=== PATIENT | female | born 1975 | race African-American/Black ===

== ENCOUNTER 2017-01-18 00:11 | Inpatient (IN) | payer MEDICAID ==
[2017-01-18] VITALS (21 sets, daily range): BP systolic 91–158; BP diastolic 60–102
[~2017-01-18] VITALS: Ht 182.9 cm; Wt 59.0 kg
[2017-01-18 01:03] LABS: ABG PCO2 26.2 mmHg (35.0-45.0)
[2017-01-18 01:03] LABS: MEAN CORPUSCULAR HEMOGLOBIN 29.6 PG (27.0-31.0); MEAN CORPUSCULAR HGB CONC 31.7 G/DL (32.0-36.0); MEAN CORPUSCULAR VOLUME 93 FL (80-99); MEAN PLATELET VOLUME 7.9 FL (6.5-10.1); PLATELET COUNT 343 K/UL (150-450); RED BLOOD COUNT 3.91 M/UL (4.20-5.40); RED CELL DISTRIBUTION WIDTH 13.1 % (11.6-14.8); WHITE BLOOD COUNT 14.2 K/UL (4.8-10.8)
[2017-01-18 01:04] LABS: ABG ALLEN TEST POSITIVE; ABG BASE EXCESS -8.1
[2017-01-18 01:15] LABS: APPEARANCE,URINE CLEAR; KETONES,URINE 4+ (NEGATIVE); LEUKOCYTE ESTERASE ,URINE NEGATIVE (NEGATIVE); NITRITE,URINE NEGATIVE (NEGATIVE); PH,URINE 5 (4.5-8.0); UROBILINOGEN,URINE NORMAL MG/DL (0.0-1.0)
[2017-01-18 01:20] LABS: PROTEIN,URINE NEGATIVE (NEGATIVE)
[2017-01-18 01:21] LABS: ALBUMIN/GLOBULIN RATIO 0.8 (1.0-2.7); CALCIUM 10.5 mg/dL (8.6-10.2); CREATININE 1.5 mg/dL (0.5-0.9); GLOMERULAR FILTRATION RATE 46.9 mL/min (>60); POTASSIUM 5.5 mEQ/L (3.4-4.9); TOTAL PROTEIN 9.1 g/dL (6.6-8.7)
--- NOTE | 2017-01-18 03:32 | Emergency Room Report ---
History of Present Illness General Chief Complaint: Abdominal Pain Source: Patient, Family Member, EMS Present Illness HPI Is a 41-year-old female with history of diabetes, currently on insulin. She was in [place] for 5 years. She has multiple admission to the hospital for uncontrolled diabetes and DKA. According to her father, she [facility]. Her elderly and can't take care of her anymore. This is why she moves back to [place] to live with her parents. She presents with chief complaint of abdominal pain with vomiting. Unable to keep anything down for 3 days. No diarrhea. Has not taking her medicine. Denies any other complaint. Multiple admissions for the same. Denies any alcohol drugs. Pain is 10 out of 10. Cramping in nature. Allergies: Coded Allergies: No Known Allergies (Verified , NONE, 10/30/05) Patient History Past Medical History: DM Past Surgical History: other Pertinent Family History: none Social History: Reports: drug use - history of Now: No Immunizations: other Reviewed Nursing Documentation: PMH: Agreed, PSxH: Agreed Nursing Documentation-PMH Hx Diabetes: Yes Hx Gastrointestinal Problems: Yes - PANCREATITIS Review of Systems Eye: Denies: blurred vision, eye pain ENT: Denies: ear pain, nose congestion, throat swelling Respiratory: Denies: cough, shortness of breath Cardiovascular: Denies: chest pain, palpitations Gastrointestinal: Reports: abdominal pain, nausea, vomiting, Denies: diarrhea Musculoskeletal: Denies: back pain, joint pain Skin: Denies: rash Neurological: Denies: headache, numbness Endocrine: Denies: increased thirst, increased urine Hematologic/Lymphatic: Denies: easy bruising All Other Systems: negative except mentioned in HPI Physical Exam Vital Signs Date Time Temp Pulse Resp B/P Pulse Ox O2 Delivery O2 Flow Rate FiO2 01/18/17 00:19 98.2 93 18 135/91 97 Room Air vitals normal Sp02 EP Interpretation: reviewed, normal General Appearance: no apparent distress, alert, Chronically Ill Head: normocephalic, atraumatic Eyes: bilateral eye EOMI, bilateral eye PERRL ENT: hearing grossly normal, normal pharynx Neck: full range of motion, supple, no meningismus Respiratory: chest non-tender, lungs clear, normal breath sounds Cardiovascular #1: regular rate, rhythm, no murmur Gastrointestinal: normal bowel sounds, no mass, no organomegaly, no bruit, non- distended, tenderness - Diffuse Musculoskeletal: back normal, gait/station normal, normal range of motion Psychiatric: mood/affect normal Skin: warm/dry Medical Decision Making Diagnostic Impression: Primary Impression: Hyperglycemia due to type 1 diabetes mellitus Additional Impressions: Metabolic acidosis Dehydration, severe Abdominal pain Qualified Codes: R10.84 - Generalized abdominal pain Gastroparesis due to DM Intractable vomiting with nausea Qualified Codes: R11.2 - Nausea with vomiting, unspecified Anemia in chronic illness Acute hyperkalemia ER Course Patient presents exacerbation of chronic abdominal pain with vomiting. Her blood sugars extremely high. This is probably secondary to gastroparesis. She is acidotic from vomiting and dehydration. She's hyperglycemic. However she is not in DKA. PH is normal. Blood sugar came down with insulin. We'll repeat chemistry after IV fluid. Prognosis is poor probably secondary to noncompliance and questionable drug use. She has a history of cocaine. Her drug screen is negative here however. This may be the fact that she just came from [place] yesterday. According to her father, she is in the hospital every week. I see no evidence of acute abdomen, obstruction, infection to name a few. Will admit for the hospital for further hydration and blood sugar control. She may need to be admitted to half-way if she is unable to care for herself or her family unable to care for her. Laboratory Tests Test 01/18/17 00:50 01/18/17 01:00 01/18/17 01:04 White Blood Count 14.2 K/UL (4.8-10.8) H Red Blood Count 3.91 M/UL (4.20-5.40) L Hemoglobin 11.6 G/DL (12.0-16.0) L Hematocrit 36.5 % (37.0-47.0) L Mean Corpuscular Volume 93 FL (80-99) Mean Corpuscular Hemoglobin 29.6 PG (27.0-31.0) Mean Corpuscular Hemoglobin Concent 31.7 G/DL (32.0-36.0) L Red Cell Distribution Width 13.1 % (11.6-14.8) Platelet Count 343 K/UL (150-450) Mean Platelet Volume 7.9 FL (6.5-10.1) Neutrophils (%) (Auto) % (45.0-75.0) Lymphocytes (%) (Auto) % (20.0-45.0) Monocytes (%) (Auto) % (1.0-10.0) Eosinophils (%) (Auto) % (0.0-3.0) Basophils (%) (Auto) % (0.0-2.0) Sodium Level 140 mEQ/L (135-145) Potassium Level 5.5 mEQ/L (3.4-4.9) H Chloride Level 88 mEQ/L (98-107) L Carbon Dioxide Level 17 mEQ/L (20-30) L Anion Gap 35 (5-15) H Blood Urea Nitrogen 20 mg/dL (7-23) Creatinine 1.5 mg/dL (0.5-0.9) H Estimat Glomerular Filtration Rate 46.9 mL/min (>60) Glucose Level 605 mg/dL (74-106) *H Calcium Level 10.5 mg/dL (8.6-10.2) H Total Bilirubin 0.5 mg/dL (0.0-1.2) Aspartate Amino Transf (AST/SGOT) 12 U/L (5-40) Alanine Aminotransferase (ALT/SGPT) 8 U/L (3-33) Alkaline Phosphatase 153 U/L (35-104) H Total Protein 9.1 g/dL (6.6-8.7) H Albumin 4.3 g/dL (3.5-5.2) Globulin 4.8 g/dL Albumin/Globulin Ratio 0.8 (1.0-2.7) L Lipase 7 U/L (< 60) Arterial Blood pH 7.380 (7.350-7.450) Arterial Blood Partial Pressure CO2 26.2 mmHg (35.0-45.0) L Arterial Blood Partial Pressure O2 78.7 mmHg (75.0-100.0) Arterial Blood HCO3 15.4 mmol/L (22.0-26.0) L Arterial Blood Oxygen Saturation 94.5 % (92.0-98.0) Arterial Blood Base Excess -8.1 Michael Test Positive Urine Color Pale yellow Urine Appearance Clear Urine pH 5 (4.5-8.0) Urine Specific [place] 1.010 (1.005-1.035) Urine Protein Negative (NEGATIVE) Urine Glucose (UA) 4+ (NEGATIVE) H Urine Ketones 4+ (NEGATIVE) H Urine Occult Blood Negative (NEGATIVE) Urine Nitrite Negative (NEGATIVE) Urine Bilirubin Negative (NEGATIVE) Urine Urobilinogen Normal MG/DL (0.0-1.0) Urine Leukocyte Esterase Negative (NEGATIVE) Urine HCG, Qualitative Negative Urine Opiates Screen Negative (NEGATIVE) Urine Barbiturates Screen Negative (NEGATIVE) Phencyclidine (PCP) Screen Negative (NEGATIVE) Urine Amphetamines Screen Negative (NEGATIVE) Urine Benzodiazepines Screen Negative (NEGATIVE) Urine Cocaine Screen Negative (NEGATIVE) Urine Marijuana (THC) Screen Negative (NEGATIVE) Lab Results Impression labs with acidosis and hyperglycemia EKG Diagnostic Results Rate: normal Rhythm: NSR ST Segments: no acute changes Rhythm Strip Diag. Results EP Interpretation: yes Rate: 92 Rhythm: NSR, no PVC's, no ectopy Chest X-Ray Diagnostic Results EP Interpretation: Yes Findings: no consolidation, no effusion, no pneumothorax, no acute cardiopulmonary disease Number of Views: 1 Last Vital Signs Date Time Temp Pulse Resp B/P Pulse Ox O2 Delivery O2 Flow Rate FiO2 01/18/17 02:22 97.5 91 18 139/86 96 Room Air Status: improved Disposition: ADMITTED INPATIENT Condition: Critical Referrals: NOT CHOSEN IPA/,REFERRING (PCP) LETICIA MORENO M.D. Jan 18, 2017 03:32
[2017-01-18] MEDS ORDERED: Potassium Chloride 10 MEQ in NS 1000ml 1,000 ML IV SCH (04:45)
[2017-01-18 05:17] LABS: CALCIUM 9.2 mg/dL (8.6-10.2); CARBON DIOXIDE 13 mEQ/L (20-30); CHLORIDE 101 mEQ/L (98-107); CREATININE 1.2 mg/dL (0.5-0.9); GLOMERULAR FILTRATION RATE > 60 mL/min (>60); HEMOLYSIS 9; SODIUM 145 mEQ/L (135-145)
[2017-01-18 05:36] LABS: ANION GAP 31 (5-15); POTASSIUM 7.8 mEQ/L (3.4-4.9)
[2017-01-18] MEDS ORDERED: UNOBMED (05:37)
[2017-01-18] MEDS ORDERED: Calcium Gluconate 1gm/10ml vial IVP ONE (05:45)
[2017-01-18] MEDS ORDERED: Sodium Polystyrene Sulfonate 15gm Powder ORAL ONE (05:45)
[2017-01-18] MEDS ORDERED: Sodium Bicarbonate 8.4% 50ml Inj IV ONE (05:45)
[2017-01-18] MEDS ORDERED: Insulin Rate Change 1 Each MISC PRN (08:00)
--- NOTE | 2017-01-18 09:32 | History & Physical ---
History and Physical History & Physicial .[facility] # [id number] KISHORE RICKETTS Jan 18, 2017 09:32
[2017-01-18 10:25] LABS: HEMOGLOBIN A1C 10.5 % (< 6.0)
[2017-01-18 10:35] LABS: CALCIUM 9.9 mg/dL (8.6-10.2); CREATININE 1.3 mg/dL (0.5-0.9); GLOMERULAR FILTRATION RATE 55.3 mL/min (>60); POTASSIUM 4.5 mEQ/L (3.4-4.9)
[2017-01-18] MEDS: Levofloxacin 500mg tab ORAL SCH (10:57)
--- NOTE | 2017-01-18 10:57 | Diagnostic Imaging Report ---
Indication: Chest Pain Comparison: 02/27/12 A single view chest radiograph was obtained. Findings: Cardiomediastinal appearance is within normal limits for age. Pulmonary vascularity is appropriate. The diaphragmatic contour is smooth and costophrenic angles are sharp. No pleural effusions are identified. The bones are unremarkable. [place] foreign bodies projected over the right shoulder and chest wall. Impression: No acute findings
[2017-01-18] MEDS ORDERED: LORazepam Inj 2mg/ml 1ml ONE (12:44)
[2017-01-18] MEDS: D5 1/2NS 1,000 ML IV SCH (14:03)
[2017-01-18] MEDS: LORazepam Inj 2mg/ml 1ml IV PRN ×3 (14:03→22:20)
--- NOTE | 2017-01-18 17:28 | History and Physical Report ---
DATE OF ADMISSION: 01/18/2017 CHIEF COMPLAINT: Diarrhea and not able to eat. HISTORY OF PRESENT ILLNESS: This is a 41-year-old female with history of type 1 diabetes mellitus. She is on insulin, she does not know the dose of the insulin and is a poor historian . Apparently, she moved to [place] to be with the family prior to that she was in [place] and reportedly in another group home. She said that she has not been able to eat for the past three days. She complained of abdominal pain as well as vomiting and also diarrhea. She said she takes her insulin, but the ER notes states that she was not taking it. In any event, the patient was seen in the emergency room and was found to have initial blood sugar of 605, with a BUN of 20, creatinine 1.5, potassium was 5.5, and bicarbonate was 17. The following laboratories blood count, hemoglobin was low at 13. She had ABG, which showed pH 7.3, pCO2 of 26, and pO2 of 78. The patient toxicology screen was negative. The patient was diagnosed with uncontrolled diabetes and was started on insulin drip and admitted to intensive care unit although looking at the records I think this is diabetic ketoacidosis. PAST MEDICAL HISTORY: The patient denies any other medical problems, except diabetes. ALLERGIES: No known drug allergies. SOCIAL HISTORY: The patient smokes a pack a day. No history of alcohol abuse. REVIEW OF SYSTEMS: As above. PHYSICAL EXAMINATION: GENERAL: The patient is a cachectic looking female and does not talk too much. VITAL SIGNS: Blood pressure 158/81, pulse 92, temperature 98.0 degrees, and respiratory rate is 22. HEENT: [employer] conjunctivae. Anicteric sclerae. NECK: Supple. LUNGS: Clear to auscultation. HEART: S1, S2 without murmurs or rubs. ABDOMEN: Soft and nontender. EXTREMITIES: No cyanosis or edema. LABORATORY FINDINGS: CBC shows WBC of 14.2, hematocrit 36.2, hemoglobin is 11.6, and platelets 343,000. Chemistry panel shows serum sodium 145, potassium 7.8, chloride 101, CO2 13, BUN 19, creatinine 1.2, blood sugar is 353, and calcium is 9.2. ASSESSMENT: This is a 41-year-old female who was admitted with diabetic ketoacidosis ( the ER physician did not think the patient as diabetic ketoacidosis). The patient has an elevated anion gap although. The pH is not very acidotic. There is some respiratory compensation and pCO2 is down. I think likely the patient has metabolic acidosis. The patient has also acute renal failure as a result of prerenal azotemia. She had a potassium level, which was 7.8, but it is likely not related to values, there was hemolysis of 7.8, which I am not sure is correct because initial was 5.5, and the patient was on insulin so I expect the potassium to go down and not up. PLAN: The patient will be on IV fluids. She is currently on IV insulin per protocol. Once the blood sugar drops below 300, we will switch her to D5 half-normal saline and we will continue the insulin until the anion gap is closed and also the patient has some leukocytosis and cough so she may have some acute bronchitis. We will start on Levaquin and the case was discussed with the RN. Simon Oneill M.D. DR: Tanvi JOB#: [id number] CC: ALICIA
[2017-01-18] MEDS: Insulin Rate Change 1 Each MISC PRN ×6 (18:08→23:04)
[2017-01-18 18:45] LABS: ANION GAP 29 (5-15); CALCIUM 9.6 mg/dL (8.6-10.2); CARBON DIOXIDE 17 mEQ/L (20-30); CHLORIDE 104 mEQ/L (98-107); CREATININE 1.2 mg/dL (0.5-0.9); GLOMERULAR FILTRATION RATE > 60 mL/min (>60); HEMOLYSIS 4; POTASSIUM 4.1 mEQ/L (3.4-4.9); SODIUM 150 mEQ/L (135-145)
[2017-01-19] VITALS (28 sets, daily range): BP systolic 92–168; BP diastolic 35–102
[2017-01-19] MEDS: D5 1/2NS 1,000 ML IV SCH ×4 (00:18→22:10)
[2017-01-19] MEDS: Insulin Rate Change 1 Each MISC PRN ×15 (00:26→22:16)
[2017-01-19 05:49] LABS: CALCIUM 9.5 mg/dL (8.6-10.2); CREATININE 1.3 mg/dL (0.5-0.9); GLOMERULAR FILTRATION RATE 55.3 mL/min (>60)
[2017-01-19 06:01] LABS: ANION GAP 25 (5-15); CALCIUM 9.5 mg/dL (8.6-10.2); CARBON DIOXIDE 20 mEQ/L (20-30); CHLORIDE 106 mEQ/L (98-107); CREATININE 1.2 mg/dL (0.5-0.9); GLOMERULAR FILTRATION RATE > 60 mL/min (>60); HEMOLYSIS 2; MAGNESIUM 1.4 mg/dL (1.7-2.5); PHOSPHORUS 2.5 mg/dL (2.5-4.8); SODIUM 151 mEQ/L (135-145)
[2017-01-19] MEDS: Levofloxacin 500mg tab ORAL SCH (09:30)
--- NOTE | 2017-01-19 14:31 | General Progress Note ---
Assessment/Plan Problem List: (1) ARF (acute renal failure) ICD Codes: N17.9 - Acute kidney failure, unspecified SNOMED: 57013978 (2) DKA (diabetic ketoacidoses) ICD Codes: E13.10 - Other specified diabetes mellitus with ketoacidosis without coma SNOMED: 79078843, 007621511 (3) Intractable vomiting with nausea ICD Codes: R11.2 - Nausea with vomiting, unspecified SNOMED: 959909837, 625033141 Qualifiers: Qualified Codes: R11.2 - Nausea with vomiting, unspecified (4) Gastroparesis due to DM ICD Codes: E11.43 - Type 2 diabetes mellitus with diabetic autonomic (poly) neuropathy; K31.84 - Gastroparesis SNOMED: 583777877, 41881119 (5) Dehydration, severe ICD Codes: E86.0 - Dehydration SNOMED: 113458598, 723734087 Assessment/Plan change to algorithm 2 increase IVF Discussed with RN Subjective Allergies: Coded Allergies: No Known Allergies (Verified , NONE, 10/30/05) Subjective still nauseated Objective Last 24 Hour Vital Signs Date Time Temp Pulse Resp B/P Pulse Ox O2 Delivery O2 Flow Rate FiO2 01/19/17 14:01 90 19 121/81 99 Room Air 01/19/17 13:00 98.0 89 19 147/99 99 Room Air 01/19/17 12:00 95 01/19/17 12:00 93 16 159/102 99 Room Air 01/19/17 11:00 95 15 160/100 99 Room Air 01/19/17 10:08 93 18 139/89 99 Room Air 01/19/17 09:00 88 18 107/44 99 Room Air 01/19/17 08:45 94 18 104/47 96 Room Air 01/19/17 08:30 95 18 112/65 96 Room Air 01/19/17 08:15 91 18 109/66 96 Room Air 01/19/17 08:00 88 01/19/17 08:00 98.2 88 18 142/85 96 Room Air 01/19/17 07:00 91 18 111/65 96 Room Air 01/19/17 06:23 92 18 147/90 96 Room Air 01/19/17 06:00 92 18 140/90 96 Room Air 01/19/17 05:00 86 18 140/90 96 Room Air 01/19/17 04:00 88 18 126/85 96 Room Air 01/19/17 03:00 87 18 110/80 96 Room Air 01/19/17 02:00 83 18 95/72 96 Room Air 01/19/17 01:00 95 18 164/100 96 Room Air 01/19/17 00:00 85 01/19/17 00:00 98.2 94 18 107/82 96 Room Air 01/18/17 23:07 80 18 91/60 96 Room Air 01/18/17 22:00 91 18 143/85 98 Room Air 01/18/17 21:00 95 18 132/98 98 Room Air 01/18/17 20:30 96 01/18/17 20:00 98.2 96 20 146/78 98 Room Air 01/18/17 19:04 97 20 143/82 98 Room Air 01/18/17 18:02 99 20 147/89 98 Room Air 01/18/17 17:00 99 20 132/82 98 Room Air 01/18/17 16:00 98.0 99 20 135/69 98 Room Air 01/18/17 15:00 99 20 147/102 98 Room Air Intake and Output 01/18/17 01/19/17 19:00 07:00 Intake Total 1012.4 ml 1218.0 ml Output Total 2960 ml 1060 ml Balance -1947.6 ml 158.0 ml Intake Oral 0 ml 0 ml IV Total 1012.4 ml 1218.0 ml Output Urine Total 2960 ml 1060 ml # Bowel Movements 1 Laboratory Tests 01/18/17 18:08: Sodium Level 150H, Potassium Level 4.1, Chloride Level 104, Carbon Dioxide Level 17L, Anion Gap 29H, Blood Urea Nitrogen 15, Creatinine 1.2H, Estimat Glomerular Filtration Rate > 60, Glucose Level 233H, Calcium Level 9.6 01/19/17 04:10: Sodium Level 151H, Potassium Level 3.0L, Chloride Level 106, Carbon Dioxide Level 20, Anion Gap 25H, Blood Urea Nitrogen 14, Creatinine 1.2H, Estimat Glomerular Filtration Rate > 60, Glucose Level 236H, Calcium Level 9.5, Phosphorus Level 2.5, Magnesium Level 1.4L, Albumin 3.6 Height (Feet): 6 Height (Inches): 6.00 Weight (Pounds): 130 Cardiovascular: normal rate Respiratory/Chest: lungs clear KISHORE RICKETTS Jan 19, 2017 14:31
[2017-01-19] MEDS ORDERED: D5 1/2NS 1000ml IV ONE (16:20)
[2017-01-19] MEDS ORDERED: Tubing IV Secondary IV ONE (16:20)
[2017-01-19] MEDS: LORazepam Inj 2mg/ml 1ml IV PRN (17:22)
[2017-01-19 21:06] LABS: ANION GAP 17 (5-15); CALCIUM 9.3 mg/dL (8.6-10.2); CARBON DIOXIDE 26 mEQ/L (20-30); CHLORIDE 107 mEQ/L (98-107); CREATININE 1.1 mg/dL (0.5-0.9); GLOMERULAR FILTRATION RATE > 60 mL/min (>60); HEMOLYSIS 12; POTASSIUM 2.9 mEQ/L (3.4-4.9); SODIUM 150 mEQ/L (135-145)
[2017-01-20] VITALS (18 sets, daily range): BP systolic 104–182; BP diastolic 16–106
[2017-01-20] MEDS: Insulin Rate Change 1 Each MISC PRN ×3 (00:08→04:15)
[2017-01-20] MEDS: D5 1/2NS 1,000 ML IV SCH ×2 (04:20→05:17)
[2017-01-20 05:01] LABS: ANION GAP 18 (5-15); CALCIUM 8.6 mg/dL (8.6-10.2); CARBON DIOXIDE 24 mEQ/L (20-30); CHLORIDE 102 mEQ/L (98-107); GLOMERULAR FILTRATION RATE > 60 mL/min (>60); HEMOLYSIS 8; POTASSIUM 3.1 mEQ/L (3.4-4.9); SODIUM 144 mEQ/L (135-145)
[2017-01-20] MEDS: Levofloxacin 500mg tab ORAL SCH (09:10)
[2017-01-20] MEDS ORDERED: Levemir Flexpen SUBQ SCH (10:30)
[2017-01-20] MEDS ORDERED: D5 1/2NS 1000ml IV ONE (10:50)
[2017-01-20] MEDS: LORazepam Inj 2mg/ml 1ml IV PRN (11:23)
[2017-01-20] MEDS: NovoLOG Insulin Flexpen SUBQ SCH ×5 (11:30→21:00)
--- NOTE | 2017-01-20 13:28 | General Progress Note ---
Assessment/Plan Problem List: (1) ARF (acute renal failure) ICD Codes: N17.9 - Acute kidney failure, unspecified SNOMED: 78217571 (2) DKA (diabetic ketoacidoses) ICD Codes: E13.10 - Other specified diabetes mellitus with ketoacidosis without coma SNOMED: 57219531, 257159000 (3) Intractable vomiting with nausea ICD Codes: R11.2 - Nausea with vomiting, unspecified SNOMED: 438267943, 952705500 Qualifiers: Qualified Codes: R11.2 - Nausea with vomiting, unspecified (4) Gastroparesis due to DM ICD Codes: E11.43 - Type 2 diabetes mellitus with diabetic autonomic (poly) neuropathy; K31.84 - Gastroparesis SNOMED: 294524261, 15619414 (5) Dehydration, severe ICD Codes: E86.0 - Dehydration SNOMED: 676606570, 010962892 Assessment/Plan DC IV isulin DC IVF SSI start Levemir Replete K Discussed with RN Subjective Allergies: Coded Allergies: No Known Allergies (Verified , NONE, 10/30/05) Subjective feels better Objective Last 24 Hour Vital Signs Date Time Temp Pulse Resp B/P Pulse Ox O2 Delivery O2 Flow Rate FiO2 01/20/17 12:58 79 17 158/94 100 Room Air 01/20/17 12:26 76 172/106 01/20/17 12:22 71 13 172/106 100 Room Air 01/20/17 12:03 73 01/20/17 11:52 97.1 72 19 182/104 100 Room Air 01/20/17 11:06 80 19 165/103 100 Room Air 01/20/17 10:08 78 18 100 Room Air 01/20/17 09:03 72 13 154/92 100 Room Air 01/20/17 07:58 70 01/20/17 07:56 97.5 70 15 158/97 100 Room Air 01/20/17 07:06 68 14 161/90 99 Room Air 01/20/17 06:00 71 14 153/89 99 Room Air 01/20/17 05:00 75 14 144/83 99 Room Air 01/20/17 04:00 98.0 70 14 140/78 99 Room Air 01/20/17 04:00 73 01/20/17 03:00 74 14 140/101 99 Room Air 01/20/17 02:00 75 14 123/77 99 Room Air 01/20/17 01:00 73 14 122/76 99 Room Air 01/20/17 00:00 98.0 83 16 160/106 99 Room Air 01/20/17 00:00 79 01/19/17 23:00 82 14 166/102 99 Room Air 01/19/17 22:00 85 23 92/35 100 Room Air 01/19/17 21:00 87 14 166/102 99 Room Air 01/19/17 20:00 97.6 88 13 149/89 99 Room Air 01/19/17 20:00 88 01/19/17 19:00 88 22 168/101 93 Room Air 01/19/17 18:00 92 17 127/94 97 Room Air 01/19/17 17:00 97 20 163/93 93 Room Air 01/19/17 16:00 97.2 80 13 126/73 99 Room Air 01/19/17 16:00 80 01/19/17 15:00 89 19 122/71 99 Room Air 01/19/17 14:01 90 19 121/81 99 Room Air Intake and Output 01/19/17 01/20/17 19:00 07:00 Intake Total 861.7 ml 2517.61 ml Output Total 565 ml 465 ml Balance 296.7 ml 2052.61 ml Intake Oral 0 ml 50 ml IV Total 861.7 ml 2467.61 ml Output Urine Total 565 ml 415 ml Emesis 50 ml Laboratory Tests 01/19/17 20:35: Sodium Level 150H, Potassium Level 2.9L, Chloride Level 107, Carbon Dioxide Level 26, Anion Gap 17H, Blood Urea Nitrogen 11, Creatinine 1.1H, Estimat Glomerular Filtration Rate > 60, Glucose Level 94#, Calcium Level 9.3 01/20/17 04:00: Sodium Level 144, Potassium Level 3.1L, Chloride Level 102, Carbon Dioxide Level 24, Anion Gap 18H, Blood Urea Nitrogen 10, Creatinine 1.0H, Estimat Glomerular Filtration Rate > 60, Glucose Level 133H, Calcium Level 8.6 Height (Feet): 6 Height (Inches): 6.00 Weight (Pounds): 130 Cardiovascular: normal rate Respiratory/Chest: lungs clear KISHORE RICKETTS Jan 20, 2017 13:27
[2017-01-20] MEDS ORDERED: Metoclopramide 10mg/2ml Inj IVP SCH (14:00)
[2017-01-20] MEDS: Metoclopramide 10mg/2ml Inj IVP SCH (21:37)
[2017-01-20] MEDS ORDERED: LORazepam Inj 2mg/ml 1ml IV PRN (22:00)
[2017-01-21] VITALS: BP 128/87
[2017-01-21 04:00] VITALS: BP 130/90
[2017-01-21] MEDS: Metoclopramide 10mg/2ml Inj IVP SCH ×2 (05:59→14:14)
[2017-01-21] MEDS: NovoLOG Insulin Flexpen SUBQ SCH ×4 (05:59→12:01)
[2017-01-21] MEDS ORDERED: Levemir Flexpen SUBQ SCH (06:30)
[2017-01-21 07:02] LABS: ANION GAP 15 (5-15); CALCIUM 9.3 mg/dL (8.6-10.2); CARBON DIOXIDE 31 mEQ/L (20-30); CHLORIDE 99 mEQ/L (98-107); GLOMERULAR FILTRATION RATE > 60 mL/min (>60); HEMOLYSIS 1; SODIUM 145 mEQ/L (135-145)
[2017-01-21 08:15] VITALS: BP 115/93
[2017-01-21] MEDS ORDERED: Levofloxacin 500mg tab ORAL SCH (09:00)
[2017-01-21] MEDS ORDERED: LEVEMIR FL100 UNIT/1 SUBQ (11:38)
[2017-01-21] MEDS ORDERED: NOVOLOG100 UNITS1 SUBQ (11:38)
[2017-01-21] MEDS ORDERED: NORVASC5 MG ORAL (11:38)
[2017-01-21 12:00] VITALS: BP 132/93
--- NOTE | 2017-01-22 23:43 | Cardiology Report ---
APPROVED REPORT EKG Measurement Heart [id number] Normal sinus rhythm Left anterior fascicular block Incomplete RBBB Prolonged QT Abnormal ECG
--- NOTE | 2017-01-23 10:37 | Discharge Summary ---
Discharge Summary Hospital Course Date of Admission Jan 18, 2017 at 07:15 Date of Discharge Jan 21, 2017 at 14:30 Admitting Diagnosis Hyperkalemia, diabetes,dehydration HPI Amaya Wallis is a 41 year old female who was admitted on Jan 18, 2017 at 07:15 for Hyperkalemia,Diabetes,Dehydration Hospital Course [id number] Discharge Discharge Disposition Patient was discharged to Home () Discharge Diagnoses: Estefania Balderas NP Jan 23, 2017 10:37
--- NOTE | 2017-01-24 01:00 | Discharge Summary 2 SIG ---
DATE OF ADMISSION: 01/18/2017 DATE OF DISCHARGE: 01/21/2017 BRIEF HOSPITAL COURSE: The patient is a 41-year-old female with history of diabetes mellitus and on insulin. Apparently, she just moved to [place]. She has not been able to eat for the past three days. She was previously living in [place]. She presented with abdominal pain as well as vomiting and diarrhea. On evaluation at ED, she was found to have initial blood sugar of 605, BUN 20, creatinine 1.5, potassium was 5.5, and bicarbonate 17. She had low hemoglobin level. ABG with metabolic acidosis. Toxicology screen was negative. She was admitted to ICU for diabetic ketoacidosis and was started on insulin drip. She was given IV hydration. She had leukocytosis and cough and was started on Levaquin. Blood sugars improved. Intravenous insulin was discontinued and was started on subcutaneous Levemir and sliding scale of insulin. Potassium was repeated. The patient was eventually discharged home. FINAL DIAGNOSES: 1. Diabetic ketoacidosis. 2. Acute renal failure. 3. Intractable vomiting with nausea. 4. Gastroparesis due to diabetes mellitus. 5. Severe dehydration. Simon Oneill M.D. I have been assigned to dictate discharge summary on this account and I was not involved in the patient's management. Estefania Balderas N.P. DR: YANG JOB#: [id number] CC: ALICIA
[2017-01-27] MEDS ORDERED: LEVEMIR100 UNIT/1 SUBQ (14:49)
[2017-01-27] MEDS ORDERED: NOVOLOG100 UNITS1 SQ (14:49)
== END 2017-01-21 14:30 | disposition home or self-care (01) | DRG 420 ==
LOC: EDBD 00:11 → EMR 00:46 → UNDOADMIN 03:52 → 4W 03:52 → EDBEDREQ 04:09 → ICU 07:15 → 4E 01-20 17:55
DX: E10.10 Type 1 diabetes mellitus with ketoacidosis without coma (principal); N17.9 Acute kidney failure, unspecified; K31.84 Gastroparesis; E10.43 Type 1 diabetes mellitus with diabetic autonomic (poly)neuropathy; E87.5 Hyperkalemia; E86.0 Dehydration; Z79.4 Long term (current) use of insulin; R11.2 Nausea with vomiting, unspecified; F17.210 Nicotine dependence, cigarettes, uncomplicated; D63.8 Anemia in other chronic diseases classified elsewhere
CPT/HCPCS: 36415; 36600; 71010; 80048; 80053; 80069; 80300; 81003; 81025; 82803; 82962; 83036; 83690; 83735; 85025; 93005; J1815; J2405; J2765; J8499; S5561

== ENCOUNTER 2017-01-23 12:41 | Inpatient (IN) | payer MEDICAID ==
[~2017-01-23] VITALS: Ht 160 cm; Wt 54.4 kg
[~2017-01-23 12:41] MED LIST: LEVEMIR FL100 UNIT/1 SUBQ; NORVASC5 MG ORAL; NOVOLOG100 UNITS1 SUBQ; UNOBMED
[2017-01-23 13:00] VITALS: BP 128/93
[2017-01-23 13:38] LABS: BASOPHILS % (AUTO) 0.8 % (0.0-2.0); EOSINOPHILS % (AUTO) 1.6 % (0.0-3.0); LYMPHOCYTES % (AUTO) 35.9 % (20.0-45.0); MEAN CORPUSCULAR HEMOGLOBIN 28.8 PG (27.0-31.0); MEAN CORPUSCULAR HGB CONC 31.9 G/DL (32.0-36.0); MEAN CORPUSCULAR VOLUME 90 FL (80-99); MEAN PLATELET VOLUME 7.7 FL (6.5-10.1); MONOCYTES % (AUTO) 9.3 % (1.0-10.0); NEUTROPHILS % (AUTO) 52.5 % (45.0-75.0); PLATELET COUNT 308 K/UL (150-450); RED BLOOD COUNT 3.93 M/UL (4.20-5.40); RED CELL DISTRIBUTION WIDTH 13.2 % (11.6-14.8); WHITE BLOOD COUNT 9.5 K/UL (4.8-10.8)
[2017-01-23 13:51] LABS: ALANINE AMINOTRANSFERASE 9 U/L (3-33); ALBUMIN/GLOBULIN RATIO 0.8 (1.0-2.7); ANION GAP 14 (5-15); ASPARTATE AMINO TRANSFERASE 20 U/L (5-40); CALCIUM 9.3 mg/dL (8.6-10.2); CARBON DIOXIDE 29 mEQ/L (20-30); CHLORIDE 99 mEQ/L (98-107); CREATININE 0.9 mg/dL (0.5-0.9); GLOMERULAR FILTRATION RATE > 60 mL/min (>60); HEMOLYSIS 3; MAGNESIUM 1.6 mg/dL (1.7-2.5); POTASSIUM 3.2 mEQ/L (3.4-4.9); SODIUM 142 mEQ/L (135-145); TOTAL PROTEIN 7.1 g/dL (6.6-8.7)
[2017-01-23 14:17] VITALS: BP 138/98
--- NOTE | 2017-01-23 14:19 | Emergency Room Report ---
History of Present Illness General Chief Complaint: General Complaint Source: Patient, Medical Record (NAHOMI DONALDSON M.D.) Present Illness HPI 41-year-old female presents to ED for evaluation. Per EMS patient's mother call 911 because she was altered. Accu-Chek was very low in the 40s. Patient was given D50. Upon arrival patient appears more awake and performed but it appears to confused. Patient has history of diabetes and was just discharged from this hospital recently. Apparently patient Accu-Chek was borderline low but patient took insulin anyways. Upon arrival patient showing no signs of distress. No fevers or chills. No nausea or vomiting. No reported chest pain shortness of breath. No other aggravating or relieving factors. No other associated symptoms (NAHOMI DONALDSON M.D.) Allergies: Coded Allergies: No Known Allergies (Verified , NONE, 10/30/05) Patient History Past Medical History: DM, other - gastroparesis Pertinent Family History: none Social History: Denies: alcohol use, drug use, smoking Last Menstrual Period: unknown Now: No Immunizations: UTD Reviewed Nursing Documentation: PMH: Agreed, PSxH: Agreed (NAHOMI DONALDSON M.D.) Nursing Documentation-PMH Past Medical History: No History, Except For Hx Cardiac Problems: Yes - Anemia Hx Hypertension: Yes Hx Diabetes: Yes - Type 1 DM, DKA Hx Cancer: No Hx Gastrointestinal Problems: Yes - Gastroparesis due to DM Hx Neurological Problems: Yes Hx Vertigo: Yes Hx Dizziness: Yes Hx Headaches: Yes Hx Weakness: Yes Hx Fatigue: Yes Hx Neurologic Surgery: No (NAHOMI DONALDSON M.D.) Review of Systems All Other Systems: negative except mentioned in HPI (NAHOMI DONALDSON M.D.) Physical Exam Vital Signs Date Time Temp Pulse Resp B/P Pulse Ox O2 Delivery O2 Flow Rate FiO2 01/23/17 12:45 68 16 125/75 95 Room Air 01/23/17 13:00 97.6 Sp02 EP Interpretation: reviewed, normal General Appearance: no apparent distress, GCS 15, non-toxic Head: normocephalic, atraumatic Eyes: bilateral eye PERRL, bilateral eye normal inspection ENT: hearing grossly normal, normal pharynx, no angioedema, normal voice Neck: full range of motion, supple/symm/no masses Respiratory: chest non-tender, lungs clear, normal breath sounds, speaking full sentences Cardiovascular #1: regular rate, rhythm, no edema Cardiovascular #2: 2+ carotid (R), 2+ carotid (L), 2+ radial (R), 2+ radial (L) , 2+ dorsalis pedis (R), 2+ dorsalis pedis (L) Gastrointestinal: normal bowel sounds, non tender, soft, non-distended, no guarding, no rebound Rectal: deferred Genitourinary: normal inspection, no CVA tenderness Musculoskeletal: back normal, gait/station normal, normal range of motion, non- tender Neurologic: sensory intact, other - confused Psychiatric: other - confused Reflexes: 3+ bicep (R), 3+ bicep (L), 3+ tricep (R), 3+ tricep (L), 3+ knee (R) , 3+ knee (L) Skin: normal color, no rash, warm/dry, well hydrated Lymphatic: no adenopathy (NAHOMI DONALDSON M.D.) Medical Decision Making Diagnostic Impression: Primary Impression: Hypoglycemia Additional Impression: Hypothermia Qualified Codes: T68.XXXA - Hypothermia, initial encounter ER Course I agree with above history and assessment. Repeat glucose 276. Patient admitted to Dr. Arana. Temp recently taken. Hypothermic. Warming measures undertaken. Laboratory Tests Test 01/23/17 13:27 01/23/17 13:40 White Blood Count 9.5 K/UL (4.8-10.8) Red Blood Count 3.93 M/UL (4.20-5.40) L Hemoglobin 11.3 G/DL (12.0-16.0) L Hematocrit 35.5 % (37.0-47.0) L Mean Corpuscular Volume 90 FL (80-99) Mean Corpuscular Hemoglobin 28.8 PG (27.0-31.0) Mean Corpuscular Hemoglobin Concent 31.9 G/DL (32.0-36.0) L Red Cell Distribution Width 13.2 % (11.6-14.8) Platelet Count 308 K/UL (150-450) Mean Platelet Volume 7.7 FL (6.5-10.1) Neutrophils (%) (Auto) 52.5 % (45.0-75.0) Lymphocytes (%) (Auto) 35.9 % (20.0-45.0) Monocytes (%) (Auto) 9.3 % (1.0-10.0) Eosinophils (%) (Auto) 1.6 % (0.0-3.0) Basophils (%) (Auto) 0.8 % (0.0-2.0) Sodium Level 142 mEQ/L (135-145) Potassium Level 3.2 mEQ/L (3.4-4.9) L Chloride Level 99 mEQ/L (98-107) Carbon Dioxide Level 29 mEQ/L (20-30) Anion Gap 14 (5-15) Blood Urea Nitrogen 15 mg/dL (7-23) Creatinine 0.9 mg/dL (0.5-0.9) Estimate Glomerular Filtration Rate > 60 mL/min (>60) Glucose Level 86 mg/dL (74-106) Calcium Level 9.3 mg/dL (8.6-10.2) Magnesium Level 1.6 mg/dL (1.7-2.5) L Total Bilirubin < 0.2 mg/dL (0.0-1.2) Aspartate Amino Transferase (AST) 20 U/L (5-40) Alanine Aminotransferase (ALT) 9 U/L (3-33) Alkaline Phosphatase 100 U/L (35-104) Total Protein 7.1 g/dL (6.6-8.7) Albumin 3.3 g/dL (3.5-5.2) L Globulin 3.8 g/dL Albumin/Globulin Ratio 0.8 (1.0-2.7) L Serum Alcohol < 10 mg/dL Acetone Level Negative (NEGATIVE) Urine Color Pale yellow Urine Appearance Clear Urine pH 6 (4.5-8.0) Urine Specific [place] 1.010 (1.005-1.035) Urine Protein 2+ (NEGATIVE) H Urine Glucose (UA) 4+ (NEGATIVE) H Urine Ketones 1+ (NEGATIVE) H Urine Occult Blood 1+ (NEGATIVE) H Urine Nitrite Negative (NEGATIVE) Urine Bilirubin Negative (NEGATIVE) Urine Urobilinogen 1 MG/DL (0.0-1.0) H Urine Leukocyte Esterase 1+ (NEGATIVE) H Urine RBC 2-4 /HPF (0 - 2) H Urine WBC 2-4 /HPF (0 - 2) Urine Squamous Epithelial Cells Few /LPF (NONE/OCC) Urine Bacteria Few /HPF (NONE) Urine Yeast Few /HPF (NONE) H Urine Opiates Screen Negative (NEGATIVE) Urine Barbiturates Screen Negative (NEGATIVE) Phencyclidine (PCP) Screen Negative (NEGATIVE) Urine Amphetamines Screen Negative (NEGATIVE) Urine Benzodiazepines Screen Negative (NEGATIVE) Urine Cocaine Screen Negative (NEGATIVE) Urine Marijuana (THC) Screen Negative (NEGATIVE) (Koby Mims M.D.) Last Vital Signs Date Time Temp Pulse Resp B/P Pulse Ox O2 Delivery O2 Flow Rate FiO2 01/23/17 13:00 97.6 67 12 128/93 100 Room Air (ANHOMI DONALDSON M.D.) Status: improved (Koby Mims M.D.) Disposition: ADMITTED INPATIENT Condition: Serious Referrals: NON PHYSICIAN (PCP) NAHOMI DONALDSON M.D. Jan 23, 2017 14:19 Koby Mims M.D. Jan 23, 2017 16:55
[2017-01-23 14:27] LABS: APPEARANCE,URINE CLEAR; KETONES,URINE 1+ (NEGATIVE); LEUKOCYTE ESTERASE ,URINE 1+ (NEGATIVE); NITRITE,URINE NEGATIVE (NEGATIVE); PH,URINE 6 (4.5-8.0); PROTEIN,URINE 2+ (NEGATIVE); UROBILINOGEN,URINE 1 MG/DL (0.0-1.0)
[2017-01-23 14:43] LABS: BACTERIA,URINE FEW /HPF; SQUAMOUS EPITHELIAL CELL,UR FEW /LPF (NONE/OCC); YEAST,URINE FEW /HPF
[2017-01-23] MEDS: D5 1/2NS 1,000 ML IV SCH (15:11)
[2017-01-23] MEDS ORDERED: Metoclopramide 10mg/2ml Inj IVP ONE (15:45)
[2017-01-23 16:31] VITALS: BP 93/68
[2017-01-23 17:26] VITALS: BP 124/85
[2017-01-23] MEDS ORDERED: KCl 10% 20 mEq/15ml liquid ORAL STA (17:37)
[2017-01-23] MEDS ORDERED: Mylanta II UD 30ml ORAL PRN (18:00)
[2017-01-23] MEDS ORDERED: Morphine Sulfate 2mg/ml Inj IVP PRN (18:00)
[2017-01-23] MEDS ORDERED: Ketorolac 30mg Inj IV PRN (18:00)
[2017-01-23] MEDS ORDERED: Nitroglycerin Subl 0.4mg tab (Bottle Of 25) SL PRN (18:00)
[2017-01-23] MEDS ORDERED: Miralax 17gm pkt ORAL PRN (18:00)
[2017-01-23] MEDS ORDERED: DuoNeb 0.5-3(2.5)mg/3ml neb HHN PRN (18:00)
[2017-01-23 19:00] VITALS: BP 147/100
[2017-01-23] MEDS: Heparin 5000 units/ml inj SUBQ SCH (21:28)
[2017-01-23] MEDS: NovoLOG Insulin Flexpen SUBQ SCH (21:29)
[2017-01-24] VITALS: BP 130/93
[2017-01-24] MEDS: Levemir Flexpen SUBQ SCH ×2 (00:49→20:54)
[2017-01-24] MEDS: D5 1/2NS 1,000 ML IV SCH ×3 (01:00→21:00)
[2017-01-24 04:00] VITALS: BP 119/72
[2017-01-24 06:27] LABS: BASOPHILS % (AUTO) 0.6 % (0.0-2.0); EOSINOPHILS % (AUTO) 1.8 % (0.0-3.0); LYMPHOCYTES % (AUTO) 36.3 % (20.0-45.0); MEAN CORPUSCULAR HEMOGLOBIN 29.3 PG (27.0-31.0); MEAN CORPUSCULAR VOLUME 92 FL (80-99); MEAN PLATELET VOLUME 7.9 FL (6.5-10.1); MONOCYTES % (AUTO) 4.6 % (1.0-10.0); NEUTROPHILS % (AUTO) 56.7 % (45.0-75.0); PLATELET COUNT 307 K/UL (150-450); RED BLOOD COUNT 3.68 M/UL (4.20-5.40); RED CELL DISTRIBUTION WIDTH 13.2 % (11.6-14.8)
[2017-01-24] MEDS ORDERED: NovoLOG Insulin Flexpen SUBQ SCH (06:30)
[2017-01-24] MEDS: NovoLOG Insulin Flexpen SUBQ SCH ×7 (06:43→21:00)
[2017-01-24 06:45] LABS: HEMOGLOBIN A1C 11.3 % (< 6.0)
[2017-01-24 06:58] LABS: THYROID STIMULATING HORMONE 0.389 uIU/mL (0.300-4.500)
[2017-01-24 07:03] LABS: ALANINE AMINOTRANSFERASE 6 U/L (3-33); ALBUMIN/GLOBULIN RATIO 0.8 (1.0-2.7); ANION GAP 17 (5-15); ASPARTATE AMINO TRANSFERASE 14 U/L (5-40); CARBON DIOXIDE 24 mEQ/L (20-30); CHLORIDE 95 mEQ/L (98-107); CHOLESTEROL 123 mg/dL (< 200); CHOLESTEROL/HDL RATIO 6.8 (3.3-4.4); GLOMERULAR FILTRATION RATE > 60 mL/min (>60); HEMOLYSIS 8; LDL CHOLESTEROL (CALC.) 64 mg/dL (60-99); POTASSIUM 4.9 mEQ/L (3.4-4.9); SODIUM 136 mEQ/L (135-145); TOTAL PROTEIN 6.6 g/dL (6.6-8.7)
[2017-01-24 07:31] VITALS: BP 111/81
[2017-01-24] MEDS: Heparin 5000 units/ml inj SUBQ SCH ×2 (08:54→20:58)
--- NOTE | 2017-01-24 10:00 | Consultation ---
DATE OF CONSULTATION: 01/24/2017 ENDOCRINOLOGY CONSULTATION: REFERRING PHYSICIAN: Rickie Vera M.D. REASON FOR CONSULTATION: Diabetes management. HISTORY OF PRESENT ILLNESS: The patient is a 41-year-old female with history of type 1 diabetes who was brought to [facility] by paramedics with hypoglycemia and neuroglycopenic symptoms. The patient's blood glucose was 40. 911 was called. She was given D50 and became more alert, but she is confused. The patient did not have any signs of distress. She is on insulin as an outpatient. PAST MEDICAL HISTORY: 1. Diabetes. 2. Gastroparesis. 3. DKA. PAST SURGICAL HISTORY: Unknown. SOCIAL HISTORY: No smoking, alcohol, or drug use. FAMILY HISTORY: Noncontributory. REVIEW OF SYSTEMS: As per HPI. PHYSICAL EXAMINATION: VITAL SIGNS: Blood pressure 119/72, respiration 18, heart rate 80, and temperature 97.9 degrees. HEENT: Pupils are equal and reactive to light and accommodation. Sclerae are anicteric. NECK: No JVD. No thyromegaly. LUNGS: Clear. HEART: Regular rate and rhythm. ABDOMEN: Positive bowel sounds. EXTREMITIES: Trace edema. LABORATORY DATA: Sodium 142, potassium 3.6, chloride 99, BUN 15, and creatinine 0.9. DIAGNOSES: 1. Insulin dependent diabetes. 2. Hypoglycemia. 3. Hyperglycemia. 4. Diabetes out of control. PLAN: 1. Levemir 15 units at bedtime. 2. NovoLog 5 units before each meal. 3. NovoLog sliding scale. 4. Further adjustment according to the blood glucose values. Thank you for the courtesy of this consultation. Bertin Alejo M.D. DR: Tory JOB#: [id number] CC: ALICIA
[2017-01-24 11:43] VITALS: BP 102/76
--- NOTE | 2017-01-24 12:06 | Consultation ---
History of Present Illness General Date patient seen: Jan 24, 2017 Time patient seen: 10:30 Chief Complaint: General Complaint Referring physician: dr Arana Reason for Consultation: internal medicine management Present Illness HPI 41-year-old female presented to ED for evaluation. Patient's mother called 911 because the patient was altered. Accu-Chek at that time was very low, in the 40s. Patient was given D50. Upon arrival to ED patient appeared more awake but still confused. Patient with history of diabetes type 1, and DKA patient was recently discharged from this hospital per patient , Accu-Chek was borderline low , but patient nevertheless took insulin Upon arrival to ED patient showed no signs of distress. denied fevers , chills. denied chest pain, shortness of breath, palpitations, dizziness,. diaphoresis Allergies: Coded Allergies: No Known Allergies (Verified , NONE, 10/30/05) Medication History Scheduled Amlodipine Besylate (Norvasc), 5 MG ORAL DAILY Insulin Aspart (Novolog Flexpen), 5 UNITS SUBQ NOVOTIAC Insulin Detemir (Levemir Flexpen), 12 UNITS SUBQ Q24H Miscellaneous Medications Unable to Obtain Medications (Unable To Obtain Meds), Unknown Dose, (Reported) Patient History History Provided By: Patient Healthcare decision maker Resuscitation status Full Code Advanced Directive on File Past Medical/Surgical History Past Medical/Surgical History: (1) Anemia (2) Diabetes Review of Systems Constitutional: Reports: no symptoms Eye: Reports: no symptoms ENT: Reports: no symptoms Respiratory: Reports: no symptoms Cardiovascular: Reports: no symptoms Gastrointestinal: Reports: no symptoms Genitourinary: Reports: no symptoms Musculoskeletal: Reports: no symptoms Skin: Reports: no symptoms Psychiatric: Reports: no symptoms Neurological: Reports: see HPI Endocrine: Reports: see HPI Hematologic/Lymphatic: Reports: anemia Physical Exam General Appearance: WD/WN, no apparent distress, alert Lines, tubes and drains: peripheral HEENT: normocephalic, atraumatic, anicteric, mucous membranes moist Neck: non-tender, supple Respiratory/Chest: lungs clear, no respiratory distress, no accessory muscle use Cardiovascular/Chest: normal peripheral pulses, normal rate, regular rhythm, no JVD Abdomen: normal bowel sounds, non tender, soft Skin Exam: normal pigmentation, warm/dry Neurologic: no motor/sensory deficits, alert, oriented x 3, responsive, normal mood/affect Musculoskeletal: normal muscle bulk Last 24 Hour Vital Signs Date Time Temp Pulse Resp B/P Pulse Ox O2 Delivery O2 Flow Rate FiO2 01/24/17 11:43 97.7 83 14 102/76 99 Room Air 01/24/17 08:49 85 111/81 01/24/17 08:00 84 18 Room Air 21 01/24/17 07:31 97.5 85 15 111/81 98 Room Air 01/24/17 04:00 97.9 80 18 119/72 97 Room Air 01/24/17 00:00 98.2 85 18 130/93 98 Room Air 01/23/17 19:00 97.0 88 20 147/100 98 Room Air 01/23/17 17:52 95.8 84 16 124/85 96 Room Air 01/23/17 17:26 95.8 84 16 124/85 96 Room Air 01/23/17 16:31 93.4 84 16 93/68 94 Room Air 01/23/17 14:17 70 14 138/98 100 Room Air 01/23/17 13:00 97.6 67 12 128/93 100 Room Air 01/23/17 12:45 68 16 125/75 95 Room Air Intake and Output 01/23/17 01/24/17 19:00 07:00 Intake Total 600 ml Balance 600 ml Intake Oral 500 ml IV Total 100 ml # Voids 1 8 # Bowel Movements 2 Laboratory Tests Test 01/23/17 13:27 01/23/17 13:40 01/24/17 04:50 White Blood Count 9.5 K/UL (4.8-10.8) 9.0 K/UL (4.8-10.8) Red Blood Count 3.93 M/UL (4.20-5.40) L 3.68 M/UL (4.20-5.40) L Hemoglobin 11.3 G/DL (12.0-16.0) L 10.8 G/DL (12.0-16.0) L Hematocrit 35.5 % (37.0-47.0) L 33.7 % (37.0-47.0) L Mean Corpuscular Volume 90 FL (80-99) 92 FL (80-99) Mean Corpuscular Hemoglobin 28.8 PG (27.0-31.0) 29.3 PG (27.0-31.0) Mean Corpuscular Hemoglobin Concent 31.9 G/DL (32.0-36.0) L 32.0 G/DL (32.0-36.0) Red Cell Distribution Width 13.2 % (11.6-14.8) 13.2 % (11.6-14.8) Platelet Count 308 K/UL (150-450) 307 K/UL (150-450) Mean Platelet Volume 7.7 FL (6.5-10.1) 7.9 FL (6.5-10.1) Neutrophils (%) (Auto) 52.5 % (45.0-75.0) 56.7 % (45.0-75.0) Lymphocytes (%) (Auto) 35.9 % (20.0-45.0) 36.3 % (20.0-45.0) Monocytes (%) (Auto) 9.3 % (1.0-10.0) 4.6 % (1.0-10.0) Eosinophils (%) (Auto) 1.6 % (0.0-3.0) 1.8 % (0.0-3.0) Basophils (%) (Auto) 0.8 % (0.0-2.0) 0.6 % (0.0-2.0) Sodium Level 142 mEQ/L (135-145) 136 mEQ/L (135-145) Potassium Level 3.2 mEQ/L (3.4-4.9) L 4.9 mEQ/L (3.4-4.9) # Chloride Level 99 mEQ/L (98-107) 95 mEQ/L (98-107) L Carbon Dioxide Level 29 mEQ/L (20-30) 24 mEQ/L (20-30) Anion Gap 14 (5-15) 17 (5-15) H Blood Urea Nitrogen 15 mg/dL (7-23) 14 mg/dL (7-23) Creatinine 0.9 mg/dL (0.5-0.9) 1.0 mg/dL (0.5-0.9) H Estimat Glomerular Filtration Rate > 60 mL/min (>60) > 60 mL/min (>60) Glucose Level 86 mg/dL (74-106) 341 mg/dL (74-106) #H Calcium Level 9.3 mg/dL (8.6-10.2) 9.0 mg/dL (8.6-10.2) Magnesium Level 1.6 mg/dL (1.7-2.5) L 1.8 mg/dL (1.7-2.5) Total Bilirubin < 0.2 mg/dL (0.0-1.2) < 0.2 mg/dL (0.0-1.2) Aspartate Amino Transf (AST/SGOT) 20 U/L (5-40) 14 U/L (5-40) Alanine Aminotransferase (ALT/SGPT) 9 U/L (3-33) 6 U/L (3-33) Alkaline Phosphatase 100 U/L (35-104) 94 U/L (35-104) Total Protein 7.1 g/dL (6.6-8.7) 6.6 g/dL (6.6-8.7) Albumin 3.3 g/dL (3.5-5.2) L 3.1 g/dL (3.5-5.2) L Globulin 3.8 g/dL 3.5 g/dL Albumin/Globulin Ratio 0.8 (1.0-2.7) L 0.8 (1.0-2.7) L Serum Alcohol < 10 mg/dL Acetone Level Negative (NEGATIVE) Urine Color Pale yellow Urine Appearance Clear Urine pH 6 (4.5-8.0) Urine Specific Tucker 1.010 (1.005-1.035) Urine Protein 2+ (NEGATIVE) H Urine Glucose (UA) 4+ (NEGATIVE) H Urine Ketones 1+ (NEGATIVE) H Urine Occult Blood 1+ (NEGATIVE) H Urine Nitrite Negative (NEGATIVE) Urine Bilirubin Negative (NEGATIVE) Urine Urobilinogen 1 MG/DL (0.0-1.0) H Urine Leukocyte Esterase 1+ (NEGATIVE) H Urine RBC 2-4 /HPF (0 - 2) H Urine WBC 2-4 /HPF (0 - 2) Urine Squamous Epithelial Cells Few /LPF (NONE/OCC) Urine Bacteria Few /HPF (NONE) Urine Yeast Few /HPF (NONE) H Urine Opiates Screen Negative (NEGATIVE) Urine Barbiturates Screen Negative (NEGATIVE) Phencyclidine (PCP) Screen Negative (NEGATIVE) Urine Amphetamines Screen Negative (NEGATIVE) Urine Benzodiazepines Screen Negative (NEGATIVE) Urine Cocaine Screen Negative (NEGATIVE) Urine Marijuana (THC) Screen Negative (NEGATIVE) Hemoglobin A1c 11.3 % (< 6.0) H Triglycerides Level 207 mg/dL (< 150) H Cholesterol Level 123 mg/dL (< 200) LDL Cholesterol 64 mg/dL (60-99) HDL Cholesterol 18 mg/dL (> 60) Cholesterol/HDL Ratio 6.8 (3.3-4.4) H Thyroid Stimulating Hormone (TSH) 0.389 uIU/mL (0.300-4.500) Microbiology Date/Time Source Procedure Growth Status 01/23/17 13:40 Urine,Clean Catch Urine Culture - Preliminary NO GROWTH Resulted Height (Feet): 5 Height (Inches): 3.00 Weight (Pounds): 120 Medications Current Medications Medications (Trade) Dose Ordered Sig/Mateo Route PRN Reason Start Time Stop Time Status Last Admin Dose Admin Acetaminophen (Tylenol) 650 mg Q4H PRN ORAL fever 01/23/17 18:00 02/22/17 17:59 Al Hydroxide/Mg Hydroxide (Mylanta II) 30 ml Q6H PRN ORAL dyspepsia 01/23/17 18:00 02/22/17 17:59 Albuterol/ Ipratropium (DuoNeb 0.5-3(2.5)mg/3ml) 3 ml Q4H PRN HHN Shortness of Breath 01/23/17 18:00 01/28/17 17:59 Amlodipine Besylate (Norvasc) 5 mg DAILY ORAL 01/24/17 09:00 02/23/17 08:59 Clonidine HCl (Catapres) 0.1 mg Q4H PRN ORAL sbp more than 160 01/23/17 18:00 02/22/17 17:59 Dextrose (Dextrose 50%) STAT PRN IV Hypoglycemia 01/23/17 18:00 02/22/17 17:59 Dextrose/Sodium Chloride (D5 0.45% NS) 1,000 ml @ 100 mls/hr Q10H IV 01/23/17 15:00 02/22/17 14:59 01/23/17 15:11 Heparin Sodium (Porcine) (Heparin 5000 units/ml) 5,000 units EVERY 12 HOURS SUBQ 01/23/17 21:00 02/22/17 20:59 01/24/17 08:54 Insulin Aspart (NovoLOG) BEFORE MEALS AND HS SUBQ 01/23/17 21:00 02/22/17 20:59 01/24/17 06:43 Insulin Aspart (NovoLOG) 5 units TID@0800,1200,1700 SUBQ 01/24/17 08:00 02/23/17 06:29 01/24/17 09:30 Insulin Detemir (Levemir) 15 units BEDTIME SUBQ 01/23/17 23:30 02/22/17 23:29 01/24/17 00:49 Ketorolac Tromethamine (Toradol 30mg) 30 mg Q6H PRN IV moderate pain 4-6 01/23/17 18:00 01/28/17 17:59 Morphine Sulfate (Morphine Sulfate) 2 mg Q4H PRN IVP severe pain 7-10 01/23/17 18:00 01/30/17 17:59 Nitroglycerin (Ntg) 0.4 mg Q5M X 3 DOSES PRN SL Prn Chest Pain 01/23/17 18:00 02/22/17 17:59 Ondansetron HCl (Zofran) 4 mg Q6H PRN IVP Nausea & Vomiting 01/23/17 18:00 02/22/17 17:59 Polyethylene Glycol (Miralax) 17 gm HSPRN PRN ORAL Constipation 01/23/17 18:00 02/22/17 17:59 Temazepam (Restoril) 15 mg HSPRN PRN ORAL Insomnia 01/23/17 18:00 01/30/17 17:59 Assessment/Plan Assessment/Plan ASSESSMENT acute encephalopathy 2 to episode of hypoglycemia hypoglycemia hypothermia -resolved DM, type 1 hx of DKA anemia HTN electrolyte imbalance ( hypo K,. hypo Mg) hypertriglyceridemia PLAN OF CARE MS floor IVF O2 HHN prn endo eval BS management with short and long acting insulin, HgA1c- 11.3 not at goal TSH WNL UA negative urine tox screen negative acetone negative K and Mg replaced, stable after rewarming in ED, temp up to normal BP management with CCB, optimize as needed , would recommend [facility] lipid panel with elevated TG, stable LDL and TC, educated on low fat low cholesterol diabetic diet DVT prophylaxis i case discussed and evaluated by supervising physician Cailin Carpenter NP (Vanchtein) Jan 24, 2017 12:06
--- NOTE | 2017-01-24 13:59 | Infectious Diseases Prog Note ---
Assessment/Plan Problems: (1) Yeast UTI Assessment & Plan: will send urine culture and start fluconazole for two weeks (2) Hypoglycemia Assessment & Plan: hold diabetes meds, endocrinology is following. (3) Anemia Assessment & Plan: chronic , monitor H/H (4) Diabetes Assessment & Plan: recommend tight glycemic control to keep blood glucose between 80-120 Subjective Allergies: Coded Allergies: No Known Allergies (Verified , NONE, 10/30/05) Objective Vital Signs Last 24 Hour Vital Signs Date Time Temp Pulse Resp B/P Pulse Ox O2 Delivery O2 Flow Rate FiO2 01/24/17 11:43 97.7 83 14 102/76 99 Room Air 01/24/17 08:49 85 111/81 01/24/17 08:00 84 18 Room Air 21 01/24/17 07:31 97.5 85 15 111/81 98 Room Air 01/24/17 04:00 97.9 80 18 119/72 97 Room Air 01/24/17 00:00 98.2 85 18 130/93 98 Room Air 01/23/17 19:00 97.0 88 20 147/100 98 Room Air 01/23/17 17:52 95.8 84 16 124/85 96 Room Air 01/23/17 17:26 95.8 84 16 124/85 96 Room Air 01/23/17 16:31 93.4 84 16 93/68 94 Room Air 01/23/17 14:17 70 14 138/98 100 Room Air Height (Feet): 5 Height (Inches): 3.00 Weight (Pounds): 120 Microbiology Date/Time Source Procedure Growth Status 01/23/17 13:40 Urine,Clean Catch Urine Culture - Preliminary NO GROWTH Resulted Laboratory Tests Test 01/24/17 04:50 White Blood Count 9.0 K/UL (4.8-10.8) Red Blood Count 3.68 M/UL (4.20-5.40) L Hemoglobin 10.8 G/DL (12.0-16.0) L Hematocrit 33.7 % (37.0-47.0) L Mean Corpuscular Volume 92 FL (80-99) Mean Corpuscular Hemoglobin 29.3 PG (27.0-31.0) Mean Corpuscular Hemoglobin Concent 32.0 G/DL (32.0-36.0) Red Cell Distribution Width 13.2 % (11.6-14.8) Platelet Count 307 K/UL (150-450) Mean Platelet Volume 7.9 FL (6.5-10.1) Neutrophils (%) (Auto) 56.7 % (45.0-75.0) Lymphocytes (%) (Auto) 36.3 % (20.0-45.0) Monocytes (%) (Auto) 4.6 % (1.0-10.0) Eosinophils (%) (Auto) 1.8 % (0.0-3.0) Basophils (%) (Auto) 0.6 % (0.0-2.0) Sodium Level 136 mEQ/L (135-145) Potassium Level 4.9 mEQ/L (3.4-4.9) # Chloride Level 95 mEQ/L (98-107) L Carbon Dioxide Level 24 mEQ/L (20-30) Anion Gap 17 (5-15) H Blood Urea Nitrogen 14 mg/dL (7-23) Creatinine 1.0 mg/dL (0.5-0.9) H Estimat Glomerular Filtration Rate > 60 mL/min (>60) Glucose Level 341 mg/dL (74-106) #H Hemoglobin A1c 11.3 % (< 6.0) H Calcium Level 9.0 mg/dL (8.6-10.2) Magnesium Level 1.8 mg/dL (1.7-2.5) Total Bilirubin < 0.2 mg/dL (0.0-1.2) Aspartate Amino Transf (AST/SGOT) 14 U/L (5-40) Alanine Aminotransferase (ALT/SGPT) 6 U/L (3-33) Alkaline Phosphatase 94 U/L (35-104) Total Protein 6.6 g/dL (6.6-8.7) Albumin 3.1 g/dL (3.5-5.2) L Globulin 3.5 g/dL Albumin/Globulin Ratio 0.8 (1.0-2.7) L Triglycerides Level 207 mg/dL (< 150) H Cholesterol Level 123 mg/dL (< 200) LDL Cholesterol 64 mg/dL (60-99) HDL Cholesterol 18 mg/dL (> 60) Cholesterol/HDL Ratio 6.8 (3.3-4.4) H Thyroid Stimulating Hormone (TSH) 0.389 uIU/mL (0.300-4.500) Current Medications Medications (Trade) Dose Ordered Sig/Mateo Route PRN Reason Start Time Stop Time Status Last Admin Dose Admin Acetaminophen (Tylenol) 650 mg Q4H PRN ORAL fever 01/23/17 18:00 02/22/17 17:59 Al Hydroxide/Mg Hydroxide (Mylanta II) 30 ml Q6H PRN ORAL dyspepsia 01/23/17 18:00 02/22/17 17:59 Albuterol/ Ipratropium (DuoNeb 0.5-3(2.5)mg/3ml) 3 ml Q4H PRN HHN Shortness of Breath 01/23/17 18:00 01/28/17 17:59 Amlodipine Besylate (Norvasc) 5 mg DAILY ORAL 01/24/17 09:00 02/23/17 08:59 Clonidine HCl (Catapres) 0.1 mg Q4H PRN ORAL sbp more than 160 01/23/17 18:00 02/22/17 17:59 Dextrose (Dextrose 50%) STAT PRN IV Hypoglycemia 01/23/17 18:00 02/22/17 17:59 Dextrose/Sodium Chloride (D5 0.45% NS) 1,000 ml @ 100 mls/hr Q10H IV 01/23/17 15:00 02/22/17 14:59 01/24/17 12:22 Heparin Sodium (Porcine) (Heparin 5000 units/ml) 5,000 units EVERY 12 HOURS SUBQ 01/23/17 21:00 02/22/17 20:59 01/24/17 08:54 Insulin Aspart (NovoLOG) BEFORE MEALS AND HS SUBQ 01/23/17 21:00 02/22/17 20:59 01/24/17 12:24 Insulin Aspart (NovoLOG) 5 units TID@0800,1200,1700 SUBQ 01/24/17 08:00 02/23/17 06:29 01/24/17 12:24 Insulin Detemir (Levemir) 15 units BEDTIME SUBQ 01/23/17 23:30 02/22/17 23:29 01/24/17 00:49 Ketorolac Tromethamine (Toradol 30mg) 30 mg Q6H PRN IV moderate pain 4-6 01/23/17 18:00 01/28/17 17:59 Morphine Sulfate (Morphine Sulfate) 2 mg Q4H PRN IVP severe pain 7-10 01/23/17 18:00 01/30/17 17:59 Nitroglycerin (Ntg) 0.4 mg Q5M X 3 DOSES PRN SL Prn Chest Pain 01/23/17 18:00 02/22/17 17:59 Ondansetron HCl (Zofran) 4 mg Q6H PRN IVP Nausea & Vomiting 01/23/17 18:00 02/22/17 17:59 Polyethylene Glycol (Miralax) 17 gm HSPRN PRN ORAL Constipation 01/23/17 18:00 02/22/17 17:59 Temazepam (Restoril) 15 mg HSPRN PRN ORAL Insomnia 01/23/17 18:00 01/30/17 17:59 Choco Lozada M.D. Jan 24, 2017 13:59
[2017-01-24 16:00] VITALS: BP 103/79
--- NOTE | 2017-01-24 17:11 | Nephrology Progress Note ---
Subjective Subjective Consult dictated # [id number] Objective Objective Last 24 Hour Vital Signs Date Time Temp Pulse Resp B/P Pulse Ox O2 Delivery O2 Flow Rate FiO2 01/24/17 16:00 97.0 86 20 103/79 100 Room Air 01/24/17 11:43 97.7 83 14 102/76 99 Room Air 01/24/17 08:49 85 111/81 01/24/17 08:00 84 18 Room Air 21 01/24/17 07:31 97.5 85 15 111/81 98 Room Air 01/24/17 04:00 97.9 80 18 119/72 97 Room Air 01/24/17 00:00 98.2 85 18 130/93 98 Room Air 01/23/17 19:00 97.0 88 20 147/100 98 Room Air 01/23/17 17:52 95.8 84 16 124/85 96 Room Air 01/23/17 17:26 95.8 84 16 124/85 96 Room Air Intake and Output 01/23/17 01/24/17 19:00 07:00 Intake Total 600 ml Balance 600 ml Intake Oral 500 ml IV Total 100 ml # Voids 1 8 # Bowel Movements 2 Laboratory Tests 01/24/17 04:50: White Blood Count 9.0, Red Blood Count 3.68L, Hemoglobin 10.8L, Hematocrit 33.7L , Mean Corpuscular Volume 92, Mean Corpuscular Hemoglobin 29.3, Mean Corpuscular Hemoglobin Concent 32.0, Red Cell Distribution Width 13.2, Platelet Count 307, Mean Platelet Volume 7.9, Neutrophils (%) (Auto) 56.7, Lymphocytes (% ) (Auto) 36.3, Monocytes (%) (Auto) 4.6, Eosinophils (%) (Auto) 1.8, Basophils ( %) (Auto) 0.6, Sodium Level 136, Potassium Level 4.9#, Chloride Level 95L, Carbon Dioxide Level 24, Anion Gap 17H, Blood Urea Nitrogen 14, Creatinine 1.0H , Estimat Glomerular Filtration Rate > 60, Glucose Level 341#H, Hemoglobin A1c 11.3H, Calcium Level 9.0, Magnesium Level 1.8, Total Bilirubin < 0.2, Aspartate Amino Transf (AST/SGOT) 14, Alanine Aminotransferase (ALT/SGPT) 6, Alkaline Phosphatase 94, Total Protein 6.6, Albumin 3.1L, Globulin 3.5, Albumin/Globulin Ratio 0.8L, Triglycerides Level 207H, Cholesterol Level 123, LDL Cholesterol 64 , HDL Cholesterol 18, Cholesterol/HDL Ratio 6.8H, Thyroid Stimulating Hormone ( TSH) 0.389 Height (Feet): 5 Height (Inches): 3.00 Weight (Pounds): 120 Grace Ramesh N.P. Jan 24, 2017 17:11
[2017-01-24] MEDS: Fluconazole 100mg tab ORAL SCH (17:23)
[2017-01-24 19:00] VITALS: BP 114/95
[2017-01-24] MEDS ORDERED: Levemir Flexpen SUBQ SCH (21:00)
--- NOTE | 2017-01-24 21:28 | History and Physical Report ---
DATE OF ADMISSION: 01/23/2017 TIME SEEN: At 11 a.m. ATTENDING PHYSICIAN: Brandon Arana D.O. CONSULTANTS: 1. Fred Paz M.D. 2. Bertin Alejo M.D. CHIEF COMPLAINT: Hypoglycemia and weakness. BRIEF HISTORY: This is a 41-year-old female who lives at home with history of diabetes type 1, apparently who had really low sugar. The patient does not remember. Mother called ER, sent to [place], and diagnosed as above, admitted to the medical floor for further treatment. Currently, calm in bed. No complaints. No chest pain. No shortness of breath. No nausea, vomiting, or diarrhea. PAST MEDICAL HISTORY: Include hypertension, diabetes. PAST SURGICAL HISTORY: None. ALLERGIES: Denies. MEDICATIONS: Include Norvasc, Levemir, heparin, DuoNeb, morphine, MiraLax, Zofran, Restoril, Mylanta, nitroglycerin, and Toradol. SOCIAL HISTORY: Positive smoking. No alcohol. No intravenous drug use. FAMILY HISTORY: Noncontributory. PHYSICAL EXAMINATION: GENERAL: Calm in bed, oriented x2, in no acute distress. VITAL SIGNS: Show temperature is 97 degrees, pulse 85, respirations 15, and blood pressure . CARDIOVASCULAR: Distant. No murmur. LUNGS: Poor exchange. ABDOMEN: Positive bowel sounds. Nontender and nondistended. EXTREMITIES: No cyanosis, clubbing, or edema. NEUROLOGIC: Cranial nerves II through XII are grossly intact. Deep tendon reflexes 2+/4. Muscle strength 4/5. LABORATORY DATA: Labs at this time show hemoglobin 10.8, otherwise CBC is normal. Chloride 95, BUN and creatinine 14/1.0, glucose 341. Albumin 3.1. Urinalysis is 1+ leukocyte esterase, positive ketones, and 4+ glucose. Urine toxicology negative. ASSESSMENT: 1. Hypoglycemia. 2. Urinary tract infection. 3. Acute renal failure. 4. Weakness. 5. Diabetes. 6. Hypertension. 7. Anemia. 8. Malnutrition. PLAN: Continue premedications. OT/PT and dietary evaluation. CBC and BMP in the morning. Blood sugar control. Dr. Paz, Dr. Alejo, Dr. White, and Dr. Lozada to consult. We will continue to follow the patient. Brandon Arana D.O. DR: COURTNEY JOB#: [id number] CC:
[2017-01-24] MEDS ORDERED: Tubing IV Secondary IV ONE (22:53)
[2017-01-24] MEDS ORDERED: NS 550ML IV ONE (22:53)
[2017-01-25] VITALS: BP 127/75
--- NOTE | 2017-01-25 00:28 | Consultation ---
DATE OF CONSULTATION: INFECTIOUS DISEASE CONSULTATION REQUESTING PHYSICIAN: Brandon Arana D.O. REASON FOR CONSULTATION: Urinary tract infection with yeast. Recommendation for antifungal medication. HISTORY OF PRESENT ILLNESS: The patient is a 41-year-old female with past medical history of diabetes, was found to be altered and was brought in to [facility] via paramedics after her sugar was found to be 40 at the scene. The patient was given D50. Upon arrival to the emergency room, she was more awake and coherent, but still confused. She was recently discharged from the hospital, unclear whether due to her diabetes. The patient had no fever or chills. No nausea or vomiting. No cough or shortness of breath, but dysuria. She had urinalysis that showed evidence of urine infection. So, I was consulted by the primary provider for antibiotics recommendation and further management. PAST MEDICAL HISTORY: Significant for diabetes and gastroparesis. MEDICATIONS: Please refer to the MAR for further details. ALLERGIES: No known drug allergy. SOCIAL HISTORY: No recent drugs, tobacco, or alcohol. FAMILY HISTORY: Negative. REVIEW OF SYSTEMS: A 12-point of system reviewed were all negative apart from the one I mentioned above in my History and Physical. PHYSICAL EXAMINATION: GENERAL: An young female up in bed, awake and alert, not in distress. VITAL SIGNS: Temperature 97 degrees, pulse 86, respirations 20, blood pressure 103/79, and O2 saturation 100% on room air. HEENT: Normocephalic and atraumatic. Pupils reactive to light. Moist oral mucosa. NECK: Supple. LUNGS: Clear bilaterally. No wheezing. CARDIOVASCULAR: Regular rate and rhythm. ABDOMEN: Soft, obese, nontender, and nondistended. Positive bowel sounds. No hepatosplenomegaly. EXTREMITIES: No edema or cyanosis. LABORATORY AND DIAGNOSTIC DATA: Labs showed white count of 9, hemoglobin of 10.8, hematocrit of 33.7, and platelet count of 307,000. BUN of 14, creatinine of 1, and hemoglobin A1c of 11.3. Urinalysis showed +1 leukocyte esterase and WBC 2 to 4 with few bacteria and yeast. Microbiology, urine culture is pending. Imaging not done. ASSESSMENT AND PLAN: 1. Yeast urinary tract infection. Obtain urine culture and start fluconazole for two weeks course of treatment. 2. Hypoglycemia, improved. Hold diabetes medications. Endocrinology is following. Follow up with Endocrinology. 3. Anemia, chronic. Monitor hemoglobin and hematocrit. Transfuse blood as needed. 4. Diabetes. Recommend tight glycemic control to keep blood glucose between 80 to 120. Choco Lozada M.D. DR: Larry JOB#: [id number] CC:
[2017-01-25 04:00] VITALS: BP 146/98
--- NOTE | 2017-01-25 04:38 | Consultation ---
DATE OF CONSULTATION: 01/24/2017 NEPHROLOGY CONSULTATION REFERRING PHYSICIAN: Brandon Arana D.O. REASON FOR CONSULT: Hypokalemia and elevated creatinine level. HISTORY OF PRESENT ILLNESS: The patient is a pleasant 41-year-old, female with a history of diabetes type 1, who presented to the ER with hypoglycemic episode. At the time of ER visit, the patient's blood sugar was only 40. She was given D50. She was confused in the ER. Denied chest pain. No shortness of breath. Denied fever. No chills. PAST MEDICAL HISTORY: Diabetes type 1, diabetic ketoacidosis and gastroparesis. ALLERGIES: She has no known allergies. MEDICATIONS: Amlodipine, NovoLog pen 5 units before meals, Levemir FlexPen 12 units q.24 hours. SOCIAL HISTORY: The patient lives at home with family. She is a current everyday smoker. Denies any illicit drug use. No history of alcohol use. FAMILY HISTORY: Noncontributory. REVIEW OF SYSTEMS: A full 12-point review of system was reviewed with the patient and positive as stated in history of present illness. PHYSICAL EXAMINATION: VITAL SIGNS: Blood pressure 103/79, heart rate is 86, respiratory rate 20, temperature is 97.0 degrees, and O2 saturation is 100% on room air. HEENT: Head is normocephalic and atraumatic with moist mucous membranes. Pupils are equal, round, and reactive to light and accommodation. NECK: Supple. No jugular venous distention noted. LUNGS: Clear bilaterally. CARDIOVASCULAR: Regular rate and rhythm. S1 and S2. ABDOMEN: Soft, nontender, and nondistended. Positive bowel sounds in all 4 quadrants. EXTREMITIES: No edema. No cyanosis. No clubbing. LABORATORY DATA: CBC; WBC is 9.0, hemoglobin 10.8, hematocrit 33.7, and platelet count of 307,000. BMP; sodium is 136, potassium 4.9, chloride 95, bicarbonate 24, BUN 14, creatinine 1.0, and glucose 341. ASSESSMENT: 1. Hyperkalemia resolved. 2. Elevated creatinine. 3. Anemia of chronic disease. 4. Hypoglycemia. 5. Diabetes type 1. PLAN: Plan is to monitor electrolytes, which is stable at this time. Monitor creatinine level. Monitor blood glucose. Follow up with Endocrinology. Monitor Hemoglobin and hematocrit and transfuse as needed. We will monitor the patient's overall response to treatment. Thank you, Dr. Brandon Arana, for this referral. Rick White M.D. Grace Ramesh DR: FUENTES JOB#: [id number] CC:
[2017-01-25] MEDS: D5 1/2NS 1,000 ML IV SCH (06:15)
[2017-01-25] MEDS: NovoLOG Insulin Flexpen SUBQ SCH ×4 (06:23→12:20)
--- NOTE | 2017-01-25 06:54 | General Progress Note ---
Assessment/Plan Problem List: (1) ARF (acute renal failure) ICD Codes: N17.9 - Acute kidney failure, unspecified SNOMED: 05524234 (2) Hypoglycemia ICD Codes: E16.2 - Hypoglycemia, unspecified SNOMED: 680752565 (3) Anemia ICD Codes: D64.9 - Anemia, unspecified SNOMED: 971286984 (4) Diabetes ICD Codes: E11.9 - Type 2 diabetes mellitus without complications SNOMED: 88677671 Status: stable, progressing, tolerating diet Assessment/Plan ot pt diet bs control abx cbc bmp in am dc plan Subjective Constitutional: Reports: weakness Allergies: Coded Allergies: No Known Allergies (Verified , NONE, 10/30/05) All Systems: reviewed and negative except above Subjective sleepy calm in bed Objective Last 24 Hour Vital Signs Date Time Temp Pulse Resp B/P Pulse Ox O2 Delivery O2 Flow Rate FiO2 01/25/17 04:00 97.7 79 20 146/98 97 Room Air 01/25/17 00:00 98.2 86 18 127/75 97 Room Air 01/24/17 19:54 86 18 Room Air 01/24/17 19:00 99.3 85 20 114/95 99 Room Air 01/24/17 16:00 97.0 86 20 103/79 100 Room Air 01/24/17 11:43 97.7 83 14 102/76 99 Room Air 01/24/17 08:49 85 111/81 01/24/17 08:00 84 18 Room Air 21 01/24/17 07:31 97.5 85 15 111/81 98 Room Air Intake and Output 01/24/17 01/25/17 19:00 07:00 Intake Total 1000 ml 1240 ml Balance 1000 ml 1240 ml Intake Oral 1000 ml 1240 ml # Voids 2 9 # Bowel Movements 1 Height (Feet): 5 Height (Inches): 3.00 Weight (Pounds): 120 General Appearance: lethargic EENT: normal ENT inspection Neck: normal alignment Cardiovascular: normal peripheral pulses, normal rate, regular rhythm Respiratory/Chest: chest wall non-tender, lungs clear, normal breath sounds Abdomen: normal bowel sounds, non tender, soft Extremities: normal inspection Edema: no edema noted Arm (L), no edema noted Arm (R), no edema noted Leg (L), no edema noted Leg (R), no edema noted Pedal (L), no edema noted Pedal (R), no edema noted Generalized Neurologic: responsive, motor weakness Skin: normal pigmentation, warm/dry ENOCH GONZALEZ Jan 25, 2017 06:54
[2017-01-25 07:30] VITALS: BP 147/73
[2017-01-25 08:06] LABS: ANION GAP 14 (5-15); CALCIUM 8.9 mg/dL (8.6-10.2); CARBON DIOXIDE 28 mEQ/L (20-30); CHLORIDE 95 mEQ/L (98-107); CREATININE 1.2 mg/dL (0.5-0.9); GLOMERULAR FILTRATION RATE > 60 mL/min (>60); HEMOLYSIS 10; POTASSIUM 4.2 mEQ/L (3.4-4.9); SODIUM 137 mEQ/L (135-145)
[2017-01-25 08:27] LABS: BASOPHILS % (AUTO) 0.8 % (0.0-2.0); EOSINOPHILS % (AUTO) 2.2 % (0.0-3.0); LYMPHOCYTES % (AUTO) 51.5 % (20.0-45.0); MEAN CORPUSCULAR HEMOGLOBIN 29.3 PG (27.0-31.0); MEAN CORPUSCULAR HGB CONC 31.8 G/DL (32.0-36.0); MEAN CORPUSCULAR VOLUME 92 FL (80-99); MEAN PLATELET VOLUME 8.1 FL (6.5-10.1); MONOCYTES % (AUTO) 6.4 % (1.0-10.0); NEUTROPHILS % (AUTO) 39.1 % (45.0-75.0); PLATELET COUNT 273 K/UL (150-450); RED BLOOD COUNT 3.55 M/UL (4.20-5.40); RED CELL DISTRIBUTION WIDTH 13.4 % (11.6-14.8); WHITE BLOOD COUNT 8.2 K/UL (4.8-10.8)
[2017-01-25] MEDS: Fluconazole 100mg tab ORAL SCH (09:18)
[2017-01-25] MEDS: Heparin 5000 units/ml inj SUBQ SCH (09:21)
[2017-01-25 11:08] VITALS: BP 127/98
--- NOTE | 2017-01-25 13:07 | Pulmonology Progress Note ---
Assessment/Plan Assessment/Plan ASSESSMENT acute encephalopathy 2 to episode of hypoglycemia- hypoglycemia hypothermia -resolved DM, type 1 hx of DKA anemia HTN electrolyte imbalance ( hypo K,. hypo Mg) hypertriglyceridemia elevated creat PLAN OF CARE [facility] floor IVF O2 HHN prn endo eval BS management with short and long acting insulin, HgA1c- 11.3 not at goal TSH WNL urine cx + GPC, start Keflex, fup with final cx urine tox screen negative acetone negative K and Mg replaced, stable after rewarming in ED, temp up to normal BP management with CCB, optimize as needed , lipid panel with elevated TG, stable LDL and TC, educated on low fat low cholesterol diabetic diet DVT prophylaxis nephro follows, avoid nephrotoxic dc plan for am case discussed and evaluated by supervising physician Subjective Allergies: Coded Allergies: No Known Allergies (Verified , NONE, 10/30/05) Subjective awake, BS better creat up to 1.2 Objective Last 24 Hour Vital Signs Date Time Temp Pulse Resp B/P Pulse Ox O2 Delivery O2 Flow Rate FiO2 01/25/17 11:08 97.9 88 16 127/98 100 Room Air 01/25/17 09:24 85 147/73 01/25/17 07:33 85 18 Room Air 01/25/17 07:30 97.9 83 15 147/73 100 Room Air 01/25/17 04:00 97.7 79 20 146/98 97 Room Air 01/25/17 00:00 98.2 86 18 127/75 97 Room Air 01/24/17 19:54 86 18 Room Air 01/24/17 19:00 99.3 85 20 114/95 99 Room Air 01/24/17 16:00 97.0 86 20 103/79 100 Room Air Intake and Output 01/24/17 01/25/17 19:00 07:00 Intake Total 1000 ml 1240 ml Balance 1000 ml 1240 ml Intake Oral 1000 ml 1240 ml # Voids 2 9 # Bowel Movements 1 Objective General Appearance: WD/WN, no apparent distress, alert Lines, tubes and drains: peripheral HEENT: normocephalic, atraumatic, anicteric, mucous membranes moist Neck: non-tender, supple Respiratory/Chest: lungs clear, no respiratory distress, no accessory muscle use Cardiovascular/Chest: normal peripheral pulses, normal rate, regular rhythm, no JVD Abdomen: normal bowel sounds, non tender, soft Skin Exam: normal pigmentation, warm/dry Neurologic: no motor/sensory deficits, alert, oriented x 3, responsive, normal mood/affect Musculoskeletal: normal muscle bulk Microbiology Date/Time Source Procedure Growth Status 01/23/17 13:40 Urine,Clean Catch Urine Culture - Final Gram Positive Cocci Complete Laboratory Tests 01/25/17 06:55: White Blood Count 8.2, Red Blood Count 3.55L, Hemoglobin 10.4L, Hematocrit 32.7L , Mean Corpuscular Volume 92, Mean Corpuscular Hemoglobin 29.3, Mean Corpuscular Hemoglobin Concent 31.8L, Red Cell Distribution Width 13.4, Platelet Count 273, Mean Platelet Volume 8.1, Neutrophils (%) (Auto) 39.1L, Lymphocytes (%) (Auto) 51.5H, Monocytes (%) (Auto) 6.4, Eosinophils (%) (Auto) 2.2, Basophils (%) (Auto) 0.8, Sodium Level 137, Potassium Level 4.2, Chloride Level 95L, Carbon Dioxide Level 28, Anion Gap 14, Blood Urea Nitrogen 19, Creatinine 1.2H, Estimat Glomerular Filtration Rate > 60, Glucose Level 247H, Calcium Level 8.9 Current Medications Medications (Trade) Dose Ordered Sig/Mateo Route PRN Reason Start Time Stop Time Status Last Admin Dose Admin Acetaminophen (Tylenol) 650 mg Q4H PRN ORAL fever 01/23/17 18:00 02/22/17 17:59 Al Hydroxide/Mg Hydroxide (Mylanta II) 30 ml Q6H PRN ORAL dyspepsia 01/23/17 18:00 02/22/17 17:59 Albuterol/ Ipratropium (DuoNeb 0.5-3(2.5)mg/3ml) 3 ml Q4H PRN HHN Shortness of Breath 01/23/17 18:00 01/28/17 17:59 Amlodipine Besylate (Norvasc) 5 mg DAILY ORAL 01/24/17 09:00 02/23/17 08:59 01/25/17 09:24 Clonidine HCl (Catapres) 0.1 mg Q4H PRN ORAL sbp more than 160 01/23/17 18:00 02/22/17 17:59 Dextrose (Dextrose 50%) STAT PRN IV Hypoglycemia 01/23/17 18:00 4/1/17 17:59 Dextrose/Sodium Chloride (D5 0.45% NS) 1,000 ml @ 100 mls/hr Q10H IV 01/23/17 15:00 02/22/17 14:59 01/24/17 12:22 Fluconazole (Diflucan) 200 mg DAILY ORAL 01/24/17 16:00 01/31/17 15:59 01/25/17 09:18 Heparin Sodium (Porcine) (Heparin 5000 units/ml) 5,000 units EVERY 12 HOURS SUBQ 01/23/17 21:00 02/22/17 20:59 01/25/17 09:21 Insulin Aspart (NovoLOG) BEFORE MEALS AND HS SUBQ 01/23/17 21:00 02/22/17 20:59 01/25/17 12:20 Insulin Aspart (NovoLOG) 5 units TID@0800,1200,1700 SUBQ 01/24/17 08:00 02/23/17 06:29 01/25/17 12:19 Insulin Detemir (Levemir) 15 units BEDTIME SUBQ 01/23/17 23:30 02/22/17 23:29 01/24/17 20:54 Ketorolac Tromethamine (Toradol 30mg) 30 mg Q6H PRN IV moderate pain 4-6 01/23/17 18:00 01/28/17 17:59 Morphine Sulfate (Morphine Sulfate) 2 mg Q4H PRN IVP severe pain 7-10 01/23/17 18:00 01/30/17 17:59 Nitroglycerin (Ntg) 0.4 mg Q5M X 3 DOSES PRN SL Prn Chest Pain 01/23/17 18:00 02/22/17 17:59 Ondansetron HCl (Zofran) 4 mg Q6H PRN IVP Nausea & Vomiting 01/23/17 18:00 02/22/17 17:59 Polyethylene Glycol (Miralax) 17 gm HSPRN PRN ORAL Constipation 01/23/17 18:00 02/22/17 17:59 01/25/17 09:17 Temazepam (Restoril) 15 mg HSPRN PRN ORAL Insomnia 01/23/17 18:00 01/30/17 17:59 01/24/17 20:50 Jayden Mauro)Cailin NP 4, 2017 13:07
[2017-01-25] MEDS ORDERED: NOVOLOG100 UNITS1 SUBQ (15:51)
[2017-01-25] MEDS ORDERED: LEVEMIR FL100 UNIT/1 SUBQ (15:51)
[2017-01-25] MEDS ORDERED: Cephalexin 500mg cap ORAL SCH (18:00)
[2017-01-27] MEDS ORDERED: NOVOLOG100 UNITS1 SQ (14:49)
[2017-01-27] MEDS ORDERED: LEVEMIR100 UNIT/1 SUBQ (14:49)
--- NOTE | 2017-01-27 14:49 | Discharge Summary ---
Discharge Summary Hospital Course Date of Admission Jan 23, 2017 at 15:26 Date of Discharge Jan 25, 2017 at 14:00 Admitting Diagnosis hypogylcemia HPI Amaya Wallis is a 41 year old female who was admitted on Jan 23, 2017 at 15:26 for hypoglycemic Hospital Course major gilberto dictated #[id number] Discharge Medications New Medications: Insulin Aspart (Novolog Flexpen) 100 Unit/1 Ml Insuln.pen 5 UNIT SQ AC, #1 SYR Insulin Detemir (Levemir) 100 Unit/1 Ml Vial 15 UNIT SUBQ BEDTIME, #1 VIAL Continued Medications: Amlodipine Besylate (Norvasc) 5 Mg Tablet 5 MG ORAL DAILY for 30 Days, #30 TAB Discontinued Medications: Insulin Aspart (Novolog Flexpen) 100 Unit/1 Ml Insuln.pen 5 UNITS SUBQ NOVOTIAC for 30 Days, #1 EA Insulin Detemir (Levemir Flexpen) 100 Unit/1 Ml Insuln.pen 12 UNITS SUBQ Q24H for 30 Days, #1 EA Discharge Condition Upon Discharge: stable Discharge Disposition Patient was discharged to Home () Discharge Diagnoses: Jayden (Shahnaz)Cailin NP Jan 27, 2017 14:49
== END 2017-01-25 14:00 | disposition home or self-care (01) | DRG 420 ==
LOC: ENRESERVDT → ENRESERVTM → EDBD 12:41 → EMR 13:26 → 4E 15:26 → EDBEDREQ 16:08
DX: E10.649 Type 1 diabetes mellitus with hypoglycemia without coma (principal); G93.40 Encephalopathy, unspecified; N17.9 Acute kidney failure, unspecified; E46 Unspecified protein-calorie malnutrition; E83.42 Hypomagnesemia; B37.49 Other urogenital candidiasis; I10 Essential (primary) hypertension; D63.8 Anemia in other chronic diseases classified elsewhere; Z79.4 Long term (current) use of insulin; R68.0 Hypothermia, not associated with low environmental temperature; E87.6 Hypokalemia; E78.1 Pure hyperglyceridemia
CPT/HCPCS: 36415; 80048; 80053; 80061; 80300; 80329; 81003; 82009; 82962; 83036; 83735; 84443; 85025; 87086; 94664; J1815; J2765; S5561

== ENCOUNTER 2017-01-25 14:46 | Emergency (ER) | payer MEDICAID ==
[~2017-01-25] VITALS: Ht 167.6 cm; Wt 59.0 kg
[2017-01-25] MEDS ORDERED: Loperamide 2mg cap ORAL ONE (15:30)
[2017-01-25 15:51] VITALS: BP_SYST 130; BP_SYST 141; BP_DIAS 93; BP_DIAS 94
[2017-01-25] MEDS ORDERED: LEVEMIR FL100 UNIT/1 SUBQ (15:51)
[2017-01-25] MEDS ORDERED: NOVOLOG100 UNITS1 SUBQ (15:51)
[2017-01-25 15:52] VITALS: BP 127/88
[2017-01-25 16:13] VITALS: BP 127/88
--- NOTE | 2017-01-25 16:14 | Emergency Room Report ---
History of Present Illness General Chief Complaint: General Complaint Source: Patient, Medical Record Present Illness HPI Patient is a 41-year-old female presented after having increased generalized weakness. Patient had recently been discharged from the hospital. Patient had been reportedly out of her insulin. Patient stated that she had not received any prescriptions for insulin at discharge. Patient stated that she had left the hospital approximately one hour prior to arrival. Patient denied any chest pain. She had been hospitalized for low blood sugar. Patient was noted to have prior history of insulin-dependent diabetes. Allergies: Coded Allergies: No Known Allergies (Verified , NONE, 10/30/05) Patient History Past Medical History: see triage record Last Menstrual Period: 2 months ago Reviewed Nursing Documentation: PMH: Agreed, PSxH: Agreed Nursing Documentation-PMH Past Medical History: No History, Except For Hx Cardiac Problems: Yes Hx Hypertension: Yes Hx Diabetes: Yes - DM type 1 Hx Cancer: No Hx Gastrointestinal Problems: Yes - gastroperesis, Pancreatitis Hx Neurological Problems: No Hx Vertigo: Yes Hx Dizziness: Yes Hx Headaches: Yes Hx Weakness: Yes Hx Fatigue: Yes Hx Neurologic Surgery: No Review of Systems All Other Systems: negative except mentioned in HPI Physical Exam Vital Signs Date Time Temp Pulse Resp B/P Pulse Ox O2 Delivery O2 Flow Rate FiO2 01/25/17 14:55 98.1 97 16 116/81 100 Room Air Sp02 EP Interpretation: reviewed, normal General Appearance: normal inspection, well appearing, no apparent distress, alert, GCS 15, non-toxic Head: atraumatic ENT: normal ENT inspection, hearing grossly normal, normal voice Neck: normal inspection, full range of motion, supple, no bony tend Respiratory: normal inspection, lungs clear, normal breath sounds, no respiratory distress, no retraction, no wheezing Cardiovascular #1: regular rate, rhythm, no edema Gastrointestinal: normal inspection, normal bowel sounds, non tender, soft, no guarding, no hernia Genitourinary: no CVA tenderness Musculoskeletal: normal inspection, back normal, normal range of motion Neurologic: normal inspection, alert, responsive, speech normal Psychiatric: normal inspection, judgement/insight normal, mood/affect normal Skin: normal inspection, normal color, no rash Medical Decision Making Diagnostic Impression: Primary Impression: Diabetes ER Course Patient presented for generalized weakness.Patient presented for generalized weakness. Differential diagnosis included was not limited to anemia, urinary tract infection, electrolyte abnormality, hypothyroidism, myocardial infarction , myasthenia gravis, dehydration, among others. Patient's benign exam and does not appear to require any further imaging or laboratory testing at this time. Orthostatic vital signs are negative. The patient's blood sugar. Adequate. Patient was given subcutaneous insulin.The patient is advised to follow up with primary care doctor in 1-2 days. Patient is advised to return if any worsening condition or if any changes in status that are concerning. Patient given a prescription for insulin as well. Last Vital Signs Date Time Temp Pulse Resp B/P Pulse Ox O2 Delivery O2 Flow Rate FiO2 01/25/17 15:52 98.1 88 16 127/88 100 Room Air Status: improved Disposition: HOME, SELF-CARE Condition: Stable Scripts Insulin Detemir (LEVEMIR FLEXPEN) 100 Unit/1 Ml Insuln.pen 12 UNITS SUBQ Q24H for 30 Days, #1 EA Prov: Dhaval King 01/25/17 Insulin Aspart (Novolog Flexpen) 100 Unit/1 Ml Insuln.pen 5 UNITS SUBQ NOVOTIAC for 30 Days, #1 EA Prov: Dhaval King 01/25/17 Referrals: NOT CHOSEN IPA/,REFERRING (PCP) Patient Instructions: Type 1 Diabetes Mellitus, Adult Dhaval King Jan 25, 2017 16:14
[2017-01-25 16:16] VITALS: BP 127/88
[2017-01-27] MEDS ORDERED: LEVEMIR100 UNIT/1 SUBQ (14:49)
[2017-01-27] MEDS ORDERED: NOVOLOG100 UNITS1 SQ (14:49)
--- NOTE | 2017-01-28 13:38 | Discharge Summary 2 SIG ---
DATE OF ADMISSION: 01/25/2017 DATE OF DISCHARGE: 01/25/2017 REASON FOR ADMISSION: v 41-year-old female was presented to the emergency room for evaluation. Per paramedics, the patient mother called 911 because the patient was altered. Accu-Chek was low in 40s. The patient was given D50 upon arrival. The patient appeared to be more awake and able to answer questions but still appeared to be confused. The patient has a history of diabetes and recently was discharged from the hospital. At home. Accu-Chek was borderline low. The patient took insulin anyway . Upon arrival, the patient showed no signs of distress. No fever. No chills. No nausea. No vomiting. She has not reported any chest pain or shortness of breath. The patient was afebrile. Pulse oximetry was stable on room air. She had no leukocytosis. Mild anemia. Potassium - 3.2, glucose - 86 at that time and magnesium was 1.6. The patient was admitted for management of hypoglycemia. The patient was also hypothermic and rewarming measures started in the emergency department. Hypothermia resolved. The patient was admitted for further management of hypoglycemia. ADMITTING DIAGNOSES: 1. Hypoglycemia. 2. Acute encephalopathy secondary to episode of hypoglycemia. 3. Hypothermia/resolved. 4. Diabetes mellitus type 1. HOSPITAL STAY: The patient was admitted to Med/Surg floor. An endocrinology and nephrology evaluation were requested. Per fuel management handler, the patient was started on Levemir at bedtime and short-acting NovoLog premeal as well as NovoLog per sliding scale as needed. Compensation Specialist seen the patient for hypokalemia and elevated creatinine level. Potassium was already replaced. The patient was on the IV fluids. Mental status back to normal. Acute encephalopathy was likely secondary to hypoglycemia, resolved, mental status back to baseline. Supplemental oxygen and pulmonary toilet provided as needed. The patient was initially on the IV fluids. Blood sugar was stable. Hemoglobin A1c is 11.3, not at goal. TSH was stable. Urinalysis negative. Urine toxic screen negative. Acetone level negative. Potassium and magnesium were replaced and were stable. Blood pressure was managed with calcium channel penelope. Lipid panel revealed elevated triglycerides, stable LDL and total cholesterol. The patient was educated on low-fat low-cholesterol diabetic diet. DVT prophylaxis provided. Potassium up to 4.2. Magnesium up to 1.8. Compensation Specialist followed the patient. Recommended to avoid nephrotoxic. Initially recommended LUCA for blood pressure control , However, at this time creatinine - 1.2 would not recommend LUCA until renal parameters/creatinine stable. DISCHARGE DIAGNOSES: 1. Acute encephalopathy 2. Hypothermia , resolved. 3. Diabetes mellitus x1 out of control. 4. History of diabetic ketoacidosis. 5. Anemia. 6. Hypertension. 7. Electrolyte imbalances (hypokalemia and hypomagnesemia). 8. Hypertriglyceridemia. 9. Elevated creatinine. DISCHARGE MEDICATIONS: See medication reconciliation list. DISCHARGE INSTRUCTIONS: The patient to follow up with the primary medical doctor. Reinforce compliance with blood sugar management as prescribed and diabetic diet. . Rickie Vera M.D. I have been assigned to dictate discharge summary on this account and I was not involved in the patient's management. Cailin UribeBertrand Chaffee HospitalJulian N.PHafsa DR: DALIA JOB#: [id number] CC: ALICIA
== END 2017-01-25 16:17 | disposition home or self-care (01) ==
LOC: EMR 16:05
DX: E10.9 Type 1 diabetes mellitus without complications (principal); Z79.4 Long term (current) use of insulin; I10 Essential (primary) hypertension
CPT/HCPCS: 82962; 96372; 99284; J1815

== ENCOUNTER 2017-01-29 15:16 | Inpatient (IN) | payer MEDICAID ==
[~2017-01-29] VITALS: Ht 167.6 cm; Wt 52.6 kg
[~2017-01-29 15:16] MED LIST changes: +LEVEMIR100 UNIT/1 SUBQ; +Morphine Sulfate 4mg/ml Inj IVP ONE; +NOVOLOG100 UNITS1 SQ
[2017-01-29 15:25] VITALS: BP 152/104
[2017-01-29 16:46] LABS: BASOPHILS % (AUTO) 0.7 % (0.0-2.0); EOSINOPHILS % (AUTO) 0.4 % (0.0-3.0); LYMPHOCYTES % (AUTO) 10.2 % (20.0-45.0); MEAN CORPUSCULAR HEMOGLOBIN 29.5 PG (27.0-31.0); MEAN CORPUSCULAR HGB CONC 31.5 G/DL (32.0-36.0); MEAN CORPUSCULAR VOLUME 94 FL (80-99); MEAN PLATELET VOLUME 7.4 FL (6.5-10.1); MONOCYTES % (AUTO) 4.2 % (1.0-10.0); NEUTROPHILS % (AUTO) 84.4 % (45.0-75.0); PLATELET COUNT 364 K/UL (150-450); RED BLOOD COUNT 4.04 M/UL (4.20-5.40); RED CELL DISTRIBUTION WIDTH 13.8 % (11.6-14.8); WHITE BLOOD COUNT 15.8 K/UL (4.8-10.8)
[2017-01-29 17:05] LABS: ALANINE AMINOTRANSFERASE 15 U/L (3-33); ANION GAP 33 (5-15); ASPARTATE AMINO TRANSFERASE 23 U/L (5-40); CALCIUM 10.6 mg/dL (8.6-10.2); CARBON DIOXIDE 21 mEQ/L (20-30); CHLORIDE 84 mEQ/L (98-107); CREATININE 1.5 mg/dL (0.5-0.9); GLOMERULAR FILTRATION RATE 46.9 mL/min (>60); HEMOLYSIS 3; LIPASE 12 U/L (< 60); MAGNESIUM 1.9 mg/dL (1.7-2.5); POTASSIUM 4.3 mEQ/L (3.4-4.9); SODIUM 138 mEQ/L (135-145); TOTAL PROTEIN 8.7 g/dL (6.6-8.7)
[2017-01-29 17:18] LABS: APPEARANCE,URINE CLEAR; KETONES,URINE 3+ (NEGATIVE); LEUKOCYTE ESTERASE ,URINE NEGATIVE (NEGATIVE); NITRITE,URINE NEGATIVE (NEGATIVE); PH,URINE 5 (4.5-8.0); PROTEIN,URINE NEGATIVE (NEGATIVE); UROBILINOGEN,URINE NORMAL MG/DL (0.0-1.0)
[2017-01-29 18:30] VITALS: BP 134/98
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
[2017-01-29 19:30] VITALS: BP 150/98
[2017-01-29 20:45] VITALS: BP 145/98
[2017-01-29] MEDS ORDERED: Morphine Sulfate 2mg/ml Inj IVP PRN (20:45)
[2017-01-29] MEDS ORDERED: Miralax 17gm pkt ORAL PRN (20:45)
[2017-01-29] MEDS ORDERED: DuoNeb 0.5-3(2.5)mg/3ml neb HHN PRN (20:45)
[2017-01-29] MEDS ORDERED: Nitroglycerin Subl 0.4mg tab (Bottle Of 25) SL PRN (20:45)
[2017-01-29] MEDS ORDERED: Ketorolac 30mg Inj IV PRN (20:45)
[2017-01-29] MEDS ORDERED: Mylanta II UD 30ml ORAL PRN (20:45)
[2017-01-29 22:32] VITALS: BP 105/77
[2017-01-29] MEDS: Heparin 5000 units/ml inj SUBQ SCH (23:00)
[2017-01-30] VITALS: BP 124/77
[2017-01-30 04:30] VITALS: BP 188/99
[2017-01-30] MEDS: NovoLOG Insulin Flexpen SUBQ SCH ×7 (06:08→22:00)
[2017-01-30 08:00] VITALS: BP 141/99
[2017-01-30 08:22] LABS: MEAN CORPUSCULAR HEMOGLOBIN 29.6 PG (27.0-31.0); MEAN CORPUSCULAR HGB CONC 31.5 G/DL (32.0-36.0); MEAN CORPUSCULAR VOLUME 94 FL (80-99); MEAN PLATELET VOLUME 8.1 FL (6.5-10.1); PLATELET COUNT 325 K/UL (150-450); RED BLOOD COUNT 3.92 M/UL (4.20-5.40); RED CELL DISTRIBUTION WIDTH 14.3 % (11.6-14.8); WHITE BLOOD COUNT 21.1 K/UL (4.8-10.8)
[2017-01-30 08:45] LABS: THYROID STIMULATING HORMONE 0.388 uIU/mL (0.300-4.500)
[2017-01-30] MEDS: Heparin 5000 units/ml inj SUBQ SCH ×2 (08:45→22:59)
[2017-01-30 08:46] LABS: CALCIUM 9.6 mg/dL (8.6-10.2); CHOLESTEROL/HDL RATIO 6.3 (3.3-4.4); CREATININE 1.3 mg/dL (0.5-0.9); GLOMERULAR FILTRATION RATE 55.3 mL/min (>60); TOTAL PROTEIN 7.8 g/dL (6.6-8.7)
[2017-01-30] MEDS ORDERED: Heparin 2000 units/Ns 1000ml INJ ONE (09:00)
[2017-01-30] MEDS ORDERED: Sodium Bicarbonate 8.4% 50ml Inj IV ONE (09:00)
[2017-01-30] MEDS ORDERED: Lidocaine 1% Plain 30 ml INJ ONE (09:00)
[2017-01-30 09:36] LABS: HEMOGLOBIN A1C 10.9 % (< 6.0)
--- NOTE | 2017-01-30 10:27 | Diagnostic Imaging Report ---
Indication: Abdominal pain Technique: Supine view of the abdomen Comparison: none Findings: Punctate calcifications are seen crossing the upper abdominal midline. Bowel gas pattern is unremarkable. No unusual masses. There are right posterior rib deformities Impression: No acute process Upper midline calcifications likely indicate chronic calcifying pancreatitis
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
[2017-01-30 10:40] LABS: BAND NEUTROPHILS % (MANUAL) 0 % (0-8); BASOPHILS % (MANUAL) 0 % (0-2); EOSINOPHILS % (MANUAL) 0 % (0-3); HYPOCHROMASIA 1+; LYMPHOCYTES % (MANUAL) 14 % (20-45); NEUTROPHILS % (MANUAL) 82 % (45-75); PLATELET ESTIMATE ADEQUATE; PLATELET MORPHOLOGY NORMAL; TOTAL CELLS COUNTED 100
--- NOTE | 2017-01-30 11:13 | General Progress Note ---
Assessment/Plan Problem List: (1) Yeast UTI ICD Codes: B37.49 - Other urogenital candidiasis SNOMED: 024543602 (2) Diabetes ICD Codes: E11.9 - Type 2 diabetes mellitus without complications SNOMED: 90072283 (3) Diabetic hyperosmolar non-ketotic state ICD Codes: E11.00 - Type 2 diabetes mellitus with hyperosmolarity without nonketotic hyperglycemic-hyperosmolar coma ([facility]) SNOMED: 244870563, 46520117 (4) Anemia ICD Codes: D64.9 - Anemia, unspecified SNOMED: 753819034 Status: progressing Assessment/Plan labile and elevated blood glucose treatment per dr ch afebrile no dka reviwed chart and labs Subjective ROS Limited/Unobtainable: Yes Constitutional: Reports: no symptoms Allergies: Coded Allergies: No Known Allergies (Verified , NONE, 10/30/05) Objective Last 24 Hour Vital Signs Date Time Temp Pulse Resp B/P Pulse Ox O2 Delivery O2 Flow Rate FiO2 01/30/17 08:36 109 18 Room Air 21 01/30/17 08:00 98.2 106 17 141/99 98 Room Air 01/30/17 04:30 97.0 108 20 188/99 96 Room Air 01/30/17 04:00 95 01/30/17 00:00 98.0 104 20 124/77 95 Room Air 01/30/17 00:00 101 01/29/17 22:32 97.7 105 20 105/77 98 Room Air 01/29/17 22:30 102 18 Room Air 21 01/29/17 22:17 107 19 127/87 100 Room Air 01/29/17 20:45 108 14 145/98 100 Room Air 01/29/17 19:30 108 19 150/98 100 Room Air 01/29/17 18:30 110 16 134/98 100 Room Air 01/29/17 18:20 98.9 01/29/17 15:25 98.9 110 18 152/104 99 Room Air 01/29/17 15:22 110 18 152/104 99 Room Air Intake and Output 01/29/17 01/30/17 19:00 07:00 Intake Total 1300 ml Balance 1300 ml Intake IV Total 1300 ml # Voids 1 Laboratory Tests 01/29/17 16:30: White Blood Count 15.8H, Red Blood Count 4.04L, Hemoglobin 11.9L, Hematocrit 37.8, Mean Corpuscular Volume 94, Mean Corpuscular Hemoglobin 29.5, Mean Corpuscular Hemoglobin Concent 31.5L, Red Cell Distribution Width 13.8, Platelet Count 364, Mean Platelet Volume 7.4, Neutrophils (%) (Auto) 84.4H, Lymphocytes (%) (Auto) 10.2L, Monocytes (%) (Auto) 4.2, Eosinophils (%) (Auto) 0.4, Basophils (%) (Auto) 0.7, Sodium Level 138, Potassium Level 4.3, Chloride Level 84L, Carbon Dioxide Level 21, Anion Gap 33H, Blood Urea Nitrogen 28H, Creatinine 1.5H, Estimat Glomerular Filtration Rate 46.9, Glucose Level 884*H, Calcium Level 10.6H, Magnesium Level 1.9, Total Bilirubin 0.4, Aspartate Amino Transf (AST/SGOT) 23, Alanine Aminotransferase (ALT/SGPT) 15, Alkaline Phosphatase 116H, Total Protein 8.7, Albumin 4.4, Globulin 4.3, Albumin/ Globulin Ratio 1.0, Lipase 12, Acetone Level Positive-small 01/29/17 16:54: Urine Color Pale yellow, Urine Appearance Clear, Urine pH 5, Urine Specific [place] 1.010, Urine Protein Negative, Urine Glucose (UA) 4+H, Urine Ketones 3+H , Urine Occult Blood Negative, Urine Nitrite Negative, Urine Bilirubin Negative , Urine Urobilinogen Normal, Urine Leukocyte Esterase Negative 01/30/17 05:00: Urine Opiates Screen PositiveH, Urine Barbiturates Screen Negative, Phencyclidine (PCP) Screen Negative, Urine Amphetamines Screen Negative, Urine Benzodiazepines Screen Negative, Urine Cocaine Screen Negative, Urine Marijuana (THC) Screen Negative 01/30/17 06:50: White Blood Count 21.1H, Red Blood Count 3.92L, Hemoglobin 11.6L, Hematocrit 36.9L, Mean Corpuscular Volume 94, Mean Corpuscular Hemoglobin 29.6, Mean Corpuscular Hemoglobin Concent 31.5L, Red Cell Distribution Width 14.3, Platelet Count 325, Mean Platelet Volume 8.1, Neutrophils (%) (Auto) , Lymphocytes (%) (Auto) , Monocytes (%) (Auto) , Eosinophils (%) (Auto) , Basophils (%) (Auto) , Sodium Level 143, Potassium Level 4.0, Chloride Level 90L , Carbon Dioxide Level 23, Anion Gap 30H, Blood Urea Nitrogen 20, Creatinine 1.3H, Estimat Glomerular Filtration Rate 55.3, Glucose Level 499#H, Calcium Level 9.6, Total Bilirubin 0.3, Aspartate Amino Transf (AST/SGOT) 17, Alanine Aminotransferase (ALT/SGPT) 13, Alkaline Phosphatase 103, Total Protein 7.8, Albumin 3.9, Globulin 3.9, Albumin/Globulin Ratio 1.0, Differential Total Cells Counted 100, Neutrophils % (Manual) 82H, Lymphocytes % (Manual) 14L, Monocytes % (Manual) 4, Eosinophils % (Manual) 0, Basophils % (Manual) 0, Band Neutrophils 0, Platelet Estimate Adequate, Platelet Morphology Normal, Hypochromasia 1+, Hemoglobin A1c 10.9H, Triglycerides Level 146, Cholesterol Level 208H, LDL Cholesterol 146H, HDL Cholesterol 33, Cholesterol/HDL Ratio 6.3H , Thyroid Stimulating Hormone (TSH) 0.388 Height (Feet): 5 Height (Inches): 6.00 Weight (Pounds): 116 EENT: PERRL/EOMI Respiratory/Chest: lungs clear Abdomen: soft Rickie Vera MD Jan 30, 2017 11:12
[2017-01-30 12:15] VITALS: BP 143/90
[2017-01-30] MEDS ORDERED: Pneumococcal Vaccine 25mcg/0.5ml IM ONE (13:00)
--- NOTE | 2017-01-30 15:11 | Consultation ---
History of Present Illness General Date patient seen: Jan 30, 2017 Chief Complaint: Abdominal Pain Referring physician: dr Arana Present Illness HPI 41 year old female with hx of DM, chronic pancreatitis brought in by paramedics with CC of nausea/vomiting. Her blood sugar was "high" according to paramedics. Allergies: Coded Allergies: No Known Allergies (Verified , NONE, 10/30/05) Medication History Scheduled Amlodipine Besylate (Norvasc), 5 MG ORAL DAILY Insulin Aspart (Novolog Flexpen), 5 UNIT SQ AC Insulin Detemir (Levemir), 15 UNIT SUBQ BEDTIME Discontinued Medications Insulin Aspart (Novolog Flexpen), 5 UNITS SUBQ NOVOTIAC Discontinued Reason: Medication dose changed Insulin Detemir (Levemir Flexpen), 12 UNITS SUBQ Q24H Discontinued Reason: Medication dose changed Patient History Healthcare decision maker N Resuscitation status Full Code Advanced Directive on File Past Medical/Surgical History Past Medical/Surgical History: (1) Diabetes (2) Anemia Review of Systems All Other Systems: negative except mentioned in HPI Physical Exam General Appearance: WD/WN Lines, tubes and drains: peripheral HEENT: normocephalic, atraumatic Neck: non-tender, normal alignment Respiratory/Chest: chest wall non-tender, lungs clear Breasts: no masses Cardiovascular/Chest: normal peripheral pulses, normal rate Abdomen: normal bowel sounds, non tender Genitourinary/Rectal: normal genital exam Extremities: normal range of motion, non-tender Skin Exam: normal pigmentation 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 grossly normal Last 24 Hour Vital Signs Date Time Temp Pulse Resp B/P Pulse Ox O2 Delivery O2 Flow Rate FiO2 01/30/17 12:15 98.4 103 18 143/90 98 Room Air 01/30/17 11:27 109 141/99 01/30/17 08:36 109 18 Room Air 21 01/30/17 08:00 98.2 106 17 141/99 98 Room Air 01/30/17 04:30 97.0 108 20 188/99 96 Room Air 01/30/17 04:00 95 01/30/17 00:00 98.0 104 20 124/77 95 Room Air 01/30/17 00:00 101 01/29/17 22:32 97.7 105 20 105/77 98 Room Air 01/29/17 22:30 102 18 Room Air 21 01/29/17 22:17 107 19 127/87 100 Room Air 01/29/17 20:45 108 14 145/98 100 Room Air 01/29/17 19:30 108 19 150/98 100 Room Air 01/29/17 18:30 110 16 134/98 100 Room Air 01/29/17 18:20 98.9 01/29/17 15:25 98.9 110 18 152/104 99 Room Air 01/29/17 15:22 110 18 152/104 99 Room Air Intake and Output 01/29/17 01/30/17 19:00 07:00 Intake Total 1300 ml Balance 1300 ml Intake IV Total 1300 ml # Voids 1 Laboratory Tests Test 01/29/17 16:30 01/29/17 16:54 01/30/17 05:00 01/30/17 06:50 White Blood Count 15.8 K/UL (4.8-10.8) H 21.1 K/UL (4.8-10.8) H Red Blood Count 4.04 M/UL (4.20-5.40) L 3.92 M/UL (4.20-5.40) L Hemoglobin 11.9 G/DL (12.0-16.0) L 11.6 G/DL (12.0-16.0) L Hematocrit 37.8 % (37.0-47.0) 36.9 % (37.0-47.0) L Mean Corpuscular Volume 94 FL (80-99) 94 FL (80-99) Mean Corpuscular Hemoglobin 29.5 PG (27.0-31.0) 29.6 PG (27.0-31.0) Mean Corpuscular Hemoglobin Concent 31.5 G/DL (32.0-36.0) L 31.5 G/DL (32.0-36.0) L Red Cell Distribution Width 13.8 % (11.6-14.8) 14.3 % (11.6-14.8) Platelet Count 364 K/UL (150-450) 325 K/UL (150-450) Mean Platelet Volume 7.4 FL (6.5-10.1) 8.1 FL (6.5-10.1) Neutrophils (%) (Auto) 84.4 % (45.0-75.0) H % (45.0-75.0) Lymphocytes (%) (Auto) 10.2 % (20.0-45.0) L % (20.0-45.0) Monocytes (%) (Auto) 4.2 % (1.0-10.0) % (1.0-10.0) Eosinophils (%) (Auto) 0.4 % (0.0-3.0) % (0.0-3.0) Basophils (%) (Auto) 0.7 % (0.0-2.0) % (0.0-2.0) Sodium Level 138 mEQ/L (135-145) 143 mEQ/L (135-145) Potassium Level 4.3 mEQ/L (3.4-4.9) 4.0 mEQ/L (3.4-4.9) Chloride Level 84 mEQ/L (98-107) L 90 mEQ/L (98-107) L Carbon Dioxide Level 21 mEQ/L (20-30) 23 mEQ/L (20-30) Anion Gap 33 (5-15) H 30 (5-15) H Blood Urea Nitrogen 28 mg/dL (7-23) H 20 mg/dL (7-23) Creatinine 1.5 mg/dL (0.5-0.9) H 1.3 mg/dL (0.5-0.9) H Estimat Glomerular Filtration Rate 46.9 mL/min (>60) 55.3 mL/min (>60) Glucose Level 884 mg/dL (74-106) *H 499 mg/dL (74-106) #H Calcium Level 10.6 mg/dL (8.6-10.2) H 9.6 mg/dL (8.6-10.2) Magnesium Level 1.9 mg/dL (1.7-2.5) Total Bilirubin 0.4 mg/dL (0.0-1.2) 0.3 mg/dL (0.0-1.2) Aspartate Amino Transf (AST/SGOT) 23 U/L (5-40) 17 U/L (5-40) Alanine Aminotransferase (ALT/SGPT) 15 U/L (3-33) 13 U/L (3-33) Alkaline Phosphatase 116 U/L (35-104) H 103 U/L (35-104) Total Protein 8.7 g/dL (6.6-8.7) 7.8 g/dL (6.6-8.7) Albumin 4.4 g/dL (3.5-5.2) 3.9 g/dL (3.5-5.2) Globulin 4.3 g/dL 3.9 g/dL Albumin/Globulin Ratio 1.0 (1.0-2.7) 1.0 (1.0-2.7) Lipase 12 U/L (< 60) Acetone Level Positive-small (NEGATIVE) Urine Color Pale yellow Urine Appearance Clear Urine pH 5 (4.5-8.0) Urine Specific [place] 1.010 (1.005-1.035) Urine Protein Negative (NEGATIVE) Urine Glucose (UA) 4+ (NEGATIVE) H Urine Ketones 3+ (NEGATIVE) H Urine Occult Blood Negative (NEGATIVE) Urine Nitrite Negative (NEGATIVE) Urine Bilirubin Negative (NEGATIVE) Urine Urobilinogen Normal MG/DL (0.0-1.0) Urine Leukocyte Esterase Negative (NEGATIVE) Urine Opiates Screen Positive (NEGATIVE) H Urine Barbiturates Screen Negative (NEGATIVE) Phencyclidine (PCP) Screen Negative (NEGATIVE) Urine Amphetamines Screen Negative (NEGATIVE) Urine Benzodiazepines Screen Negative (NEGATIVE) Urine Cocaine Screen Negative (NEGATIVE) Urine Marijuana (THC) Screen Negative (NEGATIVE) Differential Total Cells Counted 100 Neutrophils % (Manual) 82 % (45-75) H Lymphocytes % (Manual) 14 % (20-45) L Monocytes % (Manual) 4 % (1-10) Eosinophils % (Manual) 0 % (0-3) Basophils % (Manual) 0 % (0-2) Band Neutrophils 0 % (0-8) Platelet Estimate Adequate Platelet Morphology Normal Hypochromasia 1+ Hemoglobin A1c 10.9 % (< 6.0) H Triglycerides Level 146 mg/dL (< 150) Cholesterol Level 208 mg/dL (< 200) H LDL Cholesterol 146 mg/dL (60-99) H HDL Cholesterol 33 mg/dL (> 60) Cholesterol/HDL Ratio 6.3 (3.3-4.4) H Thyroid Stimulating Hormone (TSH) 0.388 uIU/mL (0.300-4.500) Height (Feet): 5 Height (Inches): 6.00 Weight (Pounds): 116 Medications Current Medications Medications (Trade) Dose Ordered Sig/Mateo Route PRN Reason Start Time Stop Time Status Last Admin Dose Admin Acetaminophen (Tylenol) 650 mg Q4H PRN ORAL fever 01/29/17 20:45 02/28/17 20:44 Al Hydroxide/Mg Hydroxide (Mylanta II) 30 ml Q6H PRN ORAL dyspepsia 01/29/17 20:45 02/28/17 20:44 Albuterol/ Ipratropium (DuoNeb 0.5-3(2.5)mg/3ml) 3 ml Q4H PRN HHN Shortness of Breath 01/29/17 20:45 02/03/17 20:44 Amlodipine Besylate 5 mg 5 mg DAILY ORAL 01/30/17 09:00 03/01/17 08:59 01/30/17 11:27 Clonidine HCl (Catapres) 0.1 mg Q4H PRN ORAL sbp more than 160 01/29/17 20:45 02/28/17 20:44 Dextrose (Dextrose 50%) STAT PRN IV Hypoglycemia 01/29/17 20:45 02/28/17 20:44 Heparin Sodium (Porcine) (Heparin 5000 units/ml) 5,000 units EVERY 12 HOURS SUBQ 01/29/17 21:00 02/28/17 20:59 Insulin Aspart (NovoLOG) BEFORE MEALS AND HS SUBQ 01/30/17 06:30 03/01/17 06:29 01/30/17 11:30 Ketorolac Tromethamine (Toradol 30mg) 30 mg Q6H PRN IV moderate pain 4-6 01/29/17 20:45 02/03/17 20:44 Morphine Sulfate (Morphine Sulfate) 2 mg Q4H PRN IVP severe pain 7-10 01/29/17 20:45 02/05/17 20:44 Nitroglycerin (Ntg) 0.4 mg Q5M X 3 DOSES PRN SL Prn Chest Pain 01/29/17 20:45 02/28/17 20:44 Ondansetron HCl (Zofran ODT) 4 mg Q6H PRN ORAL Nausea & Vomiting 01/30/17 07:15 03/01/17 07:14 Ondansetron HCl (Zofran) 4 mg Q6H PRN IVP Nausea & Vomiting 01/29/17 20:45 02/28/17 20:44 Polyethylene Glycol (Miralax) 17 gm HSPRN PRN ORAL Constipation 01/29/17 20:45 02/28/17 20:44 Sodium Chloride (Sodium Chloride 1000ml bag) 1,000 ml @ 100 mls/hr Q10H IVLG 01/29/17 21:00 02/28/17 20:59 01/29/17 23:31 Temazepam (Restoril) 15 mg HSPRN PRN ORAL Insomnia 01/29/17 20:45 02/05/17 20:44 Assessment/Plan Problem List: (1) Hyperglycemia ICD Codes: R73.9 - Hyperglycemia, unspecified SNOMED: 09041722 (2) Abnormal white blood cell (WBC) count ICD Codes: D72.9 - Disorder of white blood cells, unspecified SNOMED: 149588508 (3) Intractable nausea and vomiting ICD Codes: R11.2 - Nausea with vomiting, unspecified SNOMED: 107260644, 515814447 Assessment/Plan IV fluids NPO sliding scale GI/endo evaluation MILA LAINEZ Jan 30, 2017 15:11
--- NOTE | 2017-01-30 15:39 | Infectious Diseases Prog Note ---
Assessment/Plan Problems: (1) Abnormal white blood cell (WBC) count Assessment & Plan: suspect reactive due to DKA , and dehydration, will send blood culture and monitor counts off antibiotics for now. UA and CXR are not suggestive of infection (2) Diabetes Assessment & Plan: poorly controled, recommend tight glycemic control to keep blood glucose less than 130 before meals and less than 120 fasting (3) ARF (acute renal failure) Assessment & Plan: due to dehydration, continue IVF for hydration , monitor renal function test . (4) DKA (diabetic ketoacidoses) Assessment & Plan: due to non compliance with insulin , continue insulin treatment and hydration, monitor blood glucose, needs diabetic teaching (5) Intractable nausea and vomiting Assessment & Plan: due to DKA, continue supportive care. Subjective Allergies: Coded Allergies: No Known Allergies (Verified , NONE, 10/30/05) Objective Vital Signs Last 24 Hour Vital Signs Date Time Temp Pulse Resp B/P Pulse Ox O2 Delivery O2 Flow Rate FiO2 01/30/17 12:15 98.4 103 18 143/90 98 Room Air 01/30/17 11:27 109 141/99 01/30/17 08:36 109 18 Room Air 21 01/30/17 08:00 98.2 106 17 141/99 98 Room Air 01/30/17 04:30 97.0 108 20 188/99 96 Room Air 01/30/17 04:00 95 01/30/17 00:00 98.0 104 20 124/77 95 Room Air 01/30/17 00:00 101 01/29/17 22:32 97.7 105 20 105/77 98 Room Air 01/29/17 22:30 102 18 Room Air 21 01/29/17 22:17 107 19 127/87 100 Room Air 01/29/17 20:45 108 14 145/98 100 Room Air 01/29/17 19:30 108 19 150/98 100 Room Air 01/29/17 18:30 110 16 134/98 100 Room Air 01/29/17 18:20 98.9 Height (Feet): 5 Height (Inches): 6.00 Weight (Pounds): 116 Laboratory Tests Test 01/29/17 16:30 01/29/17 16:54 01/30/17 05:00 01/30/17 06:50 White Blood Count 15.8 K/UL (4.8-10.8) H 21.1 K/UL (4.8-10.8) H Red Blood Count 4.04 M/UL (4.20-5.40) L 3.92 M/UL (4.20-5.40) L Hemoglobin 11.9 G/DL (12.0-16.0) L 11.6 G/DL (12.0-16.0) L Hematocrit 37.8 % (37.0-47.0) 36.9 % (37.0-47.0) L Mean Corpuscular Volume 94 FL (80-99) 94 FL (80-99) Mean Corpuscular Hemoglobin 29.5 PG (27.0-31.0) 29.6 PG (27.0-31.0) Mean Corpuscular Hemoglobin Concent 31.5 G/DL (32.0-36.0) L 31.5 G/DL (32.0-36.0) L Red Cell Distribution Width 13.8 % (11.6-14.8) 14.3 % (11.6-14.8) Platelet Count 364 K/UL (150-450) 325 K/UL (150-450) Mean Platelet Volume 7.4 FL (6.5-10.1) 8.1 FL (6.5-10.1) Neutrophils (%) (Auto) 84.4 % (45.0-75.0) H % (45.0-75.0) Lymphocytes (%) (Auto) 10.2 % (20.0-45.0) L % (20.0-45.0) Monocytes (%) (Auto) 4.2 % (1.0-10.0) % (1.0-10.0) Eosinophils (%) (Auto) 0.4 % (0.0-3.0) % (0.0-3.0) Basophils (%) (Auto) 0.7 % (0.0-2.0) % (0.0-2.0) Sodium Level 138 mEQ/L (135-145) 143 mEQ/L (135-145) Potassium Level 4.3 mEQ/L (3.4-4.9) 4.0 mEQ/L (3.4-4.9) Chloride Level 84 mEQ/L (98-107) L 90 mEQ/L (98-107) L Carbon Dioxide Level 21 mEQ/L (20-30) 23 mEQ/L (20-30) Anion Gap 33 (5-15) H 30 (5-15) H Blood Urea Nitrogen 28 mg/dL (7-23) H 20 mg/dL (7-23) Creatinine 1.5 mg/dL (0.5-0.9) H 1.3 mg/dL (0.5-0.9) H Estimat Glomerular Filtration Rate 46.9 mL/min (>60) 55.3 mL/min (>60) Glucose Level 884 mg/dL (74-106) *H 499 mg/dL (74-106) #H Calcium Level 10.6 mg/dL (8.6-10.2) H 9.6 mg/dL (8.6-10.2) Magnesium Level 1.9 mg/dL (1.7-2.5) Total Bilirubin 0.4 mg/dL (0.0-1.2) 0.3 mg/dL (0.0-1.2) Aspartate Amino Transf (AST/SGOT) 23 U/L (5-40) 17 U/L (5-40) Alanine Aminotransferase (ALT/SGPT) 15 U/L (3-33) 13 U/L (3-33) Alkaline Phosphatase 116 U/L (35-104) H 103 U/L (35-104) Total Protein 8.7 g/dL (6.6-8.7) 7.8 g/dL (6.6-8.7) Albumin 4.4 g/dL (3.5-5.2) 3.9 g/dL (3.5-5.2) Globulin 4.3 g/dL 3.9 g/dL Albumin/Globulin Ratio 1.0 (1.0-2.7) 1.0 (1.0-2.7) Lipase 12 U/L (< 60) Acetone Level Positive-small (NEGATIVE) Urine Color Pale yellow Urine Appearance Clear Urine pH 5 (4.5-8.0) Urine Specific [place] 1.010 (1.005-1.035) Urine Protein Negative (NEGATIVE) Urine Glucose (UA) 4+ (NEGATIVE) H Urine Ketones 3+ (NEGATIVE) H Urine Occult Blood Negative (NEGATIVE) Urine Nitrite Negative (NEGATIVE) Urine Bilirubin Negative (NEGATIVE) Urine Urobilinogen Normal MG/DL (0.0-1.0) Urine Leukocyte Esterase Negative (NEGATIVE) Urine Opiates Screen Positive (NEGATIVE) H Urine Barbiturates Screen Negative (NEGATIVE) Phencyclidine (PCP) Screen Negative (NEGATIVE) Urine Amphetamines Screen Negative (NEGATIVE) Urine Benzodiazepines Screen Negative (NEGATIVE) Urine Cocaine Screen Negative (NEGATIVE) Urine Marijuana (THC) Screen Negative (NEGATIVE) Differential Total Cells Counted 100 Neutrophils % (Manual) 82 % (45-75) H Lymphocytes % (Manual) 14 % (20-45) L Monocytes % (Manual) 4 % (1-10) Eosinophils % (Manual) 0 % (0-3) Basophils % (Manual) 0 % (0-2) Band Neutrophils 0 % (0-8) Platelet Estimate Adequate Platelet Morphology Normal Hypochromasia 1+ Hemoglobin A1c 10.9 % (< 6.0) H Triglycerides Level 146 mg/dL (< 150) Cholesterol Level 208 mg/dL (< 200) H LDL Cholesterol 146 mg/dL (60-99) H HDL Cholesterol 33 mg/dL (> 60) Cholesterol/HDL Ratio 6.3 (3.3-4.4) H Thyroid Stimulating Hormone (TSH) 0.388 uIU/mL (0.300-4.500) Current Medications Medications (Trade) Dose Ordered Sig/Mateo Route PRN Reason Start Time Stop Time Status Last Admin Dose Admin Acetaminophen (Tylenol) 650 mg Q4H PRN ORAL fever 01/29/17 20:45 02/28/17 20:44 Al Hydroxide/Mg Hydroxide (Mylanta II) 30 ml Q6H PRN ORAL dyspepsia 01/29/17 20:45 02/28/17 20:44 Albuterol/ Ipratropium (DuoNeb 0.5-3(2.5)mg/3ml) 3 ml Q4H PRN HHN Shortness of Breath 01/29/17 20:45 02/03/17 20:44 Amlodipine Besylate 5 mg 5 mg DAILY ORAL 01/30/17 09:00 03/01/17 08:59 01/30/17 11:27 Clonidine HCl (Catapres) 0.1 mg Q4H PRN ORAL sbp more than 160 01/29/17 20:45 02/28/17 20:44 Dextrose (Dextrose 50%) STAT PRN IV Hypoglycemia 01/29/17 20:45 02/28/17 20:44 Heparin Sodium (Porcine) (Heparin 5000 units/ml) 5,000 units EVERY 12 HOURS SUBQ 01/29/17 21:00 02/28/17 20:59 Insulin Aspart (NovoLOG) BEFORE MEALS AND HS SUBQ 01/30/17 06:30 03/01/17 06:29 01/30/17 11:30 Ketorolac Tromethamine (Toradol 30mg) 30 mg Q6H PRN IV moderate pain 4-6 01/29/17 20:45 02/03/17 20:44 Morphine Sulfate (Morphine Sulfate) 2 mg Q4H PRN IVP severe pain 7-10 01/29/17 20:45 02/05/17 20:44 Nitroglycerin (Ntg) 0.4 mg Q5M X 3 DOSES PRN SL Prn Chest Pain 01/29/17 20:45 02/28/17 20:44 Ondansetron HCl (Zofran ODT) 4 mg Q6H PRN ORAL Nausea & Vomiting 01/30/17 07:15 03/01/17 07:14 Ondansetron HCl (Zofran) 4 mg Q6H PRN IVP Nausea & Vomiting 01/29/17 20:45 02/28/17 20:44 Polyethylene Glycol (Miralax) 17 gm HSPRN PRN ORAL Constipation 01/29/17 20:45 02/28/17 20:44 Sodium Chloride (Sodium Chloride 1000ml bag) 1,000 ml @ 100 mls/hr Q10H IVLG 01/29/17 21:00 02/28/17 20:59 01/29/17 23:31 Temazepam (Restoril) 15 mg HSPRN PRN ORAL Insomnia 01/29/17 20:45 02/05/17 20:44 Choco Lozada M.D. Jan 30, 2017 15:38
[2017-01-30 16:00] VITALS: BP 129/94
--- NOTE | 2017-01-30 17:06 | Diagnostic Imaging Report ---
Indications: Needs long-term IV access Technique: Ultrasound confirms patent compressible right brachial vein. Total sterile technique, including sterile probe cover and sterile gel, hat, mask,, sterile gown, large sterile drape, and preparation with 2% chlorhexidine utilized. Local anesthesia with 1% lidocaine. Under real-time ultrasound guidance, puncture brachial vein using 21-gauge needle, documented and archived, passage 0.018 guidewire under direct fluoroscopy, which was used to determine appropriate catheter length, exchange for 5 Vincentian peel-away sheath. 5 Vincentian Bard dual-lumen power PICC cut to 39 cm. It was inserted through the peel-away sheath. Peel-away sheath and guidewire removed. Catheter fixed to the skin. Both catheter ports aspirated and flushed. Patient tolerated procedure well, without immediate complication. Digital radiograph documents satisfactory catheter tip position, at the cavoatrial junction. Total fluoroscopy time zero point minutes. Total dose area product the bony dGycm2 Impression: Successful placement of right arm PICC under sonographic and fluoroscopic guidance, as described above.
--- NOTE | 2017-01-30 18:58 | Consultation ---
DATE OF CONSULTATION: 01/30/2017 CONSULTING PHYSICIAN: Choco Lozada M.D. ATTENDING PHYSICIAN: Brandon Arana D.O. REFERRING PHYSICIAN: Rickie Vera M.D. REASON FOR CONSULTATION: Abnormal white cell count, recommendation for antibiotic treatment. HISTORY OF PRESENT ILLNESS: The patient is a 41-year-old female with a past medical history of diabetes, poorly controlled; gastroparesis; chronic pancreatitis; and seizure disorder, who presented to [facility] with abdominal pain and vomiting for several days. She did not take her insulin the day prior and she was found to have high glucose level on the scene by paramedics when they arrived. The patient was brought into the emergency room at [place] for evaluation. Her blood sugar was found to be elevated around 800 with significant leukocytosis. The patient was admitted to the hospital for treatment of DKA, and I was consulted by the primary provider for antibiotic recommendation for her abnormal white cell count. The patient denied any fever or chills. No headache or blurry vision. No sore throat or runny nose. No cough or shortness of breath. No nausea or vomiting. No diarrhea. No urinary symptoms. REVIEW OF SYSTEMS: Fourteen points of systems reviewed were all negative apart from the one I mentioned above in my History and Physical. PAST MEDICAL HISTORY: Significant for coronary artery disease, hypertension, diabetes, gastroparesis, pancreatitis, seizure, vertigo, and headache. PAST SURGICAL HISTORY: Negative. FAMILY HISTORY: Negative for recurrent infection or immunocompromised condition. SOCIAL HISTORY: The patient lives with family. Denied using any drugs, tobacco, or alcohol. ALLERGIES: She has no known drug allergy. MEDICATIONS: She was started on insulin. For the rest of her medications, please refer to MAR. LABORATORY DATA: White count 21.1, hemoglobin 11.6, hematocrit 36.9, and platelet count 325,000. BUN 20, creatinine 1.3, and glucose 499. AST 17 and ALT 13. Cholesterol 208. Urinalysis showed +3 ketones and +4 glucose, but negative for nitrite or leukocyte esterase. IMAGING: Chest x-ray showed no acute process. Abdominal x-ray showed upper midline calcification, likely indicates chronic pancreatitis. PHYSICAL EXAMINATION: VITAL SIGNS: Temperature 98.4, pulse 103, respirations 18, blood pressure 143/90, and pulse oximetry 98% on room air. GENERAL: A young female, up in bed, awake, alert, and oriented x3, not in distress. HEENT: Normocephalic and atraumatic. Moist oral mucosa. No exudate. NECK: Supple. No lymphadenopathy. CARDIOVASCULAR: Regular rate and rhythm. No murmur. LUNGS: Clear bilaterally. No wheezing or rhonchi. ABDOMEN: Soft, nontender, and nondistended. Positive bowel sounds. EXTREMITIES: No edema or cyanosis. SKIN: No rash or hives. ASSESSMENT AND PLAN: 1. Abnormal white cell count, suspect reactive due to diabetic ketoacidosis and dehydration. We will send blood culture and monitor her count off antibiotics. Urinalysis and chest x-ray are not suggestive of any acute infection. Continue to monitor clinically. 2. Diabetes, poorly controlled. Recommend tight glycemic control to keep blood glucose less than 130 before meals and less than 120 fasting. 3. Acute renal failure due to dehydration. Continue IV fluid for hydration. Monitor renal function tests. 4. Diabetic ketoacidosis due to noncompliance with insulin. Continue insulin treatment with hydration and recommend diabetic teaching. 5. Intractable nausea and vomiting due to diabetic ketoacidosis. Continue supportive care. Choco Lozada M.D. DR: MANJINDER JOB#: [id number] CC:
[2017-01-30 20:00] VITALS: BP 100/76
[2017-01-30] MEDS ORDERED: Levemir Flexpen SUBQ SCH ×2 (21:00→22:00)
[2017-01-30] MEDS ORDERED: Morphine Sulfate 2mg/ml Inj IVP PRN (21:00)
[2017-01-30] MEDS ORDERED: Mylanta II UD 30ml ORAL PRN (21:00)
[2017-01-30] MEDS ORDERED: DuoNeb 0.5-3(2.5)mg/3ml neb HHN PRN (21:00)
[2017-01-30] MEDS ORDERED: Miralax 17gm pkt ORAL PRN (21:00)
--- NOTE | 2017-01-30 22:08 | Consultation ---
DATE OF CONSULTATION: 01/30/2017 ENDOCRINOLOGY CONSULTATION CONSULTING PHYSICIAN: Bertin Alejo M.D. REFERRING PHYSICIAN: Brandon Arana D.O. REASON FOR CONSULTATION: Diabetes management. HISTORY OF PRESENT ILLNESS: The patient is a 41-year-old female with history of insulin-dependent diabetes and chronic pancreatitis brought by paramedics with nausea and vomiting. Blood sugar was high according to the paramedics and then the patient's blood sugar dropped. The patient was admitted for observation and treatment. Endocrinology was consulted in order to assist in the management of hyperglycemia. Epigastric pain was 10/10. MEDICATIONS: Reviewed. SOCIAL HISTORY: Denies any smoking, active alcohol, or drug use. FAMILY HISTORY: Noncontributory. REVIEW OF SYSTEMS: As per HPI. PHYSICAL EXAMINATION: VITAL SIGNS: Blood pressure 117/94, pulse 102, temperature 98, respiration 21. HEENT: Pupils are equal and reactive to light and accommodation. NECK: No JVD. HEART: Regular. ABDOMEN: Positive bowel sounds. EXTREMITIES: Trace edema. LABORATORY DATA: WBC 21, hemoglobin 11.6, hematocrit 36.9, platelet count 225,000. Sodium 142, potassium 4, chloride 90, bicarbonate 22, BUN 20, and creatinine 1.3, blood glucose 499. Hemoglobin A1c 10.9. Calcium 10.6. Urine toxicology was positive for opiates. Urine has 3+ ketones. DIAGNOSES: 1. Diabetes out of control. 2. Diabetic ketoacidosis. 3. Leukocytosis. PLAN: 1. The patient has been treated with IV fluids and insulin. 2. We will start long acting insulin and if subsequent labs does not show improvement the patient will be started on insulin drip management. Thank you, Dr. Arana, for the courtesy of this consultation. Bertin Alejo M.D. DR: Ezequiel JOB#: [id number] CC:
[2017-01-31] VITALS (13 sets, daily range): BP systolic 120–163; BP diastolic 61–99
[2017-01-31] MEDS: NovoLOG Insulin Flexpen SUBQ SCH ×6 (06:11→17:31)
--- NOTE | 2017-01-31 07:05 | General Progress Note ---
Assessment/Plan Problem List: (1) DKA (diabetic ketoacidoses) ICD Codes: E13.10 - Other specified diabetes mellitus with ketoacidosis without coma SNOMED: 50100953, 571700415 (2) Hyperglycemia ICD Codes: R73.9 - Hyperglycemia, unspecified SNOMED: 53924723 (3) Diabetes ICD Codes: E11.9 - Type 2 diabetes mellitus without complications SNOMED: 46536738 (4) Abnormal white blood cell (WBC) count ICD Codes: D72.9 - Disorder of white blood cells, unspecified SNOMED: 609084081 (5) ARF (acute renal failure) ICD Codes: N17.9 - Acute kidney failure, unspecified SNOMED: 24123269 Assessment/Plan follow electrolytes increase Levemir to 20 units qhs continue Novolog 5 units ac tid + SSI diabetic diet Subjective Allergies: Coded Allergies: No Known Allergies (Verified , NONE, 10/30/05) All Systems: reviewed and negative except above Subjective events noted Objective Last 24 Hour Vital Signs Date Time Temp Pulse Resp B/P Pulse Ox O2 Delivery O2 Flow Rate FiO2 01/31/17 04:00 97.9 87 18 132/77 98 Room Air 01/31/17 00:00 98.0 88 18 138/93 97 Room Air 01/30/17 20:00 98.1 88 21 100/76 98 Room Air 01/30/17 19:34 110 18 Room Air 01/30/17 16:00 98.1 102 21 129/94 100 Room Air 01/30/17 12:15 98.4 103 18 143/90 98 Room Air 01/30/17 11:27 109 141/99 01/30/17 08:36 109 18 Room Air 21 01/30/17 08:00 98.2 106 17 141/99 98 Room Air Intake and Output 01/30/17 01/31/17 19:00 07:00 Intake Total 0 ml 920 ml Balance 0 ml 920 ml Intake Oral 120 ml IV Total 0 ml 800 ml # Voids 2 3 Height (Feet): 5 Height (Inches): 6.00 Weight (Pounds): 116 General Appearance: no apparent distress Neck: normal alignment Cardiovascular: normal rate Respiratory/Chest: lungs clear Abdomen: normal bowel sounds Pelvis: normal external exam Objective Current Medications Medications (Trade) Dose Ordered Sig/Mateo Route PRN Reason Start Time Stop Time Status Last Admin Dose Admin Acetaminophen (Tylenol) 650 mg Q4H PRN ORAL fever 01/30/17 21:00 03/01/17 20:59 Al Hydroxide/Mg Hydroxide (Mylanta II) 30 ml Q6H PRN ORAL dyspepsia 01/30/17 21:00 03/01/17 20:59 Albuterol/ Ipratropium (DuoNeb 0.5-3(2.5)mg/3ml) 3 ml Q4H PRN HHN Shortness of Breath 01/30/17 21:00 02/04/17 20:59 Amlodipine Besylate (Norvasc) 5 mg DAILY ORAL 01/31/17 09:00 03/02/17 08:59 Clonidine HCl (Catapres) 0.1 mg Q4H PRN ORAL sbp more than 160 01/30/17 21:00 03/01/17 20:59 Dextrose (Dextrose 50%) STAT PRN IV Hypoglycemia 01/30/17 21:00 03/01/17 20:59 Heparin Sodium (Porcine) (Heparin 5000 units/ml) 5,000 units EVERY 12 HOURS SUBQ 01/30/17 22:00 03/01/17 21:59 01/30/17 22:59 Insulin Aspart (NovoLOG) BEFORE MEALS AND HS SUBQ 01/30/17 22:00 03/01/17 21:59 01/31/17 06:11 Insulin Aspart (NovoLOG) 5 units NOVOTIAC SUBQ 01/31/17 06:30 03/02/17 06:29 Insulin Detemir (Levemir) 15 units BEDTIME SUBQ 01/30/17 22:00 03/01/17 21:59 01/30/17 22:00 Ketorolac Tromethamine (Toradol 30mg) 30 mg Q6H PRN IV moderate pain 4-6 01/30/17 21:00 02/04/17 20:59 Morphine Sulfate (Morphine Sulfate) 2 mg Q4H PRN IVP severe pain 7-10 01/30/17 21:00 02/06/17 20:59 Nitroglycerin (Ntg) 0.4 mg Q5M X 3 DOSES PRN SL Prn Chest Pain 01/30/17 21:00 03/01/17 20:59 Ondansetron HCl (Zofran ODT) 4 mg Q6H PRN ORAL Nausea & Vomiting 01/30/17 21:00 03/01/17 20:59 Ondansetron HCl (Zofran) 4 mg Q6H PRN IVP Nausea & Vomiting 01/30/17 21:00 03/01/17 20:59 01/31/17 06:27 Polyethylene Glycol (Miralax) 17 gm HSPRN PRN ORAL Constipation 01/30/17 21:00 03/01/17 20:59 Sodium Chloride (Sodium Chloride 1000ml bag) 1,000 ml @ 100 mls/hr Q10H IVLG 01/30/17 21:00 03/01/17 20:59 01/31/17 06:27 Temazepam (Restoril) 15 mg HSPRN PRN ORAL Insomnia 01/30/17 21:00 02/06/17 20:59 Item Value Date Time Bedside Blood Glucose 313 mg/dl H 01/31/17 0630 Bedside Blood Glucose 172 mg/dl H 01/30/17 2200 Bedside Blood Glucose 209 mg/dl H 01/30/17 1707 Bedside Blood Glucose 302 mg/dl H 01/30/17 1130 Bedside Blood Glucose 472 mg/dl H 01/30/17 0608 FRANCES BRADLEY 10, 2017 07:05
[2017-01-31] MEDS: Heparin 5000 units/ml inj SUBQ SCH ×2 (08:52→22:21)
[2017-01-31] MEDS ORDERED: Morphine Sulfate 2mg/ml Inj IVP PRN (10:30)
[2017-01-31] MEDS: Morphine Sulfate 2mg/ml Inj IVP PRN ×3 (10:37→19:35)
[2017-01-31] MEDS: Nitroglycerin Subl 0.4mg tab (Bottle Of 25) SL PRN (11:12)
--- NOTE | 2017-01-31 15:42 | Infectious Diseases Prog Note ---
Assessment/Plan Problems: (1) Abnormal white blood cell (WBC) count Assessment & Plan: suspect reactive due to DKA , and dehydration, await blood culture and monitor counts off antibiotics for now. UA and CXR are not suggestive of infection (2) Diabetes Assessment & Plan: poorly controled, recommend tight glycemic control to keep blood glucose less than 130 before meals and less than 120 fasting (3) ARF (acute renal failure) Assessment & Plan: due to dehydration, continue IVF for hydration , monitor renal function test . (4) DKA (diabetic ketoacidoses) Assessment & Plan: due to non compliance with insulin , continue insulin treatment and hydration, monitor blood glucose, needs diabetic teaching (5) Intractable nausea and vomiting Assessment & Plan: due to DKA, continue supportive care. Subjective Constitutional: Denies: anorexia, chills, drenching sweats, fatigue, fever, no symptoms, other HEENT: Denies: congestion, coryza, dysphagia, hearing change, no symptoms, other, visual change Respiratory: Denies: dry cough, no symptoms, other, productive cough, shortness of breath Cardiovascular: Denies: chest pain, dyspnea on exertion, no symptoms, other, palpitations Gastrointestinal/Abdominal: Denies: bloating, blood in stool, constipation, diarrhea, nausea, no symptoms, other, vomiting Genitourinary: Denies: dysuria, frequency, hematuria, last menstrual period, no symptoms, nocturia, other, vaginal bleed/discharge Neurologic: Denies: confusion, headache, no symptoms, numbness, other, weakness Skin: Denies: no symptoms, other, rash, ulcer Allergies: Coded Allergies: No Known Allergies (Verified , NONE, 10/30/05) Objective Vital Signs Last 24 Hour Vital Signs Date Time Temp Pulse Resp B/P Pulse Ox O2 Delivery O2 Flow Rate FiO2 01/31/17 11:57 105 20 149/80 99 01/31/17 11:38 98.1 110 20 159/86 100 Room Air 01/31/17 11:12 151/88 01/31/17 11:07 98.1 01/31/17 08:52 89 135/87 01/31/17 08:45 102 16 Room Air 21 01/31/17 08:08 97.9 89 16 137/99 98 Room Air 01/31/17 04:00 97.9 87 18 132/77 98 Room Air 01/31/17 00:00 98.0 88 18 138/93 97 Room Air 01/30/17 20:00 98.1 88 21 100/76 98 Room Air 01/30/17 19:34 110 18 Room Air 01/30/17 16:00 98.1 102 21 129/94 100 Room Air Height (Feet): 5 Height (Inches): 6.00 Weight (Pounds): 116 General Appearance: WD/WN, no acute distress HEENT: normocephalic, atraumatic, anicteric, mucous membranes moist, PERRL Respiratory/Chest: chest wall non-tender, lungs clear, normal breath sounds, no respiratory distress, no accessory muscle use Cardiovascular: normal peripheral pulses, normal rate, regular rhythm, no gallop/murmur Abdomen: normal bowel sounds, soft, non tender, no organomegaly, non distended , no mass, no scars Extremities: no cyanosis, no clubbing Skin: no rash, no lesions, no ulcers Microbiology Date/Time Source Procedure Growth Status 01/29/17 16:40 Blood Blood Culture - Preliminary NO GROWTH AFTER 24 HOURS Resulted 01/29/17 16:30 Blood Blood Culture - Preliminary NO GROWTH AFTER 24 HOURS Resulted Current Medications Medications (Trade) Dose Ordered Sig/Mateo Route PRN Reason Start Time Stop Time Status Last Admin Dose Admin Acetaminophen (Tylenol) 650 mg Q4H PRN ORAL fever 01/30/17 21:00 03/01/17 20:59 Al Hydroxide/Mg Hydroxide (Mylanta II) 30 ml Q6H PRN ORAL dyspepsia 01/30/17 21:00 03/01/17 20:59 01/31/17 12:27 Albuterol/ Ipratropium (DuoNeb 0.5-3(2.5)mg/3ml) 3 ml Q4H PRN HHN Shortness of Breath 01/30/17 21:00 02/04/17 20:59 Amlodipine Besylate (Norvasc) 5 mg DAILY ORAL 01/31/17 09:00 03/02/17 08:59 01/31/17 08:52 Clonidine HCl (Catapres) 0.1 mg Q4H PRN ORAL sbp more than 160 01/30/17 21:00 03/01/17 20:59 Dextrose (Dextrose 50%) STAT PRN IV Hypoglycemia 01/30/17 21:00 03/01/17 20:59 Heparin Sodium (Porcine) (Heparin 5000 units/ml) 5,000 units EVERY 12 HOURS SUBQ 01/30/17 22:00 03/01/17 21:59 01/30/17 22:59 Insulin Aspart (NovoLOG) BEFORE MEALS AND HS SUBQ 01/30/17 22:00 03/01/17 21:59 01/31/17 11:55 Insulin Aspart (NovoLOG) 5 units NOVOTIAC SUBQ 01/31/17 06:30 03/02/17 06:29 Insulin Detemir (Levemir) 20 units BEDTIME SUBQ 01/31/17 21:00 03/02/17 20:59 Ketorolac Tromethamine (Toradol 30mg) 30 mg Q6H PRN IV moderate pain 4-6 01/30/17 21:00 02/04/17 20:59 Morphine Sulfate (Morphine Sulfate) 2 mg Q4H PRN IVP pain 4-10 01/31/17 10:31 02/06/17 20:59 01/31/17 14:57 Nitroglycerin (Ntg) 0.4 mg Q5M X 3 DOSES PRN SL Prn Chest Pain 01/30/17 21:00 03/01/17 20:59 01/31/17 11:12 Ondansetron HCl (Zofran ODT) 4 mg Q6H PRN ORAL Nausea & Vomiting 01/30/17 21:00 03/01/17 20:59 Ondansetron HCl (Zofran) 4 mg Q6H PRN IVP Nausea & Vomiting 01/30/17 21:00 03/01/17 20:59 01/31/17 13:11 Polyethylene Glycol (Miralax) 17 gm HSPRN PRN ORAL Constipation 01/30/17 21:00 03/01/17 20:59 Sodium Chloride (Sodium Chloride 1000ml bag) 1,000 ml @ 100 mls/hr Q10H IVLG 01/30/17 21:00 03/01/17 20:59 01/31/17 06:27 Temazepam (Restoril) 15 mg HSPRN PRN ORAL Insomnia 01/30/17 21:00 02/06/17 20:59 Choco Lozada M.D. Jan 31, 2017 15:42
[2017-01-31] MEDS ORDERED: Insulin Rate Change 1 Each MISC PRN (17:00)
[2017-01-31 17:33] LABS: MEAN CORPUSCULAR HEMOGLOBIN 30.3 PG (27.0-31.0); MEAN CORPUSCULAR HGB CONC 32.4 G/DL (32.0-36.0); MEAN CORPUSCULAR VOLUME 94 FL (80-99); MEAN PLATELET VOLUME 7.7 FL (6.5-10.1); PLATELET COUNT 305 K/UL (150-450); RED CELL DISTRIBUTION WIDTH 13.9 % (11.6-14.8); WHITE BLOOD COUNT 19.7 K/UL (4.8-10.8)
[2017-01-31] MEDS: Ketorolac 30mg Inj IV PRN (17:34)
[2017-01-31 17:43] LABS: ANION GAP 23 (5-15); CALCIUM 9.2 mg/dL (8.6-10.2); CARBON DIOXIDE 25 mEQ/L (20-30); CHLORIDE 92 mEQ/L (98-107); CREATININE 1.1 mg/dL (0.5-0.9); GLOMERULAR FILTRATION RATE > 60 mL/min (>60); HEMOLYSIS 3; MAGNESIUM 1.5 mg/dL (1.7-2.5); PHOSPHORUS 2.9 mg/dL (2.5-4.8); POTASSIUM 3.5 mEQ/L (3.4-4.9); SODIUM 140 mEQ/L (135-145)
[2017-01-31 18:27] LABS: ANISOCYTOSIS 1+; BAND NEUTROPHILS % (MANUAL) 0 % (0-8); BASOPHILS % (MANUAL) 0 % (0-2); EOSINOPHILS % (MANUAL) 0 % (0-3); HYPOCHROMASIA 1+; LYMPHOCYTES % (MANUAL) 13 % (20-45); NEUTROPHILS % (MANUAL) 82 % (45-75); PLATELET ESTIMATE ADEQUATE; PLATELET MORPHOLOGY NORMAL; TOTAL CELLS COUNTED 100
[2017-01-31] MEDS ORDERED: Levemir Flexpen SUBQ SCH (21:00)
[2017-01-31] MEDS: Insulin Rate Change 1 Each MISC PRN (22:37)
[2017-02-01] VITALS (11 sets, daily range): BP systolic 114–157; BP diastolic 72–119
[2017-02-01] MEDS: Ketorolac 30mg Inj IV PRN (00:02)
[2017-02-01] MEDS: Insulin Rate Change 1 Each MISC PRN ×3 (01:28→08:16)
[2017-02-01 05:17] LABS: BASOPHILS % (AUTO) 0.4 % (0.0-2.0); EOSINOPHILS % (AUTO) 1.3 % (0.0-3.0); LYMPHOCYTES % (AUTO) 25.8 % (20.0-45.0); MEAN CORPUSCULAR HEMOGLOBIN 29.7 PG (27.0-31.0); MEAN CORPUSCULAR HGB CONC 32.7 G/DL (32.0-36.0); MEAN CORPUSCULAR VOLUME 91 FL (80-99); MEAN PLATELET VOLUME 7.9 FL (6.5-10.1); MONOCYTES % (AUTO) 4.9 % (1.0-10.0); NEUTROPHILS % (AUTO) 67.6 % (45.0-75.0); PLATELET COUNT 286 K/UL (150-450); RED BLOOD COUNT 3.27 M/UL (4.20-5.40); RED CELL DISTRIBUTION WIDTH 13.7 % (11.6-14.8); WHITE BLOOD COUNT 14.2 K/UL (4.8-10.8)
[2017-02-01 05:23] LABS: ALANINE AMINOTRANSFERASE 12 U/L (3-33); ANION GAP 12 (5-15); ASPARTATE AMINO TRANSFERASE 25 U/L (5-40); CALCIUM 8.5 mg/dL (8.6-10.2); CARBON DIOXIDE 31 mEQ/L (20-30); CHLORIDE 100 mEQ/L (98-107); CREATININE 0.9 mg/dL (0.5-0.9); GLOMERULAR FILTRATION RATE > 60 mL/min (>60); HEMOLYSIS 1; PHOSPHORUS 2.6 mg/dL (2.5-4.8); POTASSIUM 3.2 mEQ/L (3.4-4.9); SODIUM 143 mEQ/L (135-145); TOTAL PROTEIN 6.2 g/dL (6.6-8.7)
[2017-02-01] MEDS ORDERED: ALL DRIPS IN NORMAL SALINE MISC PRN (09:00)
[2017-02-01] MEDS: Heparin 5000 units/ml inj SUBQ SCH ×2 (09:01→20:54)
--- NOTE | 2017-02-01 09:01 | General Progress Note ---
Assessment/Plan Problem List: (1) DKA (diabetic ketoacidoses) ICD Codes: E13.10 - Other specified diabetes mellitus with ketoacidosis without coma SNOMED: 62542261, 777995249 (2) Hyperglycemia ICD Codes: R73.9 - Hyperglycemia, unspecified SNOMED: 48789091 (3) Diabetes ICD Codes: E11.9 - Type 2 diabetes mellitus without complications SNOMED: 65583853 (4) Abnormal white blood cell (WBC) count ICD Codes: D72.9 - Disorder of white blood cells, unspecified SNOMED: 928689393 (5) ARF (acute renal failure) ICD Codes: N17.9 - Acute kidney failure, unspecified SNOMED: 80354459 Assessment/Plan DKA resolved DC insulin drip start Levemir to 24 units qam + Novolog 6 units ac tid + SSI continue IVF diabetic diet may be transferred out of icu Subjective Allergies: Coded Allergies: No Known Allergies (Verified , NONE, 10/30/05) All Systems: reviewed and negative except above Subjective transferred to icu for IV insulin treatment doing better AG is closed Objective Last 24 Hour Vital Signs Date Time Temp Pulse Resp B/P Pulse Ox O2 Delivery O2 Flow Rate FiO2 02/01/17 08:43 83 02/01/17 08:00 97.7 79 19 156/100 93 Room Air 02/01/17 04:00 98.2 77 23 134/80 96 Nasal Cannula 2.0 02/01/17 03:00 76 22 114/72 99 Nasal Cannula 2.0 02/01/17 02:00 76 22 117/77 100 Nasal Cannula 2.0 02/01/17 01:00 76 24 116/85 100 Nasal Cannula 2.0 02/01/17 00:00 98.0 74 23 132/95 100 Nasal Cannula 2.0 01/31/17 23:00 81 24 120/75 98 Nasal Cannula 2.0 01/31/17 22:00 86 22 130/80 98 Nasal Cannula 2.0 01/31/17 21:00 87 23 158/89 98 Nasal Cannula 2.0 01/31/17 20:00 98.4 96 24 130/61 100 Nasal Cannula 2.0 01/31/17 19:00 98 24 163/96 100 Nasal Cannula 2.0 01/31/17 18:00 96 25 126/87 100 Nasal Cannula 2.0 01/31/17 17:43 171/100 01/31/17 17:00 103 20 130/80 99 Nasal Cannula 2.0 01/31/17 16:20 98.0 99 20 154/85 99 Nasal Cannula 2.0 01/31/17 11:57 105 20 149/80 99 01/31/17 11:38 98.1 110 20 159/86 100 Room Air 01/31/17 11:12 151/88 01/31/17 11:07 98.1 Intake and Output 01/31/17 02/01/17 19:00 07:00 Intake Total 100 ml 1206.51 ml Output Total 720 ml 160 ml Balance -620 ml 1046.51 ml Intake Oral 100 ml IV Total 1206.51 ml Output Urine Total 600 ml 60 ml Emesis 120 ml 100 ml # Voids 2 Laboratory Tests 01/31/17 17:10: White Blood Count 19.7H, Red Blood Count 3.60L, Hemoglobin 10.9L, Hematocrit 33.6L, Mean Corpuscular Volume 94, Mean Corpuscular Hemoglobin 30.3, Mean Corpuscular Hemoglobin Concent 32.4, Red Cell Distribution Width 13.9, Platelet Count 305, Mean Platelet Volume 7.7, Neutrophils (%) (Auto) , Lymphocytes (%) ( Auto) , Monocytes (%) (Auto) , Eosinophils (%) (Auto) , Basophils (%) (Auto) , Differential Total Cells Counted 100, Neutrophils % (Manual) 82H, Lymphocytes % (Manual) 13L, Monocytes % (Manual) 5, Eosinophils % (Manual) 0, Basophils % ( Manual) 0, Band Neutrophils 0, Platelet Estimate Adequate, Platelet Morphology Normal, Hypochromasia 1+, Anisocytosis 1+, Sodium Level 140, Potassium Level 3.5 , Chloride Level 92L, Carbon Dioxide Level 25, Anion Gap 23H, Blood Urea Nitrogen 12, Creatinine 1.1H, Estimat Glomerular Filtration Rate > 60, Glucose Level 249#H, Hemoglobin A1c 10.7H, Calcium Level 9.2, Phosphorus Level 2.9, Magnesium Level 1.5L 02/01/17 04:00: White Blood Count 14.2H, Red Blood Count 3.27L, Hemoglobin 9.7L, Hematocrit 29.7L, Mean Corpuscular Volume 91, Mean Corpuscular Hemoglobin 29.7, Mean Corpuscular Hemoglobin Concent 32.7, Red Cell Distribution Width 13.7, Platelet Count 286, Mean Platelet Volume 7.9, Neutrophils (%) (Auto) 67.6, Lymphocytes (% ) (Auto) 25.8, Monocytes (%) (Auto) 4.9, Eosinophils (%) (Auto) 1.3, Basophils ( %) (Auto) 0.4, Sodium Level 143, Potassium Level 3.2L, Chloride Level 100, Carbon Dioxide Level 31H, Anion Gap 12, Blood Urea Nitrogen 11, Creatinine 0.9, Estimat Glomerular Filtration Rate > 60, Glucose Level 81#, Calcium Level 8.5L, Phosphorus Level 2.6, Magnesium Level 2.3, Total Bilirubin 0.2, Aspartate Amino Transf (AST/SGOT) 25, Alanine Aminotransferase (ALT/SGPT) 12, Alkaline Phosphatase 112H, Total Protein 6.2L, Albumin 3.2L, Globulin 3.0, Albumin/ Globulin Ratio 1.0 Height (Feet): 5 Height (Inches): 6.00 Weight (Pounds): 116 General Appearance: no apparent distress EENT: PERRL/EOMI Neck: normal alignment Cardiovascular: normal peripheral pulses Respiratory/Chest: chest wall non-tender Abdomen: normal bowel sounds Objective Current Medications Medications (Trade) Dose Ordered Sig/Mateo Route PRN Reason Start Time Stop Time Status Last Admin Dose Admin Acetaminophen (Tylenol) 650 mg Q4H PRN ORAL fever 01/30/17 21:00 03/01/17 20:59 Al Hydroxide/Mg Hydroxide (Mylanta II) 30 ml Q6H PRN ORAL dyspepsia 01/30/17 21:00 03/01/17 20:59 01/31/17 12:27 Albuterol/ Ipratropium (DuoNeb 0.5-3(2.5)mg/3ml) 3 ml Q4H PRN HHN Shortness of Breath 01/30/17 21:00 02/04/17 20:59 Amlodipine Besylate (Norvasc) 5 mg DAILY ORAL 01/31/17 09:00 03/02/17 08:59 01/31/17 08:52 Clonidine HCl (Catapres) 0.1 mg Q4H PRN ORAL sbp more than 160 01/30/17 21:00 03/01/17 20:59 01/31/17 17:43 Dextrose (Dextrose 50%) PRN PRN IV HYPOGLYCEMIA 01/31/17 20:00 03/02/17 19:59 Heparin Sodium (Porcine) (Heparin 5000 units/ml) 5,000 units EVERY 12 HOURS SUBQ 01/30/17 22:00 03/01/17 21:59 01/31/17 22:21 Insulin Human Regular (NovoLIN R) 5 units PRN PRN IV BS 200-299 01/31/17 20:00 03/02/17 19:59 Insulin Human Regular (NovoLIN R) 10 units PRN PRN IV BS=>300 01/31/17 20:00 03/02/17 19:59 Insulin Human Regular/Sodium Chloride (NovoLIN R/ Sodium Chloride) 101 ml @ 0 mls/hr Q24H IV 01/31/17 20:30 03/02/17 20:29 01/31/17 20:55 Ketorolac Tromethamine (Toradol 30mg) 30 mg Q6H PRN IV moderate pain 4-6 01/30/17 21:00 02/04/17 20:59 02/01/17 00:02 Miscellaneous Medication (Insulin Rate Change) 1 ea PRN PRN MISC Hyperglycemia 01/31/17 20:00 03/02/17 19:59 02/01/17 08:16 Morphine Sulfate 2 mg 2 mg Q4H PRN IVP pain 4-10 01/31/17 10:31 02/06/17 20:59 01/31/17 19:35 Nitroglycerin (Ntg) 0.4 mg Q5M X 3 DOSES PRN SL Prn Chest Pain 01/30/17 21:00 03/01/17 20:59 01/31/17 11:12 Ondansetron HCl (Zofran ODT) 4 mg Q6H PRN ORAL Nausea & Vomiting 01/30/17 21:00 03/01/17 20:59 Ondansetron HCl (Zofran) 4 mg Q6H PRN IVP Nausea & Vomiting 01/30/17 21:00 03/01/17 20:59 01/31/17 20:27 Polyethylene Glycol (Miralax) 17 gm HSPRN PRN ORAL Constipation 01/30/17 21:00 03/01/17 20:59 Sodium Chloride (Sodium Chloride 1000ml bag) 1,000 ml @ 100 mls/hr Q10H IVLG 01/30/17 21:00 03/01/17 20:59 02/01/17 04:12 Temazepam (Restoril) 15 mg HSPRN PRN ORAL Insomnia 01/30/17 21:00 02/06/17 20:59 Item Value Date Time Bedside Blood Glucose 157 mg/dl H 02/01/17 0816 Bedside Blood Glucose 155 mg/dl H 02/01/17 0621 Bedside Blood Glucose 144 mg/dl H 02/01/17 0200 Bedside Blood Glucose 235 mg/dl H 01/31/17 2237 Bedside Blood Glucose 247 mg/dl H 01/31/17 1800 FRANCES BRADLEY 11, 2017 09:01
[2017-02-01] MEDS: Morphine Sulfate 2mg/ml Inj IVP PRN ×2 (09:44→15:21)
[2017-02-01] MEDS ORDERED: Levemir Flexpen SUBQ SCH ×2 (10:00→21:00)
--- NOTE | 2017-02-01 10:24 | Pulmonolgy Critical Care Note ---
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0 01/31/17 20:00 98.4 96 24 130/61 100 Nasal Cannula 2.0 01/31/17 19:00 98 24 163/96 100 Nasal Cannula 2.0 01/31/17 18:00 96 25 126/87 100 Nasal Cannula 2.0 01/31/17 17:43 171/100 01/31/17 17:00 103 20 130/80 99 Nasal Cannula 2.0 01/31/17 16:20 98.0 99 20 154/85 99 Nasal Cannula 2.0 01/31/17 11:57 105 20 149/80 99 01/31/17 11:38 98.1 110 20 159/86 100 Room Air 01/31/17 11:12 151/88 01/31/17 11:07 98.1 Status: awake Condition: critical, improving HEENT: atraumatic Neck: full ROM Lungs: clear Heart: HR/BP stable Abdomen: soft, non-tender Extremities: no C/C/E, edema Micro: Microbiology Date/Time Source Procedure Growth Status 01/29/17 16:40 Blood Blood Culture - Preliminary NO GROWTH AFTER 24 HOURS Resulted 01/29/17 16:30 Blood Blood Culture - Preliminary NO GROWTH AFTER 24 HOURS Resulted Accucheck: 157 Critical Care - Subjective ROS Limited/Unobtainable: No ICU Day: 2 Condition: critical, improving EKG Rhythm: Sinus Rhythm FI02: 21 Sputum Amount: None Fluids: NS 100 cc.hour Drips: insulin drip is off I&O: Intake and Output 01/31/17 02/01/17 19:00 07:00 Intake Total 100 ml 1206.51 ml Output Total 720 ml 160 ml Balance -620 ml 1046.51 ml Intake Oral 100 ml IV Total 1206.51 ml Output Urine Total 600 ml 60 ml Emesis 120 ml 100 ml # Voids 2 Labs: Laboratory Tests Test 01/31/17 17:10 02/01/17 04:00 White Blood Count 19.7 K/UL (4.8-10.8) H 14.2 K/UL (4.8-10.8) H Red Blood Count 3.60 M/UL (4.20-5.40) L 3.27 M/UL (4.20-5.40) L Hemoglobin 10.9 G/DL (12.0-16.0) L 9.7 G/DL (12.0-16.0) L Hematocrit 33.6 % (37.0-47.0) L 29.7 % (37.0-47.0) L Mean Corpuscular Volume 94 FL (80-99) 91 FL (80-99) Mean Corpuscular Hemoglobin 30.3 PG (27.0-31.0) 29.7 PG (27.0-31.0) Mean Corpuscular Hemoglobin Concent 32.4 G/DL (32.0-36.0) 32.7 G/DL (32.0-36.0) Red Cell Distribution Width 13.9 % (11.6-14.8) 13.7 % (11.6-14.8) Platelet Count 305 K/UL (150-450) 286 K/UL (150-450) Mean Platelet Volume 7.7 FL (6.5-10.1) 7.9 FL (6.5-10.1) Neutrophils (%) (Auto) % (45.0-75.0) 67.6 % (45.0-75.0) Lymphocytes (%) (Auto) % (20.0-45.0) 25.8 % (20.0-45.0) Monocytes (%) (Auto) % (1.0-10.0) 4.9 % (1.0-10.0) Eosinophils (%) (Auto) % (0.0-3.0) 1.3 % (0.0-3.0) Basophils (%) (Auto) % (0.0-2.0) 0.4 % (0.0-2.0) Differential Total Cells Counted 100 Neutrophils % (Manual) 82 % (45-75) H Lymphocytes % (Manual) 13 % (20-45) L Monocytes % (Manual) 5 % (1-10) Eosinophils % (Manual) 0 % (0-3) Basophils % (Manual) 0 % (0-2) Band Neutrophils 0 % (0-8) Platelet Estimate Adequate Platelet Morphology Normal Hypochromasia 1+ Anisocytosis 1+ Sodium Level 140 mEQ/L (135-145) 143 mEQ/L (135-145) Potassium Level 3.5 mEQ/L (3.4-4.9) 3.2 mEQ/L (3.4-4.9) L Chloride Level 92 mEQ/L (98-107) L 100 mEQ/L (98-107) Carbon Dioxide Level 25 mEQ/L (20-30) 31 mEQ/L (20-30) H Anion Gap 23 (5-15) H 12 (5-15) Blood Urea Nitrogen 12 mg/dL (7-23) 11 mg/dL (7-23) Creatinine 1.1 mg/dL (0.5-0.9) H 0.9 mg/dL (0.5-0.9) Estimat Glomerular Filtration Rate > 60 mL/min (>60) > 60 mL/min (>60) Glucose Level 249 mg/dL (74-106) #H 81 mg/dL (74-106) # Hemoglobin A1c 10.7 % (< 6.0) H Calcium Level 9.2 mg/dL (8.6-10.2) 8.5 mg/dL (8.6-10.2) L Phosphorus Level 2.9 mg/dL (2.5-4.8) 2.6 mg/dL (2.5-4.8) Magnesium Level 1.5 mg/dL (1.7-2.5) L 2.3 mg/dL (1.7-2.5) Total Bilirubin 0.2 mg/dL (0.0-1.2) Aspartate Amino Transf (AST/SGOT) 25 U/L (5-40) Alanine Aminotransferase (ALT/SGPT) 12 U/L (3-33) Alkaline Phosphatase 112 U/L (35-104) H Total Protein 6.2 g/dL (6.6-8.7) L Albumin 3.2 g/dL (3.5-5.2) L Globulin 3.0 g/dL Albumin/Globulin Ratio 1.0 (1.0-2.7) MILA LAINEZ Feb 01, 2017 10:24
[2017-02-01] MEDS ORDERED: KCl 10% 40mEq/30ml liquid ORAL SCH ×2 (10:45→14:00)
[2017-02-01] MEDS ORDERED: NovoLOG Insulin Flexpen SUBQ SCH ×2 (11:30→11:50)
[2017-02-01] MEDS: Nitroglycerin Subl 0.4mg tab (Bottle Of 25) SL PRN (11:54)
[2017-02-01] MEDS ORDERED: Nitroglycerin Subl 0.4mg tab (Bottle Of 25) SL PRN (12:00)
[2017-02-01] MEDS ORDERED: DuoNeb 0.5-3(2.5)mg/3ml neb HHN PRN (13:00)
[2017-02-01] MEDS ORDERED: Mylanta II UD 30ml ORAL PRN (13:00)
--- NOTE | 2017-02-01 13:21 | Infectious Diseases Prog Note ---
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 UA and CXR are not suggestive of infection (3) Diabetes Assessment & Plan: poorly controled, recommend tight glycemic control to keep blood glucose less than 130 before meals and less than 120 fasting (4) ARF (acute renal failure) Assessment & Plan: due to dehydration, continue IVF for hydration , monitor renal function test . (5) DKA (diabetic ketoacidoses) Assessment & Plan: due to non compliance with insulin , continue insulin treatment and hydration, monitor blood glucose, needs diabetic teaching Subjective Constitutional: Denies: anorexia, chills, drenching sweats, fatigue, fever, no symptoms, other HEENT: Denies: congestion, coryza, dysphagia, hearing change, no symptoms, other, visual change Respiratory: Denies: dry cough, no symptoms, other, productive cough, shortness of breath Cardiovascular: Reports: chest pain Gastrointestinal/Abdominal: Denies: bloating, blood in stool, constipation, diarrhea, nausea, no symptoms, other, vomiting Genitourinary: Denies: dysuria, frequency, hematuria, last menstrual period, no symptoms, nocturia, other, vaginal bleed/discharge Neurologic: Denies: confusion, headache, no symptoms, numbness, other, weakness Psychiatric: Denies: anxiety, depression, no symptoms, other Skin: Denies: no symptoms, other, rash, ulcer Endocrine: Denies: feels cold, feels warm, no symptoms, other Allergies: Coded Allergies: No Known Allergies (Verified , NONE, 10/30/05) Objective Vital Signs Last 24 Hour Vital Signs Date Time Temp Pulse Resp B/P Pulse Ox O2 Delivery O2 Flow Rate FiO2 02/01/17 11:54 163/100 02/01/17 11:00 97 24 154/106 99 Room Air 02/01/17 10:00 103 26 157/117 95 Room Air 02/01/17 09:00 81 25 152/119 99 Room Air 02/01/17 08:57 83 156/100 02/01/17 08:43 83 02/01/17 08:00 97.7 79 19 156/100 93 Room Air 02/01/17 04:00 98.2 77 23 134/80 96 Nasal Cannula 2.0 02/01/17 03:00 76 22 114/72 99 Nasal Cannula 2.0 02/01/17 02:00 76 22 117/77 100 Nasal Cannula 2.0 02/01/17 01:00 76 24 116/85 100 Nasal Cannula 2.0 02/01/17 00:00 98.0 74 23 132/95 100 Nasal Cannula 2.0 01/31/17 23:00 81 24 120/75 98 Nasal Cannula 2.0 01/31/17 22:00 86 22 130/80 98 Nasal Cannula 2.0 01/31/17 21:00 87 23 158/89 98 Nasal Cannula 2.0 01/31/17 20:00 98.4 96 24 130/61 100 Nasal Cannula 2.0 01/31/17 19:00 98 24 163/96 100 Nasal Cannula 2.0 01/31/17 18:00 96 25 126/87 100 Nasal Cannula 2.0 01/31/17 17:43 171/100 01/31/17 17:00 103 20 130/80 99 Nasal Cannula 2.0 01/31/17 16:20 98.0 99 20 154/85 99 Nasal Cannula 2.0 Height (Feet): 5 Height (Inches): 6.00 Weight (Pounds): 116 General Appearance: WD/WN, no acute distress HEENT: normocephalic, atraumatic, anicteric, mucous membranes moist Respiratory/Chest: chest wall non-tender, lungs clear, normal breath sounds, no respiratory distress Cardiovascular: normal peripheral pulses, normal rate, regular rhythm Abdomen: normal bowel sounds, soft, non tender, no organomegaly, non distended , no mass Extremities: no cyanosis, no clubbing Skin: no rash, no lesions Microbiology Date/Time Source Procedure Growth Status 01/29/17 16:40 Blood Blood Culture - Preliminary NO GROWTH AFTER 24 HOURS Resulted 01/29/17 16:30 Blood Blood Culture - Preliminary NO GROWTH AFTER 24 HOURS Resulted Laboratory Tests Test 01/31/17 17:10 02/01/17 04:00 White Blood Count 19.7 K/UL (4.8-10.8) H 14.2 K/UL (4.8-10.8) H Red Blood Count 3.60 M/UL (4.20-5.40) L 3.27 M/UL (4.20-5.40) L Hemoglobin 10.9 G/DL (12.0-16.0) L 9.7 G/DL (12.0-16.0) L Hematocrit 33.6 % (37.0-47.0) L 29.7 % (37.0-47.0) L Mean Corpuscular Volume 94 FL (80-99) 91 FL (80-99) Mean Corpuscular Hemoglobin 30.3 PG (27.0-31.0) 29.7 PG (27.0-31.0) Mean Corpuscular Hemoglobin Concent 32.4 G/DL (32.0-36.0) 32.7 G/DL (32.0-36.0) Red Cell Distribution Width 13.9 % (11.6-14.8) 13.7 % (11.6-14.8) Platelet Count 305 K/UL (150-450) 286 K/UL (150-450) Mean Platelet Volume 7.7 FL (6.5-10.1) 7.9 FL (6.5-10.1) Neutrophils (%) (Auto) % (45.0-75.0) 67.6 % (45.0-75.0) Lymphocytes (%) (Auto) % (20.0-45.0) 25.8 % (20.0-45.0) Monocytes (%) (Auto) % (1.0-10.0) 4.9 % (1.0-10.0) Eosinophils (%) (Auto) % (0.0-3.0) 1.3 % (0.0-3.0) Basophils (%) (Auto) % (0.0-2.0) 0.4 % (0.0-2.0) Differential Total Cells Counted 100 Neutrophils % (Manual) 82 % (45-75) H Lymphocytes % (Manual) 13 % (20-45) L Monocytes % (Manual) 5 % (1-10) Eosinophils % (Manual) 0 % (0-3) Basophils % (Manual) 0 % (0-2) Band Neutrophils 0 % (0-8) Platelet Estimate Adequate Platelet Morphology Normal Hypochromasia 1+ Anisocytosis 1+ Sodium Level 140 mEQ/L (135-145) 143 mEQ/L (135-145) Potassium Level 3.5 mEQ/L (3.4-4.9) 3.2 mEQ/L (3.4-4.9) L Chloride Level 92 mEQ/L (98-107) L 100 mEQ/L (98-107) Carbon Dioxide Level 25 mEQ/L (20-30) 31 mEQ/L (20-30) H Anion Gap 23 (5-15) H 12 (5-15) Blood Urea Nitrogen 12 mg/dL (7-23) 11 mg/dL (7-23) Creatinine 1.1 mg/dL (0.5-0.9) H 0.9 mg/dL (0.5-0.9) Estimat Glomerular Filtration Rate > 60 mL/min (>60) > 60 mL/min (>60) Glucose Level 249 mg/dL (74-106) #H 81 mg/dL (74-106) # Hemoglobin A1c 10.7 % (< 6.0) H Calcium Level 9.2 mg/dL (8.6-10.2) 8.5 mg/dL (8.6-10.2) L Phosphorus Level 2.9 mg/dL (2.5-4.8) 2.6 mg/dL (2.5-4.8) Magnesium Level 1.5 mg/dL (1.7-2.5) L 2.3 mg/dL (1.7-2.5) Total Bilirubin 0.2 mg/dL (0.0-1.2) Aspartate Amino Transf (AST/SGOT) 25 U/L (5-40) Alanine Aminotransferase (ALT/SGPT) 12 U/L (3-33) Alkaline Phosphatase 112 U/L (35-104) H Total Protein 6.2 g/dL (6.6-8.7) L Albumin 3.2 g/dL (3.5-5.2) L Globulin 3.0 g/dL Albumin/Globulin Ratio 1.0 (1.0-2.7) Current Medications Medications (Trade) Dose Ordered Sig/Mateo Route PRN Reason Start Time Stop Time Status Last Admin Dose Admin Acetaminophen (Tylenol) 650 mg Q4H PRN ORAL fever 02/01/17 13:00 03/03/17 12:59 Al Hydroxide/Mg Hydroxide (Mylanta II) 30 ml Q6H PRN ORAL dyspepsia 02/01/17 13:00 03/03/17 12:59 Albuterol/ Ipratropium (DuoNeb 0.5-3(2.5)mg/3ml) 3 ml Q4H PRN HHN Shortness of Breath 02/01/17 13:00 02/06/17 12:59 Amlodipine Besylate (Norvasc) 5 mg DAILY ORAL 02/02/17 09:00 03/04/17 08:59 Clonidine HCl (Catapres) 0.1 mg Q4H PRN ORAL sbp more than 160 02/01/17 13:00 03/03/17 12:59 Dextrose (Dextrose 50%) STAT PRN IV Hypoglycemia 02/01/17 13:00 03/03/17 12:59 Heparin Sodium (Porcine) (Heparin 5000 units/ml) 5,000 units EVERY 12 HOURS SUBQ 02/01/17 21:00 03/03/17 20:59 Insulin Aspart (NovoLOG) BEFORE MEALS AND HS SUBQ 02/01/17 16:30 03/03/17 16:29 Insulin Aspart (NovoLOG) 6 units NOVOTIAC SUBQ 02/01/17 16:50 03/03/17 16:49 Insulin Detemir (Levemir) 24 units QHS SUBQ 02/01/17 21:00 03/03/17 20:59 Ketorolac Tromethamine (Toradol 30mg) 30 mg Q6H PRN IV moderate pain 4-6 02/01/17 15:00 02/06/17 14:59 Morphine Sulfate (Morphine Sulfate) 2 mg Q4H PRN IVP pain 4-10 02/01/17 13:00 02/08/17 12:59 Nitroglycerin (Ntg) 0.4 mg Q5M X 3 DOSES PRN SL Prn Chest Pain 02/01/17 12:00 03/03/17 11:59 Ondansetron HCl (Zofran ODT) 4 mg Q6H PRN ORAL Nausea & Vomiting 02/01/17 15:00 03/03/17 14:59 Ondansetron HCl (Zofran) 4 mg Q6H PRN IVP Nausea & Vomiting 02/01/17 13:16 4/10/17 12:59 Polyethylene Glycol (Miralax) 17 gm HSPRN PRN ORAL Constipation 02/01/17 21:00 03/03/17 20:59 UNV Potassium Chloride (KCl 10% 40mEq Oral solution) 40 meq Q4H ORAL 02/01/17 14:45 02/01/17 18:46 UNV Sodium Chloride (Sodium Chloride 1000ml bag) 1,000 ml @ 50 mls/hr Q20H IVLG 02/01/17 13:30 03/03/17 13:29 Temazepam (Restoril) 15 mg HSPRN PRN ORAL Insomnia 02/01/17 21:00 02/08/17 20:59 UNV Choco Lozada M.D. Feb 01, 2017 13:21
[2017-02-01] MEDS: NovoLOG Insulin Flexpen SUBQ SCH ×5 (13:35→21:03)
[2017-02-01 14:22] LABS: TROPONIN I < 0.30 ng/mL (<=0.30)
--- NOTE | 2017-02-01 14:37 | General Progress Note ---
Assessment/Plan Problem List: (1) Yeast UTI ICD Codes: B37.49 - Other urogenital candidiasis SNOMED: 918670402 (2) Diabetes ICD Codes: E11.9 - Type 2 diabetes mellitus without complications SNOMED: 72561450 (3) Diabetic hyperosmolar non-ketotic state ICD Codes: E11.00 - Type 2 diabetes mellitus with hyperosmolarity without nonketotic hyperglycemic-hyperosmolar coma ([facility]) SNOMED: 204582371, 87469241 (4) Anemia ICD Codes: D64.9 - Anemia, unspecified SNOMED: 406565282 Status: progressing Assessment/Plan elevated bg is improving anemia stable h/h reviewed chart and labs Subjective ROS Limited/Unobtainable: Yes Constitutional: Reports: no symptoms Allergies: Coded Allergies: No Known Allergies (Verified , NONE, 10/30/05) Objective Last 24 Hour Vital Signs Date Time Temp Pulse Resp B/P Pulse Ox O2 Delivery O2 Flow Rate FiO2 02/01/17 11:54 163/100 02/01/17 11:00 97 24 154/106 99 Room Air 02/01/17 10:00 103 26 157/117 95 Room Air 02/01/17 09:00 81 25 152/119 99 Room Air 02/01/17 08:57 83 156/100 02/01/17 08:43 83 02/01/17 08:00 97.7 79 19 156/100 93 Room Air 02/01/17 04:00 98.2 77 23 134/80 96 Nasal Cannula 2.0 02/01/17 03:00 76 22 114/72 99 Nasal Cannula 2.0 02/01/17 02:00 76 22 117/77 100 Nasal Cannula 2.0 02/01/17 01:00 76 24 116/85 100 Nasal Cannula 2.0 02/01/17 00:00 98.0 74 23 132/95 100 Nasal Cannula 2.0 01/31/17 23:00 81 24 120/75 98 Nasal Cannula 2.0 01/31/17 22:00 86 22 130/80 98 Nasal Cannula 2.0 01/31/17 21:00 87 23 158/89 98 Nasal Cannula 2.0 01/31/17 20:00 98.4 96 24 130/61 100 Nasal Cannula 2.0 01/31/17 19:00 98 24 163/96 100 Nasal Cannula 2.0 01/31/17 18:00 96 25 126/87 100 Nasal Cannula 2.0 01/31/17 17:43 171/100 01/31/17 17:00 103 20 130/80 99 Nasal Cannula 2.0 01/31/17 16:20 98.0 99 20 154/85 99 Nasal Cannula 2.0 Intake and Output 01/31/17 02/01/17 19:00 07:00 Intake Total 100 ml 1206.51 ml Output Total 720 ml 160 ml Balance -620 ml 1046.51 ml Intake Oral 100 ml IV Total 1206.51 ml Output Urine Total 600 ml 60 ml Emesis 120 ml 100 ml # Voids 2 Laboratory Tests 01/31/17 17:10: White Blood Count 19.7H, Red Blood Count 3.60L, Hemoglobin 10.9L, Hematocrit 33.6L, Mean Corpuscular Volume 94, Mean Corpuscular Hemoglobin 30.3, Mean Corpuscular Hemoglobin Concent 32.4, Red Cell Distribution Width 13.9, Platelet Count 305, Mean Platelet Volume 7.7, Neutrophils (%) (Auto) , Lymphocytes (%) ( Auto) , Monocytes (%) (Auto) , Eosinophils (%) (Auto) , Basophils (%) (Auto) , Differential Total Cells Counted 100, Neutrophils % (Manual) 82H, Lymphocytes % (Manual) 13L, Monocytes % (Manual) 5, Eosinophils % (Manual) 0, Basophils % ( Manual) 0, Band Neutrophils 0, Platelet Estimate Adequate, Platelet Morphology Normal, Hypochromasia 1+, Anisocytosis 1+, Sodium Level 140, Potassium Level 3.5 , Chloride Level 92L, Carbon Dioxide Level 25, Anion Gap 23H, Blood Urea Nitrogen 12, Creatinine 1.1H, Estimat Glomerular Filtration Rate > 60, Glucose Level 249#H, Hemoglobin A1c 10.7H, Calcium Level 9.2, Phosphorus Level 2.9, Magnesium Level 1.5L 02/01/17 04:00: White Blood Count 14.2H, Red Blood Count 3.27L, Hemoglobin 9.7L, Hematocrit 29.7L, Mean Corpuscular Volume 91, Mean Corpuscular Hemoglobin 29.7, Mean Corpuscular Hemoglobin Concent 32.7, Red Cell Distribution Width 13.7, Platelet Count 286, Mean Platelet Volume 7.9, Neutrophils (%) (Auto) 67.6, Lymphocytes (% ) (Auto) 25.8, Monocytes (%) (Auto) 4.9, Eosinophils (%) (Auto) 1.3, Basophils ( %) (Auto) 0.4, Sodium Level 143, Potassium Level 3.2L, Chloride Level 100, Carbon Dioxide Level 31H, Anion Gap 12, Blood Urea Nitrogen 11, Creatinine 0.9, Estimat Glomerular Filtration Rate > 60, Glucose Level 81#, Calcium Level 8.5L, Phosphorus Level 2.6, Magnesium Level 2.3, Total Bilirubin 0.2, Aspartate Amino Transf (AST/SGOT) 25, Alanine Aminotransferase (ALT/SGPT) 12, Alkaline Phosphatase 112H, Total Protein 6.2L, Albumin 3.2L, Globulin 3.0, Albumin/ Globulin Ratio 1.0 02/01/17 13:30: Creatine Kinase MB < 1.5, Troponin I < 0.30 Height (Feet): 5 Height (Inches): 6.00 Weight (Pounds): 116 EENT: PERRL/EOMI Cardiovascular: normal rate Respiratory/Chest: lungs clear Abdomen: soft Rickie Vera MD Feb 01, 2017 14:37
[2017-02-01] MEDS ORDERED: Ketorolac 30mg Inj IV PRN (15:00)
--- NOTE | 2017-02-01 15:07 | Cardiology Report ---
APPROVED REPORT EKG Measurement Heart [id number] Sinus tachycardia Possible Left atrial enlargement Right superior axis deviation Pulmonary disease pattern Right ventricular hypertrophy Abnormal ECG
--- NOTE | 2017-02-01 15:17 | Cardiology Progress Note ---
Assessment/Plan Assessment/Plan chest pain post injectionof oral k pancreatitis abd pain dm intracible nausea nad vomit iv f if k iv pain med iv anti emetic echo ekg trop [id number] Objective Last 24 Hour Vital Signs Date Time Temp Pulse Resp B/P Pulse Ox O2 Delivery O2 Flow Rate FiO2 02/01/17 11:54 163/100 02/01/17 11:00 97 24 154/106 99 Room Air 02/01/17 10:00 103 26 157/117 95 Room Air 02/01/17 09:00 81 25 152/119 99 Room Air 02/01/17 08:57 83 156/100 02/01/17 08:43 83 02/01/17 08:00 97.7 79 19 156/100 93 Room Air 02/01/17 04:00 98.2 77 23 134/80 96 Nasal Cannula 2.0 02/01/17 03:00 76 22 114/72 99 Nasal Cannula 2.0 02/01/17 02:00 76 22 117/77 100 Nasal Cannula 2.0 02/01/17 01:00 76 24 116/85 100 Nasal Cannula 2.0 02/01/17 00:00 98.0 74 23 132/95 100 Nasal Cannula 2.0 01/31/17 23:00 81 24 120/75 98 Nasal Cannula 2.0 01/31/17 22:00 86 22 130/80 98 Nasal Cannula 2.0 01/31/17 21:00 87 23 158/89 98 Nasal Cannula 2.0 01/31/17 20:00 98.4 96 24 130/61 100 Nasal Cannula 2.0 01/31/17 19:00 98 24 163/96 100 Nasal Cannula 2.0 01/31/17 18:00 96 25 126/87 100 Nasal Cannula 2.0 01/31/17 17:43 171/100 01/31/17 17:00 103 20 130/80 99 Nasal Cannula 2.0 01/31/17 16:20 98.0 99 20 154/85 99 Nasal Cannula 2.0 Intake and Output 01/31/17 02/01/17 19:00 07:00 Intake Total 100 ml 1206.51 ml Output Total 720 ml 160 ml Balance -620 ml 1046.51 ml Intake Oral 100 ml IV Total 1206.51 ml Output Urine Total 600 ml 60 ml Emesis 120 ml 100 ml # Voids 2 Laboratory Tests Test 01/31/17 17:10 02/01/17 04:00 02/01/17 13:30 White Blood Count 19.7 K/UL (4.8-10.8) H 14.2 K/UL (4.8-10.8) H Red Blood Count 3.60 M/UL (4.20-5.40) L 3.27 M/UL (4.20-5.40) L Hemoglobin 10.9 G/DL (12.0-16.0) L 9.7 G/DL (12.0-16.0) L Hematocrit 33.6 % (37.0-47.0) L 29.7 % (37.0-47.0) L Mean Corpuscular Volume 94 FL (80-99) 91 FL (80-99) Mean Corpuscular Hemoglobin 30.3 PG (27.0-31.0) 29.7 PG (27.0-31.0) Mean Corpuscular Hemoglobin Concent 32.4 G/DL (32.0-36.0) 32.7 G/DL (32.0-36.0) Red Cell Distribution Width 13.9 % (11.6-14.8) 13.7 % (11.6-14.8) Platelet Count 305 K/UL (150-450) 286 K/UL (150-450) Mean Platelet Volume 7.7 FL (6.5-10.1) 7.9 FL (6.5-10.1) Neutrophils (%) (Auto) % (45.0-75.0) 67.6 % (45.0-75.0) Lymphocytes (%) (Auto) % (20.0-45.0) 25.8 % (20.0-45.0) Monocytes (%) (Auto) % (1.0-10.0) 4.9 % (1.0-10.0) Eosinophils (%) (Auto) % (0.0-3.0) 1.3 % (0.0-3.0) Basophils (%) (Auto) % (0.0-2.0) 0.4 % (0.0-2.0) Differential Total Cells Counted 100 Neutrophils % (Manual) 82 % (45-75) H Lymphocytes % (Manual) 13 % (20-45) L Monocytes % (Manual) 5 % (1-10) Eosinophils % (Manual) 0 % (0-3) Basophils % (Manual) 0 % (0-2) Band Neutrophils 0 % (0-8) Platelet Estimate Adequate Platelet Morphology Normal Hypochromasia 1+ Anisocytosis 1+ Sodium Level 140 mEQ/L (135-145) 143 mEQ/L (135-145) Potassium Level 3.5 mEQ/L (3.4-4.9) 3.2 mEQ/L (3.4-4.9) L Chloride Level 92 mEQ/L (98-107) L 100 mEQ/L (98-107) Carbon Dioxide Level 25 mEQ/L (20-30) 31 mEQ/L (20-30) H Anion Gap 23 (5-15) H 12 (5-15) Blood Urea Nitrogen 12 mg/dL (7-23) 11 mg/dL (7-23) Creatinine 1.1 mg/dL (0.5-0.9) H 0.9 mg/dL (0.5-0.9) Estimat Glomerular Filtration Rate > 60 mL/min (>60) > 60 mL/min (>60) Glucose Level 249 mg/dL (74-106) #H 81 mg/dL (74-106) # Hemoglobin A1c 10.7 % (< 6.0) H Calcium Level 9.2 mg/dL (8.6-10.2) 8.5 mg/dL (8.6-10.2) L Phosphorus Level 2.9 mg/dL (2.5-4.8) 2.6 mg/dL (2.5-4.8) Magnesium Level 1.5 mg/dL (1.7-2.5) L 2.3 mg/dL (1.7-2.5) Total Bilirubin 0.2 mg/dL (0.0-1.2) Aspartate Amino Transf (AST/SGOT) 25 U/L (5-40) Alanine Aminotransferase (ALT/SGPT) 12 U/L (3-33) Alkaline Phosphatase 112 U/L (35-104) H Total Protein 6.2 g/dL (6.6-8.7) L Albumin 3.2 g/dL (3.5-5.2) L Globulin 3.0 g/dL Albumin/Globulin Ratio 1.0 (1.0-2.7) Creatine Kinase MB < 1.5 ng/mL (< 3.8) Troponin I < 0.30 ng/mL (<=0.30) Microbiology Date/Time Source Procedure Growth Status 01/29/17 16:40 Blood Blood Culture - Preliminary NO GROWTH AFTER 24 HOURS Resulted 01/29/17 16:30 Blood Blood Culture - Preliminary NO GROWTH AFTER 24 HOURS Resulted ANTONY COY Feb 01, 2017 15:17
[2017-02-01 16:04] LABS: TROPONIN I < 0.30 ng/mL (<=0.30)
[2017-02-01] MEDS: D5NS 1,000 ML IV SCH (20:53)
[2017-02-01] MEDS ORDERED: Miralax 17gm pkt ORAL PRN (21:00)
[2017-02-01] MEDS ORDERED: NS 275ml ONE (21:56)
--- NOTE | 2017-02-01 21:59 | Consultation ---
DATE OF CONSULTATION: 02/01/2017 CARDIOLOGY CONSULTATION CONSULTING PHYSICIAN: Gokul Tamayo M.D. REFERRING PHYSICIAN: Fred Paz M.D. REASON FOR REFERRAL: Tachycardia and questionable chest pain. HISTORY OF PRESENT ILLNESS: This is a young female, who is really not able to provide any meaningful history whatsoever. The patient has been admitted to the hospital. She has insulin-dependent diabetes and she has chronic pancreatitis, who was brought by the paramedics because of nausea and vomiting. Blood sugar was high and then eventually dropped significantly. I was asked to see her in relation to her tachycardia and pain. According to the nursing staff, she was up on the floor and she was transferred to telemetry. When she got here, she was initially okay. She got potassium orally and she was writhing in pain after the potassium was given. She is really not able to communicate that she is moaning and groaning so much. She is not able to communicate with me at all. The chart indicate that the patient was seen by other physicians. She denied any fevers or chills or blurry vision or headache. No sore throat. No runny nose. No cough. No shortness of breath. No nausea or vomiting. No urinary symptoms. PAST MEDICAL HISTORY: Positive for history of chronic pancreatitis, seizure disorder, diabetic ketoacidosis, intractable nausea and vomiting, gastroparesis, severe dehydration, and acute renal failure. No other history is available. SOCIAL HISTORY: She apparently saw doctors previously, she smoke one pack per day. REVIEW OF SYSTEMS: Nausea and vomiting, as mentioned. Unable to obtain anything else. PHYSICAL EXAMINATION: GENERAL: Shows to a middle-aged female, who is walking from the bathroom back to her bed. She was moaning and groaning in bed and complaining of pain all over including her chest. NECK: Supple. No jugular venous distention. LUNGS: Clear to auscultation and percussion. ascertain. CARDIAC: Regular rhythm. Tachycardic, mild. No RV lift, heaves, or thrills noted. ABDOMEN: Soft and nontender. EXTREMITIES: There is no edema. NEUROLOGIC: She is awake, alert, responsive, and in no apparent respiratory distress. LABORATORY VALUES: White count is down to 14.2 from 21.1 with hemoglobin of 9.7, down from 11.6, and platelet count of 286,000. Sodium is 142, potassium 3.2, chloride 100, bicarbonate 31, BUN 11, creatinine 0.9, and glucose of 81. Calcium is 8.5. Troponin from two hours ago, less than 0.03. EKG of 01/29/2017 shows sinus tachycardia, right bundle branch block morphology, and conduction defect. Otherwise, no abnormalities are noted. There is x-ray of the abdomen that was performed, upper midline calcification, chronic calcifying pancreatitis. ASSESSMENT: 1. Chest pain. 2. Abdominal pain. 3. Chronic pancreatitis. 4. Diabetes mellitus. 5. Dehydration. 6. Electrolyte abnormalities. 7. Sinus tachycardia. PLAN: Dr. Paz, this patient was seen in cardiac consultation with the patient in significant amount of pain from what I understand after ingestion of some potassium orally. That medication was subsequently discontinued. She has been vomiting. She is going to be getting intravenous medication for nausea as well as pain medications. She should probably have an echocardiogram and venous duplex study of the lower extremities to be performed and repeat EKG. Her cardiac enzymes are negative. It is possible that she has had this pain in her chest after ingestion of potassium, secondary to the effect of the potassium itself. Certainly, repeat cardiac enzymes should be performed as well. An EKG has been ordered already and await its completion. Gokul Tamayo M.D. DR: ROSI JOB#: [id number] CC:
[2017-02-01 22:27] LABS: TROPONIN I < 0.30 ng/mL (<=0.30)
[2017-02-02] VITALS: BP 147/99
[2017-02-02 06:09] LABS: BASOPHILS % (AUTO) 0.7 % (0.0-2.0); EOSINOPHILS % (AUTO) 1.7 % (0.0-3.0); LYMPHOCYTES % (AUTO) 24.8 % (20.0-45.0); MEAN CORPUSCULAR HEMOGLOBIN 29.7 PG (27.0-31.0); MEAN CORPUSCULAR HGB CONC 32.6 G/DL (32.0-36.0); MEAN CORPUSCULAR VOLUME 91 FL (80-99); MEAN PLATELET VOLUME 8.9 FL (6.5-10.1); MONOCYTES % (AUTO) 5.7 % (1.0-10.0); NEUTROPHILS % (AUTO) 67.1 % (45.0-75.0); PLATELET COUNT 265 K/UL (150-450); RED BLOOD COUNT 3.33 M/UL (4.20-5.40); RED CELL DISTRIBUTION WIDTH 13.9 % (11.6-14.8); WHITE BLOOD COUNT 14.3 K/UL (4.8-10.8)
[2017-02-02] MEDS: NovoLOG Insulin Flexpen SUBQ SCH ×5 (06:30→20:42)
[2017-02-02 07:12] LABS: TROPONIN I < 0.30 ng/mL (<=0.30)
[2017-02-02 07:21] LABS: ALANINE AMINOTRANSFERASE 11 U/L (3-33); ALBUMIN/GLOBULIN RATIO 1.1 (1.0-2.7); ANION GAP 11 (5-15); ASPARTATE AMINO TRANSFERASE 19 U/L (5-40); CARBON DIOXIDE 32 mEQ/L (20-30); CHLORIDE 98 mEQ/L (98-107); CREATININE 0.9 mg/dL (0.5-0.9); GLOMERULAR FILTRATION RATE > 60 mL/min (>60); HEMOLYSIS 4; MAGNESIUM 1.7 mg/dL (1.7-2.5); PHOSPHORUS 3.1 mg/dL (2.5-4.8); POTASSIUM 3.6 mEQ/L (3.4-4.9); SODIUM 141 mEQ/L (135-145); TOTAL PROTEIN 6.2 g/dL (6.6-8.7)
[2017-02-02 08:00] VITALS: BP 133/95
[2017-02-02] MEDS: Heparin 5000 units/ml inj SUBQ SCH ×2 (09:25→20:39)
[2017-02-02] MEDS ORDERED: Tubing IV Secondary IV ONE ×2 (10:04→10:11)
[2017-02-02] MEDS ORDERED: D5NS 1000ml IV ONE (10:04)
--- NOTE | 2017-02-02 11:09 | General Progress Note ---
Assessment/Plan Problem List: (1) Yeast UTI ICD Codes: B37.49 - Other urogenital candidiasis SNOMED: 807835614 (2) Diabetes ICD Codes: E11.9 - Type 2 diabetes mellitus without complications SNOMED: 79234023 (3) Diabetic hyperosmolar non-ketotic state ICD Codes: E11.00 - Type 2 diabetes mellitus with hyperosmolarity without nonketotic hyperglycemic-hyperosmolar coma ([facility]) SNOMED: 436344811, 76132952 (4) Anemia ICD Codes: D64.9 - Anemia, unspecified SNOMED: 631629816 Status: progressing Assessment/Plan labile bg afebrile vitals stable no acute events Subjective ROS Limited/Unobtainable: Yes Allergies: Coded Allergies: No Known Allergies (Verified , NONE, 10/30/05) Objective Last 24 Hour Vital Signs Date Time Temp Pulse Resp B/P Pulse Ox O2 Delivery O2 Flow Rate FiO2 02/02/17 09:24 84 130/98 02/02/17 08:00 97.5 84 20 133/95 99 Room Air 02/02/17 08:00 77 02/02/17 07:52 80 18 Room Air 02/02/17 04:00 82 02/02/17 00:00 86 02/02/17 00:00 98.2 90 18 147/99 98 Room Air 02/01/17 20:00 97.9 92 20 149/102 100 Room Air 02/01/17 19:31 97 18 Room Air 02/01/17 16:37 97.2 95 18 146/95 100 Room Air 02/01/17 15:55 97.2 02/01/17 11:54 163/100 Intake and Output 02/01/17 02/02/17 19:00 07:00 Intake Total 402 ml 450 ml Output Total 0 ml Balance 402 ml 450 ml IV Total 402 ml 450 ml Output Urine Total 0 ml # Voids 1 Laboratory Tests 02/01/17 13:30: Creatine Kinase MB < 1.5, Troponin I < 0.30 02/01/17 15:40: Troponin I < 0.30 02/01/17 21:48: Troponin I < 0.30 02/02/17 05:50: Troponin I < 0.30, White Blood Count 14.3H, Red Blood Count 3.33L, Hemoglobin 9.9L, Hematocrit 30.3L, Mean Corpuscular Volume 91, Mean Corpuscular Hemoglobin 29.7, Mean Corpuscular Hemoglobin Concent 32.6, Red Cell Distribution Width 13.9 , Platelet Count 265, Mean Platelet Volume 8.9, Neutrophils (%) (Auto) 67.1, Lymphocytes (%) (Auto) 24.8, Monocytes (%) (Auto) 5.7, Eosinophils (%) (Auto) 1.7, Basophils (%) (Auto) 0.7, Sodium Level 141, Potassium Level 3.6, Chloride Level 98, Carbon Dioxide Level 32H, Anion Gap 11, Blood Urea Nitrogen 10, Creatinine 0.9, Estimat Glomerular Filtration Rate > 60, Glucose Level 55L, Calcium Level 9.0, Phosphorus Level 3.1, Magnesium Level 1.7, Total Bilirubin 0.2, Aspartate Amino Transf (AST/SGOT) 19, Alanine Aminotransferase (ALT/SGPT) 11, Alkaline Phosphatase 106H, Pro-B-Type Natriuretic Peptide 293H, Total Protein 6.2L, Albumin 3.3L, Globulin 2.9, Albumin/Globulin Ratio 1.1 Height (Feet): 5 Height (Inches): 6.00 Weight (Pounds): 116 EENT: PERRL/EOMI Cardiovascular: normal rate Respiratory/Chest: lungs clear Rickie Vera MD Feb 02, 2017 11:09
[2017-02-02] MEDS: Morphine Sulfate 2mg/ml Inj IVP PRN ×2 (12:47→20:57)
--- NOTE | 2017-02-02 14:20 | Cardiology Progress Note ---
Assessment/Plan Assessment/Plan chest pain post injectionof oral k pancreatitis abd pain dm intracible nausea nad vomit wide complex tachy (i suspect artifact) ivf iv pain med iv anti emetic echo prelim normal lv function ekg noted repeated trop all 4 are neg she is much improved shortly after my initial evaluation tele showed an episode of wide complex tachy , i see qrs marching through so makes it suspicious for artifact electolyte repletion Subjective Cardiovascular: Denies: chest pain, lightheadedness, palpitations Respiratory: Denies: shortness of breath Gastrointestinal/Abdominal: Denies: abdominal pain, diarrhea, nausea, vomiting Genitourinary: Denies: burning Objective Last 24 Hour Vital Signs Date Time Temp Pulse Resp B/P Pulse Ox O2 Delivery O2 Flow Rate FiO2 02/02/17 13:20 97.5 02/02/17 12:00 88 02/02/17 09:24 84 130/98 02/02/17 08:00 97.5 84 20 133/95 99 Room Air 02/02/17 08:00 77 02/02/17 07:52 80 18 Room Air 02/02/17 04:00 82 02/02/17 00:00 86 02/02/17 00:00 98.2 90 18 147/99 98 Room Air 02/01/17 20:00 97.9 92 20 149/102 100 Room Air 02/01/17 19:31 97 18 Room Air 02/01/17 16:37 97.2 95 18 146/95 100 Room Air General Appearance: alert Neck: supple Cardiovascular: normal rate, regular rhythm Respiratory/Chest: lungs clear, normal breath sounds Abdomen: normal bowel sounds, non tender, soft Extremities: no swelling Intake and Output 02/01/17 02/02/17 19:00 07:00 Intake Total 402 ml 450 ml Output Total 0 ml Balance 402 ml 450 ml IV Total 402 ml 450 ml Output Urine Total 0 ml # Voids 1 Laboratory Tests Test 02/01/17 15:40 02/01/17 21:48 02/02/17 05:50 Troponin I < 0.30 ng/mL (<=0.30) < 0.30 ng/mL (<=0.30) < 0.30 ng/mL (<=0.30) White Blood Count 14.3 K/UL (4.8-10.8) H Red Blood Count 3.33 M/UL (4.20-5.40) L Hemoglobin 9.9 G/DL (12.0-16.0) L Hematocrit 30.3 % (37.0-47.0) L Mean Corpuscular Volume 91 FL (80-99) Mean Corpuscular Hemoglobin 29.7 PG (27.0-31.0) Mean Corpuscular Hemoglobin Concent 32.6 G/DL (32.0-36.0) Red Cell Distribution Width 13.9 % (11.6-14.8) Platelet Count 265 K/UL (150-450) Mean Platelet Volume 8.9 FL (6.5-10.1) Neutrophils (%) (Auto) 67.1 % (45.0-75.0) Lymphocytes (%) (Auto) 24.8 % (20.0-45.0) Monocytes (%) (Auto) 5.7 % (1.0-10.0) Eosinophils (%) (Auto) 1.7 % (0.0-3.0) Basophils (%) (Auto) 0.7 % (0.0-2.0) Sodium Level 141 mEQ/L (135-145) Potassium Level 3.6 mEQ/L (3.4-4.9) Chloride Level 98 mEQ/L (98-107) Carbon Dioxide Level 32 mEQ/L (20-30) H Anion Gap 11 (5-15) Blood Urea Nitrogen 10 mg/dL (7-23) Creatinine 0.9 mg/dL (0.5-0.9) Estimat Glomerular Filtration Rate > 60 mL/min (>60) Glucose Level 55 mg/dL (74-106) L Calcium Level 9.0 mg/dL (8.6-10.2) Phosphorus Level 3.1 mg/dL (2.5-4.8) Magnesium Level 1.7 mg/dL (1.7-2.5) Total Bilirubin 0.2 mg/dL (0.0-1.2) Aspartate Amino Transf (AST/SGOT) 19 U/L (5-40) Alanine Aminotransferase (ALT/SGPT) 11 U/L (3-33) Alkaline Phosphatase 106 U/L (35-104) H Pro-B-Type Natriuretic Peptide 293 pg/mL (0-125) H Total Protein 6.2 g/dL (6.6-8.7) L Albumin 3.3 g/dL (3.5-5.2) L Globulin 2.9 g/dL Albumin/Globulin Ratio 1.1 (1.0-2.7) ANTONY COY Feb 02, 2017 14:20
[2017-02-02 16:00] VITALS: BP 132/92
[2017-02-02] MEDS: D5NS 1,000 ML IV SCH ×2 (17:01→22:00)
[2017-02-02 19:48] VITALS: BP 128/95
[2017-02-02] MEDS ORDERED: Levemir Flexpen SUBQ SCH (21:00)
[2017-02-02] MEDS ORDERED: Ketorolac 30mg Inj IV PRN ×2 (21:49→22:00)
[2017-02-02] MEDS ORDERED: Morphine Sulfate 2mg/ml Inj IVP PRN (22:00)
--- NOTE | 2017-02-02 23:14 | Pulmonology Progress Note ---
Assessment/Plan Problems: (1) Hyperglycemia (2) Abnormal white blood cell (WBC) count (3) Intractable nausea and vomiting Assessment/Plan doing better cardiac evaluation in process BS controlled better med/surg when OK with [place] Subjective ROS Limited/Unobtainable: No Interval Events: no more chest pain Allergies: Coded Allergies: No Known Allergies (Verified , NONE, 10/30/05) Objective Last 24 Hour Vital Signs Date Time Temp Pulse Resp B/P Pulse Ox O2 Delivery O2 Flow Rate FiO2 02/02/17 19:48 97.0 18 128/95 96 Room Air 02/02/17 16:00 97.6 20 132/92 97 Room Air 02/02/17 13:20 97.5 02/02/17 12:00 88 02/02/17 09:24 84 130/98 02/02/17 08:00 97.5 84 20 133/95 99 Room Air 02/02/17 08:00 77 02/02/17 07:52 80 18 Room Air 02/02/17 04:00 82 02/02/17 00:00 86 02/02/17 00:00 98.2 90 18 147/99 98 Room Air Intake and Output 02/01/17 02/02/17 19:00 07:00 Intake Total 402 ml 450 ml Output Total 0 ml Balance 402 ml 450 ml IV Total 402 ml 450 ml Output Urine Total 0 ml # Voids 1 Objective General Appearance: WD/WN HEENT: normocephalic, atraumatic Respiratory/Chest: chest wall non-tender, lungs clear Cardiovascular: normal peripheral pulses, normal rate Abdomen: normal bowel sounds, soft, non tender Extremities: no cyanosis, no clubbing Skin: no rash Laboratory Tests 02/02/17 05:50: White Blood Count 14.3H, Red Blood Count 3.33L, Hemoglobin 9.9L, Hematocrit 30.3L, Mean Corpuscular Volume 91, Mean Corpuscular Hemoglobin 29.7, Mean Corpuscular Hemoglobin Concent 32.6, Red Cell Distribution Width 13.9, Platelet Count 265, Mean Platelet Volume 8.9, Neutrophils (%) (Auto) 67.1, Lymphocytes (% ) (Auto) 24.8, Monocytes (%) (Auto) 5.7, Eosinophils (%) (Auto) 1.7, Basophils ( %) (Auto) 0.7, Sodium Level 141, Potassium Level 3.6, Chloride Level 98, Carbon Dioxide Level 32H, Anion Gap 11, Blood Urea Nitrogen 10, Creatinine 0.9, Estimat Glomerular Filtration Rate > 60, Glucose Level 55L, Calcium Level 9.0, Phosphorus Level 3.1, Magnesium Level 1.7, Total Bilirubin 0.2, Aspartate Amino Transf (AST/SGOT) 19, Alanine Aminotransferase (ALT/SGPT) 11, Alkaline Phosphatase 106H, Troponin I < 0.30, Pro-B-Type Natriuretic Peptide 293H, Total Protein 6.2L, Albumin 3.3L, Globulin 2.9, Albumin/Globulin Ratio 1.1 Current Medications Medications (Trade) Dose Ordered Sig/Mateo Route PRN Reason Start Time Stop Time Status Last Admin Dose Admin Acetaminophen (Tylenol) 650 mg Q4H PRN ORAL fever 02/03/17 01:00 03/05/17 00:59 Al Hydroxide/Mg Hydroxide (Mylanta II) 30 ml Q6H PRN ORAL dyspepsia 02/03/17 01:00 03/05/17 00:59 Albuterol/ Ipratropium (DuoNeb 0.5-3(2.5)mg/3ml) 3 ml Q4H PRN HHN Shortness of Breath 02/03/17 01:00 02/08/17 00:59 Amlodipine Besylate (Norvasc) 5 mg DAILY ORAL 02/03/17 09:00 03/05/17 08:59 Clonidine HCl (Catapres) 0.1 mg Q4H PRN ORAL sbp more than 160 02/03/17 01:00 03/05/17 00:59 Dextrose (Dextrose 50%) STAT PRN IV Hypoglycemia 02/02/17 21:48 03/04/17 21:47 Dextrose/Sodium Chloride (D5ns) 1,000 ml @ 50 mls/hr Q20H IV 02/02/17 22:00 03/04/17 21:59 Heparin Sodium (Porcine) (Heparin 5000 units/ml) 5,000 units EVERY 12 HOURS SUBQ 02/03/17 09:00 03/05/17 08:59 Insulin Aspart (NovoLOG) AC+HS SUBQ 02/03/17 06:30 03/05/17 06:29 Insulin Aspart (NovoLOG) 4 units NOVOTIAC SUBQ 02/03/17 06:30 03/05/17 06:29 Insulin Detemir (Levemir) 18 units QHS SUBQ 02/03/17 21:00 03/05/17 20:59 Ketorolac Tromethamine (Toradol 30mg) 30 mg Q6H PRN IV moderate pain 4-6 02/02/17 21:49 02/07/17 21:48 Morphine Sulfate (Morphine Sulfate) 2 mg Q4H PRN IVP pain 4-10 02/02/17 21:48 02/09/17 21:47 Nitroglycerin (Ntg) 0.4 mg Q5M X 3 DOSES PRN SL Prn Chest Pain 02/02/17 21:45 03/04/17 21:44 Ondansetron HCl (Zofran ODT) 4 mg Q6H PRN ORAL Nausea & Vomiting 02/03/17 03:00 03/05/17 02:59 Ondansetron HCl (Zofran) 4 mg Q6H PRN IVP Nausea & Vomiting 02/03/17 03:15 03/05/17 03:14 Polyethylene Glycol (Miralax) 17 gm HSPRN PRN ORAL Constipation 02/03/17 21:00 03/05/17 20:59 Temazepam (Restoril) 15 mg HSPRN PRN ORAL Insomnia 02/02/17 21:48 02/09/17 21:47 MILA LAINEZ Feb 02, 2017 23:14
[2017-02-03] VITALS: BP 136/99
[2017-02-03] MEDS ORDERED: NovoLOG Insulin Flexpen SUBQ SCH (01:00)
[2017-02-03] MEDS ORDERED: DuoNeb 0.5-3(2.5)mg/3ml neb HHN PRN (01:00)
[2017-02-03] MEDS ORDERED: Mylanta II UD 30ml ORAL PRN (01:00)
[2017-02-03] MEDS: D5NS 1,000 ML IV SCH ×2 (02:46→17:56)
[2017-02-03 04:00] VITALS: BP 130/92
[2017-02-03] MEDS: NovoLOG Insulin Flexpen SUBQ SCH ×7 (06:17→20:36)
--- NOTE | 2017-02-03 07:43 | General Progress Note ---
Assessment/Plan Problem List: (1) DKA (diabetic ketoacidoses) ICD Codes: E13.10 - Other specified diabetes mellitus with ketoacidosis without coma SNOMED: 84672901, 604429315 (2) Hyperglycemia ICD Codes: R73.9 - Hyperglycemia, unspecified SNOMED: 47155168 (3) Diabetes ICD Codes: E11.9 - Type 2 diabetes mellitus without complications SNOMED: 96787320 (4) Abnormal white blood cell (WBC) count ICD Codes: D72.9 - Disorder of white blood cells, unspecified SNOMED: 540930765 (5) ARF (acute renal failure) ICD Codes: N17.9 - Acute kidney failure, unspecified SNOMED: 97654811 Assessment/Plan continue Levemir 18 units qam + Novolog 4 units ac tid + SSI continue IVF Subjective Allergies: Coded Allergies: No Known Allergies (Verified , NONE, 10/30/05) All Systems: reviewed and negative except above Subjective events noted started on clear liquid diet Objective Last 24 Hour Vital Signs Date Time Temp Pulse Resp B/P Pulse Ox O2 Delivery O2 Flow Rate FiO2 02/03/17 04:00 97.0 80 18 130/92 98 Room Air 02/03/17 04:00 70 02/03/17 00:00 73 02/03/17 00:00 97.7 82 20 136/99 100 Room Air 02/02/17 19:48 97.0 18 128/95 96 Room Air 02/02/17 19:10 95 18 Room Air 02/02/17 16:00 97.6 20 132/92 97 Room Air 02/02/17 13:20 97.5 02/02/17 12:00 88 02/02/17 09:24 84 130/98 02/02/17 08:00 97.5 84 20 133/95 99 Room Air 02/02/17 08:00 77 02/02/17 07:52 80 18 Room Air Intake and Output 02/02/17 02/03/17 19:00 07:00 Intake Total 1080 ml 1000 ml Balance 1080 ml 1000 ml Intake Oral 180 ml 500 ml IV Total 900 ml 500 ml # Voids 5 1 Height (Feet): 5 Height (Inches): 6.00 Weight (Pounds): 116 General Appearance: no apparent distress Neck: normal alignment Cardiovascular: regular rhythm Respiratory/Chest: lungs clear Abdomen: normal bowel sounds Pelvis: normal external exam Objective Current Medications Medications (Trade) Dose Ordered Sig/Mateo Route PRN Reason Start Time Stop Time Status Last Admin Dose Admin Acetaminophen (Tylenol) 650 mg Q4H PRN ORAL fever 02/03/17 01:00 03/05/17 00:59 Al Hydroxide/Mg Hydroxide (Mylanta II) 30 ml Q6H PRN ORAL dyspepsia 02/03/17 01:00 03/05/17 00:59 Albuterol/ Ipratropium (DuoNeb 0.5-3(2.5)mg/3ml) 3 ml Q4H PRN HHN Shortness of Breath 02/03/17 01:00 02/08/17 00:59 Amlodipine Besylate (Norvasc) 5 mg DAILY ORAL 02/03/17 09:00 03/05/17 08:59 Clonidine HCl (Catapres) 0.1 mg Q4H PRN ORAL sbp more than 160 02/03/17 01:00 03/05/17 00:59 Dextrose (Dextrose 50%) STAT PRN IV Hypoglycemia 02/02/17 21:48 03/04/17 21:47 Dextrose/Sodium Chloride (D5ns) 1,000 ml @ 50 mls/hr Q20H IV 02/02/17 22:00 03/04/17 21:59 02/03/17 02:46 Heparin Sodium (Porcine) (Heparin 5000 units/ml) 5,000 units EVERY 12 HOURS SUBQ 02/03/17 09:00 03/05/17 08:59 Insulin Aspart (NovoLOG) AC+HS SUBQ 02/03/17 06:30 03/05/17 06:29 Insulin Aspart (NovoLOG) 4 units NOVOTIAC SUBQ 02/03/17 06:30 03/05/17 06:29 Insulin Detemir (Levemir) 18 units QHS SUBQ 02/03/17 21:00 03/05/17 20:59 Ketorolac Tromethamine (Toradol 30mg) 30 mg Q6H PRN IV moderate pain 4-6 02/02/17 21:49 02/07/17 21:48 Morphine Sulfate (Morphine Sulfate) 2 mg Q4H PRN IVP pain 4-10 02/02/17 21:48 02/09/17 21:47 Nitroglycerin (Ntg) 0.4 mg Q5M X 3 DOSES PRN SL Prn Chest Pain 02/02/17 21:45 03/04/17 21:44 Ondansetron HCl (Zofran ODT) 4 mg Q6H PRN ORAL Nausea & Vomiting 02/03/17 03:00 03/05/17 02:59 Ondansetron HCl (Zofran) 4 mg Q6H PRN IVP Nausea & Vomiting 02/03/17 03:15 03/05/17 03:14 Polyethylene Glycol (Miralax) 17 gm HSPRN PRN ORAL Constipation 02/03/17 21:00 03/05/17 20:59 Temazepam (Restoril) 15 mg HSPRN PRN ORAL Insomnia 02/02/17 21:48 02/09/17 21:47 02/03/17 00:14 Item Value Date Time Bedside Blood Glucose 80 mg/dl 02/03/17 0617 Bedside Blood Glucose 181 mg/dl H 02/02/17 2100 Bedside Blood Glucose 180 mg/dl H 02/02/17 1704 Bedside Blood Glucose 132 mg/dl H 02/02/17 1300 Bedside Blood Glucose 204 mg/dl H 02/02/17 0645 FRANCES BRADLEY 13, 2017 07:43
[2017-02-03 08:00] VITALS: BP 145/85
[2017-02-03] MEDS: Heparin 5000 units/ml inj SUBQ SCH ×2 (09:35→20:35)
--- NOTE | 2017-02-03 13:48 | General Progress Note ---
Assessment/Plan Problem List: (1) Anemia ICD Codes: D64.9 - Anemia, unspecified SNOMED: 593625080 (2) Diabetes ICD Codes: E11.9 - Type 2 diabetes mellitus without complications SNOMED: 45883642 (3) Yeast UTI ICD Codes: B37.49 - Other urogenital candidiasis SNOMED: 534108018 (4) DKA (diabetic ketoacidoses) ICD Codes: E13.10 - Other specified diabetes mellitus with ketoacidosis without coma SNOMED: 70395234, 048137416 (5) ARF (acute renal failure) ICD Codes: N17.9 - Acute kidney failure, unspecified SNOMED: 69101171 (6) Abnormal white blood cell (WBC) count ICD Codes: D72.9 - Disorder of white blood cells, unspecified SNOMED: 035872943 (7) Hyperglycemia ICD Codes: R73.9 - Hyperglycemia, unspecified SNOMED: 23260295 (8) Intractable nausea and vomiting ICD Codes: R11.2 - Nausea with vomiting, unspecified SNOMED: 809181193, 983867124 (9) Abdominal pain ICD Codes: R10.9 - Unspecified abdominal pain SNOMED: 64450958, 21523750 Qualifiers: Qualified Codes: R10.13 - Epigastric pain (10) Diabetic hyperosmolar non-ketotic state ICD Codes: E11.00 - Type 2 diabetes mellitus with hyperosmolarity without nonketotic hyperglycemic-hyperosmolar coma ([facility]) SNOMED: 948410109, 88976347 (11) Chest pain at rest ICD Codes: R07.9 - Chest pain, unspecified SNOMED: 8515981 Status: stable, progressing, tolerating diet Assessment/Plan ot pt diet cbc bmp am dc plan Subjective Constitutional: Reports: weakness Allergies: Coded Allergies: No Known Allergies (Verified , NONE, 10/30/05) All Systems: reviewed and negative except above Subjective calm in rivers Objective Last 24 Hour Vital Signs Date Time Temp Pulse Resp B/P Pulse Ox O2 Delivery O2 Flow Rate FiO2 02/03/17 10:17 68 18 Room Air 2.0 21 02/03/17 09:31 68 141/85 02/03/17 08:30 68 18 Room Air 2.0 21 02/03/17 08:13 77 02/03/17 08:00 96.9 68 18 145/85 02/03/17 04:00 97.0 80 18 130/92 98 Room Air 02/03/17 04:00 70 02/03/17 00:00 73 02/03/17 00:00 97.7 82 20 136/99 100 Room Air 02/02/17 19:48 97.0 18 128/95 96 Room Air 02/02/17 19:10 95 18 Room Air 02/02/17 16:00 97.6 20 132/92 97 Room Air Intake and Output 02/02/17 02/03/17 19:00 07:00 Intake Total 1080 ml 1150 ml Balance 1080 ml 1150 ml Intake Oral 180 ml 500 ml IV Total 900 ml 650 ml # Voids 5 1 Laboratory Tests 02/03/17 09:45: Urine HCG, Qualitative Negative Height (Feet): 5 Height (Inches): 6.00 Weight (Pounds): 116 General Appearance: alert EENT: normal ENT inspection Neck: normal alignment Cardiovascular: normal peripheral pulses, normal rate, regular rhythm Respiratory/Chest: chest wall non-tender, lungs clear, normal breath sounds Abdomen: normal bowel sounds, non tender, soft Extremities: normal inspection Edema: no edema noted Arm (L), no edema noted Arm (R), no edema noted Leg (L), no edema noted Leg (R), no edema noted Pedal (L), no edema noted Pedal (R), no edema noted Generalized Neurologic: responsive, motor weakness Skin: normal pigmentation, warm/dry ENOCH GONZALEZ Feb 03, 2017 13:48
--- NOTE | 2017-02-03 13:56 | Cardiology Report ---
APPROVED REPORT EKG Measurement Heart [id number] CT 158P62 [id number] Normal sinus rhythm Possible Lateral infarct, age undetermined Abnormal ECG
--- NOTE | 2017-02-03 15:03 | Cardiology Report ---
APPROVED REPORT EXAM: Two-dimensional and M-mode echocardiogram with Doppler and color Doppler. INDICATION Chest Pain M-Mode DIMENSIONS IVSd0.8 (0.7-1.1cm)Left Atrium (MM)3.4 (1.6-4.0cm) LVDd4.2 (3.5-5.6cm)Aortic Root2.7 (2.0-3.7cm) PWd0.8 (0.7-1.1cm)Aortic Cusp Exc.1.6 (1.5-2.0cm) LVDs2.6 (2.5-4.0cm) PWs1.3 cm Normal left ventricular chamber size, systolic function and wall motion. Left ventricular ejection fraction estimated to be 55 %. No evidence of ventricular hypertrophy. No evidence of pericardial fat or effusion. All other cardiac chamber sizes are within normal limits. Mild focal aortic valve sclerosis with adequate cusp excursion. Mildly thickened mitral valve leaflets with normal excursion. Mild mitral annulus and aortic root calcification. Normal pulmonic valve structure. Normal tricuspid valve structure. IVC at normal size with physiologic collapse. A color flow and spectral Doppler study was performed and revealed: No aortic regurgitation. Trace mitral regurgitation. Mitral diastolic velocities suggest reduced left ventricular relaxation (Grade I). Trace tricuspid regurgitation. Tricuspid systolic velocities suggests peak right ventricular systolic pressure of 18 mmHg. No pulmonic regurgitation present.
--- NOTE | 2017-02-03 15:33 | Pulmonology Progress Note ---
Assessment/Plan Problems: (1) Chest pain at rest (2) Hyperglycemia (3) Abnormal white blood cell (WBC) count (4) Intractable nausea and vomiting (5) Diabetic hyperosmolar non-ketotic state Assessment/Plan doing better cardiac evaluation in process BS controlled better med/surg when OK with [place] ? tachycardia Subjective ROS Limited/Unobtainable: No Allergies: Coded Allergies: No Known Allergies (Verified , NONE, 10/30/05) Objective Last 24 Hour Vital Signs Date Time Temp Pulse Resp B/P Pulse Ox O2 Delivery O2 Flow Rate FiO2 02/03/17 10:17 68 18 Room Air 2.0 21 02/03/17 09:31 68 141/85 02/03/17 08:30 68 18 Room Air 2.0 21 02/03/17 08:13 77 02/03/17 08:00 96.9 68 18 145/85 02/03/17 04:00 97.0 80 18 130/92 98 Room Air 02/03/17 04:00 70 02/03/17 00:00 73 02/03/17 00:00 97.7 82 20 136/99 100 Room Air 02/02/17 19:48 97.0 18 128/95 96 Room Air 02/02/17 19:10 95 18 Room Air 02/02/17 16:00 97.6 20 132/92 97 Room Air Intake and Output 02/02/17 02/03/17 19:00 07:00 Intake Total 1080 ml 1150 ml Balance 1080 ml 1150 ml Intake Oral 180 ml 500 ml IV Total 900 ml 650 ml # Voids 5 1 Objective General Appearance: WD/WN HEENT: normocephalic, atraumatic Respiratory/Chest: chest wall non-tender, lungs clear Cardiovascular: normal peripheral pulses, normal rate Abdomen: normal bowel sounds, soft, non tender Extremities: no cyanosis, no clubbing Skin: no rash Laboratory Tests 02/03/17 09:45: Urine HCG, Qualitative Negative Current Medications Medications (Trade) Dose Ordered Sig/Mateo Route PRN Reason Start Time Stop Time Status Last Admin Dose Admin Acetaminophen (Tylenol) 650 mg Q4H PRN ORAL fever 02/03/17 01:00 03/05/17 00:59 Al Hydroxide/Mg Hydroxide (Mylanta II) 30 ml Q6H PRN ORAL dyspepsia 02/03/17 01:00 03/05/17 00:59 Albuterol/ Ipratropium (DuoNeb 0.5-3(2.5)mg/3ml) 3 ml Q4H PRN HHN Shortness of Breath 02/03/17 01:00 02/08/17 00:59 Amlodipine Besylate (Norvasc) 5 mg DAILY ORAL 02/03/17 09:00 03/05/17 08:59 02/03/17 09:31 Clonidine HCl (Catapres) 0.1 mg Q4H PRN ORAL sbp more than 160 02/03/17 01:00 03/05/17 00:59 Dextrose (Dextrose 50%) STAT PRN IV Hypoglycemia 02/02/17 21:48 03/04/17 21:47 Dextrose/Sodium Chloride (D5ns) 1,000 ml @ 50 mls/hr Q20H IV 02/02/17 22:00 03/04/17 21:59 02/03/17 02:46 Heparin Sodium (Porcine) (Heparin 5000 units/ml) 5,000 units EVERY 12 HOURS SUBQ 02/03/17 09:00 03/05/17 08:59 02/03/17 09:35 Insulin Aspart (NovoLOG) AC+HS SUBQ 02/03/17 06:30 03/05/17 06:29 Insulin Aspart (NovoLOG) 4 units NOVOTIAC SUBQ 02/03/17 06:30 03/05/17 06:29 Insulin Detemir (Levemir) 18 units QHS SUBQ 02/03/17 21:00 03/05/17 20:59 Ketorolac Tromethamine (Toradol 30mg) 30 mg Q6H PRN IV moderate pain 4-6 02/02/17 21:49 02/07/17 21:48 Morphine Sulfate (Morphine Sulfate) 2 mg Q4H PRN IVP pain 4-10 02/02/17 21:48 02/09/17 21:47 Nitroglycerin (Ntg) 0.4 mg Q5M X 3 DOSES PRN SL Prn Chest Pain 02/02/17 21:45 03/04/17 21:44 Ondansetron HCl (Zofran ODT) 4 mg Q6H PRN ORAL Nausea & Vomiting 02/03/17 03:00 03/05/17 02:59 Ondansetron HCl (Zofran) 4 mg Q6H PRN IVP Nausea & Vomiting 02/03/17 03:15 03/05/17 03:14 Polyethylene Glycol (Miralax) 17 gm HSPRN PRN ORAL Constipation 02/03/17 21:00 03/05/17 20:59 Temazepam (Restoril) 15 mg HSPRN PRN ORAL Insomnia 02/02/17 21:48 02/09/17 21:47 02/03/17 00:14 MILA LAINEZ Feb 03, 2017 15:33
[2017-02-03] MEDS: Nitroglycerin Subl 0.4mg tab (Bottle Of 25) SL PRN ×2 (15:45→15:55)
[2017-02-03 16:00] VITALS: BP 164/76
--- NOTE | 2017-02-03 16:01 | Infectious Diseases Prog Note ---
Assessment/Plan Problems: (1) Chest pain at rest Assessment & Plan: improved, troponin x3 was negative . cardiology is following (2) Abnormal white blood cell (WBC) count Assessment & Plan: suspect reactive due to DKA , and dehydration, await blood culture and monitor counts off antibiotics for now. UA and CXR are not suggestive of infection (3) Diabetes Assessment & Plan: poorly controled, recommend tight glycemic control to keep blood glucose less than 130 before meals and less than 120 fasting (4) ARF (acute renal failure) Assessment & Plan: improving , due to dehydration, continue IVF for hydration , monitor renal function test . (5) DKA (diabetic ketoacidoses) Assessment & Plan: due to non compliance with insulin , continue insulin treatment and hydration, monitor blood glucose, needs diabetic teaching Subjective Constitutional: Denies: anorexia, chills, drenching sweats, fatigue, fever, no symptoms, other HEENT: Denies: congestion, coryza, dysphagia, hearing change, no symptoms, other, visual change Respiratory: Denies: dry cough, no symptoms, other, productive cough, shortness of breath Breasts: Denies: discharge, no symptoms, other, swelling, tenderness Cardiovascular: Denies: chest pain, dyspnea on exertion, no symptoms, other, palpitations Gastrointestinal/Abdominal: Denies: bloating, blood in stool, constipation, diarrhea, nausea, no symptoms, other, vomiting Genitourinary: Denies: dysuria, frequency, hematuria, last menstrual period, no symptoms, nocturia, other, vaginal bleed/discharge Neurologic: Denies: confusion, headache, no symptoms, numbness, other, weakness Psychiatric: Denies: anxiety, depression, no symptoms, other Skin: Denies: no symptoms, other, rash, ulcer Endocrine: Denies: feels cold, feels warm, no symptoms, other Allergies: Coded Allergies: No Known Allergies (Verified , NONE, 10/30/05) Objective Vital Signs Last 24 Hour Vital Signs Date Time Temp Pulse Resp B/P Pulse Ox O2 Delivery O2 Flow Rate FiO2 02/03/17 15:55 134/109 02/03/17 15:45 166/101 02/03/17 10:17 68 18 Room Air 2.0 02/03/17 09:31 68 141/85 02/03/17 08:30 68 18 Room Air 2.0 21 02/03/17 08:13 77 02/03/17 08:00 96.9 68 18 145/85 02/03/17 04:00 97.0 80 18 130/92 98 Room Air 02/03/17 04:00 70 02/03/17 00:00 73 02/03/17 00:00 97.7 82 20 136/99 100 Room Air 02/02/17 19:48 97.0 18 128/95 96 Room Air 02/02/17 19:10 95 18 Room Air 02/02/17 16:00 97.6 20 132/92 97 Room Air Height (Feet): 5 Height (Inches): 6.00 Weight (Pounds): 116 General Appearance: WD/WN, no acute distress HEENT: normocephalic, atraumatic, anicteric, mucous membranes moist Respiratory/Chest: chest wall non-tender, lungs clear, normal breath sounds, no respiratory distress, no accessory muscle use Cardiovascular: normal peripheral pulses, normal rate, regular rhythm, no gallop/murmur Abdomen: normal bowel sounds, soft, non tender, no organomegaly, non distended Extremities: no cyanosis, no clubbing Skin: no rash, no lesions Laboratory Tests Test 02/03/17 09:45 Urine HCG, Qualitative Negative Current Medications Medications (Trade) Dose Ordered Sig/Mateo Route PRN Reason Start Time Stop Time Status Last Admin Dose Admin Acetaminophen (Tylenol) 650 mg Q4H PRN ORAL fever 02/03/17 01:00 03/05/17 00:59 Al Hydroxide/Mg Hydroxide (Mylanta II) 30 ml Q6H PRN ORAL dyspepsia 02/03/17 01:00 03/05/17 00:59 Albuterol/ Ipratropium (DuoNeb 0.5-3(2.5)mg/3ml) 3 ml Q4H PRN HHN Shortness of Breath 02/03/17 01:00 02/08/17 00:59 Amlodipine Besylate (Norvasc) 5 mg DAILY ORAL 02/03/17 09:00 03/05/17 08:59 02/03/17 09:31 Clonidine HCl (Catapres) 0.1 mg Q4H PRN ORAL sbp more than 160 02/03/17 01:00 03/05/17 00:59 Dextrose (Dextrose 50%) STAT PRN IV Hypoglycemia 02/02/17 21:48 03/04/17 21:47 Dextrose/Sodium Chloride (D5ns) 1,000 ml @ 50 mls/hr Q20H IV 02/02/17 22:00 03/04/17 21:59 02/03/17 02:46 Heparin Sodium (Porcine) (Heparin 5000 units/ml) 5,000 units EVERY 12 HOURS SUBQ 02/03/17 09:00 03/05/17 08:59 02/03/17 09:35 Insulin Aspart (NovoLOG) AC+HS SUBQ 02/03/17 06:30 03/05/17 06:29 Insulin Aspart (NovoLOG) 4 units NOVOTIAC SUBQ 02/03/17 06:30 03/05/17 06:29 Insulin Detemir (Levemir) 18 units QHS SUBQ 02/03/17 21:00 03/05/17 20:59 Ketorolac Tromethamine (Toradol 30mg) 30 mg Q6H PRN IV moderate pain 4-6 02/02/17 21:49 02/07/17 21:48 Morphine Sulfate (Morphine Sulfate) 2 mg Q4H PRN IVP pain 4-10 02/02/17 21:48 02/09/17 21:47 Nitroglycerin (Ntg) 0.4 mg Q5M X 3 DOSES PRN SL Prn Chest Pain 02/02/17 21:45 03/04/17 21:44 02/03/17 15:55 Ondansetron HCl (Zofran ODT) 4 mg Q6H PRN ORAL Nausea & Vomiting 02/03/17 03:00 03/05/17 02:59 Ondansetron HCl (Zofran) 4 mg Q6H PRN IVP Nausea & Vomiting 02/03/17 03:15 03/05/17 03:14 Polyethylene Glycol (Miralax) 17 gm HSPRN PRN ORAL Constipation 02/03/17 21:00 03/05/17 20:59 Temazepam (Restoril) 15 mg HSPRN PRN ORAL Insomnia 02/02/17 21:48 02/09/17 21:47 02/03/17 00:14 Choco Lozada M.D. Feb 03, 2017 16:01
--- NOTE | 2017-02-03 19:51 | Cardiology Report ---
APPROVED REPORT EKG Measurement Heart [id number] SD 170P71 [id number] Normal sinus rhythm Left anterior fascicular block T wave abnormality, consider anterior ischemia Prolonged QT Abnormal ECG
[2017-02-03 20:00] VITALS: BP 145/93
[2017-02-03] MEDS: Morphine Sulfate 2mg/ml Inj IVP PRN (20:31)
[2017-02-03] MEDS ORDERED: Levemir Flexpen SUBQ SCH (21:00)
[2017-02-03] MEDS ORDERED: Miralax 17gm pkt ORAL PRN (21:00)
[2017-02-04] VITALS: BP 138/85
--- NOTE | 2017-02-04 06:18 | General Progress Note ---
Assessment/Plan Problem List: (1) DKA (diabetic ketoacidoses) ICD Codes: E13.10 - Other specified diabetes mellitus with ketoacidosis without coma SNOMED: 03135533, 765103434 (2) Hyperglycemia ICD Codes: R73.9 - Hyperglycemia, unspecified SNOMED: 34020607 (3) Diabetes ICD Codes: E11.9 - Type 2 diabetes mellitus without complications SNOMED: 66046337 (4) Abnormal white blood cell (WBC) count ICD Codes: D72.9 - Disorder of white blood cells, unspecified SNOMED: 996883237 (5) ARF (acute renal failure) ICD Codes: N17.9 - Acute kidney failure, unspecified SNOMED: 20429183 Assessment/Plan reduce Levemir to 15 units qhs continue Novolog 4 units ac tid + SSI continue IVF Subjective Allergies: Coded Allergies: No Known Allergies (Verified , NONE, 10/30/05) All Systems: reviewed and negative except above Subjective vomited this morning Objective Last 24 Hour Vital Signs Date Time Temp Pulse Resp B/P Pulse Ox O2 Delivery O2 Flow Rate FiO2 02/04/17 04:00 84 02/04/17 00:00 98.0 108 20 138/85 98 Room Air 02/04/17 00:00 97 02/03/17 20:00 109 02/03/17 20:00 98.1 107 20 145/93 98 Room Air 02/03/17 19:00 79 16 Room Air 02/03/17 16:00 120 02/03/17 16:00 97.3 113 20 164/76 100 Room Air 02/03/17 15:55 134/109 02/03/17 15:45 166/101 02/03/17 10:17 68 18 Room Air 2.0 21 02/03/17 09:31 68 141/85 02/03/17 08:30 68 18 Room Air 2.0 21 02/03/17 08:13 77 02/03/17 08:00 96.9 68 18 145/85 Intake and Output 02/03/17 02/04/17 19:00 07:00 Intake Total 565 ml 400 ml Balance 565 ml 400 ml IV Total 565 ml 400 ml # Voids 1 1 Laboratory Tests 02/03/17 09:45: Urine HCG, Qualitative Negative Height (Feet): 5 Height (Inches): 6.00 Weight (Pounds): 116 General Appearance: no apparent distress Neck: normal alignment Cardiovascular: normal rate Respiratory/Chest: lungs clear Abdomen: normal bowel sounds Edema: no edema noted Arm (L), no edema noted Arm (R), no edema noted Leg (L), no edema noted Leg (R), no edema noted Pedal (L), no edema noted Pedal (R), no edema noted Generalized Objective Current Medications Medications (Trade) Dose Ordered Sig/Mateo Route PRN Reason Start Time Stop Time Status Last Admin Dose Admin Acetaminophen (Tylenol) 650 mg Q4H PRN ORAL fever 02/03/17 01:00 03/05/17 00:59 Al Hydroxide/Mg Hydroxide (Mylanta II) 30 ml Q6H PRN ORAL dyspepsia 02/03/17 01:00 03/05/17 00:59 Albuterol/ Ipratropium (DuoNeb 0.5-3(2.5)mg/3ml) 3 ml Q4H PRN HHN Shortness of Breath 02/03/17 01:00 02/08/17 00:59 Amlodipine Besylate (Norvasc) 5 mg DAILY ORAL 02/03/17 09:00 03/05/17 08:59 02/03/17 09:31 Clonidine HCl (Catapres) 0.1 mg Q4H PRN ORAL sbp more than 160 02/03/17 01:00 03/05/17 00:59 Dextrose (Dextrose 50%) STAT PRN IV Hypoglycemia 02/02/17 21:48 03/04/17 21:47 Dextrose/Sodium Chloride (D5ns) 1,000 ml @ 50 mls/hr Q20H IV 02/02/17 22:00 03/04/17 21:59 02/03/17 17:56 Heparin Sodium (Porcine) (Heparin 5000 units/ml) 5,000 units EVERY 12 HOURS SUBQ 02/03/17 09:00 03/05/17 08:59 02/03/17 20:35 Insulin Aspart (NovoLOG) AC+HS SUBQ 02/03/17 06:30 03/05/17 06:29 02/03/17 20:36 Insulin Aspart (NovoLOG) 4 units NOVOTIAC SUBQ 02/03/17 06:30 03/05/17 06:29 02/03/17 16:31 Insulin Detemir (Levemir) 18 units QHS SUBQ 02/03/17 21:00 03/05/17 20:59 02/03/17 20:37 Ketorolac Tromethamine (Toradol 30mg) 30 mg Q6H PRN IV moderate pain 4-6 02/02/17 21:49 02/07/17 21:48 Morphine Sulfate (Morphine Sulfate) 2 mg Q4H PRN IVP pain 4-10 02/02/17 21:48 02/09/17 21:47 02/03/17 20:31 Nitroglycerin (Ntg) 0.4 mg Q5M X 3 DOSES PRN SL Prn Chest Pain 02/02/17 21:45 03/04/17 21:44 02/03/17 15:55 Ondansetron HCl (Zofran ODT) 4 mg Q6H PRN ORAL Nausea & Vomiting 02/03/17 03:00 03/05/17 02:59 Ondansetron HCl (Zofran) 4 mg Q6H PRN IVP Nausea & Vomiting 02/03/17 03:15 03/05/17 03:14 02/04/17 00:02 Polyethylene Glycol (Miralax) 17 gm HSPRN PRN ORAL Constipation 02/03/17 21:00 03/05/17 20:59 Temazepam (Restoril) 15 mg HSPRN PRN ORAL Insomnia 02/02/17 21:48 02/09/17 21:47 02/03/17 00:14 Item Value Date Time Bedside Blood Glucose 122 mg/dl H 02/03/17 2100 Bedside Blood Glucose 136 mg/dl H 02/03/17 1631 Bedside Blood Glucose 71 mg/dl 02/03/17 1122 Bedside Blood Glucose 80 mg/dl 02/03/17 0617 FRANCES BRADLEY 14, 2017 06:18
[2017-02-04] MEDS: NovoLOG Insulin Flexpen SUBQ SCH ×8 (06:30→21:53)
[2017-02-04 06:37] LABS: BASOPHILS % (AUTO) 0.6 % (0.0-2.0); EOSINOPHILS % (AUTO) 0.5 % (0.0-3.0); LYMPHOCYTES % (AUTO) 21.2 % (20.0-45.0); MEAN CORPUSCULAR HEMOGLOBIN 29.8 PG (27.0-31.0); MEAN CORPUSCULAR HGB CONC 32.5 G/DL (32.0-36.0); MEAN CORPUSCULAR VOLUME 92 FL (80-99); MEAN PLATELET VOLUME 8.3 FL (6.5-10.1); MONOCYTES % (AUTO) 4.7 % (1.0-10.0); NEUTROPHILS % (AUTO) 72.9 % (45.0-75.0); PLATELET COUNT 281 K/UL (150-450); RED BLOOD COUNT 3.97 M/UL (4.20-5.40); RED CELL DISTRIBUTION WIDTH 13.8 % (11.6-14.8); WHITE BLOOD COUNT 15.3 K/UL (4.8-10.8)
[2017-02-04 07:04] LABS: ANION GAP 12 (5-15); CALCIUM 9.2 mg/dL (8.6-10.2); CARBON DIOXIDE 36 mEQ/L (20-30); CHLORIDE 97 mEQ/L (98-107); CREATININE 0.9 mg/dL (0.5-0.9); GLOMERULAR FILTRATION RATE > 60 mL/min (>60); HEMOLYSIS 0; POTASSIUM 3.7 mEQ/L (3.4-4.9); SODIUM 145 mEQ/L (135-145)
[2017-02-04 08:00] VITALS: BP 145/70
[2017-02-04] MEDS: Morphine Sulfate 2mg/ml Inj IVP PRN ×3 (09:14→21:05)
[2017-02-04] MEDS: Heparin 5000 units/ml inj SUBQ SCH ×2 (09:19→21:00)
--- NOTE | 2017-02-04 10:27 | Cardiology Progress Note ---
Assessment/Plan Assessment/Plan chest pain possibel chest wall tenderness pancreatitis abd pain dm intractable nausea nad vomit wide complex tachy artifact echo normal lv function ekg neg 2 ramses go trop all 4 are neg she c/o cp yest bu refused all ekg anad trop adn for while staff wre not able to locate her now co cp again and tenderness of the chest wall on my palp will reorder ekg adn trop the tachy noted 2 days ago was artifact Subjective Cardiovascular: Denies: chest pain, lightheadedness Respiratory: Denies: shortness of breath Gastrointestinal/Abdominal: Reports: abdominal pain Genitourinary: Denies: burning Objective Last 24 Hour Vital Signs Date Time Temp Pulse Resp B/P Pulse Ox O2 Delivery O2 Flow Rate FiO2 02/04/17 09:14 72 138/85 02/04/17 08:00 97.0 70 17 145/70 93 Room Air 02/04/17 07:25 72 16 Room Air 02/04/17 04:00 84 02/04/17 00:00 98.0 108 20 138/85 98 Room Air 02/04/17 00:00 97 02/03/17 20:00 109 02/03/17 20:00 98.1 107 20 145/93 98 Room Air 02/03/17 19:00 79 16 Room Air 02/03/17 16:00 120 02/03/17 16:00 97.3 113 20 164/76 100 Room Air 02/03/17 15:55 134/109 02/03/17 15:45 166/101 General Appearance: no apparent distress, alert Neck: supple Cardiovascular: normal rate, regular rhythm Respiratory/Chest: lungs clear, other - chest wall tenderness Abdomen: non tender, soft Extremities: no swelling Intake and Output 02/03/17 02/04/17 19:00 07:00 Intake Total 565 ml 450 ml Output Total 250 ml Balance 565 ml 200 ml Intake Oral 50 ml IV Total 565 ml 400 ml Emesis 250 ml # Voids 1 3 Laboratory Tests Test 02/04/17 05:30 White Blood Count 15.3 K/UL (4.8-10.8) H Red Blood Count 3.97 M/UL (4.20-5.40) L Hemoglobin 11.8 G/DL (12.0-16.0) L Hematocrit 36.4 % (37.0-47.0) L Mean Corpuscular Volume 92 FL (80-99) Mean Corpuscular Hemoglobin 29.8 PG (27.0-31.0) Mean Corpuscular Hemoglobin Concent 32.5 G/DL (32.0-36.0) Red Cell Distribution Width 13.8 % (11.6-14.8) Platelet Count 281 K/UL (150-450) Mean Platelet Volume 8.3 FL (6.5-10.1) Neutrophils (%) (Auto) 72.9 % (45.0-75.0) Lymphocytes (%) (Auto) 21.2 % (20.0-45.0) Monocytes (%) (Auto) 4.7 % (1.0-10.0) Eosinophils (%) (Auto) 0.5 % (0.0-3.0) Basophils (%) (Auto) 0.6 % (0.0-2.0) Sodium Level 145 mEQ/L (135-145) Potassium Level 3.7 mEQ/L (3.4-4.9) Chloride Level 97 mEQ/L (98-107) L Carbon Dioxide Level 36 mEQ/L (20-30) H Anion Gap 12 (5-15) Blood Urea Nitrogen 5 mg/dL (7-23) L Creatinine 0.9 mg/dL (0.5-0.9) Estimat Glomerular Filtration Rate > 60 mL/min (>60) Glucose Level 114 mg/dL (74-106) H Calcium Level 9.2 mg/dL (8.6-10.2) ANTONY COY Feb 04, 2017 10:27
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
[2017-02-04 11:10] LABS: TROPONIN I < 0.30 ng/mL (<=0.30)
[2017-02-04 11:13] LABS: AMYLASE 150 U/L (10-110)
[2017-02-04 11:16] LABS: LIPASE 5 U/L (< 60)
[2017-02-04 12:00] VITALS: BP 166/98
--- NOTE | 2017-02-04 14:54 | General Progress Note ---
Assessment/Plan Problem List: (1) Anemia ICD Codes: D64.9 - Anemia, unspecified SNOMED: 966280374 (2) Diabetes ICD Codes: E11.9 - Type 2 diabetes mellitus without complications SNOMED: 58755617 (3) Yeast UTI ICD Codes: B37.49 - Other urogenital candidiasis SNOMED: 202033729 (4) DKA (diabetic ketoacidoses) ICD Codes: E13.10 - Other specified diabetes mellitus with ketoacidosis without coma SNOMED: 94745478, 557855453 (5) ARF (acute renal failure) ICD Codes: N17.9 - Acute kidney failure, unspecified SNOMED: 86672731 (6) Abnormal white blood cell (WBC) count ICD Codes: D72.9 - Disorder of white blood cells, unspecified SNOMED: 126677310 (7) Hyperglycemia ICD Codes: R73.9 - Hyperglycemia, unspecified SNOMED: 62111669 (8) Intractable nausea and vomiting ICD Codes: R11.2 - Nausea with vomiting, unspecified SNOMED: 278447520, 848364808 (9) Abdominal pain ICD Codes: R10.9 - Unspecified abdominal pain SNOMED: 61475997, 68997483 Qualifiers: Qualified Codes: R10.13 - Epigastric pain (10) Diabetic hyperosmolar non-ketotic state ICD Codes: E11.00 - Type 2 diabetes mellitus with hyperosmolarity without nonketotic hyperglycemic-hyperosmolar coma ([facility]) SNOMED: 888707129, 75908370 (11) Chest pain at rest ICD Codes: R07.9 - Chest pain, unspecified SNOMED: 1942925 Status: stable, progressing, tolerating diet Assessment/Plan ot pt diet abx per id cbc bmp am Subjective Constitutional: Reports: weakness Allergies: Coded Allergies: No Known Allergies (Verified , NONE, 10/30/05) All Systems: reviewed and negative except above Subjective calm sleepy Objective Last 24 Hour Vital Signs Date Time Temp Pulse Resp B/P Pulse Ox O2 Delivery O2 Flow Rate FiO2 02/04/17 12:00 97 02/04/17 12:00 97.4 88 17 166/98 95 02/04/17 09:14 72 138/85 02/04/17 08:00 93 02/04/17 08:00 97.0 70 17 145/70 93 Room Air 02/04/17 07:25 72 16 Room Air 02/04/17 04:00 84 02/04/17 00:00 98.0 108 20 138/85 98 Room Air 02/04/17 00:00 97 02/03/17 20:00 109 02/03/17 20:00 98.1 107 20 145/93 98 Room Air 02/03/17 19:00 79 16 Room Air 02/03/17 16:00 120 02/03/17 16:00 97.3 113 20 164/76 100 Room Air 02/03/17 15:55 134/109 02/03/17 15:45 166/101 Intake and Output 02/03/17 02/04/17 19:00 07:00 Intake Total 565 ml 450 ml Output Total 250 ml Balance 565 ml 200 ml Intake Oral 50 ml IV Total 565 ml 400 ml Emesis 250 ml # Voids 1 3 Laboratory Tests 02/04/17 05:30: White Blood Count 15.3H, Red Blood Count 3.97L, Hemoglobin 11.8L, Hematocrit 36.4L, Mean Corpuscular Volume 92, Mean Corpuscular Hemoglobin 29.8, Mean Corpuscular Hemoglobin Concent 32.5, Red Cell Distribution Width 13.8, Platelet Count 281, Mean Platelet Volume 8.3, Neutrophils (%) (Auto) 72.9, Lymphocytes (% ) (Auto) 21.2, Monocytes (%) (Auto) 4.7, Eosinophils (%) (Auto) 0.5, Basophils ( %) (Auto) 0.6, Sodium Level 145, Potassium Level 3.7, Chloride Level 97L, Carbon Dioxide Level 36H, Anion Gap 12, Blood Urea Nitrogen 5L, Creatinine 0.9, Estimat Glomerular Filtration Rate > 60, Glucose Level 114H, Calcium Level 9.2, Troponin I < 0.30, Amylase Level 150H, Lipase 5 Height (Feet): 5 Height (Inches): 6.00 Weight (Pounds): 116 General Appearance: lethargic EENT: normal ENT inspection Neck: normal alignment Cardiovascular: normal peripheral pulses, normal rate, regular rhythm Respiratory/Chest: chest wall non-tender, lungs clear, normal breath sounds Abdomen: normal bowel sounds, non tender, soft Extremities: normal inspection Edema: no edema noted Arm (L), no edema noted Arm (R), no edema noted Leg (L), no edema noted Leg (R), no edema noted Pedal (L), no edema noted Pedal (R), no edema noted Generalized Neurologic: responsive, motor weakness Skin: normal pigmentation, warm/dry ENOCH GONZALEZ Feb 04, 2017 14:54
--- NOTE | 2017-02-04 16:18 | Infectious Diseases Prog Note ---
Assessment/Plan Problems: (1) Chest pain at rest Assessment & Plan: with negative CT angio of the lungs for PE, and negative troponin x3 , suspect musculoskeletal. cardiology is following (2) Abnormal white blood cell (WBC) count Assessment & Plan: suspect reactive due to dehydration, blood culture is negative, monitor counts off antibiotics for now. UA and CXR are not suggestive of infection (3) Diabetes Assessment & Plan: poorly controled, recommend tight glycemic control to keep blood glucose less than 130 before meals and less than 120 fasting (4) ARF (acute renal failure) Assessment & Plan: improving , due to dehydration, continue IVF for hydration , monitor renal function test . (5) DKA (diabetic ketoacidoses) Assessment & Plan: due to non compliance with insulin , continue insulin treatment and hydration, monitor blood glucose, needs diabetic teaching Subjective Constitutional: Denies: anorexia, chills, drenching sweats, fatigue, fever, no symptoms, other HEENT: Denies: congestion, coryza, dysphagia, hearing change, no symptoms, other, visual change Respiratory: Denies: dry cough, no symptoms, other, productive cough, shortness of breath Breasts: Denies: discharge, no symptoms, other, swelling, tenderness Cardiovascular: Denies: chest pain, dyspnea on exertion, no symptoms, other, palpitations Gastrointestinal/Abdominal: Denies: bloating, blood in stool, constipation, diarrhea, nausea, no symptoms, other, vomiting Genitourinary: Denies: dysuria, frequency, hematuria, last menstrual period, no symptoms, nocturia, other, vaginal bleed/discharge Neurologic: Denies: confusion, headache, no symptoms, numbness, other, weakness Psychiatric: Reports: depression Skin: Denies: no symptoms, other, rash, ulcer Allergies: Coded Allergies: No Known Allergies (Verified , NONE, 10/30/05) Objective Vital Signs Last 24 Hour Vital Signs Date Time Temp Pulse Resp B/P Pulse Ox O2 Delivery O2 Flow Rate FiO2 02/04/17 12:00 97 02/04/17 12:00 97.4 88 17 166/98 95 02/04/17 09:14 72 138/85 02/04/17 08:00 93 02/04/17 08:00 97.0 70 17 145/70 93 Room Air 02/04/17 07:25 72 16 Room Air 02/04/17 04:00 84 02/04/17 00:00 98.0 108 20 138/85 98 Room Air 02/04/17 00:00 97 02/03/17 20:00 109 02/03/17 20:00 98.1 107 20 145/93 98 Room Air 02/03/17 19:00 79 16 Room Air Height (Feet): 5 Height (Inches): 6.00 Weight (Pounds): 116 General Appearance: WD/WN, no acute distress HEENT: normocephalic, atraumatic, anicteric, mucous membranes moist Respiratory/Chest: chest wall non-tender, lungs clear, normal breath sounds, no respiratory distress Cardiovascular: normal peripheral pulses, normal rate, regular rhythm Abdomen: normal bowel sounds, soft, non tender, no organomegaly, non distended Extremities: no cyanosis, no clubbing Skin: no rash, no lesions Laboratory Tests Test 02/04/17 05:30 White Blood Count 15.3 K/UL (4.8-10.8) H Red Blood Count 3.97 M/UL (4.20-5.40) L Hemoglobin 11.8 G/DL (12.0-16.0) L Hematocrit 36.4 % (37.0-47.0) L Mean Corpuscular Volume 92 FL (80-99) Mean Corpuscular Hemoglobin 29.8 PG (27.0-31.0) Mean Corpuscular Hemoglobin Concent 32.5 G/DL (32.0-36.0) Red Cell Distribution Width 13.8 % (11.6-14.8) Platelet Count 281 K/UL (150-450) Mean Platelet Volume 8.3 FL (6.5-10.1) Neutrophils (%) (Auto) 72.9 % (45.0-75.0) Lymphocytes (%) (Auto) 21.2 % (20.0-45.0) Monocytes (%) (Auto) 4.7 % (1.0-10.0) Eosinophils (%) (Auto) 0.5 % (0.0-3.0) Basophils (%) (Auto) 0.6 % (0.0-2.0) Sodium Level 145 mEQ/L (135-145) Potassium Level 3.7 mEQ/L (3.4-4.9) Chloride Level 97 mEQ/L (98-107) L Carbon Dioxide Level 36 mEQ/L (20-30) H Anion Gap 12 (5-15) Blood Urea Nitrogen 5 mg/dL (7-23) L Creatinine 0.9 mg/dL (0.5-0.9) Estimat Glomerular Filtration Rate > 60 mL/min (>60) Glucose Level 114 mg/dL (74-106) H Calcium Level 9.2 mg/dL (8.6-10.2) Troponin I < 0.30 ng/mL (<=0.30) Amylase Level 150 U/L (10-110) H Lipase 5 U/L (< 60) Current Medications Medications (Trade) Dose Ordered Sig/Mateo Route PRN Reason Start Time Stop Time Status Last Admin Dose Admin Acetaminophen (Tylenol) 650 mg Q4H PRN ORAL fever 02/03/17 01:00 03/05/17 00:59 Al Hydroxide/Mg Hydroxide (Mylanta II) 30 ml Q6H PRN ORAL dyspepsia 02/03/17 01:00 03/05/17 00:59 Albuterol/ Ipratropium (DuoNeb 0.5-3(2.5)mg/3ml) 3 ml Q4H PRN HHN Shortness of Breath 02/03/17 01:00 02/08/17 00:59 Amlodipine Besylate (Norvasc) 5 mg DAILY ORAL 02/03/17 09:00 03/05/17 08:59 02/04/17 09:14 Clonidine HCl (Catapres) 0.1 mg Q4H PRN ORAL sbp more than 160 02/03/17 01:00 03/05/17 00:59 Dextrose (Dextrose 50%) STAT PRN IV Hypoglycemia 02/02/17 21:48 03/04/17 21:47 Dextrose/Sodium Chloride (D5ns) 1,000 ml @ 50 mls/hr Q20H IV 02/02/17 22:00 03/04/17 21:59 02/03/17 17:56 Heparin Sodium (Porcine) (Heparin 5000 units/ml) 5,000 units EVERY 12 HOURS SUBQ 02/03/17 09:00 03/05/17 08:59 02/04/17 09:19 Insulin Aspart (NovoLOG) AC+HS SUBQ 02/03/17 06:30 03/05/17 06:29 02/03/17 20:36 Insulin Aspart (NovoLOG) 4 units NOVOTIAC SUBQ 02/03/17 06:30 03/05/17 06:29 02/03/17 16:31 Insulin Detemir (Levemir) 15 units QHS SUBQ 02/04/17 21:00 03/06/17 20:59 Ketorolac Tromethamine (Toradol 30mg) 30 mg Q6H PRN IV moderate pain 4-6 02/02/17 21:49 02/07/17 21:48 Morphine Sulfate (Morphine Sulfate) 2 mg Q4H PRN IVP pain 4-10 02/02/17 21:48 02/09/17 21:47 02/04/17 09:14 Nitroglycerin (Ntg) 0.4 mg Q5M X 3 DOSES PRN SL Prn Chest Pain 02/02/17 21:45 03/04/17 21:44 02/03/17 15:55 Ondansetron HCl (Zofran ODT) 4 mg Q6H PRN ORAL Nausea & Vomiting 02/03/17 03:00 03/05/17 02:59 Ondansetron HCl (Zofran) 4 mg Q6H PRN IVP Nausea & Vomiting 02/03/17 03:15 03/05/17 03:14 02/04/17 00:02 Polyethylene Glycol (Miralax) 17 gm HSPRN PRN ORAL Constipation 02/03/17 21:00 03/05/17 20:59 Temazepam (Restoril) 15 mg HSPRN PRN ORAL Insomnia 02/02/17 21:48 02/09/17 21:47 02/03/17 00:14 Choco Lozada M.D. Feb 04, 2017 16:17
[2017-02-04] MEDS ORDERED: Nitroglycerin Subl 0.4mg tab (Bottle Of 25) SL PRN (19:45)
[2017-02-04 20:00] VITALS: BP 124/89
[2017-02-04] MEDS: D5NS 1,000 ML IV SCH (20:57)
[2017-02-04] MEDS ORDERED: DuoNeb 0.5-3(2.5)mg/3ml neb HHN PRN (21:00)
[2017-02-04] MEDS ORDERED: Ketorolac 30mg Inj IV PRN (21:00)
[2017-02-04] MEDS ORDERED: Miralax 17gm pkt ORAL PRN (21:00)
[2017-02-04] MEDS ORDERED: Levemir Flexpen SUBQ SCH (21:00)
[2017-02-04] MEDS: Levemir Flexpen SUBQ SCH (21:16)
--- NOTE | 2017-02-04 22:45 | Pulmonology Progress Note ---
Assessment/Plan Problems: (1) Chest pain at rest (2) Hyperglycemia (3) Abnormal white blood cell (WBC) count (4) Intractable nausea and vomiting (5) Diabetic hyperosmolar non-ketotic state Assessment/Plan doing better cardiac evaluation in process BS controlled better med/surg when OK with [place] ? tachycardia Subjective Allergies: Coded Allergies: No Known Allergies (Verified , NONE, 10/30/05) Objective Last 24 Hour Vital Signs Date Time Temp Pulse Resp B/P Pulse Ox O2 Delivery O2 Flow Rate FiO2 02/04/17 20:00 97.9 91 18 124/89 95 Room Air 02/04/17 12:00 97 02/04/17 12:00 97.4 88 17 166/98 95 02/04/17 09:14 72 138/85 02/04/17 08:00 93 02/04/17 08:00 97.0 70 17 145/70 93 Room Air 02/04/17 07:25 72 16 Room Air 02/04/17 04:00 84 02/04/17 00:00 98.0 108 20 138/85 98 Room Air 02/04/17 00:00 97 Intake and Output 02/03/17 02/04/17 19:00 07:00 Intake Total 565 ml 450 ml Output Total 250 ml Balance 565 ml 200 ml Intake Oral 50 ml IV Total 565 ml 400 ml Emesis 250 ml # Voids 1 3 Objective General Appearance: WD/WN HEENT: normocephalic, atraumatic Respiratory/Chest: chest wall non-tender, lungs clear Cardiovascular: normal peripheral pulses, normal rate Abdomen: normal bowel sounds, soft, non tender Extremities: no cyanosis, no clubbing Skin: no rash Laboratory Tests 02/04/17 05:30: White Blood Count 15.3H, Red Blood Count 3.97L, Hemoglobin 11.8L, Hematocrit 36.4L, Mean Corpuscular Volume 92, Mean Corpuscular Hemoglobin 29.8, Mean Corpuscular Hemoglobin Concent 32.5, Red Cell Distribution Width 13.8, Platelet Count 281, Mean Platelet Volume 8.3, Neutrophils (%) (Auto) 72.9, Lymphocytes (% ) (Auto) 21.2, Monocytes (%) (Auto) 4.7, Eosinophils (%) (Auto) 0.5, Basophils ( %) (Auto) 0.6, Sodium Level 145, Potassium Level 3.7, Chloride Level 97L, Carbon Dioxide Level 36H, Anion Gap 12, Blood Urea Nitrogen 5L, Creatinine 0.9, Estimat Glomerular Filtration Rate > 60, Glucose Level 114H, Calcium Level 9.2, Troponin I < 0.30, Amylase Level 150H, Lipase 5 Current Medications Medications (Trade) Dose Ordered Sig/Mateo Route PRN Reason Start Time Stop Time Status Last Admin Dose Admin Acetaminophen (Tylenol) 650 mg Q4H PRN ORAL fever 02/04/17 21:00 03/06/17 20:59 Al Hydroxide/Mg Hydroxide (Mylanta II) 30 ml Q6H PRN ORAL dyspepsia 02/04/17 21:00 03/06/17 20:59 Albuterol/ Ipratropium (DuoNeb 0.5-3(2.5)mg/3ml) 3 ml Q4H PRN HHN Shortness of Breath 02/04/17 21:00 02/09/17 20:59 Amlodipine Besylate (Norvasc) 5 mg DAILY ORAL 02/05/17 09:00 03/07/17 08:59 Clonidine HCl (Catapres) 0.1 mg Q4H PRN ORAL sbp more than 160 02/04/17 21:00 03/06/17 20:59 Dextrose (Dextrose 50%) STAT PRN IV Hypoglycemia 02/04/17 21:00 03/06/17 20:59 Dextrose/Sodium Chloride (D5ns) 1,000 ml @ 50 mls/hr Q20H IV 02/04/17 21:00 03/06/17 20:59 02/04/17 20:57 Heparin Sodium (Porcine) (Heparin 5000 units/ml) 5,000 units EVERY 12 HOURS SUBQ 02/04/17 21:00 03/06/17 20:59 02/04/17 21:00 Insulin Aspart (NovoLOG) AC+HS SUBQ 02/04/17 22:00 03/06/17 21:59 02/04/17 21:53 Insulin Aspart (NovoLOG) 4 units NOVOTIAC SUBQ 02/05/17 06:30 03/07/17 06:29 02/04/17 21:17 Insulin Detemir (Levemir) 15 units QHS SUBQ 02/04/17 22:00 03/06/17 21:59 02/04/17 21:16 Ketorolac Tromethamine (Toradol 30mg) 30 mg Q6H PRN IV moderate pain 4-6 02/04/17 21:00 02/09/17 20:59 Morphine Sulfate (Morphine Sulfate) 2 mg Q4H PRN IVP pain 4-10 02/04/17 21:00 02/11/17 20:59 02/04/17 21:05 Nitroglycerin (Ntg) 0.4 mg Q5M X 3 DOSES PRN SL Prn Chest Pain 02/04/17 19:45 03/06/17 19:44 Ondansetron HCl (Zofran ODT) 4 mg Q6H PRN ORAL Nausea & Vomiting 02/04/17 21:00 03/06/17 20:59 Ondansetron HCl (Zofran) 4 mg Q6H PRN IVP Nausea & Vomiting 02/04/17 21:00 03/06/17 20:59 Polyethylene Glycol (Miralax) 17 gm HSPRN PRN ORAL Constipation 02/04/17 21:00 03/06/17 20:59 Temazepam (Restoril) 15 mg HSPRN PRN ORAL Insomnia 02/04/17 21:00 02/11/17 20:59 02/04/17 20:58 MILA LAINEZ Feb 04, 2017 22:45
[2017-02-05] VITALS: BP 119/86
[2017-02-05] MEDS: NovoLOG Insulin Flexpen SUBQ SCH ×6 (06:26→20:52)
--- NOTE | 2017-02-05 06:57 | General Progress Note ---
Assessment/Plan Problem List: (1) DKA (diabetic ketoacidoses) ICD Codes: E13.10 - Other specified diabetes mellitus with ketoacidosis without coma SNOMED: 40478339, 332072708 (2) Hyperglycemia ICD Codes: R73.9 - Hyperglycemia, unspecified SNOMED: 55034573 (3) Diabetes ICD Codes: E11.9 - Type 2 diabetes mellitus without complications SNOMED: 22312108 (4) Abnormal white blood cell (WBC) count ICD Codes: D72.9 - Disorder of white blood cells, unspecified SNOMED: 864411092 (5) ARF (acute renal failure) ICD Codes: N17.9 - Acute kidney failure, unspecified SNOMED: 70760961 Assessment/Plan continue Levemir 15 units qhs continue Novolog 4 units ac tid + SSI Subjective Allergies: Coded Allergies: No Known Allergies (Verified , NONE, 10/30/05) All Systems: reviewed and negative except above Subjective events noted Objective Last 24 Hour Vital Signs Date Time Temp Pulse Resp B/P Pulse Ox O2 Delivery O2 Flow Rate FiO2 02/05/17 00:00 97.7 85 20 119/86 97 Room Air 02/04/17 23:42 89 16 Room Air 02/04/17 23:31 94 16 Room Air 02/04/17 20:00 97.9 91 18 124/89 95 Room Air 02/04/17 12:00 97 02/04/17 12:00 97.4 88 17 166/98 95 02/04/17 09:14 72 138/85 02/04/17 08:00 93 02/04/17 08:00 97.0 70 17 145/70 93 Room Air 02/04/17 07:25 72 16 Room Air Intake and Output 02/04/17 02/05/17 19:00 07:00 Intake Total 480 ml 590 ml Balance 480 ml 590 ml Intake Oral 360 ml 240 ml IV Total 120 ml 350 ml # Voids 2 4 Height (Feet): 5 Height (Inches): 6.00 Weight (Pounds): 116 General Appearance: no apparent distress Neck: normal alignment Cardiovascular: regular rhythm Respiratory/Chest: normal breath sounds Abdomen: normal bowel sounds Objective Current Medications Medications (Trade) Dose Ordered Sig/Mateo Route PRN Reason Start Time Stop Time Status Last Admin Dose Admin Acetaminophen (Tylenol) 650 mg Q4H PRN ORAL fever 02/04/17 21:00 03/06/17 20:59 Al Hydroxide/Mg Hydroxide (Mylanta II) 30 ml Q6H PRN ORAL dyspepsia 02/04/17 21:00 03/06/17 20:59 Albuterol/ Ipratropium (DuoNeb 0.5-3(2.5)mg/3ml) 3 ml Q4H PRN HHN Shortness of Breath 02/04/17 21:00 02/09/17 20:59 Amlodipine Besylate (Norvasc) 5 mg DAILY ORAL 02/05/17 09:00 03/07/17 08:59 Clonidine HCl (Catapres) 0.1 mg Q4H PRN ORAL sbp more than 160 02/04/17 21:00 03/06/17 20:59 Dextrose (Dextrose 50%) STAT PRN IV Hypoglycemia 02/04/17 21:00 03/06/17 20:59 02/05/17 05:23 Dextrose/Sodium Chloride (D5ns) 1,000 ml @ 50 mls/hr Q20H IV 02/04/17 21:00 03/06/17 20:59 02/04/17 20:57 Heparin Sodium (Porcine) (Heparin 5000 units/ml) 5,000 units EVERY 12 HOURS SUBQ 02/04/17 21:00 03/06/17 20:59 02/04/17 21:00 Insulin Aspart (NovoLOG) AC+HS SUBQ 02/04/17 22:00 03/06/17 21:59 02/04/17 21:53 Insulin Aspart (NovoLOG) 4 units NOVOTIAC SUBQ 02/05/17 06:30 03/07/17 06:29 02/04/17 21:17 Insulin Detemir (Levemir) 15 units QHS SUBQ 02/04/17 22:00 03/06/17 21:59 02/04/17 21:16 Ketorolac Tromethamine (Toradol 30mg) 30 mg Q6H PRN IV moderate pain 4-6 02/04/17 21:00 02/09/17 20:59 Morphine Sulfate (Morphine Sulfate) 2 mg Q4H PRN IVP pain 4-10 02/04/17 21:00 02/11/17 20:59 02/04/17 21:05 Nitroglycerin (Ntg) 0.4 mg Q5M X 3 DOSES PRN SL Prn Chest Pain 02/04/17 19:45 03/06/17 19:44 Ondansetron HCl (Zofran ODT) 4 mg Q6H PRN ORAL Nausea & Vomiting 02/04/17 21:00 03/06/17 20:59 Ondansetron HCl (Zofran) 4 mg Q6H PRN IVP Nausea & Vomiting 02/04/17 21:00 03/06/17 20:59 Polyethylene Glycol (Miralax) 17 gm HSPRN PRN ORAL Constipation 02/04/17 21:00 03/06/17 20:59 Temazepam (Restoril) 15 mg HSPRN PRN ORAL Insomnia 02/04/17 21:00 02/11/17 20:59 02/04/17 20:58 Item Value Date Time Bedside Blood Glucose 77 mg/dl 02/05/17 0629 Bedside Blood Glucose 320 mg/dl H 02/04/17 2153 Bedside Blood Glucose 273 mg/dl H 02/04/17 1700 Bedside Blood Glucose 112 mg/dl 02/04/17 0630 FRANCES BRADLEY 15, 2017 06:57
[2017-02-05 07:31] LABS: BASOPHILS % (AUTO) 0.7 % (0.0-2.0); LYMPHOCYTES % (AUTO) 41.5 % (20.0-45.0); MEAN CORPUSCULAR HEMOGLOBIN 29.4 PG (27.0-31.0); MEAN CORPUSCULAR HGB CONC 31.8 G/DL (32.0-36.0); MEAN CORPUSCULAR VOLUME 92 FL (80-99); MEAN PLATELET VOLUME 7.4 FL (6.5-10.1); MONOCYTES % (AUTO) 4.7 % (1.0-10.0); NEUTROPHILS % (AUTO) 51.1 % (45.0-75.0); PLATELET COUNT 248 K/UL (150-450); RED BLOOD COUNT 3.46 M/UL (4.20-5.40); RED CELL DISTRIBUTION WIDTH 14.4 % (11.6-14.8); WHITE BLOOD COUNT 12.5 K/UL (4.8-10.8)
[2017-02-05 07:43] LABS: ANION GAP 12 (5-15); CALCIUM 8.7 mg/dL (8.6-10.2); CARBON DIOXIDE 34 mEQ/L (20-30); CHLORIDE 98 mEQ/L (98-107); CREATININE 0.9 mg/dL (0.5-0.9); GLOMERULAR FILTRATION RATE > 60 mL/min (>60); HEMOLYSIS 0; POTASSIUM 3.1 mEQ/L (3.4-4.9); SODIUM 144 mEQ/L (135-145)
[2017-02-05 08:00] VITALS: BP 121/85
[2017-02-05] MEDS: Heparin 5000 units/ml inj SUBQ SCH ×2 (09:00→20:53)
--- NOTE | 2017-02-05 11:40 | GI Initial Consult Note ---
History of Present Illness General Date patient seen: Feb 05, 2017 Time patient seen: 11:00 Reason for Hospitalization: Abdominal Pain Referring physician: dr Arana Reason for Consultation: N/V Present Illness HPI The patient presents with abdominal pain and vomiting for several days. She is diabetic. She did not take her insulin today. Paramedics checked her blood sugar was critically high. She has been vomiting and also has abdominal pain. This is epigastric 10/10, constant, burning pressure, not radiating. Not vomit blood. Some loose stool, but decreased PO intake. No dysuria. No fevers, chills, cough, URI, chest pain. Some dyspnea with vomiting. Weak - generalized. No headache. Chronic rashes. She feels thirsty. The patient states she has a history of pancreatitis in the past and GERD. Prior admit here for DKA. GI CONSULT: Initial HPI as noted above. GI consulted for N/V. Pt seen on floor, awake A&Ox4 NAD with no active s/sx N/V pt is ambulating on the [place]. Denies any N/V at this time. Pt presents today with leukocytosis and anemia and resolved N/V. States she wants to be discharged home. Labs reviewed. Home Meds Active Scripts Insulin Aspart (Novolog Flexpen) 100 Unit/1 Ml Insuln.pen, 5 UNIT SQ AC, #1 SYR Prov:Cailin Carpenter NP ([facility]te[facility]) 01/27/17 Insulin Detemir (LEVEMIR) 100 Unit/1 Ml Vial, 15 UNIT SUBQ BEDTIME, #1 VIAL Prov:Cailin Carpenter NP (Vanchtein) 01/27/17 Amlodipine Besylate (Norvasc) 5 Mg Tablet, 5 MG ORAL DAILY for 30 Days, #30 TAB Prov:KISHORE RICKETTS 01/21/17 Med list reviewed/reconciled: Yes Allergies: Coded Allergies: No Known Allergies (Verified , NONE, 10/30/05) Patient History History Provided By: Patient, Medical Record PMH Narrative Past Medical History: see triage record Social History: Reports: smoking Social History Narrative with mother Last Menstrual Period: 4 weeks ago Now: No Reviewed Nursing Documentation: PMH: Agreed, PSxH: Agreed Nursing Documentation-PMH Hx Cardiac Problems: Yes Hx Hypertension: Yes Hx Diabetes: Yes - DM type 1 Hx Cancer: No Hx Gastrointestinal Problems: Yes - gastroperesis, Pancreatitis Hx Neurological Problems: No Hx Seizures: Yes Hx Vertigo: Yes Hx Dizziness: Yes Hx Headaches: Yes Hx Weakness: Yes Hx Fatigue: Yes Hx Neurologic Surgery: No Review of Systems All Other Systems: negative except mentioned in HPI Physical Exam Vital Signs Date Time Temp Pulse Resp B/P Pulse Ox O2 Delivery O2 Flow Rate FiO2 02/01/17 08:00 97.7 79 19 156/100 93 Room Air 02/03/17 08:30 2.0 21 Sp02 EP Interpretation: reviewed Labs Laboratory Tests Test 02/05/17 04:10 White Blood Count 12.5 K/UL (4.8-10.8) H Red Blood Count 3.46 M/UL (4.20-5.40) L Hemoglobin 10.2 G/DL (12.0-16.0) L Hematocrit 32.0 % (37.0-47.0) L Mean Corpuscular Volume 92 FL (80-99) Mean Corpuscular Hemoglobin 29.4 PG (27.0-31.0) Mean Corpuscular Hemoglobin Concent 31.8 G/DL (32.0-36.0) L Red Cell Distribution Width 14.4 % (11.6-14.8) Platelet Count 248 K/UL (150-450) Mean Platelet Volume 7.4 FL (6.5-10.1) Neutrophils (%) (Auto) 51.1 % (45.0-75.0) Lymphocytes (%) (Auto) 41.5 % (20.0-45.0) Monocytes (%) (Auto) 4.7 % (1.0-10.0) Eosinophils (%) (Auto) 2.0 % (0.0-3.0) Basophils (%) (Auto) 0.7 % (0.0-2.0) Sodium Level 144 mEQ/L (135-145) Potassium Level 3.1 mEQ/L (3.4-4.9) L Chloride Level 98 mEQ/L (98-107) Carbon Dioxide Level 34 mEQ/L (20-30) H Anion Gap 12 (5-15) Blood Urea Nitrogen 7 mg/dL (7-23) Creatinine 0.9 mg/dL (0.5-0.9) Estimat Glomerular Filtration Rate > 60 mL/min (>60) Glucose Level 23 mg/dL (74-106) *L Calcium Level 8.7 mg/dL (8.6-10.2) General Appearance: well appearing, no apparent distress, alert, thin Head: normocephalic EENT: normal ENT inspection Neck: supple Respiratory: normal breath sounds, no respiratory distress Cardiovascular: normal rate Gastrointestinal: normal inspection, non tender, soft Rectal: deferred Genitourinary: normal inspection Musculoskeletal: normal inspection, back normal Neurologic: normal inspection, alert, oriented x3, responsive Psychiatric: normal inspection, judgement/insight normal, memory normal Skin: normal inspection, normal color, no rash Lymphatic: normal inspection, no adenopathy Current Medications Current Medications Medications (Trade) Dose Ordered Sig/Mateo Route PRN Reason Start Time Stop Time Status Last Admin Dose Admin Acetaminophen (Tylenol) 650 mg Q4H PRN ORAL fever 02/04/17 21:00 03/06/17 20:59 Al Hydroxide/Mg Hydroxide (Mylanta II) 30 ml Q6H PRN ORAL dyspepsia 02/04/17 21:00 03/06/17 20:59 Albuterol/ Ipratropium (DuoNeb 0.5-3(2.5)mg/3ml) 3 ml Q4H PRN HHN Shortness of Breath 02/04/17 21:00 02/09/17 20:59 Amlodipine Besylate (Norvasc) 5 mg DAILY ORAL 02/05/17 09:00 03/07/17 08:59 Clonidine HCl (Catapres) 0.1 mg Q4H PRN ORAL sbp more than 160 02/04/17 21:00 03/06/17 20:59 Dextrose (Dextrose 50%) STAT PRN IV Hypoglycemia 02/04/17 21:00 03/06/17 20:59 02/05/17 05:23 Dextrose/Sodium Chloride (D5ns) 1,000 ml @ 50 mls/hr Q20H IV 02/04/17 21:00 03/06/17 20:59 02/04/17 20:57 Heparin Sodium (Porcine) (Heparin 5000 units/ml) 5,000 units EVERY 12 HOURS SUBQ 02/04/17 21:00 03/06/17 20:59 02/04/17 21:00 Insulin Aspart (NovoLOG) AC+HS SUBQ 02/04/17 22:00 03/06/17 21:59 02/04/17 21:53 Insulin Aspart (NovoLOG) 4 units NOVOTIAC SUBQ 02/05/17 06:30 03/07/17 06:29 02/04/17 21:17 Insulin Detemir (Levemir) 15 units QHS SUBQ 02/04/17 22:00 03/06/17 21:59 02/04/17 21:16 Ketorolac Tromethamine (Toradol 30mg) 30 mg Q6H PRN IV moderate pain 4-6 02/04/17 21:00 02/09/17 20:59 Morphine Sulfate (Morphine Sulfate) 2 mg Q4H PRN IVP pain 4-10 02/04/17 21:00 02/11/17 20:59 02/04/17 21:05 Nitroglycerin (Ntg) 0.4 mg Q5M X 3 DOSES PRN SL Prn Chest Pain 02/04/17 19:45 03/06/17 19:44 Ondansetron HCl (Zofran ODT) 4 mg Q6H PRN ORAL Nausea & Vomiting 02/04/17 21:00 03/06/17 20:59 Ondansetron HCl (Zofran) 4 mg Q6H PRN IVP Nausea & Vomiting 02/04/17 21:00 03/06/17 20:59 Polyethylene Glycol (Miralax) 17 gm HSPRN PRN ORAL Constipation 02/04/17 21:00 03/06/17 20:59 Temazepam (Restoril) 15 mg HSPRN PRN ORAL Insomnia 02/04/17 21:00 02/11/17 20:59 02/04/17 20:58 GI: Plan Problems: (1) Gastroparesis due to DM (2) Anemia (3) Abdominal pain (4) Intractable nausea and vomiting Plan ok for DC per GI standpoint N/V resolved, consider Reglan if vomiting persists lipase negative pt ambulating adv to ADA diet, tolerating stable H&H, transfuse prn DM mgmt fu labs Discussed with Dr. Vickers. Thank you for referring this patient. Muriel Serra N.P. Feb 05, 2017 11:40
[2017-02-05 12:51] VITALS: BP 140/90
--- NOTE | 2017-02-05 14:59 | General Progress Note ---
Assessment/Plan Problem List: (1) Anemia ICD Codes: D64.9 - Anemia, unspecified SNOMED: 281754277 (2) Diabetes ICD Codes: E11.9 - Type 2 diabetes mellitus without complications SNOMED: 39782574 (3) Yeast UTI ICD Codes: B37.49 - Other urogenital candidiasis SNOMED: 732011436 (4) DKA (diabetic ketoacidoses) ICD Codes: E13.10 - Other specified diabetes mellitus with ketoacidosis without coma SNOMED: 44347271, 419210280 (5) ARF (acute renal failure) ICD Codes: N17.9 - Acute kidney failure, unspecified SNOMED: 18460870 (6) Abnormal white blood cell (WBC) count ICD Codes: D72.9 - Disorder of white blood cells, unspecified SNOMED: 060656918 (7) Hyperglycemia ICD Codes: R73.9 - Hyperglycemia, unspecified SNOMED: 56098452 (8) Intractable nausea and vomiting ICD Codes: R11.2 - Nausea with vomiting, unspecified SNOMED: 399423779, 123658884 (9) Abdominal pain ICD Codes: R10.9 - Unspecified abdominal pain SNOMED: 52937372, 29599793 Qualifiers: Qualified Codes: R10.13 - Epigastric pain (10) Diabetic hyperosmolar non-ketotic state ICD Codes: E11.00 - Type 2 diabetes mellitus with hyperosmolarity without nonketotic hyperglycemic-hyperosmolar coma ([facility]) SNOMED: 038756270, 74092805 (11) Chest pain at rest ICD Codes: R07.9 - Chest pain, unspecified SNOMED: 3425628 Status: stable, progressing Assessment/Plan ot pt diet abx per id cbc bmp am Subjective Constitutional: Reports: weakness Allergies: Coded Allergies: No Known Allergies (Verified , NONE, 10/30/05) All Systems: reviewed and negative except above Subjective sl agitated Objective Last 24 Hour Vital Signs Date Time Temp Pulse Resp B/P Pulse Ox O2 Delivery O2 Flow Rate FiO2 02/05/17 12:51 97.2 100 19 140/90 100 Room Air 02/05/17 09:00 76 121/85 02/05/17 08:00 96.7 76 18 121/85 99 Room Air 02/05/17 07:43 82 16 Room Air 02/05/17 00:00 97.7 85 20 119/86 97 Room Air 02/04/17 23:42 89 16 Room Air 02/04/17 23:31 94 16 Room Air 02/04/17 20:00 97.9 91 18 124/89 95 Room Air Intake and Output 02/04/17 02/05/17 19:00 07:00 Intake Total 480 ml 640 ml Balance 480 ml 640 ml Intake Oral 360 ml 240 ml IV Total 120 ml 400 ml # Voids 2 4 Laboratory Tests 02/05/17 04:10: White Blood Count 12.5H, Red Blood Count 3.46L, Hemoglobin 10.2L, Hematocrit 32.0L, Mean Corpuscular Volume 92, Mean Corpuscular Hemoglobin 29.4, Mean Corpuscular Hemoglobin Concent 31.8L, Red Cell Distribution Width 14.4, Platelet Count 248, Mean Platelet Volume 7.4, Neutrophils (%) (Auto) 51.1, Lymphocytes (%) (Auto) 41.5, Monocytes (%) (Auto) 4.7, Eosinophils (%) (Auto) 2.0, Basophils (%) (Auto) 0.7, Sodium Level 144, Potassium Level 3.1L, Chloride Level 98, Carbon Dioxide Level 34H, Anion Gap 12, Blood Urea Nitrogen 7, Creatinine 0.9, Estimat Glomerular Filtration Rate > 60, Glucose Level 23*L, Calcium Level 8.7 Height (Feet): 5 Height (Inches): 6.00 Weight (Pounds): 116 General Appearance: confused EENT: normal ENT inspection Neck: normal alignment Cardiovascular: normal peripheral pulses, normal rate, regular rhythm Respiratory/Chest: chest wall non-tender, lungs clear, normal breath sounds Abdomen: normal bowel sounds, non tender, soft Extremities: normal inspection Edema: no edema noted Arm (L), no edema noted Arm (R), no edema noted Leg (L), no edema noted Leg (R), no edema noted Pedal (L), no edema noted Pedal (R), no edema noted Generalized Neurologic: responsive, motor weakness Skin: normal pigmentation, warm/dry ENOCH GONZALEZ Feb 05, 2017 14:59
[2017-02-05] MEDS: Morphine Sulfate 2mg/ml Inj IVP PRN ×2 (16:00→20:09)
[2017-02-05 16:04] VITALS: BP 101/67
--- NOTE | 2017-02-05 16:12 | Infectious Diseases Prog Note ---
Assessment/Plan Problems: (1) Chest pain at rest Assessment & Plan: with negative CT angio of the lungs for PE, and negative troponin x3 , suspect musculoskeletal. cardiology is following (2) Abnormal white blood cell (WBC) count Assessment & Plan: suspect reactive due to dehydration, blood culture is negative, monitor counts off antibiotics for now. UA and CXR are not suggestive of infection (3) Diabetes Assessment & Plan: poorly controled, recommend tight glycemic control to keep blood glucose less than 130 before meals and less than 120 fasting (4) ARF (acute renal failure) Assessment & Plan: improving , due to dehydration, continue IVF for hydration , monitor renal function test . (5) DKA (diabetic ketoacidoses) Assessment & Plan: due to non compliance with insulin , continue insulin treatment and hydration, monitor blood glucose, needs diabetic teaching (6) Psychiatric disorder Assessment & Plan: recommend psych eval. Subjective Constitutional: Denies: anorexia, chills, drenching sweats, fatigue, fever, no symptoms, other HEENT: Denies: congestion, coryza, dysphagia, hearing change, no symptoms, other, visual change Respiratory: Denies: dry cough, no symptoms, other, productive cough, shortness of breath Breasts: Denies: discharge, no symptoms, other, swelling, tenderness Cardiovascular: Denies: chest pain, dyspnea on exertion, no symptoms, other, palpitations Gastrointestinal/Abdominal: Denies: bloating, blood in stool, constipation, diarrhea, nausea, no symptoms, other, vomiting Genitourinary: Denies: dysuria, frequency, hematuria, last menstrual period, no symptoms, nocturia, other, vaginal bleed/discharge Neurologic: Denies: confusion, headache, no symptoms, numbness, other, weakness Psychiatric: Denies: anxiety, depression, no symptoms, other Skin: Denies: no symptoms, other, rash, ulcer Allergies: Coded Allergies: No Known Allergies (Verified , NONE, 10/30/05) Objective Vital Signs Last 24 Hour Vital Signs Date Time Temp Pulse Resp B/P Pulse Ox O2 Delivery O2 Flow Rate FiO2 02/05/17 16:04 97.3 83 18 101/67 96 Room Air 02/05/17 12:51 97.2 100 19 140/90 100 Room Air 02/05/17 09:00 76 121/85 02/05/17 08:00 96.7 76 18 121/85 99 Room Air 02/05/17 07:43 82 16 Room Air 02/05/17 00:00 97.7 85 20 119/86 97 Room Air 02/04/17 23:42 89 16 Room Air 02/04/17 23:31 94 16 Room Air 02/04/17 20:00 97.9 91 18 124/89 95 Room Air Height (Feet): 5 Height (Inches): 6.00 Weight (Pounds): 116 General Appearance: WD/WN, no acute distress HEENT: normocephalic, atraumatic, anicteric, mucous membranes moist, PERRL Respiratory/Chest: chest wall non-tender, lungs clear, normal breath sounds, no respiratory distress, no accessory muscle use Cardiovascular: normal peripheral pulses, normal rate, regular rhythm, no gallop/murmur, no JVD Abdomen: normal bowel sounds, soft, non tender, no organomegaly, non distended , no mass Extremities: no cyanosis, no clubbing Skin: no rash, no lesions Laboratory Tests Test 02/05/17 04:10 White Blood Count 12.5 K/UL (4.8-10.8) H Red Blood Count 3.46 M/UL (4.20-5.40) L Hemoglobin 10.2 G/DL (12.0-16.0) L Hematocrit 32.0 % (37.0-47.0) L Mean Corpuscular Volume 92 FL (80-99) Mean Corpuscular Hemoglobin 29.4 PG (27.0-31.0) Mean Corpuscular Hemoglobin Concent 31.8 G/DL (32.0-36.0) L Red Cell Distribution Width 14.4 % (11.6-14.8) Platelet Count 248 K/UL (150-450) Mean Platelet Volume 7.4 FL (6.5-10.1) Neutrophils (%) (Auto) 51.1 % (45.0-75.0) Lymphocytes (%) (Auto) 41.5 % (20.0-45.0) Monocytes (%) (Auto) 4.7 % (1.0-10.0) Eosinophils (%) (Auto) 2.0 % (0.0-3.0) Basophils (%) (Auto) 0.7 % (0.0-2.0) Sodium Level 144 mEQ/L (135-145) Potassium Level 3.1 mEQ/L (3.4-4.9) L Chloride Level 98 mEQ/L (98-107) Carbon Dioxide Level 34 mEQ/L (20-30) H Anion Gap 12 (5-15) Blood Urea Nitrogen 7 mg/dL (7-23) Creatinine 0.9 mg/dL (0.5-0.9) Estimat Glomerular Filtration Rate > 60 mL/min (>60) Glucose Level 23 mg/dL (74-106) *L Calcium Level 8.7 mg/dL (8.6-10.2) Current Medications Medications (Trade) Dose Ordered Sig/Mateo Route PRN Reason Start Time Stop Time Status Last Admin Dose Admin Acetaminophen (Tylenol) 650 mg Q4H PRN ORAL fever 02/04/17 21:00 03/06/17 20:59 Al Hydroxide/Mg Hydroxide (Mylanta II) 30 ml Q6H PRN ORAL dyspepsia 02/04/17 21:00 03/06/17 20:59 Albuterol/ Ipratropium (DuoNeb 0.5-3(2.5)mg/3ml) 3 ml Q4H PRN HHN Shortness of Breath 02/04/17 21:00 02/09/17 20:59 Amlodipine Besylate (Norvasc) 5 mg DAILY ORAL 02/05/17 09:00 03/07/17 08:59 Clonidine HCl (Catapres) 0.1 mg Q4H PRN ORAL sbp more than 160 02/04/17 21:00 03/06/17 20:59 Dextrose (Dextrose 50%) STAT PRN IV Hypoglycemia 02/04/17 21:00 03/06/17 20:59 02/05/17 05:23 Dextrose/Sodium Chloride (D5ns) 1,000 ml @ 50 mls/hr Q20H IV 02/04/17 21:00 03/06/17 20:59 02/04/17 20:57 Heparin Sodium (Porcine) (Heparin 5000 units/ml) 5,000 units EVERY 12 HOURS SUBQ 02/04/17 21:00 03/06/17 20:59 02/04/17 21:00 Insulin Aspart (NovoLOG) AC+HS SUBQ 02/04/17 22:00 03/06/17 21:59 02/05/17 11:57 Insulin Aspart (NovoLOG) 4 units NOVOTIAC SUBQ 02/05/17 06:30 03/07/17 06:29 02/05/17 11:59 Insulin Detemir (Levemir) 15 units QHS SUBQ 02/04/17 22:00 03/06/17 21:59 02/04/17 21:16 Ketorolac Tromethamine (Toradol 30mg) 30 mg Q6H PRN IV moderate pain 4-6 02/04/17 21:00 02/09/17 20:59 Morphine Sulfate (Morphine Sulfate) 2 mg Q4H PRN IVP pain 4-10 02/04/17 21:00 02/11/17 20:59 02/05/17 16:00 Nitroglycerin (Ntg) 0.4 mg Q5M X 3 DOSES PRN SL Prn Chest Pain 02/04/17 19:45 03/06/17 19:44 Ondansetron HCl (Zofran ODT) 4 mg Q6H PRN ORAL Nausea & Vomiting 02/04/17 21:00 03/06/17 20:59 Ondansetron HCl (Zofran) 4 mg Q6H PRN IVP Nausea & Vomiting 02/04/17 21:00 03/06/17 20:59 Polyethylene Glycol (Miralax) 17 gm HSPRN PRN ORAL Constipation 02/04/17 21:00 03/06/17 20:59 Temazepam (Restoril) 15 mg HSPRN PRN ORAL Insomnia 02/04/17 21:00 02/11/17 20:59 02/04/17 20:58 Choco Lozada M.D. Feb 05, 2017 16:12
[2017-02-05] MEDS: D5NS 1,000 ML IV SCH (17:48)
[2017-02-05 20:00] VITALS: BP 108/69
[2017-02-05] MEDS: Levemir Flexpen SUBQ SCH (20:53)
--- NOTE | 2017-02-05 22:52 | Diagnostic Imaging Report ---
APPROVED REPORT CPT Code: 86336 Present Symptoms Comments: Chest pain BILATERAL: Imaging reveals a patent deep venous system bilaterally. There is no evidence of thrombus within the femoral, popliteal or tibial segments. The greater saphenous veins are also within normal limits. Doppler indicates normal spontaneous flow within these segments.
[2017-02-05] MEDS: Mylanta II UD 30ml ORAL PRN (22:56)
--- NOTE | 2017-02-05 23:55 | Pulmonology Progress Note ---
Assessment/Plan Problems: (1) Chest pain at rest (2) Hyperglycemia (3) Abnormal white blood cell (WBC) count (4) Intractable nausea and vomiting (5) Diabetic hyperosmolar non-ketotic state Assessment/Plan doing better cardiac evaluation in process BS controlled better med/surg when OK with [place] ? tachycardia Subjective Allergies: Coded Allergies: No Known Allergies (Verified , NONE, 10/30/05) Objective Last 24 Hour Vital Signs Date Time Temp Pulse Resp B/P Pulse Ox O2 Delivery O2 Flow Rate FiO2 02/05/17 20:00 97.9 86 19 108/69 98 Room Air 02/05/17 19:47 95 18 Room Air 02/05/17 16:04 97.3 83 18 101/67 96 Room Air 02/05/17 12:51 97.2 100 19 140/90 100 Room Air 02/05/17 09:00 76 121/85 02/05/17 08:00 96.7 76 18 121/85 99 Room Air 02/05/17 07:43 82 16 Room Air 02/05/17 00:00 97.7 85 20 119/86 97 Room Air Intake and Output 02/04/17 02/05/17 19:00 07:00 Intake Total 480 ml 640 ml Balance 480 ml 640 ml Intake Oral 360 ml 240 ml IV Total 120 ml 400 ml # Voids 2 4 Objective General Appearance: WD/WN HEENT: normocephalic, atraumatic Respiratory/Chest: chest wall non-tender, lungs clear Cardiovascular: normal peripheral pulses, normal rate Abdomen: normal bowel sounds, soft, non tender Extremities: no cyanosis, no clubbing Skin: no rash Laboratory Tests 02/05/17 04:10: White Blood Count 12.5H, Red Blood Count 3.46L, Hemoglobin 10.2L, Hematocrit 32.0L, Mean Corpuscular Volume 92, Mean Corpuscular Hemoglobin 29.4, Mean Corpuscular Hemoglobin Concent 31.8L, Red Cell Distribution Width 14.4, Platelet Count 248, Mean Platelet Volume 7.4, Neutrophils (%) (Auto) 51.1, Lymphocytes (%) (Auto) 41.5, Monocytes (%) (Auto) 4.7, Eosinophils (%) (Auto) 2.0, Basophils (%) (Auto) 0.7, Sodium Level 144, Potassium Level 3.1L, Chloride Level 98, Carbon Dioxide Level 34H, Anion Gap 12, Blood Urea Nitrogen 7, Creatinine 0.9, Estimat Glomerular Filtration Rate > 60, Glucose Level 23*L, Calcium Level 8.7 Current Medications Medications (Trade) Dose Ordered Sig/Mateo Route PRN Reason Start Time Stop Time Status Last Admin Dose Admin Acetaminophen (Tylenol) 650 mg Q4H PRN ORAL fever 02/04/17 21:00 03/06/17 20:59 Al Hydroxide/Mg Hydroxide (Mylanta II) 30 ml Q6H PRN ORAL dyspepsia 02/04/17 21:00 03/06/17 20:59 02/05/17 22:56 Albuterol/ Ipratropium (DuoNeb 0.5-3(2.5)mg/3ml) 3 ml Q4H PRN HHN Shortness of Breath 02/04/17 21:00 02/09/17 20:59 Amlodipine Besylate (Norvasc) 5 mg DAILY ORAL 02/05/17 09:00 03/07/17 08:59 Clonidine HCl (Catapres) 0.1 mg Q4H PRN ORAL sbp more than 160 02/04/17 21:00 03/06/17 20:59 Dextrose (Dextrose 50%) STAT PRN IV Hypoglycemia 02/04/17 21:00 03/06/17 20:59 02/05/17 16:37 Dextrose/Sodium Chloride (D5ns) 1,000 ml @ 50 mls/hr Q20H IV 02/04/17 21:00 03/06/17 20:59 02/05/17 17:48 Heparin Sodium (Porcine) (Heparin 5000 units/ml) 5,000 units EVERY 12 HOURS SUBQ 02/04/17 21:00 03/06/17 20:59 02/05/17 20:53 Insulin Aspart (NovoLOG) AC+HS SUBQ 02/04/17 22:00 03/06/17 21:59 02/05/17 20:52 Insulin Aspart (NovoLOG) 4 units NOVOTIAC SUBQ 02/05/17 06:30 03/07/17 06:29 02/05/17 11:59 Insulin Detemir (Levemir) 15 units QHS SUBQ 02/04/17 22:00 03/06/17 21:59 02/04/17 21:16 Ketorolac Tromethamine (Toradol 30mg) 30 mg Q6H PRN IV moderate pain 4-6 02/04/17 21:00 02/09/17 20:59 Morphine Sulfate (Morphine Sulfate) 2 mg Q4H PRN IVP pain 4-10 02/04/17 21:00 02/11/17 20:59 02/05/17 20:09 Nitroglycerin (Ntg) 0.4 mg Q5M X 3 DOSES PRN SL Prn Chest Pain 02/04/17 19:45 03/06/17 19:44 Ondansetron HCl (Zofran ODT) 4 mg Q6H PRN ORAL Nausea & Vomiting 02/04/17 21:00 03/06/17 20:59 Ondansetron HCl (Zofran) 4 mg Q6H PRN IVP Nausea & Vomiting 02/04/17 21:00 03/06/17 20:59 Polyethylene Glycol (Miralax) 17 gm HSPRN PRN ORAL Constipation 02/04/17 21:00 03/06/17 20:59 Temazepam (Restoril) 15 mg HSPRN PRN ORAL Insomnia 02/04/17 21:00 02/11/17 20:59 02/05/17 20:50 MILA LAINEZ Feb 05, 2017 23:55
[2017-02-06] VITALS: BP 121/87
[2017-02-06 03:35] VITALS: BP 109/68
[2017-02-06] MEDS: NovoLOG Insulin Flexpen SUBQ SCH ×8 (06:30→21:34)
[2017-02-06 07:21] LABS: BASOPHILS % (AUTO) 1.3 % (0.0-2.0); EOSINOPHILS % (AUTO) 2.8 % (0.0-3.0); LYMPHOCYTES % (AUTO) 48.2 % (20.0-45.0); MEAN CORPUSCULAR HEMOGLOBIN 28.5 PG (27.0-31.0); MEAN CORPUSCULAR HGB CONC 30.7 G/DL (32.0-36.0); MEAN CORPUSCULAR VOLUME 93 FL (80-99); MEAN PLATELET VOLUME 8.8 FL (6.5-10.1); MONOCYTES % (AUTO) 5.7 % (1.0-10.0); NEUTROPHILS % (AUTO) 42.1 % (45.0-75.0); PLATELET COUNT 206 K/UL (150-450); RED BLOOD COUNT 3.42 M/UL (4.20-5.40); RED CELL DISTRIBUTION WIDTH 14.2 % (11.6-14.8); WHITE BLOOD COUNT 7.1 K/UL (4.8-10.8)
[2017-02-06 07:31] LABS: ANION GAP 12 (5-15); CALCIUM 8.3 mg/dL (8.6-10.2); CARBON DIOXIDE 30 mEQ/L (20-30); CHLORIDE 91 mEQ/L (98-107); CREATININE 0.9 mg/dL (0.5-0.9); GLOMERULAR FILTRATION RATE > 60 mL/min (>60); HEMOLYSIS 1; SODIUM 133 mEQ/L (135-145)
[2017-02-06] MEDS: Morphine Sulfate 2mg/ml Inj IVP PRN (07:36)
[2017-02-06 08:06] VITALS: BP 154/97
[2017-02-06] MEDS: Heparin 5000 units/ml inj SUBQ SCH ×2 (09:00→21:35)
[2017-02-06 12:30] VITALS: BP 127/79
--- NOTE | 2017-02-06 14:02 | General Progress Note ---
Assessment/Plan Problem List: (1) Gastroparesis due to DM ICD Codes: E11.43 - Type 2 diabetes mellitus with diabetic autonomic (poly) neuropathy; K31.84 - Gastroparesis SNOMED: 19601672, 428788640 (2) Chest pain at rest ICD Codes: R07.9 - Chest pain, unspecified SNOMED: 7230094 (3) Abdominal pain ICD Codes: R10.9 - Unspecified abdominal pain SNOMED: 94116054, 99078499 Qualifiers: Qualified Codes: R10.13 - Epigastric pain (4) Hyperglycemia ICD Codes: R73.9 - Hyperglycemia, unspecified SNOMED: 48120334 (5) Anemia ICD Codes: D64.9 - Anemia, unspecified SNOMED: 983514815 Assessment/Plan tolerating diet ok to dc gi stand point reglan if needed as prn fu as out patient Subjective ROS Limited/Unobtainable: Yes Allergies: Coded Allergies: No Known Allergies (Verified , NONE, 10/30/05) Subjective no event Objective Last 24 Hour Vital Signs Date Time Temp Pulse Resp B/P Pulse Ox O2 Delivery O2 Flow Rate FiO2 02/06/17 12:30 97.0 87 19 127/79 98 Room Air 02/06/17 11:57 168/110 02/06/17 08:11 82 18 Room Air 02/06/17 08:06 97.9 93 20 154/97 98 Room Air 02/06/17 08:06 97.9 02/06/17 03:35 97.6 85 18 109/68 98 Room Air 02/06/17 00:00 97.3 87 20 121/87 99 Room Air 02/05/17 20:00 97.9 86 19 108/69 98 Room Air 02/05/17 19:47 95 18 Room Air 02/05/17 16:04 97.3 83 18 101/67 96 Room Air Intake and Output 02/05/17 02/06/17 19:00 07:00 Intake Total 710 ml 1000 ml Balance 710 ml 1000 ml Intake Oral 360 ml 700 ml IV Total 350 ml 300 ml # Voids 2 5 Laboratory Tests 02/06/17 05:55: White Blood Count 7.1, Red Blood Count 3.42L, Hemoglobin 9.7L, Hematocrit 31.7L , Mean Corpuscular Volume 93, Mean Corpuscular Hemoglobin 28.5, Mean Corpuscular Hemoglobin Concent 30.7L, Red Cell Distribution Width 14.2, Platelet Count 206, Mean Platelet Volume 8.8, Neutrophils (%) (Auto) 42.1L, Lymphocytes (%) (Auto) 48.2H, Monocytes (%) (Auto) 5.7, Eosinophils (%) (Auto) 2.8, Basophils (%) (Auto) 1.3, Sodium Level 133L, Potassium Level 4.0, Chloride Level 91L, Carbon Dioxide Level 30, Anion Gap 12, Blood Urea Nitrogen 7, Creatinine 0.9, Estimat Glomerular Filtration Rate > 60, Glucose Level 326#H, Calcium Level 8.3L Height (Feet): 5 Height (Inches): 6.00 Weight (Pounds): 116 General Appearance: alert EENT: normal ENT inspection Neck: supple Cardiovascular: normal rate Respiratory/Chest: lungs clear Abdomen: normal bowel sounds, non tender, soft Extremities: non-tender QUAN BAZAN Feb 06, 2017 14:02
[2017-02-06] MEDS: Mylanta II UD 30ml ORAL PRN ×2 (14:07→21:29)
--- NOTE | 2017-02-06 14:32 | General Progress Note ---
Assessment/Plan Problem List: (1) Anemia ICD Codes: D64.9 - Anemia, unspecified SNOMED: 291567959 (2) Diabetes ICD Codes: E11.9 - Type 2 diabetes mellitus without complications SNOMED: 72664311 (3) Yeast UTI ICD Codes: B37.49 - Other urogenital candidiasis SNOMED: 321137660 (4) DKA (diabetic ketoacidoses) ICD Codes: E13.10 - Other specified diabetes mellitus with ketoacidosis without coma SNOMED: 11018902, 120613093 (5) ARF (acute renal failure) ICD Codes: N17.9 - Acute kidney failure, unspecified SNOMED: 01952064 (6) Abnormal white blood cell (WBC) count ICD Codes: D72.9 - Disorder of white blood cells, unspecified SNOMED: 840479223 (7) Hyperglycemia ICD Codes: R73.9 - Hyperglycemia, unspecified SNOMED: 75088086 (8) Intractable nausea and vomiting ICD Codes: R11.2 - Nausea with vomiting, unspecified SNOMED: 623319794, 506987229 (9) Abdominal pain ICD Codes: R10.9 - Unspecified abdominal pain SNOMED: 45533599, 74620937 Qualifiers: Qualified Codes: R10.13 - Epigastric pain (10) Diabetic hyperosmolar non-ketotic state ICD Codes: E11.00 - Type 2 diabetes mellitus with hyperosmolarity without nonketotic hyperglycemic-hyperosmolar coma ([facility]) SNOMED: 727150808, 46151037 (11) Chest pain at rest ICD Codes: R07.9 - Chest pain, unspecified SNOMED: 3070373 Status: stable, progressing, tolerating diet Assessment/Plan ot pt diet abx per id cbc bmp am dc plan Subjective Allergies: Coded Allergies: No Known Allergies (Verified , NONE, 10/30/05) All Systems: reviewed and negative except above Subjective sl agitated Objective Last 24 Hour Vital Signs Date Time Temp Pulse Resp B/P Pulse Ox O2 Delivery O2 Flow Rate FiO2 02/06/17 12:30 97.0 87 19 127/79 98 Room Air 02/06/17 11:57 168/110 02/06/17 08:11 82 18 Room Air 02/06/17 08:06 97.9 93 20 154/97 98 Room Air 02/06/17 08:06 97.9 3/16/17 03:35 97.6 85 18 109/68 98 Room Air 02/06/17 00:00 97.3 87 20 121/87 99 Room Air 02/05/17 20:00 97.9 86 19 108/69 98 Room Air 02/05/17 19:47 95 18 Room Air 02/05/17 16:04 97.3 83 18 101/67 96 Room Air Intake and Output 02/05/17 02/06/17 19:00 07:00 Intake Total 710 ml 1000 ml Balance 710 ml 1000 ml Intake Oral 360 ml 700 ml IV Total 350 ml 300 ml # Voids 2 5 Laboratory Tests 02/06/17 05:55: White Blood Count 7.1, Red Blood Count 3.42L, Hemoglobin 9.7L, Hematocrit 31.7L , Mean Corpuscular Volume 93, Mean Corpuscular Hemoglobin 28.5, Mean Corpuscular Hemoglobin Concent 30.7L, Red Cell Distribution Width 14.2, Platelet Count 206, Mean Platelet Volume 8.8, Neutrophils (%) (Auto) 42.1L, Lymphocytes (%) (Auto) 48.2H, Monocytes (%) (Auto) 5.7, Eosinophils (%) (Auto) 2.8, Basophils (%) (Auto) 1.3, Sodium Level 133L, Potassium Level 4.0, Chloride Level 91L, Carbon Dioxide Level 30, Anion Gap 12, Blood Urea Nitrogen 7, Creatinine 0.9, Estimat Glomerular Filtration Rate > 60, Glucose Level 326#H, Calcium Level 8.3L Height (Feet): 5 Height (Inches): 6.00 Weight (Pounds): 116 General Appearance: lethargic EENT: normal ENT inspection Neck: normal alignment Cardiovascular: normal peripheral pulses, normal rate, regular rhythm Respiratory/Chest: chest wall non-tender, lungs clear, normal breath sounds Abdomen: normal bowel sounds, non tender, soft Extremities: normal inspection Edema: no edema noted Arm (L), no edema noted Arm (R), no edema noted Leg (L), no edema noted Leg (R), no edema noted Pedal (L), no edema noted Pedal (R), no edema noted Generalized Neurologic: responsive, motor weakness Skin: normal pigmentation, warm/dry ENOCH GONZALEZ Feb 06, 2017 14:32
[2017-02-06] MEDS ORDERED: D5NS 1000ml IV ONE (14:50)
[2017-02-06 16:00] VITALS: BP 124/86
[2017-02-06 20:28] VITALS: BP 126/84
[2017-02-06] MEDS: Levemir Flexpen SUBQ SCH ×2 (21:00→21:35)
--- NOTE | 2017-02-06 22:43 | Pulmonology Progress Note ---
Assessment/Plan Problems: (1) Chest pain at rest (2) Hyperglycemia (3) Abnormal white blood cell (WBC) count (4) Intractable nausea and vomiting (5) Diabetic hyperosmolar non-ketotic state Assessment/Plan doing better cardiac evaluation in process BS controlled better med/surg when OK with [place] ? tachycardia Subjective Allergies: Coded Allergies: No Known Allergies (Verified , NONE, 10/30/05) Objective Last 24 Hour Vital Signs Date Time Temp Pulse Resp B/P Pulse Ox O2 Delivery O2 Flow Rate FiO2 02/06/17 20:28 97.2 89 19 126/84 98 Room Air 02/06/17 19:45 79 16 Room Air 02/06/17 16:00 97.5 75 18 124/86 99 Room Air 02/06/17 12:30 97.0 87 19 127/79 98 Room Air 02/06/17 11:57 168/110 02/06/17 08:11 82 18 Room Air 02/06/17 08:06 97.9 93 20 154/97 98 Room Air 02/06/17 08:06 97.9 02/06/17 03:35 97.6 85 18 109/68 98 Room Air 02/06/17 00:00 97.3 87 20 121/87 99 Room Air Intake and Output 02/05/17 02/06/17 19:00 07:00 Intake Total 710 ml 1000 ml Balance 710 ml 1000 ml Intake Oral 360 ml 700 ml IV Total 350 ml 300 ml # Voids 2 5 Objective General Appearance: WD/WN HEENT: normocephalic, atraumatic Respiratory/Chest: chest wall non-tender, lungs clear Cardiovascular: normal peripheral pulses, normal rate Abdomen: normal bowel sounds, soft, non tender Extremities: no cyanosis, no clubbing Skin: no rash Laboratory Tests 02/06/17 05:55: White Blood Count 7.1, Red Blood Count 3.42L, Hemoglobin 9.7L, Hematocrit 31.7L , Mean Corpuscular Volume 93, Mean Corpuscular Hemoglobin 28.5, Mean Corpuscular Hemoglobin Concent 30.7L, Red Cell Distribution Width 14.2, Platelet Count 206, Mean Platelet Volume 8.8, Neutrophils (%) (Auto) 42.1L, Lymphocytes (%) (Auto) 48.2H, Monocytes (%) (Auto) 5.7, Eosinophils (%) (Auto) 2.8, Basophils (%) (Auto) 1.3, Sodium Level 133L, Potassium Level 4.0, Chloride Level 91L, Carbon Dioxide Level 30, Anion Gap 12, Blood Urea Nitrogen 7, Creatinine 0.9, Estimat Glomerular Filtration Rate > 60, Glucose Level 326#H, Calcium Level 8.3L Current Medications Medications (Trade) Dose Ordered Sig/Mateo Route PRN Reason Start Time Stop Time Status Last Admin Dose Admin Acetaminophen (Tylenol) 650 mg Q4H PRN ORAL fever 02/04/17 21:00 03/06/17 20:59 Al Hydroxide/Mg Hydroxide (Mylanta II) 30 ml Q6H PRN ORAL dyspepsia 02/04/17 21:00 03/06/17 20:59 02/06/17 21:29 Albuterol/ Ipratropium (DuoNeb 0.5-3(2.5)mg/3ml) 3 ml Q4H PRN HHN Shortness of Breath 02/04/17 21:00 02/09/17 20:59 Amlodipine Besylate (Norvasc) 5 mg DAILY ORAL 02/05/17 09:00 03/07/17 08:59 Clonidine HCl (Catapres) 0.1 mg Q4H PRN ORAL sbp more than 160 02/04/17 21:00 03/06/17 20:59 02/06/17 11:57 Dextrose (Dextrose 50%) STAT PRN IV Hypoglycemia 02/06/17 16:45 03/08/17 16:44 Heparin Sodium (Porcine) (Heparin 5000 units/ml) 5,000 units EVERY 12 HOURS SUBQ 02/04/17 21:00 03/06/17 20:59 02/06/17 21:35 Insulin Aspart (NovoLOG) BEFORE MEALS AND HS SUBQ 02/06/17 21:00 03/08/17 20:59 Insulin Detemir (Levemir) 10 units QHS SUBQ 02/06/17 21:00 03/08/17 20:59 Ketorolac Tromethamine (Toradol 30mg) 30 mg Q6H PRN IV moderate pain 4-6 02/04/17 21:00 02/09/17 20:59 Morphine Sulfate (Morphine Sulfate) 2 mg Q4H PRN IVP pain 4-10 02/04/17 21:00 02/11/17 20:59 02/06/17 07:36 Nitroglycerin (Ntg) 0.4 mg Q5M X 3 DOSES PRN SL Prn Chest Pain 02/04/17 19:45 03/06/17 19:44 Ondansetron HCl (Zofran ODT) 4 mg Q6H PRN ORAL Nausea & Vomiting 02/04/17 21:00 03/06/17 20:59 Ondansetron HCl (Zofran) 4 mg Q6H PRN IVP Nausea & Vomiting 02/04/17 21:00 03/06/17 20:59 02/06/17 07:36 Polyethylene Glycol (Miralax) 17 gm HSPRN PRN ORAL Constipation 02/04/17 21:00 03/06/17 20:59 Temazepam (Restoril) 15 mg HSPRN PRN ORAL Insomnia 02/04/17 21:00 02/11/17 20:59 02/05/17 20:50 MILA LAINEZ Feb 06, 2017 22:43
[2017-02-07] MEDS: Morphine Sulfate 2mg/ml Inj IVP PRN (00:42)
[2017-02-07] MEDS: Mylanta II UD 30ml ORAL PRN (02:59)
[2017-02-07] MEDS: NovoLOG Insulin Flexpen SUBQ SCH ×3 (06:14→16:30)
--- NOTE | 2017-02-07 08:13 | Pulmonology Progress Note ---
Assessment/Plan Assessment/Plan ASSESSMENT DKA intractable n/v DM out of control hypotensions dehydration chest pain, ACS was ruled out, likely costochondritis electrolyte abnormalities chronic pancreatitis ARF- resolved esophageal wall thickening - esophagitis? neoplasm? gastroparesis 2 to DM psychiatric disorder PLAN OF CARE transfer to [facility] management with long acting Levemir and premeal short acting insulin, SS prn, . endo follows antiemetic prn [id number] not at goal BS very labile, either high or critically low- further management as per endo tolerates diet off abx, per ID, observe , leukocytosis resolved, afebrile , no evidence of infection blood cx negative CTA chest no PE, but + thickening of esophagus, neoplasm vs esophagitis recommended EGD discussed with GI, keep NPO and plan for later today as discussed with dr Vickers later cancelled for Friday due to patient hypotension and tachycardia check CEA serial troponin x 4 negative, ECG no acute ischemic changes, r/out for ACS ECHO with preserved EF 55% and RVSP of 18 cardio follows chest wall TTP, likely costochondritis Venous Duplex BLE negative CXR negative O2 HHN prn continue psych meds PT/OT pain management bowel regimen ARF resolved, liekly due to DKA and dehydration case discussed and evaluated by supervising physician Subjective Allergies: Coded Allergies: No Known Allergies (Verified , NONE, 10/30/05) All Systems: reviewed and negative except above Subjective leukocytosis resolved, afebrile no chest pain, no SOB BS still high this am, remains labile tachycardic BP low Objective Last 24 Hour Vital Signs Date Time Temp Pulse Resp B/P Pulse Ox O2 Delivery O2 Flow Rate FiO2 02/06/17 20:28 97.2 89 19 126/84 98 Room Air 02/06/17 19:45 79 16 Room Air 02/06/17 16:00 97.5 75 18 124/86 99 Room Air 02/06/17 12:30 97.0 87 19 127/79 98 Room Air 02/06/17 11:57 168/110 02/06/17 08:11 82 18 Room Air 02/06/17 08:06 97.9 93 20 154/97 98 Room Air 02/06/17 08:06 97.9 Intake and Output 02/06/17 02/07/17 19:00 07:00 Intake Total 120 ml 500 ml Balance 120 ml 500 ml Intake Oral 120 ml 500 ml # Voids 1 2 Objective General Appearance: WD/WN HEENT: normocephalic, atraumatic Respiratory/Chest: chest wall non-tender, lungs clear Cardiovascular: normal peripheral pulses, normal rate Abdomen: normal bowel sounds, soft, non tender Extremities: no cyanosis, no clubbing Skin: no rash Current Medications Medications (Trade) Dose Ordered Sig/Mateo Route PRN Reason Start Time Stop Time Status Last Admin Dose Admin Acetaminophen (Tylenol) 650 mg Q4H PRN ORAL fever 02/04/17 21:00 03/06/17 20:59 Al Hydroxide/Mg Hydroxide (Mylanta II) 30 ml Q6H PRN ORAL dyspepsia 02/04/17 21:00 03/06/17 20:59 02/07/17 02:59 Albuterol/ Ipratropium (DuoNeb 0.5-3(2.5)mg/3ml) 3 ml Q4H PRN HHN Shortness of Breath 02/04/17 21:00 02/09/17 20:59 Amlodipine Besylate (Norvasc) 5 mg DAILY ORAL 02/05/17 09:00 03/07/17 08:59 Clonidine HCl (Catapres) 0.1 mg Q4H PRN ORAL sbp more than 160 02/04/17 21:00 03/06/17 20:59 02/06/17 11:57 Dextrose (Dextrose 50%) STAT PRN IV Hypoglycemia 02/06/17 16:45 03/08/17 16:44 Heparin Sodium (Porcine) (Heparin 5000 units/ml) 5,000 units EVERY 12 HOURS SUBQ 02/04/17 21:00 03/06/17 20:59 02/06/17 21:35 Insulin Aspart (NovoLOG) BEFORE MEALS AND HS SUBQ 02/06/17 21:00 03/08/17 20:59 02/07/17 06:14 Insulin Detemir (Levemir) 10 units DAILY SUBQ 02/07/17 09:00 03/09/17 08:59 Ketorolac Tromethamine (Toradol 30mg) 30 mg Q6H PRN IV moderate pain 4-6 02/04/17 21:00 02/09/17 20:59 Morphine Sulfate (Morphine Sulfate) 2 mg Q4H PRN IVP pain 4-10 02/04/17 21:00 02/11/17 20:59 02/07/17 00:42 Nitroglycerin (Ntg) 0.4 mg Q5M X 3 DOSES PRN SL Prn Chest Pain 02/04/17 19:45 03/06/17 19:44 Ondansetron HCl (Zofran ODT) 4 mg Q6H PRN ORAL Nausea & Vomiting 02/04/17 21:00 03/06/17 20:59 02/07/17 02:59 Ondansetron HCl (Zofran) 4 mg Q6H PRN IVP Nausea & Vomiting 02/04/17 21:00 03/06/17 20:59 02/06/17 23:56 Polyethylene Glycol (Miralax) 17 gm HSPRN PRN ORAL Constipation 02/04/17 21:00 03/06/17 20:59 Temazepam (Restoril) 15 mg HSPRN PRN ORAL Insomnia 02/04/17 21:00 02/11/17 20:59 02/06/17 23:56 [facility] HospitalCail[facility] Jordan NP Feb 07, 2017 08:13
[2017-02-07 08:14] VITALS: BP 81/38
[2017-02-07 08:16] VITALS: BP 88/54
[2017-02-07 09:00] VITALS: BP 136/95
[2017-02-07] MEDS ORDERED: Levemir Flexpen SUBQ SCH (09:00)
[2017-02-07] MEDS ORDERED: Nitroglycerin Subl 0.4mg tab (Bottle Of 25) SL PRN (10:30)
--- NOTE | 2017-02-07 11:19 | General Progress Note ---
Assessment/Plan Problem List: (1) Gastroparesis due to DM ICD Codes: E11.43 - Type 2 diabetes mellitus with diabetic autonomic (poly) neuropathy; K31.84 - Gastroparesis SNOMED: 81604723, 724346900 (2) Chest pain at rest ICD Codes: R07.9 - Chest pain, unspecified SNOMED: 0505014 (3) Abdominal pain ICD Codes: R10.9 - Unspecified abdominal pain SNOMED: 38999239, 03568709 Qualifiers: Qualified Codes: R10.13 - Epigastric pain (4) Hyperglycemia ICD Codes: R73.9 - Hyperglycemia, unspecified SNOMED: 46882013 (5) Anemia ICD Codes: D64.9 - Anemia, unspecified SNOMED: 800549800 (6) esophageal wall thickening Assessment/Plan tolerating diet transfered to [facility] for tachycardia CEA EGD on Friday if stable Subjective ROS Limited/Unobtainable: Yes Allergies: Coded Allergies: No Known Allergies (Verified , NONE, 10/30/05) Subjective no event Objective Last 24 Hour Vital Signs Date Time Temp Pulse Resp B/P Pulse Ox O2 Delivery O2 Flow Rate FiO2 02/07/17 08:16 120 88/54 02/07/17 08:14 97.0 122 28 81/38 98 Room Air 02/06/17 20:28 97.2 89 19 126/84 98 Room Air 02/06/17 19:45 79 16 Room Air 02/06/17 16:00 97.5 75 18 124/86 99 Room Air 02/06/17 12:30 97.0 87 19 127/79 98 Room Air 02/06/17 11:57 168/110 Intake and Output 02/06/17 02/07/17 19:00 07:00 Intake Total 120 ml 500 ml Balance 120 ml 500 ml Intake Oral 120 ml 500 ml # Voids 1 2 Height (Feet): 5 Height (Inches): 6.00 Weight (Pounds): 116 General Appearance: alert EENT: normal ENT inspection Neck: supple Cardiovascular: tachycardia Respiratory/Chest: decreased breath sounds Abdomen: normal bowel sounds, non tender, soft Extremities: non-tender QUAN BAZAN Feb 07, 2017 11:19
[2017-02-07] MEDS ORDERED: DuoNeb 0.5-3(2.5)mg/3ml neb HHN PRN (13:00)
[2017-02-07] MEDS ORDERED: Morphine Sulfate 2mg/ml Inj IVP PRN (13:00)
--- NOTE | 2017-02-07 13:00 | General Progress Note ---
Assessment/Plan Problem List: (1) Anemia ICD Codes: D64.9 - Anemia, unspecified SNOMED: 710039544 (2) Diabetes ICD Codes: E11.9 - Type 2 diabetes mellitus without complications SNOMED: 02822253 (3) Yeast UTI ICD Codes: B37.49 - Other urogenital candidiasis SNOMED: 223334056 (4) DKA (diabetic ketoacidoses) ICD Codes: E13.10 - Other specified diabetes mellitus with ketoacidosis without coma SNOMED: 34858489, 332370485 (5) ARF (acute renal failure) ICD Codes: N17.9 - Acute kidney failure, unspecified SNOMED: 49112969 (6) Abnormal white blood cell (WBC) count ICD Codes: D72.9 - Disorder of white blood cells, unspecified SNOMED: 373434610 (7) Hyperglycemia ICD Codes: R73.9 - Hyperglycemia, unspecified SNOMED: 22026204 (8) Intractable nausea and vomiting ICD Codes: R11.2 - Nausea with vomiting, unspecified SNOMED: 430829837, 072776490 (9) Abdominal pain ICD Codes: R10.9 - Unspecified abdominal pain SNOMED: 96406399, 91797281 Qualifiers: Qualified Codes: R10.13 - Epigastric pain (10) Diabetic hyperosmolar non-ketotic state ICD Codes: E11.00 - Type 2 diabetes mellitus with hyperosmolarity without nonketotic hyperglycemic-hyperosmolar coma ([facility]) SNOMED: 158035922, 40639663 (11) Chest pain at rest ICD Codes: R07.9 - Chest pain, unspecified SNOMED: 3374333 Status: stable, progressing, tolerating diet Assessment/Plan ot pt diet abx per id cbc bmp am dc if endo and id clears Subjective Constitutional: Reports: weakness Allergies: Coded Allergies: No Known Allergies (Verified , NONE, 10/30/05) All Systems: reviewed and negative except above Subjective sl agitated Objective Last 24 Hour Vital Signs Date Time Temp Pulse Resp B/P Pulse Ox O2 Delivery O2 Flow Rate FiO2 02/07/17 09:33 82 16 Room Air 02/07/17 09:00 112 20 136/95 02/07/17 08:16 120 88/54 02/07/17 08:14 97.0 122 28 81/38 98 Room Air 02/06/17 20:28 97.2 89 19 126/84 98 Room Air 02/06/17 19:45 79 16 Room Air 02/06/17 16:00 97.5 75 18 124/86 99 Room Air Intake and Output 02/06/17 02/07/17 19:00 07:00 Intake Total 120 ml 500 ml Balance 120 ml 500 ml Intake Oral 120 ml 500 ml # Voids 1 2 Height (Feet): 5 Height (Inches): 6.00 Weight (Pounds): 116 General Appearance: lethargic EENT: normal ENT inspection Neck: normal alignment Cardiovascular: normal peripheral pulses, normal rate, regular rhythm Respiratory/Chest: chest wall non-tender, lungs clear, normal breath sounds Abdomen: normal bowel sounds, non tender, soft Extremities: normal inspection Edema: no edema noted Arm (L), no edema noted Arm (R), no edema noted Leg (L), no edema noted Leg (R), no edema noted Pedal (L), no edema noted Pedal (R), no edema noted Generalized Neurologic: responsive, motor weakness Skin: normal pigmentation, warm/dry ENOCH GONZALEZ Feb 07, 2017 13:00
[2017-02-07] MEDS ORDERED: Mylanta II UD 30ml ORAL PRN (15:00)
[2017-02-07] MEDS ORDERED: Ketorolac 30mg Inj IV PRN (15:00)
[2017-02-07] MEDS ORDERED: Miralax 17gm pkt ORAL PRN (21:00)
[2017-02-07] MEDS ORDERED: Heparin 5000 units/ml inj SUBQ SCH (21:00)
[2017-02-08] MEDS ORDERED: Levemir Flexpen SUBQ SCH (09:00)
--- NOTE | 2017-02-10 14:49 | Discharge Summary ---
Discharge Summary Hospital Course Date of Admission Jan 29, 2017 at 18:06 Date of Discharge Feb 07, 2017 at 19:15 Admitting Diagnosis hyperglycemia, hyperosmolar state HPI Amaya Wallis is a 41 year old female who was admitted on Jan 29, 2017 at 18:06 for Hyperglycemia,Hyperosmolar State Hospital Course dc summary #[id number] Discharge Medications Continued Medications: Amlodipine Besylate (Norvasc) 5 Mg Tablet 5 MG ORAL DAILY for 30 Days, #30 TAB Insulin Aspart (Novolog Flexpen) 100 Unit/1 Ml Insuln.pen 5 UNIT SQ AC, #1 SYR Insulin Detemir (Levemir) 100 Unit/1 Ml Vial 15 UNIT SUBQ BEDTIME, #1 VIAL Discharge Condition Upon Discharge: stable Discharge Disposition Patient was discharged to Home with Home Health() Discharge Diagnoses: Jayden (Kendricknando)Cailin NP Feb 10, 2017 14:49
--- NOTE | 2017-02-11 03:18 | Discharge Summary 2 SIG ---
DATE OF ADMISSION: 01/29/2017 DATE OF DISCHARGE: 02/07/2017 REASON FOR ADMISSION: 41-year-old female presented to emergency room with abdominal pain and vomiting for several days. The patient with a history of diabetes, not compliant with the treatment. Blood sugar was critically high. She was vomited and had abdominal pain. Pain described as a 10/10, constant, burning, and nonradiating, located in epigastric area. No hematemesis. Reported loose stool, decreased oral intake. No dysuria. No flank pain. No fever, chills, cough, or upper respiratory system of chest pain. The patient was admitted with generalized weakness. No headache. The patient had a prior admission for diabetic ketoacidosis. The patient was afebrile and tachycardic. Blood pressure was elevated -152/104. Glucose 884. Bicarbonate, lipase - both within normal limits. normal. Urinalysis with 3+ ketones. Anion gap was elevated. The patient was started on insulin drip and IV fluids. Analgesia provide The patient was also found to have evidence of acute renal failure with creatinine of 1.5. The patient was admitted for further management. ADMITTING DIAGNOSES: 1. Diabetic ketoacidosis. 2. Abdominal pain. 3. Acute renal failure. 4. Gastroparesis secondary to diabetes. 5. Anemia. HOSPITAL STAY: The patient was admitted to the hospital. Endocrinology consult and GI consult were requested as well as the ID consult. 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 Hemoglobin A1c - 10.7, clearly not at goal. Blood sugar was very labile, either high or critically low. The patient was able to tolerate diet. Infectious Disease followed the patient. Leukocytosis resolved. The patient off antibiotics per ID and observe the patient off antibiotics. Afebrile. No evidence of infection. Blood culture negative. CT of the chest revealed no pulmonary emboli, but was consistent with thickening of the esophagus, questionable esophagitis versus neoplasm. Recommended esophagogastroduodenoscopy. Discussed with GI. GI doctor wanted to do endoscopy 3 in the afternoon. However, endoscopy was canceled since the patient was transferred to [facility] for tachycardia and hypertension, which subsequently quickly improved. Upon admission the patient was also complained of chest pain, no SOB, non radiating. Serial troponin x4 were negative. EKG revealed no acute ischemic changes. This, the patient was ruled out for acute myocardial infarction. Echo revealed preserved ejection fraction of 55% and right ventricle systolic pressure 18. Cardiology followed the patient. Chest wall was tender to palpation, likely costochondritis. Venous duplex of bilateral lower extremities was negative. Chest x-ray was negative. Supplemental oxygen and pulmonary toilet provided as needed. TSH within normal limits. The patient was continued with psych medication. PT/OT therapists were working with the patient. Pain management provided. Bowel regimen instituted. Acute renal failure resolved, likely secondary to diabetic ketoacidosis and dehydration. The patient wanted to go home and was discharged by her primary care provider. EGD as outpatient. DISCHARGE DIAGNOSES: 1. Diabetic ketoacidosis. 2. Diabetes mellitus, out of control. 3. Gastroparesis secondary to diabetes mellitus. 4. Hypertension. 5. Dehydration. 6. Acute renal failure secondary to dehydration, -resolved. 7. Chest pain, acute coronary syndrome was ruled out. 8. Likely costochondritis. 9. Electrolyte abnormality,- resolved. 10. Chronic pancreatitis. 11. Esophageal wall thickening. 12. Psychiatric disorder. DISCHARGE MEDICATIONS: See medication reconciliation list. DISCHARGE INSTRUCTIONS: The patient discharged home. Reinforce compliance with the medication regimen as prescribed. Follow up with primary medical doctor next week. EGD to be scheduled as outpatient. Brandon Arana D.O. Caiiln Carpenter ([facility]) N.P. DR: FRANCISCO J JOB#: [id number] CC: ALICIA
--- NOTE | 2017-03-06 17:18 | History and Physical Report ---
DATE OF ADMISSION: 01/29/2017 HISTORY OF PRESENT ILLNESS: The patient was admitted because of abdominal pain. The patient basically also has a history of diabetes and history of hypertension, , seizure, anemia disorder. The patient is a poor historian, cannot rely upon history and is admitted for abdominal pain and is admitted for that reason to rule out pancreatitis. PAST MEDICAL HISTORY: Diabetes, hypertension, seizure, and anemia. PAST SURGICAL HISTORY: None. MEDICATIONS: Refer to the medications in the chart. ALLERGIES: None. FAMILY/SOCIAL HISTORY: The patient smokes. Denies history of alcohol. The patient also has a history of cocaine abuse. The patient again was seen by spud sorter. REVIEW OF SYSTEMS: HEENT: Denies headache. Respiratory: Denies shortness of breath. Denies cough. Cardiovascular: Denies chest pain. No orthopnea. Gastrointestinal: Worse abdominal pain. Extremities: Denies pain in the lower extremities. Central Nervous System: Denies change in vision or speech pattern. PHYSICAL EXAMINATION: VITAL SIGNS: Stable. HEENT: PERRLA. NECK: Supple. No lymphadenopathy. CHEST: Clear to auscultation. GASTROINTESTINAL: Soft. . No organomegaly. tenderness and rebound. EXTREMITIES: No edema. Moves all four extremities. Sensation intact to light touch. ASSESSMENT AND PLAN: Abdominal pain, rule out pancreatitis. I have asked spud sorter to see the patient. The patient also does have a history of drug abuse spud sorter for pancreatitis. Rickie Vera M.D. DR: ARMIDA JOB#: [id number] CC:
== END 2017-02-07 19:15 | disposition home or self-care (01) | DRG 420 ==
LOC: EDBD 15:16 → EMR 15:55 → 2E 18:06 → EDBEDREQ 19:20 → 4E 01-30 21:53 → ICU 01-31 16:27 → 3E 02-01 12:18 → 2E 02-01 13:19 → 4W 02-04 20:21 → 2W 02-07 09:03
PROC: 02HV33Z Insertion of Infusion Device into Superior Vena Cava, Percutaneous Approach (ICD-10-PCS; principal; 2017-01-30)
DX: E13.10 Other specified diabetes mellitus with ketoacidosis without coma (principal); N17.9 Acute kidney failure, unspecified; E87.8 Other disorders of electrolyte and fluid balance, not elsewhere classified; K86.1 Other chronic pancreatitis; B37.49 Other urogenital candidiasis; R56.9 Unspecified convulsions; K31.84 Gastroparesis; D64.9 Anemia, unspecified; E86.0 Dehydration; Z91.19 Patient's noncompliance with other medical treatment and regimen; M94.0 Chondrocostal junction syndrome [Tietze]; F99 Mental disorder, not otherwise specified; Z79.4 Long term (current) use of insulin; R00.0 Tachycardia, unspecified; K21.9 Gastro-esophageal reflux disease without esophagitis; I25.10 Atherosclerotic heart disease of native coronary artery without angina pectoris; E11.43 Type 2 diabetes mellitus with diabetic autonomic (poly)neuropathy
CPT/HCPCS: 36415; 36569; 71010; 71275; 74000; 76937; 80048; 80053; 80061; 80300; 81003; 81025; 82009; 82150; 82553; 82962; 83036; 83690; 83735; 83880; 84100; 84443; 84484; 85007; 85025; 87040; 90732; 93005; 93306; 93970; 94664; 97803; J1815; J2405; J8499; S5561

== ENCOUNTER 2017-02-08 04:46 | Inpatient (IN) | payer MEDICAID ==
[~2017-02-08] VITALS: Ht 165.1 cm; Wt 54.4 kg
[~2017-02-08 04:46] MED LIST changes: -Morphine Sulfate 4mg/ml Inj IVP ONE
[2017-02-08] MEDS ORDERED: Mylanta II UD 30ml ORAL ONE (06:00)
[2017-02-08] MEDS ORDERED: Famotidine 20 MG/ 2ML VIAL IVP ONE (06:00)
[2017-02-08 06:02] LABS: BASOPHILS % (AUTO) 0.5 % (0.0-2.0); EOSINOPHILS % (AUTO) 0.7 % (0.0-3.0); LYMPHOCYTES % (AUTO) 13.3 % (20.0-45.0); MEAN CORPUSCULAR HEMOGLOBIN 30.1 PG (27.0-31.0); MEAN CORPUSCULAR HGB CONC 32.3 G/DL (32.0-36.0); MEAN CORPUSCULAR VOLUME 93 FL (80-99); MEAN PLATELET VOLUME 9.2 FL (6.5-10.1); MONOCYTES % (AUTO) 6.6 % (1.0-10.0); PLATELET COUNT 273 K/UL (150-450); RED BLOOD COUNT 3.68 M/UL (4.20-5.40); RED CELL DISTRIBUTION WIDTH 14.3 % (11.6-14.8); WHITE BLOOD COUNT 15.8 K/UL (4.8-10.8)
[2017-02-08 06:05] LABS: APPEARANCE,URINE CLEAR; KETONES,URINE 2+ (NEGATIVE); LEUKOCYTE ESTERASE ,URINE 1+ (NEGATIVE); NITRITE,URINE NEGATIVE (NEGATIVE); PH,URINE 8 (4.5-8.0); PROTEIN,URINE NEGATIVE (NEGATIVE); UROBILINOGEN,URINE NORMAL MG/DL (0.0-1.0)
[2017-02-08 06:10] LABS: BACTERIA,URINE FEW /HPF; RBC,URINE 0-2 /HPF (0 - 2); SQUAMOUS EPITHELIAL CELL,UR FEW /LPF (NONE/OCC)
[2017-02-08 06:15] LABS: ALANINE AMINOTRANSFERASE 19 U/L (3-33); ALBUMIN/GLOBULIN RATIO 1.1 (1.0-2.7); ANION GAP 13 (5-15); ASPARTATE AMINO TRANSFERASE 15 U/L (5-40); CALCIUM 9.1 mg/dL (8.6-10.2); CARBON DIOXIDE 37 mEQ/L (20-30); CHLORIDE 84 mEQ/L (98-107); CREATININE 1.3 mg/dL (0.5-0.9); GLOMERULAR FILTRATION RATE 55.3 mL/min (>60); HEMOLYSIS 2; LIPASE 8 U/L (< 60); MAGNESIUM 1.8 mg/dL (1.7-2.5); POTASSIUM 3.7 mEQ/L (3.4-4.9); SODIUM 134 mEQ/L (135-145); TOTAL PROTEIN 6.6 g/dL (6.6-8.7)
[2017-02-08 06:25] VITALS: BP 122/78
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
[2017-02-08] MEDS ORDERED: DuoNeb 0.5-3(2.5)mg/3ml neb HHN PRN (07:45)
[2017-02-08] MEDS ORDERED: Miralax 17gm pkt ORAL PRN (07:45)
[2017-02-08] MEDS ORDERED: Ketorolac 30mg Inj IV PRN (07:45)
[2017-02-08] MEDS ORDERED: Nitroglycerin Subl 0.4mg tab (Bottle Of 25) SL PRN (07:45)
[2017-02-08] MEDS ORDERED: Mylanta II UD 30ml ORAL PRN (07:45)
[2017-02-08 07:47] VITALS: BP 110/82
[2017-02-08 09:30] VITALS: BP 113/92
--- NOTE | 2017-02-08 10:16 | General Progress Note ---
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; K31.84 - Gastroparesis SNOMED: 45209329, 802234677 (4) Hyperglycemia ICD Codes: R73.9 - Hyperglycemia, unspecified SNOMED: 31906428 (5) Diabetes ICD Codes: E11.9 - Type 2 diabetes mellitus without complications SNOMED: 99380238 (6) Anemia ICD Codes: D64.9 - Anemia, unspecified SNOMED: 410852988 Assessment/Plan discharged and readmitted again plan EGd on Friday fu labs Subjective ROS Limited/Unobtainable: Yes Allergies: Coded Allergies: No Known Allergies (Verified , NONE, 10/30/05) Subjective c/o vomiting Objective Last 24 Hour Vital Signs Date Time Temp Pulse Resp B/P Pulse Ox O2 Delivery O2 Flow Rate FiO2 02/08/17 09:30 98.1 96 18 113/92 98 Room Air 02/08/17 09:00 98.8 89 12 110/82 98 Room Air 02/08/17 07:47 98.8 89 12 110/82 98 Room Air 02/08/17 06:25 98.8 91 15 122/78 97 Room Air 02/08/17 05:00 106 18 Room Air 02/08/17 04:43 98.8 106 18 133/74 100 Room Air Intake and Output 02/07/17 02/08/17 19:00 07:00 # Voids 1 Laboratory Tests 02/08/17 05:50: White Blood Count 15.8H, Red Blood Count 3.68L, Hemoglobin 11.1L, Hematocrit 34.3L, Mean Corpuscular Volume 93, Mean Corpuscular Hemoglobin 30.1, Mean Corpuscular Hemoglobin Concent 32.3, Red Cell Distribution Width 14.3, Platelet Count 273, Mean Platelet Volume 9.2, Neutrophils (%) (Auto) 79.0H, Lymphocytes ( %) (Auto) 13.3L, Monocytes (%) (Auto) 6.6, Eosinophils (%) (Auto) 0.7, Basophils (%) (Auto) 0.5, Urine Color Pale yellow, Urine Appearance Clear, Urine pH 8, Urine Specific [place] 1.005, Urine Protein Negative, Urine Glucose (UA) 4+H, Urine Ketones 2+H, Urine Occult Blood Negative, Urine Nitrite Negative , Urine Bilirubin Negative, Urine Urobilinogen Normal, Urine Leukocyte Esterase 1+H, Urine RBC 0-2, Urine WBC 2-4, Urine Squamous Epithelial Cells Few, Urine Bacteria Few, Urine HCG, Qualitative Negative, Sodium Level 134L, Potassium Level 3.7, Chloride Level 84L, Carbon Dioxide Level 37H, Anion Gap 13, Blood Urea Nitrogen 15, Creatinine 1.3H, Estimat Glomerular Filtration Rate 55.3, Glucose Level 631*H, Lactic Acid Level 1.20, Calcium Level 9.1, Magnesium Level 1.8, Total Bilirubin 0.3, Aspartate Amino Transf (AST/SGOT) 15, Alanine Aminotransferase (ALT/SGPT) 19, Alkaline Phosphatase 162H, Total Protein 6.6, Albumin 3.5, Globulin 3.1, Albumin/Globulin Ratio 1.1, Lipase 8, Urine Opiates Screen Negative, Urine Barbiturates Screen Negative, Phencyclidine (PCP) Screen Negative, Urine Amphetamines Screen Negative, Urine Benzodiazepines Screen Negative, Urine Cocaine Screen Negative, Urine Marijuana (THC) Screen Negative, Acetone Level Positive-small Height (Feet): 5 Height (Inches): 6.00 Weight (Pounds): 120 General Appearance: alert EENT: normal ENT inspection Neck: supple Cardiovascular: normal rate Respiratory/Chest: decreased breath sounds Abdomen: normal bowel sounds, non tender, soft Extremities: non-tender QUAN BAZAN Feb 08, 2017 10:16
--- NOTE | 2017-02-08 10:30 | Consultation ---
History of Present Illness General Date patient seen: Feb 08, 2017 Time patient seen: 09:00 Chief Complaint: Chest Pain Referring physician: dr Arana Reason for Consultation: inpt management Present Illness HPI 41 y/old female who was discharged from the hospital yesterday , presented with epigastric pain and elevated blood sugar . She was admitted on January 29 with hyperosmolar state with a glucose of greater than 1000. Paramedics stated the Accu-Chek was unreadable. In the past she had been admitted for diabetic ketoacidosis. The last time her bicarbonate was normal and her glucose responded well to IV insulin and hydration. She reported vomiting. On this admission with leukocytosis, mild anemia, creat up to 1.3 normal anion gap, +2 ketones, lactic acid WNL, bicarbonate normal BS -631 started on IV hydration, insulin given and transferred to [facility] for further management Allergies: Coded Allergies: No Known Allergies (Verified , NONE, 10/30/05) Medication History Scheduled Amlodipine Besylate (Norvasc), 5 MG ORAL DAILY Insulin Aspart (Novolog Flexpen), 5 UNIT SQ AC Insulin Detemir (Levemir), 15 UNIT SUBQ BEDTIME Patient History History Provided By: Patient Healthcare decision maker Resuscitation status Advanced Directive on File Past Medical/Surgical History Past Medical/Surgical History: (1) DKA (diabetic ketoacidoses) (2) ARF (acute renal failure) (3) Anemia (4) Diabetes (5) Psychiatric disorder (6) Gastroparesis due to DM (7) esophageal wall thickening (8) Seizure disorder (9) HTN (hypertension) Review of Systems Constitutional: Reports: weakness Eye: Reports: no symptoms ENT: Reports: no symptoms Respiratory: Reports: no symptoms Cardiovascular: Reports: no symptoms Gastrointestinal: Reports: other - recent finding of esophageal wall thickening , see HPI Genitourinary: Reports: other - hx of ARF Musculoskeletal: Reports: no symptoms Skin: Reports: no symptoms Psychiatric: Reports: other - psych disorder Neurological: Reports: dizziness, other - seizure disorder Endocrine: Reports: other - diabetes, BS not controlled, see HPI Hematologic/Lymphatic: Reports: anemia Physical Exam General Appearance: WD/WN, no apparent distress, alert, confused Lines, tubes and drains: peripheral HEENT: normocephalic, atraumatic, anicteric, mucous membranes moist, PERRL Neck: non-tender, normal alignment, supple Respiratory/Chest: lungs clear, no respiratory distress, no accessory muscle use Cardiovascular/Chest: normal peripheral pulses, normal rate, regular rhythm Abdomen: normal bowel sounds, soft Skin Exam: normal pigmentation, warm/dry Neurologic: alert, responsive Musculoskeletal: normal muscle bulk Last 24 Hour Vital Signs Date Time Temp Pulse Resp B/P Pulse Ox O2 Delivery O2 Flow Rate FiO2 02/08/17 09:30 98.1 96 18 113/92 98 Room Air 02/08/17 09:00 98.8 89 12 110/82 98 Room Air 02/08/17 07:47 98.8 89 12 110/82 98 Room Air 02/08/17 06:25 98.8 91 15 122/78 97 Room Air 02/08/17 05:00 106 18 Room Air 02/08/17 04:43 98.8 106 18 133/74 100 Room Air Intake and Output 02/07/17 02/08/17 19:00 07:00 # Voids 1 Laboratory Tests Test 02/08/17 05:50 White Blood Count 15.8 K/UL (4.8-10.8) H Red Blood Count 3.68 M/UL (4.20-5.40) L Hemoglobin 11.1 G/DL (12.0-16.0) L Hematocrit 34.3 % (37.0-47.0) L Mean Corpuscular Volume 93 FL (80-99) Mean Corpuscular Hemoglobin 30.1 PG (27.0-31.0) Mean Corpuscular Hemoglobin Concent 32.3 G/DL (32.0-36.0) Red Cell Distribution Width 14.3 % (11.6-14.8) Platelet Count 273 K/UL (150-450) Mean Platelet Volume 9.2 FL (6.5-10.1) Neutrophils (%) (Auto) 79.0 % (45.0-75.0) H Lymphocytes (%) (Auto) 13.3 % (20.0-45.0) L Monocytes (%) (Auto) 6.6 % (1.0-10.0) Eosinophils (%) (Auto) 0.7 % (0.0-3.0) Basophils (%) (Auto) 0.5 % (0.0-2.0) Urine Color Pale yellow Urine Appearance Clear Urine pH 8 (4.5-8.0) Urine Specific [place] 1.005 (1.005-1.035) Urine Protein Negative (NEGATIVE) Urine Glucose (UA) 4+ (NEGATIVE) H Urine Ketones 2+ (NEGATIVE) H Urine Occult Blood Negative (NEGATIVE) Urine Nitrite Negative (NEGATIVE) Urine Bilirubin Negative (NEGATIVE) Urine Urobilinogen Normal MG/DL (0.0-1.0) Urine Leukocyte Esterase 1+ (NEGATIVE) H Urine RBC 0-2 /HPF (0 - 2) Urine WBC 2-4 /HPF (0 - 2) Urine Squamous Epithelial Cells Few /LPF (NONE/OCC) Urine Bacteria Few /HPF (NONE) Urine HCG, Qualitative Negative Sodium Level 134 mEQ/L (135-145) L Potassium Level 3.7 mEQ/L (3.4-4.9) Chloride Level 84 mEQ/L (98-107) L Carbon Dioxide Level 37 mEQ/L (20-30) H Anion Gap 13 (5-15) Blood Urea Nitrogen 15 mg/dL (7-23) Creatinine 1.3 mg/dL (0.5-0.9) H Estimat Glomerular Filtration Rate 55.3 mL/min (>60) Glucose Level 631 mg/dL (74-106) *H Lactic Acid Level 1.20 mmol/L (0.66-2.22) Calcium Level 9.1 mg/dL (8.6-10.2) Magnesium Level 1.8 mg/dL (1.7-2.5) Total Bilirubin 0.3 mg/dL (0.0-1.2) Aspartate Amino Transf (AST/SGOT) 15 U/L (5-40) Alanine Aminotransferase (ALT/SGPT) 19 U/L (3-33) Alkaline Phosphatase 162 U/L (35-104) H Total Protein 6.6 g/dL (6.6-8.7) Albumin 3.5 g/dL (3.5-5.2) Globulin 3.1 g/dL Albumin/Globulin Ratio 1.1 (1.0-2.7) Lipase 8 U/L (< 60) Urine Opiates Screen Negative (NEGATIVE) Urine Barbiturates Screen Negative (NEGATIVE) Phencyclidine (PCP) Screen Negative (NEGATIVE) Urine Amphetamines Screen Negative (NEGATIVE) Urine Benzodiazepines Screen Negative (NEGATIVE) Urine Cocaine Screen Negative (NEGATIVE) Urine Marijuana (THC) Screen Negative (NEGATIVE) Acetone Level Positive-small (NEGATIVE) Height (Feet): 5 Height (Inches): 6.00 Weight (Pounds): 120 Medications Current Medications Medications (Trade) Dose Ordered Sig/Mateo Route PRN Reason Start Time Stop Time Status Last Admin Dose Admin Acetaminophen (Tylenol) 650 mg Q4H PRN ORAL fever 02/08/17 07:45 03/10/17 07:44 Al Hydroxide/Mg Hydroxide (Mylanta II) 30 ml Q6H PRN ORAL dyspepsia 02/08/17 07:45 03/10/17 07:44 Albuterol/ Ipratropium (DuoNeb 0.5-3(2.5)mg/3ml) 3 ml Q4H PRN HHN Shortness of Breath 02/08/17 07:45 02/13/17 07:44 Amlodipine Besylate 5 mg 5 mg DAILY ORAL 02/08/17 09:00 03/10/17 08:59 Clonidine HCl (Catapres) 0.1 mg Q4H PRN ORAL sbp more than 160 02/08/17 07:45 03/10/17 07:44 Dextrose (Dextrose 50%) STAT PRN IV Hypoglycemia 02/08/17 07:45 03/10/17 07:44 Heparin Sodium (Porcine) (Heparin 5000 units/ml) 5,000 units EVERY 12 HOURS SUBQ 02/08/17 09:00 03/10/17 08:59 Insulin Aspart (NovoLOG) BEFORE MEALS AND HS SUBQ 02/08/17 11:30 03/10/17 11:29 Ketorolac Tromethamine (Toradol 30mg) 30 mg Q6H PRN IV moderate pain 4-6 02/08/17 07:45 02/13/17 07:44 Morphine Sulfate (Morphine Sulfate) 2 mg Q4H PRN IVP severe pain 7-10 02/08/17 07:45 02/15/17 07:44 Nitroglycerin (Ntg) 0.4 mg Q5M X 3 DOSES PRN SL Prn Chest Pain 02/08/17 07:45 03/10/17 07:44 Ondansetron HCl (Zofran) 4 mg Q6H PRN IVP Nausea & Vomiting 02/08/17 07:45 03/10/17 07:44 Polyethylene Glycol (Miralax) 17 gm HSPRN PRN ORAL Constipation 02/08/17 07:45 03/10/17 07:44 Sodium Chloride (Sodium Chloride 1000ml bag) 1,000 ml @ 100 mls/hr Q10H IVLG 02/08/17 09:00 03/10/17 08:59 Temazepam (Restoril) 15 mg HSPRN PRN ORAL Insomnia 02/08/17 07:45 02/15/17 07:44 Assessment/Plan Assessment/Plan ASSESSMENT Hyperosmolar nonketonic diabetic state DM out of control ARF epigastric pain anemia esophageal wall thickening - esophagitis? neoplasm? gastroparesis 2 to DM psychiatric disorder noncompliance PLAN OF CARE [facility] status IVF, monitor renal parameters, lytes BS management per endo, seen patient in ED antiemetic prn [id number] not at goal BS very labile, either high or critically low- further management as per endo diet as tolerated recent blood cx negative , leukocytosis? reactive , UA negative, CXR negative, will hold off on abx for now CTA chest no PE, but + thickening of esophagus, neoplasm vs esophagitis GI follows EGD planned for Friday continue Reglan ECHO with preserved EF 55% and RVSP of 18 Venous Duplex BLE negative O2 HHN prn continue psych meds PT/OT pain management bowel regimen a/emetic prn DVT, GI prophylaxis case discussed and evaluated by supervising physician Jayden Mauro)Cailin NP Feb 08, 2017 10:30
[2017-02-08] MEDS: Morphine Sulfate 2mg/ml Inj IVP PRN ×3 (11:36→21:23)
[2017-02-08] MEDS: Heparin 5000 units/ml inj SUBQ SCH ×2 (11:37→21:23)
--- NOTE | 2017-02-08 11:40 | Diagnostic Imaging Report ---
Indication: Chest pain Comparison: 01/29/17 A single view chest radiograph was obtained. Findings: Cardiomediastinal appearance is within normal limits for age. [place] foreign bodies again noted on the right side. Pulmonary vascularity is appropriate. The diaphragmatic contour is smooth and costophrenic angles are sharp. No pleural effusions are identified. The bones are unremarkable. Impression: No acute findings
[2017-02-08 12:00] VITALS: BP 124/81
[2017-02-08] MEDS: NovoLOG Insulin Flexpen SUBQ SCH ×5 (12:19→21:24)
[2017-02-08] MEDS: Levemir Flexpen SUBQ SCH (12:25)
[2017-02-08 16:00] VITALS: BP 113/84
--- NOTE | 2017-02-08 17:08 | History and Physical Report ---
DATE OF ADMISSION: 02/08/2017 TIME: 7 a.m. CONSULTANTS: 1. Fred Paz M.D. 2. Rell Jhaveri M.D. 3. Sharmila Poole M.D. 4. Bertin Alejo M.D. 5. Choco Lozada M.D. 6. Amberly Vickers M.D. 7. Patrice Melissa M.D. CHIEF COMPLAINT: Chest pain, nausea, vomiting, diabetes, and hyperglycemia. BRIEF HISTORY: The patient is a 41-year-old female who was hospitalized for about five days, discharged yesterday apparently did not take her medications and came home with elevated blood sugar with some chest pain, nausea, and vomiting. The patient was diagnosed the above in ER and currently being readmitted to telemetry. PAST MEDICAL HISTORY: Diabetes, encephalopathy, acute renal failure, and GERD. PAST SURGICAL HISTORY: None. MEDICATIONS: Insulin, Pepcid, Mylanta, IV fluids, and Zofran. ALLERGIES: Denies. SOCIAL HISTORY: Positive smoke. No alcohol. No intravenous drug abuse. FAMILY HISTORY: Noncontributory. REVIEW OF SYSTEMS: Slight chest pain. Slight shortness of breath. Slight nausea and vomiting. No diarrhea. PHYSICAL EXAMINATION: GENERAL: The patient is calm in bed, oriented x2, no acute distress. VITAL SIGNS: Temperature is 98 degrees, pulse 99, respiratory rate 15, and blood pressure 122/78. CARDIOVASCULAR: Distant. No murmur. LUNGS: Distant and clear. ABDOMEN: Positive bowel sounds. Nontender and nondistended. EXTREMITIES: No cyanosis, clubbing, or edema. NEUROLOGIC: The patient moves all extremities and does not want to follow commands. LABORATORY AND DIAGNOSTIC DATA: White count 15.8, hemoglobin and hematocrit 11/34, and platelet is 273,000. Sodium 134, chloride 84, bicarbonate 37, creatinine 1.3 and glucose is 631. Urinalysis showed 4+ glucose, 2+ ketones, 1+ leukocyte esterase and urine toxicology positive for acetone. ASSESSMENT: 1. Chest pain. 2. Urinary tract infection. 3. Nausea, vomiting and diarrhea. 4. Hyperglycemia. 5. Anemia. 6. Encephalopathy. 7. Acute renal failure. 8. Gastroesophageal reflux disease. PLAN: Continue premedications. O2 pulmonary treatment as needed. Accu-Chek sliding scale. Pain control. Resume home medications. Troponin q.8 h. x3. EKG in the morning. Dr. Paz, Dr. Alejo, Dr. Lozada, Dr. Vickers, Dr. Melissa, Dr. Jhaveri and Dr. Poole to consult. CBC and BMP in the morning. OT/PT and dietary evaluation. Brandon Arana D.O. DR: TRIXIE JOB#: [id number] CC:
[2017-02-08 20:00] VITALS: BP 121/75
--- NOTE | 2017-02-08 21:28 | Consultation ---
DATE OF CONSULTATION: 02/08/2017 ENDOCRINOLOGY CONSULTATION: REFERRING PHYSICIAN: Brandon Arana D.O. REASON FOR CONSULTATION: Diabetes control. HISTORY OF PRESENT ILLNESS: The patient is a 41-year-old female with history of type 1 diabetes on insulin drip as well as noncompliance with medication. The patient had a recent admission at [facility] after she presented with diabetic ketoacidosis. At this time, the patient shortly after discharge came back with hyperglycemia. Nephrology was consulted again. PAST MEDICAL HISTORY: 1. Diabetes. 2. Multiple admission with possible DKA . 3. Gastroesophageal reflux disease. PAST SURGICAL HISTORY: None. SOCIAL HISTORY: No smoking, alcohol, or drug use. FAMILY HISTORY: Noncontributory. REVIEW OF SYSTEMS: As per HPI. PHYSICAL EXAMINATION: GENERAL: The patient is not talking to me. VITAL SIGNS: Blood pressure 115/92, pulse 93, temperature 98.1 degrees, and respiratory rate 18. HEENT: Pupils are equal and reactive to light. Sclerae are anicteric. NECK: No JVD. No thyromegaly. LUNGS: Clear. HEART: Regular rate and rhythm. ABDOMEN: Positive bowel sounds. EXTREMITIES: No clubbing, cyanosis, or edema. LABORATORY DATA: WBC 15.8, hemoglobin 11.9, and hematocrit 34.3. Sodium 134, potassium 3.7, chloride 84, bicarbonate 27, BUN 15, creatinine 1.3, and glucose 631. DIAGNOSES: 1. Type 1 diabetes, out of control. 2. No evidence of diabetic ketoacidosis. 3. Non compliance 4. Possible underlying psychiatric illness. PLAN: 1. Levemir 15 units daily. 2. NovoLog 4 units before each meal. 3. NovoLog sliding scale. 4. Further adjustment according to the blood glucose values. I will follow during the hospital stay. Thank you, Dr. Arana, for the courtesy of this consultation. Bertin Alejo M.D. DR: Tory JOB#: [id number] CC: ALICIA
[2017-02-09] VITALS: BP 117/75
[2017-02-09 04:00] VITALS: BP 113/67
[2017-02-09 05:57] LABS: BASOPHILS % (AUTO) 0.5 % (0.0-2.0); EOSINOPHILS % (AUTO) 1.7 % (0.0-3.0); LYMPHOCYTES % (AUTO) 34.2 % (20.0-45.0); MEAN CORPUSCULAR HEMOGLOBIN 29.9 PG (27.0-31.0); MEAN CORPUSCULAR HGB CONC 32.6 G/DL (32.0-36.0); MEAN CORPUSCULAR VOLUME 92 FL (80-99); MEAN PLATELET VOLUME 8.9 FL (6.5-10.1); MONOCYTES % (AUTO) 6.3 % (1.0-10.0); NEUTROPHILS % (AUTO) 57.3 % (45.0-75.0); PLATELET COUNT 236 K/UL (150-450); RED BLOOD COUNT 3.47 M/UL (4.20-5.40); WHITE BLOOD COUNT 11.1 K/UL (4.8-10.8)
[2017-02-09 06:14] LABS: CARBON DIOXIDE 32 mEQ/L (20-30); CHLORIDE 97 mEQ/L (98-107); CREATININE 0.9 mg/dL (0.5-0.9); GLOMERULAR FILTRATION RATE > 60 mL/min (>60); HEMOLYSIS 3; SODIUM 141 mEQ/L (135-145)
[2017-02-09 06:23] LABS: ANION GAP 12 (5-15)
[2017-02-09 06:24] LABS: POTASSIUM 2.7 mEQ/L (3.4-4.9)
[2017-02-09] MEDS: NovoLOG Insulin Flexpen SUBQ SCH ×7 (06:30→21:00)
[2017-02-09 06:50] LABS: ALANINE AMINOTRANSFERASE 15 U/L (3-33); ANION GAP 14 (5-15); ASPARTATE AMINO TRANSFERASE 16 U/L (5-40); CALCIUM 8.9 mg/dL (8.6-10.2); CARBON DIOXIDE 30 mEQ/L (20-30); CHLORIDE 96 mEQ/L (98-107); CHOLESTEROL 143 mg/dL (< 200); CHOLESTEROL/HDL RATIO 4.9 (3.3-4.4); CREATININE 0.9 mg/dL (0.5-0.9); GLOMERULAR FILTRATION RATE > 60 mL/min (>60); HEMOLYSIS 5; LDL CHOLESTEROL (CALC.) 92 mg/dL (60-99); SODIUM 140 mEQ/L (135-145); TOTAL PROTEIN 6.3 g/dL (6.6-8.7)
[2017-02-09 06:55] LABS: HEMOGLOBIN A1C 9.9 % (< 6.0)
--- NOTE | 2017-02-09 06:59 | General Progress Note ---
Assessment/Plan Problem List: (1) Abnormal white blood cell (WBC) count ICD Codes: D72.9 - Disorder of white blood cells, unspecified SNOMED: 400670594 (2) Intractable nausea and vomiting ICD Codes: R11.2 - Nausea with vomiting, unspecified SNOMED: 366095235, 165249892 (3) Diabetes ICD Codes: E11.9 - Type 2 diabetes mellitus without complications SNOMED: 17757620 (4) Hyperglycemia ICD Codes: R73.9 - Hyperglycemia, unspecified SNOMED: 42308069 (5) Psychiatric disorder ICD Codes: F99 - Mental disorder, not otherwise specified SNOMED: 71172407, 283649072 (6) Gastroparesis due to DM ICD Codes: E11.43 - Type 2 diabetes mellitus with diabetic autonomic (poly) neuropathy; K31.84 - Gastroparesis SNOMED: 49140339, 117057614 (7) esophageal wall thickening (8) ARF (acute renal failure) ICD Codes: N17.9 - Acute kidney failure, unspecified SNOMED: 81138442 (9) HTN (hypertension) ICD Codes: I10 - Essential (primary) hypertension SNOMED: 71137093 Status: stable, progressing, tolerating diet Status Narrative ot pt diet bp bs control abx prn cbc bmp am Subjective Constitutional: Reports: weakness Allergies: Coded Allergies: No Known Allergies (Verified , NONE, 10/30/05) All Systems: reviewed and negative except above Subjective calm awake in bed Objective Last 24 Hour Vital Signs Date Time Temp Pulse Resp B/P Pulse Ox O2 Delivery O2 Flow Rate FiO2 02/09/17 04:00 97.9 46 19 113/67 99 Room Air 02/09/17 04:00 51 02/09/17 00:00 97.5 68 19 117/75 98 Room Air 02/09/17 00:00 68 02/08/17 22:00 98.1 02/08/17 20:00 88 02/08/17 20:00 98.1 72 18 121/75 100 Room Air 02/08/17 16:00 97.9 83 20 113/84 100 Room Air 02/08/17 12:00 97.2 89 20 124/81 99 Room Air 02/08/17 12:00 91 02/08/17 10:30 96 113/92 02/08/17 09:30 88 02/08/17 09:30 98.1 96 18 113/92 98 Room Air 02/08/17 09:00 98.8 89 12 110/82 98 Room Air 02/08/17 07:47 98.8 89 12 110/82 98 Room Air Intake and Output 02/08/17 02/09/17 19:00 07:00 Intake Total 3330 ml 0 ml Balance 3330 ml 0 ml Intake Oral 730 ml 0 ml IV Total 2600 ml # Voids 2 # Bowel Movements 2 Laboratory Tests 02/09/17 05:45: White Blood Count 11.1H, Red Blood Count 3.47L, Hemoglobin 10.4L, Hematocrit 31.8L, Mean Corpuscular Volume 92, Mean Corpuscular Hemoglobin 29.9, Mean Corpuscular Hemoglobin Concent 32.6, Red Cell Distribution Width 14.0, Platelet Count 236, Mean Platelet Volume 8.9, Neutrophils (%) (Auto) 57.3, Lymphocytes (% ) (Auto) 34.2, Monocytes (%) (Auto) 6.3, Eosinophils (%) (Auto) 1.7, Basophils ( %) (Auto) 0.5, Sodium Level [Pending], Potassium Level [Pending], Chloride Level [Pending], Carbon Dioxide Level [Pending], Anion Gap 12, Blood Urea Nitrogen [Pending], Creatinine [Pending], Estimat Glomerular Filtration Rate [ Pending], Glucose Level [Pending], Hemoglobin A1c 9.9H, Calcium Level [Pending] , Total Bilirubin [Pending], Aspartate Amino Transf (AST/SGOT) [Pending], Alanine Aminotransferase (ALT/SGPT) [Pending], Alkaline Phosphatase [Pending], Total Protein [Pending], Albumin [Pending], Globulin [Pending], Triglycerides Level [Pending], Cholesterol Level [Pending], LDL Cholesterol [Pending], HDL Cholesterol [Pending], Cholesterol/HDL Ratio [Pending], Thyroid Stimulating Hormone (TSH) [Pending] Height (Feet): 5 Height (Inches): 6.00 Weight (Pounds): 120 General Appearance: lethargic EENT: normal ENT inspection Neck: normal alignment Cardiovascular: normal peripheral pulses, normal rate, regular rhythm Respiratory/Chest: chest wall non-tender, lungs clear, normal breath sounds Abdomen: normal bowel sounds, non tender, soft Extremities: normal inspection Edema: no edema noted Arm (L), no edema noted Arm (R), no edema noted Leg (L), no edema noted Leg (R), no edema noted Pedal (L), no edema noted Pedal (R), no edema noted Generalized Neurologic: responsive, motor weakness Skin: normal pigmentation, warm/dry ENOCH GONZALEZ Feb 09, 2017 06:59
[2017-02-09 07:04] LABS: POTASSIUM 2.7 mEQ/L (3.4-4.9)
[2017-02-09 08:00] VITALS: BP 117/72
[2017-02-09] MEDS: Heparin 5000 units/ml inj SUBQ SCH ×2 (08:20→21:00)
[2017-02-09] MEDS: Levemir Flexpen SUBQ SCH ×2 (09:00→12:20)
--- NOTE | 2017-02-09 10:01 | General Progress Note ---
Assessment/Plan Problem List: (1) esophageal wall thickening (2) Psychiatric disorder ICD Codes: F99 - Mental disorder, not otherwise specified SNOMED: 60353447, 277936149 (3) Gastroparesis due to DM ICD Codes: E11.43 - Type 2 diabetes mellitus with diabetic autonomic (poly) neuropathy; K31.84 - Gastroparesis SNOMED: 26299061, 174694506 (4) Hyperglycemia ICD Codes: R73.9 - Hyperglycemia, unspecified SNOMED: 63232277 (5) Diabetes ICD Codes: E11.9 - Type 2 diabetes mellitus without complications SNOMED: 44473213 (6) Anemia ICD Codes: D64.9 - Anemia, unspecified SNOMED: 808724152 Assessment/Plan plan EGD tomorrow fu labs Subjective ROS Limited/Unobtainable: Yes Allergies: Coded Allergies: No Known Allergies (Verified , NONE, 10/30/05) Subjective c/o vomiting Objective Last 24 Hour Vital Signs Date Time Temp Pulse Resp B/P Pulse Ox O2 Delivery O2 Flow Rate FiO2 02/09/17 08:00 87 02/09/17 08:00 88 20 117/72 98 Room Air 02/09/17 04:00 97.9 46 19 113/67 99 Room Air 02/09/17 04:00 51 02/09/17 00:00 97.5 68 19 117/75 98 Room Air 02/09/17 00:00 68 02/08/17 22:00 98.1 02/08/17 20:00 88 02/08/17 20:00 98.1 72 18 121/75 100 Room Air 02/08/17 16:00 97.9 83 20 113/84 100 Room Air 02/08/17 12:00 97.2 89 20 124/81 99 Room Air 02/08/17 12:00 91 02/08/17 10:30 96 113/92 Intake and Output 02/08/17 02/09/17 19:00 07:00 Intake Total 3330 ml 667 ml Balance 3330 ml 667 ml Intake Oral 730 ml 200 ml IV Total 2600 ml 467 ml # Voids 2 # Bowel Movements 2 Laboratory Tests 02/09/17 05:45: White Blood Count 11.1H, Red Blood Count 3.47L, Hemoglobin 10.4L, Hematocrit 31.8L, Mean Corpuscular Volume 92, Mean Corpuscular Hemoglobin 29.9, Mean Corpuscular Hemoglobin Concent 32.6, Red Cell Distribution Width 14.0, Platelet Count 236, Mean Platelet Volume 8.9, Neutrophils (%) (Auto) 57.3, Lymphocytes (% ) (Auto) 34.2, Monocytes (%) (Auto) 6.3, Eosinophils (%) (Auto) 1.7, Basophils ( %) (Auto) 0.5, Sodium Level 140, Potassium Level 2.7*L, Chloride Level 96L, Carbon Dioxide Level 30, Anion Gap 14, Blood Urea Nitrogen 11, Creatinine 0.9, Estimat Glomerular Filtration Rate > 60, Glucose Level 25*L, Hemoglobin A1c 9.9H , Calcium Level 8.9, Total Bilirubin < 0.2, Aspartate Amino Transf (AST/SGOT) 16 , Alanine Aminotransferase (ALT/SGPT) 15, Alkaline Phosphatase 134H, Total Protein 6.3L, Albumin 3.2L, Globulin 3.1, Albumin/Globulin Ratio 1.0, Triglycerides Level 110, Cholesterol Level 143, LDL Cholesterol 92, HDL Cholesterol 29, Cholesterol/HDL Ratio 4.9H, Thyroid Stimulating Hormone (TSH) 0.600 Height (Feet): 5 Height (Inches): 6.00 Weight (Pounds): 120 General Appearance: alert EENT: normal ENT inspection Neck: supple Cardiovascular: normal rate Respiratory/Chest: decreased breath sounds Abdomen: normal bowel sounds, non tender, soft Extremities: non-tender QUAN BAZAN Feb 09, 2017 10:01
--- NOTE | 2017-02-09 11:21 | Pulmonology Progress Note ---
Assessment/Plan Assessment/Plan ASSESSMENT Hyperosmolar nonketonic diabetic state DM out of control and labile ARF hypokalemia epigastric pain anemia esophageal wall thickening - esophagitis? neoplasm? gastroparesis 2 to DM psychiatric disorder noncompliance PLAN OF CARE [place] status IVF, monitor renal parameters, lytes , cerat down to normal, low K replace K , check K and Mg in am BS management per endo, seen patient in ED antiemetic prn [id number] not at goal BS very labile, either high or critically low- further management as per endo, follows diet as tolerated recent blood cx negative , leukocytosis? reactive , UA negative, CXR negative, will hold off on abx for now, leukocytosis trending down CTA chest no PE, but + thickening of esophagus, neoplasm vs esophagitis GI follows EGD planned for Friday while NPO needs IVF with D5 1/2 NS continue Reglan ECHO with preserved EF 55% and RVSP of 18 Venous Duplex BLE negative O2 HHN prn continue psych meds PT/OT pain management bowel regimen a/emetic prn DVT, GI prophylaxis recommend psych eval as per PMD discretion transfer to [place] case discussed and evaluated by supervising physician Subjective Allergies: Coded Allergies: No Known Allergies (Verified , NONE, 10/30/05) Subjective leukocytosis trending down afebrile K-2.7 creat down to normal episode of hypoglycemia of 25 this am, D50 given, blood sugar better Objective Last 24 Hour Vital Signs Date Time Temp Pulse Resp B/P Pulse Ox O2 Delivery O2 Flow Rate FiO2 02/09/17 10:04 87 117/72 02/09/17 08:00 87 02/09/17 08:00 88 20 117/72 98 Room Air 02/09/17 04:00 97.9 46 19 113/67 99 Room Air 02/09/17 04:00 51 02/09/17 00:00 97.5 68 19 117/75 98 Room Air 02/09/17 00:00 68 02/08/17 22:00 98.1 02/08/17 20:00 88 02/08/17 20:00 98.1 72 18 121/75 100 Room Air 02/08/17 16:00 97.9 83 20 113/84 100 Room Air 02/08/17 12:00 97.2 89 20 124/81 99 Room Air 02/08/17 12:00 91 Intake and Output 02/08/17 02/09/17 19:00 07:00 Intake Total 3330 ml 667 ml Balance 3330 ml 667 ml Intake Oral 730 ml 200 ml IV Total 2600 ml 467 ml # Voids 2 # Bowel Movements 2 Objective General Appearance: WD/WN, no apparent distress, alert, responsive Lines, tubes and drains: peripheral HEENT: normocephalic, atraumatic, anicteric, mucous membranes moist, PERRL Neck: non-tender, normal alignment, supple Respiratory/Chest: lungs clear, no respiratory distress, no accessory muscle use Cardiovascular/Chest: normal peripheral pulses, normal rate, regular rhythm Abdomen: normal bowel sounds, soft Skin Exam: normal pigmentation, warm/dry Neurologic: alert, responsive Musculoskeletal: normal muscle bulk Laboratory Tests 02/09/17 05:45: White Blood Count 11.1H, Red Blood Count 3.47L, Hemoglobin 10.4L, Hematocrit 31.8L, Mean Corpuscular Volume 92, Mean Corpuscular Hemoglobin 29.9, Mean Corpuscular Hemoglobin Concent 32.6, Red Cell Distribution Width 14.0, Platelet Count 236, Mean Platelet Volume 8.9, Neutrophils (%) (Auto) 57.3, Lymphocytes (% ) (Auto) 34.2, Monocytes (%) (Auto) 6.3, Eosinophils (%) (Auto) 1.7, Basophils ( %) (Auto) 0.5, Sodium Level 140, Potassium Level 2.7*L, Chloride Level 96L, Carbon Dioxide Level 30, Anion Gap 14, Blood Urea Nitrogen 11, Creatinine 0.9, Estimat Glomerular Filtration Rate > 60, Glucose Level 25*L, Hemoglobin A1c 9.9H , Calcium Level 8.9, Total Bilirubin < 0.2, Aspartate Amino Transf (AST/SGOT) 16 , Alanine Aminotransferase (ALT/SGPT) 15, Alkaline Phosphatase 134H, Total Protein 6.3L, Albumin 3.2L, Globulin 3.1, Albumin/Globulin Ratio 1.0, Triglycerides Level 110, Cholesterol Level 143, LDL Cholesterol 92, HDL Cholesterol 29, Cholesterol/HDL Ratio 4.9H, Thyroid Stimulating Hormone (TSH) 0.600 Current Medications Medications (Trade) Dose Ordered Sig/Mateo Route PRN Reason Start Time Stop Time Status Last Admin Dose Admin Acetaminophen (Tylenol) 650 mg Q4H PRN ORAL fever 02/08/17 07:45 03/10/17 07:44 Al Hydroxide/Mg Hydroxide (Mylanta II) 30 ml Q6H PRN ORAL dyspepsia 02/08/17 07:45 03/10/17 07:44 Albuterol/ Ipratropium (DuoNeb 0.5-3(2.5)mg/3ml) 3 ml Q4H PRN HHN Shortness of Breath 02/08/17 07:45 02/13/17 07:44 Amlodipine Besylate 5 mg 5 mg DAILY ORAL 02/08/17 09:00 03/10/17 08:59 02/09/17 10:04 Clonidine HCl (Catapres) 0.1 mg Q4H PRN ORAL sbp more than 160 02/08/17 07:45 03/10/17 07:44 Dextrose (Dextrose 50%) STAT PRN IV Hypoglycemia 02/08/17 11:45 03/10/17 11:44 02/09/17 06:28 Heparin Sodium (Porcine) (Heparin 5000 units/ml) 5,000 units EVERY 12 HOURS SUBQ 02/08/17 09:00 03/10/17 08:59 02/09/17 08:20 Insulin Aspart (NovoLOG) BEFORE MEALS AND HS SUBQ 02/08/17 11:30 03/10/17 11:29 02/08/17 21:24 Insulin Aspart (NovoLOG) 4 units NOVOTIAC SUBQ 02/08/17 13:30 03/10/17 13:29 Insulin Detemir (Levemir) 15 units DAILY SUBQ 02/08/17 13:30 03/10/17 13:29 02/08/17 12:25 Ketorolac Tromethamine (Toradol 30mg) 30 mg Q6H PRN IV moderate pain 4-6 02/08/17 07:45 02/13/17 07:44 Morphine Sulfate (Morphine Sulfate) 2 mg Q4H PRN IVP severe pain 7-10 02/08/17 07:45 02/15/17 07:44 02/08/17 21:23 Nitroglycerin (Ntg) 0.4 mg Q5M X 3 DOSES PRN SL Prn Chest Pain 02/08/17 07:45 03/10/17 07:44 Ondansetron HCl (Zofran) 4 mg Q6H PRN IVP Nausea & Vomiting 02/08/17 07:45 03/10/17 07:44 02/09/17 08:15 Polyethylene Glycol (Miralax) 17 gm HSPRN PRN ORAL Constipation 02/08/17 07:45 03/10/17 07:44 Sodium Chloride (Sodium Chloride 1000ml bag) 1,000 ml @ 100 mls/hr Q10H IVLG 02/08/17 09:00 03/10/17 08:59 02/09/17 06:18 Temazepam (Restoril) 15 mg HSPRN PRN ORAL Insomnia 02/08/17 07:45 02/15/17 07:44 Jayden ([facility])Cailin NP Feb 09, 2017 11:21
[2017-02-09] MEDS: KCl 10% 40mEq/30ml liquid NG SCH ×2 (12:21→18:21)
[2017-02-09] MEDS: Morphine Sulfate 2mg/ml Inj IVP PRN (16:25)
[2017-02-09 16:39] VITALS: BP 154/93
[2017-02-09 20:00] VITALS: BP 153/110
[2017-02-09] MEDS ORDERED: Nitroglycerin Subl 0.4mg tab (Bottle Of 25) SL PRN (22:15)
[2017-02-09] MEDS ORDERED: Morphine Sulfate 2mg/ml Inj IVP PRN (23:45)
[2017-02-09] MEDS ORDERED: DuoNeb 0.5-3(2.5)mg/3ml neb HHN PRN (23:45)
[2017-02-10] VITALS (7 sets, daily range): BP systolic 127–170; BP diastolic 88–100
[2017-02-10] MEDS ORDERED: Mylanta II UD 30ml ORAL PRN (01:45)
[2017-02-10] MEDS ORDERED: Ketorolac 30mg Inj IV PRN (01:45)
[2017-02-10] MEDS: NovoLOG Insulin Flexpen SUBQ SCH ×5 (06:30→21:58)
[2017-02-10 07:43] LABS: BASOPHILS % (AUTO) 0.7 % (0.0-2.0); EOSINOPHILS % (AUTO) 1.3 % (0.0-3.0); LYMPHOCYTES % (AUTO) 25.5 % (20.0-45.0); MEAN CORPUSCULAR HEMOGLOBIN 29.7 PG (27.0-31.0); MEAN CORPUSCULAR HGB CONC 32.4 G/DL (32.0-36.0); MEAN CORPUSCULAR VOLUME 92 FL (80-99); MEAN PLATELET VOLUME 8.6 FL (6.5-10.1); MONOCYTES % (AUTO) 4.9 % (1.0-10.0); NEUTROPHILS % (AUTO) 67.6 % (45.0-75.0); PLATELET COUNT 210 K/UL (150-450); RED BLOOD COUNT 4.05 M/UL (4.20-5.40); RED CELL DISTRIBUTION WIDTH 14.3 % (11.6-14.8); WHITE BLOOD COUNT 11.7 K/UL (4.8-10.8)
[2017-02-10] MEDS ORDERED: Miralax 17gm pkt ORAL PRN (07:45)
[2017-02-10] MEDS ORDERED: D5 1/2NS 1,000 ML IV SCH (08:00)
[2017-02-10 08:06] LABS: ALANINE AMINOTRANSFERASE 14 U/L (3-33); ANION GAP 15 (5-15); ASPARTATE AMINO TRANSFERASE 18 U/L (5-40); CALCIUM 9.5 mg/dL (8.6-10.2); CARBON DIOXIDE 31 mEQ/L (20-30); CHLORIDE 94 mEQ/L (98-107); GLOMERULAR FILTRATION RATE > 60 mL/min (>60); HEMOLYSIS 7; SODIUM 140 mEQ/L (135-145); TOTAL PROTEIN 7.1 g/dL (6.6-8.7)
[2017-02-10] MEDS ORDERED: Levemir Flexpen SUBQ SCH (09:00)
[2017-02-10] MEDS ORDERED: Heparin 5000 units/ml inj SUBQ SCH (09:00)
--- NOTE | 2017-02-10 11:21 | Pre-Procedure Note/Attestation ---
Pre-Procedure Note/Attestation Complete Prior to Procedure Planned Procedure: not applicable Procedure Narrative: egd Indications for Procedure Pre-Operative Diagnosis: anemia Attestation I attest that I discussed the nature of the procedure; its benefits; risks and complications; and alternatives (and the risks and benefits of such alternatives ), prior to the procedure, with the patient (or the patient's legal hardware supplies sales representative). I attest that, if there was a reasonable possibility of needing a blood transfusion, the patient (or the patient's legal hardware supplies sales representative) was given the [facility] standardized written summary, pursuant to the [place] Blood Safety Act ([place] Health and Safety Code # 1645, as amended). I attest that I re-evaluated the patient just prior to the surgery and that there has been no change in the patient's H&P, except as documented below: QUAN BAZAN Feb 10, 2017 11:21
--- NOTE | 2017-02-10 11:49 | Anethesia Preoperative Eval ---
Anesthesia Pre-op PMH/ROS General Date of Evaluation: Feb 10, 2017 Anesthesiologist: Nick ASA Score: ASA 3 Mallampati Score Class I : Soft palate, uvula, fauces, pillars visible Class II: Soft palate, uvula, fauces visible Class III: Soft palate, base of uvula visible Class IV: Only hard plate visible Mallampati Classification: Class II Surgeon: Alee Diagnosis: Abdominal pain Surgical Procedure: EGD Anesthesia History: none Family History: no anesthesia problems Allergies: Coded Allergies: No Known Allergies (Verified , NONE, 10/30/05) Medications: see eMAR Past Medical History Cardiovascular: Reports: HTN, other - CHF, Denies: CAD, OR, arrhythmia, valve dz Pulmonary: Denies: COPD, EBONIE, asthma, other Gastrointestinal/Genitourinary: Reports: ESRD, GERD, other - gastropareis, pancreatitis, Denies: CRI Neurologic/Psychiatric: Reports: depression/anxiety, other - seizures, ADD, vrtigo, Denies: CVA, TIA, dementia Endocrine: Reports: DM, Denies: hypothyroidism, other, steroids HEENT: Denies: [place] (L), [place] (R), cataract (L), cataract (R), glaucoma, other Hematology/Immune: Reports: anemia, Denies: DVT, bleeding disorder, other Musculoskeletal/Integumentary: Denies: DDD, DJD, OA, RA, edema, other Anesthesia Pre-op Phys. Exam Physician Exam Last Vital Signs Date Time Temp Pulse Resp B/P Pulse Ox O2 Delivery O2 Flow Rate FiO2 02/10/17 09:07 95 148/96 02/10/17 08:00 96.9 16 95 Room Air Constitutional: NAD Cardiovascular: RRR Respiratory: CTA Airway Exam Mallampati Score: Class II Anesthesia Pre-op A/P Labs Hematology Test 02/10/17 07:28 White Blood Count 11.7 K/UL (4.8-10.8) H Red Blood Count 4.05 M/UL (4.20-5.40) L Hemoglobin 12.0 G/DL (12.0-16.0) Hematocrit 37.1 % (37.0-47.0) Mean Corpuscular Volume 92 FL (80-99) Mean Corpuscular Hemoglobin 29.7 PG (27.0-31.0) Mean Corpuscular Hemoglobin Concent 32.4 G/DL (32.0-36.0) Red Cell Distribution Width 14.3 % (11.6-14.8) Platelet Count 210 K/UL (150-450) Mean Platelet Volume 8.6 FL (6.5-10.1) Neutrophils (%) (Auto) 67.6 % (45.0-75.0) Lymphocytes (%) (Auto) 25.5 % (20.0-45.0) Monocytes (%) (Auto) 4.9 % (1.0-10.0) Eosinophils (%) (Auto) 1.3 % (0.0-3.0) Basophils (%) (Auto) 0.7 % (0.0-2.0) Chemistry Test 02/10/17 07:28 Sodium Level 140 mEQ/L (135-145) Potassium Level 4.0 mEQ/L (3.4-4.9) Chloride Level 94 mEQ/L (98-107) L Carbon Dioxide Level 31 mEQ/L (20-30) H Anion Gap 15 (5-15) Blood Urea Nitrogen 9 mg/dL (7-23) Creatinine 1.0 mg/dL (0.5-0.9) H Estimat Glomerular Filtration Rate > 60 mL/min (>60) Glucose Level 130 mg/dL (74-106) #H Calcium Level 9.5 mg/dL (8.6-10.2) Magnesium Level 1.5 mg/dL (1.7-2.5) L Total Bilirubin < 0.2 mg/dL (0.0-1.2) Aspartate Amino Transf (AST/SGOT) 18 U/L (5-40) Alanine Aminotransferase (ALT/SGPT) 14 U/L (3-33) Alkaline Phosphatase 153 U/L (35-104) H Total Protein 7.1 g/dL (6.6-8.7) Albumin 3.6 g/dL (3.5-5.2) Globulin 3.5 g/dL Albumin/Globulin Ratio 1.0 (1.0-2.7) Carcinoembryonic Antigen 3.3 ng/mL H Studies Pre-op Studies: EKG - sr Risk Assessment & Plan Assessment: ASA III Plan: MAC Status Change Before Surgery: No Pre-Antibiotics Drug: N/A DARRIUS DE PAZ M.D. 20, 2017 11:48
[2017-02-10] MEDS ORDERED: Lidocaine 1% MPF 10mg/ml 5ml ONE (12:45)
[2017-02-10] MEDS ORDERED: Propofol 10mg/ml 20ml IV ONE (12:45)
[2017-02-10] MEDS ORDERED: LR 1000ml ONE (12:45)
[2017-02-10] MEDS ORDERED: NS 550ML IV ONE (12:56)
--- NOTE | 2017-02-10 13:09 | Endoscopy Procedure Note ---
Endoscopy Procedure Note Indication for Procedure: esophagitis Procedures Performed: EGD Operative Findings/Diagnosis: same Specimen: yes Pt Tolerated Procedure Well: Yes Estimated Blood Loss: none Anesthesiologist: rolando Anesthesia: MAC Implant(s) used?: No 50 yrs or older w/o bx or poly: Not Applicable 10yrs. F/U not recommended: Not Applicable QUAN BAZAN Feb 10, 2017 13:09
--- NOTE | 2017-02-10 13:11 | Pulmonology Progress Note ---
Assessment/Plan Problems: (1) Hyperglycemia (2) Intractable nausea and vomiting (3) Gastroparesis due to DM (4) Diabetes (5) Anemia Assessment/Plan IVF f/u EGD results insulin coverage sliding scale f/u h/h transfuse if hem < 8 Subjective ROS Limited/Unobtainable: No Constitutional: Reports: no symptoms HEENT: Repors: no symptoms Allergies: Coded Allergies: No Known Allergies (Verified , NONE, 10/30/05) Objective Last 24 Hour Vital Signs Date Time Temp Pulse Resp B/P Pulse Ox O2 Delivery O2 Flow Rate FiO2 02/10/17 12:00 104 02/10/17 09:07 95 148/96 02/10/17 08:00 96.9 95 16 148/96 95 Room Air 02/10/17 08:00 94 02/10/17 04:00 87 02/10/17 00:00 82 02/09/17 20:00 90 02/09/17 20:00 97.5 92 18 153/110 100 Room Air 02/09/17 16:39 97.5 92 18 154/93 100 Room Air Intake and Output 02/09/17 02/10/17 19:00 07:00 Intake Total 1190 ml 570 ml Balance 1190 ml 570 ml Intake Oral 690 ml 120 ml IV Total 500 ml 450 ml # Voids 3 2 General Appearance: WD/WN HEENT: normocephalic, atraumatic Respiratory/Chest: chest wall non-tender, normal breath sounds Breasts: no masses Cardiovascular: normal peripheral pulses Abdomen: normal bowel sounds, soft, non tender Genitourinary: normal external genitalia Extremities: no clubbing Skin: no rash Microbiology Date/Time Source Procedure Growth Status 02/08/17 05:30 Blood Blood Culture - Preliminary NO GROWTH AFTER 24 HOURS Resulted 02/08/17 05:15 Blood Blood Culture - Preliminary NO GROWTH AFTER 24 HOURS Resulted 02/08/17 09:55 Nasal Nares MRSA Culture - Final NO METHICILLIN RESISTANT STAPH AUREUS... Complete Laboratory Tests 02/10/17 07:28: White Blood Count 11.7H, Red Blood Count 4.05L, Hemoglobin 12.0, Hematocrit 37.1 , Mean Corpuscular Volume 92, Mean Corpuscular Hemoglobin 29.7, Mean Corpuscular Hemoglobin Concent 32.4, Red Cell Distribution Width 14.3, Platelet Count 210, Mean Platelet Volume 8.6, Neutrophils (%) (Auto) 67.6, Lymphocytes (% ) (Auto) 25.5, Monocytes (%) (Auto) 4.9, Eosinophils (%) (Auto) 1.3, Basophils ( %) (Auto) 0.7, Sodium Level 140, Potassium Level 4.0, Chloride Level 94L, Carbon Dioxide Level 31H, Anion Gap 15, Blood Urea Nitrogen 9, Creatinine 1.0H, Estimat Glomerular Filtration Rate > 60, Glucose Level 130#H, Calcium Level 9.5 , Magnesium Level 1.5L, Total Bilirubin < 0.2, Aspartate Amino Transf (AST/SGOT ) 18, Alanine Aminotransferase (ALT/SGPT) 14, Alkaline Phosphatase 153H, Total Protein 7.1, Albumin 3.6, Globulin 3.5, Albumin/Globulin Ratio 1.0, Carcinoembryonic Antigen 3.3H Current Medications Medications (Trade) Dose Ordered Sig/Mateo Route PRN Reason Start Time Stop Time Status Last Admin Dose Admin Acetaminophen (Tylenol) 650 mg Q4H PRN ORAL fever 02/09/17 23:45 03/11/17 23:44 Al Hydroxide/Mg Hydroxide (Mylanta II) 30 ml Q6H PRN ORAL dyspepsia 02/10/17 01:45 03/12/17 01:44 Albuterol/ Ipratropium (DuoNeb 0.5-3(2.5)mg/3ml) 3 ml Q4H PRN HHN Shortness of Breath 02/09/17 23:45 02/14/17 23:44 Amlodipine Besylate (Norvasc) 5 mg DAILY ORAL 02/10/17 09:00 03/12/17 08:59 02/10/17 09:07 Clonidine HCl (Catapres) 0.1 mg Q4H PRN ORAL sbp more than 160 02/09/17 23:45 03/11/17 23:44 Dextrose (Dextrose 50%) STAT PRN IV Hypoglycemia 02/10/17 11:45 03/12/17 11:44 Heparin Sodium (Porcine) (Heparin 5000 units/ml) 5,000 units EVERY 12 HOURS SUBQ 02/10/17 09:00 03/12/17 08:59 Insulin Aspart (NovoLOG) BEFORE MEALS AND HS SUBQ 02/10/17 06:30 03/12/17 06:29 Insulin Aspart (NovoLOG) 4 units NOVOTIAC SUBQ 02/10/17 06:30 03/12/17 06:29 Insulin Detemir (Levemir) 15 units DAILY SUBQ 02/10/17 09:00 03/12/17 08:59 Ketorolac Tromethamine (Toradol 30mg) 30 mg Q6H PRN IV moderate pain 4-6 02/10/17 01:45 02/13/17 07:44 Morphine Sulfate (Morphine Sulfate) 2 mg Q4H PRN IVP severe pain 7-10 02/09/17 23:45 02/16/17 23:44 Nitroglycerin (Ntg) 0.4 mg Q5M X 3 DOSES PRN SL Prn Chest Pain 02/09/17 22:15 03/11/17 22:14 Ondansetron HCl (Zofran) 4 mg Q6H PRN IVP Nausea & Vomiting 02/09/17 23:45 03/11/17 23:44 02/10/17 06:49 Pantoprazole (Protonix) 40 mg DAILY ORAL 02/10/17 11:15 03/12/17 11:14 02/10/17 11:22 Polyethylene Glycol (Miralax) 17 gm HSPRN PRN ORAL Constipation 02/10/17 07:45 03/12/17 07:44 Temazepam (Restoril) 15 mg HSPRN PRN ORAL Insomnia 02/10/17 07:45 02/17/17 07:44 MILA LAINEZ Feb 10, 2017 13:11
--- NOTE | 2017-02-10 13:19 | Immediate Post-Op Evaluation ---
Immediate Post-Op Evalulation Immediate Post-Op Evalulation Procedure: EGD Date of Evaluation: Feb 10, 2017 Time of Evaluation: 13:19 IV Fluids: 100 Blood Products: 0 Estimated Blood Loss: 0 Urinary Output: 0 Blood Pressure Systolic: 156 Blood Pressure Diastolic: 108 Pulse Rate: 96 Respiratory Rate: 19 O2 Sat by Pulse Oximetry: 99 Temperature (Fahrenheit): 97 Pain Score (1-10): 0 DARRIUS DE PAZ M.D. Feb 10, 2017 13:19
--- NOTE | 2017-02-10 13:20 | 48 Hour Post Anesthesia Eval ---
Post Anesthesia Evaluation Procedure: EGD Date of Evaluation: Feb 10, 2017 Time of Evaluation: 08:00 Blood Pressure Systolic: 112 0: 80 Pulse Rate: 75 Respiratory Rate: 18 Temperature (Fahrenheit): 97.2 O2 Sat by Pulse Oximetry: 100 Airway: patent Nausea: No Vomiting: No Pain Intensity: 0 Hydration Status: adequate Cardiopulmonary Status: at baseline Mental Status/LOC: patient returned to baseline Post-Anesthesia Complications: 0 Follow-up care needed: N/A - further care as per primary team DARRIUS DE PAZ M.D. Feb 10, 2017 13:20
--- NOTE | 2017-02-10 14:21 | General Progress Note ---
Assessment/Plan Problem List: (1) Abnormal white blood cell (WBC) count ICD Codes: D72.9 - Disorder of white blood cells, unspecified SNOMED: 903716580 (2) Intractable nausea and vomiting ICD Codes: R11.2 - Nausea with vomiting, unspecified SNOMED: 847332602, 057523721 (3) Diabetes ICD Codes: E11.9 - Type 2 diabetes mellitus without complications SNOMED: 53292372 (4) Hyperglycemia ICD Codes: R73.9 - Hyperglycemia, unspecified SNOMED: 53187403 (5) Psychiatric disorder ICD Codes: F99 - Mental disorder, not otherwise specified SNOMED: 69891797, 748796240 (6) Gastroparesis due to DM ICD Codes: E11.43 - Type 2 diabetes mellitus with diabetic autonomic (poly) neuropathy; K31.84 - Gastroparesis SNOMED: 20443324, 538801004 (7) esophageal wall thickening (8) ARF (acute renal failure) ICD Codes: N17.9 - Acute kidney failure, unspecified SNOMED: 10299714 (9) HTN (hypertension) ICD Codes: I10 - Essential (primary) hypertension SNOMED: 38379406 Subjective Constitutional: Reports: weakness Allergies: Coded Allergies: No Known Allergies (Verified , NONE, 10/30/05) All Systems: reviewed and negative except above Subjective calm awake in bed Objective Last 24 Hour Vital Signs Date Time Temp Pulse Resp B/P Pulse Ox O2 Delivery O2 Flow Rate FiO2 02/10/17 13:52 160/92 02/10/17 13:39 97.3 100 20 160/92 100 Nasal Cannula 3.0 02/10/17 13:24 99 16 155/98 100 Nasal Cannula 3.0 02/10/17 13:19 100 14 170/100 100 Simple Mask 6.0 02/10/17 13:19 96 19 99 02/10/17 13:14 97.0 101 18 163/100 99 Simple Mask 6.0 02/10/17 12:00 96.9 84 18 152/92 92 Room Air 02/10/17 12:00 104 02/10/17 09:07 95 148/96 02/10/17 08:00 96.9 95 16 148/96 95 Room Air 02/10/17 08:00 94 02/10/17 04:00 87 02/10/17 00:00 82 02/09/17 20:00 90 02/09/17 20:00 97.5 92 18 153/110 100 Room Air 02/09/17 16:39 97.5 92 18 154/93 100 Room Air Intake and Output 02/09/17 02/10/17 19:00 07:00 Intake Total 1190 ml 570 ml Balance 1190 ml 570 ml Intake Oral 690 ml 120 ml IV Total 500 ml 450 ml # Voids 3 2 Laboratory Tests 02/10/17 07:28: White Blood Count 11.7H, Red Blood Count 4.05L, Hemoglobin 12.0, Hematocrit 37.1 , Mean Corpuscular Volume 92, Mean Corpuscular Hemoglobin 29.7, Mean Corpuscular Hemoglobin Concent 32.4, Red Cell Distribution Width 14.3, Platelet Count 210, Mean Platelet Volume 8.6, Neutrophils (%) (Auto) 67.6, Lymphocytes (% ) (Auto) 25.5, Monocytes (%) (Auto) 4.9, Eosinophils (%) (Auto) 1.3, Basophils ( %) (Auto) 0.7, Sodium Level 140, Potassium Level 4.0, Chloride Level 94L, Carbon Dioxide Level 31H, Anion Gap 15, Blood Urea Nitrogen 9, Creatinine 1.0H, Estimat Glomerular Filtration Rate > 60, Glucose Level 130#H, Calcium Level 9.5 , Magnesium Level 1.5L, Total Bilirubin < 0.2, Aspartate Amino Transf (AST/SGOT ) 18, Alanine Aminotransferase (ALT/SGPT) 14, Alkaline Phosphatase 153H, Total Protein 7.1, Albumin 3.6, Globulin 3.5, Albumin/Globulin Ratio 1.0, Carcinoembryonic Antigen 3.3H Height (Feet): 5 Height (Inches): 5.00 Weight (Pounds): 120 General Appearance: lethargic EENT: normal ENT inspection Neck: normal alignment Cardiovascular: normal peripheral pulses, normal rate, regular rhythm Respiratory/Chest: chest wall non-tender, lungs clear, normal breath sounds Abdomen: normal bowel sounds, non tender, soft Extremities: normal inspection Edema: no edema noted Arm (L), no edema noted Arm (R), no edema noted Leg (L), no edema noted Leg (R), no edema noted Pedal (L), no edema noted Pedal (R), no edema noted Generalized Neurologic: responsive, motor weakness ENOCH GONZALEZ Feb 10, 2017 14:21
[2017-02-10] MEDS ORDERED: Nitroglycerin Subl 0.4mg tab (Bottle Of 25) SL PRN (17:00)
--- NOTE | 2017-02-10 17:20 | Cardiology Progress Note ---
Assessment/Plan Assessment/Plan The patient is seen and examined, full consult note is dictated. Objective Last 24 Hour Vital Signs Date Time Temp Pulse Resp B/P Pulse Ox O2 Delivery O2 Flow Rate FiO2 02/10/17 13:52 160/92 02/10/17 13:39 97.3 100 20 160/92 100 Nasal Cannula 3.0 02/10/17 13:24 99 16 155/98 100 Nasal Cannula 3.0 02/10/17 13:19 100 14 170/100 100 Simple Mask 6.0 02/10/17 13:19 96 19 99 02/10/17 13:14 97.0 101 18 163/100 99 Simple Mask 6.0 02/10/17 12:00 96.9 84 18 152/92 92 Room Air 02/10/17 12:00 104 02/10/17 09:07 95 148/96 02/10/17 08:00 96.9 95 16 148/96 95 Room Air 02/10/17 08:00 94 02/10/17 04:00 87 02/10/17 00:00 82 02/09/17 20:00 90 02/09/17 20:00 97.5 92 18 153/110 100 Room Air Intake and Output 02/09/17 02/10/17 19:00 07:00 Intake Total 1190 ml 570 ml Balance 1190 ml 570 ml Intake Oral 690 ml 120 ml IV Total 500 ml 450 ml # Voids 3 2 Laboratory Tests Test 02/10/17 07:28 White Blood Count 11.7 K/UL (4.8-10.8) H Red Blood Count 4.05 M/UL (4.20-5.40) L Hemoglobin 12.0 G/DL (12.0-16.0) Hematocrit 37.1 % (37.0-47.0) Mean Corpuscular Volume 92 FL (80-99) Mean Corpuscular Hemoglobin 29.7 PG (27.0-31.0) Mean Corpuscular Hemoglobin Concent 32.4 G/DL (32.0-36.0) Red Cell Distribution Width 14.3 % (11.6-14.8) Platelet Count 210 K/UL (150-450) Mean Platelet Volume 8.6 FL (6.5-10.1) Neutrophils (%) (Auto) 67.6 % (45.0-75.0) Lymphocytes (%) (Auto) 25.5 % (20.0-45.0) Monocytes (%) (Auto) 4.9 % (1.0-10.0) Eosinophils (%) (Auto) 1.3 % (0.0-3.0) Basophils (%) (Auto) 0.7 % (0.0-2.0) Sodium Level 140 mEQ/L (135-145) Potassium Level 4.0 mEQ/L (3.4-4.9) Chloride Level 94 mEQ/L (98-107) L Carbon Dioxide Level 31 mEQ/L (20-30) H Anion Gap 15 (5-15) Blood Urea Nitrogen 9 mg/dL (7-23) Creatinine 1.0 mg/dL (0.5-0.9) H Estimat Glomerular Filtration Rate > 60 mL/min (>60) Glucose Level 130 mg/dL (74-106) #H Calcium Level 9.5 mg/dL (8.6-10.2) Magnesium Level 1.5 mg/dL (1.7-2.5) L Total Bilirubin < 0.2 mg/dL (0.0-1.2) Aspartate Amino Transf (AST/SGOT) 18 U/L (5-40) Alanine Aminotransferase (ALT/SGPT) 14 U/L (3-33) Alkaline Phosphatase 153 U/L (35-104) H Total Protein 7.1 g/dL (6.6-8.7) Albumin 3.6 g/dL (3.5-5.2) Globulin 3.5 g/dL Albumin/Globulin Ratio 1.0 (1.0-2.7) Carcinoembryonic Antigen 3.3 ng/mL H Microbiology Date/Time Source Procedure Growth Status 02/08/17 05:30 Blood Blood Culture - Preliminary NO GROWTH AFTER 24 HOURS Resulted 02/08/17 05:15 Blood Blood Culture - Preliminary NO GROWTH AFTER 24 HOURS Resulted 02/08/17 09:55 Nasal Nares MRSA Culture - Final NO METHICILLIN RESISTANT STAPH AUREUS... Complete MARCIA WALKER Feb 10, 2017 17:20
[2017-02-10] MEDS ORDERED: Sucralfate 1gm tab ORAL SCH (18:00)
[2017-02-10] MEDS: Sucralfate 1gm tab ORAL SCH ×2 (18:43→21:57)
[2017-02-10] MEDS ORDERED: DuoNeb 0.5-3(2.5)mg/3ml neb HHN PRN (19:45)
--- NOTE | 2017-02-10 21:38 | Procedure Note ---
SURGEON: Jarek Escalante M.D. PROCEDURE: Upper endoscopy with biopsy. ANESTHESIOLOGIST: Dr. Holden. INSTRUMENT: Olympus adult flexible upper endoscope. INDICATION: Esophagitis lung CT and esophageal wall thickening. REASON FOR PROCEDURE: The procedure, risks, benefits, and possible consequences, including hemorrhage, aspiration, perforation and infection, and alternative treatments, were explained to the patient/legal guardian by Dr. Jarek Vickers and the patient/legal guardian understood and accepted these risks. DESCRIPTION OF PROCEDURE: After informed consent was obtained and the patient was adequately sedated, Olympus upper endoscope was advanced from mouth into the second portion of the duodenum and retroflexion was performed of the stomach. The patient has severe distal esophagitis with some white plaquing on suspicious for esophagitis and on top of the Melany esophagitis. Biopsy from the distal esophagus was obtained. In the stomach, there was diffuse gastritis. Random biopsy from antrum was obtained to rule out H. pylori infection. The patient tolerated the procedure very well without any complication. SUMMARY FINDINGS: 1. Severe distal esophagitis with some white discharge only suspicious for candidal status post biopsy. 2. Gastritis, status post biopsy. RECOMMENDATIONS: Follow biopsy results and treat accordingly. Meanwhile, the patient to be on the PPI reflux measures and treat for nausea. I want to thank Dr. Brandon Arana, for this kind referral. Jarek Vickers M.D. DR: FLO JOB#: [id number] CC: Brandon Arana D.O.
[2017-02-10] MEDS: Morphine Sulfate 2mg/ml Inj IVP PRN (22:42)
[2017-02-11] VITALS: BP 116/91
[2017-02-11] MEDS: Mylanta II UD 30ml ORAL PRN ×2 (06:04→19:41)
[2017-02-11] MEDS: NovoLOG Insulin Flexpen SUBQ SCH ×7 (06:05→21:00)
[2017-02-11 07:02] LABS: INR 1.1 (0.9-1.1); PROTHROMBIN TIME 10.9 SEC (9.30-11.50)
--- NOTE | 2017-02-11 07:24 | General Progress Note ---
Assessment/Plan Problem List: (1) Diabetes ICD Codes: E11.9 - Type 2 diabetes mellitus without complications SNOMED: 58357411 (2) Gastroparesis due to DM ICD Codes: E11.43 - Type 2 diabetes mellitus with diabetic autonomic (poly) neuropathy; K31.84 - Gastroparesis SNOMED: 15271791, 766900322 (3) Psychiatric disorder ICD Codes: F99 - Mental disorder, not otherwise specified SNOMED: 77837043, 827063499 (4) Hyperglycemia ICD Codes: R73.9 - Hyperglycemia, unspecified SNOMED: 20550182 (5) HTN (hypertension) ICD Codes: I10 - Essential (primary) hypertension SNOMED: 04460903 Assessment/Plan continue Levemir 15 units daily + Novolog 4 units ac tid + SSI Subjective ROS Limited/Unobtainable: Yes Allergies: Coded Allergies: No Known Allergies (Verified , NONE, 10/30/05) Subjective not answering questions Objective Last 24 Hour Vital Signs Date Time Temp Pulse Resp B/P Pulse Ox O2 Delivery O2 Flow Rate FiO2 02/11/17 00:00 98.2 80 20 116/91 98 Room Air 02/10/17 19:20 101 18 Room Air 02/10/17 19:00 97.8 74 20 127/88 97 Room Air 02/10/17 13:52 160/92 02/10/17 13:39 97.3 100 20 160/92 100 Nasal Cannula 3.0 02/10/17 13:24 99 16 155/98 100 Nasal Cannula 3.0 02/10/17 13:19 100 14 170/100 100 Simple Mask 6.0 02/10/17 13:19 96 19 99 02/10/17 13:14 97.0 101 18 163/100 99 Simple Mask 6.0 02/10/17 12:00 96.9 84 18 152/92 92 Room Air 02/10/17 12:00 104 02/10/17 09:07 95 148/96 02/10/17 08:00 96.9 95 16 148/96 95 Room Air 02/10/17 08:00 94 Intake and Output 02/10/17 02/11/17 19:00 07:00 Intake Total 400 ml 600 ml Balance 400 ml 600 ml Intake Oral 600 ml IV Total 400 ml # Voids 5 Laboratory Tests 02/10/17 07:28: White Blood Count 11.7H, Red Blood Count 4.05L, Hemoglobin 12.0, Hematocrit 37.1 , Mean Corpuscular Volume 92, Mean Corpuscular Hemoglobin 29.7, Mean Corpuscular Hemoglobin Concent 32.4, Red Cell Distribution Width 14.3, Platelet Count 210, Mean Platelet Volume 8.6, Neutrophils (%) (Auto) 67.6, Lymphocytes (% ) (Auto) 25.5, Monocytes (%) (Auto) 4.9, Eosinophils (%) (Auto) 1.3, Basophils ( %) (Auto) 0.7, Sodium Level 140, Potassium Level 4.0, Chloride Level 94L, Carbon Dioxide Level 31H, Anion Gap 15, Blood Urea Nitrogen 9, Creatinine 1.0H, Estimat Glomerular Filtration Rate > 60, Glucose Level 130#H, Calcium Level 9.5 , Magnesium Level 1.5L, Total Bilirubin < 0.2, Aspartate Amino Transf (AST/SGOT ) 18, Alanine Aminotransferase (ALT/SGPT) 14, Alkaline Phosphatase 153H, Total Protein 7.1, Albumin 3.6, Globulin 3.5, Albumin/Globulin Ratio 1.0, Carcinoembryonic Antigen 3.3H 02/10/17 22:10: Glucose Level 501#*H 02/11/17 05:30: White Blood Count [Pending], Red Blood Count [Pending], Hemoglobin [Pending], Hematocrit [Pending], Mean Corpuscular Volume [Pending], Mean Corpuscular Hemoglobin [Pending], Mean Corpuscular Hemoglobin Concent [Pending], Red Cell Distribution Width [Pending], Platelet Count [Pending], Mean Platelet Volume [ Pending], Neutrophils (%) (Auto) [Pending], Lymphocytes (%) (Auto) [Pending], Monocytes (%) (Auto) [Pending], Eosinophils (%) (Auto) [Pending], Basophils (%) (Auto) [Pending], Sodium Level [Pending], Potassium Level [Pending], Chloride Level [Pending], Carbon Dioxide Level [Pending], Blood Urea Nitrogen [Pending], Creatinine [Pending], Estimat Glomerular Filtration Rate [Pending], Glucose Level [Pending], Calcium Level [Pending], Magnesium Level [Pending], Total Bilirubin [Pending], Aspartate Amino Transf (AST/SGOT) [Pending], Alanine Aminotransferase (ALT/SGPT) [Pending], Alkaline Phosphatase [Pending], Total Protein [Pending], Albumin [Pending], Globulin [Pending], Prothrombin Time 10.9 , Prothromb Time International Ratio 1.1, Activated Partial Thromboplast Time 25 , Phosphorus Level [Pending] Height (Feet): 5 Height (Inches): 5.00 Weight (Pounds): 120 General Appearance: no apparent distress Neck: normal alignment Cardiovascular: regular rhythm Respiratory/Chest: lungs clear Abdomen: normal bowel sounds Objective Current Medications Medications (Trade) Dose Ordered Sig/Mateo Route PRN Reason Start Time Stop Time Status Last Admin Dose Admin Acetaminophen (Tylenol) 650 mg Q4H PRN ORAL fever 02/10/17 19:45 03/12/17 19:44 Al Hydroxide/Mg Hydroxide (Mylanta II) 30 ml Q6H PRN ORAL dyspepsia 02/10/17 19:45 03/12/17 19:44 02/11/17 06:04 Albuterol/ Ipratropium (DuoNeb 0.5-3(2.5)mg/3ml) 3 ml Q4H PRN HHN Shortness of Breath 02/10/17 19:45 02/15/17 19:44 Amlodipine Besylate (Norvasc) 5 mg DAILY ORAL 02/11/17 09:00 03/13/17 08:59 Clonidine HCl (Catapres) 0.1 mg Q4H PRN ORAL sbp more than 160 02/10/17 19:45 03/12/17 19:44 Dextrose (Dextrose 50%) STAT PRN IV Hypoglycemia 02/11/17 11:45 03/13/17 11:44 Insulin Aspart (NovoLOG) BEFORE MEALS AND HS SUBQ 02/10/17 21:00 03/12/17 20:59 02/11/17 06:06 Insulin Aspart (NovoLOG) 4 units NOVOTIAC SUBQ 02/11/17 06:30 03/13/17 06:29 02/11/17 06:05 Insulin Detemir (Levemir) 15 units DAILY SUBQ 02/11/17 09:00 03/13/17 08:59 Morphine Sulfate (Morphine Sulfate) 2 mg Q4H PRN IVP severe pain 7-10 02/10/17 19:45 02/17/17 19:44 02/10/17 22:42 Nitroglycerin (Ntg) 0.4 mg Q5M X 3 DOSES PRN SL Prn Chest Pain 02/10/17 17:00 03/12/17 16:59 Ondansetron HCl (Zofran) 4 mg Q6H PRN IVP Nausea & Vomiting 02/10/17 17:45 03/12/17 17:44 Pantoprazole (Protonix) 40 mg DAILY ORAL 02/11/17 09:00 03/13/17 08:59 Polyethylene Glycol (Miralax) 17 gm HSPRN PRN ORAL Constipation 02/11/17 07:45 03/13/17 07:44 Sucralfate (Carafate) 1 gm FOUR TIMES A DAY ORAL 02/10/17 18:00 03/12/17 17:59 02/10/17 21:57 Temazepam (Restoril) 15 mg HSPRN PRN ORAL Insomnia 02/11/17 00:22 02/18/17 00:21 02/11/17 00:48 Item Value Date Time Bedside Blood Glucose 248 mg/dl H 02/11/17 0638 Bedside Blood Glucose 486 mg/dl H 02/10/17 2158 Bedside Blood Glucose 312 mg/dl H 02/10/17 1600 Bedside Blood Glucose 217 mg/dl H 02/10/17 1150 Bedside Blood Glucose 117 mg/dl 02/10/17 0900 Bedside Blood Glucose 117 mg/dl 02/10/17 0630 FRANCES BRADLEY 21, 2017 07:23
[2017-02-11 07:44] LABS: BASOPHILS % (AUTO) 1.1 % (0.0-2.0); EOSINOPHILS % (AUTO) 1.7 % (0.0-3.0); LYMPHOCYTES % (AUTO) 37.4 % (20.0-45.0); MEAN CORPUSCULAR HEMOGLOBIN 29.6 PG (27.0-31.0); MEAN CORPUSCULAR HGB CONC 32.1 G/DL (32.0-36.0); MEAN CORPUSCULAR VOLUME 92 FL (80-99); MEAN PLATELET VOLUME 10.4 FL (6.5-10.1); MONOCYTES % (AUTO) 8.2 % (1.0-10.0); NEUTROPHILS % (AUTO) 51.6 % (45.0-75.0); PLATELET COUNT 223 K/UL (150-450); RED BLOOD COUNT 3.97 M/UL (4.20-5.40); RED CELL DISTRIBUTION WIDTH 14.2 % (11.6-14.8); WHITE BLOOD COUNT 13.6 K/UL (4.8-10.8)
[2017-02-11] MEDS ORDERED: Miralax 17gm pkt ORAL PRN (07:45)
[2017-02-11 08:00] VITALS: BP 112/80
[2017-02-11] MEDS: Sucralfate 1gm tab ORAL SCH ×4 (08:58→21:07)
[2017-02-11] MEDS ORDERED: Levemir Flexpen SUBQ SCH (09:00)
--- NOTE | 2017-02-11 13:04 | General Progress Note ---
Assessment/Plan Problem List: (1) esophageal wall thickening (2) Psychiatric disorder ICD Codes: F99 - Mental disorder, not otherwise specified SNOMED: 15601240, 720317574 (3) Gastroparesis due to DM ICD Codes: E11.43 - Type 2 diabetes mellitus with diabetic autonomic (poly) neuropathy; K31.84 - Gastroparesis SNOMED: 28102080, 368893538 (4) Hyperglycemia ICD Codes: R73.9 - Hyperglycemia, unspecified SNOMED: 68585011 (5) Diabetes ICD Codes: E11.9 - Type 2 diabetes mellitus without complications SNOMED: 35482680 (6) Anemia ICD Codes: D64.9 - Anemia, unspecified SNOMED: 722399478 Assessment/Plan s/p EGD severe esophagitis ppi reflux measures fu biopsy results Subjective ROS Limited/Unobtainable: Yes Allergies: Coded Allergies: No Known Allergies (Verified , NONE, 10/30/05) Subjective c/o nausea Objective Last 24 Hour Vital Signs Date Time Temp Pulse Resp B/P Pulse Ox O2 Delivery O2 Flow Rate FiO2 02/11/17 08:58 81 112/80 02/11/17 08:00 97.2 81 19 112/80 100 Room Air 02/11/17 07:45 75 18 Room Air 02/11/17 00:00 98.2 80 20 116/91 98 Room Air 02/10/17 19:20 101 18 Room Air 02/10/17 19:00 97.8 74 20 127/88 97 Room Air 02/10/17 13:52 160/92 02/10/17 13:39 97.3 100 20 160/92 100 Nasal Cannula 3.0 02/10/17 13:24 99 16 155/98 100 Nasal Cannula 3.0 02/10/17 13:19 100 14 170/100 100 Simple Mask 6.0 02/10/17 13:19 96 19 99 02/10/17 13:14 97.0 101 18 163/100 99 Simple Mask 6.0 Intake and Output 02/10/17 02/11/17 19:00 07:00 Intake Total 400 ml 600 ml Balance 400 ml 600 ml Intake Oral 600 ml IV Total 400 ml # Voids 5 Laboratory Tests 02/10/17 22:10: Glucose Level 501#*H 02/11/17 05:30: White Blood Count 13.6H, Red Blood Count 3.97L, Hemoglobin 11.8L, Hematocrit 36.6L, Mean Corpuscular Volume 92, Mean Corpuscular Hemoglobin 29.6, Mean Corpuscular Hemoglobin Concent 32.1, Red Cell Distribution Width 14.2, Platelet Count 223, Mean Platelet Volume 10.4H, Neutrophils (%) (Auto) 51.6, Lymphocytes (%) (Auto) 37.4, Monocytes (%) (Auto) 8.2, Eosinophils (%) (Auto) 1.7, Basophils (%) (Auto) 1.1, Prothrombin Time 10.9, Prothromb Time International Ratio 1.1, Activated Partial Thromboplast Time 25 Height (Feet): 5 Height (Inches): 5.00 Weight (Pounds): 120 General Appearance: alert EENT: normal ENT inspection Neck: supple Cardiovascular: normal rate Respiratory/Chest: lungs clear Abdomen: normal bowel sounds, non tender, soft Extremities: non-tender QUAN BAZAN Feb 11, 2017 13:04
--- NOTE | 2017-02-11 13:16 | General Progress Note ---
Assessment/Plan Problem List: (1) Abnormal white blood cell (WBC) count ICD Codes: D72.9 - Disorder of white blood cells, unspecified SNOMED: 976423742 (2) Intractable nausea and vomiting ICD Codes: R11.2 - Nausea with vomiting, unspecified SNOMED: 566603534, 762864062 (3) Diabetes ICD Codes: E11.9 - Type 2 diabetes mellitus without complications SNOMED: 89267055 (4) Hyperglycemia ICD Codes: R73.9 - Hyperglycemia, unspecified SNOMED: 16494733 (5) Psychiatric disorder ICD Codes: F99 - Mental disorder, not otherwise specified SNOMED: 31758252, 316174255 (6) Gastroparesis due to DM ICD Codes: E11.43 - Type 2 diabetes mellitus with diabetic autonomic (poly) neuropathy; K31.84 - Gastroparesis SNOMED: 11252135, 465905637 (7) esophageal wall thickening (8) ARF (acute renal failure) ICD Codes: N17.9 - Acute kidney failure, unspecified SNOMED: 71995796 (9) HTN (hypertension) ICD Codes: I10 - Essential (primary) hypertension SNOMED: 24801719 Status: stable, progressing, tolerating diet Assessment/Plan ot pt diet bp bs pain control cbc bmp am Subjective Constitutional: Reports: weakness Allergies: Coded Allergies: No Known Allergies (Verified , NONE, 10/30/05) All Systems: reviewed and negative except above Subjective calm awake in bed Objective Last 24 Hour Vital Signs Date Time Temp Pulse Resp B/P Pulse Ox O2 Delivery O2 Flow Rate FiO2 02/11/17 08:58 81 112/80 02/11/17 08:00 97.2 81 19 112/80 100 Room Air 02/11/17 07:45 75 18 Room Air 02/11/17 00:00 98.2 80 20 116/91 98 Room Air 02/10/17 19:20 101 18 Room Air 02/10/17 19:00 97.8 74 20 127/88 97 Room Air 02/10/17 13:52 160/92 02/10/17 13:39 97.3 100 20 160/92 100 Nasal Cannula 3.0 02/10/17 13:24 99 16 155/98 100 Nasal Cannula 3.0 02/10/17 13:19 100 14 170/100 100 Simple Mask 6.0 02/10/17 13:19 96 19 99 Intake and Output 02/10/17 02/11/17 19:00 07:00 Intake Total 400 ml 600 ml Balance 400 ml 600 ml Intake Oral 600 ml IV Total 400 ml # Voids 5 Laboratory Tests 02/10/17 22:10: Glucose Level 501#*H 02/11/17 05:30: White Blood Count 13.6H, Red Blood Count 3.97L, Hemoglobin 11.8L, Hematocrit 36.6L, Mean Corpuscular Volume 92, Mean Corpuscular Hemoglobin 29.6, Mean Corpuscular Hemoglobin Concent 32.1, Red Cell Distribution Width 14.2, Platelet Count 223, Mean Platelet Volume 10.4H, Neutrophils (%) (Auto) 51.6, Lymphocytes (%) (Auto) 37.4, Monocytes (%) (Auto) 8.2, Eosinophils (%) (Auto) 1.7, Basophils (%) (Auto) 1.1, Prothrombin Time 10.9, Prothromb Time International Ratio 1.1, Activated Partial Thromboplast Time 25 Height (Feet): 5 Height (Inches): 5.00 Weight (Pounds): 120 General Appearance: lethargic EENT: normal ENT inspection Neck: normal alignment Cardiovascular: normal peripheral pulses, normal rate, regular rhythm Respiratory/Chest: chest wall non-tender, lungs clear, normal breath sounds Abdomen: normal bowel sounds, non tender, soft Extremities: normal inspection Edema: no edema noted Arm (L), no edema noted Arm (R), no edema noted Leg (L), no edema noted Leg (R), no edema noted Pedal (L), no edema noted Pedal (R), no edema noted Generalized Neurologic: responsive, motor weakness Skin: normal pigmentation, warm/dry ENOCH GONZALEZ Feb 11, 2017 13:16
[2017-02-11] MEDS: Morphine Sulfate 2mg/ml Inj IVP PRN ×2 (14:46→19:42)
[2017-02-11 16:00] VITALS: BP 110/78
--- NOTE | 2017-02-11 17:15 | Pulmonology Progress Note ---
Assessment/Plan Problems: (1) Hyperglycemia (2) Intractable nausea and vomiting (3) Gastroparesis due to DM (4) Diabetes (5) Anemia Assessment/Plan IVF insulin coverage sliding scale f/u h/h transfuse if hem < 8 Subjective ROS Limited/Unobtainable: No Allergies: Coded Allergies: No Known Allergies (Verified , NONE, 10/30/05) Objective Last 24 Hour Vital Signs Date Time Temp Pulse Resp B/P Pulse Ox O2 Delivery O2 Flow Rate FiO2 02/11/17 16:00 97.2 67 16 110/78 100 02/11/17 08:58 81 112/80 02/11/17 08:00 97.2 81 19 112/80 100 Room Air 02/11/17 07:45 75 18 Room Air 02/11/17 00:00 98.2 80 20 116/91 98 Room Air 02/10/17 19:20 101 18 Room Air 02/10/17 19:00 97.8 74 20 127/88 97 Room Air Intake and Output 02/10/17 02/11/17 19:00 07:00 Intake Total 400 ml 600 ml Balance 400 ml 600 ml Intake Oral 600 ml IV Total 400 ml # Voids 5 Objective General Appearance: WD/WN, Lines, tubes and drains: peripheral, central line HEENT: normocephalic Neck: non-tender Respiratory/Chest: chest wall non-tender, lungs clear Cardiovascular/Chest: normal peripheral pulses, normal rate Abdomen: normal bowel sounds, non tender Genitourinary/Rectal: normal genital exam Extremities: normal range of motion Neurologic: flatbed stitcher II-XII grossly normal Laboratory Tests 02/10/17 22:10: Glucose Level 501#*H 02/11/17 05:30: White Blood Count 13.6H, Red Blood Count 3.97L, Hemoglobin 11.8L, Hematocrit 36.6L, Mean Corpuscular Volume 92, Mean Corpuscular Hemoglobin 29.6, Mean Corpuscular Hemoglobin Concent 32.1, Red Cell Distribution Width 14.2, Platelet Count 223, Mean Platelet Volume 10.4H, Neutrophils (%) (Auto) 51.6, Lymphocytes (%) (Auto) 37.4, Monocytes (%) (Auto) 8.2, Eosinophils (%) (Auto) 1.7, Basophils (%) (Auto) 1.1, Prothrombin Time 10.9, Prothromb Time International Ratio 1.1, Activated Partial Thromboplast Time 25 Current Medications Medications (Trade) Dose Ordered Sig/Mateo Route PRN Reason Start Time Stop Time Status Last Admin Dose Admin Acetaminophen (Tylenol) 650 mg Q4H PRN ORAL fever 02/10/17 19:45 03/12/17 19:44 Al Hydroxide/Mg Hydroxide (Mylanta II) 30 ml Q6H PRN ORAL dyspepsia 02/10/17 19:45 03/12/17 19:44 02/11/17 06:04 Albuterol/ Ipratropium (DuoNeb 0.5-3(2.5)mg/3ml) 3 ml Q4H PRN HHN Shortness of Breath 02/10/17 19:45 02/15/17 19:44 Amlodipine Besylate (Norvasc) 5 mg DAILY ORAL 02/11/17 09:00 03/13/17 08:59 02/11/17 08:58 Clonidine HCl (Catapres) 0.1 mg Q4H PRN ORAL sbp more than 160 02/10/17 19:45 03/12/17 19:44 Dextrose (Dextrose 50%) STAT PRN IV Hypoglycemia 02/11/17 11:45 03/13/17 11:44 02/11/17 15:32 Insulin Aspart (NovoLOG) BEFORE MEALS AND HS SUBQ 02/10/17 21:00 03/12/17 20:59 02/11/17 06:06 Insulin Aspart (NovoLOG) 4 units NOVOTIAC SUBQ 02/11/17 06:30 03/13/17 06:29 02/11/17 06:05 Insulin Detemir (Levemir) 15 units DAILY SUBQ 02/11/17 09:00 03/13/17 08:59 02/11/17 08:59 Morphine Sulfate (Morphine Sulfate) 2 mg Q4H PRN IVP severe pain 7-10 02/10/17 19:45 02/17/17 19:44 02/11/17 14:46 Nitroglycerin (Ntg) 0.4 mg Q5M X 3 DOSES PRN SL Prn Chest Pain 02/10/17 17:00 03/12/17 16:59 Ondansetron HCl (Zofran) 4 mg Q6H PRN IVP Nausea & Vomiting 02/10/17 17:45 03/12/17 17:44 Pantoprazole (Protonix) 40 mg DAILY ORAL 02/11/17 09:00 03/13/17 08:59 02/11/17 08:57 Polyethylene Glycol (Miralax) 17 gm HSPRN PRN ORAL Constipation 02/11/17 07:45 03/13/17 07:44 Sucralfate (Carafate) 1 gm FOUR TIMES A DAY ORAL 02/10/17 18:00 03/12/17 17:59 02/11/17 14:41 Temazepam (Restoril) 15 mg HSPRN PRN ORAL Insomnia 02/11/17 00:22 02/18/17 00:21 02/11/17 00:48 MILA LAINEZ Feb 11, 2017 17:15
[2017-02-11 20:00] VITALS: BP 106/71
[2017-02-12] VITALS: BP 98/68
[2017-02-12] MEDS: NovoLOG Insulin Flexpen SUBQ SCH ×7 (06:30→21:00)
--- NOTE | 2017-02-12 07:34 | General Progress Note ---
Assessment/Plan Problem List: (1) Diabetes ICD Codes: E11.9 - Type 2 diabetes mellitus without complications SNOMED: 26468909 (2) Gastroparesis due to DM ICD Codes: E11.43 - Type 2 diabetes mellitus with diabetic autonomic (poly) neuropathy; K31.84 - Gastroparesis SNOMED: 72291092, 582766137 (3) Psychiatric disorder ICD Codes: F99 - Mental disorder, not otherwise specified SNOMED: 61006154, 134743951 (4) Hyperglycemia ICD Codes: R73.9 - Hyperglycemia, unspecified SNOMED: 90774666 (5) HTN (hypertension) ICD Codes: I10 - Essential (primary) hypertension SNOMED: 44710479 Assessment/Plan reduce Levemir 15 to 12 units daily reduce Novolog 4 to units ac tid + SSI Subjective ROS Limited/Unobtainable: Yes Allergies: Coded Allergies: No Known Allergies (Verified , NONE, 10/30/05) Subjective non cooperative - not communicating Objective Last 24 Hour Vital Signs Date Time Temp Pulse Resp B/P Pulse Ox O2 Delivery O2 Flow Rate FiO2 02/12/17 00:00 97.7 78 21 98/68 95 Room Air 02/11/17 20:12 97.0 02/11/17 20:00 97.0 74 17 106/71 100 Room Air 02/11/17 19:34 83 18 Room Air 02/11/17 16:00 97.2 67 16 110/78 100 02/11/17 08:58 81 112/80 02/11/17 08:00 97.2 81 19 112/80 100 Room Air 02/11/17 07:45 75 18 Room Air Intake and Output 02/11/17 02/12/17 19:00 07:00 Intake Total 560 ml 360 ml Balance 560 ml 360 ml Intake Oral 560 ml 360 ml # Voids 3 5 Height (Feet): 5 Height (Inches): 5.00 Weight (Pounds): 120 General Appearance: no apparent distress Neck: normal alignment Cardiovascular: normal peripheral pulses Respiratory/Chest: lungs clear Abdomen: normal bowel sounds Objective Current Medications Medications (Trade) Dose Ordered Sig/Mateo Route PRN Reason Start Time Stop Time Status Last Admin Dose Admin Acetaminophen (Tylenol) 650 mg Q4H PRN ORAL fever 02/10/17 19:45 03/12/17 19:44 Al Hydroxide/Mg Hydroxide (Mylanta II) 30 ml Q6H PRN ORAL dyspepsia 02/10/17 19:45 03/12/17 19:44 02/11/17 19:41 Albuterol/ Ipratropium (DuoNeb 0.5-3(2.5)mg/3ml) 3 ml Q4H PRN HHN Shortness of Breath 02/10/17 19:45 02/15/17 19:44 Amlodipine Besylate (Norvasc) 5 mg DAILY ORAL 02/11/17 09:00 03/13/17 08:59 02/11/17 08:58 Clonidine HCl (Catapres) 0.1 mg Q4H PRN ORAL sbp more than 160 02/10/17 19:45 03/12/17 19:44 Dextrose (Dextrose 50%) STAT PRN IV Hypoglycemia 02/11/17 11:45 03/13/17 11:44 02/11/17 15:32 Insulin Aspart (NovoLOG) BEFORE MEALS AND HS SUBQ 02/10/17 21:00 03/12/17 20:59 02/11/17 18:18 Insulin Aspart (NovoLOG) 4 units NOVOTIAC SUBQ 02/11/17 06:30 03/13/17 06:29 02/11/17 18:20 Insulin Detemir (Levemir) 15 units DAILY SUBQ 02/11/17 09:00 03/13/17 08:59 02/11/17 08:59 Morphine Sulfate (Morphine Sulfate) 2 mg Q4H PRN IVP severe pain 7-10 02/10/17 19:45 02/17/17 19:44 02/11/17 19:42 Nitroglycerin (Ntg) 0.4 mg Q5M X 3 DOSES PRN SL Prn Chest Pain 02/10/17 17:00 03/12/17 16:59 Ondansetron HCl (Zofran) 4 mg Q6H PRN IVP Nausea & Vomiting 02/10/17 17:45 03/12/17 17:44 Pantoprazole (Protonix) 40 mg DAILY ORAL 02/11/17 09:00 03/13/17 08:59 02/11/17 08:57 Polyethylene Glycol (Miralax) 17 gm HSPRN PRN ORAL Constipation 02/11/17 07:45 03/13/17 07:44 Sucralfate (Carafate) 1 gm FOUR TIMES A DAY ORAL 02/10/17 18:00 03/12/17 17:59 02/11/17 21:07 Temazepam (Restoril) 15 mg HSPRN PRN ORAL Insomnia 02/11/17 00:22 02/18/17 00:21 02/11/17 21:08 Item Value Date Time Bedside Blood Glucose 62 mg/dl L 02/11/172113 Bedside Blood Glucose 114 mg/dl 02/11/17 1820 Bedside Blood Glucose 248 mg/dl H 02/11/17 0859 Bedside Blood Glucose 248 mg/dl H 02/11/17 0638 FRANCES BRADLEY 22, 2017 07:34
[2017-02-12 08:00] VITALS: BP 123/89
[2017-02-12] MEDS: Sucralfate 1gm tab ORAL SCH ×4 (08:08→21:19)
[2017-02-12] MEDS: Levemir Flexpen SUBQ SCH (09:35)
--- NOTE | 2017-02-12 10:19 | General Progress Note ---
Assessment/Plan Problem List: (1) esophageal wall thickening (2) Psychiatric disorder ICD Codes: F99 - Mental disorder, not otherwise specified SNOMED: 62571145, 898256403 (3) Gastroparesis due to DM ICD Codes: E11.43 - Type 2 diabetes mellitus with diabetic autonomic (poly) neuropathy; K31.84 - Gastroparesis SNOMED: 09393728, 779137538 (4) Hyperglycemia ICD Codes: R73.9 - Hyperglycemia, unspecified SNOMED: 22874693 (5) Diabetes ICD Codes: E11.9 - Type 2 diabetes mellitus without complications SNOMED: 99475038 (6) Anemia ICD Codes: D64.9 - Anemia, unspecified SNOMED: 312354267 Assessment/Plan s/p EGD severe esophagitis ppi carafate add zantac reflux measures fu biopsy results Subjective ROS Limited/Unobtainable: Yes Allergies: Coded Allergies: No Known Allergies (Verified , NONE, 10/30/05) Subjective c/o nausea c/o heartburn Objective Last 24 Hour Vital Signs Date Time Temp Pulse Resp B/P Pulse Ox O2 Delivery O2 Flow Rate FiO2 02/12/17 08:08 79 123/89 02/12/17 08:00 97.5 79 19 123/89 100 Room Air 02/12/17 07:40 75 18 100 02/12/17 00:00 97.7 78 21 98/68 95 Room Air 02/11/17 20:12 97.0 02/11/17 20:00 97.0 74 17 106/71 100 Room Air 02/11/17 19:34 83 18 Room Air 02/11/17 16:00 97.2 67 16 110/78 100 Intake and Output 02/11/17 02/12/17 19:00 07:00 Intake Total 560 ml 360 ml Balance 560 ml 360 ml Intake Oral 560 ml 360 ml # Voids 3 5 Height (Feet): 5 Height (Inches): 5.00 Weight (Pounds): 120 General Appearance: alert EENT: normal ENT inspection Neck: supple Cardiovascular: normal rate Respiratory/Chest: decreased breath sounds Abdomen: normal bowel sounds, non tender, soft Extremities: non-tender QUAN BAZAN Feb 12, 2017 10:19
--- NOTE | 2017-02-12 12:52 | General Progress Note ---
Assessment/Plan Problem List: (1) Abnormal white blood cell (WBC) count ICD Codes: D72.9 - Disorder of white blood cells, unspecified SNOMED: 326751171 (2) Intractable nausea and vomiting ICD Codes: R11.2 - Nausea with vomiting, unspecified SNOMED: 557637886, 127563829 (3) Diabetes ICD Codes: E11.9 - Type 2 diabetes mellitus without complications SNOMED: 65903018 (4) Hyperglycemia ICD Codes: R73.9 - Hyperglycemia, unspecified SNOMED: 53908892 (5) Psychiatric disorder ICD Codes: F99 - Mental disorder, not otherwise specified SNOMED: 10963688, 179884214 (6) Gastroparesis due to DM ICD Codes: E11.43 - Type 2 diabetes mellitus with diabetic autonomic (poly) neuropathy; K31.84 - Gastroparesis SNOMED: 39339496, 770860072 (7) esophageal wall thickening (8) ARF (acute renal failure) ICD Codes: N17.9 - Acute kidney failure, unspecified SNOMED: 12563354 (9) HTN (hypertension) ICD Codes: I10 - Essential (primary) hypertension SNOMED: 89070266 Status: stable, progressing, tolerating diet Assessment/Plan ot pt diet bp bs pain control cbc bmp am dc plan Subjective Constitutional: Reports: weakness Allergies: Coded Allergies: No Known Allergies (Verified , NONE, 10/30/05) All Systems: reviewed and negative except above Subjective calm awake in bed Objective Last 24 Hour Vital Signs Date Time Temp Pulse Resp B/P Pulse Ox O2 Delivery O2 Flow Rate FiO2 02/12/17 08:08 79 123/89 02/12/17 08:00 97.5 79 19 123/89 100 Room Air 02/12/17 07:56 78 16 Room Air 02/12/17 07:40 75 18 100 02/12/17 00:00 97.7 78 21 98/68 95 Room Air 02/11/17 20:12 97.0 02/11/17 20:00 97.0 74 17 106/71 100 Room Air 02/11/17 19:34 83 18 Room Air 02/11/17 16:00 97.2 67 16 110/78 100 Intake and Output 02/11/17 02/12/17 19:00 07:00 Intake Total 560 ml 360 ml Balance 560 ml 360 ml Intake Oral 560 ml 360 ml # Voids 3 5 Height (Feet): 5 Height (Inches): 5.00 Weight (Pounds): 120 General Appearance: lethargic EENT: normal ENT inspection Neck: normal alignment Cardiovascular: normal peripheral pulses, normal rate, regular rhythm Respiratory/Chest: chest wall non-tender, lungs clear, normal breath sounds Abdomen: normal bowel sounds, non tender, soft Extremities: normal inspection Edema: no edema noted Arm (L), no edema noted Arm (R), no edema noted Leg (L), no edema noted Leg (R), no edema noted Pedal (L), no edema noted Pedal (R), no edema noted Generalized Neurologic: motor weakness Skin: normal pigmentation, warm/dry ENOCH GONZALEZ Feb 12, 2017 12:52
[2017-02-12 16:00] VITALS: BP 112/82
[2017-02-12] MEDS ORDERED: Heparin 2000 units/Ns 1000ml INJ PRN (16:00)
[2017-02-12] MEDS ORDERED: Sodium Bicarbonate 8.4% 50ml Inj IV PRN (16:00)
[2017-02-12] MEDS ORDERED: Lidocaine 1% Plain 30 ml INJ PRN (16:00)
[2017-02-12 19:00] VITALS: BP 116/80
--- NOTE | 2017-02-12 22:33 | Pulmonology Progress Note ---
Assessment/Plan Problems: (1) Hyperglycemia (2) Intractable nausea and vomiting (3) Gastroparesis due to DM (4) Diabetes (5) Anemia Assessment/Plan IVF insulin coverage sliding scale f/u h/h transfuse if hem < 8 Subjective Allergies: Coded Allergies: No Known Allergies (Verified , NONE, 10/30/05) Objective Last 24 Hour Vital Signs Date Time Temp Pulse Resp B/P Pulse Ox O2 Delivery O2 Flow Rate FiO2 02/12/17 20:05 88 20 Room Air 21 02/12/17 19:00 98.0 88 20 116/80 96 Room Air 02/12/17 16:00 98.1 91 22 112/82 94 Room Air 02/12/17 08:08 79 123/89 02/12/17 08:00 97.5 79 19 123/89 100 Room Air 02/12/17 07:56 78 16 Room Air 02/12/17 07:40 75 18 100 02/12/17 00:00 97.7 78 21 98/68 95 Room Air Intake and Output 02/11/17 02/12/17 19:00 07:00 Intake Total 560 ml 360 ml Balance 560 ml 360 ml Intake Oral 560 ml 360 ml # Voids 3 5 Objective General Appearance: WD/WN, Lines, tubes and drains: peripheral, central line HEENT: normocephalic Neck: non-tender Respiratory/Chest: chest wall non-tender, lungs clear Cardiovascular/Chest: normal peripheral pulses, normal rate Abdomen: normal bowel sounds, non tender Genitourinary/Rectal: normal genital exam Extremities: normal range of motion 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 normal Current Medications Medications (Trade) Dose Ordered Sig/Mateo Route PRN Reason Start Time Stop Time Status Last Admin Dose Admin Acetaminophen (Tylenol) 650 mg Q4H PRN ORAL fever 02/10/17 19:45 03/12/17 19:44 Al Hydroxide/Mg Hydroxide (Mylanta II) 30 ml Q6H PRN ORAL dyspepsia 02/10/17 19:45 03/12/17 19:44 02/11/17 19:41 Albuterol/ Ipratropium (DuoNeb 0.5-3(2.5)mg/3ml) 3 ml Q4H PRN HHN Shortness of Breath 02/10/17 19:45 02/15/17 19:44 Amlodipine Besylate (Norvasc) 5 mg DAILY ORAL 02/11/17 09:00 03/13/17 08:59 02/12/17 08:08 Clonidine HCl (Catapres) 0.1 mg Q4H PRN ORAL sbp more than 160 02/10/17 19:45 03/12/17 19:44 Dextrose (Dextrose 50%) STAT PRN IV Hypoglycemia 02/11/17 11:45 03/13/17 11:44 02/11/17 15:32 Heparin Sodium/ Sodium Chloride (Heparin 2000 units/Ns 1000ml premix) 2,000 unit ONCE PRN INJ FOR PICC INSERTION 02/12/17 16:00 02/13/17 23:59 Insulin Aspart (NovoLOG) BEFORE MEALS AND HS SUBQ 02/10/17 21:00 03/12/17 20:59 02/11/17 18:18 Insulin Aspart (NovoLOG) 3 units NOVOTIAC SUBQ 02/12/17 11:50 03/14/17 11:49 02/12/17 16:56 Insulin Detemir (Levemir) 12 units DAILY SUBQ 02/12/17 09:00 03/14/17 08:59 02/12/17 09:35 Lidocaine HCl (Xylocaine 1% 30ml) 30 ml ONCE PRN INJ FOR PICC INSERTION 02/12/17 16:00 02/13/17 23:59 Morphine Sulfate (Morphine Sulfate) 2 mg Q4H PRN IVP severe pain 7-10 02/10/17 19:45 02/17/17 19:44 02/11/17 19:42 Nitroglycerin (Ntg) 0.4 mg Q5M X 3 DOSES PRN SL Prn Chest Pain 02/10/17 17:00 03/12/17 16:59 Ondansetron HCl (Zofran) 4 mg EVERY 4 HOURS PRN ORAL Nausea & Vomiting 02/12/17 16:00 03/14/17 15:59 Ondansetron HCl (Zofran) 4 mg Q6H PRN IVP Nausea & Vomiting 02/12/17 16:00 03/14/17 15:59 Pantoprazole (Protonix) 40 mg DAILY ORAL 02/11/17 09:00 03/13/17 08:59 02/12/17 08:08 Polyethylene Glycol (Miralax) 17 gm HSPRN PRN ORAL Constipation 02/11/17 07:45 03/13/17 07:44 Ranitidine HCl (Zantac) 150 mg TWICE A DAY ORAL 02/12/17 18:00 03/14/17 17:59 02/12/17 16:52 Sodium Bicarbonate (Sodium Bicarbonate) 50 ml ONCE PRN IV FOR PICC LINE 02/12/17 16:00 02/13/17 23:59 Sucralfate (Carafate) 1 gm FOUR TIMES A DAY ORAL 02/10/17 18:00 03/12/17 17:59 02/12/17 21:19 Temazepam (Restoril) 15 mg HSPRN PRN ORAL Insomnia 02/11/17 00:22 02/18/17 00:21 02/12/17 21:19 MILA LAINEZ Feb 12, 2017 22:33
[2017-02-13] MEDS: NovoLOG Insulin Flexpen SUBQ SCH ×4 (05:55→11:50)
[2017-02-13] MEDS: Levemir Flexpen SUBQ SCH (09:00)
[2017-02-13] MEDS: Sucralfate 1gm tab ORAL SCH ×2 (09:00→13:21)
[2017-02-13] MEDS ORDERED: Glucagon 1mg Inj IM PRN (09:30)
--- NOTE | 2017-02-13 12:10 | General Progress Note ---
Assessment/Plan Problem List: (1) esophageal wall thickening (2) Psychiatric disorder ICD Codes: F99 - Mental disorder, not otherwise specified SNOMED: 03300222, 594817779 (3) Gastroparesis due to DM ICD Codes: E11.43 - Type 2 diabetes mellitus with diabetic autonomic (poly) neuropathy; K31.84 - Gastroparesis SNOMED: 48671881, 343630953 (4) Hyperglycemia ICD Codes: R73.9 - Hyperglycemia, unspecified SNOMED: 15435054 (5) Diabetes ICD Codes: E11.9 - Type 2 diabetes mellitus without complications SNOMED: 84511615 (6) Anemia ICD Codes: D64.9 - Anemia, unspecified SNOMED: 326899352 Assessment/Plan s/p EGD severe esophagitis ppi carafate zantac reflux measures fu biopsy results DM control Subjective ROS Limited/Unobtainable: Yes Allergies: Coded Allergies: No Known Allergies (Verified , NONE, 10/30/05) Subjective c/o nausea c/o heartburn Objective Last 24 Hour Vital Signs Date Time Temp Pulse Resp B/P Pulse Ox O2 Delivery O2 Flow Rate FiO2 02/13/17 09:00 88 116/80 02/12/17 20:05 88 20 Room Air 21 02/12/17 19:00 98.0 88 20 116/80 96 Room Air 02/12/17 16:00 98.1 91 22 112/82 94 Room Air Intake and Output 02/12/17 02/13/17 19:00 07:00 Intake Total 560 ml 360 ml Balance 560 ml 360 ml Intake Oral 560 ml 360 ml # Voids 4 6 # Bowel Movements 1 Height (Feet): 5 Height (Inches): 5.00 Weight (Pounds): 120 General Appearance: alert EENT: normal ENT inspection Neck: supple Cardiovascular: normal rate Respiratory/Chest: decreased breath sounds Abdomen: normal bowel sounds, non tender, soft Extremities: non-tender QUAN BAZAN Feb 13, 2017 12:10
--- NOTE | 2017-02-13 12:52 | General Progress Note ---
Assessment/Plan Problem List: (1) Abnormal white blood cell (WBC) count ICD Codes: D72.9 - Disorder of white blood cells, unspecified SNOMED: 183451119 (2) Intractable nausea and vomiting ICD Codes: R11.2 - Nausea with vomiting, unspecified SNOMED: 027485937, 758449024 (3) Diabetes ICD Codes: E11.9 - Type 2 diabetes mellitus without complications SNOMED: 53548826 (4) Hyperglycemia ICD Codes: R73.9 - Hyperglycemia, unspecified SNOMED: 62769646 (5) Psychiatric disorder ICD Codes: F99 - Mental disorder, not otherwise specified SNOMED: 01366157, 502380373 (6) Gastroparesis due to DM ICD Codes: E11.43 - Type 2 diabetes mellitus with diabetic autonomic (poly) neuropathy; K31.84 - Gastroparesis SNOMED: 19699469, 299780364 (7) esophageal wall thickening (8) ARF (acute renal failure) ICD Codes: N17.9 - Acute kidney failure, unspecified SNOMED: 08095167 (9) HTN (hypertension) ICD Codes: I10 - Essential (primary) hypertension SNOMED: 01699622 Status: stable, progressing, tolerating diet Assessment/Plan ot pt diet bp bs pain control cleared by endo dc home Subjective Constitutional: Reports: weakness Allergies: Coded Allergies: No Known Allergies (Verified , NONE, 10/30/05) All Systems: reviewed and negative except above Subjective calm awake in bed Objective Last 24 Hour Vital Signs Date Time Temp Pulse Resp B/P Pulse Ox O2 Delivery O2 Flow Rate FiO2 02/13/17 09:00 88 116/80 02/12/17 20:05 88 20 Room Air 21 02/12/17 19:00 98.0 88 20 116/80 96 Room Air 02/12/17 16:00 98.1 91 22 112/82 94 Room Air Intake and Output 02/12/17 02/13/17 19:00 07:00 Intake Total 560 ml 360 ml Balance 560 ml 360 ml Intake Oral 560 ml 360 ml # Voids 4 6 # Bowel Movements 1 Height (Feet): 5 Height (Inches): 5.00 Weight (Pounds): 120 General Appearance: lethargic, confused EENT: normal ENT inspection Neck: normal alignment Cardiovascular: normal peripheral pulses, normal rate, regular rhythm Respiratory/Chest: chest wall non-tender, lungs clear, normal breath sounds Abdomen: normal bowel sounds, non tender, soft Extremities: normal inspection Edema: no edema noted Arm (L), no edema noted Arm (R), no edema noted Leg (L), no edema noted Leg (R), no edema noted Pedal (L), no edema noted Pedal (R), no edema noted Generalized Neurologic: responsive, motor weakness Skin: normal pigmentation, warm/dry ENOCH GONZALEZ Feb 13, 2017 12:52
[2017-02-13] MEDS ORDERED: PROTONIX40 MG ORAL (14:10)
[2017-02-13] MEDS ORDERED: NORVASC5 MG ORAL (14:10)
[2017-02-13] MEDS ORDERED: RANITIDINE HCL150 MG ORAL (14:10)
[2017-02-13] MEDS ORDERED: CARAFATE1 G1 ORAL (14:10)
[2017-02-13] MEDS ORDERED: NOVOLOG100 UNIT/3 SUBQ ×3 (14:14→14:16)
[2017-02-13] MEDS ORDERED: LEVEMIR100 UNIT/1 SUBQ (14:14)
[2017-02-13 16:00] VITALS: BP 142/105
[2017-02-13] MEDS ORDERED: D5 1/2NS 1000ml IV ONE (16:46)
--- NOTE | 2017-02-14 16:12 | Discharge Summary ---
Discharge Summary Hospital Course Date of Admission Feb 08, 2017 at 05:51 Date of Discharge Feb 13, 2017 at 16:47 Admitting Diagnosis hyperglycemia HPI Amaya Wallis is a 41 year old female who was admitted on Feb 08, 2017 at 05: 51 for Hyperglycemia Hospital Course [id number] Discharge Discharge Disposition Patient was discharged to Home with Home Health(06) Discharge Diagnoses: Estefania Balderas NP Feb 14, 2017 16:12
[2017-02-14] MEDS ORDERED: VITAMIN D1000 UNI1 ORAL (17:43)
[2017-02-14] MEDS ORDERED: VITAMIN B-1100 MG ORAL (17:44)
[2017-02-14] MEDS ORDERED: TYLENOL EXTRA500 MG ORAL (17:45)
[2017-02-14] MEDS ORDERED: CALCIUM600 M1 PO (17:46)
[2017-02-14] MEDS ORDERED: SENNA8.6 M2 PO (17:47)
[2017-02-14] MEDS ORDERED: NOVOLOG100 UNITS1 SUBQ (18:07)
[2017-02-14] MEDS ORDERED: LEVEMIR100 UNIT/1 SUBQ (18:10)
--- NOTE | 2017-02-15 01:18 | Discharge Summary 2 SIG ---
DATE OF ADMISSION: 02/08/2017 DATE OF DISCHARGE: 02/13/2017 CONSULTANTS: 1. Jarek Vickers M.D. 2. Bertin Alejo M.D. 3. Fred Paz M.D. BRIEF HOSPITAL COURSE: The patient is a 41-year-old female who was discharged from the hospital a day prior secondary to diabetic ketoacidosis. The patient was discharged home and stated that she has not been taking her insulin since discharge. She presented with abdominal pain, chest pain, and vomiting. On evaluation, glucose was 631. Hemoglobin A1c was 9.9. Urine acetone was positive, however, not in acidosis. She was admitted to [facility] for blood sugar monitoring. She presented with leukocytosis and mild anemia. Creatinine elevated to 1.3. She had normal anion gap with 2+ ketones and normal lactic acid. Bicarbonate was normal. She was given IV hydration and IV insulin. Dr. Alejo was consulted. The patient has diabetes type 1 with no evidence of diabetic ketoacidosis and noncompliance with medications. She was given Levemir 15 units daily with NovoLog 4 units before meal together with sliding scale. Dr. Vickers was consulted for evaluation of abdominal pain. On 02/10/2017 underwent EGD with findings of severe distal esophagitis with whitish discharge suspicious for Melany and gastritis. She was given proton pump inhibitors. Carafate and Zantac was added. Biopsy was negative for H. pylori and intestinal metaplasia or dysplasia. Negative for fungal organisms. Insulin was adjusted. CTA of the chest was negative for PE. She underwent physical therapy and occupational therapy and was eventually discharged home. FINAL DIAGNOSES: 1. Diabetes type 1, out of control. 2. Acute renal failure. 3. Hypokalemia. 4. Gastroparesis secondary to diabetes mellitus. 5. Anemia. 6. Hypertension. 7. Severe esophagitis status post esophagogastroduodenoscopy. 8. Noncompliance with medications. Brandon Arana D.O. I have been assigned to dictate discharge summary on this account and I was not involved in the patient's management. Estefania Balderas N.P. DR: Geovany JOB#: [id number] CC: ALICIA
--- NOTE | 2017-02-16 18:29 | Cardiology Report ---
APPROVED REPORT EKG Measurement Heart [id number] AR 158P73 [id number] Sinus tachycardia Possible Left atrial enlargement Left anterior fascicular block Inferior infarct, age undetermined Possible Anterior infarct, age undetermined Abnormal ECG
== END 2017-02-13 16:47 | disposition home or self-care (01) | DRG 420 ==
LOC: EDBD 04:46 → EMR 05:45 → 2W 05:51 → EDBEDREQ 06:06 → 2W 02-09 03:00 → 2E 02-09 16:08 → 4E 02-10 16:43
PROC: 0DB68ZX Excision of Stomach, Via Natural or Artificial Opening Endoscopic, Diagnostic (ICD-10-PCS; principal; 2017-02-08)
DX: E10.65 Type 1 diabetes mellitus with hyperglycemia (principal); N17.9 Acute kidney failure, unspecified; B37.81 Candidal esophagitis; K31.84 Gastroparesis; E11.43 Type 2 diabetes mellitus with diabetic autonomic (poly)neuropathy; N39.0 Urinary tract infection, site not specified; D64.9 Anemia, unspecified; Z91.19 Patient's noncompliance with other medical treatment and regimen; Z79.4 Long term (current) use of insulin; E87.6 Hypokalemia; I10 Essential (primary) hypertension; K21.9 Gastro-esophageal reflux disease without esophagitis; K29.70 Gastritis, unspecified, without bleeding; F99 Mental disorder, not otherwise specified
CPT/HCPCS: 36415; 71010; 80048; 80053; 80061; 80300; 81003; 81025; 82009; 82378; 82947; 82962; 83036; 83605; 83690; 83735; 84443; 85025; 85610; 85730; 87040; 87081; 93005; 94003; 94150; 94664; 97803; J1815; J2405; J8499; S5561

== ENCOUNTER 2017-02-14 10:22 | Inpatient (IN) | payer MEDICAID ==
[~2017-02-14] VITALS: Ht 162.6 cm; Wt 59.0 kg
[~2017-02-14 10:22] MED LIST changes: +CARAFATE1 G1 ORAL; +NOVOLOG100 UNIT/3 SUBQ; +PROTONIX40 MG ORAL; +RANITIDINE HCL150 MG ORAL
[2017-02-14] MEDS ORDERED: Lidocaine 1% Plain 30 ml INJ ONE (11:00)
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
[2017-02-14 12:30] VITALS: BP 160/90
[2017-02-14 12:49] LABS: ALANINE AMINOTRANSFERASE 8 U/L (3-33); ALBUMIN/GLOBULIN RATIO 1.1 (1.0-2.7); ANION GAP 14 (5-15); ASPARTATE AMINO TRANSFERASE 15 U/L (5-40); CALCIUM 9.7 mg/dL (8.6-10.2); CARBON DIOXIDE 28 mEQ/L (20-30); CHLORIDE 98 mEQ/L (98-107); CREATININE 1.1 mg/dL (0.5-0.9); GLOMERULAR FILTRATION RATE > 60 mL/min (>60); HEMOLYSIS 6; LIPASE 8 U/L (< 60); SODIUM 140 mEQ/L (135-145); TOTAL PROTEIN 6.3 g/dL (6.6-8.7)
[2017-02-14 12:50] LABS: TROPONIN I < 0.30 ng/mL (<=0.30)
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
[2017-02-14 13:41] LABS: MEAN CORPUSCULAR HEMOGLOBIN 29.6 PG (27.0-31.0); MEAN CORPUSCULAR HGB CONC 32.5 G/DL (32.0-36.0); MEAN CORPUSCULAR VOLUME 91 FL (80-99); MEAN PLATELET VOLUME 8.1 FL (6.5-10.1); PLATELET COUNT 296 K/UL (150-450); RED CELL DISTRIBUTION WIDTH 13.5 % (11.6-14.8); WHITE BLOOD COUNT 21.7 K/UL (4.8-10.8)
[2017-02-14 13:57] LABS: INR 1.1 (0.9-1.1); PROTHROMBIN TIME 10.7 SEC (9.30-11.50)
[2017-02-14 14:03] LABS: BAND NEUTROPHILS % (MANUAL) 0 % (0-8); BASOPHILS % (MANUAL) 0 % (0-2); EOSINOPHILS % (MANUAL) 1 % (0-3); LYMPHOCYTES % (MANUAL) 21 % (20-45); NEUTROPHILS % (MANUAL) 74 % (45-75); PLATELET ESTIMATE ADEQUATE; TOTAL CELLS COUNTED 100
[2017-02-14 14:04] LABS: HYPOCHROMASIA 1+; PLATELET MORPHOLOGY NORMAL
[2017-02-14 14:11] LABS: APPEARANCE,URINE CLEAR; KETONES,URINE NEGATIVE (NEGATIVE); LEUKOCYTE ESTERASE ,URINE 1+ (NEGATIVE); NITRITE,URINE NEGATIVE (NEGATIVE); PH,URINE 8 (4.5-8.0); PROTEIN,URINE 2+ (NEGATIVE); UROBILINOGEN,URINE 1 MG/DL (0.0-1.0)
[2017-02-14 14:25] LABS: BACTERIA,URINE FEW /HPF; RBC,URINE 0-2 /HPF (0 - 2); SQUAMOUS EPITHELIAL CELL,UR FEW /LPF (NONE/OCC)
[2017-02-14] MEDS ORDERED: DuoNeb 0.5-3(2.5)mg/3ml neb HHN PRN (15:15)
[2017-02-14] MEDS ORDERED: Ketorolac 30mg Inj IV PRN (15:15)
[2017-02-14] MEDS ORDERED: Nitroglycerin Subl 0.4mg tab (Bottle Of 25) SL PRN (15:15)
[2017-02-14] MEDS ORDERED: Morphine Sulfate 2mg/ml Inj IVP PRN (15:15)
[2017-02-14] MEDS ORDERED: Miralax 17gm pkt ORAL PRN (15:15)
[2017-02-14] MEDS ORDERED: Mylanta II UD 30ml ORAL PRN (15:15)
[2017-02-14 15:47] VITALS: BP 118/79
[2017-02-14] MEDS: NovoLOG Insulin Flexpen SUBQ SCH ×2 (16:58→22:59)
[2017-02-14] MEDS ORDERED: VITAMIN D1000 UNI1 ORAL (17:43)
[2017-02-14] MEDS ORDERED: VITAMIN B-1100 MG ORAL (17:44)
[2017-02-14] MEDS ORDERED: TYLENOL EXTRA500 MG ORAL (17:45)
[2017-02-14] MEDS ORDERED: CALCIUM600 M1 PO (17:46)
[2017-02-14] MEDS ORDERED: SENNA8.6 M2 PO (17:47)
[2017-02-14] MEDS ORDERED: NOVOLOG100 UNITS1 SUBQ (18:07)
[2017-02-14] MEDS ORDERED: LEVEMIR100 UNIT/1 SUBQ (18:10)
--- NOTE | 2017-02-14 19:38 | History and Physical Report ---
DATE OF ADMISSION: 02/14/2017 TIME: 2 p.m. CONSULTANTS: 1. Fred Paz M.D. 2. Bertin Alejo M.D. 3. Choco Lozada M.D. 4. Jarek Vickers M.D. 5. Patrice Melissa M.D. 6. Rell Jhaveri M.D. 7. Sharmila Poole M.D. CHIEF COMPLAINT: Hyperglycemia, acute renal failure, seizure, hypertension and weakness. BRIEF HISTORY: This is a 41-year-old female who was just discharged yesterday apparently not taking her medications, came back to [facility], diagnosed with the above, and being admitted to telemetry for further care. Currently, lethargic, sleeping in bed, not talking. REVIEW OF SYSTEMS: Unavailable. PAST MEDICAL HISTORY: Diabetes, weakness, acute renal failure, GERD, seizure, and hypertension. PAST SURGICAL HISTORY: None. MEDICATIONS: Xylocaine and IV fluids, will obtain this shortly. ALLERGIES: Denies. SOCIAL HISTORY: Positive smoking. No alcohol. No intravenous drug abuse. FAMILY HISTORY: Noncontributory. PHYSICAL EXAMINATION: GENERAL: The patient is calm in bed, lethargic, alert and oriented x2, no acute distress. VITAL SIGNS: Temperature is 98 degrees, pulse is 104, respirations 16, and blood pressure 147/118. CARDIOVASCULAR: No murmur. LUNGS: Poor exchange. ABDOMEN: Positive bowel sounds. Nontender and nondistended. EXTREMITIES: No cyanosis, clubbing or edema. NEUROLOGIC: The patient moves all extremities, but slightly weak. Refused to follow directions. LABORATORY AND DIAGNOSTIC DATA: White count 21, hemoglobin and hematocrit 10/31 and platelets 296,000. BMP shows creatinine 1.1 and glucose 56. Alkaline phosphatase 110. BNP 156. Albumin 3.4. INR is pending. ASSESSMENT: 1. Diabetes. 2. Hypoglycemia. 3. Weakness. 4. Leukocytosis. 5. Anemia. 6. Acute renal failure. 7. Gastroesophageal reflux disease. 8. Seizure. 9. Hypertension. PLAN: Resume home medications. Blood pressure and blood sugar control. Nephrology followup. Dietary follow. OT/PT. Dietary evaluation. CBC and BMP in the morning. Antibiotics per Infectious Disease. We will continue to follow this patient. Brandon Arana D.O. DR: TRIXIE JOB#: [id number] CC:
[2017-02-14] MEDS: Sucralfate 1gm tab ORAL SCH (20:46)
[2017-02-14] MEDS: Heparin 5000 units/ml inj SUBQ SCH (20:47)
--- NOTE | 2017-02-14 22:53 | Consultation ---
History of Present Illness General Chief Complaint: Altered Mental Status Present Illness Allergies: Coded Allergies: No Known Allergies (Verified , NONE, 10/30/05) Medication History Scheduled Amlodipine Besylate (Norvasc), 5 MG ORAL DAILY, (Reported) Calcium Carbonate (Calcium), 600 MG PO DAILY, (Reported) Cholecalciferol (Vitamin D3)* (Vitamin D*), 1,000 UNIT ORAL DAILY, (Reported) Insulin Detemir (Levemir), 0 SUBQ BEDTIME, (Reported) Pantoprazole* (Protonix*), 40 MG ORAL DAILY, (Reported) Ranitidine Hcl* (Zantac*), 150 MG ORAL TWICE A DAY, (Reported) Sucralfate* (Carafate*), 1 GM ORAL FOUR TIMES A DAY, (Reported) Thiamine Hcl* (Vitamin B-1*), 100 MG ORAL DAILY, (Reported) Scheduled PRN Insulin Aspart (Novolog Flexpen), SUBQ TID PRN for SLIDING SCALE, (Reported) Sennosides (Senna), 8.6 MG PO DAILY PRN for Constipation, (Reported) Discontinued Medications Acetaminophen* (Tylenol Extra Strength*), 500 MG ORAL Q6H PRN for Mild Pain/ Temp > 100.5, (Reported) Discontinued Reason: Pt stopped taking med Patient History Healthcare decision maker Resuscitation status Full Code Advanced Directive on File Physical Exam Last 24 Hour Vital Signs Date Time Temp Pulse Resp B/P Pulse Ox O2 Delivery O2 Flow Rate FiO2 02/14/17 17:49 98.2 92 21 118/79 100 Room Air 02/14/17 15:47 98.2 92 21 118/79 100 Room Air 02/14/17 12:30 78 12 160/90 100 Room Air 02/14/17 10:16 98.2 104 16 147/118 99 Room Air Laboratory Tests Test 02/14/17 12:10 02/14/17 13:20 02/14/17 13:45 Sodium Level 140 mEQ/L (135-145) Potassium Level 4.0 mEQ/L (3.4-4.9) Chloride Level 98 mEQ/L (98-107) Carbon Dioxide Level 28 mEQ/L (20-30) Anion Gap 14 (5-15) Blood Urea Nitrogen 19 mg/dL (7-23) Creatinine 1.1 mg/dL (0.5-0.9) H Estimat Glomerular Filtration Rate > 60 mL/min (>60) Glucose Level 66 mg/dL (74-106) L Calcium Level 9.7 mg/dL (8.6-10.2) Total Bilirubin < 0.2 mg/dL (0.0-1.2) Aspartate Amino Transf (AST/SGOT) 15 U/L (5-40) Alanine Aminotransferase (ALT/SGPT) 8 U/L (3-33) Alkaline Phosphatase 110 U/L (35-104) H Total Creatine Kinase 30 U/L (26-140) Troponin I < 0.30 ng/mL (<=0.30) Pro-B-Type Natriuretic Peptide 156 pg/mL (0-125) H Total Protein 6.3 g/dL (6.6-8.7) L Albumin 3.4 g/dL (3.5-5.2) L Globulin 2.9 g/dL Albumin/Globulin Ratio 1.1 (1.0-2.7) Lipase 8 U/L (< 60) White Blood Count 21.7 K/UL (4.8-10.8) H Red Blood Count 3.50 M/UL (4.20-5.40) L Hemoglobin 10.4 G/DL (12.0-16.0) L Hematocrit 31.9 % (37.0-47.0) L Mean Corpuscular Volume 91 FL (80-99) Mean Corpuscular Hemoglobin 29.6 PG (27.0-31.0) Mean Corpuscular Hemoglobin Concent 32.5 G/DL (32.0-36.0) Red Cell Distribution Width 13.5 % (11.6-14.8) Platelet Count 296 K/UL (150-450) Mean Platelet Volume 8.1 FL (6.5-10.1) Neutrophils (%) (Auto) % (45.0-75.0) Lymphocytes (%) (Auto) % (20.0-45.0) Monocytes (%) (Auto) % (1.0-10.0) Eosinophils (%) (Auto) % (0.0-3.0) Basophils (%) (Auto) % (0.0-2.0) Differential Total Cells Counted 100 Neutrophils % (Manual) 74 % (45-75) Lymphocytes % (Manual) 21 % (20-45) Monocytes % (Manual) 4 % (1-10) Eosinophils % (Manual) 1 % (0-3) Basophils % (Manual) 0 % (0-2) Band Neutrophils 0 % (0-8) Platelet Estimate Adequate Platelet Morphology Normal Hypochromasia 1+ Prothrombin Time 10.7 SEC (9.30-11.50) Prothromb Time International Ratio 1.1 (0.9-1.1) Activated Partial Thromboplast Time 25 SEC (23-33) Urine Color Pale yellow Urine Appearance Clear Urine pH 8 (4.5-8.0) Urine Specific [place] 1.015 (1.005-1.035) Urine Protein 2+ (NEGATIVE) H Urine Glucose (UA) 4+ (NEGATIVE) H Urine Ketones Negative (NEGATIVE) Urine Occult Blood Negative (NEGATIVE) Urine Nitrite Negative (NEGATIVE) Urine Bilirubin Negative (NEGATIVE) Urine Urobilinogen 1 MG/DL (0.0-1.0) H Urine Leukocyte Esterase 1+ (NEGATIVE) H Urine RBC 0-2 /HPF (0 - 2) Urine WBC 2-4 /HPF (0 - 2) Urine Squamous Epithelial Cells Few /LPF (NONE/OCC) Urine Bacteria Few /HPF (NONE) Urine Opiates Screen Negative (NEGATIVE) Urine Barbiturates Screen Negative (NEGATIVE) Phencyclidine (PCP) Screen Negative (NEGATIVE) Urine Amphetamines Screen Negative (NEGATIVE) Urine Benzodiazepines Screen Negative (NEGATIVE) Urine Cocaine Screen Negative (NEGATIVE) Urine Marijuana (THC) Screen Negative (NEGATIVE) Height (Feet): 5 Height (Inches): 4.00 Weight (Pounds): 130 Medications Current Medications Medications (Trade) Dose Ordered Sig/Mateo Route PRN Reason Start Time Stop Time Status Last Admin Dose Admin Acetaminophen (Tylenol) 650 mg Q4H PRN ORAL fever 02/14/17 15:15 03/16/17 15:14 Al Hydroxide/Mg Hydroxide (Mylanta II) 30 ml Q6H PRN ORAL dyspepsia 02/14/17 15:15 03/16/17 15:14 Albuterol/ Ipratropium (DuoNeb 0.5-3(2.5)mg/3ml) 3 ml Q4H PRN HHN Shortness of Breath 02/14/17 15:15 02/19/17 15:14 Amlodipine Besylate (Norvasc) 5 mg DAILY ORAL 02/15/17 09:00 03/17/17 08:59 Clonidine HCl (Catapres) 0.1 mg Q4H PRN ORAL SBP>160 02/14/17 15:15 03/16/17 15:14 Dextrose (Dextrose 50%) STAT PRN IV Hypoglycemia 02/14/17 15:15 03/16/17 15:14 Heparin Sodium (Porcine) (Heparin 5000 units/ml) 5,000 units EVERY 12 HOURS SUBQ 02/14/17 21:00 03/16/17 20:59 02/14/17 20:47 Insulin Aspart (NovoLOG) BEFORE MEALS AND HS SUBQ 02/14/17 17:00 03/16/17 16:59 02/14/17 16:58 Ketorolac Tromethamine (Toradol 30mg) 30 mg Q6H PRN IV moderate pain 4-6 02/14/17 15:15 02/19/17 15:14 Morphine Sulfate (Morphine Sulfate) 2 mg Q4H PRN IVP severe pain 7-10 02/14/17 15:15 02/21/17 15:14 Nitroglycerin (Ntg) 0.4 mg Q5M X 3 DOSES PRN SL Prn Chest Pain 02/14/17 15:15 03/16/17 15:14 Ondansetron HCl (Zofran) 4 mg Q6H PRN IVP Nausea & Vomiting 02/14/17 15:15 03/16/17 15:14 Pantoprazole (Protonix) 40 mg DAILY ORAL 02/15/17 09:00 03/17/17 08:59 Polyethylene Glycol (Miralax) 17 gm HSPRN PRN ORAL Constipation 02/14/17 15:15 03/16/17 15:14 Sodium Chloride (Sodium Chloride 1000ml bag) 1,000 ml @ 100 mls/hr Q10H IVLG 02/14/17 18:00 03/16/17 17:59 02/14/17 18:58 Sucralfate 1 gm 1 gm FOUR TIMES A DAY ORAL 02/14/17 21:00 03/16/17 20:59 02/14/17 20:46 Temazepam (Restoril) 15 mg HSPRN PRN ORAL Insomnia 02/14/17 15:15 02/21/17 15:14 02/14/17 20:46 MILA LAINEZ Feb 14, 2017 22:53
[2017-02-15] MEDS: NovoLOG Insulin Flexpen SUBQ SCH ×6 (06:27→21:00)
--- NOTE | 2017-02-15 08:23 | General Progress Note ---
Assessment/Plan Problem List: (1) Seizure disorder ICD Codes: G40.909 - Epilepsy, unspecified, not intractable, without status epilepticus SNOMED: 478660902 (2) HTN (hypertension) ICD Codes: I10 - Essential (primary) hypertension SNOMED: 33601750 (3) Intractable nausea and vomiting ICD Codes: R11.2 - Nausea with vomiting, unspecified SNOMED: 883471943, 062353119 (4) Abnormal white blood cell (WBC) count ICD Codes: D72.9 - Disorder of white blood cells, unspecified SNOMED: 787699811 (5) Altered mental status ICD Codes: R41.82 - Altered mental status, unspecified SNOMED: 961692118 (6) Diabetes ICD Codes: E11.9 - Type 2 diabetes mellitus without complications SNOMED: 94335332 Qualifiers: Qualified Codes: E10.649 - Type 1 diabetes mellitus with hypoglycemia without coma (7) Hypoglycemia ICD Codes: E16.2 - Hypoglycemia, unspecified SNOMED: 888880719 (8) Leukocytosis ICD Codes: D72.829 - Elevated white blood cell count, unspecified SNOMED: 307976961, 717737722 Qualifiers: Qualified Codes: D72.823 - Leukemoid reaction (9) Gastroparesis due to DM ICD Codes: E11.43 - Type 2 diabetes mellitus with diabetic autonomic (poly) neuropathy; K31.84 - Gastroparesis SNOMED: 55230461, 016003596 Status: stable, progressing, tolerating diet Status Narrative ot pt diet abx bs control cbc bmp in am Subjective Constitutional: Reports: weakness Allergies: Coded Allergies: No Known Allergies (Verified , NONE, 10/30/05) All Systems: reviewed and negative except above Subjective sleepy calm Objective Last 24 Hour Vital Signs Date Time Temp Pulse Resp B/P Pulse Ox O2 Delivery O2 Flow Rate FiO2 02/14/17 17:49 98.2 92 21 118/79 100 Room Air 02/14/17 15:47 98.2 92 21 118/79 100 Room Air 02/14/17 12:30 78 12 160/90 100 Room Air 02/14/17 10:16 98.2 104 16 147/118 99 Room Air Intake and Output 02/14/17 02/15/17 19:00 07:00 Intake Total 240 ml Output Total 110 ml Balance -110 ml 240 ml Intake Oral 240 ml Output Urine Total 110 ml # Voids 2 Laboratory Tests 02/14/17 12:10: Sodium Level 140, Potassium Level 4.0, Chloride Level 98, Carbon Dioxide Level 28, Anion Gap 14, Blood Urea Nitrogen 19, Creatinine 1.1H, Estimat Glomerular Filtration Rate > 60, Glucose Level 66L, Calcium Level 9.7, Total Bilirubin < 0.2, Aspartate Amino Transf (AST/SGOT) 15, Alanine Aminotransferase (ALT/SGPT) 8 , Alkaline Phosphatase 110H, Total Creatine Kinase 30, Troponin I < 0.30, Pro-B- Type Natriuretic Peptide 156H, Total Protein 6.3L, Albumin 3.4L, Globulin 2.9, Albumin/Globulin Ratio 1.1, Lipase 8 02/14/17 13:20: White Blood Count 21.7H, Red Blood Count 3.50L, Hemoglobin 10.4L, Hematocrit 31.9L, Mean Corpuscular Volume 91, Mean Corpuscular Hemoglobin 29.6, Mean Corpuscular Hemoglobin Concent 32.5, Red Cell Distribution Width 13.5, Platelet Count 296, Mean Platelet Volume 8.1, Neutrophils (%) (Auto) , Lymphocytes (%) ( Auto) , Monocytes (%) (Auto) , Eosinophils (%) (Auto) , Basophils (%) (Auto) , Differential Total Cells Counted 100, Neutrophils % (Manual) 74, Lymphocytes % ( Manual) 21, Monocytes % (Manual) 4, Eosinophils % (Manual) 1, Basophils % ( Manual) 0, Band Neutrophils 0, Platelet Estimate Adequate, Platelet Morphology Normal, Hypochromasia 1+, Prothrombin Time 10.7, Prothromb Time International Ratio 1.1, Activated Partial Thromboplast Time 25 02/14/17 13:45: Urine Color Pale yellow, Urine Appearance Clear, Urine pH 8, Urine Specific [place] 1.015, Urine Protein 2+H, Urine Glucose (UA) 4+H, Urine Ketones Negative , Urine Occult Blood Negative, Urine Nitrite Negative, Urine Bilirubin Negative , Urine Urobilinogen 1H, Urine Leukocyte Esterase 1+H, Urine RBC 0-2, Urine WBC 2-4, Urine Squamous Epithelial Cells Few, Urine Bacteria Few, Urine Opiates Screen Negative, Urine Barbiturates Screen Negative, Phencyclidine (PCP) Screen Negative, Urine Amphetamines Screen Negative, Urine Benzodiazepines Screen Negative, Urine Cocaine Screen Negative, Urine Marijuana (THC) Screen Negative Height (Feet): 5 Height (Inches): 4.00 Weight (Pounds): 130 General Appearance: lethargic EENT: normal ENT inspection Neck: normal alignment Cardiovascular: normal peripheral pulses, normal rate, regular rhythm Respiratory/Chest: chest wall non-tender, lungs clear, normal breath sounds Abdomen: normal bowel sounds, non tender, soft Extremities: normal inspection Edema: no edema noted Arm (L), no edema noted Arm (R), no edema noted Leg (L), no edema noted Leg (R), no edema noted Pedal (L), no edema noted Pedal (R), no edema noted Generalized Neurologic: responsive, motor weakness Skin: normal pigmentation, warm/dry ENOCH GONZALEZ Feb 15, 2017 08:23
[2017-02-15] MEDS: Sucralfate 1gm tab ORAL SCH ×4 (09:00→20:39)
[2017-02-15] MEDS: Heparin 5000 units/ml inj SUBQ SCH ×2 (09:00→21:05)
[2017-02-15] MEDS: Levemir Flexpen SUBQ SCH (10:36)
--- NOTE | 2017-02-15 13:27 | Pulmonology Progress Note ---
Subjective Allergies: Coded Allergies: No Known Allergies (Verified , NONE, 10/30/05) Objective Last 24 Hour Vital Signs Date Time Temp Pulse Resp B/P Pulse Ox O2 Delivery O2 Flow Rate FiO2 02/15/17 09:00 92 118/79 02/14/17 17:49 98.2 92 21 118/79 100 Room Air 02/14/17 15:47 98.2 92 21 118/79 100 Room Air Intake and Output 02/14/17 02/15/17 19:00 07:00 Intake Total 240 ml Output Total 110 ml Balance -110 ml 240 ml Intake Oral 240 ml Output Urine Total 110 ml # Voids 2 Laboratory Tests 02/14/17 13:45: Urine Color Pale yellow, Urine Appearance Clear, Urine pH 8, Urine Specific [place] 1.015, Urine Protein 2+H, Urine Glucose (UA) 4+H, Urine Ketones Negative , Urine Occult Blood Negative, Urine Nitrite Negative, Urine Bilirubin Negative , Urine Urobilinogen 1H, Urine Leukocyte Esterase 1+H, Urine RBC 0-2, Urine WBC 2-4, Urine Squamous Epithelial Cells Few, Urine Bacteria Few, Urine Opiates Screen Negative, Urine Barbiturates Screen Negative, Phencyclidine (PCP) Screen Negative, Urine Amphetamines Screen Negative, Urine Benzodiazepines Screen Negative, Urine Cocaine Screen Negative, Urine Marijuana (THC) Screen Negative Current Medications Medications (Trade) Dose Ordered Sig/Mateo Route PRN Reason Start Time Stop Time Status Last Admin Dose Admin Acetaminophen (Tylenol) 650 mg Q4H PRN ORAL fever 02/14/17 15:15 03/16/17 15:14 Al Hydroxide/Mg Hydroxide (Mylanta II) 30 ml Q6H PRN ORAL dyspepsia 02/14/17 15:15 03/16/17 15:14 Albuterol/ Ipratropium (DuoNeb 0.5-3(2.5)mg/3ml) 3 ml Q4H PRN HHN Shortness of Breath 02/14/17 15:15 02/19/17 15:14 Amlodipine Besylate (Norvasc) 5 mg DAILY ORAL 02/15/17 09:00 03/17/17 08:59 Clonidine HCl (Catapres) 0.1 mg Q4H PRN ORAL SBP>160 02/14/17 15:15 03/16/17 15:14 Dextrose (Dextrose 50%) STAT PRN IV Hypoglycemia 02/15/17 10:15 03/17/17 10:14 Heparin Sodium (Porcine) (Heparin 5000 units/ml) 5,000 units EVERY 12 HOURS SUBQ 02/14/17 21:00 03/16/17 20:59 02/14/17 20:47 Insulin Aspart (NovoLOG) BEFORE MEALS AND HS SUBQ 02/14/17 17:00 03/16/17 16:59 02/14/17 22:59 Insulin Aspart (NovoLOG) 2 units NOVOTIAC SUBQ 02/15/17 11:50 03/17/17 11:49 Insulin Detemir (Levemir) 10 units DAILY SUBQ 02/15/17 10:15 03/17/17 10:14 02/15/17 10:36 Ketorolac Tromethamine (Toradol 30mg) 30 mg Q6H PRN IV moderate pain 4-6 02/14/17 15:15 02/19/17 15:14 Morphine Sulfate (Morphine Sulfate) 2 mg Q4H PRN IVP severe pain 7-10 02/14/17 15:15 02/21/17 15:14 Nitroglycerin (Ntg) 0.4 mg Q5M X 3 DOSES PRN SL Prn Chest Pain 02/14/17 15:15 03/16/17 15:14 Ondansetron HCl (Zofran) 4 mg Q6H PRN IVP Nausea & Vomiting 02/14/17 15:15 03/16/17 15:14 Pantoprazole (Protonix) 40 mg DAILY ORAL 02/15/17 09:00 03/17/17 08:59 Polyethylene Glycol (Miralax) 17 gm HSPRN PRN ORAL Constipation 02/14/17 15:15 03/16/17 15:14 Sodium Chloride (Sodium Chloride 1000ml bag) 1,000 ml @ 100 mls/hr Q10H IVLG 02/14/17 18:00 03/16/17 17:59 02/14/17 18:58 Sucralfate 1 gm 1 gm FOUR TIMES A DAY ORAL 02/14/17 21:00 03/16/17 20:59 02/14/17 20:46 Temazepam (Restoril) 15 mg HSPRN PRN ORAL Insomnia 02/14/17 15:15 02/21/17 15:14 02/14/17 20:46 MILA LAINEZ Feb 15, 2017 13:27
[2017-02-15 14:10] VITALS: BP 129/92
[2017-02-15 16:00] VITALS: BP 144/101
--- NOTE | 2017-02-15 17:38 | General Progress Note ---
Progress Note Progress Note [id number] full note dictated AYO CRUZ Feb 15, 2017 17:37
[2017-02-15 19:00] VITALS: BP 137/101
[2017-02-15] MEDS: Depakote ER 250mg tab ORAL SCH (20:39)
--- NOTE | 2017-02-15 22:58 | Consultation ---
DATE OF CONSULTATION: NEPHROLOGY CONSULTATION CONSULTING PHYSICIAN: Sharmila Poole M.D. REFERRING PHYSICIAN: Brandon Arana D.O. REASON FOR CONSULTATION: Hematuria, proteinuria, and abnormal electrolytes. HISTORY OF PRESENT ILLNESS: The patient is an unfortunate 41-year-old female with past medical history significant with diabetes. Apparently, the patient was recently discharged from the hospital after she is found to have an hyperglycemia. She went home and she is found to be altered and lethargic. The 911 was called and the patient was found to have blood sugar of 20. The patient was consequently brought back to emergency room and evaluated for hypoglycemia and admitted in the hospital. Also, the patient was found to be severely dehydrated and have a proteinuria. I was called for management of renal disease and electrolyte imbalance. PAST MEDICAL HISTORY: Includin. Diabetes. 2. History of hypertension. 3. Seizure disorder. 4. GERD. 5. Dyslipidemia. 6. History of acute renal failure in the past. PAST SURGICAL HISTORY: None. MEDICATIONS: Reviewed. ALLERGIES: No known drug allergies. SOCIAL HISTORY: Positive for history of smoking. There is no history of alcohol or drug use. FAMILY HISTORY: Noncontributory. REVIEW OF SYSTEMS: General: She complained of generalized weakness. Denied any fever, chills, or night sweats. Head And Neck: Denies any dysphagia, odynophagia, blurry vision, headache, or neck stiffness. Pulmonary: No shortness of breath or cough or sputum. Cardiovascular: No chest or palpitations. Gastrointestinal: Denies any nausea, vomiting, diarrhea, hematemesis, or hematochezia. Genitourinary: Denies any dysuria, frequency, or hematuria. Musculoskeletal: She complained of generalized weakness. She denies any localized weakness or numbness. PHYSICAL EXAMINATION: VITAL SIGNS: The patient has temperature of 98.0 degrees, blood pressure of 129/92, pulse rate of 79, and respiratory rate of 18. HEAD AND NECK: No JVP. No LAD. No thyromegaly. Extraocular movement intact. Pupils are reactive to light and accommodation. LUNGS: Clear to auscultation. CARDIAC: Regular rate and rhythm. S1 and S2. No murmur. No rub. ABDOMEN: Soft, nontender, and nondistended. EXTREMITIES: No edema. No clubbing. No cyanosis. LABORATORY STUDIES: The patient had an UA, which revealed specific gravity of 1.015, protein 2+, glucose 4+, leukocyte esterase 1+, WBC 2 to 4, and RBCs 0 to 2. Chemistry revealed sodium 140, potassium 4, chloride 98, bicarb 28, BUN of 19, creatinine of 1.1, and glucose of 66. Calcium of 9.7. Alkaline phosphatase of 110. BNP of 156 and total protein of 6.3. Albumin of 3.4. CBC revealed WBC count of 21,000, hemoglobin of 10, hematocrit of 31, and platelet count of 291,000. ASSESSMENT: 1. Proteinuria. The etiology of proteinuria are including diabetic nephropathy versus hypertensive nephrosclerosis. 2. Uncontrolled diabetes. 3. Elevated white blood cell count. 4. Hypertension, well controlled. PLAN: Plan for the patient to obtain a random urine protein and creatinine ratio to calculate the proteinuria and check the urine sodium and creatinine to calculate fractional excretion of sodium. I would check the hemoglobin A1c, recommended for this patient is 6 to 7. Avoid NSAIDs and nephrotoxics. Again, I would like to thank Dr. Brandon Arana for allowing me to participate in the care of this patient. Sharmila Poole M.D. DR: TOD JOB#: [id number] CC:
--- NOTE | 2017-02-16 03:28 | Consultation ---
DATE OF CONSULTATION: 02/15/2017 HISTORY OF PRESENT ILLNESS: This is a 41-year-old female with multiple medical problems including diabetes mellitus, yeast, UTI, anemia, hyperglycemia, DKA, altered mental status, leukocytosis, seizure disorder, and hypertension, who has been admitted to the hospital for hyperglycemia. Psychiatry was consulted by the social worker school at [facility] as the patient has been a frequent flier over the past several months. This is the sixth time that she was brought into the hospital. The patient has been uncooperative, throwing tantrums, acting up, and causing major issues on the floor. During the evaluation, the patient is uncooperative and easily agitated, requests to be discharged and then she decided to leave against medical advice. She is unable to understand process, communicate, nor associated information is given to her in regards to her medical condition. I also attempted to contact her family and left a message on a voicemail for the mother. The patient has child like behaviors and has impairment of cognition. She is a poor historian and she answers most of the questions "I do not know". She was not engaged during the evaluation and was a poor historian. PAST PSYCHIATRIC HISTORY: The patient denied any history of psychiatric disorders, denied any psychiatric hospitalization, and denied suicide attempts. PAST MEDICAL HISTORY: Includes acute renal failure, GERD, seizure, hypertension, and diabetes mellitus. PAST SURGICAL HISTORY: None. ALLERGIES: No known drug allergies. SUBSTANCE ABUSE HISTORY: She is a smoker. No alcohol or illicit drugs. MENTAL STATUS EXAMINATION: The patient is alert, oriented to time, self, place, and situation she is in. She was easily agitated and not engaged during the evaluation. Her mood is anxious and irritable. Affect is constricted. Congruent with mood. Thought process is concrete and tangential thought content. No suicidal or homicidal ideations. ASSESSMENT: Ridgeway I Mood disorder, not otherwise specified. Rule out mood disorder due to head trauma. Ridgeway II Rule out developmental disability. Ridgeway III Hypoglycemia. Ridgeway IV Low. Ridgeway V 25. PLAN: 1. The patient lacks capacity to leave against medical advice. 2. visitor services associate and hospital data base administrator will have meeting with the family to have a safe discharge plan and followup plan. 3. We will start the patient on a mood stabilizer like Depakote ER 750 mg by mouth at bedtime. 4. We will continue to follow and readjust the medications. Jing Jaime M.D. DR: ZAYDA JOB#: [id number] CC:
--- NOTE | 2017-02-16 04:38 | Consultation ---
DATE OF CONSULTATION: 02/15/2017 ENDOCRINOLOGY CONSULTATION REFERRING PHYSICIAN: Brandon Arana D.O. REASON FOR CONSULTATION: Diabetes, out of control. HISTORY OF PRESENT ILLNESS: The patient is a 41-year-old female, very well known to me due to multiple admissions to the hospital with diabetic ketoacidosis. She is very noncompliant with her insulin regimen, I believe she has some psychiatric issues as well. The patient came back with hyperglycemia, seizure, hypertension and weakness. Her white count is elevated, glucose is elevated and Endocrinology was consulted. At this time, the patient does not seem to be in diabetic ketoacidosis. The patient was recently discharged. PAST MEDICAL HISTORY: 1. Type 1 diabetic. 2. Renal failure. 3. GERD. 4. seizure, 5. Hypertension. 6. Psychiatric illness. PAST SURGICAL HISTORY: None. MEDICATIONS: Reviewed and reconciled. ALLERGIES: Allergies to medications none. SOCIAL HISTORY: No smoking, alcohol or drug use. FAMILY HISTORY: Noncontributory. REVIEW OF SYSTEMS: The patient is not cooperative. PHYSICAL EXAMINATION: VITAL SIGNS: Blood pressure 118/79, temperature 98.2 degrees, pulse 93, and respiratory rate of 21. HEENT: Pupils are round and reactive to light. Sclerae are anicteric. NECK: No JVD. No thyromegaly. No bruits. LUNGS: Clear. HEART: Regular rate and rhythm. ABDOMEN: Positive bowel sounds. EXTREMITIES: + edema. LABORATORY AND DIAGNOSTIC DATA: WBC of 21, hemoglobin 10, hematocrit 31 and platelet of 100,000. Sodium 140, potassium 4, chloride 98, bicarbonate 28, BUN 19, creatinine 1.1 and glucose 166. DIAGNOSES: 1. Type 1 diabetes, out of control. 2. Noncompliance with medications. 3. Leukocytosis. PLAN: 1. Start on Levemir 20 units daily. 2. NovoLog sliding scale before meals and at bed time with NovoLog 2 units before each meal. 3. Further adjustment according to blood glucose values. Thank you, Dr. Arana, for the courtesy of this consultation. Bertin Alejo M.D. DR: TIMOTEO JOB#: [id number] CC: ALICIA
[2017-02-16] MEDS: NovoLOG Insulin Flexpen SUBQ SCH ×7 (06:30→21:00)
[2017-02-16 07:43] LABS: EOSINOPHILS % (AUTO) 2.7 % (0.0-3.0); MEAN CORPUSCULAR HEMOGLOBIN 30.9 PG (27.0-31.0); MEAN CORPUSCULAR HGB CONC 33.3 G/DL (32.0-36.0); MEAN CORPUSCULAR VOLUME 93 FL (80-99); MEAN PLATELET VOLUME 6.9 FL (6.5-10.1); NEUTROPHILS % (AUTO) 42.4 % (45.0-75.0); PLATELET COUNT 286 K/UL (150-450); RED BLOOD COUNT 3.03 M/UL (4.20-5.40); RED CELL DISTRIBUTION WIDTH 13.7 % (11.6-14.8); WHITE BLOOD COUNT 8.7 K/UL (4.8-10.8)
--- NOTE | 2017-02-16 07:55 | General Progress Note ---
Assessment/Plan Problem List: (1) Seizure disorder ICD Codes: G40.909 - Epilepsy, unspecified, not intractable, without status epilepticus SNOMED: 748966104 (2) HTN (hypertension) ICD Codes: I10 - Essential (primary) hypertension SNOMED: 83465773 (3) Intractable nausea and vomiting ICD Codes: R11.2 - Nausea with vomiting, unspecified SNOMED: 678625207, 000486516 (4) Abnormal white blood cell (WBC) count ICD Codes: D72.9 - Disorder of white blood cells, unspecified SNOMED: 468913069 (5) Altered mental status ICD Codes: R41.82 - Altered mental status, unspecified SNOMED: 381694178 (6) Diabetes ICD Codes: E11.9 - Type 2 diabetes mellitus without complications SNOMED: 22115726 Qualifiers: Qualified Codes: E10.649 - Type 1 diabetes mellitus with hypoglycemia without coma (7) Hypoglycemia ICD Codes: E16.2 - Hypoglycemia, unspecified SNOMED: 282461070 (8) Leukocytosis ICD Codes: D72.829 - Elevated white blood cell count, unspecified SNOMED: 763621698, 518466994 Qualifiers: Qualified Codes: D72.823 - Leukemoid reaction (9) Gastroparesis due to DM ICD Codes: E11.43 - Type 2 diabetes mellitus with diabetic autonomic (poly) neuropathy; K31.84 - Gastroparesis SNOMED: 29427194, 140692272 Status: stable, progressing, tolerating diet Assessment/Plan ot pt diet bp bs control cbc bmp am dc plan snf Subjective Constitutional: Reports: weakness Allergies: Coded Allergies: No Known Allergies (Verified , NONE, 10/30/05) All Systems: reviewed and negative except above Subjective sleepy calm Objective Last 24 Hour Vital Signs Date Time Temp Pulse Resp B/P Pulse Ox O2 Delivery O2 Flow Rate FiO2 02/15/17 19:00 97.9 98 20 137/101 100 Room Air 02/15/17 16:00 97.3 93 20 144/101 100 Room Air 02/15/17 14:10 97.6 79 19 129/92 99 Room Air 02/15/17 09:00 92 118/79 Intake and Output 02/15/17 02/16/17 19:00 07:00 Intake Total 520 ml 320 ml Balance 520 ml 320 ml Intake Oral 520 ml 320 ml # Voids 3 5 Laboratory Tests 02/16/17 04:45: White Blood Count 8.7, Red Blood Count 3.03L, Hemoglobin 9.4L, Hematocrit 28.1L , Mean Corpuscular Volume 93, Mean Corpuscular Hemoglobin 30.9, Mean Corpuscular Hemoglobin Concent 33.3, Red Cell Distribution Width 13.7, Platelet Count 286, Mean Platelet Volume 6.9, Neutrophils (%) (Auto) 42.4L, Lymphocytes ( %) (Auto) 48.0H, Monocytes (%) (Auto) 6.0, Eosinophils (%) (Auto) 2.7, Basophils (%) (Auto) 1.0 02/16/17 05:45: Sodium Level [Pending], Potassium Level [Pending], Chloride Level [Pending], Carbon Dioxide Level [Pending], Blood Urea Nitrogen [Pending], Creatinine [ Pending], Estimat Glomerular Filtration Rate [Pending], Glucose Level [Pending] , Calcium Level [Pending] Height (Feet): 5 Height (Inches): 4.00 Weight (Pounds): 130 General Appearance: lethargic EENT: normal ENT inspection Neck: normal alignment Cardiovascular: normal peripheral pulses, normal rate, regular rhythm Respiratory/Chest: chest wall non-tender, lungs clear, normal breath sounds Abdomen: normal bowel sounds, non tender, soft Extremities: normal inspection Edema: no edema noted Arm (L), no edema noted Arm (R), no edema noted Leg (L), no edema noted Leg (R), no edema noted Pedal (L), no edema noted Pedal (R), no edema noted Generalized Neurologic: motor weakness Skin: normal pigmentation, warm/dry ENOCH GONZALEZ Feb 16, 2017 07:55
[2017-02-16 08:00] VITALS: BP 141/77
[2017-02-16 08:14] LABS: ANION GAP 13 (5-15); CALCIUM 8.5 mg/dL (8.6-10.2); CARBON DIOXIDE 27 mEQ/L (20-30); CHLORIDE 94 mEQ/L (98-107); CREATININE 1.2 mg/dL (0.5-0.9); GLOMERULAR FILTRATION RATE > 60 mL/min (>60); HEMOLYSIS 4; POTASSIUM 4.4 mEQ/L (3.4-4.9); SODIUM 134 mEQ/L (135-145)
--- NOTE | 2017-02-16 11:01 | General Progress Note ---
Assessment/Plan Problem List: (1) Diabetes ICD Codes: E11.9 - Type 2 diabetes mellitus without complications SNOMED: 94317167 Qualifiers: Qualified Codes: E10.649 - Type 1 diabetes mellitus with hypoglycemia without coma (2) Altered mental status ICD Codes: R41.82 - Altered mental status, unspecified SNOMED: 246052304 (3) Anemia ICD Codes: D64.9 - Anemia, unspecified SNOMED: 544950408 (4) Seizure disorder ICD Codes: G40.909 - Epilepsy, unspecified, not intractable, without status epilepticus SNOMED: 414231317 (5) Gastroparesis due to DM ICD Codes: E11.43 - Type 2 diabetes mellitus with diabetic autonomic (poly) neuropathy; K31.84 - Gastroparesis SNOMED: 40687452, 263898892 (6) Abnormal white blood cell (WBC) count ICD Codes: D72.9 - Disorder of white blood cells, unspecified SNOMED: 991039230 Assessment/Plan glycemic control improved continue Levemir 10 units daily continue Novolog 2 units ac tid + SSI Subjective ROS Limited/Unobtainable: Yes Allergies: Coded Allergies: No Known Allergies (Verified , NONE, 10/30/05) Subjective non communicating Objective Last 24 Hour Vital Signs Date Time Temp Pulse Resp B/P Pulse Ox O2 Delivery O2 Flow Rate FiO2 02/16/17 08:00 97.4 86 19 141/77 98 Room Air 02/15/17 19:00 97.9 98 20 137/101 100 Room Air 02/15/17 16:00 97.3 93 20 144/101 100 Room Air 02/15/17 14:10 97.6 79 19 129/92 99 Room Air Intake and Output 02/15/17 02/16/17 19:00 07:00 Intake Total 520 ml 320 ml Balance 520 ml 320 ml Intake Oral 520 ml 320 ml # Voids 3 5 Laboratory Tests 02/16/17 04:45: White Blood Count 8.7, Red Blood Count 3.03L, Hemoglobin 9.4L, Hematocrit 28.1L , Mean Corpuscular Volume 93, Mean Corpuscular Hemoglobin 30.9, Mean Corpuscular Hemoglobin Concent 33.3, Red Cell Distribution Width 13.7, Platelet Count 286, Mean Platelet Volume 6.9, Neutrophils (%) (Auto) 42.4L, Lymphocytes ( %) (Auto) 48.0H, Monocytes (%) (Auto) 6.0, Eosinophils (%) (Auto) 2.7, Basophils (%) (Auto) 1.0 02/16/17 05:30: Urine Random Creatinine [Pending], Urine Random Microalbumin [Pending], Urine Random Total Protein 6, Urine Random Sodium 121, Urine Creatinine 33.9, Urine Microalbumin/Creatinine Ratio [Pending] 02/16/17 05:45: Sodium Level 134L, Potassium Level 4.4, Chloride Level 94L, Carbon Dioxide Level 27, Anion Gap 13, Blood Urea Nitrogen 17, Creatinine 1.2H, Estimat Glomerular Filtration Rate > 60, Glucose Level 441H, Calcium Level 8.5L Height (Feet): 5 Height (Inches): 4.00 Weight (Pounds): 130 General Appearance: no apparent distress Neck: normal alignment Cardiovascular: normal rate Respiratory/Chest: lungs clear Pelvis: normal external exam Edema: 1+ Arm (L), 1+ Arm (R), 1+ Leg (L), 1+ Leg (R), 1+ Pedal (L), 1+ Pedal ( R), 1+ Generalized Objective Current Medications Medications (Trade) Dose Ordered Sig/Mateo Route PRN Reason Start Time Stop Time Status Last Admin Dose Admin Acetaminophen (Tylenol) 650 mg Q4H PRN ORAL fever 02/14/17 15:15 03/16/17 15:14 Al Hydroxide/Mg Hydroxide (Mylanta II) 30 ml Q6H PRN ORAL dyspepsia 02/14/17 15:15 03/16/17 15:14 Albuterol/ Ipratropium (DuoNeb 0.5-3(2.5)mg/3ml) 3 ml Q4H PRN HHN Shortness of Breath 02/14/17 15:15 02/19/17 15:14 Amlodipine Besylate (Norvasc) 5 mg DAILY ORAL 02/15/17 09:00 03/17/17 08:59 Clonidine HCl (Catapres) 0.1 mg Q4H PRN ORAL SBP>160 02/14/17 15:15 03/16/17 15:14 Dextrose (Dextrose 50%) STAT PRN IV Hypoglycemia 02/15/17 10:15 03/17/17 10:14 Divalproex Sodium (Depakote ER) 750 mg BEDTIME ORAL 02/15/17 21:00 03/17/17 20:59 02/15/17 20:39 Heparin Sodium (Porcine) (Heparin 5000 units/ml) 5,000 units EVERY 12 HOURS SUBQ 02/14/17 21:00 03/16/17 20:59 02/15/17 21:05 Insulin Aspart (NovoLOG) BEFORE MEALS AND HS SUBQ 02/14/17 17:00 03/16/17 16:59 02/15/17 18:07 Insulin Aspart (NovoLOG) 2 units NOVOTIAC SUBQ 02/15/17 11:50 03/17/17 11:49 02/16/17 07:10 Insulin Detemir (Levemir) 10 units DAILY SUBQ 02/15/17 10:15 03/17/17 10:14 02/15/17 10:36 Ketorolac Tromethamine (Toradol 30mg) 30 mg Q6H PRN IV moderate pain 4-6 02/14/17 15:15 02/19/17 15:14 Morphine Sulfate (Morphine Sulfate) 2 mg Q4H PRN IVP severe pain 7-10 02/14/17 15:15 02/21/17 15:14 Nitroglycerin (Ntg) 0.4 mg Q5M X 3 DOSES PRN SL Prn Chest Pain 02/14/17 15:15 03/16/17 15:14 Ondansetron HCl (Zofran) 4 mg Q6H PRN IVP Nausea & Vomiting 02/14/17 15:15 03/16/17 15:14 Pantoprazole (Protonix) 40 mg DAILY ORAL 02/15/17 09:00 03/17/17 08:59 Polyethylene Glycol (Miralax) 17 gm HSPRN PRN ORAL Constipation 02/14/17 15:15 03/16/17 15:14 Sodium Chloride (Sodium Chloride 1000ml bag) 1,000 ml @ 100 mls/hr Q10H IVLG 02/14/17 18:00 03/16/17 17:59 02/14/17 18:58 Sucralfate 1 gm 1 gm FOUR TIMES A DAY ORAL 02/14/17 21:00 03/16/17 20:59 02/15/17 20:39 Temazepam (Restoril) 15 mg HSPRN PRN ORAL Insomnia 02/14/17 15:15 02/21/17 15:14 02/15/17 20:39 Item Value Date Time Bedside Blood Glucose 103 mg/dl 02/16/17 0710 Bedside Blood Glucose 103 mg/dl 02/16/17 0630 Bedside Blood Glucose 88 mg/dl 02/15/17 2100 Bedside Blood Glucose 323 mg/dl H 02/15/17 1807 Bedside Blood Glucose 405 mg/dl H 02/15/17 1409 FRANCES BRADLEY 26, 2017 11:00
[2017-02-16] MEDS: Sucralfate 1gm tab ORAL SCH ×4 (11:39→21:00)
[2017-02-16] MEDS: Heparin 5000 units/ml inj SUBQ SCH ×2 (11:41→20:01)
[2017-02-16] MEDS: Levemir Flexpen SUBQ SCH (11:45)
[2017-02-16 12:00] VITALS: BP 108/69
[2017-02-16 16:00] VITALS: BP 118/87
--- NOTE | 2017-02-16 16:05 | Nephrology Progress Note ---
Assessment/Plan Assessment 1. Proteinuria. not detected on random urine protein /creatinine 2. Uncontrolled diabetes. 3. Elevated white blood cell count. RESOLVED 4. Hypertension, well controlled. Plan plan to continue hydration monitoring renal function avoid NSAID Subjective Constitutional: Reports: no symptoms HEENT: Reports: no symptoms Genitourinary: Reports: no symptoms Neurologic/Psychiatric: Reports: no symptoms Subjective NAD Objective Objective Last 24 Hour Vital Signs Date Time Temp Pulse Resp B/P Pulse Ox O2 Delivery O2 Flow Rate FiO2 02/16/17 12:00 98.1 65 19 108/69 97 Room Air 02/16/17 11:38 86 141/77 02/16/17 08:00 97.4 86 19 141/77 98 Room Air 02/15/17 19:00 97.9 98 20 137/101 100 Room Air Intake and Output 02/15/17 02/16/17 19:00 07:00 Intake Total 520 ml 320 ml Balance 520 ml 320 ml Intake Oral 520 ml 320 ml # Voids 3 5 Laboratory Tests 02/16/17 04:45: White Blood Count 8.7, Red Blood Count 3.03L, Hemoglobin 9.4L, Hematocrit 28.1L , Mean Corpuscular Volume 93, Mean Corpuscular Hemoglobin 30.9, Mean Corpuscular Hemoglobin Concent 33.3, Red Cell Distribution Width 13.7, Platelet Count 286, Mean Platelet Volume 6.9, Neutrophils (%) (Auto) 42.4L, Lymphocytes ( %) (Auto) 48.0H, Monocytes (%) (Auto) 6.0, Eosinophils (%) (Auto) 2.7, Basophils (%) (Auto) 1.0 02/16/17 05:30: Urine Random Creatinine [Pending], Urine Random Microalbumin [Pending], Urine Random Total Protein 6, Urine Random Sodium 121, Urine Creatinine 33.9, Urine Microalbumin/Creatinine Ratio [Pending] 02/16/17 05:45: Sodium Level 134L, Potassium Level 4.4, Chloride Level 94L, Carbon Dioxide Level 27, Anion Gap 13, Blood Urea Nitrogen 17, Creatinine 1.2H, Estimat Glomerular Filtration Rate > 60, Glucose Level 441H, Calcium Level 8.5L Height (Feet): 5 Height (Inches): 4.00 Weight (Pounds): 130 Objective HEAD AND NECK: No JVP. No LAD. No thyromegaly. Extraocular movement intact. Pupils are reactive to light and accommodation. LUNGS: Clear to auscultation. CARDIAC: Regular rate and rhythm. S1 and S2. No murmur. No rub. ABDOMEN: Soft, nontender, and nondistended. EXTREMITIES: No edema. No clubbing. No cyanosis. AYO CRUZ Feb 16, 2017 16:05
--- NOTE | 2017-02-16 18:32 | Cardiology Report ---
APPROVED REPORT EKG Measurement Heart [id number] HI 176P66 [id number] Normal sinus rhythm Low voltage QRS Left anterior fascicular block Possible Anterolateral infarct, age undetermined Abnormal ECG
[2017-02-16 20:00] VITALS: BP 112/80
[2017-02-16] MEDS: Depakote ER 250mg tab ORAL SCH (20:02)
--- NOTE | 2017-02-16 22:49 | Pulmonology Progress Note ---
Subjective Allergies: Coded Allergies: No Known Allergies (Verified , NONE, 10/30/05) Objective Last 24 Hour Vital Signs Date Time Temp Pulse Resp B/P Pulse Ox O2 Delivery O2 Flow Rate FiO2 02/16/17 20:00 96.6 88 18 112/80 100 Room Air 02/16/17 16:00 98.1 90 20 118/87 100 Room Air 02/16/17 12:00 98.1 65 19 108/69 97 Room Air 02/16/17 11:38 86 141/77 02/16/17 08:00 97.4 86 19 141/77 98 Room Air Intake and Output 02/15/17 02/16/17 19:00 07:00 Intake Total 520 ml 320 ml Balance 520 ml 320 ml Intake Oral 520 ml 320 ml # Voids 3 5 Microbiology Date/Time Source Procedure Growth Status 02/14/17 18:34 Nasal Nares MRSA Culture - Final Staphylococcus Aureus - Mrsa Complete 02/14/17 18:34 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 Complete Laboratory Tests 02/16/17 04:45: White Blood Count 8.7, Red Blood Count 3.03L, Hemoglobin 9.4L, Hematocrit 28.1L , Mean Corpuscular Volume 93, Mean Corpuscular Hemoglobin 30.9, Mean Corpuscular Hemoglobin Concent 33.3, Red Cell Distribution Width 13.7, Platelet Count 286, Mean Platelet Volume 6.9, Neutrophils (%) (Auto) 42.4L, Lymphocytes ( %) (Auto) 48.0H, Monocytes (%) (Auto) 6.0, Eosinophils (%) (Auto) 2.7, Basophils (%) (Auto) 1.0 02/16/17 05:30: Urine Random Creatinine [Pending], Urine Random Microalbumin [Pending], Urine Random Total Protein 6, Urine Random Sodium 121, Urine Creatinine 33.9, Urine Microalbumin/Creatinine Ratio [Pending] 02/16/17 05:45: Sodium Level 134L, Potassium Level 4.4, Chloride Level 94L, Carbon Dioxide Level 27, Anion Gap 13, Blood Urea Nitrogen 17, Creatinine 1.2H, Estimat Glomerular Filtration Rate > 60, Glucose Level 441H, Calcium Level 8.5L Current Medications Medications (Trade) Dose Ordered Sig/Mateo Route PRN Reason Start Time Stop Time Status Last Admin Dose Admin Acetaminophen (Tylenol) 650 mg Q4H PRN ORAL fever 02/14/17 15:15 03/16/17 15:14 Al Hydroxide/Mg Hydroxide (Mylanta II) 30 ml Q6H PRN ORAL dyspepsia 02/14/17 15:15 03/16/17 15:14 Albuterol/ Ipratropium (DuoNeb 0.5-3(2.5)mg/3ml) 3 ml Q4H PRN HHN Shortness of Breath 02/14/17 15:15 02/19/17 15:14 Amlodipine Besylate (Norvasc) 5 mg DAILY ORAL 02/15/17 09:00 03/17/17 08:59 02/16/17 11:38 Clonidine HCl (Catapres) 0.1 mg Q4H PRN ORAL SBP>160 02/14/17 15:15 03/16/17 15:14 Dextrose (Dextrose 50%) STAT PRN IV Hypoglycemia 02/15/17 10:15 03/17/17 10:14 Divalproex Sodium (Depakote ER) 750 mg BEDTIME ORAL 02/15/17 21:00 03/17/17 20:59 02/16/17 20:02 Heparin Sodium (Porcine) (Heparin 5000 units/ml) 5,000 units EVERY 12 HOURS SUBQ 02/14/17 21:00 03/16/17 20:59 02/16/17 11:41 Insulin Aspart (NovoLOG) BEFORE MEALS AND HS SUBQ 02/14/17 17:00 03/16/17 16:59 02/16/17 13:51 Insulin Aspart (NovoLOG) 2 units NOVOTIAC SUBQ 02/15/17 11:50 03/17/17 11:49 02/16/17 13:51 Insulin Detemir (Levemir) 10 units DAILY SUBQ 02/15/17 10:15 03/17/17 10:14 02/16/17 11:45 Ketorolac Tromethamine (Toradol 30mg) 30 mg Q6H PRN IV moderate pain 4-6 02/14/17 15:15 02/19/17 15:14 Morphine Sulfate (Morphine Sulfate) 2 mg Q4H PRN IVP severe pain 7-10 02/14/17 15:15 02/21/17 15:14 Nitroglycerin (Ntg) 0.4 mg Q5M X 3 DOSES PRN SL Prn Chest Pain 02/14/17 15:15 03/16/17 15:14 Ondansetron HCl (Zofran) 4 mg Q6H PRN IVP Nausea & Vomiting 02/14/17 15:15 03/16/17 15:14 Pantoprazole (Protonix) 40 mg DAILY ORAL 02/15/17 09:00 03/17/17 08:59 02/16/17 11:39 Polyethylene Glycol (Miralax) 17 gm HSPRN PRN ORAL Constipation 02/14/17 15:15 03/16/17 15:14 Sodium Chloride (Sodium Chloride 1000ml bag) 1,000 ml @ 100 mls/hr Q10H IVLG 02/14/17 18:00 03/16/17 17:59 02/14/17 18:58 Sucralfate 1 gm 1 gm FOUR TIMES A DAY ORAL 02/14/17 21:00 03/16/17 20:59 02/16/17 20:00 Temazepam (Restoril) 15 mg HSPRN PRN ORAL Insomnia 02/14/17 15:15 02/21/17 15:14 02/16/17 20:02 MILA LAINEZ Feb 16, 2017 22:49
[2017-02-17] VITALS: BP 114/62
[2017-02-17 04:00] VITALS: BP 112/61
[2017-02-17] MEDS: NovoLOG Insulin Flexpen SUBQ SCH ×7 (06:30→21:41)
[2017-02-17 08:00] VITALS: BP 122/87
[2017-02-17] MEDS: Sucralfate 1gm tab ORAL SCH ×4 (08:16→21:38)
[2017-02-17] MEDS: Heparin 5000 units/ml inj SUBQ SCH ×2 (08:32→21:40)
[2017-02-17] MEDS: Levemir Flexpen SUBQ SCH (08:32)
[2017-02-17 10:22] LABS: BASOPHILS % (AUTO) 0.7 % (0.0-2.0); EOSINOPHILS % (AUTO) 2.5 % (0.0-3.0); LYMPHOCYTES % (AUTO) 45.4 % (20.0-45.0); MEAN CORPUSCULAR HEMOGLOBIN 29.7 PG (27.0-31.0); MEAN CORPUSCULAR HGB CONC 32.2 G/DL (32.0-36.0); MEAN CORPUSCULAR VOLUME 92 FL (80-99); MONOCYTES % (AUTO) 4.6 % (1.0-10.0); NEUTROPHILS % (AUTO) 46.8 % (45.0-75.0); PLATELET COUNT 300 K/UL (150-450); RED BLOOD COUNT 3.22 M/UL (4.20-5.40); RED CELL DISTRIBUTION WIDTH 13.9 % (11.6-14.8); WHITE BLOOD COUNT 7.5 K/UL (4.8-10.8)
[2017-02-17 10:38] LABS: ANION GAP 13 (5-15); CALCIUM 8.7 mg/dL (8.6-10.2); CARBON DIOXIDE 27 mEQ/L (20-30); CHLORIDE 96 mEQ/L (98-107); CREATININE 1.1 mg/dL (0.5-0.9); GLOMERULAR FILTRATION RATE > 60 mL/min (>60); HEMOLYSIS 3; POTASSIUM 4.7 mEQ/L (3.4-4.9); SODIUM 136 mEQ/L (135-145)
[2017-02-17 12:00] VITALS: BP 122/89
--- NOTE | 2017-02-17 13:55 | General Progress Note ---
Assessment/Plan Problem List: (1) Seizure disorder ICD Codes: G40.909 - Epilepsy, unspecified, not intractable, without status epilepticus SNOMED: 019007853 (2) HTN (hypertension) ICD Codes: I10 - Essential (primary) hypertension SNOMED: 89188244 (3) Intractable nausea and vomiting ICD Codes: R11.2 - Nausea with vomiting, unspecified SNOMED: 042504368, 767667847 (4) Abnormal white blood cell (WBC) count ICD Codes: D72.9 - Disorder of white blood cells, unspecified SNOMED: 033653577 (5) Altered mental status ICD Codes: R41.82 - Altered mental status, unspecified SNOMED: 257328428 (6) Diabetes ICD Codes: E11.9 - Type 2 diabetes mellitus without complications SNOMED: 55120538 Qualifiers: Qualified Codes: E10.649 - Type 1 diabetes mellitus with hypoglycemia without coma (7) Hypoglycemia ICD Codes: E16.2 - Hypoglycemia, unspecified SNOMED: 881777155 (8) Leukocytosis ICD Codes: D72.829 - Elevated white blood cell count, unspecified SNOMED: 364538086, 683688899 Qualifiers: Qualified Codes: D72.823 - Leukemoid reaction (9) Gastroparesis due to DM ICD Codes: E11.43 - Type 2 diabetes mellitus with diabetic autonomic (poly) neuropathy; K31.84 - Gastroparesis SNOMED: 79160824, 584409169 Status: stable, progressing, tolerating diet Assessment/Plan ot pt diet bp bs control cbc bmp am dc plan snf Subjective Constitutional: Reports: weakness Allergies: Coded Allergies: No Known Allergies (Verified , NONE, 10/30/05) All Systems: reviewed and negative except above Subjective sl agitated Objective Last 24 Hour Vital Signs Date Time Temp Pulse Resp B/P Pulse Ox O2 Delivery O2 Flow Rate FiO2 02/17/17 12:00 97.0 109 20 122/89 100 Room Air 02/17/17 08:16 100 122/87 02/17/17 08:00 97.7 95 20 122/87 100 Room Air 02/17/17 04:00 98.0 54 18 112/61 100 Room Air 02/17/17 00:00 97.4 64 17 114/62 98 Room Air 02/16/17 20:00 96.6 88 18 112/80 100 Room Air 02/16/17 16:00 98.1 90 20 118/87 100 Room Air Intake and Output 02/16/17 02/17/17 19:00 07:00 Intake Total 900 ml 180 ml Balance 900 ml 180 ml Intake Oral 900 ml 180 ml # Voids 3 3 Laboratory Tests 02/17/17 09:42: White Blood Count 7.5, Red Blood Count 3.22L, Hemoglobin 9.6L, Hematocrit 29.8L , Mean Corpuscular Volume 92, Mean Corpuscular Hemoglobin 29.7, Mean Corpuscular Hemoglobin Concent 32.2, Red Cell Distribution Width 13.9, Platelet Count 300, Mean Platelet Volume 7.0, Neutrophils (%) (Auto) 46.8, Lymphocytes (% ) (Auto) 45.4H, Monocytes (%) (Auto) 4.6, Eosinophils (%) (Auto) 2.5, Basophils (%) (Auto) 0.7, Sodium Level 136, Potassium Level 4.7, Chloride Level 96L, Carbon Dioxide Level 27, Anion Gap 13, Blood Urea Nitrogen 16, Creatinine 1.1H, Estimat Glomerular Filtration Rate > 60, Glucose Level 483H, Calcium Level 8.7 Height (Feet): 5 Height (Inches): 4.00 Weight (Pounds): 130 General Appearance: confused EENT: normal ENT inspection Neck: normal alignment Cardiovascular: normal peripheral pulses, normal rate, regular rhythm Respiratory/Chest: chest wall non-tender, lungs clear, normal breath sounds Abdomen: normal bowel sounds, non tender, soft Extremities: normal inspection Edema: no edema noted Arm (L), no edema noted Arm (R), no edema noted Leg (L), no edema noted Leg (R), no edema noted Pedal (L), no edema noted Pedal (R), no edema noted Generalized Neurologic: motor weakness Skin: normal pigmentation, warm/dry ENOCH GONZALEZ Feb 17, 2017 13:55
--- NOTE | 2017-02-17 15:44 | Nephrology Progress Note ---
Assessment/Plan Assessment 1. Proteinuria. not detected on random urine protein /creatinine 2. Uncontrolled diabetes. 3. Elevated white blood cell count. RESOLVED 4. Hypertension, well controlled. Plan plan to continue hydration monitoring renal function avoid NSAID Subjective Constitutional: Reports: no symptoms HEENT: Reports: no symptoms Genitourinary: Reports: no symptoms Neurologic/Psychiatric: Reports: no symptoms Subjective NAD no events Objective Objective Last 24 Hour Vital Signs Date Time Temp Pulse Resp B/P Pulse Ox O2 Delivery O2 Flow Rate FiO2 02/17/17 12:00 97.0 109 20 122/89 100 Room Air 02/17/17 08:16 100 122/87 02/17/17 08:00 97.7 95 20 122/87 100 Room Air 02/17/17 04:00 98.0 54 18 112/61 100 Room Air 02/17/17 00:00 97.4 64 17 114/62 98 Room Air 02/16/17 20:00 96.6 88 18 112/80 100 Room Air 02/16/17 16:00 98.1 90 20 118/87 100 Room Air Intake and Output 02/16/17 02/17/17 19:00 07:00 Intake Total 900 ml 180 ml Balance 900 ml 180 ml Intake Oral 900 ml 180 ml # Voids 3 3 Laboratory Tests 02/17/17 09:42: White Blood Count 7.5, Red Blood Count 3.22L, Hemoglobin 9.6L, Hematocrit 29.8L , Mean Corpuscular Volume 92, Mean Corpuscular Hemoglobin 29.7, Mean Corpuscular Hemoglobin Concent 32.2, Red Cell Distribution Width 13.9, Platelet Count 300, Mean Platelet Volume 7.0, Neutrophils (%) (Auto) 46.8, Lymphocytes (% ) (Auto) 45.4H, Monocytes (%) (Auto) 4.6, Eosinophils (%) (Auto) 2.5, Basophils (%) (Auto) 0.7, Sodium Level 136, Potassium Level 4.7, Chloride Level 96L, Carbon Dioxide Level 27, Anion Gap 13, Blood Urea Nitrogen 16, Creatinine 1.1H, Estimat Glomerular Filtration Rate > 60, Glucose Level 483H, Calcium Level 8.7 Height (Feet): 5 Height (Inches): 4.00 Weight (Pounds): 130 Objective HEAD AND NECK: No JVP. No LAD. No thyromegaly. Extraocular movement intact. Pupils are reactive to light and accommodation. LUNGS: Clear to auscultation. CARDIAC: Regular rate and rhythm. S1 and S2. No murmur. No rub. ABDOMEN: Soft, nontender, and nondistended. EXTREMITIES: No edema. No clubbing. No cyanosis. AYO CRUZ Feb 17, 2017 15:44
[2017-02-17 16:00] VITALS: BP 143/98
[2017-02-17 20:00] VITALS: BP 118/87
[2017-02-17] MEDS: Depakote ER 250mg tab ORAL SCH (21:38)
--- NOTE | 2017-02-17 23:26 | Pulmonology Progress Note ---
Subjective Allergies: Coded Allergies: No Known Allergies (Verified , NONE, 10/30/05) Objective Last 24 Hour Vital Signs Date Time Temp Pulse Resp B/P Pulse Ox O2 Delivery O2 Flow Rate FiO2 02/17/17 20:00 97.7 95 19 118/87 100 Room Air 02/17/17 16:00 100.2 104 17 143/98 99 Room Air 02/17/17 12:00 97.0 109 20 122/89 100 Room Air 02/17/17 08:16 100 122/87 02/17/17 08:00 97.7 95 20 122/87 100 Room Air 02/17/17 04:00 98.0 54 18 112/61 100 Room Air 02/17/17 00:00 97.4 64 17 114/62 98 Room Air Intake and Output 02/16/17 02/17/17 19:00 07:00 Intake Total 900 ml 180 ml Balance 900 ml 180 ml Intake Oral 900 ml 180 ml # Voids 3 3 Laboratory Tests 02/17/17 09:42: White Blood Count 7.5, Red Blood Count 3.22L, Hemoglobin 9.6L, Hematocrit 29.8L , Mean Corpuscular Volume 92, Mean Corpuscular Hemoglobin 29.7, Mean Corpuscular Hemoglobin Concent 32.2, Red Cell Distribution Width 13.9, Platelet Count 300, Mean Platelet Volume 7.0, Neutrophils (%) (Auto) 46.8, Lymphocytes (% ) (Auto) 45.4H, Monocytes (%) (Auto) 4.6, Eosinophils (%) (Auto) 2.5, Basophils (%) (Auto) 0.7, Sodium Level 136, Potassium Level 4.7, Chloride Level 96L, Carbon Dioxide Level 27, Anion Gap 13, Blood Urea Nitrogen 16, Creatinine 1.1H, Estimat Glomerular Filtration Rate > 60, Glucose Level 483H, Calcium Level 8.7 02/17/17 17:52: Glucose Level 507*H Current Medications Medications (Trade) Dose Ordered Sig/Mateo Route PRN Reason Start Time Stop Time Status Last Admin Dose Admin Acetaminophen (Tylenol) 650 mg Q4H PRN ORAL fever 02/14/17 15:15 03/16/17 15:14 Al Hydroxide/Mg Hydroxide (Mylanta II) 30 ml Q6H PRN ORAL dyspepsia 02/14/17 15:15 03/16/17 15:14 Albuterol/ Ipratropium (DuoNeb 0.5-3(2.5)mg/3ml) 3 ml Q4H PRN HHN Shortness of Breath 02/14/17 15:15 02/19/17 15:14 Amlodipine Besylate (Norvasc) 5 mg DAILY ORAL 02/15/17 09:00 03/17/17 08:59 02/17/17 08:16 Clonidine HCl (Catapres) 0.1 mg Q4H PRN ORAL SBP>160 02/14/17 15:15 03/16/17 15:14 Dextrose (Dextrose 50%) STAT PRN IV Hypoglycemia 02/15/17 10:15 03/17/17 10:14 Divalproex Sodium (Depakote ER) 750 mg BEDTIME ORAL 02/15/17 21:00 03/17/17 20:59 02/17/17 21:38 Heparin Sodium (Porcine) (Heparin 5000 units/ml) 5,000 units EVERY 12 HOURS SUBQ 02/14/17 21:00 03/16/17 20:59 02/17/17 21:40 Insulin Aspart (NovoLOG) BEFORE MEALS AND HS SUBQ 02/14/17 17:00 03/16/17 16:59 02/17/17 21:41 Insulin Aspart (NovoLOG) 2 units NOVOTIAC SUBQ 02/15/17 11:50 03/17/17 11:49 02/17/17 18:54 Insulin Detemir (Levemir) 10 units DAILY SUBQ 02/15/17 10:15 03/17/17 10:14 02/17/17 08:32 Ketorolac Tromethamine (Toradol 30mg) 30 mg Q6H PRN IV moderate pain 4-6 02/14/17 15:15 02/19/17 15:14 Morphine Sulfate (Morphine Sulfate) 2 mg Q4H PRN IVP severe pain 7-10 02/14/17 15:15 02/21/17 15:14 Mupirocin (Bactroban Oint) 1 applic THREE TIMES A DAY TOPIC 02/17/17 09:00 02/21/17 18:01 Nitroglycerin (Ntg) 0.4 mg Q5M X 3 DOSES PRN SL Prn Chest Pain 02/14/17 15:15 03/16/17 15:14 Ondansetron HCl (Zofran) 4 mg Q6H PRN IVP Nausea & Vomiting 02/14/17 15:15 03/16/17 15:14 Pantoprazole (Protonix) 40 mg DAILY ORAL 02/15/17 09:00 03/17/17 08:59 02/17/17 08:16 Polyethylene Glycol (Miralax) 17 gm HSPRN PRN ORAL Constipation 02/14/17 15:15 03/16/17 15:14 Sodium Chloride (Sodium Chloride 1000ml bag) 1,000 ml @ 100 mls/hr Q10H IVLG 02/14/17 18:00 03/16/17 17:59 02/14/17 18:58 Sucralfate 1 gm 1 gm FOUR TIMES A DAY ORAL 02/14/17 21:00 03/16/17 20:59 02/17/17 21:38 Temazepam (Restoril) 15 mg HSPRN PRN ORAL Insomnia 02/14/17 15:15 02/21/17 15:14 02/17/17 21:38 MILA LAINEZ Feb 17, 2017 23:26
[2017-02-18] VITALS: BP 91/57
[2017-02-18] MEDS: NovoLOG Insulin Flexpen SUBQ SCH ×4 (06:30→11:45)
--- NOTE | 2017-02-18 06:30 | General Progress Note ---
Assessment/Plan Problem List: (1) Diabetes ICD Codes: E11.9 - Type 2 diabetes mellitus without complications SNOMED: 32338963 Qualifiers: Qualified Codes: E10.649 - Type 1 diabetes mellitus with hypoglycemia without coma (2) Altered mental status ICD Codes: R41.82 - Altered mental status, unspecified SNOMED: 118746299 (3) Anemia ICD Codes: D64.9 - Anemia, unspecified SNOMED: 808302910 (4) Seizure disorder ICD Codes: G40.909 - Epilepsy, unspecified, not intractable, without status epilepticus SNOMED: 108328442 (5) Gastroparesis due to DM ICD Codes: E11.43 - Type 2 diabetes mellitus with diabetic autonomic (poly) neuropathy; K31.84 - Gastroparesis SNOMED: 63901247, 711885697 (6) Abnormal white blood cell (WBC) count ICD Codes: D72.9 - Disorder of white blood cells, unspecified SNOMED: 761088753 Assessment/Plan glucose values elevated increase Levemir 10 to 15 units daily increase Novolog 2 to 4 units ac tid + SSI Subjective ROS Limited/Unobtainable: Yes Allergies: Coded Allergies: No Known Allergies (Verified , NONE, 10/30/05) Subjective not communicating - glucose elevated yesterday Objective Last 24 Hour Vital Signs Date Time Temp Pulse Resp B/P Pulse Ox O2 Delivery O2 Flow Rate FiO2 02/18/17 00:00 98.1 89 18 91/57 96 Room Air 02/17/17 20:00 97.7 95 19 118/87 100 Room Air 02/17/17 16:00 100.2 104 17 143/98 99 Room Air 02/17/17 12:00 97.0 109 20 122/89 100 Room Air 02/17/17 08:16 100 122/87 02/17/17 08:00 97.7 95 20 122/87 100 Room Air Intake and Output 02/17/17 02/18/17 19:00 07:00 Intake Total 400 ml 360 ml Balance 400 ml 360 ml Intake Oral 400 ml 360 ml # Voids 2 3 Laboratory Tests 02/17/17 09:42: White Blood Count 7.5, Red Blood Count 3.22L, Hemoglobin 9.6L, Hematocrit 29.8L , Mean Corpuscular Volume 92, Mean Corpuscular Hemoglobin 29.7, Mean Corpuscular Hemoglobin Concent 32.2, Red Cell Distribution Width 13.9, Platelet Count 300, Mean Platelet Volume 7.0, Neutrophils (%) (Auto) 46.8, Lymphocytes (% ) (Auto) 45.4H, Monocytes (%) (Auto) 4.6, Eosinophils (%) (Auto) 2.5, Basophils (%) (Auto) 0.7, Sodium Level 136, Potassium Level 4.7, Chloride Level 96L, Carbon Dioxide Level 27, Anion Gap 13, Blood Urea Nitrogen 16, Creatinine 1.1H, Estimat Glomerular Filtration Rate > 60, Glucose Level 483H, Calcium Level 8.7 02/17/17 17:52: Glucose Level 507*H Height (Feet): 5 Height (Inches): 4.00 Weight (Pounds): 130 General Appearance: no apparent distress Neck: normal alignment Cardiovascular: regular rhythm Respiratory/Chest: lungs clear Abdomen: normal bowel sounds Objective Current Medications Medications (Trade) Dose Ordered Sig/Mateo Route PRN Reason Start Time Stop Time Status Last Admin Dose Admin Acetaminophen (Tylenol) 650 mg Q4H PRN ORAL fever 02/14/17 15:15 03/16/17 15:14 Al Hydroxide/Mg Hydroxide (Mylanta II) 30 ml Q6H PRN ORAL dyspepsia 02/14/17 15:15 03/16/17 15:14 Albuterol/ Ipratropium (DuoNeb 0.5-3(2.5)mg/3ml) 3 ml Q4H PRN HHN Shortness of Breath 02/14/17 15:15 02/19/17 15:14 Amlodipine Besylate (Norvasc) 5 mg DAILY ORAL 02/15/17 09:00 03/17/17 08:59 02/17/17 08:16 Clonidine HCl (Catapres) 0.1 mg Q4H PRN ORAL SBP>160 02/14/17 15:15 03/16/17 15:14 Dextrose (Dextrose 50%) STAT PRN IV Hypoglycemia 02/15/17 10:15 03/17/17 10:14 Divalproex Sodium (Depakote ER) 750 mg BEDTIME ORAL 02/15/17 21:00 03/17/17 20:59 02/17/17 21:38 Heparin Sodium (Porcine) (Heparin 5000 units/ml) 5,000 units EVERY 12 HOURS SUBQ 02/14/17 21:00 03/16/17 20:59 02/17/17 21:40 Insulin Aspart (NovoLOG) BEFORE MEALS AND HS SUBQ 02/14/17 17:00 03/16/17 16:59 02/17/17 21:41 Insulin Aspart (NovoLOG) 2 units NOVOTIAC SUBQ 02/15/17 11:50 03/17/17 11:49 02/17/17 18:54 Insulin Detemir (Levemir) 10 units DAILY SUBQ 02/15/17 10:15 03/17/17 10:14 02/17/17 08:32 Ketorolac Tromethamine (Toradol 30mg) 30 mg Q6H PRN IV moderate pain 4-6 02/14/17 15:15 02/19/17 15:14 Morphine Sulfate (Morphine Sulfate) 2 mg Q4H PRN IVP severe pain 7-10 02/14/17 15:15 02/21/17 15:14 Mupirocin (Bactroban Oint) 1 applic THREE TIMES A DAY TOPIC 02/17/17 09:00 02/21/17 18:01 Nitroglycerin (Ntg) 0.4 mg Q5M X 3 DOSES PRN SL Prn Chest Pain 02/14/17 15:15 03/16/17 15:14 Ondansetron HCl (Zofran) 4 mg Q6H PRN IVP Nausea & Vomiting 02/14/17 15:15 03/16/17 15:14 Pantoprazole (Protonix) 40 mg DAILY ORAL 02/15/17 09:00 03/17/17 08:59 02/17/17 08:16 Polyethylene Glycol (Miralax) 17 gm HSPRN PRN ORAL Constipation 02/14/17 15:15 03/16/17 15:14 Sodium Chloride (Sodium Chloride 1000ml bag) 1,000 ml @ 100 mls/hr Q10H IVLG 02/14/17 18:00 03/16/17 17:59 02/14/17 18:58 Sucralfate 1 gm 1 gm FOUR TIMES A DAY ORAL 02/14/17 21:00 03/16/17 20:59 02/17/17 21:38 Temazepam (Restoril) 15 mg HSPRN PRN ORAL Insomnia 02/14/17 15:15 02/21/17 15:14 02/17/17 21:38 Item Value Date Time Bedside Blood Glucose Critically High Result 02/17/17 2141 Bedside Blood Glucose 507 mg/dl H 02/17/17 1854 Bedside Blood Glucose 495 mg/dl H 02/17/17 1131 Bedside Blood Glucose 447 mg/dl H 02/17/17 0832 FRANCES BRADLEY 28, 2017 06:30
[2017-02-18 07:22] LABS: MEAN CORPUSCULAR HEMOGLOBIN 29.8 PG (27.0-31.0); MEAN CORPUSCULAR HGB CONC 32.8 G/DL (32.0-36.0); MEAN CORPUSCULAR VOLUME 91 FL (80-99); MEAN PLATELET VOLUME 6.6 FL (6.5-10.1); PLATELET COUNT 294 K/UL (150-450); RED BLOOD COUNT 3.16 M/UL (4.20-5.40); RED CELL DISTRIBUTION WIDTH 13.8 % (11.6-14.8); WHITE BLOOD COUNT 7.4 K/UL (4.8-10.8)
--- NOTE | 2017-02-18 07:23 | General Progress Note ---
Assessment/Plan Problem List: (1) Seizure disorder ICD Codes: G40.909 - Epilepsy, unspecified, not intractable, without status epilepticus SNOMED: 740791122 (2) HTN (hypertension) ICD Codes: I10 - Essential (primary) hypertension SNOMED: 54843989 (3) Intractable nausea and vomiting ICD Codes: R11.2 - Nausea with vomiting, unspecified SNOMED: 064791335, 961859072 (4) Abnormal white blood cell (WBC) count ICD Codes: D72.9 - Disorder of white blood cells, unspecified SNOMED: 018851606 (5) Altered mental status ICD Codes: R41.82 - Altered mental status, unspecified SNOMED: 791577243 (6) Diabetes ICD Codes: E11.9 - Type 2 diabetes mellitus without complications SNOMED: 80627094 Qualifiers: Qualified Codes: E10.649 - Type 1 diabetes mellitus with hypoglycemia without coma (7) Hypoglycemia ICD Codes: E16.2 - Hypoglycemia, unspecified SNOMED: 843488093 (8) Leukocytosis ICD Codes: D72.829 - Elevated white blood cell count, unspecified SNOMED: 397931288, 266945992 Qualifiers: Qualified Codes: D72.823 - Leukemoid reaction (9) Gastroparesis due to DM ICD Codes: E11.43 - Type 2 diabetes mellitus with diabetic autonomic (poly) neuropathy; K31.84 - Gastroparesis SNOMED: 96057780, 383103621 Status: stable, progressing, tolerating diet Assessment/Plan ot pt diet bp bs control cbc bmp am dc plan Subjective Constitutional: Reports: weakness Allergies: Coded Allergies: No Known Allergies (Verified , NONE, 10/30/05) All Systems: reviewed and negative except above Subjective sl agitated Objective Last 24 Hour Vital Signs Date Time Temp Pulse Resp B/P Pulse Ox O2 Delivery O2 Flow Rate FiO2 02/18/17 00:00 98.1 89 18 91/57 96 Room Air 02/17/17 20:00 97.7 95 19 118/87 100 Room Air 02/17/17 16:00 100.2 104 17 143/98 99 Room Air 02/17/17 12:00 97.0 109 20 122/89 100 Room Air 02/17/17 08:16 100 122/87 02/17/17 08:00 97.7 95 20 122/87 100 Room Air Intake and Output 02/17/17 02/18/17 19:00 07:00 Intake Total 400 ml 360 ml Balance 400 ml 360 ml Intake Oral 400 ml 360 ml # Voids 2 5 Laboratory Tests 02/17/17 09:42: White Blood Count 7.5, Red Blood Count 3.22L, Hemoglobin 9.6L, Hematocrit 29.8L , Mean Corpuscular Volume 92, Mean Corpuscular Hemoglobin 29.7, Mean Corpuscular Hemoglobin Concent 32.2, Red Cell Distribution Width 13.9, Platelet Count 300, Mean Platelet Volume 7.0, Neutrophils (%) (Auto) 46.8, Lymphocytes (% ) (Auto) 45.4H, Monocytes (%) (Auto) 4.6, Eosinophils (%) (Auto) 2.5, Basophils (%) (Auto) 0.7, Sodium Level 136, Potassium Level 4.7, Chloride Level 96L, Carbon Dioxide Level 27, Anion Gap 13, Blood Urea Nitrogen 16, Creatinine 1.1H, Estimat Glomerular Filtration Rate > 60, Glucose Level 483H, Calcium Level 8.7 02/17/17 17:52: Glucose Level 507*H 02/18/17 06:00: White Blood Count [Pending], Red Blood Count [Pending], Hemoglobin [Pending], Hematocrit [Pending], Mean Corpuscular Volume [Pending], Mean Corpuscular Hemoglobin [Pending], Mean Corpuscular Hemoglobin Concent [Pending], Red Cell Distribution Width [Pending], Platelet Count [Pending], Mean Platelet Volume [ Pending], Neutrophils (%) (Auto) [Pending], Lymphocytes (%) (Auto) [Pending], Monocytes (%) (Auto) [Pending], Eosinophils (%) (Auto) [Pending], Basophils (%) (Auto) [Pending], Sodium Level [Pending], Potassium Level [Pending], Chloride Level [Pending], Carbon Dioxide Level [Pending], Blood Urea Nitrogen [Pending], Creatinine [Pending], Estimat Glomerular Filtration Rate [Pending], Glucose Level [Pending], Calcium Level [Pending] Height (Feet): 5 Height (Inches): 4.00 Weight (Pounds): 130 General Appearance: confused EENT: normal ENT inspection Neck: normal alignment Cardiovascular: normal peripheral pulses, normal rate, regular rhythm Respiratory/Chest: chest wall non-tender, lungs clear, normal breath sounds Abdomen: normal bowel sounds, non tender, soft Extremities: normal inspection Edema: no edema noted Arm (L), no edema noted Arm (R), no edema noted Leg (L), no edema noted Leg (R), no edema noted Pedal (L), no edema noted Pedal (R), no edema noted Generalized Neurologic: responsive, motor weakness Skin: normal pigmentation, warm/dry ENOCH GONZALEZ Feb 18, 2017 07:23
[2017-02-18 07:41] LABS: ANION GAP 16 (5-15); CALCIUM 8.6 mg/dL (8.6-10.2); CARBON DIOXIDE 28 mEQ/L (20-30); CHLORIDE 96 mEQ/L (98-107); GLOMERULAR FILTRATION RATE > 60 mL/min (>60); HEMOLYSIS 5; POTASSIUM 3.7 mEQ/L (3.4-4.9); SODIUM 140 mEQ/L (135-145)
[2017-02-18 08:00] VITALS: BP 118/86
[2017-02-18] MEDS: Sucralfate 1gm tab ORAL SCH (08:01)
[2017-02-18] MEDS: Heparin 5000 units/ml inj SUBQ SCH (08:03)
[2017-02-18 08:35] LABS: BAND NEUTROPHILS % (MANUAL) 0 % (0-8); BASOPHILS % (MANUAL) 1 % (0-2); EOSINOPHILS % (MANUAL) 3 % (0-3); LYMPHOCYTES % (MANUAL) 60 % (20-45); NEUTROPHILS % (MANUAL) 33 % (45-75); PLATELET ESTIMATE ADEQUATE; PLATELET MORPHOLOGY NORMAL; TOTAL CELLS COUNTED 100
[2017-02-18 08:36] LABS: HYPOCHROMASIA 1+
[2017-02-18] MEDS ORDERED: Levemir Flexpen SUBQ SCH (09:00)
[2017-02-18 13:19] LABS: CREATININE RANDOM URINE 33.4 mg/dL (Not Estab.)
[2017-02-18] MEDS ORDERED: DIVALPROEX SOD500 M2 PO (13:22)
[2017-02-18] MEDS ORDERED: DEPAKOTE ER250 MG ORAL (13:25)
[2017-02-18] MEDS ORDERED: LANTUS SOL100 UNIT/1 SUBQ ×2 (13:26→13:29)
[2017-02-18] MEDS ORDERED: HUMALOG100 UNIT/4 SUBQ ×2 (13:27→13:30)
--- NOTE | 2017-02-19 00:09 | Progress Note ---
DATE: 02/18/2017 SUBJECTIVE: The patient was found in bed, no acute distress. Calm and cooperative. No behavior issues. There have not been any anxiety or agitation. The patient has been compliant with medications. We discussed her taking medication as prescribed. OBJECTIVE: MENTAL STATUS EXAMINATION: The patient is alert and oriented times self, place, and situation. Neutral affect is constricted. Congruent with mood. Thought process is concrete. Thought content, there is no suicidal or homicidal ideation. ASSESSMENT: 1. Psychotic disorder. 2. Developmental disabilities. 3. Diabetes mellitus. PLAN: The patient will be continued on her current medication, Depakote 750 mg at bedtime. She will be given upon discharge. Jing Jaime M.D. DR: Katrina JOB#: [id number] CC:
--- NOTE | 2017-02-19 20:35 | Discharge Summary ---
Discharge Summary Hospital Course Date of Admission Feb 14, 2017 at 14:00 Date of Discharge Feb 18, 2017 at 14:32 Admitting Diagnosis hypoglycemia HPI Amaya Wallis is a 41 year old female who was admitted on Feb 14, 2017 at 14: 00 for Hypoglycemia Hospital Course [id number] Discharge Discharge Disposition Patient was discharged to Home with Discharge Diagnoses: Estefania Balderas NP Feb 19, 2017 20:35
--- NOTE | 2017-02-20 03:18 | Discharge Summary 2 SIG ---
DATE OF ADMISSION: 02/14/2017 DATE OF DISCHARGE: 02/18/2017 CONSULTANTS: 1. Bertin Alejo M.D. 2. Sharmila Poole M.D. 3. Fred Paz M.D. 4. Jing Jaime M.D. BRIEF HOSPITAL COURSE: The patient is a 41-year-old female, who was just discharged from the hospital and has not been taking her medications presented again to ED complaining of hyperglycemia and weakness. The patient was apparently at home with a visiting nurse and the patient was altered. EMS was called. She has been noncompliant with her medications. On evaluation at ED, she initially presented with hypoglycemia and better post glucagon injection. She had a central line placed on the right femoral. She was seen by Dr. Alejo. The patient was not in diabetic acidosis and was resumed on Levemir with NovoLog sliding scale. Glucose was monitored. Insulin was adjusted and was given diabetic education and stressed compliance with medications. She was also followed by Dr. Poole for evaluation of proteinuria and abnormal electrolytes. Proteinuria secondary to diabetic nephropathy and hypertensive nephrosclerosis. She was given IV hydration. Advised to avoid NSAIDs. Dr. Jaime was consulted. On evaluation, the patient was uncooperative and easily agitated and has been requesting to be discharged. The patient unable to understand the process, communicate, nor associate information that is given to her in regards to medical condition. She was assessed to lack the capacity to leave against medical advice and was started on mood stabilizer, Depakote ER 750 mg nightly. Blood glucose improved. The patient was eventually discharged home with home health. FINAL DIAGNOSES: 1. Diabetes mellitus. 2. Acute toxic metabolic encephalopathy. 3. Episode of hypoglycemia. 4. Gastroparesis due to diabetes mellitus. 5. Psychotic disorder. 6. Seizure disorder. 7. Hypertension. 8. Uncontrolled diabetes mellitus. 9. Noncompliance with medication. 10. Proteinuria. Brandon Arana D.O. I have been assigned to dictate discharge summary on this account and I was not involved in the patient's management. Estefania Balderas N.P. DR: Geovany JOB#: [id number] CC: ALICIA
== END 2017-02-18 14:32 | disposition home health service (06) | DRG 420 ==
LOC: ENRESERVTM → ENRESERVDT → EDBD 10:22 → EMR 10:46 → 4E 14:00 → EDBEDREQ 17:03
PROC: 06HM33Z Insertion of Infusion Device into Right Femoral Vein, Percutaneous Approach (ICD-10-PCS; principal; 2017-02-14)
DX: E10.649 Type 1 diabetes mellitus with hypoglycemia without coma (principal); G92 Toxic encephalopathy; K31.84 Gastroparesis; E10.43 Type 1 diabetes mellitus with diabetic autonomic (poly)neuropathy; E10.21 Type 1 diabetes mellitus with diabetic nephropathy; G40.909 Epilepsy, unspecified, not intractable, without status epilepticus; Z91.19 Patient's noncompliance with other medical treatment and regimen; K21.9 Gastro-esophageal reflux disease without esophagitis; F17.200 Nicotine dependence, unspecified, uncomplicated; F29 Unspecified psychosis not due to a substance or known physiological condition; E86.0 Dehydration; F39 Unspecified mood [affective] disorder; D64.9 Anemia, unspecified; F79 Unspecified intellectual disabilities; I12.9 Hypertensive chronic kidney disease with stage 1 through stage 4 chronic kidney disease, or unspecified chronic kidney disease; N18.9 Chronic kidney disease, unspecified
CPT/HCPCS: 36415; 71010; 80048; 80053; 80300; 81003; 82043; 82044; 82550; 82570; 82947; 82962; 83690; 83880; 84300; 84484; 85007; 85025; 85610; 85730; 87081; 93005; 97803; J1815; S5561

== ENCOUNTER 2017-02-27 10:36 | Inpatient (IN) | payer MEDICAID ==
[~2017-02-27] VITALS: Ht 167.6 cm; Wt 63.5 kg
[~2017-02-27 10:36] MED LIST changes: +CALCIUM600 M1 PO; +DEPAKOTE ER250 MG ORAL; +DIVALPROEX SOD500 M2 PO; +HUMALOG100 UNIT/4 SUBQ; +LANTUS SOL100 UNIT/1 SUBQ; +SENNA8.6 M2 PO; +TYLENOL EXTRA500 MG ORAL; +VITAMIN B-1100 MG ORAL; +VITAMIN D1000 UNI1 ORAL
[2017-02-27 11:37] LABS: BASOPHILS % (AUTO) 0.7 % (0.0-2.0); EOSINOPHILS % (AUTO) 1.1 % (0.0-3.0); LYMPHOCYTES % (AUTO) 19.6 % (20.0-45.0); MEAN CORPUSCULAR HEMOGLOBIN 29.3 PG (27.0-31.0); MEAN CORPUSCULAR VOLUME 95 FL (80-99); MEAN PLATELET VOLUME 9.6 FL (6.5-10.1); MONOCYTES % (AUTO) 6.5 % (1.0-10.0); PLATELET COUNT 246 K/UL (150-450); RED BLOOD COUNT 4.15 M/UL (4.20-5.40); RED CELL DISTRIBUTION WIDTH 14.3 % (11.6-14.8); WHITE BLOOD COUNT 14.9 K/UL (4.8-10.8)
--- NOTE | 2017-02-27 12:02 | Emergency Room Report ---
History of Present Illness General Chief Complaint: General Complaint Source: Patient, Medical Record Present Illness HPI Patient was found to be hypoglycemic Presents with complaints of altered mental status She reports that this has happened to her several times in the past Patient takes insulin reports that she did not eat At this time is awake alert denies any chest pain or shortness of breath denies any back or flank pain denies any recent fevers Allergies: Coded Allergies: No Known Allergies (Verified , NONE, 10/30/05) Patient History Past Medical History: see triage record Pertinent Family History: none Last Menstrual Period: last month Now: No Reviewed Nursing Documentation: PMH: Agreed, PSxH: Agreed Nursing Documentation-PMH Past Medical History: No History, Except For Hx Cardiac Problems: Yes Hx Hypertension: Yes Hx Diabetes: Yes Hx Cancer: No Hx Gastrointestinal Problems: Yes - abdominal pain Hx Neurological Problems: Yes Hx Seizures: Yes Hx Vertigo: Yes Hx Dizziness: Yes Hx Headaches: Yes Hx Weakness: Yes Hx Fatigue: Yes Hx Neurologic Surgery: No Review of Systems All Other Systems: negative except mentioned in HPI Physical Exam Vital Signs Date Time Temp Pulse Resp B/P Pulse Ox O2 Delivery O2 Flow Rate FiO2 02/27/17 10:35 75 16 110/80 98 Room Air Sp02 EP Interpretation: reviewed, normal General Appearance: well appearing, no apparent distress Head: normocephalic, atraumatic Eyes: bilateral eye EOMI, bilateral eye PERRL ENT: hearing grossly normal, normal pharynx, TMs + canals normal, uvula midline Neck: full range of motion, supple, no meningismus, no bony tend Respiratory: lungs clear, normal breath sounds, no rhonchi, no respiratory distress, no retraction, no accessory muscle use Cardiovascular #1: normal peripheral pulses, regular rate, rhythm, no edema, no gallop, no JVD, no murmur Gastrointestinal: normal bowel sounds, non tender, soft, no mass, no organomegaly, non-distended, no guarding, no hernia, no pulsatile mass, no rebound Genitourinary: no CVA tenderness Musculoskeletal: normal inspection Neurologic: oriented x3, responsive, international logistics 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 III-XII nml as tested, motor strength/ tone normal, sensory intact Psychiatric: mood/affect normal Skin: normal color, no rash, warm/dry, palpation normal Lymphatic: normal inspection, no adenopathy Medical Decision Making Diagnostic Impression: Primary Impression: Hypoglycemia Additional Impression: Labile blood glucose ER Course Patient initially was treated for the hypoglycemia At this time having elevated glucose and showing signs of extremely labile blood glucose Patient was further hydrated she has had recent admission for similar At this time requires further inpatient care Labs Test 02/27/17 11:30 White Blood Count 14.9 K/UL (4.8-10.8) Red Blood Count 4.15 M/UL (4.20-5.40) Hemoglobin 12.2 G/DL (12.0-16.0) Hematocrit 39.3 % (37.0-47.0) Mean Corpuscular Volume 95 FL (80-99) Mean Corpuscular Hemoglobin 29.3 PG (27.0-31.0) Mean Corpuscular Hemoglobin Concent 31.0 G/DL (32.0-36.0) Red Cell Distribution Width 14.3 % (11.6-14.8) Platelet Count 246 K/UL (150-450) Mean Platelet Volume 9.6 FL (6.5-10.1) Neutrophils (%) (Auto) 72.0 % (45.0-75.0) Lymphocytes (%) (Auto) 19.6 % (20.0-45.0) Monocytes (%) (Auto) 6.5 % (1.0-10.0) Eosinophils (%) (Auto) 1.1 % (0.0-3.0) Basophils (%) (Auto) 0.7 % (0.0-2.0) Sodium Level 142 mEQ/L (135-145) Potassium Level 3.2 mEQ/L (3.4-4.9) Chloride Level 99 mEQ/L (98-107) Carbon Dioxide Level 25 mEQ/L (20-30) Anion Gap 18 (5-15) Blood Urea Nitrogen 14 mg/dL (7-23) Creatinine 1.1 mg/dL (0.5-0.9) Estimat Glomerular Filtration Rate > 60 mL/min (>60) Glucose Level 67 mg/dL (74-106) Calcium Level 9.5 mg/dL (8.6-10.2) Total Bilirubin 0.4 mg/dL (0.0-1.2) Aspartate Amino Transf (AST/SGOT) 18 U/L (5-40) Alanine Aminotransferase (ALT/SGPT) 7 U/L (3-33) Alkaline Phosphatase 117 U/L (35-104) Total Protein 8.0 g/dL (6.6-8.7) Albumin 4.3 g/dL (3.5-5.2) Globulin 3.7 g/dL Albumin/Globulin Ratio 1.1 (1.0-2.7) Lipase 10 U/L (< 60) Rhythm Strip Diag. Results EP Interpretation: yes Rate: 77 Rhythm: NSR, no PVC's, no ectopy Last Vital Signs Date Time Temp Pulse Resp B/P Pulse Ox O2 Delivery O2 Flow Rate FiO2 02/27/17 10:35 75 16 110/80 98 Room Air Status: improved Disposition: ADMITTED INPATIENT Condition: Serious SOPHY GARDNER D.O. Feb 27, 2017 12:02
[2017-02-27 12:05] LABS: ALANINE AMINOTRANSFERASE 7 U/L (3-33); ALBUMIN/GLOBULIN RATIO 1.1 (1.0-2.7); ANION GAP 18 (5-15); ASPARTATE AMINO TRANSFERASE 18 U/L (5-40); CALCIUM 9.5 mg/dL (8.6-10.2); CARBON DIOXIDE 25 mEQ/L (20-30); CHLORIDE 99 mEQ/L (98-107); CREATININE 1.1 mg/dL (0.5-0.9); GLOMERULAR FILTRATION RATE > 60 mL/min (>60); HEMOLYSIS 10; LIPASE 10 U/L (< 60); POTASSIUM 3.2 mEQ/L (3.4-4.9); SODIUM 142 mEQ/L (135-145)
[2017-02-27] MEDS ORDERED: DuoNeb 0.5-3(2.5)mg/3ml neb HHN PRN (15:00)
[2017-02-27] MEDS ORDERED: Morphine Sulfate 2mg/ml Inj IVP PRN (15:00)
[2017-02-27] MEDS ORDERED: Ketorolac 30mg Inj IV PRN (15:00)
[2017-02-27] MEDS ORDERED: Miralax 17gm pkt ORAL PRN (15:00)
[2017-02-27] MEDS ORDERED: Nitroglycerin Subl 0.4mg tab (Bottle Of 25) SL PRN (15:00)
[2017-02-27] MEDS ORDERED: Mylanta II UD 30ml ORAL PRN (15:00)
[2017-02-27 16:14] LABS: APPEARANCE,URINE CLEAR; KETONES,URINE NEGATIVE (NEGATIVE); LEUKOCYTE ESTERASE ,URINE NEGATIVE (NEGATIVE); NITRITE,URINE NEGATIVE (NEGATIVE); PH,URINE 5 (4.5-8.0); PROTEIN,URINE 1+ (NEGATIVE); UROBILINOGEN,URINE NORMAL MG/DL (0.0-1.0)
[2017-02-27 16:27] LABS: BACTERIA,URINE FEW /HPF; RBC,URINE 0-2 /HPF (0 - 2); SQUAMOUS EPITHELIAL CELL,UR FEW /LPF (NONE/OCC)
[2017-02-27 18:00] VITALS: BP 129/88
[2017-02-27] MEDS: Heparin 5000 units/ml inj SUBQ SCH (19:56)
[2017-02-27] MEDS ORDERED: Depakote ER 500mg tab ORAL SCH (21:00)
[2017-02-27] MEDS ORDERED: NovoLOG Insulin Flexpen SUBQ SCH (21:00)
--- NOTE | 2017-02-27 23:35 | Consultation ---
History of Present Illness General Chief Complaint: General Complaint Present Illness Allergies: Coded Allergies: No Known Allergies (Verified , NONE, 10/30/05) Medication History Scheduled Amlodipine Besylate (Norvasc), 5 MG ORAL DAILY, (Reported) Calcium Carbonate (Calcium), 600 MG PO DAILY, (Reported) Cholecalciferol (Vitamin D3)* (Vitamin D*), 1,000 UNIT ORAL DAILY, (Reported) Divalproex Sodium (Divalproex Sodium Er), 500 MG PO BEDTIME, (Reported) Divalproex Sodium* (Depakote Er*), 250 MG ORAL BEDTIME, (Reported) Insulin Detemir (Levemir), 0 SUBQ BEDTIME, (Reported) Insulin Glargine (Lantus), 0 SUBQ DAILY, (Reported) Insulin Glargine (Lantus), 15 SUBQ DAILY, (Reported) Insulin Lispro (Humalog), 0 SUBQ BEFORE MEALS, (Reported) Insulin Lispro (Humalog), 5 SUBQ AC, (Reported) Pantoprazole* (Protonix*), 40 MG ORAL DAILY, (Reported) Ranitidine Hcl* (Zantac*), 150 MG ORAL TWICE A DAY, (Reported) Sucralfate* (Carafate*), 1 GM ORAL FOUR TIMES A DAY, (Reported) Thiamine Hcl* (Vitamin B-1*), 100 MG ORAL DAILY, (Reported) Scheduled PRN Insulin Aspart (Novolog Flexpen), SUBQ TID PRN for SLIDING SCALE, (Reported) Sennosides (Senna), 8.6 MG PO DAILY PRN for Constipation, (Reported) Patient History Healthcare decision maker Resuscitation status Full Code Advanced Directive on File Physical Exam Last 24 Hour Vital Signs Date Time Temp Pulse Resp B/P Pulse Ox O2 Delivery O2 Flow Rate FiO2 02/27/17 20:28 97.5 02/27/17 18:00 97.5 87 22 129/88 100 Room Air 02/27/17 16:38 16 116/74 98 Room Air 02/27/17 10:35 75 16 110/80 98 Room Air Laboratory Tests Test 02/27/17 11:30 02/27/17 16:00 White Blood Count 14.9 K/UL (4.8-10.8) H Red Blood Count 4.15 M/UL (4.20-5.40) L Hemoglobin 12.2 G/DL (12.0-16.0) Hematocrit 39.3 % (37.0-47.0) Mean Corpuscular Volume 95 FL (80-99) Mean Corpuscular Hemoglobin 29.3 PG (27.0-31.0) Mean Corpuscular Hemoglobin Concent 31.0 G/DL (32.0-36.0) L Red Cell Distribution Width 14.3 % (11.6-14.8) Platelet Count 246 K/UL (150-450) Mean Platelet Volume 9.6 FL (6.5-10.1) Neutrophils (%) (Auto) 72.0 % (45.0-75.0) Lymphocytes (%) (Auto) 19.6 % (20.0-45.0) L Monocytes (%) (Auto) 6.5 % (1.0-10.0) Eosinophils (%) (Auto) 1.1 % (0.0-3.0) Basophils (%) (Auto) 0.7 % (0.0-2.0) Sodium Level 142 mEQ/L (135-145) Potassium Level 3.2 mEQ/L (3.4-4.9) L Chloride Level 99 mEQ/L (98-107) Carbon Dioxide Level 25 mEQ/L (20-30) Anion Gap 18 (5-15) H Blood Urea Nitrogen 14 mg/dL (7-23) Creatinine 1.1 mg/dL (0.5-0.9) H Estimat Glomerular Filtration Rate > 60 mL/min (>60) Glucose Level 67 mg/dL (74-106) L Calcium Level 9.5 mg/dL (8.6-10.2) Total Bilirubin 0.4 mg/dL (0.0-1.2) Aspartate Amino Transf (AST/SGOT) 18 U/L (5-40) Alanine Aminotransferase (ALT/SGPT) 7 U/L (3-33) Alkaline Phosphatase 117 U/L (35-104) H Total Protein 8.0 g/dL (6.6-8.7) Albumin 4.3 g/dL (3.5-5.2) Globulin 3.7 g/dL Albumin/Globulin Ratio 1.1 (1.0-2.7) Lipase 10 U/L (< 60) Urine Color Pale yellow Urine Appearance Clear Urine pH 5 (4.5-8.0) Urine Specific Primrose 1.015 (1.005-1.035) Urine Protein 1+ (NEGATIVE) H Urine Glucose (UA) 4+ (NEGATIVE) H Urine Ketones Negative (NEGATIVE) Urine Occult Blood Negative (NEGATIVE) Urine Nitrite Negative (NEGATIVE) Urine Bilirubin Negative (NEGATIVE) Urine Urobilinogen Normal MG/DL (0.0-1.0) Urine Leukocyte Esterase Negative (NEGATIVE) Urine RBC 0-2 /HPF (0 - 2) Urine WBC 2-4 /HPF (0 - 2) Urine Squamous Epithelial Cells Few /LPF (NONE/OCC) Urine Bacteria Few /HPF (NONE) Urine HCG, Qualitative Negative Height (Feet): 5 Height (Inches): 6.00 Weight (Pounds): 140 Medications Current Medications Medications (Trade) Dose Ordered Sig/Mateo Route PRN Reason Start Time Stop Time Status Last Admin Dose Admin Acetaminophen (Tylenol) 650 mg Q4H PRN ORAL fever 02/27/17 15:00 03/29/17 14:59 Al Hydroxide/Mg Hydroxide (Mylanta II) 30 ml Q6H PRN ORAL dyspepsia 02/27/17 15:00 03/29/17 14:59 Albuterol/ Ipratropium (DuoNeb 0.5-3(2.5)mg/3ml) 3 ml Q4H PRN HHN Shortness of Breath 02/27/17 15:00 03/04/17 14:59 Amlodipine Besylate (Norvasc) 5 mg DAILY ORAL 02/28/17 09:00 03/30/17 08:59 Clonidine HCl (Catapres) 0.1 mg Q4H PRN ORAL sbp more than 160 02/27/17 15:00 03/29/17 14:59 Dextrose (Dextrose 50%) STAT PRN IV Hypoglycemia 02/27/17 15:00 03/29/17 14:59 Divalproex Sodium (Depakote ER) 500 mg BEDTIME ORAL 02/27/17 21:00 03/29/17 20:59 02/27/17 19:55 Heparin Sodium (Porcine) (Heparin 5000 units/ml) 5,000 units EVERY 12 HOURS SUBQ 02/27/17 21:00 03/29/17 20:59 02/27/17 19:56 Insulin Aspart (NovoLOG) BEFORE MEALS AND HS SUBQ 02/27/17 21:00 03/29/17 20:59 02/27/17 19:57 Ketorolac Tromethamine (Toradol 30mg) 30 mg Q6H PRN IV moderate pain 4-6 02/27/17 15:00 03/04/17 14:59 Morphine Sulfate (Morphine Sulfate) 2 mg Q4H PRN IVP severe pain 7-02/27/17 15:00 03/06/17 14:59 02/27/17 19:58 Nitroglycerin (Ntg) 0.4 mg Q5M X 3 DOSES PRN SL Prn Chest Pain 02/27/17 15:00 03/29/17 14:59 Ondansetron HCl (Zofran) 4 mg Q6H PRN IVP Nausea & Vomiting 02/27/17 15:00 03/29/17 14:59 Pantoprazole (Protonix) 40 mg DAILY ORAL 02/28/17 09:00 03/30/17 08:59 Polyethylene Glycol (Miralax) 17 gm HSPRN PRN ORAL Constipation 02/27/17 15:00 03/29/17 14:59 Sennosides 8.6 mg 8.6 mg DAILYPRN PRN ORAL Constipation 02/27/17 15:00 03/29/17 14:59 Sodium Chloride (Sodium Chloride 1000ml bag) 1,000 ml @ 100 mls/hr Q10H IVLG 02/27/17 17:30 03/29/17 17:29 02/27/17 18:20 Temazepam (Restoril) 15 mg HSPRN PRN ORAL Insomnia 02/27/17 15:00 03/06/17 14:59 02/27/17 19:54 MILA LAINEZ Feb 27, 2017 23:35
[2017-02-28] MEDS ORDERED: Levemir Flexpen SUBQ SCH ×2 (00:09→21:00)
[2017-02-28 04:00] VITALS: BP 111/80
[2017-02-28] MEDS: NovoLOG Insulin Flexpen SUBQ SCH ×5 (06:30→17:06)
[2017-02-28] MEDS ORDERED: NovoLOG Insulin Flexpen SUBQ SCH (06:30)
[2017-02-28 07:18] LABS: ALANINE AMINOTRANSFERASE 8 U/L (3-33); ALBUMIN/GLOBULIN RATIO 1.1 (1.0-2.7); ANION GAP 19 (5-15); ASPARTATE AMINO TRANSFERASE 20 U/L (5-40); CALCIUM 9.2 mg/dL (8.6-10.2); CARBON DIOXIDE 24 mEQ/L (20-30); CHLORIDE 98 mEQ/L (98-107); CHOLESTEROL 172 mg/dL (< 200); CHOLESTEROL/HDL RATIO 4.5 (3.3-4.4); CREATININE 1.2 mg/dL (0.5-0.9); GLOMERULAR FILTRATION RATE > 60 mL/min (>60); HEMOLYSIS 8; LDL CHOLESTEROL (CALC.) 108 mg/dL (60-99); POTASSIUM 4.6 mEQ/L (3.4-4.9); SODIUM 141 mEQ/L (135-145); TOTAL PROTEIN 8.2 g/dL (6.6-8.7)
[2017-02-28 07:24] LABS: BASOPHILS % (AUTO) 1.6 % (0.0-2.0); EOSINOPHILS % (AUTO) 2.4 % (0.0-3.0); LYMPHOCYTES % (AUTO) 46.4 % (20.0-45.0); MEAN CORPUSCULAR HEMOGLOBIN 30.4 PG (27.0-31.0); MEAN CORPUSCULAR HGB CONC 32.6 G/DL (32.0-36.0); MEAN CORPUSCULAR VOLUME 93 FL (80-99); MEAN PLATELET VOLUME 10.4 FL (6.5-10.1); MONOCYTES % (AUTO) 4.6 % (1.0-10.0); NEUTROPHILS % (AUTO) 45.1 % (45.0-75.0); PLATELET COUNT 150 K/UL (150-450); RED BLOOD COUNT 3.83 M/UL (4.20-5.40); WHITE BLOOD COUNT 7.3 K/UL (4.8-10.8)
[2017-02-28 07:50] LABS: HEMOGLOBIN A1C 9.5 % (< 6.0)
[2017-02-28] MEDS: Heparin 5000 units/ml inj SUBQ SCH (09:00)
[2017-02-28 12:00] VITALS: BP 119/85
--- NOTE | 2017-02-28 16:13 | Pulmonology Progress Note ---
Subjective Allergies: Coded Allergies: No Known Allergies (Verified , NONE, 10/30/05) Objective Last 24 Hour Vital Signs Date Time Temp Pulse Resp B/P Pulse Ox O2 Delivery O2 Flow Rate FiO2 02/28/17 12:00 97.5 81 21 119/85 100 Room Air 02/28/17 04:00 96.9 76 21 111/80 100 Nasal Cannula 2.5 02/28/17 04:00 96.4 76 21 111/80 100 Room Air 02/27/17 20:28 97.5 02/27/17 18:00 97.5 87 22 129/88 100 Room Air 02/27/17 16:38 16 116/74 98 Room Air Intake and Output 02/27/17 02/28/17 18:59 06:59 Intake Total 700 ml 375 ml Balance 700 ml 375 ml Intake Oral 200 ml 375 ml IV Total 500 ml # Voids 3 Laboratory Tests 02/28/17 06:00: White Blood Count 7.3#, Red Blood Count 3.83L, Hemoglobin 11.7L, Hematocrit 35.7L, Mean Corpuscular Volume 93, Mean Corpuscular Hemoglobin 30.4, Mean Corpuscular Hemoglobin Concent 32.6, Red Cell Distribution Width 14.0, Platelet Count 150, Mean Platelet Volume 10.4H, Neutrophils (%) (Auto) 45.1, Lymphocytes (%) (Auto) 46.4H, Monocytes (%) (Auto) 4.6, Eosinophils (%) (Auto) 2.4, Basophils (%) (Auto) 1.6, Sodium Level 141, Potassium Level 4.6, Chloride Level 98, Carbon Dioxide Level 24, Anion Gap 19H, Blood Urea Nitrogen 18, Creatinine 1.2H, Estimat Glomerular Filtration Rate > 60, Glucose Level 26*L, Hemoglobin A1c 9.5H, Calcium Level 9.2, Total Bilirubin 0.4, Aspartate Amino Transf (AST/ SGOT) 20, Alanine Aminotransferase (ALT/SGPT) 8, Alkaline Phosphatase 115H, Total Protein 8.2, Albumin 4.3, Globulin 3.9, Albumin/Globulin Ratio 1.1, Triglycerides Level 128, Cholesterol Level 172, LDL Cholesterol 108H, HDL Cholesterol 38, Cholesterol/HDL Ratio 4.5H, Thyroid Stimulating Hormone (TSH) 1.360 Current Medications Medications (Trade) Dose Ordered Sig/Mateo Route PRN Reason Start Time Stop Time Status Last Admin Dose Admin Acetaminophen (Tylenol) 650 mg Q4H PRN ORAL fever 02/27/17 15:00 03/29/17 14:59 Al Hydroxide/Mg Hydroxide (Mylanta II) 30 ml Q6H PRN ORAL dyspepsia 02/27/17 15:00 03/29/17 14:59 Albuterol/ Ipratropium (DuoNeb 0.5-3(2.5)mg/3ml) 3 ml Q4H PRN HHN Shortness of Breath 02/27/17 15:00 03/04/17 14:59 Amlodipine Besylate (Norvasc) 5 mg DAILY ORAL 02/28/17 09:00 03/30/17 08:59 Clonidine HCl (Catapres) 0.1 mg Q4H PRN ORAL sbp more than 160 02/27/17 15:00 03/29/17 14:59 Dextrose (Dextrose 50%) STAT PRN IV Hypoglycemia 02/27/17 15:00 03/29/17 14:59 Divalproex Sodium (Depakote ER) 500 mg BEDTIME ORAL 02/27/17 21:00 03/29/17 20:59 02/27/17 19:55 Heparin Sodium (Porcine) (Heparin 5000 units/ml) 5,000 units EVERY 12 HOURS SUBQ 02/27/17 21:00 03/29/17 20:59 02/27/17 19:56 Insulin Aspart (NovoLOG) BEFORE MEALS AND HS SUBQ 02/28/17 06:30 03/30/17 06:29 02/28/17 12:01 Insulin Aspart (NovoLOG) 3 units AC+HS SUBQ 02/28/17 11:30 03/30/17 11:29 02/28/17 12:02 Insulin Detemir (Levemir) 9 units BEDTIME SUBQ 02/28/17 21:00 03/30/17 20:59 Ketorolac Tromethamine (Toradol 30mg) 30 mg Q6H PRN IV moderate pain 4-6 02/27/17 15:00 03/04/17 14:59 Morphine Sulfate (Morphine Sulfate) 2 mg Q4H PRN IVP severe pain 7-10 02/27/17 15:00 03/06/17 14:59 02/27/17 19:58 Nitroglycerin (Ntg) 0.4 mg Q5M X 3 DOSES PRN SL Prn Chest Pain 02/27/17 15:00 03/29/17 14:59 Ondansetron HCl (Zofran) 4 mg Q6H PRN IVP Nausea & Vomiting 02/27/17 15:00 03/29/17 14:59 Pantoprazole (Protonix) 40 mg DAILY ORAL 02/28/17 09:00 03/30/17 08:59 02/28/17 10:08 Polyethylene Glycol (Miralax) 17 gm HSPRN PRN ORAL Constipation 02/27/17 15:00 03/29/17 14:59 Sennosides 8.6 mg 8.6 mg DAILYPRN PRN ORAL Constipation 02/27/17 15:00 03/29/17 14:59 Sodium Chloride (Sodium Chloride 1000ml bag) 1,000 ml @ 100 mls/hr Q10H IVLG 02/27/17 17:30 03/29/17 17:29 02/27/17 18:20 Temazepam (Restoril) 15 mg HSPRN PRN ORAL Insomnia 02/27/17 15:00 03/06/17 14:59 02/27/17 19:54 MILA LAINEZ Feb 28, 2017 16:13
[2017-02-28 16:44] VITALS: BP 121/87
--- NOTE | 2017-02-28 20:58 | History and Physical Report ---
DATE OF ADMISSION: 02/27/2017 CONSULTANTS: 1. Brandon Arana D.O. 2. Pablo Early M.D. 3. Fred Paz M.D. CHIEF COMPLAINT: Weakness, lethargy, and hypoglycemia. BRIEF HISTORY: This is a 41-year-old female with a history of diabetes and presents from home to [facility] last night straight with low blood sugar. The patient has diagnosis of other weakness and . Currently, she is calm and slightly confused. No complaint however. REVIEW OF SYSTEMS: No chest pain. No shortness of breath. No nausea, vomiting, or diarrhea. PAST MEDICAL HISTORY: Includes diabetes, hypertension, seizure, and anemia. PAST SURGICAL HISTORY: None. ALLERGIES: Denies. SOCIAL HISTORY: Positive smoking. No alcohol. No intravenous drug use. FAMILY HISTORY: Noncontributory. PHYSICAL EXAMINATION: GENERAL: Calm in bed, oriented x2, in no acute distress. VITAL SIGNS: Temperature is 97, pulse 81, respirations 21, and blood pressure 119/85. CARDIOVASCULAR: No murmur. LUNGS: Distant and clear. ABDOMEN: Positive bowel sounds. Nontender. Nondistended. EXTREMITIES: No cyanosis, clubbing, or edema. NEUROLOGIC: Cranial nerves II through XII are grossly intact. Deep tendon reflexes 2+. Muscle strength 5/5. LABORATORY DATA: Initial white count is 14.9, now it is 7.3. H&H is 11 and 35. Platelets is 130,000. BMP showed initial glucose is 67. Creatinine is 1.2. Urinalysis is 4+ glucose, 1+ protein. MEDICATIONS: Include Levemir, NovoLog, Norvasc, Protonix, Depakote, heparin, Senokot, Tylenol, Morphine, MiraLax, Zofran, and Mylanta. ASSESSMENT: 1. Diabetes. 2. Hypoglycemia. 3. Psych history. 4. Hypertension. 5. Seizures. 6. Anemia. PLAN: 1. Resume home medications. 2. Blood pressure and blood sugar is in control. 3. Dietary followup. 4. Seizure control. 5. OT, PT, and dietary evaluation. 6. CBC and BMP in the morning. 7. Dr. Early and Dr. Paz to consult. 8. We will continue to follow this patient medically. Brandon Arana D.O. DR: FAVIAN JOB#: [id number] CC:
--- NOTE | 2017-03-03 10:42 | Discharge Summary ---
Discharge Summary Hospital Course Date of Admission Feb 27, 2017 at 14:25 Date of Discharge Feb 28, 2017 at 18:00 Admitting Diagnosis labile diabeties,hypoglycemia HPI Amaya Wallis is a 41 year old female who was admitted on Feb 27, 2017 at 14:25 for Labile Diabeties Hospital Course dc summary # [id number] Discharge Medications Continued Medications: Amlodipine Besylate (Norvasc) 5 Mg Tablet 5 MG ORAL DAILY, TAB Calcium Carbonate (Calcium) 600 Mg Tablet 600 MG PO DAILY, TAB Divalproex Sodium (Divalproex Sodium Er) 500 Mg Tab.er.24h 500 MG PO BEDTIME, TAB Insulin Aspart (Novolog Flexpen) 100 Unit/1 Ml Insuln.pen SUBQ TID PRN for SLIDING SCALE Insulin Detemir (Levemir) 100 Unit/1 Ml Vial 0 SUBQ BEDTIME, VIAL Insulin Lispro (Humalog) 100 Unit/1 Ml Cartridge 0 SUBQ BEFORE MEALS, #1 UNITS 0 Refills Sucralfate* (Carafate*) 1 Gm Tablet 1 GM ORAL FOUR TIMES A DAY, TAB Discharge Condition Upon Discharge: stable Discharge Disposition Patient was discharged to Home () Discharge Diagnoses: Discharge Instructions Discharge Instructions Special Instructions I have been assigned to complete a D/C Summary on this account. I was not involved in the patient management Cailin Carpenter NP (Vanchtein) Mar 03, 2017 10:42
--- NOTE | 2017-03-03 23:37 | Discharge Summary 2 SIG ---
DATE OF ADMISSION: 02/27/2017 DATE OF DISCHARGE: 02/28/2017 REASON FOR ADMISSION: 41-year-old female presented to the emergency room with hypoglycemia and altered level of consciousness, which happened to the patient in the past. She has extremely labile blood sugar and questionable compliance with medication regimen. The patient has underlying psychiatric history and unreliable in taking her medication. In the emergency department, the patient was hydrated and initially treated for hypoglycemia. Blood sugar stabilized, and the patient transferred to the floor for further management. ADMITTING DIAGNOSES: 1. Hypoglycemia. 2. Acute toxic encephalopathy secondary to hypoglycemia. 3. Labile blood glucose. HOSPITAL STAY: The patient was admitted. The patient was on the IV fluids. Initially presented with leukocytosis. Urinalysis negative. Leukocytosis resolved the next day. Potassium was replaced, (initially 3.2) and was stable. Urinalysis revealed no evidence of urinary tract infection. Hemoglobin A1c - 9.5. Lipid panel revealed borderline LDL of 108. Stable LFT. Recommended three months of therapeutic lifestyle changes, including low-fat cardiac diabetic diet and strict blood glucose control. If no improvement in lipid panel in 3 months,the patient will need to be started on the statin. Blood pressure was managed with calcium channel penelope and was stable. Seizure precautions were maintained. Depakote continued. The patient was working with physical and occupational therapists. The patient was stable for discharge. Blood sugar between 170 and 230. The patient had mild anemia, stable hemoglobin and hematocrit, closely monitor as outpatient. The patient was discharged on regimen of short and long acting insulin . Follow up with the primary medical doctor next week. Due to the rapid and unexpected improvement in patient's condition, the patient was discharged in one day. DISCHARGE DIAGNOSES: 1. Acute hypoglycemia,- resolved. 2. Acute toxic encephalopathy secondary to hypoglycemia, -resolved. 3. Diabetes mellitus, out of control with extremely labile blood glucose. 4. Hypertension. 5. Seizure disorder. 6. Anemia, 7. Hyperlipidemia. DISCHARGE MEDICATIONS: See medication reconciliation list. DISCHARGE INSTRUCTIONS: Follow up with the primary medical doctor next week. Instructed on a low-fat cardiac diabetic diet. Instructed to comply with medication regimen and instructed on signs and symptoms of hypoglycemia. Brandon Arana D.O. I have been assigned to dictate discharge summary on this account and I was not involved in the patient's management. Cailin Lewisbrennen NHafsaPHafsa DR: FRANCISCO J JOB#: [id number] CC: ALICIA
== END 2017-02-28 18:00 | disposition home or self-care (01) | DRG 420 ==
LOC: EDBD 10:36 → EDBEDREQ 13:32 → EMR 14:20 → 4W 14:25 → EDBEDREQ 16:31
DX: E11.649 Type 2 diabetes mellitus with hypoglycemia without coma (principal); R56.9 Unspecified convulsions; Z79.4 Long term (current) use of insulin; I10 Essential (primary) hypertension; D64.9 Anemia, unspecified
CPT/HCPCS: 36415; 80053; 80061; 81003; 81025; 82962; 83036; 83690; 84443; 85025; J1815; J8499

== ENCOUNTER 2017-04-12 11:08 | Inpatient (IN) | payer MEDICAID ==
[~2017-04-12] VITALS: Ht 167.6 cm; Wt 59.0 kg
[2017-04-12 11:24] VITALS: BP 127/99
[2017-04-12 11:32] VITALS: BP 155/82
[2017-04-12] MEDS ORDERED: Famotidine 20 MG/ 2ML VIAL IVP ONE (11:45)
[2017-04-12] MEDS ORDERED: Morphine Sulfate 4mg/ml Inj IVP ONE (11:45)
[2017-04-12 12:18] LABS: MEAN CORPUSCULAR HGB CONC 31.3 G/DL (32.0-36.0); MEAN CORPUSCULAR VOLUME 96 FL (80-99); MEAN PLATELET VOLUME 7.1 FL (6.5-10.1); PLATELET COUNT 210 K/UL (150-450); RED BLOOD COUNT 4.18 M/UL (4.20-5.40); RED CELL DISTRIBUTION WIDTH 14.9 % (11.6-14.8); WHITE BLOOD COUNT 18.4 K/UL (4.8-10.8)
[2017-04-12 12:49] LABS: ALBUMIN/GLOBULIN RATIO 1.1 (1.0-2.7); CALCIUM 9.9 mg/dL (8.6-10.2); CREATININE 1.3 mg/dL (0.5-0.9); GLOMERULAR FILTRATION RATE 55.3 mL/min (>60); POTASSIUM 4.4 mEQ/L (3.4-4.9); TOTAL PROTEIN 8.8 g/dL (6.6-8.7)
[2017-04-12 13:31] LABS: ANISOCYTOSIS 1+; BAND NEUTROPHILS % (MANUAL) 1 % (0-8); BASOPHILS % (MANUAL) 0 % (0-2); EOSINOPHILS % (MANUAL) 0 % (0-3); HYPOCHROMASIA 1+; LYMPHOCYTES % (MANUAL) 10 % (20-45); NEUTROPHILS % (MANUAL) 87 % (45-75); PLATELET ESTIMATE ADEQUATE; PLATELET MORPHOLOGY NORMAL; TOTAL CELLS COUNTED 100
[2017-04-12 14:10] LABS: APPEARANCE,URINE SLIGHTLY CLOUDY; KETONES,URINE 4+ (NEGATIVE); LEUKOCYTE ESTERASE ,URINE 3+ (NEGATIVE); NITRITE,URINE NEGATIVE (NEGATIVE); PH,URINE 6 (4.5-8.0); PROTEIN,URINE 3+ (NEGATIVE); UROBILINOGEN,URINE NORMAL MG/DL (0.0-1.0)
[2017-04-12 14:20] LABS: BACTERIA,URINE FEW /HPF; SQUAMOUS EPITHELIAL CELL,UR FEW /LPF (NONE/OCC); WBC,URINE 30-40 /HPF (0 - 2)
[2017-04-12] MEDS ORDERED: Miralax 17gm pkt ORAL PRN (14:30)
[2017-04-12] MEDS ORDERED: Ketorolac 30mg Inj IV PRN (14:30)
[2017-04-12] MEDS ORDERED: Nitroglycerin Subl 0.4mg tab (Bottle Of 25) SL PRN (14:30)
[2017-04-12] MEDS ORDERED: DuoNeb 0.5-3(2.5)mg/3ml neb HHN PRN (14:30)
[2017-04-12] MEDS ORDERED: cefTRIAXone 1 GM in NS 55 ML IVPB ONE (14:30)
[2017-04-12] MEDS ORDERED: Mylanta II UD 30ml ORAL PRN (14:30)
[2017-04-12 15:00] VITALS: BP 161/95
[2017-04-12] MEDS: NovoLOG Insulin Flexpen SUBQ SCH ×2 (17:22→21:47)
[2017-04-12] MEDS: Morphine Sulfate 2mg/ml Inj IVP PRN ×2 (17:23→21:44)
[2017-04-12] MEDS ORDERED: Tubing IV Secondary IV ONE (17:32)
--- NOTE | 2017-04-12 18:51 | Emergency Room Report ---
History of Present Illness General Chief Complaint: Nausea Source: Patient Present Illness HPI 41-year-old female presents to ED complaining of abdominal pain with nausea and vomiting. States symptoms started today. Patient states the pain is sharp, 10 out of 10, nonradiating. The multiple episodes of vomiting. Patient notes history of pancreatitis. Denies fevers or chills. Patient well known to [facility] has been here multiple times in the past for similar presentation. Also a diabetic which is poorly controlled. No other aggravating relieving factors. Denies any other associated symptoms Allergies: Coded Allergies: No Known Allergies (Verified , NONE, 10/30/05) Patient History Past Medical History: DM, HTN Past Surgical History: none Pertinent Family History: none Social History: Denies: alcohol use, drug use, smoking Now: No Immunizations: UTD Reviewed Nursing Documentation: PMH: Agreed, PSxH: Agreed Nursing Documentation-PMH Past Medical History: No History, Except For Hx Cardiac Problems: Yes Hx Hypertension: Yes Hx Diabetes: Yes Hx Cancer: No Hx Gastrointestinal Problems: Yes Hx Neurological Problems: Yes Hx Seizures: Yes Hx Vertigo: Yes Hx Dizziness: Yes Hx Headaches: Yes Hx Weakness: Yes Hx Fatigue: Yes Hx Neurologic Surgery: No Review of Systems All Other Systems: negative except mentioned in HPI Physical Exam Vital Signs Date Time Temp Pulse Resp B/P Pulse Ox O2 Delivery O2 Flow Rate FiO2 04/12/17 11:17 98.2 88 20 180/100 98 Room Air Sp02 EP Interpretation: reviewed, normal General Appearance: no apparent distress, alert, GCS 15, non-toxic Head: normocephalic, atraumatic Eyes: bilateral eye PERRL, bilateral eye normal inspection ENT: hearing grossly normal, normal pharynx, no angioedema, normal voice Neck: full range of motion, supple/symm/no masses Respiratory: chest non-tender, lungs clear, normal breath sounds, speaking full sentences Cardiovascular #1: regular rate, rhythm, no edema Cardiovascular #2: 2+ carotid (R), 2+ carotid (L), 2+ radial (R), 2+ radial (L) , 2+ dorsalis pedis (R), 2+ dorsalis pedis (L) Gastrointestinal: normal bowel sounds, soft, non-distended, no guarding, no rebound, tenderness Rectal: deferred Genitourinary: normal inspection, no CVA tenderness Musculoskeletal: back normal, gait/station normal, normal range of motion, non- tender Neurologic: alert, oriented x3, responsive, motor strength/tone normal, sensory intact, speech normal Psychiatric: judgement/insight normal, memory normal, mood/affect normal, no suicidal/homicidal ideation Reflexes: 3+ bicep (R), 3+ bicep (L), 3+ tricep (R), 3+ tricep (L), 3+ knee (R) , 3+ knee (L) Skin: normal color, no rash, warm/dry, well hydrated Lymphatic: no adenopathy Medical Decision Making Diagnostic Impression: Primary Impression: Gastroparesis due to DM Additional Impressions: Hyperglycemia UTI (urinary tract infection) Qualified Codes: N39.0 - Urinary tract infection, site not specified ARF (acute renal failure) Qualified Codes: N17.9 - Acute kidney failure, unspecified ER Course Hospital Course 41-year-old female presents to ED with epigastric pain with nausea and vomiting. History of pancreatitis Differential diagnoses include: pancreatitis, gastritis, gastroparesis Clinical course Patient placed on stretcher. On cardiac rn. After initial history and physical I ordered labs, IV fluids, pain meds, zofran Labs- glucose 263, Cr 1.3, Na 146, noted luekocytosis, Ua + bacteria Case discussed with Dr. Arana and he agreed to accept the patient to his service for further care and support i. I feel this is a highly complex case requiring extensive working including EKG/Rhythm strip, Xray/CT/US, Blood/urine lab work, repeat exams while in ED, and administration of strong opiates/narcotics for pain control, admission to hospital or close patient follow up. diagnosis - hyperglycemia, gastroparesis due to DM, UTI, ARF admitted to floor in serious condition Labs Test 04/12/17 12:00 04/12/17 13:34 White Blood Count 18.4 K/UL (4.8-10.8) Red Blood Count 4.18 M/UL (4.20-5.40) Hemoglobin 12.5 G/DL (12.0-16.0) Hematocrit 40.1 % (37.0-47.0) Mean Corpuscular Volume 96 FL (80-99) Mean Corpuscular Hemoglobin 30.0 PG (27.0-31.0) Mean Corpuscular Hemoglobin Concent 31.3 G/DL (32.0-36.0) Red Cell Distribution Width 14.9 % (11.6-14.8) Platelet Count 210 K/UL (150-450) Mean Platelet Volume 7.1 FL (6.5-10.1) Neutrophils (%) (Auto) % (45.0-75.0) Lymphocytes (%) (Auto) % (20.0-45.0) Monocytes (%) (Auto) % (1.0-10.0) Eosinophils (%) (Auto) % (0.0-3.0) Basophils (%) (Auto) % (0.0-2.0) Differential Total Cells Counted 100 Neutrophils % (Manual) 87 % (45-75) Lymphocytes % (Manual) 10 % (20-45) Monocytes % (Manual) 2 % (1-10) Eosinophils % (Manual) 0 % (0-3) Basophils % (Manual) 0 % (0-2) Band Neutrophils 1 % (0-8) Platelet Estimate Adequate Platelet Morphology Normal Hypochromasia 1+ Anisocytosis 1+ Sodium Level 146 mEQ/L (135-145) Potassium Level 4.4 mEQ/L (3.4-4.9) Chloride Level 92 mEQ/L (98-107) Carbon Dioxide Level 19 mEQ/L (20-30) Anion Gap 35 (5-15) Blood Urea Nitrogen 17 mg/dL (7-23) Creatinine 1.3 mg/dL (0.5-0.9) Estimat Glomerular Filtration Rate 55.3 mL/min (>60) Glucose Level 263 mg/dL (74-106) Calcium Level 9.9 mg/dL (8.6-10.2) Total Bilirubin 0.6 mg/dL (0.0-1.2) Aspartate Amino Transf (AST/SGOT) 29 U/L (5-40) Alanine Aminotransferase (ALT/SGPT) 13 U/L (3-33) Alkaline Phosphatase 141 U/L (35-104) Total Protein 8.8 g/dL (6.6-8.7) Albumin 4.7 g/dL (3.5-5.2) Globulin 4.1 g/dL Albumin/Globulin Ratio 1.1 (1.0-2.7) Lipase 7 U/L (< 60) Acetone Level Positive-small (NEGATIVE) Urine Color Pale yellow Urine Appearance Slightly cloudy Urine pH 6 (4.5-8.0) Urine Specific Matthews 1.015 (1.005-1.035) Urine Protein 3+ (NEGATIVE) Urine Glucose (UA) 4+ (NEGATIVE) Urine Ketones 4+ (NEGATIVE) Urine Occult Blood 3+ (NEGATIVE) Urine Nitrite Negative (NEGATIVE) Urine Bilirubin Negative (NEGATIVE) Urine Urobilinogen Normal MG/DL (0.0-1.0) Urine Leukocyte Esterase 3+ (NEGATIVE) Urine RBC 5-10 /HPF (0 - 2) Urine WBC 30-40 /HPF (0 - 2) Urine Squamous Epithelial Cells Few /LPF (NONE/OCC) Urine Bacteria Few /HPF (NONE) Urine HCG, Qualitative Negative Last Vital Signs Date Time Temp Pulse Resp B/P Pulse Ox O2 Delivery O2 Flow Rate FiO2 04/12/17 17:53 98.3 04/12/17 15:32 99 23 130/77 100 Room Air Status: improved Disposition: HOME, SELF-CARE Condition: Stable Referrals: NOT CHOSEN BARBARA/,REFERRING (PCP) NAHOMI DONALDSON M.D. April 12, 2017 18:51
[2017-04-12 20:00] VITALS: BP 121/74
[2017-04-12] MEDS: Heparin 5000 units/ml inj SUBQ SCH (21:00)
[2017-04-12] MEDS: Depakote ER 500mg tab ORAL SCH (21:43)
[2017-04-13] MEDS: NovoLOG Insulin Flexpen SUBQ SCH ×8 (06:13→22:22)
[2017-04-13 08:00] VITALS: BP 138/85
[2017-04-13] MEDS: Tums 500mg ORAL SCH (08:53)
[2017-04-13] MEDS: Heparin 5000 units/ml inj SUBQ SCH ×2 (08:56→21:00)
[2017-04-13] MEDS ORDERED: Levemir Flexpen SUBQ SCH ×3 (09:00→18:00)
[2017-04-13] MEDS: Morphine Sulfate 2mg/ml Inj IVP PRN ×2 (09:04→21:02)
--- NOTE | 2017-04-13 10:47 | Consultation ---
History of Present Illness General Date patient seen: April 13, 2017 Time patient seen: 10:00 Chief Complaint: Nausea Referring physician: dr Arana Reason for Consultation: inpatient management Present Illness HPI 41-year-old female wiht history of poorly controlled DM, HTN,. seizure disorder , psychiatric disorder, presented to ED with complaints of abdominal pain with nausea and vomiting. Symptoms x 1 day Described pain as sharp, 10 out of 10, nonradiating. Multiple episodes of vomiting. No blood in vomitus Patient with history of pancreatitis. Denied fevers or chills. Similar previous presentation in ED in the past Workup in ED revealed leukocytosis WBC-18.4 BUN/creat-17/1.3 Na -146, UA with THTC WBC, few bacteria , +4 ketones, +4 glucose, +3 protein, lipase, LFT stable WNL glucose 263 Allergies: Coded Allergies: No Known Allergies (Verified , NONE, 10/30/05) Medication History Scheduled Amlodipine Besylate (Norvasc), 5 MG ORAL DAILY, (Reported) Calcium Carbonate (Calcium), 600 MG PO DAILY, (Reported) Cholecalciferol (Vitamin D3)* (Vitamin D*), 1,000 UNIT ORAL DAILY, (Reported) Divalproex Sodium (Divalproex Sodium Er), 500 MG PO BEDTIME, (Reported) Divalproex Sodium* (Depakote Er*), 250 MG ORAL BEDTIME, (Reported) Insulin Detemir (Levemir), 0 SUBQ BEDTIME, (Reported) Insulin Glargine (Lantus), 0 SUBQ DAILY, (Reported) Insulin Glargine (Lantus), 15 SUBQ DAILY, (Reported) Insulin Lispro (Humalog), 0 SUBQ BEFORE MEALS, (Reported) Insulin Lispro (Humalog), 5 SUBQ AC, (Reported) Pantoprazole* (Protonix*), 40 MG ORAL DAILY, (Reported) Ranitidine Hcl* (Zantac*), 150 MG ORAL TWICE A DAY, (Reported) Sucralfate* (Carafate*), 1 GM ORAL FOUR TIMES A DAY, (Reported) Thiamine Hcl* (Vitamin B-1*), 100 MG ORAL DAILY, (Reported) Scheduled PRN Insulin Aspart (Novolog Flexpen), SUBQ TID PRN for SLIDING SCALE, (Reported) Sennosides (Senna), 8.6 MG PO DAILY PRN for Constipation, (Reported) Patient History History Provided By: Patient Healthcare decision maker Resuscitation status Advanced Directive on File Past Medical/Surgical History Past Medical/Surgical History: (1) Seizure disorder (2) Psychiatric disorder (3) DKA (diabetic ketoacidoses) (4) Anemia (5) HTN (hypertension) (6) Altered mental status (7) UTI (urinary tract infection) (8) ARF (acute renal failure) (9) Diabetes (10) Gastroparesis due to DM Review of Systems Constitutional: Reports: weakness Eye: Reports: no symptoms ENT: Reports: no symptoms Respiratory: Reports: no symptoms Cardiovascular: Reports: no symptoms Gastrointestinal: Reports: see HPI Genitourinary: Reports: dysuria, frequency Musculoskeletal: Reports: no symptoms Skin: Reports: no symptoms Psychiatric: Reports: other - psych disorder Neurological: Reports: seizure Endocrine: Reports: see HPI Hematologic/Lymphatic: Reports: no symptoms, other - hx of anemia Physical Exam General Appearance: no apparent distress, alert, thin Lines, tubes and drains: peripheral HEENT: normocephalic, atraumatic, anicteric Neck: supple Respiratory/Chest: lungs clear, no respiratory distress, no accessory muscle use Cardiovascular/Chest: normal peripheral pulses, normal rate, no JVD Abdomen: normal bowel sounds, non tender, soft Skin Exam: normal pigmentation, warm/dry Neurologic: no motor/sensory deficits, alert, responsive Musculoskeletal: normal muscle bulk Last 24 Hour Vital Signs Date Time Temp Pulse Resp B/P Pulse Ox O2 Delivery O2 Flow Rate FiO2 04/13/17 09:34 97.7 04/13/17 08:53 98 138/85 04/13/17 08:00 97.7 98 18 138/85 94 Room Air 04/12/17 20:00 95.8 99 22 121/74 99 Room Air 04/12/17 15:32 98.0 99 23 130/77 100 Room Air 04/12/17 15:00 98.0 99 20 161/95 100 Room Air 04/12/17 14:50 185/112 04/12/17 11:32 98.1 93 14 155/82 100 Room Air 04/12/17 11:24 98.3 101 18 127/99 100 Room Air 04/12/17 11:17 98.2 88 20 180/100 98 Room Air Intake and Output 04/12/17 04/13/17 19:00 07:00 Intake Total 1200 ml Balance 1200 ml Intake Oral 0 ml IV Total 1200 ml # Voids 2 # Bowel Movements 1 Laboratory Tests Test 04/12/17 12:00 04/12/17 13:34 White Blood Count 18.4 K/UL (4.8-10.8) H Red Blood Count 4.18 M/UL (4.20-5.40) L Hemoglobin 12.5 G/DL (12.0-16.0) Hematocrit 40.1 % (37.0-47.0) Mean Corpuscular Volume 96 FL (80-99) Mean Corpuscular Hemoglobin 30.0 PG (27.0-31.0) Mean Corpuscular Hemoglobin Concent 31.3 G/DL (32.0-36.0) L Red Cell Distribution Width 14.9 % (11.6-14.8) H Platelet Count 210 K/UL (150-450) Mean Platelet Volume 7.1 FL (6.5-10.1) Neutrophils (%) (Auto) % (45.0-75.0) Lymphocytes (%) (Auto) % (20.0-45.0) Monocytes (%) (Auto) % (1.0-10.0) Eosinophils (%) (Auto) % (0.0-3.0) Basophils (%) (Auto) % (0.0-2.0) Differential Total Cells Counted 100 Neutrophils % (Manual) 87 % (45-75) H Lymphocytes % (Manual) 10 % (20-45) L Monocytes % (Manual) 2 % (1-10) Eosinophils % (Manual) 0 % (0-3) Basophils % (Manual) 0 % (0-2) Band Neutrophils 1 % (0-8) Platelet Estimate Adequate Platelet Morphology Normal Hypochromasia 1+ Anisocytosis 1+ Sodium Level 146 mEQ/L (135-145) H Potassium Level 4.4 mEQ/L (3.4-4.9) Chloride Level 92 mEQ/L (98-107) L Carbon Dioxide Level 19 mEQ/L (20-30) L Anion Gap 35 (5-15) H Blood Urea Nitrogen 17 mg/dL (7-23) Creatinine 1.3 mg/dL (0.5-0.9) H Estimat Glomerular Filtration Rate 55.3 mL/min (>60) Glucose Level 263 mg/dL (74-106) H Calcium Level 9.9 mg/dL (8.6-10.2) Total Bilirubin 0.6 mg/dL (0.0-1.2) Aspartate Amino Transf (AST/SGOT) 29 U/L (5-40) Alanine Aminotransferase (ALT/SGPT) 13 U/L (3-33) Alkaline Phosphatase 141 U/L (35-104) H Total Protein 8.8 g/dL (6.6-8.7) H Albumin 4.7 g/dL (3.5-5.2) Globulin 4.1 g/dL Albumin/Globulin Ratio 1.1 (1.0-2.7) Lipase 7 U/L (< 60) Acetone Level Positive-small (NEGATIVE) Urine Color Pale yellow Urine Appearance Slightly cloudy Urine pH 6 (4.5-8.0) Urine Specific [place] 1.015 (1.005-1.035) Urine Protein 3+ (NEGATIVE) H Urine Glucose (UA) 4+ (NEGATIVE) H Urine Ketones 4+ (NEGATIVE) H Urine Occult Blood 3+ (NEGATIVE) H Urine Nitrite Negative (NEGATIVE) Urine Bilirubin Negative (NEGATIVE) Urine Urobilinogen Normal MG/DL (0.0-1.0) Urine Leukocyte Esterase 3+ (NEGATIVE) H Urine RBC 5-10 /HPF (0 - 2) H Urine WBC 30-40 /HPF (0 - 2) H Urine Squamous Epithelial Cells Few /LPF (NONE/OCC) Urine Bacteria Few /HPF (NONE) Urine HCG, Qualitative Negative Microbiology Date/Time Source Procedure Growth Status 04/12/17 13:34 Urine,Clean Catch Urine Culture - Preliminary Resulted Height (Feet): 5 Height (Inches): 6.00 Weight (Pounds): 130 Medications Current Medications Medications (Trade) Dose Ordered Sig/Mateo Route PRN Reason Start Time Stop Time Status Last Admin Dose Admin Acetaminophen (Tylenol) 650 mg Q4H PRN ORAL fever 04/12/17 14:30 05/12/17 14:29 Al Hydroxide/Mg Hydroxide (Mylanta II) 30 ml Q6H PRN ORAL dyspepsia 04/12/17 14:30 05/12/17 14:29 Albuterol/ Ipratropium (DuoNeb 0.5-3(2.5)mg/3ml) 3 ml Q4H PRN HHN Shortness of Breath 04/12/17 14:30 04/17/17 14:29 Amlodipine Besylate (Norvasc) 5 mg DAILY ORAL 04/13/17 09:00 05/13/17 08:59 04/13/17 08:53 Calcium Carbonate (Tums) 500 mg DAILY ORAL 04/13/17 09:00 05/13/17 08:59 04/13/17 08:53 Clonidine HCl (Catapres) 0.1 mg Q4H PRN ORAL SBP > 160 04/12/17 14:30 05/12/17 14:29 Dextrose (Dextrose 50%) STAT PRN IV Hypoglycemia 04/13/17 07:15 05/13/17 07:14 Divalproex Sodium (Depakote ER) 500 mg BEDTIME ORAL 04/12/17 21:00 05/12/17 20:59 04/12/17 21:43 Heparin Sodium (Porcine) (Heparin 5000 units/ml) 5,000 units EVERY 12 HOURS SUBQ 04/12/17 21:00 05/12/17 20:59 04/13/17 08:56 Insulin Aspart (NovoLOG) BEFORE MEALS AND HS SUBQ 04/12/17 16:30 05/12/17 16:29 04/12/17 21:47 Insulin Aspart (NovoLOG) 4 units NOVOTIAC SUBQ 04/13/17 08:00 05/13/17 07:59 Insulin Detemir (Levemir) 12 units DAILY SUBQ 04/13/17 09:00 05/13/17 08:59 04/13/17 09:09 Ketorolac Tromethamine (Toradol 30mg) 30 mg Q6H PRN IV moderate pain 4-6 04/12/17 14:30 04/17/17 14:29 Morphine Sulfate (Morphine Sulfate) 2 mg Q4H PRN IVP severe pain 7-10 04/12/17 14:30 04/19/17 14:29 04/13/17 09:04 Nitroglycerin (Ntg) 0.4 mg Q5M X 3 DOSES PRN SL Prn Chest Pain 04/12/17 14:30 05/12/17 14:29 Ondansetron HCl (Zofran) 4 mg Q6H PRN IVP Nausea & Vomiting 04/12/17 14:30 05/12/17 14:29 04/13/17 09:04 Pantoprazole (Protonix) 40 mg DAILY ORAL 04/13/17 09:00 05/13/17 08:59 04/13/17 08:53 Polyethylene Glycol (Miralax) 17 gm HSPRN PRN ORAL Constipation 04/12/17 14:30 05/12/17 14:29 Ranitidine HCl 150 mg 150 mg TWICE A DAY ORAL 04/12/17 18:00 05/12/17 17:59 04/13/17 08:53 Sodium Chloride (Sodium Chloride 1000ml bag) 1,000 ml @ 100 mls/hr Q10H IVLG 04/12/17 16:00 05/12/17 15:59 04/13/17 02:14 Temazepam (Restoril) 15 mg HSPRN PRN ORAL Insomnia 04/12/17 14:30 04/19/17 14:29 Assessment/Plan Assessment/Plan ASSESSMENT gastroparesis DOOC pyuria, possible UTI CIERA dehydration ( 2 to multiple episodes of vomiting) HTN seizure disorder psychiatric disorder proteinuria PLAN OF CARE [facility] floor IVF endo eval a/emetic prn BS management with short acting premeal and long acting Levemir as well as SS prn check HgA1c, TSH, lipid panel stress compliance with medication regimen empiric abx fup with cx monitor renal parameters, lytes CIERA possibly due to dehydration 2 to vomiting workup for proteinuria as outpatient probably diabetic nephropathy BP management with CCB and optimize further as needed seizure precautions, continue Depakote DVT prophylaxis resume psych meds case discussed and evaluated by supervising physician Jayden ([email or web address])Cailin NP April 13, 2017 10:46
[2017-04-13 14:52] LABS: MEAN CORPUSCULAR HEMOGLOBIN 29.9 PG (27.0-31.0); MEAN CORPUSCULAR HGB CONC 30.4 G/DL (32.0-36.0); MEAN CORPUSCULAR VOLUME 98 FL (80-99); PLATELET COUNT 262 K/UL (150-450); RED BLOOD COUNT 3.64 M/UL (4.20-5.40); RED CELL DISTRIBUTION WIDTH 14.8 % (11.6-14.8); WHITE BLOOD COUNT 20.1 K/UL (4.8-10.8)
[2017-04-13 15:24] LABS: ALBUMIN/GLOBULIN RATIO 1.1 (1.0-2.7); CALCIUM 8.3 mg/dL (8.6-10.2); CHOLESTEROL/HDL RATIO 4.4 (3.3-4.4); CREATININE 1.9 mg/dL (0.5-0.9); GLOMERULAR FILTRATION RATE 35.8 mL/min (>60); POTASSIUM 5.2 mEQ/L (3.4-4.9); THYROID STIMULATING HORMONE 0.46 uIU/mL (0.300-4.500); TOTAL PROTEIN 6.8 g/dL (6.6-8.7)
--- NOTE | 2017-04-13 17:31 | Consultation ---
DATE OF CONSULTATION: 04/13/2017 CONSULTING PHYSICIAN: Bertin Alejo M.D. ATTENDING PHYSICIAN: Brandon Arana D.O. REFERRING PHYSICIAN: Brandon Arana D.O. REASON FOR CONSULTATION: Diabetes, out of control. HISTORY OF PRESENT ILLNESS: The patient is a 41-year-old female who has been known to me due to multiple admissions to the hospital with DKA and hyperglycemia. She is very noncompliant with her insulin regimen and she is suffering from psychiatric illness. The patient came and was readmitted to the hospital. Diabetes is out of control again and I was consulted to assist. PAST MEDICAL HISTORY: 1. Type 1 diabetes. 2. Renal failure. 3. GERD. 4. Seizure. 5. Psychiatric illness. 6. Hypertension. PAST SURGICAL HISTORY: None. MEDICATIONS: Reviewed and reconciled. ALLERGIES TO MEDICATIONS: None. SOCIAL HISTORY: Denies any smoking, alcohol, or drug abuse. FAMILY HISTORY: Noncontributory. REVIEW OF SYSTEMS: The patient is noncooperative. PHYSICAL EXAMINATION: GENERAL: She is awake and alert. VITAL SIGNS: Blood pressure is 121/74, heart rate 99, respirations 22, and temperature 98.3. NECK: No JVD. LUNGS: Clear. HEART: Regular. ABDOMEN: Positive bowel sounds. EXTREMITIES: No clubbing, cyanosis, or pedal edema. LABORATORY DATA: WBC 18,000, hemoglobin 12, hematocrit 40, and platelet level 210,000. Sodium 146, potassium 4.4, chloride 92, bicarb 19, BUN 17, creatinine 1.2, and glucose of 262. DIAGNOSES: 1. Diabetes, out of control. 2. Leukocytosis. 3. Psychiatric illness. PLAN: 1. Start Levemir at 12 units daily. 2. Add NovoLog 4 units before each meal. 3. Continue with the sliding scale. 4. Continue to follow the patient. Thank you, Dr. Arana, for the courtesy of this consultation. Bertin Alejo M.D. DR: LORIE JOB#: [id number] CC:
[2017-04-13 19:06] LABS: BAND NEUTROPHILS % (MANUAL) 3 % (0-8); BASOPHILS % (MANUAL) 0 % (0-2); EOSINOPHILS % (MANUAL) 0 % (0-3); LYMPHOCYTES % (MANUAL) 8 % (20-45); NEUTROPHILS % (MANUAL) 83 % (45-75); PLATELET ESTIMATE ADEQUATE; TOTAL CELLS COUNTED 100
[2017-04-13 19:07] LABS: ANISOCYTOSIS 1+; MACROCYTES 1+; PLATELET MORPHOLOGY NORMAL; POLYCHROMASIA 1+
[2017-04-13 20:00] VITALS: BP 167/94
--- NOTE | 2017-04-13 20:43 | Infectious Diseases Prog Note ---
Assessment/Plan Problems: (1) Abnormal white blood cell (WBC) count Assessment & Plan: rule out sepsis, will send blood culture and start cefepime empirically (2) UTI (urinary tract infection) Assessment & Plan: will send urine culture and start cefepime empirically (3) Hyperglycemia Assessment & Plan: due to non complaint with meds, recommend counseling , and tight glycemic control to keep blood glucose between 80-120 (4) DKA (diabetic ketoacidoses) Assessment & Plan: continue long acting insuline with sliding scale to keep tight glycemic control Subjective Allergies: Coded Allergies: No Known Allergies (Verified , NONE, 10/30/05) Objective Vital Signs Last 24 Hour Vital Signs Date Time Temp Pulse Resp B/P Pulse Ox O2 Delivery O2 Flow Rate FiO2 04/13/17 09:34 97.7 04/13/17 08:53 98 138/85 04/13/17 08:00 97.7 98 18 138/85 94 Room Air Height (Feet): 5 Height (Inches): 6.00 Weight (Pounds): 130 Microbiology Date/Time Source Procedure Growth Status 04/12/17 13:34 Urine,Clean Catch Urine Culture - Preliminary Resulted Laboratory Tests Test 04/13/17 14:41 White Blood Count 20.1 K/UL (4.8-10.8) H Red Blood Count 3.64 M/UL (4.20-5.40) L Hemoglobin 10.9 G/DL (12.0-16.0) L Hematocrit 35.7 % (37.0-47.0) L Mean Corpuscular Volume 98 FL (80-99) Mean Corpuscular Hemoglobin 29.9 PG (27.0-31.0) Mean Corpuscular Hemoglobin Concent 30.4 G/DL (32.0-36.0) L Red Cell Distribution Width 14.8 % (11.6-14.8) Platelet Count 262 K/UL (150-450) Mean Platelet Volume 7.0 FL (6.5-10.1) Neutrophils (%) (Auto) % (45.0-75.0) Lymphocytes (%) (Auto) % (20.0-45.0) Monocytes (%) (Auto) % (1.0-10.0) Eosinophils (%) (Auto) % (0.0-3.0) Basophils (%) (Auto) % (0.0-2.0) Differential Total Cells Counted 100 Neutrophils % (Manual) 83 % (45-75) H Lymphocytes % (Manual) 8 % (20-45) L Monocytes % (Manual) 6 % (1-10) Eosinophils % (Manual) 0 % (0-3) Basophils % (Manual) 0 % (0-2) Band Neutrophils 3 % (0-8) Platelet Estimate Adequate Platelet Morphology Normal Polychromasia 1+ Anisocytosis 1+ Macrocytosis 1+ Sodium Level 142 mEQ/L (135-145) Potassium Level 5.2 mEQ/L (3.4-4.9) H Chloride Level 99 mEQ/L (98-107) Carbon Dioxide Level 10 mEQ/L (20-30) L Anion Gap 33 (5-15) H Blood Urea Nitrogen 27 mg/dL (7-23) H Creatinine 1.9 mg/dL (0.5-0.9) H Estimat Glomerular Filtration Rate 35.8 mL/min (>60) Glucose Level 494 mg/dL (74-106) #H Hemoglobin A1c 9.0 % (< 6.0) H Calcium Level 8.3 mg/dL (8.6-10.2) L Total Bilirubin 0.3 mg/dL (0.0-1.2) Aspartate Amino Transf (AST/SGOT) 13 U/L (5-40) Alanine Aminotransferase (ALT/SGPT) 10 U/L (3-33) Alkaline Phosphatase 118 U/L (35-104) H Total Protein 6.8 g/dL (6.6-8.7) Albumin 3.6 g/dL (3.5-5.2) Globulin 3.2 g/dL Albumin/Globulin Ratio 1.1 (1.0-2.7) Triglycerides Level 177 mg/dL (< 150) H Cholesterol Level 144 mg/dL (< 200) LDL Cholesterol 76 mg/dL (60-99) HDL Cholesterol 33 mg/dL (> 60) Cholesterol/HDL Ratio 4.4 (3.3-4.4) Thyroid Stimulating Hormone (TSH) 0.460 uIU/mL (0.300-4.500) Current Medications Medications (Trade) Dose Ordered Sig/Mateo Route PRN Reason Start Time Stop Time Status Last Admin Dose Admin Acetaminophen (Tylenol) 650 mg Q4H PRN ORAL fever 04/12/17 14:30 05/12/17 14:29 Al Hydroxide/Mg Hydroxide (Mylanta II) 30 ml Q6H PRN ORAL dyspepsia 04/12/17 14:30 05/12/17 14:29 Albuterol/ Ipratropium (DuoNeb 0.5-3(2.5)mg/3ml) 3 ml Q4H PRN HHN Shortness of Breath 04/12/17 14:30 04/17/17 14:29 Amlodipine Besylate (Norvasc) 5 mg DAILY ORAL 04/13/17 09:00 05/13/17 08:59 04/13/17 08:53 Calcium Carbonate (Tums) 500 mg DAILY ORAL 04/13/17 09:00 05/13/17 08:59 04/13/17 08:53 Clonidine HCl (Catapres) 0.1 mg Q4H PRN ORAL SBP > 160 04/12/17 14:30 05/12/17 14:29 Dextrose (Dextrose 50%) STAT PRN IV Hypoglycemia 04/13/17 20:15 05/13/17 20:14 UNV Dextrose STAT PRN IV Hypoglycemia 04/13/17 07:15 05/13/17 07:14 Divalproex Sodium (Depakote ER) 500 mg BEDTIME ORAL 04/12/17 21:00 05/12/17 20:59 04/12/17 21:43 Heparin Sodium (Porcine) (Heparin 5000 units/ml) 5,000 units EVERY 12 HOURS SUBQ 04/12/17 21:00 05/12/17 20:59 04/13/17 08:56 Insulin Aspart (NovoLOG) BEFORE MEALS AND HS SUBQ 04/13/17 21:00 05/13/17 20:59 UNV Insulin Aspart (NovoLOG) 4 units NOVOTIAC SUBQ 04/13/17 08:00 05/13/17 07:59 Insulin Detemir (Levemir) 15 units BID SUBQ 04/14/17 09:00 05/14/17 08:59 Ketorolac Tromethamine (Toradol 30mg) 30 mg Q6H PRN IV moderate pain 4-6 04/12/17 14:30 04/17/17 14:29 Morphine Sulfate (Morphine Sulfate) 2 mg Q4H PRN IVP severe pain 7-10 04/12/17 14:30 04/19/17 14:29 04/13/17 09:04 Nitroglycerin (Ntg) 0.4 mg Q5M X 3 DOSES PRN SL Prn Chest Pain 04/12/17 14:30 05/12/17 14:29 Ondansetron HCl (Zofran) 4 mg Q6H PRN IVP Nausea & Vomiting 04/12/17 14:30 05/12/17 14:29 04/13/17 09:04 Polyethylene Glycol (Miralax) 17 gm HSPRN PRN ORAL Constipation 04/12/17 14:30 05/12/17 14:29 Ranitidine HCl (Zantac) 150 mg TWICE A DAY ORAL 04/12/17 18:00 05/12/17 17:59 04/13/17 17:46 Sodium Chloride (Sodium Chloride 1000ml bag) 1,000 ml @ 150 mls/hr Q6H40M IVLG 04/13/17 15:00 05/13/17 14:59 04/13/17 15:00 Temazepam (Restoril) 15 mg HSPRN PRN ORAL Insomnia 04/12/17 14:30 04/19/17 14:29 Choco Lozada M.D. April 13, 2017 20:43
[2017-04-13] MEDS: Depakote ER 500mg tab ORAL SCH (21:00)
[2017-04-13] MEDS: Cefepime HCl 1 GM in D5W 55 ML IVPB SCH (22:15)
[2017-04-14] VITALS: BP 162/106
[2017-04-14] MEDS: Morphine Sulfate 2mg/ml Inj IVP PRN ×4 (03:31→22:21)
[2017-04-14] MEDS: NovoLOG Insulin Flexpen SUBQ SCH ×7 (06:30→21:25)
[2017-04-14] MEDS: Heparin 5000 units/ml inj SUBQ SCH ×2 (09:00→21:22)
[2017-04-14] MEDS ORDERED: Levemir Flexpen SUBQ SCH ×2 (09:00→19:00)
[2017-04-14 09:12] LABS: CALCIUM 9.4 mg/dL (8.6-10.2); CREATININE 1.3 mg/dL (0.5-0.9); GLOMERULAR FILTRATION RATE 55.3 mL/min (>60); POTASSIUM 4.1 mEQ/L (3.4-4.9)
[2017-04-14 09:14] LABS: BASOPHILS % (AUTO) 0.3 % (0.0-2.0); EOSINOPHILS % (AUTO) 0.8 % (0.0-3.0); LYMPHOCYTES % (AUTO) 11.1 % (20.0-45.0); MEAN CORPUSCULAR HEMOGLOBIN 29.4 PG (27.0-31.0); MEAN CORPUSCULAR HGB CONC 30.7 G/DL (32.0-36.0); MEAN CORPUSCULAR VOLUME 96 FL (80-99); MEAN PLATELET VOLUME 7.7 FL (6.5-10.1); MONOCYTES % (AUTO) 6.4 % (1.0-10.0); NEUTROPHILS % (AUTO) 81.4 % (45.0-75.0); PLATELET COUNT 262 K/UL (150-450); RED BLOOD COUNT 4.23 M/UL (4.20-5.40); RED CELL DISTRIBUTION WIDTH 15.1 % (11.6-14.8); WHITE BLOOD COUNT 12.4 K/UL (4.8-10.8)
[2017-04-14] MEDS: Tums 500mg ORAL SCH (09:30)
[2017-04-14] MEDS: Cefepime HCl 1 GM in D5W 55 ML IVPB SCH ×2 (10:00→22:20)
[2017-04-14 12:00] VITALS: BP 185/108
--- NOTE | 2017-04-14 12:16 | Diagnostic Imaging Report ---
Indications: Needs long-term IV access Technique: Ultrasound confirms patent compressible left basilic vein. Total sterile technique, including sterile probe cover and sterile gel, hat, mask,, sterile gown, large sterile drape, and preparation with 2% chlorhexidine utilized. Local anesthesia with 1% lidocaine. Under real-time ultrasound guidance, puncture basilic vein using 21-gauge needle, documented and archived, passage 0.018 guidewire under direct fluoroscopy, which was used to determine appropriate catheter length, exchange for 5 [place] peel-away sheath. 5 [place] Bard dual-lumen power PICC cut to 39 cm. It was inserted through the peel-away sheath. Peel-away sheath and guidewire removed. Catheter fixed to the skin. Both catheter ports aspirated and flushed. Patient tolerated procedure well, without immediate complication. Digital radiograph documents satisfactory catheter tip position, at the cavoatrial junction. Total fluoroscopy time 0.2 minutes. Total dose area product 1.8 dGycm2 Impression: Successful placement of left arm PICC under sonographic and fluoroscopic guidance, as described above.
[2017-04-14 16:00] VITALS: BP 178/115
--- NOTE | 2017-04-14 17:09 | Cardiac Electrophysiology PN ---
Subjective Subjective [id number] Objective Last 24 Hour Vital Signs Date Time Temp Pulse Resp B/P Pulse Ox O2 Delivery O2 Flow Rate FiO2 04/14/17 16:30 97.0 04/14/17 16:00 97.2 86 18 178/115 100 Room Air 04/14/17 12:08 185/108 04/14/17 12:00 97.9 89 18 185/108 100 Room Air 04/14/17 00:00 97.0 98 24 162/106 100 Room Air 04/13/17 20:00 97.7 101 22 167/94 100 Room Air Intake and Output 04/13/17 04/14/17 19:00 07:00 Intake Total 1460 ml 1350 ml Balance 1460 ml 1350 ml Intake Oral 360 ml IV Total 1100 ml 1350 ml # Voids 2 3 Laboratory Tests Test 04/14/17 07:40 White Blood Count 12.4 K/UL (4.8-10.8) H Red Blood Count 4.23 M/UL (4.20-5.40) Hemoglobin 12.4 G/DL (12.0-16.0) Hematocrit 40.5 % (37.0-47.0) Mean Corpuscular Volume 96 FL (80-99) Mean Corpuscular Hemoglobin 29.4 PG (27.0-31.0) Mean Corpuscular Hemoglobin Concent 30.7 G/DL (32.0-36.0) L Red Cell Distribution Width 15.1 % (11.6-14.8) H Platelet Count 262 K/UL (150-450) Mean Platelet Volume 7.7 FL (6.5-10.1) Neutrophils (%) (Auto) 81.4 % (45.0-75.0) H Lymphocytes (%) (Auto) 11.1 % (20.0-45.0) L Monocytes (%) (Auto) 6.4 % (1.0-10.0) Eosinophils (%) (Auto) 0.8 % (0.0-3.0) Basophils (%) (Auto) 0.3 % (0.0-2.0) Sodium Level 147 mEQ/L (135-145) H Potassium Level 4.1 mEQ/L (3.4-4.9) Chloride Level 107 mEQ/L (98-107) Carbon Dioxide Level 20 mEQ/L (20-30) Anion Gap 20 (5-15) H Blood Urea Nitrogen 18 mg/dL (7-23) Creatinine 1.3 mg/dL (0.5-0.9) H Estimat Glomerular Filtration Rate 55.3 mL/min (>60) Glucose Level 159 mg/dL (74-106) #H Calcium Level 9.4 mg/dL (8.6-10.2) Microbiology Date/Time Source Procedure Growth Status 04/12/17 13:34 Urine,Clean Catch Urine Culture - Preliminary Resulted MARCIA PINTO April 14, 2017 17:09
[2017-04-14 17:20] VITALS: BP 151/90
[2017-04-14] MEDS ORDERED: Tubing IV Secondary IV ONE (17:58)
[2017-04-14] MEDS ORDERED: Nitroglycerin Subl 0.4mg tab (Bottle Of 25) SL PRN (18:00)
[2017-04-14] MEDS ORDERED: Ketorolac 30mg Inj IV PRN (18:30)
[2017-04-14] MEDS ORDERED: DuoNeb 0.5-3(2.5)mg/3ml neb HHN PRN (18:30)
[2017-04-14] MEDS ORDERED: Miralax 17gm pkt ORAL PRN (18:30)
[2017-04-14] MEDS ORDERED: Mylanta II UD 30ml ORAL PRN (18:30)
--- NOTE | 2017-04-14 18:55 | Consultation ---
History of Present Illness General Chief Complaint: Nausea Referring physician: dr Arana Reason for Consultation: Acute kidney Injury Present Illness HPI This is a 41 yr old AA female with a PMHx significant for insulin-dependent diabetes, chronic pancreatitis, gastroparesis and noncompliance, who presented to the ED with complaints of abdominal pain, nausea and vomiting. Blood sugar was also elevated. She denies any chest pain, no fevers or chills or blurry vision or headache. No sore throat. No runny nose. No cough. No shortness of breath. No nausea or vomiting. No urinary symptoms. Consult was requested due to elevated BUN/cr. Allergies: Coded Allergies: No Known Allergies (Verified , NONE, 10/30/05) Medication History Scheduled Amlodipine Besylate (Norvasc), 5 MG ORAL DAILY, (Reported) Calcium Carbonate (Calcium), 600 MG PO DAILY, (Reported) Cholecalciferol (Vitamin D3)* (Vitamin D*), 1,000 UNIT ORAL DAILY, (Reported) Divalproex Sodium (Divalproex Sodium Er), 500 MG PO BEDTIME, (Reported) Divalproex Sodium* (Depakote Er*), 250 MG ORAL BEDTIME, (Reported) Insulin Detemir (Levemir), 0 SUBQ BEDTIME, (Reported) Insulin Glargine (Lantus), 0 SUBQ DAILY, (Reported) Insulin Glargine (Lantus), 15 SUBQ DAILY, (Reported) Insulin Lispro (Humalog), 0 SUBQ BEFORE MEALS, (Reported) Insulin Lispro (Humalog), 5 SUBQ AC, (Reported) Pantoprazole* (Protonix*), 40 MG ORAL DAILY, (Reported) Ranitidine Hcl* (Zantac*), 150 MG ORAL TWICE A DAY, (Reported) Sucralfate* (Carafate*), 1 GM ORAL FOUR TIMES A DAY, (Reported) Thiamine Hcl* (Vitamin B-1*), 100 MG ORAL DAILY, (Reported) Scheduled PRN Insulin Aspart (Novolog Flexpen), SUBQ TID PRN for SLIDING SCALE, (Reported) Sennosides (Senna), 8.6 MG PO DAILY PRN for Constipation, (Reported) Patient History History Provided By: Patient Healthcare decision maker Resuscitation status Advanced Directive on File Past Medical/Surgical History Past Medical/Surgical History: (1) DKA (diabetic ketoacidoses) (2) Diabetes (3) Anemia (4) HTN (hypertension) (5) Seizure disorder (6) Psychiatric disorder (7) Altered mental status Social History Social History: (1) Non-smoker (2) No illicit drug use (3) No history of alcohol use Review of Systems Constitutional: Denies: chills, fever, malaise, no symptoms, other, see HPI, sweats, weakness Eye: Denies: acuity changes, blurred vision, discharge, double vision, eye pain , no symptoms, nose congestion, nose pain, other, see HPI, tearing ENT: Denies: ear discharge, ear pain, hearing loss, mouth pain, nasal discharge , no symptoms, nose congestion, nose pain, other, see HPI, throat pain, throat swelling Respiratory: Denies: CALLE, cough, no symptoms, orthopnea, other, see HPI, shortness of breath, sputum, stridor, wheezing Cardiovascular: Denies: PND, chest pain, edema, no symptoms, other, palpitations, see HPI, syncope Gastrointestinal: Denies: abdominal pain, constipation, diarrhea, hematemesis, melena, nausea, no symptoms, other, see HPI, vomiting Musculoskeletal: Denies: back pain, gout, joint pain, joint swelling, muscle pain, muscle stiffness, no symptoms, other, see HPI Skin: Denies: change in color, change in hair/nails, dryness, lesions, no symptoms, other, rash, see HPI Psychiatric: Denies: HI, SI, anxiety, depressed feelings, emotional problems, hallucinations, no symptoms, other, prior hx, see HPI Neurological: Denies: dizziness, focal weakness, headache, no symptoms, numbness, other, paresthesia, see HPI, seizure, syncope, tingling, tremors Endocrine: Denies: excessive sweating, flushing, increased thirst, increased urine, intolerance to temperature, no symptoms, other, see HPI, unexplained weight loss Hematologic/Lymphatic: Denies: anemia, blood clots, diathesis, easy bleeding, easy bruising, no symptoms, other, see HPI, swollen glands Physical Exam General Appearance: no apparent distress Lines, tubes and drains: peripheral HEENT: normocephalic, atraumatic Neck: normal alignment, supple Respiratory/Chest: lungs clear, normal breath sounds, no respiratory distress Cardiovascular/Chest: normal rate, regular rhythm Abdomen: non tender, soft, no organomegaly, no mass Extremities: non-tender, normal inspection, no calf tenderness Skin Exam: warm/dry Neurologic: alert, oriented x 3 Last 24 Hour Vital Signs Date Time Temp Pulse Resp B/P Pulse Ox O2 Delivery O2 Flow Rate FiO2 04/14/17 17:20 97.8 83 20 151/90 100 Room Air 04/14/17 16:30 97.0 04/14/17 16:00 97.2 86 18 178/115 100 Room Air 04/14/17 12:08 185/108 04/14/17 12:00 97.9 89 18 185/108 100 Room Air 04/14/17 00:00 97.0 98 24 162/106 100 Room Air 04/13/17 20:00 97.7 101 22 167/94 100 Room Air Intake and Output 04/13/17 04/14/17 19:00 07:00 Intake Total 1460 ml 1350 ml Balance 1460 ml 1350 ml Intake Oral 360 ml IV Total 1100 ml 1350 ml # Voids 2 3 Laboratory Tests Test 04/14/17 07:40 White Blood Count 12.4 K/UL (4.8-10.8) H Red Blood Count 4.23 M/UL (4.20-5.40) Hemoglobin 12.4 G/DL (12.0-16.0) Hematocrit 40.5 % (37.0-47.0) Mean Corpuscular Volume 96 FL (80-99) Mean Corpuscular Hemoglobin 29.4 PG (27.0-31.0) Mean Corpuscular Hemoglobin Concent 30.7 G/DL (32.0-36.0) L Red Cell Distribution Width 15.1 % (11.6-14.8) H Platelet Count 262 K/UL (150-450) Mean Platelet Volume 7.7 FL (6.5-10.1) Neutrophils (%) (Auto) 81.4 % (45.0-75.0) H Lymphocytes (%) (Auto) 11.1 % (20.0-45.0) L Monocytes (%) (Auto) 6.4 % (1.0-10.0) Eosinophils (%) (Auto) 0.8 % (0.0-3.0) Basophils (%) (Auto) 0.3 % (0.0-2.0) Sodium Level 147 mEQ/L (135-145) H Potassium Level 4.1 mEQ/L (3.4-4.9) Chloride Level 107 mEQ/L (98-107) Carbon Dioxide Level 20 mEQ/L (20-30) Anion Gap 20 (5-15) H Blood Urea Nitrogen 18 mg/dL (7-23) Creatinine 1.3 mg/dL (0.5-0.9) H Estimat Glomerular Filtration Rate 55.3 mL/min (>60) Glucose Level 159 mg/dL (74-106) #H Calcium Level 9.4 mg/dL (8.6-10.2) Height (Feet): 5 Height (Inches): 6.00 Weight (Pounds): 130 Medications Current Medications Medications (Trade) Dose Ordered Sig/Mateo Route PRN Reason Start Time Stop Time Status Last Admin Dose Admin Acetaminophen (Tylenol) 650 mg Q4H PRN ORAL fever 04/14/17 18:30 05/14/17 18:29 Al Hydroxide/Mg Hydroxide (Mylanta II) 30 ml Q6H PRN ORAL dyspepsia 04/14/17 18:30 05/14/17 18:29 Albuterol/ Ipratropium (DuoNeb 0.5-3(2.5)mg/3ml) 3 ml Q4H PRN HHN Shortness of Breath 04/14/17 18:30 04/19/17 18:29 Amlodipine Besylate (Norvasc) 5 mg Q12HR ORAL 04/14/17 21:00 05/14/17 20:59 Calcium Carbonate (Tums) 500 mg DAILY ORAL 04/15/17 09:00 05/15/17 08:59 UNV Cefepime HCl 1 gm/ Dextrose 55 ml @ 110 mls/hr Q12H IVPB 04/14/17 22:00 04/21/17 21:59 UNV Clonidine HCl (Catapres) 0.1 mg Q4H PRN ORAL SBP > 160 04/14/17 18:30 05/14/17 18:29 Dextrose (Dextrose 50%) STAT PRN IV Hypoglycemia 04/14/17 18:30 05/14/17 18:29 Dextrose (Dextrose 50%) STAT PRN IV Hypoglycemia 04/14/17 20:15 05/14/17 20:14 UNV Divalproex Sodium (Depakote ER) 500 mg BEDTIME ORAL 04/14/17 21:00 05/14/17 20:59 Heparin Sodium (Porcine) (Heparin 5000 units/ml) 5,000 units EVERY 12 HOURS SUBQ 04/14/17 21:00 05/14/17 20:59 Insulin Aspart (NovoLOG) BEFORE MEALS AND HS SUBQ 04/14/17 21:00 05/14/17 20:59 Insulin Aspart (NovoLOG) 4 units NOVOTIAC SUBQ 04/15/17 06:30 05/15/17 06:29 Insulin Detemir (Levemir) 15 units BID SUBQ 04/14/17 19:00 05/14/17 18:59 Ketorolac Tromethamine (Toradol 30mg) 30 mg Q6H PRN IV moderate pain 4-6 04/14/17 18:30 04/19/17 18:29 Lisinopril (Zestril) 10 mg Q12HR ORAL 04/14/17 21:00 05/14/17 20:59 Morphine Sulfate (Morphine Sulfate) 2 mg Q4H PRN IVP severe pain 7-10 04/14/17 18:30 04/21/17 18:29 Nitroglycerin (Ntg) 0.4 mg Q5M X 3 DOSES PRN SL Prn Chest Pain 04/14/17 18:00 05/14/17 17:59 Ondansetron HCl (Zofran) 4 mg Q6H PRN IVP Nausea & Vomiting 04/14/17 18:30 05/14/17 18:29 Polyethylene Glycol (Miralax) 17 gm HSPRN PRN ORAL Constipation 04/14/17 18:30 05/14/17 18:29 Ranitidine HCl (Zantac) 150 mg 1900 ORAL 04/14/17 18:00 05/14/17 17:59 Sodium Chloride (Sodium Chloride 1000ml bag) 1,000 ml @ 150 mls/hr Q6H40M IVLG 04/14/17 18:30 05/14/17 18:29 Temazepam (Restoril) 15 mg HSPRN PRN ORAL Insomnia 04/14/17 18:30 04/21/17 18:29 Assessment/Plan Problem List: (1) CIERA (acute kidney injury) ICD Codes: N17.9 - Acute kidney failure, unspecified SNOMED: 65538376 (2) Diabetes ICD Codes: E11.9 - Type 2 diabetes mellitus without complications SNOMED: 07659860 (3) HTN (hypertension) ICD Codes: I10 - Essential (primary) hypertension SNOMED: 62173179 (4) Seizure disorder ICD Codes: G40.909 - Epilepsy, unspecified, not intractable, without status epilepticus SNOMED: 453368220 (5) Psychiatric disorder ICD Codes: F99 - Mental disorder, not otherwise specified SNOMED: 74282932, 472697295 (6) Intractable nausea and vomiting ICD Codes: R11.2 - Nausea with vomiting, unspecified SNOMED: 829021984, 284401049 Status: stable Assessment/Plan Monitor Renal function Avoid nephrotoxic agents Monitor lytes, correct prn Abx per ID BP and BS control DVT prophylaxis GI following AM labs Grace Ramesh N.P. April 14, 2017 18:55
[2017-04-14 20:01] VITALS: BP 190/120
[2017-04-14] MEDS ORDERED: Lisinopril 10mg tab ORAL SCH (21:00)
--- NOTE | 2017-04-14 21:15 | History and Physical Report ---
DATE OF ADMISSION: 04/12/2017 TIME: 1 p.m. CONSULTANTS: 1. Rick White M.D. 2. Fred Paz M.D. 3. Bertin Alejo M.D. 4. Dr. Metzger. CHIEF COMPLAINT: Hyperglycemia and dehydration. BRIEF HISTORY: This is a 41-year-old female who lives at home, presents with abnormal lab and increased blood sugar, diagnosed with diabetes, hyperglycemia, dehydration, and seizure history and admitted to medical floor for further treatment. Currently, anxious, slightly confused in bed, not talking. REVIEW OF SYSTEMS: Unavailable. PAST MEDICAL HISTORY: 1. Encephalopathy. 2. Hypertension. 3. Seizure. 4. Acute renal failure. 5. Diabetes. PAST SURGICAL HISTORY: Unknown. MEDICATIONS: Levemir, cefepime, NovoLog, dextrose, Norvasc, Tylenol, and dextrose. ALLERGIES: Denies. SOCIAL HISTORY: Positive smoking. No alcohol. No intravenous drug use. FAMILY HISTORY: Noncontributory. PHYSICAL EXAMINATION: GENERAL: Anxious and agitated in bed, oriented x1, no acute distress. VITAL SIGNS: Temperature is 97 degrees, pulse 89, respiratory rate 18, and blood pressure 185/108. CARDIOVASCULAR: ABDOMEN: Bowel sounds positive. Nontender and nondistended. EXTREMITIES: No cyanosis or edema. NEUROLOGIC: The patient moves all four extremities and does not want to follow commands. LABORATORY AND DIAGNOSTIC DATA: White count 12.4, hemoglobin and hematocrit is normal and platelets 262,000. BMP shows sodium 147, BUN and creatinine 18 and 1.3 and glucose 159 and initially it was 494. Urinalysis shows 3+ leukocyte esterase. Urine toxicology positive for . ASSESSMENT: 1. Diabetes, hyperglycemia. 2. Leukocytosis. 3. Urinary tract infection. 4. Hypertension. 5. Encephalopathy. 6. Acute renal failure. 7. Seizure. PLAN: Continue premedications. OT/PT. Dietary followup. Antibiotics per Infectious Disease. Blood sugar control. Blood pressure control. Pain control. Resume home medications. CBC and BMP in the morning. OT/PT. Dietary evaluation. Dr. White, Dr. Paz, Dr. Alejo, Dr. Metzger, Dr. Salinas and Dr. Melissa to consult. We will continue to follow this patient. Brandon Arana D.O. DR: TRIXIE JOB#: [id number] CC:
[2017-04-14] MEDS: Lisinopril 10mg tab ORAL SCH (21:17)
[2017-04-14] MEDS: Depakote ER 500mg tab ORAL SCH (21:18)
--- NOTE | 2017-04-14 22:01 | Consultation ---
DATE OF CONSULTATION: INFECTIOUS DISEASE CONSULTATION CONSULTING PHYSICIAN: Choco Lozada M.D. REQUESTING PHYSICIAN: Brandon Arana D.O. REASON FOR CONSULTATION: Sepsis, UTI, leukocytosis, recommendation for antibiotic treatment. HISTORY OF PRESENT ILLNESS: The patient is a 41-year-old female with psychiatric history and poorly controlled diabetes, who had multiple admissions in the past due to uncontrolled diabetes, DKA, was sent to the emergency room at [facility] with nausea, vomiting, and abdominal pain which started the day prior. Her pain was 10/10, nonradiating, multiple episodes of vomiting with the pain. The patient had no fever or chills. The patient is a poorly controlled diabetic. Her sugar was found to be elevated in the emergency room. She was afebrile and saturating 98% on room air. Her white count was found to be elevated around 18,400. Her creatinine was up. She was dehydrated. Urinalysis showed evidence of infection. I was consulted by the primary provider for antibiotic treatment and management. As of now, the patient is psych, poor historian, cannot provide any history at this point. History was mainly obtained from the medical record. PAST MEDICAL HISTORY: Significant for psychiatric disorder, hypertension, diabetes, GI problems, seizure disorder, and fatigue. PAST SURGICAL HISTORY: Negative. MEDICATIONS: The patient has been started on insulin long-acting and sliding scale. For the rest of her medications, please refer to MAR. ALLERGIES: She has no known drug allergy. SOCIAL HISTORY: Unclear where she lives. Unclear whether she had recent drugs, tobacco, or alcohol. FAMILY HISTORY: Unable to obtain. PHYSICAL EXAMINATION: GENERAL: A young female, lying in bed, psychotic, alert, not in distress. VITAL SIGNS: Temperature 97.9 degrees, pulse 89, respirations 18, blood pressure 185/108, and pulse oximetry 100% on room air. HEENT: Normocephalic and atraumatic. Pupils are reactive to light. Poor dental hygiene. Dry oral mucosa. NECK: Supple. No lymphadenopathy. CARDIOVASCULAR: Regular rate and rhythm. No murmur. LUNGS: Clear bilaterally. No wheezing or rhonchi. ABDOMEN: Soft, nontender, and nondistended. Positive bowel sounds. No hepatosplenomegaly. No ascites. EXTREMITIES: No edema or cyanosis. LABORATORY AND DIAGNOSTIC DATA: White count of 20,100 with hemoglobin of 10.9 and platelet count of 262,000. BUN of 18 and creatinine of 1.3. Toxicology screening showed acetone level positive in the serum. Urinalysis showed +3 leukocyte esterase, 5-10 red blood cells, 30-40 white cell count, and few bacteria. Microbiology, urine culture is pending. Imaging, none done. ASSESSMENT AND PLAN: 1. Elevated white count, rule out sepsis. We will start the patient on cefepime empiric treatment pending culture results. 2. Urinary tract infection. We will start cefepime and send urine for culture. 3. Hyperglycemia, poorly controlled diabetes. Recommend tight glycemic control to keep blood glucose between 80 to 120. 4. Diabetic ketoacidosis. Recommend insulin. Adjustment in her medication for better glycemic control to keep blood glucose less than 120 fasting and less than 130 before meals. Thank you. Choco Lozada M.D. DR: MAIRA JOB#: [id number] CC:
--- NOTE | 2017-04-14 22:38 | Pulmonology Progress Note ---
Subjective Allergies: Coded Allergies: No Known Allergies (Verified , NONE, 10/30/05) Objective Last 24 Hour Vital Signs Date Time Temp Pulse Resp B/P Pulse Ox O2 Delivery O2 Flow Rate FiO2 04/14/17 21:17 190/120 04/14/17 21:17 89 190/120 04/14/17 18:56 83 16 Room Air 04/14/17 17:20 97.8 83 20 151/90 100 Room Air 04/14/17 17:00 80 04/14/17 16:30 97.0 04/14/17 16:00 97.2 86 18 178/115 100 Room Air 04/14/17 12:08 185/108 04/14/17 12:00 97.9 89 18 185/108 100 Room Air 04/14/17 00:00 97.0 98 24 162/106 100 Room Air Intake and Output 04/13/17 04/14/17 19:00 07:00 Intake Total 1460 ml 1350 ml Balance 1460 ml 1350 ml Intake Oral 360 ml IV Total 1100 ml 1350 ml # Voids 2 3 Microbiology Date/Time Source Procedure Growth Status 04/12/17 13:34 Urine,Clean Catch Urine Culture - Preliminary Resulted Laboratory Tests 04/14/17 07:40: White Blood Count 12.4H, Red Blood Count 4.23, Hemoglobin 12.4, Hematocrit 40.5 , Mean Corpuscular Volume 96, Mean Corpuscular Hemoglobin 29.4, Mean Corpuscular Hemoglobin Concent 30.7L, Red Cell Distribution Width 15.1H, Platelet Count 262, Mean Platelet Volume 7.7, Neutrophils (%) (Auto) 81.4H, Lymphocytes (%) (Auto) 11.1L, Monocytes (%) (Auto) 6.4, Eosinophils (%) (Auto) 0.8, Basophils (%) (Auto) 0.3, Sodium Level 147H, Potassium Level 4.1, Chloride Level 107, Carbon Dioxide Level 20, Anion Gap 20H, Blood Urea Nitrogen 18, Creatinine 1.3H, Estimat Glomerular Filtration Rate 55.3, Glucose Level 159#H, Calcium Level 9.4 Current Medications Medications (Trade) Dose Ordered Sig/Mateo Route PRN Reason Start Time Stop Time Status Last Admin Dose Admin Acetaminophen (Tylenol) 650 mg Q4H PRN ORAL fever 04/14/17 18:30 05/14/17 18:29 Al Hydroxide/Mg Hydroxide (Mylanta II) 30 ml Q6H PRN ORAL dyspepsia 04/14/17 18:30 05/14/17 18:29 Albuterol/ Ipratropium (DuoNeb 0.5-3(2.5)mg/3ml) 3 ml Q4H PRN HHN Shortness of Breath 04/14/17 18:30 04/19/17 18:29 Amlodipine Besylate (Norvasc) 5 mg Q12HR ORAL 04/14/17 21:00 05/14/17 20:59 04/14/17 21:17 Calcium Carbonate (Tums) 500 mg DAILY ORAL 04/15/17 09:00 05/15/17 08:59 Cefepime HCl 1 gm/ Dextrose 55 ml @ 110 mls/hr Q12H IVPB 04/14/17 22:00 04/21/17 21:59 04/14/17 22:20 Clonidine HCl (Catapres) 0.1 mg Q4H PRN ORAL SBP > 160 04/14/17 18:30 05/14/17 18:29 Dextrose (Dextrose 50%) STAT PRN IV Hypoglycemia 04/14/17 18:30 05/14/17 18:29 Divalproex Sodium (Depakote ER) 500 mg BEDTIME ORAL 04/14/17 21:00 05/14/17 20:59 04/14/17 21:18 Heparin Sodium (Porcine) (Heparin 5000 units/ml) 5,000 units EVERY 12 HOURS SUBQ 04/14/17 21:00 05/14/17 20:59 04/14/17 21:22 Insulin Aspart (NovoLOG) BEFORE MEALS AND HS SUBQ 04/14/17 21:00 05/14/17 20:59 04/14/17 21:25 Insulin Aspart (NovoLOG) 4 units NOVOTIAC SUBQ 04/15/17 06:30 05/15/17 06:29 Insulin Detemir (Levemir) 15 units BID SUBQ 04/14/17 19:00 05/14/17 18:59 Ketorolac Tromethamine (Toradol 30mg) 30 mg Q6H PRN IV moderate pain 4-6 04/14/17 18:30 04/19/17 18:29 Lisinopril (Zestril) 10 mg Q12HR ORAL 04/14/17 21:00 05/14/17 20:59 04/14/17 21:17 Morphine Sulfate (Morphine Sulfate) 2 mg Q4H PRN IVP severe pain 7-10 04/14/17 18:30 04/21/17 18:29 04/14/17 22:21 Nitroglycerin (Ntg) 0.4 mg Q5M X 3 DOSES PRN SL Prn Chest Pain 04/14/17 18:00 05/14/17 17:59 Ondansetron HCl (Zofran) 4 mg Q6H PRN IVP Nausea & Vomiting 04/14/17 18:30 05/14/17 18:29 04/14/17 22:04 Polyethylene Glycol (Miralax) 17 gm HSPRN PRN ORAL Constipation 04/14/17 18:30 05/14/17 18:29 Ranitidine HCl (Zantac) 150 mg 1900 ORAL 04/14/17 18:00 05/14/17 17:59 04/14/17 19:00 Sodium Chloride (Sodium Chloride 1000ml bag) 1,000 ml @ 150 mls/hr Q6H40M IVLG 04/14/17 18:30 05/14/17 18:29 04/14/17 22:34 Temazepam (Restoril) 15 mg HSPRN PRN ORAL Insomnia 04/14/17 18:30 04/21/17 18:29 MILA LAINEZ April 14, 2017 22:38
[2017-04-15] VITALS: BP 147/88
--- NOTE | 2017-04-15 01:15 | Consultation ---
DATE OF CONSULTATION: 04/14/2017 CARDIOLOGY CONSULTATION REFERRING PHYSICIAN: Brandon Arana D.O. REASON FOR CONSULTATION: Management of hypertension. HISTORY OF PRESENT ILLNESS: The patient is a 41-year-old lady with a history of hypertension, psychiatric disorder as well as type 2 diabetes, gastroesophageal reflux disease, seizure disorder, and renal failure. She was very noncompliant during her insulin regimen. The patient came into the emergency room for uncontrolled diabetes, also found to have accelerated hypertension. Initially the patient was on non-monitored bed, but then today because of persistent high blood pressure the patient was discharged to the telemetry. At the time of my evaluation, the patient complains of abdominal pain, but denies any chest pain or shortness of breath. REVIEW OF SYSTEMS: Review of systems was negative other than what was mentioned in the history of present illness. PAST MEDICAL HISTORY: 1. History of hypertension. 2. Type 2 diabetes. 3. Seizure disorder. 4. Renal failure. 5. Gastroesophageal reflux disease. 6. Psychiatric illness. MEDICATIONS: Per reconciliation. ALLERGIES: No known drug allergies. SOCIAL HISTORY: Does not smoke or drink alcohol. PHYSICAL EXAMINATION: VITAL SIGNS: Blood pressure is 178/115, earlier it was 185/108, pulse 86, respirations 18, and temperature 97.2 degrees. HEAD AND NECK: Showed no JVD. LUNGS: Clear. CARDIOVASCULAR: Shows regular S1 and S2 with no gallop or murmur. ABDOMEN: Soft. EXTREMITIES: No pitting edema. LABORATORY AND DIAGNOSTIC DATA: White count was 20.1, and then went down to 12.4, hemoglobin 12, hematocrit 40, and platelet count of 262,000. Sodium is 147, potassium is 4.1, BUN of 18, creatinine is 1.9, went down to 1.3, and glucose 169. Her ketone in the urine was more positive. Urinalysis shows 30-40 WBC, 3+ leukocyte esterase, 4+ glucose and 4+ ketone. ASSESSMENT AND PLAN: 1. Accelerated hypertension. The patient was on Norvasc 5 mg daily and we changed it to 5 mg b.i.d. We did start the patient also on lisinopril 10 mg b.i.d. to prevent proteinuria. The patient has diabetes. I will get also an echocardiogram to evaluate ejection fraction and wall motion abnormality. 2. Diabetes, on insulin. 3. White count of 20,000, could be secondary to patient's diabetic ketoacidosis. The patient was followed by Dr. Lozada and started on cefepime empirically for urinary tract infection. 4. Diabetic ketoacidosis. Thank very much, Dr. Arana, for allowing me to participate in the care of this patient. Please do not hesitate to contact me for any questions regarding my evaluation. Rell Salinas M.D. DR: Jann JOB#: [id number] CC:
[2017-04-15 04:00] VITALS: BP 133/79
[2017-04-15] MEDS: NovoLOG Insulin Flexpen SUBQ SCH ×7 (07:14→20:19)
[2017-04-15 07:34] VITALS: BP 185/115
--- NOTE | 2017-04-15 07:37 | General Progress Note ---
Assessment/Plan Problem List: (1) Diabetes ICD Codes: E11.9 - Type 2 diabetes mellitus without complications SNOMED: 34035122 (2) DKA (diabetic ketoacidoses) ICD Codes: E13.10 - Other specified diabetes mellitus with ketoacidosis without coma SNOMED: 84310818, 824739417 (3) Psychiatric disorder ICD Codes: F99 - Mental disorder, not otherwise specified SNOMED: 41265380, 069600870 (4) HTN (hypertension) ICD Codes: I10 - Essential (primary) hypertension SNOMED: 61343133 Assessment/Plan AG improved - continue IV hydration w/ NS - reduce Levemir to 8 units bid - continue Novolog 4 units ac tid + SSI Subjective ROS Limited/Unobtainable: Yes Allergies: Coded Allergies: No Known Allergies (Verified , NONE, 10/30/05) Subjective arousable - NAD Objective Last 24 Hour Vital Signs Date Time Temp Pulse Resp B/P Pulse Ox O2 Delivery O2 Flow Rate FiO2 04/15/17 04:00 97.8 106 22 133/79 96 Nasal Cannula 2.0 04/15/17 00:00 97.7 80 21 147/88 99 Room Air 04/15/17 00:00 75 04/14/17 21:17 190/120 04/14/17 21:17 89 190/120 04/14/17 20:01 98.1 89 14 190/120 100 Room Air 04/14/17 20:00 89 04/14/17 18:56 83 16 Room Air 04/14/17 17:20 97.8 83 20 151/90 100 Room Air 04/14/17 17:00 80 04/14/17 16:30 97.0 04/14/17 16:00 97.2 86 18 178/115 100 Room Air 04/14/17 12:08 185/108 04/14/17 12:00 97.9 89 18 185/108 100 Room Air Intake and Output 04/14/17 04/15/17 19:00 07:00 Intake Total 300 ml Balance 300 ml Intake Oral 300 ml # Voids 1 1 Laboratory Tests 04/14/17 07:40: White Blood Count 12.4H, Red Blood Count 4.23, Hemoglobin 12.4, Hematocrit 40.5 , Mean Corpuscular Volume 96, Mean Corpuscular Hemoglobin 29.4, Mean Corpuscular Hemoglobin Concent 30.7L, Red Cell Distribution Width 15.1H, Platelet Count 262, Mean Platelet Volume 7.7, Neutrophils (%) (Auto) 81.4H, Lymphocytes (%) (Auto) 11.1L, Monocytes (%) (Auto) 6.4, Eosinophils (%) (Auto) 0.8, Basophils (%) (Auto) 0.3, Sodium Level 147H, Potassium Level 4.1, Chloride Level 107, Carbon Dioxide Level 20, Anion Gap 20H, Blood Urea Nitrogen 18, Creatinine 1.3H, Estimat Glomerular Filtration Rate 55.3, Glucose Level 159#H, Calcium Level 9.4 Height (Feet): 5 Height (Inches): 6.00 Weight (Pounds): 130 General Appearance: no apparent distress Neck: normal alignment Cardiovascular: normal rate Respiratory/Chest: lungs clear Abdomen: normal bowel sounds Pelvis: normal external exam Objective Current Medications Medications (Trade) Dose Ordered Sig/Mateo Route PRN Reason Start Time Stop Time Status Last Admin Dose Admin Acetaminophen (Tylenol) 650 mg Q4H PRN ORAL fever 04/14/17 18:30 05/14/17 18:29 Al Hydroxide/Mg Hydroxide (Mylanta II) 30 ml Q6H PRN ORAL dyspepsia 04/14/17 18:30 05/14/17 18:29 Albuterol/ Ipratropium (DuoNeb 0.5-3(2.5)mg/3ml) 3 ml Q4H PRN HHN Shortness of Breath 04/14/17 18:30 04/19/17 18:29 Amlodipine Besylate (Norvasc) 5 mg Q12HR ORAL 04/14/17 21:00 05/14/17 20:59 04/14/17 21:17 Calcium Carbonate (Tums) 500 mg DAILY ORAL 04/15/17 09:00 05/15/17 08:59 Cefepime HCl 1 gm/ Dextrose 55 ml @ 110 mls/hr Q12H IVPB 04/14/17 22:00 04/21/17 21:59 04/14/17 22:20 Clonidine HCl (Catapres) 0.1 mg Q4H PRN ORAL SBP > 160 04/14/17 18:30 05/14/17 18:29 Dextrose (Dextrose 50%) STAT PRN IV Hypoglycemia 04/14/17 18:30 05/14/17 18:29 Divalproex Sodium (Depakote ER) 500 mg BEDTIME ORAL 04/14/17 21:00 05/14/17 20:59 04/14/17 21:18 Heparin Sodium (Porcine) (Heparin 5000 units/ml) 5,000 units EVERY 12 HOURS SUBQ 04/14/17 21:00 05/14/17 20:59 04/14/17 21:22 Insulin Aspart (NovoLOG) BEFORE MEALS AND HS SUBQ 04/14/17 21:00 05/14/17 20:59 04/15/17 07:15 Insulin Aspart (NovoLOG) 4 units NOVOTIAC SUBQ 04/15/17 06:30 05/15/17 06:29 04/15/17 07:14 Insulin Detemir (Levemir) 15 units BID SUBQ 04/14/17 19:00 05/14/17 18:59 Ketorolac Tromethamine (Toradol 30mg) 30 mg Q6H PRN IV moderate pain 4-6 04/14/17 18:30 04/19/17 18:29 Lisinopril (Zestril) 10 mg Q12HR ORAL 04/14/17 21:00 05/14/17 20:59 04/14/17 21:17 Morphine Sulfate (Morphine Sulfate) 2 mg Q4H PRN IVP severe pain 7-10 04/14/17 18:30 04/21/17 18:29 04/14/17 22:21 Nitroglycerin (Ntg) 0.4 mg Q5M X 3 DOSES PRN SL Prn Chest Pain 04/14/17 18:00 05/14/17 17:59 Ondansetron HCl (Zofran) 4 mg Q6H PRN IVP Nausea & Vomiting 04/14/17 18:30 05/14/17 18:29 04/15/17 06:45 Polyethylene Glycol (Miralax) 17 gm HSPRN PRN ORAL Constipation 04/14/17 18:30 05/14/17 18:29 Ranitidine HCl (Zantac) 150 mg 1900 ORAL 04/14/17 18:00 05/14/17 17:59 04/14/17 19:00 Sodium Chloride (Sodium Chloride 1000ml bag) 1,000 ml @ 150 mls/hr Q6H40M IVLG 04/14/17 18:30 05/14/17 18:29 04/15/17 07:00 Temazepam (Restoril) 15 mg HSPRN PRN ORAL Insomnia 04/14/17 18:30 04/21/17 18:29 Item Value Date Time Bedside Blood Glucose 127 mg/dl H 04/15/17 0715 Bedside Blood Glucose 143 mg/dl H 04/14/17 2125 Bedside Blood Glucose 74 mg/dl 04/14/17 1650 Bedside Blood Glucose 155 mg/dl H 04/14/17 1150 Bedside Blood Glucose 127 mg/dl H 04/14/17 0933 FRANCES BRADLEY April 15, 2017 07:37
[2017-04-15 08:10] LABS: BASOPHILS % (AUTO) 0.6 % (0.0-2.0); EOSINOPHILS % (AUTO) 2.5 % (0.0-3.0); LYMPHOCYTES % (AUTO) 19.8 % (20.0-45.0); MEAN CORPUSCULAR HEMOGLOBIN 29.9 PG (27.0-31.0); MEAN CORPUSCULAR HGB CONC 31.9 G/DL (32.0-36.0); MEAN CORPUSCULAR VOLUME 94 FL (80-99); MEAN PLATELET VOLUME 7.7 FL (6.5-10.1); NEUTROPHILS % (AUTO) 70.1 % (45.0-75.0); PLATELET COUNT 207 K/UL (150-450); RED BLOOD COUNT 3.94 M/UL (4.20-5.40); RED CELL DISTRIBUTION WIDTH 14.6 % (11.6-14.8); WHITE BLOOD COUNT 9.1 K/UL (4.8-10.8)
[2017-04-15] MEDS: Lisinopril 10mg tab ORAL SCH ×2 (08:28→20:07)
[2017-04-15] MEDS: Tums 500mg ORAL SCH (08:29)
[2017-04-15 08:30] LABS: ANION GAP 16 (5-15); CALCIUM 8.8 mg/dL (8.6-10.2); CARBON DIOXIDE 24 mEQ/L (20-30); CHLORIDE 102 mEQ/L (98-107); CREATININE 1.1 mg/dL (0.5-0.9); GLOMERULAR FILTRATION RATE > 60 mL/min (>60); HEMOLYSIS 0; POTASSIUM 3.4 mEQ/L (3.4-4.9); SODIUM 142 mEQ/L (135-145)
[2017-04-15] MEDS: Heparin 5000 units/ml inj SUBQ SCH ×2 (08:32→20:20)
[2017-04-15] MEDS: Cefepime HCl 1 GM in D5W 55 ML IVPB SCH (09:33)
[2017-04-15] MEDS: Levemir Flexpen SUBQ SCH ×2 (09:35→18:09)
[2017-04-15] MEDS ORDERED: Dyna-Hex 2% Top Sol 8oz TOPIC SCH (11:00)
[2017-04-15 12:00] VITALS: BP 137/102
--- NOTE | 2017-04-15 13:35 | General Progress Note ---
Assessment/Plan Problem List: (1) Psychiatric disorder ICD Codes: F99 - Mental disorder, not otherwise specified SNOMED: 49580030, 897409864 (2) Diabetes ICD Codes: E11.9 - Type 2 diabetes mellitus without complications SNOMED: 59396152 (3) Altered mental status ICD Codes: R41.82 - Altered mental status, unspecified SNOMED: 801532256 (4) HTN (hypertension) ICD Codes: I10 - Essential (primary) hypertension SNOMED: 01836171 (5) Gastroparesis due to DM ICD Codes: E11.43 - Type 2 diabetes mellitus with diabetic autonomic (poly) neuropathy; K31.84 - Gastroparesis SNOMED: 64944263, 458459703 Status: stable, progressing, tolerating diet Assessment/Plan ot pt diet bp bs control cbc bmp am dc plan Subjective Constitutional: Reports: weakness Allergies: Coded Allergies: No Known Allergies (Verified , NONE, 10/30/05) All Systems: reviewed and negative except above Subjective sl anxious in room Objective Last 24 Hour Vital Signs Date Time Temp Pulse Resp B/P Pulse Ox O2 Delivery O2 Flow Rate FiO2 04/15/17 12:00 98.1 92 18 137/102 98 Room Air 04/15/17 12:00 83 04/15/17 09:28 85 16 Room Air 04/15/17 08:29 97 185/115 04/15/17 08:28 185/115 04/15/17 08:00 87 04/15/17 07:34 98.2 97 18 185/115 100 Room Air 04/15/17 04:00 72 04/15/17 04:00 97.8 106 22 133/79 96 Nasal Cannula 2.0 04/15/17 00:00 97.7 80 21 147/88 99 Room Air 04/15/17 00:00 75 04/14/17 21:17 190/120 04/14/17 21:17 89 190/120 04/14/17 20:01 98.1 89 14 190/120 100 Room Air 04/14/17 20:00 89 04/14/17 18:56 83 16 Room Air 04/14/17 17:20 97.8 83 20 151/90 100 Room Air 04/14/17 17:00 80 04/14/17 16:30 97.0 04/14/17 16:00 97.2 86 18 178/115 100 Room Air Intake and Output 04/14/17 04/15/17 19:00 07:00 Intake Total 1910 ml Balance 1910 ml Intake Oral 300 ml IV Total 1610 ml # Voids 1 1 Laboratory Tests 04/15/17 07:00: White Blood Count 9.1, Red Blood Count 3.94L, Hemoglobin 11.8L, Hematocrit 36.9L , Mean Corpuscular Volume 94, Mean Corpuscular Hemoglobin 29.9, Mean Corpuscular Hemoglobin Concent 31.9L, Red Cell Distribution Width 14.6, Platelet Count 207, Mean Platelet Volume 7.7, Neutrophils (%) (Auto) 70.1, Lymphocytes (%) (Auto) 19.8L, Monocytes (%) (Auto) 7.0, Eosinophils (%) (Auto) 2.5, Basophils (%) (Auto) 0.6, Sodium Level 142, Potassium Level 3.4, Chloride Level 102, Carbon Dioxide Level 24, Anion Gap 16H, Blood Urea Nitrogen 12, Creatinine 1.1H, Estimat Glomerular Filtration Rate > 60, Glucose Level 147H, Calcium Level 8.8 Height (Feet): 5 Height (Inches): 6.00 Weight (Pounds): 130 General Appearance: alert EENT: normal ENT inspection Neck: normal alignment Cardiovascular: normal peripheral pulses, normal rate, regular rhythm Respiratory/Chest: chest wall non-tender, lungs clear, normal breath sounds Abdomen: normal bowel sounds, non tender, soft Extremities: normal inspection Edema: no edema noted Arm (L), no edema noted Arm (R), no edema noted Leg (L), no edema noted Leg (R), no edema noted Pedal (L), no edema noted Pedal (R), no edema noted Generalized Neurologic: responsive, motor weakness Skin: normal pigmentation, warm/dry ENOCH GONZALEZ April 15, 2017 13:35
--- NOTE | 2017-04-15 14:36 | GI Initial Consult Note ---
History of Present Illness General Date patient seen: April 15, 2017 Time patient seen: 14:25 Reason for Hospitalization: Nausea Referring physician: dr Arana Reason for Consultation: NAUSEA/VOMITTING Present Illness HPI 41-year-old female presents to ED complaining of abdominal pain with nausea and vomiting. States symptoms started today. Patient states the pain is sharp, 10 out of 10, nonradiating. The multiple episodes of vomiting. Patient notes history of pancreatitis. Denies fevers or chills. Patient well known to [facility] has been here multiple times in the past for similar presentation. Also a diabetic which is poorly controlled. No other aggravating relieving factors. Denies any other associated symptoms. GI CONSULT: HPI as noted above. GI consulted for N/V. Pt seen on floor, awake and alert with no active s/sx of N/V/D. Patient is a readmission here at [place], s/p EGD on 02/08/17 (see report below), presents today with anemia and c /o of nausea and vomiting x 2 days. Tobacco user. Denies ETOH and IVDA. Date of Service: 02/08/17 SURGEON: Jarek Escalante M.D. PROCEDURE: Upper endoscopy with biopsy. INDICATION: Esophagitis lung CT and esophageal wall thickening. SUMMARY FINDINGS: 1. Severe distal esophagitis with some white discharge only suspicious for candidal status post biopsy. 2. Gastritis, status post biopsy. Home Meds Reported Medications Insulin Lispro (HUMALOG) 100 Unit/1 Ml Cartridge, 5 SUBQ AC, #1 UNITS 0 Refills 02/18/17 Insulin Glargine (LANTUS) 100 Unit/1 Ml Insuln.pen, 15 SUBQ DAILY, #1 EA 0 Refills 02/18/17 Insulin Lispro (HUMALOG) 100 Unit/1 Ml Cartridge, 0 SUBQ BEFORE MEALS, #1 UNITS 0 Refills 02/18/17 Insulin Glargine (LANTUS) 100 Unit/1 Ml Insuln.pen, 0 SUBQ DAILY, #1 EA 0 Refills 02/18/17 Divalproex Sodium* (DEPAKOTE ER*) 250 Mg Tab.er.24h, 250 MG ORAL BEDTIME for 30 Days, TAB 02/18/17 Divalproex Sodium (DIVALPROEX SODIUM ER) 500 Mg Tab.er.24h, 500 MG PO BEDTIME, TAB 02/18/17 Insulin Detemir (LEVEMIR) 100 Unit/1 Ml Vial, 0 SUBQ BEDTIME, VIAL 02/14/17 Insulin Aspart (Novolog Flexpen) 100 Unit/1 Ml Insuln.pen, SUBQ TID Y for SLIDING SCALE 02/14/17 Sennosides (SENNA) 8.6 Mg Tablet, 8.6 MG PO DAILY Y for Constipation, TAB 02/14/17 Calcium Carbonate (CALCIUM) 600 Mg Tablet, 600 MG PO DAILY, TAB 02/14/17 Thiamine Hcl* (VITAMIN B-1*) 100 Mg Tablet, 100 MG ORAL DAILY 02/14/17 Cholecalciferol (Vitamin D3)* (VITAMIN D*) 1,000 Unit Tablet, 1000 UNIT ORAL DAILY 02/14/17 Amlodipine Besylate (Norvasc) 5 Mg Tablet, 5 MG ORAL DAILY, TAB 02/13/17 Pantoprazole* (PROTONIX*) 40 Mg Tablet.dr, 40 MG ORAL DAILY, TAB 02/13/17 Ranitidine Hcl* (ZANTAC*) 150 Mg Tablet, 150 MG ORAL TWICE A DAY, TAB 02/13/17 Sucralfate* (CARAFATE*) 1 Gm Tablet, 1 GM ORAL FOUR TIMES A DAY, TAB 02/13/17 Med list reviewed/reconciled: Yes Allergies: Coded Allergies: No Known Allergies (Verified , NONE, 10/30/05) Patient History Limited by: medical condition History Provided By: Medical Record PM Narrative Past Medical History: DM, HTN Past Surgical History: none Pertinent Family History: none Social History: Denies: alcohol use, drug use, smoking Now: No Immunizations: UTD Reviewed Nursing Documentation: PMH: Agreed, PSxH: Agreed Nursing Documentation-PM Past Medical History: No History, Except For Hx Cardiac Problems: Yes Hx Hypertension: Yes Hx Diabetes: Yes Hx Cancer: No Hx Gastrointestinal Problems: Yes Hx Neurological Problems: Yes Hx Seizures: Yes Hx Vertigo: Yes Hx Dizziness: Yes Hx Headaches: Yes Hx Weakness: Yes Hx Fatigue: Yes Hx Neurologic Surgery: No Social History: Reports: smoking Review of Systems All Other Systems: negative except mentioned in HPI Physical Exam Vital Signs Date Time Temp Pulse Resp B/P Pulse Ox O2 Delivery O2 Flow Rate FiO2 04/12/17 11:17 98.2 88 20 180/100 98 Room Air 04/15/17 04:00 2.0 Sp02 EP Interpretation: reviewed Labs Laboratory Tests Test 04/15/17 07:00 White Blood Count 9.1 K/UL (4.8-10.8) Red Blood Count 3.94 M/UL (4.20-5.40) L Hemoglobin 11.8 G/DL (12.0-16.0) L Hematocrit 36.9 % (37.0-47.0) L Mean Corpuscular Volume 94 FL (80-99) Mean Corpuscular Hemoglobin 29.9 PG (27.0-31.0) Mean Corpuscular Hemoglobin Concent 31.9 G/DL (32.0-36.0) L Red Cell Distribution Width 14.6 % (11.6-14.8) Platelet Count 207 K/UL (150-450) Mean Platelet Volume 7.7 FL (6.5-10.1) Neutrophils (%) (Auto) 70.1 % (45.0-75.0) Lymphocytes (%) (Auto) 19.8 % (20.0-45.0) L Monocytes (%) (Auto) 7.0 % (1.0-10.0) Eosinophils (%) (Auto) 2.5 % (0.0-3.0) Basophils (%) (Auto) 0.6 % (0.0-2.0) Sodium Level 142 mEQ/L (135-145) Potassium Level 3.4 mEQ/L (3.4-4.9) Chloride Level 102 mEQ/L (98-107) Carbon Dioxide Level 24 mEQ/L (20-30) Anion Gap 16 (5-15) H Blood Urea Nitrogen 12 mg/dL (7-23) Creatinine 1.1 mg/dL (0.5-0.9) H Estimat Glomerular Filtration Rate > 60 mL/min (>60) Glucose Level 147 mg/dL (74-106) H Calcium Level 8.8 mg/dL (8.6-10.2) General Appearance: alert, thin, other - confused Head: normocephalic EENT: normal ENT inspection Neck: supple Respiratory: normal breath sounds Cardiovascular: normal rate Gastrointestinal: normal inspection, non tender, soft Neurologic: alert Skin: normal inspection, normal color, no rash Lymphatic: normal inspection, no adenopathy Current Medications Current Medications Medications (Trade) Dose Ordered Sig/Mateo Route PRN Reason Start Time Stop Time Status Last Admin Dose Admin Acetaminophen (Tylenol) 650 mg Q4H PRN ORAL fever 04/14/17 18:30 05/14/17 18:29 Al Hydroxide/Mg Hydroxide (Mylanta II) 30 ml Q6H PRN ORAL dyspepsia 04/14/17 18:30 05/14/17 18:29 Albuterol/ Ipratropium (DuoNeb 0.5-3(2.5)mg/3ml) 3 ml Q4H PRN HHN Shortness of Breath 04/14/17 18:30 04/19/17 18:29 Amlodipine Besylate (Norvasc) 5 mg Q12HR ORAL 04/14/17 21:00 05/14/17 20:59 04/15/17 08:29 Calcium Carbonate (Tums) 500 mg DAILY ORAL 04/15/17 09:00 05/15/17 08:59 04/15/17 08:29 Cefepime HCl 1 gm/ Dextrose 55 ml @ 110 mls/hr Q12H IVPB 04/14/17 22:00 04/21/17 21:59 04/15/17 09:33 Chlorhexidine Gluconate (Mara-Hex 2%) 1 applic Q24H TOPIC 04/16/17 00:00 05/16/17 00:00 Clonidine HCl (Catapres) 0.1 mg Q4H PRN ORAL SBP > 160 04/14/17 18:30 05/14/17 18:29 Dextrose (Dextrose 50%) STAT PRN IV Hypoglycemia 04/14/17 18:30 05/14/17 18:29 Divalproex Sodium (Depakote ER) 500 mg BEDTIME ORAL 04/14/17 21:00 05/14/17 20:59 04/14/17 21:18 Heparin Sodium (Porcine) (Heparin 5000 units/ml) 5,000 units EVERY 12 HOURS SUBQ 04/14/17 21:00 05/14/17 20:59 04/15/17 08:32 Insulin Aspart (NovoLOG) BEFORE MEALS AND HS SUBQ 04/14/17 21:00 05/14/17 20:59 04/15/17 07:15 Insulin Aspart (NovoLOG) 4 units NOVOTIAC SUBQ 04/15/17 06:30 05/15/17 06:29 04/15/17 07:14 Insulin Detemir (Levemir) 8 units BID SUBQ 04/15/17 09:00 05/15/17 08:59 04/15/17 09:35 Ketorolac Tromethamine (Toradol 30mg) 30 mg Q6H PRN IV moderate pain 4-6 04/14/17 18:30 04/19/17 18:29 Lisinopril (Zestril) 10 mg Q12HR ORAL 04/14/17 21:00 05/14/17 20:59 04/15/17 08:28 Morphine Sulfate (Morphine Sulfate) 2 mg Q4H PRN IVP severe pain 7-10 04/14/17 18:30 04/21/17 18:29 04/14/17 22:21 Nitroglycerin (Ntg) 0.4 mg Q5M X 3 DOSES PRN SL Prn Chest Pain 04/14/17 18:00 05/14/17 17:59 Ondansetron HCl (Zofran) 4 mg Q6H PRN IVP Nausea & Vomiting 04/14/17 18:30 05/14/17 18:29 04/15/17 06:45 Polyethylene Glycol (Miralax) 17 gm HSPRN PRN ORAL Constipation 04/14/17 18:30 05/14/17 18:29 Ranitidine HCl (Zantac) 150 mg 1900 ORAL 04/14/17 18:00 05/14/17 17:59 04/14/17 19:00 Sodium Chloride (Sodium Chloride 1000ml bag) 1,000 ml @ 150 mls/hr Q6H40M IVLG 04/14/17 18:30 05/14/17 18:29 04/15/17 14:18 Temazepam (Restoril) 15 mg HSPRN PRN ORAL Insomnia 04/14/17 18:30 04/21/17 18:29 GI: Plan Problems: (1) Intractable nausea and vomiting (2) Abnormal white blood cell (WBC) count (3) Altered mental status (4) Psychiatric disorder (5) Anemia (6) Gastroparesis due to DM (7) esophageal wall thickening Plan Date of Service: 02/08/17 PROCEDURE: Upper endoscopy with biopsy. INDICATION: Esophagitis lung CT and esophageal wall thickening. SUMMARY FINDINGS: 1. Severe distal esophagitis with some white discharge only suspicious for candidal status post biopsy. >> negative for fungal organisms. Revealed sloughing inflamed necrotic tissue with neutrophils, see full pathology report. 2. Gastritis, status post biopsy. >> unremarkable HgA1C >> 9.0 elevated triglycerides symptomatic treatment at this time reglan for GI motility zofran prn monitor H&H, transfuse prn ordered iron panel ST eval noted >> FLD cont ppi abx fu labs Discussed with Dr. Vickers. Thank you for referring this patient, we will follow. Muriel Serra N.P. April 15, 2017 14:36
--- NOTE | 2017-04-15 15:01 | Infectious Diseases Prog Note ---
Assessment/Plan Problems: (1) Abnormal white blood cell (WBC) count Assessment & Plan: suspect due to dehydration , with negative work up for infection , will stop cefepime empirically (2) UTI (urinary tract infection) Assessment & Plan: with culture grew strep spp, most likely contamination, will stop cefepime empirically (3) Hyperglycemia Assessment & Plan: due to non complaint with meds, recommend counseling , and tight glycemic control to keep blood glucose between 80-120 (4) DKA (diabetic ketoacidoses) Assessment & Plan: continue long acting insuline with sliding scale to keep tight glycemic control Subjective ROS Limited/Unobtainable: Yes Allergies: Coded Allergies: No Known Allergies (Verified , NONE, 10/30/05) Subjective she was up in bed, but agitated, dosen't follow commands Objective Vital Signs Last 24 Hour Vital Signs Date Time Temp Pulse Resp B/P Pulse Ox O2 Delivery O2 Flow Rate FiO2 04/15/17 12:00 98.1 92 18 137/102 98 Room Air 04/15/17 12:00 83 04/15/17 09:28 85 16 Room Air 04/15/17 08:29 97 185/115 04/15/17 08:28 185/115 04/15/17 08:00 87 04/15/17 07:34 98.2 97 18 185/115 100 Room Air 04/15/17 04:00 72 04/15/17 04:00 97.8 106 22 133/79 96 Nasal Cannula 2.0 04/15/17 00:00 97.7 80 21 147/88 99 Room Air 04/15/17 00:00 75 04/14/17 21:17 190/120 04/14/17 21:17 89 190/120 04/14/17 20:01 98.1 89 14 190/120 100 Room Air 04/14/17 20:00 89 04/14/17 18:56 83 16 Room Air 04/14/17 17:20 97.8 83 20 151/90 100 Room Air 04/14/17 17:00 80 04/14/17 16:30 97.0 04/14/17 16:00 97.2 86 18 178/115 100 Room Air Height (Feet): 5 Height (Inches): 6.00 Weight (Pounds): 130 General Appearance: WD/WN, no acute distress HEENT: normocephalic, atraumatic, anicteric, mucous membranes moist Respiratory/Chest: chest wall non-tender, lungs clear, normal breath sounds, no respiratory distress, no accessory muscle use Cardiovascular: normal peripheral pulses, normal rate, regular rhythm, no gallop/murmur, no JVD Abdomen: normal bowel sounds, soft, non tender, no organomegaly, non distended , no mass Extremities: no cyanosis, no clubbing Skin: no rash, no lesions Laboratory Tests Test 04/15/17 07:00 White Blood Count 9.1 K/UL (4.8-10.8) Red Blood Count 3.94 M/UL (4.20-5.40) L Hemoglobin 11.8 G/DL (12.0-16.0) L Hematocrit 36.9 % (37.0-47.0) L Mean Corpuscular Volume 94 FL (80-99) Mean Corpuscular Hemoglobin 29.9 PG (27.0-31.0) Mean Corpuscular Hemoglobin Concent 31.9 G/DL (32.0-36.0) L Red Cell Distribution Width 14.6 % (11.6-14.8) Platelet Count 207 K/UL (150-450) Mean Platelet Volume 7.7 FL (6.5-10.1) Neutrophils (%) (Auto) 70.1 % (45.0-75.0) Lymphocytes (%) (Auto) 19.8 % (20.0-45.0) L Monocytes (%) (Auto) 7.0 % (1.0-10.0) Eosinophils (%) (Auto) 2.5 % (0.0-3.0) Basophils (%) (Auto) 0.6 % (0.0-2.0) Sodium Level 142 mEQ/L (135-145) Potassium Level 3.4 mEQ/L (3.4-4.9) Chloride Level 102 mEQ/L (98-107) Carbon Dioxide Level 24 mEQ/L (20-30) Anion Gap 16 (5-15) H Blood Urea Nitrogen 12 mg/dL (7-23) Creatinine 1.1 mg/dL (0.5-0.9) H Estimat Glomerular Filtration Rate > 60 mL/min (>60) Glucose Level 147 mg/dL (74-106) H Calcium Level 8.8 mg/dL (8.6-10.2) Current Medications Medications (Trade) Dose Ordered Sig/Mateo Route PRN Reason Start Time Stop Time Status Last Admin Dose Admin Acetaminophen (Tylenol) 650 mg Q4H PRN ORAL fever 04/14/17 18:30 05/14/17 18:29 Al Hydroxide/Mg Hydroxide (Mylanta II) 30 ml Q6H PRN ORAL dyspepsia 04/14/17 18:30 05/14/17 18:29 Albuterol/ Ipratropium (DuoNeb 0.5-3(2.5)mg/3ml) 3 ml Q4H PRN HHN Shortness of Breath 04/14/17 18:30 04/19/17 18:29 Amlodipine Besylate (Norvasc) 5 mg Q12HR ORAL 04/14/17 21:00 05/14/17 20:59 04/15/17 08:29 Calcium Carbonate (Tums) 500 mg DAILY ORAL 04/15/17 09:00 05/15/17 08:59 04/15/17 08:29 Cefepime HCl 1 gm/ Dextrose 55 ml @ 110 mls/hr Q12H IVPB 04/14/17 22:00 04/21/17 21:59 04/15/17 09:33 Chlorhexidine Gluconate (Mara-Hex 2%) 1 applic Q24H TOPIC 04/16/17 00:00 05/16/17 00:00 Clonidine HCl (Catapres) 0.1 mg Q4H PRN ORAL SBP > 160 04/14/17 18:30 05/14/17 18:29 Dextrose (Dextrose 50%) STAT PRN IV Hypoglycemia 04/14/17 18:30 05/14/17 18:29 Divalproex Sodium (Depakote ER) 500 mg BEDTIME ORAL 04/14/17 21:00 05/14/17 20:59 04/14/17 21:18 Heparin Sodium (Porcine) (Heparin 5000 units/ml) 5,000 units EVERY 12 HOURS SUBQ 04/14/17 21:00 05/14/17 20:59 04/15/17 08:32 Insulin Aspart (NovoLOG) BEFORE MEALS AND HS SUBQ 04/14/17 21:00 05/14/17 20:59 5/23/17 07:15 Insulin Aspart (NovoLOG) 4 units NOVOTIAC SUBQ 04/15/17 06:30 05/15/17 06:29 04/15/17 07:14 Insulin Detemir (Levemir) 8 units BID SUBQ 04/15/17 09:00 05/15/17 08:59 04/15/17 09:35 Ketorolac Tromethamine (Toradol 30mg) 30 mg Q6H PRN IV moderate pain 4-6 04/14/17 18:30 04/19/17 18:29 Lisinopril (Zestril) 10 mg Q12HR ORAL 04/14/17 21:00 05/14/17 20:59 04/15/17 08:28 Morphine Sulfate (Morphine Sulfate) 2 mg Q4H PRN IVP severe pain 7-10 04/14/17 18:30 04/21/17 18:29 04/14/17 22:21 Nitroglycerin (Ntg) 0.4 mg Q5M X 3 DOSES PRN SL Prn Chest Pain 04/14/17 18:00 05/14/17 17:59 Ondansetron HCl (Zofran) 4 mg Q6H PRN IVP Nausea & Vomiting 04/14/17 18:30 05/14/17 18:29 04/15/17 06:45 Polyethylene Glycol (Miralax) 17 gm HSPRN PRN ORAL Constipation 04/14/17 18:30 05/14/17 18:29 Ranitidine HCl (Zantac) 150 mg 1900 ORAL 04/14/17 18:00 05/14/17 17:59 04/14/17 19:00 Sodium Chloride (Sodium Chloride 1000ml bag) 1,000 ml @ 150 mls/hr Q6H40M IVLG 04/14/17 18:30 05/14/17 18:29 04/15/17 14:18 Temazepam (Restoril) 15 mg HSPRN PRN ORAL Insomnia 04/14/17 18:30 04/21/17 18:29 Choco Lozada M.D. April 15, 2017 15:01
--- NOTE | 2017-04-15 15:29 | Cardiac Electrophysiology PN ---
Assessment/Plan Assessment/Plan 1. Accelerated hypertension. On Norvasc 5 mg b.i.d and lisinopril 10 mg b.i.d. and prn Clonidine. Refused echo today. Reorder. 2. DKA on insulin AND ns AT 150 CC/HR 3. White count of 20,000, could be secondary to patient's diabetic ketoacidosis. Cefepime DCed today. 4. Diabetic ketoacidosis. DAVON RN Subjective Subjective Refused Echo. No chest pain. No arrhythmias on tele. Objective Last 24 Hour Vital Signs Date Time Temp Pulse Resp B/P Pulse Ox O2 Delivery O2 Flow Rate FiO2 04/15/17 12:00 98.1 92 18 137/102 98 Room Air 04/15/17 12:00 83 04/15/17 09:28 85 16 Room Air 04/15/17 08:29 97 185/115 04/15/17 08:28 185/115 04/15/17 08:00 87 04/15/17 07:34 98.2 97 18 185/115 100 Room Air 04/15/17 04:00 72 04/15/17 04:00 97.8 106 22 133/79 96 Nasal Cannula 2.0 04/15/17 00:00 97.7 80 21 147/88 99 Room Air 04/15/17 00:00 75 04/14/17 21:17 190/120 04/14/17 21:17 89 190/120 04/14/17 20:01 98.1 89 14 190/120 100 Room Air 04/14/17 20:00 89 04/14/17 18:56 83 16 Room Air 04/14/17 17:20 97.8 83 20 151/90 100 Room Air 04/14/17 17:00 80 04/14/17 16:30 97.0 04/14/17 16:00 97.2 86 18 178/115 100 Room Air Intake and Output 04/14/17 04/15/17 19:00 07:00 Intake Total 1910 ml Balance 1910 ml Intake Oral 300 ml IV Total 1610 ml # Voids 1 1 Laboratory Tests Test 04/15/17 07:00 White Blood Count 9.1 K/UL (4.8-10.8) Red Blood Count 3.94 M/UL (4.20-5.40) L Hemoglobin 11.8 G/DL (12.0-16.0) L Hematocrit 36.9 % (37.0-47.0) L Mean Corpuscular Volume 94 FL (80-99) Mean Corpuscular Hemoglobin 29.9 PG (27.0-31.0) Mean Corpuscular Hemoglobin Concent 31.9 G/DL (32.0-36.0) L Red Cell Distribution Width 14.6 % (11.6-14.8) Platelet Count 207 K/UL (150-450) Mean Platelet Volume 7.7 FL (6.5-10.1) Neutrophils (%) (Auto) 70.1 % (45.0-75.0) Lymphocytes (%) (Auto) 19.8 % (20.0-45.0) L Monocytes (%) (Auto) 7.0 % (1.0-10.0) Eosinophils (%) (Auto) 2.5 % (0.0-3.0) Basophils (%) (Auto) 0.6 % (0.0-2.0) Sodium Level 142 mEQ/L (135-145) Potassium Level 3.4 mEQ/L (3.4-4.9) Chloride Level 102 mEQ/L (98-107) Carbon Dioxide Level 24 mEQ/L (20-30) Anion Gap 16 (5-15) H Blood Urea Nitrogen 12 mg/dL (7-23) Creatinine 1.1 mg/dL (0.5-0.9) H Estimat Glomerular Filtration Rate > 60 mL/min (>60) Glucose Level 147 mg/dL (74-106) H Calcium Level 8.8 mg/dL (8.6-10.2) Objective HEAD AND NECK: Showed no JVD. LUNGS: Clear. CARDIOVASCULAR: Shows regular S1 and S2 with no gallop or murmur. ABDOMEN: Soft. EXTREMITIES: No pitting edema. MARCIA PINTO April 15, 2017 15:29
[2017-04-15 15:56] VITALS: BP 138/117
--- NOTE | 2017-04-15 18:43 | Nephrology Progress Note ---
Assessment/Plan Problem List: (1) CIERA (acute kidney injury) Assessment: Improved (2) Diabetes (3) HTN (hypertension) (4) Seizure disorder (5) Psychiatric disorder (6) Intractable nausea and vomiting Plan Monitor Renal function Avoid nephrotoxic agents Monitor lytes, correct prn Abx per ID BP and BS control DVT prophylaxis GI following AM labs Subjective Constitutional: Denies: chills, diaphoresis, fever, malaise, no symptoms, other , weakness Genitourinary: Denies: burning, discharge, flank pain, frequency, hematuria, incontinence, no symptoms, other, pain, urgency Neurologic/Psychiatric: Denies: anxiety, depressed, emotional problems, headache, no symptoms, numbness, other, paresthesia, pre-existing deficit, seizure, tingling, tremors, weakness Objective Objective Last 24 Hour Vital Signs Date Time Temp Pulse Resp B/P Pulse Ox O2 Delivery O2 Flow Rate FiO2 04/15/17 16:00 86 04/15/17 15:56 98.1 86 19 138/117 100 Room Air 04/15/17 12:00 98.1 92 18 137/102 98 Room Air 04/15/17 12:00 83 04/15/17 09:28 85 16 Room Air 04/15/17 08:29 97 185/115 04/15/17 08:28 185/115 04/15/17 08:00 87 04/15/17 07:34 98.2 97 18 185/115 100 Room Air 04/15/17 04:00 72 04/15/17 04:00 97.8 106 22 133/79 96 Nasal Cannula 2.0 04/15/17 00:00 97.7 80 21 147/88 99 Room Air 04/15/17 00:00 75 04/14/17 21:17 190/120 04/14/17 21:17 89 190/120 04/14/17 20:01 98.1 89 14 190/120 100 Room Air 04/14/17 20:00 89 04/14/17 18:56 83 16 Room Air Intake and Output 04/14/17 04/15/17 19:00 07:00 Intake Total 1910 ml Balance 1910 ml Intake Oral 300 ml IV Total 1610 ml # Voids 1 1 Laboratory Tests 04/15/17 07:00: White Blood Count 9.1, Red Blood Count 3.94L, Hemoglobin 11.8L, Hematocrit 36.9L , Mean Corpuscular Volume 94, Mean Corpuscular Hemoglobin 29.9, Mean Corpuscular Hemoglobin Concent 31.9L, Red Cell Distribution Width 14.6, Platelet Count 207, Mean Platelet Volume 7.7, Neutrophils (%) (Auto) 70.1, Lymphocytes (%) (Auto) 19.8L, Monocytes (%) (Auto) 7.0, Eosinophils (%) (Auto) 2.5, Basophils (%) (Auto) 0.6, Sodium Level 142, Potassium Level 3.4, Chloride Level 102, Carbon Dioxide Level 24, Anion Gap 16H, Blood Urea Nitrogen 12, Creatinine 1.1H, Estimat Glomerular Filtration Rate > 60, Glucose Level 147H, Calcium Level 8.8 Height (Feet): 5 Height (Inches): 6.00 Weight (Pounds): 130 General Appearance: no apparent distress EENT: normal ENT inspection Neck: non-tender, normal alignment, supple Cardiovascular: normal rate, regular rhythm Respiratory/Chest: lungs clear, normal breath sounds Abdomen: soft, no organomegaly Extremities: non-tender Neurologic: responsive, normal mood/affect Grace Ramesh N.P. April 15, 2017 18:43
[2017-04-15 20:00] VITALS: BP 165/112
[2017-04-15] MEDS: Depakote ER 500mg tab ORAL SCH (20:08)
--- NOTE | 2017-04-15 23:34 | Pulmonology Progress Note ---
Subjective Allergies: Coded Allergies: No Known Allergies (Verified , NONE, 10/30/05) Objective Last 24 Hour Vital Signs Date Time Temp Pulse Resp B/P Pulse Ox O2 Delivery O2 Flow Rate FiO2 04/15/17 20:07 152/110 04/15/17 20:07 92 152/110 04/15/17 20:00 93 04/15/17 20:00 98.2 86 20 165/112 98 Room Air 04/15/17 19:30 90 20 Room Air 21 04/15/17 16:00 86 04/15/17 15:56 98.1 86 19 138/117 100 Room Air 04/15/17 12:00 98.1 92 18 137/102 98 Room Air 04/15/17 12:00 83 04/15/17 09:28 85 16 Room Air 04/15/17 08:29 97 185/115 04/15/17 08:28 185/115 04/15/17 08:00 87 04/15/17 07:34 98.2 97 18 185/115 100 Room Air 04/15/17 04:00 72 04/15/17 04:00 97.8 106 22 133/79 96 Nasal Cannula 2.0 04/15/17 00:00 97.7 80 21 147/88 99 Room Air 04/15/17 00:00 75 Intake and Output 04/14/17 04/15/17 19:00 07:00 Intake Total 1910 ml Balance 1910 ml Intake Oral 300 ml IV Total 1610 ml # Voids 1 1 Laboratory Tests 04/15/17 07:00: White Blood Count 9.1, Red Blood Count 3.94L, Hemoglobin 11.8L, Hematocrit 36.9L , Mean Corpuscular Volume 94, Mean Corpuscular Hemoglobin 29.9, Mean Corpuscular Hemoglobin Concent 31.9L, Red Cell Distribution Width 14.6, Platelet Count 207, Mean Platelet Volume 7.7, Neutrophils (%) (Auto) 70.1, Lymphocytes (%) (Auto) 19.8L, Monocytes (%) (Auto) 7.0, Eosinophils (%) (Auto) 2.5, Basophils (%) (Auto) 0.6, Sodium Level 142, Potassium Level 3.4, Chloride Level 102, Carbon Dioxide Level 24, Anion Gap 16H, Blood Urea Nitrogen 12, Creatinine 1.1H, Estimat Glomerular Filtration Rate > 60, Glucose Level 147H, Calcium Level 8.8 Current Medications Medications (Trade) Dose Ordered Sig/Mateo Route PRN Reason Start Time Stop Time Status Last Admin Dose Admin Acetaminophen (Tylenol) 650 mg Q4H PRN ORAL fever 04/14/17 18:30 05/14/17 18:29 Al Hydroxide/Mg Hydroxide (Mylanta II) 30 ml Q6H PRN ORAL dyspepsia 04/14/17 18:30 05/14/17 18:29 Albuterol/ Ipratropium (DuoNeb 0.5-3(2.5)mg/3ml) 3 ml Q4H PRN HHN Shortness of Breath 04/14/17 18:30 04/19/17 18:29 Amlodipine Besylate (Norvasc) 5 mg Q12HR ORAL 04/14/17 21:00 05/14/17 20:59 04/15/17 20:07 Calcium Carbonate (Tums) 500 mg DAILY ORAL 04/15/17 09:00 05/15/17 08:59 04/15/17 08:29 Chlorhexidine Gluconate (Mara-Hex 2%) 1 applic Q24H TOPIC 04/16/17 00:00 05/16/17 00:00 Clonidine HCl (Catapres) 0.1 mg Q4H PRN ORAL SBP > 160 04/14/17 18:30 05/14/17 18:29 Dextrose (Dextrose 50%) STAT PRN IV Hypoglycemia 04/14/17 18:30 05/14/17 18:29 Divalproex Sodium (Depakote ER) 500 mg BEDTIME ORAL 04/14/17 21:00 05/14/17 20:59 04/15/17 20:08 Heparin Sodium (Porcine) (Heparin 5000 units/ml) 5,000 units EVERY 12 HOURS SUBQ 04/14/17 21:00 05/14/17 20:59 04/15/17 20:20 Insulin Aspart (NovoLOG) BEFORE MEALS AND HS SUBQ 04/14/17 21:00 05/14/17 20:59 04/15/17 16:35 Insulin Aspart (NovoLOG) 4 units NOVOTIAC SUBQ 04/15/17 06:30 05/15/17 06:29 04/15/17 07:14 Insulin Detemir (Levemir) 8 units BID SUBQ 04/15/17 09:00 05/15/17 08:59 04/15/17 18:09 Ketorolac Tromethamine (Toradol 30mg) 30 mg Q6H PRN IV moderate pain 4-6 04/14/17 18:30 04/19/17 18:29 Lisinopril (Zestril) 10 mg Q12HR ORAL 04/14/17 21:00 05/14/17 20:59 04/15/17 20:07 Morphine Sulfate (Morphine Sulfate) 2 mg Q4H PRN IVP severe pain 7-10 04/14/17 18:30 04/21/17 18:29 04/14/17 22:21 Nitroglycerin (Ntg) 0.4 mg Q5M X 3 DOSES PRN SL Prn Chest Pain 04/14/17 18:00 05/14/17 17:59 Ondansetron HCl (Zofran) 4 mg Q6H PRN IVP Nausea & Vomiting 04/14/17 18:30 05/14/17 18:29 04/15/17 06:45 Polyethylene Glycol (Miralax) 17 gm HSPRN PRN ORAL Constipation 04/14/17 18:30 05/14/17 18:29 Ranitidine HCl (Zantac) 150 mg 1900 ORAL 04/14/17 18:00 05/14/17 17:59 04/15/17 18:06 Sodium Chloride (Sodium Chloride 1000ml bag) 1,000 ml @ 150 mls/hr Q6H40M IVLG 04/14/17 18:30 05/14/17 18:29 04/15/17 20:22 Temazepam (Restoril) 15 mg HSPRN PRN ORAL Insomnia 04/14/17 18:30 04/21/17 18:29 04/15/17 22:02 MILA LAINEZ April 15, 2017 23:33
[2017-04-16] VITALS: BP 137/97
[2017-04-16] MEDS ORDERED: Dyna-Hex 2% Top Sol 8oz TOPIC SCH
[2017-04-16] MEDS: NovoLOG Insulin Flexpen SUBQ SCH ×7 (06:18→21:50)
[2017-04-16 08:00] VITALS: BP 142/84
[2017-04-16 08:14] LABS: BASOPHILS % (AUTO) 1.1 % (0.0-2.0); EOSINOPHILS % (AUTO) 2.1 % (0.0-3.0); LYMPHOCYTES % (AUTO) 34.2 % (20.0-45.0); MEAN CORPUSCULAR HEMOGLOBIN 29.7 PG (27.0-31.0); MEAN CORPUSCULAR HGB CONC 31.6 G/DL (32.0-36.0); MEAN CORPUSCULAR VOLUME 94 FL (80-99); MEAN PLATELET VOLUME 7.8 FL (6.5-10.1); MONOCYTES % (AUTO) 7.7 % (1.0-10.0); NEUTROPHILS % (AUTO) 54.9 % (45.0-75.0); PLATELET COUNT 151 K/UL (150-450); RED BLOOD COUNT 4.14 M/UL (4.20-5.40); RED CELL DISTRIBUTION WIDTH 14.4 % (11.6-14.8); WHITE BLOOD COUNT 8.1 K/UL (4.8-10.8)
[2017-04-16 08:33] LABS: ANION GAP 15 (5-15); CALCIUM 8.2 mg/dL (8.6-10.2); CARBON DIOXIDE 24 mEQ/L (20-30); CHLORIDE 100 mEQ/L (98-107); CREATININE 0.9 mg/dL (0.5-0.9); GLOMERULAR FILTRATION RATE > 60 mL/min (>60); HEMOLYSIS 73; POTASSIUM 4.4 mEQ/L (3.4-4.9); SODIUM 139 mEQ/L (135-145)
[2017-04-16] MEDS: Tums 500mg ORAL SCH (08:58)
[2017-04-16] MEDS: Lisinopril 10mg tab ORAL SCH ×2 (08:58→21:46)
[2017-04-16] MEDS: Heparin 5000 units/ml inj SUBQ SCH ×2 (09:01→21:50)
[2017-04-16] MEDS: Levemir Flexpen SUBQ SCH ×2 (09:01→18:00)
--- NOTE | 2017-04-16 10:58 | GI Progress Note ---
Assessment/Plan Problems: (1) esophageal wall thickening (2) Intractable nausea and vomiting ICD Codes: R11.2 - Nausea with vomiting, unspecified SNOMED: 511801730, 594770521 (3) Altered mental status ICD Codes: R41.82 - Altered mental status, unspecified SNOMED: 854428045 (4) DKA (diabetic ketoacidoses) ICD Codes: E13.10 - Other specified diabetes mellitus with ketoacidosis without coma SNOMED: 22129759, 936853024 (5) Gastroparesis due to DM ICD Codes: E11.43 - Type 2 diabetes mellitus with diabetic autonomic (poly) neuropathy; K31.84 - Gastroparesis SNOMED: 85640142, 749378895 Status: progressing Status Narrative Discussed with Dr. Vickers. Assessment/Plan Date of Service: 02/08/17 PROCEDURE: Upper endoscopy with biopsy. INDICATION: Esophagitis lung CT and esophageal wall thickening. SUMMARY FINDINGS: 1. Severe distal esophagitis with some white discharge only suspicious for candidal status post biopsy. >> negative for fungal organisms. Revealed sloughing inflamed necrotic tissue with neutrophils, see full pathology report. 2. Gastritis, status post biopsy. >> unremarkable HgA1C >> 9.0 elevated triglycerides symptomatic treatment at this time reglan for GI motility zofran prn monitor H&H, transfuse prn fu iron panel ST eval noted >> FLD cont ppi abx fu labs Subjective Subjective limited Objective Last 24 Hour Vital Signs Date Time Temp Pulse Resp B/P Pulse Ox O2 Delivery O2 Flow Rate FiO2 04/16/17 08:58 142/84 04/16/17 08:58 80 142/84 04/16/17 08:00 91 04/16/17 08:00 97.0 80 18 142/84 95 Room Air 79 04/16/17 07:52 87 18 Room Air 21 04/16/17 04:00 73 04/16/17 00:00 73 04/16/17 00:00 98.0 79 20 137/97 98 Room Air 04/15/17 20:07 152/110 04/15/17 20:07 92 152/110 04/15/17 20:00 93 04/15/17 20:00 98.2 86 20 165/112 98 Room Air 04/15/17 19:30 90 20 Room Air 21 04/15/17 16:00 86 04/15/17 15:56 98.1 86 19 138/117 100 Room Air 04/15/17 12:00 98.1 92 18 137/102 98 Room Air 04/15/17 12:00 83 Intake and Output 04/15/17 04/16/17 19:00 07:00 Intake Total 2455 ml 1050 ml Balance 2455 ml 1050 ml Intake Oral 600 ml IV Total 1855 ml 1050 ml # Voids 1 Laboratory Tests Test 04/16/17 07:55 White Blood Count 8.1 K/UL (4.8-10.8) Red Blood Count 4.14 M/UL (4.20-5.40) L Hemoglobin 12.3 G/DL (12.0-16.0) Hematocrit 39.0 % (37.0-47.0) Mean Corpuscular Volume 94 FL (80-99) Mean Corpuscular Hemoglobin 29.7 PG (27.0-31.0) Mean Corpuscular Hemoglobin Concent 31.6 G/DL (32.0-36.0) L Red Cell Distribution Width 14.4 % (11.6-14.8) Platelet Count 151 K/UL (150-450) Mean Platelet Volume 7.8 FL (6.5-10.1) Neutrophils (%) (Auto) 54.9 % (45.0-75.0) Lymphocytes (%) (Auto) 34.2 % (20.0-45.0) Monocytes (%) (Auto) 7.7 % (1.0-10.0) Eosinophils (%) (Auto) 2.1 % (0.0-3.0) Basophils (%) (Auto) 1.1 % (0.0-2.0) Sodium Level 139 mEQ/L (135-145) Potassium Level 4.4 mEQ/L (3.4-4.9) Chloride Level 100 mEQ/L (98-107) Carbon Dioxide Level 24 mEQ/L (20-30) Anion Gap 15 (5-15) Blood Urea Nitrogen 9 mg/dL (7-23) Creatinine 0.9 mg/dL (0.5-0.9) Estimat Glomerular Filtration Rate > 60 mL/min (>60) Glucose Level 143 mg/dL (74-106) H Calcium Level 8.2 mg/dL (8.6-10.2) L Height (Feet): 5 Height (Inches): 6.00 Weight (Pounds): 130 General Appearance: no apparent distress, alert Cardiovascular: normal rate Respiratory/Chest: normal breath sounds, no respiratory distress Abdominal Exam: normal bowel sounds, non tender, soft Muriel Serra N.P. April 16, 2017 10:58
[2017-04-16 11:57] VITALS: BP 154/101
[2017-04-16] MEDS: Morphine Sulfate 2mg/ml Inj IVP PRN ×3 (12:02→21:48)
[2017-04-16] MEDS ORDERED: Nitroglycerin Subl 0.4mg tab (Bottle Of 25) SL PRN (13:45)
--- NOTE | 2017-04-16 13:46 | General Progress Note ---
Assessment/Plan Problem List: (1) Psychiatric disorder ICD Codes: F99 - Mental disorder, not otherwise specified SNOMED: 99468848, 286624479 (2) Diabetes ICD Codes: E11.9 - Type 2 diabetes mellitus without complications SNOMED: 24979968 (3) Altered mental status ICD Codes: R41.82 - Altered mental status, unspecified SNOMED: 968224593 (4) HTN (hypertension) ICD Codes: I10 - Essential (primary) hypertension SNOMED: 22658458 (5) Gastroparesis due to DM ICD Codes: E11.43 - Type 2 diabetes mellitus with diabetic autonomic (poly) neuropathy; K31.84 - Gastroparesis SNOMED: 63402317, 507635452 Status: stable, progressing Assessment/Plan ot pt diet bp bs control cbc bmp am dc w hh Subjective Allergies: Coded Allergies: No Known Allergies (Verified , NONE, 10/30/05) All Systems: reviewed and negative except above Subjective sleepy calm in room Objective Last 24 Hour Vital Signs Date Time Temp Pulse Resp B/P Pulse Ox O2 Delivery O2 Flow Rate FiO2 04/16/17 12:00 94 04/16/17 11:57 97.2 86 17 154/101 98 Room Air 83 04/16/17 08:58 142/84 04/16/17 08:58 80 142/84 04/16/17 08:00 91 04/16/17 08:00 97.0 80 18 142/84 95 Room Air 79 04/16/17 07:52 87 18 Room Air 21 04/16/17 04:00 73 04/16/17 00:00 73 04/16/17 00:00 98.0 79 20 137/97 98 Room Air 04/15/17 20:07 152/110 04/15/17 20:07 92 152/110 04/15/17 20:00 93 04/15/17 20:00 98.2 86 20 165/112 98 Room Air 04/15/17 19:30 90 20 Room Air 21 04/15/17 16:00 86 04/15/17 15:56 98.1 86 19 138/117 100 Room Air Intake and Output 04/15/17 04/16/17 19:00 07:00 Intake Total 2455 ml 1050 ml Balance 2455 ml 1050 ml Intake Oral 600 ml IV Total 1855 ml 1050 ml # Voids 1 Laboratory Tests 5/24/17 07:55: White Blood Count 8.1, Red Blood Count 4.14L, Hemoglobin 12.3, Hematocrit 39.0, Mean Corpuscular Volume 94, Mean Corpuscular Hemoglobin 29.7, Mean Corpuscular Hemoglobin Concent 31.6L, Red Cell Distribution Width 14.4, Platelet Count 151, Mean Platelet Volume 7.8, Neutrophils (%) (Auto) 54.9, Lymphocytes (%) (Auto) 34.2, Monocytes (%) (Auto) 7.7, Eosinophils (%) (Auto) 2.1, Basophils (%) (Auto ) 1.1, Sodium Level 139, Potassium Level 4.4, Chloride Level 100, Carbon Dioxide Level 24, Anion Gap 15, Blood Urea Nitrogen 9, Creatinine 0.9, Estimat Glomerular Filtration Rate > 60, Glucose Level 143H, Calcium Level 8.2L Height (Feet): 5 Height (Inches): 6.00 Weight (Pounds): 130 General Appearance: confused EENT: normal ENT inspection Neck: normal alignment Cardiovascular: normal peripheral pulses, normal rate, regular rhythm Respiratory/Chest: chest wall non-tender, lungs clear, normal breath sounds Abdomen: normal bowel sounds, non tender, soft Extremities: normal inspection Edema: no edema noted Arm (L), no edema noted Arm (R), no edema noted Leg (L), no edema noted Leg (R), no edema noted Pedal (L), no edema noted Pedal (R), no edema noted Generalized Neurologic: responsive, motor weakness Skin: normal pigmentation, warm/dry ENOCH GONZALEZ April 16, 2017 13:46
[2017-04-16] MEDS ORDERED: DuoNeb 0.5-3(2.5)mg/3ml neb HHN PRN (14:30)
[2017-04-16] MEDS ORDERED: Miralax 17gm pkt ORAL PRN (14:57)
[2017-04-16] MEDS ORDERED: Ketorolac 30mg Inj IV PRN (14:57)
--- NOTE | 2017-04-16 14:58 | Cardiac Electrophysiology PN ---
Assessment/Plan Assessment/Plan 1. Accelerated hypertension. On Norvasc 5 mg b.i.d and lisinopril 10 mg b.i.d. and prn Clonidine. Refused echo 2. DKA on insulin and NS 3. White count of 20,000, could be secondary to patient's diabetic ketoacidosis. 4. Diabetic ketoacidosis. DAVON RN Subjective Subjective Refused Echo. Still asking for painkillers Has abdominal pain. Now Off tele. Objective Last 24 Hour Vital Signs Date Time Temp Pulse Resp B/P Pulse Ox O2 Delivery O2 Flow Rate FiO2 04/16/17 12:00 94 04/16/17 11:57 97.2 86 17 154/101 98 Room Air 83 04/16/17 08:58 142/84 04/16/17 08:58 80 142/84 04/16/17 08:00 91 04/16/17 08:00 97.0 80 18 142/84 95 Room Air 79 04/16/17 07:52 87 18 Room Air 21 04/16/17 04:00 73 04/16/17 00:00 73 04/16/17 00:00 98.0 79 20 137/97 98 Room Air 04/15/17 20:07 152/110 04/15/17 20:07 92 152/110 04/15/17 20:00 93 04/15/17 20:00 98.2 86 20 165/112 98 Room Air 04/15/17 19:30 90 20 Room Air 21 04/15/17 16:00 86 04/15/17 15:56 98.1 86 19 138/117 100 Room Air Intake and Output 04/15/17 04/16/17 19:00 07:00 Intake Total 2455 ml 1050 ml Balance 2455 ml 1050 ml Intake Oral 600 ml IV Total 1855 ml 1050 ml # Voids 1 Laboratory Tests Test 04/16/17 07:55 White Blood Count 8.1 K/UL (4.8-10.8) Red Blood Count 4.14 M/UL (4.20-5.40) L Hemoglobin 12.3 G/DL (12.0-16.0) Hematocrit 39.0 % (37.0-47.0) Mean Corpuscular Volume 94 FL (80-99) Mean Corpuscular Hemoglobin 29.7 PG (27.0-31.0) Mean Corpuscular Hemoglobin Concent 31.6 G/DL (32.0-36.0) L Red Cell Distribution Width 14.4 % (11.6-14.8) Platelet Count 151 K/UL (150-450) Mean Platelet Volume 7.8 FL (6.5-10.1) Neutrophils (%) (Auto) 54.9 % (45.0-75.0) Lymphocytes (%) (Auto) 34.2 % (20.0-45.0) Monocytes (%) (Auto) 7.7 % (1.0-10.0) Eosinophils (%) (Auto) 2.1 % (0.0-3.0) Basophils (%) (Auto) 1.1 % (0.0-2.0) Sodium Level 139 mEQ/L (135-145) Potassium Level 4.4 mEQ/L (3.4-4.9) Chloride Level 100 mEQ/L (98-107) Carbon Dioxide Level 24 mEQ/L (20-30) Anion Gap 15 (5-15) Blood Urea Nitrogen 9 mg/dL (7-23) Creatinine 0.9 mg/dL (0.5-0.9) Estimat Glomerular Filtration Rate > 60 mL/min (>60) Glucose Level 143 mg/dL (74-106) H Calcium Level 8.2 mg/dL (8.6-10.2) L Microbiology Date/Time Source Procedure Growth Status 04/14/17 07:40 Blood Blood Culture - Preliminary NO GROWTH AFTER 24 HOURS Resulted Objective HEAD AND NECK: no JVD. LUNGS: Clear. CARDIOVASCULAR: Regular S1 and S2 with no gallop or murmur. ABDOMEN: Soft. EXTREMITIES: No pitting edema. MARCIA PINTO April 16, 2017 14:57
[2017-04-16] MEDS ORDERED: Mylanta II UD 30ml ORAL PRN (15:30)
--- NOTE | 2017-04-16 16:19 | Infectious Diseases Prog Note ---
Assessment/Plan Problems: (1) Abnormal white blood cell (WBC) count Assessment & Plan: suspect due to dehydration , with negative work up for infection , monitor off antibiotics (2) UTI (urinary tract infection) Assessment & Plan: with culture grew strep spp, most likely contamination, no need for antibiotics (3) Hyperglycemia Assessment & Plan: due to non complaint with meds, recommend counseling , and tight glycemic control to keep blood glucose between 80-120 (4) DKA (diabetic ketoacidoses) Assessment & Plan: continue long acting insuline with sliding scale to keep tight glycemic control Subjective ROS Limited/Unobtainable: Yes Allergies: Coded Allergies: No Known Allergies (Verified , NONE, 10/30/05) Subjective she was agitated, dosen't follow commands Objective Vital Signs Last 24 Hour Vital Signs Date Time Temp Pulse Resp B/P Pulse Ox O2 Delivery O2 Flow Rate FiO2 04/16/17 12:00 94 04/16/17 11:57 97.2 86 17 154/101 98 Room Air 83 04/16/17 08:58 142/84 04/16/17 08:58 80 142/84 04/16/17 08:00 91 04/16/17 08:00 97.0 80 18 142/84 95 Room Air 79 04/16/17 07:52 87 18 Room Air 21 04/16/17 04:00 73 04/16/17 00:00 73 04/16/17 00:00 98.0 79 20 137/97 98 Room Air 04/15/17 20:07 152/110 04/15/17 20:07 92 152/110 04/15/17 20:00 93 04/15/17 20:00 98.2 86 20 165/112 98 Room Air 04/15/17 19:30 90 20 Room Air 21 Height (Feet): 5 Height (Inches): 6.00 Weight (Pounds): 130 General Appearance: WD/WN, no acute distress HEENT: normocephalic, atraumatic, anicteric, mucous membranes moist Respiratory/Chest: chest wall non-tender, lungs clear, normal breath sounds, no respiratory distress, no accessory muscle use Cardiovascular: normal peripheral pulses, normal rate, regular rhythm, no gallop/murmur Abdomen: normal bowel sounds, soft, non tender, no organomegaly, non distended , no mass Extremities: no cyanosis, no clubbing Skin: no rash, no lesions Microbiology Date/Time Source Procedure Growth Status 04/14/17 07:40 Blood Blood Culture - Preliminary NO GROWTH AFTER 24 HOURS Resulted Laboratory Tests Test 04/16/17 07:55 White Blood Count 8.1 K/UL (4.8-10.8) Red Blood Count 4.14 M/UL (4.20-5.40) L Hemoglobin 12.3 G/DL (12.0-16.0) Hematocrit 39.0 % (37.0-47.0) Mean Corpuscular Volume 94 FL (80-99) Mean Corpuscular Hemoglobin 29.7 PG (27.0-31.0) Mean Corpuscular Hemoglobin Concent 31.6 G/DL (32.0-36.0) L Red Cell Distribution Width 14.4 % (11.6-14.8) Platelet Count 151 K/UL (150-450) Mean Platelet Volume 7.8 FL (6.5-10.1) Neutrophils (%) (Auto) 54.9 % (45.0-75.0) Lymphocytes (%) (Auto) 34.2 % (20.0-45.0) Monocytes (%) (Auto) 7.7 % (1.0-10.0) Eosinophils (%) (Auto) 2.1 % (0.0-3.0) Basophils (%) (Auto) 1.1 % (0.0-2.0) Sodium Level 139 mEQ/L (135-145) Potassium Level 4.4 mEQ/L (3.4-4.9) Chloride Level 100 mEQ/L (98-107) Carbon Dioxide Level 24 mEQ/L (20-30) Anion Gap 15 (5-15) Blood Urea Nitrogen 9 mg/dL (7-23) Creatinine 0.9 mg/dL (0.5-0.9) Estimat Glomerular Filtration Rate > 60 mL/min (>60) Glucose Level 143 mg/dL (74-106) H Calcium Level 8.2 mg/dL (8.6-10.2) L Current Medications Medications (Trade) Dose Ordered Sig/Mateo Route PRN Reason Start Time Stop Time Status Last Admin Dose Admin Acetaminophen (Tylenol) 650 mg Q4H PRN ORAL fever 04/16/17 14:30 05/16/17 14:29 Al Hydroxide/Mg Hydroxide (Mylanta II) 30 ml Q6H PRN ORAL dyspepsia 04/16/17 15:30 05/16/17 15:29 Albuterol/ Ipratropium (DuoNeb 0.5-3(2.5)mg/3ml) 3 ml Q4H PRN HHN Shortness of Breath 04/16/17 14:30 04/21/17 14:29 Amlodipine Besylate (Norvasc) 5 mg Q12HR ORAL 04/16/17 21:00 05/16/17 20:59 Calcium Carbonate (Tums) 500 mg DAILY ORAL 04/17/17 09:00 05/17/17 08:59 Chlorhexidine Gluconate (Mara-Hex 2%) 1 applic Q24H TOPIC 04/17/17 00:00 05/17/17 00:00 Clonidine HCl (Catapres) 0.1 mg Q4H PRN ORAL SBP > 160 04/16/17 14:30 05/16/17 14:29 Dextrose (Dextrose 50%) STAT PRN IV Hypoglycemia 04/16/17 14:56 05/16/17 14:55 Divalproex Sodium (Depakote ER) 500 mg BEDTIME ORAL 04/16/17 21:00 05/16/17 20:59 Heparin Sodium (Porcine) (Heparin 5000 units/ml) 5,000 units EVERY 12 HOURS SUBQ 04/16/17 21:00 05/16/17 20:59 Insulin Aspart (NovoLOG) BEFORE MEALS AND HS SUBQ 04/16/17 16:30 05/16/17 16:29 Insulin Aspart (NovoLOG) 4 units NOVOTIAC SUBQ 04/16/17 16:50 05/16/17 16:49 Insulin Detemir (Levemir) 8 units BID SUBQ 04/16/17 18:00 05/16/17 17:59 Ketorolac Tromethamine (Toradol 30mg) 30 mg Q6H PRN IV moderate pain 4-6 04/16/17 14:57 04/21/17 14:56 Lisinopril (Zestril) 10 mg Q12HR ORAL 04/16/17 21:00 05/16/17 20:59 Morphine Sulfate (Morphine Sulfate) 2 mg Q4H PRN IVP severe pain 7-10 04/16/17 14:30 04/23/17 14:29 04/16/17 15:30 Nitroglycerin (Ntg) 0.4 mg Q5M X 3 DOSES PRN SL Prn Chest Pain 04/16/17 13:45 05/16/17 13:44 Ondansetron HCl (Zofran) 4 mg Q6H PRN IVP Nausea & Vomiting 04/16/17 14:57 05/16/17 14:56 04/16/17 15:30 Pantoprazole (Protonix) 40 mg DAILY ORAL 04/17/17 09:00 05/17/17 08:59 Polyethylene Glycol (Miralax) 17 gm HSPRN PRN ORAL Constipation 04/16/17 14:57 05/16/17 14:56 Ranitidine HCl (Zantac) 150 mg 1900 ORAL 04/16/17 19:00 05/16/17 18:59 Temazepam (Restoril) 15 mg HSPRN PRN ORAL Insomnia 04/16/17 14:58 04/23/17 14:57 Choco Lozada M.D. April 16, 2017 16:19
[2017-04-16 20:00] VITALS: BP 115/76
[2017-04-16] MEDS ORDERED: Depakote ER 500mg tab ORAL SCH (21:00)
--- NOTE | 2017-04-16 23:52 | Pulmonology Progress Note ---
Subjective Allergies: Coded Allergies: No Known Allergies (Verified , NONE, 10/30/05) Objective Last 24 Hour Vital Signs Date Time Temp Pulse Resp B/P Pulse Ox O2 Delivery O2 Flow Rate FiO2 04/16/17 22:18 97.6 04/16/17 21:47 93 115/76 04/16/17 21:46 115/76 04/16/17 20:00 97.6 86 19 115/76 100 Room Air 93 04/16/17 12:00 94 04/16/17 11:57 97.2 86 17 154/101 98 Room Air 83 04/16/17 08:58 142/84 04/16/17 08:58 80 142/84 04/16/17 08:00 91 04/16/17 08:00 97.0 80 18 142/84 95 Room Air 79 04/16/17 07:52 87 18 Room Air 21 04/16/17 04:00 73 04/16/17 00:00 73 04/16/17 00:00 98.0 79 20 137/97 98 Room Air Intake and Output 04/15/17 04/16/17 19:00 07:00 Intake Total 2455 ml 1050 ml Balance 2455 ml 1050 ml Intake Oral 600 ml IV Total 1855 ml 1050 ml # Voids 1 Microbiology Date/Time Source Procedure Growth Status 04/14/17 07:40 Blood Blood Culture - Preliminary NO GROWTH AFTER 24 HOURS Resulted Laboratory Tests 04/16/17 07:55: White Blood Count 8.1, Red Blood Count 4.14L, Hemoglobin 12.3, Hematocrit 39.0, Mean Corpuscular Volume 94, Mean Corpuscular Hemoglobin 29.7, Mean Corpuscular Hemoglobin Concent 31.6L, Red Cell Distribution Width 14.4, Platelet Count 151, Mean Platelet Volume 7.8, Neutrophils (%) (Auto) 54.9, Lymphocytes (%) (Auto) 34.2, Monocytes (%) (Auto) 7.7, Eosinophils (%) (Auto) 2.1, Basophils (%) (Auto ) 1.1, Sodium Level 139, Potassium Level 4.4, Chloride Level 100, Carbon Dioxide Level 24, Anion Gap 15, Blood Urea Nitrogen 9, Creatinine 0.9, Estimat Glomerular Filtration Rate > 60, Glucose Level 143H, Calcium Level 8.2L Current Medications Medications (Trade) Dose Ordered Sig/Mateo Route PRN Reason Start Time Stop Time Status Last Admin Dose Admin Acetaminophen (Tylenol) 650 mg Q4H PRN ORAL fever 04/16/17 14:30 05/16/17 14:29 Al Hydroxide/Mg Hydroxide (Mylanta II) 30 ml Q6H PRN ORAL dyspepsia 04/16/17 15:30 05/16/17 15:29 04/16/17 21:48 Albuterol/ Ipratropium (DuoNeb 0.5-3(2.5)mg/3ml) 3 ml Q4H PRN HHN Shortness of Breath 04/16/17 14:30 04/21/17 14:29 Amlodipine Besylate (Norvasc) 5 mg Q12HR ORAL 04/16/17 21:00 05/16/17 20:59 04/16/17 21:47 Calcium Carbonate (Tums) 500 mg DAILY ORAL 04/17/17 09:00 05/17/17 08:59 Chlorhexidine Gluconate (Mara-Hex 2%) 1 applic Q24H TOPIC 04/17/17 00:00 05/17/17 00:00 Clonidine HCl (Catapres) 0.1 mg Q4H PRN ORAL SBP > 160 04/16/17 14:30 05/16/17 14:29 Dextrose (Dextrose 50%) STAT PRN IV Hypoglycemia 04/16/17 14:56 05/16/17 14:55 Divalproex Sodium (Depakote ER) 500 mg BEDTIME ORAL 04/16/17 21:00 05/16/17 20:59 04/16/17 21:47 Heparin Sodium (Porcine) (Heparin 5000 units/ml) 5,000 units EVERY 12 HOURS SUBQ 04/16/17 21:00 05/16/17 20:59 04/16/17 21:50 Insulin Aspart (NovoLOG) BEFORE MEALS AND HS SUBQ 04/16/17 16:30 05/16/17 16:29 04/16/17 21:50 Insulin Aspart (NovoLOG) 4 units NOVOTIAC SUBQ 04/16/17 16:50 05/16/17 16:49 Insulin Detemir (Levemir) 8 units BID SUBQ 04/16/17 18:00 05/16/17 17:59 Ketorolac Tromethamine (Toradol 30mg) 30 mg Q6H PRN IV moderate pain 4-6 04/16/17 14:57 04/21/17 14:56 Lisinopril (Zestril) 10 mg Q12HR ORAL 04/16/17 21:00 05/16/17 20:59 04/16/17 21:46 Morphine Sulfate (Morphine Sulfate) 2 mg Q4H PRN IVP severe pain 7-10 04/16/17 14:30 04/23/17 14:29 04/16/17 21:48 Nitroglycerin (Ntg) 0.4 mg Q5M X 3 DOSES PRN SL Prn Chest Pain 04/16/17 13:45 05/16/17 13:44 Ondansetron HCl (Zofran) 4 mg Q6H PRN IVP Nausea & Vomiting 04/16/17 14:57 05/16/17 14:56 04/16/17 15:30 Pantoprazole (Protonix) 40 mg DAILY ORAL 04/17/17 09:00 05/17/17 08:59 Polyethylene Glycol (Miralax) 17 gm HSPRN PRN ORAL Constipation 04/16/17 14:57 05/16/17 14:56 Ranitidine HCl (Zantac) 150 mg 1900 ORAL 04/16/17 19:00 05/16/17 18:59 04/16/17 18:41 Temazepam (Restoril) 15 mg HSPRN PRN ORAL Insomnia 04/16/17 14:58 04/23/17 14:57 04/16/17 21:47 MILA LAINEZ April 16, 2017 23:52
[2017-04-17] VITALS: BP 112/87
[2017-04-17] MEDS: Dyna-Hex 2% Top Sol 8oz TOPIC SCH (00:30)
[2017-04-17] MEDS: NovoLOG Insulin Flexpen SUBQ SCH ×7 (05:44→21:42)
[2017-04-17 07:08] LABS: BASOPHILS % (AUTO) 1.2 % (0.0-2.0); EOSINOPHILS % (AUTO) 2.3 % (0.0-3.0); LYMPHOCYTES % (AUTO) 39.9 % (20.0-45.0); MEAN CORPUSCULAR HEMOGLOBIN 29.5 PG (27.0-31.0); MEAN CORPUSCULAR HGB CONC 31.6 G/DL (32.0-36.0); MEAN CORPUSCULAR VOLUME 93 FL (80-99); MONOCYTES % (AUTO) 9.1 % (1.0-10.0); NEUTROPHILS % (AUTO) 47.5 % (45.0-75.0); PLATELET COUNT 112 K/UL (150-450); RED BLOOD COUNT 3.36 M/UL (4.20-5.40); RED CELL DISTRIBUTION WIDTH 14.2 % (11.6-14.8); WHITE BLOOD COUNT 7.1 K/UL (4.8-10.8)
[2017-04-17 07:37] LABS: ANION GAP 12 (5-15); CALCIUM 8.3 mg/dL (8.6-10.2); CARBON DIOXIDE 30 mEQ/L (20-30); CHLORIDE 97 mEQ/L (98-107); CREATININE 0.9 mg/dL (0.5-0.9); GLOMERULAR FILTRATION RATE > 60 mL/min (>60); POTASSIUM 3.4 mEQ/L (3.4-4.9); SODIUM 139 mEQ/L (135-145)
[2017-04-17 07:38] LABS: HEMOLYSIS 11; IRON 62 ug/dL (37-145); TOTAL IRON BINDING CAPACITY 208 ug/dL (250-400)
[2017-04-17 08:00] VITALS: BP 141/99
[2017-04-17] MEDS: Tums 500mg ORAL SCH (08:48)
[2017-04-17] MEDS: Lisinopril 10mg tab ORAL SCH ×2 (08:49→21:38)
[2017-04-17] MEDS: Heparin 5000 units/ml inj SUBQ SCH ×2 (08:49→21:00)
[2017-04-17] MEDS: Levemir Flexpen SUBQ SCH ×2 (08:55→18:00)
--- NOTE | 2017-04-17 11:35 | GI Progress Note ---
Assessment/Plan Problems: (1) esophageal wall thickening (2) Intractable nausea and vomiting ICD Codes: R11.2 - Nausea with vomiting, unspecified SNOMED: 485760990, 301478962 (3) Altered mental status ICD Codes: R41.82 - Altered mental status, unspecified SNOMED: 100647162 (4) DKA (diabetic ketoacidoses) ICD Codes: E13.10 - Other specified diabetes mellitus with ketoacidosis without coma SNOMED: 88542117, 320249804 (5) Gastroparesis due to DM ICD Codes: E11.43 - Type 2 diabetes mellitus with diabetic autonomic (poly) neuropathy; K31.84 - Gastroparesis SNOMED: 53818671, 307611332 Status: stable Status Narrative Discussed with Dr. Vickers. Assessment/Plan Date of Service: 02/08/17 PROCEDURE: Upper endoscopy with biopsy. INDICATION: Esophagitis lung CT and esophageal wall thickening. S/P EGD SUMMARY FINDINGS: 1. Severe distal esophagitis with some white discharge only suspicious for candidal status post biopsy. >> negative for fungal organisms. Revealed sloughing inflamed necrotic tissue with neutrophils, see full pathology report. 2. Gastritis, status post biopsy. >> unremarkable HgA1C >> 9.0 elevated triglycerides ok for DC per GI standpoint symptomatic treatment at this time reglan for GI motility DM mgmt zofran prn monitor H&H, transfuse prn >> OB stool to r/o GI bleed due to hgb drop today fu iron panel ST eval noted >> FLD cont ppi abx fu labs Subjective Subjective limited Objective Last 24 Hour Vital Signs Date Time Temp Pulse Resp B/P Pulse Ox O2 Delivery O2 Flow Rate FiO2 04/17/17 08:49 141/99 04/17/17 08:49 82 141/99 04/17/17 08:00 97.6 82 18 141/99 100 Room Air 04/17/17 06:43 82 18 Room Air 04/17/17 00:00 98.8 89 18 112/87 100 Room Air 04/16/17 22:18 97.6 04/16/17 21:47 93 115/76 04/16/17 21:46 115/76 04/16/17 20:00 97.6 86 19 115/76 100 Room Air 93 04/16/17 12:00 94 04/16/17 11:57 97.2 86 17 154/101 98 Room Air 83 Intake and Output 04/16/17 04/17/17 19:00 07:00 Intake Total 800 ml Balance 800 ml Intake Oral 350 ml IV Total 450 ml Laboratory Tests Test 04/17/17 05:15 White Blood Count 7.1 K/UL (4.8-10.8) Red Blood Count 3.36 M/UL (4.20-5.40) L Hemoglobin 9.9 G/DL (12.0-16.0) L Hematocrit 31.4 % (37.0-47.0) L Mean Corpuscular Volume 93 FL (80-99) Mean Corpuscular Hemoglobin 29.5 PG (27.0-31.0) Mean Corpuscular Hemoglobin Concent 31.6 G/DL (32.0-36.0) L Red Cell Distribution Width 14.2 % (11.6-14.8) Platelet Count 112 K/UL (150-450) L Mean Platelet Volume 8.0 FL (6.5-10.1) Neutrophils (%) (Auto) 47.5 % (45.0-75.0) Lymphocytes (%) (Auto) 39.9 % (20.0-45.0) Monocytes (%) (Auto) 9.1 % (1.0-10.0) Eosinophils (%) (Auto) 2.3 % (0.0-3.0) Basophils (%) (Auto) 1.2 % (0.0-2.0) Sodium Level 139 mEQ/L (135-145) Potassium Level 3.4 mEQ/L (3.4-4.9) Chloride Level 97 mEQ/L (98-107) L Carbon Dioxide Level 30 mEQ/L (20-30) Anion Gap 12 (5-15) Blood Urea Nitrogen 9 mg/dL (7-23) Creatinine 0.9 mg/dL (0.5-0.9) Estimat Glomerular Filtration Rate > 60 mL/min (>60) Glucose Level 342 mg/dL (74-106) #H Calcium Level 8.3 mg/dL (8.6-10.2) L Iron Level 62 ug/dL (37-145) Total Iron Binding Capacity 208 ug/dL (250-400) L Percent Iron Saturation 30 % (15-50) Unsaturated Iron Binding 146 ug/dL (112-346) Height (Feet): 5 Height (Inches): 6.00 Weight (Pounds): 130 General Appearance: no apparent distress, alert Cardiovascular: normal rate Respiratory/Chest: normal breath sounds, no respiratory distress Abdominal Exam: normal bowel sounds, non tender, soft Muriel Serra N.P. April 17, 2017 11:35
--- NOTE | 2017-04-17 13:06 | General Progress Note ---
Assessment/Plan Problem List: (1) Psychiatric disorder ICD Codes: F99 - Mental disorder, not otherwise specified SNOMED: 65711573, 548561747 (2) Diabetes ICD Codes: E11.9 - Type 2 diabetes mellitus without complications SNOMED: 85752683 (3) Altered mental status ICD Codes: R41.82 - Altered mental status, unspecified SNOMED: 225936483 (4) HTN (hypertension) ICD Codes: I10 - Essential (primary) hypertension SNOMED: 78436456 (5) Gastroparesis due to DM ICD Codes: E11.43 - Type 2 diabetes mellitus with diabetic autonomic (poly) neuropathy; K31.84 - Gastroparesis SNOMED: 76293008, 737508580 Status: stable, progressing, tolerating diet Assessment/Plan ot pt diet bp bs control cbc bmp am dc w hh Subjective Constitutional: Reports: weakness Allergies: Coded Allergies: No Known Allergies (Verified , NONE, 10/30/05) All Systems: reviewed and negative except above Subjective sleepy calm in room Objective Last 24 Hour Vital Signs Date Time Temp Pulse Resp B/P Pulse Ox O2 Delivery O2 Flow Rate FiO2 04/17/17 08:49 141/99 04/17/17 08:49 82 141/99 04/17/17 08:00 97.6 82 18 141/99 100 Room Air 04/17/17 06:43 82 18 Room Air 04/17/17 00:00 98.8 89 18 112/87 100 Room Air 04/16/17 22:18 97.6 04/16/17 21:47 93 115/76 04/16/17 21:46 115/76 04/16/17 20:00 97.6 86 19 115/76 100 Room Air 93 Intake and Output 04/16/17 04/17/17 19:00 07:00 Intake Total 800 ml Balance 800 ml Intake Oral 350 ml IV Total 450 ml Laboratory Tests 04/17/17 05:15: White Blood Count 7.1, Red Blood Count 3.36L, Hemoglobin 9.9L, Hematocrit 31.4L , Mean Corpuscular Volume 93, Mean Corpuscular Hemoglobin 29.5, Mean Corpuscular Hemoglobin Concent 31.6L, Red Cell Distribution Width 14.2, Platelet Count 112L, Mean Platelet Volume 8.0, Neutrophils (%) (Auto) 47.5, Lymphocytes (%) (Auto) 39.9, Monocytes (%) (Auto) 9.1, Eosinophils (%) (Auto) 2.3, Basophils (%) (Auto) 1.2, Sodium Level 139, Potassium Level 3.4, Chloride Level 97L, Carbon Dioxide Level 30, Anion Gap 12, Blood Urea Nitrogen 9, Creatinine 0.9, Estimat Glomerular Filtration Rate > 60, Glucose Level 342#H, Calcium Level 8.3L, Iron Level 62, Total Iron Binding Capacity 208L, Percent Iron Saturation 30, Unsaturated Iron Binding 146 Height (Feet): 5 Height (Inches): 6.00 Weight (Pounds): 130 General Appearance: confused EENT: normal ENT inspection Neck: normal alignment Cardiovascular: normal peripheral pulses, normal rate, regular rhythm Respiratory/Chest: chest wall non-tender, lungs clear, normal breath sounds Abdomen: normal bowel sounds, non tender, soft Extremities: normal inspection Edema: no edema noted Arm (L), no edema noted Arm (R), no edema noted Leg (L), no edema noted Leg (R), no edema noted Pedal (L), no edema noted Pedal (R), no edema noted Generalized Neurologic: responsive, motor weakness Skin: normal pigmentation, warm/dry ENOCH GONZALEZ April 17, 2017 13:06
--- NOTE | 2017-04-17 15:21 | Cardiac Electrophysiology PN ---
Assessment/Plan Assessment/Plan 1. Accelerated hypertension. Continue Norvasc 5 mg b.i.d, lisinopril 10 mg b.i.d. and prn Clonidine. Refused echo 2. DKA on insulin and NS 3. White count of 20,000, could be secondary to patient's diabetic ketoacidosis. 4. Diabetic ketoacidosis. On Insulin 5. Esophageal wall thickening with Intractable nausea and vomiting DW RN Subjective Subjective Still asking for painkillers for abdominal pain. Off tele.RN at bedside. Objective Last 24 Hour Vital Signs Date Time Temp Pulse Resp B/P Pulse Ox O2 Delivery O2 Flow Rate FiO2 04/17/17 08:49 141/99 04/17/17 08:49 82 141/99 04/17/17 08:00 97.6 82 18 141/99 100 Room Air 04/17/17 06:43 82 18 Room Air 04/17/17 00:00 98.8 89 18 112/87 100 Room Air 04/16/17 22:18 97.6 04/16/17 21:47 93 115/76 04/16/17 21:46 115/76 04/16/17 20:00 97.6 86 19 115/76 100 Room Air 93 Intake and Output 04/16/17 04/17/17 19:00 07:00 Intake Total 800 ml Balance 800 ml Intake Oral 350 ml IV Total 450 ml Laboratory Tests Test 04/17/17 05:15 White Blood Count 7.1 K/UL (4.8-10.8) Red Blood Count 3.36 M/UL (4.20-5.40) L Hemoglobin 9.9 G/DL (12.0-16.0) L Hematocrit 31.4 % (37.0-47.0) L Mean Corpuscular Volume 93 FL (80-99) Mean Corpuscular Hemoglobin 29.5 PG (27.0-31.0) Mean Corpuscular Hemoglobin Concent 31.6 G/DL (32.0-36.0) L Red Cell Distribution Width 14.2 % (11.6-14.8) Platelet Count 112 K/UL (150-450) L Mean Platelet Volume 8.0 FL (6.5-10.1) Neutrophils (%) (Auto) 47.5 % (45.0-75.0) Lymphocytes (%) (Auto) 39.9 % (20.0-45.0) Monocytes (%) (Auto) 9.1 % (1.0-10.0) Eosinophils (%) (Auto) 2.3 % (0.0-3.0) Basophils (%) (Auto) 1.2 % (0.0-2.0) Sodium Level 139 mEQ/L (135-145) Potassium Level 3.4 mEQ/L (3.4-4.9) Chloride Level 97 mEQ/L (98-107) L Carbon Dioxide Level 30 mEQ/L (20-30) Anion Gap 12 (5-15) Blood Urea Nitrogen 9 mg/dL (7-23) Creatinine 0.9 mg/dL (0.5-0.9) Estimat Glomerular Filtration Rate > 60 mL/min (>60) Glucose Level 342 mg/dL (74-106) #H Calcium Level 8.3 mg/dL (8.6-10.2) L Iron Level 62 ug/dL (37-145) Total Iron Binding Capacity 208 ug/dL (250-400) L Percent Iron Saturation 30 % (15-50) Unsaturated Iron Binding 146 ug/dL (112-346) Objective HEAD AND NECK: no JVD. LUNGS: Clear. CARDIOVASCULAR: Regular S1 and S2 with no gallop or murmur. ABDOMEN: Soft. EXTREMITIES: No pitting edema. MARCIA PINTO April 17, 2017 15:21
--- NOTE | 2017-04-17 15:24 | Infectious Diseases Prog Note ---
Assessment/Plan Problems: (1) Abnormal white blood cell (WBC) count Assessment & Plan: improved, suspect due to dehydration , with negative work up for infection , monitor off antibiotics (2) UTI (urinary tract infection) Assessment & Plan: with culture grew strep spp, most likely contamination, no need for antibiotics (3) Hyperglycemia Assessment & Plan: due to non complaint with meds, recommend counseling , and tight glycemic control to keep blood glucose between 80-120 (4) DKA (diabetic ketoacidoses) Assessment & Plan: continue long acting insuline with sliding scale to keep tight glycemic control Subjective ROS Limited/Unobtainable: Yes Allergies: Coded Allergies: No Known Allergies (Verified , NONE, 10/30/05) Subjective she refused to answer any questions. she doesn't follow commands Objective Vital Signs Last 24 Hour Vital Signs Date Time Temp Pulse Resp B/P Pulse Ox O2 Delivery O2 Flow Rate FiO2 04/17/17 08:49 141/99 04/17/17 08:49 82 141/99 04/17/17 08:00 97.6 82 18 141/99 100 Room Air 04/17/17 06:43 82 18 Room Air 04/17/17 00:00 98.8 89 18 112/87 100 Room Air 04/16/17 22:18 97.6 04/16/17 21:47 93 115/76 04/16/17 21:46 115/76 04/16/17 20:00 97.6 86 19 115/76 100 Room Air 93 Height (Feet): 5 Height (Inches): 6.00 Weight (Pounds): 130 General Appearance: WD/WN, no acute distress HEENT: normocephalic, atraumatic, anicteric, mucous membranes moist Respiratory/Chest: chest wall non-tender, lungs clear, normal breath sounds, no respiratory distress, no accessory muscle use Cardiovascular: normal peripheral pulses, normal rate, regular rhythm, no gallop/murmur, no JVD Abdomen: normal bowel sounds, soft, non tender, no organomegaly, non distended , no mass Extremities: no cyanosis, no clubbing Skin: no rash, no lesions Laboratory Tests Test 04/17/17 05:15 White Blood Count 7.1 K/UL (4.8-10.8) Red Blood Count 3.36 M/UL (4.20-5.40) L Hemoglobin 9.9 G/DL (12.0-16.0) L Hematocrit 31.4 % (37.0-47.0) L Mean Corpuscular Volume 93 FL (80-99) Mean Corpuscular Hemoglobin 29.5 PG (27.0-31.0) Mean Corpuscular Hemoglobin Concent 31.6 G/DL (32.0-36.0) L Red Cell Distribution Width 14.2 % (11.6-14.8) Platelet Count 112 K/UL (150-450) L Mean Platelet Volume 8.0 FL (6.5-10.1) Neutrophils (%) (Auto) 47.5 % (45.0-75.0) Lymphocytes (%) (Auto) 39.9 % (20.0-45.0) Monocytes (%) (Auto) 9.1 % (1.0-10.0) Eosinophils (%) (Auto) 2.3 % (0.0-3.0) Basophils (%) (Auto) 1.2 % (0.0-2.0) Sodium Level 139 mEQ/L (135-145) Potassium Level 3.4 mEQ/L (3.4-4.9) Chloride Level 97 mEQ/L (98-107) L Carbon Dioxide Level 30 mEQ/L (20-30) Anion Gap 12 (5-15) Blood Urea Nitrogen 9 mg/dL (7-23) Creatinine 0.9 mg/dL (0.5-0.9) Estimat Glomerular Filtration Rate > 60 mL/min (>60) Glucose Level 342 mg/dL (74-106) #H Calcium Level 8.3 mg/dL (8.6-10.2) L Iron Level 62 ug/dL (37-145) Total Iron Binding Capacity 208 ug/dL (250-400) L Percent Iron Saturation 30 % (15-50) Unsaturated Iron Binding 146 ug/dL (112-346) Current Medications Medications (Trade) Dose Ordered Sig/Mateo Route PRN Reason Start Time Stop Time Status Last Admin Dose Admin Acetaminophen (Tylenol) 650 mg Q4H PRN ORAL fever 04/16/17 14:30 05/16/17 14:29 Al Hydroxide/Mg Hydroxide (Mylanta II) 30 ml Q6H PRN ORAL dyspepsia 04/16/17 15:30 05/16/17 15:29 5/24/17 21:48 Albuterol/ Ipratropium (DuoNeb 0.5-3(2.5)mg/3ml) 3 ml Q4H PRN HHN Shortness of Breath 04/16/17 14:30 04/21/17 14:29 Amlodipine Besylate (Norvasc) 5 mg Q12HR ORAL 04/16/17 21:00 05/16/17 20:59 04/17/17 08:49 Calcium Carbonate (Tums) 500 mg DAILY ORAL 04/17/17 09:00 05/17/17 08:59 04/17/17 08:48 Chlorhexidine Gluconate (Mara-Hex 2%) 1 applic Q24H TOPIC 04/17/17 00:00 05/17/17 00:00 04/17/17 00:30 Clonidine HCl (Catapres) 0.1 mg Q4H PRN ORAL SBP > 160 04/16/17 14:30 05/16/17 14:29 Dextrose (Dextrose 50%) STAT PRN IV Hypoglycemia 04/16/17 14:56 05/16/17 14:55 Divalproex Sodium (Depakote ER) 500 mg BEDTIME ORAL 04/16/17 21:00 05/16/17 20:59 04/16/17 21:47 Heparin Sodium (Porcine) (Heparin 5000 units/ml) 5,000 units EVERY 12 HOURS SUBQ 04/16/17 21:00 05/16/17 20:59 04/16/17 21:50 Insulin Aspart (NovoLOG) BEFORE MEALS AND HS SUBQ 04/16/17 16:30 05/16/17 16:29 04/17/17 12:35 Insulin Aspart (NovoLOG) 4 units NOVOTIAC SUBQ 04/16/17 16:50 05/16/17 16:49 04/17/17 12:35 Insulin Detemir (Levemir) 8 units BID SUBQ 04/16/17 18:00 05/16/17 17:59 04/17/17 08:55 Ketorolac Tromethamine (Toradol 30mg) 30 mg Q6H PRN IV moderate pain 4-6 04/16/17 14:57 04/21/17 14:56 Lisinopril (Zestril) 10 mg Q12HR ORAL 04/16/17 21:00 05/16/17 20:59 04/17/17 08:49 Morphine Sulfate (Morphine Sulfate) 2 mg Q4H PRN IVP severe pain 7-10 04/16/17 14:30 04/23/17 14:29 04/16/17 21:48 Nitroglycerin (Ntg) 0.4 mg Q5M X 3 DOSES PRN SL Prn Chest Pain 04/16/17 13:45 05/16/17 13:44 Ondansetron HCl (Zofran) 4 mg Q6H PRN IVP Nausea & Vomiting 04/16/17 14:57 05/16/17 14:56 04/16/17 15:30 Pantoprazole (Protonix) 40 mg DAILY ORAL 04/17/17 09:00 05/17/17 08:59 04/17/17 08:49 Polyethylene Glycol (Miralax) 17 gm HSPRN PRN ORAL Constipation 04/16/17 14:57 05/16/17 14:56 Ranitidine HCl (Zantac) 150 mg 1900 ORAL 04/16/17 19:00 05/16/17 18:59 04/16/17 18:41 Temazepam (Restoril) 15 mg HSPRN PRN ORAL Insomnia 04/16/17 14:58 04/23/17 14:57 04/16/17 21:47 Choco Lozada M.D. April 17, 2017 15:24
[2017-04-17 16:00] VITALS: BP 101/74
[2017-04-17 20:51] VITALS: BP 141/103
[2017-04-17] MEDS ORDERED: Depakote ER 500mg tab ORAL SCH (21:00)
--- NOTE | 2017-04-17 21:21 | Pulmonology Progress Note ---
Subjective Allergies: Coded Allergies: No Known Allergies (Verified , NONE, 10/30/05) Objective Last 24 Hour Vital Signs Date Time Temp Pulse Resp B/P Pulse Ox O2 Delivery O2 Flow Rate FiO2 04/17/17 20:51 97.8 86 21 141/103 100 Room Air 86 04/17/17 19:35 85 18 Room Air 04/17/17 16:00 97.1 74 22 101/74 97 Room Air 04/17/17 08:49 141/99 04/17/17 08:49 82 141/99 04/17/17 08:00 97.6 82 18 141/99 100 Room Air 04/17/17 06:43 82 18 Room Air 04/17/17 00:00 98.8 89 18 112/87 100 Room Air 04/16/17 22:18 97.6 04/16/17 21:47 93 115/76 04/16/17 21:46 115/76 Intake and Output 04/16/17 04/17/17 19:00 07:00 Intake Total 800 ml Balance 800 ml Intake Oral 350 ml IV Total 450 ml Laboratory Tests 04/17/17 05:15: White Blood Count 7.1, Red Blood Count 3.36L, Hemoglobin 9.9L, Hematocrit 31.4L , Mean Corpuscular Volume 93, Mean Corpuscular Hemoglobin 29.5, Mean Corpuscular Hemoglobin Concent 31.6L, Red Cell Distribution Width 14.2, Platelet Count 112L, Mean Platelet Volume 8.0, Neutrophils (%) (Auto) 47.5, Lymphocytes (%) (Auto) 39.9, Monocytes (%) (Auto) 9.1, Eosinophils (%) (Auto) 2.3, Basophils (%) (Auto) 1.2, Sodium Level 139, Potassium Level 3.4, Chloride Level 97L, Carbon Dioxide Level 30, Anion Gap 12, Blood Urea Nitrogen 9, Creatinine 0.9, Estimat Glomerular Filtration Rate > 60, Glucose Level 342#H, Calcium Level 8.3L, Iron Level 62, Total Iron Binding Capacity 208L, Percent Iron Saturation 30, Unsaturated Iron Binding 146 Current Medications Medications (Trade) Dose Ordered Sig/Mateo Route PRN Reason Start Time Stop Time Status Last Admin Dose Admin Acetaminophen (Tylenol) 650 mg Q4H PRN ORAL fever 04/16/17 14:30 05/16/17 14:29 Al Hydroxide/Mg Hydroxide (Mylanta II) 30 ml Q6H PRN ORAL dyspepsia 04/16/17 15:30 05/16/17 15:29 04/16/17 21:48 Albuterol/ Ipratropium (DuoNeb 0.5-3(2.5)mg/3ml) 3 ml Q4H PRN HHN Shortness of Breath 04/16/17 14:30 04/21/17 14:29 Amlodipine Besylate (Norvasc) 5 mg Q12HR ORAL 04/16/17 21:00 05/16/17 20:59 04/17/17 08:49 Calcium Carbonate (Tums) 500 mg DAILY ORAL 04/17/17 09:00 05/17/17 08:59 04/17/17 08:48 Chlorhexidine Gluconate (Mara-Hex 2%) 1 applic Q24H TOPIC 04/17/17 00:00 05/17/17 00:00 04/17/17 00:30 Clonidine HCl (Catapres) 0.1 mg Q4H PRN ORAL SBP > 160 04/16/17 14:30 05/16/17 14:29 Dextrose (Dextrose 50%) STAT PRN IV Hypoglycemia 04/16/17 14:56 05/16/17 14:55 04/17/17 19:15 Divalproex Sodium (Depakote ER) 1,000 mg BEDTIME ORAL 04/17/17 21:00 05/17/17 20:59 Heparin Sodium (Porcine) (Heparin 5000 units/ml) 5,000 units EVERY 12 HOURS SUBQ 04/16/17 21:00 05/16/17 20:59 04/16/17 21:50 Insulin Aspart (NovoLOG) BEFORE MEALS AND HS SUBQ 04/16/17 16:30 05/16/17 16:29 04/17/17 12:35 Insulin Aspart (NovoLOG) 4 units NOVOTIAC SUBQ 04/16/17 16:50 05/16/17 16:49 04/17/17 12:35 Insulin Detemir (Levemir) 8 units BID SUBQ 04/16/17 18:00 05/16/17 17:59 04/17/17 08:55 Ketorolac Tromethamine (Toradol 30mg) 30 mg Q6H PRN IV moderate pain 4-6 04/16/17 14:57 04/21/17 14:56 Lisinopril (Zestril) 10 mg Q12HR ORAL 04/16/17 21:00 05/16/17 20:59 04/17/17 08:49 Morphine Sulfate (Morphine Sulfate) 2 mg Q4H PRN IVP severe pain 7-10 04/16/17 14:30 04/23/17 14:29 04/16/17 21:48 Nitroglycerin (Ntg) 0.4 mg Q5M X 3 DOSES PRN SL Prn Chest Pain 04/16/17 13:45 05/16/17 13:44 Ondansetron HCl (Zofran) 4 mg Q6H PRN IVP Nausea & Vomiting 04/16/17 14:57 05/16/17 14:56 04/16/17 15:30 Pantoprazole (Protonix) 40 mg DAILY ORAL 04/17/17 09:00 05/17/17 08:59 04/17/17 08:49 Polyethylene Glycol (Miralax) 17 gm HSPRN PRN ORAL Constipation 04/16/17 14:57 05/16/17 14:56 Ranitidine HCl (Zantac) 150 mg 1900 ORAL 04/16/17 19:00 05/16/17 18:59 04/16/17 18:41 Temazepam (Restoril) 15 mg HSPRN PRN ORAL Insomnia 04/16/17 14:58 04/23/17 14:57 04/16/17 21:47 MILA LAINEZ April 17, 2017 21:21
[2017-04-18 00:03] VITALS: BP 141/96
[2017-04-18] MEDS: Dyna-Hex 2% Top Sol 8oz TOPIC SCH (00:18)
--- NOTE | 2017-04-18 02:46 | Consultation ---
DATE OF CONSULTATION: 04/17/2017 HISTORY OF PRESENT ILLNESS: The patient is a 42-year-old female with a history of diabetes mellitus, hypertension, history of noncompliance, history of UTI, anemia, DKA, seizure disorder, mood disorder as well as developmental disability, who has been admitted to the hospital for medical stabilization. The patient has been noncompliant and has uncontrollable hypertension as well as diabetes. I was consulted to assess the patient for capacity. Also, the patient presented with anxiety and mood instability. During the evaluation, the patient complained of abdominal pain and asking for pain medication. She is irritable, anxious and endorses impairment of memory. She is unable to understand process, communicate, or appreciate the information given to her in regards to her medical condition and her collateral information from social service agency director. The patient's mother has and at this time the patient is her own decision maker. The patient continues to present with poor insight and judgment into her mental condition. PAST PSYCHIATRIC HISTORY: She has a history of mood disorder, however, she denies any psychiatric hospitalizations. Denies any suicide attempts or violence in the past. PAST MEDICAL HISTORY: Significant for acute renal failure, GERD, seizure disorder, hypertension and diabetes mellitus. PAST SURGICAL HISTORY: None. ALLERGIES: No known drug allergies. SUBSTANCE ABUSE HISTORY: No history of illicit drug use or alcohol and the patient is a smoker. MENTAL STATUS EXAMINATION: The patient is oriented to person, place, and the situation she is in. Her mood is irritable. Affect is blunted. Congruent with mood. Thought process is congruent. Thought content, no delusions, no suicidal or homicidal ideations. Insight and judgment is impaired. Memory is impaired. ASSESSMENT: [place] I Mood disorder, not otherwise specified. [place] II Developmental disability. [place] III Hypertension and diabetes mellitus. [place] IV High. [place] V Global assessment of functioning is 30. PLAN: 1. The patient's Depakote will be increased to 1000 mg p.o. at bedtime. 2. The patient may not leave against medical advice, as she does not have capacity to make decisions. 3. We will continue to monitor the patient's behavior and readjust the medications accordingly. Jing Jaime M.D. DR: SILAS JOB#: [id number] CC:
[2017-04-18 04:00] VITALS: BP 150/101
[2017-04-18 05:17] VITALS: BP 150/101
[2017-04-18] MEDS: NovoLOG Insulin Flexpen SUBQ SCH ×4 (05:31→11:50)
[2017-04-18 07:05] LABS: CALCIUM 8.4 mg/dL (8.6-10.2); CREATININE 1.3 mg/dL (0.5-0.9); GLOMERULAR FILTRATION RATE 54.9 mL/min (>60); POTASSIUM 3.2 mEQ/L (3.4-4.9)
[2017-04-18 07:10] LABS: BASOPHILS % (AUTO) 0.4 % (0.0-2.0); EOSINOPHILS % (AUTO) 1.7 % (0.0-3.0); LYMPHOCYTES % (AUTO) 36.5 % (20.0-45.0); MEAN CORPUSCULAR HEMOGLOBIN 30.2 PG (27.0-31.0); MEAN CORPUSCULAR HGB CONC 32.4 G/DL (32.0-36.0); MEAN CORPUSCULAR VOLUME 93 FL (80-99); MEAN PLATELET VOLUME 8.1 FL (6.5-10.1); MONOCYTES % (AUTO) 11.2 % (1.0-10.0); NEUTROPHILS % (AUTO) 50.2 % (45.0-75.0); PLATELET COUNT 139 K/UL (150-450); RED BLOOD COUNT 3.09 M/UL (4.20-5.40); RED CELL DISTRIBUTION WIDTH 14.4 % (11.6-14.8); WHITE BLOOD COUNT 7.2 K/UL (4.8-10.8)
[2017-04-18 08:00] VITALS: BP 105/68
[2017-04-18] MEDS: Tums 500mg ORAL SCH (08:44)
[2017-04-18] MEDS: Lisinopril 10mg tab ORAL SCH (08:44)
[2017-04-18] MEDS: Heparin 5000 units/ml inj SUBQ SCH (08:45)
[2017-04-18] MEDS: Levemir Flexpen SUBQ SCH (08:46)
[2017-04-18 12:00] VITALS: BP 121/85
--- NOTE | 2017-04-18 13:25 | GI Progress Note ---
Assessment/Plan Problems: (1) esophageal wall thickening (2) Intractable nausea and vomiting ICD Codes: R11.2 - Nausea with vomiting, unspecified SNOMED: 203508968, 678126078 (3) Altered mental status ICD Codes: R41.82 - Altered mental status, unspecified SNOMED: 819079217 (4) DKA (diabetic ketoacidoses) ICD Codes: E13.10 - Other specified diabetes mellitus with ketoacidosis without coma SNOMED: 21693183, 831510541 (5) Gastroparesis due to DM ICD Codes: E11.43 - Type 2 diabetes mellitus with diabetic autonomic (poly) neuropathy; K31.84 - Gastroparesis SNOMED: 91077047, 208497955 Status: stable Status Narrative Discussed with Dr. Vickers. Assessment/Plan Date of Service: 02/08/17 PROCEDURE: Upper endoscopy with biopsy. INDICATION: Esophagitis lung CT and esophageal wall thickening. S/P EGD SUMMARY FINDINGS: 1. Severe distal esophagitis with some white discharge only suspicious for candidal status post biopsy. >> negative for fungal organisms. Revealed sloughing inflamed necrotic tissue with neutrophils, see full pathology report. 2. Gastritis, status post biopsy. >> unremarkable HgA1C >> 9.0 elevated triglycerides iron panel unremarkable ST eval noted >> FLD ok for DC per GI standpoint symptomatic treatment at this time reglan for GI motility DM mgmt zofran prn monitor H&H, transfuse prn >> OB stool uncollected to r/o GI bleed due to hgb drop cont ppi abx fu labs Subjective Subjective complain of hunger Objective Last 24 Hour Vital Signs Date Time Temp Pulse Resp B/P Pulse Ox O2 Delivery O2 Flow Rate FiO2 04/18/17 12:00 98.0 89 20 121/85 95 Room Air 04/18/17 08:44 105/68 04/18/17 08:44 88 105/68 04/18/17 08:00 98.1 88 20 105/68 96 Room Air 04/18/17 07:25 86 18 Room Air 04/18/17 05:17 98.8 84 21 150/101 95 Room Air 21 04/18/17 04:00 98.8 84 21 150/101 95 Room Air 84 04/18/17 00:03 98.0 89 21 141/96 100 Room Air 89 04/17/17 21:39 86 141/103 04/17/17 21:38 141/103 04/17/17 20:51 97.8 86 21 141/103 100 Room Air 86 04/17/17 19:35 85 18 Room Air 04/17/17 16:00 97.1 74 22 101/74 97 Room Air Intake and Output 04/17/17 04/18/17 19:00 07:00 Intake Total 120 ml Balance 120 ml Intake Oral 120 ml # Voids 2 Laboratory Tests Test 04/18/17 05:05 White Blood Count 7.2 K/UL (4.8-10.8) Red Blood Count 3.09 M/UL (4.20-5.40) L Hemoglobin 9.3 G/DL (12.0-16.0) L Hematocrit 28.8 % (37.0-47.0) L Mean Corpuscular Volume 93 FL (80-99) Mean Corpuscular Hemoglobin 30.2 PG (27.0-31.0) Mean Corpuscular Hemoglobin Concent 32.4 G/DL (32.0-36.0) Red Cell Distribution Width 14.4 % (11.6-14.8) Platelet Count 139 K/UL (150-450) L Mean Platelet Volume 8.1 FL (6.5-10.1) Neutrophils (%) (Auto) 50.2 % (45.0-75.0) Lymphocytes (%) (Auto) 36.5 % (20.0-45.0) Monocytes (%) (Auto) 11.2 % (1.0-10.0) H Eosinophils (%) (Auto) 1.7 % (0.0-3.0) Basophils (%) (Auto) 0.4 % (0.0-2.0) Sodium Level 137 mEQ/L (135-145) Potassium Level 3.2 mEQ/L (3.4-4.9) L Chloride Level 94 mEQ/L (98-107) L Carbon Dioxide Level 33 mEQ/L (20-30) H Anion Gap 10 (5-15) Blood Urea Nitrogen 12 mg/dL (7-23) Creatinine 1.3 mg/dL (0.5-0.9) H Estimat Glomerular Filtration Rate 54.9 mL/min (>60) Glucose Level 337 mg/dL (74-106) H Calcium Level 8.4 mg/dL (8.6-10.2) L Height (Feet): 5 Height (Inches): 6.00 Weight (Pounds): 130 General Appearance: no apparent distress, alert Cardiovascular: normal rate Respiratory/Chest: normal breath sounds, no respiratory distress Abdominal Exam: normal bowel sounds, non tender, soft Extremities: normal range of motion Muriel Serra N.P. April 18, 2017 13:25
--- NOTE | 2017-04-18 13:56 | General Progress Note ---
Assessment/Plan Problem List: (1) Psychiatric disorder ICD Codes: F99 - Mental disorder, not otherwise specified SNOMED: 25317040, 488469428 (2) Diabetes ICD Codes: E11.9 - Type 2 diabetes mellitus without complications SNOMED: 97078521 (3) Altered mental status ICD Codes: R41.82 - Altered mental status, unspecified SNOMED: 239218487 (4) HTN (hypertension) ICD Codes: I10 - Essential (primary) hypertension SNOMED: 70177906 (5) Gastroparesis due to DM ICD Codes: E11.43 - Type 2 diabetes mellitus with diabetic autonomic (poly) neuropathy; K31.84 - Gastroparesis SNOMED: 50421516, 472193496 Status: stable, progressing, tolerating diet Assessment/Plan ot pt diet bp bs control cbc bmp am dc w hh Subjective Constitutional: Reports: weakness Allergies: Coded Allergies: No Known Allergies (Verified , NONE, 10/30/05) All Systems: reviewed and negative except above Subjective sleepy calm in room Objective Last 24 Hour Vital Signs Date Time Temp Pulse Resp B/P Pulse Ox O2 Delivery O2 Flow Rate FiO2 04/18/17 12:00 98.0 89 20 121/85 95 Room Air 04/18/17 08:44 105/68 04/18/17 08:44 88 105/68 04/18/17 08:00 98.1 88 20 105/68 96 Room Air 04/18/17 07:25 86 18 Room Air 04/18/17 05:17 98.8 84 21 150/101 95 Room Air 21 04/18/17 04:00 98.8 84 21 150/101 95 Room Air 84 04/18/17 00:03 98.0 89 21 141/96 100 Room Air 89 04/17/17 21:39 86 141/103 04/17/17 21:38 141/103 04/17/17 20:51 97.8 86 21 141/103 100 Room Air 86 04/17/17 19:35 85 18 Room Air 04/17/17 16:00 97.1 74 22 101/74 97 Room Air Intake and Output 04/17/17 04/18/17 19:00 07:00 Intake Total 120 ml Balance 120 ml Intake Oral 120 ml # Voids 2 Laboratory Tests 04/18/17 05:05: White Blood Count 7.2, Red Blood Count 3.09L, Hemoglobin 9.3L, Hematocrit 28.8L , Mean Corpuscular Volume 93, Mean Corpuscular Hemoglobin 30.2, Mean Corpuscular Hemoglobin Concent 32.4, Red Cell Distribution Width 14.4, Platelet Count 139L, Mean Platelet Volume 8.1, Neutrophils (%) (Auto) 50.2, Lymphocytes ( %) (Auto) 36.5, Monocytes (%) (Auto) 11.2H, Eosinophils (%) (Auto) 1.7, Basophils (%) (Auto) 0.4, Sodium Level 137, Potassium Level 3.2L, Chloride Level 94L, Carbon Dioxide Level 33H, Anion Gap 10, Blood Urea Nitrogen 12, Creatinine 1.3H, Estimat Glomerular Filtration Rate 54.9, Glucose Level 337H, Calcium Level 8.4L Height (Feet): 5 Height (Inches): 6.00 Weight (Pounds): 130 General Appearance: lethargic EENT: normal ENT inspection Neck: normal alignment Cardiovascular: normal peripheral pulses, normal rate, regular rhythm Respiratory/Chest: chest wall non-tender, lungs clear, normal breath sounds Abdomen: normal bowel sounds, non tender, soft Extremities: normal inspection Edema: no edema noted Arm (L), no edema noted Arm (R), no edema noted Leg (L), no edema noted Leg (R), no edema noted Pedal (L), no edema noted Pedal (R), no edema noted Generalized Neurologic: motor weakness Skin: normal pigmentation, warm/dry ENOCH GONZALEZ April 18, 2017 13:56
--- NOTE | 2017-04-18 14:29 | Nephrology Progress Note ---
Assessment/Plan Problem List: (1) CIERA (acute kidney injury) Assessment: Improved (2) Diabetes Assessment: Uncontrolled (3) HTN (hypertension) (4) Seizure disorder (5) Psychiatric disorder (6) Intractable nausea and vomiting Plan Monitor Renal function Avoid nephrotoxic agents Monitor lytes, correct prn ID following BP and BS control DVT prophylaxis GI following AM labs Subjective Constitutional: Denies: chills, diaphoresis, fever, malaise, no symptoms, other , weakness HEENT: Denies: blurred vision, double vision, ear discharge, ear pain, eye pain , mouth pain, mouth swelling, no symptoms, nose congestion, nose pain, other, tearing, throat pain, throat swelling Genitourinary: Denies: burning, discharge, flank pain, frequency, hematuria, incontinence, no symptoms, other, pain, urgency Neurologic/Psychiatric: Denies: anxiety, depressed, emotional problems, headache, no symptoms, numbness, other, paresthesia, pre-existing deficit, seizure, tingling, tremors, weakness Subjective In bed, states that she's waiting to go home Objective Objective Last 24 Hour Vital Signs Date Time Temp Pulse Resp B/P Pulse Ox O2 Delivery O2 Flow Rate FiO2 04/18/17 12:00 98.0 89 20 121/85 95 Room Air 04/18/17 08:44 105/68 04/18/17 08:44 88 105/68 04/18/17 08:00 98.1 88 20 105/68 96 Room Air 04/18/17 07:25 86 18 Room Air 04/18/17 05:17 98.8 84 21 150/101 95 Room Air 21 04/18/17 04:00 98.8 84 21 150/101 95 Room Air 84 04/18/17 00:03 98.0 89 21 141/96 100 Room Air 89 04/17/17 21:39 86 141/103 04/17/17 21:38 141/103 04/17/17 20:51 97.8 86 21 141/103 100 Room Air 86 04/17/17 19:35 85 18 Room Air 04/17/17 16:00 97.1 74 22 101/74 97 Room Air Intake and Output 04/17/17 04/18/17 19:00 07:00 Intake Total 120 ml Balance 120 ml Intake Oral 120 ml # Voids 2 Laboratory Tests 04/18/17 05:05: White Blood Count 7.2, Red Blood Count 3.09L, Hemoglobin 9.3L, Hematocrit 28.8L , Mean Corpuscular Volume 93, Mean Corpuscular Hemoglobin 30.2, Mean Corpuscular Hemoglobin Concent 32.4, Red Cell Distribution Width 14.4, Platelet Count 139L, Mean Platelet Volume 8.1, Neutrophils (%) (Auto) 50.2, Lymphocytes ( %) (Auto) 36.5, Monocytes (%) (Auto) 11.2H, Eosinophils (%) (Auto) 1.7, Basophils (%) (Auto) 0.4, Sodium Level 137, Potassium Level 3.2L, Chloride Level 94L, Carbon Dioxide Level 33H, Anion Gap 10, Blood Urea Nitrogen 12, Creatinine 1.3H, Estimat Glomerular Filtration Rate 54.9, Glucose Level 337H, Calcium Level 8.4L Height (Feet): 5 Height (Inches): 6.00 Weight (Pounds): 130 General Appearance: no apparent distress EENT: normal ENT inspection Neck: normal alignment Cardiovascular: normal rate, regular rhythm, no JVD Respiratory/Chest: normal breath sounds, no respiratory distress Abdomen: soft, no organomegaly Extremities: non-tender, normal inspection Neurologic: alert, oriented x 3, responsive, normal mood/affect Grace Ramesh N.P. April 18, 2017 14:29
[2017-04-18] MEDS ORDERED: TYLENOL650 MG/20. ORAL (15:01)
[2017-04-18] MEDS ORDERED: MYLANTA II30 ML ORAL (15:02)
[2017-04-18] MEDS ORDERED: CALCIUM CARBON500 M1 PO (15:03)
[2017-04-18] MEDS ORDERED: DEPAKOTE ER500 MG ORAL (15:04)
[2017-04-18] MEDS ORDERED: NOVOLOG100 UNIT/3 SUBQ ×2 (15:04→15:05)
[2017-04-18] MEDS ORDERED: LEVEMIR100 UNIT/1 SUBQ (15:05)
[2017-04-18] MEDS ORDERED: PROTONIX40 MG ORAL (15:06)
[2017-04-18] MEDS ORDERED: NITROGLYCERIN0.4 MG SL (15:06)
[2017-04-18] MEDS ORDERED: RESTORIL15 MG ORAL (15:07)
[2017-04-18] MEDS ORDERED: ZANTAC150 MG ORAL (15:07)
[2017-04-18] MEDS ORDERED: MIRALAX17 G2 ORAL (15:07)
[2017-04-18] MEDS ORDERED: NORVASC5 MG ORAL (15:08)
[2017-04-18] MEDS ORDERED: CLONIDINE0.1 MG PO (15:08)
--- NOTE | 2017-04-18 19:31 | Pulmonology Progress Note ---
Subjective Allergies: Coded Allergies: No Known Allergies (Verified , NONE, 10/30/05) Objective Last 24 Hour Vital Signs Date Time Temp Pulse Resp B/P Pulse Ox O2 Delivery O2 Flow Rate FiO2 04/18/17 12:00 98.0 89 20 121/85 95 Room Air 04/18/17 08:44 105/68 04/18/17 08:44 88 105/68 04/18/17 08:00 98.1 88 20 105/68 96 Room Air 04/18/17 07:25 86 18 Room Air 04/18/17 05:17 98.8 84 21 150/101 95 Room Air 21 04/18/17 04:00 98.8 84 21 150/101 95 Room Air 84 04/18/17 00:03 98.0 89 21 141/96 100 Room Air 89 04/17/17 21:39 86 141/103 04/17/17 21:38 141/103 04/17/17 20:51 97.8 86 21 141/103 100 Room Air 86 04/17/17 19:35 85 18 Room Air Intake and Output 04/17/17 04/18/17 19:00 07:00 Intake Total 120 ml Balance 120 ml Intake Oral 120 ml # Voids 2 Laboratory Tests 04/18/17 05:05: White Blood Count 7.2, Red Blood Count 3.09L, Hemoglobin 9.3L, Hematocrit 28.8L , Mean Corpuscular Volume 93, Mean Corpuscular Hemoglobin 30.2, Mean Corpuscular Hemoglobin Concent 32.4, Red Cell Distribution Width 14.4, Platelet Count 139L, Mean Platelet Volume 8.1, Neutrophils (%) (Auto) 50.2, Lymphocytes ( %) (Auto) 36.5, Monocytes (%) (Auto) 11.2H, Eosinophils (%) (Auto) 1.7, Basophils (%) (Auto) 0.4, Sodium Level 137, Potassium Level 3.2L, Chloride Level 94L, Carbon Dioxide Level 33H, Anion Gap 10, Blood Urea Nitrogen 12, Creatinine 1.3H, Estimat Glomerular Filtration Rate 54.9, Glucose Level 337H, Calcium Level 8.4L MILA LAINEZ April 18, 2017 19:31
== END 2017-04-18 15:20 | disposition home health service (06) | DRG 420 ==
LOC: EDBD 11:08 → EMR 12:41 → EDBEDREQ 15:10 → 4W 15:40 → 2E 04-14 16:52 → 4W 04-16 13:45
PROC: 02HV33Z Insertion of Infusion Device into Superior Vena Cava, Percutaneous Approach (ICD-10-PCS; principal; 2017-04-14)
PROC: B548ZZA Ultrasonography of Superior Vena Cava, Guidance (ICD-10-PCS; 2017-04-14)
DX: E13.10 Other specified diabetes mellitus with ketoacidosis without coma (principal); N17.9 Acute kidney failure, unspecified; B37.81 Candidal esophagitis; K31.84 Gastroparesis; N39.0 Urinary tract infection, site not specified; E86.0 Dehydration; I10 Essential (primary) hypertension; G40.909 Epilepsy, unspecified, not intractable, without status epilepticus; Z72.0 Tobacco use; Z91.14 Patient's other noncompliance with medication regimen; F41.9 Anxiety disorder, unspecified; F79 Unspecified intellectual disabilities; F39 Unspecified mood [affective] disorder
CPT/HCPCS: 36415; 36569; 76937; 80048; 80053; 80061; 81003; 81025; 82009; 82962; 83036; 83540; 83550; 83690; 84443; 85007; 85025; 87040; 87086; 92610; 94664; 97803; J1815; J2405; S5561

== ENCOUNTER 2017-04-21 11:03 | Inpatient (IN) | payer MEDICAID ==
[~2017-04-21] VITALS: Ht 167.6 cm; Wt 59.0 kg
[~2017-04-21 11:03] MED LIST changes: +CALCIUM CARBON500 M1 PO; +CLONIDINE0.1 MG PO; +DEPAKOTE ER500 MG ORAL; +MIRALAX17 G2 ORAL; +MYLANTA II30 ML ORAL; +NITROGLYCERIN0.4 MG SL; +RESTORIL15 MG ORAL; +TYLENOL650 MG/20. ORAL; +ZANTAC150 MG ORAL
[2017-04-21] MEDS ORDERED: Morphine Sulfate 4mg/ml Inj IVP ONE (11:15)
[2017-04-21 12:24] LABS: BASOPHILS % (AUTO) 0.7 % (0.0-2.0); EOSINOPHILS % (AUTO) 1.8 % (0.0-3.0); LYMPHOCYTES % (AUTO) 30.6 % (20.0-45.0); MEAN CORPUSCULAR HEMOGLOBIN 31.4 PG (27.0-31.0); MEAN CORPUSCULAR HGB CONC 33.7 G/DL (32.0-36.0); MEAN CORPUSCULAR VOLUME 93 FL (80-99); MEAN PLATELET VOLUME 7.3 FL (6.5-10.1); MONOCYTES % (AUTO) 8.6 % (1.0-10.0); NEUTROPHILS % (AUTO) 58.3 % (45.0-75.0); PLATELET COUNT 231 K/UL (150-450); RED BLOOD COUNT 3.25 M/UL (4.20-5.40); RED CELL DISTRIBUTION WIDTH 14.6 % (11.6-14.8); WHITE BLOOD COUNT 8.1 K/UL (4.8-10.8)
[2017-04-21 12:33] VITALS: BP 212/111
[2017-04-21 12:34] LABS: ALANINE AMINOTRANSFERASE 18 U/L (3-33); ANION GAP 15 (5-15); ASPARTATE AMINO TRANSFERASE 31 U/L (5-40); CALCIUM 8.5 mg/dL (8.6-10.2); CARBON DIOXIDE 31 mEQ/L (20-30); CHLORIDE 97 mEQ/L (98-107); CREATININE 1.2 mg/dL (0.5-0.9); GLOMERULAR FILTRATION RATE > 60 mL/min (>60); HEMOLYSIS 7; LIPASE 7 U/L (< 60); MAGNESIUM 1.3 mg/dL (1.7-2.5); POTASSIUM 3.2 mEQ/L (3.4-4.9); SODIUM 143 mEQ/L (135-145); TOTAL PROTEIN 6.9 g/dL (6.6-8.7)
[2017-04-21 14:28] VITALS: BP 161/92
[2017-04-21 16:00] VITALS: BP 164/91
[2017-04-21] MEDS ORDERED: Nitroglycerin Subl 0.4mg tab (Bottle Of 25) SL PRN (16:45)
[2017-04-21] MEDS ORDERED: Morphine Sulfate 2mg/ml Inj IVP PRN (16:45)
[2017-04-21] MEDS ORDERED: Mylanta II UD 30ml ORAL PRN (16:45)
[2017-04-21] MEDS ORDERED: Ketorolac 30mg Inj IV PRN (16:45)
[2017-04-21] MEDS ORDERED: DuoNeb 0.5-3(2.5)mg/3ml neb HHN PRN (16:45)
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
[2017-04-21 17:20] VITALS: BP 176/97
[2017-04-21 18:18] VITALS: BP 172/93
[2017-04-21 20:00] VITALS: BP 138/96
[2017-04-21] MEDS ORDERED: Miralax 17gm pkt ORAL PRN (21:00)
[2017-04-21] MEDS: Levemir Flexpen SUBQ SCH (21:30)
[2017-04-21] MEDS: NovoLOG Insulin Flexpen SUBQ SCH (21:30)
[2017-04-21] MEDS: Heparin 5000 units/ml inj SUBQ SCH (21:31)
--- NOTE | 2017-04-21 22:49 | Consultation ---
History of Present Illness General Date patient seen: April 21, 2017 Chief Complaint: Vomiting Present Illness HPI 42 year old female with labile DM, noncompliance presented to ER with severe abdominal pain and vomiting. The pain is epigastric presents unable to keep down fluids at this time. She is admitted for intractable abdominal pain and uncontrolled DM. Allergies: Coded Allergies: No Known Allergies (Verified , NONE, 10/30/05) Medication History Scheduled Acetaminophen (Acetaminophen), 650 MG ORAL EVERY 4 HOURS, (Reported) Al Hydroxide/mg Hydroxide (Mag-Al Plus Suspension), 30 ML ORAL EVERY 6 HOURS, ( Reported) Amlodipine Besylate (Norvasc), 5 MG ORAL Q12HR, (Reported) Calcium Carbonate (Calcium Carbonate), 500 MG PO DAILY, (Reported) Clonidine HCl (Clonidine HCl), 0.1 MG PO EVERY 4 HOURS, (Reported) Divalproex Sodium* (Depakote Er*), 1,000 MG ORAL QHS, (Reported) Insulin Aspart* (Novolog*), 0 SUBQ BEFORE MEALS AND HS, (Reported) Insulin Detemir (Levemir), 8 SUBQ BID, (Reported) Pantoprazole* (Protonix*), 40 MG ORAL DAILY, (Reported) Pantoprazole* (Protonix*), 40 MG ORAL DAILY, (Reported) Polyethylene Glycol 3350* (Miralax*), 17 GM ORAL HS, (Reported) Ranitidine Hcl* (Zantac*), 150 MG ORAL TWICE A DAY, (Reported) Ranitidine Hcl* (Zantac*), 150 MG ORAL DAILY, (Reported) Scheduled PRN Temazepam* (Restoril*), 15 MG ORAL BEDTIME PRN for Insomnia, (Reported) Miscellaneous Medications Insulin Aspart* (Novolog*), 4 SUBQ, (Reported) Nitroglycerin (Nitroglycerin), 0.4 MG SL, (Reported) Discontinued Medications Amlodipine Besylate (Norvasc), 5 MG ORAL DAILY, (Reported) Discontinued Reason: MD discontinued med Calcium Carbonate (Calcium), 600 MG PO DAILY, (Reported) Discontinued Reason: MD discontinued med Cholecalciferol (Vitamin D3)* (Vitamin D*), 1,000 UNIT ORAL DAILY, (Reported) Discontinued Reason: MD discontinued med Divalproex Sodium (Divalproex Sodium Er), 500 MG PO BEDTIME, (Reported) Discontinued Reason: MD discontinued med Divalproex Sodium* (Depakote Er*), 250 MG ORAL BEDTIME, (Reported) Discontinued Reason: MD discontinued med Insulin Aspart (Novolog Flexpen), SUBQ TID PRN for SLIDING SCALE, (Reported) Discontinued Reason: MD discontinued med Insulin Detemir (Levemir), 0 SUBQ BEDTIME, (Reported) Discontinued Reason: MD discontinued med Insulin Glargine (Lantus), 0 SUBQ DAILY, (Reported) Discontinued Reason: MD discontinued med Insulin Glargine (Lantus), 15 SUBQ DAILY, (Reported) Discontinued Reason: MD discontinued med Insulin Lispro (Humalog), 0 SUBQ BEFORE MEALS, (Reported) Discontinued Reason: MD discontinued med Insulin Lispro (Humalog), 5 SUBQ AC, (Reported) Discontinued Reason: MD discontinued med Sennosides (Senna), 8.6 MG PO DAILY PRN for Constipation, (Reported) Discontinued Reason: MD discontinued med Sucralfate* (Carafate*), 1 GM ORAL FOUR TIMES A DAY, (Reported) Discontinued Reason: MD discontinued med Thiamine Hcl* (Vitamin B-1*), 100 MG ORAL DAILY, (Reported) Discontinued Reason: MD discontinued med Patient History Healthcare decision maker Resuscitation status Full Code Advanced Directive on File Past Medical/Surgical History Past Medical/Surgical History: (1) Intractable nausea and vomiting (2) Gastroparesis due to DM (3) Hyperglycemia (4) Abdominal pain (5) Persistent vomiting Review of Systems Gastrointestinal: Reports: abdominal pain, nausea, vomiting All Other Systems: negative except mentioned in HPI Physical Exam General Appearance: WD/WN, mild distress Lines, tubes and drains: peripheral HEENT: normocephalic Neck: non-tender Respiratory/Chest: chest wall non-tender Breasts: no masses Cardiovascular/Chest: normal peripheral pulses, normal rate Abdomen: normal bowel sounds Genitourinary/Rectal: normal genital exam Extremities: normal range of motion, non-tender Skin Exam: normal pigmentation Last 24 Hour Vital Signs Date Time Temp Pulse Resp B/P Pulse Ox O2 Delivery O2 Flow Rate FiO2 04/21/17 18:18 85 20 172/93 100 Room Air 04/21/17 17:38 176/97 04/21/17 17:33 97.0 79 18 176/97 100 Room Air 04/21/17 17:20 79 18 176/97 100 Room Air 04/21/17 16:00 76 18 164/91 100 Room Air 04/21/17 14:28 80 18 161/92 100 Room Air 04/21/17 12:33 85 18 212/111 100 Room Air 04/21/17 12:22 97.0 04/21/17 10:54 97.0 84 22 174/110 100 Room Air Laboratory Tests Test 04/21/17 12:15 White Blood Count 8.1 K/UL (4.8-10.8) Red Blood Count 3.25 M/UL (4.20-5.40) L Hemoglobin 10.2 G/DL (12.0-16.0) L Hematocrit 30.3 % (37.0-47.0) L Mean Corpuscular Volume 93 FL (80-99) Mean Corpuscular Hemoglobin 31.4 PG (27.0-31.0) H Mean Corpuscular Hemoglobin Concent 33.7 G/DL (32.0-36.0) Red Cell Distribution Width 14.6 % (11.6-14.8) Platelet Count 231 K/UL (150-450) Mean Platelet Volume 7.3 FL (6.5-10.1) Neutrophils (%) (Auto) 58.3 % (45.0-75.0) Lymphocytes (%) (Auto) 30.6 % (20.0-45.0) Monocytes (%) (Auto) 8.6 % (1.0-10.0) Eosinophils (%) (Auto) 1.8 % (0.0-3.0) Basophils (%) (Auto) 0.7 % (0.0-2.0) Sodium Level 143 mEQ/L (135-145) Potassium Level 3.2 mEQ/L (3.4-4.9) L Chloride Level 97 mEQ/L (98-107) L Carbon Dioxide Level 31 mEQ/L (20-30) H Anion Gap 15 (5-15) Blood Urea Nitrogen 13 mg/dL (7-23) Creatinine 1.2 mg/dL (0.5-0.9) H Estimat Glomerular Filtration Rate > 60 mL/min (>60) Glucose Level 196 mg/dL (74-106) H Calcium Level 8.5 mg/dL (8.6-10.2) L Magnesium Level 1.3 mg/dL (1.7-2.5) L Total Bilirubin 0.3 mg/dL (0.0-1.2) Aspartate Amino Transf (AST/SGOT) 31 U/L (5-40) Alanine Aminotransferase (ALT/SGPT) 18 U/L (3-33) Alkaline Phosphatase 121 U/L (35-104) H Total Protein 6.9 g/dL (6.6-8.7) Albumin 3.6 g/dL (3.5-5.2) Globulin 3.3 g/dL Albumin/Globulin Ratio 1.0 (1.0-2.7) Lipase 7 U/L (< 60) Acetone Level Positive-small (NEGATIVE) Height (Feet): 5 Height (Inches): 6.00 Weight (Pounds): 130 Medications Current Medications Medications (Trade) Dose Ordered Sig/Mateo Route PRN Reason Start Time Stop Time Status Last Admin Dose Admin Acetaminophen (Tylenol) 650 mg Q4H PRN ORAL T>100.5 04/21/17 16:45 05/21/17 16:44 Al Hydroxide/Mg Hydroxide (Mylanta II) 30 ml Q6H PRN ORAL dyspepsia 04/21/17 16:45 05/21/17 16:44 Albuterol/ Ipratropium (DuoNeb 0.5-3(2.5)mg/3ml) 3 ml Q4H PRN HHN Shortness of Breath 04/21/17 16:45 04/26/17 16:44 Clonidine HCl (Catapres) 0.1 mg Q4H PRN ORAL SBP>160 mmHg 04/21/17 16:45 05/21/17 16:44 04/21/17 17:38 Dextrose (Dextrose 50%) STAT PRN IV Hypoglycemia 04/21/17 16:45 05/21/17 16:44 Heparin Sodium (Porcine) (Heparin 5000 units/ml) 5,000 units EVERY 12 HOURS SUBQ 04/21/17 21:00 05/21/17 20:59 04/21/17 21:31 Insulin Aspart (NovoLOG) BEFORE MEALS AND HS SUBQ 04/21/17 21:00 05/21/17 20:59 04/21/17 21:30 Insulin Aspart 4 units 4 units NOVOTIAC SUBQ 04/22/17 06:30 05/22/17 06:29 Insulin Detemir (Levemir) 8 units BID SUBQ 04/21/17 21:00 05/21/17 20:59 04/21/17 21:30 Ketorolac Tromethamine (Toradol 30mg) 30 mg Q6H PRN IV Moderate Pain (Pain Scale 4-6) 04/21/17 16:45 04/26/17 16:44 Morphine Sulfate (Morphine Sulfate) 2 mg Q4H PRN IVP Severe Pain (Pain Scale 7-10) 04/21/17 16:45 04/28/17 16:44 Nitroglycerin (Ntg) 0.4 mg Q5M X 3 DOSES PRN SL Prn Chest Pain 04/21/17 16:45 05/21/17 16:44 Ondansetron HCl (Zofran) 4 mg Q6H PRN IVP Nausea & Vomiting 04/21/17 16:45 05/21/17 16:44 Polyethylene Glycol (Miralax) 17 gm HSPRN PRN ORAL Constipation 04/21/17 21:00 05/21/17 20:59 Sodium Chloride (Sodium Chloride 1000ml bag) 1,000 ml @ 75 mls/hr [id number] IV 04/21/17 19:00 05/21/17 18:59 Temazepam (Restoril) 15 mg HSPRN PRN ORAL Insomnia 04/21/17 21:00 04/28/17 20:59 04/21/17 21:31 Assessment/Plan Problem List: (1) Intractable nausea and vomiting ICD Codes: R11.2 - Nausea with vomiting, unspecified SNOMED: 292272910, 760885849 (2) Gastroparesis due to DM ICD Codes: E11.43 - 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
[2017-04-22] VITALS: BP 114/77
[2017-04-22 04:00] VITALS: BP 118/85
[2017-04-22] MEDS: NovoLOG Insulin Flexpen SUBQ SCH ×7 (06:55→20:41)
--- NOTE | 2017-04-22 07:18 | General Progress Note ---
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; K31.84 - Gastroparesis SNOMED: 665543044, 07305073 (3) Persistent vomiting ICD Codes: R11.10 - Vomiting, unspecified SNOMED: 011782874 (4) Abdominal pain ICD Codes: R10.9 - Unspecified abdominal pain SNOMED: 89094700 Assessment/Plan Levemir 8 units bid Novolog 4 units ac tid + SSI IVF Subjective ROS Limited/Unobtainable: Yes Allergies: Coded Allergies: No Known Allergies (Verified , NONE, 10/30/05) Subjective she doesn't want to talk readmitted with abdominal pain N/V Objective Last 24 Hour Vital Signs Date Time Temp Pulse Resp B/P Pulse Ox O2 Delivery O2 Flow Rate FiO2 04/22/17 04:00 96.8 77 20 118/85 100 Room Air 04/22/17 00:00 97.8 81 20 114/77 98 Room Air 04/21/17 20:00 97.4 77 20 138/96 100 Room Air 04/21/17 18:18 85 20 172/93 100 Room Air 04/21/17 17:38 176/97 04/21/17 17:33 97.0 79 18 176/97 100 Room Air 04/21/17 17:20 79 18 176/97 100 Room Air 04/21/17 16:00 76 18 164/91 100 Room Air 04/21/17 14:28 80 18 161/92 100 Room Air 04/21/17 12:33 85 18 212/111 100 Room Air 04/21/17 12:22 97.0 04/21/17 10:54 97.0 84 22 174/110 100 Room Air Intake and Output 04/21/17 04/22/17 19:00 07:00 Intake Total 200 ml Balance 200 ml Intake Oral 0 ml IV Total 200 ml Laboratory Tests 04/21/17 12:15: White Blood Count 8.1, Red Blood Count 3.25L, Hemoglobin 10.2L, Hematocrit 30.3L , Mean Corpuscular Volume 93, Mean Corpuscular Hemoglobin 31.4H, Mean Corpuscular Hemoglobin Concent 33.7, Red Cell Distribution Width 14.6, Platelet Count 231, Mean Platelet Volume 7.3, Neutrophils (%) (Auto) 58.3, Lymphocytes (% ) (Auto) 30.6, Monocytes (%) (Auto) 8.6, Eosinophils (%) (Auto) 1.8, Basophils ( %) (Auto) 0.7, Sodium Level 143, Potassium Level 3.2L, Chloride Level 97L, Carbon Dioxide Level 31H, Anion Gap 15, Blood Urea Nitrogen 13, Creatinine 1.2H , Estimat Glomerular Filtration Rate > 60, Glucose Level 196H, Calcium Level 8.5L, Magnesium Level 1.3L, Total Bilirubin 0.3, Aspartate Amino Transf (AST/ SGOT) 31, Alanine Aminotransferase (ALT/SGPT) 18, Alkaline Phosphatase 121H, Total Protein 6.9, Albumin 3.6, Globulin 3.3, Albumin/Globulin Ratio 1.0, Lipase 7, Acetone Level Positive-small Height (Feet): 5 Height (Inches): 6.00 Weight (Pounds): 130 General Appearance: no apparent distress Neck: normal alignment Cardiovascular: normal rate Respiratory/Chest: lungs clear Abdomen: normal bowel sounds Pelvis: normal external exam Objective Current Medications Medications (Trade) Dose Ordered Sig/Mateo Route PRN Reason Start Time Stop Time Status Last Admin Dose Admin Acetaminophen (Tylenol) 650 mg Q4H PRN ORAL T>100.5 04/21/17 16:45 05/21/17 16:44 Al Hydroxide/Mg Hydroxide (Mylanta II) 30 ml Q6H PRN ORAL dyspepsia 04/21/17 16:45 05/21/17 16:44 Albuterol/ Ipratropium (DuoNeb 0.5-3(2.5)mg/3ml) 3 ml Q4H PRN HHN Shortness of Breath 04/21/17 16:45 04/26/17 16:44 Clonidine HCl (Catapres) 0.1 mg Q4H PRN ORAL SBP>160 mmHg 04/21/17 16:45 05/21/17 16:44 04/21/17 17:38 Dextrose (Dextrose 50%) STAT PRN IV Hypoglycemia 04/21/17 16:45 05/21/17 16:44 Heparin Sodium (Porcine) (Heparin 5000 units/ml) 5,000 units EVERY 12 HOURS SUBQ 04/21/17 21:00 05/21/17 20:59 04/21/17 21:31 Insulin Aspart (NovoLOG) BEFORE MEALS AND HS SUBQ 04/21/17 21:00 05/21/17 20:59 04/22/17 06:55 Insulin Aspart (NovoLOG) 4 units NOVOTIAC SUBQ 04/22/17 06:30 05/22/17 06:29 04/22/17 06:55 Insulin Detemir (Levemir) 8 units BID SUBQ 04/21/17 21:00 05/21/17 20:59 04/21/17 21:30 Nitroglycerin (Ntg) 0.4 mg Q5M X 3 DOSES PRN SL Prn Chest Pain 04/21/17 16:45 05/21/17 16:44 Polyethylene Glycol (Miralax) 17 gm HSPRN PRN ORAL Constipation 04/21/17 21:00 05/21/17 20:59 Temazepam (Restoril) 15 mg HSPRN PRN ORAL Insomnia 04/21/17 21:00 04/28/17 20:59 04/21/17 21:31 Item Value Date Time Bedside Blood Glucose 235 mg/dl H 04/22/17 0655 Bedside Blood Glucose 265 mg/dl H 04/21/17 2130 Bedside Blood Glucose 164 mg/dl H 04/21/17 1129 FRANCES BRADLEY April 22, 2017 07:18
[2017-04-22] MEDS ORDERED: Lidocaine 1% Plain 30 ml INJ PRN (08:15)
[2017-04-22] MEDS ORDERED: Sodium Bicarbonate 4% 2.4meq/5ml vial IV PRN (08:15)
[2017-04-22] MEDS ORDERED: Heparin 2000 units/Ns 1000ml IV PRN (08:15)
[2017-04-22] MEDS: Levemir Flexpen SUBQ SCH ×2 (09:00→17:55)
[2017-04-22] MEDS: Heparin 5000 units/ml inj SUBQ SCH ×2 (09:00→20:44)
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
[2017-04-22 11:32] VITALS: BP 120/83
--- NOTE | 2017-04-22 11:58 | Diagnostic Imaging Report ---
Indications: Needs long-term IV access Technique: Ultrasound confirms patent compressible left basilic vein. Total sterile technique, including sterile probe cover and sterile gel, hat, mask,, sterile gown, large sterile drape, and preparation with 2% chlorhexidine utilized. Local anesthesia with 1% lidocaine. Under real-time ultrasound guidance, puncture basilic vein using 21-gauge needle, documented and archived, passage 0.018 guidewire under direct fluoroscopy, which was used to determine appropriate catheter length, exchange for 5 Welsh peel-away sheath. 5 Welsh Bard dual-lumen power PICC cut to 38 cm. It was inserted through the peel-away sheath. Peel-away sheath and guidewire removed. Catheter fixed to the skin. Both catheter ports aspirated and flushed. Patient tolerated procedure well, without immediate complication. Digital radiograph documents satisfactory catheter tip position, at the cavoatrial junction. Total fluoroscopy time 0.2 minutes. Total dose area product 3.1 dGycm2 Impression: Successful placement of left PICC under sonographic and fluoroscopic guidance, as described above.
[2017-04-22 13:36] LABS: BASOPHILS % (AUTO) 0.8 % (0.0-2.0); EOSINOPHILS % (AUTO) 1.8 % (0.0-3.0); LYMPHOCYTES % (AUTO) 34.2 % (20.0-45.0); MEAN CORPUSCULAR HEMOGLOBIN 29.1 PG (27.0-31.0); MEAN CORPUSCULAR HGB CONC 31.5 G/DL (32.0-36.0); MEAN CORPUSCULAR VOLUME 93 FL (80-99); MEAN PLATELET VOLUME 7.2 FL (6.5-10.1); MONOCYTES % (AUTO) 10.5 % (1.0-10.0); NEUTROPHILS % (AUTO) 52.6 % (45.0-75.0); PLATELET COUNT 295 K/UL (150-450); RED BLOOD COUNT 3.57 M/UL (4.20-5.40); RED CELL DISTRIBUTION WIDTH 13.9 % (11.6-14.8); WHITE BLOOD COUNT 7.7 K/UL (4.8-10.8)
[2017-04-22 13:45] LABS: APPEARANCE,URINE SLIGHTLY CLOUDY; KETONES,URINE 1+ (NEGATIVE); LEUKOCYTE ESTERASE ,URINE 3+ (NEGATIVE); NITRITE,URINE NEGATIVE (NEGATIVE); PH,URINE 6.5 (4.5-8.0); PROTEIN,URINE 2+ (NEGATIVE); UROBILINOGEN,URINE NORMAL MG/DL (0.0-1.0)
[2017-04-22 13:54] LABS: BACTERIA,URINE FEW /HPF; SQUAMOUS EPITHELIAL CELL,UR FEW /LPF (NONE/OCC)
[2017-04-22 15:01] LABS: ALANINE AMINOTRANSFERASE 14 U/L (3-33); ALBUMIN/GLOBULIN RATIO 1.1 (1.0-2.7); ANION GAP 12 (5-15); ASPARTATE AMINO TRANSFERASE 21 U/L (5-40); CALCIUM 8.3 mg/dL (8.6-10.2); CARBON DIOXIDE 33 mEQ/L (20-30); CHLORIDE 94 mEQ/L (98-107); CHOLESTEROL 127 mg/dL (< 200); CHOLESTEROL/HDL RATIO 3.8 (3.3-4.4); CREATININE 1.1 mg/dL (0.5-0.9); GLOMERULAR FILTRATION RATE > 60 mL/min (>60); HEMOLYSIS 4; LDL CHOLESTEROL (CALC.) 74 mg/dL (60-99); POTASSIUM 2.9 mEQ/L (3.4-4.9); SODIUM 139 mEQ/L (135-145); TOTAL PROTEIN 6.6 g/dL (6.6-8.7)
[2017-04-22 15:48] VITALS: BP 147/90
--- NOTE | 2017-04-22 16:16 | GI Initial Consult Note ---
History of Present Illness General Date patient seen: April 22, 2017 Time patient seen: 16:09 Reason for Hospitalization: Vomiting Referring physician: ENOCH GONZALEZ Reason for Consultation: ABDOMINAL PAIN Present Illness HPI The patient presents with severe abdominal pain and vomiting. The pain is epigastric presents unable to keep down fluids at this time. Patient has a history of diabetes and frequently presents with diabetic ketoacidosis and hyperglycemia. States it's been taking her insulin recently in her blood sugars have been better. Refuses to answer more questions. The pain is 10/10 burning aching pressure and radiates towards her back. GI CONSULT: HPI as noted above. GI consulted for N/V. Pt seen on floor, awake and alert with no active s/sx of N/V/D. Patient is a readmission here at [place] last week 04/09/17, s/p EGD on 02/08/17 (see report below), presents today with anemia and c/o of abdominal pain/N/V. Tobacco user. Denies ETOH and IVDA. Date of Service: 02/08/17 SURGEON: Jarek Escalante M.D. PROCEDURE: Upper endoscopy with biopsy. INDICATION: Esophagitis lung CT and esophageal wall thickening. SUMMARY FINDINGS: 1. Severe distal esophagitis with some white discharge only suspicious for candidal status post biopsy. 2. Gastritis, status post biopsy. Home Meds Reported Medications Clonidine HCl (Clonidine HCl) 0.1 Mg Tablet, 0.1 MG PO EVERY 4 HOURS, TAB 04/18/17 Amlodipine Besylate (Norvasc) 5 Mg Tablet, 5 MG ORAL Q12HR, TAB 04/18/17 Temazepam* (RESTORIL*) 15 Mg Capsule, 15 MG ORAL BEDTIME Y for Insomnia, CAP 04/18/17 Ranitidine Hcl* (ZANTAC*) 150 Mg Tablet, 150 MG ORAL DAILY, #30 TAB 0 Refills 04/18/17 Polyethylene Glycol 3350* (MIRALAX*) 17 Gm Powd.pack, 17 GM ORAL HS for Constipation, PACKET 04/18/17 Pantoprazole* (PROTONIX*) 40 Mg Tablet.dr, 40 MG ORAL DAILY, TAB 04/18/17 Nitroglycerin (NITROGLYCERIN) 0.4 Mg Tab.subl, 0.4 MG SL, TAB 04/18/17 Insulin Detemir (LEVEMIR) 100 Unit/1 Ml Vial, 8 SUBQ BID, VIAL 04/18/17 Insulin Aspart* (NOVOLOG*) 100 Unit/1 Ml Insuln.pen, 0 SUBQ BEFORE MEALS AND HS , #1 EA 0 Refills 04/18/17 Insulin Aspart* (NOVOLOG*) 100 Unit/1 Ml Insuln.pen, 4 SUBQ, #1 EA 0 Refills 04/18/17 Divalproex Sodium* (DEPAKOTE ER*) 500 Mg Tab.er.24h, 1000 MG ORAL QHS, TAB 04/18/17 Calcium Carbonate (CALCIUM CARBONATE) 500 Mg Tablet, 500 MG PO DAILY, TAB 04/18/17 Al Hydroxide/mg Hydroxide (Mag-Al Plus Suspension) 30 Ml Oral.susp, 30 ML ORAL EVERY 6 HOURS, ML 04/18/17 Acetaminophen (Acetaminophen) 650 Mg/20.3 Ml Solution, 650 MG ORAL EVERY 4 HOURS , ML 0 Refills 04/18/17 Pantoprazole* (PROTONIX*) 40 Mg Tablet.dr, 40 MG ORAL DAILY, TAB 02/13/17 Ranitidine Hcl* (ZANTAC*) 150 Mg Tablet, 150 MG ORAL TWICE A DAY, TAB 02/13/17 Discontinued Reported Medications Insulin Lispro (HUMALOG) 100 Unit/1 Ml Cartridge, 5 SUBQ AC, #1 UNITS 0 Refills 02/18/17 Insulin Glargine (LANTUS) 100 Unit/1 Ml Insuln.pen, 15 SUBQ DAILY, #1 EA 0 Refills 02/18/17 Insulin Lispro (HUMALOG) 100 Unit/1 Ml Cartridge, 0 SUBQ BEFORE MEALS, #1 UNITS 0 Refills 02/18/17 Insulin Glargine (LANTUS) 100 Unit/1 Ml Insuln.pen, 0 SUBQ DAILY, #1 EA 0 Refills 02/18/17 Divalproex Sodium* (DEPAKOTE ER*) 250 Mg Tab.er.24h, 250 MG ORAL BEDTIME for 30 Days, TAB 02/18/17 Divalproex Sodium (DIVALPROEX SODIUM ER) 500 Mg Tab.er.24h, 500 MG PO BEDTIME, TAB 02/18/17 Insulin Detemir (LEVEMIR) 100 Unit/1 Ml Vial, 0 SUBQ BEDTIME, VIAL 02/14/17 Insulin Aspart (Novolog Flexpen) 100 Unit/1 Ml Insuln.pen, SUBQ TID Y for SLIDING SCALE 02/14/17 Sennosides (SENNA) 8.6 Mg Tablet, 8.6 MG PO DAILY Y for Constipation, TAB 02/14/17 Calcium Carbonate (CALCIUM) 600 Mg Tablet, 600 MG PO DAILY, TAB 02/14/17 Thiamine Hcl* (VITAMIN B-1*) 100 Mg Tablet, 100 MG ORAL DAILY 02/14/17 Cholecalciferol (Vitamin D3)* (VITAMIN D*) 1,000 Unit Tablet, 1000 UNIT ORAL DAILY 02/14/17 Amlodipine Besylate (Norvasc) 5 Mg Tablet, 5 MG ORAL DAILY, TAB 02/13/17 Sucralfate* (CARAFATE*) 1 Gm Tablet, 1 GM ORAL FOUR TIMES A DAY, TAB 02/13/17 Med list reviewed/reconciled: Yes Allergies: Coded Allergies: No Known Allergies (Verified , NONE, 10/30/05) Patient History History Provided By: Patient, Medical Record PMH Narrative Last Menstrual Period: UNK Now: No Reviewed Nursing Documentation: PMH: Agreed, PSxH: Agreed Nursing Documentation-PMH Past Medical History: No History, Except For Hx Cardiac Problems: Yes Hx Hypertension: Yes Hx Diabetes: Yes Hx Cancer: No Hx Gastrointestinal Problems: Yes History Of Psychiatric Problem: Yes Hx Neurological Problems: Yes Hx Cerebrovascular Accident: Yes Hx Seizures: Yes Hx Vertigo: Yes Hx Dizziness: Yes Hx Headaches: Yes Hx Weakness: Yes Hx Fatigue: Yes Hx Neurologic Surgery: No Review of Systems All Other Systems: negative except mentioned in HPI Physical Exam Vital Signs Date Time Temp Pulse Resp B/P Pulse Ox O2 Delivery O2 Flow Rate FiO2 04/21/17 10:54 97.0 84 22 174/110 100 Room Air Sp02 EP Interpretation: reviewed Labs Laboratory Tests Test 04/22/17 11:30 04/22/17 12:30 Urine Color Pale yellow Urine Appearance Slightly cloudy Urine pH 6.5 (4.5-8.0) Urine Specific [place] 1.010 (1.005-1.035) Urine Protein 2+ (NEGATIVE) H Urine Glucose (UA) 4+ (NEGATIVE) H Urine Ketones 1+ (NEGATIVE) H Urine Occult Blood 2+ (NEGATIVE) H Urine Nitrite Negative (NEGATIVE) Urine Bilirubin Negative (NEGATIVE) Urine Urobilinogen Normal MG/DL (0.0-1.0) Urine Leukocyte Esterase 3+ (NEGATIVE) H Urine RBC 5-10 /HPF (0 - 2) H Urine WBC 5-10 /HPF (0 - 2) H Urine Squamous Epithelial Cells Few /LPF (NONE/OCC) Urine Bacteria Few /HPF (NONE) Urine HCG, Qualitative Negative White Blood Count 7.7 K/UL (4.8-10.8) Red Blood Count 3.57 M/UL (4.20-5.40) L Hemoglobin 10.4 G/DL (12.0-16.0) L Hematocrit 33.0 % (37.0-47.0) L Mean Corpuscular Volume 93 FL (80-99) Mean Corpuscular Hemoglobin 29.1 PG (27.0-31.0) Mean Corpuscular Hemoglobin Concent 31.5 G/DL (32.0-36.0) L Red Cell Distribution Width 13.9 % (11.6-14.8) Platelet Count 295 K/UL (150-450) Mean Platelet Volume 7.2 FL (6.5-10.1) Neutrophils (%) (Auto) 52.6 % (45.0-75.0) Lymphocytes (%) (Auto) 34.2 % (20.0-45.0) Monocytes (%) (Auto) 10.5 % (1.0-10.0) H Eosinophils (%) (Auto) 1.8 % (0.0-3.0) Basophils (%) (Auto) 0.8 % (0.0-2.0) Sodium Level 139 mEQ/L (135-145) Potassium Level 2.9 mEQ/L (3.4-4.9) L Chloride Level 94 mEQ/L (98-107) L Carbon Dioxide Level 33 mEQ/L (20-30) H Anion Gap 12 (5-15) Blood Urea Nitrogen 15 mg/dL (7-23) Creatinine 1.1 mg/dL (0.5-0.9) H Estimat Glomerular Filtration Rate > 60 mL/min (>60) Glucose Level 82 mg/dL (74-106) # Hemoglobin A1c 9.0 % (< 6.0) H Calcium Level 8.3 mg/dL (8.6-10.2) L Total Bilirubin 0.2 mg/dL (0.0-1.2) Aspartate Amino Transf (AST/SGOT) 21 U/L (5-40) Alanine Aminotransferase (ALT/SGPT) 14 U/L (3-33) Alkaline Phosphatase 111 U/L (35-104) H Total Protein 6.6 g/dL (6.6-8.7) Albumin 3.5 g/dL (3.5-5.2) Globulin 3.1 g/dL Albumin/Globulin Ratio 1.1 (1.0-2.7) Triglycerides Level 99 mg/dL (< 150) Cholesterol Level 127 mg/dL (< 200) LDL Cholesterol 74 mg/dL (60-99) HDL Cholesterol 33 mg/dL (> 60) Cholesterol/HDL Ratio 3.8 (3.3-4.4) Thyroid Stimulating Hormone (TSH) 1.090 uIU/mL (0.300-4.500) General Appearance: no apparent distress Head: normocephalic EENT: normal ENT inspection Neck: supple Respiratory: normal breath sounds, no respiratory distress Cardiovascular: normal rate Gastrointestinal: normal inspection, non tender, soft Genitourinary: no CVA tenderness Musculoskeletal: back normal Neurologic: alert Psychiatric: normal inspection, judgement/insight normal, memory normal Skin: normal inspection, normal color, no rash, warm/dry Lymphatic: normal inspection, no adenopathy Current Medications Current Medications Medications (Trade) Dose Ordered Sig/Mateo Route PRN Reason Start Time Stop Time Status Last Admin Dose Admin Acetaminophen (Tylenol) 650 mg Q4H PRN ORAL T>100.5 04/21/17 16:45 05/21/17 16:44 Al Hydroxide/Mg Hydroxide (Mylanta II) 30 ml Q6H PRN ORAL dyspepsia 04/21/17 16:45 05/21/17 16:44 Albuterol/ Ipratropium (DuoNeb 0.5-3(2.5)mg/3ml) 3 ml Q4H PRN HHN Shortness of Breath 04/21/17 16:45 04/26/17 16:44 Clonidine HCl (Catapres) 0.1 mg Q4H PRN ORAL SBP>160 mmHg 04/21/17 16:45 05/21/17 16:44 04/21/17 17:38 Dextrose (Dextrose 50%) STAT PRN IV Hypoglycemia 04/21/17 16:45 05/21/17 16:44 04/22/17 12:42 Heparin Sodium (Porcine) (Heparin 5000 units/ml) 5,000 units EVERY 12 HOURS SUBQ 04/21/17 21:00 05/21/17 20:59 04/21/17 21:31 Heparin Sodium/ Sodium Chloride (Heparin 2000 units/Ns 1000ml premix) 2,000 unit ONCE PRN IV PICC PLACEMENT 04/22/17 08:15 04/23/17 23:59 Insulin Aspart (NovoLOG) BEFORE MEALS AND HS SUBQ 04/21/17 21:00 05/21/17 20:59 04/22/17 06:55 Insulin Aspart (NovoLOG) 4 units NOVOTIAC SUBQ 04/22/17 06:30 05/22/17 06:29 04/22/17 06:55 Insulin Detemir (Levemir) 8 units BID SUBQ 04/21/17 21:00 05/21/17 20:59 04/21/17 21:30 Lidocaine HCl (Xylocaine 1% 30ml) 30 ml ONCE PRN INJ PICC PLACEMENT 04/22/17 08:15 04/23/17 23:59 Nitroglycerin (Ntg) 0.4 mg Q5M X 3 DOSES PRN SL Prn Chest Pain 04/21/17 16:45 05/21/17 16:44 Polyethylene Glycol (Miralax) 17 gm HSPRN PRN ORAL Constipation 04/21/17 21:00 05/21/17 20:59 Sodium Bicarbonate (Sodium Bicarbonate 4%) 5 ml ONCE PRN IV PICC PLACEMENT 04/22/17 08:15 04/23/17 23:59 Temazepam (Restoril) 15 mg HSPRN PRN ORAL Insomnia 04/21/17 21:00 04/28/17 20:59 04/21/17 21:31 GI: Plan Problems: (1) Hyperglycemia (2) Abdominal pain (3) Diabetes (4) Diabetic gastroparesis (5) esophageal wall thickening (6) Intractable nausea and vomiting (7) Altered mental status (8) Gastroparesis due to DM Plan Date of Service: 02/08/17 PROCEDURE: Upper endoscopy with biopsy. INDICATION: Esophagitis lung CT and esophageal wall thickening. S/P EGD SUMMARY FINDINGS: 1. Severe distal esophagitis with some white discharge only suspicious for candidal status post biopsy. >> negative for fungal organisms. Revealed sloughing inflamed necrotic tissue with neutrophils, see full pathology report. 2. Gastritis, status post biopsy. >> unremarkable HgA1C >> 9.0 elevated triglycerides iron panel unremarkable symptomatic treatment at this time zofran prn ADA diet reglan for GI motility DM mgmt monitor H&H, transfuse prn OB stool fu cont ppi abx fu labs Discussed with Dr. Vickers. Thank you for referring this patient, we will follow. Muriel Serra N.P. April 22, 2017 16:16
[2017-04-22] MEDS: Metoclopramide 10mg/2ml Inj IVP SCH (17:50)
--- NOTE | 2017-04-22 18:43 | Pulmonology Progress Note ---
Assessment/Plan Problems: (1) Intractable nausea and vomiting (2) Gastroparesis due to DM (3) Hyperglycemia (4) Abdominal pain (5) Persistent vomiting Assessment/Plan adjust insulin pain management symptomatic treatment Subjective Interval Events: Bs still flluctuating between 45 and 300 Allergies: Coded Allergies: No Known Allergies (Verified , NONE, 10/30/05) Objective Last 24 Hour Vital Signs Date Time Temp Pulse Resp B/P Pulse Ox O2 Delivery O2 Flow Rate FiO2 04/22/17 15:48 98.0 81 20 147/90 98 Room Air 04/22/17 11:32 97.0 12 120/83 99 Room Air 04/22/17 07:30 97.1 75 16 99 Room Air 04/22/17 04:00 96.8 77 20 118/85 100 Room Air 04/22/17 00:00 97.8 81 20 114/77 98 Room Air 04/21/17 20:00 97.4 77 20 138/96 100 Room Air Intake and Output 04/21/17 04/22/17 19:00 07:00 Intake Total 200 ml Balance 200 ml Intake Oral 0 ml IV Total 200 ml General Appearance: WD/WN HEENT: normocephalic Respiratory/Chest: chest wall non-tender Cardiovascular: normal peripheral pulses, normal rate, regular rhythm Abdomen: normal bowel sounds Genitourinary: normal external genitalia Extremities: no cyanosis Laboratory Tests 04/22/17 11:30: Urine Color Pale yellow, Urine Appearance Slightly cloudy, Urine pH 6.5, Urine Specific [place] 1.010, Urine Protein 2+H, Urine Glucose (UA) 4+H, Urine Ketones 1+H, Urine Occult Blood 2+H, Urine Nitrite Negative, Urine Bilirubin Negative, Urine Urobilinogen Normal, Urine Leukocyte Esterase 3+H, Urine RBC 5- 10H, Urine WBC 5-10H, Urine Squamous Epithelial Cells Few, Urine Bacteria Few, Urine HCG, Qualitative Negative 04/22/17 12:30: White Blood Count 7.7, Red Blood Count 3.57L, Hemoglobin 10.4L, Hematocrit 33.0L , Mean Corpuscular Volume 93, Mean Corpuscular Hemoglobin 29.1, Mean Corpuscular Hemoglobin Concent 31.5L, Red Cell Distribution Width 13.9, Platelet Count 295, Mean Platelet Volume 7.2, Neutrophils (%) (Auto) 52.6, Lymphocytes (%) (Auto) 34.2, Monocytes (%) (Auto) 10.5H, Eosinophils (%) (Auto) 1.8, Basophils (%) (Auto) 0.8, Sodium Level 139, Potassium Level 2.9L, Chloride Level 94L, Carbon Dioxide Level 33H, Anion Gap 12, Blood Urea Nitrogen 15, Creatinine 1.1H, Estimat Glomerular Filtration Rate > 60, Glucose Level 82#, Hemoglobin A1c 9.0H, Calcium Level 8.3L, Total Bilirubin 0.2, Aspartate Amino Transf (AST/SGOT) 21, Alanine Aminotransferase (ALT/SGPT) 14, Alkaline Phosphatase 111H, Total Protein 6.6, Albumin 3.5, Globulin 3.1, Albumin/ Globulin Ratio 1.1, Triglycerides Level 99, Cholesterol Level 127, LDL Cholesterol 74, HDL Cholesterol 33, Cholesterol/HDL Ratio 3.8, Thyroid Stimulating Hormone (TSH) 1.090 Current Medications Medications (Trade) Dose Ordered Sig/Mateo Route PRN Reason Start Time Stop Time Status Last Admin Dose Admin Acetaminophen (Tylenol) 650 mg Q4H PRN ORAL T>100.5 04/21/17 16:45 05/21/17 16:44 Al Hydroxide/Mg Hydroxide (Mylanta II) 30 ml Q6H PRN ORAL dyspepsia 04/21/17 16:45 05/21/17 16:44 Albuterol/ Ipratropium (DuoNeb 0.5-3(2.5)mg/3ml) 3 ml Q4H PRN HHN Shortness of Breath 04/21/17 16:45 04/26/17 16:44 Clonidine HCl (Catapres) 0.1 mg Q4H PRN ORAL SBP>160 mmHg 04/21/17 16:45 05/21/17 16:44 04/21/17 17:38 Dextrose (Dextrose 50%) STAT PRN IV Hypoglycemia 04/21/17 16:45 05/21/17 16:44 04/22/17 12:42 Heparin Sodium (Porcine) (Heparin 5000 units/ml) 5,000 units EVERY 12 HOURS SUBQ 04/21/17 21:00 05/21/17 20:59 04/21/17 21:31 Heparin Sodium/ Sodium Chloride (Heparin 2000 units/Ns 1000ml premix) 2,000 unit ONCE PRN IV PICC PLACEMENT 04/22/17 08:15 04/23/17 23:59 Insulin Aspart (NovoLOG) BEFORE MEALS AND HS SUBQ 04/21/17 21:00 05/21/17 20:59 04/22/17 17:52 Insulin Aspart (NovoLOG) 4 units NOVOTIAC SUBQ 04/22/17 06:30 05/22/17 06:29 04/22/17 17:53 Insulin Detemir (Levemir) 8 units BID SUBQ 04/21/17 21:00 05/21/17 20:59 04/22/17 17:55 Lidocaine HCl (Xylocaine 1% 30ml) 30 ml ONCE PRN INJ PICC PLACEMENT 04/22/17 08:15 04/23/17 23:59 Metoclopramide HCl (Reglan) 5 mg Q8H IVP 04/22/17 17:00 05/22/17 16:59 04/22/17 17:50 Nitroglycerin (Ntg) 0.4 mg Q5M X 3 DOSES PRN SL Prn Chest Pain 04/21/17 16:45 05/21/17 16:44 Ondansetron HCl (Zofran) 4 mg Q6H PRN IVP Nausea & Vomiting 04/22/17 16:15 05/22/17 16:14 Polyethylene Glycol (Miralax) 17 gm HSPRN PRN ORAL Constipation 04/21/17 21:00 05/21/17 20:59 Sodium Bicarbonate (Sodium Bicarbonate 4%) 5 ml ONCE PRN IV PICC PLACEMENT 04/22/17 08:15 04/23/17 23:59 Temazepam (Restoril) 15 mg HSPRN PRN ORAL Insomnia 04/21/17 21:00 04/28/17 20:59 04/21/17 21:31 MILA LAINEZ April 22, 2017 18:43
[2017-04-22] MEDS: KCl 10% 40mEq/30ml liquid ORAL SCH (21:17)
--- NOTE | 2017-04-22 22:00 | History and Physical Report ---
DATE OF ADMISSION: 04/21/2017 TIME SEEN: 1 p.m. CONSULTANTS: 1. Patrice Melissa M.D. 2. Fred Paz M.D. 3. Jarek Vickers M.D. 4. Bertin Alejo M.D. CHIEF COMPLAINT: Abdominal pain, diabetes, hyperglycemia, and encephalopathy. BRIEF HISTORY: This is a 42-year-old female, who lives at home, frequents [employer] quite a bit for noncompliance with her medications. Apparently, did not take her medications again, has abdominal pain with hyperglycemia, came to [facility], diagnosed with the above and admitted for above-mentioned diagnoses. Currently, slightly angry, standing hallway, awaiting her meds, no complaints. PAST MEDICAL HISTORY: Includes diabetes, seizure, hypertension, and encephalopathy. PAST SURGICAL HISTORY: Unknown. MEDICATIONS: Heparin subcutaneously, sodium bicarbonate, Xylocaine, NovoLog, heparin, MiraLax, Restoril, Levemir, DuoNeb, Tylenol, Mylanta, nitroglycerin, dextrose, and Catapres. ALLERGIES: Denies. SOCIAL HISTORY: No smoking, no alcohol, and no intravenous drug abuse. FAMILY HISTORY: Noncontributory. REVIEW OF SYSTEMS: No chest pain. No shortness of breath. No nausea, vomiting, or diarrhea. PHYSICAL EXAMINATION: GENERAL: Slightly angry in group, alert and oriented x2, and in no acute distress. VITAL SIGNS: Temperature is 97 degrees, pulse 77, respirations 12, and blood pressure 120/83. CARDIOVASCULAR: No murmur. LUNGS: Distant and clear. ABDOMEN: Positive bowel sounds. Soft, nontender and nondistended. EXTREMITIES: No cyanosis, clubbing, or edema. LABORATORY DATA: Lab exam shows hemoglobin 10.2, otherwise CBC is normal. BMP show potassium 3.2, chloride 97, bicarbonate 31, creatinine 1.2, and glucose 196. Urine tox is positive for acetone. ASSESSMENT: 1. Diabetes. 2. Hyperglycemia. 3. Abdominal pain. 4. Anemia. 5. Encephalopathy. 6. Seizure. 7. Hypertension. PLAN: 1. Blood pressure and blood sugar control. 2. Seizure control. 3. Dietary followup. 4. Pain followup. 5. Psychiatry treatment. 6. Resume home medications. 7. OT, PT, and dietary evaluation. 8. CBC and BMP in the morning. 9. Dr. Melissa, Dr. Paz, Dr. Vickers, Dr. Alejo, and Dr. White to consult. Brandon Arana D.O. DR: ANGELA JOB#: [id number] CC:
[2017-04-23] VITALS: BP 133/84
[2017-04-23] MEDS: Metoclopramide 10mg/2ml Inj IVP SCH ×3 (00:52→16:59)
[2017-04-23] MEDS: KCl 10% 40mEq/30ml liquid ORAL SCH (01:57)
[2017-04-23 04:00] VITALS: BP 155/90
--- NOTE | 2017-04-23 06:14 | General Progress Note ---
Assessment/Plan Problem List: (1) Hyperglycemia ICD Codes: R73.9 - Hyperglycemia, unspecified SNOMED: 13202564 (2) Diabetic gastroparesis ICD Codes: E11.43 - Type 2 diabetes mellitus with diabetic autonomic (poly) neuropathy; K31.84 - Gastroparesis SNOMED: 125735904, 70521756 (3) Persistent vomiting ICD Codes: R11.10 - Vomiting, unspecified SNOMED: 980280946 (4) Abdominal pain ICD Codes: R10.9 - Unspecified abdominal pain SNOMED: 17038199 Qualifiers: Qualified Codes: R10.13 - Epigastric pain Assessment/Plan Levemir 8 units bid Novolog 4 units ac tid + SSI IVF Subjective ROS Limited/Unobtainable: Yes Allergies: Coded Allergies: No Known Allergies (Verified , NONE, 10/30/05) Subjective events noted Objective Last 24 Hour Vital Signs Date Time Temp Pulse Resp B/P Pulse Ox O2 Delivery O2 Flow Rate FiO2 04/23/17 04:00 98.7 89 20 155/90 99 Room Air 04/23/17 00:00 98.3 87 20 133/84 99 Room Air 04/22/17 15:48 98.0 81 20 147/90 98 Room Air 04/22/17 11:32 97.0 12 120/83 99 Room Air 04/22/17 07:30 97.1 75 16 99 Room Air Intake and Output 04/22/17 04/23/17 19:00 07:00 Intake Total 650 ml Balance 650 ml Intake Oral 650 ml # Voids 3 Laboratory Tests 04/22/17 11:30: Urine Color Pale yellow, Urine Appearance Slightly cloudy, Urine pH 6.5, Urine Specific [place] 1.010, Urine Protein 2+H, Urine Glucose (UA) 4+H, Urine Ketones 1+H, Urine Occult Blood 2+H, Urine Nitrite Negative, Urine Bilirubin Negative, Urine Urobilinogen Normal, Urine Leukocyte Esterase 3+H, Urine RBC 5- 10H, Urine WBC 5-10H, Urine Squamous Epithelial Cells Few, Urine Bacteria Few, Urine HCG, Qualitative Negative 04/22/17 12:30: White Blood Count 7.7, Red Blood Count 3.57L, Hemoglobin 10.4L, Hematocrit 33.0L , Mean Corpuscular Volume 93, Mean Corpuscular Hemoglobin 29.1, Mean Corpuscular Hemoglobin Concent 31.5L, Red Cell Distribution Width 13.9, Platelet Count 295, Mean Platelet Volume 7.2, Neutrophils (%) (Auto) 52.6, Lymphocytes (%) (Auto) 34.2, Monocytes (%) (Auto) 10.5H, Eosinophils (%) (Auto) 1.8, Basophils (%) (Auto) 0.8, Sodium Level 139, Potassium Level 2.9L, Chloride Level 94L, Carbon Dioxide Level 33H, Anion Gap 12, Blood Urea Nitrogen 15, Creatinine 1.1H, Estimat Glomerular Filtration Rate > 60, Glucose Level 82#, Hemoglobin A1c 9.0H, Calcium Level 8.3L, Total Bilirubin 0.2, Aspartate Amino Transf (AST/SGOT) 21, Alanine Aminotransferase (ALT/SGPT) 14, Alkaline Phosphatase 111H, Total Protein 6.6, Albumin 3.5, Globulin 3.1, Albumin/ Globulin Ratio 1.1, Triglycerides Level 99, Cholesterol Level 127, LDL Cholesterol 74, HDL Cholesterol 33, Cholesterol/HDL Ratio 3.8, Thyroid Stimulating Hormone (TSH) 1.090 Height (Feet): 5 Height (Inches): 6.00 Weight (Pounds): 130 General Appearance: lethargic Neck: normal alignment Cardiovascular: normal rate Respiratory/Chest: lungs clear Abdomen: normal bowel sounds Edema: no edema noted Arm (L), no edema noted Arm (R), no edema noted Leg (L), no edema noted Leg (R), no edema noted Pedal (L), no edema noted Pedal (R), no edema noted Generalized Objective Current Medications Medications (Trade) Dose Ordered Sig/Mateo Route PRN Reason Start Time Stop Time Status Last Admin Dose Admin Acetaminophen (Tylenol) 650 mg Q4H PRN ORAL T>100.5 04/21/17 16:45 05/21/17 16:44 Al Hydroxide/Mg Hydroxide (Mylanta II) 30 ml Q6H PRN ORAL dyspepsia 04/21/17 16:45 05/21/17 16:44 Albuterol/ Ipratropium (DuoNeb 0.5-3(2.5)mg/3ml) 3 ml Q4H PRN HHN Shortness of Breath 04/21/17 16:45 04/26/17 16:44 Clonidine HCl (Catapres) 0.1 mg Q4H PRN ORAL SBP>160 mmHg 04/21/17 16:45 05/21/17 16:44 04/21/17 17:38 Dextrose (Dextrose 50%) STAT PRN IV Hypoglycemia 04/21/17 16:45 05/21/17 16:44 04/22/17 12:42 Heparin Sodium (Porcine) (Heparin 5000 units/ml) 5,000 units EVERY 12 HOURS SUBQ 04/21/17 21:00 05/21/17 20:59 04/22/17 20:44 Heparin Sodium/ Sodium Chloride (Heparin 2000 units/Ns 1000ml premix) 2,000 unit ONCE PRN IV PICC PLACEMENT 04/22/17 08:15 04/23/17 23:59 Insulin Aspart (NovoLOG) BEFORE MEALS AND HS SUBQ 04/21/17 21:00 05/21/17 20:59 04/22/17 20:41 Insulin Aspart (NovoLOG) 4 units NOVOTIAC SUBQ 04/22/17 06:30 05/22/17 06:29 04/22/17 17:53 Insulin Detemir (Levemir) 8 units BID SUBQ 04/21/17 21:00 05/21/17 20:59 04/22/17 17:55 Lidocaine HCl (Xylocaine 1% 30ml) 30 ml ONCE PRN INJ PICC PLACEMENT 04/22/17 08:15 04/23/17 23:59 Metoclopramide HCl (Reglan) 5 mg Q8H IVP 04/22/17 17:00 05/22/17 16:59 04/23/17 00:52 Nitroglycerin (Ntg) 0.4 mg Q5M X 3 DOSES PRN SL Prn Chest Pain 04/21/17 16:45 05/21/17 16:44 Ondansetron HCl (Zofran) 4 mg Q6H PRN IVP Nausea & Vomiting 04/22/17 16:15 05/22/17 16:14 Polyethylene Glycol (Miralax) 17 gm HSPRN PRN ORAL Constipation 04/21/17 21:00 05/21/17 20:59 Sodium Bicarbonate (Sodium Bicarbonate 4%) 5 ml ONCE PRN IV PICC PLACEMENT 04/22/17 08:15 04/23/17 23:59 Temazepam (Restoril) 15 mg HSPRN PRN ORAL Insomnia 04/21/17 21:00 04/28/17 20:59 04/22/17 20:24 Item Value Date Time Bedside Blood Glucose 342 mg/dl H 04/22/17 2303 Bedside Blood Glucose 342 mg/dl H 04/22/17 2041 Bedside Blood Glucose 304 mg/dl H 04/22/17 1755 Bedside Blood Glucose 45 mg/dl L 04/22/17 1242 Bedside Blood Glucose 235 mg/dl H 04/22/17 0655 FRANCES BRADLEY April 23, 2017 06:14
[2017-04-23] MEDS: NovoLOG Insulin Flexpen SUBQ SCH ×7 (06:23→21:45)
[2017-04-23 07:08] LABS: BASOPHILS % (AUTO) 0.9 % (0.0-2.0); EOSINOPHILS % (AUTO) 1.3 % (0.0-3.0); LYMPHOCYTES % (AUTO) 33.3 % (20.0-45.0); MEAN CORPUSCULAR HEMOGLOBIN 30.2 PG (27.0-31.0); MEAN CORPUSCULAR HGB CONC 32.4 G/DL (32.0-36.0); MEAN CORPUSCULAR VOLUME 93 FL (80-99); MEAN PLATELET VOLUME 7.5 FL (6.5-10.1); NEUTROPHILS % (AUTO) 56.6 % (45.0-75.0); PLATELET COUNT 235 K/UL (150-450); RED BLOOD COUNT 3.28 M/UL (4.20-5.40); RED CELL DISTRIBUTION WIDTH 14.3 % (11.6-14.8); WHITE BLOOD COUNT 9.4 K/UL (4.8-10.8)
[2017-04-23 07:40] LABS: CALCIUM 8.3 mg/dL (8.6-10.2); CREATININE 1.5 mg/dL (0.5-0.9); GLOMERULAR FILTRATION RATE 46.5 mL/min (>60); POTASSIUM 4.9 mEQ/L (3.4-4.9)
[2017-04-23] MEDS: Heparin 5000 units/ml inj SUBQ SCH ×2 (09:00→21:45)
[2017-04-23] MEDS: Levemir Flexpen SUBQ SCH ×2 (09:10→17:06)
--- NOTE | 2017-04-23 09:50 | GI Progress Note ---
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; K31.84 - Gastroparesis SNOMED: 222991860, 62104299 (2) Abdominal pain ICD Codes: R10.9 - Unspecified abdominal pain SNOMED: 77998179 Qualifiers: Qualified Codes: R10.13 - Epigastric pain (3) Persistent vomiting ICD Codes: R11.10 - Vomiting, unspecified SNOMED: 358387838 (4) esophageal wall thickening (5) Gastroparesis due to DM ICD Codes: E11.43 - Type 2 diabetes mellitus with diabetic autonomic (poly) neuropathy; K31.84 - Gastroparesis SNOMED: 69305636, 130396505 (6) Psychiatric disorder ICD Codes: F99 - Mental disorder, not otherwise specified SNOMED: 71485855, 067433765 Status: stable Status Narrative Discussed with Dr. Vickers. Assessment/Plan S/P EGD SUMMARY FINDINGS 02/08/17: 1. Severe distal esophagitis with some white discharge only suspicious for candidal status post biopsy. >> negative for fungal organisms. Revealed sloughing inflamed necrotic tissue with neutrophils, see full pathology report. 2. Gastritis, status post biopsy. >> unremarkable HgA1C >> 9.0 elevated triglycerides iron panel unremarkable symptomatic treatment at this time zofran prn ADA diet reglan for GI motility DM mgmt monitor H&H, transfuse prn OB stool fu cont ppi abx fu labs Subjective Subjective limited, wants to sleep Objective Last 24 Hour Vital Signs Date Time Temp Pulse Resp B/P Pulse Ox O2 Delivery O2 Flow Rate FiO2 04/23/17 04:00 98.7 89 20 155/90 99 Room Air 04/23/17 00:00 98.3 87 20 133/84 99 Room Air 04/22/17 15:48 98.0 81 20 147/90 98 Room Air 04/22/17 11:32 97.0 12 120/83 99 Room Air Intake and Output 04/22/17 04/23/17 19:00 07:00 Intake Total 650 ml Balance 650 ml Intake Oral 650 ml # Voids 3 Laboratory Tests Test 04/22/17 11:30 04/22/17 12:30 04/23/17 06:00 Urine Color Pale yellow Urine Appearance Slightly cloudy Urine pH 6.5 (4.5-8.0) Urine Specific [place] 1.010 (1.005-1.035) Urine Protein 2+ (NEGATIVE) H Urine Glucose (UA) 4+ (NEGATIVE) H Urine Ketones 1+ (NEGATIVE) H Urine Occult Blood 2+ (NEGATIVE) H Urine Nitrite Negative (NEGATIVE) Urine Bilirubin Negative (NEGATIVE) Urine Urobilinogen Normal MG/DL (0.0-1.0) Urine Leukocyte Esterase 3+ (NEGATIVE) H Urine RBC 5-10 /HPF (0 - 2) H Urine WBC 5-10 /HPF (0 - 2) H Urine Squamous Epithelial Cells Few /LPF (NONE/OCC) Urine Bacteria Few /HPF (NONE) Urine HCG, Qualitative Negative White Blood Count 7.7 K/UL (4.8-10.8) 9.4 K/UL (4.8-10.8) Red Blood Count 3.57 M/UL (4.20-5.40) L 3.28 M/UL (4.20-5.40) L Hemoglobin 10.4 G/DL (12.0-16.0) L 9.9 G/DL (12.0-16.0) L Hematocrit 33.0 % (37.0-47.0) L 30.6 % (37.0-47.0) L Mean Corpuscular Volume 93 FL (80-99) 93 FL (80-99) Mean Corpuscular Hemoglobin 29.1 PG (27.0-31.0) 30.2 PG (27.0-31.0) Mean Corpuscular Hemoglobin Concent 31.5 G/DL (32.0-36.0) L 32.4 G/DL (32.0-36.0) Red Cell Distribution Width 13.9 % (11.6-14.8) 14.3 % (11.6-14.8) Platelet Count 295 K/UL (150-450) 235 K/UL (150-450) Mean Platelet Volume 7.2 FL (6.5-10.1) 7.5 FL (6.5-10.1) Neutrophils (%) (Auto) 52.6 % (45.0-75.0) 56.6 % (45.0-75.0) Lymphocytes (%) (Auto) 34.2 % (20.0-45.0) 33.3 % (20.0-45.0) Monocytes (%) (Auto) 10.5 % (1.0-10.0) H 8.0 % (1.0-10.0) Eosinophils (%) (Auto) 1.8 % (0.0-3.0) 1.3 % (0.0-3.0) Basophils (%) (Auto) 0.8 % (0.0-2.0) 0.9 % (0.0-2.0) Sodium Level 139 mEQ/L (135-145) 137 mEQ/L (135-145) Potassium Level 2.9 mEQ/L (3.4-4.9) L 4.9 mEQ/L (3.4-4.9) # Chloride Level 94 mEQ/L (98-107) L 96 mEQ/L (98-107) L Carbon Dioxide Level 33 mEQ/L (20-30) H 31 mEQ/L (20-30) H Anion Gap 12 (5-15) 10 (5-15) Blood Urea Nitrogen 15 mg/dL (7-23) 16 mg/dL (7-23) Creatinine 1.1 mg/dL (0.5-0.9) H 1.5 mg/dL (0.5-0.9) H Estimat Glomerular Filtration Rate > 60 mL/min (>60) 46.5 mL/min (>60) Glucose Level 82 mg/dL (74-106) # 366 mg/dL (74-106) #H Hemoglobin A1c 9.0 % (< 6.0) H Calcium Level 8.3 mg/dL (8.6-10.2) L 8.3 mg/dL (8.6-10.2) L Total Bilirubin 0.2 mg/dL (0.0-1.2) Aspartate Amino Transf (AST/SGOT) 21 U/L (5-40) Alanine Aminotransferase (ALT/SGPT) 14 U/L (3-33) Alkaline Phosphatase 111 U/L (35-104) H Total Protein 6.6 g/dL (6.6-8.7) Albumin 3.5 g/dL (3.5-5.2) Globulin 3.1 g/dL Albumin/Globulin Ratio 1.1 (1.0-2.7) Triglycerides Level 99 mg/dL (< 150) Cholesterol Level 127 mg/dL (< 200) LDL Cholesterol 74 mg/dL (60-99) HDL Cholesterol 33 mg/dL (> 60) Cholesterol/HDL Ratio 3.8 (3.3-4.4) Thyroid Stimulating Hormone (TSH) 1.090 uIU/mL (0.300-4.500) Height (Feet): 5 Height (Inches): 6.00 Weight (Pounds): 130 General Appearance: no apparent distress, thin Cardiovascular: normal rate Respiratory/Chest: normal breath sounds, no respiratory distress Abdominal Exam: normal bowel sounds, non tender, soft Muriel Serra N.Abhilash April 23, 2017 09:50
--- NOTE | 2017-04-23 14:07 | General Progress Note ---
Assessment/Plan Problem List: (1) Anemia ICD Codes: D64.9 - Anemia, unspecified SNOMED: 181613041 (2) Seizure disorder ICD Codes: G40.909 - Epilepsy, unspecified, not intractable, without status epilepticus SNOMED: 689568943 (3) HTN (hypertension) ICD Codes: I10 - Essential (primary) hypertension SNOMED: 97823323 (4) Hyperglycemia ICD Codes: R73.9 - Hyperglycemia, unspecified SNOMED: 71738503 (5) Gastroparesis due to DM ICD Codes: E11.43 - Type 2 diabetes mellitus with diabetic autonomic (poly) neuropathy; K31.84 - Gastroparesis SNOMED: 06558202, 906767586 (6) Diabetes ICD Codes: E11.9 - Type 2 diabetes mellitus without complications SNOMED: 47274173 Qualifiers: Qualified Codes: E10.8 - Type 1 diabetes mellitus with unspecified complications (7) Abdominal pain ICD Codes: R10.9 - Unspecified abdominal pain SNOMED: 11052414 Qualifiers: Qualified Codes: R10.13 - Epigastric pain (8) Psychiatric disorder ICD Codes: F99 - Mental disorder, not otherwise specified SNOMED: 18352614, 724915883 Status: stable, progressing, tolerating diet Assessment/Plan ot pt diet bs pain control psyc tx cbc bmp am Subjective Constitutional: Reports: weakness Allergies: Coded Allergies: No Known Allergies (Verified , NONE, 10/30/05) All Systems: reviewed and negative except above Subjective calm in bed Objective Last 24 Hour Vital Signs Date Time Temp Pulse Resp B/P Pulse Ox O2 Delivery O2 Flow Rate FiO2 04/23/17 04:00 98.7 89 20 155/90 99 Room Air 04/23/17 00:00 98.3 87 20 133/84 99 Room Air 04/22/17 15:48 98.0 81 20 147/90 98 Room Air Intake and Output 04/22/17 04/23/17 19:00 07:00 Intake Total 650 ml Balance 650 ml Intake Oral 650 ml # Voids 3 Laboratory Tests 04/23/17 06:00: White Blood Count 9.4, Red Blood Count 3.28L, Hemoglobin 9.9L, Hematocrit 30.6L , Mean Corpuscular Volume 93, Mean Corpuscular Hemoglobin 30.2, Mean Corpuscular Hemoglobin Concent 32.4, Red Cell Distribution Width 14.3, Platelet Count 235, Mean Platelet Volume 7.5, Neutrophils (%) (Auto) 56.6, Lymphocytes (% ) (Auto) 33.3, Monocytes (%) (Auto) 8.0, Eosinophils (%) (Auto) 1.3, Basophils ( %) (Auto) 0.9, Sodium Level 137, Potassium Level 4.9#, Chloride Level 96L, Carbon Dioxide Level 31H, Anion Gap 10, Blood Urea Nitrogen 16, Creatinine 1.5H , Estimat Glomerular Filtration Rate 46.5, Glucose Level 366#H, Calcium Level 8.3L Height (Feet): 5 Height (Inches): 6.00 Weight (Pounds): 130 General Appearance: confused EENT: normal ENT inspection Neck: normal alignment Cardiovascular: normal peripheral pulses, normal rate, regular rhythm Respiratory/Chest: chest wall non-tender, lungs clear, normal breath sounds Abdomen: normal bowel sounds, non tender, soft Extremities: normal inspection Edema: no edema noted Arm (L), no edema noted Arm (R), no edema noted Leg (L), no edema noted Leg (R), no edema noted Pedal (L), no edema noted Pedal (R), no edema noted Generalized Neurologic: motor weakness Skin: normal pigmentation, warm/dry ENOCH GONZALEZ April 23, 2017 14:07
--- NOTE | 2017-04-23 16:06 | Pulmonology Progress Note ---
Assessment/Plan Problems: (1) Intractable nausea and vomiting (2) Gastroparesis due to DM (3) Hyperglycemia (4) Abdominal pain (5) Persistent vomiting Assessment/Plan adjust insulin pain management symptomatic treatment Levemir 8 units bid Novolog 4 units ac tid + SSI IVF Subjective ROS Limited/Unobtainable: No Constitutional: Reports: no symptoms HEENT: Repors: no symptoms Respiratory: Reports: no symptoms Cardiovascular: Reports: no symptoms Allergies: Coded Allergies: No Known Allergies (Verified , NONE, 10/30/05) Objective Last 24 Hour Vital Signs Date Time Temp Pulse Resp B/P Pulse Ox O2 Delivery O2 Flow Rate FiO2 04/23/17 04:00 98.7 89 20 155/90 99 Room Air 04/23/17 00:00 98.3 87 20 133/84 99 Room Air Intake and Output 04/22/17 04/23/17 19:00 07:00 Intake Total 650 ml Balance 650 ml Intake Oral 650 ml # Voids 3 General Appearance: WD/WN HEENT: normocephalic, atraumatic Respiratory/Chest: chest wall non-tender, lungs clear Cardiovascular: normal peripheral pulses, normal rate Abdomen: normal bowel sounds, soft, non tender Genitourinary: normal external genitalia Extremities: no cyanosis Neurologic/Psychiatric: debit agent II-XII grossly normal Lymphatic: no neck adenopathy Microbiology Date/Time Source Procedure Growth Status 04/21/17 17:00 Rectal Mucosa VRE Culture - Final NO VANCOMYCIN RESISTANT ENTEROCOCCUS ... Complete Laboratory Tests 04/23/17 06:00: White Blood Count 9.4, Red Blood Count 3.28L, Hemoglobin 9.9L, Hematocrit 30.6L , Mean Corpuscular Volume 93, Mean Corpuscular Hemoglobin 30.2, Mean Corpuscular Hemoglobin Concent 32.4, Red Cell Distribution Width 14.3, Platelet Count 235, Mean Platelet Volume 7.5, Neutrophils (%) (Auto) 56.6, Lymphocytes (% ) (Auto) 33.3, Monocytes (%) (Auto) 8.0, Eosinophils (%) (Auto) 1.3, Basophils ( %) (Auto) 0.9, Sodium Level 137, Potassium Level 4.9#, Chloride Level 96L, Carbon Dioxide Level 31H, Anion Gap 10, Blood Urea Nitrogen 16, Creatinine 1.5H , Estimat Glomerular Filtration Rate 46.5, Glucose Level 366#H, Calcium Level 8.3L Current Medications Medications (Trade) Dose Ordered Sig/Mateo Route PRN Reason Start Time Stop Time Status Last Admin Dose Admin Acetaminophen (Tylenol) 650 mg Q4H PRN ORAL T>100.5 04/21/17 16:45 05/21/17 16:44 Al Hydroxide/Mg Hydroxide (Mylanta II) 30 ml Q6H PRN ORAL dyspepsia 04/21/17 16:45 05/21/17 16:44 Albuterol/ Ipratropium (DuoNeb 0.5-3(2.5)mg/3ml) 3 ml Q4H PRN HHN Shortness of Breath 04/21/17 16:45 04/26/17 16:44 Clonidine HCl (Catapres) 0.1 mg Q4H PRN ORAL SBP>160 mmHg 04/21/17 16:45 05/21/17 16:44 04/21/17 17:38 Dextrose (Dextrose 50%) STAT PRN IV Hypoglycemia 04/21/17 16:45 05/21/17 16:44 04/22/17 12:42 Heparin Sodium (Porcine) (Heparin 5000 units/ml) 5,000 units EVERY 12 HOURS SUBQ 04/21/17 21:00 05/21/17 20:59 04/22/17 20:44 Heparin Sodium/ Sodium Chloride (Heparin 2000 units/Ns 1000ml premix) 2,000 unit ONCE PRN IV PICC PLACEMENT 04/22/17 08:15 04/23/17 23:59 Insulin Aspart (NovoLOG) BEFORE MEALS AND HS SUBQ 04/21/17 21:00 05/21/17 20:59 04/23/17 11:17 Insulin Aspart (NovoLOG) 4 units NOVOTIAC SUBQ 04/22/17 06:30 05/22/17 06:29 04/23/17 11:18 Insulin Detemir (Levemir) 8 units BID SUBQ 04/21/17 21:00 05/21/17 20:59 04/23/17 09:10 Lidocaine HCl (Xylocaine 1% 30ml) 30 ml ONCE PRN INJ PICC PLACEMENT 04/22/17 08:15 04/23/17 23:59 Metoclopramide HCl (Reglan) 5 mg Q8H IVP 04/22/17 17:00 05/22/17 16:59 04/23/17 09:05 Nitroglycerin (Ntg) 0.4 mg Q5M X 3 DOSES PRN SL Prn Chest Pain 04/21/17 16:45 05/21/17 16:44 Ondansetron HCl (Zofran) 4 mg Q6H PRN IVP Nausea & Vomiting 04/22/17 16:15 05/22/17 16:14 Polyethylene Glycol (Miralax) 17 gm HSPRN PRN ORAL Constipation 04/21/17 21:00 05/21/17 20:59 Sodium Bicarbonate (Sodium Bicarbonate 4%) 5 ml ONCE PRN IV PICC PLACEMENT 04/22/17 08:15 04/23/17 23:59 Temazepam (Restoril) 15 mg HSPRN PRN ORAL Insomnia 04/21/17 21:00 04/28/17 20:59 04/22/17 20:24 MILA LAINEZ April 23, 2017 16:06
--- NOTE | 2017-04-23 17:03 | Cardiology Report ---
APPROVED REPORT EKG Measurement Heart [id number] IA [id number] [id number] Normal sinus rhythm Left axis deviation Possible Anterior infarct, age undetermined Abnormal ECG
[2017-04-23 20:00] VITALS: BP 146/104
[2017-04-24] VITALS: BP 124/74
[2017-04-24] MEDS: Metoclopramide 10mg/2ml Inj IVP SCH ×2 (01:25→08:41)
[2017-04-24 04:00] VITALS: BP 128/78
[2017-04-24] MEDS: NovoLOG Insulin Flexpen SUBQ SCH ×4 (05:36→11:48)
[2017-04-24 05:40] LABS: BASOPHILS % (AUTO) 0.6 % (0.0-2.0); EOSINOPHILS % (AUTO) 1.1 % (0.0-3.0); LYMPHOCYTES % (AUTO) 36.3 % (20.0-45.0); MEAN CORPUSCULAR HEMOGLOBIN 29.8 PG (27.0-31.0); MEAN CORPUSCULAR HGB CONC 32.4 G/DL (32.0-36.0); MEAN CORPUSCULAR VOLUME 92 FL (80-99); MONOCYTES % (AUTO) 8.8 % (1.0-10.0); NEUTROPHILS % (AUTO) 53.2 % (45.0-75.0); PLATELET COUNT 186 K/UL (150-450); RED BLOOD COUNT 3.06 M/UL (4.20-5.40); RED CELL DISTRIBUTION WIDTH 13.8 % (11.6-14.8); WHITE BLOOD COUNT 9.7 K/UL (4.8-10.8)
[2017-04-24 06:16] LABS: CALCIUM 8.6 mg/dL (8.6-10.2); CREATININE 1.3 mg/dL (0.5-0.9); GLOMERULAR FILTRATION RATE 54.9 mL/min (>60); MAGNESIUM 1.6 mg/dL (1.7-2.5); POTASSIUM 4.6 mEQ/L (3.4-4.9)
[2017-04-24 08:00] VITALS: BP 135/84
[2017-04-24] MEDS: Heparin 5000 units/ml inj SUBQ SCH (08:40)
[2017-04-24] MEDS: Levemir Flexpen SUBQ SCH (08:45)
--- NOTE | 2017-04-24 10:10 | GI Progress Note ---
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 Vickers. Assessment/Plan S/P EGD SUMMARY FINDINGS 02/08/17: 1. Severe distal esophagitis with some white discharge only suspicious for candidal status post biopsy. >> negative for fungal organisms. Revealed sloughing inflamed necrotic tissue with neutrophils, see full pathology report. 2. Gastritis, status post biopsy. >> unremarkable HgA1C >> 9.0 elevated triglycerides iron panel unremarkable symptomatic treatment at this time zofran prn ADA diet reglan for GI motility DM mgmt electrolyte replacement monitor H&H, transfuse prn OB stool fu cont ppi abx fu labs Subjective Subjective limited, wants to sleep Objective Last 24 Hour Vital Signs Date Time Temp Pulse Resp B/P Pulse Ox O2 Delivery O2 Flow Rate FiO2 04/24/17 04:00 97.5 82 18 128/78 100 Room Air 04/24/17 00:00 97.9 86 18 124/74 100 Room Air 04/23/17 20:00 98.1 86 19 146/104 99 Room Air Intake and Output 04/23/17 04/24/17 19:00 07:00 Intake Total 440 ml 500 ml Balance 440 ml 500 ml Intake Oral 240 ml 500 ml IV Total 200 ml # Voids 1 Laboratory Tests Test 04/24/17 04:30 White Blood Count 9.7 K/UL (4.8-10.8) Red Blood Count 3.06 M/UL (4.20-5.40) L Hemoglobin 9.1 G/DL (12.0-16.0) L Hematocrit 28.2 % (37.0-47.0) L Mean Corpuscular Volume 92 FL (80-99) Mean Corpuscular Hemoglobin 29.8 PG (27.0-31.0) Mean Corpuscular Hemoglobin Concent 32.4 G/DL (32.0-36.0) Red Cell Distribution Width 13.8 % (11.6-14.8) Platelet Count 186 K/UL (150-450) Mean Platelet Volume 8.0 FL (6.5-10.1) Neutrophils (%) (Auto) 53.2 % (45.0-75.0) Lymphocytes (%) (Auto) 36.3 % (20.0-45.0) Monocytes (%) (Auto) 8.8 % (1.0-10.0) Eosinophils (%) (Auto) 1.1 % (0.0-3.0) Basophils (%) (Auto) 0.6 % (0.0-2.0) Sodium Level 135 mEQ/L (135-145) Potassium Level 4.6 mEQ/L (3.4-4.9) Chloride Level 95 mEQ/L (98-107) L Carbon Dioxide Level 29 mEQ/L (20-30) Anion Gap 11 (5-15) Blood Urea Nitrogen 14 mg/dL (7-23) Creatinine 1.3 mg/dL (0.5-0.9) H Estimat Glomerular Filtration Rate 54.9 mL/min (>60) Glucose Level 277 mg/dL (74-106) H Calcium Level 8.6 mg/dL (8.6-10.2) Magnesium Level 1.6 mg/dL (1.7-2.5) L Height (Feet): 5 Height (Inches): 6.00 Weight (Pounds): 130 General Appearance: no apparent distress, alert Cardiovascular: normal rate Respiratory/Chest: no respiratory distress Abdominal Exam: normal bowel sounds, non tender, soft Muriel Serra N.Abhilash Apr 24, 2017 10:10
[2017-04-24] MEDS: Magnesium Oxide 400mg tab ORAL SCH ×2 (10:51→14:43)
[2017-04-24 12:00] VITALS: BP 146/104
--- NOTE | 2017-04-24 13:35 | General Progress Note ---
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; K31.84 - Gastroparesis SNOMED: 75812434, 810118579 (6) Diabetes ICD Codes: E11.9 - Type 2 diabetes mellitus without complications SNOMED: 45126115 Qualifiers: Qualified Codes: E10.8 - Type 1 diabetes mellitus with unspecified complications (7) Abdominal pain ICD Codes: R10.9 - Unspecified abdominal pain SNOMED: 70150785 Qualifiers: Qualified Codes: R10.13 - Epigastric pain (8) Psychiatric disorder ICD Codes: F99 - Mental disorder, not otherwise specified SNOMED: 63070845, 491006957 Status: stable, progressing, tolerating diet Assessment/Plan ot pt diet bs pain control psyc tx cbc bmp am dc if endo gi clear Subjective Constitutional: Reports: weakness Allergies: Coded Allergies: No Known Allergies (Verified , NONE, 10/30/05) All Systems: reviewed and negative except above Subjective calm in bed Objective Last 24 Hour Vital Signs Date Time Temp Pulse Resp B/P Pulse Ox O2 Delivery O2 Flow Rate FiO2 04/24/17 12:00 98.4 90 18 146/104 100 Room Air 04/24/17 08:00 97.5 89 18 135/84 100 Room Air 04/24/17 04:00 97.5 82 18 128/78 100 Room Air 04/24/17 00:00 97.9 86 18 124/74 100 Room Air 04/23/17 20:00 98.1 86 19 146/104 99 Room Air Intake and Output 04/23/17 04/24/17 19:00 07:00 Intake Total 440 ml 500 ml Balance 440 ml 500 ml Intake Oral 240 ml 500 ml IV Total 200 ml # Voids 1 Laboratory Tests 04/24/17 04:30: White Blood Count 9.7, Red Blood Count 3.06L, Hemoglobin 9.1L, Hematocrit 28.2L , Mean Corpuscular Volume 92, Mean Corpuscular Hemoglobin 29.8, Mean Corpuscular Hemoglobin Concent 32.4, Red Cell Distribution Width 13.8, Platelet Count 186, Mean Platelet Volume 8.0, Neutrophils (%) (Auto) 53.2, Lymphocytes (% ) (Auto) 36.3, Monocytes (%) (Auto) 8.8, Eosinophils (%) (Auto) 1.1, Basophils ( %) (Auto) 0.6, Sodium Level 135, Potassium Level 4.6, Chloride Level 95L, Carbon Dioxide Level 29, Anion Gap 11, Blood Urea Nitrogen 14, Creatinine 1.3H, Estimat Glomerular Filtration Rate 54.9, Glucose Level 277H, Calcium Level 8.6, Magnesium Level 1.6L Height (Feet): 5 Height (Inches): 6.00 Weight (Pounds): 130 General Appearance: confused EENT: normal ENT inspection Neck: normal alignment Cardiovascular: normal peripheral pulses, normal rate, regular rhythm Respiratory/Chest: chest wall non-tender, lungs clear, normal breath sounds Abdomen: normal bowel sounds, non tender, soft Extremities: normal inspection Edema: no edema noted Arm (L), no edema noted Arm (R), no edema noted Leg (L), no edema noted Leg (R), no edema noted Pedal (L), no edema noted Pedal (R), no edema noted Generalized Neurologic: motor weakness Skin: normal pigmentation, warm/dry ENOCH GONZALEZ Apr 24, 2017 13:35
[2017-04-24] MEDS ORDERED: HEPARIN2000 UNIT/ SUBQ (15:06)
[2017-04-24] MEDS ORDERED: MAG-OX 400400 MG ORAL (15:06)
[2017-04-24] MEDS ORDERED: ZOFRAN 4 MG4 MG/2 ML IVP (15:07)
[2017-04-24] MEDS ORDERED: TEMAZEPAM15 MG ORAL (15:08)
--- NOTE | 2017-04-24 16:11 | Pulmonology Progress Note ---
Assessment/Plan Problems: (1) Intractable nausea and vomiting (2) Gastroparesis due to DM (3) Hyperglycemia (4) Abdominal pain (5) Persistent vomiting Assessment/Plan adjust insulin pain management symptomatic treatment Levemir 8 units bid Novolog 4 units ac tid + SSI improving dc home Subjective ROS Limited/Unobtainable: No Allergies: Coded Allergies: No Known Allergies (Verified , NONE, 10/30/05) Objective Last 24 Hour Vital Signs Date Time Temp Pulse Resp B/P Pulse Ox O2 Delivery O2 Flow Rate FiO2 04/24/17 12:00 98.4 90 18 146/104 100 Room Air 04/24/17 08:00 97.5 89 18 135/84 100 Room Air 04/24/17 04:00 97.5 82 18 128/78 100 Room Air 04/24/17 00:00 97.9 86 18 124/74 100 Room Air 04/23/17 20:00 98.1 86 19 146/104 99 Room Air Intake and Output 04/23/17 04/24/17 19:00 07:00 Intake Total 440 ml 500 ml Balance 440 ml 500 ml Intake Oral 240 ml 500 ml IV Total 200 ml # Voids 1 General Appearance: WD/WN HEENT: normocephalic Respiratory/Chest: chest wall non-tender, lungs clear Cardiovascular: normal peripheral pulses, normal rate Abdomen: normal bowel sounds, soft, non tender Extremities: no cyanosis Skin: no rash Microbiology Date/Time Source Procedure Growth Status 04/21/17 17:00 Rectal Mucosa VRE Culture - Final NO VANCOMYCIN RESISTANT ENTEROCOCCUS ... Complete Laboratory Tests 04/24/17 04:30: White Blood Count 9.7, Red Blood Count 3.06L, Hemoglobin 9.1L, Hematocrit 28.2L , Mean Corpuscular Volume 92, Mean Corpuscular Hemoglobin 29.8, Mean Corpuscular Hemoglobin Concent 32.4, Red Cell Distribution Width 13.8, Platelet Count 186, Mean Platelet Volume 8.0, Neutrophils (%) (Auto) 53.2, Lymphocytes (% ) (Auto) 36.3, Monocytes (%) (Auto) 8.8, Eosinophils (%) (Auto) 1.1, Basophils ( %) (Auto) 0.6, Sodium Level 135, Potassium Level 4.6, Chloride Level 95L, Carbon Dioxide Level 29, Anion Gap 11, Blood Urea Nitrogen 14, Creatinine 1.3H, Estimat Glomerular Filtration Rate 54.9, Glucose Level 277H, Calcium Level 8.6, Magnesium Level 1.6L MILA LAINEZ Apr 24, 2017 16:11
--- NOTE | 2017-04-25 11:19 | Discharge Summary ---
Discharge Summary Hospital Course Date of Admission April 21, 2017 at 15:53 Date of Discharge Apr 24, 2017 at 15:10 Admitting Diagnosis abdominal pain (diabetic gastroparesis) ANDI Amaya Wallis is a 42 year old female who was admitted on April 21, 2017 at 15: 53 for Abdominal Pain,Diabetic Gastroparesis Hospital Course [id number] Discharge Discharge Disposition Patient was discharged to Home with Discharge Diagnoses: Estefania Balderas NP Apr 25, 2017 11:19
== END 2017-04-24 15:10 | disposition home health service (06) | DRG 48 ==
LOC: EDBD 11:03 → EMR 12:08 → EDBEDREQ 15:37 → 4W 15:53 → EDBEDREQ 16:13
PROC: 02HV33Z Insertion of Infusion Device into Superior Vena Cava, Percutaneous Approach (ICD-10-PCS; principal; 2017-04-22)
PROC: B548ZZA Ultrasonography of Superior Vena Cava, Guidance (ICD-10-PCS; 2017-04-22)
DX: E11.43 Type 2 diabetes mellitus with diabetic autonomic (poly)neuropathy (principal); I10 Essential (primary) hypertension; K31.84 Gastroparesis; Z91.14 Patient's other noncompliance with medication regimen; K20.9 Esophagitis, unspecified; K29.70 Gastritis, unspecified, without bleeding; G40.909 Epilepsy, unspecified, not intractable, without status epilepticus; D64.9 Anemia, unspecified; Z79.4 Long term (current) use of insulin
CPT/HCPCS: 36415; 36569; 71010; 76937; 80048; 80053; 80061; 81003; 81025; 82009; 82962; 83036; 83690; 83735; 84443; 85025; 87081; 93005; 97803; J1815; J2405; J2765; J7620; S5561

== ENCOUNTER 2017-04-29 19:31 | Inpatient (IN) | payer MEDICAID, OTHER ==
[~2017-04-29] VITALS: Ht 167.6 cm; Wt 54.4 kg
[~2017-04-29 19:31] MED LIST changes: +HEPARIN2000 UNIT/ SUBQ; +MAG-OX 400400 MG ORAL; +TEMAZEPAM15 MG ORAL; +ZOFRAN 4 MG4 MG/2 ML IVP
[2017-04-29] MEDS ORDERED: Famotidine 20 MG/ 2ML VIAL IVP ONE (20:15)
[2017-04-29] MEDS ORDERED: Morphine Sulfate 4mg/ml Inj IVP ONE (20:15)
[2017-04-29 21:01] LABS: BASOPHILS % (AUTO) 0.8 % (0.0-2.0); EOSINOPHILS % (AUTO) 0.6 % (0.0-3.0); LYMPHOCYTES % (AUTO) 17.3 % (20.0-45.0); MEAN CORPUSCULAR HEMOGLOBIN 31.3 PG (27.0-31.0); MEAN CORPUSCULAR VOLUME 92 FL (80-99); MEAN PLATELET VOLUME 7.3 FL (6.5-10.1); MONOCYTES % (AUTO) 7.7 % (1.0-10.0); NEUTROPHILS % (AUTO) 73.5 % (45.0-75.0); PLATELET COUNT 359 K/UL (150-450); RED BLOOD COUNT 3.57 M/UL (4.20-5.40); RED CELL DISTRIBUTION WIDTH 14.1 % (11.6-14.8)
[2017-04-29] MEDS ORDERED: Morphine Sulfate 2mg/ml Inj IVP PRN (21:15)
[2017-04-29] MEDS ORDERED: DuoNeb 0.5-3(2.5)mg/3ml neb HHN PRN (21:15)
[2017-04-29] MEDS ORDERED: Miralax 17gm pkt ORAL PRN (21:15)
[2017-04-29] MEDS ORDERED: Nitroglycerin Subl 0.4mg tab (Bottle Of 25) SL PRN (21:15)
[2017-04-29] MEDS ORDERED: Mylanta II UD 30ml ORAL PRN (21:15)
[2017-04-29] MEDS ORDERED: Ketorolac 30mg Inj IV PRN (21:15)
[2017-04-29 21:16] LABS: ALBUMIN/GLOBULIN RATIO 1.1 (1.0-2.7); CALCIUM 9.7 mg/dL (8.6-10.2); CREATININE 1.3 mg/dL (0.5-0.9); GLOMERULAR FILTRATION RATE 54.9 mL/min (>60)
[2017-04-29 21:22] VITALS: BP 179/109
[2017-04-29 21:34] LABS: APPEARANCE,URINE CLEAR; KETONES,URINE 3+ (NEGATIVE); LEUKOCYTE ESTERASE ,URINE NEGATIVE (NEGATIVE); NITRITE,URINE NEGATIVE (NEGATIVE); PH,URINE 7 (4.5-8.0); PROTEIN,URINE 3+ (NEGATIVE); UROBILINOGEN,URINE NORMAL MG/DL (0.0-1.0)
[2017-04-29 21:40] LABS: RBC,URINE 0-2 /HPF (0 - 2); SQUAMOUS EPITHELIAL CELL,UR OCCASIONAL /LPF (NONE/OCC); WBC,URINE 0-2 /HPF (0 - 2)
--- NOTE | 2017-04-29 22:08 | Emergency Room Report ---
History of Present Illness General Chief Complaint: Abdominal Pain Source: Patient Present Illness HPI 42-year-old female presents ED complaining abdominal pain and nausea and vomiting x1 day. Patient states she is a diabetic. Patient is well-known to [facility] [place]-has history of diabetes poorly controlled and gastroparesis. Patient states she was recently discharged from the hospital. Patient states 10 out of 10 epigastric pain, sharp, nonradiating. With associated vomiting. Denies fevers chills. Denies chest pain or shortness of breath. No other aggravating relieving factors. Denies any other associated symptoms Allergies: Coded Allergies: No Known Allergies (Verified , NONE, 04/29/17) Patient History Past Medical History: DM, HTN Past Surgical History: none Pertinent Family History: none Social History: Denies: alcohol use, drug use, smoking Last Menstrual Period: march 2017 Now: No Immunizations: UTD Reviewed Nursing Documentation: PMH: Agreed, PSxH: Agreed Nursing Documentation-PMH Past Medical History: No History, Except For Hx Cardiac Problems: Yes Hx Hypertension: Yes Hx Diabetes: Yes - pancretitis Hx Cancer: No Hx Gastrointestinal Problems: Yes Hx Neurological Problems: Yes Hx Cerebrovascular Accident: Yes Hx Seizures: Yes Hx Vertigo: Yes Hx Dizziness: Yes Hx Headaches: Yes Hx Weakness: Yes Hx Fatigue: Yes Hx Neurologic Surgery: No Review of Systems All Other Systems: negative except mentioned in HPI Physical Exam Vital Signs Date Time Temp Pulse Resp B/P Pulse Ox O2 Delivery O2 Flow Rate FiO2 04/29/17 19:28 98.2 98 18 155/104 97 Room Air Sp02 EP Interpretation: reviewed, normal General Appearance: no apparent distress, alert, GCS 15, non-toxic Head: normocephalic, atraumatic Eyes: bilateral eye PERRL, bilateral eye normal inspection ENT: hearing grossly normal, normal pharynx, no angioedema, normal voice Neck: full range of motion, supple/symm/no masses Respiratory: chest non-tender, lungs clear, normal breath sounds, speaking full sentences Cardiovascular #1: regular rate, rhythm, no edema Cardiovascular #2: 2+ carotid (R), 2+ carotid (L), 2+ radial (R), 2+ radial (L) , 2+ dorsalis pedis (R), 2+ dorsalis pedis (L) Gastrointestinal: normal bowel sounds, soft, non-distended, no guarding, no rebound, tenderness - epigastric Rectal: deferred Genitourinary: normal inspection, no CVA tenderness Musculoskeletal: back normal, gait/station normal, normal range of motion, non- tender Neurologic: alert, oriented x3, responsive, motor strength/tone normal, sensory intact, speech normal Psychiatric: judgement/insight normal, memory normal, mood/affect normal, no suicidal/homicidal ideation Reflexes: 3+ bicep (R), 3+ bicep (L), 3+ tricep (R), 3+ tricep (L), 3+ knee (R) , 3+ knee (L) Skin: normal color, no rash, warm/dry, well hydrated Lymphatic: no adenopathy Medical Decision Making Diagnostic Impression: Primary Impression: Gastroparesis due to DM Additional Impression: Hyperglycemia ER Course Hospital Course 42-year-old female presents to ED with elevated Accu-Chek, epigastric pain and vomiting Differential diagnoses include: ETOH/drug ingestion, sepsis, DKA Clinical course Patient placed on stretcher. On monitoring manager. After initial history and physical I ordered labs, IV fluids, pain medications, zofran, pepcid Patient is well-known for her difficult IV access.; I placed an external jugular IV Labs-glucose 297, anion gap mildly elevated, bicarbonate ok, creatinine elevated. ketones + Case discussed with Dr. Arana and he agreed to accept the patient to his service for further care and support i. I feel this is a highly complex case requiring extensive working including EKG/Rhythm strip, Xray/CT/US, Blood/urine lab work, repeat exams while in ED, and administration of strong opiates/narcotics for pain control, admission to hospital or close patient follow up. diagnosis - hyperglycemia, gastroparesis due to DM admitted to floor in serious condition Labs Test 04/29/17 20:50 04/29/17 21:15 White Blood Count 17.0 K/UL (4.8-10.8) Red Blood Count 3.57 M/UL (4.20-5.40) Hemoglobin 11.2 G/DL (12.0-16.0) Hematocrit 32.8 % (37.0-47.0) Mean Corpuscular Volume 92 FL (80-99) Mean Corpuscular Hemoglobin 31.3 PG (27.0-31.0) Mean Corpuscular Hemoglobin Concent 34.0 G/DL (32.0-36.0) Red Cell Distribution Width 14.1 % (11.6-14.8) Platelet Count 359 K/UL (150-450) Mean Platelet Volume 7.3 FL (6.5-10.1) Neutrophils (%) (Auto) 73.5 % (45.0-75.0) Lymphocytes (%) (Auto) 17.3 % (20.0-45.0) Monocytes (%) (Auto) 7.7 % (1.0-10.0) Eosinophils (%) (Auto) 0.6 % (0.0-3.0) Basophils (%) (Auto) 0.8 % (0.0-2.0) Sodium Level 135 mEQ/L (135-145) Potassium Level 4.0 mEQ/L (3.4-4.9) Chloride Level 90 mEQ/L (98-107) Carbon Dioxide Level 22 mEQ/L (20-30) Anion Gap 23 (5-15) Blood Urea Nitrogen 14 mg/dL (7-23) Creatinine 1.3 mg/dL (0.5-0.9) Estimat Glomerular Filtration Rate 54.9 mL/min (>60) Glucose Level 297 mg/dL (74-106) Calcium Level 9.7 mg/dL (8.6-10.2) Total Bilirubin 0.5 mg/dL (0.0-1.2) Aspartate Amino Transf (AST/SGOT) 24 U/L (5-40) Alanine Aminotransferase (ALT/SGPT) 14 U/L (3-33) Alkaline Phosphatase 143 U/L (35-104) Total Protein 8.0 g/dL (6.6-8.7) Albumin 4.2 g/dL (3.5-5.2) Globulin 3.8 g/dL Albumin/Globulin Ratio 1.1 (1.0-2.7) Lipase 8 U/L (< 60) Acetone Level Positive-small (NEGATIVE) Urine Color Pale yellow Urine Appearance Clear Urine pH 7 (4.5-8.0) Urine Specific [place] 1.010 (1.005-1.035) Urine Protein 3+ (NEGATIVE) Urine Glucose (UA) 4+ (NEGATIVE) Urine Ketones 3+ (NEGATIVE) Urine Occult Blood 2+ (NEGATIVE) Urine Nitrite Negative (NEGATIVE) Urine Bilirubin Negative (NEGATIVE) Urine Urobilinogen Normal MG/DL (0.0-1.0) Urine Leukocyte Esterase Negative (NEGATIVE) Urine RBC 0-2 /HPF (0 - 2) Urine WBC 0-2 /HPF (0 - 2) Urine Squamous Epithelial Cells Occasional /LPF Urine Bacteria None /HPF (NONE) Last Vital Signs Date Time Temp Pulse Resp B/P Pulse Ox O2 Delivery O2 Flow Rate FiO2 04/29/17 21:22 99.1 83 22 179/109 100 Room Air Status: improved Disposition: ADMITTED INPATIENT Condition: Serious NAHOMI DONALDSON M.D. Apr 29, 2017 22:08
[2017-04-29 23:21] VITALS: BP 142/73
[2017-04-30 00:22] VITALS: BP 131/71
[2017-04-30 01:00] VITALS: BP 153/77
[2017-04-30] MEDS: NovoLOG Insulin Flexpen SUBQ SCH ×4 (06:17→21:00)
[2017-04-30 08:00] VITALS: BP 151/98
[2017-04-30] MEDS: Heparin 5000 units/ml inj SUBQ SCH ×2 (09:19→21:14)
[2017-04-30 12:00] VITALS: BP 172/105
--- NOTE | 2017-04-30 15:30 | Infectious Diseases Prog Note ---
Assessment/Plan Problems: (1) Leukocytosis Assessment & Plan: rule out sepsis, VS dehydration related , will send blood culture and check CXR to rule out pneumonia (2) DKA (diabetic ketoacidoses) Assessment & Plan: recommend insulin treatment to achieve better glycemic control (3) CIERA (acute kidney injury) Assessment & Plan: suspect due to dehydration, continue IVF, monitor urine output (4) Intractable nausea and vomiting Assessment & Plan: due to DKA, continue supportive care (5) Diabetes Assessment & Plan: poorly controlled, recommend tight glycemic control to keep blood glucose between 80-120 Subjective Allergies: Coded Allergies: No Known Allergies (Verified , NONE, 04/29/17) Objective Vital Signs Last 24 Hour Vital Signs Date Time Temp Pulse Resp B/P Pulse Ox O2 Delivery O2 Flow Rate FiO2 04/30/17 12:28 161/77 04/30/17 12:00 97.0 93 20 172/105 100 Room Air 04/30/17 09:13 89 153/77 04/30/17 08:00 97.9 95 20 151/98 99 Room Air 04/30/17 06:34 88 18 Room Air 04/30/17 06:19 98.9 04/30/17 01:00 98.9 89 20 153/77 99 Room Air 04/30/17 00:36 90 14 131/71 96 Room Air 04/30/17 00:22 90 14 131/71 96 Room Air 04/29/17 23:21 99.0 93 24 142/73 99 Room Air 04/29/17 22:22 173/101 04/29/17 21:22 99.1 83 22 179/109 100 Room Air 04/29/17 19:28 98.2 98 18 155/104 97 Room Air Height (Feet): 5 Height (Inches): 6.00 Weight (Pounds): 120 Laboratory Tests Test 04/29/17 20:50 04/29/17 21:15 White Blood Count 17.0 K/UL (4.8-10.8) H Red Blood Count 3.57 M/UL (4.20-5.40) L Hemoglobin 11.2 G/DL (12.0-16.0) L Hematocrit 32.8 % (37.0-47.0) L Mean Corpuscular Volume 92 FL (80-99) Mean Corpuscular Hemoglobin 31.3 PG (27.0-31.0) H Mean Corpuscular Hemoglobin Concent 34.0 G/DL (32.0-36.0) Red Cell Distribution Width 14.1 % (11.6-14.8) Platelet Count 359 K/UL (150-450) Mean Platelet Volume 7.3 FL (6.5-10.1) Neutrophils (%) (Auto) 73.5 % (45.0-75.0) Lymphocytes (%) (Auto) 17.3 % (20.0-45.0) L Monocytes (%) (Auto) 7.7 % (1.0-10.0) Eosinophils (%) (Auto) 0.6 % (0.0-3.0) Basophils (%) (Auto) 0.8 % (0.0-2.0) Sodium Level 135 mEQ/L (135-145) Potassium Level 4.0 mEQ/L (3.4-4.9) Chloride Level 90 mEQ/L (98-107) L Carbon Dioxide Level 22 mEQ/L (20-30) Anion Gap 23 (5-15) H Blood Urea Nitrogen 14 mg/dL (7-23) Creatinine 1.3 mg/dL (0.5-0.9) H Estimat Glomerular Filtration Rate 54.9 mL/min (>60) Glucose Level 297 mg/dL (74-106) H Calcium Level 9.7 mg/dL (8.6-10.2) Total Bilirubin 0.5 mg/dL (0.0-1.2) Aspartate Amino Transf (AST/SGOT) 24 U/L (5-40) Alanine Aminotransferase (ALT/SGPT) 14 U/L (3-33) Alkaline Phosphatase 143 U/L (35-104) H Total Protein 8.0 g/dL (6.6-8.7) Albumin 4.2 g/dL (3.5-5.2) Globulin 3.8 g/dL Albumin/Globulin Ratio 1.1 (1.0-2.7) Lipase 8 U/L (< 60) Acetone Level Positive-small (NEGATIVE) Urine Color Pale yellow Urine Appearance Clear Urine pH 7 (4.5-8.0) Urine Specific [place] 1.010 (1.005-1.035) Urine Protein 3+ (NEGATIVE) H Urine Glucose (UA) 4+ (NEGATIVE) H Urine Ketones 3+ (NEGATIVE) H Urine Occult Blood 2+ (NEGATIVE) H Urine Nitrite Negative (NEGATIVE) Urine Bilirubin Negative (NEGATIVE) Urine Urobilinogen Normal MG/DL (0.0-1.0) Urine Leukocyte Esterase Negative (NEGATIVE) Urine RBC 0-2 /HPF (0 - 2) Urine WBC 0-2 /HPF (0 - 2) Urine Squamous Epithelial Cells Occasional /LPF Urine Bacteria None /HPF (NONE) Current Medications Medications (Trade) Dose Ordered Sig/Mateo Route PRN Reason Start Time Stop Time Status Last Admin Dose Admin Acetaminophen (Tylenol) 650 mg Q4H PRN ORAL fever 04/29/17 21:15 05/29/17 21:14 Al Hydroxide/Mg Hydroxide (Mylanta II) 30 ml Q6H PRN ORAL dyspepsia 04/29/17 21:15 05/29/17 21:14 Albuterol/ Ipratropium (DuoNeb 0.5-3(2.5)mg/3ml) 3 ml Q4H PRN HHN Shortness of Breath 04/29/17 21:15 05/04/17 21:14 Amlodipine Besylate (Norvasc) 5 mg Q12HR ORAL 04/30/17 09:00 05/30/17 08:59 04/30/17 09:13 Calcium Carbonate (Os-Osvaldo) 1,250 mg DAILY ORAL 04/30/17 09:00 05/30/17 08:59 04/30/17 09:13 Clonidine HCl (Catapres) 0.1 mg Q4H PRN ORAL sbp more than 160 04/29/17 21:15 05/29/17 21:14 04/30/17 12:28 Dextrose (Dextrose 50%) STAT PRN IV Hypoglycemia 04/29/17 21:15 05/29/17 21:14 Divalproex Sodium 1000 mg 1,000 mg QHS ORAL 04/30/17 21:00 05/30/17 20:59 Heparin Sodium (Porcine) (Heparin 5000 units/ml) 5,000 units EVERY 12 HOURS SUBQ 04/30/17 09:00 05/30/17 08:59 04/30/17 09:19 Insulin Aspart (NovoLOG) BEFORE MEALS AND HS SUBQ 04/30/17 06:30 05/30/17 06:29 04/30/17 11:43 Ketorolac Tromethamine (Toradol 30mg) 30 mg Q6H PRN IV moderate pain 4-6 04/29/17 21:15 05/04/17 21:14 Morphine Sulfate (Morphine Sulfate) 2 mg Q4H PRN IVP severe pain 7-10 04/29/17 21:15 05/06/17 21:14 04/30/17 05:49 Nitroglycerin (Ntg) 0.4 mg Q5M X 3 DOSES PRN SL Prn Chest Pain 04/29/17 21:15 05/29/17 21:14 Ondansetron HCl (Zofran) 4 mg Q6H PRN IVP Nausea & Vomiting 04/29/17 21:15 05/29/17 21:14 04/30/17 09:13 Polyethylene Glycol (Miralax) 17 gm HSPRN PRN ORAL Constipation 04/29/17 21:15 05/29/17 21:14 Sodium Chloride (Sodium Chloride 1000ml bag) 1,000 ml @ 100 mls/hr Q10H IVLG 04/29/17 22:00 05/29/17 21:59 04/30/17 09:00 Temazepam (Restoril) 15 mg HSPRN PRN ORAL Insomnia 04/29/17 21:15 05/06/17 21:14 Choco Lozada M.D. Apr 30, 2017 15:30
--- NOTE | 2017-04-30 15:48 | GI Initial Consult Note ---
History of Present Illness General Date patient seen: Apr 30, 2017 Time patient seen: 15:43 Reason for Hospitalization: Abdominal Pain Referring physician: ENOCH GONZALEZ Reason for Consultation: GASTROPARESIS Present Illness HPI 42-year-old female presents ED complaining abdominal pain and nausea and vomiting x1 day. Patient states she is a diabetic. Patient is well-known to [facility] [place]-has history of diabetes poorly controlled and gastroparesis. Patient states she was recently discharged from the hospital. Patient states 10 out of 10 epigastric pain, sharp, nonradiating. With associated vomiting. Denies fevers chills. Denies chest pain or shortness of breath. No other aggravating relieving factors. Denies any other associated symptoms GI CONSULT: HPI as noted above. GI consulted for N/V. Pt seen on floor, awake and alert actively vomiting no signs of blood. Patient is a readmission, s/p EGD on 02/08/17 (see report below), presents today with anemia and c/o of abdominal pain/N/V. Tobacco user. Denies ETOH and IVDA. Date of Service: 02/08/17 SURGEON: Jarek Escalante M.D. PROCEDURE: Upper endoscopy with biopsy. INDICATION: Esophagitis lung CT and esophageal wall thickening. SUMMARY FINDINGS: 1. Severe distal esophagitis with some white discharge only suspicious for candidal status post biopsy. 2. Gastritis, status post biopsy. Home Meds Reported Medications Temazepam (TEMAZEPAM*) 15 Mg Capsule, 15 MG ORAL BEDTIME, #30 CAP 0 Refills 04/24/17 Ondansetron* (ZOFRAN*) 4 Mg/2 Ml Vial, 4 MG IVP Q6H Y for Nausea & Vomiting, VIAL 04/24/17 Magnesium Oxide (Magnesium Oxide) 400 Mg Tablet, 400 MG ORAL TID, #30 TAB 0 Refills 04/24/17 Heparin Sodium,Porcine/Ns/Pf (Heparin) 2,000 Unit/1000 Ml Iv.soln, 5000 UNIT SUBQ EVERY 12 HOURS 04/24/17 Clonidine HCl (Clonidine HCl) 0.1 Mg Tablet, 0.1 MG PO EVERY 4 HOURS, TAB 04/18/17 Amlodipine Besylate (Norvasc) 5 Mg Tablet, 5 MG ORAL Q12HR, TAB 04/18/17 Temazepam* (RESTORIL*) 15 Mg Capsule, 15 MG ORAL BEDTIME Y for Insomnia, CAP 5/26/17 Ranitidine Hcl* (ZANTAC*) 150 Mg Tablet, 150 MG ORAL DAILY, #30 TAB 0 Refills 04/18/17 Polyethylene Glycol 3350* (MIRALAX*) 17 Gm Powd.pack, 17 GM ORAL HS for Constipation, PACKET 04/18/17 Pantoprazole* (PROTONIX*) 40 Mg Tablet.dr, 40 MG ORAL DAILY, TAB 04/18/17 Nitroglycerin (NITROGLYCERIN) 0.4 Mg Tab.subl, 0.4 MG SL, TAB 04/18/17 Insulin Detemir (LEVEMIR) 100 Unit/1 Ml Vial, 8 SUBQ BID, VIAL 04/18/17 Insulin Aspart* (NOVOLOG*) 100 Unit/1 Ml Insuln.pen, 0 SUBQ BEFORE MEALS AND HS , #1 EA 0 Refills 04/18/17 Insulin Aspart* (NOVOLOG*) 100 Unit/1 Ml Insuln.pen, 4 SUBQ, #1 EA 0 Refills 04/18/17 Divalproex Sodium* (DEPAKOTE ER*) 500 Mg Tab.er.24h, 1000 MG ORAL QHS, TAB 04/18/17 Calcium Carbonate (CALCIUM CARBONATE) 500 Mg Tablet, 500 MG PO DAILY, TAB 04/18/17 Al Hydroxide/mg Hydroxide (Mag-Al Plus Suspension) 30 Ml Oral.susp, 30 ML ORAL EVERY 6 HOURS, ML 04/18/17 Acetaminophen (Acetaminophen) 650 Mg/20.3 Ml Solution, 650 MG ORAL EVERY 4 HOURS , ML 0 Refills 04/18/17 Pantoprazole* (PROTONIX*) 40 Mg Tablet.dr, 40 MG ORAL DAILY, TAB 02/13/17 Ranitidine Hcl* (ZANTAC*) 150 Mg Tablet, 150 MG ORAL TWICE A DAY, TAB 02/13/17 Med list reviewed/reconciled: Yes Allergies: Coded Allergies: No Known Allergies (Verified , NONE, 04/29/17) Patient History History Provided By: Patient, Medical Record PM Narrative Past Medical History: DM, HTN Past Surgical History: none Pertinent Family History: none Social History: Denies: alcohol use, drug use, smoking Last Menstrual Period: march 2017 Now: No Immunizations: UTD Reviewed Nursing Documentation: PMH: Agreed, PSxH: Agreed Nursing Documentation-PM Past Medical History: No History, Except For Hx Cardiac Problems: Yes Hx Hypertension: Yes Hx Diabetes: Yes - pancretitis Hx Cancer: No Hx Gastrointestinal Problems: Yes Hx Neurological Problems: Yes Hx Cerebrovascular Accident: Yes Hx Seizures: Yes Hx Vertigo: Yes Hx Dizziness: Yes Hx Headaches: Yes Hx Weakness: Yes Hx Fatigue: Yes Hx Neurologic Surgery: No Review of Systems All Other Systems: negative except mentioned in HPI Physical Exam Vital Signs Date Time Temp Pulse Resp B/P Pulse Ox O2 Delivery O2 Flow Rate FiO2 04/29/17 19:28 98.2 98 18 155/104 97 Room Air Sp02 EP Interpretation: reviewed Labs Laboratory Tests Test 04/29/17 20:50 04/29/17 21:15 White Blood Count 17.0 K/UL (4.8-10.8) H Red Blood Count 3.57 M/UL (4.20-5.40) L Hemoglobin 11.2 G/DL (12.0-16.0) L Hematocrit 32.8 % (37.0-47.0) L Mean Corpuscular Volume 92 FL (80-99) Mean Corpuscular Hemoglobin 31.3 PG (27.0-31.0) H Mean Corpuscular Hemoglobin Concent 34.0 G/DL (32.0-36.0) Red Cell Distribution Width 14.1 % (11.6-14.8) Platelet Count 359 K/UL (150-450) Mean Platelet Volume 7.3 FL (6.5-10.1) Neutrophils (%) (Auto) 73.5 % (45.0-75.0) Lymphocytes (%) (Auto) 17.3 % (20.0-45.0) L Monocytes (%) (Auto) 7.7 % (1.0-10.0) Eosinophils (%) (Auto) 0.6 % (0.0-3.0) Basophils (%) (Auto) 0.8 % (0.0-2.0) Sodium Level 135 mEQ/L (135-145) Potassium Level 4.0 mEQ/L (3.4-4.9) Chloride Level 90 mEQ/L (98-107) L Carbon Dioxide Level 22 mEQ/L (20-30) Anion Gap 23 (5-15) H Blood Urea Nitrogen 14 mg/dL (7-23) Creatinine 1.3 mg/dL (0.5-0.9) H Estimat Glomerular Filtration Rate 54.9 mL/min (>60) Glucose Level 297 mg/dL (74-106) H Calcium Level 9.7 mg/dL (8.6-10.2) Total Bilirubin 0.5 mg/dL (0.0-1.2) Aspartate Amino Transf (AST/SGOT) 24 U/L (5-40) Alanine Aminotransferase (ALT/SGPT) 14 U/L (3-33) Alkaline Phosphatase 143 U/L (35-104) H Total Protein 8.0 g/dL (6.6-8.7) Albumin 4.2 g/dL (3.5-5.2) Globulin 3.8 g/dL Albumin/Globulin Ratio 1.1 (1.0-2.7) Lipase 8 U/L (< 60) Acetone Level Positive-small (NEGATIVE) Urine Color Pale yellow Urine Appearance Clear Urine pH 7 (4.5-8.0) Urine Specific [place] 1.010 (1.005-1.035) Urine Protein 3+ (NEGATIVE) H Urine Glucose (UA) 4+ (NEGATIVE) H Urine Ketones 3+ (NEGATIVE) H Urine Occult Blood 2+ (NEGATIVE) H Urine Nitrite Negative (NEGATIVE) Urine Bilirubin Negative (NEGATIVE) Urine Urobilinogen Normal MG/DL (0.0-1.0) Urine Leukocyte Esterase Negative (NEGATIVE) Urine RBC 0-2 /HPF (0 - 2) Urine WBC 0-2 /HPF (0 - 2) Urine Squamous Epithelial Cells Occasional /LPF Urine Bacteria None /HPF (NONE) General Appearance: well appearing, no apparent distress, alert Head: normocephalic Neck: supple Respiratory: normal breath sounds, no respiratory distress Cardiovascular: normal rate Gastrointestinal: normal inspection, non tender, soft Genitourinary: no CVA tenderness Musculoskeletal: back normal Neurologic: normal inspection, alert, oriented x3, responsive Psychiatric: normal inspection, judgement/insight normal Skin: normal inspection, normal color, no rash, warm/dry Lymphatic: normal inspection, no adenopathy Current Medications Current Medications Medications (Trade) Dose Ordered Sig/Mateo Route PRN Reason Start Time Stop Time Status Last Admin Dose Admin Acetaminophen (Tylenol) 650 mg Q4H PRN ORAL fever 04/29/17 21:15 05/29/17 21:14 Al Hydroxide/Mg Hydroxide (Mylanta II) 30 ml Q6H PRN ORAL dyspepsia 04/29/17 21:15 05/29/17 21:14 Albuterol/ Ipratropium (DuoNeb 0.5-3(2.5)mg/3ml) 3 ml Q4H PRN HHN Shortness of Breath 04/29/17 21:15 05/04/17 21:14 Amlodipine Besylate (Norvasc) 5 mg Q12HR ORAL 04/30/17 09:00 05/30/17 08:59 04/30/17 09:13 Calcium Carbonate (Os-Osvaldo) 1,250 mg DAILY ORAL 04/30/17 09:00 05/30/17 08:59 04/30/17 09:13 Clonidine HCl (Catapres) 0.1 mg Q4H PRN ORAL sbp more than 160 04/29/17 21:15 05/29/17 21:14 04/30/17 12:28 Dextrose (Dextrose 50%) STAT PRN IV Hypoglycemia 04/29/17 21:15 05/29/17 21:14 Divalproex Sodium 1000 mg 1,000 mg QHS ORAL 04/30/17 21:00 05/30/17 20:59 Heparin Sodium (Porcine) (Heparin 5000 units/ml) 5,000 units EVERY 12 HOURS SUBQ 04/30/17 09:00 05/30/17 08:59 04/30/17 09:19 Insulin Aspart (NovoLOG) BEFORE MEALS AND HS SUBQ 04/30/17 06:30 05/30/17 06:29 04/30/17 11:43 Ketorolac Tromethamine (Toradol 30mg) 30 mg Q6H PRN IV moderate pain 4-6 04/29/17 21:15 05/04/17 21:14 Morphine Sulfate (Morphine Sulfate) 2 mg Q4H PRN IVP severe pain 7-10 04/29/17 21:15 05/06/17 21:14 04/30/17 05:49 Nitroglycerin (Ntg) 0.4 mg Q5M X 3 DOSES PRN SL Prn Chest Pain 04/29/17 21:15 05/29/17 21:14 Ondansetron HCl (Zofran) 4 mg Q6H PRN IVP Nausea & Vomiting 6/6/17 21:15 05/29/17 21:14 04/30/17 09:13 Polyethylene Glycol (Miralax) 17 gm HSPRN PRN ORAL Constipation 04/29/17 21:15 05/29/17 21:14 Sodium Chloride (Sodium Chloride 1000ml bag) 1,000 ml @ 100 mls/hr Q10H IVLG 04/29/17 22:00 05/29/17 21:59 04/30/17 09:00 Temazepam (Restoril) 15 mg HSPRN PRN ORAL Insomnia 04/29/17 21:15 05/06/17 21:14 GI: Plan Problems: (1) DKA (diabetic ketoacidoses) (2) Diabetes (3) Gastroparesis due to DM (4) Anemia (5) Altered mental status (6) Intractable nausea and vomiting Plan Date of Service: 02/08/17 PROCEDURE: Upper endoscopy with biopsy. INDICATION: Esophagitis lung CT and esophageal wall thickening. S/P EGD SUMMARY FINDINGS: 1. Severe distal esophagitis with some white discharge only suspicious for candidal status post biopsy. >> negative for fungal organisms. Revealed sloughing inflamed necrotic tissue with neutrophils, see full pathology report. 2. Gastritis, status post biopsy. >> unremarkable HgA1C >> 9.0 elevated triglycerides iron panel unremarkable maintain NPO + IVFs IV hydration + electrolyte replacement reglan 10mg for GI motility, consider low dose erythromycin if patient continues to vomit zofran prn DM mgmt monitor H&H, transfuse prn ppi abx fu labs Discussed with Dr. Vickers. Muriel Serra N.P. Apr 30, 2017 15:48
--- NOTE | 2017-04-30 15:58 | Diagnostic Imaging Report ---
Indication: Chest Pain Comparison: 04/21/17 A single view chest radiograph was obtained. Findings: Lungs are clear. Heart is normal in size. [place] foreign bodies projected over the right chest wall and axilla. Bones are osteopenic. Impression: No acute disease
[2017-04-30 16:00] VITALS: BP 157/93
--- NOTE | 2017-04-30 16:09 | Consultation ---
History of Present Illness General Date patient seen: Apr 30, 2017 Chief Complaint: Abdominal Pain Referring physician: ENOCH GONZALEZ Reason for Consultation: inpatient management Present Illness HPI 42-year-old female with labile DM, gastroparesis and noncompliance presented to ED complaining of abdominal pain and nausea and vomiting x1 day. l. Patient states 10 out of 10 epigastric pain, sharp, nonradiating. With associated vomiting. Denies fevers chills. Allergies: Coded Allergies: No Known Allergies (Verified , NONE, 04/29/17) Medication History Scheduled Acetaminophen (Acetaminophen), 650 MG ORAL EVERY 4 HOURS, (Reported) Al Hydroxide/mg Hydroxide (Mag-Al Plus Suspension), 30 ML ORAL EVERY 6 HOURS, ( Reported) Amlodipine Besylate (Norvasc), 5 MG ORAL Q12HR, (Reported) Calcium Carbonate (Calcium Carbonate), 500 MG PO DAILY, (Reported) Clonidine HCl (Clonidine HCl), 0.1 MG PO EVERY 4 HOURS, (Reported) Divalproex Sodium* (Depakote Er*), 1,000 MG ORAL QHS, (Reported) Heparin Sodium,Porcine/Ns/Pf (Heparin), 5,000 UNIT SUBQ EVERY 12 HOURS, ( Reported) Insulin Aspart* (Novolog*), 0 SUBQ BEFORE MEALS AND HS, (Reported) Insulin Detemir (Levemir), 8 SUBQ BID, (Reported) Magnesium Oxide (Magnesium Oxide), 400 MG ORAL TID, (Reported) Pantoprazole* (Protonix*), 40 MG ORAL DAILY, (Reported) Pantoprazole* (Protonix*), 40 MG ORAL DAILY, (Reported) Polyethylene Glycol 3350* (Miralax*), 17 GM ORAL HS, (Reported) Ranitidine Hcl* (Zantac*), 150 MG ORAL TWICE A DAY, (Reported) Ranitidine Hcl* (Zantac*), 150 MG ORAL DAILY, (Reported) Temazepam (Temazepam*), 15 MG ORAL BEDTIME, (Reported) Scheduled PRN Ondansetron* (Zofran*), 4 MG IVP Q6H PRN for Nausea & Vomiting, (Reported) Temazepam* (Restoril*), 15 MG ORAL BEDTIME PRN for Insomnia, (Reported) Miscellaneous Medications Insulin Aspart* (Novolog*), 4 SUBQ, (Reported) Nitroglycerin (Nitroglycerin), 0.4 MG SL, (Reported) Patient History Healthcare decision maker PERIBRENNAN Resuscitation status Full Code Advanced Directive on File N/A Past Medical/Surgical History Past Medical/Surgical History: (1) Intractable nausea and vomiting (2) Diabetes (3) Gastroparesis due to DM (4) Hyperglycemia Review of Systems All Other Systems: negative except mentioned in HPI Physical Exam General Appearance: WD/WN, no apparent distress Lines, tubes and drains: peripheral HEENT: normocephalic, atraumatic Neck: non-tender, normal alignment Respiratory/Chest: chest wall non-tender, lungs clear Breasts: no masses Cardiovascular/Chest: normal peripheral pulses Abdomen: normal bowel sounds, non tender Genitourinary/Rectal: normal genital exam Extremities: normal range of motion Skin Exam: normal pigmentation Last 24 Hour Vital Signs Date Time Temp Pulse Resp B/P Pulse Ox O2 Delivery O2 Flow Rate FiO2 04/30/17 12:28 161/77 04/30/17 12:00 97.0 93 20 172/105 100 Room Air 04/30/17 09:13 89 153/77 04/30/17 08:00 97.9 95 20 151/98 99 Room Air 04/30/17 06:34 88 18 Room Air 04/30/17 06:19 98.9 04/30/17 01:00 98.9 89 20 153/77 99 Room Air 04/30/17 00:36 90 14 131/71 96 Room Air 04/30/17 00:22 90 14 131/71 96 Room Air 04/29/17 23:21 99.0 93 24 142/73 99 Room Air 04/29/17 22:22 173/101 04/29/17 21:22 99.1 83 22 179/109 100 Room Air 04/29/17 19:28 98.2 98 18 155/104 97 Room Air Intake and Output 04/29/17 04/30/17 19:00 07:00 Intake Total 1105 ml Balance 1105 ml Intake Oral 180 ml IV Total 925 ml # Voids 2 Laboratory Tests Test 04/29/17 20:50 04/29/17 21:15 White Blood Count 17.0 K/UL (4.8-10.8) H Red Blood Count 3.57 M/UL (4.20-5.40) L Hemoglobin 11.2 G/DL (12.0-16.0) L Hematocrit 32.8 % (37.0-47.0) L Mean Corpuscular Volume 92 FL (80-99) Mean Corpuscular Hemoglobin 31.3 PG (27.0-31.0) H Mean Corpuscular Hemoglobin Concent 34.0 G/DL (32.0-36.0) Red Cell Distribution Width 14.1 % (11.6-14.8) Platelet Count 359 K/UL (150-450) Mean Platelet Volume 7.3 FL (6.5-10.1) Neutrophils (%) (Auto) 73.5 % (45.0-75.0) Lymphocytes (%) (Auto) 17.3 % (20.0-45.0) L Monocytes (%) (Auto) 7.7 % (1.0-10.0) Eosinophils (%) (Auto) 0.6 % (0.0-3.0) Basophils (%) (Auto) 0.8 % (0.0-2.0) Sodium Level 135 mEQ/L (135-145) Potassium Level 4.0 mEQ/L (3.4-4.9) Chloride Level 90 mEQ/L (98-107) L Carbon Dioxide Level 22 mEQ/L (20-30) Anion Gap 23 (5-15) H Blood Urea Nitrogen 14 mg/dL (7-23) Creatinine 1.3 mg/dL (0.5-0.9) H Estimat Glomerular Filtration Rate 54.9 mL/min (>60) Glucose Level 297 mg/dL (74-106) H Calcium Level 9.7 mg/dL (8.6-10.2) Total Bilirubin 0.5 mg/dL (0.0-1.2) Aspartate Amino Transf (AST/SGOT) 24 U/L (5-40) Alanine Aminotransferase (ALT/SGPT) 14 U/L (3-33) Alkaline Phosphatase 143 U/L (35-104) H Total Protein 8.0 g/dL (6.6-8.7) Albumin 4.2 g/dL (3.5-5.2) Globulin 3.8 g/dL Albumin/Globulin Ratio 1.1 (1.0-2.7) Lipase 8 U/L (< 60) Acetone Level Positive-small (NEGATIVE) Urine Color Pale yellow Urine Appearance Clear Urine pH 7 (4.5-8.0) Urine Specific [place] 1.010 (1.005-1.035) Urine Protein 3+ (NEGATIVE) H Urine Glucose (UA) 4+ (NEGATIVE) H Urine Ketones 3+ (NEGATIVE) H Urine Occult Blood 2+ (NEGATIVE) H Urine Nitrite Negative (NEGATIVE) Urine Bilirubin Negative (NEGATIVE) Urine Urobilinogen Normal MG/DL (0.0-1.0) Urine Leukocyte Esterase Negative (NEGATIVE) Urine RBC 0-2 /HPF (0 - 2) Urine WBC 0-2 /HPF (0 - 2) Urine Squamous Epithelial Cells Occasional /LPF Urine Bacteria None /HPF (NONE) Height (Feet): 5 Height (Inches): 6.00 Weight (Pounds): 120 Medications Current Medications Medications (Trade) Dose Ordered Sig/Mateo Route PRN Reason Start Time Stop Time Status Last Admin Dose Admin Acetaminophen (Tylenol) 650 mg Q4H PRN ORAL fever 04/29/17 21:15 05/29/17 21:14 Al Hydroxide/Mg Hydroxide (Mylanta II) 30 ml Q6H PRN ORAL dyspepsia 04/29/17 21:15 05/29/17 21:14 Albuterol/ Ipratropium (DuoNeb 0.5-3(2.5)mg/3ml) 3 ml Q4H PRN HHN Shortness of Breath 04/29/17 21:15 05/04/17 21:14 Amlodipine Besylate (Norvasc) 5 mg Q12HR ORAL 04/30/17 09:00 05/30/17 08:59 04/30/17 09:13 Calcium Carbonate (Os-Osvaldo) 1,250 mg DAILY ORAL 04/30/17 09:00 05/30/17 08:59 04/30/17 09:13 Clonidine HCl (Catapres) 0.1 mg Q4H PRN ORAL sbp more than 160 04/29/17 21:15 05/29/17 21:14 04/30/17 12:28 Dextrose (Dextrose 50%) STAT PRN IV Hypoglycemia 04/29/17 21:15 05/29/17 21:14 Divalproex Sodium (Depakote ER) 1,000 mg QHS ORAL 04/30/17 21:00 05/30/17 20:59 Heparin Sodium (Porcine) (Heparin 5000 units/ml) 5,000 units EVERY 12 HOURS SUBQ 04/30/17 09:00 05/30/17 08:59 04/30/17 09:19 Insulin Aspart (NovoLOG) BEFORE MEALS AND HS SUBQ 04/30/17 06:30 05/30/17 06:29 04/30/17 11:43 Ketorolac Tromethamine (Toradol 30mg) 30 mg Q6H PRN IV moderate pain 4-6 04/29/17 21:15 05/04/17 21:14 Metoclopramide HCl 10 mg 10 mg Q8HR IVP 04/30/17 16:00 05/30/17 15:59 Morphine Sulfate (Morphine Sulfate) 2 mg Q4H PRN IVP severe pain 7-10 04/29/17 21:15 05/06/17 21:14 04/30/17 05:49 Nitroglycerin (Ntg) 0.4 mg Q5M X 3 DOSES PRN SL Prn Chest Pain 04/29/17 21:15 05/29/17 21:14 Ondansetron HCl (Zofran) 4 mg Q6H PRN IVP Nausea & Vomiting 04/29/17 21:15 05/29/17 21:14 04/30/17 09:13 Pantoprazole (Protonix) 40 mg DAILY IVP 05/01/17 09:00 05/31/17 08:59 Polyethylene Glycol (Miralax) 17 gm HSPRN PRN ORAL Constipation 04/29/17 21:15 05/29/17 21:14 Sodium (0.45%NS w/KCl 20mEq 1000ml) 1,000 ml @ 100 mls/hr Q10H IV 04/30/17 18:00 05/30/17 17:59 Temazepam (Restoril) 15 mg HSPRN PRN ORAL Insomnia 04/29/17 21:15 05/06/17 21:14 Assessment/Plan Problem List: (1) Intractable nausea and vomiting ICD Codes: R11.2 - Nausea with vomiting, unspecified SNOMED: 682879045, 444189574 (2) Diabetes ICD Codes: E11.9 - Type 2 diabetes mellitus without complications SNOMED: 16060267 (3) Gastroparesis due to DM ICD Codes: E11.43 - Type 2 diabetes mellitus with diabetic autonomic (poly) neuropathy; K31.84 - Gastroparesis SNOMED: 97321865, [id number] Assessment/Plan NPO IV fluids sliding scale GI and Endo to see MILA LAINEZ Apr 30, 2017 16:09
[2017-04-30] MEDS: Metoclopramide 10mg/2ml Inj IVP SCH ×2 (16:52→21:11)
[2017-04-30] MEDS: 1/2NS w/KCl 20mEq 1000ml 1,000 ML IV SCH (16:52)
--- NOTE | 2017-04-30 17:55 | Cardiac Electrophysiology PN ---
Subjective Subjective [id number] Objective Last 24 Hour Vital Signs Date Time Temp Pulse Resp B/P Pulse Ox O2 Delivery O2 Flow Rate FiO2 04/30/17 16:00 97.5 92 20 157/93 97 Room Air 04/30/17 12:28 161/77 04/30/17 12:00 97.0 93 20 172/105 100 Room Air 04/30/17 09:13 89 153/77 04/30/17 08:00 97.9 95 20 151/98 99 Room Air 04/30/17 06:34 88 18 Room Air 04/30/17 06:19 98.9 04/30/17 01:00 98.9 89 20 153/77 99 Room Air 04/30/17 00:36 90 14 131/71 96 Room Air 04/30/17 00:22 90 14 131/71 96 Room Air 04/29/17 23:21 99.0 93 24 142/73 99 Room Air 04/29/17 22:22 173/101 04/29/17 21:22 99.1 83 22 179/109 100 Room Air 04/29/17 19:28 98.2 98 18 155/104 97 Room Air Intake and Output 04/29/17 04/30/17 19:00 07:00 Intake Total 1105 ml Balance 1105 ml Intake Oral 180 ml IV Total 925 ml # Voids 2 Laboratory Tests Test 04/29/17 20:50 04/29/17 21:15 White Blood Count 17.0 K/UL (4.8-10.8) H Red Blood Count 3.57 M/UL (4.20-5.40) L Hemoglobin 11.2 G/DL (12.0-16.0) L Hematocrit 32.8 % (37.0-47.0) L Mean Corpuscular Volume 92 FL (80-99) Mean Corpuscular Hemoglobin 31.3 PG (27.0-31.0) H Mean Corpuscular Hemoglobin Concent 34.0 G/DL (32.0-36.0) Red Cell Distribution Width 14.1 % (11.6-14.8) Platelet Count 359 K/UL (150-450) Mean Platelet Volume 7.3 FL (6.5-10.1) Neutrophils (%) (Auto) 73.5 % (45.0-75.0) Lymphocytes (%) (Auto) 17.3 % (20.0-45.0) L Monocytes (%) (Auto) 7.7 % (1.0-10.0) Eosinophils (%) (Auto) 0.6 % (0.0-3.0) Basophils (%) (Auto) 0.8 % (0.0-2.0) Sodium Level 135 mEQ/L (135-145) Potassium Level 4.0 mEQ/L (3.4-4.9) Chloride Level 90 mEQ/L (98-107) L Carbon Dioxide Level 22 mEQ/L (20-30) Anion Gap 23 (5-15) H Blood Urea Nitrogen 14 mg/dL (7-23) Creatinine 1.3 mg/dL (0.5-0.9) H Estimat Glomerular Filtration Rate 54.9 mL/min (>60) Glucose Level 297 mg/dL (74-106) H Calcium Level 9.7 mg/dL (8.6-10.2) Total Bilirubin 0.5 mg/dL (0.0-1.2) Aspartate Amino Transf (AST/SGOT) 24 U/L (5-40) Alanine Aminotransferase (ALT/SGPT) 14 U/L (3-33) Alkaline Phosphatase 143 U/L (35-104) H Total Protein 8.0 g/dL (6.6-8.7) Albumin 4.2 g/dL (3.5-5.2) Globulin 3.8 g/dL Albumin/Globulin Ratio 1.1 (1.0-2.7) Lipase 8 U/L (< 60) Acetone Level Positive-small (NEGATIVE) Urine Color Pale yellow Urine Appearance Clear Urine pH 7 (4.5-8.0) Urine Specific [place] 1.010 (1.005-1.035) Urine Protein 3+ (NEGATIVE) H Urine Glucose (UA) 4+ (NEGATIVE) H Urine Ketones 3+ (NEGATIVE) H Urine Occult Blood 2+ (NEGATIVE) H Urine Nitrite Negative (NEGATIVE) Urine Bilirubin Negative (NEGATIVE) Urine Urobilinogen Normal MG/DL (0.0-1.0) Urine Leukocyte Esterase Negative (NEGATIVE) Urine RBC 0-2 /HPF (0 - 2) Urine WBC 0-2 /HPF (0 - 2) Urine Squamous Epithelial Cells Occasional /LPF Urine Bacteria None /HPF (NONE) MARCIA PINTO Apr 30, 2017 17:55
[2017-04-30] MEDS ORDERED: Enalaprilat 2.5mg/2ml Inj IV PRN (18:00)
--- NOTE | 2017-04-30 19:38 | General Progress Note ---
Assessment/Plan Problem List: (1) DKA (diabetic ketoacidoses) ICD Codes: E13.10 - Other specified diabetes mellitus with ketoacidosis without coma SNOMED: 94387444, 761946398 (2) Diabetes ICD Codes: E11.9 - Type 2 diabetes mellitus without complications SNOMED: 90875546 (3) Gastroparesis due to DM ICD Codes: E11.43 - Type 2 diabetes mellitus with diabetic autonomic (poly) neuropathy; K31.84 - Gastroparesis SNOMED: 97752563, 641090813 (4) Hyperglycemia ICD Codes: R73.9 - Hyperglycemia, unspecified SNOMED: 53972412 Assessment/Plan add Levemir 10 units bid add Novolog 4 units ac tid + SSI follow up labs - pending continue IVF might need insulin drip if not improved Subjective ROS Limited/Unobtainable: Yes Allergies: Coded Allergies: No Known Allergies (Verified , NONE, 04/29/17) Subjective awake - events noted Objective Last 24 Hour Vital Signs Date Time Temp Pulse Resp B/P Pulse Ox O2 Delivery O2 Flow Rate FiO2 04/30/17 19:00 86 18 Room Air 04/30/17 16:00 97.5 92 20 157/93 97 Room Air 04/30/17 12:28 161/77 04/30/17 12:00 97.0 93 20 172/105 100 Room Air 04/30/17 09:13 89 153/77 04/30/17 08:00 97.9 95 20 151/98 99 Room Air 04/30/17 06:34 88 18 Room Air 04/30/17 06:19 98.9 04/30/17 01:00 98.9 89 20 153/77 99 Room Air 04/30/17 00:36 90 14 131/71 96 Room Air 04/30/17 00:22 90 14 131/71 96 Room Air 04/29/17 23:21 99.0 93 24 142/73 99 Room Air 04/29/17 22:22 173/101 04/29/17 21:22 99.1 83 22 179/109 100 Room Air Intake and Output 04/29/17 04/30/17 19:00 07:00 Intake Total 1105 ml Balance 1105 ml Intake Oral 180 ml IV Total 925 ml # Voids 2 Laboratory Tests 04/29/17 20:50: White Blood Count 17.0H, Red Blood Count 3.57L, Hemoglobin 11.2L, Hematocrit 32.8L, Mean Corpuscular Volume 92, Mean Corpuscular Hemoglobin 31.3H, Mean Corpuscular Hemoglobin Concent 34.0, Red Cell Distribution Width 14.1, Platelet Count 359, Mean Platelet Volume 7.3, Neutrophils (%) (Auto) 73.5, Lymphocytes (% ) (Auto) 17.3L, Monocytes (%) (Auto) 7.7, Eosinophils (%) (Auto) 0.6, Basophils (%) (Auto) 0.8, Sodium Level 135, Potassium Level 4.0, Chloride Level 90L, Carbon Dioxide Level 22, Anion Gap 23H, Blood Urea Nitrogen 14, Creatinine 1.3H , Estimat Glomerular Filtration Rate 54.9, Glucose Level 297H, Calcium Level 9.7 , Total Bilirubin 0.5, Aspartate Amino Transf (AST/SGOT) 24, Alanine Aminotransferase (ALT/SGPT) 14, Alkaline Phosphatase 143H, Total Protein 8.0, Albumin 4.2, Globulin 3.8, Albumin/Globulin Ratio 1.1, Lipase 8, Acetone Level Positive-small 04/29/17 21:15: Urine Color Pale yellow, Urine Appearance Clear, Urine pH 7, Urine Specific [place] 1.010, Urine Protein 3+H, Urine Glucose (UA) 4+H, Urine Ketones 3+H, Urine Occult Blood 2+H, Urine Nitrite Negative, Urine Bilirubin Negative, Urine Urobilinogen Normal, Urine Leukocyte Esterase Negative, Urine RBC 0-2, Urine WBC 0-2, Urine Squamous Epithelial Cells Occasional, Urine Bacteria None Height (Feet): 5 Height (Inches): 6.00 Weight (Pounds): 120 General Appearance: no apparent distress Neck: normal alignment Cardiovascular: normal rate Respiratory/Chest: lungs clear Abdomen: normal bowel sounds Pelvis: normal external exam Edema: no edema noted Arm (L), no edema noted Arm (R), no edema noted Leg (L), no edema noted Leg (R), no edema noted Pedal (L), no edema noted Pedal (R), no edema noted Generalized Objective Current Medications Medications (Trade) Dose Ordered Sig/Mateo Route PRN Reason Start Time Stop Time Status Last Admin Dose Admin Acetaminophen (Tylenol) 650 mg Q4H PRN ORAL fever 04/29/17 21:15 05/29/17 21:14 Al Hydroxide/Mg Hydroxide (Mylanta II) 30 ml Q6H PRN ORAL dyspepsia 04/29/17 21:15 05/29/17 21:14 Albuterol/ Ipratropium (DuoNeb 0.5-3(2.5)mg/3ml) 3 ml Q4H PRN HHN Shortness of Breath 04/29/17 21:15 05/04/17 21:14 Amlodipine Besylate (Norvasc) 5 mg Q12HR ORAL 04/30/17 09:00 05/30/17 08:59 04/30/17 09:13 Calcium Carbonate (Os-Osvaldo) 1,250 mg DAILY ORAL 04/30/17 09:00 05/30/17 08:59 04/30/17 09:13 Clonidine HCl (Catapres) 0.1 mg Q4H PRN ORAL sbp more than 160 04/29/17 21:15 05/29/17 21:14 04/30/17 12:28 Dextrose (Dextrose 50%) STAT PRN IV Hypoglycemia 04/29/17 21:15 05/29/17 21:14 Divalproex Sodium (Depakote ER) 1,000 mg QHS ORAL 04/30/17 21:00 05/30/17 20:59 Enalaprilat (Vasotec) 2.5 mg EVERY 6 HOURS PRN IV htn 04/30/17 18:00 05/30/17 17:59 Heparin Sodium (Porcine) (Heparin 5000 units/ml) 5,000 units EVERY 12 HOURS SUBQ 04/30/17 09:00 05/30/17 08:59 04/30/17 09:19 Insulin Aspart (NovoLOG) BEFORE MEALS AND HS SUBQ 04/30/17 06:30 05/30/17 06:29 04/30/17 16:48 Ketorolac Tromethamine (Toradol 30mg) 30 mg Q6H PRN IV moderate pain 4-6 04/29/17 21:15 05/04/17 21:14 Metoclopramide HCl 10 mg 10 mg Q8HR IVP 04/30/17 16:00 05/30/17 15:59 04/30/17 16:52 Morphine Sulfate (Morphine Sulfate) 2 mg Q4H PRN IVP severe pain 7-10 04/29/17 21:15 05/06/17 21:14 04/30/17 05:49 Nitroglycerin (Ntg) 0.4 mg Q5M X 3 DOSES PRN SL Prn Chest Pain 04/29/17 21:15 05/29/17 21:14 Ondansetron HCl (Zofran) 4 mg Q6H PRN IVP Nausea & Vomiting 04/29/17 21:15 05/29/17 21:14 04/30/17 09:13 Pantoprazole (Protonix) 40 mg DAILY IVP 05/01/17 09:00 05/31/17 08:59 Polyethylene Glycol (Miralax) 17 gm HSPRN PRN ORAL Constipation 04/29/17 21:15 05/29/17 21:14 Sodium (0.45%NS w/KCl 20mEq 1000ml) 1,000 ml @ 100 mls/hr Q10H IV 04/30/17 18:00 05/30/17 17:59 04/30/17 16:52 Temazepam (Restoril) 15 mg HSPRN PRN ORAL Insomnia 04/29/17 21:15 05/06/17 21:14 FRANCES BRADLEY Apr 30, 2017 19:38
[2017-04-30 21:00] VITALS: BP 150/101
[2017-04-30] MEDS ORDERED: Depakote ER 500mg tab ORAL SCH (21:00)
[2017-04-30] MEDS: Levemir Flexpen SUBQ SCH (21:14)
--- NOTE | 2017-04-30 21:45 | Consultation ---
DATE OF CONSULTATION: INFECTIOUS DISEASE CONSULTATION: REASON FOR CONSULTATION: Leukocytosis rule out sepsis. REQUESTING PHYSICIAN: Brandon Arana D.O. HISTORY OF PRESENT ILLNESS: The patient is a 42-year-old female, well known to us with history of poorly controlled diabetes and recurrent DKA, who had multiple admissions to [facility] with similar symptom presented today with again abdominal pain, nausea, and vomiting with elevated blood glucose and possible DKA. The patient was found to have leukocytosis, so I was consulted by the primary provider for antibiotics treatment and management and to rule out infectious etiology. The patient is psych and not cooperative, refused to provide any history. History was mainly obtained from the medical record. PAST MEDICAL HISTORY: Significant for diabetes and hypertension. PAST SURGICAL HISTORY: Negative. MEDICATIONS: Please refer to the medical record for further details. ALLERGIES: She has no known drug allergy. SOCIAL HISTORY: She had no recent drugs, tobacco, or alcohol. I believes she lives in assisting living or group home. REVIEW OF SYSTEMS: Unable to obtain. PHYSICAL EXAMINATION: VITAL SIGNS: Temperature 97 degrees, pulse 93, respirations 20, blood pressure 172/105, and saturating 100% on room air. GENERAL: The patient is a young female, lying in bed, comfortable, awake, alert, not in distress. HEENT: Normocephalic and atraumatic. Pupils reactive to light. Moist oral mucosa. No exudate. NECK: Supple. No lymphadenopathy. CARDIOVASCULAR: Regular rate and rhythm. No murmur or gallop. LUNGS: Clear bilaterally. No wheezing or rhonchi. ABDOMEN: Soft, nontender, and nondistended. Positive bowel sounds. No hepatosplenomegaly. EXTREMITIES: No edema or cyanosis. LABORATORY AND DIAGNOSTIC DATA: [place] [address]. Creatinine of 1.3. Toxicology screening positive for acetones in the blood. Urinalysis positive for occult blood, ketones, glucose, and protein. Imaging, chest x-ray showed no acute disease. ASSESSMENT AND RECOMMENDATION: 1. Leukocytosis rule out sepsis versus dehydration related. We will send blood culture and check chest x-ray to rule out pneumonia. We will monitor off antibiotics at this point since she is afebrile with no evidence of active infection. 2. Diabetic ketoacidosis due to poorly controlled diabetes. Recommend insulin treatment to achieve better glycemic control. Further management as per primary care. Recommend Endocrinology consult. 3. Acute renal failure due to dehydration and poor oral intake from diabetic ketoacidosis. Continue intravenous fluids. Monitor urine output. 4. Intractable nausea and vomiting due to diabetic ketoacidosis. Continue supportive care and hydration. 5. Diabetes, poorly controlled. Recommend tight glycemic control to keep blood glucose between 80 to 120. Choco Lozada M.D. DR: Jodi JOB#: [id number] CC:
--- NOTE | 2017-04-30 23:00 | History and Physical Report ---
DATE OF ADMISSION: 04/29/2017 Time: At 1:00 p.m. CONSULTANTS: 1. Rex Alejo M.D. 2. Jarek Vickers M.D. 3. Fred Paz M.D. 4. Patrice Melissa M.D. CHIEF COMPLAINT: Nausea, vomiting, diabetes, and gastroparesis. BRIEF HISTORY: This is a 42-year-old female with recurrent admission to [facility] for above-mentioned diagnoses, yesterday apparently started nausea and vomiting again, came to [facility] ER, diagnosed with above and admitted to medical floor. Currently, anxious, agitated in bed, and vomiting. PAST MEDICAL HISTORY: Encephalopathy, hypertension, diabetes, and seizure. PAST SURGICAL HISTORY: Unknown. MEDICATIONS: Include Depakote, Norvasc, Os-Osvaldo, heparin, NovoLog, DuoNeb, morphine, MiraLAX, Zofran, Restoril, Mylanta, and nitroglycerin. ALLERGIES: Denies. SOCIAL HISTORY: Positive smoking. No alcohol. No intravenous drug abuse. FAMILY HISTORY: Noncontributory. REVIEW OF SYSTEMS: Unavailable. PHYSICAL EXAMINATION: GENERAL: The patient is anxious, agitated in bed, oriented x2, in no acute distress. VITAL SIGNS: Temperature 97 degrees, pulse 93, respiratory rate 20, and blood pressure 132/105. CARDIOVASCULAR: No murmurs. LUNGS: Distant and clear. ABDOMEN: Bowel sound positive. Nontender and nondistended. EXTREMITIES: No cyanosis, clubbing, or edema. NEUROLOGIC: The patient moves all extremities, but slightly weak. LABORATORY AND DIAGNOSTIC DATA: Show white count 17, hemoglobin and hematocrit 11 and 32, and platelets 359,000. BMP shows chloride 90, creatinine 1.3, and glucose 297. Urinalysis shows 4+ glucose, 3+ protein, and 3+ ketones. Urine toxicology is positive for small acetone. ASSESSMENT: 1. Nausea. 2. Vomiting. 3. Diabetes. 4. Gastroparesis. 5. Hyperglycemia. 6. Leukocytosis. 7. Anemia. 8. Hypertension. 9. Encephalopathy. 10. Seizure. PLAN: 1. Continue pre-medications. 2. Blood pressure and blood sugar control. 3. Dietary followup. 4. NPO. 5. IV fluid. 6. Antiemetic as needed. 7. OT/PT and dietary evaluation. 8. CBC and BMP in the morning. 9. Dr. Alejo, Dr. Vickers, Dr. Paz, Dr. Melissa, Dr. Salinas, Dr. Metzger, and Dr. White to consult. We will continue to follow this patient. Brandon Arana D.O. DR: LEAH JOB#: [id number] CC:
--- NOTE | 2017-05-01 02:16 | Consultation ---
DATE OF CONSULTATION: CARDIOLOGY CONSULTATION CONSULTING PHYSICIAN: Rell Salinas M.D REFERRING PHYSICIAN: Brandon Arana D.O. REASON FOR CONSULTATION: Epigastric pain and hypertension. HISTORY OF PRESENT ILLNESS: The patient is a 42-year-old -[place] lady with history of hypertension and very labile diabetes as well as gastroparesis, was recently discharged from hospital presented to the emergency room complaining of abdominal pain, nausea, and vomiting again. The patient also is having 10/10 epigastric pain, which was sharp and nonradiating. The patient also had recurrent vomiting. The [facility] Cardiology consultation was obtained for further evaluation and management. At the time of my evaluation, the patient is sleepy, but earlier she was complaining of vomiting. REVIEW OF SYSTEMS: Was negative other what was mentioned in history of present illness. PAST MEDICAL HISTORY: Include: 1. Hypertension. 2. Diabetes. 3. Gastroparesis. 4. Noncompliant to medication. 5. History of recent diabetic ketoacidosis. PHYSICAL EXAMINATION: VITAL SIGNS: Blood pressure is 172/105, pulse is 93, respirations 20, and she is afebrile. HEAD AND NECK: Showed no JVD. LUNGS: Clear. CARDIOVASCULAR: Regular S1 and S2 with no gallop or murmur. ABDOMEN: Soft. EXTREMITIES: No pitting edema. LABORATORY DATA: [place] [address], hemoglobin 11.2, hematocrit 32.8, and platelet count of 359. Sodium 135, potassium 4.0, BUN of 14, creatinine 1.3, glucose of 297. ASSESSMENT AND PLAN: 1. Accelerated hypertension. Resume patient Norvasc 5 mg b.i.d. We will start the patient on low-dose LUCA inhibitor that would help to deal with proteinuria with the patient's diabetes as well. IV clonidine as well as intravenous hydralazine as patient may not be able to take oral. 2. Nausea and vomiting. 3. Uncontrolled diabetes. 4. Diabetic gastroparesis. 5. Noncompliance. Thank you very much, Dr. Arana for allowing me to participate in the care of this patient. Please do not hesitate to contact for any questions regarding my evaluation. Rell Salinas M.D. DR: MAX JOB#: [id number] CC:
[2017-05-01 04:00] VITALS: BP 125/81
[2017-05-01] MEDS: 1/2NS w/KCl 20mEq 1000ml 1,000 ML IV SCH (04:06)
[2017-05-01] MEDS: Metoclopramide 10mg/2ml Inj IVP SCH (06:00)
[2017-05-01] MEDS: NovoLOG Insulin Flexpen SUBQ SCH ×4 (06:09→11:47)
[2017-05-01 08:12] VITALS: BP 142/92
[2017-05-01] MEDS ORDERED: Pantoprazole Inj IVP SCH (09:00)
[2017-05-01] MEDS: Heparin 5000 units/ml inj SUBQ SCH (09:17)
[2017-05-01 09:18] VITALS: BP 142/92
[2017-05-01] MEDS: Levemir Flexpen SUBQ SCH (09:27)
--- NOTE | 2017-05-01 10:58 | GI Progress Note ---
Assessment/Plan Problems: (1) Anemia ICD Codes: D64.9 - Anemia, unspecified SNOMED: 570860556 (2) Intractable nausea and vomiting ICD Codes: R11.2 - Nausea with vomiting, unspecified SNOMED: 173355233, 990746230 (3) Diabetes ICD Codes: E11.9 - Type 2 diabetes mellitus without complications SNOMED: 50280817 (4) DKA (diabetic ketoacidoses) ICD Codes: E13.10 - Other specified diabetes mellitus with ketoacidosis without coma SNOMED: 42865310, 688965188 (5) Gastroparesis due to DM ICD Codes: E11.43 - Type 2 diabetes mellitus with diabetic autonomic (poly) neuropathy; K31.84 - Gastroparesis SNOMED: 12130551, 679889302 (6) Psychiatric disorder ICD Codes: F99 - Mental disorder, not otherwise specified SNOMED: 28979819, 690738003 Status: progressing Status Narrative Discussed with Dr. Vickers. Assessment/Plan Date of Service: 02/08/17 PROCEDURE: Upper endoscopy with biopsy. INDICATION: Esophagitis lung CT and esophageal wall thickening. S/P EGD SUMMARY FINDINGS: 1. Severe distal esophagitis with some white discharge only suspicious for candidal status post biopsy. >> negative for fungal organisms. Revealed sloughing inflamed necrotic tissue with neutrophils, see full pathology report. 2. Gastritis, status post biopsy. >> unremarkable HgA1C >> 9.0 elevated triglycerides iron panel unremarkable N/V resolved adv to ADA diet for lunch IV hydration + electrolyte replacement reglan 10mg for GI motility, consider low dose erythromycin if patient continues to vomit zofran prn DM mgmt monitor H&H, transfuse prn ppi abx fu labs Subjective Gastrointestinal/Abdominal: Reports: no symptoms Objective Last 24 Hour Vital Signs Date Time Temp Pulse Resp B/P Pulse Ox O2 Delivery O2 Flow Rate FiO2 05/01/17 09:18 80 142/92 05/01/17 08:12 97.7 80 18 142/92 99 Room Air 05/01/17 06:59 18 Room Air 05/01/17 04:00 98.1 78 20 125/81 97 Room Air 04/30/17 21:11 86 157/93 04/30/17 21:00 97.7 90 19 150/101 100 Room Air 04/30/17 19:00 86 18 Room Air 04/30/17 16:00 97.5 92 20 157/93 97 Room Air 04/30/17 12:28 161/77 04/30/17 12:00 97.0 93 20 172/105 100 Room Air Intake and Output 04/30/17 05/01/17 19:00 07:00 Intake Total 1300 ml 1100 ml Balance 1300 ml 1100 ml Intake Oral 200 ml IV Total 1100 ml 1100 ml # Voids 3 1 Height (Feet): 5 Height (Inches): 6.00 Weight (Pounds): 120 General Appearance: no apparent distress, alert Cardiovascular: normal rate Respiratory/Chest: normal breath sounds, no accessory muscle use Abdominal Exam: normal bowel sounds, non tender, soft Extremities: normal range of motion Muriel Serra N.P. May 01, 2017 10:58
--- NOTE | 2017-05-01 14:00 | Infectious Diseases Prog Note ---
Assessment/Plan Problems: (1) Leukocytosis Assessment & Plan: rule out sepsis, VS dehydration related , await blood culture (2) DKA (diabetic ketoacidoses) Assessment & Plan: recommend insulin treatment to achieve better glycemic control (3) CIERA (acute kidney injury) Assessment & Plan: suspect due to dehydration, continue IVF, monitor urine output (4) Intractable nausea and vomiting Assessment & Plan: due to DKA, continue supportive care (5) Diabetes Assessment & Plan: poorly controlled, recommend tight glycemic control to keep blood glucose between 80-120 Subjective Constitutional: Reports: no symptoms HEENT: Reports: no symptoms Respiratory: Reports: no symptoms Breasts: Reports: no symptoms Cardiovascular: Reports: no symptoms Gastrointestinal/Abdominal: Reports: no symptoms Genitourinary: Reports: no symptoms Neurologic: Reports: no symptoms Psychiatric: Reports: no symptoms Skin: Reports: no symptoms Endocrine: Reports: no symptoms Hematologic: Reports: no symptoms Allergies: Coded Allergies: No Known Allergies (Verified , NONE, 04/29/17) Objective Vital Signs Last 24 Hour Vital Signs Date Time Temp Pulse Resp B/P Pulse Ox O2 Delivery O2 Flow Rate FiO2 05/01/17 09:18 80 142/92 05/01/17 08:12 97.7 80 18 142/92 99 Room Air 05/01/17 06:59 18 Room Air 05/01/17 04:00 98.1 78 20 125/81 97 Room Air 04/30/17 21:11 86 157/93 04/30/17 21:00 97.7 90 19 150/101 100 Room Air 04/30/17 19:00 86 18 Room Air 04/30/17 16:00 97.5 92 20 157/93 97 Room Air Height (Feet): 5 Height (Inches): 6.00 Weight (Pounds): 120 General Appearance: WD/WN, no acute distress HEENT: normocephalic, atraumatic, anicteric, mucous membranes moist Respiratory/Chest: chest wall non-tender, lungs clear, normal breath sounds, no respiratory distress, no accessory muscle use Cardiovascular: normal peripheral pulses, normal rate, regular rhythm, no gallop/murmur Abdomen: normal bowel sounds, soft, non tender, no organomegaly, non distended , no mass Extremities: no cyanosis, no clubbing Skin: no rash, no lesions Choco Lozada M.D. May 01, 2017 14:00
--- NOTE | 2017-05-01 16:31 | Pulmonology Progress Note ---
Assessment/Plan Problems: (1) Intractable nausea and vomiting (2) Diabetes (3) Gastroparesis due to DM Assessment/Plan all noted sliding scale pt wants to sign ama. Subjective ROS Limited/Unobtainable: No Constitutional: Reports: no symptoms HEENT: Repors: no symptoms Allergies: Coded Allergies: No Known Allergies (Verified , NONE, 04/29/17) Objective Last 24 Hour Vital Signs Date Time Temp Pulse Resp B/P Pulse Ox O2 Delivery O2 Flow Rate FiO2 05/01/17 09:18 80 142/92 05/01/17 08:12 97.7 80 18 142/92 99 Room Air 05/01/17 06:59 18 Room Air 05/01/17 04:00 98.1 78 20 125/81 97 Room Air 04/30/17 21:11 86 157/93 04/30/17 21:00 97.7 90 19 150/101 100 Room Air 04/30/17 19:00 86 18 Room Air Intake and Output 04/30/17 05/01/17 19:00 07:00 Intake Total 1300 ml 1100 ml Balance 1300 ml 1100 ml Intake Oral 200 ml IV Total 1100 ml 1100 ml # Voids 3 1 General Appearance: WD/WN HEENT: normocephalic Respiratory/Chest: chest wall non-tender, lungs clear Cardiovascular: normal peripheral pulses Abdomen: normal bowel sounds, soft, non tender Extremities: no cyanosis Skin: no rash MILA LAINEZ May 01, 2017 16:31
--- NOTE | 2017-05-02 10:41 | Discharge Summary ---
Discharge Summary Hospital Course Date of Admission Apr 29, 2017 at 22:49 Date of Discharge May 01, 2017 at 13:40 Admitting Diagnosis hyperglycemia, gastroparesis HPI Amaya Wallis is a 42 year old female who was admitted on Apr 29, 2017 at 22:49 for Hyperglycemia/Gastroparesis Hospital Course [id number] Discharge Discharge Disposition [facility] Discharge Diagnoses: Estefania Balderas NP May 02, 2017 10:41
[2017-05-02] MEDS ORDERED: insulin (11:47)
--- NOTE | 2017-05-03 02:15 | Discharge Summary 2 SIG ---
DATE OF ADMISSION: 04/29/2017 DATE OF DISCHARGE: 05/01/2017 CONSULTANTS: 1. Fred Paz M.D. 2. Choco Lozada M.D. 3. Bertin Alejo M.D. 4. Rell Salinas M.D. 5. Jarek Vickers M.D. BRIEF HOSPITAL COURSE: The patient is a 42-year-old female with recurrent admissions who presented to the ED complaining of abdominal pain. The patient has history of diabetes, poorly controlled and gastroparesis. On evaluation at ED, labs showed leukocytosis. WBC was elevated to 17. Glucose was 297. Anion gap was elevated with positive ketones. The patient was admitted to medical floor, and was started on IV hydration, and was given Levemir and NovoLog, and was placed on diabetic diet, and was followed by Dr. Alejo. Dr. Vickers was also consulted for evaluation of abdominal pain. The patient was initially placed on NPO and was given symptomatic treatment with Reglan for GI motility and Zofran p.r.n. She came in with elevated blood pressure and was resumed on Norvasc 5 mg and was started on low-dose LUCA inhibitor. Microbiology, blood culture did not isolate any growth. Diet was advanced. Full treatment was not carried out as the patient signed out against medical advice. FINAL DIAGNOSES: 1. Diabetes ketoacidosis. 2. Diabetes mellitus out of control. 3. Gastroparesis due to diabetes mellitus. 4. Acute kidney injury. 5. Hypertension. 6. Seizure disorder. 7. Intractable nausea and vomiting due to diabetic ketoacidosis. 8. Noncompliance as the patient signed out against medical advice. Brandon Arana D.O. I have been assigned to dictate discharge summary on this account and I was not involved in the patient's management. Estefania Balderas N.P. DR: FRAN JOB#: [id number] CC:
== END 2017-05-01 13:40 | disposition left against medical advice (07) | DRG 420 ==
LOC: EDBD 19:31 → EMR 20:06 → 4E 22:49 → EDBEDREQ 04-30 00:05 → 4E 04-30 01:00
DX: E13.10 Other specified diabetes mellitus with ketoacidosis without coma (principal); G93.40 Encephalopathy, unspecified; N17.9 Acute kidney failure, unspecified; E11.43 Type 2 diabetes mellitus with diabetic autonomic (poly)neuropathy; K31.84 Gastroparesis; I10 Essential (primary) hypertension; D64.9 Anemia, unspecified; E86.0 Dehydration; F17.200 Nicotine dependence, unspecified, uncomplicated; G40.909 Epilepsy, unspecified, not intractable, without status epilepticus; Z91.14 Patient's other noncompliance with medication regimen
CPT/HCPCS: 36415; 71010; 80053; 81003; 82009; 82962; 83690; 85025; 87040; 94664; 97803; J1815; J2405; J2765; S5561

== ENCOUNTER 2017-05-02 11:54 | Inpatient (IN) | payer OTHER ==
[~2017-05-02] VITALS: Ht 165.1 cm; Wt 59.0 kg
[~2017-05-02 11:54] MED LIST changes: +insulin
[2017-05-02 12:09] VITALS: BP 140/76
[2017-05-02 12:44] LABS: BASOPHILS % (AUTO) 0.5 % (0.0-2.0); EOSINOPHILS % (AUTO) 1.1 % (0.0-3.0); LYMPHOCYTES % (AUTO) 11.7 % (20.0-45.0); MEAN CORPUSCULAR HEMOGLOBIN 29.3 PG (27.0-31.0); MEAN CORPUSCULAR HGB CONC 31.4 G/DL (32.0-36.0); MEAN CORPUSCULAR VOLUME 93 FL (80-99); MEAN PLATELET VOLUME 7.7 FL (6.5-10.1); NEUTROPHILS % (AUTO) 82.7 % (45.0-75.0); PLATELET COUNT 339 K/UL (150-450); WHITE BLOOD COUNT 9.4 K/UL (4.8-10.8)
[2017-05-02 12:51] LABS: INR 0.9 (0.9-1.1); PROTHROMBIN TIME 9.7 SEC (9.30-11.50)
[2017-05-02 12:57] LABS: CALCIUM 9.8 mg/dL (8.6-10.2); CREATININE 1.3 mg/dL (0.5-0.9); GLOMERULAR FILTRATION RATE 54.9 mL/min (>60); POTASSIUM 4.2 mEQ/L (3.4-4.9); TOTAL PROTEIN 8.7 g/dL (6.6-8.7); TROPONIN I < 0.30 ng/mL (<=0.30)
[2017-05-02 13:20] VITALS: BP 149/95
[2017-05-02 14:02] LABS: APPEARANCE,URINE CLEAR; KETONES,URINE 3+ (NEGATIVE); LEUKOCYTE ESTERASE ,URINE 3+ (NEGATIVE); NITRITE,URINE NEGATIVE (NEGATIVE); PH,URINE 6 (4.5-8.0); PROTEIN,URINE 2+ (NEGATIVE); UROBILINOGEN,URINE NORMAL MG/DL (0.0-1.0)
[2017-05-02 14:12] LABS: BACTERIA,URINE FEW /HPF; SQUAMOUS EPITHELIAL CELL,UR FEW /LPF (NONE/OCC); WBC,URINE 15-20 /HPF (0 - 2)
--- NOTE | 2017-05-02 15:55 | Emergency Room Report ---
History of Present Illness General Chief Complaint: Abdominal Pain Source: Patient Present Illness HPI This patient has a history of gastroparesis diabetes. The patient states that she's had intractable vomiting and diffuse abdominal pain. She states this is similar to her previous episodes of gastroparesis. She denies any new symptoms. She denies fever or chills. She denies chest pain or shortness of breath. She has no other complaints. Allergies: Coded Allergies: No Known Allergies (Verified , NONE, 04/29/17) Patient History Past Medical History: see triage record, DM, HTN, MD, CAD, CHF, CVA/TIA, seizures, psych hx, renal disease Social History: Denies: alcohol use, drug use, smoking Last Menstrual Period: mar, 2017 Now: No Reviewed Nursing Documentation: PMH: Agreed, PSxH: Agreed Nursing Documentation-PMH Hx Cardiac Problems: Yes Hx Hypertension: Yes Hx Diabetes: Yes Hx Cancer: No Hx Gastrointestinal Problems: Yes - pancreatitis Hx Neurological Problems: Yes Hx Cerebrovascular Accident: Yes Hx Seizures: Yes Hx Vertigo: Yes Hx Dizziness: Yes Hx Headaches: Yes Hx Weakness: Yes Hx Fatigue: Yes Hx Neurologic Surgery: No Review of Systems All Other Systems: negative except mentioned in HPI Physical Exam Vital Signs Date Time Temp Pulse Resp B/P Pulse Ox O2 Delivery O2 Flow Rate FiO2 05/02/17 11:43 98.2 80 16 140/76 99 Room Air Sp02 EP Interpretation: reviewed, normal General Appearance: no apparent distress, alert, GCS 15, non-toxic Head: normocephalic, atraumatic Eyes: bilateral eye PERRL, bilateral eye normal inspection ENT: hearing grossly normal, normal pharynx, no angioedema, normal voice Neck: full range of motion, supple/symm/no masses Respiratory: chest non-tender, lungs clear, normal breath sounds, speaking full sentences Cardiovascular #1: regular rate, rhythm, no edema Gastrointestinal: normal bowel sounds, non tender, soft, non-distended, no guarding, no rebound Rectal: deferred Musculoskeletal: back normal, gait/station normal, normal range of motion, non- tender Neurologic: alert, oriented x3, responsive, motor strength/tone normal, sensory intact, speech normal Psychiatric: judgement/insight normal, memory normal, mood/affect normal, no suicidal/homicidal ideation Skin: normal color, no rash, warm/dry, well hydrated Medical Decision Making Diagnostic Impression: Primary Impression: Intractable nausea and vomiting Additional Impressions: Uncontrolled diabetes mellitus UTI (urinary tract infection) ER Course This patient has a history of diabetes and diffuse gastroparesis. She presents with the same symptoms. She also has an elevated blood sugar over 300 uncontrolled diabetes. She is unable to tolerate oral and he diabetes medications. She is has a urinary tract infection. She is given broad- spectrum antibiotics. She's also given IV fluids and antinausea medications. She is admitted for further evaluation and treatment. Labs Test 05/02/17 12:35 05/02/17 13:40 White Blood Count 9.4 K/UL (4.8-10.8) Red Blood Count 4.30 M/UL (4.20-5.40) Hemoglobin 12.6 G/DL (12.0-16.0) Hematocrit 40.1 % (37.0-47.0) Mean Corpuscular Volume 93 FL (80-99) Mean Corpuscular Hemoglobin 29.3 PG (27.0-31.0) Mean Corpuscular Hemoglobin Concent 31.4 G/DL (32.0-36.0) Red Cell Distribution Width 14.0 % (11.6-14.8) Platelet Count 339 K/UL (150-450) Mean Platelet Volume 7.7 FL (6.5-10.1) Neutrophils (%) (Auto) 82.7 % (45.0-75.0) Lymphocytes (%) (Auto) 11.7 % (20.0-45.0) Monocytes (%) (Auto) 4.0 % (1.0-10.0) Eosinophils (%) (Auto) 1.1 % (0.0-3.0) Basophils (%) (Auto) 0.5 % (0.0-2.0) Prothrombin Time 9.7 SEC (9.30-11.50) Prothromb Time International Ratio 0.9 (0.9-1.1) Activated Partial Thromboplast Time 26 SEC (23-33) Sodium Level 136 mEQ/L (135-145) Potassium Level 4.2 mEQ/L (3.4-4.9) Chloride Level 90 mEQ/L (98-107) Carbon Dioxide Level 22 mEQ/L (20-30) Anion Gap 24 (5-15) Blood Urea Nitrogen 10 mg/dL (7-23) Creatinine 1.3 mg/dL (0.5-0.9) Estimat Glomerular Filtration Rate 54.9 mL/min (>60) Glucose Level 359 mg/dL (74-106) Calcium Level 9.8 mg/dL (8.6-10.2) Total Bilirubin 0.6 mg/dL (0.0-1.2) Aspartate Amino Transf (AST/SGOT) 21 U/L (5-40) Alanine Aminotransferase (ALT/SGPT) 13 U/L (3-33) Alkaline Phosphatase 151 U/L (35-104) Troponin I < 0.30 ng/mL (<=0.30) Total Protein 8.7 g/dL (6.6-8.7) Albumin 4.5 g/dL (3.5-5.2) Globulin 4.2 g/dL Albumin/Globulin Ratio 1.0 (1.0-2.7) Lipase 7 U/L (< 60) Urine Color Pale yellow Urine Appearance Clear Urine pH 6 (4.5-8.0) Urine Specific [place] 1.010 (1.005-1.035) Urine Protein 2+ (NEGATIVE) Urine Glucose (UA) 4+ (NEGATIVE) Urine Ketones 3+ (NEGATIVE) Urine Occult Blood 2+ (NEGATIVE) Urine Nitrite Negative (NEGATIVE) Urine Bilirubin Negative (NEGATIVE) Urine Urobilinogen Normal MG/DL (0.0-1.0) Urine Leukocyte Esterase 3+ (NEGATIVE) Urine RBC 5-10 /HPF (0 - 2) Urine WBC 15-20 /HPF (0 - 2) Urine Squamous Epithelial Cells Few /LPF (NONE/OCC) Urine Bacteria Few /HPF (NONE) Urine HCG, Qualitative Negative Chest X-Ray Diagnostic Results Chest X-Ray Ordered: No Last Vital Signs Date Time Temp Pulse Resp B/P Pulse Ox O2 Delivery O2 Flow Rate FiO2 05/02/17 13:20 98 16 149/95 99 Room Air 05/02/17 12:09 98.2 Disposition: ADMITTED INPATIENT Condition: Stable Referrals: [facility],REFERRING (PCP) MIRANDA DUKES D.O. May 02, 2017 15:55
[2017-05-02] MEDS ORDERED: Metoclopramide 10mg/2ml Inj IVP ONE (16:15)
[2017-05-02] MEDS ORDERED: DiphenhydrAMINE 50mg/ml Inj IVP ONE (16:15)
[2017-05-02 16:23] VITALS: BP 145/86
[2017-05-02 17:00] VITALS: BP_SYST 158; BP_SYST 162; BP_DIAS 83; BP_DIAS 87
[2017-05-02] MEDS ORDERED: DuoNeb 0.5-3(2.5)mg/3ml neb HHN PRN (18:00)
[2017-05-02] MEDS ORDERED: Mylanta II UD 30ml ORAL PRN (18:00)
[2017-05-02] MEDS ORDERED: Miralax 17gm pkt ORAL PRN (18:00)
[2017-05-02] MEDS ORDERED: Morphine Sulfate 2mg/ml Inj IVP PRN (18:00)
[2017-05-02] MEDS ORDERED: Ketorolac 30mg Inj IV PRN (18:00)
[2017-05-02] MEDS ORDERED: Nitroglycerin Subl 0.4mg tab (Bottle Of 25) SL PRN (18:00)
[2017-05-02 20:00] VITALS: BP 146/91
[2017-05-02] MEDS: Depakote ER 500mg tab ORAL SCH ×2 (21:00→21:29)
[2017-05-02] MEDS: Magnesium Oxide 400mg tab ORAL SCH ×2 (21:00→21:29)
[2017-05-02] MEDS: NovoLOG Insulin Flexpen SUBQ SCH (21:35)
[2017-05-02] MEDS: Heparin 5000 units/ml inj SUBQ SCH (21:43)
[2017-05-02] MEDS: Levemir Flexpen SUBQ SCH (23:52)
[2017-05-03] MEDS: NovoLOG Insulin Flexpen SUBQ SCH ×7 (06:30→20:20)
[2017-05-03] MEDS ORDERED: Metoclopramide 10mg/2ml Inj IVP PRN (08:00)
--- NOTE | 2017-05-03 08:00 | General Progress Note ---
Assessment/Plan Problem List: (1) Esophagitis ICD Codes: K20.9 - Esophagitis, unspecified SNOMED: 08271948 (2) Intractable nausea and vomiting ICD Codes: R11.2 - Nausea with vomiting, unspecified SNOMED: 816155301, 931696833 (3) Uncontrolled diabetes mellitus ICD Codes: E11.65 - Type 2 diabetes mellitus with hyperglycemia SNOMED: 919197988 (4) Anemia ICD Codes: D64.9 - Anemia, unspecified SNOMED: 395054048 (5) Gastroparesis due to DM ICD Codes: E11.43 - Type 2 diabetes mellitus with diabetic autonomic (poly) neuropathy; K31.84 - Gastroparesis SNOMED: 52611927, 928427233 (6) Diabetes ICD Codes: E11.9 - Type 2 diabetes mellitus without complications SNOMED: 98309508 (7) HTN (hypertension) ICD Codes: I10 - Essential (primary) hypertension SNOMED: 18738864 Assessment/Plan start reglan IV ppi IV advance diet DM control Subjective ROS Limited/Unobtainable: Yes Allergies: Coded Allergies: No Known Allergies (Verified , NONE, 04/29/17) Subjective no event Objective Last 24 Hour Vital Signs Date Time Temp Pulse Resp B/P Pulse Ox O2 Delivery O2 Flow Rate FiO2 05/03/17 04:00 05/02/17 21:00 95 146/91 05/02/17 20:00 95 17 146/91 99 Room Air 05/02/17 18:03 98.2 98 16 158/83 99 Room Air 05/02/17 17:00 98 16 158/83 99 Room Air 05/02/17 16:23 88 16 145/86 99 Room Air 05/02/17 13:20 98 16 149/95 99 Room Air 05/02/17 12:09 98.2 16 140/76 99 Room Air 05/02/17 11:43 98.2 80 16 140/76 99 Room Air Intake and Output 05/02/17 05/03/17 19:00 07:00 Intake Total 2000 ml 900 ml Balance 2000 ml 900 ml Intake Oral 0 ml IV Total 2000 ml 900 ml # Voids 3 Laboratory Tests 05/02/17 12:35: White Blood Count 9.4, Red Blood Count 4.30, Hemoglobin 12.6, Hematocrit 40.1, Mean Corpuscular Volume 93, Mean Corpuscular Hemoglobin 29.3, Mean Corpuscular Hemoglobin Concent 31.4L, Red Cell Distribution Width 14.0, Platelet Count 339, Mean Platelet Volume 7.7, Neutrophils (%) (Auto) 82.7H, Lymphocytes (%) (Auto) 11.7L, Monocytes (%) (Auto) 4.0, Eosinophils (%) (Auto) 1.1, Basophils (%) (Auto ) 0.5, Prothrombin Time 9.7, Prothromb Time International Ratio 0.9, Activated Partial Thromboplast Time 26, Sodium Level 136, Potassium Level 4.2, Chloride Level 90L, Carbon Dioxide Level 22, Anion Gap 24H, Blood Urea Nitrogen 10, Creatinine 1.3H, Estimat Glomerular Filtration Rate 54.9, Glucose Level 359H, Calcium Level 9.8, Total Bilirubin 0.6, Aspartate Amino Transf (AST/SGOT) 21, Alanine Aminotransferase (ALT/SGPT) 13, Alkaline Phosphatase 151H, Troponin I < 0.30, Total Protein 8.7, Albumin 4.5, Globulin 4.2, Albumin/Globulin Ratio 1.0, Lipase 7 05/02/17 13:40: Urine Color Pale yellow, Urine Appearance Clear, Urine pH 6, Urine Specific [place] 1.010, Urine Protein 2+H, Urine Glucose (UA) 4+H, Urine Ketones 3+H, Urine Occult Blood 2+H, Urine Nitrite Negative, Urine Bilirubin Negative, Urine Urobilinogen Normal, Urine Leukocyte Esterase 3+H, Urine RBC 5-10H, Urine WBC 15 -20H, Urine Squamous Epithelial Cells Few, Urine Bacteria Few, Urine HCG, Qualitative Negative Height (Feet): 5 Height (Inches): 5.00 Weight (Pounds): 130 General Appearance: alert EENT: normal ENT inspection Neck: supple Cardiovascular: normal rate Respiratory/Chest: lungs clear Abdomen: normal bowel sounds, non tender, soft Extremities: non-tender QUAN BAZAN May 03, 2017 08:00
[2017-05-03] MEDS: Levemir Flexpen SUBQ SCH ×2 (09:00→17:18)
[2017-05-03] MEDS: Magnesium Oxide 400mg tab ORAL SCH ×3 (09:46→17:18)
[2017-05-03] MEDS: Heparin 5000 units/ml inj SUBQ SCH ×2 (09:48→20:19)
[2017-05-03] MEDS ORDERED: Heparin 2000 units/Ns 1000ml INJ PRN (12:00)
[2017-05-03] MEDS ORDERED: Lidocaine 1% Plain 30 ml INJ PRN (12:00)
[2017-05-03] MEDS ORDERED: Sodium Bicarbonate 4% 2.4meq/5ml vial INJ PRN (12:00)
--- NOTE | 2017-05-03 13:41 | Infectious Diseases Prog Note ---
Assessment/Plan Problems: (1) Localized swelling on right hand Assessment & Plan: due to infiltrated iv line, recommend cold pads, no need for antibiotics for it keep arm elevated (2) ARF (acute renal failure) Assessment & Plan: suspect dehydration, recommend ivf for hydration , and urine output monitor . (3) Psychiatric disorder Assessment & Plan: recommend psych eval for medications adjustment to control her disease (4) Uncontrolled diabetes mellitus Assessment & Plan: recommend tight glycemic control to keep blood glucose between 80-120 Subjective Allergies: Coded Allergies: No Known Allergies (Verified , NONE, 04/29/17) Objective Vital Signs Last 24 Hour Vital Signs Date Time Temp Pulse Resp B/P Pulse Ox O2 Delivery O2 Flow Rate FiO2 05/03/17 09:46 96 146/91 05/03/17 07:25 96 18 Room Air 21 05/03/17 04:00 05/02/17 21:00 95 146/91 05/02/17 20:00 95 17 146/91 99 Room Air 05/02/17 18:03 98.2 98 16 158/83 99 Room Air 05/02/17 17:00 98 16 158/83 99 Room Air 05/02/17 16:23 88 16 145/86 99 Room Air Height (Feet): 5 Height (Inches): 5.00 Weight (Pounds): 130 Microbiology Date/Time Source Procedure Growth Status 05/02/17 13:40 Urine,Clean Catch Urine Culture - Preliminary Strep Species, Beta Hemolytic Resulted Laboratory Tests Test 05/02/17 13:40 Urine Color Pale yellow Urine Appearance Clear Urine pH 6 (4.5-8.0) Urine Specific [place] 1.010 (1.005-1.035) Urine Protein 2+ (NEGATIVE) H Urine Glucose (UA) 4+ (NEGATIVE) H Urine Ketones 3+ (NEGATIVE) H Urine Occult Blood 2+ (NEGATIVE) H Urine Nitrite Negative (NEGATIVE) Urine Bilirubin Negative (NEGATIVE) Urine Urobilinogen Normal MG/DL (0.0-1.0) Urine Leukocyte Esterase 3+ (NEGATIVE) H Urine RBC 5-10 /HPF (0 - 2) H Urine WBC 15-20 /HPF (0 - 2) H Urine Squamous Epithelial Cells Few /LPF (NONE/OCC) Urine Bacteria Few /HPF (NONE) Urine HCG, Qualitative Negative Current Medications Medications (Trade) Dose Ordered Sig/Mateo Route PRN Reason Start Time Stop Time Status Last Admin Dose Admin Acetaminophen (Tylenol) 650 mg Q4H PRN ORAL fever 05/02/17 18:00 06/01/17 17:59 Al Hydroxide/Mg Hydroxide (Mylanta II) 30 ml Q6H PRN ORAL dyspepsia 05/02/17 18:00 06/01/17 17:59 Albuterol/ Ipratropium (DuoNeb 0.5-3(2.5)mg/3ml) 3 ml EVERY 4 HOURS PRN HHN Shortness of Breath 05/02/17 18:00 05/07/17 17:59 Amlodipine Besylate (Norvasc) 5 mg Q12HR ORAL 05/02/17 21:00 06/01/17 20:59 05/03/17 09:46 Calcium Carbonate (Os-Osvaldo) 1,250 mg DAILY ORAL 05/03/17 09:00 06/02/17 08:59 05/03/17 09:46 Chlorhexidine Gluconate (Mara-Hex 2%) 1 applic DAILY TOPIC 05/05/17 18:00 06/04/17 17:59 Clonidine HCl (Catapres) 0.1 mg EVERY 4 HOURS PRN ORAL sbp more than 160 05/02/17 18:00 06/01/17 17:59 Dextrose (Dextrose 50%) STAT PRN IV Hypoglycemia 05/02/17 18:00 06/01/17 17:59 Divalproex Sodium (Depakote ER) 1,000 mg QHS ORAL 05/02/17 21:00 06/01/17 20:59 Heparin Sodium (Porcine) (Heparin 5000 units/ml) 5,000 units EVERY 12 HOURS SUBQ 05/02/17 21:00 06/01/17 20:59 05/03/17 09:48 Heparin Sodium/ Sodium Chloride (Heparin 2000 units/Ns 1000ml premix) 2,000 unit ONCE PRN INJ PICC PLACEMENT 05/03/17 12:00 05/05/17 23:59 Insulin Aspart (NovoLOG) BEFORE MEALS AND HS SUBQ 05/02/17 21:00 06/01/17 20:59 05/02/17 21:35 Insulin Aspart (NovoLOG) 5 units NOVOTIAC SUBQ 05/03/17 06:30 06/02/17 06:29 Insulin Detemir (Levemir) 8 units BID SUBQ 05/02/17 23:30 06/01/17 23:29 05/02/17 23:52 Ketorolac Tromethamine (Toradol 30mg) 30 mg EVERY 6 HOURS PRN IV moderate pain 4-6 05/02/17 18:00 05/07/17 17:59 Lidocaine HCl (Xylocaine 1% 30ml) 30 ml ONCE PRN INJ PICC PLACEMENT 05/03/17 12:00 05/05/17 23:59 Magnesium Oxide (Mag-Ox 400mg) 400 mg TID ORAL 05/02/17 21:00 06/01/17 20:59 05/03/17 13:23 Metoclopramide HCl (Reglan) 10 mg Q6H PRN IVP Nausea & Vomiting 05/03/17 08:00 06/02/17 07:59 Morphine Sulfate (Morphine Sulfate) 2 mg EVERY 4 HOURS PRN IVP severe pain 7-10 05/02/17 18:00 05/09/17 17:59 Nitroglycerin (Ntg) 0.4 mg Q5M X 3 DOSES PRN SL Prn Chest Pain 05/02/17 18:00 06/01/17 17:59 Ondansetron HCl (Zofran) 4 mg Q6H PRN IVP Nausea & Vomiting 05/02/17 18:00 06/01/17 17:59 05/03/17 06:22 Pantoprazole 40 mg 40 mg DAILY ORAL 05/03/17 09:00 06/02/17 08:59 05/03/17 09:46 Polyethylene Glycol (Miralax) 17 gm HSPRN PRN ORAL Constipation 05/02/17 18:00 06/01/17 17:59 Sodium Bicarbonate (Sodium Bicarbonate 4%) 1 ml ONCE PRN INJ PICC PLACEMENT 05/03/17 12:00 05/05/17 23:59 Sodium Chloride (Sodium Chloride 1000ml bag) 1,000 ml @ 100 mls/hr Q10H IVLG 05/02/17 18:30 06/01/17 18:29 05/03/17 04:32 Temazepam (Restoril) 15 mg HSPRN PRN ORAL Insomnia 05/02/17 18:00 05/09/17 17:59 Choco Lozada M.D. May 03, 2017 13:41
[2017-05-03 15:03] VITALS: BP 155/93
--- NOTE | 2017-05-03 16:14 | Cardiac Electrophysiology PN ---
Subjective Subjective [id number] Objective Last 24 Hour Vital Signs Date Time Temp Pulse Resp B/P Pulse Ox O2 Delivery O2 Flow Rate FiO2 05/03/17 15:03 88 17 155/93 99 Room Air 05/03/17 09:46 96 146/91 05/03/17 07:25 96 18 Room Air 21 05/03/17 04:00 05/02/17 21:00 95 146/91 05/02/17 20:00 95 17 146/91 99 Room Air 05/02/17 18:03 98.2 98 16 158/83 99 Room Air 05/02/17 17:00 98 16 158/83 99 Room Air 05/02/17 16:23 88 16 145/86 99 Room Air Intake and Output 05/02/17 05/03/17 19:00 07:00 Intake Total 2000 ml 900 ml Balance 2000 ml 900 ml Intake Oral 0 ml IV Total 2000 ml 900 ml # Voids 3 Microbiology Date/Time Source Procedure Growth Status 05/02/17 13:40 Urine,Clean Catch Urine Culture - Preliminary Strep Species, Beta Hemolytic Resulted MARCIA PINTO May 03, 2017 16:14
[2017-05-03 20:00] VITALS: BP 151/100
[2017-05-03] MEDS: Depakote ER 500mg tab ORAL SCH (20:18)
[2017-05-03 21:10] VITALS: BP 145/97
--- NOTE | 2017-05-03 22:47 | Pulmonology Progress Note ---
Assessment/Plan Problems: (1) Hyperglycemia (2) Non compliance with medical treatment (3) Psychiatric disorder (4) HTN (hypertension) (5) Intractable nausea and vomiting Assessment/Plan refusing levemir non compliant with meds psych evaluation Subjective ROS Limited/Unobtainable: No Allergies: Coded Allergies: No Known Allergies (Verified , NONE, 04/29/17) Objective Last 24 Hour Vital Signs Date Time Temp Pulse Resp B/P Pulse Ox O2 Delivery O2 Flow Rate FiO2 05/03/17 21:10 89 145/97 05/03/17 20:01 88 16 Room Air 21 05/03/17 20:00 98.1 91 20 151/100 100 Room Air 05/03/17 15:03 88 17 155/93 99 Room Air 05/03/17 09:46 96 146/91 05/03/17 07:25 96 18 Room Air 21 05/03/17 04:00 Intake and Output 05/02/17 05/03/17 19:00 07:00 Intake Total 2000 ml 900 ml Balance 2000 ml 900 ml Intake Oral 0 ml IV Total 2000 ml 900 ml # Voids 3 General Appearance: WD/WN HEENT: normocephalic Respiratory/Chest: chest wall non-tender, lungs clear Breasts: no masses Cardiovascular: normal peripheral pulses, no JVD Abdomen: normal bowel sounds Extremities: no cyanosis Microbiology Date/Time Source Procedure Growth Status 05/02/17 13:40 Urine,Clean Catch Urine Culture - Preliminary Strep Species, Beta Hemolytic Resulted Current Medications Medications (Trade) Dose Ordered Sig/Mateo Route PRN Reason Start Time Stop Time Status Last Admin Dose Admin Acetaminophen (Tylenol) 650 mg Q4H PRN ORAL fever 05/02/17 18:00 06/01/17 17:59 Al Hydroxide/Mg Hydroxide (Mylanta II) 30 ml Q6H PRN ORAL dyspepsia 05/02/17 18:00 06/01/17 17:59 Albuterol/ Ipratropium (DuoNeb 0.5-3(2.5)mg/3ml) 3 ml EVERY 4 HOURS PRN HHN Shortness of Breath 05/02/17 18:00 05/07/17 17:59 Calcium Carbonate (Os-Osvaldo) 1,250 mg DAILY ORAL 05/03/17 09:00 06/02/17 08:59 05/03/17 09:46 Chlorhexidine Gluconate (Mara-Hex 2%) 1 applic DAILY TOPIC 05/05/17 18:00 06/04/17 17:59 Clonidine HCl (Catapres) 0.1 mg EVERY 4 HOURS PRN ORAL sbp more than 160 05/02/17 18:00 06/01/17 17:59 Dextrose (Dextrose 50%) STAT PRN IV Hypoglycemia 05/02/17 18:00 06/01/17 17:59 Divalproex Sodium (Depakote ER) 1,000 mg QHS ORAL 05/02/17 21:00 06/01/17 20:59 05/03/17 20:18 Heparin Sodium (Porcine) (Heparin 5000 units/ml) 5,000 units EVERY 12 HOURS SUBQ 05/02/17 21:00 06/01/17 20:59 05/03/17 20:19 Heparin Sodium/ Sodium Chloride (Heparin 2000 units/Ns 1000ml premix) 2,000 unit ONCE PRN INJ PICC PLACEMENT 05/03/17 12:00 05/05/17 23:59 Insulin Aspart (NovoLOG) BEFORE MEALS AND HS SUBQ 05/02/17 21:00 06/01/17 20:59 05/03/17 20:20 Insulin Aspart (NovoLOG) 5 units NOVOTIAC SUBQ 05/03/17 06:30 06/02/17 06:29 05/03/17 16:33 Insulin Detemir (Levemir) 8 units BID SUBQ 05/02/17 23:30 06/01/17 23:29 05/02/17 23:52 Ketorolac Tromethamine (Toradol 30mg) 30 mg EVERY 6 HOURS PRN IV moderate pain 4-6 05/02/17 18:00 05/07/17 17:59 Lidocaine HCl (Xylocaine 1% 30ml) 30 ml ONCE PRN INJ PICC PLACEMENT 05/03/17 12:00 05/05/17 23:59 Magnesium Oxide (Mag-Ox 400mg) 400 mg TID ORAL 05/02/17 21:00 06/01/17 20:59 05/03/17 17:18 Metoclopramide HCl (Reglan) 10 mg Q6H PRN IVP Nausea & Vomiting 05/03/17 08:00 06/02/17 07:59 Morphine Sulfate (Morphine Sulfate) 2 mg EVERY 4 HOURS PRN IVP severe pain 705/02/17 18:00 05/09/17 17:59 Nitroglycerin (Ntg) 0.4 mg Q5M X 3 DOSES PRN SL Prn Chest Pain 05/02/17 18:00 06/01/17 17:59 Ondansetron HCl (Zofran) 4 mg Q6H PRN IVP Nausea & Vomiting 05/02/17 18:00 06/01/17 17:59 05/03/17 06:22 Pantoprazole 40 mg 40 mg DAILY ORAL 05/03/17 09:00 06/02/17 08:59 05/03/17 09:46 Polyethylene Glycol (Miralax) 17 gm HSPRN PRN ORAL Constipation 05/02/17 18:00 06/01/17 17:59 Sodium Bicarbonate (Sodium Bicarbonate 4%) 1 ml ONCE PRN INJ PICC PLACEMENT 05/03/17 12:00 05/05/17 23:59 Sodium Chloride (Sodium Chloride 1000ml bag) 1,000 ml @ 100 mls/hr Q10H IVLG 05/02/17 18:30 06/01/17 18:29 05/03/17 04:32 Temazepam (Restoril) 15 mg HSPRN PRN ORAL Insomnia 05/02/17 18:00 05/09/17 17:59 05/03/17 20:20 MILA LAINEZ May 03, 2017 22:47
--- NOTE | 2017-05-03 23:00 | Consultation ---
DATE OF CONSULTATION: 05/03/2017 INFECTIOUS DISEASE CONSULTATION CONSULTING PHYSICIAN: Choco Lozada M.D. REQUESTING PHYSICIAN: Brandon Arana D.O. REASON FOR CONSULTATION: Right hand swelling, recommendation for antibiotics therapy. HISTORY OF PRESENT ILLNESS: The patient is a 42-year-old female with psychiatric disorder and poorly controlled diabetes, who had multiple admissions to [facility] due to poorly controlled diabetes and dehydration, who was discharged the day before yesterday and returned back to the emergency room with abdominal pain. The patient's vitals were okay. She had a white count of 9.4. The patient was found to have dehydration and acute renal failure. Urine culture was done recently showed a small colony of Streptococcus species, so she was admitted to the hospital for evaluation and management and I was consulted by the primary provider for antibiotics recommendation and further evaluation. As of note, the patient is psych, could not provide any history. History was mainly obtained from the medical record. PAST MEDICAL HISTORY: Significant for coronary artery disease, hypertension, diabetes, GERD, seizure disorder, headache, weakness, fatigue, and psych disorder. PAST SURGICAL HISTORY: Unable to obtain. ALLERGIES: She has no known drug allergy as per the chart. MEDICATIONS: She is on multiple diabetes medicines. For further details, please refer to the medical record. FAMILY HISTORY: Unable to obtain. SOCIAL HISTORY: Unable to obtain. PHYSICAL EXAMINATION: GENERAL: The patient is a young female, banging her head against the bed , alert, and follow commands. VITAL SIGNS: Temperature undocumented today, the patient refused, pulse 96, blood pressure 146/91, and no O2 saturation documented. HEENT: Normocephalic and atraumatic. Pupils are reactive to light. Moist oral mucosa. No exudate. NECK: Supple. No lymphadenopathy. CARDIOVASCULAR: Regular rate and rhythm. No murmur. LUNGS: Clear bilaterally. No wheezing or rhonchi. ABDOMEN: Soft, nontender, and nondistended. Positive bowel sounds. No hepatosplenomegaly or ascites. EXTREMITIES: She had right hand swelling at the previous intravenous line with no redness, erythema, or warmth. LABORATORY AND DIAGNOSTIC DATA: Labs showed white count of 9.4, hemoglobin of 12.6, and platelet count of 339,000. BUN of 10 and creatinine of 1.3. Urinalysis showed +3 leukocyte esterase, 5 to 10 red blood cells, 15 to 20 white cell count, and few bacteria. Microbiology: Urine culture on 05/02/2017 grew 40,000 to 50,000 colonies of Streptococcus species, beta-hemolytic. Imaging, none done during this admission yet. ASSESSMENT AND RECOMMENDATIONS: 1. Right hand swelling due to infiltrated intravenous line. Recommend cold pads to be applied as needed and to avoid placing any new PICC line in that area. No need for antibiotics at this point. 2. Urinary tract infection due to Streptococcus, beta-hemolytic with small colony most likely contamination. No need for antibiotic therapy. The patient does not have any symptoms today. 3. Diabetes, poorly controlled. Recommend tight glycemic control to keep blood glucose between 80 to 120. 4. Psych disorder. Recommend psych evaluation for medication adjustment to improve her disease condition and compliance. Thank you for the consult. Infectious Disease will continue to follow. Choco Lozada M.D. DR: MANJINDER JOB#: [id number] CC: ALICIA
--- NOTE | 2017-05-04 | History and Physical Report ---
DATE OF ADMISSION: 05/02/2017 TIME: 8 a.m. CONSULTANTS: 1. Fred Paz M.D. 2. Jarek Vickers M.D. 3. Rex Alejo M.D. 4. Patrice Melissa M.D. 5. Rick White M.D. 6. Rell Salinas M.D. CHIEF COMPLAINT: Intractable nausea and vomiting. BRIEF HISTORY: This is a 42-year-old female, who has recently signed out AMA two days ago, comes back with a history of increasing nausea and vomiting again. She does have a history of diabetic gastroparesis and was admitted for above. Currently, calm, sitting in bed, non talking much. PAST MEDICAL HISTORY: Include diabetes, gastroparesis, hypertension, encephalopathy, and seizure. PAST SURGICAL HISTORY: Unknown. MEDICATIONS: Os-Osvaldo, Protonix, Reglan, Levemir, Norvasc, Depakote, heparin, albuterol, morphine, Zofran, temazepam, nitroglycerin, and ketorolac. ALLERGIES: Denies. SOCIAL HISTORY: No smoking. No alcohol. No intravenous drug abuse. FAMILY HISTORY: Noncontributory. REVIEW OF SYSTEMS: Unavailable. PHYSICAL EXAMINATION: GENERAL: Sitting in bed, refusing to answer questions. VITAL SIGNS: Temperature is 98.0 degrees, pulse 95, respirations 17, and blood pressure 146/91. CARDIOVASCULAR: No murmur. LUNGS: Poor air exchange. ABDOMEN: Bowel sound positive. Slightly tender. No guarding. No rigidity. No rebound. EXTREMITIES: No cyanosis, clubbing, or edema. NEUROLOGIC: The patient moves all extremities, but slightly weak. LABORATORY AND DIAGNOSTIC DATA: Labs show chloride 90, creatinine 1.3, glucose 359, alkaline phosphatase 151, otherwise CMP is normal. INR is 0.9. PTT is 26. Urinalysis, 3+ leukocyte esterase. ASSESSMENT: 1. Diabetes. 2. Hyperglycemia. 3. Gastroparesis. 4. Vomiting. 5. Encephalopathy. 6. Seizure. 7. Hypertension. 8. Urinary tract infection. PLAN: 1. Continue pre-medications. 2. Accu-Chek and sliding scale. 3. NPO. 4. IV fluids. 5. Blood pressure control. 6. Blood sugar control. 7. Dietary follow up. 8. OT/PT. 9. Dietary evaluation. 10. CBC and BMP in the morning. 11. with Infectious Disease. 12. Resume home medications. 13. Dr. Paz, Dr. Vickers, Dr. Alejo, Dr. Melissa, Dr. White, Dr. Salinas, and to consult. Brandon Arana D.O. DR: Lois JOB#: [id number] CC:
--- NOTE | 2017-05-04 03:00 | Consultation ---
DATE OF CONSULTATION: 05/03/2017 CARDIOLOGIC CONSULTATION CONSULTING PHYSICIAN: Rell Salinas M.D. REFERRING PHYSICIAN: Brandon Arana D.O. REASON FOR CONSULTATION: Management of hypertension and tachycardia. HISTORY OF PRESENT ILLNESS: The patient is a 42-year-old lady with history of hypertension, poorly controlled diabetes, and history of seizure disorder and psychiatric disorder who was brought to the emergency room again for intractable nausea and vomiting. The patient had a recent admission for the same and was just recently discharged. The patient was found to have uncontrolled diabetes and was admitted on monitored bed. Cardiology consultation was obtained for further evaluation and management. REVIEW OF SYSTEMS: Performed and was negative other than what was mentioned in the history past illness. PAST MEDICAL HISTORY: 1. Hypertension. 2. Diabetes. 3. Gastroparesis. 4. . 5. Diabetic ketoacidosis. 6. Psychosis. FAMILY HISTORY: Noncontributory. PHYSICAL EXAMINATION: VITAL SIGNS: Blood pressure of 154/93, pulse of 88, respirations 17, and she is afebrile. HEAD AND NECK: No JVD or carotid bruit. LUNGS: Clear. CARDIOVASCULAR: Regular S1 and S2 with no gallop or murmur. ABDOMEN: Soft. EXTREMITIES: No pitting edema. LABORATORY DATA: White count 9.4, hemoglobin 12.6, and hematocrit 40. Sodium 136, potassium of 4.2, BUN of 10, creatinine 1.3, and glucose of 359. INR is 0.9. ASSESSMENT AND PLAN: 1. Hypertension. The patient's lisinopril that is good for her diabetes as well. I will discontinue amlodipine at this time. 2. Uncontrolled diabetes. Further evaluation by Dr. Alejo. 3. Noncompliance. 4. Diabetic gastroparesis and esophagitis as well as intractable nausea and vomiting. Further evaluation by Dr. Vickers. Thank very much, Dr. Arana, for allowing me to participate in the care of this patient. Please do not hesitate to contact me for any questions regarding my evaluation. Rell Salinas M.D. DR: AMARJIT JOB#: [id number] CC:
[2017-05-04 04:00] VITALS: BP 149/87
[2017-05-04] MEDS: NovoLOG Insulin Flexpen SUBQ SCH ×7 (06:30→20:56)
--- NOTE | 2017-05-04 08:23 | General Progress Note ---
Assessment/Plan Problem List: (1) Seizure disorder ICD Codes: G40.909 - Epilepsy, unspecified, not intractable, without status epilepticus SNOMED: 344889635 (2) Altered mental status ICD Codes: R41.82 - Altered mental status, unspecified SNOMED: 592342209 (3) Uncontrolled diabetes mellitus ICD Codes: E11.65 - Type 2 diabetes mellitus with hyperglycemia SNOMED: 537584899 (4) Intractable nausea and vomiting ICD Codes: R11.2 - Nausea with vomiting, unspecified SNOMED: 720203859, 063214041 (5) Hyperglycemia ICD Codes: R73.9 - Hyperglycemia, unspecified SNOMED: 66308666 (6) Diabetes ICD Codes: E11.9 - Type 2 diabetes mellitus without complications SNOMED: 98875242 (7) Psychiatric disorder ICD Codes: F99 - Mental disorder, not otherwise specified SNOMED: 52970979, 696633823 Status: stable, unchanged Assessment/Plan ot pt diet bs bp control cbc bmp am dc plan Subjective Constitutional: Reports: weakness Allergies: Coded Allergies: No Known Allergies (Verified , NONE, 04/29/17) All Systems: reviewed and negative except above Subjective confused sleepy in bed Objective Last 24 Hour Vital Signs Date Time Temp Pulse Resp B/P Pulse Ox O2 Delivery O2 Flow Rate FiO2 05/04/17 08:12 85 16 Room Air 21 05/04/17 04:00 98.2 85 20 149/87 98 05/03/17 21:10 89 145/97 05/03/17 20:01 88 16 Room Air 21 05/03/17 20:00 98.1 91 20 151/100 100 Room Air 05/03/17 15:03 88 17 155/93 99 Room Air 05/03/17 09:46 96 146/91 Intake and Output 05/03/17 05/04/17 19:00 07:00 Intake Total 600 ml 400 ml Balance 600 ml 400 ml Intake Oral 600 ml 400 ml # Voids 2 Height (Feet): 5 Height (Inches): 5.00 Weight (Pounds): 130 General Appearance: lethargic, confused EENT: normal ENT inspection Neck: normal alignment Cardiovascular: normal peripheral pulses, normal rate, regular rhythm Respiratory/Chest: chest wall non-tender, lungs clear, normal breath sounds Abdomen: normal bowel sounds, non tender, soft Extremities: normal inspection Edema: no edema noted Arm (L), no edema noted Arm (R), no edema noted Leg (L), no edema noted Leg (R), no edema noted Pedal (L), no edema noted Pedal (R), no edema noted Generalized Neurologic: responsive, motor weakness Skin: normal pigmentation, warm/dry ENOCH GONZALEZ May 04, 2017 08:22
--- NOTE | 2017-05-04 08:26 | General Progress Note ---
Assessment/Plan Problem List: (1) Esophagitis ICD Codes: K20.9 - Esophagitis, unspecified SNOMED: 81113367 (2) Intractable nausea and vomiting ICD Codes: R11.2 - Nausea with vomiting, unspecified SNOMED: 812838310, 030220976 (3) Uncontrolled diabetes mellitus ICD Codes: E11.65 - Type 2 diabetes mellitus with hyperglycemia SNOMED: 309120712 (4) Anemia ICD Codes: D64.9 - Anemia, unspecified SNOMED: 165666892 (5) Gastroparesis due to DM ICD Codes: E11.43 - Type 2 diabetes mellitus with diabetic autonomic (poly) neuropathy; K31.84 - Gastroparesis SNOMED: 09124407, 007724314 (6) Diabetes ICD Codes: E11.9 - Type 2 diabetes mellitus without complications SNOMED: 66334461 (7) HTN (hypertension) ICD Codes: I10 - Essential (primary) hypertension SNOMED: 45453723 Assessment/Plan reglan IV ppi IV tolerated diet DM control Subjective ROS Limited/Unobtainable: Yes Allergies: Coded Allergies: No Known Allergies (Verified , NONE, 04/29/17) Subjective no event no recurrent N/V Objective Last 24 Hour Vital Signs Date Time Temp Pulse Resp B/P Pulse Ox O2 Delivery O2 Flow Rate FiO2 05/04/17 08:12 85 16 Room Air 21 05/04/17 04:00 98.2 85 20 149/87 98 05/03/17 21:10 89 145/97 05/03/17 20:01 88 16 Room Air 21 05/03/17 20:00 98.1 91 20 151/100 100 Room Air 05/03/17 15:03 88 17 155/93 99 Room Air 05/03/17 09:46 96 146/91 Intake and Output 05/03/17 05/04/17 19:00 07:00 Intake Total 600 ml 400 ml Balance 600 ml 400 ml Intake Oral 600 ml 400 ml # Voids 2 Height (Feet): 5 Height (Inches): 5.00 Weight (Pounds): 130 General Appearance: alert EENT: normal ENT inspection Neck: supple Cardiovascular: normal rate Respiratory/Chest: lungs clear Abdomen: normal bowel sounds, non tender, soft Extremities: non-tender QUAN BAZAN May 04, 2017 08:26
[2017-05-04] MEDS: Levemir Flexpen SUBQ SCH ×2 (09:00→17:43)
[2017-05-04] MEDS: Magnesium Oxide 400mg tab ORAL SCH ×3 (09:13→16:29)
[2017-05-04] MEDS: Heparin 5000 units/ml inj SUBQ SCH ×2 (09:17→20:12)
[2017-05-04 12:07] VITALS: BP 187/105
[2017-05-04 13:00] LABS: BASOPHILS % (AUTO) 0.6 % (0.0-2.0); EOSINOPHILS % (AUTO) 0.7 % (0.0-3.0); LYMPHOCYTES % (AUTO) 18.5 % (20.0-45.0); MEAN CORPUSCULAR HEMOGLOBIN 28.7 PG (27.0-31.0); MEAN CORPUSCULAR HGB CONC 30.5 G/DL (32.0-36.0); MEAN CORPUSCULAR VOLUME 94 FL (80-99); MEAN PLATELET VOLUME 7.5 FL (6.5-10.1); NEUTROPHILS % (AUTO) 76.2 % (45.0-75.0); PLATELET COUNT 306 K/UL (150-450); RED BLOOD COUNT 4.42 M/UL (4.20-5.40); RED CELL DISTRIBUTION WIDTH 13.9 % (11.6-14.8); WHITE BLOOD COUNT 9.1 K/UL (4.8-10.8)
[2017-05-04 13:21] LABS: ALANINE AMINOTRANSFERASE 8 U/L (3-33); ALBUMIN/GLOBULIN RATIO 1.1 (1.0-2.7); ANION GAP 19 (5-15); ASPARTATE AMINO TRANSFERASE 13 U/L (5-40); CALCIUM 9.2 mg/dL (8.6-10.2); CARBON DIOXIDE 29 mEQ/L (20-30); CHLORIDE 91 mEQ/L (98-107); CREATININE 1.3 mg/dL (0.5-0.9); GLOMERULAR FILTRATION RATE 54.9 mL/min (>60); HEMOLYSIS 8; SODIUM 139 mEQ/L (135-145)
[2017-05-04 13:32] LABS: MAGNESIUM 1.5 mg/dL (1.7-2.5); PHOSPHORUS 3.4 mg/dL (2.5-4.8)
--- NOTE | 2017-05-04 14:41 | General Progress Note ---
Assessment/Plan Problem List: (1) Non compliance with medical treatment ICD Codes: Z91.19 - Patient's noncompliance with other medical treatment and regimen SNOMED: 2735368 (2) Intractable nausea and vomiting ICD Codes: R11.2 - Nausea with vomiting, unspecified SNOMED: 436855623, 914714023 (3) Gastroparesis due to DM ICD Codes: E11.43 - Type 2 diabetes mellitus with diabetic autonomic (poly) neuropathy; K31.84 - Gastroparesis SNOMED: 97169163, 775325123 (4) Psychiatric disorder ICD Codes: F99 - Mental disorder, not otherwise specified SNOMED: 77543095, 018990072 (5) Uncontrolled diabetes mellitus ICD Codes: E11.65 - Type 2 diabetes mellitus with hyperglycemia SNOMED: 659426911 Assessment/Plan glucose elevated this morning she refused Levemir yesterday and this morning she has no IV access - PICC line scheduled for am - very difficult patent to deal with: refusing insulin, not following medical orders and regimen, not wanting to discuss her care - Levemir 15 units now and then continue with 8 units bid - continue Novolog 5 units ac tid - SSI - d/w RN Subjective ROS Limited/Unobtainable: Yes Allergies: Coded Allergies: No Known Allergies (Verified , NONE, 04/29/17) Subjective readmitted after recent discharge with N/V she does not want to talk Objective Last 24 Hour Vital Signs Date Time Temp Pulse Resp B/P Pulse Ox O2 Delivery O2 Flow Rate FiO2 05/04/17 12:07 98.1 104 19 187/105 95 Room Air 05/04/17 08:12 85 16 Room Air 21 05/04/17 04:00 98.2 85 20 149/87 98 05/03/17 21:10 89 145/97 05/03/17 20:01 88 16 Room Air 21 05/03/17 20:00 98.1 91 20 151/100 100 Room Air 05/03/17 15:03 88 17 155/93 99 Room Air Intake and Output 05/03/17 05/04/17 19:00 07:00 Intake Total 600 ml 400 ml Balance 600 ml 400 ml Intake Oral 600 ml 400 ml # Voids 2 Laboratory Tests 05/04/17 12:30: White Blood Count 9.1, Red Blood Count 4.42, Hemoglobin 12.7, Hematocrit 41.6, Mean Corpuscular Volume 94, Mean Corpuscular Hemoglobin 28.7, Mean Corpuscular Hemoglobin Concent 30.5L, Red Cell Distribution Width 13.9, Platelet Count 306, Mean Platelet Volume 7.5, Neutrophils (%) (Auto) 76.2H, Lymphocytes (%) (Auto) 18.5L, Monocytes (%) (Auto) 4.0, Eosinophils (%) (Auto) 0.7, Basophils (%) (Auto ) 0.6, Sodium Level 139, Potassium Level 4.0, Chloride Level 91L, Carbon Dioxide Level 29, Anion Gap 19H, Blood Urea Nitrogen 10, Creatinine 1.3H, Estimat Glomerular Filtration Rate 54.9, Glucose Level 582*H, Calcium Level 9.2 , Phosphorus Level 3.4, Magnesium Level 1.5L, Total Bilirubin < 0.2, Aspartate Amino Transf (AST/SGOT) 13, Alanine Aminotransferase (ALT/SGPT) 8, Alkaline Phosphatase 120H, Pro-B-Type Natriuretic Peptide 224H, Total Protein 7.0, Albumin 3.7, Globulin 3.3, Albumin/Globulin Ratio 1.1 Height (Feet): 5 Height (Inches): 5.00 Weight (Pounds): 130 General Appearance: no apparent distress Neck: normal alignment Cardiovascular: normal rate Respiratory/Chest: lungs clear Abdomen: normal bowel sounds Objective Current Medications Medications (Trade) Dose Ordered Sig/Mateo Route PRN Reason Start Time Stop Time Status Last Admin Dose Admin Acetaminophen (Tylenol) 650 mg Q4H PRN ORAL fever 05/02/17 18:00 06/01/17 17:59 Al Hydroxide/Mg Hydroxide (Mylanta II) 30 ml Q6H PRN ORAL dyspepsia 05/02/17 18:00 06/01/17 17:59 Albuterol/ Ipratropium (DuoNeb 0.5-3(2.5)mg/3ml) 3 ml EVERY 4 HOURS PRN HHN Shortness of Breath 05/02/17 18:00 05/07/17 17:59 Calcium Carbonate (Os-Osvaldo) 1,250 mg DAILY ORAL 05/03/17 09:00 06/02/17 08:59 05/04/17 09:13 Chlorhexidine Gluconate (Mara-Hex 2%) 1 applic DAILY TOPIC 05/05/17 18:00 06/04/17 17:59 Clonidine HCl (Catapres) 0.1 mg EVERY 4 HOURS PRN ORAL sbp more than 160 05/02/17 18:00 06/01/17 17:59 Dextrose (Dextrose 50%) STAT PRN IV Hypoglycemia 05/02/17 18:00 06/01/17 17:59 Divalproex Sodium (Depakote ER) 1,000 mg QHS ORAL 05/02/17 21:00 06/01/17 20:59 05/03/17 20:18 Heparin Sodium (Porcine) (Heparin 5000 units/ml) 5,000 units EVERY 12 HOURS SUBQ 05/02/17 21:00 06/01/17 20:59 05/04/17 09:17 Heparin Sodium/ Sodium Chloride (Heparin 2000 units/Ns 1000ml premix) 2,000 unit ONCE PRN INJ PICC PLACEMENT 05/03/17 12:00 05/05/17 23:59 Insulin Aspart (NovoLOG) BEFORE MEALS AND HS SUBQ 05/02/17 21:00 06/01/17 20:59 05/04/17 13:23 Insulin Aspart (NovoLOG) 5 units NOVOTIAC SUBQ 05/03/17 06:30 06/02/17 06:29 05/04/17 13:24 Insulin Detemir (Levemir) 8 units BID SUBQ 05/02/17 23:30 06/01/17 23:29 05/02/17 23:52 Ketorolac Tromethamine (Toradol 30mg) 30 mg EVERY 6 HOURS PRN IV moderate pain 4-6 05/02/17 18:00 05/07/17 17:59 Lidocaine HCl (Xylocaine 1% 30ml) 30 ml ONCE PRN INJ PICC PLACEMENT 05/03/17 12:00 05/05/17 23:59 Magnesium Oxide (Mag-Ox 400mg) 400 mg TID ORAL 05/02/17 21:00 06/01/17 20:59 05/04/17 09:13 Metoclopramide HCl (Reglan) 10 mg Q6H PRN ORAL Nausea & Vomiting 05/04/17 09:45 06/03/17 09:44 05/04/17 10:52 Morphine Sulfate (Morphine Sulfate) 2 mg EVERY 4 HOURS PRN IVP severe pain 7-10 05/02/17 18:00 05/09/17 17:59 Nitroglycerin (Ntg) 0.4 mg Q5M X 3 DOSES PRN SL Prn Chest Pain 05/02/17 18:00 06/01/17 17:59 Ondansetron HCl (Zofran) 4 mg Q6H PRN IVP Nausea & Vomiting 05/02/17 18:00 06/01/17 17:59 05/03/17 06:22 Pantoprazole 40 mg 40 mg DAILY ORAL 05/03/17 09:00 06/02/17 08:59 05/04/17 09:13 Polyethylene Glycol (Miralax) 17 gm HSPRN PRN ORAL Constipation 05/02/17 18:00 06/01/17 17:59 Sodium Bicarbonate (Sodium Bicarbonate 4%) 1 ml ONCE PRN INJ PICC PLACEMENT 05/03/17 12:00 05/05/17 23:59 Sodium Chloride (Sodium Chloride 1000ml bag) 1,000 ml @ 100 mls/hr Q10H IVLG 05/02/17 18:30 06/01/17 18:29 05/03/17 04:32 Temazepam (Restoril) 15 mg HSPRN PRN ORAL Insomnia 05/02/17 18:00 05/09/17 17:59 05/03/17 20:20 Item Value Date Time Bedside Blood Glucose Critically High Result 05/04/17 1324 Bedside Blood Glucose Critically High Result 05/04/17 1057 Bedside Blood Glucose 162 mg/dl H 05/03/17 2100 Bedside Blood Glucose 252 mg/dl H 05/03/17 1718 FRANCES BRADLEY May 04, 2017 14:41
[2017-05-04 16:00] VITALS: BP 100/70
[2017-05-04] MEDS ORDERED: Levemir Flexpen SUBQ ONE (16:00)
--- NOTE | 2017-05-04 17:35 | Cardiac Electrophysiology PN ---
Assessment/Plan Assessment/Plan 1. Hypertension. Increase lisinopril to 10 bid. 2. Uncontrolled diabetes. Further evaluation by Dr. Alejo. 3. Noncompliance. 4. Diabetic gastroparesis and esophagitis as well as intractable nausea and vomiting. Further evaluation by Dr. Vickers. 5. Psychosis DW RN Subjective Subjective No new events.Comfortable in NAD. Objective Last 24 Hour Vital Signs Date Time Temp Pulse Resp B/P Pulse Ox O2 Delivery O2 Flow Rate FiO2 05/04/17 16:00 97.9 57 18 100/70 94 Room Air 05/04/17 12:07 98.1 104 19 187/105 95 Room Air 05/04/17 08:12 85 16 Room Air 21 05/04/17 04:00 98.2 85 20 149/87 98 05/03/17 21:10 89 145/97 05/03/17 20:01 88 16 Room Air 21 05/03/17 20:00 98.1 91 20 151/100 100 Room Air Intake and Output 05/03/17 05/04/17 19:00 07:00 Intake Total 600 ml 400 ml Balance 600 ml 400 ml Intake Oral 600 ml 400 ml # Voids 2 Laboratory Tests Test 05/04/17 12:30 White Blood Count 9.1 K/UL (4.8-10.8) Red Blood Count 4.42 M/UL (4.20-5.40) Hemoglobin 12.7 G/DL (12.0-16.0) Hematocrit 41.6 % (37.0-47.0) Mean Corpuscular Volume 94 FL (80-99) Mean Corpuscular Hemoglobin 28.7 PG (27.0-31.0) Mean Corpuscular Hemoglobin Concent 30.5 G/DL (32.0-36.0) L Red Cell Distribution Width 13.9 % (11.6-14.8) Platelet Count 306 K/UL (150-450) Mean Platelet Volume 7.5 FL (6.5-10.1) Neutrophils (%) (Auto) 76.2 % (45.0-75.0) H Lymphocytes (%) (Auto) 18.5 % (20.0-45.0) L Monocytes (%) (Auto) 4.0 % (1.0-10.0) Eosinophils (%) (Auto) 0.7 % (0.0-3.0) Basophils (%) (Auto) 0.6 % (0.0-2.0) Sodium Level 139 mEQ/L (135-145) Potassium Level 4.0 mEQ/L (3.4-4.9) Chloride Level 91 mEQ/L (98-107) L Carbon Dioxide Level 29 mEQ/L (20-30) Anion Gap 19 (5-15) H Blood Urea Nitrogen 10 mg/dL (7-23) Creatinine 1.3 mg/dL (0.5-0.9) H Estimat Glomerular Filtration Rate 54.9 mL/min (>60) Glucose Level 582 mg/dL (74-106) *H Calcium Level 9.2 mg/dL (8.6-10.2) Phosphorus Level 3.4 mg/dL (2.5-4.8) Magnesium Level 1.5 mg/dL (1.7-2.5) L Total Bilirubin < 0.2 mg/dL (0.0-1.2) Aspartate Amino Transf (AST/SGOT) 13 U/L (5-40) Alanine Aminotransferase (ALT/SGPT) 8 U/L (3-33) Alkaline Phosphatase 120 U/L (35-104) H Pro-B-Type Natriuretic Peptide 224 pg/mL (0-125) H Total Protein 7.0 g/dL (6.6-8.7) Albumin 3.7 g/dL (3.5-5.2) Globulin 3.3 g/dL Albumin/Globulin Ratio 1.1 (1.0-2.7) Microbiology Date/Time Source Procedure Growth Status 05/02/17 13:40 Urine,Clean Catch Urine Culture - Preliminary Strep Species, Beta Hemolytic Resulted 05/02/17 15:30 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 Complete Objective HEAD AND NECK: No JVD or carotid bruit. LUNGS: Clear. CARDIOVASCULAR: Regular S1 and S2 with no gallop or murmur. ABDOMEN: Soft. EXTREMITIES: No pitting edema. MARCIA PINTO May 04, 2017 17:35
[2017-05-04] MEDS: Lisinopril 10mg tab ORAL SCH (17:41)
--- NOTE | 2017-05-04 18:28 | Pulmonology Progress Note ---
Assessment/Plan Problems: (1) Hyperglycemia (2) Non compliance with medical treatment (3) Psychiatric disorder (4) HTN (hypertension) (5) Intractable nausea and vomiting Assessment/Plan blood sugar still high refusing levemir non compliant with meds psych evaluation probably needs to be in a [facility] psych facility Subjective ROS Limited/Unobtainable: No Allergies: Coded Allergies: No Known Allergies (Verified , NONE, 04/29/17) Objective Last 24 Hour Vital Signs Date Time Temp Pulse Resp B/P Pulse Ox O2 Delivery O2 Flow Rate FiO2 05/04/17 17:41 100/70 05/04/17 16:00 97.9 57 18 100/70 94 Room Air 05/04/17 12:07 98.1 104 19 187/105 95 Room Air 05/04/17 08:12 85 16 Room Air 21 05/04/17 04:00 98.2 85 20 149/87 98 05/03/17 21:10 89 145/97 05/03/17 20:01 88 16 Room Air 21 05/03/17 20:00 98.1 91 20 151/100 100 Room Air Intake and Output 05/03/17 05/04/17 19:00 07:00 Intake Total 600 ml 400 ml Balance 600 ml 400 ml Intake Oral 600 ml 400 ml # Voids 2 General Appearance: cachetic HEENT: normocephalic Respiratory/Chest: chest wall non-tender Cardiovascular: normal peripheral pulses Abdomen: normal bowel sounds Extremities: no cyanosis Microbiology Date/Time Source Procedure Growth Status 05/02/17 13:40 Urine,Clean Catch Urine Culture - Preliminary Strep Species, Beta Hemolytic Resulted 05/02/17 15:30 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 Complete Laboratory Tests 05/04/17 12:30: White Blood Count 9.1, Red Blood Count 4.42, Hemoglobin 12.7, Hematocrit 41.6, Mean Corpuscular Volume 94, Mean Corpuscular Hemoglobin 28.7, Mean Corpuscular Hemoglobin Concent 30.5L, Red Cell Distribution Width 13.9, Platelet Count 306, Mean Platelet Volume 7.5, Neutrophils (%) (Auto) 76.2H, Lymphocytes (%) (Auto) 18.5L, Monocytes (%) (Auto) 4.0, Eosinophils (%) (Auto) 0.7, Basophils (%) (Auto ) 0.6, Sodium Level 139, Potassium Level 4.0, Chloride Level 91L, Carbon Dioxide Level 29, Anion Gap 19H, Blood Urea Nitrogen 10, Creatinine 1.3H, Estimat Glomerular Filtration Rate 54.9, Glucose Level 582*H, Calcium Level 9.2 , Phosphorus Level 3.4, Magnesium Level 1.5L, Total Bilirubin < 0.2, Aspartate Amino Transf (AST/SGOT) 13, Alanine Aminotransferase (ALT/SGPT) 8, Alkaline Phosphatase 120H, Pro-B-Type Natriuretic Peptide 224H, Total Protein 7.0, Albumin 3.7, Globulin 3.3, Albumin/Globulin Ratio 1.1 Current Medications Medications (Trade) Dose Ordered Sig/Mateo Route PRN Reason Start Time Stop Time Status Last Admin Dose Admin Acetaminophen (Tylenol) 650 mg Q4H PRN ORAL fever 05/02/17 18:00 06/01/17 17:59 Al Hydroxide/Mg Hydroxide (Mylanta II) 30 ml Q6H PRN ORAL dyspepsia 05/02/17 18:00 06/01/17 17:59 Albuterol/ Ipratropium (DuoNeb 0.5-3(2.5)mg/3ml) 3 ml EVERY 4 HOURS PRN HHN Shortness of Breath 05/02/17 18:00 05/07/17 17:59 Calcium Carbonate (Os-Osvaldo) 1,250 mg DAILY ORAL 05/03/17 09:00 06/02/17 08:59 05/04/17 09:13 Chlorhexidine Gluconate (Mara-Hex 2%) 1 applic DAILY TOPIC 05/05/17 18:00 06/04/17 17:59 Clonidine HCl (Catapres) 0.1 mg EVERY 4 HOURS PRN ORAL sbp more than 160 05/02/17 18:00 06/01/17 17:59 Dextrose (Dextrose 50%) STAT PRN IV Hypoglycemia 05/02/17 18:00 06/01/17 17:59 Divalproex Sodium (Depakote ER) 1,000 mg QHS ORAL 05/02/17 21:00 06/01/17 20:59 05/03/17 20:18 Heparin Sodium (Porcine) (Heparin 5000 units/ml) 5,000 units EVERY 12 HOURS SUBQ 05/02/17 21:00 06/01/17 20:59 05/04/17 09:17 Heparin Sodium/ Sodium Chloride (Heparin 2000 units/Ns 1000ml premix) 2,000 unit ONCE PRN INJ PICC PLACEMENT 05/03/17 12:00 05/05/17 23:59 Insulin Aspart (NovoLOG) BEFORE MEALS AND HS SUBQ 05/02/17 21:00 06/01/17 20:59 05/04/17 16:28 Insulin Aspart (NovoLOG) 5 units NOVOTIAC SUBQ 05/03/17 06:30 06/02/17 06:29 05/04/17 16:28 Insulin Detemir (Levemir) 8 units BID SUBQ 05/02/17 23:30 06/01/17 23:29 05/04/17 17:43 Ketorolac Tromethamine (Toradol 30mg) 30 mg EVERY 6 HOURS PRN IV moderate pain 4-6 05/02/17 18:00 05/07/17 17:59 Lidocaine HCl (Xylocaine 1% 30ml) 30 ml ONCE PRN INJ PICC PLACEMENT 05/03/17 12:00 05/05/17 23:59 Lisinopril (Zestril) 10 mg BID ORAL 05/04/17 18:00 06/03/17 17:59 Magnesium Oxide (Mag-Ox 400mg) 400 mg TID ORAL 05/02/17 21:00 06/01/17 20:59 05/04/17 16:29 Metoclopramide HCl (Reglan) 10 mg Q6H PRN ORAL Nausea & Vomiting 05/04/17 09:45 06/03/17 09:44 05/04/17 10:52 Morphine Sulfate (Morphine Sulfate) 2 mg EVERY 4 HOURS PRN IVP severe pain 7-05/02/17 18:00 05/09/17 17:59 Nitroglycerin (Ntg) 0.4 mg Q5M X 3 DOSES PRN SL Prn Chest Pain 05/02/17 18:00 06/01/17 17:59 Ondansetron HCl (Zofran) 4 mg Q6H PRN IVP Nausea & Vomiting 05/02/17 18:00 06/01/17 17:59 05/03/17 06:22 Pantoprazole 40 mg 40 mg DAILY ORAL 05/03/17 09:00 06/02/17 08:59 05/04/17 09:13 Polyethylene Glycol (Miralax) 17 gm HSPRN PRN ORAL Constipation 05/02/17 18:00 06/01/17 17:59 Sodium Bicarbonate (Sodium Bicarbonate 4%) 1 ml ONCE PRN INJ PICC PLACEMENT 05/03/17 12:00 05/05/17 23:59 Sodium Chloride (Sodium Chloride 1000ml bag) 1,000 ml @ 100 mls/hr Q10H IVLG 05/02/17 18:30 06/01/17 18:29 05/03/17 04:32 Temazepam (Restoril) 15 mg HSPRN PRN ORAL Insomnia 05/02/17 18:00 05/09/17 17:59 05/03/17 20:20 MILA LAINEZ May 04, 2017 18:28
[2017-05-04 20:00] VITALS: BP 90/65
[2017-05-04] MEDS: Depakote ER 500mg tab ORAL SCH (20:14)
[2017-05-04 21:10] VITALS: BP 107/71
[2017-05-05] VITALS: BP 92/57
[2017-05-05 00:40] VITALS: BP 108/68
[2017-05-05] MEDS: NovoLOG Insulin Flexpen SUBQ SCH ×7 (06:15→20:53)
--- NOTE | 2017-05-05 06:58 | General Progress Note ---
Assessment/Plan Problem List: (1) Non compliance with medical treatment ICD Codes: Z91.19 - Patient's noncompliance with other medical treatment and regimen SNOMED: 7485058 (2) Intractable nausea and vomiting ICD Codes: R11.2 - Nausea with vomiting, unspecified SNOMED: 887234214, 667838495 (3) Gastroparesis due to DM ICD Codes: E11.43 - Type 2 diabetes mellitus with diabetic autonomic (poly) neuropathy; K31.84 - Gastroparesis SNOMED: 71163985, 256402884 (4) Psychiatric disorder ICD Codes: F99 - Mental disorder, not otherwise specified SNOMED: 58674013, 033550240 (5) Uncontrolled diabetes mellitus ICD Codes: E11.65 - Type 2 diabetes mellitus with hyperglycemia SNOMED: 982764075 Assessment/Plan glucose values improved she has no IV access - PICC line scheduled today - very difficult patent to deal with: refusing insulin, not following medical orders and regimen, not wanting to discuss her care - Levemir 8 units bid - Novolog 5 units ac tid - SSI Subjective ROS Limited/Unobtainable: Yes Allergies: Coded Allergies: No Known Allergies (Verified , NONE, 04/29/17) Subjective events noted glucose values improved Objective Last 24 Hour Vital Signs Date Time Temp Pulse Resp B/P Pulse Ox O2 Delivery O2 Flow Rate FiO2 05/05/17 00:40 78 108/68 05/05/17 00:00 97.0 75 18 92/57 97 Room Air 05/04/17 21:10 87 107/71 05/04/17 20:14 82 15 Room Air 21 05/04/17 20:00 97.7 82 18 90/65 100 Room Air 05/04/17 17:41 100/70 05/04/17 16:00 97.9 57 18 100/70 94 Room Air 05/04/17 12:07 98.1 104 19 187/105 95 Room Air 05/04/17 08:12 85 16 Room Air 21 Intake and Output 05/04/17 05/05/17 19:00 07:00 Intake Total 360 ml Balance 360 ml Intake Oral 360 ml # Voids 3 Laboratory Tests 05/04/17 12:30: White Blood Count 9.1, Red Blood Count 4.42, Hemoglobin 12.7, Hematocrit 41.6, Mean Corpuscular Volume 94, Mean Corpuscular Hemoglobin 28.7, Mean Corpuscular Hemoglobin Concent 30.5L, Red Cell Distribution Width 13.9, Platelet Count 306, Mean Platelet Volume 7.5, Neutrophils (%) (Auto) 76.2H, Lymphocytes (%) (Auto) 18.5L, Monocytes (%) (Auto) 4.0, Eosinophils (%) (Auto) 0.7, Basophils (%) (Auto ) 0.6, Sodium Level 139, Potassium Level 4.0, Chloride Level 91L, Carbon Dioxide Level 29, Anion Gap 19H, Blood Urea Nitrogen 10, Creatinine 1.3H, Estimat Glomerular Filtration Rate 54.9, Glucose Level 582*H, Calcium Level 9.2 , Phosphorus Level 3.4, Magnesium Level 1.5L, Total Bilirubin < 0.2, Aspartate Amino Transf (AST/SGOT) 13, Alanine Aminotransferase (ALT/SGPT) 8, Alkaline Phosphatase 120H, Pro-B-Type Natriuretic Peptide 224H, Total Protein 7.0, Albumin 3.7, Globulin 3.3, Albumin/Globulin Ratio 1.1 Height (Feet): 5 Height (Inches): 5.00 Weight (Pounds): 130 General Appearance: no apparent distress Neck: normal alignment Cardiovascular: normal rate Respiratory/Chest: lungs clear Abdomen: normal bowel sounds Edema: no edema noted Arm (L), no edema noted Arm (R), no edema noted Leg (L), no edema noted Leg (R), no edema noted Pedal (L), no edema noted Pedal (R), no edema noted Generalized Objective Current Medications Medications (Trade) Dose Ordered Sig/Mateo Route PRN Reason Start Time Stop Time Status Last Admin Dose Admin Acetaminophen (Tylenol) 650 mg Q4H PRN ORAL fever 05/02/17 18:00 06/01/17 17:59 Al Hydroxide/Mg Hydroxide (Mylanta II) 30 ml Q6H PRN ORAL dyspepsia 05/02/17 18:00 06/01/17 17:59 Albuterol/ Ipratropium (DuoNeb 0.5-3(2.5)mg/3ml) 3 ml EVERY 4 HOURS PRN HHN Shortness of Breath 05/02/17 18:00 05/07/17 17:59 Calcium Carbonate (Os-Osvaldo) 1,250 mg DAILY ORAL 05/03/17 09:00 06/02/17 08:59 05/04/17 09:13 Chlorhexidine Gluconate (Mara-Hex 2%) 1 applic DAILY TOPIC 05/05/17 18:00 06/04/17 17:59 Clonidine HCl (Catapres) 0.1 mg EVERY 4 HOURS PRN ORAL sbp more than 160 05/02/17 18:00 06/01/17 17:59 Dextrose (Dextrose 50%) STAT PRN IV Hypoglycemia 05/02/17 18:00 06/01/17 17:59 Divalproex Sodium (Depakote ER) 1,000 mg QHS ORAL 05/02/17 21:00 06/01/17 20:59 05/04/17 20:14 Heparin Sodium (Porcine) (Heparin 5000 units/ml) 5,000 units EVERY 12 HOURS SUBQ 05/02/17 21:00 06/01/17 20:59 05/04/17 20:12 Heparin Sodium/ Sodium Chloride (Heparin 2000 units/Ns 1000ml premix) 2,000 unit ONCE PRN INJ PICC PLACEMENT 05/03/17 12:00 05/05/17 23:59 Insulin Aspart (NovoLOG) BEFORE MEALS AND HS SUBQ 05/02/17 21:00 06/01/17 20:59 05/05/17 06:15 Insulin Aspart (NovoLOG) 5 units NOVOTIAC SUBQ 05/03/17 06:30 06/02/17 06:29 05/05/17 06:18 Insulin Detemir (Levemir) 8 units BID SUBQ 05/02/17 23:30 06/01/17 23:29 05/04/17 17:43 Ketorolac Tromethamine (Toradol 30mg) 30 mg EVERY 6 HOURS PRN IV moderate pain 4-6 05/02/17 18:00 05/07/17 17:59 Lidocaine HCl (Xylocaine 1% 30ml) 30 ml ONCE PRN INJ PICC PLACEMENT 05/03/17 12:00 05/05/17 23:59 Lisinopril (Zestril) 10 mg BID ORAL 05/04/17 18:00 06/03/17 17:59 Magnesium Oxide (Mag-Ox 400mg) 400 mg TID ORAL 05/02/17 21:00 06/01/17 20:59 05/04/17 16:29 Metoclopramide HCl (Reglan) 10 mg Q6H PRN ORAL Nausea & Vomiting 05/04/17 09:45 06/03/17 09:44 05/04/17 10:52 Morphine Sulfate (Morphine Sulfate) 2 mg EVERY 4 HOURS PRN IVP severe pain 705/02/17 18:00 05/09/17 17:59 Nitroglycerin (Ntg) 0.4 mg Q5M X 3 DOSES PRN SL Prn Chest Pain 05/02/17 18:00 06/01/17 17:59 Ondansetron HCl (Zofran) 4 mg Q6H PRN IVP Nausea & Vomiting 05/02/17 18:00 06/01/17 17:59 05/03/17 06:22 Pantoprazole 40 mg 40 mg DAILY ORAL 05/03/17 09:00 06/02/17 08:59 05/04/17 09:13 Polyethylene Glycol (Miralax) 17 gm HSPRN PRN ORAL Constipation 05/02/17 18:00 06/01/17 17:59 Sodium Bicarbonate (Sodium Bicarbonate 4%) 1 ml ONCE PRN INJ PICC PLACEMENT 05/03/17 12:00 05/05/17 23:59 Sodium Chloride (Sodium Chloride 1000ml bag) 1,000 ml @ 100 mls/hr Q10H IVLG 05/02/17 18:30 06/01/17 18:29 05/03/17 04:32 Temazepam (Restoril) 15 mg HSPRN PRN ORAL Insomnia 05/02/17 18:00 05/09/17 17:59 05/04/17 20:12 Item Value Date Time Bedside Blood Glucose 121 mg/dl H 05/05/17 0622 Bedside Blood Glucose 93 mg/dl 05/04/17 2100 Bedside Blood Glucose 258 mg/dl H 05/04/17 1743 Bedside Blood Glucose 465 mg/dl H 05/04/17 1450 FRANCES BRADLEY 12, 2017 06:58
[2017-05-05] MEDS: Heparin 5000 units/ml inj SUBQ SCH ×2 (09:00→20:51)
[2017-05-05 09:35] VITALS: BP 135/93
[2017-05-05] MEDS: Lisinopril 10mg tab ORAL SCH ×2 (09:38→18:43)
[2017-05-05] MEDS: Magnesium Oxide 400mg tab ORAL SCH ×3 (09:38→18:42)
[2017-05-05] MEDS: Levemir Flexpen SUBQ SCH ×2 (09:41→18:38)
--- NOTE | 2017-05-05 10:40 | GI Progress Note ---
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 Vickers. Assessment/Plan ADA diet zofran prn DM mgmt reglan IV ppi IV hydration + electrolyte replacement fu labs Subjective Gastrointestinal/Abdominal: Reports: abdominal pain, nausea Objective Last 24 Hour Vital Signs Date Time Temp Pulse Resp B/P Pulse Ox O2 Delivery O2 Flow Rate FiO2 05/05/17 09:38 135/93 05/05/17 09:35 98.1 82 18 135/93 100 Room Air 05/05/17 08:01 80 14 Room Air 05/05/17 00:40 78 108/68 05/05/17 00:00 97.0 75 18 92/57 97 Room Air 05/04/17 21:10 87 107/71 05/04/17 20:14 82 15 Room Air 21 05/04/17 20:00 97.7 82 18 90/65 100 Room Air 05/04/17 17:41 100/70 05/04/17 16:00 97.9 57 18 100/70 94 Room Air 05/04/17 12:07 98.1 104 19 187/105 95 Room Air Intake and Output 05/04/17 05/05/17 19:00 07:00 Intake Total 360 ml Balance 360 ml Intake Oral 360 ml # Voids 3 Laboratory Tests Test 05/04/17 12:30 White Blood Count 9.1 K/UL (4.8-10.8) Red Blood Count 4.42 M/UL (4.20-5.40) Hemoglobin 12.7 G/DL (12.0-16.0) Hematocrit 41.6 % (37.0-47.0) Mean Corpuscular Volume 94 FL (80-99) Mean Corpuscular Hemoglobin 28.7 PG (27.0-31.0) Mean Corpuscular Hemoglobin Concent 30.5 G/DL (32.0-36.0) L Red Cell Distribution Width 13.9 % (11.6-14.8) Platelet Count 306 K/UL (150-450) Mean Platelet Volume 7.5 FL (6.5-10.1) Neutrophils (%) (Auto) 76.2 % (45.0-75.0) H Lymphocytes (%) (Auto) 18.5 % (20.0-45.0) L Monocytes (%) (Auto) 4.0 % (1.0-10.0) Eosinophils (%) (Auto) 0.7 % (0.0-3.0) Basophils (%) (Auto) 0.6 % (0.0-2.0) Sodium Level 139 mEQ/L (135-145) Potassium Level 4.0 mEQ/L (3.4-4.9) Chloride Level 91 mEQ/L (98-107) L Carbon Dioxide Level 29 mEQ/L (20-30) Anion Gap 19 (5-15) H Blood Urea Nitrogen 10 mg/dL (7-23) Creatinine 1.3 mg/dL (0.5-0.9) H Estimat Glomerular Filtration Rate 54.9 mL/min (>60) Glucose Level 582 mg/dL (74-106) *H Calcium Level 9.2 mg/dL (8.6-10.2) Phosphorus Level 3.4 mg/dL (2.5-4.8) Magnesium Level 1.5 mg/dL (1.7-2.5) L Total Bilirubin < 0.2 mg/dL (0.0-1.2) Aspartate Amino Transf (AST/SGOT) 13 U/L (5-40) Alanine Aminotransferase (ALT/SGPT) 8 U/L (3-33) Alkaline Phosphatase 120 U/L (35-104) H Pro-B-Type Natriuretic Peptide 224 pg/mL (0-125) H Total Protein 7.0 g/dL (6.6-8.7) Albumin 3.7 g/dL (3.5-5.2) Globulin 3.3 g/dL Albumin/Globulin Ratio 1.1 (1.0-2.7) Height (Feet): 5 Height (Inches): 5.00 Weight (Pounds): 130 General Appearance: no apparent distress, alert Cardiovascular: normal rate Respiratory/Chest: normal breath sounds, no respiratory distress Abdominal Exam: normal bowel sounds, non tender, soft Extremities: normal range of motion Muriel Serra N.P. May 05, 2017 10:40
--- NOTE | 2017-05-05 13:08 | General Progress Note ---
Assessment/Plan Problem List: (1) Esophagitis ICD Codes: K20.9 - Esophagitis, unspecified SNOMED: 35105476 (2) Anemia ICD Codes: D64.9 - Anemia, unspecified SNOMED: 627470818 (3) Diabetes ICD Codes: E11.9 - Type 2 diabetes mellitus without complications SNOMED: 38563801 (4) HTN (hypertension) ICD Codes: I10 - Essential (primary) hypertension SNOMED: 01947424 (5) Gastroparesis due to DM ICD Codes: E11.43 - Type 2 diabetes mellitus with diabetic autonomic (poly) neuropathy; K31.84 - Gastroparesis SNOMED: 45306429, 699738444 Status: progressing Assessment/Plan afebrile no wheezing vitals stable no bleeding reviewed chart and labs Subjective ROS Limited/Unobtainable: Yes Constitutional: Reports: no symptoms HEENT: Reports: no symptoms Allergies: Coded Allergies: No Known Allergies (Verified , NONE, 04/29/17) Objective Last 24 Hour Vital Signs Date Time Temp Pulse Resp B/P Pulse Ox O2 Delivery O2 Flow Rate FiO2 05/05/17 09:38 135/93 05/05/17 09:35 98.1 82 18 135/93 100 Room Air 05/05/17 08:01 80 14 Room Air 21 05/05/17 00:40 78 108/68 05/05/17 00:00 97.0 75 18 92/57 97 Room Air 05/04/17 21:10 87 107/71 05/04/17 20:14 82 15 Room Air 21 05/04/17 20:00 97.7 82 18 90/65 100 Room Air 05/04/17 17:41 100/70 05/04/17 16:00 97.9 57 18 100/70 94 Room Air Intake and Output 05/04/17 05/05/17 19:00 07:00 Intake Total 360 ml Balance 360 ml Intake Oral 360 ml # Voids 3 Height (Feet): 5 Height (Inches): 5.00 Weight (Pounds): 130 Cardiovascular: normal rate Respiratory/Chest: lungs clear Abdomen: soft Rickie Vera MD May 05, 2017 13:08
--- NOTE | 2017-05-05 15:28 | Infectious Diseases Prog Note ---
Assessment/Plan Problems: (1) Localized swelling on right hand Assessment & Plan: resolved , due to infiltrated iv line, no need for antibiotics for it , avoid placing lines in the same area (2) ARF (acute renal failure) Assessment & Plan: improving, suspect dehydration, recommend ivf for hydration , and urine output monitor . (3) Psychiatric disorder Assessment & Plan: recommend psych eval for medications adjustment to control her disease (4) Uncontrolled diabetes mellitus Assessment & Plan: recommend tight glycemic control to keep blood glucose between 80-120 Subjective ROS Limited/Unobtainable: Yes Allergies: Coded Allergies: No Known Allergies (Verified , NONE, 04/29/17) Subjective she refused to answer questions at this time Objective Vital Signs Last 24 Hour Vital Signs Date Time Temp Pulse Resp B/P Pulse Ox O2 Delivery O2 Flow Rate FiO2 05/05/17 09:38 135/93 05/05/17 09:35 98.1 82 18 135/93 100 Room Air 05/05/17 08:01 80 14 Room Air 21 05/05/17 00:40 78 108/68 05/05/17 00:00 97.0 75 18 92/57 97 Room Air 05/04/17 21:10 87 107/71 05/04/17 20:14 82 15 Room Air 21 05/04/17 20:00 97.7 82 18 90/65 100 Room Air 05/04/17 17:41 100/70 05/04/17 16:00 97.9 57 18 100/70 94 Room Air Height (Feet): 5 Height (Inches): 5.00 Weight (Pounds): 130 General Appearance: WD/WN, no acute distress HEENT: normocephalic, atraumatic, anicteric, mucous membranes moist Respiratory/Chest: chest wall non-tender, lungs clear, normal breath sounds, no respiratory distress Cardiovascular: normal peripheral pulses, normal rate, regular rhythm, no gallop/murmur, no JVD Abdomen: normal bowel sounds, soft, non tender, no organomegaly, non distended Extremities: no cyanosis, no clubbing Skin: no rash, no lesions Microbiology Date/Time Source Procedure Growth Status 05/02/17 15:30 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 Complete Current Medications Medications (Trade) Dose Ordered Sig/Mateo Route PRN Reason Start Time Stop Time Status Last Admin Dose Admin Acetaminophen (Tylenol) 650 mg Q4H PRN ORAL fever 05/02/17 18:00 06/01/17 17:59 Al Hydroxide/Mg Hydroxide (Mylanta II) 30 ml Q6H PRN ORAL dyspepsia 05/02/17 18:00 06/01/17 17:59 Albuterol/ Ipratropium (DuoNeb 0.5-3(2.5)mg/3ml) 3 ml EVERY 4 HOURS PRN HHN Shortness of Breath 05/02/17 18:00 05/07/17 17:59 Calcium Carbonate (Os-Osvaldo) 1,250 mg DAILY ORAL 05/03/17 09:00 06/02/17 08:59 05/05/17 09:38 Chlorhexidine Gluconate (Mara-Hex 2%) 1 applic DAILY TOPIC 05/05/17 18:00 06/04/17 17:59 Clonidine HCl (Catapres) 0.1 mg EVERY 4 HOURS PRN ORAL sbp more than 160 05/02/17 18:00 06/01/17 17:59 Dextrose (Dextrose 50%) STAT PRN IV Hypoglycemia 05/02/17 18:00 06/01/17 17:59 Divalproex Sodium (Depakote ER) 1,000 mg QHS ORAL 05/02/17 21:00 06/01/17 20:59 05/04/17 20:14 Heparin Sodium (Porcine) (Heparin 5000 units/ml) 5,000 units EVERY 12 HOURS SUBQ 05/02/17 21:00 06/01/17 20:59 05/04/17 20:12 Heparin Sodium/ Sodium Chloride (Heparin 2000 units/Ns 1000ml premix) 2,000 unit ONCE PRN INJ PICC PLACEMENT 05/03/17 12:00 05/05/17 23:59 Insulin Aspart (NovoLOG) BEFORE MEALS AND HS SUBQ 05/02/17 21:00 06/01/17 20:59 05/05/17 12:18 Insulin Aspart (NovoLOG) 5 units NOVOTIAC SUBQ 05/03/17 06:30 06/02/17 06:29 05/05/17 12:17 Insulin Detemir (Levemir) 8 units BID SUBQ 05/02/17 23:30 06/01/17 23:29 05/05/17 09:41 Ketorolac Tromethamine (Toradol 30mg) 30 mg EVERY 6 HOURS PRN IV moderate pain 4-6 05/02/17 18:00 05/07/17 17:59 Lidocaine HCl (Xylocaine 1% 30ml) 30 ml ONCE PRN INJ PICC PLACEMENT 05/03/17 12:00 05/05/17 23:59 Lisinopril (Zestril) 10 mg BID ORAL 05/04/17 18:00 06/03/17 17:59 05/05/17 09:38 Magnesium Oxide (Mag-Ox 400mg) 400 mg TID ORAL 05/02/17 21:00 06/01/17 20:59 05/05/17 09:38 Metoclopramide HCl (Reglan) 10 mg Q6H PRN ORAL Nausea & Vomiting 05/04/17 09:45 06/03/17 09:44 05/04/17 10:52 Morphine Sulfate (Morphine Sulfate) 2 mg EVERY 4 HOURS PRN IVP severe pain 7-10 05/02/17 18:00 05/09/17 17:59 Nitroglycerin (Ntg) 0.4 mg Q5M X 3 DOSES PRN SL Prn Chest Pain 05/02/17 18:00 06/01/17 17:59 Ondansetron HCl (Zofran) 4 mg Q6H PRN IVP Nausea & Vomiting 05/02/17 18:00 06/01/17 17:59 05/03/17 06:22 Pantoprazole 40 mg 40 mg DAILY ORAL 05/03/17 09:00 06/02/17 08:59 05/05/17 09:38 Polyethylene Glycol (Miralax) 17 gm HSPRN PRN ORAL Constipation 05/02/17 18:00 06/01/17 17:59 Sodium Bicarbonate (Sodium Bicarbonate 4%) 1 ml ONCE PRN INJ PICC PLACEMENT 05/03/17 12:00 05/05/17 23:59 Sodium Chloride (Sodium Chloride 1000ml bag) 1,000 ml @ 100 mls/hr Q10H IVLG 05/02/17 18:30 06/01/17 18:29 05/03/17 04:32 Temazepam (Restoril) 15 mg HSPRN PRN ORAL Insomnia 05/02/17 18:00 05/09/17 17:59 05/04/17 20:12 Choco Lozada M.D. May 05, 2017 15:28
[2017-05-05 15:59] VITALS: BP 151/105
[2017-05-05] MEDS: Dyna-Hex 2% Top Sol 8oz TOPIC SCH (18:00)
[2017-05-05 18:47] VITALS: BP 132/98
--- NOTE | 2017-05-05 19:03 | Cardiac Electrophysiology PN ---
Assessment/Plan Assessment/Plan 1. Hypertension.Better on lisinopril 10 bid. 2. Uncontrolled diabetes. Further evaluation by Dr. Alejo. 3. Noncompliance. 4. Diabetic gastroparesis and esophagitis as well as intractable nausea and vomiting. Further evaluation by Dr. Vickers. 5. Psychosis DW RN Stable from Cardiac standpoint to DC Subjective Subjective No new events.Comfortable in NAD. Wants to go home.RN at bedside. Objective Last 24 Hour Vital Signs Date Time Temp Pulse Resp B/P Pulse Ox O2 Delivery O2 Flow Rate FiO2 05/05/17 18:47 81 132/98 05/05/17 18:43 132/98 05/05/17 15:59 97.9 84 20 151/105 99 Room Air 05/05/17 09:38 135/93 05/05/17 09:35 98.1 82 18 135/93 100 Room Air 05/05/17 08:01 80 14 Room Air 21 05/05/17 00:40 78 108/68 05/05/17 00:00 97.0 75 18 92/57 97 Room Air 05/04/17 21:10 87 107/71 05/04/17 20:14 82 15 Room Air 21 05/04/17 20:00 97.7 82 18 90/65 100 Room Air Intake and Output 05/04/17 05/05/17 19:00 07:00 Intake Total 360 ml Balance 360 ml Intake Oral 360 ml # Voids 3 Labs Test 05/04/17 12:30 White Blood Count 9.1 K/UL (4.8-10.8) Red Blood Count 4.42 M/UL (4.20-5.40) Hemoglobin 12.7 G/DL (12.0-16.0) Hematocrit 41.6 % (37.0-47.0) Mean Corpuscular Volume 94 FL (80-99) Mean Corpuscular Hemoglobin 28.7 PG (27.0-31.0) Mean Corpuscular Hemoglobin Concent 30.5 G/DL (32.0-36.0) Red Cell Distribution Width 13.9 % (11.6-14.8) Platelet Count 306 K/UL (150-450) Mean Platelet Volume 7.5 FL (6.5-10.1) Neutrophils (%) (Auto) 76.2 % (45.0-75.0) Lymphocytes (%) (Auto) 18.5 % (20.0-45.0) Monocytes (%) (Auto) 4.0 % (1.0-10.0) Eosinophils (%) (Auto) 0.7 % (0.0-3.0) Basophils (%) (Auto) 0.6 % (0.0-2.0) Sodium Level 139 mEQ/L (135-145) Potassium Level 4.0 mEQ/L (3.4-4.9) Chloride Level 91 mEQ/L (98-107) Carbon Dioxide Level 29 mEQ/L (20-30) Anion Gap 19 (5-15) Blood Urea Nitrogen 10 mg/dL (7-23) Creatinine 1.3 mg/dL (0.5-0.9) Estimat Glomerular Filtration Rate 54.9 mL/min (>60) Glucose Level 582 mg/dL (74-106) Calcium Level 9.2 mg/dL (8.6-10.2) Phosphorus Level 3.4 mg/dL (2.5-4.8) Magnesium Level 1.5 mg/dL (1.7-2.5) Total Bilirubin < 0.2 mg/dL (0.0-1.2) Aspartate Amino Transf (AST/SGOT) 13 U/L (5-40) Alanine Aminotransferase (ALT/SGPT) 8 U/L (3-33) Alkaline Phosphatase 120 U/L (35-104) Pro-B-Type Natriuretic Peptide 224 pg/mL (0-125) Total Protein 7.0 g/dL (6.6-8.7) Albumin 3.7 g/dL (3.5-5.2) Globulin 3.3 g/dL Albumin/Globulin Ratio 1.1 (1.0-2.7) Objective HEAD AND NECK: No JVD or carotid bruit. LUNGS: Clear. CARDIOVASCULAR: Regular S1 and S2 with no gallop or murmur. ABDOMEN: Soft. EXTREMITIES: No pitting edema. MARCIA PINTO May 05, 2017 19:03
[2017-05-05 20:00] VITALS: BP 130/99
[2017-05-05] MEDS: Depakote ER 500mg tab ORAL SCH (20:50)
--- NOTE | 2017-05-05 21:54 | Pulmonology Progress Note ---
Assessment/Plan Problems: (1) Hyperglycemia (2) Non compliance with medical treatment (3) Psychiatric disorder (4) HTN (hypertension) (5) Intractable nausea and vomiting Assessment/Plan blood sugar still high refusing levemir non compliant with meds psych evaluation probably needs to be in a long term care administrator psych facility Subjective ROS Limited/Unobtainable: No Allergies: Coded Allergies: No Known Allergies (Verified , NONE, 04/29/17) Objective Last 24 Hour Vital Signs Date Time Temp Pulse Resp B/P Pulse Ox O2 Delivery O2 Flow Rate FiO2 05/05/17 20:00 97.7 83 20 130/99 100 Room Air 05/05/17 19:50 82 16 Room Air 21 05/05/17 18:47 81 132/98 05/05/17 18:43 132/98 05/05/17 15:59 97.9 84 20 151/105 99 Room Air 05/05/17 09:38 135/93 05/05/17 09:35 98.1 82 18 135/93 100 Room Air 05/05/17 08:01 80 14 Room Air 21 05/05/17 00:40 78 108/68 05/05/17 00:00 97.0 75 18 92/57 97 Room Air Intake and Output 05/04/17 05/05/17 19:00 07:00 Intake Total 360 ml Balance 360 ml Intake Oral 360 ml # Voids 3 General Appearance: WD/WN HEENT: normocephalic, atraumatic, PERRL Respiratory/Chest: chest wall non-tender Cardiovascular: normal peripheral pulses, normal rate Abdomen: soft, non tender, non distended Current Medications Medications (Trade) Dose Ordered Sig/Mateo Route PRN Reason Start Time Stop Time Status Last Admin Dose Admin Acetaminophen (Tylenol) 650 mg Q4H PRN ORAL fever 05/02/17 18:00 06/01/17 17:59 Al Hydroxide/Mg Hydroxide (Mylanta II) 30 ml Q6H PRN ORAL dyspepsia 05/02/17 18:00 06/01/17 17:59 Albuterol/ Ipratropium (DuoNeb 0.5-3(2.5)mg/3ml) 3 ml EVERY 4 HOURS PRN HHN Shortness of Breath 05/02/17 18:00 05/07/17 17:59 Calcium Carbonate (Os-Osvaldo) 1,250 mg DAILY ORAL 05/03/17 09:00 06/02/17 08:59 05/05/17 09:38 Chlorhexidine Gluconate (Mara-Hex 2%) 1 applic DAILY TOPIC 05/05/17 18:00 06/04/17 17:59 Clonidine HCl (Catapres) 0.1 mg EVERY 4 HOURS PRN ORAL sbp more than 160 05/02/17 18:00 06/01/17 17:59 Dextrose (Dextrose 50%) STAT PRN IV Hypoglycemia 05/02/17 18:00 06/01/17 17:59 Divalproex Sodium (Depakote ER) 1,000 mg QHS ORAL 05/02/17 21:00 06/01/17 20:59 05/05/17 20:50 Heparin Sodium (Porcine) (Heparin 5000 units/ml) 5,000 units EVERY 12 HOURS SUBQ 05/02/17 21:00 06/01/17 20:59 05/05/17 20:51 Heparin Sodium/ Sodium Chloride (Heparin 2000 units/Ns 1000ml premix) 2,000 unit ONCE PRN INJ PICC PLACEMENT 05/03/17 12:00 05/05/17 23:59 Insulin Aspart (NovoLOG) BEFORE MEALS AND HS SUBQ 05/02/17 21:00 06/01/17 20:59 05/05/17 20:53 Insulin Aspart (NovoLOG) 5 units NOVOTIAC SUBQ 05/03/17 06:30 06/02/17 06:29 05/05/17 17:28 Insulin Detemir (Levemir) 8 units BID SUBQ 05/02/17 23:30 06/01/17 23:29 05/05/17 18:38 Ketorolac Tromethamine (Toradol 30mg) 30 mg EVERY 6 HOURS PRN IV moderate pain 4-6 05/02/17 18:00 05/07/17 17:59 Lidocaine HCl (Xylocaine 1% 30ml) 30 ml ONCE PRN INJ PICC PLACEMENT 05/03/17 12:00 05/05/17 23:59 Lisinopril (Zestril) 10 mg BID ORAL 05/04/17 18:00 06/03/17 17:59 05/05/17 18:43 Magnesium Oxide (Mag-Ox 400mg) 400 mg TID ORAL 05/02/17 21:00 06/01/17 20:59 05/05/17 18:42 Metoclopramide HCl (Reglan) 10 mg Q6H PRN ORAL Nausea & Vomiting 05/04/17 09:45 06/03/17 09:44 05/04/17 10:52 Morphine Sulfate (Morphine Sulfate) 2 mg EVERY 4 HOURS PRN IVP severe pain 705/02/17 18:00 05/09/17 17:59 Nitroglycerin (Ntg) 0.4 mg Q5M X 3 DOSES PRN SL Prn Chest Pain 05/02/17 18:00 06/01/17 17:59 Ondansetron HCl (Zofran) 4 mg Q6H PRN IVP Nausea & Vomiting 05/02/17 18:00 06/01/17 17:59 05/03/17 06:22 Pantoprazole 40 mg 40 mg DAILY ORAL 05/03/17 09:00 06/02/17 08:59 05/05/17 09:38 Polyethylene Glycol (Miralax) 17 gm HSPRN PRN ORAL Constipation 05/02/17 18:00 06/01/17 17:59 Sodium Bicarbonate (Sodium Bicarbonate 4%) 1 ml ONCE PRN INJ PICC PLACEMENT 05/03/17 12:00 05/05/17 23:59 Sodium Chloride (Sodium Chloride 1000ml bag) 1,000 ml @ 100 mls/hr Q10H IVLG 05/02/17 18:30 06/01/17 18:29 05/03/17 04:32 Temazepam (Restoril) 15 mg HSPRN PRN ORAL Insomnia 05/02/17 18:00 05/09/17 17:59 05/05/17 20:50 MILA LAINEZ May 05, 2017 21:54
[2017-05-06] VITALS: BP 117/83
[2017-05-06 04:00] VITALS: BP 124/79
[2017-05-06] MEDS: NovoLOG Insulin Flexpen SUBQ SCH ×3 (06:17→10:19)
[2017-05-06] MEDS: Dyna-Hex 2% Top Sol 8oz TOPIC SCH (09:00)
[2017-05-06] MEDS: Levemir Flexpen SUBQ SCH (10:18)
[2017-05-06 10:27] VITALS: BP 124/79
[2017-05-06] MEDS: Lisinopril 10mg tab ORAL SCH (10:27)
[2017-05-06] MEDS: Magnesium Oxide 400mg tab ORAL SCH ×2 (10:27→13:32)
[2017-05-06] MEDS: Heparin 5000 units/ml inj SUBQ SCH (10:28)
[2017-05-06] MEDS ORDERED: Levemir Flexpen SUBQ ONE (12:00)
[2017-05-06] MEDS ORDERED: NovoLOG Insulin Flexpen SUBQ SCH ×2 (12:00)
--- NOTE | 2017-05-06 12:55 | Diagnostic Imaging Report ---
APPROVED REPORT CPT Code: 95957 Present Symptoms Upper Extremity Pain: Right RIGHT UPPER EXTREMITY (Deep venous system): Imaging reveals patency of the internal jugular, subclavian, axillary and brachial veins. Doppler indicates normal spontaneous flow within these venous segments.
--- NOTE | 2017-05-06 13:12 | General Progress Note ---
Assessment/Plan Problem List: (1) Esophagitis ICD Codes: K20.9 - Esophagitis, unspecified SNOMED: 34412199 (2) Anemia ICD Codes: D64.9 - Anemia, unspecified SNOMED: 819967725 (3) Diabetes ICD Codes: E11.9 - Type 2 diabetes mellitus without complications SNOMED: 64191937 (4) HTN (hypertension) ICD Codes: I10 - Essential (primary) hypertension SNOMED: 99137759 (5) Gastroparesis due to DM ICD Codes: E11.43 - Type 2 diabetes mellitus with diabetic autonomic (poly) neuropathy; K31.84 - Gastroparesis SNOMED: 24065392, 334164706 Status: progressing Assessment/Plan afebrile no wheezing no bleeding no sob reviewed chart and labs not ready for dc due to elevated bg/labile dm Subjective ROS Limited/Unobtainable: Yes Constitutional: Reports: no symptoms Allergies: Coded Allergies: No Known Allergies (Verified , NONE, 04/29/17) Objective Last 24 Hour Vital Signs Date Time Temp Pulse Resp B/P Pulse Ox O2 Delivery O2 Flow Rate FiO2 05/06/17 10:27 124/79 05/06/17 06:42 85 16 Room Air 05/06/17 04:00 98.1 85 20 124/79 98 Room Air 05/06/17 00:00 97.9 88 20 117/83 100 Room Air 05/05/17 20:00 97.7 83 20 130/99 100 Room Air 05/05/17 19:50 82 16 Room Air 21 05/05/17 18:47 81 132/98 05/05/17 18:43 132/98 05/05/17 15:59 97.9 84 20 151/105 99 Room Air Intake and Output 05/05/17 05/06/17 19:00 07:00 Intake Total 600 ml Balance 600 ml Intake Oral 600 ml # Voids 3 5 # Bowel Movements 1 Height (Feet): 5 Height (Inches): 5.00 Weight (Pounds): 130 EENT: PERRL/EOMI Neck: supple Cardiovascular: normal rate Respiratory/Chest: lungs clear Abdomen: soft Rickie Vera MD May 06, 2017 13:12
--- NOTE | 2017-05-06 14:37 | Infectious Diseases Prog Note ---
Assessment/Plan Problems: (1) Localized swelling on right hand Assessment & Plan: resolved , due to infiltrated iv line, no need for antibiotics for it , avoid placing lines in the same area (2) ARF (acute renal failure) Assessment & Plan: improving, suspect dehydration, recommend ivf for hydration , and urine output monitor . (3) Psychiatric disorder Assessment & Plan: recommend psych eval for medications adjustment to control her disease (4) Uncontrolled diabetes mellitus Assessment & Plan: recommend tight glycemic control to keep blood glucose between 80-120 Subjective ROS Limited/Unobtainable: Yes Allergies: Coded Allergies: No Known Allergies (Verified , NONE, 04/29/17) Subjective she is psychotic and refused to answer questions at this time Objective Vital Signs Last 24 Hour Vital Signs Date Time Temp Pulse Resp B/P Pulse Ox O2 Delivery O2 Flow Rate FiO2 05/06/17 10:27 124/79 05/06/17 06:42 85 16 Room Air 05/06/17 04:00 98.1 85 20 124/79 98 Room Air 05/06/17 00:00 97.9 88 20 117/83 100 Room Air 05/05/17 20:00 97.7 83 20 130/99 100 Room Air 05/05/17 19:50 82 16 Room Air 21 05/05/17 18:47 81 132/98 05/05/17 18:43 132/98 05/05/17 15:59 97.9 84 20 151/105 99 Room Air Height (Feet): 5 Height (Inches): 5.00 Weight (Pounds): 130 General Appearance: WD/WN, no acute distress HEENT: normocephalic, atraumatic, anicteric Respiratory/Chest: chest wall non-tender, lungs clear, normal breath sounds, no respiratory distress, no accessory muscle use Cardiovascular: normal peripheral pulses, normal rate, regular rhythm, no gallop/murmur Abdomen: normal bowel sounds, soft, non tender, no organomegaly, non distended , no mass Extremities: no cyanosis, no clubbing Skin: no rash, no lesions Current Medications Medications (Trade) Dose Ordered Sig/Mateo Route PRN Reason Start Time Stop Time Status Last Admin Dose Admin Acetaminophen (Tylenol) 650 mg Q4H PRN ORAL fever 05/02/17 18:00 06/01/17 17:59 Al Hydroxide/Mg Hydroxide (Mylanta II) 30 ml Q6H PRN ORAL dyspepsia 05/02/17 18:00 06/01/17 17:59 Albuterol/ Ipratropium (DuoNeb 0.5-3(2.5)mg/3ml) 3 ml EVERY 4 HOURS PRN HHN Shortness of Breath 05/02/17 18:00 05/07/17 17:59 Calcium Carbonate (Os-Osvaldo) 1,250 mg DAILY ORAL 05/03/17 09:00 06/02/17 08:59 05/06/17 10:27 Chlorhexidine Gluconate (Mara-Hex 2%) 1 applic DAILY TOPIC 05/05/17 18:00 06/04/17 17:59 Clonidine HCl (Catapres) 0.1 mg EVERY 4 HOURS PRN ORAL sbp more than 160 05/02/17 18:00 06/01/17 17:59 Dextrose (Dextrose 50%) STAT PRN IV Hypoglycemia 05/06/17 11:15 06/05/17 11:14 Divalproex Sodium (Depakote ER) 1,000 mg QHS ORAL 05/02/17 21:00 06/01/17 20:59 05/05/17 20:50 Heparin Sodium (Porcine) (Heparin 5000 units/ml) 5,000 units EVERY 12 HOURS SUBQ 05/02/17 21:00 06/01/17 20:59 05/06/17 10:28 Insulin Aspart (NovoLOG) BEFORE MEALS AND HS SUBQ 05/06/17 12:00 06/05/17 11:59 05/06/17 12:09 Insulin Aspart (NovoLOG) 10 units TIAC SUBQ 05/06/17 12:00 06/05/17 11:59 05/06/17 11:39 Insulin Detemir (Levemir) 15 units Q12HR SUBQ 05/06/17 21:00 06/05/17 20:59 Ketorolac Tromethamine (Toradol 30mg) 30 mg EVERY 6 HOURS PRN IV moderate pain 4-6 05/02/17 18:00 05/07/17 17:59 Lisinopril (Zestril) 10 mg BID ORAL 05/04/17 18:00 06/03/17 17:59 05/06/17 10:27 Magnesium Oxide (Mag-Ox 400mg) 400 mg TID ORAL 05/02/17 21:00 06/01/17 20:59 05/06/17 13:32 Metoclopramide HCl (Reglan) 10 mg Q6H PRN ORAL Nausea & Vomiting 05/04/17 09:45 06/03/17 09:44 05/04/17 10:52 Morphine Sulfate (Morphine Sulfate) 2 mg EVERY 4 HOURS PRN IVP severe pain 705/02/17 18:00 05/09/17 17:59 Nitroglycerin (Ntg) 0.4 mg Q5M X 3 DOSES PRN SL Prn Chest Pain 05/02/17 18:00 06/01/17 17:59 Ondansetron HCl (Zofran) 4 mg Q6H PRN IVP Nausea & Vomiting 05/02/17 18:00 06/01/17 17:59 05/03/17 06:22 Pantoprazole 40 mg 40 mg DAILY ORAL 05/03/17 09:00 06/02/17 08:59 05/06/17 10:27 Polyethylene Glycol (Miralax) 17 gm HSPRN PRN ORAL Constipation 05/02/17 18:00 06/01/17 17:59 Sodium Chloride (Sodium Chloride 1000ml bag) 1,000 ml @ 100 mls/hr Q10H IVLG 05/02/17 18:30 06/01/17 18:29 05/03/17 04:32 Temazepam (Restoril) 15 mg HSPRN PRN ORAL Insomnia 05/02/17 18:00 05/09/17 17:59 05/05/17 20:50 Choco Lozada M.D. May 06, 2017 14:37
--- NOTE | 2017-05-06 15:07 | GI Progress Note ---
Assessment/Plan Problems: (1) Non compliance with medical treatment ICD Codes: Z91.19 - Patient's noncompliance with other medical treatment and regimen SNOMED: 7951799 (2) Altered mental status ICD Codes: R41.82 - Altered mental status, unspecified SNOMED: 467180164 (3) Hyperglycemia ICD Codes: R73.9 - Hyperglycemia, unspecified SNOMED: 13590477 (4) Gastroparesis due to DM ICD Codes: E11.43 - Type 2 diabetes mellitus with diabetic autonomic (poly) neuropathy; K31.84 - Gastroparesis SNOMED: 72031692, 248693918 (5) Diabetes ICD Codes: E11.9 - Type 2 diabetes mellitus without complications SNOMED: 39131732 (6) Anemia ICD Codes: D64.9 - Anemia, unspecified SNOMED: 535001345 (7) Esophagitis ICD Codes: K20.9 - Esophagitis, unspecified SNOMED: 03200313 (8) Intractable nausea and vomiting ICD Codes: R11.2 - Nausea with vomiting, unspecified SNOMED: 679160414, 354548765 Status: stable Status Narrative Discussed with Dr. Vickers. Assessment/Plan ok for DC per Gi standpoint ADA diet zofran prn DM mgmt reglan IV ppi IV hydration + electrolyte replacement fu labs Subjective Gastrointestinal/Abdominal: Reports: no symptoms Objective Last 24 Hour Vital Signs Date Time Temp Pulse Resp B/P Pulse Ox O2 Delivery O2 Flow Rate FiO2 05/06/17 10:27 124/79 05/06/17 06:42 85 16 Room Air 05/06/17 04:00 98.1 85 20 124/79 98 Room Air 05/06/17 00:00 97.9 88 20 117/83 100 Room Air 05/05/17 20:00 97.7 83 20 130/99 100 Room Air 05/05/17 19:50 82 16 Room Air 21 05/05/17 18:47 81 132/98 05/05/17 18:43 132/98 05/05/17 15:59 97.9 84 20 151/105 99 Room Air Intake and Output 05/05/17 05/06/17 19:00 07:00 Intake Total 600 ml Balance 600 ml Intake Oral 600 ml # Voids 3 5 # Bowel Movements 1 Height (Feet): 5 Height (Inches): 5.00 Weight (Pounds): 130 General Appearance: no apparent distress, alert Cardiovascular: normal rate Respiratory/Chest: normal breath sounds, no respiratory distress Abdominal Exam: normal bowel sounds, non tender, soft Extremities: normal range of motion Muriel Serra N.P. May 06, 2017 15:07
--- NOTE | 2017-05-06 15:13 | Pulmonology Progress Note ---
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 Subjective ROS Limited/Unobtainable: No Constitutional: Reports: no symptoms HEENT: Repors: no symptoms Respiratory: Reports: no symptoms Cardiovascular: Reports: no symptoms Allergies: Coded Allergies: No Known Allergies (Verified , NONE, 04/29/17) Objective Last 24 Hour Vital Signs Date Time Temp Pulse Resp B/P Pulse Ox O2 Delivery O2 Flow Rate FiO2 05/06/17 10:27 124/79 05/06/17 06:42 85 16 Room Air 05/06/17 04:00 98.1 85 20 124/79 98 Room Air 05/06/17 00:00 97.9 88 20 117/83 100 Room Air 05/05/17 20:00 97.7 83 20 130/99 100 Room Air 05/05/17 19:50 82 16 Room Air 21 05/05/17 18:47 81 132/98 05/05/17 18:43 132/98 05/05/17 15:59 97.9 84 20 151/105 99 Room Air Intake and Output 05/05/17 05/06/17 19:00 07:00 Intake Total 600 ml Balance 600 ml Intake Oral 600 ml # Voids 3 5 # Bowel Movements 1 General Appearance: WD/WN HEENT: normocephalic Respiratory/Chest: chest wall non-tender, lungs clear Breasts: no masses Cardiovascular: normal peripheral pulses Abdomen: normal bowel sounds, soft, non tender Genitourinary: normal external genitalia Extremities: no cyanosis 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 Lymphatic: no neck adenopathy Current Medications Medications (Trade) Dose Ordered Sig/Mateo Route PRN Reason Start Time Stop Time Status Last Admin Dose Admin Acetaminophen (Tylenol) 650 mg Q4H PRN ORAL fever 05/02/17 18:00 06/01/17 17:59 Al Hydroxide/Mg Hydroxide (Mylanta II) 30 ml Q6H PRN ORAL dyspepsia 05/02/17 18:00 06/01/17 17:59 Albuterol/ Ipratropium (DuoNeb 0.5-3(2.5)mg/3ml) 3 ml EVERY 4 HOURS PRN HHN Shortness of Breath 05/02/17 18:00 05/07/17 17:59 Calcium Carbonate (Os-Osvaldo) 1,250 mg DAILY ORAL 05/03/17 09:00 06/02/17 08:59 05/06/17 10:27 Chlorhexidine Gluconate (Mara-Hex 2%) 1 applic DAILY TOPIC 05/05/17 18:00 06/04/17 17:59 Clonidine HCl (Catapres) 0.1 mg EVERY 4 HOURS PRN ORAL sbp more than 160 05/02/17 18:00 06/01/17 17:59 Dextrose (Dextrose 50%) STAT PRN IV Hypoglycemia 05/06/17 11:15 06/05/17 11:14 Divalproex Sodium (Depakote ER) 1,000 mg QHS ORAL 05/02/17 21:00 06/01/17 20:59 05/05/17 20:50 Heparin Sodium (Porcine) (Heparin 5000 units/ml) 5,000 units EVERY 12 HOURS SUBQ 05/02/17 21:00 06/01/17 20:59 05/06/17 10:28 Insulin Aspart (NovoLOG) BEFORE MEALS AND HS SUBQ 05/06/17 12:00 06/05/17 11:59 05/06/17 12:09 Insulin Aspart (NovoLOG) 10 units TIAC SUBQ 05/06/17 12:00 06/05/17 11:59 05/06/17 11:39 Insulin Detemir (Levemir) 15 units Q12HR SUBQ 05/06/17 21:00 06/05/17 20:59 Ketorolac Tromethamine (Toradol 30mg) 30 mg EVERY 6 HOURS PRN IV moderate pain 4-6 05/02/17 18:00 05/07/17 17:59 Lisinopril (Zestril) 10 mg BID ORAL 05/04/17 18:00 06/03/17 17:59 05/06/17 10:27 Magnesium Oxide (Mag-Ox 400mg) 400 mg TID ORAL 05/02/17 21:00 06/01/17 20:59 05/06/17 13:32 Metoclopramide HCl (Reglan) 10 mg Q6H PRN ORAL Nausea & Vomiting 05/04/17 09:45 06/03/17 09:44 05/04/17 10:52 Morphine Sulfate (Morphine Sulfate) 2 mg EVERY 4 HOURS PRN IVP severe pain 7-05/02/17 18:00 05/09/17 17:59 Nitroglycerin (Ntg) 0.4 mg Q5M X 3 DOSES PRN SL Prn Chest Pain 05/02/17 18:00 06/01/17 17:59 Ondansetron HCl (Zofran) 4 mg Q6H PRN IVP Nausea & Vomiting 05/02/17 18:00 06/01/17 17:59 05/03/17 06:22 Pantoprazole 40 mg 40 mg DAILY ORAL 05/03/17 09:00 06/02/17 08:59 05/06/17 10:27 Polyethylene Glycol (Miralax) 17 gm HSPRN PRN ORAL Constipation 05/02/17 18:00 06/01/17 17:59 Sodium Chloride (Sodium Chloride 1000ml bag) 1,000 ml @ 100 mls/hr Q10H IVLG 05/02/17 18:30 06/01/17 18:29 05/03/17 04:32 Temazepam (Restoril) 15 mg HSPRN PRN ORAL Insomnia 05/02/17 18:00 05/09/17 17:59 05/05/17 20:50 MILA LAINEZ May 06, 2017 15:13
[2017-05-06] MEDS ORDERED: LEVEMIR FL100 UNIT/1 SUBQ (15:19)
[2017-05-06] MEDS ORDERED: NOVOLOG100 UNITS1 SUBQ (15:24)
--- NOTE | 2017-05-06 16:01 | Cardiac Electrophysiology PN ---
Assessment/Plan Assessment/Plan 1. Hypertension.Continue lisinopril 10 bid. 2. Uncontrolled diabetes. under management of Dr. Alejo. 3. Noncompliance. 4. Diabetic gastroparesis and esophagitis as well as intractable nausea and vomiting. Resolved 5. Psychosis DW RN Subjective Subjective No new events.Comfortable in NAD. RN at bedside.Awaiting DC today. Objective Last 24 Hour Vital Signs Date Time Temp Pulse Resp B/P Pulse Ox O2 Delivery O2 Flow Rate FiO2 05/06/17 10:27 124/79 05/06/17 06:42 85 16 Room Air 05/06/17 04:00 98.1 85 20 124/79 98 Room Air 05/06/17 00:00 97.9 88 20 117/83 100 Room Air 05/05/17 20:00 97.7 83 20 130/99 100 Room Air 05/05/17 19:50 82 16 Room Air 21 05/05/17 18:47 81 132/98 05/05/17 18:43 132/98 Intake and Output 05/05/17 05/06/17 19:00 07:00 Intake Total 600 ml Balance 600 ml Intake Oral 600 ml # Voids 3 5 # Bowel Movements 1 Objective HEAD AND NECK: No JVD or carotid bruit. LUNGS: Clear. CARDIOVASCULAR: Regular S1 and S2 with no gallop or murmur. ABDOMEN: Soft. EXTREMITIES: No pitting edema. MARCIA PINTO May 06, 2017 16:01
[2017-05-06] MEDS ORDERED: Levemir Flexpen SUBQ SCH (21:00)
--- NOTE | 2017-05-06 23:00 | Geriatric Medicine Prog Note ---
NOTE: POOR AUDIO QUALITY SUBJECTIVE: The patient . OBJECTIVE: Vital Signs: . IMPRESSION: . Pablo Early M.D. DRKourtney CORONEL JOB#: [id number] CC:
--- NOTE | 2017-05-07 19:55 | Discharge Summary ---
Discharge Summary Hospital Course Date of Admission May 02, 2017 at 16:30 Date of Discharge May 06, 2017 at 16:30 Admitting Diagnosis gastroparesis, intractable vomiting. Uncontrolled HPI Amaya Wallis is a 42 year old female who was admitted on May 02, 2017 at 16:30 for Gastroparesis,Intractable Vomiting, Hospital Course [id number] Discharge Discharge Disposition Patient was discharged to Home (01) Discharge Diagnoses: Estefania Balderas NP May 07, 2017 19:55
--- NOTE | 2017-05-08 01:15 | Discharge Summary 2 SIG ---
DATE OF ADMISSION: 05/02/2017 DATE OF DISCHARGE: 05/06/2017 ATTENDING PHYSICIAN: Brandon Arana D.O. CONSULTANTS: 1. Fred Paz M.D. 2. Rell Salinas M.D. 3. Jarek Vickers M.D. 4. Choco Lozada M.D. 5. Bertin Alejo M.D. BRIEF HOSPITAL COURSE: The patient is a 42-year-old female, who recently just signed against medical advice, presented back to ED, complaining of an intractable vomiting with diffuse abdominal pain. She had previous episodes of gastroparesis. On evaluation at ED, blood glucose was elevated and the patient was unable to tolerate any oral medications. Laboratories showed urinary tract infection. The patient was admitted for further evaluation. She was seen by Dr. Vickers and was given Reglan and proton pump inhibitors and was given lisinopril. Norvasc was discontinued. Blood sugars were monitored, however very difficult, as the patient would refuse insulin and does not follow medical orders and regimen. She was given Levemir and NovoLog ac meals on top of sliding scale. She presented with pain and swelling of the right arm. Venous duplex was negative. Right hand swelling was due to infiltrated intravenous line. She was given cold compress. No need for IV antibiotics. Diet was advanced and was tolerating diet. She was eventually discharged home. FINAL DIAGNOSES: 1. Gastroparesis due to diabetes mellitus. 2. Diabetes mellitus. 3. Hypertension. 4. Anemia. 5. Noncompliance with medical treatment. 6. Hypertension. 7. Psychosis. Fred Paz M.D. I have been assigned to dictate discharge summary on this account and I was not involved in the patient's management. Estefania Balderas N.P. DR: ALYSSIA JOB#: [id number] CC: ALICIA
--- NOTE | 2017-05-08 19:00 | Consultation ---
DATE OF CONSULTATION: 05/05/2017 HISTORY OF PRESENT ILLNESS: The patient is a 42-year-old female with history of multiple medical problems, who has been admitted to the hospital for medical stabilization, nausea and vomiting. Psychiatry was consulted, as the patient was agitated, coming to the nursing station and asking for pain medication and inquire for different things. During the evaluation, the patient was irritable and presented with decreased energy, anhedonia, worthlessness, hopelessness, poor insight and judgment into her mental condition. She also complained of pain. The patient was also complaining of insomnia and was withdrawn. PAST PSYCHIATRIC HISTORY: Diagnosed with depression in the past, has been treated with multiple psychotropic medications including . She also has anxiety disorder. PAST MEDICAL HISTORY: Significant for diabetes, gastroparesis, hypertension and encephalopathic seizures. PAST SURGICAL HISTORY: Unknown. ALLERGIES: No known drug allergies. SUBSTANCE ABUSE HISTORY: No history of illicit drug use or alcohol. SOCIAL HISTORY: Noncontributory. MENTAL STATUS EXAMINATION: The patient is alert and oriented x4. Somewhat uncooperative. Mood is irritable. Affect is constricted, congruent with mood. Thought process is concrete. Thought content, there is no suicidal or homicidal ideation. ASSESSMENT: AXIS I Major depressive disorder. AXIS II Deferred. AXIS III As above. AXIS IV Moderate. AXIS V Global assessment of functioning is 50. PLAN: 1. The patient will be started on Remeron 7.5 mg at bedtime. 2. We will continue the Ativan. 3. We will continue to follow and monitor her symptoms. Jing Jaime M.D. DR: COSMO JOB#: [id number] CC:
== END 2017-05-06 16:30 | disposition home or self-care (01) | DRG 48 ==
LOC: EDBD 11:54 → EMR 12:41 → 4E 16:30 → EDBEDREQ 16:51 → 4E 18:03 → EDBEDREQ 18:36
DX: E11.43 Type 2 diabetes mellitus with diabetic autonomic (poly)neuropathy (principal); G93.40 Encephalopathy, unspecified; N17.9 Acute kidney failure, unspecified; T82.898A Other specified complication of vascular prosthetic devices, implants and grafts, initial encounter; K31.84 Gastroparesis; E11.65 Type 2 diabetes mellitus with hyperglycemia; D64.9 Anemia, unspecified; I10 Essential (primary) hypertension; K20.9 Esophagitis, unspecified; Z91.19 Patient's noncompliance with other medical treatment and regimen; N39.0 Urinary tract infection, site not specified; G40.909 Epilepsy, unspecified, not intractable, without status epilepticus; K21.9 Gastro-esophageal reflux disease without esophagitis; Y84.8 Other medical procedures as the cause of abnormal reaction of the patient, or of later complication, without mention of misadventure at the time of the procedure; F99 Mental disorder, not otherwise specified
CPT/HCPCS: 36415; 80053; 81003; 81025; 82962; 83690; 83735; 83880; 84100; 84484; 85025; 85610; 85730; 87081; 87086; 87181; 93970; 94664; 97803; J1815; J2405; J2765; S5561

== ENCOUNTER 2017-05-30 18:44 | Emergency (ER) | payer OTHER ==
[~2017-05-30] VITALS: Ht 167.6 cm; Wt 49.9 kg
[2017-05-30 18:55] VITALS: BP 138/82
[2017-05-30] MEDS ORDERED: Morphine Sulfate 4mg/ml Inj IVP ONE (19:30)
--- NOTE | 2017-05-30 20:33 | Emergency Room Report ---
History of Present Illness General Chief Complaint: Abdominal Pain Source: Patient, EMS Present Illness HPI The patient presents with vomiting and abdominal pain. Also she has diarrhea. She denies having blood in the diarrhea. She feels weakness. Her blood sugars been out of control recently. She has been taking her insulin. She states the pain is 9-10/10, intermittent and severe. She sometimes gets better when she has bouts of diarrhea. She states that she's had some incontinence. The patient is well known to our facility. She has a history of diabetes with variable compliance. She has a history of diabetic gastroparesis with persistent vomiting. Usually she does not have diarrhea with this. She's been treated with multiple antibiotics recently for urinary tract infections. In the past she's also presented with diabetic ketoacidosis. She was last admitted 05/02 - 05/07. D/C dx 1. Gastroparesis due to diabetes mellitus. 2. Diabetes mellitus. 3. Hypertension. 4. Anemia. 5. Noncompliance with medical treatment. 6. Hypertension. 7. Psychosis. She had a psychiatric evaluation on the and diagnosed at that time with major depression. She is on Remeron 7.5 mg at night's. Most of that no did not address her concerns of prior episodes of psychosis. Allergies: Coded Allergies: No Known Allergies (Verified , NONE, 04/29/17) Patient History Past Medical History: see triage record, old chart reviewed Social History: Denies: alcohol use, drug use, smoking Social History Narrative at home Reviewed Nursing Documentation: PMH: Agreed, PSxH: Agreed Nursing Documentation-PMH Hx Cardiac Problems: Yes Hx Hypertension: Yes Hx Diabetes: Yes Hx Cancer: No Hx Gastrointestinal Problems: Yes - pancreatitis Hx Neurological Problems: Yes Hx Cerebrovascular Accident: Yes Hx Seizures: Yes Hx Vertigo: Yes Hx Dizziness: Yes Hx Headaches: Yes Hx Weakness: Yes Hx Fatigue: Yes Hx Neurologic Surgery: No Review of Systems All Other Systems: negative except mentioned in HPI Physical Exam Vital Signs Date Time Temp Pulse Resp B/P Pulse Ox O2 Delivery O2 Flow Rate FiO2 05/30/17 18:42 99.1 88 16 133/90 99 Room Air Sp02 EP Interpretation: reviewed, normal General Appearance: alert, mild distress, thin, Chronically Ill Head: normocephalic Eyes: bilateral eye normal inspection ENT: moist mucus membranes - poor dentition Neck: supple Respiratory: lungs clear, normal breath sounds Cardiovascular #1: regular rate, rhythm Cardiovascular #2: 2+ femoral (R) Gastrointestinal: no rebound, abnormal bowel sounds - decreased, guarding, tenderness, other - loose diarrhea Musculoskeletal: back normal, normal range of motion Neurologic: alert, oriented x3, motor strength/tone normal, DTRs symmetric, sensory intact, grossly normal Psychiatric: other - in pain Skin: other - sallo with hyperpigmented areas Procedures Central Line Central Line : Consent: Emergent Central Line Lumen: triple Maximal Sterile Barrier Tech: yes cap, yes mask, yes sterile gown, yes sterile gloves, yes large sterile sheet, yes hand hygiene, yes chlorhexidine prep Central Line Postion: femoral (R) Anesthesia: Lidocaine cc's of anesthesia: 3 Central Line Post Position: sutured, good blood return Attempts: One Patient Tolerated: Well Complications: None Progress bloods drawn for lab = 20 ml Medical Decision Making Diagnostic Impression: Primary Impression: Abdominal pain Qualified Codes: R10.84 - Generalized abdominal pain Additional Impressions: Hyperglycemia Diarrhea Qualified Codes: R19.7 - Diarrhea, unspecified ER Course This is a diabetic patient presents with vomiting and diarrhea abdominal pain. In triage her Accu-Chek was 467. She claims she's taking her insulin at this time. Differential includes diabetic ketoacidosis, hyperglycemia, occult infection, C. difficile colitis, diverticulitis, gastroparesis, UTI amongst others. Emergent evaluation is undertaken. The patient had no IV access a central line was started. Bloods were drawn at that time. Initial electrolytes show that she does not have diabetic ketoacidosis however she is hyperglycemic. The patient is somewhat improved with IV hydration and pain medication however due to her comorbidities and the fact she still has abdominal tenderness she'll be transferred for observation. She was discussed with Dr. Sharp who accepted her at [facility]. Laboratory Tests Test 05/30/17 20:30 05/30/17 21:15 Sodium Level 137 mEQ/L (135-145) Potassium Level 3.9 mEQ/L (3.4-4.9) Chloride Level 97 mEQ/L (98-107) L Carbon Dioxide Level 24 mEQ/L (20-30) Anion Gap 16 (5-15) H Blood Urea Nitrogen 17 mg/dL (7-23) Creatinine 1.5 mg/dL (0.5-0.9) H Estimate Glomerular Filtration Rate 46.5 mL/min (>60) Glucose Level 309 mg/dL (74-106) H Calcium Level 10.2 mg/dL (8.6-10.2) Magnesium Level 1.9 mg/dL (1.7-2.5) Total Bilirubin 0.7 mg/dL (0.0-1.2) Aspartate Amino Transferase (AST) 32 U/L (5-40) Alanine Aminotransferase (ALT) 18 U/L (3-33) Alkaline Phosphatase 127 U/L (35-104) H Total Protein 7.7 g/dL (6.6-8.7) Albumin 4.3 g/dL (3.5-5.2) Globulin 3.4 g/dL Albumin/Globulin Ratio 1.2 (1.0-2.7) Lipase 9 U/L (< 60) Acetone Level Negative (NEGATIVE) White Blood Count 8.6 K/UL (4.8-10.8) Red Blood Count 3.54 M/UL (4.20-5.40) L Hemoglobin 11.3 G/DL (12.0-16.0) L Hematocrit 34.1 % (37.0-47.0) L Mean Corpuscular Volume 96 FL (80-99) Mean Corpuscular Hemoglobin 32.0 PG (27.0-31.0) H Mean Corpuscular Hemoglobin Concent 33.2 G/DL (32.0-36.0) Red Cell Distribution Width 14.4 % (11.6-14.8) Platelet Count 226 K/UL (150-450) Mean Platelet Volume 8.4 FL (6.5-10.1) Neutrophils (%) (Auto) 69.1 % (45.0-75.0) Lymphocytes (%) (Auto) 20.1 % (20.0-45.0) Monocytes (%) (Auto) 7.8 % (1.0-10.0) Eosinophils (%) (Auto) 1.9 % (0.0-3.0) Basophils (%) (Auto) 1.1 % (0.0-2.0) EKG Diagnostic Results Rate: normal Rhythm: NSR ST Segments: no acute changes Rhythm Strip Diag. Results EP Interpretation: yes Rhythm: NSR, no PVC's, no ectopy Chest X-Ray Diagnostic Results Chest X-Ray Diagnostic Results : Chest X-Ray Ordered: Yes # of Views/Limited/Complete: 1 View Indication: Other EP Interpretation: Yes Interpretation: no consolidation, no effusion, no pneumothorax, no acute cardiopulmonary disease Impression: No acute disease Interpreting ER Provider: Electronically signed by Koby Mims MD Last Vital Signs Date Time Temp Pulse Resp B/P Pulse Ox O2 Delivery O2 Flow Rate FiO2 05/31/17 00:15 98.6 84 17 145/78 100 Room Air Status: improved [facility] Condition: Serious - stable for transfer Koby Mims M.D. May 30, 2017 20:33
[2017-05-30 21:00] VITALS: BP 137/84
[2017-05-30 21:10] LABS: ALANINE AMINOTRANSFERASE 18 U/L (3-33); ALBUMIN/GLOBULIN RATIO 1.2 (1.0-2.7); ANION GAP 16 (5-15); ASPARTATE AMINO TRANSFERASE 32 U/L (5-40); CALCIUM 10.2 mg/dL (8.6-10.2); CARBON DIOXIDE 24 mEQ/L (20-30); CHLORIDE 97 mEQ/L (98-107); CREATININE 1.5 mg/dL (0.5-0.9); GLOMERULAR FILTRATION RATE 46.5 mL/min (>60); HEMOLYSIS 22; LIPASE 9 U/L (< 60); MAGNESIUM 1.9 mg/dL (1.7-2.5); POTASSIUM 3.9 mEQ/L (3.4-4.9); SODIUM 137 mEQ/L (135-145); TOTAL PROTEIN 7.7 g/dL (6.6-8.7)
[2017-05-30 21:38] LABS: BASOPHILS % (AUTO) 1.1 % (0.0-2.0); EOSINOPHILS % (AUTO) 1.9 % (0.0-3.0); LYMPHOCYTES % (AUTO) 20.1 % (20.0-45.0); MEAN CORPUSCULAR HGB CONC 33.2 G/DL (32.0-36.0); MEAN CORPUSCULAR VOLUME 96 FL (80-99); MEAN PLATELET VOLUME 8.4 FL (6.5-10.1); MONOCYTES % (AUTO) 7.8 % (1.0-10.0); NEUTROPHILS % (AUTO) 69.1 % (45.0-75.0); PLATELET COUNT 226 K/UL (150-450); RED BLOOD COUNT 3.54 M/UL (4.20-5.40); RED CELL DISTRIBUTION WIDTH 14.4 % (11.6-14.8); WHITE BLOOD COUNT 8.6 K/UL (4.8-10.8)
[2017-05-30 23:30] VITALS: BP 145/78
[2017-05-31 00:15] VITALS: BP 145/78
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
== END 2017-05-31 00:15 | disposition short-term general hospital (02) ==
LOC: EDBD 18:44 → EMR 21:51
DX: R10.84 Generalized abdominal pain (principal); E11.65 Type 2 diabetes mellitus with hyperglycemia; R19.7 Diarrhea, unspecified; Z86.73 Personal history of transient ischemic attack (TIA), and cerebral infarction without residual deficits
CPT/HCPCS: 36415; 36569; 71010; 80053; 82009; 83690; 83735; 85025; 93005; 96361; 96374; 96375; 99285; J2270; J2405; Z7502

== ENCOUNTER 2017-06-27 06:40 | Emergency (ER) | payer OTHER ==
[~2017-06-27] VITALS: Ht 167.6 cm; Wt 54.4 kg
[2017-06-27] MEDS ORDERED: Famotidine 20 MG/ 2ML VIAL IVP ONE (06:45)
[2017-06-27 07:16] LABS: BASOPHILS % (AUTO) 0.9 % (0.0-2.0); EOSINOPHILS % (AUTO) 0.3 % (0.0-3.0); LYMPHOCYTES % (AUTO) 17.5 % (20.0-45.0); MEAN CORPUSCULAR HEMOGLOBIN 31.7 PG (27.0-31.0); MEAN CORPUSCULAR HGB CONC 33.1 G/DL (32.0-36.0); MEAN CORPUSCULAR VOLUME 96 FL (80-99); MEAN PLATELET VOLUME 9.9 FL (6.5-10.1); MONOCYTES % (AUTO) 2.8 % (1.0-10.0); NEUTROPHILS % (AUTO) 78.5 % (45.0-75.0); PLATELET COUNT 153 K/UL (150-450); RED BLOOD COUNT 4.88 M/UL (4.20-5.40); RED CELL DISTRIBUTION WIDTH 13.6 % (11.6-14.8); WHITE BLOOD COUNT 6.6 K/UL (4.8-10.8)
[2017-06-27 07:25] LABS: CREATININE 1.3 mg/dL (0.5-0.9); GLOMERULAR FILTRATION RATE 54.9 mL/min (>60); POTASSIUM 3.8 mEQ/L (3.4-4.9); TOTAL PROTEIN 8.9 g/dL (6.6-8.7)
[2017-06-27] MEDS ORDERED: Morphine Sulfate 4mg/ml Inj IVP ONE (08:15)
[2017-06-27 08:22] LABS: APPEARANCE,URINE CLEAR; KETONES,URINE 3+ (NEGATIVE); LEUKOCYTE ESTERASE ,URINE NEGATIVE (NEGATIVE); NITRITE,URINE NEGATIVE (NEGATIVE); PH,URINE 8 (4.5-8.0); PROTEIN,URINE 2+ (NEGATIVE); UROBILINOGEN,URINE NORMAL MG/DL (0.0-1.0)
[2017-06-27 08:27] LABS: BACTERIA,URINE OCCASIONAL /HPF; SQUAMOUS EPITHELIAL CELL,UR OCCASIONAL /LPF (NONE/OCC)
[2017-06-27 08:29] VITALS: BP 143/87
--- NOTE | 2017-06-27 08:44 | Emergency Room Report ---
History of Present Illness General Chief Complaint: Abdominal Pain Source: Patient, EMS Present Illness HPI 42-year-old female presents ED for evaluation. Per EMS patient's complaining of abdominal pain with nausea and vomiting since last night. Pain is cramping, 10 out of 10, nonradiating. Patient notes chills and denies fever. Patient has history of diabetes and is well known to [facility]. Patient is poorly compliant. Denies fevers or chills. Denies chest pain shortness of breath. Denies any diarrhea. No other aggravating relieving factors. Denies any other associated symptoms Allergies: Coded Allergies: No Known Allergies (Verified , NONE, 04/29/17) Patient History Past Medical History: DM, HTN, CVA/TIA, other - pancreatitis Past Surgical History: none Pertinent Family History: none Social History: Denies: alcohol use, drug use, smoking Last Menstrual Period: "LAST MONTH" Now: No Immunizations: UTD Reviewed Nursing Documentation: PMH: Agreed, PSxH: Agreed Nursing Documentation-PMH Hx Cardiac Problems: Yes Hx Hypertension: Yes Hx Diabetes: Yes Hx Cancer: No Hx Gastrointestinal Problems: Yes - pancreatitis Hx Neurological Problems: Yes Hx Cerebrovascular Accident: Yes Hx Seizures: Yes Hx Vertigo: Yes Hx Dizziness: Yes Hx Headaches: Yes Hx Weakness: Yes Hx Fatigue: Yes Hx Neurologic Surgery: No Review of Systems All Other Systems: negative except mentioned in HPI Physical Exam Vital Signs Date Time Temp Pulse Resp B/P Pulse Ox O2 Delivery O2 Flow Rate FiO2 06/27/17 06:34 106 18 148/96 96 Room Air 06/27/17 08:29 97.8 Sp02 EP Interpretation: reviewed, normal General Appearance: alert, GCS 15, non-toxic, mild distress, thin Head: normocephalic, atraumatic Eyes: bilateral eye PERRL, bilateral eye normal inspection ENT: hearing grossly normal, normal pharynx, no angioedema, normal voice Neck: full range of motion, supple/symm/no masses Respiratory: chest non-tender, lungs clear, normal breath sounds, speaking full sentences Cardiovascular #1: regular rate, rhythm, no edema Cardiovascular #2: 2+ carotid (R), 2+ carotid (L), 2+ radial (R), 2+ radial (L) , 2+ dorsalis pedis (R), 2+ dorsalis pedis (L) Gastrointestinal: normal bowel sounds, non tender, soft, non-distended, no guarding, no rebound Rectal: deferred Genitourinary: normal inspection, no CVA tenderness Musculoskeletal: back normal, gait/station normal, normal range of motion, non- tender Neurologic: alert, oriented x3, responsive, motor strength/tone normal, sensory intact, speech normal Psychiatric: judgement/insight normal, memory normal, mood/affect normal, no suicidal/homicidal ideation Reflexes: 3+ bicep (R), 3+ bicep (L), 3+ tricep (R), 3+ tricep (L), 3+ knee (R) , 3+ knee (L) Skin: normal color, no rash, warm/dry, well hydrated Lymphatic: no adenopathy Medical Decision Making Diagnostic Impression: Primary Impression: Hyperglycemia Additional Impressions: Intractable nausea and vomiting Qualified Codes: R11.2 - Nausea with vomiting, unspecified Non compliance with medical treatment Gastroparesis due to DM UTI (urinary tract infection) Qualified Codes: N39.0 - Urinary tract infection, site not specified ER Course Hospital Course 42-year-old female presenting to ED with chills, vomiting, abd pain Differential diagnoses include: ETOH/drug ingestion, sepsis, DKA Clinical course Patient placed on stretcher. 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 After initial history and physical I ordered labs, IV fluids, urine, meds Labs-glucose greater than 300, anion gap mildly elevated, bicarbonate ok, creatinine elevated. no leukocytosis. UA + bacteria, magnesium low IV fluids given, magnesium given, antibiotics given She continues to have vomiting and cramping pain despite medications. Because of insurance patient will be transferred i. I feel this is a highly complex case requiring extensive working including EKG/Rhythm strip, Xray/CT/US, Blood/urine lab work, repeat exams while in ED, and administration of strong opiates/narcotics for pain control, admission to hospital or close patient follow up. diagnosis - hyperglycemia, intractable nausea and vomiting, noncompliance with medical treatment, gastroparesis due to DM, UTI Transferred in serious condition Labs Test 06/27/17 07:00 06/27/17 08:00 White Blood Count 6.6 K/UL (4.8-10.8) Red Blood Count 4.88 M/UL (4.20-5.40) Hemoglobin 15.5 G/DL (12.0-16.0) Hematocrit 46.7 % (37.0-47.0) Mean Corpuscular Volume 96 FL (80-99) Mean Corpuscular Hemoglobin 31.7 PG (27.0-31.0) Mean Corpuscular Hemoglobin Concent 33.1 G/DL (32.0-36.0) Red Cell Distribution Width 13.6 % (11.6-14.8) Platelet Count 153 K/UL (150-450) Mean Platelet Volume 9.9 FL (6.5-10.1) Neutrophils (%) (Auto) 78.5 % (45.0-75.0) Lymphocytes (%) (Auto) 17.5 % (20.0-45.0) Monocytes (%) (Auto) 2.8 % (1.0-10.0) Eosinophils (%) (Auto) 0.3 % (0.0-3.0) Basophils (%) (Auto) 0.9 % (0.0-2.0) Sodium Level 144 mEQ/L (135-145) Potassium Level 3.8 mEQ/L (3.4-4.9) Chloride Level 96 mEQ/L (98-107) Carbon Dioxide Level 29 mEQ/L (20-30) Anion Gap 19 (5-15) Blood Urea Nitrogen 13 mg/dL (7-23) Creatinine 1.3 mg/dL (0.5-0.9) Estimat Glomerular Filtration Rate 54.9 mL/min (>60) Glucose Level 317 mg/dL (74-106) Calcium Level 10.0 mg/dL (8.6-10.2) Magnesium Level 1.4 mg/dL (1.7-2.5) Total Bilirubin 0.4 mg/dL (0.0-1.2) Aspartate Amino Transf (AST/SGOT) 46 U/L (5-40) Alanine Aminotransferase (ALT/SGPT) 31 U/L (3-33) Alkaline Phosphatase 163 U/L (35-104) Total Protein 8.9 g/dL (6.6-8.7) Albumin 4.6 g/dL (3.5-5.2) Globulin 4.3 g/dL Albumin/Globulin Ratio 1.0 (1.0-2.7) Lipase 7 U/L (< 60) Urine Color Pale yellow Urine Appearance Clear Urine pH 8 (4.5-8.0) Urine Specific Decker 1.015 (1.005-1.035) Urine Protein 2+ (NEGATIVE) Urine Glucose (UA) 4+ (NEGATIVE) Urine Ketones 3+ (NEGATIVE) Urine Occult Blood Negative (NEGATIVE) Urine Nitrite Negative (NEGATIVE) Urine Bilirubin Negative (NEGATIVE) Urine Urobilinogen Normal MG/DL (0.0-1.0) Urine Leukocyte Esterase Negative (NEGATIVE) Urine RBC 2-4 /HPF (0 - 2) Urine WBC 2-4 /HPF (0 - 2) Urine Squamous Epithelial Cells Occasional /LPF Urine Bacteria Occasional /HPF (NONE) Urine HCG, Qualitative Negative Last Vital Signs Date Time Temp Pulse Resp B/P Pulse Ox O2 Delivery O2 Flow Rate FiO2 06/27/17 08:29 97.8 89 18 143/87 96 Room Air Status: improved [facility] Condition: Serious Referrals: [facility],REFERRING (PCP) NAHOMI DONALDSON M.D. Jun 27, 2017 08:44
[2017-06-27] MEDS ORDERED: cefTRIAXone 1 GM in NS 55 ML IVPB ONE (09:45)
[2017-06-27 11:46] VITALS: BP 156/104
[2017-06-27 11:49] VITALS: BP 156/104
== END 2017-06-27 11:50 | disposition short-term general hospital (02) ==
LOC: EDBD 06:40 → EMR 07:36 → EDBEDREQ 08:18 → EMR 11:50
DX: E11.65 Type 2 diabetes mellitus with hyperglycemia (principal); R11.2 Nausea with vomiting, unspecified; E11.43 Type 2 diabetes mellitus with diabetic autonomic (poly)neuropathy; K31.84 Gastroparesis; Z91.14 Patient's other noncompliance with medication regimen; I10 Essential (primary) hypertension; Z86.73 Personal history of transient ischemic attack (TIA), and cerebral infarction without residual deficits
CPT/HCPCS: 36415; 80053; 81003; 81025; 83690; 83735; 85025; 96374; 96375; 99285; J0696; J2270; J2405; S0028

== ENCOUNTER 2017-09-04 16:58 | Emergency (ER) | payer OTHER ==
[~2017-09-04] VITALS: Ht 160 cm; Wt 49.9 kg
[2017-09-04 17:10] VITALS: BP 184/119
[2017-09-04 18:13] LABS: BASOPHILS % (AUTO) 1.7 % (0.0-2.0); EOSINOPHILS % (AUTO) 0.8 % (0.0-3.0); LYMPHOCYTES % (AUTO) 24.1 % (20.0-45.0); MEAN CORPUSCULAR HEMOGLOBIN 31.3 PG (27.0-31.0); MEAN CORPUSCULAR HGB CONC 30.5 G/DL (32.0-36.0); MEAN CORPUSCULAR VOLUME 103 FL (80-99); MEAN PLATELET VOLUME 8.5 FL (6.5-10.1); MONOCYTES % (AUTO) 8.1 % (1.0-10.0); NEUTROPHILS % (AUTO) 65.3 % (45.0-75.0); PLATELET COUNT 151 K/UL (150-450); RED BLOOD COUNT 4.52 M/UL (4.20-5.40); RED CELL DISTRIBUTION WIDTH 13.6 % (11.6-14.8)
[2017-09-04] MEDS ORDERED: UNOBMED (18:17)
[2017-09-04 18:30] VITALS: BP 171/110
[2017-09-04 19:13] LABS: ALANINE AMINOTRANSFERASE 33 U/L (12-78); ALBUMIN/GLOBULIN RATIO 0.9 (1.0-2.7); ANION GAP 16 (5-15); ASPARTATE AMINO TRANSFERASE 28 U/L (15-37); CALCIUM 10.3 MG/DL (8.5-10.1); CARBON DIOXIDE 25 MMOL/L (21-32); CHLORIDE 96 MMOL/L (98-107); CKMB 0.3 NG/ML (0.0-3.6); CREATININE 1.5 MG/DL (0.55-1.30); GLOMERULAR FILTRATION RATE 46.5 mL/min (>60); POTASSIUM 4.5 MMOL/L (3.5-5.1); SODIUM 137 MMOL/L (136-145); TOTAL PROTEIN 8.6 G/DL (6.4-8.2)
--- NOTE | 2017-09-04 19:29 | Emergency Room Report ---
History of Present Illness General Chief Complaint: Altered Level of Consciousness Source: Patient, Family Member, Medical Record Present Illness HPI 42YOF BIBEMS from home for ?AMS Elevated blood sugar Known diabetic - non compliant C/o nausea wthout vomiting Frequent visits, admissions for hyperglycemia, intractable abd pain, intractable nausea/vomtiing Denies focal weakness, fever/chills, chest pain, SOB, urinary complaints Allergies: Coded Allergies: No Known Allergies (Verified , NONE, 04/29/17) Patient History Past Medical History: see triage record, DM, other - see HPI Pertinent Family History: none Social History: Denies: smoking, alcohol use, drug use Immunizations: UTD Reviewed Nursing Documentation: PMH: Agreed, PSxH: Agreed Nursing Documentation-PMH Past Medical History: No History, Except For Hx Cardiac Problems: Yes - Protein-calorie malnutrition, severe, cocaine abuse , metabolic acidosis Hx Hypertension: Yes - Hypomagnesemia, hypokalemia Hx Diabetes: Yes - DKA Hx Cancer: No Hx Gastrointestinal Problems: Yes - pancreatitis, total bilirubin, elevated Hx Neurological Problems: Yes Hx Cerebrovascular Accident: Yes Hx Seizures: Yes Hx Vertigo: Yes Hx Dizziness: Yes Hx Headaches: Yes Hx Weakness: Yes Hx Fatigue: Yes Hx Neurologic Surgery: No Review of Systems All Other Systems: negative except mentioned in HPI Physical Exam Vital Signs Date Time Temp Pulse Resp B/P (MAP) Pulse Ox O2 Delivery O2 Flow Rate FiO2 09/04/17 16:59 97.5 105 20 165/93 98 Room Air Sp02 EP Interpretation: reviewed, normal General Appearance: normal inspection, well appearing, no apparent distress, alert, GCS 15, non-toxic Head: normocephalic, atraumatic Eyes: bilateral eye PERRL, bilateral eye EOMI ENT: normal ENT inspection, hearing grossly normal, normal voice Neck: normal inspection, full range of motion, supple, no bony tend Respiratory: normal inspection, lungs clear, normal breath sounds, no respiratory distress, no retraction, no wheezing Cardiovascular #1: regular rate, rhythm, no edema Gastrointestinal: normal inspection, normal bowel sounds, non tender, soft, no guarding, no hernia Genitourinary: no CVA tenderness Musculoskeletal: normal inspection, back normal, normal range of motion, Daniel' s Sign negative Neurologic: normal inspection, alert, oriented x3, responsive, promotional model III-XII nml as tested, motor strength/tone normal, speech normal Psychiatric: normal inspection, judgement/insight normal, mood/affect normal Skin: normal inspection, normal color, no rash Lymphatic: normal inspection Medical Decision Making Diagnostic Impression: Primary Impression: Altered mental status Qualified Codes: R41.82 - Altered mental status, unspecified Additional Impressions: Hyperglycemia CIERA (acute kidney injury) Nausea alone ER Course VSS. Afebrile No signs of sepsis AMS likely d/t uncontrolled DM Labs: Normal bicarb and K. Not acidotic, doubt DKA. Mild CIERA Given IVF NS and Insulin and zofran Endorsed to Dr Caruso at 729 Stable for transfer to [facility] EKG Diagnostic Results Rate: normal, other - LAFB Rhythm: NSR ST Segments: no acute changes ASA given to the pt in ED: No Rhythm Strip Diag. Results EP Interpretation: yes Rate: 86 Rhythm: NSR, no PVC's, no ectopy Chest X-Ray Diagnostic Results Chest X-Ray Diagnostic Results : Electronically Signed by: patient refused CXR Last Vital Signs Date Time Temp Pulse Resp B/P (MAP) Pulse Ox O2 Delivery O2 Flow Rate FiO2 09/04/17 18:30 140 18 171/110 100 Room Air 09/04/17 17:10 98.2 Status: improved Disposition: ADMITTED INPATIENT Condition: Serious Referrals: [facility],REFERRING (PCP) SAIDA TRAMMELL M.D. Sep 04, 2017 19:29
[2017-09-04 20:13] VITALS: BP 163/105
[2017-09-04 20:21] LABS: APPEARANCE,URINE SLIGHTLY CLOUDY; KETONES,URINE 4+ (NEGATIVE); LEUKOCYTE ESTERASE ,URINE 3+ (NEGATIVE); NITRITE,URINE NEGATIVE (NEGATIVE); PH,URINE 8 (4.5-8.0); PROTEIN,URINE 2+ (NEGATIVE); UROBILINOGEN,URINE NORMAL MG/DL (0.0-1.0)
[2017-09-04 20:28] LABS: BACTERIA,URINE MANY /HPF; SQUAMOUS EPITHELIAL CELL,UR FEW /LPF (NONE/OCC)
[2017-09-04 20:29] LABS: AMORPHOUS SEDIMENT,UR MODERATE /LPF; YEAST,URINE FEW /HPF
[2017-09-04 20:56] VITALS: BP 163/105
--- NOTE | 2017-09-16 08:41 | Cardiology Report ---
APPROVED REPORT EKG Measurement Heart [id number] Normal sinus rhythm Possible Left atrial enlargement Left anterior fascicular block Cannot rule out Anterior infarct, age undetermined Abnormal ECG
== END 2017-09-04 20:56 | disposition short-term general hospital (02) ==
LOC: EDBD 16:58 → EDUNIT# 16:58 → EDBEDREQ 17:35 → EMR 17:54
DX: R41.82 Altered mental status, unspecified (principal); E11.65 Type 2 diabetes mellitus with hyperglycemia; N17.9 Acute kidney failure, unspecified; R11.0 Nausea; Z86.73 Personal history of transient ischemic attack (TIA), and cerebral infarction without residual deficits
CPT/HCPCS: 36415; 80053; 80300; 81003; 81025; 82550; 82553; 82962; 83880; 84484; 85025; 87086; 87181; 93005; 96361; 96374; 96375; 99285; J1815; J2405

== ENCOUNTER 2017-09-15 20:48 | Emergency (ER) | payer OTHER ==
[~2017-09-15] VITALS: Ht 167.6 cm; Wt 59.0 kg
--- NOTE | 2017-09-15 21:06 | Emergency Room Report ---
History of Present Illness General Chief Complaint: Altered Level of Consciousness Source: Patient Present Illness HPI Patient is a 42-year-old female brought in by EMS after altered level consciousness. Patient was noted to have a low blood sugar. Patient was insulin-dependent diabetic. Patient was given glucagon by paramedics. She had some improvement in her blood sugar. Patient's blood sugar was initially noted to be in the 20s. This had improved after glucagon and the 50s. History is limited by patient's altered mental status. Allergies: Coded Allergies: No Known Allergies (Verified , NONE, 04/29/17) Patient History Past Medical History: see triage record Reviewed Nursing Documentation: PMH: Agreed, PSxH: Agreed Nursing Documentation-PMH Hx Cardiac Problems: Yes - Protein-calorie malnutrition, severe, cocaine abuse , metabolic acidosis Hx Hypertension: Yes - Hypomagnesemia, hypokalemia Hx Diabetes: Yes - DKA Hx Cancer: No Hx Gastrointestinal Problems: Yes - pancreatitis, total bilirubin, elevated Hx Neurological Problems: Yes Hx Cerebrovascular Accident: Yes Hx Seizures: Yes Hx Vertigo: Yes Hx Dizziness: Yes Hx Headaches: Yes Hx Weakness: Yes Hx Fatigue: Yes Hx Neurologic Surgery: No Review of Systems All Other Systems: limited - by mental status Physical Exam Vital Signs Date Time Temp Pulse Resp B/P (MAP) Pulse Ox O2 Delivery O2 Flow Rate FiO2 09/15/17 20:48 98.4 62 24 86/52 100 Room Air Sp02 EP Interpretation: reviewed, normal General Appearance: normal inspection, alert, Chronically Ill Head: atraumatic ENT: normal ENT inspection, hearing grossly normal, normal voice Neck: normal inspection, full range of motion, supple, no bony tend Respiratory: normal inspection, lungs clear, normal breath sounds, no respiratory distress, no retraction, no wheezing Cardiovascular #1: regular rate, rhythm, edema - left hand Gastrointestinal: normal inspection, normal bowel sounds, non tender, soft, no guarding, no hernia Genitourinary: no CVA tenderness Musculoskeletal: normal inspection, back normal, normal range of motion Neurologic: normal inspection, alert, responsive, speech normal Psychiatric: normal inspection, judgement/insight normal, mood/affect normal Skin: normal inspection, normal color, no rash Medical Decision Making Diagnostic Impression: Primary Impression: Hypoglycemia associated with diabetes ER Course Patient presented for altered mental status. Differential diagnosis included but was not limited to ischemic stroke, subarachnoid hemorrhage, hypoglycemia, spinal cord injury, neurodegenerative disorder, urinary tract infection, hypoxemia.Because of complexity of patient's case laboratory testing and imaging studies were ordered.Laboratory testing was notable for adequate blood sugar. The patient was noted to have persistent low blood sugar.patient started on D5 half NS . The patient was discussed with Dr. Mazariegos who agreed to accept the patient in transfer. Labs Test 09/15/17 22:00 09/15/17 22:35 09/15/17 23:35 Sodium Level 141 MMOL/L (136-145) Potassium Level 4.3 MMOL/L (3.5-5.1) Chloride Level 108 MMOL/L (98-107) Carbon Dioxide Level 27 MMOL/L (21-32) Anion Gap 6 mmol/L (5-15) Blood Urea Nitrogen 17 mg/dL (7-18) Creatinine 1.2 MG/DL (0.55-1.30) Estimat Glomerular Filtration Rate > 60 mL/min (>60) Glucose Level 73 MG/DL (74-106) Calcium Level 8.8 MG/DL (8.5-10.1) Total Bilirubin 0.1 MG/DL (0.2-1.0) Aspartate Amino Transf (AST/SGOT) 17 U/L (15-37) Alanine Aminotransferase (ALT/SGPT) < 6 U/L (12-78) Alkaline Phosphatase 77 U/L (46-116) Total Protein 6.3 G/DL (6.4-8.2) Albumin 2.8 G/DL (3.4-5.0) Globulin 3.5 g/dL Albumin/Globulin Ratio 1.8 (1.0-2.7) Urine Color Pale yellow Urine Appearance Clear Urine pH 5 (4.5-8.0) Urine Specific [place] 1.015 (1.005-1.035) Urine Protein 1+ (NEGATIVE) Urine Glucose (UA) 2+ (NEGATIVE) Urine Ketones Negative (NEGATIVE) Urine Occult Blood Negative (NEGATIVE) Urine Nitrite Negative (NEGATIVE) Urine Bilirubin Negative (NEGATIVE) Urine Urobilinogen Normal MG/DL (0.0-1.0) Urine Leukocyte Esterase 1+ (NEGATIVE) Urine RBC 0-2 /HPF (0 - 2) Urine WBC 2-4 /HPF (0 - 2) Urine Squamous Epithelial Cells Occasional /LPF Urine Bacteria None /HPF (NONE) White Blood Count 10.1 K/UL (4.8-10.8) Red Blood Count 2.96 M/UL (4.20-5.40) Hemoglobin 10.4 G/DL (12.0-16.0) Hematocrit 29.7 % (37.0-47.0) Mean Corpuscular Volume 101 FL (80-99) Mean Corpuscular Hemoglobin 35.0 PG (27.0-31.0) Mean Corpuscular Hemoglobin Concent 34.9 G/DL (32.0-36.0) Red Cell Distribution Width 14.0 % (11.6-14.8) Platelet Count 130 K/UL (150-450) Mean Platelet Volume 11.0 FL (6.5-10.1) Neutrophils (%) (Auto) 59.2 % (45.0-75.0) Lymphocytes (%) (Auto) 33.3 % (20.0-45.0) Monocytes (%) (Auto) 5.7 % (1.0-10.0) Eosinophils (%) (Auto) 0.7 % (0.0-3.0) Basophils (%) (Auto) 1.1 % (0.0-2.0) Last Vital Signs Date Time Temp Pulse Resp B/P (MAP) Pulse Ox O2 Delivery O2 Flow Rate FiO2 09/15/17 20:48 98.4 62 24 86/52 100 Room Air Status: unchanged Disposition: [facility] Condition: Serious Dhaval King Sep 15, 2017 21:06
[2017-09-15 22:49] LABS: ALANINE AMINOTRANSFERASE < 6 U/L (12-78); ANION GAP 6 mmol/L (5-15); ASPARTATE AMINO TRANSFERASE 17 U/L (15-37); CARBON DIOXIDE 27 MMOL/L (21-32); CHLORIDE 108 MMOL/L (98-107); CREATININE 1.2 MG/DL (0.55-1.30); GLOMERULAR FILTRATION RATE > 60 mL/min (>60); POTASSIUM 4.3 MMOL/L (3.5-5.1); SODIUM 141 MMOL/L (136-145); TOTAL PROTEIN 6.3 G/DL (6.4-8.2)
[2017-09-15 22:51] VITALS: BP 117/74
[2017-09-15] MEDS ORDERED: D5 1/2NS 1,000 ML IV SCH (23:00)
[2017-09-15 23:04] LABS: CALCIUM 8.8 MG/DL (8.5-10.1)
[2017-09-15 23:05] LABS: APPEARANCE,URINE CLEAR; KETONES,URINE NEGATIVE (NEGATIVE); LEUKOCYTE ESTERASE ,URINE 1+ (NEGATIVE); NITRITE,URINE NEGATIVE (NEGATIVE); PH,URINE 5 (4.5-8.0); PROTEIN,URINE 1+ (NEGATIVE); UROBILINOGEN,URINE NORMAL MG/DL (0.0-1.0)
[2017-09-15 23:07] LABS: ALBUMIN/GLOBULIN RATIO 1.8 (1.0-2.7)
[2017-09-15 23:39] LABS: RBC,URINE 0-2 /HPF (0 - 2); SQUAMOUS EPITHELIAL CELL,UR OCCASIONAL /LPF (NONE/OCC)
[2017-09-15 23:51] LABS: BASOPHILS % (AUTO) 1.1 % (0.0-2.0); EOSINOPHILS % (AUTO) 0.7 % (0.0-3.0); LYMPHOCYTES % (AUTO) 33.3 % (20.0-45.0); MEAN CORPUSCULAR HGB CONC 34.9 G/DL (32.0-36.0); MEAN CORPUSCULAR VOLUME 101 FL (80-99); MONOCYTES % (AUTO) 5.7 % (1.0-10.0); NEUTROPHILS % (AUTO) 59.2 % (45.0-75.0); PLATELET COUNT 130 K/UL (150-450); RED BLOOD COUNT 2.96 M/UL (4.20-5.40); WHITE BLOOD COUNT 10.1 K/UL (4.8-10.8)
[2017-09-16 01:40] VITALS: BP 148/95
[2017-09-16 03:04] VITALS: BP 136/73
[2017-09-16 03:06] VITALS: BP 136/73
== END 2017-09-16 03:06 | disposition short-term general hospital (02) ==
LOC: EDBD 20:48 → EDUNIT# 20:48 → EMR 21:15
DX: E11.649 Type 2 diabetes mellitus with hypoglycemia without coma (principal); Z79.4 Long term (current) use of insulin; Z86.73 Personal history of transient ischemic attack (TIA), and cerebral infarction without residual deficits
CPT/HCPCS: 36415; 80053; 81003; 82962; 85025; 96365; 96366; 96375; 96376; 99285

== ENCOUNTER 2017-10-05 19:14 | Inpatient (IN) | payer OTHER ==
[~2017-10-05] VITALS: Ht 167.6 cm; Wt 49.0 kg
[2017-10-05 19:19] VITALS: BP 107/70
[2017-10-05 19:52] LABS: BASOPHILS % (AUTO) 1.5 % (0.0-2.0); EOSINOPHILS % (AUTO) 1.9 % (0.0-3.0); LYMPHOCYTES % (AUTO) 39.9 % (20.0-45.0); MEAN CORPUSCULAR HEMOGLOBIN 32.7 PG (27.0-31.0); MEAN CORPUSCULAR VOLUME 102 FL (80-99); MEAN PLATELET VOLUME 8.3 FL (6.5-10.1); MONOCYTES % (AUTO) 7.9 % (1.0-10.0); NEUTROPHILS % (AUTO) 48.8 % (45.0-75.0); PLATELET COUNT 121 K/UL (150-450); RED BLOOD COUNT 3.23 M/UL (4.20-5.40); RED CELL DISTRIBUTION WIDTH 13.5 % (11.6-14.8); WHITE BLOOD COUNT 8.1 K/UL (4.8-10.8)
[2017-10-05 20:04] LABS: INR 0.9 (0.9-1.1); PROTHROMBIN TIME 9.9 SEC (9.30-11.50)
--- NOTE | 2017-10-05 20:28 | Emergency Room Report ---
History of Present Illness General Chief Complaint: General Complaint Source: Medical Record, EMS Present Illness HPI The patient presents with hypoglycemia. EMS was called for altered mentation. The patient has multiple episodes of hypoglycemia or hyperglycemia. It was less than 20 in the field. They gave her glucagon which raised it up to 57. The patient denies any fevers, body pain, chest pain, shortness of breath, cough , dysuria. She's not sure when her last period was is a long-time. Patient ate tacos earlier today. There's been no major change in her insulin dosing. RN notes the patient has diarrhea. She has been treated her many times for DKA, hyperosmolar state, hypoglycemia. She also suffers from diabetic gastroparesis and occasionally presents with intractable vomiting and epigastric pain. She's required multiple psychiatric evaluations for non-compliance. She denies SI or HI at this time. Allergies: Coded Allergies: No Known Allergies (Verified , NONE, 04/29/17) Patient History Limited by: medical condition Past Medical History: see triage record, old chart reviewed Social History: Reports: smoking, drug use, Denies: alcohol use Social History Narrative at home Last Menstrual Period: unknown Now: No Reviewed Nursing Documentation: PMH: Agreed, PSxH: Agreed Nursing Documentation-PMH Hx Cardiac Problems: Yes - Protein-calorie malnutrition, severe, cocaine abuse , metabolic acidosis Hx Hypertension: Yes Hx Diabetes: Yes Hx Cancer: No Hx Gastrointestinal Problems: Yes - pancreatitis, total bilirubin, elevated Hx Neurological Problems: Yes Hx Cerebrovascular Accident: Yes Hx Seizures: Yes Hx Vertigo: Yes Hx Dizziness: Yes Hx Headaches: Yes Hx Weakness: Yes Hx Fatigue: Yes Hx Neurologic Surgery: No Review of Systems All Other Systems: negative except mentioned in HPI Physical Exam Vital Signs Date Time Temp Pulse Resp B/P (MAP) Pulse Ox O2 Delivery O2 Flow Rate FiO2 10/05/17 19:07 80 14 107/70 100 Room Air 10/05/17 19:19 97.6 Sp02 EP Interpretation: reviewed, normal General Appearance: alert, thin, Chronically Ill Head: normocephalic, atraumatic Eyes: bilateral eye PERRL, bilateral eye other - hyperpigmentation ENT: moist mucus membranes Neck: supple Respiratory: lungs clear, normal breath sounds Cardiovascular #1: regular rate, rhythm Cardiovascular #2: 2+ radial (R), 2+ femoral (R) Gastrointestinal: normal inspection, no mass, non-distended, no guarding, no rebound, tenderness - minimal, decreased bowel sounds Musculoskeletal: back normal, gait/station normal, normal range of motion Neurologic: alert, oriented x3, motor strength/tone normal, DTRs symmetric, sensory intact, cerebellar normal, normal gait Psychiatric: no suicidal/homicidal ideation, depressed affect, other - bothered by questions Skin: warm/dry, other - hhperpigmented areas face and some excoriations Procedures Central Line Central Line : Consent: Emergent Central Line Lumen: triple Maximal Sterile Barrier Tech: yes cap, yes mask, yes sterile gown, yes sterile gloves, yes large sterile sheet, yes hand hygiene, yes chlorhexidine prep Central Line Postion: femoral (R) Anesthesia: Lidocaine cc's of anesthesia: 3 Complications: none Central Line Post Position: sutured, good blood return Attempts: Other - 2 Patient Tolerated: Well Complications: None Progress Initial attempt, wire would not pass. Second attempt without difficulty. D50W pushed after insertion at 22:15. EBL = 10 ml. Medical Decision Making Diagnostic Impression: Primary Impression: Hypoglycemia Additional Impressions: Cocaine abuse Diarrhea Qualified Codes: R19.7 - Diarrhea, unspecified ER Course Patient presents with hypoglycemia. H/O same with brittle diabetes. DDx: occult infection, insulin excess, renal failure, caloric intake insufficiency amongst others. Evaluation with EKG, CXR, labs. Treatment with caloric intake and D50W with continued glucose determinations. Patient ate here. Patient with low glucose after eating. D50W ordered. Line blew. Glucagon ordered - CVP begun before this was given and D50W given by me by CVP. EKG without injury. CXR no infiltrates. Labs with normal WBC, elevated creat ( has been high in past), + cocaine. Admit tele Dr. Arana. Glucose with elevation 2 determinations. Long acting insulin given. Signed out to Dr. José as patient will be in ED due to no beds. Laboratory Tests Test 10/05/17 19:38 10/05/17 20:00 10/05/17 20:15 White Blood Count 8.1 K/UL (4.8-10.8) Red Blood Count 3.23 M/UL (4.20-5.40) L Hemoglobin 10.6 G/DL (12.0-16.0) L Hematocrit 33.0 % (37.0-47.0) L Mean Corpuscular Volume 102 FL (80-99) H Mean Corpuscular Hemoglobin 32.7 PG (27.0-31.0) H Mean Corpuscular Hemoglobin Concent 32.0 G/DL (32.0-36.0) Red Cell Distribution Width 13.5 % (11.6-14.8) Platelet Count 121 K/UL (150-450) L Mean Platelet Volume 8.3 FL (6.5-10.1) Neutrophils (%) (Auto) 48.8 % (45.0-75.0) Lymphocytes (%) (Auto) 39.9 % (20.0-45.0) Monocytes (%) (Auto) 7.9 % (1.0-10.0) Eosinophils (%) (Auto) 1.9 % (0.0-3.0) Basophils (%) (Auto) 1.5 % (0.0-2.0) Prothrombin Time 9.9 SEC (9.30-11.50) Prothrombin Time INR 0.9 (0.9-1.1) PTT 22 SEC (23-33) L Urine HCG, Qualitative Negative Urine Opiates Screen Negative (NEGATIVE) Urine Barbiturates Screen Negative (NEGATIVE) Phencyclidine (PCP) Screen Negative (NEGATIVE) Urine Amphetamines Screen Negative (NEGATIVE) Urine Benzodiazepines Screen Negative (NEGATIVE) Urine Cocaine Screen Positive (NEGATIVE) H Urine Marijuana (THC) Screen Negative (NEGATIVE) Sodium Level 145 MMOL/L (136-145) Potassium Level 4.6 MMOL/L (3.5-5.1) Chloride Level 110 MMOL/L (98-107) H Carbon Dioxide Level 28 MMOL/L (21-32) Anion Gap 7 mmol/L (5-15) Blood Urea Nitrogen 17 mg/dL (7-18) Creatinine 1.6 MG/DL (0.55-1.30) H Estimate Glomerular Filtration Rate 43.3 mL/min (>60) Glucose Level 68 MG/DL (74-106) L Calcium Level 8.7 MG/DL (8.5-10.1) Total Bilirubin 0.2 MG/DL (0.2-1.0) Aspartate Amino Transferase (AST) 87 U/L (15-37) H Alanine Aminotransferase (ALT) 33 U/L (12-78) Alkaline Phosphatase 151 U/L (46-116) H Total Creatine Kinase 59 U/L (26-308) Troponin I 0.001 ng/mL (0.000-0.056) Pro-B-Type Natriuretic Peptide 135 pg/mL (0-125) H Total Protein 7.2 G/DL (6.4-8.2) Albumin 3.1 G/DL (3.4-5.0) L Globulin 4.1 g/dL Albumin/Globulin Ratio 0.8 (1.0-2.7) L Serum Alcohol < 3 mg/dL EKG Diagnostic Results Rate: normal Rhythm: NSR ST Segments: no acute changes Rhythm Strip Diag. Results EP Interpretation: yes Rhythm: NSR, no PVC's, no ectopy Chest X-Ray Diagnostic Results Chest X-Ray Diagnostic Results : Chest X-Ray Ordered: Yes # of Views/Limited/Complete: 1 View Indication: Other Interpretation: no consolidation, no effusion, no pneumothorax, no acute cardiopulmonary disease Impression: No acute disease Electronically Signed by: Electronically signed by Koby Mims MD Last Vital Signs Date Time Temp Pulse Resp B/P (MAP) Pulse Ox O2 Delivery O2 Flow Rate FiO2 10/06/17 03:30 98.3 90 10 129/90 99 Room Air Status: improved Disposition: ADMITTED INPATIENT Condition: Serious Koby Mims M.D. Oct 05, 2017 20:28
[2017-10-05 20:53] LABS: ANION GAP 7 mmol/L (5-15); CALCIUM 8.7 MG/DL (8.5-10.1); CARBON DIOXIDE 28 MMOL/L (21-32); CHLORIDE 110 MMOL/L (98-107); CREATININE 1.6 MG/DL (0.55-1.30); GLOMERULAR FILTRATION RATE 43.3 mL/min (>60); POTASSIUM 4.6 MMOL/L (3.5-5.1); SODIUM 145 MMOL/L (136-145)
[2017-10-05 21:04] LABS: ALANINE AMINOTRANSFERASE 33 U/L (12-78); ALBUMIN/GLOBULIN RATIO 0.8 (1.0-2.7); ALCOHOL < 3 mg/dL; ASPARTATE AMINO TRANSFERASE 87 U/L (15-37); TOTAL PROTEIN 7.2 G/DL (6.4-8.2)
[2017-10-05 22:00] VITALS: BP 141/81
[2017-10-05] MEDS ORDERED: Glucagon 1mg Inj IM ONE (22:00)
[2017-10-05] MEDS ORDERED: Levemir Flexpen SUBQ STA (23:42)
[2017-10-05 23:43] VITALS: BP 124/74
[2017-10-06] VITALS (7 sets, daily range): BP systolic 123–145; BP diastolic 68–101
[2017-10-06] MEDS ORDERED: Albuterol/Ipratropium 3ml neb HHN PRN ×2 (05:15→21:00)
[2017-10-06] MEDS ORDERED: Miralax 17gm pkt ORAL PRN ×2 (05:15→21:30)
[2017-10-06] MEDS ORDERED: Nitroglycerin Subl 0.4mg tab SL PRN ×2 (05:15→20:45)
[2017-10-06] MEDS ORDERED: Ketorolac 30mg Inj IV PRN ×2 (05:15→21:30)
[2017-10-06] MEDS ORDERED: Mylanta II UD 30ml ORAL PRN ×2 (05:15→21:30)
--- NOTE | 2017-10-06 07:39 | General Progress Note ---
Assessment/Plan Problem List: (1) Gastroparesis due to DM ICD Codes: E11.43 - Type 2 diabetes mellitus with diabetic autonomic (poly) neuropathy; K31.84 - Gastroparesis SNOMED: 03069268, 523441036 (2) Non compliance with medical treatment ICD Codes: Z91.19 - Patient's noncompliance with other medical treatment and regimen SNOMED: 0438256 (3) HTN (hypertension) ICD Codes: I10 - Essential (primary) hypertension SNOMED: 44728422 (4) Hypoglycemia ICD Codes: E16.2 - Hypoglycemia, unspecified SNOMED: 493151180 Assessment/Plan - Levemir 8 units bid - Novolog 5 units ac tid - SSI Subjective ROS Limited/Unobtainable: No Allergies: Coded Allergies: No Known Allergies (Verified , NONE, 04/29/17) Subjective events noted - admitted with hypoglycemia hx of out of control brittle T1DM, non compliance Objective Last 24 Hour Vital Signs Date Time Temp Pulse Resp B/P (MAP) Pulse Ox O2 Delivery O2 Flow Rate FiO2 10/06/17 05:40 97.2 93 13 131/77 99 Room Air 10/06/17 03:30 98.3 90 10 129/90 99 Room Air 10/06/17 01:34 98.2 89 11 130/69 99 Room Air 10/05/17 23:43 98.0 88 12 124/74 100 Room Air 10/05/17 22:00 97.6 82 11 141/81 100 Room Air 10/05/17 19:19 97.6 84 14 107/70 100 Room Air 10/05/17 19:07 80 14 107/70 100 Room Air Laboratory Tests 10/05/17 19:38: White Blood Count 8.1, Red Blood Count 3.23L, Hemoglobin 10.6L, Hematocrit 33.0L , Mean Corpuscular Volume 102H, Mean Corpuscular Hemoglobin 32.7H, Mean Corpuscular Hemoglobin Concent 32.0, Red Cell Distribution Width 13.5, Platelet Count 121L, Mean Platelet Volume 8.3, Neutrophils (%) (Auto) 48.8, Lymphocytes ( %) (Auto) 39.9, Monocytes (%) (Auto) 7.9, Eosinophils (%) (Auto) 1.9, Basophils (%) (Auto) 1.5, Prothrombin Time 9.9, Prothromb Time International Ratio 0.9, Activated Partial Thromboplast Time 22L 10/05/17 20:00: Urine HCG, Qualitative Negative, Urine Opiates Screen Negative, Urine Barbiturates Screen Negative, Phencyclidine (PCP) Screen Negative, Urine Amphetamines Screen Negative, Urine Benzodiazepines Screen Negative, Urine Cocaine Screen PositiveH, Urine Marijuana (THC) Screen Negative 10/05/17 20:15: Sodium Level 145, Potassium Level 4.6, Chloride Level 110H, Carbon Dioxide Level 28, Anion Gap 7, Blood Urea Nitrogen 17, Creatinine 1.6H, Estimat Glomerular Filtration Rate 43.3, Glucose Level 68L, Calcium Level 8.7, Total Bilirubin 0.2, Aspartate Amino Transf (AST/SGOT) 87H, Alanine Aminotransferase ( ALT/SGPT) 33, Alkaline Phosphatase 151H, Total Creatine Kinase 59, Troponin I 0.001, Pro-B-Type Natriuretic Peptide 135H, Total Protein 7.2, Albumin 3.1L, Globulin 4.1, Albumin/Globulin Ratio 0.8L, Serum Alcohol < 3 Height (Feet): 5 Height (Inches): 6.00 Weight (Pounds): 108 General Appearance: no apparent distress Neck: normal alignment Respiratory/Chest: normal breath sounds Edema: no edema noted Arm (L), no edema noted Arm (R), no edema noted Leg (L), no edema noted Leg (R), no edema noted Pedal (L), no edema noted Pedal (R), no edema noted Generalized Objective Current Medications Medications (Trade) Dose Ordered Sig/Mateo Route PRN Reason Start Time Stop Time Status Last Admin Dose Admin Acetaminophen (Tylenol) 650 mg Q4H PRN ORAL fever 10/06/17 05:15 11/05/17 05:14 Al Hydroxide/Mg Hydroxide (Mylanta II) 30 ml Q6H PRN ORAL dyspepsia 10/06/17 05:15 11/05/17 05:14 Albuterol/ Ipratropium (Albuterol/ Ipratropium) 3 ml EVERY 4 HOURS PRN HHN Shortness of Breath 10/06/17 05:15 10/11/17 05:14 Amlodipine Besylate (Norvasc) 5 mg Q12HR ORAL 10/06/17 09:00 11/05/17 08:59 Clonidine HCl (Catapres) 0.1 mg EVERY 4 HOURS PRN ORAL sbp more than 160 10/06/17 05:15 11/05/17 05:14 Dextrose (Dextrose 50%) STAT PRN IV Hypoglycemia 10/06/17 05:15 11/05/17 05:14 Divalproex Sodium (Depakote ER) 1,000 mg QHS ORAL 10/06/17 21:00 11/05/17 20:59 Heparin Sodium (Porcine) (Heparin 5000 units/ml) 5,000 units EVERY 12 HOURS SUBQ 10/06/17 09:00 11/05/17 08:59 Insulin Aspart (NovoLOG) BEFORE MEALS AND HS SUBQ 10/06/17 06:30 11/05/17 06:29 Ketorolac Tromethamine (Toradol 30mg) 30 mg Q6H PRN IV Moderate Pain (Pain Scale 4-6) 10/06/17 05:15 10/11/17 05:14 Nitroglycerin (Ntg) 0.4 mg Q5M X 3 DOSES PRN SL Prn Chest Pain 10/06/17 05:15 11/05/17 05:14 Ondansetron HCl (Zofran) 4 mg Q6H PRN IVP Nausea & Vomiting 10/06/17 05:15 11/05/17 05:14 Pantoprazole (Protonix) 40 mg DAILY ORAL 10/06/17 09:00 11/05/17 08:59 Polyethylene Glycol (Miralax) 17 gm HSPRN PRN ORAL Constipation 10/06/17 05:15 11/05/17 05:14 Sodium Chloride 1,000 ml @ 100 mls/hr Q10H IVLG 10/06/17 18:23 11/05/17 18:22 Temazepam (Restoril) 15 mg HSPRN PRN ORAL Insomnia 10/06/17 05:15 10/13/17 05:14 Item Value Date Time Bedside Blood Glucose 304 mg/dl H 10/06/17 0608 Bedside Blood Glucose 290 mg/dl H 10/06/17 0131 Bedside Blood Glucose 284 mg/dl H 10/05/17 2255 FRANCES BRADLEY Oct 06, 2017 07:39
[2017-10-06] MEDS: NovoLOG Insulin Flexpen SUBQ SCH ×6 (08:20→21:20)
[2017-10-06] MEDS ORDERED: Heparin 5000 units/ml inj SUBQ SCH (09:00)
[2017-10-06] MEDS ORDERED: Levemir Flexpen SUBQ SCH (09:00)
--- NOTE | 2017-10-06 11:13 | History and Physical ---
History of Present Illness General Date patient seen: Oct 06, 2017 Reason for Hospitalization: General Complaint Present Illness HPI 42 year old female with hx Diabetes Mellitus, DKA, hyperosmolar state, episodes of hypoglycemia in the past, gastroparesis brought in by EMS for altered mentation. Her BS was less than 20 in the field. They gave her glucagon which raised it up to 57. Patient ate tacos earlier today. There's been no major change in her insulin dosing. She is admitted for further work up. Allergies: Coded Allergies: No Known Allergies (Verified , NONE, 04/29/17) Medication History Scheduled Acetaminophen (Acetaminophen), 650 MG ORAL EVERY 4 HOURS, (Reported) Al Hydroxide/mg Hydroxide (Mag-Al Plus Suspension), 30 ML ORAL EVERY 6 HOURS, ( Reported) Amlodipine Besylate (Norvasc), 5 MG ORAL Q12HR, (Reported) Calcium Carbonate (Calcium Carbonate), 500 MG PO DAILY, (Reported) Clonidine HCl (Clonidine HCl), 0.1 MG PO EVERY 4 HOURS, (Reported) Divalproex Sodium* (Depakote Er*), 1,000 MG ORAL QHS, (Reported) Heparin Sodium,Porcine/Ns/Pf (Heparin), 5,000 UNIT SUBQ EVERY 12 HOURS, ( Reported) Insulin Aspart (Novolog Flexpen), 10 SUBQ 3x a day before meal, (Reported) Insulin Aspart* (Novolog*), 0 SUBQ BEFORE MEALS AND HS, (Reported) Insulin Detemir (Levemir), 8 SUBQ BID, (Reported) Insulin Detemir (Levemir Flexpen), 15 SUBQ Q12HR, (Reported) Magnesium Oxide (Magnesium Oxide), 400 MG ORAL TID, (Reported) Pantoprazole* (Protonix*), 40 MG ORAL DAILY, (Reported) Pantoprazole* (Protonix*), 40 MG ORAL DAILY, (Reported) Polyethylene Glycol 3350* (Miralax*), 17 GM ORAL HS, (Reported) Ranitidine Hcl* (Zantac*), 150 MG ORAL TWICE A DAY, (Reported) Ranitidine Hcl* (Zantac*), 150 MG ORAL DAILY, (Reported) Temazepam (Temazepam*), 15 MG ORAL BEDTIME, (Reported) Scheduled PRN Ondansetron* (Zofran*), 4 MG IVP Q6H PRN for Nausea & Vomiting, (Reported) Temazepam* (Restoril*), 15 MG ORAL BEDTIME PRN for Insomnia, (Reported) Miscellaneous Medications Insulin Aspart* (Novolog*), 4 SUBQ, (Reported) Nitroglycerin (Nitroglycerin), 0.4 MG SL, (Reported) Unable to Obtain Medications (Unable To Obtain Meds), (Reported) [insulin], (Reported) Patient History Healthcare decision maker Resuscitation status Full Code Advanced Directive on File Past Medical/Surgical History Past Medical/Surgical History: (1) Cocaine abuse (2) DKA (diabetic ketoacidoses) Review of Systems All Other Systems: negative except mentioned in HPI Physical Exam General Appearance: WD/WN, alert Lines, tubes and drains: peripheral, central line HEENT: normocephalic, atraumatic Neck: non-tender, supple Respiratory/Chest: chest wall non-tender, lungs clear Cardiovascular/Chest: normal peripheral pulses, normal rate Last 24 Hour Vital Signs Date Time Temp Pulse Resp B/P (MAP) Pulse Ox O2 Delivery O2 Flow Rate FiO2 10/06/17 09:02 93 141/110 10/06/17 08:41 89 10/06/17 08:18 97.2 93 13 131/77 99 Room Air 10/06/17 05:40 97.2 93 13 131/77 99 Room Air 10/06/17 03:30 98.3 90 10 129/90 99 Room Air 10/06/17 01:34 98.2 89 11 130/69 99 Room Air 10/05/17 23:43 98.0 88 12 124/74 100 Room Air 10/05/17 22:00 97.6 82 11 141/81 100 Room Air 10/05/17 19:19 97.6 84 14 107/70 100 Room Air 10/05/17 19:07 80 14 107/70 100 Room Air Intake and Output 10/06/17 10/07/17 19:00 07:00 # Bowel Movements 1 Laboratory Tests Test 10/05/17 19:38 10/05/17 20:00 10/05/17 20:15 White Blood Count 8.1 K/UL (4.8-10.8) Red Blood Count 3.23 M/UL (4.20-5.40) L Hemoglobin 10.6 G/DL (12.0-16.0) L Hematocrit 33.0 % (37.0-47.0) L Mean Corpuscular Volume 102 FL (80-99) H Mean Corpuscular Hemoglobin 32.7 PG (27.0-31.0) H Mean Corpuscular Hemoglobin Concent 32.0 G/DL (32.0-36.0) Red Cell Distribution Width 13.5 % (11.6-14.8) Platelet Count 121 K/UL (150-450) L Mean Platelet Volume 8.3 FL (6.5-10.1) Neutrophils (%) (Auto) 48.8 % (45.0-75.0) Lymphocytes (%) (Auto) 39.9 % (20.0-45.0) Monocytes (%) (Auto) 7.9 % (1.0-10.0) Eosinophils (%) (Auto) 1.9 % (0.0-3.0) Basophils (%) (Auto) 1.5 % (0.0-2.0) Prothrombin Time 9.9 SEC (9.30-11.50) Prothromb Time International Ratio 0.9 (0.9-1.1) Activated Partial Thromboplast Time 22 SEC (23-33) L Urine HCG, Qualitative Negative Urine Opiates Screen Negative (NEGATIVE) Urine Barbiturates Screen Negative (NEGATIVE) Phencyclidine (PCP) Screen Negative (NEGATIVE) Urine Amphetamines Screen Negative (NEGATIVE) Urine Benzodiazepines Screen Negative (NEGATIVE) Urine Cocaine Screen Positive (NEGATIVE) H Urine Marijuana (THC) Screen Negative (NEGATIVE) Sodium Level 145 MMOL/L (136-145) Potassium Level 4.6 MMOL/L (3.5-5.1) Chloride Level 110 MMOL/L (98-107) H Carbon Dioxide Level 28 MMOL/L (21-32) Anion Gap 7 mmol/L (5-15) Blood Urea Nitrogen 17 mg/dL (7-18) Creatinine 1.6 MG/DL (0.55-1.30) H Estimat Glomerular Filtration Rate 43.3 mL/min (>60) Glucose Level 68 MG/DL (74-106) L Calcium Level 8.7 MG/DL (8.5-10.1) Total Bilirubin 0.2 MG/DL (0.2-1.0) Aspartate Amino Transf (AST/SGOT) 87 U/L (15-37) H Alanine Aminotransferase (ALT/SGPT) 33 U/L (12-78) Alkaline Phosphatase 151 U/L (46-116) H Total Creatine Kinase 59 U/L (26-308) Troponin I 0.001 ng/mL (0.000-0.056) Pro-B-Type Natriuretic Peptide 135 pg/mL (0-125) H Total Protein 7.2 G/DL (6.4-8.2) Albumin 3.1 G/DL (3.4-5.0) L Globulin 4.1 g/dL Albumin/Globulin Ratio 0.8 (1.0-2.7) L Serum Alcohol < 3 mg/dL Microbiology Date/Time Source Procedure Growth Status 10/05/17 23:03 Stool Clostridium difficile Toxin Assay - Final Complete Height (Feet): 5 Height (Inches): 6.00 Weight (Pounds): 108 Medications Current Medications Medications (Trade) Dose Ordered Sig/Mateo Route PRN Reason Start Time Stop Time Status Last Admin Dose Admin Acetaminophen (Tylenol) 650 mg Q4H PRN ORAL fever 10/06/17 05:15 11/05/17 05:14 Al Hydroxide/Mg Hydroxide (Mylanta II) 30 ml Q6H PRN ORAL dyspepsia 10/06/17 05:15 11/05/17 05:14 Albuterol/ Ipratropium (Albuterol/ Ipratropium) 3 ml EVERY 4 HOURS PRN HHN Shortness of Breath 10/06/17 05:15 10/11/17 05:14 Amlodipine Besylate (Norvasc) 5 mg Q12HR ORAL 10/06/17 09:00 11/05/17 08:59 10/06/17 09:02 Clonidine HCl (Catapres) 0.1 mg EVERY 4 HOURS PRN ORAL sbp more than 160 10/06/17 05:15 11/05/17 05:14 Dextrose (Dextrose 50%) STAT PRN IV Hypoglycemia 10/06/17 07:45 11/05/17 07:44 Divalproex Sodium (Depakote ER) 1,000 mg QHS ORAL 10/06/17 21:00 11/05/17 20:59 Heparin Sodium (Porcine) (Heparin 5000 units/ml) 5,000 units EVERY 12 HOURS SUBQ 10/06/17 09:00 11/05/17 08:59 Insulin Aspart (NovoLOG) BEFORE MEALS AND HS SUBQ 10/06/17 06:30 11/05/17 06:29 10/06/17 08:20 Insulin Aspart (NovoLOG) 5 units NOVOTIAC SUBQ 10/06/17 11:50 11/05/17 11:49 Insulin Detemir (Levemir) 8 units Q12HR SUBQ 10/06/17 09:00 11/05/17 08:59 10/06/17 09:29 Ketorolac Tromethamine (Toradol 30mg) 30 mg Q6H PRN IV Moderate Pain (Pain Scale 4-6) 10/06/17 05:15 10/11/17 05:14 Nitroglycerin (Ntg) 0.4 mg Q5M X 3 DOSES PRN SL Prn Chest Pain 10/06/17 05:15 11/05/17 05:14 Ondansetron HCl (Zofran) 4 mg Q6H PRN IVP Nausea & Vomiting 10/06/17 05:15 11/05/17 05:14 Pantoprazole (Protonix) 40 mg DAILY ORAL 10/06/17 09:00 11/05/17 08:59 10/06/17 09:01 Polyethylene Glycol (Miralax) 17 gm HSPRN PRN ORAL Constipation 10/06/17 05:15 11/05/17 05:14 Sodium Chloride 1,000 ml @ 100 mls/hr Q10H IVLG 10/06/17 18:23 11/05/17 18:22 Temazepam (Restoril) 15 mg HSPRN PRN ORAL Insomnia 10/06/17 05:15 10/13/17 05:14 Assessment/Plan Problem List: (1) Altered mental status ICD Codes: R41.82 - Altered mental status, unspecified SNOMED: 801128848 (2) Hypoglycemia ICD Codes: E16.2 - Hypoglycemia, unspecified SNOMED: 790608605 (3) Psychiatric disorder ICD Codes: F99 - Mental disorder, not otherwise specified SNOMED: 63786601, 317972414 (4) Gastroparesis due to DM ICD Codes: E11.43 - 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
--- NOTE | 2017-10-06 13:26 | Cardiac Electrophysiology PN ---
Subjective Subjective Dictated [id number] Objective Last 24 Hour Vital Signs Date Time Temp Pulse Resp B/P (MAP) Pulse Ox O2 Delivery O2 Flow Rate FiO2 10/06/17 12:00 97.7 93 15 145/89 95 Room Air 10/06/17 09:02 93 141/110 10/06/17 08:41 89 10/06/17 08:30 97.7 93 15 141/101 95 Room Air 10/06/17 08:18 97.2 93 13 131/77 99 Room Air 10/06/17 05:40 97.2 93 13 131/77 99 Room Air 10/06/17 03:30 98.3 90 10 129/90 99 Room Air 10/06/17 01:34 98.2 89 11 130/69 99 Room Air 10/05/17 23:43 98.0 88 12 124/74 100 Room Air 10/05/17 22:00 97.6 82 11 141/81 100 Room Air 10/05/17 19:19 97.6 84 14 107/70 100 Room Air 10/05/17 19:07 80 14 107/70 100 Room Air Intake and Output 10/06/17 10/07/17 19:00 07:00 # Bowel Movements 1 Laboratory Tests Test 10/05/17 19:38 10/05/17 20:00 10/05/17 20:15 White Blood Count 8.1 K/UL (4.8-10.8) Red Blood Count 3.23 M/UL (4.20-5.40) L Hemoglobin 10.6 G/DL (12.0-16.0) L Hematocrit 33.0 % (37.0-47.0) L Mean Corpuscular Volume 102 FL (80-99) H Mean Corpuscular Hemoglobin 32.7 PG (27.0-31.0) H Mean Corpuscular Hemoglobin Concent 32.0 G/DL (32.0-36.0) Red Cell Distribution Width 13.5 % (11.6-14.8) Platelet Count 121 K/UL (150-450) L Mean Platelet Volume 8.3 FL (6.5-10.1) Neutrophils (%) (Auto) 48.8 % (45.0-75.0) Lymphocytes (%) (Auto) 39.9 % (20.0-45.0) Monocytes (%) (Auto) 7.9 % (1.0-10.0) Eosinophils (%) (Auto) 1.9 % (0.0-3.0) Basophils (%) (Auto) 1.5 % (0.0-2.0) Prothrombin Time 9.9 SEC (9.30-11.50) Prothromb Time International Ratio 0.9 (0.9-1.1) Activated Partial Thromboplast Time 22 SEC (23-33) L Urine HCG, Qualitative Negative Urine Opiates Screen Negative (NEGATIVE) Urine Barbiturates Screen Negative (NEGATIVE) Phencyclidine (PCP) Screen Negative (NEGATIVE) Urine Amphetamines Screen Negative (NEGATIVE) Urine Benzodiazepines Screen Negative (NEGATIVE) Urine Cocaine Screen Positive (NEGATIVE) H Urine Marijuana (THC) Screen Negative (NEGATIVE) Sodium Level 145 MMOL/L (136-145) Potassium Level 4.6 MMOL/L (3.5-5.1) Chloride Level 110 MMOL/L (98-107) H Carbon Dioxide Level 28 MMOL/L (21-32) Anion Gap 7 mmol/L (5-15) Blood Urea Nitrogen 17 mg/dL (7-18) Creatinine 1.6 MG/DL (0.55-1.30) H Estimat Glomerular Filtration Rate 43.3 mL/min (>60) Glucose Level 68 MG/DL (74-106) L Calcium Level 8.7 MG/DL (8.5-10.1) Total Bilirubin 0.2 MG/DL (0.2-1.0) Aspartate Amino Transf (AST/SGOT) 87 U/L (15-37) H Alanine Aminotransferase (ALT/SGPT) 33 U/L (12-78) Alkaline Phosphatase 151 U/L (46-116) H Total Creatine Kinase 59 U/L (26-308) Troponin I 0.001 ng/mL (0.000-0.056) Pro-B-Type Natriuretic Peptide 135 pg/mL (0-125) H Total Protein 7.2 G/DL (6.4-8.2) Albumin 3.1 G/DL (3.4-5.0) L Globulin 4.1 g/dL Albumin/Globulin Ratio 0.8 (1.0-2.7) L Serum Alcohol < 3 mg/dL Microbiology Date/Time Source Procedure Growth Status 10/05/17 23:03 Stool Clostridium difficile Toxin Assay - Final Complete MARCIA PINTO Oct 06, 2017 13:26
[2017-10-06] MEDS ORDERED: LORazepam 1mg tab ORAL PRN ×3 (14:45→21:15)
[2017-10-06] MEDS ORDERED: LORazepam Inj 2mg/ml 1ml IV PRN ×2 (15:00→21:00)
--- NOTE | 2017-10-06 17:46 | History and Physical Report ---
DATE OF ADMISSION: 10/06/2017 TIME SEEN: 1 p.m. CONSULTANTS: 1. Fred Paz M.D. 2. Bertin Grady M.D. 3. Patrice Melissa M.D. CHIEF COMPLAINT: Diabetes, hyperglycemia, and weakness. HISTORY OF PRESENT ILLNESS: The patient is a 42-year-old female who lives at home, presented to the [place] ER last night with increased hyperglycemia, was found to be elevated, admitted to telemetry for further care. Currently, slightly anxious in bed. No other complaint. No chest pain or shortness of breath. No nausea, vomiting, or diarrhea. PAST MEDICAL HISTORY: Diabetes, hypertension, encephalopathy, CIERA, and acute renal failure. PAST SURGICAL HISTORY: Unknown. MEDICATIONS: Depakote, NovoLog, Protonix, Norvasc, heparin, Levemir, albuterol, Tylenol, MiraLAX, and Zofran. ALLERGIES: Denies. SOCIAL HISTORY: Positive smoking. No alcohol. No intravenous drug use. FAMILY HISTORY: Noncontributory. PHYSICAL EXAMINATION: GENERAL: Calm, anxious in bed, oriented x2, no acute distress. VITAL SIGNS: Temperature 97 degrees, pulse 92, respiratory rate 15, and blood pressure 145/89. CARDIOVASCULAR: No murmur. LUNGS: Distant and Clear. ABDOMEN: Bowel sounds are positive. Nontender and nondistended. EXTREMITIES: No cyanosis, clubbing, or edema. NEUROLOGIC: The patient moves all extremities slightly weak. LABORATORY AND DIAGNOSTIC DATA: Hemoglobin 10.6, otherwise CBC is normal. BMP shows chloride 110, creatinine 1.6, and glucose 68. AST 87 and alkaline phosphatase 131. Troponin 0.001. INR is 0.9 and PTT is 22. Urine toxicology is positive for cocaine. Urine HCG is negative. ASSESSMENT: 1. Diabetes. 2. Hypoglycemia. 3. Encephalopathy. 4. Acute kidney injury. 5. Anemia. 6. Hypertension. PLAN: Continue pre-medications. OT/PT. Dietary followup. Blood sugar control. Pain control. Psychiatric treatment. Dr. Paz, Dr. Alejo, Dr. Melissa, Dr. Salinas, and Dr. White to consult. We will continue to follow this patient medically. Brandon Arana D.O. DR: TRIXIE JOB#: [id number] CC:
--- NOTE | 2017-10-06 18:02 | Consultation ---
DATE OF CONSULTATION: 10/06/2017 CARDIOLOGY CONSULTATION CONSULTING PHYSICIAN: Rell Salinas M.D. REFERRING PHYSICIAN: Brandon Arana D.O. REASON FOR CONSULTATION: Tachycardia. BRIEF HISTORY OF PRESENT ILLNESS: The patient is a 42-year-old lady with history of diabetes and diabetic ketoacidosis with history of hyperosmolar state, as well as history of hypoglycemia in the past, and gastroparesis, was brought in by paramedics for altered mental status. The patient's blood sugar was less than 20 in the field. The patient received glucagon and it had risen to 57. The patient was admitted. A Cardiology consultation was requested for further evaluation and management as the patient was tachycardic. REVIEW OF SYSTEMS: Review of systems was performed and was negative other than what was mentioned in the history of present illness. PAST MEDICAL HISTORY: As mentioned above and includes also hypertension. MEDICATIONS AT HOME: Norvasc 5 mg b.i.d., clonidine, insulin, magnesium, ranitidine, and temazepam. SOCIAL HISTORY: She lives at home and has a history of cocaine abuse, but currently denies using cocaine. FAMILY HISTORY: Noncontributory. PHYSICAL EXAMINATION: VITAL SIGNS: Blood pressure is 145/89, pulse 92, respiratory rate 15. HEAD AND NECK: No JVD. LUNGS: Coarse rhonchi. CARDIOVASCULAR: Regular S1 and S2 with no gallop or murmur. ABDOMEN: Soft. EXTREMITIES: No pitting edema. LABORATORY DATA: Labs show white count of 8.5, hematocrit 10.6, hematocrit 33, and platelet count of 121,000. Sodium 141, potassium 4.6, BUN of 17, creatinine 1.6, and glucose of 68. Troponin is negative. INR is 0.9. Urine toxicology screen is positive for cocaine. ASSESSMENT AND PLAN: 1. Tachycardia due to sinus tachycardia in a patient with cocaine abuse. There is no evidence of atrial fibrillation or any other supraventricular tachycardia. Avoid beta-penelope in view of the patient's active cocaine use. We will get an echocardiogram for ejection fraction and wall motion abnormality. 2. Hypertension, on Norvasc and p.r.n. clonidine. 3. Severe hypoglycemia. Further management by Dr. Alejo. Currently on insulin. Thank you very much, Dr. Arana, for allowing me to participate in the care of this patient. Please do not hesitate to contact me if you have any questions regarding my evaluation. Rell Salinas M.D. DR: Rasheed JOB#: [id number] CC:
[2017-10-06] MEDS ORDERED: Depakote ER 500mg tab ORAL SCH ×2 (21:00→21:30)
[2017-10-06] MEDS: Heparin 5000 units/ml inj SUBQ SCH (21:21)
[2017-10-06] MEDS: Levemir Flexpen SUBQ SCH (21:21)
[2017-10-07 04:20] VITALS: BP 139/97
[2017-10-07] MEDS: NovoLOG Insulin Flexpen SUBQ SCH ×6 (05:53→16:52)
[2017-10-07 06:15] LABS: BASOPHILS % (AUTO) 0.7 % (0.0-2.0); LYMPHOCYTES % (AUTO) 31.7 % (20.0-45.0); MEAN CORPUSCULAR HEMOGLOBIN 33.9 PG (27.0-31.0); MEAN CORPUSCULAR HGB CONC 32.7 G/DL (32.0-36.0); MEAN CORPUSCULAR VOLUME 104 FL (80-99); NEUTROPHILS % (AUTO) 57.5 % (45.0-75.0); PLATELET COUNT 214 K/UL (150-450); RED BLOOD COUNT 2.71 M/UL (4.20-5.40); RED CELL DISTRIBUTION WIDTH 13.1 % (11.6-14.8); WHITE BLOOD COUNT 7.8 K/UL (4.8-10.8)
[2017-10-07 06:56] LABS: ALANINE AMINOTRANSFERASE 29 U/L (12-78); ALBUMIN/GLOBULIN RATIO 0.9 (1.0-2.7); ANION GAP 7 mmol/L (5-15); ASPARTATE AMINO TRANSFERASE 20 U/L (15-37); CALCIUM 8.3 MG/DL (8.5-10.1); CARBON DIOXIDE 27 MMOL/L (21-32); CHLORIDE 102 MMOL/L (98-107); CHOLESTEROL 123 MG/DL (< 200); CHOLESTEROL/HDL RATIO 3.5 (3.3-4.4); CREATININE 1.8 MG/DL (0.55-1.30); GLOMERULAR FILTRATION RATE 37.8 mL/min (>60); SODIUM 136 MMOL/L (136-145); THYROID STIMULATING HORMONE 0.784 uiU/mL (0.360-3.740); TOTAL PROTEIN 6.7 G/DL (6.4-8.2)
[2017-10-07 08:00] VITALS: BP 120/70
--- NOTE | 2017-10-07 08:00 | Consultation ---
DATE OF CONSULTATION: 10/06/2017 HISTORY OF PRESENT ILLNESS: This is a 42-year-old female patient with hypoglycemia. She continues to have some confusion, disorganized thought process, lability, no logical plan for her own self-care, . She does have hypoglycemia at this point, that is why she does require inpatient treatment. She does have confusion, disorganized thought process, both felt secondary to progression of irritable and agitation. She seemed to be very confused on everything. She states while she was is in the hospital, but then, she is very irritable/hostile. MEDICAL HISTORY: Hypoglycemia. ALLERGIES: No known drug allergies. SOCIAL HISTORY: Financially supported by [email or web address], appears to be homeless. PSYCHIATRIC HISTORY: Schizoaffective bipolar type. MENTAL STATUS EXAMINATION: A 42-year-old female with psychomotor agitation. Affect guarded and restricted. psychomotor agitation. The patient . She has positive speech. Insight and judgement is poor. DIAGNOSIS: Schizoaffective bipolar type. PLAN: My plan for this patient is to treat her with medication regimen consisting of Risperdal 1 mg p.o. b.i.d. to decrease agitation and psychosis, to stabilize her mood, Ativan 1 mg q.6 h. p.r.n. . Chart was reviewed and discussed with staff. I would like to thank Dr. Brandon Arana for this interesting consultation. Patrice Melissa M.D. DR: Ho JOB#: [id number] CC:
[2017-10-07 08:04] LABS: HEMOGLOBIN A1C 11.1 % (4.3-6.0)
[2017-10-07] MEDS: Heparin 5000 units/ml inj SUBQ SCH (08:32)
[2017-10-07] MEDS: Levemir Flexpen SUBQ SCH (08:33)
[2017-10-07 12:00] VITALS: BP 143/104
--- NOTE | 2017-10-07 13:01 | Cardiology Report ---
APPROVED REPORT EXAM: Two-dimensional and M-mode echocardiogram with Doppler and color Doppler. INDICATION Tachycardia M-Mode DIMENSIONS IVSd1.2 (0.7-1.1cm)Left Atrium (MM)3.6 (1.6-4.0cm) LVDd3.9 (3.5-5.6cm)Aortic Root2.6 (2.0-3.7cm) PWd0.9 (0.7-1.1cm)Aortic Cusp Exc.1.6 (1.5-2.0cm) LVDs1.8 (2.5-4.0cm) PWs1.7 cm Normal left ventricular chamber size, systolic function and wall motion. Left ventricular ejection fraction estimated to be 60 %. Mild left ventricular hypertrophy. No evidence of pericardial effusion. All other cardiac chamber sizes are within normal limits. Focal aortic valve sclerosis with adequate cusp excursion. Mildly thickened mitral valve leaflets with normal excursion. Mild mitral annulus and aortic root calcification. Normal pulmonic valve structure. Normal tricuspid valve structure. IVC is normal in size with physiological collapse. A color flow and spectral Doppler study was performed and revealed: No aortic insufficiency. Mild mitral regurgitation. Mitral diastolic velocities suggest reduced left ventricular relaxation c/w diastolic dysfunction (Grade I). Trace tricuspid regurgitation. Tricuspid systolic velocities suggests peak right ventricular systolic pressure of 21 mmHg. Trace pulmonic regurgitation present.
--- NOTE | 2017-10-07 15:05 | General Progress Note ---
Assessment/Plan Problem List: (1) Diabetes ICD Codes: E11.9 - Type 2 diabetes mellitus without complications SNOMED: 04908114 (2) Anemia ICD Codes: D64.9 - Anemia, unspecified SNOMED: 279012197 (3) ARF (acute renal failure) ICD Codes: N17.9 - Acute kidney failure, unspecified SNOMED: 75500200 Status: stable, progressing, tolerating diet Assessment/Plan ot pt diet bs control cbc bmp am Subjective Constitutional: Reports: weakness Allergies: Coded Allergies: No Known Allergies (Verified , NONE, 04/29/17) All Systems: reviewed and negative except above Subjective sl agitated in rivers Objective Last 24 Hour Vital Signs Date Time Temp Pulse Resp B/P (MAP) Pulse Ox O2 Delivery O2 Flow Rate FiO2 10/07/17 12:00 98.1 92 20 143/104 100 Room Air 10/07/17 08:55 98 18 Room Air 21 10/07/17 08:34 98 120/70 10/07/17 08:00 97.7 98 20 120/70 96 Room Air 10/07/17 04:20 97.6 85 18 139/97 98 Room Air 10/06/17 21:11 93 123/92 10/06/17 20:00 97.6 93 16 123/92 100 Room Air 10/06/17 20:00 97.5 72 20 126/68 95 Room Air 10/06/17 16:00 90 10/06/17 16:00 97.7 90 15 141/92 100 Room Air Laboratory Tests 10/07/17 06:20: White Blood Count 7.8, Red Blood Count 2.71L, Hemoglobin 9.2L, Hematocrit 28.1L , Mean Corpuscular Volume 104H, Mean Corpuscular Hemoglobin 33.9H, Mean Corpuscular Hemoglobin Concent 32.7, Red Cell Distribution Width 13.1, Platelet Count 214#, Mean Platelet Volume 8.0, Neutrophils (%) (Auto) 57.5, Lymphocytes ( %) (Auto) 31.7, Monocytes (%) (Auto) 8.0, Eosinophils (%) (Auto) 2.0, Basophils (%) (Auto) 0.7, Free Thyroxine 0.82 10/07/17 06:28: Sodium Level 136, Potassium Level 5.0, Chloride Level 102, Carbon Dioxide Level 27, Anion Gap 7, Blood Urea Nitrogen 24H, Creatinine 1.8H, Estimat Glomerular Filtration Rate 37.8, Glucose Level 347#H, Hemoglobin A1c 11.1H, Calcium Level 8.3L, Total Bilirubin 0.2, Aspartate Amino Transf (AST/SGOT) 20, Alanine Aminotransferase (ALT/SGPT) 29, Alkaline Phosphatase 149H, Total Protein 6.7, Albumin 3.2L, Globulin 3.5, Albumin/Globulin Ratio 0.9L, Triglycerides Level 120 , Cholesterol Level 123, LDL Cholesterol 72, HDL Cholesterol 35L, Cholesterol/ HDL Ratio 3.5, Thyroid Stimulating Hormone (TSH) 0.784 Height (Feet): 5 Height (Inches): 6.00 Weight (Pounds): 108 General Appearance: confused EENT: normal ENT inspection Neck: normal alignment Cardiovascular: normal peripheral pulses, normal rate, regular rhythm Respiratory/Chest: chest wall non-tender, lungs clear, normal breath sounds Abdomen: normal bowel sounds, non tender, soft Extremities: normal inspection Edema: no edema noted Arm (L), no edema noted Arm (R), no edema noted Leg (L), no edema noted Leg (R), no edema noted Pedal (L), no edema noted Pedal (R), no edema noted Generalized Neurologic: responsive, motor weakness Skin: normal pigmentation, warm/dry ENOCH GONZALEZ Oct 07, 2017 15:05
[2017-10-07] MEDS ORDERED: LEVEMIR FL100 UNIT/1 SUBQ (15:29)
--- NOTE | 2017-10-07 15:30 | Progress Note ---
DATE: 10/07/2017 SUBJECTIVE: The patient is a 42-year-old female with hypoglycemia. PLAN: The patient is still confused and disorganized intermittently, agitated. Continue on Risperdal to reduce for agitation. Seen and assessed at bedside. Chart reviewed and discussed with staff. Patrice Melissa M.D. DR: HERMINIO JOB#: [id number] CC:
--- NOTE | 2017-10-07 15:31 | Pulmonology Progress Note ---
Assessment/Plan Problems: (1) Altered mental status (2) Hypoglycemia (3) Psychiatric disorder (4) Gastroparesis due to DM Assessment/Plan improving endo consult appreciated. Subjective ROS Limited/Unobtainable: No Interval Events: doing good Allergies: Coded Allergies: No Known Allergies (Verified , NONE, 04/29/17) Objective Last 24 Hour Vital Signs Date Time Temp Pulse Resp B/P (MAP) Pulse Ox O2 Delivery O2 Flow Rate FiO2 10/07/17 12:00 98.1 92 20 143/104 100 Room Air 10/07/17 08:55 98 18 Room Air 21 10/07/17 08:34 98 120/70 10/07/17 08:00 97.7 98 20 120/70 96 Room Air 10/07/17 04:20 97.6 85 18 139/97 98 Room Air 10/06/17 21:11 93 123/92 10/06/17 20:00 97.6 93 16 123/92 100 Room Air 10/06/17 20:00 97.5 72 20 126/68 95 Room Air 10/06/17 16:00 90 10/06/17 16:00 97.7 90 15 141/92 100 Room Air General Appearance: WD/WN HEENT: normocephalic, atraumatic Respiratory/Chest: chest wall non-tender, lungs clear Breasts: no masses Cardiovascular: normal rate Abdomen: normal bowel sounds, soft, non tender Genitourinary: normal external genitalia Extremities: no clubbing 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 II-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 grossly normal, no motor/sensory deficits Microbiology Date/Time Source Procedure Growth Status 10/05/17 23:03 Stool Clostridium difficile Toxin Assay - Final Complete Laboratory Tests 10/07/17 06:20: White Blood Count 7.8, Red Blood Count 2.71L, Hemoglobin 9.2L, Hematocrit 28.1L , Mean Corpuscular Volume 104H, Mean Corpuscular Hemoglobin 33.9H, Mean Corpuscular Hemoglobin Concent 32.7, Red Cell Distribution Width 13.1, Platelet Count 214#, Mean Platelet Volume 8.0, Neutrophils (%) (Auto) 57.5, Lymphocytes ( %) (Auto) 31.7, Monocytes (%) (Auto) 8.0, Eosinophils (%) (Auto) 2.0, Basophils (%) (Auto) 0.7, Free Thyroxine 0.82 10/07/17 06:28: Sodium Level 136, Potassium Level 5.0, Chloride Level 102, Carbon Dioxide Level 27, Anion Gap 7, Blood Urea Nitrogen 24H, Creatinine 1.8H, Estimat Glomerular Filtration Rate 37.8, Glucose Level 347#H, Hemoglobin A1c 11.1H, Calcium Level 8.3L, Total Bilirubin 0.2, Aspartate Amino Transf (AST/SGOT) 20, Alanine Aminotransferase (ALT/SGPT) 29, Alkaline Phosphatase 149H, Total Protein 6.7, Albumin 3.2L, Globulin 3.5, Albumin/Globulin Ratio 0.9L, Triglycerides Level 120 , Cholesterol Level 123, LDL Cholesterol 72, HDL Cholesterol 35L, Cholesterol/ HDL Ratio 3.5, Thyroid Stimulating Hormone (TSH) 0.784 Current Medications Medications (Trade) Dose Ordered Sig/Mateo Route PRN Reason Start Time Stop Time Status Last Admin Dose Admin Acetaminophen (Tylenol) 650 mg Q4H PRN ORAL fever 10/06/17 21:15 11/05/17 05:14 Al Hydroxide/Mg Hydroxide (Mylanta II) 30 ml Q6H PRN ORAL dyspepsia 10/06/17 21:30 11/05/17 21:29 Albuterol/ Ipratropium (Albuterol/ Ipratropium) 3 ml Q4H PRN HHN Shortness of Breath 10/06/17 21:00 10/11/17 20:59 Amlodipine Besylate (Norvasc) 5 mg Q12HR ORAL 10/06/17 21:30 11/05/17 21:29 10/07/17 08:34 Clonidine HCl (Catapres) 0.1 mg Q4H PRN ORAL sbp more than 160 10/06/17 21:00 11/05/17 20:59 Dextrose (Dextrose 50%) STAT PRN IV Hypoglycemia 10/06/17 21:30 11/05/17 21:29 Divalproex Sodium (Depakote ER) 1,000 mg QHS ORAL 10/06/17 21:30 11/05/17 21:29 10/06/17 21:11 Heparin Sodium (Porcine) (Heparin 5000 units/ml) 5,000 units EVERY 12 HOURS SUBQ 10/06/17 21:30 11/05/17 21:29 Insulin Aspart (NovoLOG) BEFORE MEALS AND HS SUBQ 10/06/17 21:00 11/05/17 06:29 10/07/17 12:50 Insulin Aspart (NovoLOG) 5 units NOVOTIAC SUBQ 10/07/17 06:30 11/05/17 11:49 10/07/17 12:51 Insulin Detemir (Levemir) 8 units Q12HR SUBQ 10/06/17 21:00 11/05/17 08:59 10/07/17 08:33 Ketorolac Tromethamine (Toradol 30mg) 30 mg Q6H PRN IV Moderate Pain (Pain Scale 4-6) 10/06/17 21:30 10/11/17 21:29 Lorazepam (Ativan 2mg/ml 1ml) 1 mg Q6H PRN IV For Anxiety 10/06/17 21:00 10/13/17 14:59 Lorazepam (Ativan) 1 mg Q6H PRN ORAL For Anxiety 10/06/17 21:15 10/13/17 15:14 Nitroglycerin (Ntg) 0.4 mg Q5M X 3 DOSES PRN SL Prn Chest Pain 10/06/17 20:45 11/05/17 05:14 Ondansetron HCl (Zofran) 4 mg Q6H PRN IVP Nausea & Vomiting 10/06/17 21:30 11/05/17 21:29 Pantoprazole (Protonix) 40 mg DAILY ORAL 10/07/17 09:00 11/05/17 08:59 10/07/17 08:31 Polyethylene Glycol (Miralax) 17 gm HSPRN PRN ORAL Constipation 10/06/17 21:30 11/05/17 21:29 Risperidone (RisperDAL) 1 mg BID ORAL 10/07/17 09:00 11/05/17 17:59 10/07/17 08:31 Temazepam (Restoril) 15 mg HSPRN PRN ORAL Insomnia 10/06/17 21:30 10/13/17 21:29 10/06/17 21:10 MILA LAINEZ Oct 07, 2017 15:30
[2017-10-07 15:57] VITALS: BP 111/76
--- NOTE | 2017-10-07 17:09 | Cardiac Electrophysiology PN ---
Assessment/Plan Assessment/Plan 1. Sinus tachycardia in a patient with cocaine abuse.Echo Nl EF No evidence of atrial fibrillation or any other supraventricular tachycardia. Avoid beta-penelope in view of the patient's active cocaine use. 2. Hypertension, on Norvasc and p.r.n. clonidine. 3. Severe hypoglycemia. Pe Dr. Alejo on insulin. Subjective Subjective Comfortable in NAD. Awaiting DC home today Objective Last 24 Hour Vital Signs Date Time Temp Pulse Resp B/P (MAP) Pulse Ox O2 Delivery O2 Flow Rate FiO2 10/07/17 15:57 97.7 94 18 111/76 100 Room Air 10/07/17 12:00 98.1 92 20 143/104 100 Room Air 10/07/17 08:55 98 18 Room Air 21 10/07/17 08:34 98 120/70 10/07/17 08:00 97.7 98 20 120/70 96 Room Air 10/07/17 04:20 97.6 85 18 139/97 98 Room Air 10/06/17 21:11 93 123/92 10/06/17 20:00 97.6 93 16 123/92 100 Room Air 10/06/17 20:00 97.5 72 20 126/68 95 Room Air Laboratory Tests Test 10/07/17 06:20 10/07/17 06:28 White Blood Count 7.8 K/UL (4.8-10.8) Red Blood Count 2.71 M/UL (4.20-5.40) L Hemoglobin 9.2 G/DL (12.0-16.0) L Hematocrit 28.1 % (37.0-47.0) L Mean Corpuscular Volume 104 FL (80-99) H Mean Corpuscular Hemoglobin 33.9 PG (27.0-31.0) H Mean Corpuscular Hemoglobin Concent 32.7 G/DL (32.0-36.0) Red Cell Distribution Width 13.1 % (11.6-14.8) Platelet Count 214 K/UL (150-450) # Mean Platelet Volume 8.0 FL (6.5-10.1) Neutrophils (%) (Auto) 57.5 % (45.0-75.0) Lymphocytes (%) (Auto) 31.7 % (20.0-45.0) Monocytes (%) (Auto) 8.0 % (1.0-10.0) Eosinophils (%) (Auto) 2.0 % (0.0-3.0) Basophils (%) (Auto) 0.7 % (0.0-2.0) Free Thyroxine 0.82 NG/DL (0.10-1.46) Sodium Level 136 MMOL/L (136-145) Potassium Level 5.0 MMOL/L (3.5-5.1) Chloride Level 102 MMOL/L (98-107) Carbon Dioxide Level 27 MMOL/L (21-32) Anion Gap 7 mmol/L (5-15) Blood Urea Nitrogen 24 mg/dL (7-18) H Creatinine 1.8 MG/DL (0.55-1.30) H Estimat Glomerular Filtration Rate 37.8 mL/min (>60) Glucose Level 347 MG/DL (74-106) #H Hemoglobin A1c 11.1 % (4.3-6.0) H Calcium Level 8.3 MG/DL (8.5-10.1) L Total Bilirubin 0.2 MG/DL (0.2-1.0) Aspartate Amino Transf (AST/SGOT) 20 U/L (15-37) Alanine Aminotransferase (ALT/SGPT) 29 U/L (12-78) Alkaline Phosphatase 149 U/L (46-116) H Total Protein 6.7 G/DL (6.4-8.2) Albumin 3.2 G/DL (3.4-5.0) L Globulin 3.5 g/dL Albumin/Globulin Ratio 0.9 (1.0-2.7) L Triglycerides Level 120 MG/DL (0-200) Cholesterol Level 123 MG/DL (< 200) LDL Cholesterol 72 mg/dL (<100) HDL Cholesterol 35 MG/DL (40-60) L Cholesterol/HDL Ratio 3.5 (3.3-4.4) Thyroid Stimulating Hormone (TSH) 0.784 uiU/mL (0.360-3.740) Microbiology Date/Time Source Procedure Growth Status 10/05/17 23:03 Stool Clostridium difficile Toxin Assay - Final Complete Objective HEAD AND NECK: No JVD. LUNGS: Coarse rhonchi. CARDIOVASCULAR: Regular S1 and S2 with no gallop or murmur. ABDOMEN: Soft. EXTREMITIES: No pitting edema. MARCIA PINTO Oct 07, 2017 17:09
--- NOTE | 2017-10-08 08:41 | Cardiology Report ---
APPROVED REPORT EKG Measurement Heart [id number] CT 166P57 [id number] Normal sinus rhythm Possible Left atrial enlargement Low voltage QRS Left anterior fascicular block Cannot rule out Anterior infarct, age undetermined Abnormal ECG
--- NOTE | 2017-10-09 11:10 | Discharge Summary ---
Discharge Summary Hospital Course Date of Admission Oct 06, 2017 at 00:00 Date of Discharge Oct 07, 2017 at 19:32 Admitting Diagnosis hypoglycemia HPI Amaya Wallis is a 42 year old female who was admitted on Oct 06, 2017 at 00: 00 for Hypoglycemia Hospital Course [id number] Discharge Discharge Disposition Patient was discharged to Home Discharge Diagnoses: Estefania Balderas NP Oct 09, 2017 11:10
--- NOTE | 2017-10-09 11:18 | Diagnostic Imaging Report ---
Indication: Cough Technique: One view of the chest Comparison: 05/30/2017 Findings: Lungs and pleural spaces are clear. Heart size is normal . Again demonstrated are flat and pelvis of the right chest. There is no significant interim change Impression: No acute process This agrees with the preliminary interpretation provided by the emergency room physician
--- NOTE | 2017-10-09 21:45 | Discharge Summary 2 SIG ---
DATE OF ADMISSION: 10/06/2017 DATE OF DISCHARGE: 10/07/2017 CONSULTANTS: 1. Rell Salinas M.D. 2. Patrice Melissa M.D. 3. Brandon Arana M.D. BRIEF HOSPITAL COURSE: The patient is a 42-year-old female, who lives at home, presented to ED for increased blood sugar. The patient initially presented with hypoglycemia. EMS was called for altered mentation. Blood sugar in the field was less than 20. She was given glucagon. Blood sugar improved. She has history of diabetes mellitus and had been treated for DKA many times. She required multiple psychiatric evaluation in the past for noncompliance with medication. On evaluation at ED, the patient continued with hypoglycemia even after a meal. D5 water was initiated. Central line was inserted to the right femoral . Further workup showed chest x-ray with no acute cardiopulmonary disease, no infiltrates. There was no leukocytosis. Creatinine was 1.6. She was admitted to telemetry and was seen by Dr. Alejo and was placed on Levemir 8 units b.i.d. and NovoLog 5 units before meals t.i.d. on top of sliding scale. She was tachycardic. There was no evidence of atrial fibrillation or any supraventricular tachycardia. She has history of cocaine abuse. Avoid beta-penelope. She was given Norvasc and p.r.n. clonidine. Echocardiogram done showed EF of 60% with mild mitral regurgitation, trace tricuspid regurgitation. She underwent psychiatric evaluation. The patient had disorganized thought and process with no logical plan on her own self-care. She was diagnosed with schizoaffective, bipolar type and was given Risperdal and Ativan. She was given diabetic education. Blood sugar improved. She was eventually discharged home. FINAL DIAGNOSES: 1. Altered mental status/acute metabolic encephalopathy, secondary to hypoglycemia. 2. Diabetes mellitus with history of noncompliance with medication. 3. Schizoaffective, bipolar type. 4. Gastroparesis due to diabetes mellitus. 5. Sinus tachycardia in a patient with cocaine abuse. 6. Hypertension. 7. Acute renal failure. 8. Anemia. DISPOSITION: The patient was discharged home. DISCHARGE MEDICATIONS: Refer to medication list. FOLLOWUP: Follow up with Dr. Arana in a week. Fred Paz M.D. I have been assigned to dictate discharge summary on this account and I was not involved in the patient's management. Estefania Balderas N.P. DR: Guido JOB#: [id number] CC: ALICIA
== END 2017-10-07 19:32 | disposition home or self-care (01) | DRG 420 ==
LOC: EDBD 19:14 → EMR 20:29 → 2E 10-06 → EDBEDREQ 10-06 03:01 → 4W 10-06 20:09
DX: E11.649 Type 2 diabetes mellitus with hypoglycemia without coma (principal); G93.41 Metabolic encephalopathy; N17.9 Acute kidney failure, unspecified; K31.84 Gastroparesis; E11.43 Type 2 diabetes mellitus with diabetic autonomic (poly)neuropathy; F25.0 Schizoaffective disorder, bipolar type; I10 Essential (primary) hypertension; Z91.19 Patient's noncompliance with other medical treatment and regimen; Z79.4 Long term (current) use of insulin; F14.10 Cocaine abuse, uncomplicated; D64.9 Anemia, unspecified; R00.0 Tachycardia, unspecified
CPT/HCPCS: 36415; 71010; 80053; 80061; 80307; 80329; 81025; 82550; 82962; 83036; 83880; 84439; 84443; 84484; 85025; 85610; 85730; 87081; 87324; 93005; 93306; 94664; 99285; J1815; S5561

== ENCOUNTER 2017-10-27 08:48 | Emergency (ER) | payer OTHER ==
[~2017-10-27] VITALS: Ht 167.6 cm; Wt 54.4 kg
--- NOTE | 2017-10-27 08:51 | Emergency Room Report ---
History of Present Illness General Chief Complaint: Altered Mental Status Source: Patient, EMS Present Illness HPI 42-year-old female brought in by EMS for altered mental status Found altered by family blood sugar was "low" Patient given glucagon and started on D10 drip by EMS Noted improvement in mental status in route No signs of trauma at the scene Patient well-known to ER and [place] for multiple visits History of present illness otherwise limited due to altered mental status Allergies: Coded Allergies: No Known Allergies (Verified , NONE, 04/29/17) Patient History Past Medical History: DM, HTN, seizures, psych hx Past Surgical History: none Pertinent Family History: none Social History: Denies: smoking, alcohol use, drug use Last Menstrual Period: Three weeks ago Now: No Immunizations: UTD Reviewed Nursing Documentation: PMH: Agreed, PSxH: Agreed Review of Systems All Other Systems: limited - ams Physical Exam Vital Signs Date Time Temp Pulse Resp B/P (MAP) Pulse Ox O2 Delivery O2 Flow Rate FiO2 10/27/17 08:44 70 16 138/70 97 Room Air Sp02 EP Interpretation: reviewed, normal General Appearance: normal inspection, well appearing, no apparent distress, alert, GCS 15, non-toxic, other - patient awake, oriented answering questions appropriately Head: normocephalic, atraumatic ENT: normal ENT inspection, hearing grossly normal, normal voice Neck: normal inspection, full range of motion, supple, no bony tend Respiratory: normal inspection, lungs clear, normal breath sounds, no respiratory distress, no retraction, no wheezing Cardiovascular #1: regular rate, rhythm, no edema Gastrointestinal: normal inspection, normal bowel sounds, non tender, soft, no guarding, no hernia Genitourinary: no CVA tenderness Musculoskeletal: normal inspection, back normal, normal range of motion, Daniel' s Sign negative Neurologic: normal inspection, alert, oriented x3, responsive, 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, speech normal Psychiatric: normal inspection, judgement/insight normal, mood/affect normal Skin: normal inspection, normal color, no rash Medical Decision Making Diagnostic Impression: Primary Impression: Altered mental status Qualified Codes: R41.82 - Altered mental status, unspecified Additional Impression: Hypoglycemia ER Course Hypoglycemia likely due to overdose of insulin home Patient not on long acting sulfonylurea Was given IV dextrose in ER Continued progressive improvement in mental status CBC and CMP unremarkable serial check showed normal glucose levels Patient's mental status improved Tolerating by mouth Ambulating in the ER ER course: Patient has remained stable during ED stay. Patient is to be discharged to home. Patient is instructed to follow up with their primary care doctor within 5 days. Strict return precautions discussed with patient such as fever, chills, worsening/severe pain, nausea, vomiting, which may indicate severe illness. Patient verbalizes understanding and agrees with plan. Please note that this Emergency Department Report was dictated using [employer] technology software, occasionally this can lead to erroneous entry secondary to interpretation by the dictation equipment Rhythm Strip Diag. Results EP Interpretation: yes Rate: 68 Rhythm: NSR, no PVC's, no ectopy Last Vital Signs Date Time Temp Pulse Resp B/P (MAP) Pulse Ox O2 Delivery O2 Flow Rate FiO2 10/27/17 08:44 70 16 138/70 97 Room Air Status: improved Disposition: HOME, SELF-CARE SAIDA TRAMMELL M.D. Oct 27, 2017 08:51
[2017-10-27 08:54] VITALS: BP 94/63
[2017-10-27 10:04] LABS: BASOPHILS % (AUTO) 0.9 % (0.0-2.0); EOSINOPHILS % (AUTO) 3.1 % (0.0-3.0); LYMPHOCYTES % (AUTO) 40.7 % (20.0-45.0); MEAN CORPUSCULAR HEMOGLOBIN 32.1 PG (27.0-31.0); MEAN CORPUSCULAR HGB CONC 31.4 G/DL (32.0-36.0); MEAN CORPUSCULAR VOLUME 102 FL (80-99); MEAN PLATELET VOLUME 9.9 FL (6.5-10.1); MONOCYTES % (AUTO) 7.8 % (1.0-10.0); NEUTROPHILS % (AUTO) 47.5 % (45.0-75.0); PLATELET COUNT 164 K/UL (150-450); RED CELL DISTRIBUTION WIDTH 12.2 % (11.6-14.8); WHITE BLOOD COUNT 6.5 K/UL (4.8-10.8)
[2017-10-27 10:29] LABS: ANION GAP 8 mmol/L (5-15); CALCIUM 8.7 MG/DL (8.5-10.1); CARBON DIOXIDE 25 MMOL/L (21-32); CHLORIDE 106 MMOL/L (98-107); CREATININE 1.5 MG/DL (0.55-1.30); GLOMERULAR FILTRATION RATE 46.5 mL/min (>60); POTASSIUM 3.7 MMOL/L (3.5-5.1); SODIUM 139 MMOL/L (136-145)
[2017-10-27 10:35] LABS: ALANINE AMINOTRANSFERASE 17 U/L (12-78); ALBUMIN/GLOBULIN RATIO 0.8 (1.0-2.7); ASPARTATE AMINO TRANSFERASE 15 U/L (15-37); TOTAL PROTEIN 7.1 G/DL (6.4-8.2)
[2017-10-27 11:05] VITALS: BP 113/69
== END 2017-10-27 11:05 | disposition home or self-care (01) ==
LOC: EDBD 08:48 → EMR 08:50
DX: R41.82 Altered mental status, unspecified (principal); E11.649 Type 2 diabetes mellitus with hypoglycemia without coma; I10 Essential (primary) hypertension; Z79.4 Long term (current) use of insulin
CPT/HCPCS: 36415; 80053; 82962; 85025; 93005; 96374; 99284

== ENCOUNTER 2017-11-01 16:34 | Emergency (ER) | payer OTHER ==
[~2017-11-01] VITALS: Ht 160 cm; Wt 49.9 kg
[2017-11-01] MEDS ORDERED: Sodium Chloride 500ML 500 ML IV ONE (16:37)
--- NOTE | 2017-11-01 17:26 | Emergency Room Report ---
History of Present Illness General Chief Complaint: Altered Level of Consciousness Source: Patient Present Illness HPI Patient was brought in with reports of altered mental status Patient's glucose in the field was found to be low Was given dextrose and has done better more responsive Patient reports that she is insulin-dependent diabetic Reports doing anything different recently as far as change in medications or eating habits Looking at the medical records patient has had multiple visits with hypoglycemia requiring admission At this time further questions regarding change in medicine do not provide any input patient essentially becomes quiet and does not respond to questioning Has a blunted affect Allergies: Coded Allergies: No Known Allergies (Verified , NONE, 04/29/17) Patient History Limited by: medical condition Past Medical History: see triage record Pertinent Family History: unable to obtain Last Menstrual Period: Unk Reviewed Nursing Documentation: PMH: Agreed, PSxH: Agreed Nursing Documentation-PMH Hx Cardiac Problems: Yes - Protein-calorie malnutrition, severe, cocaine abuse , metabolic acidosis Hx Hypertension: Yes Hx Diabetes: Yes Hx Cancer: No Hx Gastrointestinal Problems: Yes - pancreatitis, total bilirubin, elevated Hx Neurological Problems: Yes Hx Cerebrovascular Accident: Yes Hx Seizures: Yes Hx Vertigo: Yes Hx Dizziness: Yes Hx Headaches: Yes Hx Weakness: Yes Hx Fatigue: Yes Hx Neurologic Surgery: No Review of Systems All Other Systems: negative except mentioned in HPI Physical Exam Vital Signs Date Time Temp Pulse Resp B/P (MAP) Pulse Ox O2 Delivery O2 Flow Rate FiO2 11/01/17 16:32 97.9 84 16 182/83 99 Room Air Sp02 EP Interpretation: reviewed, normal General Appearance: no apparent distress Head: normocephalic, atraumatic Eyes: bilateral eye PERRL, bilateral eye EOMI ENT: hearing grossly normal, normal pharynx, TMs + canals normal, uvula midline , dry mucus membranes Neck: full range of motion, supple, no meningismus, no bony tend Respiratory: lungs clear, normal breath sounds, no rhonchi, no respiratory distress, no retraction, no accessory muscle use Cardiovascular #1: normal peripheral pulses, regular rate, rhythm, no edema, no gallop, no JVD, no murmur Gastrointestinal: normal bowel sounds, non tender, soft, no mass, no organomegaly, non-distended, no guarding, no hernia, no pulsatile mass, no rebound Genitourinary: no CVA tenderness Musculoskeletal: normal inspection Neurologic: oriented x3, responsive, 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, motor strength/ tone normal, sensory intact Psychiatric: mood/affect normal Skin: normal color, no rash, warm/dry, palpation normal Lymphatic: normal inspection, no adenopathy Medical Decision Making Diagnostic Impression: Primary Impression: Hypoglycemia Additional Impression: Altered level of consciousness ER Course Patient is a fairly complex patient with multiple differential to consideration including but not limited to cardiac cardiopulmonary, intracranial, infectious, metabolic and vascular emergencies Patient's glucose is found to be low Patient was replaced with her glucose orally Repeat Accu-Cheks have improved Patient's baseline blood work are appropriate Patient has had multiple emergency room visits for hypoglycemia there is consideration for social and medical disturbances At this time patient required inpatient care secondary to insurance purposes patient was transferred Labs Test 11/01/17 18:00 White Blood Count 9.9 K/UL (4.8-10.8) Red Blood Count 3.16 M/UL (4.20-5.40) Hemoglobin 10.1 G/DL (12.0-16.0) Hematocrit 31.1 % (37.0-47.0) Mean Corpuscular Volume 98 FL (80-99) Mean Corpuscular Hemoglobin 31.9 PG (27.0-31.0) Mean Corpuscular Hemoglobin Concent 32.4 G/DL (32.0-36.0) Red Cell Distribution Width 11.6 % (11.6-14.8) Platelet Count 155 K/UL (150-450) Mean Platelet Volume 8.1 FL (6.5-10.1) Neutrophils (%) (Auto) 75.6 % (45.0-75.0) Lymphocytes (%) (Auto) 16.5 % (20.0-45.0) Monocytes (%) (Auto) 6.3 % (1.0-10.0) Eosinophils (%) (Auto) 0.8 % (0.0-3.0) Basophils (%) (Auto) 0.8 % (0.0-2.0) Sodium Level 145 MMOL/L (136-145) Potassium Level 4.3 MMOL/L (3.5-5.1) Chloride Level 110 MMOL/L (98-107) Carbon Dioxide Level 26 MMOL/L (21-32) Anion Gap 9 mmol/L (5-15) Blood Urea Nitrogen 30 mg/dL (7-18) Creatinine 1.9 MG/DL (0.55-1.30) Estimat Glomerular Filtration Rate 35.5 mL/min (>60) Glucose Level 166 MG/DL (74-106) Calcium Level 8.8 MG/DL (8.5-10.1) Total Bilirubin 0.1 MG/DL (0.2-1.0) Aspartate Amino Transf (AST/SGOT) 18 U/L (15-37) Alanine Aminotransferase (ALT/SGPT) 17 U/L (12-78) Alkaline Phosphatase 108 U/L (46-116) Total Creatine Kinase 84 U/L (26-308) Creatine Kinase MB 1.8 NG/ML (0.0-3.6) Creatine Kinase MB Relative Index 2.1 Troponin I 0.000 ng/mL (0.000-0.056) Total Protein 7.7 G/DL (6.4-8.2) Albumin 3.5 G/DL (3.4-5.0) Globulin 4.2 g/dL Albumin/Globulin Ratio 0.8 (1.0-2.7) Salicylates Level 1.5 ug/mL (2.8-20) Acetaminophen Level < 10 MCG/ML (10-30) Serum Alcohol 8 mg/dL Rhythm Strip Diag. Results EP Interpretation: yes Rate: 67 Rhythm: NSR, no PVC's, no ectopy Chest X-Ray Diagnostic Results Chest X-Ray Diagnostic Results : Chest X-Ray Ordered: Yes # of Views/Limited/Complete: 1 View Indication: Shortness of Breath EP Interpretation: Yes Interpretation: no consolidation, no effusion, no pneumothorax, no acute cardiopulmonary disease Impression: No acute disease Electronically Signed by: Rickie Gardner DO Last Vital Signs Date Time Temp Pulse Resp B/P (MAP) Pulse Ox O2 Delivery O2 Flow Rate FiO2 11/01/17 16:32 97.9 84 16 182/83 99 Room Air Status: improved Disposition: XFER SHT-TRM HOSP Condition: Serious Referrals: [facility],REFERRING (PCP) RICKIE GARDNER D.O. Nov 01, 2017 17:26
[2017-11-01 17:28] VITALS: BP 118/75
[2017-11-01 18:18] LABS: BASOPHILS % (AUTO) 0.8 % (0.0-2.0); EOSINOPHILS % (AUTO) 0.8 % (0.0-3.0); LYMPHOCYTES % (AUTO) 16.5 % (20.0-45.0); MEAN CORPUSCULAR HEMOGLOBIN 31.9 PG (27.0-31.0); MEAN CORPUSCULAR HGB CONC 32.4 G/DL (32.0-36.0); MEAN CORPUSCULAR VOLUME 98 FL (80-99); MEAN PLATELET VOLUME 8.1 FL (6.5-10.1); MONOCYTES % (AUTO) 6.3 % (1.0-10.0); NEUTROPHILS % (AUTO) 75.6 % (45.0-75.0); PLATELET COUNT 155 K/UL (150-450); RED BLOOD COUNT 3.16 M/UL (4.20-5.40); RED CELL DISTRIBUTION WIDTH 11.6 % (11.6-14.8); WHITE BLOOD COUNT 9.9 K/UL (4.8-10.8)
[2017-11-01 18:35] LABS: ANION GAP 9 mmol/L (5-15); CALCIUM 8.8 MG/DL (8.5-10.1); CARBON DIOXIDE 26 MMOL/L (21-32); CHLORIDE 110 MMOL/L (98-107); CREATININE 1.9 MG/DL (0.55-1.30); GLOMERULAR FILTRATION RATE 35.5 mL/min (>60); POTASSIUM 4.3 MMOL/L (3.5-5.1); SODIUM 145 MMOL/L (136-145)
[2017-11-01 18:49] LABS: ALANINE AMINOTRANSFERASE 17 U/L (12-78); ALBUMIN/GLOBULIN RATIO 0.8 (1.0-2.7); ALCOHOL 8 mg/dL; ASPARTATE AMINO TRANSFERASE 18 U/L (15-37); CKMB 1.8 NG/ML (0.0-3.6); TOTAL PROTEIN 7.7 G/DL (6.4-8.2)
[2017-11-01 18:51] LABS: ACETAMINOPHEN < 10 MCG/ML (10-30)
[2017-11-01 19:15] VITALS: BP 94/60
--- NOTE | 2017-11-02 09:54 | Diagnostic Imaging Report ---
Indication: Chest pain Technique: XRAY CHEST 1 V. Comparison: 10/05/17 Findings: The cardiomediastinal silhouette is stable. There are no acute infiltrates. [place] pellets are again seen over the right lateral chest. There is no pleural fluid. Impression: No acute abnormality. .
--- NOTE | 2017-11-06 11:03 | Cardiology Report ---
APPROVED REPORT EKG Measurement Heart [id number] VA [id number] [id number] Normal sinus rhythm Left axis deviation Prolonged QT Abnormal ECG
== END 2017-11-01 19:00 | disposition short-term general hospital (02) ==
LOC: EDBD 16:34 → EMR 16:59
DX: E11.649 Type 2 diabetes mellitus with hypoglycemia without coma (principal); I10 Essential (primary) hypertension; R41.82 Altered mental status, unspecified; Z86.73 Personal history of transient ischemic attack (TIA), and cerebral infarction without residual deficits
CPT/HCPCS: 36415; 71010; 80053; 80329; 82550; 82553; 82962; 84484; 85025; 93005; 99285

== ENCOUNTER 2017-11-23 09:48 | Inpatient (IN) | payer OTHER ==
[~2017-11-23] VITALS: Ht 167.6 cm; Wt 53.2 kg
[2017-11-23] MEDS ORDERED: Metoclopramide 10mg/2ml Inj IVP ONE (10:00)
[2017-11-23] MEDS ORDERED: Tubing IV Cassette IV ONE (10:05)
--- NOTE | 2017-11-23 10:10 | Emergency Room Report ---
History of Present Illness General Chief Complaint: Nausea, Vomiting, and Diarrhea Source: Patient Present Illness HPI Patient presents by paramedics for reports of multiple vomiting and diarrhea episode patient reports that she is sick Patient is a poor historian Has been seen here multiple times for hypoglycemia Patient here vomiting reports that she feels sick Denies any chest pain or shortness of breath Difficult to obtain full history from the patient she essentially stairs out into space Began is dry heaving And this happens on multiple repeated attempts of obtaining history Allergies: Coded Allergies: No Known Allergies (Verified , NONE, 04/29/17) Patient History Limited by: medical condition Past Medical History: see triage record Pertinent Family History: unable to obtain Now: No Reviewed Nursing Documentation: PMH: Agreed, PSxH: Agreed Nursing Documentation-PMH Hx Cardiac Problems: No Hx Hypertension: Yes Hx Pacemaker: No Hx Asthma: No Hx COPD: No Hx Diabetes: Yes Hx Cancer: No Hx Gastrointestinal Problems: Yes - pancreatitis, total bilirubin, elevated Hx Neurological Problems: Yes Hx Cerebrovascular Accident: No Hx Seizures: Yes Hx Vertigo: Yes Hx Dizziness: Yes Hx Headaches: Yes Hx Weakness: Yes Hx Fatigue: Yes Hx Neurologic Surgery: No Review of Systems All Other Systems: limited - Other than the ones mentioned in the history of present illness all others are reviewed however they do stay limited due to the patient's mental status Physical Exam Vital Signs Date Time Temp Pulse Resp B/P (MAP) Pulse Ox O2 Delivery O2 Flow Rate FiO2 11/23/17 09:41 98.2 92 16 168/114 97 Room Air Sp02 EP Interpretation: reviewed, normal General Appearance: mild distress - anxious, actively nauseated vomiting Head: normocephalic, atraumatic Eyes: bilateral eye PERRL, bilateral eye EOMI ENT: hearing grossly normal, TMs + canals normal, uvula midline, other - Poor dentition Neck: full range of motion, supple, no meningismus, no bony tend Respiratory: lungs clear, normal breath sounds, no rhonchi, no respiratory distress, no retraction, no accessory muscle use Cardiovascular #1: normal peripheral pulses, regular rate, rhythm, no edema, no gallop, no JVD, no murmur Gastrointestinal: normal bowel sounds, non tender, soft, no mass, no organomegaly, non-distended, no guarding, no hernia, no pulsatile mass, no rebound Genitourinary: no CVA tenderness Musculoskeletal: normal inspection Neurologic: oriented x3, responsive, service center coordinator III-XII nml as tested, motor strength/ tone normal, sensory intact Psychiatric: mood/affect normal Skin: other - Patient is cachectic, poor skin turgor Lymphatic: normal inspection, no adenopathy Medical Decision Making Diagnostic Impression: Primary Impression: Nausea, vomiting, and diarrhea Additional Impression: Hyperglycemia ER Course Upon arrival patient appeared acutely in distress actively nauseated Soon after the patient has done much better resting comfortably Glucose level is elevated requiring intervention Patient at this time refused further nursing intervention for IV Has a few central line However given the improvement is provided further oral antiemetic Patient does not feel comfortable at home at this time and will be observed for further eval Labs Test 11/23/17 10:15 White Blood Count 13.7 K/UL (4.8-10.8) Red Blood Count 3.97 M/UL (4.20-5.40) Hemoglobin 12.8 G/DL (12.0-16.0) Hematocrit 37.7 % (37.0-47.0) Mean Corpuscular Volume 95 FL (80-99) Mean Corpuscular Hemoglobin 32.2 PG (27.0-31.0) Mean Corpuscular Hemoglobin Concent 33.9 G/DL (32.0-36.0) Red Cell Distribution Width 11.7 % (11.6-14.8) Platelet Count 208 K/UL (150-450) Mean Platelet Volume 10.1 FL (6.5-10.1) Neutrophils (%) (Auto) 79.3 % (45.0-75.0) Lymphocytes (%) (Auto) 13.9 % (20.0-45.0) Monocytes (%) (Auto) 5.4 % (1.0-10.0) Eosinophils (%) (Auto) 0.6 % (0.0-3.0) Basophils (%) (Auto) 0.9 % (0.0-2.0) Sodium Level 134 MMOL/L (136-145) Potassium Level 4.4 MMOL/L (3.5-5.1) Chloride Level 90 MMOL/L (98-107) Carbon Dioxide Level 28 MMOL/L (21-32) Anion Gap 16 mmol/L (5-15) Blood Urea Nitrogen 28 mg/dL (7-18) Creatinine 2.2 MG/DL (0.55-1.30) Estimat Glomerular Filtration Rate 29.9 mL/min (>60) Glucose Level 509 MG/DL (74-106) Calcium Level 9.4 MG/DL (8.5-10.1) Total Bilirubin 0.6 MG/DL (0.2-1.0) Aspartate Amino Transf (AST/SGOT) 22 U/L (15-37) Alanine Aminotransferase (ALT/SGPT) 35 U/L (12-78) Alkaline Phosphatase 377 U/L (46-116) Total Protein 10.4 G/DL (6.4-8.2) Albumin 4.3 G/DL (3.4-5.0) Globulin 6.1 g/dL Albumin/Globulin Ratio 0.7 (1.0-2.7) Lipase 37 U/L (73-393) Rhythm Strip Diag. Results EP Interpretation: yes Rate: 78 Rhythm: NSR, no PVC's, no ectopy Last Vital Signs Date Time Temp Pulse Resp B/P (MAP) Pulse Ox O2 Delivery O2 Flow Rate FiO2 11/23/17 09:41 98.2 92 16 168/114 97 Room Air Status: improved Disposition: ADMITTED INPATIENT Condition: Serious SOPHY GARDNER D.O. Nov 23, 2017 10:10
[2017-11-23 10:32] LABS: BASOPHILS % (AUTO) 0.9 % (0.0-2.0); EOSINOPHILS % (AUTO) 0.6 % (0.0-3.0); HEMATOCRIT 37.7 % (37.0-47.0); HEMOGLOBIN 12.8 G/DL (12.0-16.0); LYMPHOCYTES % (AUTO) 13.9 % (20.0-45.0); MEAN CORPUSCULAR VOLUME 95 FL (80-99); MONOCYTES % (AUTO) 5.4 % (1.0-10.0); NEUTROPHILS % (AUTO) 79.3 % (45.0-75.0); PLATELET COUNT 208 K/UL (150-450); RED BLOOD COUNT 3.97 M/UL (4.20-5.40); RED CELL DISTRIBUTION WIDTH 11.7 % (11.6-14.8); WHITE BLOOD COUNT 13.7 K/UL (4.8-10.8)
[2017-11-23] MEDS ORDERED: UNOBMED (10:44)
[2017-11-23 10:51] LABS: ALANINE AMINOTRANSFERASE 35 U/L (12-78); ALBUMIN 4.3 G/DL (3.4-5.0); ALBUMIN/GLOBULIN RATIO 0.7 (1.0-2.7); ALKALINE PHOSPHATASE 377 U/L (46-116); ANION GAP 16 mmol/L (5-15); ASPARTATE AMINO TRANSFERASE 22 U/L (15-37); BILIRUBIN,TOTAL 0.6 MG/DL (0.2-1.0); BLOOD UREA NITROGEN 28 mg/dL (7-18); CALCIUM 9.4 MG/DL (8.5-10.1); CARBON DIOXIDE 28 MMOL/L (21-32); CHLORIDE 90 MMOL/L (98-107); CREATININE 2.2 MG/DL (0.55-1.30); POTASSIUM 4.4 MMOL/L (3.5-5.1); SODIUM 134 MMOL/L (136-145)
[2017-11-23 12:45] VITALS: BP 137/100
[2017-11-23] MEDS ORDERED: Miralax 17gm pkt ORAL PRN (14:30)
[2017-11-23] MEDS ORDERED: Acetaminophen 650mg/20.3ml ORAL PRN (14:30)
[2017-11-23] MEDS ORDERED: Nitroglycerin Subl 0.4mg tab SL PRN (14:30)
[2017-11-23] MEDS: NovoLOG Insulin Flexpen SUBQ SCH ×2 (16:30→21:00)
[2017-11-23] MEDS: Magnesium Oxide 400mg tab ORAL SCH (17:46)
[2017-11-23] MEDS ORDERED: Levemir Flexpen SUBQ SCH (18:00)
[2017-11-23 21:00] VITALS: BP 143/92
[2017-11-23] MEDS: Heparin 5000 units/ml inj SUBQ SCH (21:00)
[2017-11-23] MEDS ORDERED: Depakote ER 500mg tab ORAL SCH (21:00)
--- NOTE | 2017-11-23 21:01 | History & Physical ---
History and Physical History & Physicial Job ID: [id number] Roge Chaudhary Nov 23, 2017 21:01
[2017-11-23] MEDS ORDERED: Levemir Flexpen SUBQ ONE (23:45)
[2017-11-23] MEDS ORDERED: NovoLOG Insulin Flexpen SUBQ ONE (23:45)
[2017-11-24] VITALS (7 sets, daily range): BP systolic 101–160; BP diastolic 45–113
[2017-11-24] MEDS ORDERED: NovoLOG Insulin Flexpen SUBQ ONE (03:30)
[2017-11-24] MEDS: NovoLOG Insulin Flexpen SUBQ SCH ×9 (06:02→21:00)
--- NOTE | 2017-11-24 07:15 | History and Physical Report ---
DATE OF ADMISSION: 11/23/[address] Paz. REASON FOR ADMISSION: Nausea, vomiting, and diarrhea. IDENTIFICATION DATA: The patient is a pleasant 42-year-old female with past medical history, which is significant for hypertension, diabetes mellitus, pancreatitis history, hypobilirubinemia, and neurological symptoms. At this time, presents with nausea, vomiting, and diarrhea episode. She states that she has been sick multiple times. The patient has been admitted in the past for hyperglycemia. Denies any other symptoms or shortness of breath. Denies any chest pain. Her symptoms began with dry heaving. The patient is also a poor historian. PAST MEDICAL HISTORY: As noted above. PAST SURGICAL HISTORY: None noted. SOCIAL HISTORY: No alcohol, tobacco, or illicit drug use. FAMILY HISTORY: Noncontributory. REVIEW OF SYSTEMS: A 12-point review of systems otherwise negative. PHYSICAL EXAMINATION: VITAL SIGNS: Reviewed. GENERAL: She is in no distress. PULMONARY: Decreased breath sounds. CARDIOVASCULAR: Regular rate. No S3 or S4. ABDOMEN: Soft, nontender, and nondistended. EXTREMITIES: A 1+ edema. LABORATORY AND DIAGNOSTIC DATA: WBC 13.7 and platelet count 208,000. Chemistry reviewed. Glucose of 509. Alkaline phosphatase 277. Total protein 10.4. Albumin of 4.3. ASSESSMENT AND RECOMMENDATIONS: 1. Nondiabetic hyperglycemia. The patient with an elevated blood sugar of 509. Continue to closely monitor. Consult with Dr. Early for further management. further followup. The patient has been refusing care. She has been noncompliant in the past. 2. Hyperproteinemia. We will order SPEP and UPEP. 3. Diabetes mellitus, poorly controlled. 4. Noncompliance history. We recommended compliance as the patient has been admitted multiple times with hyperglycemia. 5. Nausea, vomiting, and diarrhea likely related to poor control of underlying disorders. 6. Hypertension. Currently, the patient is normotensive. 7. Acute kidney injury with creatinine of 2.2, patient's baseline and it has generally been between 0.9 to 1.3 and currently is elevated likely potential dehydration. We will consult Nephrology. 8. Covering for Dr. Paz. I appreciate the ada accommodation consultant care. Roge Chaudhary M.D. DR: Ling JOB#: [id number] CC:
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
[2017-11-24] MEDS: Heparin 5000 units/ml inj SUBQ SCH ×2 (09:00→22:21)
[2017-11-24] MEDS ORDERED: Tums 500mg ORAL SCH (09:00)
[2017-11-24] MEDS: Magnesium Oxide 400mg tab ORAL SCH (09:00)
[2017-11-24] MEDS ORDERED: Levemir Flexpen SUBQ SCH ×2 (09:00→18:00)
[2017-11-24] MEDS ORDERED: Glucagon 1mg Inj SUBQ ONE (12:15)
--- NOTE | 2017-11-24 13:37 | Consultation ---
Consult Note Consult Note asked to eval for elevated BUN and Cr Patient presents by paramedics for reports of multiple vomiting and diarrhea episode patient reports that she is sick Patient is a poor historian Has been seen here multiple times for hypoglycemia Patient here vomiting reports that she feels sick Denies any chest pain or shortness of breath Difficult to obtain full history from the patient she essentially stairs out into space Began is dry heaving And this happens on multiple repeated attempts of obtaining history Hx Hypertension: Yes Hx Diabetes: Yes Hx Gastrointestinal Problems: Yes - pancreatitis, total bilirubin, elevated Hx Neurological Problems: Yes Hx Seizures: Yes Hx Vertigo: Yes Hx Dizziness: Yes Hx Headaches: Yes Hx Weakness: Yes Hx Fatigue: Yes examined data reviewed Assessment/Plan renal failure ? acute , dehydration, ? Underlying CKD due to DM Dm , Hyperglycemia HTN SZ disorders IDDM Plan; Hydrate Urine studies monitor renal parameters avoid nephrotoxics check BP and BS JACKELIN KOEHLER Nov 24, 2017 13:37
--- NOTE | 2017-11-24 14:00 | Consultation ---
DATE OF CONSULTATION: 11/24/2017 NOTE: POOR AUDIO. ENDOCRINOLOGY CONSULTATION CONSULTING PHYSICIAN: Pablo Early M.D. REFERRING PHYSICIAN: Roge Chaudhary M.D. REASON FOR CONSULTATION: I was asked to see this 42-year-old black female referred by Dr. Roge Chaudhary, in Endocrinology consultation for evaluation and management of diabetes mellitus type 2 out of control. PERTINENT HISTORY: The patient has been diabetic for several years, on various regimens _. PAST HISTORY: No other medical or surgical problems, nausea or vomiting. FAMILY HISTORY: Unremarkable. PERSONAL HISTORY: Negative for tobacco abuse. REVIEW OF SYSTEMS: A 14-point review is unremarkable. PHYSICAL EXAMINATION: GENERAL: The patient is in a lot of distress. VITAL SIGNS: Blood pressure 143/102, pulse 106, respiratory rate 22, and temperature 97.5 degrees. HEENT: Unremarkable. NECK: Unremarkable. There is no jugular venous distention. LUNGS: Clear. CARDIOVASCULAR: Heart sounds are regular. ABDOMEN: Soft. Bowel sounds present. EXTREMITIES: No edema. NEUROLOGIC: Cranial nerves II through XII are grossly intact. Reflexes intact, but toes are downgoing to plantar stimulation. ASSESSMENT AND PLAN: Diabetes mellitus type 2, out of control due to_ poor compliance with diabetic regimen. PLANS: The patient was started on Levemir insulin 15 units q.12 hours sc with darell [facility]. Pablo Early M.D. DR: ZUNILDA JOB#: [id number] CC: ALICIA
[2017-11-24] MEDS ORDERED: Nitroglycerin Subl 0.4mg tab SL PRN (14:45)
[2017-11-24 16:31] LABS: APPEARANCE,URINE CLEAR; BILIRUBIN, URINE NEGATIVE (NEGATIVE); COLOR,URINE PALE YELLOW; GLUCOSE, URINE (UA) 4+ (NEGATIVE); KETONES,URINE 2+ (NEGATIVE); LEUKOCYTE ESTERASE ,URINE NEGATIVE (NEGATIVE); NITRITE,URINE NEGATIVE (NEGATIVE); PH,URINE 6.5 (4.5-8.0); PROTEIN,URINE 4+ (NEGATIVE); UROBILINOGEN,URINE NORMAL MG/DL (0.0-1.0)
[2017-11-24 16:56] LABS: HEMATOCRIT 38.3 % (37.0-47.0); HEMOGLOBIN 12.9 G/DL (12.0-16.0); MEAN CORPUSCULAR VOLUME 96 FL (80-99); PLATELET COUNT 269 K/UL (150-450); RED CELL DISTRIBUTION WIDTH 11.6 % (11.6-14.8)
[2017-11-24 17:00] LABS: WHITE BLOOD COUNT 24.3 K/UL (4.8-10.8)
[2017-11-24 17:06] LABS: ALANINE AMINOTRANSFERASE 29 U/L (12-78); ALBUMIN 3.6 G/DL (3.4-5.0); ALBUMIN/GLOBULIN RATIO 0.6 (1.0-2.7); ALKALINE PHOSPHATASE 309 U/L (46-116); ANION GAP 15 mmol/L (5-15); ASPARTATE AMINO TRANSFERASE 27 U/L (15-37); BILIRUBIN,TOTAL 0.2 MG/DL (0.2-1.0); BLOOD UREA NITROGEN 61 mg/dL (7-18); CALCIUM 8.2 MG/DL (8.5-10.1); CARBON DIOXIDE 34 MMOL/L (21-32); CHLORIDE 84 MMOL/L (98-107); CREATININE 3.8 MG/DL (0.55-1.30); POTASSIUM 3.9 MMOL/L (3.5-5.1); SODIUM 133 MMOL/L (136-145)
[2017-11-24] MEDS: LORazepam 1mg tab ORAL PRN (17:29)
[2017-11-24] MEDS ORDERED: Acetaminophen 650mg/20.3ml ORAL PRN (18:30)
--- NOTE | 2017-11-24 19:10 | General Progress Note ---
Assessment/Plan Assessment/Plan ASSESSMENT AND RECOMMENDATIONS: 1. Hyperglycemia due to DM. The patient with an elevated blood sugar of 509. Continue to closely monitor. --> Consult with Dr. Early for further management. BS was >500, nonketotic. The patient has been refusing care. --> She has been noncompliant in the past. 2. CIERA on CKD and Hyperproteinemia. We will order SPEP and UPEP. --> appreciate nephro recs 3. Diabetes mellitus, poorly controlled. 4. Noncompliance history. We recommended compliance as the patient has been admitted multiple times with hyperglycemia. 5. Nausea, vomiting, and diarrhea likely related to poor control of underlying disorders. 6. Hypertension. Currently, the patient is normotensive. 7. Chest pain --> evaluate with caridiology Subjective Constitutional: Denies: no symptoms, chills, diaphoresis, fever, malaise, weakness, other HEENT: Denies: no symptoms, eye pain, blurred vision, tearing, double vision, ear pain, ear discharge, nose pain, nose congestion, throat pain, throat swelling, mouth pain, mouth swelling, other Gastrointestinal/Abdominal: Denies: no symptoms, abdomen distended, abdominal pain, black stools, tarry stools, blood in stool, constipated, diarrhea, difficulty swallowing, nausea, poor appetite, poor fluid intake, rectal bleeding , vomiting, other Genitourinary: Denies: no symptoms, burning, discharge, frequency, flank pain, hematuria, incontinence, pain, urgency, other Neurologic/Psychiatric: Denies: no symptoms, anxiety, depressed, emotional problems, headache, numbness, paresthesia, pre-existing deficit, seizure, tingling, tremors, weakness, other Endocrine: Denies: no symptoms, excessive sweating, flushing, intolerance to cold, intolerance to heat, increased hunger, increased thirst, increased urine, unexplained weight gain, unexplained weight loss, other Hematologic/Lymphatic: Denies: no symptoms, anemia, easy bleeding, easy bruising, other Allergies: Coded Allergies: No Known Allergies (Verified , NONE, 04/29/17) Subjective nad Objective Last 24 Hour Vital Signs Date Time Temp Pulse Resp B/P (MAP) Pulse Ox O2 Delivery O2 Flow Rate FiO2 11/24/17 16:09 166/113 11/24/17 16:00 96.2 99 18 160/113 Nasal Cannula 2.0 11/24/17 16:00 91 11/24/17 13:48 98.8 90 18 133/45 Nasal Cannula 2.0 11/24/17 09:35 97.2 96 20 135/87 97 Nasal Cannula 2.0 11/24/17 07:30 53 23 115/61 95 Room Air 11/24/17 07:15 58 101/78 11/24/17 05:00 105/79 11/24/17 04:00 Room Air 11/24/17 04:00 97.0 97 22 105/79 96 11/23/17 21:00 97.5 106 22 143/92 94 11/23/17 21:00 Room Air Intake and Output 11/23/17 11/24/17 19:00 07:00 Intake Total 120 ml Output Total 350 ml Balance -230 ml Intake Oral 120 ml Emesis 350 ml # Voids 1 # Bowel Movements 1 Laboratory Tests 11/24/17 15:50: Urine Color Pale yellow, Urine Appearance Clear, Urine pH 6.5, Urine Specific [place] 1.015, Urine Protein 4+H, Urine Glucose (UA) 4+H, Urine Ketones 2+H, Urine Occult Blood 3+H, Urine Nitrite Negative, Urine Bilirubin Negative, Urine Urobilinogen Normal, Urine Leukocyte Esterase Negative, Urine RBC 2-4H, Urine WBC 0-2, Urine Squamous Epithelial Cells Few, Urine Bacteria Few, Urine Random Sodium 26, Urine Opiates Screen Negative, Urine Barbiturates Screen Negative, Phencyclidine (PCP) Screen Negative, Urine Amphetamines Screen Negative, Urine Benzodiazepines Screen Negative, Urine Cocaine Screen PositiveH, Urine Marijuana (THC) Screen Negative 11/24/17 16:35: White Blood Count 24.3#*H, Red Blood Count 4.00L, Hemoglobin 12.9, Hematocrit 38.3, Mean Corpuscular Volume 96, Mean Corpuscular Hemoglobin 32.3H, Mean Corpuscular Hemoglobin Concent 33.7, Red Cell Distribution Width 11.6, Platelet Count 269, Mean Platelet Volume 8.6, Neutrophils (%) (Auto) , Lymphocytes (%) ( Auto) , Monocytes (%) (Auto) , Eosinophils (%) (Auto) , Basophils (%) (Auto) , Differential Total Cells Counted 100, Neutrophils % (Manual) 82H, Lymphocytes % (Manual) 12L, Monocytes % (Manual) 4, Eosinophils % (Manual) 0, Basophils % ( Manual) 0, Band Neutrophils 2, Platelet Estimate Adequate, Platelet Morphology Normal, Red Blood Cell Morphology Normal, Prothrombin Time 10.1, Prothromb Time International Ratio 1.0, Activated Partial Thromboplast Time 22L, Sodium Level 133L, Potassium Level 3.9, Chloride Level 84L, Carbon Dioxide Level 34H, Anion Gap 15, Blood Urea Nitrogen 61H, Creatinine 3.8#H, Estimat Glomerular Filtration Rate 15.9, Glucose Level 610#*H, Calcium Level 8.2L, Total Bilirubin 0.2, Aspartate Amino Transf (AST/SGOT) 27, Alanine Aminotransferase (ALT/SGPT) 29, Alkaline Phosphatase 309H, Troponin I 0.002, Total Protein 9.4H, Albumin 3.6 , Globulin 5.8, Albumin/Globulin Ratio 0.6L, Human Chorionic Gonadotropin, Qual Negative 11/24/17 17:10: Phencyclidine (PCP) Screen [Pending], Opiates Screen [Pending], Oxycodone Level [Pending], Blood Methadone Screen [Pending], Blood Propoxyphene Screen [Pending] , Blood Barbiturates Screen [Pending], Amphetamines Screen [Pending], Benzodiazepines Screen [Pending], Blood Cocaine/Metabolite Screen [Pending], Marijuana (THC) Screen [Pending], Blood Drug Screen Comment [Pending] Height (Feet): 5 Height (Inches): 6.00 Weight (Pounds): 110 General Appearance: alert EENT: TMs normal Neck: supple Cardiovascular: regular rhythm Respiratory/Chest: lungs clear Abdomen: soft Extremities: normal range of motion Edema: 1+ Leg (L), 1+ Leg (R) Edema: mild edema Neurologic: alert Skin: warm/dry Rgoe Chaudhary Nov 24, 2017 19:10
[2017-11-24] MEDS: Aspirin Baby 81mg ORAL SCH (19:34)
[2017-11-24] MEDS: Depakote ER 500mg tab ORAL SCH (22:54)
[2017-11-25 00:03] VITALS: BP 140/106
[2017-11-25 04:00] VITALS: BP_SYST 123; BP_SYST 140; BP_DIAS 106; BP_DIAS 80
[2017-11-25] MEDS: NovoLOG Insulin Flexpen SUBQ SCH ×5 (06:30→21:00)
[2017-11-25 08:00] VITALS: BP 139/97
[2017-11-25] MEDS: Levemir Flexpen SUBQ SCH ×2 (10:00→21:00)
[2017-11-25] MEDS: Aspirin Baby 81mg ORAL SCH (10:14)
[2017-11-25] MEDS: Heparin 5000 units/ml inj SUBQ SCH ×2 (10:15→21:16)
[2017-11-25 12:00] VITALS: BP 136/80
--- NOTE | 2017-11-25 14:27 | Pulmonology Progress Note ---
Assessment/Plan Problems: (1) Intractable vomiting (2) HTN (hypertension) (3) CIERA (acute kidney injury) (4) Seizure disorder (5) Gastroparesis due to DM Assessment/Plan npo] IV zofran ID to evaluate leukocytosis renal w/u GI to see/ Subjective ROS Limited/Unobtainable: No Interval Events: still nauseous, can't eat Constitutional: Reports: no symptoms HEENT: Repors: no symptoms Allergies: Coded Allergies: No Known Allergies (Verified , NONE, 04/29/17) Objective Last 24 Hour Vital Signs Date Time Temp Pulse Resp B/P (MAP) Pulse Ox O2 Delivery O2 Flow Rate FiO2 11/25/17 12:00 96.4 89 19 136/80 100 Nasal Cannula 2.0 11/25/17 10:14 86 139/97 11/25/17 08:00 83 11/25/17 08:00 96.6 86 17 139/97 100 Nasal Cannula 22.0 11/25/17 04:00 68 11/25/17 04:00 97.0 49 20 140/106 93 Nasal Cannula 2.0 28 11/25/17 04:00 97.0 49 20 140/106 93 Nasal Cannula 2.0 28 11/25/17 04:00 97.0 80 20 123/80 100 Nasal Cannula 22.0 80 11/25/17 02:43 93 Nasal Cannula 2.0 28 11/25/17 00:03 97.0 49 20 140/106 90 Nasal Cannula 2.0 11/25/17 00:00 Nasal Cannula 2.0 28 11/25/17 00:00 79 11/24/17 22:53 93 129/95 11/24/17 20:12 97.0 93 20 129/95 93 Nasal Cannula 2.0 11/24/17 20:00 89 11/24/17 16:09 166/113 11/24/17 16:00 96.2 99 18 160/113 Nasal Cannula 2.0 11/24/17 16:00 91 Intake and Output 11/24/17 11/25/17 19:00 07:00 Intake Total 920 ml 100 ml Output Total 775 ml 30 ml Balance 145 ml 70 ml Intake Oral 620 ml IV Total 300 ml 100 ml Output Urine Total 300 ml 30 ml Emesis 475 ml # Voids 1 # Bowel Movements 2 General Appearance: cachetic HEENT: normocephalic, anicteric Respiratory/Chest: chest wall non-tender, no respiratory distress Breasts: no masses Cardiovascular: normal peripheral pulses Abdomen: soft, non tender, no organomegaly Genitourinary: normal external genitalia Skin: no rash, no lesions Laboratory Tests 11/24/17 15:50: Urine Color Pale yellow, Urine Appearance Clear, Urine pH 6.5, Urine Specific [place] 1.015, Urine Protein 4+H, Urine Glucose (UA) 4+H, Urine Ketones 2+H, Urine Occult Blood 3+H, Urine Nitrite Negative, Urine Bilirubin Negative, Urine Urobilinogen Normal, Urine Leukocyte Esterase Negative, Urine RBC 2-4H, Urine WBC 0-2, Urine Squamous Epithelial Cells Few, Urine Bacteria Few, Urine Random Sodium 26, Urine Opiates Screen Negative, Urine Barbiturates Screen Negative, Phencyclidine (PCP) Screen Negative, Urine Amphetamines Screen Negative, Urine Benzodiazepines Screen Negative, Urine Cocaine Screen PositiveH, Urine Marijuana (THC) Screen Negative 11/24/17 16:35: White Blood Count 24.3#*H, Red Blood Count 4.00L, Hemoglobin 12.9, Hematocrit 38.3, Mean Corpuscular Volume 96, Mean Corpuscular Hemoglobin 32.3H, Mean Corpuscular Hemoglobin Concent 33.7, Red Cell Distribution Width 11.6, Platelet Count 269, Mean Platelet Volume 8.6, Neutrophils (%) (Auto) , Lymphocytes (%) ( Auto) , Monocytes (%) (Auto) , Eosinophils (%) (Auto) , Basophils (%) (Auto) , Differential Total Cells Counted 100, Neutrophils % (Manual) 82H, Lymphocytes % (Manual) 12L, Monocytes % (Manual) 4, Eosinophils % (Manual) 0, Basophils % ( Manual) 0, Band Neutrophils 2, Platelet Estimate Adequate, Platelet Morphology Normal, Red Blood Cell Morphology Normal, Prothrombin Time 10.1, Prothromb Time International Ratio 1.0, Activated Partial Thromboplast Time 22L, Sodium Level 133L, Potassium Level 3.9, Chloride Level 84L, Carbon Dioxide Level 34H, Anion Gap 15, Blood Urea Nitrogen 61H, Creatinine 3.8#H, Estimat Glomerular Filtration Rate 15.9, Glucose Level 610#*H, Calcium Level 8.2L, Total Bilirubin 0.2, Aspartate Amino Transf (AST/SGOT) 27, Alanine Aminotransferase (ALT/SGPT) 29, Alkaline Phosphatase 309H, Troponin I 0.002, Total Protein 9.4H, Albumin 3.6 , Globulin 5.8, Albumin/Globulin Ratio 0.6L, Human Chorionic Gonadotropin, Qual Negative 11/24/17 17:10: Phencyclidine (PCP) Screen [Pending], Opiates Screen [Pending], Oxycodone Level [Pending], Blood Methadone Screen [Pending], Blood Propoxyphene Screen [Pending] , Blood Barbiturates Screen [Pending], Amphetamines Screen [Pending], Benzodiazepines Screen [Pending], Blood Cocaine/Metabolite Screen [Pending], Marijuana (THC) Screen [Pending], Blood Drug Screen Comment [Pending] Current Medications Medications (Trade) Dose Ordered Sig/Mateo Route PRN Reason Start Time Stop Time Status Last Admin Dose Admin Acetaminophen (Tylenol) 650 mg Q4H PRN ORAL Mild Pain/Temp > 100.5 11/24/17 18:30 12/23/17 14:29 Amlodipine Besylate (Norvasc) 5 mg Q12HR ORAL 11/24/17 21:00 12/24/17 20:59 11/25/17 10:14 Aspirin (ASA) 81 mg DAILY ORAL 11/24/17 19:00 12/24/17 18:59 11/25/17 10:14 Clonidine HCl (Catapres) 0.1 mg EVERY 4 HOURS PRN ORAL bp over 170 syst 11/24/17 17:00 12/24/17 13:44 Dextrose (Dextrose 50%) STAT PRN IV Hypoglycemia 11/25/17 14:30 12/23/17 14:29 Divalproex Sodium (Depakote ER) 1,000 mg QHS ORAL 11/24/17 21:00 12/23/17 20:59 11/24/17 22:54 Heparin Sodium (Porcine) (Heparin 5000 units/ml) 5,000 units EVERY 12 HOURS SUBQ 11/24/17 21:00 12/23/17 20:59 11/25/17 10:15 Insulin Aspart (NovoLOG) BEFORE MEALS AND HS SUBQ 11/24/17 16:30 12/24/17 06:29 11/25/17 12:53 Insulin Detemir (Levemir) 10 units Q12HR SUBQ 11/25/17 10:00 12/25/17 09:59 Lorazepam (Ativan) 1 mg Q8HR PRN ORAL For Anxiety 11/24/17 16:15 12/01/17 16:14 11/24/17 17:29 Nitroglycerin (Ntg) 0.4 mg Q5MIN X 3 DOSES PRN SL chest pain 11/24/17 14:45 12/23/17 14:29 11/24/17 16:09 Ondansetron HCl (Zofran ODT) 4 mg Q6H PRN ORAL Nausea & Vomiting 11/24/17 14:45 12/23/17 14:44 11/25/17 12:53 Pantoprazole (Protonix) 40 mg DAILY ORAL 11/25/17 09:00 12/24/17 08:59 11/25/17 10:14 Polyethylene Glycol (Miralax) 17 gm DAILYPRN PRN ORAL Constipation 11/25/17 14:30 12/23/17 14:29 Sodium Chloride 1,000 ml @ 100 mls/hr Q10H IV 11/24/17 15:30 12/24/17 15:29 11/25/17 11:30 Temazepam (Restoril) 15 mg BEDTIME ORAL 11/24/17 21:00 11/30/17 20:59 11/24/17 22:54 Temazepam (Restoril) 15 mg BEDTIME PRN ORAL Insomnia 11/24/17 21:00 12/01/17 13:44 MILA LAINEZ Nov 25, 2017 14:27
[2017-11-25] MEDS ORDERED: Miralax 17gm pkt ORAL PRN (14:30)
[2017-11-25 14:38] LABS: HEMATOCRIT 34.4 % (37.0-47.0); HEMOGLOBIN 11.4 G/DL (12.0-16.0); MEAN CORPUSCULAR VOLUME 96 FL (80-99); PLATELET COUNT 256 K/UL (150-450); WHITE BLOOD COUNT 19.1 K/UL (4.8-10.8)
[2017-11-25 15:02] LABS: ALANINE AMINOTRANSFERASE 51 U/L (12-78); ALBUMIN 3.1 G/DL (3.4-5.0); ALBUMIN/GLOBULIN RATIO 0.6 (1.0-2.7); ALKALINE PHOSPHATASE 288 U/L (46-116); ANION GAP 11 mmol/L (5-15); ASPARTATE AMINO TRANSFERASE 89 U/L (15-37); BILIRUBIN,TOTAL 0.3 MG/DL (0.2-1.0); BLOOD UREA NITROGEN 49 mg/dL (7-18); CARBON DIOXIDE 30 MMOL/L (21-32); CHLORIDE 87 MMOL/L (98-107); CHOLESTEROL < 50 MG/DL (< 200); CREATINE KINASE 57 U/L (26-308); CREATININE 1.6 MG/DL (0.55-1.30); GAMMA GLUTAMYL TRANSPEPTIDASE 368 U/L (5-85); HDL CHOLESTEROL 5 MG/DL (40-60); PHOSPHORUS 3.6 MG/DL (2.5-4.9); POTASSIUM 3.5 MMOL/L (3.5-5.1); SODIUM 128 MMOL/L (136-145); TRIGLYCERIDES 160 MG/DL (30-150)
--- NOTE | 2017-11-25 15:04 | Nephrology Progress Note ---
Assessment/Plan Problem List: (1) ARF (acute renal failure) (2) Hyperglycemia (3) Cocaine abuse Assessment renal failure ? acute , dehydration, ? Underlying CKD due to DM Dm , Hyperglycemia HTN SZ disorders Encephalopathy IDDM Urine + for Cocaine Plan Plan; today's labs pending Love Hydrate Urine studies monitor renal parameters avoid nephrotoxics check BP and BS Subjective ROS Limited/Unobtainable: No Constitutional: Reports: malaise, weakness Objective Objective Last 24 Hour Vital Signs Date Time Temp Pulse Resp B/P (MAP) Pulse Ox O2 Delivery O2 Flow Rate FiO2 11/25/17 12:00 96.4 89 19 136/80 100 Nasal Cannula 2.0 11/25/17 12:00 87 11/25/17 10:14 86 139/97 11/25/17 08:00 83 11/25/17 08:00 96.6 86 17 139/97 100 Nasal Cannula 22.0 11/25/17 04:00 68 11/25/17 04:00 97.0 49 20 140/106 93 Nasal Cannula 2.0 28 11/25/17 04:00 97.0 49 20 140/106 93 Nasal Cannula 2.0 28 11/25/17 04:00 97.0 80 20 123/80 100 Nasal Cannula 22.0 80 11/25/17 02:43 93 Nasal Cannula 2.0 28 11/25/17 00:03 97.0 49 20 140/106 90 Nasal Cannula 2.0 11/25/17 00:00 Nasal Cannula 2.0 28 11/25/17 00:00 79 11/24/17 22:53 93 129/95 11/24/17 20:12 97.0 93 20 129/95 93 Nasal Cannula 2.0 11/24/17 20:00 89 11/24/17 16:09 166/113 11/24/17 16:00 96.2 99 18 160/113 Nasal Cannula 2.0 11/24/17 16:00 91 Intake and Output 11/24/17 11/25/17 19:00 07:00 Intake Total 920 ml 100 ml Output Total 775 ml 30 ml Balance 145 ml 70 ml Intake Oral 620 ml IV Total 300 ml 100 ml Output Urine Total 300 ml 30 ml Emesis 475 ml # Voids 1 # Bowel Movements 2 Laboratory Tests 11/24/17 15:50: Urine Color Pale yellow, Urine Appearance Clear, Urine pH 6.5, Urine Specific [place] 1.015, Urine Protein 4+H, Urine Glucose (UA) 4+H, Urine Ketones 2+H, Urine Occult Blood 3+H, Urine Nitrite Negative, Urine Bilirubin Negative, Urine Urobilinogen Normal, Urine Leukocyte Esterase Negative, Urine RBC 2-4H, Urine WBC 0-2, Urine Squamous Epithelial Cells Few, Urine Bacteria Few, Urine Random Sodium 26, Urine Opiates Screen Negative, Urine Barbiturates Screen Negative, Phencyclidine (PCP) Screen Negative, Urine Amphetamines Screen Negative, Urine Benzodiazepines Screen Negative, Urine Cocaine Screen PositiveH, Urine Marijuana (THC) Screen Negative 11/24/17 16:35: White Blood Count 24.3#*H, Red Blood Count 4.00L, Hemoglobin 12.9, Hematocrit 38.3, Mean Corpuscular Volume 96, Mean Corpuscular Hemoglobin 32.3H, Mean Corpuscular Hemoglobin Concent 33.7, Red Cell Distribution Width 11.6, Platelet Count 269, Mean Platelet Volume 8.6, Neutrophils (%) (Auto) , Lymphocytes (%) ( Auto) , Monocytes (%) (Auto) , Eosinophils (%) (Auto) , Basophils (%) (Auto) , Differential Total Cells Counted 100, Neutrophils % (Manual) 82H, Lymphocytes % (Manual) 12L, Monocytes % (Manual) 4, Eosinophils % (Manual) 0, Basophils % ( Manual) 0, Band Neutrophils 2, Platelet Estimate Adequate, Platelet Morphology Normal, Red Blood Cell Morphology Normal, Prothrombin Time 10.1, Prothromb Time International Ratio 1.0, Activated Partial Thromboplast Time 22L, Sodium Level 133L, Potassium Level 3.9, Chloride Level 84L, Carbon Dioxide Level 34H, Anion Gap 15, Blood Urea Nitrogen 61H, Creatinine 3.8#H, Estimat Glomerular Filtration Rate 15.9, Glucose Level 610#*H, Calcium Level 8.2L, Total Bilirubin 0.2, Aspartate Amino Transf (AST/SGOT) 27, Alanine Aminotransferase (ALT/SGPT) 29, Alkaline Phosphatase 309H, Troponin I 0.002, Total Protein 9.4H, Albumin 3.6 , Globulin 5.8, Albumin/Globulin Ratio 0.6L, Human Chorionic Gonadotropin, Qual Negative 11/24/17 17:10: Phencyclidine (PCP) Screen [Pending], Opiates Screen [Pending], Oxycodone Level [Pending], Blood Methadone Screen [Pending], Blood Propoxyphene Screen [Pending] , Blood Barbiturates Screen [Pending], Amphetamines Screen [Pending], Benzodiazepines Screen [Pending], Blood Cocaine/Metabolite Screen [Pending], Marijuana (THC) Screen [Pending], Blood Drug Screen Comment [Pending] 11/25/17 13:45: White Blood Count 19.1H, Red Blood Count 3.60L, Hemoglobin 11.4L, Hematocrit 34.4L, Mean Corpuscular Volume 96, Mean Corpuscular Hemoglobin 31.6H, Mean Corpuscular Hemoglobin Concent 33.0, Red Cell Distribution Width 12.0, Platelet Count 256, Mean Platelet Volume 9.1, Neutrophils (%) (Auto) , Lymphocytes (%) ( Auto) , Monocytes (%) (Auto) , Eosinophils (%) (Auto) , Basophils (%) (Auto) , Neutrophils % (Manual) [Pending], Lymphocytes % (Manual) [Pending], Platelet Estimate [Pending], Platelet Morphology [Pending], Sodium Level [Pending], Potassium Level [Pending], Chloride Level [Pending], Carbon Dioxide Level [ Pending], Blood Urea Nitrogen [Pending], Creatinine [Pending], Estimat Glomerular Filtration Rate [Pending], Glucose Level [Pending], Calcium Level [ Pending], Total Bilirubin [Pending], Aspartate Amino Transf (AST/SGOT) [Pending] , Alanine Aminotransferase (ALT/SGPT) [Pending], Alkaline Phosphatase [Pending] , Troponin I [Pending], Total Protein [Pending], Albumin [Pending], Globulin [ Pending], Hemoglobin A1c [Pending], Uric Acid [Pending], Phosphorus Level [ Pending], Magnesium Level [Pending], Gamma Glutamyl Transpeptidase [Pending], Total Creatine Kinase [Pending], C-Reactive Protein, Quantitative [Pending], Pro -B-Type Natriuretic Peptide [Pending], Triglycerides Level [Pending], Cholesterol Level [Pending], LDL Cholesterol [Pending], HDL Cholesterol [Pending ], Cholesterol/HDL Ratio [Pending], Thyroid Stimulating Hormone (TSH) [Pending] , Valproic Acid (Depakene) Level [Pending] Height (Feet): 5 Height (Inches): 6.00 Weight (Pounds): 111 General Appearance: no apparent distress, lethargic Cardiovascular: tachycardia Respiratory/Chest: decreased breath sounds Abdomen: distended JACKELIN KOEHLER Nov 25, 2017 15:04
[2017-11-25] MEDS ORDERED: Piperacillin/Tazobactam 3.375 GM in D5W 110 ML IVPB SCH (15:30)
[2017-11-25 16:00] VITALS: BP 116/71
[2017-11-25] MEDS: Piperacillin/Tazobactam 3.375 GM in D5W 110 ML IVPB SCH ×2 (16:28→22:37)
--- NOTE | 2017-11-25 17:06 | Cardiology Report ---
APPROVED REPORT EKG Measurement Heart [id number] Sinus tachycardia Right atrial enlargement Left anterior fascicular block Nonspecific T wave abnormality Abnormal ECG
[2017-11-25] MEDS: LORazepam 1mg tab ORAL PRN ×2 (18:54→22:37)
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
[2017-11-25 20:01] VITALS: BP 121/88
[2017-11-25 20:03] LABS: APPEARANCE,URINE CLEAR; BILIRUBIN, URINE NEGATIVE (NEGATIVE); COLOR,URINE PALE YELLOW; GLUCOSE, URINE (UA) NEGATIVE (NEGATIVE); KETONES,URINE NEGATIVE (NEGATIVE); LEUKOCYTE ESTERASE ,URINE 2+ (NEGATIVE); NITRITE,URINE NEGATIVE (NEGATIVE); PH,URINE 6.5 (4.5-8.0); PROTEIN,URINE 2+ (NEGATIVE); UROBILINOGEN,URINE NORMAL MG/DL (0.0-1.0)
--- NOTE | 2017-11-25 20:14 | General Progress Note ---
Assessment/Plan Assessment/Plan ASSESSMENT AND RECOMMENDATIONS: 1. Hyperglycemia due to DM. The patient with an elevated blood sugar of 509. Continue to closely monitor. --> Consult with Dr. Early for further management. BS was >500, nonketotic. The patient has been refusing care. --> She has been noncompliant in the past. 2. CIERA on CKD and Hyperproteinemia. We will order SPEP and UPEP. --> appreciate nephro recs 3. Noncompliance history. We recommended compliance as the patient has been admitted multiple times with hyperglycemia. 4. Nausea, vomiting, and diarrhea likely related to poor control of underlying disorders. 5. Hypertension. Currently, the patient is normotensive. 6. Leukocytosis --> Id to eval Subjective Constitutional: Denies: no symptoms, chills, diaphoresis, fever, malaise, weakness, other HEENT: Denies: no symptoms, eye pain, blurred vision, tearing, double vision, ear pain, ear discharge, nose pain, nose congestion, throat pain, throat swelling, mouth pain, mouth swelling, other Cardiovascular: Denies: no symptoms, chest pain, edema, irregular heart rate, lightheadedness, palpitations, syncope, other Respiratory: Denies: no symptoms, cough, orthopnea, shortness of breath, SOB with excertion, SOB at rest, sputum, stridor, wheezing, other Genitourinary: Denies: no symptoms, burning, discharge, frequency, flank pain, hematuria, incontinence, pain, urgency, other Neurologic/Psychiatric: Denies: no symptoms, anxiety, depressed, emotional problems, headache, numbness, paresthesia, pre-existing deficit, seizure, tingling, tremors, weakness, other Endocrine: Denies: no symptoms, excessive sweating, flushing, intolerance to cold, intolerance to heat, increased hunger, increased thirst, increased urine, unexplained weight gain, unexplained weight loss, other Allergies: Coded Allergies: No Known Allergies (Verified , NONE, 04/29/17) Subjective nad Objective Last 24 Hour Vital Signs Date Time Temp Pulse Resp B/P (MAP) Pulse Ox O2 Delivery O2 Flow Rate FiO2 11/25/17 20:01 98.1 95 20 121/88 99 Room Air 11/25/17 16:00 97.9 96 19 116/71 100 Nasal Cannula 2.0 11/25/17 16:00 90 11/25/17 12:00 96.4 89 19 136/80 100 Nasal Cannula 2.0 11/25/17 12:00 87 11/25/17 10:14 86 139/97 11/25/17 08:00 83 11/25/17 08:00 96.6 86 17 139/97 100 Nasal Cannula 22.0 11/25/17 04:00 68 11/25/17 04:00 97.0 49 20 140/106 93 Nasal Cannula 2.0 28 11/25/17 04:00 97.0 49 20 140/106 93 Nasal Cannula 2.0 28 11/25/17 04:00 97.0 80 20 123/80 100 Nasal Cannula 22.0 80 11/25/17 02:43 93 Nasal Cannula 2.0 28 11/25/17 00:03 97.0 49 20 140/106 90 Nasal Cannula 2.0 11/25/17 00:00 Nasal Cannula 2.0 28 11/25/17 00:00 79 11/24/17 22:53 93 129/95 Intake and Output 11/24/17 11/25/17 19:00 07:00 Intake Total 920 ml 200 ml Output Total 775 ml 30 ml Balance 145 ml 170 ml Intake Oral 620 ml IV Total 300 ml 200 ml Output Urine Total 300 ml 30 ml Emesis 475 ml # Voids 1 # Bowel Movements 2 Laboratory Tests 11/25/17 13:45: White Blood Count 19.1H, Red Blood Count 3.60L, Hemoglobin 11.4L, Hematocrit 34.4L, Mean Corpuscular Volume 96, Mean Corpuscular Hemoglobin 31.6H, Mean Corpuscular Hemoglobin Concent 33.0, Red Cell Distribution Width 12.0, Platelet Count 256, Mean Platelet Volume 9.1, Neutrophils (%) (Auto) , Lymphocytes (%) ( Auto) , Monocytes (%) (Auto) , Eosinophils (%) (Auto) , Basophils (%) (Auto) , Differential Total Cells Counted 100, Neutrophils % (Manual) 67, Lymphocytes % ( Manual) 29, Monocytes % (Manual) 2, Eosinophils % (Manual) 1, Basophils % ( Manual) 1, Band Neutrophils 0, Platelet Estimate Adequate, Platelet Morphology Normal, Sodium Level 128L, Potassium Level 3.5, Chloride Level 87L, Carbon Dioxide Level 30, Anion Gap 11, Blood Urea Nitrogen 49H, Creatinine 1.6#H, Estimat Glomerular Filtration Rate 43.3, Glucose Level 113#H, Hemoglobin A1c 11.7H, Uric Acid 8.5H, Calcium Level 7.0L, Phosphorus Level 3.6, Magnesium Level 1.8, Total Bilirubin 0.3, Gamma Glutamyl Transpeptidase 368H, Aspartate Amino Transf (AST/SGOT) 89H, Alanine Aminotransferase (ALT/SGPT) 51, Alkaline Phosphatase 288H, Total Creatine Kinase 57, C-Reactive Protein, Quantitative < 0.4, Pro-B-Type Natriuretic Peptide 300H, Total Protein 8.4H, Albumin 3.1L, Globulin 5.3, Albumin/Globulin Ratio 0.6L, Triglycerides Level 160H, Cholesterol Level < 50, LDL Cholesterol 98, HDL Cholesterol 5L, Cholesterol/HDL Ratio 10.0H, Thyroid Stimulating Hormone (TSH) 0.458 11/25/17 14:45: Urine Color [Pending], Urine Appearance [Pending], Urine pH [Pending], Urine Specific [place] [Pending], Urine Protein [Pending], Urine Glucose (UA) [Pending ], Urine Ketones [Pending], Urine Occult Blood [Pending], Urine Nitrite [Pending ], Urine Bilirubin [Pending], Urine Urobilinogen [Pending], Urine Leukocyte Esterase [Pending], Urine RBC [Pending], Urine WBC [Pending], Urine Squamous Epithelial Cells [Pending], Urine Bacteria [Pending], Urine Eosinophils [Pending ], Urine Osmolality [Pending], Urine Random Sodium [Pending] 11/25/17 16:00: Osmolality 288L, Troponin I 0.000, Free Thyroxine 1.07, Free Triiodothyronine 1.9L, Cortisol [Pending], Valproic Acid (Depakene) Level 52 Height (Feet): 5 Height (Inches): 6.00 Weight (Pounds): 111 General Appearance: alert EENT: TMs normal Neck: supple Cardiovascular: regular rhythm Respiratory/Chest: normal breath sounds Abdomen: no organomegaly Extremities: normal range of motion Roge Chaudhary Nov 25, 2017 20:14
[2017-11-25] MEDS: Depakote ER 500mg tab ORAL SCH (21:13)
[2017-11-26 00:05] VITALS: BP 145/97
[2017-11-26 04:17] VITALS: BP 120/81
[2017-11-26] MEDS: NovoLOG Insulin Flexpen SUBQ SCH ×4 (05:45→21:00)
[2017-11-26] MEDS: Heparin 5000 units/ml inj SUBQ SCH ×2 (09:00→21:00)
[2017-11-26] MEDS: Levemir Flexpen SUBQ SCH ×2 (09:00→21:00)
[2017-11-26] MEDS: Piperacillin/Tazobactam 3.375 GM in D5W 110 ML IVPB SCH ×2 (09:30→17:10)
[2017-11-26] MEDS: Aspirin Baby 81mg ORAL SCH (09:31)
[2017-11-26] MEDS ORDERED: Lidocaine 1% Plain 30 ml INJ PRN (10:45)
[2017-11-26] MEDS ORDERED: Nitroglycerin Subl 0.4mg tab SL PRN (10:45)
[2017-11-26] MEDS ORDERED: Heparin 2000 units/Ns 1000ml IV PRN (10:45)
[2017-11-26] MEDS ORDERED: Miralax 17gm pkt ORAL PRN (11:00)
[2017-11-26] MEDS ORDERED: Acetaminophen 650mg/20.3ml ORAL PRN (11:00)
[2017-11-26] MEDS ORDERED: LORazepam 1mg tab ORAL PRN (11:00)
--- NOTE | 2017-11-26 11:00 | GI Initial Consult Note ---
History of Present Illness General Date patient seen: Nov 26, 2017 Time patient seen: 10:51 Reason for Hospitalization: Nausea, Vomiting, and Diarrhea Referring physician: NICK PATE Reason for Consultation: N/V/D Present Illness HPI Patient presents by paramedics for reports of multiple vomiting and diarrhea episode patient reports that she is sick Patient is a poor historian Has been seen here multiple times for hypoglycemia Patient here vomiting reports that she feels sick Denies any chest pain or shortness of breath Difficult to obtain full history from the patient she essentially stairs out into space 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 GI for N/V/D. HPI as noted above. ROS limited, poor historian. Pt seen on floor, awake A&O NAD. Patient had recent EGD performed here at [facility] in January 2017 which showed esophagitis. She presents today with reports today with N/V/D. CT AP shows esophageal wall thickening. Lab evaluation shows leukocytosis, anemia, abnormal LFTs, elevated HgA1C and utox positive for cocaine. Home Meds Active Scripts Insulin Detemir (LEVEMIR FLEXPEN) 100 Unit/1 Ml Insuln.pen, 8 UNIT SUBQ EVERY 12 HOURS, #300 UNITS 0 Refills Prov:MILA LAINEZ 10/07/17 Reported Medications Unable to Obtain Medications (UNABLE TO OBTAIN MEDS) 1 Ea Ea 11/23/17 Unable to Obtain Medications (UNABLE TO OBTAIN MEDS) 1 Ea Ea 09/04/17 Insulin Aspart (Novolog Flexpen) 100 Unit/1 Ml Insuln.pen, 10 SUBQ 3x a day before meal 05/06/17 Insulin Detemir (LEVEMIR FLEXPEN) 100 Unit/1 Ml Insuln.pen, 15 SUBQ Q12HR, #300 UNITS 0 Refills 05/06/17 [insulin] No Conflict Check 05/02/17 Temazepam (TEMAZEPAM*) 15 Mg Capsule, 15 MG ORAL BEDTIME, #30 CAP 0 Refills 04/24/17 Ondansetron* (ZOFRAN*) 4 Mg/2 Ml Vial, 4 MG IVP Q6H Y for Nausea & Vomiting, VIAL 04/24/17 Magnesium Oxide (Magnesium Oxide) 400 Mg Tablet, 400 MG ORAL TID, #30 TAB 0 Refills 04/24/17 Heparin Sodium,Porcine/Ns/Pf (Heparin) 2,000 Unit/1000 Ml Iv.soln, 5000 UNIT SUBQ EVERY 12 HOURS 04/24/17 Clonidine HCl (Clonidine HCl) 0.1 Mg Tablet, 0.1 MG PO EVERY 4 HOURS, TAB 04/18/17 Amlodipine Besylate (Norvasc) 5 Mg Tablet, 5 MG ORAL Q12HR, TAB 04/18/17 Temazepam* (RESTORIL*) 15 Mg Capsule, 15 MG ORAL BEDTIME Y for Insomnia, CAP 04/18/17 Ranitidine Hcl* (ZANTAC*) 150 Mg Tablet, 150 MG ORAL DAILY, #30 TAB 0 Refills 04/18/17 Polyethylene Glycol 3350* (MIRALAX*) 17 Gm Powd.pack, 17 GM ORAL HS for Constipation, PACKET 04/18/17 Pantoprazole* (PROTONIX*) 40 Mg Tablet.dr, 40 MG ORAL DAILY, TAB 04/18/17 Nitroglycerin (NITROGLYCERIN) 0.4 Mg Tab.subl, 0.4 MG SL, TAB 04/18/17 Insulin Detemir (LEVEMIR) 100 Unit/1 Ml Vial, 8 SUBQ BID, VIAL 04/18/17 Insulin Aspart* (NOVOLOG*) 100 Unit/1 Ml Insuln.pen, 0 SUBQ BEFORE MEALS AND HS , #1 EA 0 Refills 04/18/17 Insulin Aspart* (NOVOLOG*) 100 Unit/1 Ml Insuln.pen, 4 SUBQ, #1 EA 0 Refills 04/18/17 Divalproex Sodium* (DEPAKOTE ER*) 500 Mg Tab.er.24h, 1000 MG ORAL QHS, TAB 04/18/17 Calcium Carbonate (CALCIUM CARBONATE) 500 Mg Tablet, 500 MG PO DAILY, TAB 04/18/17 Al Hydroxide/mg Hydroxide (Mag-Al Plus Suspension) 30 Ml Oral.susp, 30 ML ORAL EVERY 6 HOURS, ML 04/18/17 Acetaminophen (Acetaminophen) 650 Mg/20.3 Ml Solution, 650 MG ORAL EVERY 4 HOURS , ML 0 Refills 04/18/17 Pantoprazole* (PROTONIX*) 40 Mg Tablet.dr, 40 MG ORAL DAILY, TAB 02/13/17 Ranitidine Hcl* (ZANTAC*) 150 Mg Tablet, 150 MG ORAL TWICE A DAY, TAB 02/13/17 Med list reviewed/reconciled: Yes Allergies: Coded Allergies: No Known Allergies (Verified , NONE, 04/29/17) Patient History Limited by: medical condition History Provided By: Medical Record PMH Narrative Limited by: medical condition Past Medical History: see triage record Pertinent Family History: unable to obtain Now: No Reviewed Nursing Documentation: PMH: Agreed, PSxH: Agreed Nursing Documentation-PMH Hx Cardiac Problems: No Hx Hypertension: Yes Hx Pacemaker: No Hx Asthma: No Hx COPD: No Hx Diabetes: Yes Hx Cancer: No Hx Gastrointestinal Problems: Yes - pancreatitis, total bilirubin, elevated Hx Neurological Problems: Yes Hx Cerebrovascular Accident: No Hx Seizures: Yes Hx Vertigo: Yes Hx Dizziness: Yes Hx Headaches: Yes Hx Weakness: Yes Hx Fatigue: Yes Hx Neurologic Surgery: No Social History: Reports: drug use - cocaine Review of Systems All Other Systems: negative except mentioned in HPI Physical Exam Vital Signs Date Time Temp Pulse Resp B/P (MAP) Pulse Ox O2 Delivery O2 Flow Rate FiO2 11/23/17 09:41 98.2 92 16 168/114 97 Room Air 11/24/17 09:35 2.0 11/25/17 00:00 28 Sp02 EP Interpretation: reviewed, normal Labs Laboratory Tests Test 11/25/17 13:45 11/25/17 14:45 11/25/17 16:00 11/26/17 04:00 White Blood Count 19.1 K/UL (4.8-10.8) H Red Blood Count 3.60 M/UL (4.20-5.40) L Hemoglobin 11.4 G/DL (12.0-16.0) L Hematocrit 34.4 % (37.0-47.0) L Mean Corpuscular Volume 96 FL (80-99) Mean Corpuscular Hemoglobin 31.6 PG (27.0-31.0) H Mean Corpuscular Hemoglobin Concent 33.0 G/DL (32.0-36.0) Red Cell Distribution Width 12.0 % (11.6-14.8) Platelet Count 256 K/UL (150-450) Mean Platelet Volume 9.1 FL (6.5-10.1) Neutrophils (%) (Auto) % (45.0-75.0) Lymphocytes (%) (Auto) % (20.0-45.0) Monocytes (%) (Auto) % (1.0-10.0) Eosinophils (%) (Auto) % (0.0-3.0) Basophils (%) (Auto) % (0.0-2.0) Differential Total Cells Counted 100 Neutrophils % (Manual) 67 % (45-75) Lymphocytes % (Manual) 29 % (20-45) Monocytes % (Manual) 2 % (1-10) Eosinophils % (Manual) 1 % (0-3) Basophils % (Manual) 1 % (0-2) Band Neutrophils 0 % (0-8) Platelet Estimate Adequate Platelet Morphology Normal Sodium Level 128 MMOL/L (136-145) L Potassium Level 3.5 MMOL/L (3.5-5.1) Chloride Level 87 MMOL/L (98-107) L Carbon Dioxide Level 30 MMOL/L (21-32) Anion Gap 11 mmol/L (5-15) Blood Urea Nitrogen 49 mg/dL (7-18) H Creatinine 1.6 MG/DL (0.55-1.30) #H Estimat Glomerular Filtration Rate 43.3 mL/min (>60) Glucose Level 113 MG/DL (74-106) #H Hemoglobin A1c 11.7 % (4.3-6.0) H Uric Acid 8.5 MG/DL (2.6-7.2) H Calcium Level 7.0 MG/DL (8.5-10.1) L Phosphorus Level 3.6 MG/DL (2.5-4.9) Magnesium Level 1.8 MG/DL (1.8-2.4) Total Bilirubin 0.3 MG/DL (0.2-1.0) Gamma Glutamyl Transpeptidase 368 U/L (5-85) H Aspartate Amino Transf (AST/SGOT) 89 U/L (15-37) H Alanine Aminotransferase (ALT/SGPT) 51 U/L (12-78) Alkaline Phosphatase 288 U/L (46-116) H Total Creatine Kinase 57 U/L (26-308) C-Reactive Protein, Quantitative < 0.4 mg/dL (0.00-0.90) Pro-B-Type Natriuretic Peptide 300 pg/mL (0-125) H Total Protein 8.4 G/DL (6.4-8.2) H Albumin 3.1 G/DL (3.4-5.0) L Globulin 5.3 g/dL Albumin/Globulin Ratio 0.6 (1.0-2.7) L Triglycerides Level 160 MG/DL (30-150) H Cholesterol Level < 50 MG/DL (< 200) LDL Cholesterol 98 mg/dL (<100) HDL Cholesterol 5 MG/DL (40-60) L Cholesterol/HDL Ratio 10.0 (3.3-4.4) H Thyroid Stimulating Hormone (TSH) 0.458 uiU/mL (0.358-3.740) Urine Color Pale yellow Urine Appearance Clear Urine pH 6.5 (4.5-8.0) Urine Specific [place] 1.015 (1.005-1.035) Urine Protein 2+ (NEGATIVE) H Urine Glucose (UA) Negative (NEGATIVE) Urine Ketones Negative (NEGATIVE) Urine Occult Blood 4+ (NEGATIVE) H Urine Nitrite Negative (NEGATIVE) Urine Bilirubin Negative (NEGATIVE) Urine Urobilinogen Normal MG/DL (0.0-1.0) Urine Leukocyte Esterase 2+ (NEGATIVE) H Urine RBC 5-10 /HPF (0 - 2) H Urine WBC 2-4 /HPF (0 - 2) Urine Squamous Epithelial Cells Occasional /LPF Urine Bacteria None /HPF (NONE) Urine Eosinophils None seen None seen Urine Osmolality 362 mOsm/kg (429-449) L Urine Random Sodium 35 MEQ/L (20-110) Osmolality 288 mOsm/kg (297-317) L Troponin I 0.000 ng/mL (0.000-0.056) Free Thyroxine 1.07 NG/DL (0.76-1.46) Free Triiodothyronine 1.9 pg/mL (2.3-4.2) L Cortisol Pending Valproic Acid (Depakene) Level 52 MCG/ML (50-100) General Appearance: well appearing, no apparent distress, alert, thin Head: normocephalic EENT: PERRL/EOMI, normal ENT inspection Neck: supple Respiratory: normal breath sounds, no respiratory distress Cardiovascular: normal rate Gastrointestinal: normal inspection, non tender, soft, normal bowel sounds, non -distended Rectal: deferred Genitourinary: no CVA tenderness Musculoskeletal: normal inspection, back normal Neurologic: normal inspection, alert, responsive Skin: normal inspection, normal color, no rash, warm/dry, palpation normal, well hydrated Lymphatic: normal inspection, no adenopathy Current Medications Current Medications Medications (Trade) Dose Ordered Sig/Mateo Route PRN Reason Start Time Stop Time Status Last Admin Dose Admin Acetaminophen (Tylenol) 650 mg Q4H PRN ORAL Mild Pain/Temp > 100.5 11/26/17 11:00 12/23/17 10:59 Amlodipine Besylate (Norvasc) 5 mg Q12HR ORAL 11/26/17 21:00 12/24/17 20:59 Aspirin (ASA) 81 mg DAILY ORAL 11/27/17 09:00 12/24/17 18:59 Clonidine HCl (Catapres) 0.1 mg Q4H PRN ORAL bp over 170 syst 11/26/17 11:00 12/26/17 10:59 Dextrose (Dextrose 50%) STAT PRN IV Hypoglycemia 11/26/17 11:00 12/23/17 10:59 Divalproex Sodium (Depakote ER) 1,000 mg QHS ORAL 11/26/17 21:00 12/23/17 20:59 Heparin Sodium (Porcine) (Heparin 5000 units/ml) 5,000 units EVERY 12 HOURS SUBQ 11/26/17 21:00 12/23/17 20:59 Heparin Sodium/ Sodium Chloride (Heparin 2000 units/Ns 1000ml premix) 2,000 unit ONCE ONCE IV 11/26/17 10:45 11/26/17 10:46 UNV Insulin Aspart (NovoLOG) BEFORE MEALS AND HS SUBQ 11/26/17 11:30 12/24/17 06:29 Insulin Detemir (Levemir) 10 units Q12HR SUBQ 11/26/17 21:00 12/25/17 09:59 Lidocaine HCl (Xylocaine 1% 30ml) 30 ml ONCE ONCE INJ 11/26/17 10:45 11/26/17 10:46 UNV Lorazepam (Ativan) 1 mg Q8H PRN ORAL For Anxiety 11/26/17 11:00 12/03/17 10:59 Nitroglycerin (Ntg) 0.4 mg Q5MIN X 3 DOSES PRN SL chest pain 11/26/17 10:45 12/23/17 14:29 Ondansetron HCl (Zofran) 4 mg Q6H PRN IVP Nausea & Vomiting 11/26/17 11:00 12/25/17 10:59 Pantoprazole (Protonix) 40 mg DAILY ORAL 1/4/18 09:00 12/24/17 08:59 Piperacillin Sod/ Tazobactam Sod 3.375 gm/Dextrose 110 ml @ 27.5 mls/hr EVERY 12 HOURS IVPB 11/26/17 21:00 12/03/17 20:59 Polyethylene Glycol (Miralax) 17 gm DAILYPRN PRN ORAL Constipation 11/26/17 11:00 12/23/17 10:59 Sodium Chloride 1,000 ml @ 100 mls/hr Q10H IV 11/26/17 10:45 12/26/17 10:29 Temazepam (Restoril) 15 mg HSPRN PRN ORAL Insomnia 11/26/17 21:00 12/03/17 20:59 GI: Plan Problems: (1) Nausea, vomiting, and diarrhea (2) Intractable vomiting (3) Leukocytosis (4) Esophagitis (5) Anemia (6) Diarrhea (7) Gastroparesis due to DM (8) Non compliance with medical treatment (9) Severe malnutrition (10) Cocaine abuse Plan defer GI procedures given recent EGD in january 2017 >> esophagitis zofran prn, reglan for persistent vomiting adv to ADA diet DM mgmt ppi daily abx monitor H&H, prn transfusions fu labs Discussed with Dr. Vickers. Thank you for this patient referral, we will follow. Muriel Serra N.P. Nov 26, 2017 11:00
--- NOTE | 2017-11-26 11:57 | Consultation ---
History of Present Illness General Date patient seen: Nov 26, 2017 Time patient seen: 11:45 Chief Complaint: Nausea, Vomiting, and Diarrhea Referring physician: NICK PATE Reason for Consultation: N/V/D Present Illness HPI 42 y/o F with hx of HTN, DM2, pancreaitis, esophagitis (EGD 01/2017) seizure disorder presents to ED on 11/23 with n/v/d. Found to be on DKA and CIERA. CT abd showed esophageal wall thickening,. Utox + cocaine. Denies SOB, CP afebrile, leukocytosis up to 25, now decreased. Allergies: Coded Allergies: No Known Allergies (Verified , NONE, 04/29/17) Medication History Scheduled Acetaminophen (Acetaminophen), 650 MG ORAL EVERY 4 HOURS, (Reported) Al Hydroxide/mg Hydroxide (Mag-Al Plus Suspension), 30 ML ORAL EVERY 6 HOURS, ( Reported) Amlodipine Besylate (Norvasc), 5 MG ORAL Q12HR, (Reported) Calcium Carbonate (Calcium Carbonate), 500 MG PO DAILY, (Reported) Clonidine HCl (Clonidine HCl), 0.1 MG PO EVERY 4 HOURS, (Reported) Divalproex Sodium* (Depakote Er*), 1,000 MG ORAL QHS, (Reported) Heparin Sodium,Porcine/Ns/Pf (Heparin), 5,000 UNIT SUBQ EVERY 12 HOURS, ( Reported) Insulin Aspart (Novolog Flexpen), 10 SUBQ 3x a day before meal, (Reported) Insulin Aspart* (Novolog*), 0 SUBQ BEFORE MEALS AND HS, (Reported) Insulin Detemir (Levemir), 8 SUBQ BID, (Reported) Insulin Detemir (Levemir Flexpen), 15 SUBQ Q12HR, (Reported) Insulin Detemir (Levemir Flexpen), 8 UNIT SUBQ EVERY 12 HOURS Magnesium Oxide (Magnesium Oxide), 400 MG ORAL TID, (Reported) Pantoprazole* (Protonix*), 40 MG ORAL DAILY, (Reported) Pantoprazole* (Protonix*), 40 MG ORAL DAILY, (Reported) Polyethylene Glycol 3350* (Miralax*), 17 GM ORAL HS, (Reported) Ranitidine Hcl* (Zantac*), 150 MG ORAL TWICE A DAY, (Reported) Ranitidine Hcl* (Zantac*), 150 MG ORAL DAILY, (Reported) Temazepam (Temazepam*), 15 MG ORAL BEDTIME, (Reported) Scheduled PRN Ondansetron* (Zofran*), 4 MG IVP Q6H PRN for Nausea & Vomiting, (Reported) Temazepam* (Restoril*), 15 MG ORAL BEDTIME PRN for Insomnia, (Reported) Miscellaneous Medications Insulin Aspart* (Novolog*), 4 SUBQ, (Reported) Nitroglycerin (Nitroglycerin), 0.4 MG SL, (Reported) Unable to Obtain Medications (Unable To Obtain Meds), (Reported) Unable to Obtain Medications (Unable To Obtain Meds), (Reported) [insulin], (Reported) Patient History Healthcare decision maker Resuscitation status Full Code Advanced Directive on File Patient History Narrative PHx: as above Shx: No alcohol, tobacco, or illicit drug use. Fhx: non contributory Review of Systems ROS Narrative As per HPI, otherwise negative Physical Exam Physical Exam Narrative GENERAL: She is in no distress.chronically ill HEENT: no tongue thrush, difficult to examine pharynx PULMONARY: Decreased breath sounds. CARDIOVASCULAR: Regular rate. No S3 or S4. ABDOMEN: Soft, nontender, and nondistended. EXTREMITIES: A 1+ edema. Last 24 Hour Vital Signs Date Time Temp Pulse Resp B/P (MAP) Pulse Ox O2 Delivery O2 Flow Rate FiO2 11/26/17 09:31 94 120/81 11/26/17 07:05 Room Air 11/26/17 07:05 93 Room Air 11/26/17 04:17 98.4 94 20 120/81 100 Room Air 11/26/17 00:05 98.1 94 20 145/97 99 Room Air 11/25/17 21:25 Nasal Cannula 2.0 28 11/25/17 21:25 93 Nasal Cannula 2.0 28 11/25/17 21:13 95 121/88 11/25/17 20:01 98.1 95 20 121/88 99 Room Air 11/25/17 16:00 97.9 96 19 116/71 100 Nasal Cannula 2.0 11/25/17 16:00 90 11/25/17 12:00 96.4 89 19 136/80 100 Nasal Cannula 2.0 11/25/17 12:00 87 Intake and Output 11/25/17 11/26/17 19:00 07:00 Intake Total 1125.0 ml 510.0 ml Output Total 1350 ml 1300 ml Balance -225.0 ml -790.0 ml Intake Oral 120 ml IV Total 1005.0 ml 510.0 ml Output Urine Total 1350 ml 1300 ml Laboratory Tests Test 11/25/17 13:45 11/25/17 14:45 11/25/17 16:00 11/26/17 04:00 White Blood Count 19.1 K/UL (4.8-10.8) H Red Blood Count 3.60 M/UL (4.20-5.40) L Hemoglobin 11.4 G/DL (12.0-16.0) L Hematocrit 34.4 % (37.0-47.0) L Mean Corpuscular Volume 96 FL (80-99) Mean Corpuscular Hemoglobin 31.6 PG (27.0-31.0) H Mean Corpuscular Hemoglobin Concent 33.0 G/DL (32.0-36.0) Red Cell Distribution Width 12.0 % (11.6-14.8) Platelet Count 256 K/UL (150-450) Mean Platelet Volume 9.1 FL (6.5-10.1) Neutrophils (%) (Auto) % (45.0-75.0) Lymphocytes (%) (Auto) % (20.0-45.0) Monocytes (%) (Auto) % (1.0-10.0) Eosinophils (%) (Auto) % (0.0-3.0) Basophils (%) (Auto) % (0.0-2.0) Differential Total Cells Counted 100 Neutrophils % (Manual) 67 % (45-75) Lymphocytes % (Manual) 29 % (20-45) Monocytes % (Manual) 2 % (1-10) Eosinophils % (Manual) 1 % (0-3) Basophils % (Manual) 1 % (0-2) Band Neutrophils 0 % (0-8) Platelet Estimate Adequate Platelet Morphology Normal Sodium Level 128 MMOL/L (136-145) L Potassium Level 3.5 MMOL/L (3.5-5.1) Chloride Level 87 MMOL/L (98-107) L Carbon Dioxide Level 30 MMOL/L (21-32) Anion Gap 11 mmol/L (5-15) Blood Urea Nitrogen 49 mg/dL (7-18) H Creatinine 1.6 MG/DL (0.55-1.30) #H Estimat Glomerular Filtration Rate 43.3 mL/min (>60) Glucose Level 113 MG/DL (74-106) #H Hemoglobin A1c 11.7 % (4.3-6.0) H Uric Acid 8.5 MG/DL (2.6-7.2) H Calcium Level 7.0 MG/DL (8.5-10.1) L Phosphorus Level 3.6 MG/DL (2.5-4.9) Magnesium Level 1.8 MG/DL (1.8-2.4) Total Bilirubin 0.3 MG/DL (0.2-1.0) Gamma Glutamyl Transpeptidase 368 U/L (5-85) H Aspartate Amino Transf (AST/SGOT) 89 U/L (15-37) H Alanine Aminotransferase (ALT/SGPT) 51 U/L (12-78) Alkaline Phosphatase 288 U/L (46-116) H Total Creatine Kinase 57 U/L (26-308) C-Reactive Protein, Quantitative < 0.4 mg/dL (0.00-0.90) Pro-B-Type Natriuretic Peptide 300 pg/mL (0-125) H Total Protein 8.4 G/DL (6.4-8.2) H Albumin 3.1 G/DL (3.4-5.0) L Globulin 5.3 g/dL Albumin/Globulin Ratio 0.6 (1.0-2.7) L Triglycerides Level 160 MG/DL (30-150) H Cholesterol Level < 50 MG/DL (< 200) LDL Cholesterol 98 mg/dL (<100) HDL Cholesterol 5 MG/DL (40-60) L Cholesterol/HDL Ratio 10.0 (3.3-4.4) H Thyroid Stimulating Hormone (TSH) 0.458 uiU/mL (0.358-3.740) Urine Color Pale yellow Urine Appearance Clear Urine pH 6.5 (4.5-8.0) Urine Specific [place] 1.015 (1.005-1.035) Urine Protein 2+ (NEGATIVE) H Urine Glucose (UA) Negative (NEGATIVE) Urine Ketones Negative (NEGATIVE) Urine Occult Blood 4+ (NEGATIVE) H Urine Nitrite Negative (NEGATIVE) Urine Bilirubin Negative (NEGATIVE) Urine Urobilinogen Normal MG/DL (0.0-1.0) Urine Leukocyte Esterase 2+ (NEGATIVE) H Urine RBC 5-10 /HPF (0 - 2) H Urine WBC 2-4 /HPF (0 - 2) Urine Squamous Epithelial Cells Occasional /LPF Urine Bacteria None /HPF (NONE) Urine Eosinophils None seen None seen Urine Osmolality 362 mOsm/kg (429-449) L Urine Random Sodium 35 MEQ/L (20-110) Osmolality 288 mOsm/kg (297-317) L Troponin I 0.000 ng/mL (0.000-0.056) Free Thyroxine 1.07 NG/DL (0.76-1.46) Free Triiodothyronine 1.9 pg/mL (2.3-4.2) L Cortisol Pending Valproic Acid (Depakene) Level 52 MCG/ML (50-100) Height (Feet): 5 Height (Inches): 6.00 Weight (Pounds): 111 Medications Current Medications Medications (Trade) Dose Ordered Sig/Mateo Route PRN Reason Start Time Stop Time Status Last Admin Dose Admin Acetaminophen (Tylenol) 650 mg Q4H PRN ORAL Mild Pain/Temp > 100.5 11/26/17 11:00 12/23/17 10:59 Amlodipine Besylate (Norvasc) 5 mg Q12HR ORAL 11/26/17 21:00 12/24/17 20:59 Aspirin (ASA) 81 mg DAILY ORAL 11/27/17 09:00 12/24/17 18:59 Clonidine HCl (Catapres) 0.1 mg Q4H PRN ORAL bp over 170 syst 11/26/17 11:00 12/26/17 10:59 Dextrose (Dextrose 50%) STAT PRN IV Hypoglycemia 11/26/17 11:00 12/23/17 10:59 Divalproex Sodium (Depakote ER) 1,000 mg QHS ORAL 11/26/17 21:00 12/23/17 20:59 Heparin Sodium (Porcine) (Heparin 5000 units/ml) 5,000 units EVERY 12 HOURS SUBQ 11/26/17 21:00 12/23/17 20:59 Heparin Sodium/ Sodium Chloride (Heparin 2000 units/Ns 1000ml premix) 2,000 unit ONCE PRN IV PICC PLACEMENT 11/26/17 10:45 11/26/17 23:59 Insulin Aspart (NovoLOG) BEFORE MEALS AND HS SUBQ 11/26/17 11:30 12/24/17 06:29 Insulin Detemir (Levemir) 10 units Q12HR SUBQ 11/26/17 21:00 12/25/17 09:59 Lidocaine HCl (Xylocaine 1% 30ml) 30 ml ONCE PRN INJ PICC PLACEMENT 11/26/17 10:45 11/26/17 23:59 Lorazepam (Ativan) 1 mg Q8H PRN ORAL For Anxiety 11/26/17 11:00 12/03/17 10:59 Nitroglycerin (Ntg) 0.4 mg Q5MIN X 3 DOSES PRN SL chest pain 11/26/17 10:45 12/23/17 14:29 Ondansetron HCl (Zofran) 4 mg Q6H PRN IVP Nausea & Vomiting 11/26/17 11:00 12/25/17 10:59 Pantoprazole (Protonix) 40 mg DAILY ORAL 11/27/17 09:00 12/24/17 08:59 Piperacillin Sod/ Tazobactam Sod 3.375 gm/Dextrose 110 ml @ 27.5 mls/hr EVERY 12 HOURS IVPB 11/26/17 21:00 12/03/17 20:59 Polyethylene Glycol (Miralax) 17 gm DAILYPRN PRN ORAL Constipation 11/26/17 11:00 12/23/17 10:59 Sodium Chloride 1,000 ml @ 100 mls/hr Q10H IV 11/26/17 10:45 12/26/17 10:29 Temazepam (Restoril) 15 mg HSPRN PRN ORAL Insomnia 11/26/17 21:00 12/03/17 20:59 Assessment/Plan Assessment/Plan Abx: IV Zosyn 11/25- Assessment: DKA Possible sepsis- No PNA, u/a neg, -CT chest: Prominent esophageal wall thickening involving the mid and distal thoracic esophagus. This seems progressed compared to 02/04/2017. Differential considerations include esophagitis or esophageal neoplasm. Correlation with upper GI study or direct visualization with endoscopy is recommended. No focal airspace consolidation, pleural effusion or pneumothorax. Unchanged findings suggestive of chronic, calcified pancreatitis. Coronary artery calcification. Leukocytosis (up to 25)- improving- r/o intrabdmoninal source vs reactive to DKA -afebrile -u/a no pyuria N/v diarrhea- ?2ry to DKA, intrabdominal source- r/o Flu CIERA, improving ESophageal wall thickening and odynophagia, recent esopaghitis 01/2017 (EGD)- r/ o malignancy- r/o infectious esophagitis (ie Melany) vs viral- r/o HIV Chronic pancreaitis +UTox for coccaine Plan: -Continue empiric Zosyn #2 pending cultures and WBC trend and start empiric PO Fluconazole 200mg qd for esophagitis/odynophagia -Obtain Influenza and stool cx, HIV test, hep serologies -f/u cx -Monitor CBC/BMP, temperatures Thank you for this consultation. Will continue to follow along with you. Discussed with KAILEE. Krista Che M.D. Nov 26, 2017 11:57
[2017-11-26 12:00] VITALS: BP 123/88
--- NOTE | 2017-11-26 12:05 | Diagnostic Imaging Report ---
Indication: Acute renal failure, urinary tract infection, pain during urination Technique: Grayscale and duplex images of the kidneys, retroperitoneum, and bladder were obtained. Comparison: 03/02/2012 abdomen ultrasound Findings: Right kidney measures 11 cm in length. Left kidney measures 11 point cm in length. Both kidneys demonstrate normal echogenicity. No hydronephrosis. No focal abnormality. Normal inferior vena cava. Bladder is normal. Impression: negative.
--- NOTE | 2017-11-26 12:33 | Diagnostic Imaging Report ---
Indications: Needs long-term IV access Technique: Ultrasound confirms patent compressible left brachial vein. Total sterile technique, including sterile probe cover and sterile gel, hat, mask,, sterile gown, large sterile drape, and preparation with 2% chlorhexidine utilized. Local anesthesia with 1% lidocaine. Under real-time ultrasound guidance, puncture brachial vein using 21-gauge needle, documented and archived, passage 0.018 guidewire under direct fluoroscopy, which was used to determine appropriate catheter length, exchange for 5 [place] peel-away sheath. 5 [place] Bard dual-lumen power PICC cut to 30 cm. It was inserted through the peel-away sheath. Peel-away sheath and guidewire removed. Catheter fixed to the skin. Both catheter ports aspirated and flushed. Patient tolerated procedure well, without immediate complication. Digital radiograph documents satisfactory catheter tip position, at the cavoatrial junction. Total fluoroscopy time 0.2 minutes. Total dose area product 5.5 dGycm2 Impression: Successful placement of left arm PICC under sonographic and fluoroscopic guidance, as described above.
[2017-11-26] MEDS: Fluconazole 100mg tab ORAL SCH (14:00)
--- NOTE | 2017-11-26 15:09 | Nephrology Progress Note ---
Assessment/Plan Problem List: (1) ARF (acute renal failure) (2) Hyperglycemia (3) Cocaine abuse Assessment renal failure ? acute , dehydration, ? Underlying CKD due to DM Dm , Hyperglycemia HTN SZ disorders Encephalopathy IDDM Urine + for Cocaine Plan Plan; Love Hydrate with saline Urine studies monitor renal parameters avoid nephrotoxics check BP and BS Subjective ROS Limited/Unobtainable: No Constitutional: Reports: malaise, weakness Objective Objective Last 24 Hour Vital Signs Date Time Temp Pulse Resp B/P (MAP) Pulse Ox O2 Delivery O2 Flow Rate FiO2 11/26/17 12:00 97.7 85 20 123/88 100 Room Air 11/26/17 09:31 94 120/81 11/26/17 07:05 Room Air 11/26/17 07:05 93 Room Air 11/26/17 04:17 98.4 94 20 120/81 100 Room Air 11/26/17 00:05 98.1 94 20 145/97 99 Room Air 11/25/17 21:25 Nasal Cannula 2.0 28 11/25/17 21:25 93 Nasal Cannula 2.0 28 11/25/17 21:13 95 121/88 11/25/17 20:01 98.1 95 20 121/88 99 Room Air 11/25/17 16:00 97.9 96 19 116/71 100 Nasal Cannula 2.0 11/25/17 16:00 90 Intake and Output 11/25/17 11/26/17 19:00 07:00 Intake Total 1125.0 ml 510.0 ml Output Total 1350 ml 1300 ml Balance -225.0 ml -790.0 ml Intake Oral 120 ml IV Total 1005.0 ml 510.0 ml Output Urine Total 1350 ml 1300 ml Laboratory Tests 11/25/17 16:00: Osmolality 288L, Troponin I 0.000, Free Thyroxine 1.07, Free Triiodothyronine 1.9L, Cortisol [Pending], Valproic Acid (Depakene) Level 52 11/26/17 04:00: Urine Eosinophils None seen Height (Feet): 5 Height (Inches): 6.00 Weight (Pounds): 111 General Appearance: lethargic, confused Objective no change JACKELIN KOEHLER Nov 26, 2017 15:09
[2017-11-26 16:00] VITALS: BP 132/88
[2017-11-26] MEDS ORDERED: Zolpidem 5mg tab ORAL PRN (16:30)
--- NOTE | 2017-11-26 19:11 | Pulmonology Progress Note ---
Assessment/Plan Problems: (1) Intractable vomiting (2) HTN (hypertension) (3) CIERA (acute kidney injury) (4) Seizure disorder (5) Gastroparesis due to DM Assessment/Plan check labs ID note reivewed, wbc lower IV zofran ID to evaluate leukocytosis renal w/u Subjective ROS Limited/Unobtainable: No Constitutional: Reports: no symptoms HEENT: Repors: no symptoms Respiratory: Reports: no symptoms Allergies: Coded Allergies: No Known Allergies (Verified , NONE, 04/29/17) Objective Last 24 Hour Vital Signs Date Time Temp Pulse Resp B/P (MAP) Pulse Ox O2 Delivery O2 Flow Rate FiO2 11/26/17 16:00 97.8 92 20 132/88 100 11/26/17 12:00 97.7 85 20 123/88 100 Room Air 11/26/17 09:31 94 120/81 11/26/17 07:05 Room Air 11/26/17 07:05 93 Room Air 11/26/17 04:17 98.4 94 20 120/81 100 Room Air 11/26/17 00:05 98.1 94 20 145/97 99 Room Air 11/25/17 21:25 Nasal Cannula 2.0 28 11/25/17 21:25 93 Nasal Cannula 2.0 28 11/25/17 21:13 95 121/88 11/25/17 20:01 98.1 95 20 121/88 99 Room Air Intake and Output 11/25/17 11/26/17 19:00 07:00 Intake Total 1125.0 ml 510.0 ml Output Total 1350 ml 1300 ml Balance -225.0 ml -790.0 ml Intake Oral 120 ml IV Total 1005.0 ml 510.0 ml Output Urine Total 1350 ml 1300 ml Objective General Appearance: WD/WN HEENT: normocephalic, atraumatic Respiratory/Chest: chest wall non-tender, lungs clear Abdomen: normal bowel sounds, soft, non tender Genitourinary: normal external genitalia Skin: no lesions Laboratory Tests 11/26/17 04:00: Urine Eosinophils None seen Current Medications Medications (Trade) Dose Ordered Sig/Mateo Route PRN Reason Start Time Stop Time Status Last Admin Dose Admin Acetaminophen (Tylenol) 650 mg Q4H PRN ORAL Mild Pain/Temp > 100.5 11/26/17 11:00 12/23/17 10:59 Amlodipine Besylate (Norvasc) 5 mg Q12HR ORAL 11/26/17 21:00 12/24/17 20:59 Aspirin (ASA) 81 mg DAILY ORAL 11/27/17 09:00 12/24/17 18:59 Clonidine HCl (Catapres) 0.1 mg Q4H PRN ORAL bp over 170 syst 11/26/17 11:00 12/26/17 10:59 Dextrose (Dextrose 50%) STAT PRN IV Hypoglycemia 11/26/17 11:00 12/23/17 10:59 Divalproex Sodium (Depakote ER) 1,000 mg QHS ORAL 11/26/17 21:00 12/23/17 20:59 Fluconazole (Diflucan) 200 mg DAILY ORAL 11/26/17 14:00 12/03/17 13:59 Heparin Sodium (Porcine) (Heparin 5000 units/ml) 5,000 units EVERY 12 HOURS SUBQ 11/26/17 21:00 12/23/17 20:59 Heparin Sodium/ Sodium Chloride (Heparin 2000 units/Ns 1000ml premix) 2,000 unit ONCE PRN IV PICC PLACEMENT 11/26/17 10:45 11/26/17 23:59 Insulin Aspart (NovoLOG) BEFORE MEALS AND HS SUBQ 11/26/17 11:30 12/24/17 06:29 11/26/17 16:28 Insulin Detemir (Levemir) 10 units Q12HR SUBQ 11/26/17 21:00 12/25/17 09:59 Lidocaine HCl (Xylocaine 1% 30ml) 30 ml ONCE PRN INJ PICC PLACEMENT 11/26/17 10:45 11/26/17 23:59 Lorazepam (Ativan) 1 mg Q8H PRN ORAL For Anxiety 11/26/17 11:00 12/03/17 10:59 Nitroglycerin (Ntg) 0.4 mg Q5MIN X 3 DOSES PRN SL chest pain 11/26/17 10:45 12/23/17 14:29 Ondansetron HCl (Zofran) 4 mg Q6H PRN IVP Nausea & Vomiting 11/26/17 11:00 12/25/17 10:59 Pantoprazole (Protonix) 40 mg DAILY ORAL 11/27/17 09:00 12/24/17 08:59 Piperacillin Sod/ Tazobactam Sod 3.375 gm/Dextrose 110 ml @ 27.5 mls/hr Q8HR@0100,0900,1700 IVPB 11/26/17 17:00 12/03/17 16:59 11/26/17 17:10 Polyethylene Glycol (Miralax) 17 gm DAILYPRN PRN ORAL Constipation 11/26/17 11:00 12/23/17 10:59 Sodium Chloride 1,000 ml @ 100 mls/hr Q10H IV 11/26/17 10:45 12/26/17 10:29 Temazepam (Restoril) 15 mg HSPRN PRN ORAL Insomnia 11/26/17 21:00 12/03/17 20:59 11/26/17 17:11 MILA LAINEZ Nov 26, 2017 19:11
--- NOTE | 2017-11-26 19:13 | General Progress Note ---
Assessment/Plan Assessment/Plan ASSESSMENT AND RECOMMENDATIONS: 1. Hyperglycemia due to DM. The patient with an elevated blood sugar of 509. Continue to closely monitor. --> Consult with Dr. Early for further management. BS was >500, nonketotic. The patient has been refusing care. --> She has been noncompliant in the past. 2. CIERA on CKD and Hyperproteinemia. We will order SPEP and UPEP. --> appreciate nephro recs 3. Noncompliance history. We recommended compliance as the patient has been admitted multiple times with hyperglycemia. 4. Nausea, vomiting, and diarrhea likely related to poor control of underlying disorders --> GI follow 5. Hypertension. Currently, the patient is normotensive. 6. Leukocytosis --> on antibiotics 7. Anemia 8. Subcutaneous heparin for DVT prophylaxis Subjective Constitutional: Denies: no symptoms, chills, diaphoresis, fever, malaise, weakness, other HEENT: Denies: no symptoms, eye pain, blurred vision, tearing, double vision, ear pain, ear discharge, nose pain, nose congestion, throat pain, throat swelling, mouth pain, mouth swelling, other Cardiovascular: Denies: no symptoms, chest pain, edema, irregular heart rate, lightheadedness, palpitations, syncope, other Respiratory: Denies: no symptoms, cough, orthopnea, shortness of breath, SOB with excertion, SOB at rest, sputum, stridor, wheezing, other Gastrointestinal/Abdominal: Denies: no symptoms, abdomen distended, abdominal pain, black stools, tarry stools, blood in stool, constipated, diarrhea, difficulty swallowing, nausea, poor appetite, poor fluid intake, rectal bleeding , vomiting, other Genitourinary: Denies: no symptoms, burning, discharge, frequency, flank pain, hematuria, incontinence, pain, urgency, other Neurologic/Psychiatric: Denies: no symptoms, anxiety, depressed, emotional problems, headache, numbness, paresthesia, pre-existing deficit, seizure, tingling, tremors, weakness, other Endocrine: Denies: no symptoms, excessive sweating, flushing, intolerance to cold, intolerance to heat, increased hunger, increased thirst, increased urine, unexplained weight gain, unexplained weight loss, other Hematologic/Lymphatic: Denies: no symptoms, anemia, easy bleeding, easy bruising, other Allergies: Coded Allergies: No Known Allergies (Verified , NONE, 04/29/17) Subjective afebrile, nad Objective Last 24 Hour Vital Signs Date Time Temp Pulse Resp B/P (MAP) Pulse Ox O2 Delivery O2 Flow Rate FiO2 11/26/17 16:00 97.8 92 20 132/88 100 11/26/17 12:00 97.7 85 20 123/88 100 Room Air 11/26/17 09:31 94 120/81 11/26/17 07:05 Room Air 11/26/17 07:05 93 Room Air 11/26/17 04:17 98.4 94 20 120/81 100 Room Air 11/26/17 00:05 98.1 94 20 145/97 99 Room Air 11/25/17 21:25 Nasal Cannula 2.0 28 11/25/17 21:25 93 Nasal Cannula 2.0 28 11/25/17 21:13 95 121/88 11/25/17 20:01 98.1 95 20 121/88 99 Room Air Intake and Output 11/25/17 11/26/17 19:00 07:00 Intake Total 1125.0 ml 510.0 ml Output Total 1350 ml 1300 ml Balance -225.0 ml -790.0 ml Intake Oral 120 ml IV Total 1005.0 ml 510.0 ml Output Urine Total 1350 ml 1300 ml Laboratory Tests 11/26/17 04:00: Urine Eosinophils None seen Height (Feet): 5 Height (Inches): 6.00 Weight (Pounds): 111 General Appearance: no apparent distress EENT: normal ENT inspection Neck: normal alignment Cardiovascular: normal rate Respiratory/Chest: lungs clear Abdomen: soft Skin: warm/dry Roge Chaudhary Nov 26, 2017 19:13
[2017-11-26 20:00] VITALS: BP 113/80
[2017-11-26] MEDS: Depakote ER 500mg tab ORAL SCH (20:57)
--- NOTE | 2017-11-26 21:17 | General Progress Note ---
Assessment/Plan Problem List: (1) DKA (diabetic ketoacidoses) ICD Codes: E13.10 - Other specified diabetes mellitus with ketoacidosis without coma SNOMED: 05297094, 793840511 (2) Leukocytosis ICD Codes: D72.829 - Elevated white blood cell count, unspecified SNOMED: 431511942, 202877549 (3) HTN (hypertension) ICD Codes: I10 - Essential (primary) hypertension SNOMED: 35669215 (4) Non compliance with medical treatment ICD Codes: Z91.19 - Patient's noncompliance with other medical treatment and regimen SNOMED: 3593168 Assessment/Plan continue Levemir 10 units bid continue Novolog coverage difficult patient to work with - non compliant and does not want to communicate Subjective ROS Limited/Unobtainable: Yes Allergies: Coded Allergies: No Known Allergies (Verified , NONE, 04/29/17) Subjective events noted Objective Last 24 Hour Vital Signs Date Time Temp Pulse Resp B/P (MAP) Pulse Ox O2 Delivery O2 Flow Rate FiO2 11/26/17 20:58 96 113/80 11/26/17 20:00 98.2 96 20 113/80 98 Room Air 11/26/17 16:00 97.8 92 20 132/88 100 11/26/17 12:00 97.7 85 20 123/88 100 Room Air 11/26/17 09:31 94 120/81 11/26/17 07:05 Room Air 11/26/17 07:05 93 Room Air 11/26/17 04:17 98.4 94 20 120/81 100 Room Air 11/26/17 00:05 98.1 94 20 145/97 99 Room Air 11/25/17 21:25 Nasal Cannula 2.0 28 11/25/17 21:25 93 Nasal Cannula 2.0 28 Intake and Output 11/25/17 11/26/17 19:00 07:00 Intake Total 1125.0 ml 510.0 ml Output Total 1350 ml 1300 ml Balance -225.0 ml -790.0 ml Intake Oral 120 ml IV Total 1005.0 ml 510.0 ml Output Urine Total 1350 ml 1300 ml Laboratory Tests 11/26/17 04:00: Urine Eosinophils None seen Height (Feet): 5 Height (Inches): 6.00 Weight (Pounds): 111 General Appearance: no apparent distress Neck: normal alignment Cardiovascular: normal rate Respiratory/Chest: lungs clear Pelvis: normal external exam Edema: no edema noted Arm (L), no edema noted Arm (R), no edema noted Leg (L), no edema noted Leg (R), no edema noted Pedal (L), no edema noted Pedal (R), no edema noted Generalized Objective Current Medications Medications (Trade) Dose Ordered Sig/Mateo Route PRN Reason Start Time Stop Time Status Last Admin Dose Admin Acetaminophen (Tylenol) 650 mg Q4H PRN ORAL Mild Pain/Temp > 100.5 11/26/17 11:00 12/23/17 10:59 Amlodipine Besylate (Norvasc) 5 mg Q12HR ORAL 11/26/17 21:00 12/24/17 20:59 Aspirin (ASA) 81 mg DAILY ORAL 11/27/17 09:00 12/24/17 18:59 Clonidine HCl (Catapres) 0.1 mg Q4H PRN ORAL bp over 170 syst 11/26/17 11:00 12/26/17 10:59 Dextrose (Dextrose 50%) STAT PRN IV Hypoglycemia 11/26/17 11:00 12/23/17 10:59 Divalproex Sodium (Depakote ER) 1,000 mg QHS ORAL 11/26/17 21:00 12/23/17 20:59 11/26/17 20:57 Fluconazole (Diflucan) 200 mg DAILY ORAL 11/26/17 14:00 12/03/17 13:59 Heparin Sodium (Porcine) (Heparin 5000 units/ml) 5,000 units EVERY 12 HOURS SUBQ 11/26/17 21:00 12/23/17 20:59 11/26/17 21:00 Heparin Sodium/ Sodium Chloride (Heparin 2000 units/Ns 1000ml premix) 2,000 unit ONCE PRN IV PICC PLACEMENT 11/26/17 10:45 11/26/17 23:59 Insulin Aspart (NovoLOG) BEFORE MEALS AND HS SUBQ 11/26/17 11:30 12/24/17 06:29 11/26/17 16:28 Insulin Detemir (Levemir) 10 units Q12HR SUBQ 11/26/17 21:00 12/25/17 09:59 Lidocaine HCl (Xylocaine 1% 30ml) 30 ml ONCE PRN INJ PICC PLACEMENT 11/26/17 10:45 11/26/17 23:59 Lorazepam (Ativan) 1 mg Q8H PRN ORAL For Anxiety 11/26/17 11:00 12/03/17 10:59 11/26/17 20:58 Nitroglycerin (Ntg) 0.4 mg Q5MIN X 3 DOSES PRN SL chest pain 11/26/17 10:45 12/23/17 14:29 Ondansetron HCl (Zofran) 4 mg Q6H PRN IVP Nausea & Vomiting 11/26/17 11:00 12/25/17 10:59 Pantoprazole (Protonix) 40 mg DAILY ORAL 11/27/17 09:00 12/24/17 08:59 Piperacillin Sod/ Tazobactam Sod 3.375 gm/Dextrose 110 ml @ 27.5 mls/hr Q8HR@0100,0900,1700 IVPB 11/26/17 17:00 12/03/17 16:59 11/26/17 17:10 Polyethylene Glycol (Miralax) 17 gm DAILYPRN PRN ORAL Constipation 11/26/17 11:00 12/23/17 10:59 Sodium Chloride 1,000 ml @ 100 mls/hr Q10H IV 11/26/17 10:45 12/26/17 10:29 11/26/17 20:57 Temazepam (Restoril) 15 mg HSPRN PRN ORAL Insomnia 11/26/17 21:00 12/03/17 20:59 11/26/17 17:11 Item Value Date Time Bedside Blood Glucose 92 mg/dl 11/26/17 2102 Bedside Blood Glucose 415 mg/dl H 11/26/17 1630 Bedside Blood Glucose 196 mg/dl H 11/26/17 1130 Bedside Blood Glucose 97 mg/dl 11/26/17 0900 FRANCES BRADLEY Nov 26, 2017 21:16
[2017-11-27] VITALS: BP 137/87
[2017-11-27] MEDS: Piperacillin/Tazobactam 3.375 GM in D5W 110 ML IVPB SCH ×2 (01:04→10:27)
[2017-11-27 04:00] VITALS: BP 141/75
[2017-11-27] MEDS: NovoLOG Insulin Flexpen SUBQ SCH ×4 (05:25→21:17)
[2017-11-27 07:42] LABS: BASOPHILS % (AUTO) 0.4 % (0.0-2.0); EOSINOPHILS % (AUTO) 0.8 % (0.0-3.0); HEMATOCRIT 33.6 % (37.0-47.0); HEMOGLOBIN 10.2 G/DL (12.0-16.0); LYMPHOCYTES % (AUTO) 23.9 % (20.0-45.0); MEAN CORPUSCULAR VOLUME 102 FL (80-99); MONOCYTES % (AUTO) 6.9 % (1.0-10.0); PLATELET COUNT 201 K/UL (150-450); RED BLOOD COUNT 3.29 M/UL (4.20-5.40)
[2017-11-27 08:00] VITALS: BP 115/70
[2017-11-27 08:08] LABS: CREATINE KINASE 35 U/L (26-308); GAMMA GLUTAMYL TRANSPEPTIDASE 297 U/L (5-85)
[2017-11-27 08:18] LABS: ALANINE AMINOTRANSFERASE 44 U/L (12-78); ALBUMIN 2.9 G/DL (3.4-5.0); ALBUMIN/GLOBULIN RATIO 0.7 (1.0-2.7); ALKALINE PHOSPHATASE 251 U/L (46-116); ANION GAP 9 mmol/L (5-15); ASPARTATE AMINO TRANSFERASE 58 U/L (15-37); BILIRUBIN,TOTAL 0.4 MG/DL (0.2-1.0); BLOOD UREA NITROGEN 35 mg/dL (7-18); CALCIUM 6.8 MG/DL (8.5-10.1); CARBON DIOXIDE 29 MMOL/L (21-32); CHLORIDE 84 MMOL/L (98-107); CREATININE 2.6 MG/DL (0.55-1.30); PHOSPHORUS 3.8 MG/DL (2.5-4.9); POTASSIUM 4.2 MMOL/L (3.5-5.1); SODIUM 122 MMOL/L (136-145)
[2017-11-27] MEDS: Fluconazole 100mg tab ORAL SCH (09:00)
[2017-11-27] MEDS: Aspirin Baby 81mg ORAL SCH (09:00)
[2017-11-27] MEDS: Heparin 5000 units/ml inj SUBQ SCH ×2 (09:00→21:15)
[2017-11-27] MEDS: Levemir Flexpen SUBQ SCH ×2 (09:20→21:16)
--- NOTE | 2017-11-27 10:48 | GI Progress Note ---
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; K31.84 - Gastroparesis SNOMED: 72673803, 287919535 (2) Non compliance with medical treatment ICD Codes: Z91.19 - Patient's noncompliance with other medical treatment and regimen SNOMED: 6361450 (3) Diarrhea ICD Codes: R19.7 - Diarrhea, unspecified SNOMED: 50555856 (4) Nausea alone ICD Codes: R11.0 - Nausea SNOMED: 634213483 (5) Intractable nausea and vomiting ICD Codes: R11.2 - Nausea with vomiting, unspecified SNOMED: 190997654, 554889769 (6) Abdominal pain ICD Codes: R10.9 - Unspecified abdominal pain SNOMED: 50488754 (7) Esophagitis ICD Codes: K20.9 - Esophagitis, unspecified SNOMED: 69395982 (8) Severe malnutrition ICD Codes: E43 - Unspecified severe protein-calorie malnutrition SNOMED: 31264519 (9) Cocaine abuse ICD Codes: F14.10 - Cocaine abuse, uncomplicated SNOMED: 82458550 Status: unchanged Status Narrative Discussed with Dr. Vickers. Assessment/Plan defer GI procedures given recent EGD in january 2017 >> esophagitis zofran prn, reglan for persistent vomiting adv to ADA diet DM mgmt ppi daily abx monitor H&H, prn transfusions fu labs Subjective Subjective generalized pain Objective Last 24 Hour Vital Signs Date Time Temp Pulse Resp B/P (MAP) Pulse Ox O2 Delivery O2 Flow Rate FiO2 11/27/17 09:00 90 115/70 11/27/17 08:00 97.1 90 20 115/70 99 Room Air 11/27/17 04:00 98.4 89 18 141/75 100 11/27/17 04:00 100 Room Air 11/27/17 00:00 99 Room Air 11/27/17 00:00 97.3 96 20 137/87 99 Room Air 11/26/17 21:32 Room Air 11/26/17 21:32 94 Room Air 11/26/17 20:58 96 113/80 11/26/17 20:00 98 Room Air 11/26/17 20:00 98.2 96 20 113/80 98 Room Air 11/26/17 16:00 97.8 92 20 132/88 100 11/26/17 12:00 97.7 85 20 123/88 100 Room Air Intake and Output 11/26/17 11/27/17 19:00 07:00 Intake Total 655 ml 2165.0 ml Output Total 900 ml 1700 ml Balance -245 ml 465.0 ml Intake Oral 600 ml 1400 ml IV Total 55 ml 765.0 ml Output Urine Total 900 ml 1700 ml Laboratory Tests Test 11/27/17 05:00 White Blood Count 10.0 K/UL (4.8-10.8) Red Blood Count 3.29 M/UL (4.20-5.40) L Hemoglobin 10.2 G/DL (12.0-16.0) L Hematocrit 33.6 % (37.0-47.0) L Mean Corpuscular Volume 102 FL (80-99) H Mean Corpuscular Hemoglobin 31.0 PG (27.0-31.0) Mean Corpuscular Hemoglobin Concent 30.4 G/DL (32.0-36.0) L Red Cell Distribution Width 12.0 % (11.6-14.8) Platelet Count 201 K/UL (150-450) Mean Platelet Volume 8.5 FL (6.5-10.1) Neutrophils (%) (Auto) 68.0 % (45.0-75.0) Lymphocytes (%) (Auto) 23.9 % (20.0-45.0) Monocytes (%) (Auto) 6.9 % (1.0-10.0) Eosinophils (%) (Auto) 0.8 % (0.0-3.0) Basophils (%) (Auto) 0.4 % (0.0-2.0) Sodium Level 122 MMOL/L (136-145) L Potassium Level 4.2 MMOL/L (3.5-5.1) Chloride Level 84 MMOL/L (98-107) L Carbon Dioxide Level 29 MMOL/L (21-32) Anion Gap 9 mmol/L (5-15) Blood Urea Nitrogen 35 mg/dL (7-18) H Creatinine 2.6 MG/DL (0.55-1.30) H Estimat Glomerular Filtration Rate 24.7 mL/min (>60) Glucose Level 886 MG/DL (74-106) *H Uric Acid 4.8 MG/DL (2.6-7.2) Calcium Level 6.8 MG/DL (8.5-10.1) L Phosphorus Level 3.8 MG/DL (2.5-4.9) Magnesium Level 1.8 MG/DL (1.8-2.4) Total Bilirubin 0.4 MG/DL (0.2-1.0) Gamma Glutamyl Transpeptidase 297 U/L (5-85) H Aspartate Amino Transf (AST/SGOT) 58 U/L (15-37) H Alanine Aminotransferase (ALT/SGPT) 44 U/L (12-78) Alkaline Phosphatase 251 U/L (46-116) H Total Creatine Kinase 35 U/L (26-308) C-Reactive Protein, Quantitative < 0.4 mg/dL (0.00-0.90) Pro-B-Type Natriuretic Peptide 108 pg/mL (0-125) Total Protein 7.3 G/DL (6.4-8.2) Albumin 2.9 G/DL (3.4-5.0) L Globulin 4.4 g/dL Albumin/Globulin Ratio 0.7 (1.0-2.7) L Hepatitis A Antibody Total Pending Hepatitis B Surface Antigen Pending Hepatitis B Surface Antibody, Quant Pending Hepatitis B Core Total Antibody Pending Hepatitis C Antibody Pending HIV (1&2) Antibody Rapid Negative (NEGATIVE) Height (Feet): 5 Height (Inches): 6.00 Weight (Pounds): 108 General Appearance: WD/WN, no apparent distress, alert Cardiovascular: normal rate Respiratory/Chest: normal breath sounds, no respiratory distress Abdominal Exam: normal bowel sounds, non tender, soft Extremities: normal range of motion, non-tender Muriel Serra N.PHafsa Nov 27, 2017 10:48
--- NOTE | 2017-11-27 15:20 | Diagnostic Imaging Report ---
Indication: Reason For Exam: COUGH Technique: One view of the chest Comparison: 11/01/2017 Findings: Also again seen over the right arm and shoulder region. The lungs and pleural spaces are clear. The heart size is normal. No significant interim change Impression: No acute process
--- NOTE | 2017-11-27 15:43 | Nephrology Progress Note ---
Assessment/Plan Problem List: (1) ARF (acute renal failure) (2) Hyperglycemia Assessment: leading to low Na (3) Cocaine abuse Assessment renal failure ? acute , dehydration, ? Underlying CKD due to DM Cr lowering Dm , Hyperglycemia HTN SZ disorders Encephalopathy IDDM Urine + for Cocaine Plan Plan; Love Hydrate with saline Urine studies monitor renal parameters avoid nephrotoxics check BP and BS Subjective ROS Limited/Unobtainable: No Constitutional: Reports: malaise, weakness Objective Objective Last 24 Hour Vital Signs Date Time Temp Pulse Resp B/P (MAP) Pulse Ox O2 Delivery O2 Flow Rate FiO2 11/27/17 09:00 90 115/70 11/27/17 08:00 97.1 90 20 115/70 99 Room Air 11/27/17 07:00 Room Air 11/27/17 07:00 95 Room Air 11/27/17 04:00 98.4 89 18 141/75 100 11/27/17 04:00 100 Room Air 11/27/17 00:00 99 Room Air 11/27/17 00:00 97.3 96 20 137/87 99 Room Air 11/26/17 21:32 Room Air 11/26/17 21:32 94 Room Air 11/26/17 20:58 96 113/80 11/26/17 20:00 98 Room Air 11/26/17 20:00 98.2 96 20 113/80 98 Room Air 11/26/17 16:00 97.8 92 20 132/88 100 Intake and Output 11/26/17 11/27/17 19:00 07:00 Intake Total 655 ml 2165.0 ml Output Total 900 ml 1700 ml Balance -245 ml 465.0 ml Intake Oral 600 ml 1400 ml IV Total 55 ml 765.0 ml Output Urine Total 900 ml 1700 ml Laboratory Tests 11/27/17 05:00: White Blood Count 10.0, Red Blood Count 3.29L, Hemoglobin 10.2L, Hematocrit 33.6L, Mean Corpuscular Volume 102H, Mean Corpuscular Hemoglobin 31.0, Mean Corpuscular Hemoglobin Concent 30.4L, Red Cell Distribution Width 12.0, Platelet Count 201, Mean Platelet Volume 8.5, Neutrophils (%) (Auto) 68.0, Lymphocytes (%) (Auto) 23.9, Monocytes (%) (Auto) 6.9, Eosinophils (%) (Auto) 0.8, Basophils (%) (Auto) 0.4, Sodium Level 122L, Potassium Level 4.2, Chloride Level 84L, Carbon Dioxide Level 29, Anion Gap 9, Blood Urea Nitrogen 35H, Creatinine 2.6H, Estimat Glomerular Filtration Rate 24.7, Glucose Level 886*H, Uric Acid 4.8, Calcium Level 6.8L, Phosphorus Level 3.8, Magnesium Level 1.8, Total Bilirubin 0.4, Gamma Glutamyl Transpeptidase 297H, Aspartate Amino Transf (AST/SGOT) 58H, Alanine Aminotransferase (ALT/SGPT) 44, Alkaline Phosphatase 251H, Total Creatine Kinase 35, C-Reactive Protein, Quantitative < 0.4, Pro-B- Type Natriuretic Peptide 108, Total Protein 7.3, Albumin 2.9L, Globulin 4.4, Albumin/Globulin Ratio 0.7L, Hepatitis A Antibody Total [Pending], Hepatitis B Surface Antigen [Pending], Hepatitis B Surface Antibody, Quant [Pending], Hepatitis B Core Total Antibody [Pending], Hepatitis C Antibody [Pending], HIV ( 1&2) Antibody Rapid Negative Height (Feet): 5 Height (Inches): 6.00 Weight (Pounds): 108 General Appearance: no apparent distress Objective no change JACKELIN KOEHLER Nov 27, 2017 15:43
[2017-11-27 16:00] VITALS: BP 108/72
[2017-11-27] MEDS: Piperacillin/Tazobactam 3.375 GM in NS 110 ML IVPB SCH ×2 (17:29→23:41)
--- NOTE | 2017-11-27 18:35 | Infectious Diseases Prog Note ---
Assessment/Plan Assessment/Plan Abx: IV Zosyn 1/2- Assessment: DKA Possible sepsis- No PNA, u/a neg, BCx NTD- no obvious source of infection indentified thus far -CT chest: Prominent esophageal wall thickening involving the mid and distal thoracic esophagus. This seems progressed compared to 02/04/2017. Differential considerations include esophagitis or esophageal neoplasm. Correlation with upper GI study or direct visualization with endoscopy is recommended. No focal airspace consolidation, pleural effusion or pneumothorax. Unchanged findings suggestive of chronic, calcified pancreatitis. Coronary artery calcification. Leukocytosis (up to 25)- improving- r/o intrabdmoninal source vs reactive to DKA - resolved -afebrile -u/a no pyuria N/v diarrhea- ?2ry to DKA, intrabdominal source- r/o Flu CIERA, improving ESophageal wall thickening and odynophagia, recent esopaghitis 01/2017 (EGD)- r/ o malignancy- r/o infectious esophagitis (ie Melany) vs viral- -HIV 1/2 ab neg Transaminitis, improving -hep panel pending Chronic pancreaitis +UTox for coccaine Plan: -Continue empiric Zosyn #3 for the next 24hrs pending cultures- if remains neg , will d/c -Continue empiric PO Fluconazole 200mg qd #2/7 for esophagitis/odynophagia -f/u Influenza and stool cx, hep serologies -f/u cx -Monitor CBC/BMP, temperatures Thank you for this consultation. Will continue to follow along with you. Discussed with RN. Subjective Allergies: Coded Allergies: No Known Allergies (Verified , NONE, 04/29/17) Subjective afebrile leukocytosis resolved \Bcx NTD Objective Vital Signs Last 24 Hour Vital Signs Date Time Temp Pulse Resp B/P (MAP) Pulse Ox O2 Delivery O2 Flow Rate FiO2 11/27/17 16:00 97.1 84 20 108/72 100 11/27/17 09:00 90 115/70 11/27/17 08:00 97.1 90 20 115/70 99 Room Air 11/27/17 07:00 Room Air 11/27/17 07:00 95 Room Air 11/27/17 04:00 98.4 89 18 141/75 100 11/27/17 04:00 100 Room Air 11/27/17 00:00 99 Room Air 11/27/17 00:00 97.3 96 20 137/87 99 Room Air 11/26/17 21:32 Room Air 11/26/17 21:32 94 Room Air 11/26/17 20:58 96 113/80 11/26/17 20:00 98 Room Air 11/26/17 20:00 98.2 96 20 113/80 98 Room Air Height (Feet): 5 Height (Inches): 6.00 Weight (Pounds): 108 Objective GENERAL: She is in no distress.chronically ill HEENT: no tongue thrush, difficult to examine pharynx PULMONARY: Decreased breath sounds. CARDIOVASCULAR: Regular rate. No S3 or S4. ABDOMEN: Soft, nontender, and nondistended. EXTREMITIES: A 1+ edema. Microbiology Date/Time Source Procedure Growth Status 11/25/17 16:00 Blood Blood Culture - Preliminary NO GROWTH AFTER 24 HOURS Resulted 11/25/17 15:38 Blood Blood Culture - Preliminary NO GROWTH AFTER 24 HOURS Resulted Laboratory Tests Test 11/27/17 05:00 White Blood Count 10.0 K/UL (4.8-10.8) Red Blood Count 3.29 M/UL (4.20-5.40) L Hemoglobin 10.2 G/DL (12.0-16.0) L Hematocrit 33.6 % (37.0-47.0) L Mean Corpuscular Volume 102 FL (80-99) H Mean Corpuscular Hemoglobin 31.0 PG (27.0-31.0) Mean Corpuscular Hemoglobin Concent 30.4 G/DL (32.0-36.0) L Red Cell Distribution Width 12.0 % (11.6-14.8) Platelet Count 201 K/UL (150-450) Mean Platelet Volume 8.5 FL (6.5-10.1) Neutrophils (%) (Auto) 68.0 % (45.0-75.0) Lymphocytes (%) (Auto) 23.9 % (20.0-45.0) Monocytes (%) (Auto) 6.9 % (1.0-10.0) Eosinophils (%) (Auto) 0.8 % (0.0-3.0) Basophils (%) (Auto) 0.4 % (0.0-2.0) Sodium Level 122 MMOL/L (136-145) L Potassium Level 4.2 MMOL/L (3.5-5.1) Chloride Level 84 MMOL/L (98-107) L Carbon Dioxide Level 29 MMOL/L (21-32) Anion Gap 9 mmol/L (5-15) Blood Urea Nitrogen 35 mg/dL (7-18) H Creatinine 2.6 MG/DL (0.55-1.30) H Estimat Glomerular Filtration Rate 24.7 mL/min (>60) Glucose Level 886 MG/DL (74-106) *H Uric Acid 4.8 MG/DL (2.6-7.2) Calcium Level 6.8 MG/DL (8.5-10.1) L Phosphorus Level 3.8 MG/DL (2.5-4.9) Magnesium Level 1.8 MG/DL (1.8-2.4) Total Bilirubin 0.4 MG/DL (0.2-1.0) Gamma Glutamyl Transpeptidase 297 U/L (5-85) H Aspartate Amino Transf (AST/SGOT) 58 U/L (15-37) H Alanine Aminotransferase (ALT/SGPT) 44 U/L (12-78) Alkaline Phosphatase 251 U/L (46-116) H Total Creatine Kinase 35 U/L (26-308) C-Reactive Protein, Quantitative < 0.4 mg/dL (0.00-0.90) Pro-B-Type Natriuretic Peptide 108 pg/mL (0-125) Total Protein 7.3 G/DL (6.4-8.2) Albumin 2.9 G/DL (3.4-5.0) L Globulin 4.4 g/dL Albumin/Globulin Ratio 0.7 (1.0-2.7) L Hepatitis A Antibody Total Pending Hepatitis B Surface Antigen Pending Hepatitis B Surface Antibody, Quant Pending Hepatitis B Core Total Antibody Pending Hepatitis C Antibody Pending HIV (1&2) Antibody Rapid Negative (NEGATIVE) Current Medications Medications (Trade) Dose Ordered Sig/Mateo Route PRN Reason Start Time Stop Time Status Last Admin Dose Admin Acetaminophen (Tylenol) 650 mg Q4H PRN ORAL Mild Pain/Temp > 100.5 11/26/17 11:00 12/23/17 10:59 Amlodipine Besylate (Norvasc) 5 mg Q12HR ORAL 11/26/17 21:00 12/24/17 20:59 Aspirin (ASA) 81 mg DAILY ORAL 11/27/17 09:00 12/24/17 18:59 Clonidine HCl (Catapres) 0.1 mg Q4H PRN ORAL bp over 170 syst 11/26/17 11:00 12/26/17 10:59 Dextrose (Dextrose 50%) STAT PRN IV Hypoglycemia 11/26/17 11:00 12/23/17 10:59 Divalproex Sodium (Depakote ER) 1,000 mg QHS ORAL 11/26/17 21:00 12/23/17 20:59 11/26/17 20:57 Fluconazole (Diflucan) 200 mg DAILY ORAL 11/26/17 14:00 12/03/17 13:59 Heparin Sodium (Porcine) (Heparin 5000 units/ml) 5,000 units EVERY 12 HOURS SUBQ 11/26/17 21:00 12/23/17 20:59 11/26/17 21:00 Insulin Aspart (NovoLOG) BEFORE MEALS AND HS SUBQ 11/26/17 11:30 12/24/17 06:29 11/27/17 17:26 Insulin Detemir (Levemir) 10 units Q12HR SUBQ 11/26/17 21:00 12/25/17 09:59 11/27/17 09:20 Lorazepam (Ativan) 1 mg Q8H PRN ORAL For Anxiety 11/26/17 11:00 12/03/17 10:59 11/26/17 20:58 Nitroglycerin (Ntg) 0.4 mg Q5MIN X 3 DOSES PRN SL chest pain 11/26/17 10:45 12/23/17 14:29 Ondansetron HCl (Zofran) 4 mg Q6H PRN IVP Nausea & Vomiting 11/26/17 11:00 12/25/17 10:59 Pantoprazole (Protonix) 40 mg DAILY ORAL 11/27/17 09:00 12/24/17 08:59 Piperacillin Sod/ Tazobactam Sod 3.375 gm/Sodium Chloride 110 ml @ 27.5 mls/hr Q8HR@0100,0900,1700 IVPB 11/27/17 17:00 12/03/17 16:59 11/27/17 17:29 Polyethylene Glycol (Miralax) 17 gm DAILYPRN PRN ORAL Constipation 11/26/17 11:00 12/23/17 10:59 Sodium Chloride 1,000 ml @ 100 mls/hr Q10H IV 11/26/17 10:45 12/26/17 10:29 11/27/17 17:25 Temazepam (Restoril) 15 mg HSPRN PRN ORAL Insomnia 11/26/17 21:00 12/03/17 20:59 11/26/17 17:11 Krista Che M.D. Nov 27, 2017 18:35
--- NOTE | 2017-11-27 18:51 | General Progress Note ---
Assessment/Plan Assessment/Plan ASSESSMENT AND RECOMMENDATIONS: #. Leukocytosis --> on antibiotics, has improved, appreciate id recs, n evidence of active infection #. Anemia of chronic disease --> closely monitor and anemia w/u to be ordered at this time since downtrending #. Hyperglycemia due to DM. The patient with an elevated blood sugar of 509. Continue to closely monitor. --> Consult with Dr. Early for further management. BS was >500, nonketotic. The patient has been refusing care. --> She has been noncompliant in the past. #. CIERA on CKD and Hyperproteinemia. nephro recs have been reviewed #. Noncompliance history. We recommended compliance as the patient has been admitted multiple times with hyperglycemia. #. Nausea, vomiting, and diarrhea likely related to poor control of underlying disorders --> GI follow #. Hypertension. Currently, the patient is normotensive. #. Subcutaneous heparin for DVT prophylaxis Subjective Constitutional: Reports: no symptoms, Denies: chills, diaphoresis, fever, malaise, weakness, other HEENT: Reports: no symptoms Cardiovascular: Denies: no symptoms, chest pain, edema, irregular heart rate, lightheadedness, palpitations, syncope, other Respiratory: Reports: no symptoms Gastrointestinal/Abdominal: Reports: no symptoms, Denies: abdomen distended, abdominal pain, black stools, tarry stools, blood in stool, constipated, diarrhea, difficulty swallowing, nausea, poor appetite, poor fluid intake, rectal bleeding, vomiting, other Genitourinary: Reports: no symptoms, Denies: burning, discharge, frequency, flank pain, hematuria, incontinence, pain, urgency, other Neurologic/Psychiatric: Reports: no symptoms, Denies: anxiety, depressed, emotional problems, headache, numbness, paresthesia, pre-existing deficit, seizure, tingling, tremors, weakness, other Endocrine: Reports: no symptoms, Denies: excessive sweating, flushing, intolerance to cold, intolerance to heat, increased hunger, increased thirst, increased urine, unexplained weight gain, unexplained weight loss, other Hematologic/Lymphatic: Reports: anemia Allergies: Coded Allergies: No Known Allergies (Verified , NONE, 04/29/17) Subjective afebrile, nad, anemia stable Objective Last 24 Hour Vital Signs Date Time Temp Pulse Resp B/P (MAP) Pulse Ox O2 Delivery O2 Flow Rate FiO2 1/4/18 16:00 97.1 84 20 108/72 100 11/27/17 09:00 90 115/70 11/27/17 08:00 97.1 90 20 115/70 99 Room Air 11/27/17 07:00 Room Air 11/27/17 07:00 95 Room Air 11/27/17 04:00 98.4 89 18 141/75 100 11/27/17 04:00 100 Room Air 11/27/17 00:00 99 Room Air 11/27/17 00:00 97.3 96 20 137/87 99 Room Air 11/26/17 21:32 Room Air 11/26/17 21:32 94 Room Air 11/26/17 20:58 96 113/80 11/26/17 20:00 98 Room Air 11/26/17 20:00 98.2 96 20 113/80 98 Room Air Intake and Output 11/26/17 11/27/17 19:00 07:00 Intake Total 655 ml 2165.0 ml Output Total 900 ml 1700 ml Balance -245 ml 465.0 ml Intake Oral 600 ml 1400 ml IV Total 55 ml 765.0 ml Output Urine Total 900 ml 1700 ml Laboratory Tests 11/27/17 05:00: White Blood Count 10.0, Red Blood Count 3.29L, Hemoglobin 10.2L, Hematocrit 33.6L, Mean Corpuscular Volume 102H, Mean Corpuscular Hemoglobin 31.0, Mean Corpuscular Hemoglobin Concent 30.4L, Red Cell Distribution Width 12.0, Platelet Count 201, Mean Platelet Volume 8.5, Neutrophils (%) (Auto) 68.0, Lymphocytes (%) (Auto) 23.9, Monocytes (%) (Auto) 6.9, Eosinophils (%) (Auto) 0.8, Basophils (%) (Auto) 0.4, Sodium Level 122L, Potassium Level 4.2, Chloride Level 84L, Carbon Dioxide Level 29, Anion Gap 9, Blood Urea Nitrogen 35H, Creatinine 2.6H, Estimat Glomerular Filtration Rate 24.7, Glucose Level 886*H, Uric Acid 4.8, Calcium Level 6.8L, Phosphorus Level 3.8, Magnesium Level 1.8, Total Bilirubin 0.4, Gamma Glutamyl Transpeptidase 297H, Aspartate Amino Transf (AST/SGOT) 58H, Alanine Aminotransferase (ALT/SGPT) 44, Alkaline Phosphatase 251H, Total Creatine Kinase 35, C-Reactive Protein, Quantitative < 0.4, Pro-B- Type Natriuretic Peptide 108, Total Protein 7.3, Albumin 2.9L, Globulin 4.4, Albumin/Globulin Ratio 0.7L, Hepatitis A Antibody Total [Pending], Hepatitis B Surface Antigen [Pending], Hepatitis B Surface Antibody, Quant [Pending], Hepatitis B Core Total Antibody [Pending], Hepatitis C Antibody [Pending], HIV ( 1&2) Antibody Rapid Negative Height (Feet): 5 Height (Inches): 6.00 Weight (Pounds): 108 General Appearance: alert EENT: TMs normal Neck: supple Cardiovascular: normal rate Respiratory/Chest: lungs clear Abdomen: non tender Extremities: non-tender Edema: no edema noted Leg (L), no edema noted Leg (R) Edema: mild edema Neurologic: no motor/sensory deficits Roge Chaudhary Nov 27, 2017 18:51
[2017-11-27 20:00] VITALS: BP 117/85
--- NOTE | 2017-11-27 20:34 | Pulmonology Progress Note ---
Assessment/Plan Problems: (1) Intractable vomiting (2) HTN (hypertension) (3) CIERA (acute kidney injury) (4) Seizure disorder (5) Gastroparesis due to DM Assessment/Plan check labs ID note reivewed, wbc lower contrinue abx until cultures come back negative IV zofran renal w/u Subjective ROS Limited/Unobtainable: No Constitutional: Reports: no symptoms HEENT: Repors: no symptoms Respiratory: Reports: no symptoms Allergies: Coded Allergies: No Known Allergies (Verified , NONE, 04/29/17) Objective Last 24 Hour Vital Signs Date Time Temp Pulse Resp B/P (MAP) Pulse Ox O2 Delivery O2 Flow Rate FiO2 11/27/17 16:00 97.1 84 20 108/72 100 11/27/17 09:00 90 115/70 11/27/17 08:00 97.1 90 20 115/70 99 Room Air 11/27/17 07:00 Room Air 11/27/17 07:00 95 Room Air 11/27/17 04:00 98.4 89 18 141/75 100 11/27/17 04:00 100 Room Air 11/27/17 00:00 99 Room Air 11/27/17 00:00 97.3 96 20 137/87 99 Room Air 11/26/17 21:32 Room Air 11/26/17 21:32 94 Room Air 11/26/17 20:58 96 113/80 Intake and Output 11/26/17 11/27/17 19:00 07:00 Intake Total 655 ml 2165.0 ml Output Total 900 ml 1700 ml Balance -245 ml 465.0 ml Intake Oral 600 ml 1400 ml IV Total 55 ml 765.0 ml Output Urine Total 900 ml 1700 ml Objective General Appearance: WD/WN HEENT: normocephalic, atraumatic Respiratory/Chest: chest wall non-tender, lungs clear Abdomen: normal bowel sounds, soft, non tender Genitourinary: normal external genitalia Skin: no lesions Microbiology Date/Time Source Procedure Growth Status 11/25/17 16:00 Blood Blood Culture - Preliminary NO GROWTH AFTER 24 HOURS Resulted 11/25/17 15:38 Blood Blood Culture - Preliminary NO GROWTH AFTER 24 HOURS Resulted Laboratory Tests 11/27/17 05:00: White Blood Count 10.0, Red Blood Count 3.29L, Hemoglobin 10.2L, Hematocrit 33.6L, Mean Corpuscular Volume 102H, Mean Corpuscular Hemoglobin 31.0, Mean Corpuscular Hemoglobin Concent 30.4L, Red Cell Distribution Width 12.0, Platelet Count 201, Mean Platelet Volume 8.5, Neutrophils (%) (Auto) 68.0, Lymphocytes (%) (Auto) 23.9, Monocytes (%) (Auto) 6.9, Eosinophils (%) (Auto) 0.8, Basophils (%) (Auto) 0.4, Sodium Level 122L, Potassium Level 4.2, Chloride Level 84L, Carbon Dioxide Level 29, Anion Gap 9, Blood Urea Nitrogen 35H, Creatinine 2.6H, Estimat Glomerular Filtration Rate 24.7, Glucose Level 886*H, Uric Acid 4.8, Calcium Level 6.8L, Phosphorus Level 3.8, Magnesium Level 1.8, Total Bilirubin 0.4, Gamma Glutamyl Transpeptidase 297H, Aspartate Amino Transf (AST/SGOT) 58H, Alanine Aminotransferase (ALT/SGPT) 44, Alkaline Phosphatase 251H, Total Creatine Kinase 35, C-Reactive Protein, Quantitative < 0.4, Pro-B- Type Natriuretic Peptide 108, Total Protein 7.3, Albumin 2.9L, Globulin 4.4, Albumin/Globulin Ratio 0.7L, Hepatitis A Antibody Total [Pending], Hepatitis B Surface Antigen [Pending], Hepatitis B Surface Antibody, Quant [Pending], Hepatitis B Core Total Antibody [Pending], Hepatitis C Antibody [Pending], HIV ( 1&2) Antibody Rapid Negative Current Medications Medications (Trade) Dose Ordered Sig/Mateo Route PRN Reason Start Time Stop Time Status Last Admin Dose Admin Acetaminophen (Tylenol) 650 mg Q4H PRN ORAL Mild Pain/Temp > 100.5 11/26/17 11:00 12/23/17 10:59 Amlodipine Besylate (Norvasc) 5 mg Q12HR ORAL 11/26/17 21:00 12/24/17 20:59 Aspirin (ASA) 81 mg DAILY ORAL 11/27/17 09:00 12/24/17 18:59 Clonidine HCl (Catapres) 0.1 mg Q4H PRN ORAL bp over 170 syst 11/26/17 11:00 12/26/17 10:59 Dextrose (Dextrose 50%) STAT PRN IV Hypoglycemia 11/26/17 11:00 12/23/17 10:59 Divalproex Sodium (Depakote ER) 1,000 mg QHS ORAL 11/26/17 21:00 12/23/17 20:59 11/26/17 20:57 Fluconazole (Diflucan) 200 mg DAILY ORAL 11/26/17 14:00 12/03/17 13:59 Heparin Sodium (Porcine) (Heparin 5000 units/ml) 5,000 units EVERY 12 HOURS SUBQ 11/26/17 21:00 12/23/17 20:59 11/26/17 21:00 Insulin Aspart (NovoLOG) BEFORE MEALS AND HS SUBQ 11/26/17 11:30 12/24/17 06:29 11/27/17 17:26 Insulin Detemir (Levemir) 10 units Q12HR SUBQ 11/26/17 21:00 12/25/17 09:59 11/27/17 09:20 Lorazepam (Ativan) 1 mg Q8H PRN ORAL For Anxiety 11/26/17 11:00 12/03/17 10:59 11/26/17 20:58 Nitroglycerin (Ntg) 0.4 mg Q5MIN X 3 DOSES PRN SL chest pain 11/26/17 10:45 12/23/17 14:29 Ondansetron HCl (Zofran) 4 mg Q6H PRN IVP Nausea & Vomiting 11/26/17 11:00 12/25/17 10:59 Pantoprazole (Protonix) 40 mg DAILY ORAL 11/27/17 09:00 12/24/17 08:59 Piperacillin Sod/ Tazobactam Sod 3.375 gm/Sodium Chloride 110 ml @ 27.5 mls/hr Q8HR@0100,0900,1700 IVPB 11/27/17 17:00 12/03/17 16:59 11/27/17 17:29 Polyethylene Glycol (Miralax) 17 gm DAILYPRN PRN ORAL Constipation 11/26/17 11:00 12/23/17 10:59 Sodium Chloride 1,000 ml @ 100 mls/hr Q10H IV 11/26/17 10:45 12/26/17 10:29 11/27/17 17:25 Temazepam (Restoril) 15 mg HSPRN PRN ORAL Insomnia 11/26/17 21:00 12/03/17 20:59 11/26/17 17:11 MILA ALINEZ Nov 27, 2017 20:34
[2017-11-27] MEDS: Depakote ER 500mg tab ORAL SCH (21:13)
[2017-11-27 21:46] LABS: FERRITIN 126 NG/ML (8-388)
[2017-11-27 22:00] LABS: % IRON SATURATION 41 % (15-50); IRON 75 ug/dL (50-175); TOTAL IRON BINDING CAPACITY 182 ug/dL (250-450)
[2017-11-28] VITALS: BP 121/77
[2017-11-28 04:00] VITALS: BP 120/81
[2017-11-28] MEDS: NovoLOG Insulin Flexpen SUBQ SCH ×4 (06:22→22:01)
[2017-11-28 07:40] LABS: BASOPHILS % (AUTO) 0.7 % (0.0-2.0); EOSINOPHILS % (AUTO) 2.3 % (0.0-3.0); HEMATOCRIT 26.7 % (37.0-47.0); LYMPHOCYTES % (AUTO) 40.9 % (20.0-45.0); MEAN CORPUSCULAR VOLUME 97 FL (80-99); MONOCYTES % (AUTO) 7.6 % (1.0-10.0); NEUTROPHILS % (AUTO) 48.5 % (45.0-75.0); PLATELET COUNT 156 K/UL (150-450); RED BLOOD COUNT 2.77 M/UL (4.20-5.40); RED CELL DISTRIBUTION WIDTH 11.2 % (11.6-14.8); WHITE BLOOD COUNT 8.3 K/UL (4.8-10.8)
[2017-11-28 07:52] LABS: ALANINE AMINOTRANSFERASE 28 U/L (12-78); ALBUMIN 2.5 G/DL (3.4-5.0); ALBUMIN/GLOBULIN RATIO 0.7 (1.0-2.7); ALKALINE PHOSPHATASE 173 U/L (46-116); ANION GAP 6 mmol/L (5-15); ASPARTATE AMINO TRANSFERASE 21 U/L (15-37); BILIRUBIN,TOTAL 0.2 MG/DL (0.2-1.0); BLOOD UREA NITROGEN 22 mg/dL (7-18); CALCIUM 7.1 MG/DL (8.5-10.1); CARBON DIOXIDE 31 MMOL/L (21-32); CHLORIDE 103 MMOL/L (98-107); CREATININE 1.9 MG/DL (0.55-1.30); PHOSPHORUS 3.9 MG/DL (2.5-4.9); POTASSIUM 3.5 MMOL/L (3.5-5.1); SODIUM 140 MMOL/L (136-145)
[2017-11-28] MEDS: Levemir Flexpen SUBQ SCH ×2 (09:00→22:00)
[2017-11-28] MEDS: Aspirin Baby 81mg ORAL SCH (09:00)
[2017-11-28] MEDS: Dyna-Hex 2% Top Sol 2oz TOPIC SCH (09:00)
[2017-11-28] MEDS: Heparin 5000 units/ml inj SUBQ SCH ×2 (09:00→21:58)
[2017-11-28] MEDS: Fluconazole 100mg tab ORAL SCH (09:00)
--- NOTE | 2017-11-28 09:26 | Pulmonology Progress Note ---
Assessment/Plan Assessment/Plan ASSESSMENT DKA DOOC ( brittle with extremely labile blood sugar) Noncompliance leukocytosis resolved CIERA on CKD gastroparesis 2 to DM OOC HTN seizure disorder chronic pancreatitis cocaine abuse mild anemia hypomagnesemia PLAN OF CARE MS floor IVF BS management with levemir and SSI prn, endo follows, HgA1c- 11.7 not at goal Encourage and stress compliance with insulin regimen at home Monitor renal parameters, lytes, avoid nephrotoxic, renal US no hydro, normal echogenicity bilaterally CT chest noted, worsening thickening of esophageal wall last EGD c/w esophagitis, ID follows empiric abx, leukocytosis resolved, Fluconazole was added empirically to cover for possible Melany GI follows a/emetic prn -Zofran and Reglan - for persistent vomiting HIV status negative hep panel pending BP management, Clonidine prn CT head no acute IC pathology seizure precautions, continue Depakote psych eval requested Monitor HH, goal to keep Hgb above 8 DVT GI prophylaxis Mg replaced as per nephro job counselor on abstinence from illicit street drugs dc plan reinforce compliance with meds case discussed and evaluated by supervising physician Subjective Allergies: Coded Allergies: No Known Allergies (Verified , NONE, 04/29/17) Subjective BS still high creat trending down Objective Last 24 Hour Vital Signs Date Time Temp Pulse Resp B/P (MAP) Pulse Ox O2 Delivery O2 Flow Rate FiO2 11/28/17 04:00 97.7 84 18 120/81 100 11/28/17 00:00 97.7 80 20 121/77 100 Room Air 11/27/17 21:00 84 108/72 11/27/17 20:00 98.0 83 20 117/85 100 Room Air 11/27/17 16:00 97.1 84 20 108/72 100 Intake and Output 11/27/17 11/28/17 19:00 07:00 Intake Total 1017.5 ml 1370.0 ml Output Total 1400 ml Balance 1017.5 ml -30.0 ml Intake Oral 580 ml 560 ml IV Total 437.5 ml 810.0 ml Output Urine Total 1400 ml General Appearance: no acute distress HEENT: normocephalic, atraumatic, anicteric, mucous membranes moist Respiratory/Chest: lungs clear, no respiratory distress, no accessory muscle use Cardiovascular: normal peripheral pulses, normal rate, no JVD, other - LUE PICC intact Abdomen: normal bowel sounds, soft, non tender, non distended Extremities: no edema, pedal pulses normal Neurologic/Psychiatric: no motor/sensory deficits, alert, responsive Musculoskeletal: normal muscle bulk Microbiology Date/Time Source Procedure Growth Status 11/25/17 16:00 Blood Blood Culture - Preliminary NO GROWTH AFTER 48 HOURS Resulted 11/25/17 15:38 Blood Blood Culture - Preliminary NO GROWTH AFTER 48 HOURS Resulted Laboratory Tests 11/27/17 20:15: Reticulocyte Count 0.8, Hemoglobin A [Pending], Hemoglobin A2 [Pending], Hemoglobin C [Pending], Hemoglobin F () [Pending], Hemoglobin S [Pending], Variant Hemoglobin [Pending], Hemoglobin Electrophoresis Interp [Pending], Hemoglobin Interpretation [Pending], Hemoglobin Solubility [Pending], Fibrinogen 283, Iron Level 75, Total Iron Binding Capacity 182L, Percent Iron Saturation 41, Unsaturated Iron Binding 107L, Ferritin 126, Vitamin B12 Level 1617H, Folate 16.7, Thyroid Stimulating Hormone (TSH) 1.188 11/28/17 05:00: White Blood Count 8.3, Red Blood Count 2.77L, Hemoglobin 9.0L, Hematocrit 26.7L , Mean Corpuscular Volume 97, Mean Corpuscular Hemoglobin 32.7H, Mean Corpuscular Hemoglobin Concent 33.9, Red Cell Distribution Width 11.2L, Platelet Count 156, Mean Platelet Volume 9.0, Neutrophils (%) (Auto) 48.5, Lymphocytes (%) (Auto) 40.9, Monocytes (%) (Auto) 7.6, Eosinophils (%) (Auto) 2.3, Basophils (%) (Auto) 0.7, Sodium Level 140#, Potassium Level 3.5, Chloride Level 103, Carbon Dioxide Level 31, Anion Gap 6, Blood Urea Nitrogen 22H, Creatinine 1.9H, Estimat Glomerular Filtration Rate 35.5, Glucose Level 160#H, Uric Acid 3.3, Calcium Level 7.1L, Phosphorus Level 3.9, Magnesium Level 1.5L, Total Bilirubin 0.2, Aspartate Amino Transf (AST/SGOT) 21, Alanine Aminotransferase (ALT/SGPT) 28, Alkaline Phosphatase 173H, C-Reactive Protein, Quantitative < 0.4, Pro-B-Type Natriuretic Peptide 97, Total Protein 6.3L, Albumin 2.5L, Globulin 3.8, Albumin/Globulin Ratio 0.7L, HIV-1 RNA (PCR) log10 Value [Pending], HIV-1 RNA Ultraquantitative (PCR) [Pending], HIV (1&2) Antibody Rapid Negative Current Medications Medications (Trade) Dose Ordered Sig/Mateo Route PRN Reason Start Time Stop Time Status Last Admin Dose Admin Acetaminophen (Tylenol) 650 mg Q4H PRN ORAL Mild Pain/Temp > 100.5 11/26/17 11:00 12/23/17 10:59 Amlodipine Besylate (Norvasc) 5 mg Q12HR ORAL 11/26/17 21:00 12/24/17 20:59 Aspirin (ASA) 81 mg DAILY ORAL 11/27/17 09:00 12/24/17 18:59 Chlorhexidine Gluconate (Mara-Hex 2%) 1 applic DAILY@0900 TOPIC 11/28/17 09:00 12/28/17 08:59 Clonidine HCl (Catapres) 0.1 mg Q4H PRN ORAL bp over 170 syst 11/26/17 11:00 12/26/17 10:59 Dextrose (Dextrose 50%) STAT PRN IV Hypoglycemia 11/26/17 11:00 12/23/17 10:59 Divalproex Sodium (Depakote ER) 1,000 mg QHS ORAL 11/26/17 21:00 12/23/17 20:59 11/27/17 21:13 Fluconazole (Diflucan) 200 mg DAILY ORAL 11/26/17 14:00 12/03/17 13:59 Heparin Sodium (Porcine) (Heparin 5000 units/ml) 5,000 units EVERY 12 HOURS SUBQ 11/26/17 21:00 12/23/17 20:59 11/27/17 21:15 Insulin Aspart (NovoLOG) BEFORE MEALS AND HS SUBQ 11/26/17 11:30 12/24/17 06:29 11/28/17 06:22 Insulin Detemir (Levemir) 10 units Q12HR SUBQ 11/26/17 21:00 12/25/17 09:59 11/27/17 21:16 Lorazepam (Ativan) 1 mg Q8H PRN ORAL For Anxiety 11/26/17 11:00 12/03/17 10:59 11/26/17 20:58 Nitroglycerin (Ntg) 0.4 mg Q5MIN X 3 DOSES PRN SL chest pain 11/26/17 10:45 12/23/17 14:29 Ondansetron HCl (Zofran) 4 mg Q6H PRN IVP Nausea & Vomiting 11/26/17 11:00 12/25/17 10:59 Pantoprazole (Protonix) 40 mg DAILY ORAL 11/27/17 09:00 12/24/17 08:59 Piperacillin Sod/ Tazobactam Sod 3.375 gm/Sodium Chloride 110 ml @ 27.5 mls/hr Q8HR@0100,0900,1700 IVPB 11/27/17 17:00 12/03/17 16:59 11/27/17 23:41 Polyethylene Glycol (Miralax) 17 gm DAILYPRN PRN ORAL Constipation 11/26/17 11:00 12/23/17 10:59 Sodium Chloride 1,000 ml @ 100 mls/hr Q10H IV 11/26/17 10:45 12/26/17 10:29 11/27/17 23:42 Temazepam (Restoril) 15 mg HSPRN PRN ORAL Insomnia 11/26/17 21:00 12/03/17 20:59 11/27/17 21:12 [facility]Cailin NP Nov 28, 2017 09:26
[2017-11-28] MEDS: Piperacillin/Tazobactam 3.375 GM in NS 110 ML IVPB SCH (09:31)
--- NOTE | 2017-11-28 11:14 | GI Progress Note ---
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; K31.84 - Gastroparesis SNOMED: 64394637, 074117458 (2) Non compliance with medical treatment ICD Codes: Z91.19 - Patient's noncompliance with other medical treatment and regimen SNOMED: 1095662 (3) Diarrhea ICD Codes: R19.7 - Diarrhea, unspecified SNOMED: 05060216 (4) Nausea alone ICD Codes: R11.0 - Nausea SNOMED: 677797082 (5) Intractable nausea and vomiting ICD Codes: R11.2 - Nausea with vomiting, unspecified SNOMED: 529770675, 177800623 (6) Abdominal pain ICD Codes: R10.9 - Unspecified abdominal pain SNOMED: 83283492 (7) Esophagitis ICD Codes: K20.9 - Esophagitis, unspecified SNOMED: 56956147 (8) Severe malnutrition ICD Codes: E43 - Unspecified severe protein-calorie malnutrition SNOMED: 75224776 (9) Cocaine abuse ICD Codes: F14.10 - Cocaine abuse, uncomplicated SNOMED: 22867995 Status: unchanged Status Narrative Discussed with Dr. Vickers. Assessment/Plan defer GI procedures given recent EGD in january 2017 >> esophagitis zofran prn, reglan for persistent vomiting adv to ADA diet DM mgmt ppi daily abx monitor H&H, prn transfusions fu labs Subjective Gastrointestinal/Abdominal: Reports: abdominal pain Subjective generalized pain Objective Last 24 Hour Vital Signs Date Time Temp Pulse Resp B/P (MAP) Pulse Ox O2 Delivery O2 Flow Rate FiO2 11/28/17 04:00 97.7 84 18 120/81 100 11/28/17 00:00 97.7 80 20 121/77 100 Room Air 11/27/17 21:00 84 108/72 11/27/17 20:00 98.0 83 20 117/85 100 Room Air 11/27/17 16:00 97.1 84 20 108/72 100 Intake and Output 11/27/17 11/28/17 19:00 07:00 Intake Total 1017.5 ml 1370.0 ml Output Total 1400 ml Balance 1017.5 ml -30.0 ml Intake Oral 580 ml 560 ml IV Total 437.5 ml 810.0 ml Output Urine Total 1400 ml Laboratory Tests Test 11/27/17 20:15 11/28/17 05:00 Reticulocyte Count 0.8 % (0.0-2.0) Hemoglobin A Pending Hemoglobin A2 Pending Hemoglobin C Pending Hemoglobin F () Pending Hemoglobin S Pending Variant Hemoglobin Pending Hemoglobin Electrophoresis Interp Pending Hemoglobin Interpretation Pending Hemoglobin Solubility Pending Fibrinogen 283 mg/dL (200-400) Iron Level 75 ug/dL (50-175) Total Iron Binding Capacity 182 ug/dL (250-450) L Percent Iron Saturation 41 % (15-50) Unsaturated Iron Binding 107 ug/dL (112-346) L Ferritin 126 NG/ML (8-388) Vitamin B12 Level 1617 PG/ML (193-986) H Folate 16.7 NG/ML (8.6-58.9) Thyroid Stimulating Hormone (TSH) 1.188 uiU/mL (0.358-3.740) White Blood Count 8.3 K/UL (4.8-10.8) Red Blood Count 2.77 M/UL (4.20-5.40) L Hemoglobin 9.0 G/DL (12.0-16.0) L Hematocrit 26.7 % (37.0-47.0) L Mean Corpuscular Volume 97 FL (80-99) Mean Corpuscular Hemoglobin 32.7 PG (27.0-31.0) H Mean Corpuscular Hemoglobin Concent 33.9 G/DL (32.0-36.0) Red Cell Distribution Width 11.2 % (11.6-14.8) L Platelet Count 156 K/UL (150-450) Mean Platelet Volume 9.0 FL (6.5-10.1) Neutrophils (%) (Auto) 48.5 % (45.0-75.0) Lymphocytes (%) (Auto) 40.9 % (20.0-45.0) Monocytes (%) (Auto) 7.6 % (1.0-10.0) Eosinophils (%) (Auto) 2.3 % (0.0-3.0) Basophils (%) (Auto) 0.7 % (0.0-2.0) Sodium Level 140 MMOL/L (136-145) # Potassium Level 3.5 MMOL/L (3.5-5.1) Chloride Level 103 MMOL/L (98-107) Carbon Dioxide Level 31 MMOL/L (21-32) Anion Gap 6 mmol/L (5-15) Blood Urea Nitrogen 22 mg/dL (7-18) H Creatinine 1.9 MG/DL (0.55-1.30) H Estimat Glomerular Filtration Rate 35.5 mL/min (>60) Glucose Level 160 MG/DL (74-106) #H Uric Acid 3.3 MG/DL (2.6-7.2) Calcium Level 7.1 MG/DL (8.5-10.1) L Phosphorus Level 3.9 MG/DL (2.5-4.9) Magnesium Level 1.5 MG/DL (1.8-2.4) L Total Bilirubin 0.2 MG/DL (0.2-1.0) Aspartate Amino Transf (AST/SGOT) 21 U/L (15-37) Alanine Aminotransferase (ALT/SGPT) 28 U/L (12-78) Alkaline Phosphatase 173 U/L (46-116) H C-Reactive Protein, Quantitative < 0.4 mg/dL (0.00-0.90) Pro-B-Type Natriuretic Peptide 97 pg/mL (0-125) Total Protein 6.3 G/DL (6.4-8.2) L Albumin 2.5 G/DL (3.4-5.0) L Globulin 3.8 g/dL Albumin/Globulin Ratio 0.7 (1.0-2.7) L HIV-1 RNA (PCR) log10 Value Pending HIV-1 RNA Ultraquantitative (PCR) Pending HIV (1&2) Antibody Rapid Negative (NEGATIVE) Height (Feet): 5 Height (Inches): 6.00 Weight (Pounds): 113 General Appearance: WD/WN, no apparent distress, alert, thin Cardiovascular: normal rate Respiratory/Chest: normal breath sounds, no respiratory distress Abdominal Exam: normal bowel sounds, non tender, soft Extremities: normal range of motion, non-tender Muriel Serra N.PHafsa Nov 28, 2017 11:14
--- NOTE | 2017-11-28 12:09 | Infectious Diseases Prog Note ---
Assessment/Plan Assessment/Plan Abx: IV Zosyn 1/2- Assessment: DKA Possible sepsis- No PNA, u/a neg, BCx NTD- no obvious source of infection indentified thus far -CT chest: Prominent esophageal wall thickening involving the mid and distal thoracic esophagus. This seems progressed compared to 02/04/2017. Differential considerations include esophagitis or esophageal neoplasm. Correlation with upper GI study or direct visualization with endoscopy is recommended. No focal airspace consolidation, pleural effusion or pneumothorax. Unchanged findings suggestive of chronic, calcified pancreatitis. Coronary artery calcification. Leukocytosis (up to 25)- resolved-suspect reactive to DKA -afebrile -u/a no pyuria -Bcx NTD N/v diarrhea- ?2ry to DKA- improving CIERA, improving ESophageal wall thickening and odynophagia, recent esopaghitis 01/2017 (EGD)- r/ o malignancy- r/o infectious esophagitis (ie Melany) vs viral- -HIV 1/2 ab neg x2, VL p Transaminitis, improving -hep panel pendingm Hep Bc ab+ Chronic pancreaitis +UTox for coccaine Plan: -D/c empiric Zosyn #4 as no obvious source of infection -Continue empiric PO Fluconazole 200mg qd #3/ for esophagitis/odynophagia -f/u Influenza and stool cx, hep serologies -f/u cx -Monitor CBC/BMP, temperatures Thank you for this consultation. Will continue to follow along with you. Discussed with RN. Subjective Allergies: Coded Allergies: No Known Allergies (Verified , NONE, 04/29/17) Subjective afebrile no leukocytosis \Bcx NTD Objective Vital Signs Last 24 Hour Vital Signs Date Time Temp Pulse Resp B/P (MAP) Pulse Ox O2 Delivery O2 Flow Rate FiO2 11/28/17 04:00 97.7 84 18 120/81 100 11/28/17 00:00 97.7 80 20 121/77 100 Room Air 11/27/17 21:00 84 108/72 11/27/17 20:00 98.0 83 20 117/85 100 Room Air 11/27/17 16:00 97.1 84 20 108/72 100 Height (Feet): 5 Height (Inches): 6.00 Weight (Pounds): 113 Objective GENERAL: She is in no distress.chronically ill HEENT: no tongue thrush, difficult to examine pharynx PULMONARY: Decreased breath sounds. CARDIOVASCULAR: Regular rate. No S3 or S4. ABDOMEN: Soft, nontender, and nondistended. EXTREMITIES: A 1+ edema. Microbiology Date/Time Source Procedure Growth Status 11/25/17 16:00 Blood Blood Culture - Preliminary NO GROWTH AFTER 48 HOURS Resulted 11/25/17 15:38 Blood Blood Culture - Preliminary NO GROWTH AFTER 48 HOURS Resulted Laboratory Tests Test 11/27/17 20:15 11/28/17 05:00 Reticulocyte Count 0.8 % (0.0-2.0) Hemoglobin A Pending Hemoglobin A2 Pending Hemoglobin C Pending Hemoglobin F () Pending Hemoglobin S Pending Variant Hemoglobin Pending Hemoglobin Electrophoresis Interp Pending Hemoglobin Interpretation Pending Hemoglobin Solubility Pending Fibrinogen 283 mg/dL (200-400) Iron Level 75 ug/dL (50-175) Total Iron Binding Capacity 182 ug/dL (250-450) L Percent Iron Saturation 41 % (15-50) Unsaturated Iron Binding 107 ug/dL (112-346) L Ferritin 126 NG/ML (8-388) Vitamin B12 Level 1617 PG/ML (193-986) H Folate 16.7 NG/ML (8.6-58.9) Thyroid Stimulating Hormone (TSH) 1.188 uiU/mL (0.358-3.740) White Blood Count 8.3 K/UL (4.8-10.8) Red Blood Count 2.77 M/UL (4.20-5.40) L Hemoglobin 9.0 G/DL (12.0-16.0) L Hematocrit 26.7 % (37.0-47.0) L Mean Corpuscular Volume 97 FL (80-99) Mean Corpuscular Hemoglobin 32.7 PG (27.0-31.0) H Mean Corpuscular Hemoglobin Concent 33.9 G/DL (32.0-36.0) Red Cell Distribution Width 11.2 % (11.6-14.8) L Platelet Count 156 K/UL (150-450) Mean Platelet Volume 9.0 FL (6.5-10.1) Neutrophils (%) (Auto) 48.5 % (45.0-75.0) Lymphocytes (%) (Auto) 40.9 % (20.0-45.0) Monocytes (%) (Auto) 7.6 % (1.0-10.0) Eosinophils (%) (Auto) 2.3 % (0.0-3.0) Basophils (%) (Auto) 0.7 % (0.0-2.0) Sodium Level 140 MMOL/L (136-145) # Potassium Level 3.5 MMOL/L (3.5-5.1) Chloride Level 103 MMOL/L (98-107) Carbon Dioxide Level 31 MMOL/L (21-32) Anion Gap 6 mmol/L (5-15) Blood Urea Nitrogen 22 mg/dL (7-18) H Creatinine 1.9 MG/DL (0.55-1.30) H Estimat Glomerular Filtration Rate 35.5 mL/min (>60) Glucose Level 160 MG/DL (74-106) #H Uric Acid 3.3 MG/DL (2.6-7.2) Calcium Level 7.1 MG/DL (8.5-10.1) L Phosphorus Level 3.9 MG/DL (2.5-4.9) Magnesium Level 1.5 MG/DL (1.8-2.4) L Total Bilirubin 0.2 MG/DL (0.2-1.0) Aspartate Amino Transf (AST/SGOT) 21 U/L (15-37) Alanine Aminotransferase (ALT/SGPT) 28 U/L (12-78) Alkaline Phosphatase 173 U/L (46-116) H C-Reactive Protein, Quantitative < 0.4 mg/dL (0.00-0.90) Pro-B-Type Natriuretic Peptide 97 pg/mL (0-125) Total Protein 6.3 G/DL (6.4-8.2) L Albumin 2.5 G/DL (3.4-5.0) L Globulin 3.8 g/dL Albumin/Globulin Ratio 0.7 (1.0-2.7) L HIV-1 RNA (PCR) log10 Value Pending HIV-1 RNA Ultraquantitative (PCR) Pending HIV (1&2) Antibody Rapid Negative (NEGATIVE) Current Medications Medications (Trade) Dose Ordered Sig/Mateo Route PRN Reason Start Time Stop Time Status Last Admin Dose Admin Acetaminophen (Tylenol) 650 mg Q4H PRN ORAL Mild Pain/Temp > 100.5 11/26/17 11:00 12/23/17 10:59 Amlodipine Besylate (Norvasc) 5 mg Q12HR ORAL 11/26/17 21:00 12/24/17 20:59 Aspirin (ASA) 81 mg DAILY ORAL 11/27/17 09:00 12/24/17 18:59 Chlorhexidine Gluconate (Mara-Hex 2%) 1 applic DAILY@0900 TOPIC 11/28/17 09:00 12/28/17 08:59 Clonidine HCl (Catapres) 0.1 mg Q4H PRN ORAL bp over 170 syst 11/26/17 11:00 12/26/17 10:59 Dextrose (Dextrose 50%) STAT PRN IV Hypoglycemia 11/26/17 11:00 12/23/17 10:59 Divalproex Sodium (Depakote ER) 1,000 mg QHS ORAL 11/26/17 21:00 12/23/17 20:59 11/27/17 21:13 Fluconazole (Diflucan) 200 mg DAILY ORAL 11/26/17 14:00 12/03/17 13:59 Heparin Sodium (Porcine) (Heparin 5000 units/ml) 5,000 units EVERY 12 HOURS SUBQ 11/26/17 21:00 12/23/17 20:59 11/27/17 21:15 Insulin Aspart (NovoLOG) BEFORE MEALS AND HS SUBQ 11/26/17 11:30 12/24/17 06:29 11/28/17 06:22 Insulin Detemir (Levemir) 10 units Q12HR SUBQ 11/26/17 21:00 12/25/17 09:59 11/27/17 21:16 Lorazepam (Ativan) 1 mg Q8H PRN ORAL For Anxiety 11/26/17 11:00 12/03/17 10:59 11/26/17 20:58 Magnesium Sulfate 100 ml @ 100 mls/hr Q1H IVPB 11/28/17 10:30 11/28/17 14:29 11/28/17 11:39 Nitroglycerin (Ntg) 0.4 mg Q5MIN X 3 DOSES PRN SL chest pain 11/26/17 10:45 12/23/17 14:29 Ondansetron HCl (Zofran) 4 mg Q6H PRN IVP Nausea & Vomiting 11/26/17 11:00 12/25/17 10:59 Pantoprazole (Protonix) 40 mg DAILY ORAL 11/27/17 09:00 12/24/17 08:59 Piperacillin Sod/ Tazobactam Sod 3.375 gm/Sodium Chloride 110 ml @ 27.5 mls/hr Q8HR@0100,0900,1700 IVPB 11/27/17 17:00 12/03/17 16:59 11/28/17 09:31 Polyethylene Glycol (Miralax) 17 gm DAILYPRN PRN ORAL Constipation 11/26/17 11:00 12/23/17 10:59 Sodium Chloride 1,000 ml @ 100 mls/hr Q10H IV 11/26/17 10:45 12/26/17 10:29 11/27/17 23:42 Temazepam (Restoril) 15 mg HSPRN PRN ORAL Insomnia 11/26/17 21:00 12/03/17 20:59 11/27/17 21:12 Krista Che M.D. Nov 28, 2017 12:09
--- NOTE | 2017-11-28 14:09 | Nephrology Progress Note ---
Assessment/Plan Problem List: (1) ARF (acute renal failure) (2) Hyperglycemia Assessment: leading to low Na (3) Cocaine abuse Assessment renal failure ? acute , dehydration, ? Underlying CKD due to DM Cr lowering Dm , Hyperglycemia HTN SZ disorders Encephalopathy IDDM Urine + for Cocaine Plan Plan; DC Love Hydrate with saline Urine studies monitor renal parameters avoid nephrotoxics check BP and BS Stable for DC from renal stand Subjective ROS Limited/Unobtainable: No Constitutional: Reports: malaise Objective Objective Last 24 Hour Vital Signs Date Time Temp Pulse Resp B/P (MAP) Pulse Ox O2 Delivery O2 Flow Rate FiO2 11/28/17 04:00 97.7 84 18 120/81 100 11/28/17 00:00 97.7 80 20 121/77 100 Room Air 11/27/17 21:00 84 108/72 11/27/17 20:00 98.0 83 20 117/85 100 Room Air 11/27/17 16:00 97.1 84 20 108/72 100 Intake and Output 11/27/17 11/28/17 19:00 07:00 Intake Total 1017.5 ml 1370.0 ml Output Total 1400 ml Balance 1017.5 ml -30.0 ml Intake Oral 580 ml 560 ml IV Total 437.5 ml 810.0 ml Output Urine Total 1400 ml Laboratory Tests 11/27/17 20:15: Reticulocyte Count 0.8, Hemoglobin A [Pending], Hemoglobin A2 [Pending], Hemoglobin C [Pending], Hemoglobin F () [Pending], Hemoglobin S [Pending], Variant Hemoglobin [Pending], Hemoglobin Electrophoresis Interp [Pending], Hemoglobin Interpretation [Pending], Hemoglobin Solubility [Pending], Fibrinogen 283, Iron Level 75, Total Iron Binding Capacity 182L, Percent Iron Saturation 41, Unsaturated Iron Binding 107L, Ferritin 126, Vitamin B12 Level 1617H, Folate 16.7, Thyroid Stimulating Hormone (TSH) 1.188 11/28/17 05:00: White Blood Count 8.3, Red Blood Count 2.77L, Hemoglobin 9.0L, Hematocrit 26.7L , Mean Corpuscular Volume 97, Mean Corpuscular Hemoglobin 32.7H, Mean Corpuscular Hemoglobin Concent 33.9, Red Cell Distribution Width 11.2L, Platelet Count 156, Mean Platelet Volume 9.0, Neutrophils (%) (Auto) 48.5, Lymphocytes (%) (Auto) 40.9, Monocytes (%) (Auto) 7.6, Eosinophils (%) (Auto) 2.3, Basophils (%) (Auto) 0.7, Sodium Level 140#, Potassium Level 3.5, Chloride Level 103, Carbon Dioxide Level 31, Anion Gap 6, Blood Urea Nitrogen 22H, Creatinine 1.9H, Estimat Glomerular Filtration Rate 35.5, Glucose Level 160#H, Uric Acid 3.3, Calcium Level 7.1L, Phosphorus Level 3.9, Magnesium Level 1.5L, Total Bilirubin 0.2, Aspartate Amino Transf (AST/SGOT) 21, Alanine Aminotransferase (ALT/SGPT) 28, Alkaline Phosphatase 173H, C-Reactive Protein, Quantitative < 0.4, Pro-B-Type Natriuretic Peptide 97, Total Protein 6.3L, Albumin 2.5L, Globulin 3.8, Albumin/Globulin Ratio 0.7L, HIV-1 RNA (PCR) log10 Value [Pending], HIV-1 RNA Ultraquantitative (PCR) [Pending], HIV (1&2) Antibody Rapid Negative Height (Feet): 5 Height (Inches): 6.00 Weight (Pounds): 113 General Appearance: no apparent distress Cardiovascular: normal rate Respiratory/Chest: decreased breath sounds Abdomen: soft Objective no change JACKELIN KOEHLER Nov 28, 2017 14:09
--- NOTE | 2017-11-28 14:20 | General Progress Note ---
Assessment/Plan Problem List: (1) Hypoglycemia ICD Codes: E16.2 - Hypoglycemia, unspecified SNOMED: 868755816 (2) Altered level of consciousness ICD Codes: R40.4 - Transient alteration of awareness SNOMED: 7819162 (3) Nausea, vomiting, and diarrhea ICD Codes: R11.2 - Nausea with vomiting, unspecified; R19.7 - Diarrhea, unspecified SNOMED: 9571536 (4) Intractable vomiting ICD Codes: R11.10 - Vomiting, unspecified SNOMED: 113802417, 371569470 (5) Severe malnutrition ICD Codes: E43 - Unspecified severe protein-calorie malnutrition SNOMED: 73875002 (6) Diabetes ICD Codes: E11.9 - Type 2 diabetes mellitus without complications SNOMED: 54803537 (7) Psychiatric disorder ICD Codes: F99 - Mental disorder, not otherwise specified SNOMED: 12563775, 755156866 Status: stable, progressing Assessment/Plan ot pt diet bs control antiemetic cbc bmp am dc plan Subjective Constitutional: Reports: weakness Allergies: Coded Allergies: No Known Allergies (Verified , NONE, 04/29/17) All Systems: reviewed and negative except above Subjective sleepy calm Objective Last 24 Hour Vital Signs Date Time Temp Pulse Resp B/P (MAP) Pulse Ox O2 Delivery O2 Flow Rate FiO2 11/28/17 04:00 97.7 84 18 120/81 100 11/28/17 00:00 97.7 80 20 121/77 100 Room Air 11/27/17 21:00 84 108/72 11/27/17 20:00 98.0 83 20 117/85 100 Room Air 11/27/17 16:00 97.1 84 20 108/72 100 Intake and Output 11/27/17 11/28/17 19:00 07:00 Intake Total 1017.5 ml 1370.0 ml Output Total 1400 ml Balance 1017.5 ml -30.0 ml Intake Oral 580 ml 560 ml IV Total 437.5 ml 810.0 ml Output Urine Total 1400 ml Laboratory Tests 11/27/17 20:15: Reticulocyte Count 0.8, Hemoglobin A [Pending], Hemoglobin A2 [Pending], Hemoglobin C [Pending], Hemoglobin F () [Pending], Hemoglobin S [Pending], Variant Hemoglobin [Pending], Hemoglobin Electrophoresis Interp [Pending], Hemoglobin Interpretation [Pending], Hemoglobin Solubility [Pending], Fibrinogen 283, Iron Level 75, Total Iron Binding Capacity 182L, Percent Iron Saturation 41, Unsaturated Iron Binding 107L, Ferritin 126, Vitamin B12 Level 1617H, Folate 16.7, Thyroid Stimulating Hormone (TSH) 1.188 11/28/17 05:00: White Blood Count 8.3, Red Blood Count 2.77L, Hemoglobin 9.0L, Hematocrit 26.7L , Mean Corpuscular Volume 97, Mean Corpuscular Hemoglobin 32.7H, Mean Corpuscular Hemoglobin Concent 33.9, Red Cell Distribution Width 11.2L, Platelet Count 156, Mean Platelet Volume 9.0, Neutrophils (%) (Auto) 48.5, Lymphocytes (%) (Auto) 40.9, Monocytes (%) (Auto) 7.6, Eosinophils (%) (Auto) 2.3, Basophils (%) (Auto) 0.7, Sodium Level 140#, Potassium Level 3.5, Chloride Level 103, Carbon Dioxide Level 31, Anion Gap 6, Blood Urea Nitrogen 22H, Creatinine 1.9H, Estimat Glomerular Filtration Rate 35.5, Glucose Level 160#H, Uric Acid 3.3, Calcium Level 7.1L, Phosphorus Level 3.9, Magnesium Level 1.5L, Total Bilirubin 0.2, Aspartate Amino Transf (AST/SGOT) 21, Alanine Aminotransferase (ALT/SGPT) 28, Alkaline Phosphatase 173H, C-Reactive Protein, Quantitative < 0.4, Pro-B-Type Natriuretic Peptide 97, Total Protein 6.3L, Albumin 2.5L, Globulin 3.8, Albumin/Globulin Ratio 0.7L, HIV-1 RNA (PCR) log10 Value [Pending], HIV-1 RNA Ultraquantitative (PCR) [Pending], HIV (1&2) Antibody Rapid Negative Height (Feet): 5 Height (Inches): 6.00 Weight (Pounds): 113 General Appearance: lethargic EENT: normal ENT inspection Neck: normal alignment Cardiovascular: normal peripheral pulses, normal rate, regular rhythm Respiratory/Chest: chest wall non-tender, lungs clear, normal breath sounds Abdomen: normal bowel sounds, non tender, soft Extremities: normal inspection Edema: no edema noted Arm (L), no edema noted Arm (R), no edema noted Leg (L), no edema noted Leg (R), no edema noted Pedal (L), no edema noted Pedal (R), no edema noted Generalized Neurologic: responsive, motor weakness Skin: normal pigmentation, warm/dry ENOCH GONZALEZ Nov 28, 2017 14:20
--- NOTE | 2017-11-28 19:36 | General Progress Note ---
Assessment/Plan Assessment/Plan ASSESSMENT AND RECOMMENDATIONS: #. Leukocytosis --> on antibiotics, has improved, appreciate id recs, no evidence of active infection #. Anemia of chronic disease --> closely monitor and anemia w/u to be ordered at this time since downtrending --> w/u has been reviewed, no iron deficiency or hemolysis is noted #. Hyperglycemia due to DM. The patient with an elevated blood sugar of 509. Continue to closely monitor. --> Consult with Dr. Early for further management. BS was >500, nonketotic. The patient has been refusing care. --> She has been noncompliant in the past. #. CIERA on CKD and Hyperproteinemia. nephro recs have been reviewed #. Noncompliance history. We recommended compliance as the patient has been admitted multiple times with hyperglycemia. #. Nausea, vomiting, and diarrhea likely related to poor control of underlying disorders --> GI follow #. Hypertension. Currently, the patient is normotensive. #. Subcutaneous heparin for DVT prophylaxis Subjective Constitutional: Denies: no symptoms, chills, diaphoresis, fever, malaise, weakness, other HEENT: Denies: no symptoms, eye pain, blurred vision, tearing, double vision, ear pain, ear discharge, nose pain, nose congestion, throat pain, throat swelling, mouth pain, mouth swelling, other Cardiovascular: Denies: no symptoms, chest pain, edema, irregular heart rate, lightheadedness, palpitations, syncope, other Respiratory: Denies: no symptoms, cough, orthopnea, shortness of breath, SOB with excertion, SOB at rest, sputum, stridor, wheezing, other Gastrointestinal/Abdominal: Denies: no symptoms, abdomen distended, abdominal pain, black stools, tarry stools, blood in stool, constipated, diarrhea, difficulty swallowing, nausea, poor appetite, poor fluid intake, rectal bleeding , vomiting, other Neurologic/Psychiatric: Reports: no symptoms Endocrine: Denies: no symptoms, excessive sweating, flushing, intolerance to cold, intolerance to heat, increased hunger, increased thirst, increased urine, unexplained weight gain, unexplained weight loss, other Hematologic/Lymphatic: Denies: no symptoms, anemia, easy bleeding, easy bruising, other Allergies: Coded Allergies: No Known Allergies (Verified , NONE, 04/29/17) Subjective afebrile, nad, anemia slightly lower Objective Last 24 Hour Vital Signs Date Time Temp Pulse Resp B/P (MAP) Pulse Ox O2 Delivery O2 Flow Rate FiO2 11/28/17 04:00 97.7 84 18 120/81 100 11/28/17 00:00 97.7 80 20 121/77 100 Room Air 11/27/17 21:00 84 108/72 11/27/17 20:00 98.0 83 20 117/85 100 Room Air Intake and Output 11/27/17 11/28/17 19:00 07:00 Intake Total 1017.5 ml 1370.0 ml Output Total 1400 ml Balance 1017.5 ml -30.0 ml Intake Oral 580 ml 560 ml IV Total 437.5 ml 810.0 ml Output Urine Total 1400 ml Laboratory Tests 11/27/17 20:15: Reticulocyte Count 0.8, Hemoglobin A [Pending], Hemoglobin A2 [Pending], Hemoglobin C [Pending], Hemoglobin F () [Pending], Hemoglobin S [Pending], Variant Hemoglobin [Pending], Hemoglobin Electrophoresis Interp [Pending], Hemoglobin Interpretation [Pending], Hemoglobin Solubility [Pending], Fibrinogen 283, Iron Level 75, Total Iron Binding Capacity 182L, Percent Iron Saturation 41, Unsaturated Iron Binding 107L, Ferritin 126, Vitamin B12 Level 1617H, Folate 16.7, Thyroid Stimulating Hormone (TSH) 1.188 11/28/17 05:00: White Blood Count 8.3, Red Blood Count 2.77L, Hemoglobin 9.0L, Hematocrit 26.7L , Mean Corpuscular Volume 97, Mean Corpuscular Hemoglobin 32.7H, Mean Corpuscular Hemoglobin Concent 33.9, Red Cell Distribution Width 11.2L, Platelet Count 156, Mean Platelet Volume 9.0, Neutrophils (%) (Auto) 48.5, Lymphocytes (%) (Auto) 40.9, Monocytes (%) (Auto) 7.6, Eosinophils (%) (Auto) 2.3, Basophils (%) (Auto) 0.7, Sodium Level 140#, Potassium Level 3.5, Chloride Level 103, Carbon Dioxide Level 31, Anion Gap 6, Blood Urea Nitrogen 22H, Creatinine 1.9H, Estimat Glomerular Filtration Rate 35.5, Glucose Level 160#H, Uric Acid 3.3, Calcium Level 7.1L, Phosphorus Level 3.9, Magnesium Level 1.5L, Total Bilirubin 0.2, Aspartate Amino Transf (AST/SGOT) 21, Alanine Aminotransferase (ALT/SGPT) 28, Alkaline Phosphatase 173H, C-Reactive Protein, Quantitative < 0.4, Pro-B-Type Natriuretic Peptide 97, Total Protein 6.3L, Albumin 2.5L, Globulin 3.8, Albumin/Globulin Ratio 0.7L, HIV-1 RNA (PCR) log10 Value [Pending], HIV-1 RNA Ultraquantitative (PCR) [Pending], HIV (1&2) Antibody Rapid Negative Height (Feet): 5 Height (Inches): 6.00 Weight (Pounds): 113 General Appearance: alert EENT: normal ENT inspection Neck: supple Cardiovascular: regular rhythm Respiratory/Chest: lungs clear Abdomen: no organomegaly Extremities: non-tender Edema: 1+ Leg (L), 1+ Leg (R) Edema: mild edema Neurologic: alert Skin: warm/dry Roge Chaudhary Nov 28, 2017 19:36
[2017-11-28 20:00] VITALS: BP 136/87
[2017-11-28] MEDS ORDERED: Depakote ER 500mg tab ORAL SCH (21:00)
--- NOTE | 2017-11-28 22:10 | Consultation ---
History of Present Illness General Date patient seen: Nov 27, 2017 Chief Complaint: Nausea, Vomiting, and Diarrhea Referring physician: NICK PATE Reason for Consultation: N/V/D Present Illness HPI 42-year-old black female with hx of diabetes mellitus type 2, opioid pain dependence and depression. the pt has been labile, easily agitated, poor insight. Allergies: Coded Allergies: No Known Allergies (Verified , NONE, 04/29/17) Medication History Scheduled Acetaminophen (Acetaminophen), 650 MG ORAL EVERY 4 HOURS, (Reported) Al Hydroxide/mg Hydroxide (Mag-Al Plus Suspension), 30 ML ORAL EVERY 6 HOURS, ( Reported) Amlodipine Besylate (Norvasc), 5 MG ORAL Q12HR, (Reported) Calcium Carbonate (Calcium Carbonate), 500 MG PO DAILY, (Reported) Clonidine HCl (Clonidine HCl), 0.1 MG PO EVERY 4 HOURS, (Reported) Divalproex Sodium* (Depakote Er*), 1,000 MG ORAL QHS, (Reported) Heparin Sodium,Porcine/Ns/Pf (Heparin), 5,000 UNIT SUBQ EVERY 12 HOURS, ( Reported) Insulin Aspart (Novolog Flexpen), 10 SUBQ 3x a day before meal, (Reported) Insulin Aspart* (Novolog*), 0 SUBQ BEFORE MEALS AND HS, (Reported) Insulin Detemir (Levemir), 8 SUBQ BID, (Reported) Insulin Detemir (Levemir Flexpen), 15 SUBQ Q12HR, (Reported) Insulin Detemir (Levemir Flexpen), 8 UNIT SUBQ EVERY 12 HOURS Magnesium Oxide (Magnesium Oxide), 400 MG ORAL TID, (Reported) Pantoprazole* (Protonix*), 40 MG ORAL DAILY, (Reported) Pantoprazole* (Protonix*), 40 MG ORAL DAILY, (Reported) Polyethylene Glycol 3350* (Miralax*), 17 GM ORAL HS, (Reported) Ranitidine Hcl* (Zantac*), 150 MG ORAL TWICE A DAY, (Reported) Ranitidine Hcl* (Zantac*), 150 MG ORAL DAILY, (Reported) Temazepam (Temazepam*), 15 MG ORAL BEDTIME, (Reported) Scheduled PRN Ondansetron* (Zofran*), 4 MG IVP Q6H PRN for Nausea & Vomiting, (Reported) Temazepam* (Restoril*), 15 MG ORAL BEDTIME PRN for Insomnia, (Reported) Miscellaneous Medications Insulin Aspart* (Novolog*), 4 SUBQ, (Reported) Nitroglycerin (Nitroglycerin), 0.4 MG SL, (Reported) Unable to Obtain Medications (Unable To Obtain Meds), (Reported) Unable to Obtain Medications (Unable To Obtain Meds), (Reported) [insulin], (Reported) Patient History Limited by: medical condition History Provided By: Patient, Medical Record, PMD Healthcare decision maker Resuscitation status Full Code Advanced Directive on File Past Medical/Surgical History Past Medical/Surgical History: (1) Nausea, vomiting, and diarrhea (2) Intractable vomiting (3) Severe malnutrition (4) Hypoglycemia (5) Altered level of consciousness (6) Chest pain at rest (7) Cocaine abuse (8) Yeast UTI (9) Abnormal white blood cell (WBC) count (10) esophageal wall thickening (11) DKA (diabetic ketoacidoses) (12) Leukocytosis (13) Esophagitis (14) Anemia (15) Diabetes (16) Psychiatric disorder (17) ARF (acute renal failure) (18) Cellulitis of right hand (19) Localized swelling on right hand (20) Seizure disorder (21) Abdominal pain (22) Intractable nausea and vomiting (23) Nausea alone (24) CIERA (acute kidney injury) (25) Hyperglycemia (26) Diarrhea (27) HTN (hypertension) (28) Non compliance with medical treatment (29) Gastroparesis due to DM Review of Systems Psychiatric: Reports: prior hx, anxiety, depressed feelings, emotional problems Physical Exam General Appearance: no apparent distress, alert, agitated Neurologic: alert, oriented x 3, responsive, depressed affect Last 24 Hour Vital Signs Date Time Temp Pulse Resp B/P (MAP) Pulse Ox O2 Delivery O2 Flow Rate FiO2 11/28/17 21:54 83 136/87 11/28/17 20:00 97.7 83 20 136/87 100 Room Air 11/28/17 04:00 97.7 84 18 120/81 100 11/28/17 00:00 97.7 80 20 121/77 100 Room Air Intake and Output 11/27/17 11/28/17 19:00 07:00 Intake Total 1017.5 ml 1370.0 ml Output Total 1400 ml Balance 1017.5 ml -30.0 ml Intake Oral 580 ml 560 ml IV Total 437.5 ml 810.0 ml Output Urine Total 1400 ml Laboratory Tests Test 11/28/17 05:00 White Blood Count 8.3 K/UL (4.8-10.8) Red Blood Count 2.77 M/UL (4.20-5.40) L Hemoglobin 9.0 G/DL (12.0-16.0) L Hematocrit 26.7 % (37.0-47.0) L Mean Corpuscular Volume 97 FL (80-99) Mean Corpuscular Hemoglobin 32.7 PG (27.0-31.0) H Mean Corpuscular Hemoglobin Concent 33.9 G/DL (32.0-36.0) Red Cell Distribution Width 11.2 % (11.6-14.8) L Platelet Count 156 K/UL (150-450) Mean Platelet Volume 9.0 FL (6.5-10.1) Neutrophils (%) (Auto) 48.5 % (45.0-75.0) Lymphocytes (%) (Auto) 40.9 % (20.0-45.0) Monocytes (%) (Auto) 7.6 % (1.0-10.0) Eosinophils (%) (Auto) 2.3 % (0.0-3.0) Basophils (%) (Auto) 0.7 % (0.0-2.0) Sodium Level 140 MMOL/L (136-145) # Potassium Level 3.5 MMOL/L (3.5-5.1) Chloride Level 103 MMOL/L (98-107) Carbon Dioxide Level 31 MMOL/L (21-32) Anion Gap 6 mmol/L (5-15) Blood Urea Nitrogen 22 mg/dL (7-18) H Creatinine 1.9 MG/DL (0.55-1.30) H Estimat Glomerular Filtration Rate 35.5 mL/min (>60) Glucose Level 160 MG/DL (74-106) #H Uric Acid 3.3 MG/DL (2.6-7.2) Calcium Level 7.1 MG/DL (8.5-10.1) L Phosphorus Level 3.9 MG/DL (2.5-4.9) Magnesium Level 1.5 MG/DL (1.8-2.4) L Total Bilirubin 0.2 MG/DL (0.2-1.0) Aspartate Amino Transf (AST/SGOT) 21 U/L (15-37) Alanine Aminotransferase (ALT/SGPT) 28 U/L (12-78) Alkaline Phosphatase 173 U/L (46-116) H C-Reactive Protein, Quantitative < 0.4 mg/dL (0.00-0.90) Pro-B-Type Natriuretic Peptide 97 pg/mL (0-125) Total Protein 6.3 G/DL (6.4-8.2) L Albumin 2.5 G/DL (3.4-5.0) L Globulin 3.8 g/dL Albumin/Globulin Ratio 0.7 (1.0-2.7) L HIV-1 RNA (PCR) log10 Value Pending HIV-1 RNA Ultraquantitative (PCR) Pending HIV (1&2) Antibody Rapid Negative (NEGATIVE) Height (Feet): 5 Height (Inches): 6.00 Weight (Pounds): 113 Medications Current Medications Medications (Trade) Dose Ordered Sig/Mateo Route PRN Reason Start Time Stop Time Status Last Admin Dose Admin Acetaminophen (Tylenol) 650 mg Q4H PRN ORAL Mild Pain/Temp > 100.5 11/26/17 11:00 12/23/17 10:59 Amlodipine Besylate (Norvasc) 5 mg Q12HR ORAL 11/26/17 21:00 12/24/17 20:59 11/28/17 21:54 Aspirin (ASA) 81 mg DAILY ORAL 11/27/17 09:00 12/24/17 18:59 Chlorhexidine Gluconate (Mara-Hex 2%) 1 applic DAILY@0900 TOPIC 11/28/17 09:00 12/28/17 08:59 Clonidine HCl (Catapres) 0.1 mg Q4H PRN ORAL bp over 170 syst 11/26/17 11:00 12/26/17 10:59 Dextrose (Dextrose 50%) STAT PRN IV Hypoglycemia 11/26/17 11:00 12/23/17 10:59 Divalproex Sodium (Depakote ER) 1,500 mg QHS ORAL 11/28/17 21:00 12/28/17 20:59 11/28/17 21:54 Fluconazole (Diflucan) 200 mg DAILY ORAL 11/26/17 14:00 12/03/17 13:59 Heparin Sodium (Porcine) (Heparin 5000 units/ml) 5,000 units EVERY 12 HOURS SUBQ 11/26/17 21:00 12/23/17 20:59 11/28/17 21:58 Insulin Aspart (NovoLOG) BEFORE MEALS AND HS SUBQ 11/26/17 11:30 12/24/17 06:29 11/28/17 22:01 Insulin Detemir (Levemir) 10 units Q12HR SUBQ 11/26/17 21:00 12/25/17 09:59 11/28/17 22:00 Lorazepam (Ativan) 1 mg Q8H PRN ORAL For Anxiety 11/26/17 11:00 12/03/17 10:59 11/26/17 20:58 Nitroglycerin (Ntg) 0.4 mg Q5MIN X 3 DOSES PRN SL chest pain 11/26/17 10:45 12/23/17 14:29 Ondansetron HCl (Zofran) 4 mg Q6H PRN IVP Nausea & Vomiting 11/26/17 11:00 12/25/17 10:59 Pantoprazole (Protonix) 40 mg DAILY ORAL 11/27/17 09:00 12/24/17 08:59 Polyethylene Glycol (Miralax) 17 gm DAILYPRN PRN ORAL Constipation 11/26/17 11:00 12/23/17 10:59 Sodium Chloride 1,000 ml @ 100 mls/hr Q10H IV 11/26/17 10:45 12/26/17 10:29 11/28/17 22:01 Temazepam (Restoril) 15 mg HSPRN PRN ORAL Insomnia 11/26/17 21:00 12/03/17 20:59 11/28/17 21:54 Assessment/Plan Status: stable, progressing Assessment/Plan depression agitation klonopin 1mg daily depakote 1500mg qhs Jing Jaime M.D. Nov 28, 2017 22:10
[2017-11-29] VITALS: BP 125/97
[2017-11-29] MEDS: NovoLOG Insulin Flexpen SUBQ SCH ×2 (06:15→12:18)
--- NOTE | 2017-11-29 07:50 | General Progress Note ---
Assessment/Plan Problem List: (1) DKA (diabetic ketoacidoses) ICD Codes: E13.10 - Other specified diabetes mellitus with ketoacidosis without coma SNOMED: 53046437, 552809576 (2) Leukocytosis ICD Codes: D72.829 - Elevated white blood cell count, unspecified SNOMED: 542136789, 374490459 (3) HTN (hypertension) ICD Codes: I10 - Essential (primary) hypertension SNOMED: 96289329 (4) Non compliance with medical treatment ICD Codes: Z91.19 - Patient's noncompliance with other medical treatment and regimen SNOMED: 6230585 Assessment/Plan continue Levemir 10 units bid continue Novolog coverage difficult patient to work with - non compliant and does not want to communicate Subjective ROS Limited/Unobtainable: Yes Allergies: Coded Allergies: No Known Allergies (Verified , NONE, 04/29/17) Subjective events noted Objective Last 24 Hour Vital Signs Date Time Temp Pulse Resp B/P (MAP) Pulse Ox O2 Delivery O2 Flow Rate FiO2 11/29/17 00:00 98.1 88 20 125/97 100 Room Air 11/28/17 21:54 83 136/87 11/28/17 20:00 97.7 83 20 136/87 100 Room Air Intake and Output 11/28/17 11/29/17 19:00 07:00 Intake Total 1050.0 ml 1400 ml Output Total 450 ml Balance 600.0 ml 1400 ml Intake Oral 240 ml 400 ml IV Total 810.0 ml 1000 ml Output Urine Total 450 ml # Voids 2 2 Height (Feet): 5 Height (Inches): 6.00 Weight (Pounds): 117 General Appearance: no apparent distress Neck: normal alignment Cardiovascular: normal rate Respiratory/Chest: lungs clear Abdomen: normal bowel sounds Objective Current Medications Medications (Trade) Dose Ordered Sig/Mateo Route PRN Reason Start Time Stop Time Status Last Admin Dose Admin Acetaminophen (Tylenol) 650 mg Q4H PRN ORAL Mild Pain/Temp > 100.5 11/26/17 11:00 12/23/17 10:59 Amlodipine Besylate (Norvasc) 5 mg Q12HR ORAL 11/26/17 21:00 12/24/17 20:59 11/28/17 21:54 Aspirin (ASA) 81 mg DAILY ORAL 11/27/17 09:00 12/24/17 18:59 Chlorhexidine Gluconate (Mara-Hex 2%) 1 applic DAILY@0900 TOPIC 11/28/17 09:00 12/28/17 08:59 Clonazepam (KlonoPIN) 1 mg DAILY ORAL 11/29/17 09:00 12/06/17 08:59 Clonidine HCl (Catapres) 0.1 mg Q4H PRN ORAL bp over 170 syst 11/26/17 11:00 12/26/17 10:59 Dextrose (Dextrose 50%) STAT PRN IV Hypoglycemia 11/26/17 11:00 12/23/17 10:59 Divalproex Sodium (Depakote ER) 1,500 mg QHS ORAL 11/28/17 21:00 12/28/17 20:59 11/28/17 21:54 Fluconazole (Diflucan) 200 mg DAILY ORAL 11/26/17 14:00 12/03/17 13:59 Heparin Sodium (Porcine) (Heparin 5000 units/ml) 5,000 units EVERY 12 HOURS SUBQ 11/26/17 21:00 12/23/17 20:59 11/28/17 21:58 Insulin Aspart (NovoLOG) BEFORE MEALS AND HS SUBQ 11/26/17 11:30 12/24/17 06:29 11/29/17 06:15 Insulin Detemir (Levemir) 10 units Q12HR SUBQ 11/26/17 21:00 12/25/17 09:59 11/28/17 22:00 Lorazepam (Ativan) 1 mg Q8H PRN ORAL For Anxiety 11/26/17 11:00 12/03/17 10:59 11/26/17 20:58 Nitroglycerin (Ntg) 0.4 mg Q5MIN X 3 DOSES PRN SL chest pain 11/26/17 10:45 12/23/17 14:29 Ondansetron HCl (Zofran) 4 mg Q6H PRN IVP Nausea & Vomiting 11/26/17 11:00 12/25/17 10:59 Pantoprazole (Protonix) 40 mg DAILY ORAL 11/27/17 09:00 12/24/17 08:59 Polyethylene Glycol (Miralax) 17 gm DAILYPRN PRN ORAL Constipation 11/26/17 11:00 12/23/17 10:59 Sodium Chloride 1,000 ml @ 100 mls/hr Q10H IV 11/26/17 10:45 12/26/17 10:29 11/28/17 22:01 Temazepam (Restoril) 15 mg HSPRN PRN ORAL Insomnia 11/26/17 21:00 12/03/17 20:59 11/28/17 21:54 Item Value Date Time Bedside Blood Glucose 207 mg/dl H 11/29/17 0627 Bedside Blood Glucose 201 mg/dl H 11/28/17 2201 Bedside Blood Glucose 258 mg/dl H 11/28/17 1657 Bedside Blood Glucose 367 mg/dl H 11/28/17 1254 FRANCES BRADLEY Nov 29, 2017 07:50
[2017-11-29 08:14] LABS: ANION GAP 5 mmol/L (5-15); BLOOD UREA NITROGEN 18 mg/dL (7-18); CALCIUM 6.4 MG/DL (8.5-10.1); CARBON DIOXIDE 29 MMOL/L (21-32); CHLORIDE 109 MMOL/L (98-107); CREATININE 1.5 MG/DL (0.55-1.30); POTASSIUM 3.5 MMOL/L (3.5-5.1); SODIUM 142 MMOL/L (136-145)
[2017-11-29 08:28] LABS: BASOPHILS % (AUTO) 0.6 % (0.0-2.0); EOSINOPHILS % (AUTO) 2.4 % (0.0-3.0); HEMOGLOBIN 8.2 G/DL (12.0-16.0); LYMPHOCYTES % (AUTO) 38.5 % (20.0-45.0); MEAN CORPUSCULAR VOLUME 97 FL (80-99); MONOCYTES % (AUTO) 6.4 % (1.0-10.0); NEUTROPHILS % (AUTO) 52.1 % (45.0-75.0); PLATELET COUNT 135 K/UL (150-450); RED BLOOD COUNT 2.57 M/UL (4.20-5.40); RED CELL DISTRIBUTION WIDTH 11.6 % (11.6-14.8); WHITE BLOOD COUNT 7.8 K/UL (4.8-10.8)
[2017-11-29] MEDS: Aspirin Baby 81mg ORAL SCH (09:00)
[2017-11-29] MEDS: Fluconazole 100mg tab ORAL SCH (09:00)
[2017-11-29] MEDS: Heparin 5000 units/ml inj SUBQ SCH (09:00)
[2017-11-29] MEDS: Dyna-Hex 2% Top Sol 2oz TOPIC SCH (09:00)
--- NOTE | 2017-11-29 09:08 | General Progress Note ---
Assessment/Plan Problem List: (1) Hypoglycemia ICD Codes: E16.2 - Hypoglycemia, unspecified SNOMED: 963119807 (2) Altered level of consciousness ICD Codes: R40.4 - Transient alteration of awareness SNOMED: 7481620 (3) Nausea, vomiting, and diarrhea ICD Codes: R11.2 - Nausea with vomiting, unspecified; R19.7 - Diarrhea, unspecified SNOMED: 5044683 (4) Intractable vomiting ICD Codes: R11.10 - Vomiting, unspecified SNOMED: 351782387, 752328728 (5) Severe malnutrition ICD Codes: E43 - Unspecified severe protein-calorie malnutrition SNOMED: 19115985 (6) Diabetes ICD Codes: E11.9 - Type 2 diabetes mellitus without complications SNOMED: 63998926 (7) Psychiatric disorder ICD Codes: F99 - Mental disorder, not otherwise specified SNOMED: 08386924, 202989795 Status: unchanged Assessment/Plan ot pt diet bs control antiemetic cbc bmp am dc plan Subjective Constitutional: Reports: weakness Allergies: Coded Allergies: No Known Allergies (Verified , NONE, 04/29/17) All Systems: reviewed and negative except above Subjective sleepy agitated Objective Last 24 Hour Vital Signs Date Time Temp Pulse Resp B/P (MAP) Pulse Ox O2 Delivery O2 Flow Rate FiO2 11/29/17 00:00 98.1 88 20 125/97 100 Room Air 11/28/17 21:54 83 136/87 11/28/17 20:00 97.7 83 20 136/87 100 Room Air Intake and Output 11/28/17 11/29/17 19:00 07:00 Intake Total 1050.0 ml 1400 ml Output Total 450 ml Balance 600.0 ml 1400 ml Intake Oral 240 ml 400 ml IV Total 810.0 ml 1000 ml Output Urine Total 450 ml # Voids 2 2 Laboratory Tests 11/29/17 05:30: White Blood Count 7.8, Red Blood Count 2.57L, Hemoglobin 8.2L, Hematocrit 25.0L , Mean Corpuscular Volume 97, Mean Corpuscular Hemoglobin 32.0H, Mean Corpuscular Hemoglobin Concent 32.8, Red Cell Distribution Width 11.6, Platelet Count 135L, Mean Platelet Volume 9.2, Neutrophils (%) (Auto) 52.1, Lymphocytes ( %) (Auto) 38.5, Monocytes (%) (Auto) 6.4, Eosinophils (%) (Auto) 2.4, Basophils (%) (Auto) 0.6, Sodium Level 142, Potassium Level 3.5, Chloride Level 109H, Carbon Dioxide Level 29, Anion Gap 5, Blood Urea Nitrogen 18, Creatinine 1.5H, Estimat Glomerular Filtration Rate 46.5, Glucose Level 196H, Calcium Level 6.4L Height (Feet): 5 Height (Inches): 6.00 Weight (Pounds): 117 General Appearance: lethargic EENT: normal ENT inspection Neck: normal alignment Cardiovascular: normal peripheral pulses, normal rate, regular rhythm Respiratory/Chest: chest wall non-tender, lungs clear, normal breath sounds Abdomen: normal bowel sounds, non tender, soft Extremities: normal inspection Edema: no edema noted Arm (L), no edema noted Arm (R), no edema noted Leg (L), no edema noted Leg (R), no edema noted Pedal (L), no edema noted Pedal (R), no edema noted Generalized Neurologic: motor weakness Skin: normal pigmentation, warm/dry ENOCH GONZALEZ Nov 29, 2017 09:08
--- NOTE | 2017-11-29 10:34 | General Progress Note ---
Assessment/Plan Problem List: (1) HTN (hypertension) ICD Codes: I10 - Essential (primary) hypertension SNOMED: 03310300 (2) Abdominal pain ICD Codes: R10.9 - Unspecified abdominal pain SNOMED: 87597313 (3) Seizure disorder ICD Codes: G40.909 - Epilepsy, unspecified, not intractable, without status epilepticus SNOMED: 607627855 (4) Diabetes ICD Codes: E11.9 - Type 2 diabetes mellitus without complications SNOMED: 56689705 (5) Esophagitis ICD Codes: K20.9 - Esophagitis, unspecified SNOMED: 41348675 Assessment/Plan ppi daily fu labs pain control dc planning per primary team Subjective ROS Limited/Unobtainable: Yes Allergies: Coded Allergies: No Known Allergies (Verified , NONE, 04/29/17) Subjective no event over night Objective Last 24 Hour Vital Signs Date Time Temp Pulse Resp B/P (MAP) Pulse Ox O2 Delivery O2 Flow Rate FiO2 11/29/17 00:00 98.1 88 20 125/97 100 Room Air 11/28/17 21:54 83 136/87 11/28/17 20:00 97.7 83 20 136/87 100 Room Air Intake and Output 11/28/17 11/29/17 19:00 07:00 Intake Total 1050.0 ml 1400 ml Output Total 450 ml Balance 600.0 ml 1400 ml Intake Oral 240 ml 400 ml IV Total 810.0 ml 1000 ml Output Urine Total 450 ml # Voids 2 2 Laboratory Tests 11/29/17 05:30: White Blood Count 7.8, Red Blood Count 2.57L, Hemoglobin 8.2L, Hematocrit 25.0L , Mean Corpuscular Volume 97, Mean Corpuscular Hemoglobin 32.0H, Mean Corpuscular Hemoglobin Concent 32.8, Red Cell Distribution Width 11.6, Platelet Count 135L, Mean Platelet Volume 9.2, Neutrophils (%) (Auto) 52.1, Lymphocytes ( %) (Auto) 38.5, Monocytes (%) (Auto) 6.4, Eosinophils (%) (Auto) 2.4, Basophils (%) (Auto) 0.6, Sodium Level 142, Potassium Level 3.5, Chloride Level 109H, Carbon Dioxide Level 29, Anion Gap 5, Blood Urea Nitrogen 18, Creatinine 1.5H, Estimat Glomerular Filtration Rate 46.5, Glucose Level 196H, Calcium Level 6.4L , Magnesium Level 2.0 Height (Feet): 5 Height (Inches): 6.00 Weight (Pounds): 117 General Appearance: no apparent distress EENT: normal ENT inspection Neck: supple Cardiovascular: normal rate Respiratory/Chest: decreased breath sounds Abdomen: normal bowel sounds, non tender, soft Extremities: non-tender QUAN BAZAN Nov 29, 2017 10:34
--- NOTE | 2017-11-29 11:27 | Infectious Diseases Prog Note ---
Assessment/Plan Assessment/Plan Abx: IV Zosyn 1/2- Assessment: - no obvious source of infection identified thus far Esophagitis probably 2nd to GERD due gastroparesis due to DM Esophageal wall thickening and odynophagia, recent esopaghitis 01/2017 (EGD) path in 01/2017 Neg for fungal , CMV and HSV no pain or difficulty of swallowing today -CT chest: Prominent esophageal wall thickening involving the mid and distal thoracic esophagus. This seems progressed compared to 02/04/2017. Differential considerations include esophagitis or esophageal neoplasm. Correlation with upper GI study or direct visualization with endoscopy is recommended. No focal airspace consolidation, pleural effusion or pneumothorax. Unchanged findings suggestive of chronic, calcified pancreatitis. Coronary artery calcification. Leukocytosis (up to 25)- resolved-suspect reactive to DKA -afebrile -u/a no pyuria -Bcx NTD N/v diarrhea- resolved Transaminitis, improving -hep panel pending Hep Bc ab+ HIV 1/2 ab neg x2, VL p Chronic pancreaitis +UTox for coccaine DKA CIERA, improving Plan: -Continue empiric PO Fluconazole 200mg qd # 4 /7 for esophagitis/odynophagia 11/28 SP Zosyn #4 -f/u Influenza and stool cx, hep serologies -f/u cx -Monitor CBC/BMP, temperatures Subjective Allergies: Coded Allergies: No Known Allergies (Verified , NONE, 04/29/17) Subjective afebrile Objective Vital Signs Last 24 Hour Vital Signs Date Time Temp Pulse Resp B/P (MAP) Pulse Ox O2 Delivery O2 Flow Rate FiO2 11/29/17 00:00 98.1 88 20 125/97 100 Room Air 11/28/17 21:54 83 136/87 11/28/17 20:00 97.7 83 20 136/87 100 Room Air Height (Feet): 5 Height (Inches): 6.00 Weight (Pounds): 117 HEENT: atraumatic Respiratory/Chest: normal breath sounds Cardiovascular: regularly irregular Abdomen: no organomegaly Laboratory Tests Test 11/29/17 05:30 White Blood Count 7.8 K/UL (4.8-10.8) Red Blood Count 2.57 M/UL (4.20-5.40) L Hemoglobin 8.2 G/DL (12.0-16.0) L Hematocrit 25.0 % (37.0-47.0) L Mean Corpuscular Volume 97 FL (80-99) Mean Corpuscular Hemoglobin 32.0 PG (27.0-31.0) H Mean Corpuscular Hemoglobin Concent 32.8 G/DL (32.0-36.0) Red Cell Distribution Width 11.6 % (11.6-14.8) Platelet Count 135 K/UL (150-450) L Mean Platelet Volume 9.2 FL (6.5-10.1) Neutrophils (%) (Auto) 52.1 % (45.0-75.0) Lymphocytes (%) (Auto) 38.5 % (20.0-45.0) Monocytes (%) (Auto) 6.4 % (1.0-10.0) Eosinophils (%) (Auto) 2.4 % (0.0-3.0) Basophils (%) (Auto) 0.6 % (0.0-2.0) Sodium Level 142 MMOL/L (136-145) Potassium Level 3.5 MMOL/L (3.5-5.1) Chloride Level 109 MMOL/L (98-107) H Carbon Dioxide Level 29 MMOL/L (21-32) Anion Gap 5 mmol/L (5-15) Blood Urea Nitrogen 18 mg/dL (7-18) Creatinine 1.5 MG/DL (0.55-1.30) H Estimat Glomerular Filtration Rate 46.5 mL/min (>60) Glucose Level 196 MG/DL (74-106) H Calcium Level 6.4 MG/DL (8.5-10.1) L Magnesium Level 2.0 MG/DL (1.8-2.4) Current Medications Medications (Trade) Dose Ordered Sig/Mateo Route PRN Reason Start Time Stop Time Status Last Admin Dose Admin Acetaminophen (Tylenol) 650 mg Q4H PRN ORAL Mild Pain/Temp > 100.5 11/26/17 11:00 12/23/17 10:59 Amlodipine Besylate (Norvasc) 5 mg Q12HR ORAL 11/26/17 21:00 12/24/17 20:59 11/28/17 21:54 Aspirin (ASA) 81 mg DAILY ORAL 11/27/17 09:00 12/24/17 18:59 Chlorhexidine Gluconate (Mara-Hex 2%) 1 applic DAILY@0900 TOPIC 11/28/17 09:00 12/28/17 08:59 Clonazepam (KlonoPIN) 1 mg DAILY ORAL 11/29/17 09:00 12/06/17 08:59 Clonidine HCl (Catapres) 0.1 mg Q4H PRN ORAL bp over 170 syst 11/26/17 11:00 12/26/17 10:59 Dextrose (Dextrose 50%) STAT PRN IV Hypoglycemia 11/26/17 11:00 12/23/17 10:59 Divalproex Sodium (Depakote ER) 1,500 mg QHS ORAL 11/28/17 21:00 12/28/17 20:59 11/28/17 21:54 Fluconazole (Diflucan) 200 mg DAILY ORAL 11/26/17 14:00 12/03/17 13:59 Heparin Sodium (Porcine) (Heparin 5000 units/ml) 5,000 units EVERY 12 HOURS SUBQ 11/26/17 21:00 12/23/17 20:59 11/28/17 21:58 Insulin Aspart (NovoLOG) BEFORE MEALS AND HS SUBQ 11/26/17 11:30 12/24/17 06:29 11/29/17 06:15 Insulin Detemir (Levemir) 10 units Q12HR SUBQ 11/26/17 21:00 12/25/17 09:59 11/28/17 22:00 Lorazepam (Ativan) 1 mg Q8H PRN ORAL For Anxiety 11/26/17 11:00 12/03/17 10:59 11/26/17 20:58 Nitroglycerin (Ntg) 0.4 mg Q5MIN X 3 DOSES PRN SL chest pain 11/26/17 10:45 12/23/17 14:29 Ondansetron HCl (Zofran) 4 mg Q6H PRN IVP Nausea & Vomiting 11/26/17 11:00 12/25/17 10:59 Pantoprazole (Protonix) 40 mg DAILY ORAL 11/27/17 09:00 12/24/17 08:59 Polyethylene Glycol (Miralax) 17 gm DAILYPRN PRN ORAL Constipation 11/26/17 11:00 12/23/17 10:59 Sodium Chloride 1,000 ml @ 100 mls/hr Q10H IV 11/26/17 10:45 12/26/17 10:29 11/28/17 22:01 Temazepam (Restoril) 15 mg HSPRN PRN ORAL Insomnia 11/26/17 21:00 12/03/17 20:59 11/28/17 21:54 FERNANDA PIZANO M.D. Nov 29, 2017 11:27
[2017-11-29] MEDS: Levemir Flexpen SUBQ SCH (11:37)
[2017-11-29] MEDS ORDERED: DIVALPROEX SOD500 M2 ORAL (12:01)
[2017-11-29] MEDS ORDERED: ASPIRIN81 MG ORAL (12:01)
[2017-11-29] MEDS ORDERED: ZOFRAN4 M3 ORAL (12:01)
[2017-11-29] MEDS ORDERED: LEVEMIR FL100 UNIT/1 SUBQ (12:01)
[2017-11-29] MEDS ORDERED: CLONAZEPAM1 M2 ORAL (12:01)
--- NOTE | 2017-11-29 12:43 | Nephrology Progress Note ---
Assessment/Plan Problem List: (1) ARF (acute renal failure) (2) Hyperglycemia Assessment: leading to low Na (3) Cocaine abuse Assessment renal failure ? acute , dehydration, ? Underlying CKD due to DM Cr lowering Dm , Hyperglycemia HTN SZ disorders Encephalopathy IDDM Urine + for Cocaine Plan Plan; DC Love Hydrate with saline Urine studies monitor renal parameters avoid nephrotoxics check BP and BS Stable for DC from renal stand Subjective ROS Limited/Unobtainable: No Constitutional: Reports: malaise Objective Objective Last 24 Hour Vital Signs Date Time Temp Pulse Resp B/P (MAP) Pulse Ox O2 Delivery O2 Flow Rate FiO2 11/29/17 00:00 98.1 88 20 125/97 100 Room Air 11/28/17 21:54 83 136/87 11/28/17 20:00 97.7 83 20 136/87 100 Room Air Intake and Output 11/28/17 11/29/17 19:00 07:00 Intake Total 1050.0 ml 1500 ml Output Total 450 ml Balance 600.0 ml 1500 ml Intake Oral 240 ml 400 ml IV Total 810.0 ml 1100 ml Output Urine Total 450 ml # Voids 2 2 Laboratory Tests 11/29/17 05:30: White Blood Count 7.8, Red Blood Count 2.57L, Hemoglobin 8.2L, Hematocrit 25.0L , Mean Corpuscular Volume 97, Mean Corpuscular Hemoglobin 32.0H, Mean Corpuscular Hemoglobin Concent 32.8, Red Cell Distribution Width 11.6, Platelet Count 135L, Mean Platelet Volume 9.2, Neutrophils (%) (Auto) 52.1, Lymphocytes ( %) (Auto) 38.5, Monocytes (%) (Auto) 6.4, Eosinophils (%) (Auto) 2.4, Basophils (%) (Auto) 0.6, Sodium Level 142, Potassium Level 3.5, Chloride Level 109H, Carbon Dioxide Level 29, Anion Gap 5, Blood Urea Nitrogen 18, Creatinine 1.5H, Estimat Glomerular Filtration Rate 46.5, Glucose Level 196H, Calcium Level 6.4L , Magnesium Level 2.0 Height (Feet): 5 Height (Inches): 6.00 Weight (Pounds): 117 General Appearance: no apparent distress Objective no change JACKELIN KOEHLER Nov 29, 2017 12:43
[2017-11-29] MEDS ORDERED: FLUCONAZOLE100 MG ORAL (13:13)
[2017-11-29] MEDS ORDERED: NS 275ml ONE (14:07)
[2017-11-29] MEDS ORDERED: D5NS 1000ml IV ONE (14:07)
[2017-11-29] MEDS ORDERED: Tubing IV Secondary IV ONE (14:07)
--- NOTE | 2017-11-29 23:15 | General Progress Note ---
Assessment/Plan Status: unchanged Assessment/Plan ASSESSMENT AND RECOMMENDATIONS: #. Leukocytosis --> on antibiotics, has improved, appreciate id recs, no evidence of active infection #. Anemia of chronic disease --> closely monitor and anemia w/u to be ordered at this time since downtrending --> w/u has been reviewed, no iron deficiency or hemolysis is noted #. Hyperglycemia due to DM. The patient with an elevated blood sugar of 509. Continue to closely monitor. --> Consult with Dr. Early for further management. BS was >500, nonketotic. The patient has been refusing care. --> She has been noncompliant in the past. #. CIERA on CKD and Hyperproteinemia. nephro recs have been reviewed #. Noncompliance history. We recommended compliance as the patient has been admitted multiple times with hyperglycemia. #. Nausea, vomiting, and diarrhea likely related to poor control of underlying disorders --> GI follow #. Hypertension. Currently, the patient is normotensive. #. Subcutaneous heparin for DVT prophylaxis Subjective Date patient seen: Nov 29, 2017 Constitutional: Denies: no symptoms, chills, diaphoresis, fever, malaise, weakness, other HEENT: Denies: no symptoms, eye pain, blurred vision, tearing, double vision, ear pain, ear discharge, nose pain, nose congestion, throat pain, throat swelling, mouth pain, mouth swelling, other Cardiovascular: Denies: no symptoms, chest pain, edema, irregular heart rate, lightheadedness, palpitations, syncope, other Respiratory: Denies: no symptoms, cough, orthopnea, shortness of breath, SOB with excertion, SOB at rest, sputum, stridor, wheezing, other Gastrointestinal/Abdominal: Denies: no symptoms, abdomen distended, abdominal pain, black stools, tarry stools, blood in stool, constipated, diarrhea, difficulty swallowing, nausea, poor appetite, poor fluid intake, rectal bleeding , vomiting, other Genitourinary: Denies: no symptoms, burning, discharge, frequency, flank pain, hematuria, incontinence, pain, urgency, other Hematologic/Lymphatic: Reports: anemia Allergies: Coded Allergies: No Known Allergies (Verified , NONE, 04/29/17) Subjective No major events. Resting in bed. Ongoing IV antibiotics. Objective Last 24 Hour Vital Signs Date Time Temp Pulse Resp B/P (MAP) Pulse Ox O2 Delivery O2 Flow Rate FiO2 11/29/17 00:00 98.1 88 20 125/97 100 Room Air Intake and Output 11/28/17 11/29/17 19:00 07:00 Intake Total 1050.0 ml 1500 ml Output Total 450 ml Balance 600.0 ml 1500 ml Intake Oral 240 ml 400 ml IV Total 810.0 ml 1100 ml Output Urine Total 450 ml # Voids 2 2 Laboratory Tests 11/29/17 05:30: White Blood Count 7.8, Red Blood Count 2.57L, Hemoglobin 8.2L, Hematocrit 25.0L , Mean Corpuscular Volume 97, Mean Corpuscular Hemoglobin 32.0H, Mean Corpuscular Hemoglobin Concent 32.8, Red Cell Distribution Width 11.6, Platelet Count 135L, Mean Platelet Volume 9.2, Neutrophils (%) (Auto) 52.1, Lymphocytes ( %) (Auto) 38.5, Monocytes (%) (Auto) 6.4, Eosinophils (%) (Auto) 2.4, Basophils (%) (Auto) 0.6, Sodium Level 142, Potassium Level 3.5, Chloride Level 109H, Carbon Dioxide Level 29, Anion Gap 5, Blood Urea Nitrogen 18, Creatinine 1.5H, Estimat Glomerular Filtration Rate 46.5, Glucose Level 196H, Calcium Level 6.4L , Magnesium Level 2.0 Height (Feet): 5 Height (Inches): 6.00 Weight (Pounds): 117 General Appearance: no apparent distress EENT: normal ENT inspection Neck: supple Cardiovascular: normal rate, regular rhythm Respiratory/Chest: decreased breath sounds Abdomen: non tender Roge Chaudhary Nov 29, 2017 23:15
--- NOTE | 2017-11-30 14:25 | General Progress Note ---
Assessment/Plan Status: stable, progressing Subjective Date patient seen: Nov 29, 2017 Neurologic/Psychiatric: Reports: anxiety, depressed, emotional problems Allergies: Coded Allergies: No Known Allergies (Verified , NONE, 04/29/17) Objective Intake and Output 11/29/17 11/30/17 19:00 07:00 Intake Total 340 ml Balance 340 ml Intake Oral 240 ml IV Total 100 ml Height (Feet): 5 Height (Inches): 6.00 Weight (Pounds): 117 General Appearance: no apparent distress, alert, agitated Neurologic: alert, oriented x 3, responsive, depressed affect Jing Jaime M.D. Nov 30, 2017 14:24
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
--- NOTE | 2017-12-02 18:30 | Discharge Summary ---
Discharge Summary Hospital Course Date of Admission Nov 23, 2017 at 13:15 Date of Discharge Nov 29, 2017 at 14:08 Admitting Diagnosis interactable vomiting HPI Amaya Wallis is a 42 year old female who was admitted on Nov 23, 2017 at 13: 15 for Intractable Vomitting Hospital Course dc summary #[id number] Discharge Medications New Medications: Fluconazole (Fluconazole) 100 Mg Tablet 200 MG ORAL DAILY, #3 TAB 0 Refills Ondansetron* (Zofran*) 4 Mg Tablet 4 MG ORAL Q6H PRN, #20 TAB Aspirin* (Aspirin*) 81 Mg Tab.chew 81 MG ORAL DAILY, #30 TAB Clonazepam (Clonazepam) 1 Mg Tablet 1 MG ORAL DAILY, #15 TAB Divalproex Sodium (Divalproex Sodium Er) 500 Mg Tab.er.24h 1500 MG ORAL QHS, #30 TAB Insulin Detemir (Levemir Flexpen) 100 Unit/1 Ml Insuln.pen 10 UNITS SUBQ Q12HR, #1 SYR Continued Medications: Amlodipine Besylate (Norvasc) 5 Mg Tablet 5 MG ORAL Q12HR, TAB Calcium Carbonate (Calcium Carbonate) 500 Mg Tablet 500 MG PO DAILY, TAB Insulin Aspart* (Novolog*) 100 Unit/1 Ml Insuln.pen 0 SUBQ BEFORE MEALS AND HS, #1 EA 0 Refills Ranitidine Hcl* (Zantac*) 150 Mg Tablet 150 MG ORAL TWICE A DAY, TAB Discontinued Medications: Acetaminophen (Acetaminophen) 650 Mg/20.3 Ml Solution 650 MG ORAL EVERY 4 HOURS, ML 0 Refills Al Hydroxide/mg Hydroxide (Mag-Al Plus Suspension) 30 Ml Oral.susp 30 ML ORAL EVERY 6 HOURS, ML Clonidine HCl (Clonidine HCl) 0.1 Mg Tablet 0.1 MG PO EVERY 4 HOURS, TAB Divalproex Sodium* (Depakote Er*) 500 Mg Tab.er.24h 1000 MG ORAL QHS, TAB Heparin Sodium,Porcine/Ns/Pf (Heparin) 2,000 Unit/1000 Ml Iv.soln 5000 UNIT SUBQ EVERY 12 HOURS Insulin Aspart (Novolog Flexpen) 100 Unit/1 Ml Insuln.pen 10 SUBQ 3x a day before meal Insulin Aspart* (Novolog*) 100 Unit/1 Ml Insuln.pen 4 SUBQ, #1 EA 0 Refills Insulin Detemir (Levemir) 100 Unit/1 Ml Vial 8 SUBQ BID, VIAL Insulin Detemir (Levemir Flexpen) 100 Unit/1 Ml Insuln.pen 15 SUBQ Q12HR, #300 UNITS 0 Refills Insulin Detemir (Levemir Flexpen) 100 Unit/1 Ml Insuln.pen 8 UNIT SUBQ EVERY 12 HOURS, #300 UNITS 0 Refills Magnesium Oxide (Magnesium Oxide) 400 Mg Tablet 400 MG ORAL TID, #30 TAB 0 Refills Nitroglycerin (Nitroglycerin) 0.4 Mg Tab.subl 0.4 MG SL, TAB Ondansetron* (Zofran*) 4 Mg/2 Ml Vial 4 MG IVP Q6H PRN for Nausea & Vomiting, VIAL Pantoprazole* (Protonix*) 40 Mg Tablet.dr 40 MG ORAL DAILY, TAB Pantoprazole* (Protonix*) 40 Mg Tablet.dr 40 MG ORAL DAILY, TAB Polyethylene Glycol 3350* (Miralax*) 17 Gm Powd.pack 17 GM ORAL HS for Constipation, PACKET Ranitidine Hcl* (Zantac*) 150 Mg Tablet 150 MG ORAL DAILY, #30 TAB 0 Refills Temazepam (Temazepam*) 15 Mg Capsule 15 MG ORAL BEDTIME, #30 CAP 0 Refills Temazepam* (Restoril*) 15 Mg Capsule 15 MG ORAL BEDTIME PRN for Insomnia, CAP Unable to Obtain Medications (Unable To Obtain Meds) 1 Ea Ea Unable to Obtain Medications (Unable To Obtain Meds) 1 Ea Ea [insulin] () Discharge Condition Upon Discharge: stable Discharge Disposition Patient was discharged to Home (01) Discharge Diagnoses: [facility] ([facility])Cailin NP Dec 02, 2017 18:30
--- NOTE | 2017-12-03 16:47 | Discharge Summary 2 SIG ---
DATE OF ADMISSION: 11/23/2017 DATE OF DISCHARGE: 11/29/2017 REASON FOR ADMISSION: 42-year-old female with past medical history significant for diabetes, seizure disorder, noncompliance, chronic pancreatitis, hypertension, presented to emergency department with multiple episodes of vomiting and diarrhea. Upon evaluation, blood pressure -168/113, WBC -13.7, potassium- 4.4, BUN -28, creatinine-2.2, anion gap -16, CO2 -28, blood sugar -509. LFTs stable. Lipase within normal limits. Urine tox screen was positive for cocaine. Urinalysis revealed no evidence of UTI, but demonstrated +4 protein, +4 glucose, +2 ketone. The patient was admitted with diagnosis of nausea, vomiting, diarrhea, diabetic ketoacidosis, diabetes out of control, noncompliant, hypertension, and acute kidney injury. HOSPITAL COURSE: The patient was admitted. The patient was started on generous IV hydration. Endocrinology consult was requested. Blood sugar was managed with Levemir and sliding scale of insulin as needed. Hemoglobin A1c- 11.7 due to noncompliance with the regimen. The patient had a poor compliance and frequent readmissions because of noncompliance. The patient was encouraged on strict compliance with the insulin regimen at home. Prior to discharge, blood sugar was stable with the current regimen. Renal parameters and electrolytes are closely monitored. Nephrotoxics were avoided. Nephrology consult was requested. Renal ultrasound revealed no hydronephrosis and showed normal echogenicity bilaterally. Creatinine trending down down, -1.5 prior to discharge. The next day after admission, white blood count up to 24.3. The patient was started on empiric antibiotics. ID consult was requested. Urinalysis with no evidence of UTI. Chest x-ray revealed no evidence of acute cardiopulmonary pathology. Blood culture were negative. The patient was also placed on empiric fluconazole for possible Melany esophagitis. CT of the chest revealed prominent esophageal wall thickening involving the mid and distal thoracic esophagus, progressed compared to 02/04/2017. The patient had esophagitis on the prior GI procedure and there was a concern for possible Melany esophagitis. The patient was on empiric fluconazole as well as Zosyn. Zosyn was discontinued prior to discharge. Fluconazole will be continued for additional three days. Prescription provided. Leukocytosis resolved. The patient was afebrile. Leukocytosis seems to be reactive secondary to DKA as per ID conclusion. Gastrointestinal closely followed the patient. Per GI, the patient had gastroparesis due to uncontrolled diabetes which manifested as intractable nausea and vomiting upon presentation. Diarrhea resolved. GI procedure was deferred given recent EGD in January 2017, consistent with esophagitis. The patient was on Zofran as needed and Reglan for persistent vomiting. The patient was advanced on diet, and the diet was tolerated. The patient was on PPI. LFTs were within normal limits. No abdominal pain (initially present abdominal pain resolved). HIV status was negative. Blood pressure was managed with the current regimen and remained stable. CT of the head revealed no acute intracranial pathology. The patient was on seizure precautions. Depakote was continued. No seizure activity while in the hospital. Psychiatric evaluation was requested. The patient was diagnosed with depression and agitation and started on clonazepam and Depakote was continued. Hemoglobin and hematocrit were closely monitored. Anemia workup revealed stable iron, B12, and folate level. Counts were closely monitored with goal to keep hemoglobin above 8. No need for transfusion. 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 DVT and GI prophylaxis provided. The patient was counseled on abstinence from illicit street drugs and reinforced compliance with the medication. The patient had a moderate nutritional risk, and nutritional recommendations were implemented to improve nutritional status. The patient is stable for discharge home. FINAL DIAGNOSES: 1. Diabetic ketoacidosis, resolved. 2. Diabetes out of control (brittle diabetes with extremely labile blood sugar). 3. Noncompliance. 4. Leukocytosis, likely reactive secondary to diabetic ketoacidosis. 5. Acute kidney injury on chronic kidney disease. 6. Gastroparesis secondary to diabetes mellitus out of control. 7. Hypertension. 8. Seizure disorder. 9. Chronic pancreatitis. 10. Cocaine abuse. 11. Mild anemia of chronic disease. 12. Hypomagnesemia. 13. Depression. 14. Severe malnutrition. DISCHARGE MEDICATIONS: See medication reconciliation list. DISCHARGE INSTRUCTIONS: The patient discharged home. Stressed on compliance with medication regimen and counseled on abstinence from street drugs.Follow up with [facility] medical doctor next week. Fred Paz M.D. Cailin Carpenter N.P. ([facility]te[facility]) DR: KLARISSA JOB#: [id number] CC: ALICIA
[2018-02-06] MEDS ORDERED: NORVASC5 MG ORAL (07:36)
[2018-02-06] MEDS ORDERED: NOVOLOG100 UNIT/3 SUBQ (07:37)
[2018-02-06] MEDS ORDERED: CATAPRES0.1 MG ORAL (07:37)
[2018-02-06] MEDS ORDERED: LEVEMIR FL100 UNIT/1 SUBQ (07:38)
== END 2017-11-29 14:08 | disposition home or self-care (01) | DRG 48 ==
LOC: EDBD 09:48 → EMR 10:00 → EDBEDREQ 10:10 → 4E 13:15 → 2E 11-24 14:20 → 4E 11-25 23:06
PROC: 02HV33Z Insertion of Infusion Device into Superior Vena Cava, Percutaneous Approach (ICD-10-PCS; principal; 2017-11-26)
PROC: B548ZZA Ultrasonography of Superior Vena Cava, Guidance (ICD-10-PCS; 2017-11-26)
DX: E11.43 Type 2 diabetes mellitus with diabetic autonomic (poly)neuropathy (principal); E43 Unspecified severe protein-calorie malnutrition; N17.9 Acute kidney failure, unspecified; B37.81 Candidal esophagitis; K86.1 Other chronic pancreatitis; E88.09 Other disorders of plasma-protein metabolism, not elsewhere classified; E86.0 Dehydration; E11.10 Type 2 diabetes mellitus with ketoacidosis without coma; K31.84 Gastroparesis; I12.9 Hypertensive chronic kidney disease with stage 1 through stage 4 chronic kidney disease, or unspecified chronic kidney disease; Z91.19 Patient's noncompliance with other medical treatment and regimen; N18.9 Chronic kidney disease, unspecified; Z68.1 Body mass index [BMI] 19.9 or less, adult; R19.7 Diarrhea, unspecified; D72.829 Elevated white blood cell count, unspecified; G40.909 Epilepsy, unspecified, not intractable, without status epilepticus; D63.8 Anemia in other chronic diseases classified elsewhere; F14.10 Cocaine abuse, uncomplicated; E83.42 Hypomagnesemia; F41.9 Anxiety disorder, unspecified; F32.89 Other specified depressive episodes
CPT/HCPCS: 36415; 36569; 70450; 71045; 71250; 76775; 76937; 80048; 80053; 80061; 80164; 80301; 80307; 81001; 82533; 82550; 82607; 82728; 82746; 82962; 82977; 83020; 83036; 83540; 83550; 83690; 83735; 83880; 83930; 83935; 84100; 84300; 84439; 84443; 84481; 84484; 84550; 84703; 85007; 85025; 85044; 85060; 85384; 85610; 85730; 86140; 86703; 86704; 86706; 86708; 86803; 87040; 87536; 89050; 93005; 94760; 99285; J1815; J2405; J2765; S5561

== ENCOUNTER 2017-12-12 00:10 | Emergency (ER) | payer OTHER ==
[~2017-12-12] VITALS: Ht 154.9 cm; Wt 59.0 kg
[~2017-12-12 00:10] MED LIST changes: +ASPIRIN81 MG ORAL; +CLONAZEPAM1 M2 ORAL; +DIVALPROEX SOD500 M2 ORAL; +FLUCONAZOLE100 MG ORAL; +ZOFRAN4 M3 ORAL
[2017-12-12 00:20] VITALS: BP 156/108
--- NOTE | 2017-12-12 01:06 | Emergency Room Report ---
History of Present Illness General Chief Complaint: Abdominal Pain Source: Patient, Medical Record Present Illness HPI Patient presents with complaints of abdominal pain and vomiting He was reported the patient had just been discharged from [facility] Patient has also had multiple visits to our emergency room Patient has very labile diabetes Complains of 5 out of 10 pain abdominal diffuse denies any dysuria frequency denies any neck pain or photophobia Allergies: Coded Allergies: No Known Allergies (Verified , NONE, 12/12/17) Patient History Past Medical History: see triage record Pertinent Family History: none Last Menstrual Period: unk Reviewed Nursing Documentation: PMH: Agreed, PSxH: Agreed Nursing Documentation-PMH Past Medical History: No History, Except For Hx Cardiac Problems: Yes Hx Hypertension: Yes Hx Pacemaker: No Hx Asthma: No Hx COPD: No Hx Diabetes: Yes Hx Cancer: No Hx Gastrointestinal Problems: Yes Hx Neurological Problems: Yes Hx Cerebrovascular Accident: No Hx Seizures: Yes Hx Vertigo: Yes Hx Dizziness: Yes Hx Headaches: Yes Hx Weakness: Yes Hx Fatigue: Yes Hx Neurologic Surgery: No Review of Systems All Other Systems: negative except mentioned in HPI Physical Exam Vital Signs Date Time Temp Pulse Resp B/P (MAP) Pulse Ox O2 Delivery O2 Flow Rate FiO2 12/12/17 00:11 97.3 86 16 156/108 99 Room Air Sp02 EP Interpretation: reviewed, normal General Appearance: mild distress - Patient is a disheveled appearance, multiple IV previous sites Head: normocephalic, atraumatic Eyes: bilateral eye PERRL, bilateral eye EOMI ENT: normal pharynx Neck: full range of motion, supple, thyroid normal Respiratory: lungs clear Cardiovascular #1: regular rate, rhythm Gastrointestinal: non tender - However subjectively points to the epigastric area mainly, soft, no mass Genitourinary: no CVA tenderness Musculoskeletal: normal inspection Neurologic: normal inspection, alert, oriented x3 Skin: other - Disheveled appearance Lymphatic: no adenopathy Medical Decision Making Diagnostic Impression: Primary Impression: Intractable nausea and vomiting Additional Impression: Gastroparesis due to DM ER Course With the patient's history and examination, multiple differentials considered, including but not limited to , ectopic , ovarian torsion, gastritis, cholecystitis, pancreatitis, appendicitis Patient's lower reveals a fairly benign findings patient however he remained fairly uncomfortable nauseated Required repeat medication patient's blood pressure was also treated her Patient has had multiple visits to the emergency room There was a phone call from mom regarding social issues At this time patient requires admission further intervention regarding this given the insurance coverage patient was transferred for further inpatient care Labs Test 12/12/17 01:55 12/12/17 02:13 White Blood Count 7.6 K/UL (4.8-10.8) Red Blood Count 3.52 M/UL (4.20-5.40) Hemoglobin 11.1 G/DL (12.0-16.0) Hematocrit 34.1 % (37.0-47.0) Mean Corpuscular Volume 97 FL (80-99) Mean Corpuscular Hemoglobin 31.6 PG (27.0-31.0) Mean Corpuscular Hemoglobin Concent 32.6 G/DL (32.0-36.0) Red Cell Distribution Width 13.1 % (11.6-14.8) Platelet Count 116 K/UL (150-450) Mean Platelet Volume 12.2 FL (6.5-10.1) Neutrophils (%) (Auto) 70.7 % (45.0-75.0) Lymphocytes (%) (Auto) 22.3 % (20.0-45.0) Monocytes (%) (Auto) 5.4 % (1.0-10.0) Eosinophils (%) (Auto) 0.9 % (0.0-3.0) Basophils (%) (Auto) 0.7 % (0.0-2.0) Sodium Level 142 MMOL/L (136-145) Potassium Level 4.2 MMOL/L (3.5-5.1) Chloride Level 104 MMOL/L (98-107) Carbon Dioxide Level 31 MMOL/L (21-32) Anion Gap 7 mmol/L (5-15) Blood Urea Nitrogen 16 mg/dL (7-18) Creatinine 1.9 MG/DL (0.55-1.30) Estimat Glomerular Filtration Rate 35.5 mL/min (>60) Glucose Level 207 MG/DL (74-106) Calcium Level 9.2 MG/DL (8.5-10.1) Total Bilirubin 0.2 MG/DL (0.2-1.0) Aspartate Amino Transf (AST/SGOT) 19 U/L (15-37) Alanine Aminotransferase (ALT/SGPT) 10 U/L (12-78) Alkaline Phosphatase 208 U/L (46-116) Total Protein 8.3 G/DL (6.4-8.2) Albumin 3.5 G/DL (3.4-5.0) Globulin 4.8 g/dL Albumin/Globulin Ratio 0.7 (1.0-2.7) Lipase 27 U/L (73-393) Urine Color Pale yellow Urine Appearance Clear Urine pH 8 (4.5-8.0) Urine Specific [place] 1.015 (1.005-1.035) Urine Protein 2+ (NEGATIVE) Urine Glucose (UA) 4+ (NEGATIVE) Urine Ketones Negative (NEGATIVE) Urine Occult Blood 1+ (NEGATIVE) Urine Nitrite Negative (NEGATIVE) Urine Bilirubin Negative (NEGATIVE) Urine Urobilinogen Normal MG/DL (0.0-1.0) Urine Leukocyte Esterase 1+ (NEGATIVE) Urine RBC 0-2 /HPF (0 - 2) Urine WBC 0-2 /HPF (0 - 2) Urine Squamous Epithelial Cells Few /LPF (NONE/OCC) Urine Bacteria None /HPF (NONE) Last Vital Signs Date Time Temp Pulse Resp B/P (MAP) Pulse Ox O2 Delivery O2 Flow Rate FiO2 12/12/17 00:11 97.3 86 16 156/108 99 Room Air Status: improved Disposition: [facility] Condition: Serious SOPHY GARDNER D.O. Dec 12, 2017 01:06
[2017-12-12 02:04] LABS: BASOPHILS % (AUTO) 0.7 % (0.0-2.0); EOSINOPHILS % (AUTO) 0.9 % (0.0-3.0); HEMATOCRIT 34.1 % (37.0-47.0); HEMOGLOBIN 11.1 G/DL (12.0-16.0); LYMPHOCYTES % (AUTO) 22.3 % (20.0-45.0); MEAN CORPUSCULAR VOLUME 97 FL (80-99); MONOCYTES % (AUTO) 5.4 % (1.0-10.0); NEUTROPHILS % (AUTO) 70.7 % (45.0-75.0); PLATELET COUNT 116 K/UL (150-450); RED BLOOD COUNT 3.52 M/UL (4.20-5.40); RED CELL DISTRIBUTION WIDTH 13.1 % (11.6-14.8); WHITE BLOOD COUNT 7.6 K/UL (4.8-10.8)
[2017-12-12 02:15] LABS: ANION GAP 7 mmol/L (5-15); BLOOD UREA NITROGEN 16 mg/dL (7-18); CALCIUM 9.2 MG/DL (8.5-10.1); CARBON DIOXIDE 31 MMOL/L (21-32); CHLORIDE 104 MMOL/L (98-107); CREATININE 1.9 MG/DL (0.55-1.30); POTASSIUM 4.2 MMOL/L (3.5-5.1); SODIUM 142 MMOL/L (136-145)
[2017-12-12 02:20] LABS: ALANINE AMINOTRANSFERASE 10 U/L (12-78); ALBUMIN 3.5 G/DL (3.4-5.0); ALBUMIN/GLOBULIN RATIO 0.7 (1.0-2.7); ALKALINE PHOSPHATASE 208 U/L (46-116); ASPARTATE AMINO TRANSFERASE 19 U/L (15-37); BILIRUBIN,TOTAL 0.2 MG/DL (0.2-1.0)
[2017-12-12 02:23] LABS: APPEARANCE,URINE CLEAR; BILIRUBIN, URINE NEGATIVE (NEGATIVE); COLOR,URINE PALE YELLOW; GLUCOSE, URINE (UA) 4+ (NEGATIVE); KETONES,URINE NEGATIVE (NEGATIVE); LEUKOCYTE ESTERASE ,URINE 1+ (NEGATIVE); NITRITE,URINE NEGATIVE (NEGATIVE); PH,URINE 8 (4.5-8.0); PROTEIN,URINE 2+ (NEGATIVE); UROBILINOGEN,URINE NORMAL MG/DL (0.0-1.0)
[2017-12-12 03:06] VITALS: BP 189/103
[2017-12-12] MEDS ORDERED: Enalapril 5mg tab ORAL ONE (03:15)
[2017-12-12 03:36] VITALS: BP 184/90
[2018-02-06] MEDS ORDERED: NORVASC5 MG ORAL (07:36)
[2018-02-06] MEDS ORDERED: CATAPRES0.1 MG ORAL (07:37)
[2018-02-06] MEDS ORDERED: NOVOLOG100 UNIT/3 SUBQ (07:37)
[2018-02-06] MEDS ORDERED: LEVEMIR FL100 UNIT/1 SUBQ (07:38)
== END 2017-12-12 03:35 | disposition short-term general hospital (02) ==
LOC: EDUNIT# 00:10 → EDBD 00:10 → EMR 01:09
DX: E11.43 Type 2 diabetes mellitus with diabetic autonomic (poly)neuropathy (principal); K31.84 Gastroparesis; I10 Essential (primary) hypertension
CPT/HCPCS: 36415; 80053; 81003; 82962; 83690; 85025; 96374; 96375; 99285; J0360; J2405

== ENCOUNTER 2017-12-22 06:49 | Emergency (ER) | payer OTHER ==
[~2017-12-22] VITALS: Ht 167.6 cm; Wt 49.9 kg
--- NOTE | 2017-12-22 07:30 | Emergency Room Report ---
History of Present Illness General Chief Complaint: Altered Level of Consciousness Source: Medical Record, EMS Present Illness HPI 42-year-old female, history of polysubstance abuse, history of stroke, diabetes , on insulin, homeless but currently living with family, presenting with hypoglycemia/altered mental status. The family called for patient being altered , her glucose was 30 in the field, unable to get lying by EMS, given IM glucagon. Patient currently slurring words, however can say her name and some basic questions. However not at her baseline. No other history is able to be obtained Allergies: Coded Allergies: No Known Allergies (Verified , NONE, 12/12/17) Patient History Past Medical History: see triage record Past Surgical History: none Pertinent Family History: none Reviewed Nursing Documentation: PMH: Agreed, PSxH: Agreed Nursing Documentation-PMH Hx Cardiac Problems: Yes Hx Hypertension: Yes Hx Pacemaker: No Hx Asthma: No Hx COPD: No Hx Diabetes: Yes Hx Cancer: No Hx Gastrointestinal Problems: Yes Hx Neurological Problems: Yes Hx Cerebrovascular Accident: No Hx Seizures: Yes Hx Vertigo: Yes Hx Dizziness: Yes Hx Headaches: Yes Hx Weakness: Yes Hx Fatigue: Yes Hx Neurologic Surgery: No Review of Systems All Other Systems: limited - altrted Physical Exam Vital Signs Date Time Temp Pulse Resp B/P (MAP) Pulse Ox O2 Delivery O2 Flow Rate FiO2 12/22/17 06:46 94.8 68 14 134/78 100 Room Air Sp02 EP Interpretation: reviewed, normal General Appearance: other - Thin chronically ill-appearing female, eyes open, poor historian, tired/lethargic Head: normocephalic, atraumatic Eyes: bilateral eye normal inspection, bilateral eye PERRL, bilateral eye EOMI ENT: normal ENT inspection, normal pharynx, normal voice, moist mucus membranes Neck: normal inspection, full range of motion, supple Respiratory: normal inspection, lungs clear, normal breath sounds, no respiratory distress, no retraction, no wheezing, speaking full sentences, chest symmetrical Cardiovascular #1: normal inspection, regular rate, rhythm, no edema, normal capillary refill Cardiovascular #2: 2+ radial (R), 2+ radial (L) Gastrointestinal: normal inspection, non tender, soft, non-distended, no guarding Musculoskeletal: normal inspection, back normal, normal range of motion, non- tender Neurologic: other - Oriented to person, moving all 4 extremities spontaneously , not cooperating with remaining part of neurological exam Psychiatric: other Skin: normal inspection, normal color, no rash, warm/dry, well hydrated, normal turgor Medical Decision Making Diagnostic Impression: Primary Impression: Hypoglycemia Additional Impressions: Altered level of consciousness Hypothermia ER Course 42-year-old female, altered mental status, hypoglycemia DDX: Electrolyte disturbance such as hypoglycemia Dehydration, hypovolemia, infectious, toxicology Plan: Obtain labs, ua, ucx, dextrose ER course: Pt slightly more alert 2/2 to glucagon given in field Initial BGM 60 in ED (previous 34) Given dextrose IV despite being fed and another amp dextrose, still low glucose noted also noted to be hypothermic, 92 - judy hugger given Disposition: Pt to be transferred to outside facility due to insurance purposes d/w receiving doctor, Dr Mazariegos Please note that this Emergency Department Report was dictated using [employer] technology software, occasionally this can lead to erroneous entry secondary to interpretation by the dictation equipment EKG Diagnostic Results EP Interpretation: Yes Rate: normal Rhythm: NSR ST Segments: T wave inversion in V3 and V4 ASA given to patient: No Rhythm Strip EP Interpretation: Yes Rate: 70 Rhythm: NSR, no PVCs, no ectopy Laboratory Tests Test 12/22/17 07:18 White Blood Count 5.2 K/UL (4.8-10.8) Red Blood Count 3.82 M/UL (4.20-5.40) L Hemoglobin 11.8 G/DL (12.0-16.0) L Hematocrit 37.8 % (37.0-47.0) Mean Corpuscular Volume 99 FL (80-99) Mean Corpuscular Hemoglobin 30.9 PG (27.0-31.0) Mean Corpuscular Hemoglobin Concent 31.3 G/DL (32.0-36.0) L Red Cell Distribution Width 13.5 % (11.6-14.8) Platelet Count 175 K/UL (150-450) Mean Platelet Volume 9.1 FL (6.5-10.1) Neutrophils (%) (Auto) % (45.0-75.0) Lymphocytes (%) (Auto) % (20.0-45.0) Monocytes (%) (Auto) % (1.0-10.0) Eosinophils (%) (Auto) % (0.0-3.0) Basophils (%) (Auto) % (0.0-2.0) Differential Total Cells Counted 100 Neutrophils % (Manual) 30 % (45-75) L Lymphocytes % (Manual) 58 % (20-45) H Monocytes % (Manual) 9 % (1-10) Eosinophils % (Manual) 3 % (0-3) Basophils % (Manual) 0 % (0-2) Band Neutrophils 0 % (0-8) Platelet Estimate Adequate Platelet Morphology Normal Hypochromasia 1+ Sodium Level 143 MMOL/L (136-145) Potassium Level 3.6 MMOL/L (3.5-5.1) Chloride Level 104 MMOL/L (98-107) Carbon Dioxide Level 29 MMOL/L (21-32) Anion Gap 10 mmol/L (5-15) Blood Urea Nitrogen 14 mg/dL (7-18) Creatinine 2.2 MG/DL (0.55-1.30) H Estimate Glomerular Filtration Rate 29.9 mL/min (>60) Glucose Level 88 MG/DL (74-106) Calcium Level 9.2 MG/DL (8.5-10.1) Total Bilirubin 0.1 MG/DL (0.2-1.0) L Aspartate Amino Transferase (AST) 29 U/L (15-37) Alanine Aminotransferase (ALT) 32 U/L (12-78) Alkaline Phosphatase 206 U/L (46-116) H Troponin I 0.000 ng/mL (0.000-0.056) Total Protein 8.2 G/DL (6.4-8.2) Albumin 3.4 G/DL (3.4-5.0) Globulin 4.8 g/dL Albumin/Globulin Ratio 0.7 (1.0-2.7) L Last Vital Signs Date Time Temp Pulse Resp B/P (MAP) Pulse Ox O2 Delivery O2 Flow Rate FiO2 12/22/17 06:46 94.8 68 14 134/78 100 Room Air Disposition: XFER SHT-TRM HOSP Condition: Serious Referrals: [facility],REFERR[facility] (PCP) Aldair Najera M.D. Dec 22, 2017 07:30
[2017-12-22 07:35] LABS: HEMATOCRIT 37.8 % (37.0-47.0); HEMOGLOBIN 11.8 G/DL (12.0-16.0); MEAN CORPUSCULAR VOLUME 99 FL (80-99); PLATELET COUNT 175 K/UL (150-450); RED BLOOD COUNT 3.82 M/UL (4.20-5.40); RED CELL DISTRIBUTION WIDTH 13.5 % (11.6-14.8); WHITE BLOOD COUNT 5.2 K/UL (4.8-10.8)
[2017-12-22 07:51] LABS: ANION GAP 10 mmol/L (5-15); BLOOD UREA NITROGEN 14 mg/dL (7-18); CALCIUM 9.2 MG/DL (8.5-10.1); CARBON DIOXIDE 29 MMOL/L (21-32); CHLORIDE 104 MMOL/L (98-107); CREATININE 2.2 MG/DL (0.55-1.30); POTASSIUM 3.6 MMOL/L (3.5-5.1); SODIUM 143 MMOL/L (136-145)
[2017-12-22 07:54] LABS: ALANINE AMINOTRANSFERASE 32 U/L (12-78); ALBUMIN 3.4 G/DL (3.4-5.0); ALBUMIN/GLOBULIN RATIO 0.7 (1.0-2.7); ALKALINE PHOSPHATASE 206 U/L (46-116); ASPARTATE AMINO TRANSFERASE 29 U/L (15-37); BILIRUBIN,TOTAL 0.1 MG/DL (0.2-1.0)
[2017-12-22 08:31] VITALS: BP 148/85
[2017-12-22] MEDS ORDERED: UNOBMED (10:19)
[2017-12-22 11:05] VITALS: BP 119/78
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
[2017-12-22 12:50] VITALS: BP 119/78
--- NOTE | 2017-12-24 19:22 | Cardiology Report ---
APPROVED REPORT EKG Measurement Heart [id number] 182P52 [id number] Normal sinus rhythm Left anterior fascicular block Nonspecific T wave abnormality Abnormal ECG
[2018-02-06] MEDS ORDERED: NORVASC5 MG ORAL (07:36)
[2018-02-06] MEDS ORDERED: CATAPRES0.1 MG ORAL (07:37)
[2018-02-06] MEDS ORDERED: NOVOLOG100 UNIT/3 SUBQ (07:37)
[2018-02-06] MEDS ORDERED: LEVEMIR FL100 UNIT/1 SUBQ (07:38)
== END 2017-12-22 12:59 | disposition short-term general hospital (02) ==
LOC: EDBD 06:49 → EMR 07:08 → EDBEDREQ 10:24 → EMR 12:59
DX: E11.649 Type 2 diabetes mellitus with hypoglycemia without coma (principal); R41.82 Altered mental status, unspecified; T68.XXXA Hypothermia, initial encounter; I10 Essential (primary) hypertension
CPT/HCPCS: 36415; 71045; 80053; 82962; 84484; 85007; 85025; 93005; 96374; 96375; 99285

== ENCOUNTER 2018-01-26 22:09 | Inpatient (IN) | payer OTHER ==
[~2018-01-26] VITALS: Ht 160 cm; Wt 45.4 kg
[2018-01-26] MEDS ORDERED: CATAPRES0.1 MG ORAL (22:13)
[2018-01-26] MEDS ORDERED: DEPAKOTE ER250 MG ORAL (22:13)
[2018-01-26] MEDS ORDERED: HYDROXYZINE PAM25 MG PO (22:13)
[2018-01-26 22:52] LABS: APPEARANCE,URINE CLEAR; BILIRUBIN, URINE NEGATIVE (NEGATIVE); COLOR,URINE PALE YELLOW; GLUCOSE, URINE (UA) 4+ (NEGATIVE); KETONES,URINE 3+ (NEGATIVE); LEUKOCYTE ESTERASE ,URINE 1+ (NEGATIVE); NITRITE,URINE NEGATIVE (NEGATIVE); PH,URINE 5 (4.5-8.0); PROTEIN,URINE 1+ (NEGATIVE); UROBILINOGEN,URINE NORMAL MG/DL (0.0-1.0)
[2018-01-26 23:05] LABS: BASOPHILS % (AUTO) 0.9 % (0.0-2.0); EOSINOPHILS % (AUTO) 0.1 % (0.0-3.0); HEMATOCRIT 32.3 % (37.0-47.0); HEMOGLOBIN 10.3 G/DL (12.0-16.0); LYMPHOCYTES % (AUTO) 10.5 % (20.0-45.0); MEAN CORPUSCULAR VOLUME 100 FL (80-99); MONOCYTES % (AUTO) 7.1 % (1.0-10.0); NEUTROPHILS % (AUTO) 81.5 % (45.0-75.0); PLATELET COUNT 253 K/UL (150-450); RED BLOOD COUNT 3.22 M/UL (4.20-5.40); RED CELL DISTRIBUTION WIDTH 13.3 % (11.6-14.8); WHITE BLOOD COUNT 11.6 K/UL (4.8-10.8)
[2018-01-26 23:15] LABS: ANION GAP 18 mmol/L (5-15); BLOOD UREA NITROGEN 21 mg/dL (7-18); CALCIUM 9.6 MG/DL (8.5-10.1); CARBON DIOXIDE 21 MMOL/L (21-32); CHLORIDE 83 MMOL/L (98-107); CREATININE 3.3 MG/DL (0.55-1.30); SODIUM 120 MMOL/L (136-145)
[2018-01-26 23:17] LABS: POTASSIUM 6.1 MMOL/L (3.5-5.1)
[2018-01-26 23:30] VITALS: BP 111/68
[2018-01-26] MEDS ORDERED: LORazepam Inj 2mg/ml 1ml IV PRN (23:30)
[2018-01-26] MEDS ORDERED: Insulin Rate Change 1 Each MISC PRN (23:30)
[2018-01-26] MEDS ORDERED: Albuterol/Ipratropium 3ml neb HHN PRN (23:30)
[2018-01-26] MEDS ORDERED: Morphine Sulfate 4mg/ml Inj IVP PRN (23:30)
[2018-01-26] MEDS ORDERED: Nitroglycerin Subl 0.4mg tab SL PRN (23:30)
[2018-01-26] MEDS ORDERED: Miralax 17gm pkt ORAL PRN (23:30)
[2018-01-26] MEDS ORDERED: Lidocaine 1% Plain 30 ml INJ ONE (23:39)
[2018-01-27] VITALS (23 sets, daily range): BP systolic 92–186; BP diastolic 61–101
[2018-01-27 00:22] LABS: INR 0.9 (0.9-1.1)
[2018-01-27 00:24] LABS: ANION GAP 16 mmol/L (5-15); BLOOD UREA NITROGEN 20 mg/dL (7-18); CALCIUM 8.9 MG/DL (8.5-10.1); CARBON DIOXIDE 21 MMOL/L (21-32); CHLORIDE 84 MMOL/L (98-107); CREATININE 3.2 MG/DL (0.55-1.30); POTASSIUM 5.9 MMOL/L (3.5-5.1); SODIUM 121 MMOL/L (136-145)
--- NOTE | 2018-01-27 00:25 | Emergency Room Report ---
History of Present Illness General Chief Complaint: Altered Level of Consciousness Source: EMS Present Illness HPI Patient presents with complaints of altered mental status Patient has had multiple visits to our emergency room Has poor control diabetes Also drug abuse Patient's glucose upon arrival was elevated Patient nonverbal initially However becoming more awake throughout her stay Patient is noncompliant Denies any headache denies any chest pain She does feel generally fatigued denies any focal weakness Allergies: Coded Allergies: No Known Allergies (Verified , NONE, 12/12/17) Patient History Limited by: medical condition Past Medical History: see triage record Pertinent Family History: unable to obtain Reviewed Nursing Documentation: PMH: Agreed, PSxH: Agreed Nursing Documentation-PMH Hx Cardiac Problems: Yes Hx Hypertension: Yes Hx Pacemaker: No Hx Asthma: No Hx COPD: No Hx Diabetes: Yes Hx Cancer: No Hx Gastrointestinal Problems: Yes History Of Psychiatric Problem: Yes - Unspecified Hx Neurological Problems: Yes Hx Cerebrovascular Accident: No Hx Seizures: Yes Hx Vertigo: Yes Hx Dizziness: Yes Hx Headaches: Yes Hx Weakness: Yes Hx Fatigue: Yes Hx Neurologic Surgery: No Review of Systems All Other Systems: limited - Other than the ones mentioned in the history of present illness all others are reviewed however they do stay limited due to the patient's mental status Physical Exam Vital Signs Date Time Temp Pulse Resp B/P (MAP) Pulse Ox O2 Delivery O2 Flow Rate FiO2 01/26/18 22:09 98.2 78 14 124/80 98 Room Air 98.2 Sp02 EP Interpretation: reviewed, normal General Appearance: mild distress - Altered Head: normocephalic, atraumatic Eyes: bilateral eye PERRL ENT: dry mucus membranes Neck: supple, thyroid normal Respiratory: lungs clear, normal breath sounds Cardiovascular #1: no edema, no gallop, tachycardia Gastrointestinal: non tender, soft Genitourinary: no CVA tenderness Musculoskeletal: back normal, other - Initially not following commands however at this time no focal weakness on reevaluation Neurologic: other - Initially patient presented altered responsive to physical stimuli only, on repeat evaluation patient has become more awake verbally responsive, Skin: other - poor turgor Lymphatic: no adenopathy Procedures Critical Care Time Critical Care Time 50 minutes for multiple re\re evaluations Concerning for renal neurological injury not including any procedural time Central Line Central Line : Consent: Emergent Central Line Lumen: triple Maximal Sterile Barrier Tech: yes cap, yes mask, yes sterile gown, yes sterile gloves, yes large sterile sheet, yes hand hygiene, yes chlorhexidine prep Central Line Postion: femoral (R) Anesthesia: Lidocaine cc's of anesthesia: 5 Complications: none Central Line Post Position: sutured Attempts: One Patient Tolerated: Well Complications: None Medical Decision Making Diagnostic Impression: Primary Impression: DKA (diabetic ketoacidoses) ER Course Patient's presentation is concerning Extensive blood work is initiated along with imaging Patient's glucose is significantly elevated There are signs of acidosis and the patient is placed on an insulin drip along with extensive fluids Patient required triple line central line placement refer to her note for specifics At this time is admitted to ICU in critical condition Labs Test 01/26/18 22:32 01/26/18 22:50 01/26/18 23:35 Urine Color Pale yellow Urine Appearance Clear Urine pH 5 (4.5-8.0) Urine Specific [place] 1.005 (1.005-1.035) Urine Protein 1+ (NEGATIVE) Urine Glucose (UA) 4+ (NEGATIVE) Urine Ketones 3+ (NEGATIVE) Urine Occult Blood 1+ (NEGATIVE) Urine Nitrite Negative (NEGATIVE) Urine Bilirubin Negative (NEGATIVE) Urine Urobilinogen Normal MG/DL (0.0-1.0) Urine Leukocyte Esterase 1+ (NEGATIVE) Urine RBC 0-2 /HPF (0 - 2) Urine WBC 2-4 /HPF (0 - 2) Urine Squamous Epithelial Cells Few /LPF (NONE/OCC) Urine Amorphous Sediment Few /LPF (NONE) Urine Bacteria Few /HPF (NONE) Urine Yeast Few /HPF (NONE) Urine Opiates Screen Negative (NEGATIVE) Urine Barbiturates Screen Negative (NEGATIVE) Phencyclidine (PCP) Screen Negative (NEGATIVE) Urine Amphetamines Screen Negative (NEGATIVE) Urine Benzodiazepines Screen Negative (NEGATIVE) Urine Cocaine Screen Positive (NEGATIVE) Urine Marijuana (THC) Screen Negative (NEGATIVE) White Blood Count 11.6 K/UL (4.8-10.8) Red Blood Count 3.22 M/UL (4.20-5.40) Hemoglobin 10.3 G/DL (12.0-16.0) Hematocrit 32.3 % (37.0-47.0) Mean Corpuscular Volume 100 FL (80-99) Mean Corpuscular Hemoglobin 32.0 PG (27.0-31.0) Mean Corpuscular Hemoglobin Concent 31.9 G/DL (32.0-36.0) Red Cell Distribution Width 13.3 % (11.6-14.8) Platelet Count 253 K/UL (150-450) Mean Platelet Volume 8.3 FL (6.5-10.1) Neutrophils (%) (Auto) 81.5 % (45.0-75.0) Lymphocytes (%) (Auto) 10.5 % (20.0-45.0) Monocytes (%) (Auto) 7.1 % (1.0-10.0) Eosinophils (%) (Auto) 0.1 % (0.0-3.0) Basophils (%) (Auto) 0.9 % (0.0-2.0) Sodium Level 120 MMOL/L (136-145) Potassium Level 6.1 MMOL/L (3.5-5.1) Chloride Level 83 MMOL/L (98-107) Carbon Dioxide Level 21 MMOL/L (21-32) Anion Gap 18 mmol/L (5-15) Blood Urea Nitrogen 21 mg/dL (7-18) Creatinine 3.3 MG/DL (0.55-1.30) Estimat Glomerular Filtration Rate 18.8 mL/min (>60) Glucose Level 1298 MG/DL (74-106) Calcium Level 9.6 MG/DL (8.5-10.1) Lipase 67 U/L (73-393) Serum Alcohol < 3 mg/dL Rhythm Strip Diag. Results EP Interpretation: yes Rate: 88 Rhythm: NSR, no PVC's, no ectopy Last Vital Signs Date Time Temp Pulse Resp B/P (MAP) Pulse Ox O2 Delivery O2 Flow Rate FiO2 01/26/18 23:30 98.2 79 17 111/68 99 Room Air 98.2 Status: improved Disposition: ADMITTED INPATIENT Condition: Critical Referrals: [facility],REFERR[facility] (PCP) SOPHY GARDNER D.O. Jan 27, 2018 00:25
[2018-01-27 00:27] LABS: ALANINE AMINOTRANSFERASE 17 U/L (12-78); ALBUMIN 2.8 G/DL (3.4-5.0); ALKALINE PHOSPHATASE 229 U/L (46-116); ASPARTATE AMINO TRANSFERASE 17 U/L (15-37); BILIRUBIN,DIRECT 0.1 MG/DL (0.0-0.3); BILIRUBIN,TOTAL 0.4 MG/DL (0.2-1.0); PHOSPHORUS 4.6 MG/DL (2.5-4.9)
--- NOTE | 2018-01-27 06:22 | History and Physical ---
History of Present Illness General Date patient seen: Jan 27, 2018 Reason for Hospitalization: Altered Level of Consciousness Present Illness HPI 42 year old female with hx of DM, multiple DKA in the past presented to ER with complaints of altered mental status Patient's glucose upon arrival was elevated. Denies any headache denies any chest pain She does feel generally fatigued denies any focal weakness. She was started on insulin drip and transferred to ICU. Allergies: Coded Allergies: No Known Allergies (Verified , NONE, 12/12/17) Medication History Scheduled Amlodipine Besylate (Norvasc), 5 MG ORAL Q12HR, (Reported) Aspirin* (Aspirin*), 81 MG ORAL DAILY Calcium Carbonate (Calcium Carbonate), 500 MG PO DAILY, (Reported) Clonazepam (Clonazepam), 1 MG ORAL DAILY Clonidine Hcl* (Catapres*), 0.1 MG ORAL EVERY 6 HOURS, (Reported) Divalproex Sodium (Divalproex Sodium Er), 1,500 MG ORAL QHS Divalproex Sodium* (Depakote Er*), 250 MG ORAL EVERY 12 HOURS, (Reported) Fluconazole (Fluconazole), 200 MG ORAL DAILY Insulin Aspart* (Novolog*), 0 SUBQ BEFORE MEALS AND HS, (Reported) Insulin Detemir (Levemir Flexpen), 10 UNITS SUBQ Q12HR Ranitidine Hcl* (Zantac*), 150 MG ORAL TWICE A DAY, (Reported) Scheduled PRN Ondansetron* (Zofran*), 4 MG ORAL Q6H PRN Miscellaneous Medications Hydroxyzine Pamoate (Hydroxyzine Pamoate), 25 MG PO, (Reported) Unable to Obtain Medications (Unable To Obtain Meds), (Reported) Patient History Healthcare decision maker self Resuscitation status Full Code Advanced Directive on File No Past Medical/Surgical History Past Medical/Surgical History: (1) Non compliance with medical treatment (2) HTN (hypertension) (3) Gastroparesis due to DM (4) Seizure disorder (5) Diabetes Review of Systems All Other Systems: negative except mentioned in HPI Physical Exam General Appearance: WD/WN, no apparent distress Lines, tubes and drains: peripheral HEENT: normocephalic, atraumatic Neck: non-tender, normal alignment Respiratory/Chest: chest wall non-tender, lungs clear Breasts: no masses Cardiovascular/Chest: normal peripheral pulses, normal rate Abdomen: normal bowel sounds, non tender Genitourinary/Rectal: normal genital exam, normal rectal exam Extremities: normal range of motion, non-tender Skin Exam: normal pigmentation 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 II-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 grossly normal Last 24 Hour Vital Signs Date Time Temp Pulse Resp B/P (MAP) Pulse Ox O2 Delivery O2 Flow Rate FiO2 01/27/18 05:00 72 18 120/84 100 Room Air 01/27/18 04:00 84 18 136/97 100 Room Air 01/27/18 03:00 84 18 136/97 100 Room Air 01/27/18 02:00 97.4 84 18 136/97 100 Room Air 97.4 01/27/18 02:00 84 01/27/18 01:35 98.2 83 16 128/76 100 Room Air 98.2 01/27/18 01:20 98.2 83 16 128/76 100 Room Air 98.2 01/27/18 00:38 83 13 105/63 100 Room Air 01/27/18 00:00 113/72 01/26/18 23:30 98.2 79 17 111/68 99 Room Air 98.2 01/26/18 22:09 98.2 78 14 124/80 98 Room Air 98.2 Intake and Output 01/26/18 01/27/18 19:00 07:00 Intake Total 343 ml Output Total 700 ml Balance -357 ml Intake Oral 0 ml IV Total 343 ml Output Urine Total 700 ml # Voids 1 Laboratory Tests Test 01/26/18 22:32 01/26/18 22:50 01/26/18 23:35 01/27/18 02:30 Urine Color Pale yellow Urine Appearance Clear Urine pH 5 (4.5-8.0) Urine Specific [place] 1.005 (1.005-1.035) Urine Protein 1+ (NEGATIVE) H Urine Glucose (UA) 4+ (NEGATIVE) H Urine Ketones 3+ (NEGATIVE) H Urine Occult Blood 1+ (NEGATIVE) H Urine Nitrite Negative (NEGATIVE) Urine Bilirubin Negative (NEGATIVE) Urine Urobilinogen Normal MG/DL (0.0-1.0) Urine Leukocyte Esterase 1+ (NEGATIVE) H Urine RBC 0-2 /HPF (0 - 2) Urine WBC 2-4 /HPF (0 - 2) Urine Squamous Epithelial Cells Few /LPF (NONE/OCC) Urine Amorphous Sediment Few /LPF (NONE) H Urine Bacteria Few /HPF (NONE) Urine Yeast Few /HPF (NONE) H Urine Opiates Screen Negative (NEGATIVE) Urine Barbiturates Screen Negative (NEGATIVE) Phencyclidine (PCP) Screen Negative (NEGATIVE) Urine Amphetamines Screen Negative (NEGATIVE) Urine Benzodiazepines Screen Negative (NEGATIVE) Urine Cocaine Screen Positive (NEGATIVE) H Urine Marijuana (THC) Screen Negative (NEGATIVE) White Blood Count 11.6 K/UL (4.8-10.8) H Red Blood Count 3.22 M/UL (4.20-5.40) L Hemoglobin 10.3 G/DL (12.0-16.0) L Hematocrit 32.3 % (37.0-47.0) L Mean Corpuscular Volume 100 FL (80-99) H Mean Corpuscular Hemoglobin 32.0 PG (27.0-31.0) H Mean Corpuscular Hemoglobin Concent 31.9 G/DL (32.0-36.0) L Red Cell Distribution Width 13.3 % (11.6-14.8) Platelet Count 253 K/UL (150-450) Mean Platelet Volume 8.3 FL (6.5-10.1) Neutrophils (%) (Auto) 81.5 % (45.0-75.0) H Lymphocytes (%) (Auto) 10.5 % (20.0-45.0) L Monocytes (%) (Auto) 7.1 % (1.0-10.0) Eosinophils (%) (Auto) 0.1 % (0.0-3.0) Basophils (%) (Auto) 0.9 % (0.0-2.0) Sodium Level 120 MMOL/L (136-145) L 121 MMOL/L (136-145) L Potassium Level 6.1 MMOL/L (3.5-5.1) *H 5.9 MMOL/L (3.5-5.1) H Chloride Level 83 MMOL/L (98-107) L 84 MMOL/L (98-107) L Carbon Dioxide Level 21 MMOL/L (21-32) 21 MMOL/L (21-32) Anion Gap 18 mmol/L (5-15) H 16 mmol/L (5-15) H Blood Urea Nitrogen 21 mg/dL (7-18) H 20 mg/dL (7-18) H Creatinine 3.3 MG/DL (0.55-1.30) H 3.2 MG/DL (0.55-1.30) H Estimat Glomerular Filtration Rate 18.8 mL/min (>60) 19.4 mL/min (>60) Glucose Level 1298 MG/DL (74-106) *H 1202 MG/DL (74-106) *H 632 MG/DL (74-106) #*H Calcium Level 9.6 MG/DL (8.5-10.1) 8.9 MG/DL (8.5-10.1) Lipase 67 U/L (73-393) L Serum Alcohol < 3 mg/dL Prothrombin Time 9.8 SEC (9.30-11.50) Prothromb Time International Ratio 0.9 (0.9-1.1) Activated Partial Thromboplast Time 20 SEC (23-33) L Phosphorus Level 4.6 MG/DL (2.5-4.9) Total Bilirubin 0.4 MG/DL (0.2-1.0) Direct Bilirubin 0.1 MG/DL (0.0-0.3) Aspartate Amino Transf (AST/SGOT) 17 U/L (15-37) Alanine Aminotransferase (ALT/SGPT) 17 U/L (12-78) Alkaline Phosphatase 229 U/L (46-116) H Total Protein 7.6 G/DL (6.4-8.2) Albumin 2.8 G/DL (3.4-5.0) L Height (Feet): 5 Height (Inches): 3.00 Weight (Pounds): 100 Medications Current Medications Medications (Trade) Dose Ordered Sig/Mateo Route PRN Reason Start Time Stop Time Status Last Admin Dose Admin Acetaminophen (Tylenol) 650 mg Q4H PRN ORAL Fever 01/26/18 23:30 02/25/18 23:29 Albuterol/ Ipratropium (Albuterol/ Ipratropium) 3 ml EVERY 4 HOURS PRN HHN Shortness of Breath 01/26/18 23:30 01/31/18 23:29 Amlodipine Besylate (Norvasc) 5 mg Q12HR ORAL 01/27/18 09:00 02/26/18 08:59 Calcium Carbonate (Os-Osvaldo) 500 mg DAILY ORAL 01/27/18 09:00 02/26/18 08:59 Clonidine HCl (Catapres Tab) 0.1 mg EVERY 6 HOURS ORAL 01/27/18 00:00 02/26/18 00:00 Dextrose (Dextrose 50%) PRN PRN IV HYPOGLYCEMIA 01/27/18 03:45 02/26/18 03:44 Divalproex Sodium (Depakote ER) 1,500 mg QHS ORAL 01/27/18 21:00 02/26/18 20:59 Heparin Sodium (Porcine) (Heparin 5000 units/ml) 5,000 units EVERY 12 HOURS SUBQ 01/27/18 09:00 02/26/18 08:59 Insulin Human Regular (NovoLIN R) 5 units PRN PRN IV BS 200-299 01/27/18 03:45 02/26/18 03:44 01/27/18 04:25 Insulin Human Regular (NovoLIN R) 10 units PRN PRN IV BS=>300 01/27/18 03:45 02/26/18 03:44 Insulin Human Regular 100 units/ Sodium Chloride 101 ml @ 0 mls/hr Q24H IV 01/27/18 03:45 02/26/18 03:44 Lorazepam (Ativan 2mg/ml 1ml) 2 mg EVERY 2 HOURS PRN IV agitation 01/26/18 23:30 02/02/18 23:29 Miscellaneous Medication (Insulin Rate Change) 1 ea PRN PRN MISC To Patient Comfort 01/26/18 23:30 02/25/18 23:29 Morphine Sulfate (Morphine Sulfate) 4 mg EVERY 4 HOURS PRN IVP Severe Pain (Pain Scale 7-10) 01/26/18 23:30 02/02/18 23:29 Nitroglycerin (Ntg) 0.4 mg Q5M PRN SL Prn Chest Pain 01/26/18 23:30 02/25/18 23:29 Ondansetron HCl (Zofran) 4 mg Q6H PRN IVP Nausea & Vomiting 01/26/18 23:30 02/25/18 23:29 Ondansetron HCl (Zofran) 4 mg Q6H PRN IVP Nausea & Vomiting 01/26/18 23:30 02/25/18 23:29 Polyethylene Glycol (Miralax) 17 gm DAILYPRN PRN ORAL Constipation 01/26/18 23:30 02/25/18 23:29 Sodium Chloride 1,000 ml @ 150 mls/hr Q6H40M IV 01/26/18 23:29 02/25/18 23:28 01/26/18 02:00 Assessment/Plan Problem List: (1) DKA (diabetic ketoacidoses) ICD Codes: E13.10 - Other specified diabetes mellitus with ketoacidosis without coma SNOMED: 49682642, [id number] (2) Severe malnutrition ICD Codes: E43 - Unspecified severe protein-calorie malnutrition SNOMED: 16192222 (3) Cocaine abuse ICD Codes: F14.10 - Cocaine abuse, uncomplicated SNOMED: 60427870 (4) Psychiatric disorder ICD Codes: F99 - Mental disorder, not otherwise specified SNOMED: 39899869, [id number] Assessment/Plan insulin drip accucheck hourly iv fluids check electrolytes dvt prophylaxis start feeding when less nauseous. transfer out of ICU when comes off Insulin drip MILA LAINEZ Jan 27, 2018 06:22
[2018-01-27 07:11] LABS: BASOPHILS % (AUTO) 1.1 % (0.0-2.0); EOSINOPHILS % (AUTO) 0.3 % (0.0-3.0); HEMATOCRIT 24.2 % (37.0-47.0); HEMOGLOBIN 8.4 G/DL (12.0-16.0); LYMPHOCYTES % (AUTO) 20.9 % (20.0-45.0); MEAN CORPUSCULAR VOLUME 92 FL (80-99); MONOCYTES % (AUTO) 13.2 % (1.0-10.0); NEUTROPHILS % (AUTO) 64.5 % (45.0-75.0); PLATELET COUNT 252 K/UL (150-450); RED BLOOD COUNT 2.63 M/UL (4.20-5.40); RED CELL DISTRIBUTION WIDTH 12.4 % (11.6-14.8); WHITE BLOOD COUNT 13.1 K/UL (4.8-10.8)
[2018-01-27 07:16] LABS: ANION GAP 9 mmol/L (5-15); BLOOD UREA NITROGEN 18 mg/dL (7-18); CARBON DIOXIDE 27 MMOL/L (21-32); CHLORIDE 107 MMOL/L (98-107); CREATININE 2.5 MG/DL (0.55-1.30); POTASSIUM 3.8 MMOL/L (3.5-5.1); SODIUM 143 MMOL/L (136-145)
[2018-01-27] MEDS: Potassium Chloride 10 MEQ in D5 1/2NS 1,000 ML IV SCH ×3 (08:32→22:02)
[2018-01-27] MEDS: Heparin 5000 units/ml inj SUBQ SCH ×2 (08:38→20:16)
[2018-01-27] MEDS: NovoLOG Insulin Flexpen SUBQ SCH ×3 (11:49→20:15)
--- NOTE | 2018-01-27 16:25 | Cardiology Report ---
APPROVED REPORT EKG Measurement Heart [id number] 160P61 [id number] Normal sinus rhythm Left anterior fascicular block Nonspecific T wave abnormality Abnormal ECG
[2018-01-27] MEDS ORDERED: Depakote ER 500mg tab ORAL SCH (21:00)
[2018-01-27] MEDS ORDERED: Nitroglycerin Subl 0.4mg tab SL PRN (21:15)
[2018-01-27] MEDS ORDERED: Miralax 17gm pkt ORAL PRN (22:00)
[2018-01-27] MEDS ORDERED: Albuterol/Ipratropium 3ml neb HHN PRN (22:00)
[2018-01-27] MEDS ORDERED: Morphine Sulfate 4mg/ml Inj IVP PRN (22:00)
[2018-01-27] MEDS ORDERED: LORazepam Inj 2mg/ml 1ml IV PRN (22:00)
[2018-01-28] VITALS: BP 120/77
[2018-01-28 04:00] VITALS: BP 116/77
[2018-01-28 05:05] LABS: BASOPHILS % (AUTO) 0.5 % (0.0-2.0); HEMATOCRIT 25.9 % (37.0-47.0); HEMOGLOBIN 8.8 G/DL (12.0-16.0); LYMPHOCYTES % (AUTO) 30.7 % (20.0-45.0); MEAN CORPUSCULAR VOLUME 96 FL (80-99); MONOCYTES % (AUTO) 5.8 % (1.0-10.0); PLATELET COUNT 254 K/UL (150-450); RED CELL DISTRIBUTION WIDTH 13.2 % (11.6-14.8); WHITE BLOOD COUNT 11.2 K/UL (4.8-10.8)
[2018-01-28 05:23] LABS: ALANINE AMINOTRANSFERASE 15 U/L (12-78); ALBUMIN 2.4 G/DL (3.4-5.0); ALBUMIN/GLOBULIN RATIO 0.6 (1.0-2.7); ALKALINE PHOSPHATASE 191 U/L (46-116); AMYLASE 32 U/L (25-115); ANION GAP 8 mmol/L (5-15); ASPARTATE AMINO TRANSFERASE 22 U/L (15-37); BILIRUBIN,TOTAL 0.2 MG/DL (0.2-1.0); BLOOD UREA NITROGEN 13 mg/dL (7-18); CALCIUM 8.1 MG/DL (8.5-10.1); CARBON DIOXIDE 25 MMOL/L (21-32); CHLORIDE 99 MMOL/L (98-107); CREATININE 2.3 MG/DL (0.55-1.30); PHOSPHORUS 2.5 MG/DL (2.5-4.9); POTASSIUM 4.2 MMOL/L (3.5-5.1); SODIUM 131 MMOL/L (136-145)
[2018-01-28] MEDS: NovoLOG Insulin Flexpen SUBQ SCH ×5 (05:48→21:03)
--- NOTE | 2018-01-28 07:26 | General Progress Note ---
Assessment/Plan Problem List: (1) DKA (diabetic ketoacidoses) ICD Codes: E13.10 - Other specified diabetes mellitus with ketoacidosis without coma SNOMED: 98741145, 029662232 (2) Anemia ICD Codes: D64.9 - Anemia, unspecified SNOMED: 732007842 (3) HTN (hypertension) ICD Codes: I10 - Essential (primary) hypertension SNOMED: 61194024 (4) Non compliance with medical treatment ICD Codes: Z91.19 - Patient's noncompliance with other medical treatment and regimen SNOMED: 3950662 (5) Gastroparesis due to DM ICD Codes: E11.43 - Type 2 diabetes mellitus with diabetic autonomic (poly) neuropathy; K31.84 - Gastroparesis SNOMED: 38899913, 445378765 (6) Diabetes ICD Codes: E11.9 - Type 2 diabetes mellitus without complications SNOMED: 59082797 Assessment/Plan add Levemir 10 units bid continue NISS difficult patient to work with - non compliant and does not want to communicate Subjective ROS Limited/Unobtainable: Yes Allergies: Coded Allergies: No Known Allergies (Verified , NONE, 12/12/17) Subjective patient is known to me difficult patient to work with - non compliant and does not want to communicate admitted with recurrent DKA - underlying T1DM DKA resolved and transferred to Med Surg Objective Last 24 Hour Vital Signs Date Time Temp Pulse Resp B/P (MAP) Pulse Ox O2 Delivery O2 Flow Rate FiO2 01/28/18 04:59 116/77 01/28/18 04:00 98.8 71 18 116/77 100 98.8 01/28/18 00:00 97.0 62 20 120/77 100 97.0 01/27/18 23:03 139/80 01/27/18 21:58 97.0 78 20 129/80 100 97.0 01/27/18 21:00 71 17 113/73 Room Air 01/27/18 20:17 73 126/73 01/27/18 20:00 73 17 126/73 Room Air 01/27/18 20:00 73 01/27/18 19:00 71 17 99/62 100 Room Air 01/27/18 18:00 72 17 115/73 100 Room Air 01/27/18 17:00 78 17 158/88 100 Room Air 01/27/18 16:26 186/93 3/6/18 16:00 79 01/27/18 16:00 87 17 186/93 100 Room Air 01/27/18 15:00 80 17 112/61 100 Room Air 01/27/18 14:00 75 17 130/67 100 Room Air 01/27/18 13:00 85 17 117/101 100 Room Air 01/27/18 12:00 86 01/27/18 12:00 117/101 01/27/18 12:00 84 17 177/90 100 Room Air 01/27/18 11:00 82 17 169/88 100 Room Air 01/27/18 10:00 76 17 173/88 100 Room Air 01/27/18 09:00 79 17 179/91 100 Room Air 01/27/18 08:52 78 18 Room Air 01/27/18 08:38 87 121/93 01/27/18 08:00 78 18 121/93 100 Room Air 01/27/18 08:00 85 Intake and Output 01/27/18 01/28/18 19:00 07:00 Intake Total 750 ml 900 ml Output Total 0 ml Balance 750 ml 900 ml Intake Oral 0 ml 300 ml IV Total 750 ml 600 ml Output Urine Total 0 ml # Voids 1 Laboratory Tests 01/28/18 04:50: White Blood Count 11.2H, Red Blood Count 2.70L, Hemoglobin 8.8L, Hematocrit 25.9L, Mean Corpuscular Volume 96, Mean Corpuscular Hemoglobin 32.5H, Mean Corpuscular Hemoglobin Concent 33.9, Red Cell Distribution Width 13.2, Platelet Count 254, Mean Platelet Volume 7.6, Neutrophils (%) (Auto) 62.0, Lymphocytes (% ) (Auto) 30.7, Monocytes (%) (Auto) 5.8, Eosinophils (%) (Auto) 1.0, Basophils ( %) (Auto) 0.5, Erythrocyte Sedimentation Rate 109H, Sodium Level 131#L, Potassium Level 4.2, Chloride Level 99, Carbon Dioxide Level 25, Anion Gap 8, Blood Urea Nitrogen 13, Creatinine 2.3H, Estimat Glomerular Filtration Rate 28.5 , Glucose Level 490#H, Calcium Level 8.1L, Phosphorus Level 2.5, Magnesium Level 1.3L, Total Bilirubin 0.2, Aspartate Amino Transf (AST/SGOT) 22, Alanine Aminotransferase (ALT/SGPT) 15, Alkaline Phosphatase 191H, C-Reactive Protein, Quantitative 3.2H, Total Protein 6.6, Albumin 2.4L, Globulin 4.2, Albumin/ Globulin Ratio 0.6L, Amylase Level 32, Lipase 37L Height (Feet): 5 Height (Inches): 3.00 Weight (Pounds): 100 General Appearance: no apparent distress Neck: normal alignment Cardiovascular: normal rate Respiratory/Chest: lungs clear Abdomen: normal bowel sounds Objective Current Medications Medications (Trade) Dose Ordered Sig/Mateo Route PRN Reason Start Time Stop Time Status Last Admin Dose Admin Acetaminophen (Tylenol) 650 mg Q4H PRN ORAL Fever 01/27/18 22:00 02/25/18 21:59 Albuterol/ Ipratropium (Albuterol/ Ipratropium) 3 ml Q4H PRN HHN Shortness of Breath 01/27/18 22:00 02/01/18 21:59 Amlodipine Besylate (Norvasc) 5 mg Q12HR ORAL 01/28/18 09:00 02/26/18 08:59 Calcium Carbonate (Os-Osvaldo) 1,250 mg DAILY ORAL 01/28/18 09:00 02/26/18 08:59 Clonidine HCl (Catapres Tab) 0.1 mg EVERY 6 HOURS ORAL 01/28/18 00:00 02/26/18 00:00 01/27/18 23:03 Dextrose (Dextrose 50%) STAT PRN IV Hypoglycemia 01/27/18 22:00 02/26/18 21:59 Divalproex Sodium (Depakote ER) 1,500 mg QHS ORAL 01/28/18 21:00 02/26/18 20:59 Heparin Sodium (Porcine) (Heparin 5000 units/ml) 5,000 units EVERY 12 HOURS SUBQ 01/28/18 09:00 02/26/18 08:59 Insulin Aspart (NovoLOG) BEFORE MEALS AND HS SUBQ 01/28/18 06:30 02/26/18 11:29 01/28/18 05:48 Lorazepam (Ativan 2mg/ml 1ml) 2 mg Q2H PRN IV agitation 01/27/18 22:00 02/03/18 21:59 Morphine Sulfate (Morphine Sulfate) 4 mg Q4H PRN IVP Severe Pain (Pain Scale 7-10) 01/27/18 22:00 02/03/18 21:59 Nitroglycerin (Ntg) 0.4 mg Q5MIN PRN SL Prn Chest Pain 01/27/18 21:15 02/26/18 21:14 Ondansetron HCl (Zofran) 4 mg Q6H PRN IVP Nausea & Vomiting 01/27/18 22:00 02/25/18 21:59 Polyethylene Glycol (Miralax) 17 gm DAILYPRN PRN ORAL Constipation 01/27/18 22:00 02/25/18 21:59 Potassium Chloride 10 meq/ Dextrose/Sodium Chloride 1,005 ml @ 75 mls/hr [id number] IV 01/27/18 22:00 02/26/18 21:59 01/27/18 22:02 Temazepam (Restoril) 15 mg HSPRN PRN ORAL Insomnia 01/27/18 22:30 02/03/18 22:29 01/27/18 23:03 Item Value Date Time Bedside Blood Glucose 490 mg/dl H 01/28/18 0604 Bedside Blood Glucose 183 mg/dl H 01/27/182014 Bedside Blood Glucose 226 mg/dl H 01/27/18 1619 Bedside Blood Glucose 282 mg/dl H 01/27/18 1200 Bedside Blood Glucose 282 mg/dl H 01/27/18 0900 FRANCES BRADLEY 7, 2018 07:26
[2018-01-28 08:39] VITALS: BP 130/84
[2018-01-28] MEDS: Heparin 5000 units/ml inj SUBQ SCH ×2 (09:59→20:56)
[2018-01-28] MEDS: Levemir Flexpen SUBQ SCH ×2 (10:07→21:02)
[2018-01-28 12:07] VITALS: BP 130/87
[2018-01-28] MEDS ORDERED: NovoLOG Insulin Flexpen SUBQ ONE (12:26)
[2018-01-28 16:00] VITALS: BP 97/62
[2018-01-28] MEDS: Potassium Chloride 10 MEQ in D5 1/2NS 1,000 ML IV SCH (17:51)
--- NOTE | 2018-01-28 17:55 | Pulmonology Progress Note ---
Assessment/Plan Problems: (1) DKA (diabetic ketoacidoses) (2) Severe malnutrition (3) Cocaine abuse (4) Psychiatric disorder Assessment/Plan BS improving dc iv fluids advance diet sliding scale check wbc, ID consult Subjective ROS Limited/Unobtainable: No Interval Events: BS yumiko Allergies: Coded Allergies: No Known Allergies (Verified , NONE, 12/12/17) Objective Last 24 Hour Vital Signs Date Time Temp Pulse Resp B/P (MAP) Pulse Ox O2 Delivery O2 Flow Rate FiO2 01/28/18 16:00 97.9 74 18 97/62 100 97.9 01/28/18 12:36 130/87 01/28/18 12:07 97.7 71 18 130/87 100 Room Air 97.7 01/28/18 09:53 70 130/84 01/28/18 08:39 97.5 70 18 130/84 100 Room Air 97.5 01/28/18 04:59 116/77 01/28/18 04:00 98.8 71 18 116/77 100 98.8 01/28/18 00:00 97.0 62 20 120/77 100 97.0 01/27/18 23:03 139/80 01/27/18 21:58 97.0 78 20 129/80 100 97.0 01/27/18 21:00 71 17 113/73 Room Air 01/27/18 20:17 73 126/73 01/27/18 20:00 73 17 126/73 Room Air 01/27/18 20:00 73 01/27/18 19:00 71 17 99/62 100 Room Air 01/27/18 18:00 72 17 115/73 100 Room Air Intake and Output 01/27/18 01/28/18 19:00 07:00 Intake Total 750 ml 900 ml Output Total 0 ml Balance 750 ml 900 ml Intake Oral 0 ml 300 ml IV Total 750 ml 600 ml Output Urine Total 0 ml # Voids 1 Objective General Appearance: WD/WN Lines, tubes and drains: peripheral HEENT: normocephalic, atraumatic Neck: non-tender, normal alignment Respiratory/Chest: chest wall non-tender, lungs clear Cardiovascular/Chest: normal peripheral pulses, normal rate Abdomen: normal bowel sounds, non tender Extremities: normal range of motion, non-tender Skin Exam: normal pigmentation Microbiology Date/Time Source Procedure Growth Status 01/26/18 22:32 Urine,Clean Catch Urine Culture - Preliminary Mixed Gram Positive Organism Resulted Laboratory Tests 01/28/18 04:50: White Blood Count 11.2H, Red Blood Count 2.70L, Hemoglobin 8.8L, Hematocrit 25.9L, Mean Corpuscular Volume 96, Mean Corpuscular Hemoglobin 32.5H, Mean Corpuscular Hemoglobin Concent 33.9, Red Cell Distribution Width 13.2, Platelet Count 254, Mean Platelet Volume 7.6, Neutrophils (%) (Auto) 62.0, Lymphocytes (% ) (Auto) 30.7, Monocytes (%) (Auto) 5.8, Eosinophils (%) (Auto) 1.0, Basophils ( %) (Auto) 0.5, Erythrocyte Sedimentation Rate 109H, Sodium Level 131#L, Potassium Level 4.2, Chloride Level 99, Carbon Dioxide Level 25, Anion Gap 8, Blood Urea Nitrogen 13, Creatinine 2.3H, Estimat Glomerular Filtration Rate 28.5 , Glucose Level 490#H, Calcium Level 8.1L, Phosphorus Level 2.5, Magnesium Level 1.3L, Total Bilirubin 0.2, Aspartate Amino Transf (AST/SGOT) 22, Alanine Aminotransferase (ALT/SGPT) 15, Alkaline Phosphatase 191H, C-Reactive Protein, Quantitative 3.2H, Total Protein 6.6, Albumin 2.4L, Globulin 4.2, Albumin/ Globulin Ratio 0.6L, Amylase Level 32, Lipase 37L 01/28/18 13:40: Glucose Level 263#H Current Medications Medications (Trade) Dose Ordered Sig/Mateo Route PRN Reason Start Time Stop Time Status Last Admin Dose Admin Acetaminophen (Tylenol) 650 mg Q4H PRN ORAL Fever 01/27/18 22:00 02/25/18 21:59 Albuterol/ Ipratropium (Albuterol/ Ipratropium) 3 ml Q4H PRN HHN Shortness of Breath 01/27/18 22:00 02/01/18 21:59 Amlodipine Besylate (Norvasc) 5 mg Q12HR ORAL 01/28/18 09:00 02/26/18 08:59 01/28/18 09:53 Calcium Carbonate (Os-Osvaldo) 1,250 mg DAILY ORAL 01/28/18 09:00 02/26/18 08:59 01/28/18 09:53 Clonidine HCl (Catapres Tab) 0.1 mg EVERY 6 HOURS ORAL 01/28/18 00:00 02/26/18 00:00 01/28/18 12:36 Dextrose (Dextrose 50%) STAT PRN IV Hypoglycemia 01/28/18 07:30 02/27/18 07:29 Divalproex Sodium (Depakote ER) 1,500 mg QHS ORAL 01/28/18 21:00 02/26/18 20:59 Heparin Sodium (Porcine) (Heparin 5000 units/ml) 5,000 units EVERY 12 HOURS SUBQ 01/28/18 09:00 02/26/18 08:59 01/28/18 09:59 Insulin Aspart (NovoLOG) BEFORE MEALS AND HS SUBQ 01/28/18 06:30 02/26/18 11:29 01/28/18 11:54 Insulin Detemir (Levemir) 10 units Q12HR SUBQ 01/28/18 09:00 02/27/18 08:59 01/28/18 10:07 Lorazepam (Ativan 2mg/ml 1ml) 2 mg Q2H PRN IV agitation 01/27/18 22:00 02/03/18 21:59 Morphine Sulfate (Morphine Sulfate) 4 mg Q4H PRN IVP Severe Pain (Pain Scale 7-10) 01/27/18 22:00 02/03/18 21:59 Nitroglycerin (Ntg) 0.4 mg Q5MIN PRN SL Prn Chest Pain 01/27/18 21:15 02/26/18 21:14 Ondansetron HCl (Zofran) 4 mg Q6H PRN IVP Nausea & Vomiting 01/27/18 22:00 02/25/18 21:59 Polyethylene Glycol (Miralax) 17 gm DAILYPRN PRN ORAL Constipation 01/27/18 22:00 02/25/18 21:59 Potassium Chloride 10 meq/ Dextrose/Sodium Chloride 1,005 ml @ 75 mls/hr [id number] IV 01/27/18 22:00 02/26/18 21:59 01/27/18 22:02 Temazepam (Restoril) 15 mg HSPRN PRN ORAL Insomnia 01/27/18 22:30 02/03/18 22:29 01/27/18 23:03 MILA LAINEZ Jan 28, 2018 17:55
[2018-01-28 20:00] VITALS: BP 100/65
[2018-01-28] MEDS: Depakote ER 500mg tab ORAL SCH (20:51)
[2018-01-29] VITALS: BP 98/62
[2018-01-29 04:00] VITALS: BP 118/76
[2018-01-29] MEDS: NovoLOG Insulin Flexpen SUBQ SCH ×4 (05:43→21:46)
--- NOTE | 2018-01-29 07:41 | General Progress Note ---
Assessment/Plan Problem List: (1) DKA (diabetic ketoacidoses) ICD Codes: E13.10 - Other specified diabetes mellitus with ketoacidosis without coma SNOMED: 00660281, 513109364 (2) Anemia ICD Codes: D64.9 - Anemia, unspecified SNOMED: 259587977 (3) HTN (hypertension) ICD Codes: I10 - Essential (primary) hypertension SNOMED: 44592915 (4) Non compliance with medical treatment ICD Codes: Z91.19 - Patient's noncompliance with other medical treatment and regimen SNOMED: 5493386 (5) Gastroparesis due to DM ICD Codes: E11.43 - Type 2 diabetes mellitus with diabetic autonomic (poly) neuropathy; K31.84 - Gastroparesis SNOMED: 59473541, 982424151 (6) Diabetes ICD Codes: E11.9 - Type 2 diabetes mellitus without complications SNOMED: 72852276 Assessment/Plan continue Levemir 10 units bid continue NISS difficult patient to work with - non compliant and does not want to communicate stable for DC home from diabetes stand point Subjective ROS Limited/Unobtainable: Yes Allergies: Coded Allergies: No Known Allergies (Verified , NONE, 12/12/17) Subjective events noted she does not want to talk Objective Last 24 Hour Vital Signs Date Time Temp Pulse Resp B/P (MAP) Pulse Ox O2 Delivery O2 Flow Rate FiO2 01/29/18 05:40 118/76 01/29/18 04:00 97.9 77 18 118/76 100 97.9 01/29/18 00:00 98.1 80 18 98/62 100 98.1 01/28/18 23:22 98/62 01/28/18 21:32 76 18 Room Air 01/28/18 20:52 76 100/65 01/28/18 20:00 98.1 76 18 100/65 95 98.1 01/28/18 18:00 97/62 01/28/18 16:00 97.9 74 18 97/62 100 97.9 01/28/18 12:36 130/87 01/28/18 12:07 97.7 71 18 130/87 100 Room Air 97.7 01/28/18 09:53 70 130/84 01/28/18 08:39 97.5 70 18 130/84 100 Room Air 97.5 Intake and Output 01/28/18 01/29/18 19:00 07:00 Intake Total 960 ml Balance 960 ml Intake Oral 960 ml # Voids 3 Laboratory Tests 01/28/18 13:40: Glucose Level 263#H Height (Feet): 5 Height (Inches): 3.00 Weight (Pounds): 100 General Appearance: no apparent distress Neck: normal alignment Cardiovascular: normal rate Respiratory/Chest: decreased breath sounds Abdomen: normal bowel sounds Edema: no edema noted Arm (L), no edema noted Arm (R), no edema noted Leg (L), no edema noted Leg (R), no edema noted Pedal (L), no edema noted Pedal (R), no edema noted Generalized Objective Current Medications Medications (Trade) Dose Ordered Sig/Mateo Route PRN Reason Start Time Stop Time Status Last Admin Dose Admin Acetaminophen (Tylenol) 650 mg Q4H PRN ORAL Fever 01/27/18 22:00 02/25/18 21:59 Albuterol/ Ipratropium (Albuterol/ Ipratropium) 3 ml Q4H PRN HHN Shortness of Breath 01/27/18 22:00 02/01/18 21:59 Amlodipine Besylate (Norvasc) 5 mg Q12HR ORAL 01/28/18 09:00 02/26/18 08:59 01/28/18 09:53 Calcium Carbonate (Os-Osvaldo) 1,250 mg DAILY ORAL 01/28/18 09:00 02/26/18 08:59 01/28/18 09:53 Clonidine HCl (Catapres Tab) 0.1 mg EVERY 6 HOURS ORAL 01/28/18 00:00 02/26/18 00:00 01/28/18 12:36 Dextrose (Dextrose 50%) STAT PRN IV Hypoglycemia 01/28/18 07:30 02/27/18 07:29 Divalproex Sodium (Depakote ER) 1,500 mg QHS ORAL 01/28/18 21:00 02/26/18 20:59 01/28/18 20:51 Heparin Sodium (Porcine) (Heparin 5000 units/ml) 5,000 units EVERY 12 HOURS SUBQ 01/28/18 09:00 02/26/18 08:59 01/28/18 20:56 Insulin Aspart (NovoLOG) BEFORE MEALS AND HS SUBQ 01/28/18 06:30 02/26/18 11:29 01/29/18 05:43 Insulin Detemir (Levemir) 10 units Q12HR SUBQ 01/28/18 09:00 02/27/18 08:59 01/28/18 21:02 Lorazepam (Ativan 2mg/ml 1ml) 2 mg Q2H PRN IV agitation 01/27/18 22:00 02/03/18 21:59 Morphine Sulfate (Morphine Sulfate) 4 mg Q4H PRN IVP Severe Pain (Pain Scale 7-10) 01/27/18 22:00 02/03/18 21:59 Nitroglycerin (Ntg) 0.4 mg Q5MIN PRN SL Prn Chest Pain 01/27/18 21:15 02/26/18 21:14 Ondansetron HCl (Zofran) 4 mg Q6H PRN IVP Nausea & Vomiting 01/27/18 22:00 02/25/18 21:59 Polyethylene Glycol (Miralax) 17 gm DAILYPRN PRN ORAL Constipation 01/27/18 22:00 02/25/18 21:59 Temazepam (Restoril) 15 mg HSPRN PRN ORAL Insomnia 01/27/18 22:30 02/03/18 22:29 01/28/18 21:10 Item Value Date Time Bedside Blood Glucose 160 mg/dl H 01/29/18 0543 Bedside Blood Glucose 159 mg/dl H 01/28/18 2103 Bedside Blood Glucose 120 mg/dl 01/28/18 1845 Bedside Blood Glucose 180 mg/dl H 01/28/18 1456 Bedside Blood Glucose 490 mg/dl H 01/28/18 1007 Bedside Blood Glucose 490 mg/dl H 01/28/18 0604 FRANCES BRADLEY 8, 2018 07:41
[2018-01-29] MEDS: Heparin 5000 units/ml inj SUBQ SCH ×2 (08:26→21:45)
[2018-01-29] MEDS: Levemir Flexpen SUBQ SCH ×2 (08:27→21:47)
[2018-01-29 12:00] VITALS: BP 134/79
--- NOTE | 2018-01-29 15:01 | Pulmonology Progress Note ---
Assessment/Plan Problems: (1) DKA (diabetic ketoacidoses) (2) Severe malnutrition (3) Cocaine abuse (4) Psychiatric disorder Assessment/Plan BS improving dc iv fluids advance diet sliding scale check wbc, lower today Subjective ROS Limited/Unobtainable: No Constitutional: Reports: no symptoms HEENT: Repors: no symptoms Respiratory: Reports: no symptoms Allergies: Coded Allergies: No Known Allergies (Verified , NONE, 12/12/17) Objective Last 24 Hour Vital Signs Date Time Temp Pulse Resp B/P (MAP) Pulse Ox O2 Delivery O2 Flow Rate FiO2 01/29/18 13:31 134/79 01/29/18 12:00 97.5 83 18 134/79 97 97.5 01/29/18 08:10 71 18 Room Air 21 01/29/18 05:40 118/76 01/29/18 04:00 97.9 77 18 118/76 100 97.9 01/29/18 00:00 98.1 80 18 98/62 100 98.1 01/28/18 23:22 98/62 01/28/18 21:32 76 18 Room Air 01/28/18 20:52 76 100/65 01/28/18 20:00 98.1 76 18 100/65 95 98.1 01/28/18 18:00 97/62 01/28/18 16:00 97.9 74 18 97/62 100 97.9 Intake and Output 01/28/18 01/29/18 19:00 07:00 Intake Total 960 ml Balance 960 ml Intake Oral 960 ml # Voids 3 Objective General Appearance: WD/WN Lines, tubes and drains: peripheral HEENT: normocephalic, atraumatic Neck: non-tender, normal alignment Respiratory/Chest: chest wall non-tender, lungs clear Cardiovascular/Chest: normal peripheral pulses, normal rate Abdomen: normal bowel sounds, non tender Extremities: normal range of motion, non-tender Skin Exam: normal pigmentation Microbiology Date/Time Source Procedure Growth Status 01/26/18 22:32 Urine,Clean Catch Urine Culture - Preliminary Mixed Gram Positive Organism Resulted 01/27/18 00:31 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 Complete Current Medications Medications (Trade) Dose Ordered Sig/Mateo Route PRN Reason Start Time Stop Time Status Last Admin Dose Admin Acetaminophen (Tylenol) 650 mg Q4H PRN ORAL Fever 01/27/18 22:00 02/25/18 21:59 Albuterol/ Ipratropium (Albuterol/ Ipratropium) 3 ml Q4H PRN HHN Shortness of Breath 01/27/18 22:00 02/01/18 21:59 Amlodipine Besylate (Norvasc) 5 mg Q12HR ORAL 01/28/18 09:00 02/26/18 08:59 01/28/18 09:53 Calcium Carbonate (Os-Osvaldo) 1,250 mg DAILY ORAL 01/28/18 09:00 02/26/18 08:59 01/28/18 09:53 Clonidine HCl (Catapres Tab) 0.1 mg EVERY 6 HOURS ORAL 01/28/18 00:00 02/26/18 00:00 01/29/18 13:31 Dextrose (Dextrose 50%) STAT PRN IV Hypoglycemia 01/28/18 07:30 02/27/18 07:29 Divalproex Sodium (Depakote ER) 1,500 mg QHS ORAL 01/28/18 21:00 02/26/18 20:59 01/28/18 20:51 Heparin Sodium (Porcine) (Heparin 5000 units/ml) 5,000 units EVERY 12 HOURS SUBQ 01/28/18 09:00 02/26/18 08:59 01/28/18 20:56 Insulin Aspart (NovoLOG) BEFORE MEALS AND HS SUBQ 01/28/18 06:30 02/26/18 11:29 01/29/18 11:30 Insulin Detemir (Levemir) 10 units Q12HR SUBQ 01/28/18 09:00 02/27/18 08:59 01/28/18 21:02 Lorazepam (Ativan 2mg/ml 1ml) 2 mg Q2H PRN IV agitation 01/27/18 22:00 02/03/18 21:59 Morphine Sulfate (Morphine Sulfate) 4 mg Q4H PRN IVP Severe Pain (Pain Scale 7-10) 01/27/18 22:00 02/03/18 21:59 Nitroglycerin (Ntg) 0.4 mg Q5MIN PRN SL Prn Chest Pain 01/27/18 21:15 02/26/18 21:14 Ondansetron HCl (Zofran) 4 mg Q6H PRN IVP Nausea & Vomiting 01/27/18 22:00 02/25/18 21:59 Polyethylene Glycol (Miralax) 17 gm DAILYPRN PRN ORAL Constipation 01/27/18 22:00 02/25/18 21:59 Temazepam (Restoril) 15 mg HSPRN PRN ORAL Insomnia 01/27/18 22:30 02/03/18 22:29 01/28/18 21:10 MILA LAINEZ Jan 29, 2018 15:01
[2018-01-29 16:00] VITALS: BP 142/91
[2018-01-29 20:00] VITALS: BP 141/90
--- NOTE | 2018-01-29 20:51 | Consultation ---
Consult Note Consult Note [id number] FERNANDA PIZANO M.D. Jan 29, 2018 20:51
[2018-01-29] MEDS: Depakote ER 500mg tab ORAL SCH (21:42)
[2018-01-30] VITALS: BP 126/84
[2018-01-30 04:00] VITALS: BP 121/76
--- NOTE | 2018-01-30 06:30 | Consultation ---
DATE OF CONSULTATION: 01/30/2018 INFECTIOUS DISEASES CONSULTATION REQUESTING PHYSICIAN: Fred Paz M.D. REASON FOR CONSULTATION: Evaluation of the patient for UTI and antibiotic management. HISTORY OF PRESENT ILLNESS: The patient is a 42-year-old poor historian, uncooperative female, who was admitted to this medical center due to altered level of consciousness. The patient was found to have elevated glucose and urinary tract infection. The patient mentioned having some dysuria. Infectious Diseases consultation has been requested for further evaluation of the patient and antibiotic management. PAST MEDICAL HISTORY: 1. Diabetes. 2. Seizure. 3. CHF. 4. Hypertension. 5. History of pancreatitis. 6. History of renal insufficiency. 7. Depression and anxiety. ALLERGIES: No known drug allergies. SOCIAL HISTORY: Unremarkable. FAMILY HISTORY: Noncontributory. REVIEW OF SYSTEMS: The patient is not cooperative. PHYSICAL EXAMINATION: VITAL SIGNS: Temperature 98 degrees and blood pressure 151/98. HEENT: No pale conjunctivae. No icterus. NECK: No lymphadenopathy. CHEST: Clear. ABDOMEN: The patient was not cooperative with the exam. LABORATORY AND DIAGNOSTIC DATA: White blood cells 11, hemoglobin 8, and platelets 254,000. UA 2-4 white blood cells, BUN 13, and creatinine 2.3. Urine culture is growing mixed organisms. ASSESSMENT: The patient is a 42-year-old female, who was admitted with elevated glucose, uncontrolled diabetes. The patient is afebrile. White blood cells overall have been unremarkable. UA shows mixed growth of the urine and low count. The patient is not a good source of history. At this time, we recommend to monitor the patient off of antibiotics. If the patient develops symptoms of fever or leukocytosis, we will start the patient on IV antibiotic treatment. Thank you, Dr. Paz, for allowing me to participate in the care of this patient. I will follow the patient with you during this hospitalization. Jon Upton M.D. DR: Tyler JOB#: [id number] CC:
[2018-01-30] MEDS: NovoLOG Insulin Flexpen SUBQ SCH ×3 (06:59→17:14)
[2018-01-30 07:19] LABS: HEMATOCRIT 20.9 % (37.0-47.0); MEAN CORPUSCULAR VOLUME 96 FL (80-99); PLATELET COUNT 207 K/UL (150-450); RED BLOOD COUNT 2.19 M/UL (4.20-5.40); WHITE BLOOD COUNT 7.9 K/UL (4.8-10.8)
[2018-01-30 07:29] LABS: HEMOGLOBIN 6.9 G/DL (12.0-16.0)
[2018-01-30 07:32] LABS: ALANINE AMINOTRANSFERASE 12 U/L (12-78); ALBUMIN/GLOBULIN RATIO 0.5 (1.0-2.7); ALKALINE PHOSPHATASE 133 U/L (46-116); ANION GAP 4 mmol/L (5-15); ASPARTATE AMINO TRANSFERASE 22 U/L (15-37); BILIRUBIN,TOTAL 0.2 MG/DL (0.2-1.0); BLOOD UREA NITROGEN 12 mg/dL (7-18); CARBON DIOXIDE 34 MMOL/L (21-32); CHLORIDE 102 MMOL/L (98-107); CREATININE 1.8 MG/DL (0.55-1.30); PHOSPHORUS 3.9 MG/DL (2.5-4.9); POTASSIUM 3.4 MMOL/L (3.5-5.1); SODIUM 140 MMOL/L (136-145)
[2018-01-30 08:25] VITALS: BP 96/68
--- NOTE | 2018-01-30 08:43 | General Progress Note ---
Assessment/Plan Problem List: (1) DKA (diabetic ketoacidoses) ICD Codes: E13.10 - Other specified diabetes mellitus with ketoacidosis without coma SNOMED: 97190136, 409948673 (2) Anemia ICD Codes: D64.9 - Anemia, unspecified SNOMED: 462398004 (3) HTN (hypertension) ICD Codes: I10 - Essential (primary) hypertension SNOMED: 22427460 (4) Non compliance with medical treatment ICD Codes: Z91.19 - Patient's noncompliance with other medical treatment and regimen SNOMED: 6638206 (5) Gastroparesis due to DM ICD Codes: E11.43 - Type 2 diabetes mellitus with diabetic autonomic (poly) neuropathy; K31.84 - Gastroparesis SNOMED: 06534746, 903608030 (6) Diabetes ICD Codes: E11.9 - Type 2 diabetes mellitus without complications SNOMED: 70130503 Assessment/Plan continue Levemir 10 units bid continue NISS difficult patient to work with - non compliant and does not want to communicate stable for DC home from diabetes stand point Subjective Allergies: Coded Allergies: No Known Allergies (Verified , NONE, 12/12/17) Subjective events noted Objective Last 24 Hour Vital Signs Date Time Temp Pulse Resp B/P (MAP) Pulse Ox O2 Delivery O2 Flow Rate FiO2 01/30/18 08:25 97.8 64 19 96/68 100 Room Air 97.8 01/30/18 05:32 121/76 01/30/18 04:00 97.8 71 18 121/76 98 Room Air 97.8 01/30/18 00:42 126/84 01/30/18 00:00 98.2 92 18 126/84 100 Room Air 98.2 01/29/18 21:49 94 151/98 01/29/18 20:00 98.1 94 18 141/90 100 Room Air 98.1 01/29/18 19:44 91 18 Room Air 21 01/29/18 17:21 142/91 01/29/18 16:00 98.4 91 18 142/91 100 98.4 01/29/18 13:31 134/79 01/29/18 12:00 97.5 83 18 134/79 97 97.5 Intake and Output 01/29/18 01/30/18 19:00 07:00 Intake Total 720 ml Balance 720 ml Intake Oral 720 ml # Voids 4 Laboratory Tests 01/30/18 06:39: White Blood Count 7.9, Red Blood Count 2.19L, Hemoglobin 6.9*L, Hematocrit 20.9L , Mean Corpuscular Volume 96, Mean Corpuscular Hemoglobin 31.7H, Mean Corpuscular Hemoglobin Concent 33.1, Red Cell Distribution Width 13.0, Platelet Count 207, Mean Platelet Volume 8.0, Neutrophils (%) (Auto) , Lymphocytes (%) ( Auto) , Monocytes (%) (Auto) , Eosinophils (%) (Auto) , Basophils (%) (Auto) , Neutrophils % (Manual) [Pending], Lymphocytes % (Manual) [Pending], Platelet Estimate [Pending], Platelet Morphology [Pending], Sodium Level 140, Potassium Level 3.4L, Chloride Level 102, Carbon Dioxide Level 34H, Anion Gap 4L, Blood Urea Nitrogen 12, Creatinine 1.8H, Estimat Glomerular Filtration Rate 37.8, Glucose Level 53L, Calcium Level 8.0L, Phosphorus Level 3.9, Magnesium Level 1.2L, Total Bilirubin 0.2, Aspartate Amino Transf (AST/SGOT) 22, Alanine Aminotransferase (ALT/SGPT) 12, Alkaline Phosphatase 133H, Total Protein 5.7L, Albumin 2.0L, Globulin 3.7, Albumin/Globulin Ratio 0.5L Height (Feet): 5 Height (Inches): 3.00 Weight (Pounds): 100 General Appearance: no apparent distress Neck: normal alignment Cardiovascular: normal rate Respiratory/Chest: lungs clear Abdomen: normal bowel sounds Pelvis: normal external exam Edema: no edema noted Arm (L), no edema noted Arm (R), no edema noted Leg (L), no edema noted Leg (R), no edema noted Pedal (L), no edema noted Pedal (R), no edema noted Generalized Objective Current Medications Medications (Trade) Dose Ordered Sig/Mateo Route PRN Reason Start Time Stop Time Status Last Admin Dose Admin Acetaminophen (Tylenol) 650 mg Q4H PRN ORAL Fever 01/27/18 22:00 02/25/18 21:59 Albuterol/ Ipratropium (Albuterol/ Ipratropium) 3 ml Q4H PRN HHN Shortness of Breath 01/27/18 22:00 02/01/18 21:59 Amlodipine Besylate (Norvasc) 5 mg Q12HR ORAL 01/28/18 09:00 02/26/18 08:59 01/29/18 21:49 Calcium Carbonate (Os-Osvaldo) 1,250 mg DAILY ORAL 01/28/18 09:00 02/26/18 08:59 01/28/18 09:53 Clonidine HCl (Catapres Tab) 0.1 mg EVERY 6 HOURS ORAL 01/28/18 00:00 02/26/18 00:00 01/30/18 05:32 Dextrose (Dextrose 50%) STAT PRN IV Hypoglycemia 01/28/18 07:30 02/27/18 07:29 Divalproex Sodium (Depakote ER) 1,500 mg QHS ORAL 01/28/18 21:00 02/26/18 20:59 01/29/18 21:42 Heparin Sodium (Porcine) (Heparin 5000 units/ml) 5,000 units EVERY 12 HOURS SUBQ 01/28/18 09:00 02/26/18 08:59 01/29/18 21:45 Insulin Aspart (NovoLOG) BEFORE MEALS AND HS SUBQ 01/28/18 06:30 02/26/18 11:29 01/30/18 06:59 Insulin Detemir (Levemir) 10 units Q12HR SUBQ 01/28/18 09:00 02/27/18 08:59 01/29/18 21:47 Lorazepam (Ativan 2mg/ml 1ml) 2 mg Q2H PRN IV agitation 01/27/18 22:00 02/03/18 21:59 Morphine Sulfate (Morphine Sulfate) 4 mg Q4H PRN IVP Severe Pain (Pain Scale 7-10) 01/27/18 22:00 02/03/18 21:59 Nitroglycerin (Ntg) 0.4 mg Q5MIN PRN SL Prn Chest Pain 01/27/18 21:15 02/26/18 21:14 Ondansetron HCl (Zofran) 4 mg Q6H PRN IVP Nausea & Vomiting 01/27/18 22:00 02/25/18 21:59 01/30/18 00:42 Polyethylene Glycol (Miralax) 17 gm DAILYPRN PRN ORAL Constipation 01/27/18 22:00 02/25/18 21:59 Temazepam (Restoril) 15 mg HSPRN PRN ORAL Insomnia 01/27/18 22:30 02/03/18 22:29 01/30/18 00:42 Item Value Date Time Bedside Blood Glucose 102 mg/dl 01/30/18 0659 Bedside Blood Glucose 102 mg/dl 01/30/18 0630 Bedside Blood Glucose 273 mg/dl H 01/29/18 2147 Bedside Blood Glucose 120 mg/dl 01/29/18 1630 Bedside Blood Glucose 359 mg/dl H 01/29/18 1130 Bedside Blood Glucose 160 mg/dl H 01/29/18 0543 FRANCES BRADLEY Jan 30, 2018 08:42
[2018-01-30] MEDS: Levemir Flexpen SUBQ SCH (09:00)
[2018-01-30] MEDS: Heparin 5000 units/ml inj SUBQ SCH (09:01)
--- NOTE | 2018-01-30 11:04 | Infectious Diseases Prog Note ---
Assessment/Plan Assessment/Plan ASSESSMENT: The patient is a 42-year-old female, w afebrile nl WBC no evid of UTI UCx Melany and low count. ( colonizer ) CRP 3.7 Gastroparesis due to DM CIERA improving SP uncontrolled diabetes. Diabetes. Seizure. CHF. Hypertension. History of pancreatitis. History of renal insufficiency. Depression and anxiety. P: will monitor the patient off of antibiotics. If the patient develops symptoms of fever or leukocytosis, we will start the patient on IV antibiotic treatment. monitor CBC Subjective Constitutional: Denies: no symptoms, fever, chills, fatigue, anorexia, drenching sweats, other Allergies: Coded Allergies: No Known Allergies (Verified , NONE, 12/12/17) Objective Vital Signs Last 24 Hour Vital Signs Date Time Temp Pulse Resp B/P (MAP) Pulse Ox O2 Delivery O2 Flow Rate FiO2 01/30/18 08:49 64 96/68 01/30/18 08:25 97.8 64 19 96/68 100 Room Air 97.8 01/30/18 05:32 121/76 01/30/18 04:00 97.8 71 18 121/76 98 Room Air 97.8 01/30/18 00:42 126/84 01/30/18 00:00 98.2 92 18 126/84 100 Room Air 98.2 01/29/18 21:49 94 151/98 01/29/18 20:00 98.1 94 18 141/90 100 Room Air 98.1 01/29/18 19:44 91 18 Room Air 21 01/29/18 17:21 142/91 01/29/18 16:00 98.4 91 18 142/91 100 98.4 01/29/18 13:31 134/79 01/29/18 12:00 97.5 83 18 134/79 97 97.5 Height (Feet): 5 Height (Inches): 3.00 Weight (Pounds): 100 HEENT: anicteric Respiratory/Chest: no respiratory distress Cardiovascular: regular rhythm Abdomen: no organomegaly Laboratory Tests Test 01/30/18 06:39 White Blood Count 7.9 K/UL (4.8-10.8) Red Blood Count 2.19 M/UL (4.20-5.40) L Hemoglobin 6.9 G/DL (12.0-16.0) *L Hematocrit 20.9 % (37.0-47.0) L Mean Corpuscular Volume 96 FL (80-99) Mean Corpuscular Hemoglobin 31.7 PG (27.0-31.0) H Mean Corpuscular Hemoglobin Concent 33.1 G/DL (32.0-36.0) Red Cell Distribution Width 13.0 % (11.6-14.8) Platelet Count 207 K/UL (150-450) Mean Platelet Volume 8.0 FL (6.5-10.1) Neutrophils (%) (Auto) % (45.0-75.0) Lymphocytes (%) (Auto) % (20.0-45.0) Monocytes (%) (Auto) % (1.0-10.0) Eosinophils (%) (Auto) % (0.0-3.0) Basophils (%) (Auto) % (0.0-2.0) Differential Total Cells Counted 100 Neutrophils % (Manual) 53 % (45-75) Lymphocytes % (Manual) 42 % (20-45) Monocytes % (Manual) 5 % (1-10) Eosinophils % (Manual) 0 % (0-3) Basophils % (Manual) 0 % (0-2) Band Neutrophils 0 % (0-8) Platelet Estimate Adequate Platelet Morphology Normal Hypochromasia 1+ Sodium Level 140 MMOL/L (136-145) Potassium Level 3.4 MMOL/L (3.5-5.1) L Chloride Level 102 MMOL/L (98-107) Carbon Dioxide Level 34 MMOL/L (21-32) H Anion Gap 4 mmol/L (5-15) L Blood Urea Nitrogen 12 mg/dL (7-18) Creatinine 1.8 MG/DL (0.55-1.30) H Estimat Glomerular Filtration Rate 37.8 mL/min (>60) Glucose Level 53 MG/DL (74-106) L Calcium Level 8.0 MG/DL (8.5-10.1) L Phosphorus Level 3.9 MG/DL (2.5-4.9) Magnesium Level 1.2 MG/DL (1.8-2.4) L Total Bilirubin 0.2 MG/DL (0.2-1.0) Aspartate Amino Transf (AST/SGOT) 22 U/L (15-37) Alanine Aminotransferase (ALT/SGPT) 12 U/L (12-78) Alkaline Phosphatase 133 U/L (46-116) H Total Protein 5.7 G/DL (6.4-8.2) L Albumin 2.0 G/DL (3.4-5.0) L Globulin 3.7 g/dL Albumin/Globulin Ratio 0.5 (1.0-2.7) L Current Medications Medications (Trade) Dose Ordered Sig/Mateo Route PRN Reason Start Time Stop Time Status Last Admin Dose Admin Acetaminophen (Tylenol) 650 mg Q4H PRN ORAL Fever 01/27/18 22:00 02/25/18 21:59 Albuterol/ Ipratropium (Albuterol/ Ipratropium) 3 ml Q4H PRN HHN Shortness of Breath 01/27/18 22:00 02/01/18 21:59 Amlodipine Besylate (Norvasc) 5 mg Q12HR ORAL 01/28/18 09:00 02/26/18 08:59 01/30/18 08:49 Calcium Carbonate (Os-Osvaldo) 1,250 mg DAILY ORAL 01/28/18 09:00 02/26/18 08:59 01/30/18 08:49 Clonidine HCl (Catapres Tab) 0.1 mg EVERY 6 HOURS ORAL 01/28/18 00:00 02/26/18 00:00 01/30/18 05:32 Dextrose (Dextrose 50%) STAT PRN IV Hypoglycemia 01/28/18 07:30 02/27/18 07:29 01/30/18 08:49 Divalproex Sodium (Depakote ER) 1,500 mg QHS ORAL 01/28/18 21:00 02/26/18 20:59 01/29/18 21:42 Heparin Sodium (Porcine) (Heparin 5000 units/ml) 5,000 units EVERY 12 HOURS SUBQ 01/28/18 09:00 02/26/18 08:59 01/30/18 09:01 Insulin Aspart (NovoLOG) BEFORE MEALS AND HS SUBQ 01/28/18 06:30 02/26/18 11:29 01/30/18 06:59 Insulin Detemir (Levemir) 10 units Q12HR SUBQ 01/28/18 09:00 02/27/18 08:59 3/8/18 21:47 Lorazepam (Ativan 2mg/ml 1ml) 2 mg Q2H PRN IV agitation 01/27/18 22:00 02/03/18 21:59 Morphine Sulfate (Morphine Sulfate) 4 mg Q4H PRN IVP Severe Pain (Pain Scale 7-10) 01/27/18 22:00 02/03/18 21:59 Nitroglycerin (Ntg) 0.4 mg Q5MIN PRN SL Prn Chest Pain 01/27/18 21:15 02/26/18 21:14 Ondansetron HCl (Zofran) 4 mg Q6H PRN IVP Nausea & Vomiting 01/27/18 22:00 02/25/18 21:59 01/30/18 00:42 Polyethylene Glycol (Miralax) 17 gm DAILYPRN PRN ORAL Constipation 01/27/18 22:00 02/25/18 21:59 Temazepam (Restoril) 15 mg HSPRN PRN ORAL Insomnia 01/27/18 22:30 02/03/18 22:29 01/30/18 00:42 FERNANDA PIZANO M.D. Jan 30, 2018 11:04
[2018-01-30 11:54] VITALS: BP 97/64
--- NOTE | 2018-01-30 14:47 | Pulmonology Progress Note ---
Assessment/Plan Problems: (1) DKA (diabetic ketoacidoses) (2) Severe malnutrition (3) Cocaine abuse (4) Psychiatric disorder Assessment/Plan BS improving dc iv fluids advance diet sliding scale check wbc, lower today dc home today Subjective ROS Limited/Unobtainable: No Constitutional: Reports: no symptoms HEENT: Repors: no symptoms Respiratory: Reports: no symptoms Allergies: Coded Allergies: No Known Allergies (Verified , NONE, 12/12/17) Objective Last 24 Hour Vital Signs Date Time Temp Pulse Resp B/P (MAP) Pulse Ox O2 Delivery O2 Flow Rate FiO2 01/30/18 12:00 97/64 01/30/18 11:54 97.6 64 20 97/64 99 97.6 01/30/18 08:49 64 96/68 01/30/18 08:25 97.8 64 19 96/68 100 Room Air 97.8 01/30/18 06:50 88 18 Room Air 21 01/30/18 05:32 121/76 01/30/18 04:00 97.8 71 18 121/76 98 Room Air 97.8 01/30/18 00:42 126/84 01/30/18 00:00 98.2 92 18 126/84 100 Room Air 98.2 01/29/18 21:49 94 151/98 01/29/18 20:00 98.1 94 18 141/90 100 Room Air 98.1 01/29/18 19:44 91 18 Room Air 21 01/29/18 17:21 142/91 01/29/18 16:00 98.4 91 18 142/91 100 98.4 Intake and Output 01/29/18 01/30/18 19:00 07:00 Intake Total 720 ml Balance 720 ml Intake Oral 720 ml # Voids 4 Objective General Appearance: WD/WN Lines, tubes and drains: peripheral HEENT: normocephalic, atraumatic Neck: non-tender, normal alignment Respiratory/Chest: chest wall non-tender, lungs clear Cardiovascular/Chest: normal peripheral pulses, normal rate Abdomen: normal bowel sounds, non tender Extremities: normal range of motion, non-tender Skin Exam: normal pigmentation Laboratory Tests 01/30/18 06:39: White Blood Count 7.9, Red Blood Count 2.19L, Hemoglobin 6.9*L, Hematocrit 20.9L , Mean Corpuscular Volume 96, Mean Corpuscular Hemoglobin 31.7H, Mean Corpuscular Hemoglobin Concent 33.1, Red Cell Distribution Width 13.0, Platelet Count 207, Mean Platelet Volume 8.0, Neutrophils (%) (Auto) , Lymphocytes (%) ( Auto) , Monocytes (%) (Auto) , Eosinophils (%) (Auto) , Basophils (%) (Auto) , Differential Total Cells Counted 100, Neutrophils % (Manual) 53, Lymphocytes % ( Manual) 42, Monocytes % (Manual) 5, Eosinophils % (Manual) 0, Basophils % ( Manual) 0, Band Neutrophils 0, Platelet Estimate Adequate, Platelet Morphology Normal, Hypochromasia 1+, Sodium Level 140, Potassium Level 3.4L, Chloride Level 102, Carbon Dioxide Level 34H, Anion Gap 4L, Blood Urea Nitrogen 12, Creatinine 1.8H, Estimat Glomerular Filtration Rate 37.8, Glucose Level 53L, Calcium Level 8.0L, Phosphorus Level 3.9, Magnesium Level 1.2L, Total Bilirubin 0.2, Aspartate Amino Transf (AST/SGOT) 22, Alanine Aminotransferase (ALT/SGPT) 12, Alkaline Phosphatase 133H, Total Protein 5.7L, Albumin 2.0L, Globulin 3.7, Albumin/Globulin Ratio 0.5L Current Medications Medications (Trade) Dose Ordered Sig/Mateo Route PRN Reason Start Time Stop Time Status Last Admin Dose Admin Acetaminophen (Tylenol) 650 mg Q4H PRN ORAL Fever 01/27/18 22:00 02/25/18 21:59 Albuterol/ Ipratropium (Albuterol/ Ipratropium) 3 ml Q4H PRN HHN Shortness of Breath 01/27/18 22:00 02/01/18 21:59 Amlodipine Besylate (Norvasc) 5 mg Q12HR ORAL 01/28/18 09:00 02/26/18 08:59 01/30/18 08:49 Calcium Carbonate (Os-Osvaldo) 1,250 mg DAILY ORAL 01/28/18 09:00 02/26/18 08:59 01/30/18 08:49 Clonidine HCl (Catapres Tab) 0.1 mg EVERY 6 HOURS ORAL 01/28/18 00:00 02/26/18 00:00 01/30/18 05:32 Dextrose (Dextrose 50%) STAT PRN IV Hypoglycemia 01/28/18 07:30 02/27/18 07:29 01/30/18 08:49 Divalproex Sodium (Depakote ER) 1,500 mg QHS ORAL 01/28/18 21:00 02/26/18 20:59 01/29/18 21:42 Heparin Sodium (Porcine) (Heparin 5000 units/ml) 5,000 units EVERY 12 HOURS SUBQ 01/28/18 09:00 02/26/18 08:59 01/30/18 09:01 Insulin Aspart (NovoLOG) BEFORE MEALS AND HS SUBQ 01/28/18 06:30 02/26/18 11:29 01/30/18 06:59 Insulin Detemir (Levemir) 10 units Q12HR SUBQ 01/28/18 09:00 02/27/18 08:59 01/29/18 21:47 Lorazepam (Ativan 2mg/ml 1ml) 2 mg Q2H PRN IV agitation 01/27/18 22:00 02/03/18 21:59 Morphine Sulfate (Morphine Sulfate) 4 mg Q4H PRN IVP Severe Pain (Pain Scale 7-10) 01/27/18 22:00 02/03/18 21:59 Nitroglycerin (Ntg) 0.4 mg Q5MIN PRN SL Prn Chest Pain 01/27/18 21:15 02/26/18 21:14 Ondansetron HCl (Zofran) 4 mg Q6H PRN IVP Nausea & Vomiting 01/27/18 22:00 02/25/18 21:59 01/30/18 00:42 Polyethylene Glycol (Miralax) 17 gm DAILYPRN PRN ORAL Constipation 01/27/18 22:00 02/25/18 21:59 Temazepam (Restoril) 15 mg HSPRN PRN ORAL Insomnia 01/27/18 22:30 02/03/18 22:29 01/30/18 00:42 MILA LAINEZ Jan 30, 2018 14:47
[2018-01-30 16:45] VITALS: BP 121/78
[2018-01-30 17:01] VITALS: BP 121/78
--- NOTE | 2018-02-02 10:05 | Discharge Summary ---
Discharge Summary Hospital Course Date of Admission Jan 26, 2018 at 23:43 Date of Discharge Jan 30, 2018 at 20:15 Admitting Diagnosis Diabetic ketoacidosis HPI Amaya Wallis is a 42 year old female who was admitted on Jan 26, 2018 at 23:43 for Diabetic Ketoacidosis Hospital Course dc summary [id number] Discharge Medications Continued Medications: Amlodipine Besylate (Norvasc) 5 Mg Tablet 5 MG ORAL Q12HR, TAB Aspirin* (Aspirin*) 81 Mg Tab.chew 81 MG ORAL DAILY, #30 TAB Clonidine Hcl* (Catapres*) 0.1 Mg Tablet 0.1 MG ORAL EVERY 6 HOURS, TAB Divalproex Sodium (Divalproex Sodium Er) 500 Mg Tab.er.24h 1500 MG ORAL QHS, #30 TAB Fluconazole (Fluconazole) 100 Mg Tablet 200 MG ORAL DAILY, #3 TAB 0 Refills Insulin Detemir (Levemir Flexpen) 100 Unit/1 Ml Insuln.pen 10 UNITS SUBQ Q12HR, #1 SYR Ondansetron* (Zofran*) 4 Mg Tablet 4 MG ORAL Q6H PRN, #20 TAB Discharge Condition Upon Discharge: stable Discharge Disposition Patient was discharged to Home (01) Discharge Diagnoses: Discharge Instructions Discharge Instructions Special Instructions I have been assigned to complete a D/C Summary on this account. I was not involved in the patient management Cailin Carpenter NP (Vanchtein) Feb 02, 2018 10:05
--- NOTE | 2018-02-03 00:30 | Discharge Summary 2 SIG ---
DATE OF ADMISSION: 01/26/2018 DATE OF DISCHARGE: 01/30/2018 REASON FOR ADMISSION: 42-year-old female with a history of hypertension, poorly controlled diabetes secondary to noncompliance, history of drug abuse, presented to emergency department for evaluation. The patient presented with altered mental status, initially nonresponsive, later became more awake. Laboratory workup revealed glucose -1298 , anion gap-18, sodium -120 potassium-6.1, BUN- 21, creatinine -3.3. WBC -11.6. Urinalysis with +1 leukocyte esterase, only few bacteria. The patient admitted with diagnoses of diabetic ketoacidosis, cocaine abuse, psychiatric disorder, severe malnutrition. HOSPITAL COURSE: The patient admitted initially to ICU for insulin drip per protocol. Electrolytes and renal parameters were closely monitored along with glucose. Endocrinology and ID consults were requested. The patient was on generous IV hydration. Mental status was closely monitored. When anion gap closed, insulin drip was discontinued, and the patient was subsequently transitioned to long-acting insulin, short-acting premeal insulin, and sliding scale of insulin as needed. Per Endocrinology, the patient was noncompliant with medical treatment and difficult to communicate. Parking Lot Manager closely followed. DVT and GI prophylaxis provided. Home medication for blood pressure control and psychiatric medication were resumed. When blood sugar normalized, electrolytes stabilized as well. Sodium up to 140. Potassium -4.2. The patient noted to have anemia on the last day. Hemoglobin -6.9, hematocrit- 20.9. The patient undergone transfusion of one unit packed red blood cells prior to discharge. Blood pressure was managed with calcium-channel penelope and clonidine and remained stable. ID closely followed the patient. Per ID, urinalysis was not indicative of urinary tract infection. He recommended to hold off antibiotics for now and closely monitor the patient. Mild leukocytosis resolved. No fever. Urine culture showed Melany and diphtheroids likely contaminant. Renal parameters were closely monitored. Prior to discharge, BUN down to 12 from 21 and creatinine down to 1.8 from 3.3. The patient likely had chronic renal insufficiency secondary to longstanding and poorly controlled diabetes, likely diabetic nephropathy. The patient also had gastroparesis secondary to diabetes. Antiemetic provided as needed. Diet was slowly reintroduced when diabetic ketoacidosis resolved. Nutritional consult was requested. Per solar energy systems designer, the patient has high nutritional risk. Recommended protein shakes between meals. Dietary recommendations were implemented. The patient was stable for discharge. Strongly reinforced and recommended compliance with medication regimen. FINAL DIAGNOSES: 1. Diabetic ketoacidosis. 2. Severe malnutrition. 3. Cocaine abuse. 4. Psychiatric disorder. 5. Anemia, status post blood transfusion. 6. Noncompliance with medical treatment. 7. Gastroparesis secondary to diabetes mellitus. DISCHARGE MEDICATIONS: See medication reconciliation list. DISCHARGE INSTRUCTIONS: The patient discharged home. Followup with the primary care provider. Followup with the washtub worker next week. Fred Paz M.D. I have been assigned to dictate discharge summary on this account and I was not involved in the patient's management. Cailin UribeSt. Francis Hospital & Heart CenterJulian N.PHafsa DR: Randy JOB#: [id number] CC: ALICIA
[2018-02-06] MEDS ORDERED: NORVASC5 MG ORAL (07:36)
[2018-02-06] MEDS ORDERED: CATAPRES0.1 MG ORAL (07:37)
[2018-02-06] MEDS ORDERED: NOVOLOG100 UNIT/3 SUBQ (07:37)
[2018-02-06] MEDS ORDERED: LEVEMIR FL100 UNIT/1 SUBQ (07:38)
== END 2018-01-30 20:15 | disposition home or self-care (01) | DRG 420 ==
LOC: EDBD 22:09 → EMR 23:12 → EDBEDREQSVC 23:34 → EDBEDREQ 23:34 → EDBEDREQTM 23:34 → EDBEDREQ 23:35 → ICU 23:43 → EDBEDREQ 23:57 → 4W 01-27 21:54 → 4E 01-29 09:47
PROC: 06HM33Z Insertion of Infusion Device into Right Femoral Vein, Percutaneous Approach (ICD-10-PCS; principal; 2018-01-26)
PROC: 30233N1 Transfusion of Nonautologous Red Blood Cells into Peripheral Vein, Percutaneous Approach (ICD-10-PCS; 2018-01-30)
DX: E11.10 Type 2 diabetes mellitus with ketoacidosis without coma (principal); E43 Unspecified severe protein-calorie malnutrition; R56.9 Unspecified convulsions; E11.21 Type 2 diabetes mellitus with diabetic nephropathy; K31.84 Gastroparesis; Z79.4 Long term (current) use of insulin; D64.9 Anemia, unspecified; Z91.19 Patient's noncompliance with other medical treatment and regimen; Z68.1 Body mass index [BMI] 19.9 or less, adult; F14.10 Cocaine abuse, uncomplicated; F99 Mental disorder, not otherwise specified; E11.43 Type 2 diabetes mellitus with diabetic autonomic (poly)neuropathy; I12.9 Hypertensive chronic kidney disease with stage 1 through stage 4 chronic kidney disease, or unspecified chronic kidney disease; N18.9 Chronic kidney disease, unspecified; F41.8 Other specified anxiety disorders
CPT/HCPCS: 36415; 80048; 80053; 80076; 80307; 80329; 81003; 82150; 82947; 82962; 83690; 83735; 84100; 85007; 85025; 85610; 85651; 85730; 86140; 86850; 86900; 86901; 86920; 87081; 87086; 93005; 94664; 99291; J1815; J2405; S5561

== ENCOUNTER 2018-02-01 04:27 | Inpatient (IN) | payer OTHER ==
[~2018-02-01] VITALS: Ht 167.6 cm; Wt 56.3 kg
[2018-02-01] VITALS (12 sets, daily range): BP systolic 94–169; BP diastolic 43–110
[~2018-02-01 04:27] MED LIST changes: +CATAPRES0.1 MG ORAL; +HYDROXYZINE PAM25 MG PO
[2018-02-01] MEDS ORDERED: Morphine Sulfate 4mg/ml Inj IM ONE (05:00)
[2018-02-01 06:06] LABS: ANION GAP 17 mmol/L (5-15); BLOOD UREA NITROGEN 26 mg/dL (7-18); CALCIUM 8.7 MG/DL (8.5-10.1); CARBON DIOXIDE 28 MMOL/L (21-32); CHLORIDE 83 MMOL/L (98-107); CREATININE 2.3 MG/DL (0.55-1.30); POTASSIUM 4.2 MMOL/L (3.5-5.1); SODIUM 128 MMOL/L (136-145)
[2018-02-01 06:08] LABS: ALANINE AMINOTRANSFERASE 13 U/L (12-78); ALBUMIN 2.7 G/DL (3.4-5.0); ALBUMIN/GLOBULIN RATIO 0.6 (1.0-2.7); ALKALINE PHOSPHATASE 197 U/L (46-116); ASPARTATE AMINO TRANSFERASE 15 U/L (15-37); BILIRUBIN,TOTAL 0.6 MG/DL (0.2-1.0)
[2018-02-01 06:09] LABS: APPEARANCE,URINE CLEAR; BILIRUBIN, URINE NEGATIVE (NEGATIVE); COLOR,URINE PALE YELLOW; GLUCOSE, URINE (UA) 4+ (NEGATIVE); KETONES,URINE 3+ (NEGATIVE); LEUKOCYTE ESTERASE ,URINE NEGATIVE (NEGATIVE); NITRITE,URINE NEGATIVE (NEGATIVE); PH,URINE 7 (4.5-8.0); PROTEIN,URINE NEGATIVE (NEGATIVE); UROBILINOGEN,URINE NORMAL MG/DL (0.0-1.0)
--- NOTE | 2018-02-01 06:10 | Emergency Room Report ---
History of Present Illness General Chief Complaint: Nausea Source: Patient, EMS (NAHOMI JOSÉ M.D.) Present Illness HPI 42-year-old female presents ED for evaluation. Patient brought in by EMS. Mother call 911. Patient complaining of abdominal pain with nausea and vomiting. Started tonight. Patient is well-known to [facility]. History of diabetes. Accu-Chek critically high. Pain is sharp, 7 out of 10, nonradiating. Denies fevers or chills. Denies chest pain or shortness of breath. Patient discharged recently from [facility] for treatment of DKA. No other aggravating or relieving factors. Denies any other associated symptoms (NAHOMI JOSÉ M.D.) Allergies: Coded Allergies: No Known Allergies (Verified , NONE, 12/12/17) Patient History Past Medical History: DM, HTN Past Surgical History: none Pertinent Family History: none Social History: Denies: smoking, alcohol use, drug use Now: No Immunizations: UTD Reviewed Nursing Documentation: PMH: Agreed, PSxH: Agreed (NAHOMI JOSÉ M.D.) Nursing Documentation-PMH Past Medical History: No History, Except For Hx Cardiac Problems: Yes Hx Hypertension: Yes Hx Pacemaker: No Hx Asthma: No Hx COPD: No Hx Diabetes: Yes Hx Cancer: No Hx Gastrointestinal Problems: Yes Hx Neurological Problems: Yes Hx Cerebrovascular Accident: No Hx Seizures: Yes Hx Vertigo: Yes Hx Dizziness: Yes Hx Headaches: Yes Hx Weakness: Yes Hx Fatigue: Yes Hx Neurologic Surgery: No (NAHOMI JOSÉ M.D.) Review of Systems All Other Systems: negative except mentioned in HPI (NAHOMI JOSÉ M.D.) Physical Exam Vital Signs Date Time Temp Pulse Resp B/P (MAP) Pulse Ox O2 Delivery O2 Flow Rate FiO2 02/01/18 04:23 88 18 167/102 98 Room Air Sp02 EP Interpretation: reviewed, normal General Appearance: alert, GCS 15, non-toxic, mild distress Head: normocephalic, atraumatic Eyes: bilateral eye normal inspection, bilateral eye PERRL ENT: hearing grossly normal, normal pharynx, no angioedema, normal voice Neck: full range of motion, supple/symm/no masses Respiratory: chest non-tender, lungs clear, normal breath sounds, speaking full sentences Cardiovascular #1: regular rate, rhythm, no edema Cardiovascular #2: 2+ carotid (R), 2+ carotid (L), 2+ radial (R), 2+ radial (L) , 2+ dorsalis pedis (R), 2+ dorsalis pedis (L) Gastrointestinal: normal bowel sounds, non tender, soft, non-distended, no guarding, no rebound Rectal: deferred Genitourinary: normal inspection, no CVA tenderness Musculoskeletal: back normal, gait/station normal, normal range of motion, non- tender Neurologic: alert, oriented x3, responsive, motor strength/tone normal, sensory intact, speech normal Psychiatric: judgement/insight normal, memory normal, mood/affect normal, no suicidal/homicidal ideation Reflexes: 3+ bicep (R), 3+ bicep (L), 3+ tricep (R), 3+ tricep (L), 3+ knee (R) , 3+ knee (L) Skin: normal color, no rash, warm/dry, well hydrated Lymphatic: no adenopathy (NAHOMI JOSÉ M.D.) Procedures Critical Care Time Critical Care Time i. I feel this is a highly complex case requiring extensive working including EKG/Rhythm strip, Xray/CT/US, Blood/urine lab work, repeat exams while in ED, and administration of strong opiates/narcotics for pain control, admission to hospital or close patient follow up. Total time: 30 min bedside evaluation and treatment excludes procedures (EKG). Reason for critical care: Critically high Accu-Chek, poor IV access Possible complications: hypotension, hypertension, [place], shock, arrhythmias, metabolic acidosis, end organ damage, respiratory failure. Interventions: Labs, IV fluids, central line Course: Patient presenting with abdominal pain with nausea and vomiting. Accu- Chek critically high. History of poorly controlled diabetes. Recently discharged from [facility] for DKA. Patient has known poor IV access. Left femoral central line placed Consultations: nursing staff, EMS, family Performed by: Dr José Tolerated well condition = critical j. because of unstable vital signs this patient had a condition that could potentially threaten life or limb. I feel this is a critical patient who required my full attention while patient was considered critical. Total Critical Care Time excluding procedures was greater than 35 minutes (NAHOMI JOSÉ M.D.) Central Line Central Line : Consent: Verbal Central Line Lumen: triple Maximal Sterile Barrier Tech: yes cap, yes mask, yes sterile gown, yes sterile gloves, yes large sterile sheet, yes hand hygiene, yes chlorhexidine prep Central Line Postion: femoral (L) Anesthesia: Lidocaine Complications: none Central Line Post Position: sutured, good blood return Attempts: One Patient Tolerated: Well Complications: None (NAHOMI JOSÉ M.D.) Medical Decision Making Diagnostic Impression: Primary Impression: Hyperglycemia Additional Impressions: Vomiting Qualified Codes: R11.10 - Vomiting, unspecified CIERA (acute kidney injury) ER Course Hospital Course 42-year-old female presents ED with abdominal pain and vomiting. Critically high Accu-Chek Differential diagnoses include: ETOH/drug ingestion, sepsis, DKA Clinical course Patient placed on stretcher. 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 After initial history and physical I ordered labs, IV fluids, urine and chest Xray Patient is well-known to [facility]. Always has difficult IV access. Left femoral central line placed Labs-glucose greater than 900, anion gap mildly elevated, bicarbonate ok, creatinine elevated. no evidence of DKA. insulin given. IVFs given Insulin given, IV fluids given Case discussed with Dr. Paz and he agreed to accept the patient to his service for further care and support i. I feel this is a highly complex case requiring extensive working including EKG/Rhythm strip, Xray/CT/US, Blood/urine lab work, repeat exams while in ED, and administration of strong opiates/narcotics for pain control, admission to hospital or close patient follow up. diagnosis - hyperglycemia, vomiting, CIERA admitted to telemetry in serious condition Labs Test 02/01/18 05:31 02/01/18 05:53 02/01/18 06:06 02/02/18 09:25 Sodium Level 128 MMOL/L (136-145) 142 MMOL/L (136-145) Potassium Level 4.2 MMOL/L (3.5-5.1) 4.0 MMOL/L (3.5-5.1) Chloride Level 83 MMOL/L (98-107) 106 MMOL/L (98-107) Carbon Dioxide Level 28 MMOL/L (21-32) 29 MMOL/L (21-32) Anion Gap 17 mmol/L (5-15) 7 mmol/L (5-15) Blood Urea Nitrogen 26 mg/dL (7-18) 15 mg/dL (7-18) Creatinine 2.3 MG/DL (0.55-1.30) 1.5 MG/DL (0.55-1.30) Estimat Glomerular Filtration Rate 28.5 mL/min (>60) 46.5 mL/min (>60) Glucose Level 949 MG/DL (74-106) 193 MG/DL (74-106) Calcium Level 8.7 MG/DL (8.5-10.1) 8.2 MG/DL (8.5-10.1) Magnesium Level 1.5 MG/DL (1.8-2.4) Total Bilirubin 0.6 MG/DL (0.2-1.0) 0.3 MG/DL (0.2-1.0) Aspartate Amino Transf (AST/SGOT) 15 U/L (15-37) 30 U/L (15-37) Alanine Aminotransferase (ALT/SGPT) 13 U/L (12-78) 16 U/L (12-78) Alkaline Phosphatase 197 U/L (46-116) 181 U/L (46-116) Total Protein 7.5 G/DL (6.4-8.2) 7.6 G/DL (6.4-8.2) Albumin 2.7 G/DL (3.4-5.0) 2.7 G/DL (3.4-5.0) Globulin 4.8 g/dL Albumin/Globulin Ratio 0.6 (1.0-2.7) Acetone Level Positive-small (NEGATIVE) Urine Color Pale yellow Urine Appearance Clear Urine pH 7 (4.5-8.0) Urine Specific [place] 1.005 (1.005-1.035) Urine Protein Negative (NEGATIVE) Urine Glucose (UA) 4+ (NEGATIVE) Urine Ketones 3+ (NEGATIVE) Urine Occult Blood 5+ (NEGATIVE) Urine Nitrite Negative (NEGATIVE) Urine Bilirubin Negative (NEGATIVE) Urine Urobilinogen Normal MG/DL (0.0-1.0) Urine Leukocyte Esterase Negative (NEGATIVE) Urine RBC 5-10 /HPF (0 - 2) Urine WBC 0-2 /HPF (0 - 2) Urine Squamous Epithelial Cells Few /LPF (NONE/OCC) Urine Bacteria Few /HPF (NONE) Urine HCG, Qualitative Negative White Blood Count 12.4 K/UL (4.8-10.8) Red Blood Count 3.33 M/UL (4.20-5.40) Hemoglobin 10.6 G/DL (12.0-16.0) Hematocrit 32.5 % (37.0-47.0) Mean Corpuscular Volume 98 FL (80-99) Mean Corpuscular Hemoglobin 31.9 PG (27.0-31.0) Mean Corpuscular Hemoglobin Concent 32.7 G/DL (32.0-36.0) Red Cell Distribution Width 14.5 % (11.6-14.8) Platelet Count 245 K/UL (150-450) Mean Platelet Volume 8.3 FL (6.5-10.1) Neutrophils (%) (Auto) % (45.0-75.0) Lymphocytes (%) (Auto) % (20.0-45.0) Monocytes (%) (Auto) % (1.0-10.0) Eosinophils (%) (Auto) % (0.0-3.0) Basophils (%) (Auto) % (0.0-2.0) Differential Total Cells Counted 100 Neutrophils % (Manual) 88 % (45-75) Lymphocytes % (Manual) 9 % (20-45) Monocytes % (Manual) 3 % (1-10) Eosinophils % (Manual) 0 % (0-3) Basophils % (Manual) 0 % (0-2) Band Neutrophils 0 % (0-8) Platelet Estimate Adequate Platelet Morphology Normal Hypochromasia 1+ Anisocytosis 1+ Prothrombin Time 9.6 SEC (9.30-11.50) Prothromb Time International Ratio 0.9 (0.9-1.1) Activated Partial Thromboplast Time 25 SEC (23-33) Phosphorus Level 3.4 MG/DL (2.5-4.9) Direct Bilirubin 0.1 MG/DL (0.0-0.3) (NAHOMI JOSÉ M.D.) ER Course Please see above history and physical. The patient is improving. IV insulin and has been given. Glucose is coming down. The patient's bicarbonate is normal. Drs. Paz requested patient be admitted to ICU. (Koby Mims M.D.) EKG Diagnostic Results Rate: normal Rhythm: NSR ST Segments: no acute changes ASA given to the pt in ED: No (NAHOMI JOSÉ M.D.) Rhythm Strip Diag. Results EP Interpretation: yes Rhythm: NSR, no PVC's, no ectopy (NAHOMI JOSÉ M.D.) Last Vital Signs Date Time Temp Pulse Resp B/P (MAP) Pulse Ox O2 Delivery O2 Flow Rate FiO2 02/01/18 04:23 88 18 167/102 98 Room Air Status: improved (NAHOMI JOSÉ M.D.) Disposition: ADMITTED INPATIENT Condition: Serious Referrals: NON PHYSICIAN (PCP) NAHOMI JOSÉ M.D. Feb 01, 2018 06:10 Koby Mims M.D. Feb 01, 2018 14:49
[2018-02-01 06:25] LABS: HEMATOCRIT 32.5 % (37.0-47.0); HEMOGLOBIN 10.6 G/DL (12.0-16.0); MEAN CORPUSCULAR VOLUME 98 FL (80-99); PLATELET COUNT 245 K/UL (150-450); RED BLOOD COUNT 3.33 M/UL (4.20-5.40); RED CELL DISTRIBUTION WIDTH 14.5 % (11.6-14.8); WHITE BLOOD COUNT 12.4 K/UL (4.8-10.8)
--- NOTE | 2018-02-01 16:08 | Cardiology Report ---
APPROVED REPORT EKG Measurement Heart [id number] Normal sinus rhythm Left anterior fascicular block Nonspecific T wave abnormality Prolonged QT Abnormal ECG
[2018-02-01] MEDS ORDERED: Morphine Sulfate 4mg/ml Inj IVP PRN (16:15)
[2018-02-01] MEDS ORDERED: Nitroglycerin Subl 0.4mg tab SL PRN (16:15)
[2018-02-01] MEDS ORDERED: Miralax 17gm pkt ORAL PRN (16:15)
[2018-02-01] MEDS ORDERED: Albuterol/Ipratropium 3ml neb HHN PRN (16:15)
[2018-02-01] MEDS ORDERED: LORazepam Inj 2mg/ml 1ml IV PRN (16:15)
[2018-02-01] MEDS ORDERED: Insulin Rate Change 1 Each MISC PRN (16:15)
[2018-02-01] MEDS: Heparin 5000 units/ml inj SUBQ SCH (21:19)
[2018-02-02] VITALS (14 sets, daily range): BP systolic 114–151; BP diastolic 63–114
[2018-02-02] MEDS: Heparin 5000 units/ml inj SUBQ SCH ×2 (08:10→21:34)
[2018-02-02 10:08] LABS: INR 0.9 (0.9-1.1)
[2018-02-02 10:19] LABS: ANION GAP 7 mmol/L (5-15); BLOOD UREA NITROGEN 15 mg/dL (7-18); CALCIUM 8.2 MG/DL (8.5-10.1); CARBON DIOXIDE 29 MMOL/L (21-32); CHLORIDE 106 MMOL/L (98-107); CREATININE 1.5 MG/DL (0.55-1.30); SODIUM 142 MMOL/L (136-145)
[2018-02-02 10:23] LABS: ALANINE AMINOTRANSFERASE 16 U/L (12-78); ALBUMIN 2.7 G/DL (3.4-5.0); ALKALINE PHOSPHATASE 181 U/L (46-116); ASPARTATE AMINO TRANSFERASE 30 U/L (15-37); BILIRUBIN,DIRECT 0.1 MG/DL (0.0-0.3); BILIRUBIN,TOTAL 0.3 MG/DL (0.2-1.0); PHOSPHORUS 3.4 MG/DL (2.5-4.9)
--- NOTE | 2018-02-02 11:39 | History and Physical ---
History of Present Illness General Date patient seen: Feb 02, 2018 Reason for Hospitalization: Nausea Present Illness HPI 42-year-old female with hx of DM, recurrent DKA, just discharged from [facility] presented to to ED for evaluation of abdominal pain with nausea and vomiting. Pt's Accu-Chek was critically high. Pain is sharp, 7 out of 10, nonradiating. Pt was admitted to ICU for insulin drip treatment. Allergies: Coded Allergies: No Known Allergies (Verified , NONE, 12/12/17) Medication History Scheduled Amlodipine Besylate (Norvasc), 5 MG ORAL Q12HR, (Reported) Aspirin* (Aspirin*), 81 MG ORAL DAILY Calcium Carbonate (Calcium Carbonate), 500 MG PO DAILY, (Reported) Clonazepam (Clonazepam), 1 MG ORAL DAILY Clonidine Hcl* (Catapres*), 0.1 MG ORAL EVERY 6 HOURS, (Reported) Divalproex Sodium (Divalproex Sodium Er), 1,500 MG ORAL QHS Divalproex Sodium* (Depakote Er*), 250 MG ORAL EVERY 12 HOURS, (Reported) Fluconazole (Fluconazole), 200 MG ORAL DAILY Insulin Aspart* (Novolog*), 0 SUBQ BEFORE MEALS AND HS, (Reported) Insulin Detemir (Levemir Flexpen), 10 UNITS SUBQ Q12HR Ranitidine Hcl* (Zantac*), 150 MG ORAL TWICE A DAY, (Reported) Scheduled PRN Ondansetron* (Zofran*), 4 MG ORAL Q6H PRN Miscellaneous Medications Hydroxyzine Pamoate (Hydroxyzine Pamoate), 25 MG PO, (Reported) Unable to Obtain Medications (Unable To Obtain Meds), (Reported) Patient History Healthcare decision maker Resuscitation status Advanced Directive on File Past Medical/Surgical History Past Medical/Surgical History: (1) HTN (hypertension) (2) Diabetes (3) DKA (diabetic ketoacidoses) Review of Systems Constitutional: Reports: malaise, weakness Gastrointestinal: Reports: abdominal pain Physical Exam General Appearance: cachetic Lines, tubes and drains: peripheral HEENT: normocephalic, atraumatic Neck: non-tender, normal alignment Respiratory/Chest: chest wall non-tender, lungs clear Breasts: no masses Cardiovascular/Chest: normal peripheral pulses, normal rate Genitourinary/Rectal: normal genital exam Extremities: normal range of motion Last 24 Hour Vital Signs Date Time Temp Pulse Resp B/P (MAP) Pulse Ox O2 Delivery O2 Flow Rate FiO2 02/02/18 11:00 84 19 145/90 100 Room Air 02/02/18 10:00 82 20 143/85 100 Room Air 02/02/18 09:00 83 15 100 Room Air 02/02/18 08:34 71 14 Room Air 21 02/02/18 08:00 83 15 137/90 100 Room Air 02/02/18 08:00 81 02/02/18 07:00 78 15 137/90 100 Room Air 02/02/18 06:00 70 14 141/111 100 Room Air 02/02/18 05:00 74 15 151/104 100 Room Air 02/02/18 04:00 73 02/02/18 04:00 98.0 71 14 133/114 96 Room Air 98.0 02/02/18 03:00 67 15 114/63 100 Room Air 02/02/18 02:00 69 15 114/63 100 Room Air 02/02/18 01:00 70 12 114/63 100 Nasal Cannula 2.0 02/02/18 00:00 76 02/02/18 00:00 97.9 73 17 122/68 100 Nasal Cannula 2.0 97.9 02/01/18 23:00 74 20 94/43 98 Nasal Cannula 2.0 02/01/18 22:00 93 20 141/91 98 Room Air 02/01/18 21:00 82 21 130/80 98 Room Air 02/01/18 20:00 98.0 85 19 128/105 97 Room Air 98.0 02/01/18 20:00 92 02/01/18 19:00 93 20 126/74 100 Room Air 02/01/18 18:00 93 20 123/74 100 Room Air 02/01/18 17:59 90 02/01/18 17:45 98.4 90 20 105/75 96 Room Air 98.4 02/01/18 17:00 90 20 102/78 98 Room Air 02/01/18 16:48 93 22 158/83 100 Room Air Intake and Output 02/01/18 02/02/18 19:00 07:00 Intake Total 2300 ml 1808.44 ml Output Total 300 ml Balance 2300 ml 1508.44 ml Intake Oral 0 ml IV Total 2300 ml 1808.44 ml Output Urine Total 300 ml # Voids 1 # Bowel Movements 2 1 Laboratory Tests Test 02/02/18 09:25 Prothrombin Time 9.6 SEC (9.30-11.50) Prothromb Time International Ratio 0.9 (0.9-1.1) Activated Partial Thromboplast Time 25 SEC (23-33) Sodium Level 142 MMOL/L (136-145) Potassium Level 4.0 MMOL/L (3.5-5.1) Chloride Level 106 MMOL/L (98-107) Carbon Dioxide Level 29 MMOL/L (21-32) Anion Gap 7 mmol/L (5-15) Blood Urea Nitrogen 15 mg/dL (7-18) Creatinine 1.5 MG/DL (0.55-1.30) H Estimat Glomerular Filtration Rate 46.5 mL/min (>60) Glucose Level 193 MG/DL (74-106) #H Calcium Level 8.2 MG/DL (8.5-10.1) L Phosphorus Level 3.4 MG/DL (2.5-4.9) Total Bilirubin 0.3 MG/DL (0.2-1.0) Direct Bilirubin 0.1 MG/DL (0.0-0.3) Aspartate Amino Transf (AST/SGOT) 30 U/L (15-37) Alanine Aminotransferase (ALT/SGPT) 16 U/L (12-78) Alkaline Phosphatase 181 U/L (46-116) H Total Protein 7.6 G/DL (6.4-8.2) Albumin 2.7 G/DL (3.4-5.0) L Height (Feet): 5 Height (Inches): 6.00 Weight (Pounds): 119 Medications Current Medications Medications (Trade) Dose Ordered Sig/Mateo Route PRN Reason Start Time Stop Time Status Last Admin Dose Admin Acetaminophen (Tylenol) 650 mg Q4H PRN ORAL Fever 02/01/18 16:15 03/03/18 16:14 Albuterol/ Ipratropium (Albuterol/ Ipratropium) 3 ml Q4H PRN HHN Shortness of Breath 02/01/18 16:15 02/06/18 16:14 Dextrose (Dextrose 50%) PRN PRN IV HYPOGLYCEMIA 02/01/18 16:15 03/03/18 16:14 3/12/18 02:35 Dextrose (Dextrose 50%) STAT PRN IV Hypoglycemia 02/01/18 16:15 03/03/18 16:14 Heparin Sodium (Porcine) (Heparin 5000 units/ml) 5,000 units EVERY 12 HOURS SUBQ 02/01/18 21:00 03/03/18 20:59 02/02/18 08:10 Insulin Human Regular (NovoLIN R) 5 units PRN PRN IV BS 200-299 02/01/18 16:15 03/03/18 16:14 Insulin Human Regular (NovoLIN R) 10 units PRN PRN IV BS=>300 02/01/18 16:15 03/03/18 16:14 02/01/18 19:13 Insulin Human Regular 100 units/ Sodium Chloride 101 ml @ 0 mls/hr Q24H IV 02/01/18 23:00 03/03/18 22:59 02/01/18 23:22 Lorazepam (Ativan 2mg/ml 1ml) 2 mg Q2H PRN IV agitation 02/01/18 16:15 02/08/18 16:14 02/01/18 22:31 Miscellaneous Medication (Insulin Rate Change) 1 ea PRN PRN MISC To Patient Comfort 02/01/18 16:15 03/03/18 16:14 Morphine Sulfate (Morphine Sulfate) 4 mg Q4H PRN IVP Severe Pain (Pain Scale 7-10) 02/01/18 16:15 02/08/18 16:14 Nitroglycerin (Ntg) 0.4 mg Q5M PRN SL Prn Chest Pain 02/01/18 16:15 03/03/18 16:14 Ondansetron HCl (Zofran) 4 mg Q6H PRN IVP Nausea & Vomiting 02/01/18 16:15 03/03/18 16:14 Polyethylene Glycol (Miralax) 17 gm DAILYPRN PRN ORAL Constipation 02/01/18 16:15 03/03/18 16:14 Sodium Chloride 1,000 ml @ 150 mls/hr Q6H40M IV 02/01/18 16:30 03/03/18 16:29 02/02/18 11:34 Assessment/Plan Problem List: (1) DKA (diabetic ketoacidoses) ICD Codes: E13.10 - Other specified diabetes mellitus with ketoacidosis without coma SNOMED: 16520397, 943264549 (2) Intractable nausea and vomiting ICD Codes: R11.2 - Nausea with vomiting, unspecified SNOMED: 777964278, 729875132 (3) Gastroparesis due to DM ICD Codes: E11.43 - Type 2 diabetes mellitus with diabetic autonomic (poly) neuropathy; K31.84 - Gastroparesis SNOMED: 15617236, 351735057 (4) Non compliance with medical treatment ICD Codes: Z91.19 - Patient's noncompliance with other medical treatment and regimen SNOMED: 1700966 Assessment/Plan insulin drip iv fluids check electrolytes symptomatic treatment dvt prophylaxis endo to see. MILA LAINEZ Feb 02, 2018 11:39
[2018-02-02] MEDS ORDERED: Levemir Flexpen SUBQ SCH (14:00)
[2018-02-02] MEDS ORDERED: Nitroglycerin Subl 0.4mg tab SL PRN (14:50)
[2018-02-02] MEDS ORDERED: Morphine Sulfate 4mg/ml Inj IVP PRN (15:00)
[2018-02-02] MEDS ORDERED: Albuterol/Ipratropium 3ml neb HHN PRN (15:00)
[2018-02-02] MEDS ORDERED: Miralax 17gm pkt ORAL PRN (16:15)
[2018-02-02] MEDS: NovoLOG Insulin Flexpen SUBQ SCH ×2 (16:25→21:28)
[2018-02-02] MEDS ORDERED: NovoLOG Insulin Flexpen SUBQ SCH ×2 (16:30→16:50)
--- NOTE | 2018-02-02 18:30 | Consultation ---
DATE OF CONSULTATION: 02/02/2018 ENDOCRINOLOGY CONSULTATION CONSULTING PHYSICIAN: Bertin Alejo M.D. REFERRING PHYSICIAN: Fred Paz M.D. REASON FOR CONSULTATION: Diabetic ketoacidosis. HISTORY OF PRESENT ILLNESS: The patient is a 42-year-old female with history of type 1 diabetes, who was recently discharged from the hospital, came back with diabetic ketoacidosis. The patient was admitted to the ICU, started on IV fluids and IV insulin. I was called to follow for the management of diabetic ketoacidosis and type 1 diabetes. PAST MEDICAL HISTORY: 1. Type 1 diabetes. 2. Multiple DKA. 3. Noncompliance with medications. 4. Gastroparesis. MEDICATIONS: As an outpatient, 1. Levemir 10 units b.i.d. 2. NovoLog sliding scale. SOCIAL HISTORY: No smoking, alcohol, or drug use. FAMILY HISTORY: Noncontributory. REVIEW OF SYSTEMS: The patient is not cooperative. PHYSICAL EXAMINATION: GENERAL: The patient is not in apparent distress. VITAL SIGNS: Blood pressure is 130/60, pulse of 80, and temperature of 98.3 degrees. HEENT: Pupils are equal and reactive to light. Sclerae anicteric. NECK: No JVD. HEART: Regular. LUNGS: Clear. ABDOMEN: Positive bowel sounds. EXTREMITIES: No clubbing, cyanosis, or edema. LABORATORY DATA: WBC 12.4, hemoglobin 10, hematocrit 32, and platelets of 245. Sodium 128, potassium 4.2, chloride 82, bicarbonate 20, BUN 26, creatinine 2.3, and glucose 949. DIAGNOSES: 1. Diabetic ketoacidosis. 2. Noncompliance. 3. Type 1 diabetes. PLAN: 1. Continue IV hydration. 2. Continue IV fluids. 3. Continue frequent blood glucose monitoring. 4. Follow electrolytes. 5. Once the gap is closed, we will convert to subcutaneous insulin therapy. Thank you, Dr. Paz, for the courtesy of this consultation. Bertin Alejo M.D. DR: Satish JOB#: [id number] CC: ALICIA
[2018-02-02] MEDS: Levemir Flexpen SUBQ SCH (21:30)
[2018-02-02] MEDS: LORazepam Inj 2mg/ml 1ml IV PRN (21:35)
[2018-02-03 04:00] VITALS: BP 130/71
[2018-02-03] MEDS: NovoLOG Insulin Flexpen SUBQ SCH ×4 (06:30→20:45)
[2018-02-03 08:00] VITALS: BP 130/69
[2018-02-03] MEDS: Heparin 5000 units/ml inj SUBQ SCH ×2 (08:45→20:42)
[2018-02-03] MEDS: Levemir Flexpen SUBQ SCH ×2 (08:51→20:43)
[2018-02-03 16:00] VITALS: BP 161/108
[2018-02-03 20:00] VITALS: BP 163/89
[2018-02-03] MEDS: Dyna-Hex 2% Top Sol 2oz TOPIC SCH (20:41)
[2018-02-03] MEDS: LORazepam Inj 2mg/ml 1ml IV PRN (20:41)
--- NOTE | 2018-02-03 21:10 | Pulmonology Progress Note ---
Assessment/Plan Problems: (1) DKA (diabetic ketoacidoses) (2) Intractable nausea and vomiting (3) Gastroparesis due to DM (4) Non compliance with medical treatment Assessment/Plan improving sliding scale symptomatic treatment insulin coverage psych evaluation Subjective ROS Limited/Unobtainable: No Allergies: Coded Allergies: No Known Allergies (Verified , NONE, 12/12/17) Objective Last 24 Hour Vital Signs Date Time Temp Pulse Resp B/P (MAP) Pulse Ox O2 Delivery O2 Flow Rate FiO2 02/03/18 20:00 98.3 93 21 163/89 100 98.3 02/03/18 16:00 96.4 19 161/108 93 Room Air 96.4 02/03/18 08:00 98.8 89 17 130/69 100 Room Air 98.8 02/03/18 07:55 67 14 Room Air 21 02/03/18 04:00 98.6 79 20 130/71 96 98.6 Intake and Output 02/02/18 02/03/18 19:00 07:00 Intake Total 500 ml 960 ml Output Total 0 ml Balance 500 ml 960 ml Intake Oral 500 ml 960 ml Output Urine Total 0 ml # Voids 2 2 # Bowel Movements 3 2 Objective General Appearance: cachectic HEENT: normocephalic, atraumatic, anicteric Respiratory/Chest: chest wall non-tender, Breasts: no masses Cardiovascular: normal peripheral pulses Abdomen: normal bowel sounds Genitourinary: normal external genitalia Microbiology Date/Time Source Procedure Growth Status 02/01/18 08:23 Rectum VRE Culture - Final Enterococcus Faecalis - Vre Complete Current Medications Medications (Trade) Dose Ordered Sig/Mateo Route PRN Reason Start Time Stop Time Status Last Admin Dose Admin Acetaminophen (Tylenol) 650 mg Q4H PRN ORAL T>100.5 02/02/18 15:00 03/03/18 14:59 Al Hydroxide/Mg Hydroxide (Mylanta) 30 ml FOUR TIMES A DAY ORAL 02/02/18 18:00 03/04/18 17:59 02/03/18 17:59 Albuterol/ Ipratropium (Albuterol/ Ipratropium) 3 ml Q4H PRN HHN Shortness of Breath 02/02/18 15:00 02/06/18 14:59 Chlorhexidine Gluconate (Mara-Hex 2%) 1 applic DAILY@1999 TOPIC 02/03/18 20:00 03/05/18 19:59 02/03/18 20:41 Dextrose (Dextrose 50%) STAT PRN IV Hypoglycemia 02/02/18 15:00 03/04/18 14:59 02/03/18 07:03 Heparin Sodium (Porcine) (Heparin 5000 units/ml) 5,000 units EVERY 12 HOURS SUBQ 02/02/18 21:00 03/03/18 20:59 02/02/18 21:34 Insulin Aspart (NovoLOG) BEFORE MEALS AND HS SUBQ 02/02/18 16:30 03/04/18 16:29 02/03/18 20:45 Insulin Detemir (Levemir) 10 units Q12HR SUBQ 02/02/18 21:00 03/04/18 13:59 02/03/18 20:43 Lorazepam (Ativan 2mg/ml 1ml) 2 mg Q2H PRN IV agitation 02/02/18 15:00 02/08/18 14:59 02/03/18 20:41 Morphine Sulfate (Morphine Sulfate) 4 mg Q4H PRN IVP Severe Pain (Pain Scale 7-10) 02/02/18 15:00 02/08/18 14:59 Nitroglycerin (Ntg) 0.4 mg Q5M PRN SL Prn Chest Pain 02/02/18 14:50 03/03/18 16:14 Ondansetron HCl (Zofran) 4 mg Q6H PRN IVP Nausea & Vomiting 02/02/18 15:00 03/03/18 14:59 02/03/18 20:09 Polyethylene Glycol (Miralax) 17 gm DAILYPRN PRN ORAL Constipation 02/02/18 16:15 03/03/18 16:14 02/03/18 17:59 Fred Paz MD Feb 03, 2018 21:09
[2018-02-04] VITALS: BP 163/97
[2018-02-04 04:00] VITALS: BP 132/82
[2018-02-04] MEDS: NovoLOG Insulin Flexpen SUBQ SCH ×4 (05:41→20:40)
[2018-02-04] MEDS: Heparin 5000 units/ml inj SUBQ SCH ×2 (09:00→20:35)
[2018-02-04] MEDS: Levemir Flexpen SUBQ SCH ×3 (09:48→20:38)
[2018-02-04] MEDS ORDERED: Tubing IV Secondary IV ONE (14:23)
[2018-02-04 16:00] VITALS: BP 121/64
--- NOTE | 2018-02-04 18:47 | Pulmonology Progress Note ---
Assessment/Plan Problems: (1) DKA (diabetic ketoacidoses) (2) Intractable nausea and vomiting (3) Gastroparesis due to DM (4) Non compliance with medical treatment Assessment/Plan very labile DM sliding scale symptomatic treatment insulin coverage psych evaluation probably needs to go to a half-way Subjective ROS Limited/Unobtainable: No Allergies: Coded Allergies: No Known Allergies (Verified , NONE, 12/12/17) Objective Last 24 Hour Vital Signs Date Time Temp Pulse Resp B/P (MAP) Pulse Ox O2 Delivery O2 Flow Rate FiO2 02/04/18 16:00 97.7 17 121/64 98 Room Air 97.7 02/04/18 07:35 96 16 Room Air 21 02/04/18 04:00 98.0 96 21 132/82 94 98.0 02/04/18 00:00 98.1 93 21 163/97 92 98.1 02/03/18 20:00 98.3 93 21 163/89 100 98.3 02/03/18 19:20 72 16 Room Air 21 Intake and Output 02/03/18 02/04/18 19:00 07:00 Intake Total 240 ml Balance 240 ml Intake Oral 240 ml # Bowel Movements 1 Objective General Appearance: cachectic HEENT: normocephalic, atraumatic, anicteric Respiratory/Chest: chest wall non-tender, Breasts: no masses Cardiovascular: normal peripheral pulses Abdomen: normal bowel sounds Genitourinary: normal external genitalia Current Medications Medications (Trade) Dose Ordered Sig/Mateo Route PRN Reason Start Time Stop Time Status Last Admin Dose Admin Acetaminophen (Tylenol) 650 mg Q4H PRN ORAL T>100.5 02/02/18 15:00 03/03/18 14:59 Al Hydroxide/Mg Hydroxide (Mylanta) 30 ml FOUR TIMES A DAY ORAL 02/02/18 18:00 03/04/18 17:59 02/04/18 17:32 Albuterol/ Ipratropium (Albuterol/ Ipratropium) 3 ml Q4H PRN HHN Shortness of Breath 02/02/18 15:00 02/06/18 14:59 Chlorhexidine Gluconate (Mara-Hex 2%) 1 applic DAILY@1999 TOPIC 02/03/18 20:00 03/05/18 19:59 02/03/18 20:41 Dextrose (Dextrose 50%) STAT PRN IV Hypoglycemia 02/02/18 15:00 03/04/18 14:59 02/03/18 07:03 Heparin Sodium (Porcine) (Heparin 5000 units/ml) 5,000 units EVERY 12 HOURS SUBQ 02/02/18 21:00 03/03/18 20:59 02/02/18 21:34 Insulin Aspart (NovoLOG) BEFORE MEALS AND HS SUBQ 02/02/18 16:30 03/04/18 16:29 02/04/18 17:34 Insulin Detemir (Levemir) 10 units Q12HR SUBQ 02/02/18 21:00 03/04/18 13:59 02/04/18 09:52 Lorazepam (Ativan 2mg/ml 1ml) 2 mg Q2H PRN IV agitation 02/02/18 15:00 02/08/18 14:59 02/03/18 20:41 Morphine Sulfate (Morphine Sulfate) 4 mg Q4H PRN IVP Severe Pain (Pain Scale 7-10) 02/02/18 15:00 02/08/18 14:59 Nitroglycerin (Ntg) 0.4 mg Q5M PRN SL Prn Chest Pain 02/02/18 14:50 03/03/18 16:14 Ondansetron HCl (Zofran) 4 mg Q6H PRN IVP Nausea & Vomiting 02/02/18 15:00 03/03/18 14:59 02/04/18 02:46 Polyethylene Glycol (Miralax) 17 gm DAILYPRN PRN ORAL Constipation 02/02/18 16:15 03/03/18 16:14 02/03/18 17:59 Promethazine HCl (Phenergan) 25 mg Q4H PRN IV Nausea & Vomiting 02/04/18 03:15 03/06/18 03:14 Fred Paz MD Feb 04, 2018 18:47
[2018-02-04] MEDS: Dyna-Hex 2% Top Sol 2oz TOPIC SCH (20:42)
[2018-02-04] MEDS: LORazepam Inj 2mg/ml 1ml IV PRN (21:41)
[2018-02-05 04:00] VITALS: BP 124/72
[2018-02-05] MEDS: NovoLOG Insulin Flexpen SUBQ SCH ×3 (06:17→16:30)
[2018-02-05] MEDS: Heparin 5000 units/ml inj SUBQ SCH (09:00)
[2018-02-05] MEDS: Levemir Flexpen SUBQ SCH (09:42)
[2018-02-05 12:00] VITALS: BP 154/93
--- NOTE | 2018-02-05 15:12 | Pulmonology Progress Note ---
Assessment/Plan Problems: (1) DKA (diabetic ketoacidoses) (2) Intractable nausea and vomiting (3) Gastroparesis due to DM (4) Non compliance with medical treatment Assessment/Plan very labile DM sliding scale symptomatic treatment insulin coverage psych evaluation probably needs to go to a long term Subjective ROS Limited/Unobtainable: No Allergies: Coded Allergies: No Known Allergies (Verified , NONE, 12/12/17) Objective Last 24 Hour Vital Signs Date Time Temp Pulse Resp B/P (MAP) Pulse Ox O2 Delivery O2 Flow Rate FiO2 02/05/18 12:00 97.8 86 18 154/93 98 Room Air 97.8 02/05/18 04:00 94 Room Air 02/05/18 04:00 98.3 80 19 124/72 94 Room Air 98.3 02/04/18 20:00 98 Room Air 02/04/18 19:43 94 20 Room Air 02/04/18 16:00 97.7 17 121/64 98 Room Air 97.7 Intake and Output 02/04/18 02/05/18 19:00 07:00 Intake Total 960 ml 240 ml Output Total 600 ml Balance 360 ml 240 ml Intake Oral 960 ml 240 ml Output Urine Total 600 ml # Voids 5 1 # Bowel Movements 2 Objective General Appearance: cachectic HEENT: normocephalic, atraumatic, anicteric Respiratory/Chest: chest wall non-tender, Breasts: no masses Cardiovascular: normal peripheral pulses Abdomen: normal bowel sounds Genitourinary: normal external genitalia Current Medications Medications (Trade) Dose Ordered Sig/Mateo Route PRN Reason Start Time Stop Time Status Last Admin Dose Admin Acetaminophen (Tylenol) 650 mg Q4H PRN ORAL T>100.5 02/02/18 15:00 03/03/18 14:59 Al Hydroxide/Mg Hydroxide (Mylanta) 30 ml FOUR TIMES A DAY ORAL 02/02/18 18:00 03/04/18 17:59 02/04/18 20:40 Albuterol/ Ipratropium (Albuterol/ Ipratropium) 3 ml Q4H PRN HHN Shortness of Breath 02/02/18 15:00 02/06/18 14:59 Chlorhexidine Gluconate (Mara-Hex 2%) 1 applic DAILY@1999 TOPIC 02/03/18 20:00 03/05/18 19:59 3/14/18 20:42 Dextrose (Dextrose 50%) STAT PRN IV Hypoglycemia 02/02/18 15:00 03/04/18 14:59 02/03/18 07:03 Heparin Sodium (Porcine) (Heparin 5000 units/ml) 5,000 units EVERY 12 HOURS SUBQ 02/02/18 21:00 03/03/18 20:59 02/04/18 20:35 Insulin Aspart (NovoLOG) BEFORE MEALS AND HS SUBQ 02/02/18 16:30 03/04/18 16:29 02/05/18 06:17 Insulin Detemir (Levemir) 10 units Q12HR SUBQ 02/02/18 21:00 03/04/18 13:59 02/05/18 09:42 Lorazepam (Ativan 2mg/ml 1ml) 2 mg Q2H PRN IV agitation 02/02/18 15:00 02/08/18 14:59 02/04/18 21:41 Morphine Sulfate (Morphine Sulfate) 4 mg Q4H PRN IVP Severe Pain (Pain Scale 7-10) 02/02/18 15:00 02/08/18 14:59 Nitroglycerin (Ntg) 0.4 mg Q5M PRN SL Prn Chest Pain 02/02/18 14:50 03/03/18 16:14 Ondansetron HCl (Zofran) 4 mg Q6H PRN IVP Nausea & Vomiting 02/02/18 15:00 03/03/18 14:59 02/04/18 02:46 Polyethylene Glycol (Miralax) 17 gm DAILYPRN PRN ORAL Constipation 02/02/18 16:15 03/03/18 16:14 02/03/18 17:59 Promethazine HCl (Phenergan) 25 mg Q4H PRN IV Nausea & Vomiting 02/04/18 03:15 03/06/18 03:14 Fred Paz MD Feb 05, 2018 15:12
[2018-02-06] MEDS ORDERED: NORVASC5 MG ORAL (07:36)
[2018-02-06] MEDS ORDERED: CATAPRES0.1 MG ORAL (07:37)
[2018-02-06] MEDS ORDERED: NOVOLOG100 UNIT/3 SUBQ (07:37)
[2018-02-06] MEDS ORDERED: LEVEMIR FL100 UNIT/1 SUBQ (07:38)
--- NOTE | 2018-02-06 14:54 | Discharge Summary ---
Discharge Summary Hospital Course Date of Admission Feb 01, 2018 at 15:58 Date of Discharge Feb 05, 2018 at 17:23 Admitting Diagnosis Hyperglycemia HPI Amaya Wallis is a 42 year old female who was admitted on Feb 01, 2018 at 15: 58 for Hyperglycemia Hospital Course [id number] Discharge Discharge Disposition Patient was discharged to Home (01) Discharge Diagnoses: Estefania Balderas NP Feb 06, 2018 14:54
--- NOTE | 2018-02-07 02:00 | Discharge Summary 2 SIG ---
DATE OF ADMISSION: 02/01/2018 DATE OF DISCHARGE: 02/05/2018 [employer] CORE FEEDER: Bertin Alejo M.D. BRIEF HOSPITAL COURSE: The patient is a 42-year-old female with history of diabetes mellitus with recurrent DKA, presented to ED for evaluation of abdominal pain with nausea and vomiting. Accu-Chek was critically high. On evaluation at ED, labs showed glucose greater than 900 and anion gap 17. Acetone was positive. She had a poor IV access and a left femoral central line was inserted. She was given IV fluids and was admitted to ICU on heparin drip. Bicarbonate was normal. She was seen by Dr. Alejo. The patient has type 1 diabetes. Glucose eventually improved. Insulin drip was discontinued and was given Levemir 10 units q.12 h. with NovoLog before meals per sliding scale. Blood glucose was very labile and had been noncompliant with medications. order worker was called in to assess as the patient may eventually benefit from fci. She was reluctant to social service. She was tolerating diet well. She was eventually discharged home. FINAL DIAGNOSES: 1. Acute diabetic ketoacidosis. 2. Type 1 diabetes. 3. Noncompliance. 4. Nausea and vomiting with gastroparesis due to diabetes mellitus. DISPOSITION: The patient was discharged home. DISCHARGE MEDICATIONS: Refer to medication list. DISCHARGE INSTRUCTIONS: Follow up with PCP. Fred Paz M.D. I have been assigned to dictate discharge summary on this account and I was not involved in the patient's management. Estefania Balderas N.P. DR: KARLI JOB#: [id number] CC: ALICIA
== END 2018-02-05 17:23 | disposition home or self-care (01) | DRG 420 ==
LOC: EDBD 04:27 → EMR 05:17 → EDBEDREQ 07:48 → EDBEDREQSVC 14:41 → EDBEDREQ 14:47 → ICU 15:58 → 4E 02-02 14:00
PROC: 06HN33Z Insertion of Infusion Device into Left Femoral Vein, Percutaneous Approach (ICD-10-PCS; principal; 2018-02-01)
DX: E10.10 Type 1 diabetes mellitus with ketoacidosis without coma (principal); K31.84 Gastroparesis; E10.43 Type 1 diabetes mellitus with diabetic autonomic (poly)neuropathy; I10 Essential (primary) hypertension; Z79.4 Long term (current) use of insulin; Z91.14 Patient's other noncompliance with medication regimen
CPT/HCPCS: 36415; 80048; 80053; 80076; 81003; 81025; 82009; 82962; 83735; 84100; 85007; 85025; 85610; 85730; 87081; 93005; 94664; 99291; J1815; J2405; S5561

== ENCOUNTER 2018-02-06 07:38 | Emergency (ER) | payer OTHER ==
[~2018-02-06] VITALS: Ht 152.4 cm; Wt 49.9 kg
[2018-02-06 07:38] VITALS: BP 176/92
--- NOTE | 2018-02-06 07:50 | Emergency Room Report ---
History of Present Illness General Chief Complaint: Chest Pain Source: Patient, EMS Present Illness HPI 42-year-old female brought in by by EMS with complaints of continued vomiting. Patient states she "just left the hospital this morning" however EMS states patient was discharged at last night. Patient was recently admitted here however there is no documentation from managing hospitalist past February 02 so I'm not sure what else was done for patient and her how long she was actually here as she is not providing reliable history of present illness at this point. When asked questions patient starts yelling. She is otherwise lying on the stretcher eyes closed not interacting with staff. Allergies: Coded Allergies: No Known Allergies (Verified , NONE, 12/12/17) Patient History Past Medical History: DM Past Surgical History: none Pertinent Family History: none Social History: Denies: smoking, alcohol use, drug use Now: No Immunizations: UTD Reviewed Nursing Documentation: PMH: Agreed, PSxH: Agreed Nursing Documentation-PMH Hx Cardiac Problems: No Hx Hypertension: Yes Hx Pacemaker: No Hx Asthma: No Hx COPD: No Hx Diabetes: Yes - RENAL FAILURE Hx Cancer: No Hx Gastrointestinal Problems: Yes Hx Neurological Problems: Yes Hx Cerebrovascular Accident: No Hx Seizures: Yes Hx Vertigo: Yes Hx Dizziness: Yes Hx Headaches: Yes Hx Weakness: Yes Hx Fatigue: Yes Hx Neurologic Surgery: No Review of Systems All Other Systems: limited - Patient not cooperative Physical Exam Vital Signs Date Time Temp Pulse Resp B/P (MAP) Pulse Ox O2 Delivery O2 Flow Rate FiO2 02/06/18 07:23 98.2 94 20 156/92 98 Room Air 98.2 Sp02 EP Interpretation: reviewed, normal General Appearance: normal inspection, well appearing, no apparent distress, alert, GCS 15, non-toxic Head: normocephalic, atraumatic Eyes: bilateral eye PERRL, bilateral eye EOMI ENT: normal ENT inspection, hearing grossly normal, normal pharynx, no angioedema, normal voice, TMs + canals normal, uvula midline, moist mucus membranes Neck: normal inspection, full range of motion, supple, thyroid normal, no meningismus, no bony tend Respiratory: normal inspection, lungs clear, normal breath sounds, no rhonchi, no respiratory distress, no retraction, no accessory muscle use, no wheezing, speaking full sentences Cardiovascular #1: regular rate, rhythm, no edema, no JVD, normal capillary refill Gastrointestinal: normal inspection, normal bowel sounds, non tender, soft, no mass, no peritonitis, non-distended, no guarding, no hernia, no pulsatile mass Genitourinary: no CVA tenderness Musculoskeletal: normal inspection, back normal, normal range of motion, no calf tenderness, pelvis stable, Daniel's Sign negative Neurologic: normal inspection, alert, oriented x3, responsive, hospice entrance attendant III-XII nml as tested, motor strength/tone normal, cerebellar normal, normal gait, speech normal Psychiatric: normal inspection, judgement/insight normal, mood/affect normal, no suicidal/homicidal ideation, no delusions Skin: normal inspection, normal color, no rash Lymphatic: normal inspection, no adenopathy Medical Decision Making Diagnostic Impression: Primary Impression: Hyperglycemia Additional Impression: Nausea alone ER Course Vital signs stable, afebrile Labs: No leukocytosis, H&H stable Elevated glucose over 400, however no serum ketones, potassium normal, Bicarbonate normal, no anion gap Was given 2 x doses of SubQ insulin with reduction in serum glucose patient slept throughout stay in ER Was given oral Zofran -no additional vomiting in the ER Given that patient was just discharged last night and is not currently in acidosis, we'll discharge back home she has prescriptions for management of diabetes at home ER course: Patient has remained stable during ED stay. Disposition: Patient is to be discharged to home. Patient is instructed to follow up with their primary care doctor within 5 days. Strict return precautions discussed with patient such as fever, chills, worsening/severe pain, nausea, vomiting, which may indicate severe illness. Patient verbalizes understanding and agrees with plan. Please note that this Emergency Department Report was dictated using Linkfluencemultimedia assistant technology software, occasionally this can lead to erroneous entry secondary to interpretation by the dictation equipment Last Vital Signs Date Time Temp Pulse Resp B/P (MAP) Pulse Ox O2 Delivery O2 Flow Rate FiO2 02/06/18 07:23 98.2 94 20 156/92 98 Room Air 98.2 Status: improved Disposition: HOME, SELF-CARE SAIDA TRAMMELL M.D. Feb 06, 2018 07:49
[2018-02-06 08:41] LABS: BASOPHILS % (AUTO) 1.2 % (0.0-2.0); EOSINOPHILS % (AUTO) 0.6 % (0.0-3.0); HEMATOCRIT 35.8 % (37.0-47.0); HEMOGLOBIN 12.1 G/DL (12.0-16.0); LYMPHOCYTES % (AUTO) 17.9 % (20.0-45.0); MEAN CORPUSCULAR VOLUME 94 FL (80-99); MONOCYTES % (AUTO) 6.4 % (1.0-10.0); NEUTROPHILS % (AUTO) 73.9 % (45.0-75.0); PLATELET COUNT 184 K/UL (150-450); RED CELL DISTRIBUTION WIDTH 13.4 % (11.6-14.8); WHITE BLOOD COUNT 11.4 K/UL (4.8-10.8)
[2018-02-06 09:06] LABS: ANION GAP 7 mmol/L (5-15); BLOOD UREA NITROGEN 17 mg/dL (7-18); CALCIUM 8.9 MG/DL (8.5-10.1); CARBON DIOXIDE 32 MMOL/L (21-32); CHLORIDE 95 MMOL/L (98-107); CREATININE 1.9 MG/DL (0.55-1.30); POTASSIUM 4.2 MMOL/L (3.5-5.1); SODIUM 134 MMOL/L (136-145)
[2018-02-06 09:10] LABS: ALANINE AMINOTRANSFERASE 22 U/L (12-78); ALBUMIN 2.8 G/DL (3.4-5.0); ALBUMIN/GLOBULIN RATIO 0.5 (1.0-2.7); ALKALINE PHOSPHATASE 189 U/L (46-116); ASPARTATE AMINO TRANSFERASE 26 U/L (15-37); BILIRUBIN,TOTAL 0.4 MG/DL (0.2-1.0)
[2018-02-06 10:00] VITALS: BP 149/91
[2018-02-06 12:28] VITALS: BP 146/88
[2018-02-06 14:30] VITALS: BP 151/85
--- NOTE | 2018-02-06 16:39 | Emergency Room Report ---
History of Present Illness General Chief Complaint: Chest Pain Source: Patient, EMS Present Illness HPI this patient was discharged by the previous physician However she complained of persistent vomiting and refused to be taken home in the ambulance. She reports she keeps retching and vomiting. I repeated an EKG because the nurse told me that she was saying she is having chest pain but when I talk to her she was only complaining of doing that with the vomiting and nausea. Repeat EKG was timed at 1608, it revealed sinus rhythm rate 83T- segment changes no T-wave inversions. I will admit her for persistent vomiting. Allergies: Coded Allergies: No Known Allergies (Verified , NONE, 12/12/17) Patient History Past Medical History: see triage record Now: No Reviewed Nursing Documentation: PMH: Agreed, PSxH: Agreed Nursing Documentation-PMH Hx Cardiac Problems: No Hx Hypertension: Yes Hx Pacemaker: No Hx Asthma: No Hx COPD: No Hx Diabetes: Yes - RENAL FAILURE Hx Cancer: No Hx Gastrointestinal Problems: Yes Hx Neurological Problems: Yes Hx Cerebrovascular Accident: No Hx Seizures: Yes Hx Vertigo: Yes Hx Dizziness: Yes Hx Headaches: Yes Hx Weakness: Yes Hx Fatigue: Yes Hx Neurologic Surgery: No Review of Systems All Other Systems: negative except mentioned in HPI Physical Exam Vital Signs Date Time Temp Pulse Resp B/P (MAP) Pulse Ox O2 Delivery O2 Flow Rate FiO2 02/06/18 07:23 98.2 94 20 156/92 98 Room Air 98.2 General Appearance: well appearing, no apparent distress Head: normocephalic, atraumatic ENT: hearing grossly normal, normal voice Neck: full range of motion, supple Respiratory: no respiratory distress, speaking full sentences Musculoskeletal: no calf tenderness Neurologic: alert, normal gait Psychiatric: mood/affect normal Skin: no rash Medical Decision Making Reaction to Intervention: No change Diagnostic Impression: Primary Impression: Hyperglycemia Additional Impressions: Nausea alone Intractable vomiting EKG Diagnostic Results EKG Time: 16:08 Rate: normal Rhythm: NSR ST Segments: no acute changes ASA given to the pt in ED: Yes Rhythm Strip Diag. Results Rhythm Strip Time: 16:38 EP Interpretation: yes Rate: 70 Rhythm: NSR, no PVC's, no ectopy Last Vital Signs Date Time Temp Pulse Resp B/P (MAP) Pulse Ox O2 Delivery O2 Flow Rate FiO2 02/06/18 14:30 97.9 95 15 151/85 98 Room Air 97.9 Status: improved Reevaluation Impression The patient was refusing to go, so was given a be admitted for intractable vomiting, and in the warehouse distribution manager came down the patient apparently had a change of heart and decided to go home. Disposition: HOME, SELF-CARE Condition: Stable Referrals: [facility],REFERRING (PCP) Patient Instructions: Hyperglycemia, [id number] KHLOE LIM M.D Feb 06, 2018 16:39
[2018-02-06 16:52] VITALS: BP 156/94
--- NOTE | 2018-02-10 18:48 | Cardiology Report ---
APPROVED REPORT EKG Measurement Heart [id number] Normal sinus rhythm Left anterior fascicular block Cannot rule out Anterior infarct, age undetermined Abnormal ECG
== END 2018-02-06 16:52 | disposition home or self-care (01) ==
LOC: EDBD 07:38 → EMR 08:01
DX: E11.65 Type 2 diabetes mellitus with hyperglycemia (principal); R11.2 Nausea with vomiting, unspecified; I10 Essential (primary) hypertension
CPT/HCPCS: 36415; 80053; 82009; 82962; 83690; 85025; 93005; 96372; 99283; J1815

== ENCOUNTER 2018-02-20 07:06 | Emergency (ER) | payer OTHER ==
[~2018-02-20] VITALS: Ht 154.9 cm; Wt 49.9 kg
[2018-02-20 07:15] VITALS: BP 145/75
[2018-02-20] MEDS ORDERED: D5NS 1,000 ML IV SCH (07:15)
[2018-02-20] MEDS ORDERED: Glucagon 1mg Inj IM ONE (07:15)
--- NOTE | 2018-02-20 07:30 | Emergency Room Report ---
History of Present Illness General Chief Complaint: Abnormal Labs Source: Patient, EMS Present Illness HPI 42-year-old female with a history of seizures on Depakote and insulin-dependent diabetes mellitus presents with a change in mental status EMS reports they were called by family just this morning for altered level of consciousness They reported that upon arrival patient was unresponsive but awake, and her blood glucose was 20 They gave her 1 mg of IM glucagon, and her mental status improved she was awake and alert and oriented X3, and her blood glucose improved to the high 30s Upon arrival here I gave her oral glucose paste as well as apple juice with sugar in it, and she requested a sandwich, so I also gave her starburst and she was starting to eat a sandwich She reports she is not sure when her last insulin dose was then that she did not eat breakfast today, she denies chest pain shortness of breath or any pain complaints at all. Her only complaint is that she feels cold. Allergies: Coded Allergies: No Known Allergies (Verified , NONE, 12/12/17) Patient History Past Medical History: see triage record, old chart reviewed Reviewed Nursing Documentation: PMH: Agreed; PSxH: Agreed Nursing Documentation-PMH Hx Cardiac Problems: Yes Hx Hypertension: Yes Hx Pacemaker: No Hx Asthma: No Hx COPD: No Hx Diabetes: Yes Hx Cancer: No Hx Gastrointestinal Problems: Yes Hx Neurological Problems: Yes Hx Cerebrovascular Accident: No Hx Seizures: Yes Hx Vertigo: Yes Hx Dizziness: Yes Hx Headaches: Yes Hx Weakness: Yes Hx Fatigue: Yes Hx Neurologic Surgery: No Review of Systems All Other Systems: negative except mentioned in HPI Physical Exam Vital Signs Date Time Temp Pulse Resp B/P (MAP) Pulse Ox O2 Delivery O2 Flow Rate FiO2 02/20/18 07:04 98.2 66 20 145/75 99 Room Air 98.2 Sp02 EP Interpretation: reviewed, normal General Appearance: no apparent distress, alert, non-toxic Head: normocephalic Eyes: bilateral eye normal inspection, bilateral eye PERRL, bilateral eye EOMI ENT: normal ENT inspection, hearing grossly normal, normal pharynx, no angioedema, normal voice, moist mucus membranes - Slightly dry Neck: normal inspection, full range of motion, supple, supple/symm/no masses Respiratory: chest non-tender, lungs clear, normal breath sounds, chest symmetrical, palpation of chest normal Cardiovascular #1: normal peripheral pulses, regular rate, rhythm Cardiovascular #2: 2+ radial (R), 2+ radial (L) Gastrointestinal: normal inspection, non tender, soft, no mass, no guarding, no rebound Rectal: deferred Genitourinary: normal inspection, no CVA tenderness Musculoskeletal: back normal, normal range of motion, non-tender, no calf tenderness Neurologic: alert, oriented x3, responsive, resident care associate III-XII nml as tested, motor strength/tone normal, sensory intact, speech normal Psychiatric: judgement/insight normal, memory normal, mood/affect normal, no suicidal/homicidal ideation Skin: normal color, no rash, warm/dry Lymphatic: no adenopathy Medical Decision Making Diagnostic Impression: Primary Impression: Hypoglycemia ER Course Patient presented with hypoglycemia, was given 1 mg of IM glucagon prior to arrival with good effect, was given oral glucose, a sandwich, and has been normoglycemic for 4 hours with unremarkable labs. Will be dc'd and recommend f/ u with PMD for insulin regimen training. Rhythm Strip Diag. Results Rhythm Strip Time: 07:28 EP Interpretation: yes Rate: 64 Rhythm: NSR, no PVC's, no ectopy Last Vital Signs Date Time Temp Pulse Resp B/P (MAP) Pulse Ox O2 Delivery O2 Flow Rate FiO2 02/20/18 07:04 98.2 66 20 145/75 99 Room Air 98.2 Disposition: HOME, SELF-CARE Condition: Improved KHLOE LIM M.D Feb 20, 2018 07:30
[2018-02-20] MEDS ORDERED: Depakote ER 250mg tab ORAL ONE (07:40)
[2018-02-20 08:30] VITALS: BP 134/79
[2018-02-20 09:35] LABS: BASOPHILS % (AUTO) 0.7 % (0.0-2.0); EOSINOPHILS % (AUTO) 0.5 % (0.0-3.0); HEMATOCRIT 31.9 % (37.0-47.0); HEMOGLOBIN 10.4 G/DL (12.0-16.0); LYMPHOCYTES % (AUTO) 21.1 % (20.0-45.0); MEAN CORPUSCULAR VOLUME 95 FL (80-99); MONOCYTES % (AUTO) 6.2 % (1.0-10.0); NEUTROPHILS % (AUTO) 71.7 % (45.0-75.0); PLATELET COUNT 146 K/UL (150-450); RED BLOOD COUNT 3.35 M/UL (4.20-5.40); RED CELL DISTRIBUTION WIDTH 14.3 % (11.6-14.8); WHITE BLOOD COUNT 10.5 K/UL (4.8-10.8)
[2018-02-20 09:58] LABS: ANION GAP 8 mmol/L (5-15); BLOOD UREA NITROGEN 13 mg/dL (7-18); CALCIUM 8.2 MG/DL (8.5-10.1); CARBON DIOXIDE 30 MMOL/L (21-32); CHLORIDE 108 MMOL/L (98-107); CREATININE 1.9 MG/DL (0.55-1.30); POTASSIUM 3.9 MMOL/L (3.5-5.1); SODIUM 146 MMOL/L (136-145)
[2018-02-20 10:00] VITALS: BP 132/66
[2018-02-20 13:59] VITALS: BP 140/81
== END 2018-02-20 14:04 | disposition home or self-care (01) ==
LOC: EDBD 07:06 → EMR 07:52
DX: E11.649 Type 2 diabetes mellitus with hypoglycemia without coma (principal); Z79.4 Long term (current) use of insulin; G40.909 Epilepsy, unspecified, not intractable, without status epilepticus; Z79.899 Other long term (current) drug therapy; I10 Essential (primary) hypertension
CPT/HCPCS: 36415; 80048; 80164; 82962; 85025; 99282

== ENCOUNTER 2018-02-22 06:29 | Emergency (ER) | payer OTHER ==
[~2018-02-22] VITALS: Ht 165.1 cm; Wt 54.4 kg
[2018-02-22] MEDS ORDERED: UNOBMED (06:45)
[2018-02-22 06:46] VITALS: BP 113/72
[2018-02-22] MEDS ORDERED: Lidocaine 1% Plain 30 ml INJ ONE (07:00)
[2018-02-22] MEDS ORDERED: Lidocaine 1% MPF 10mg/ml 5ml ONE (07:01)
[2018-02-22 07:16] LABS: APPEARANCE,URINE CLEAR; BILIRUBIN, URINE NEGATIVE (NEGATIVE); COLOR,URINE PALE YELLOW; GLUCOSE, URINE (UA) 4+ (NEGATIVE); KETONES,URINE NEGATIVE (NEGATIVE); LEUKOCYTE ESTERASE ,URINE NEGATIVE (NEGATIVE); NITRITE,URINE NEGATIVE (NEGATIVE); PH,URINE 6 (4.5-8.0); PROTEIN,URINE 2+ (NEGATIVE); UROBILINOGEN,URINE NORMAL MG/DL (0.0-1.0)
[2018-02-22 07:19] LABS: HEMATOCRIT 29.5 % (37.0-47.0); HEMOGLOBIN 9.9 G/DL (12.0-16.0); MEAN CORPUSCULAR VOLUME 95 FL (80-99); PLATELET COUNT 95 K/UL (150-450); RED BLOOD COUNT 3.11 M/UL (4.20-5.40); RED CELL DISTRIBUTION WIDTH 14.1 % (11.6-14.8); WHITE BLOOD COUNT 4.1 K/UL (4.8-10.8)
[2018-02-22 07:26] LABS: ANION GAP 5 mmol/L (5-15); BLOOD UREA NITROGEN 8 mg/dL (7-18); CARBON DIOXIDE 34 MMOL/L (21-32); CHLORIDE 108 MMOL/L (98-107); CREATININE 1.6 MG/DL (0.55-1.30); POTASSIUM 3.4 MMOL/L (3.5-5.1); SODIUM 147 MMOL/L (136-145)
[2018-02-22 07:30] LABS: ALANINE AMINOTRANSFERASE 18 U/L (12-78); ALBUMIN 2.8 G/DL (3.4-5.0); ALBUMIN/GLOBULIN RATIO 0.5 (1.0-2.7); ALKALINE PHOSPHATASE 174 U/L (46-116); ASPARTATE AMINO TRANSFERASE 25 U/L (15-37); BILIRUBIN,TOTAL < 0.1 MG/DL (0.2-1.0)
[2018-02-22] MEDS ORDERED: D5 1/2NS 1,000 ML IV SCH (07:45)
[2018-02-22] MEDS ORDERED: Morphine Sulfate 4mg/ml Inj IVP ONE (08:00)
[2018-02-22 08:07] VITALS: BP 116/67
[2018-02-22 08:36] VITALS: BP 116/67
--- NOTE | 2018-02-22 09:16 | Emergency Room Report ---
History of Present Illness General Chief Complaint: Altered Level of Consciousness Source: Patient, Medical Record Present Illness HPI 42-year-old female presents ED for evaluation. Patient brought in by EMS. Noted to be altered at home. Family called 911. Accu-Chek in the 20s. Given glucagon in the field. Upon arrival Accu-Chek improved. Patient is well-known to [facility] has been here multiple times for poorly controlled diabetes. Patient does have extensive psychiatric history. Denies any pain. Denies any fevers or chills. Denies nausea or vomiting. No other aggravating relieving factors. No other associated symptoms Allergies: Coded Allergies: No Known Allergies (Verified , NONE, 12/12/17) Patient History Past Medical History: DM, HTN, CVA/TIA Past Surgical History: none Pertinent Family History: none Social History: Denies: smoking, alcohol use, drug use Now: No Immunizations: UTD Reviewed Nursing Documentation: PMH: Agreed; PSxH: Agreed Nursing Documentation-PMH Hx Cardiac Problems: No Hx Hypertension: Yes Hx Pacemaker: No Hx Asthma: No Hx COPD: No Hx Diabetes: Yes Hx Cancer: No Hx Gastrointestinal Problems: Yes Hx Neurological Problems: Yes Hx Cerebrovascular Accident: Yes Hx Seizures: Yes Hx Vertigo: Yes Hx Dizziness: Yes Hx Headaches: Yes Hx Weakness: Yes Hx Fatigue: Yes Hx Neurologic Surgery: No Review of Systems All Other Systems: negative except mentioned in HPI Physical Exam Vital Signs Date Time Temp Pulse Resp B/P (MAP) Pulse Ox O2 Delivery O2 Flow Rate FiO2 02/22/18 06:20 56 13 102/68 98 Room Air 02/22/18 08:07 97.8 97.8 Sp02 EP Interpretation: reviewed, normal General Appearance: no apparent distress, alert, GCS 15, non-toxic Head: normocephalic, atraumatic Eyes: bilateral eye normal inspection, bilateral eye PERRL ENT: hearing grossly normal, normal pharynx, no angioedema, normal voice Neck: full range of motion, supple/symm/no masses Respiratory: chest non-tender, lungs clear, normal breath sounds, speaking full sentences Cardiovascular #1: regular rate, rhythm, no edema Cardiovascular #2: 2+ carotid (R), 2+ carotid (L), 2+ radial (R), 2+ radial (L) , 2+ dorsalis pedis (R), 2+ dorsalis pedis (L) Gastrointestinal: normal bowel sounds, non tender, soft, non-distended, no guarding, no rebound Rectal: deferred Genitourinary: normal inspection, no CVA tenderness Musculoskeletal: back normal, gait/station normal, normal range of motion, non- tender Neurologic: alert, oriented x3, responsive, motor strength/tone normal, sensory intact, speech normal Psychiatric: judgement/insight normal, memory normal, mood/affect normal, no suicidal/homicidal ideation Reflexes: 3+ bicep (R), 3+ bicep (L), 3+ tricep (R), 3+ tricep (L), 3+ knee (R) , 3+ knee (L) Skin: normal color, no rash, warm/dry, well hydrated Lymphatic: no adenopathy Procedures Critical Care Time Critical Care Time i. I feel this is a highly complex case requiring extensive working including EKG/Rhythm strip, Xray/CT/US, Blood/urine lab work, repeat exams while in ED, and administration of strong opiates/narcotics for pain control, admission to hospital or close patient follow up. Total time: 30 min bedside evaluation and treatment excludes procedures (EKG). Reason for critical care: hypoglycemia. altered. Possible complications: hypotension, hypertension, [place], shock, arrhythmias, metabolic acidosis, end organ damage, respiratory failure. Interventions: Labs, glucagon, central line Course: Patient presenting with hypoglycemia. Accu-Chek in the 20s. Given glucagon. Patient has poor IV access. Central line placed. Accu-Chek improved after glucagon, D5 fluids, food Consultations: nursing staff, EMS, family Performed by: Dr José Tolerated well condition = serious j. because of unstable vital signs this patient had a condition that could potentially threaten life or limb. I feel this is a critical patient who required my full attention while patient was considered critical. Total Critical Care Time excluding procedures was greater than 35 minutes Central Line Central Line : Consent: Emergent Central Line Lumen: triple Maximal Sterile Barrier Tech: yes cap, yes mask, yes sterile gown, yes sterile gloves, yes large sterile sheet, yes hand hygiene, yes chlorhexidine prep Central Line Postion: femoral (R) Anesthesia: Lidocaine Complications: none Central Line Post Position: sutured, good blood return Attempts: One Patient Tolerated: Well Complications: None Medical Decision Making Diagnostic Impression: Primary Impression: Altered level of consciousness Additional Impressions: Non compliance with medical treatment CIERA (acute kidney injury) Hypoglycemia ER Course Hospital Course 42-year-old female presenting to ED with generalized weakness, low FS in field Differential diagnoses include: dehyration, sepsis, hypoglycemia Clinical course Patient placed on stretcher. On gambling monitor. After initial history and physical I ordered labs Labs-glucose 66, Cr 1.6, no leukocytosis, hb/hct stable Patient is well-known to [facility]. Always difficult IV access. Multiple attempts made. I placed right femoral central line. Given D5 fluids. Given food. Patient has multiple admissions on a monthly basis. However patient does have extensive psychiatric history with poor cognition. Patient has unreliable family and social network, and they provide her with her medications. Patient oftentimes is homeless or has temporary housing with the family. I believe patient will require housing placement possibly halfway facility Because of insurance patient will be transferred i. I feel this is a highly complex case requiring extensive working including EKG/Rhythm strip, Xray/CT/US, Blood/urine lab work, repeat exams while in ED, and administration of strong opiates/narcotics for pain control, admission to hospital or close patient follow up. diagnosis - hypoglycemia, ALOC, CIERA, noncompliance with medication Transferred in serious condition Labs Test 02/22/18 06:50 02/22/18 07:05 White Blood Count 4.1 K/UL (4.8-10.8) Red Blood Count 3.11 M/UL (4.20-5.40) Hemoglobin 9.9 G/DL (12.0-16.0) Hematocrit 29.5 % (37.0-47.0) Mean Corpuscular Volume 95 FL (80-99) Mean Corpuscular Hemoglobin 31.9 PG (27.0-31.0) Mean Corpuscular Hemoglobin Concent 33.6 G/DL (32.0-36.0) Red Cell Distribution Width 14.1 % (11.6-14.8) Platelet Count 95 K/UL (150-450) Mean Platelet Volume 10.0 FL (6.5-10.1) Neutrophils (%) (Auto) % (45.0-75.0) Lymphocytes (%) (Auto) % (20.0-45.0) Monocytes (%) (Auto) % (1.0-10.0) Eosinophils (%) (Auto) % (0.0-3.0) Basophils (%) (Auto) % (0.0-2.0) Differential Total Cells Counted 100 Neutrophils % (Manual) 49 % (45-75) Lymphocytes % (Manual) 41 % (20-45) Monocytes % (Manual) 7 % (1-10) Eosinophils % (Manual) 3 % (0-3) Basophils % (Manual) 0 % (0-2) Band Neutrophils 0 % (0-8) Platelet Estimate Decreased Platelet Morphology Clumped Platelets 1+ Hypochromasia 1+ Anisocytosis 1+ Sodium Level 147 MMOL/L (136-145) Potassium Level 3.4 MMOL/L (3.5-5.1) Chloride Level 108 MMOL/L (98-107) Carbon Dioxide Level 34 MMOL/L (21-32) Anion Gap 5 mmol/L (5-15) Blood Urea Nitrogen 8 mg/dL (7-18) Creatinine 1.6 MG/DL (0.55-1.30) Estimat Glomerular Filtration Rate 43.3 mL/min (>60) Glucose Level 66 MG/DL (74-106) Calcium Level 8.0 MG/DL (8.5-10.1) Magnesium Level 1.2 MG/DL (1.8-2.4) Total Bilirubin < 0.1 MG/DL (0.2-1.0) Aspartate Amino Transf (AST/SGOT) 25 U/L (15-37) Alanine Aminotransferase (ALT/SGPT) 18 U/L (12-78) Alkaline Phosphatase 174 U/L (46-116) Total Protein 7.9 G/DL (6.4-8.2) Albumin 2.8 G/DL (3.4-5.0) Globulin 5.1 g/dL Albumin/Globulin Ratio 0.5 (1.0-2.7) Acetone Level Negative (NEGATIVE) Urine Color Pale yellow Urine Appearance Clear Urine pH 6 (4.5-8.0) Urine Specific [place] 1.015 (1.005-1.035) Urine Protein 2+ (NEGATIVE) Urine Glucose (UA) 4+ (NEGATIVE) Urine Ketones Negative (NEGATIVE) Urine Occult Blood Negative (NEGATIVE) Urine Nitrite Negative (NEGATIVE) Urine Bilirubin Negative (NEGATIVE) Urine Urobilinogen Normal MG/DL (0.0-1.0) Urine Leukocyte Esterase Negative (NEGATIVE) Urine RBC 0-2 /HPF (0 - 2) Urine WBC 0-2 /HPF (0 - 2) Urine Squamous Epithelial Cells Occasional /LPF Urine Bacteria Occasional /HPF (NONE) Urine HCG, Qualitative Negative (NEGATIVE) Last Vital Signs Date Time Temp Pulse Resp B/P (MAP) Pulse Ox O2 Delivery O2 Flow Rate FiO2 02/22/18 08:36 97.8 52 15 116/67 100 Room Air 97.8 Status: improved Disposition: XFER SHT-TRM HOSP Condition: Serious Referrals: [facility],REFERRING (PCP) Chilango José MD Feb 22, 2018 09:16
== END 2018-02-22 08:36 | disposition short-term general hospital (02) ==
LOC: EDBD 06:29 → EMR 06:44
DX: R41.82 Altered mental status, unspecified (principal); N17.9 Acute kidney failure, unspecified; E11.649 Type 2 diabetes mellitus with hypoglycemia without coma; Z91.19 Patient's noncompliance with other medical treatment and regimen; I10 Essential (primary) hypertension; Z86.73 Personal history of transient ischemic attack (TIA), and cerebral infarction without residual deficits
CPT/HCPCS: 36415; 80053; 81003; 81025; 82009; 82962; 83735; 85007; 85025; 99291; J2270; Z7502

== ENCOUNTER 2018-03-24 15:27 | Emergency (ER) | payer OTHER ==
[~2018-03-24] VITALS: Ht 167.6 cm; Wt 54.4 kg
[2018-03-24 15:43] VITALS: BP 128/72
[2018-03-24 16:32] LABS: BASOPHILS % (AUTO) 0.8 % (0.0-2.0); EOSINOPHILS % (AUTO) 1.1 % (0.0-3.0); HEMOGLOBIN 10.8 G/DL (12.0-16.0); LYMPHOCYTES % (AUTO) 19.7 % (20.0-45.0); MEAN CORPUSCULAR VOLUME 95 FL (80-99); MONOCYTES % (AUTO) 5.2 % (1.0-10.0); NEUTROPHILS % (AUTO) 73.2 % (45.0-75.0); PLATELET COUNT 142 K/UL (150-450); RED BLOOD COUNT 3.36 M/UL (4.20-5.40); RED CELL DISTRIBUTION WIDTH 14.6 % (11.6-14.8); WHITE BLOOD COUNT 15.7 K/UL (4.8-10.8)
[2018-03-24 16:44] LABS: ANION GAP 10 mmol/L (5-15); BLOOD UREA NITROGEN 25 mg/dL (7-18); CALCIUM 8.5 MG/DL (8.5-10.1); CARBON DIOXIDE 26 MMOL/L (21-32); CHLORIDE 101 MMOL/L (98-107); CREATININE 2.3 MG/DL (0.55-1.30); POTASSIUM 3.8 MMOL/L (3.5-5.1); SODIUM 137 MMOL/L (136-145)
[2018-03-24 16:59] LABS: ALANINE AMINOTRANSFERASE 77 U/L (12-78); ALBUMIN 3.4 G/DL (3.4-5.0); ALBUMIN/GLOBULIN RATIO 0.6 (1.0-2.7); ALKALINE PHOSPHATASE 277 U/L (46-116); ASPARTATE AMINO TRANSFERASE 63 U/L (15-37); BILIRUBIN,TOTAL 0.3 MG/DL (0.2-1.0)
[2018-03-24 17:08] LABS: APPEARANCE,URINE SLIGHTLY CLOUDY; BILIRUBIN, URINE NEGATIVE (NEGATIVE); GLUCOSE, URINE (UA) 3+ (NEGATIVE); KETONES,URINE 1+ (NEGATIVE); LEUKOCYTE ESTERASE ,URINE 2+ (NEGATIVE); NITRITE,URINE NEGATIVE (NEGATIVE); PH,URINE 5 (4.5-8.0); PROTEIN,URINE 3+ (NEGATIVE); UROBILINOGEN,URINE NORMAL MG/DL (0.0-1.0)
[2018-03-24 17:09] LABS: COLOR,URINE PALE YELLOW
[2018-03-24] MEDS ORDERED: Sodium Chloride 500ML 500 ML IV ONE (17:15)
--- NOTE | 2018-03-24 17:19 | Emergency Room Report ---
History of Present Illness General Chief Complaint: Abnormal Labs Source: EMS Present Illness HPI Patient is a 42 yo female brought in EMS for low blood sugar.he patient was noted to have type 1 diabetes.The patient was given glucagon by EMS with improvement in her blood sugars.Patient denies any fevers.The she states that she's hungry.She denies any fever. Allergies: Coded Allergies: No Known Allergies (Verified , NONE, 12/12/17) Patient History Past Medical History: DM Now: No Reviewed Nursing Documentation: PMH: Agreed; PSxH: Agreed Nursing Documentation-PMH Past Medical History: No History, Except For Hx Cardiac Problems: No Hx Hypertension: Yes Hx Pacemaker: No Hx Asthma: No Hx COPD: No Hx Diabetes: Yes Hx Cancer: No Hx Gastrointestinal Problems: Yes Hx Neurological Problems: Yes Hx Cerebrovascular Accident: Yes Hx Seizures: Yes Hx Vertigo: Yes Hx Dizziness: Yes Hx Headaches: Yes Hx Weakness: Yes Hx Fatigue: Yes Hx Neurologic Surgery: No Review of Systems All Other Systems: limited - by poor historian Physical Exam Vital Signs Date Time Temp Pulse Resp B/P (MAP) Pulse Ox O2 Delivery O2 Flow Rate FiO2 03/24/18 15:22 97.9 79 18 126/82 99 Room Air 97.9 Sp02 EP Interpretation: reviewed, normal General Appearance: normal inspection, well appearing, no apparent distress, alert, GCS 15, Chronically Ill Head: atraumatic ENT: normal ENT inspection, hearing grossly normal, normal voice Neck: normal inspection, full range of motion, supple, no bony tend Respiratory: normal inspection, lungs clear, normal breath sounds, no respiratory distress, no retraction, no wheezing Cardiovascular #1: regular rate, rhythm, no edema Gastrointestinal: normal inspection, normal bowel sounds, soft, no guarding, no hernia, tenderness - right Genitourinary: no CVA tenderness Musculoskeletal: normal inspection, back normal, normal range of motion Neurologic: normal inspection, alert, oriented x3, responsive, 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 Differential diagnosis included was not limited to sepsis, medication overdose, dietary indiscretion among others. Because of complexity of patient's case laboratory testing and imaging studies were ordered. The laboratory study showed a mildly elevated white blood count consistent with stressed demargination. Patient is observed in the emergency department and was able to tolerate feeding. A repeat blood sugars were all adequate. Patient was swelling discharge home. The patient is advised to return if she began having any weakness or other concerns. Labs Test 03/24/18 16:15 03/24/18 16:41 White Blood Count 15.7 K/UL (4.8-10.8) Red Blood Count 3.36 M/UL (4.20-5.40) Hemoglobin 10.8 G/DL (12.0-16.0) Hematocrit 32.0 % (37.0-47.0) Mean Corpuscular Volume 95 FL (80-99) Mean Corpuscular Hemoglobin 32.2 PG (27.0-31.0) Mean Corpuscular Hemoglobin Concent 33.8 G/DL (32.0-36.0) Red Cell Distribution Width 14.6 % (11.6-14.8) Platelet Count 142 K/UL (150-450) Mean Platelet Volume 8.8 FL (6.5-10.1) Neutrophils (%) (Auto) 73.2 % (45.0-75.0) Lymphocytes (%) (Auto) 19.7 % (20.0-45.0) Monocytes (%) (Auto) 5.2 % (1.0-10.0) Eosinophils (%) (Auto) 1.1 % (0.0-3.0) Basophils (%) (Auto) 0.8 % (0.0-2.0) Sodium Level 137 MMOL/L (136-145) Potassium Level 3.8 MMOL/L (3.5-5.1) Chloride Level 101 MMOL/L (98-107) Carbon Dioxide Level 26 MMOL/L (21-32) Anion Gap 10 mmol/L (5-15) Blood Urea Nitrogen 25 mg/dL (7-18) Creatinine 2.3 MG/DL (0.55-1.30) Estimat Glomerular Filtration Rate 28.5 mL/min (>60) Glucose Level 111 MG/DL (74-106) Calcium Level 8.5 MG/DL (8.5-10.1) Total Bilirubin 0.3 MG/DL (0.2-1.0) Aspartate Amino Transf (AST/SGOT) 63 U/L (15-37) Alanine Aminotransferase (ALT/SGPT) 77 U/L (12-78) Alkaline Phosphatase 277 U/L (46-116) Troponin I 0.000 ng/mL (0.000-0.056) Total Protein 8.8 G/DL (6.4-8.2) Albumin 3.4 G/DL (3.4-5.0) Globulin 5.4 g/dL Albumin/Globulin Ratio 0.6 (1.0-2.7) Urine Color Pale yellow Urine Appearance Slightly cloudy Urine pH 5 (4.5-8.0) Urine Specific [place] 1.020 (1.005-1.035) Urine Protein 3+ (NEGATIVE) Urine Glucose (UA) 3+ (NEGATIVE) Urine Ketones 1+ (NEGATIVE) Urine Occult Blood 2+ (NEGATIVE) Urine Nitrite Negative (NEGATIVE) Urine Bilirubin Negative (NEGATIVE) Urine Urobilinogen Normal MG/DL (0.0-1.0) Urine Leukocyte Esterase 2+ (NEGATIVE) Urine RBC 5-10 /HPF (0 - 2) Urine WBC 2-4 /HPF (0 - 2) Urine Squamous Epithelial Cells Few /LPF (NONE/OCC) Urine Bacteria Few /HPF (NONE) Urine Yeast Moderate /HPF (NONE) Last Vital Signs Date Time Temp Pulse Resp B/P (MAP) Pulse Ox O2 Delivery O2 Flow Rate FiO2 03/24/18 15:43 80 17 128/72 100 Room Air 03/24/18 15:22 97.9 97.9 Status: improved Disposition: HOME, SELF-CARE Condition: Stable Referrals: [facility],REFERR[facility] (PCP) Dhaval King March 24, 2018 17:19
[2018-03-24 17:55] VITALS: BP 128/72
--- NOTE | 2018-03-25 15:47 | Cardiology Report ---
APPROVED REPORT EKG Measurement Heart [id number] Normal sinus rhythm Possible Left atrial enlargement Left anterior fascicular block Abnormal ECG
== END 2018-03-24 17:55 | disposition home or self-care (01) ==
LOC: EDBD 15:27 → EMR 16:58
DX: E11.649 Type 2 diabetes mellitus with hypoglycemia without coma (principal); I10 Essential (primary) hypertension; Z86.73 Personal history of transient ischemic attack (TIA), and cerebral infarction without residual deficits
CPT/HCPCS: 36415; 80053; 81003; 84484; 85025; 87086; 93005; 96374; 99284

== ENCOUNTER 2018-03-27 18:26 | Emergency (ER) | payer OTHER ==
[~2018-03-27] VITALS: Ht 162.6 cm; Wt 59.0 kg
[2018-03-27 19:30] VITALS: BP 142/98
[2018-03-27 21:30] VITALS: BP 145/100
[2018-03-27 21:31] LABS: BASOPHILS % (AUTO) 0.5 % (0.0-2.0); EOSINOPHILS % (AUTO) 1.3 % (0.0-3.0); HEMATOCRIT 30.5 % (37.0-47.0); HEMOGLOBIN 10.1 G/DL (12.0-16.0); LYMPHOCYTES % (AUTO) 26.3 % (20.0-45.0); MEAN CORPUSCULAR VOLUME 95 FL (80-99); MONOCYTES % (AUTO) 4.1 % (1.0-10.0); NEUTROPHILS % (AUTO) 67.9 % (45.0-75.0); PLATELET COUNT 130 K/UL (150-450); RED BLOOD COUNT 3.21 M/UL (4.20-5.40); RED CELL DISTRIBUTION WIDTH 13.9 % (11.6-14.8)
[2018-03-27 21:47] LABS: ALANINE AMINOTRANSFERASE 186 U/L (12-78); ALBUMIN 3.4 G/DL (3.4-5.0); ALBUMIN/GLOBULIN RATIO 0.6 (1.0-2.7); ALKALINE PHOSPHATASE 476 U/L (46-116); ANION GAP 14 mmol/L (5-15); ASPARTATE AMINO TRANSFERASE 52 U/L (15-37); BILIRUBIN,TOTAL 0.4 MG/DL (0.2-1.0); BLOOD UREA NITROGEN 17 mg/dL (7-18); CALCIUM 8.5 MG/DL (8.5-10.1); CARBON DIOXIDE 25 MMOL/L (21-32); CHLORIDE 90 MMOL/L (98-107); CREATININE 2.8 MG/DL (0.55-1.30); POTASSIUM 3.2 MMOL/L (3.5-5.1); SODIUM 129 MMOL/L (136-145)
--- NOTE | 2018-03-27 21:54 | Emergency Room Report ---
History of Present Illness General Chief Complaint: Abdominal Pain Source: Patient, Medical Record (Rickie Luz DO) Present Illness HPI Patient present from home with reports of epigastric discomfort Nausea vomiting Patient reports to drinking alcohol earlier Pain is 3 out of 10 burning sensation Denies any lower abdominal pain denies any fevers or chills Patient has diabetes type 1 Unfortunately patient has poor compliance also alcohol disease (Rickie Luz DO) Allergies: Coded Allergies: No Known Allergies (Verified , NONE, 12/12/17) Patient History Past Medical History: see triage record Pertinent Family History: none Last Menstrual Period: unknown Reviewed Nursing Documentation: PMH: Agreed; PSxH: Agreed (Rickie Luz DO) Nursing Documentation-PMH Past Medical History: No History, Except For Hx Cardiac Problems: No Hx Hypertension: Yes Hx Pacemaker: No Hx Asthma: No Hx COPD: No Hx Diabetes: Yes Hx Cancer: No Hx Gastrointestinal Problems: Yes - pancreatitis Hx Neurological Problems: Yes Hx Cerebrovascular Accident: Yes Hx Seizures: Yes Hx Vertigo: Yes Hx Dizziness: Yes Hx Headaches: Yes Hx Weakness: Yes Hx Fatigue: Yes Hx Neurologic Surgery: No (Rickie Luz DO) Review of Systems All Other Systems: negative except mentioned in HPI (Rickie Luz DO) Physical Exam Vital Signs Date Time Temp Pulse Resp B/P (MAP) Pulse Ox O2 Delivery O2 Flow Rate FiO2 03/27/18 18:30 98.3 100 18 190/110 97 Room Air 98.2 Sp02 EP Interpretation: reviewed, normal General Appearance: no apparent distress - Initially appeared somewhat nauseated Head: normocephalic, atraumatic Eyes: bilateral eye PERRL, bilateral eye EOMI ENT: hearing grossly normal, normal pharynx, TMs + canals normal, uvula midline Neck: full range of motion, supple, no meningismus, no bony tend Respiratory: lungs clear, normal breath sounds, no rhonchi, no respiratory distress, no retraction, no accessory muscle use Cardiovascular #1: normal peripheral pulses, regular rate, rhythm, no edema, no gallop, no JVD, no murmur Gastrointestinal: normal bowel sounds, non tender, soft, no mass, no organomegaly, non-distended, no guarding, no hernia, no pulsatile mass, no rebound Genitourinary: no CVA tenderness Musculoskeletal: normal inspection Neurologic: oriented x3, responsive, 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, motor strength/ tone normal, sensory intact Psychiatric: mood/affect normal Skin: normal color, no rash, warm/dry, palpation normal Lymphatic: normal inspection, no adenopathy (Rickie Luz DO) Medical Decision Making Diagnostic Impression: Primary Impression: Hyperglycemia Additional Impression: Vomiting ER Course Patient has had multiple presentations to the hospital at this time subcutaneous insulin was provided Initial Accu-Chek was reading HI At this time decreasing to 400 patient will have continued reevaluation Anti-emetic medication however at this time no signs of acidosis And the patient is stable for close outpatient follow-up Labs Test 03/27/18 20:50 White Blood Count 7.0 K/UL (4.8-10.8) Red Blood Count 3.21 M/UL (4.20-5.40) Hemoglobin 10.1 G/DL (12.0-16.0) Hematocrit 30.5 % (37.0-47.0) Mean Corpuscular Volume 95 FL (80-99) Mean Corpuscular Hemoglobin 31.4 PG (27.0-31.0) Mean Corpuscular Hemoglobin Concent 33.1 G/DL (32.0-36.0) Red Cell Distribution Width 13.9 % (11.6-14.8) Platelet Count 130 K/UL (150-450) Mean Platelet Volume 8.8 FL (6.5-10.1) Neutrophils (%) (Auto) 67.9 % (45.0-75.0) Lymphocytes (%) (Auto) 26.3 % (20.0-45.0) Monocytes (%) (Auto) 4.1 % (1.0-10.0) Eosinophils (%) (Auto) 1.3 % (0.0-3.0) Basophils (%) (Auto) 0.5 % (0.0-2.0) Sodium Level 129 MMOL/L (136-145) Potassium Level 3.2 MMOL/L (3.5-5.1) Chloride Level 90 MMOL/L (98-107) Carbon Dioxide Level 25 MMOL/L (21-32) Anion Gap 14 mmol/L (5-15) Blood Urea Nitrogen 17 mg/dL (7-18) Creatinine 2.8 MG/DL (0.55-1.30) Estimat Glomerular Filtration Rate 22.7 mL/min (>60) Glucose Level 683 MG/DL (74-106) Calcium Level 8.5 MG/DL (8.5-10.1) Total Bilirubin 0.4 MG/DL (0.2-1.0) Aspartate Amino Transf (AST/SGOT) 52 U/L (15-37) Alanine Aminotransferase (ALT/SGPT) 186 U/L (12-78) Alkaline Phosphatase 476 U/L (46-116) Total Protein 9.0 G/DL (6.4-8.2) Albumin 3.4 G/DL (3.4-5.0) Globulin 5.6 g/dL Albumin/Globulin Ratio 0.6 (1.0-2.7) (Rickie Luz DO) ER Course Patient was endorsed to me by Dr. Luz. The patient was noted to have had been given insulin. The repeat Accu-Chek showed improved blood sugar initially. The patient was noted to have low blood subsequently was given oral glucose. The patient was subsequently discharged. The patient appears medically stable at the time of discharge. Patient is advised to resume her medications at home. Labs Test 03/27/18 20:50 White Blood Count 7.0 K/UL (4.8-10.8) Red Blood Count 3.21 M/UL (4.20-5.40) Hemoglobin 10.1 G/DL (12.0-16.0) Hematocrit 30.5 % (37.0-47.0) Mean Corpuscular Volume 95 FL (80-99) Mean Corpuscular Hemoglobin 31.4 PG (27.0-31.0) Mean Corpuscular Hemoglobin Concent 33.1 G/DL (32.0-36.0) Red Cell Distribution Width 13.9 % (11.6-14.8) Platelet Count 130 K/UL (150-450) Mean Platelet Volume 8.8 FL (6.5-10.1) Neutrophils (%) (Auto) 67.9 % (45.0-75.0) Lymphocytes (%) (Auto) 26.3 % (20.0-45.0) Monocytes (%) (Auto) 4.1 % (1.0-10.0) Eosinophils (%) (Auto) 1.3 % (0.0-3.0) Basophils (%) (Auto) 0.5 % (0.0-2.0) Sodium Level 129 MMOL/L (136-145) Potassium Level 3.2 MMOL/L (3.5-5.1) Chloride Level 90 MMOL/L (98-107) Carbon Dioxide Level 25 MMOL/L (21-32) Anion Gap 14 mmol/L (5-15) Blood Urea Nitrogen 17 mg/dL (7-18) Creatinine 2.8 MG/DL (0.55-1.30) Estimat Glomerular Filtration Rate 22.7 mL/min (>60) Glucose Level 683 MG/DL (74-106) Calcium Level 8.5 MG/DL (8.5-10.1) Total Bilirubin 0.4 MG/DL (0.2-1.0) Aspartate Amino Transf (AST/SGOT) 52 U/L (15-37) Alanine Aminotransferase (ALT/SGPT) 186 U/L (12-78) Alkaline Phosphatase 476 U/L (46-116) Total Protein 9.0 G/DL (6.4-8.2) Albumin 3.4 G/DL (3.4-5.0) Globulin 5.6 g/dL Albumin/Globulin Ratio 0.6 (1.0-2.7) (Dhaval King) Last Vital Signs Date Time Temp Pulse Resp B/P (MAP) Pulse Ox O2 Delivery O2 Flow Rate FiO2 03/27/18 18:30 98.3 100 18 190/110 97 Room Air 98.2 Status: improved (Rickie Luz DO) Status: improved (Dhaval King) Disposition: HOME, SELF-CARE Condition: Improved Referrals: NON PHYSICIAN (PCP) Additional Instructions: Patient is provided with the discharge instructions notified to follow up with primary doctor in the next 2-3 days otherwise return to the er with any worsening symptoms. Please note that this report is being documented using [employer] technology. This can lead to erroneous entry secondary to incorrect interpretation by the dictating instrument. Rickie Luz DO March 27, 2018 21:54 Dhaval King March 28, 2018 06:33
[2018-03-27 22:30] VITALS: BP 142/98
[2018-03-28 00:30] VITALS: BP 144/95
[2018-03-28 02:30] VITALS: BP 142/90
[2018-03-28 04:32] VITALS: BP 116/85
[2018-03-28 05:30] VITALS: BP 116/85
== END 2018-03-28 05:30 | disposition home or self-care (01) ==
LOC: EDBD 18:26 → EMR 19:55
DX: E10.65 Type 1 diabetes mellitus with hyperglycemia (principal); R11.2 Nausea with vomiting, unspecified; I10 Essential (primary) hypertension; Z86.73 Personal history of transient ischemic attack (TIA), and cerebral infarction without residual deficits
CPT/HCPCS: 36415; 80053; 82962; 85025; 96372; 96374; 99283; J1815

== ENCOUNTER 2018-03-31 11:13 | Inpatient (IN) | payer OTHER ==
[2018-03-31] VITALS (10 sets, daily range): BP systolic 93–151; BP diastolic 64–98
[~2018-03-31] VITALS: Ht 160 cm; Wt 50.9 kg
[2018-03-31] MEDS ORDERED: Lidocaine 1% MPF 10mg/ml 5ml INJ ONE (12:30)
[2018-03-31 13:14] LABS: ANION GAP 18 mmol/L (5-15); BLOOD UREA NITROGEN 81 mg/dL (7-18); CALCIUM 8.6 MG/DL (8.5-10.1); CARBON DIOXIDE 19 MMOL/L (21-32); CHLORIDE 67 MMOL/L (98-107); CREATININE 3.9 MG/DL (0.55-1.30)
[2018-03-31 13:33] LABS: POTASSIUM 6.8 MMOL/L (3.5-5.1); SODIUM 104 MMOL/L (136-145)
[2018-03-31 13:42] LABS: HEMATOCRIT 31.3 % (37.0-47.0); HEMOGLOBIN 9.7 G/DL (12.0-16.0); MEAN CORPUSCULAR VOLUME 103 FL (80-99); PLATELET COUNT 114 K/UL (150-450); RED BLOOD COUNT 3.03 M/UL (4.20-5.40); WHITE BLOOD COUNT 9.8 K/UL (4.8-10.8)
[2018-03-31 14:22] LABS: ANION GAP 16 mmol/L (5-15); BLOOD UREA NITROGEN 77 mg/dL (7-18); CALCIUM 8.7 MG/DL (8.5-10.1); CARBON DIOXIDE 20 MMOL/L (21-32); CHLORIDE 75 MMOL/L (98-107); CREATININE 3.8 MG/DL (0.55-1.30)
[2018-03-31 14:36] LABS: SODIUM 113 MMOL/L (136-145)
--- NOTE | 2018-03-31 15:26 | Emergency Room Report ---
History of Present Illness General Chief Complaint: Abnormal Labs Present Illness Allergies: Coded Allergies: No Known Allergies (Verified , NONE, 12/12/17) Nursing Documentation-PMH Hx Cardiac Problems: No Hx Hypertension: Yes Hx Pacemaker: No Hx Asthma: No Hx COPD: No Hx Diabetes: Yes Hx Cancer: No Hx Gastrointestinal Problems: Yes - pancreatitis Hx Neurological Problems: Yes Hx Cerebrovascular Accident: Yes Hx Seizures: Yes Hx Vertigo: Yes Hx Dizziness: Yes Hx Headaches: Yes Hx Weakness: Yes Hx Fatigue: Yes Hx Neurologic Surgery: No Physical Exam Vital Signs Date Time Temp Pulse Resp B/P (MAP) Pulse Ox O2 Delivery O2 Flow Rate FiO2 03/31/18 11:09 84 20 121/66 99 Room Air Procedures Central Line Central Line : Consent: Emergent Central Line Lumen: triple Maximal Sterile Barrier Tech: yes cap, yes mask, yes sterile gown, yes sterile gloves, yes large sterile sheet, yes hand hygiene, yes chlorhexidine prep Central Line Postion: femoral (L) Anesthesia: Lidocaine cc's of anesthesia: 4 Complications: none Central Line Post Position: sutured, good blood return Attempts: One Patient Tolerated: Well Complications: None Progress Patient with DKA, admitted to ICU, right-sided femoral line was placed by Dr. Luz however patient pulled it off. I placed another central line, left femoral with ultrasound guidance, nuchal medications Medical Decision Making Diagnostic Impression: Primary Impression: Hyperglycemia Last Vital Signs Date Time Temp Pulse Resp B/P (MAP) Pulse Ox O2 Delivery O2 Flow Rate FiO2 03/31/18 15:01 87 26 126/70 100 Room Air Disposition: ADMITTED INPATIENT Condition: Improved Referrals: NON PHYSICIAN (PCP) Aldair Najera M.D. March 31, 2018 15:26
[2018-03-31] MEDS ORDERED: Insulin Rate Change 1 Each MISC PRN (16:45)
[2018-03-31] MEDS: NS w/KCl 20mEq 1,000 ML IV SCH (17:51)
[2018-03-31] MEDS: Heparin 5000 units/ml inj SUBQ SCH ×2 (17:53→22:54)
[2018-03-31 18:29] LABS: PHOSPHORUS 3.3 MG/DL (2.5-4.9)
[2018-03-31 18:37] LABS: ANION GAP 13 mmol/L (5-15); BLOOD UREA NITROGEN 72 mg/dL (7-18); CALCIUM 9.3 MG/DL (8.5-10.1); CARBON DIOXIDE 26 MMOL/L (21-32); CHLORIDE 85 MMOL/L (98-107); CREATININE 3.7 MG/DL (0.55-1.30); SODIUM 124 MMOL/L (136-145)
[2018-03-31] MEDS: LORazepam Inj 2mg/ml 1ml IV PRN (19:00)
--- NOTE | 2018-03-31 19:15 | History and Physical Report ---
DATE OF ADMISSION: 03/31/2018 REASON FOR ADMISSION: 1. Acute encephalopathy. 2. Severe hyperglycemia. 3. Diabetic ketoacidosis. HISTORY OF PRESENT ILLNESS: The patient is a 42-year-old female with a history of diabetes and multiple diabetic ketoacidosis episodes in the past with admissions. She then again presents once more in confused state along with severely elevated serum glucose of over 1600. The patient was agitated. She was aggressively hydrated and transferred to intensive care unit once again to start an insulin drip and maintain euglycemia and hydrate the patient. The patient is currently confused, disoriented, and as such history had to be obtained through bedside discussion with nurse and electronic chart review. PAST MEDICAL HISTORY: Unknown. The patient is not answering any questions. PAST SURGICAL HISTORY: Unknown. The patient is confused, disoriented, and not answering any questions. ALLERGIES: No known drug allergies. REVIEW OF SYSTEMS: Could not obtain as the patient is confused and disoriented. PHYSICAL EXAMINATION: VITAL SIGNS: Blood pressure 126/70, respiratory rate 26, 100% oxygen saturation on room air, and pulse of 87. GENERAL: The patient is awake, confused, and agitated. HEENT: Extraocular muscles intact. No lymphadenopathy noted. CARDIOVASCULAR: S1 and S2. No rubs or gallops. PULMONARY: Clear to auscultation bilaterally with mild upper rhonchi. ABDOMEN: Nondistended and nontender. EXTREMITIES: No edema noted with fair pedal pulses. LABORATORY DATA: Laboratories dated 03/31/2018 hemoglobin 9.7, platelet count 114,000, and white cell count 9.8. Serum sodium 113, potassium 5, BUN 77, creatinine 3.8, glucose 1694, and calcium 8.7. ASSESSMENT AND PLAN: 1. Hyponatremia, at this time pseudo in nature as the patient is severely hyperglycemic. We will continue to hydrate the patient and with pseudohyponatremia, the correction will take place over time. 2. Acute kidney injury. At this time, secondary to severe volume depletion from severe hyperglycemia, the patient is being aggressively hydrated. Renal ultrasound has been ordered along with urine cultures. 3. Severe hyperglycemia/diabetic ketoacidosis. At this time, Algorithm insulin drip #1 has been initiated. We will also look for any source of infection with urine and blood cultures along with a urine drug screen. 4. Acute encephalopathy most likely secondary to component of severe hyperglycemia. We will continue to hydrate the patient. At this time, we will try to decrease serum glucose in a slow careful manner due to the severe nature of the level at almost 1700. 5. At this time, Endocrinology has been consulted, Dr. Alejo, to help and assist with the management of her severe hyperglycemia and diabetic ketoacidosis as well Dr. Paz will be consulted for intensive care unit management. Electrolytes, magnesium, phosphorus, urine cultures, and blood cultures have all been ordered stat. 6. DVT prophylaxsis- with heparin subq John Ansari MD DR: HEIDE JOB#: [id number] CC: ALICIA
[2018-03-31] MEDS: Insulin Rate Change 1 Each MISC PRN ×3 (21:59→23:58)
[2018-04-01] VITALS (23 sets, daily range): BP systolic 80–165; BP diastolic 50–113
[2018-04-01 00:26] LABS: ANION GAP 12 mmol/L (5-15); BLOOD UREA NITROGEN 66 mg/dL (7-18); CALCIUM 10.3 MG/DL (8.5-10.1); CARBON DIOXIDE 27 MMOL/L (21-32); CHLORIDE 99 MMOL/L (98-107); CREATININE 3.2 MG/DL (0.55-1.30); POTASSIUM 4.4 MMOL/L (3.5-5.1); SODIUM 138 MMOL/L (136-145)
[2018-04-01] MEDS: Insulin Rate Change 1 Each MISC PRN ×8 (00:29→06:57)
[2018-04-01] MEDS: NS w/KCl 20mEq 1,000 ML IV SCH ×3 (01:04→17:28)
[2018-04-01] MEDS: Heparin 5000 units/ml inj SUBQ SCH ×3 (05:34→22:35)
[2018-04-01 06:02] LABS: ANION GAP 8 mmol/L (5-15); BLOOD UREA NITROGEN 69 mg/dL (7-18); CALCIUM 8.7 MG/DL (8.5-10.1); CARBON DIOXIDE 27 MMOL/L (21-32); CHLORIDE 104 MMOL/L (98-107); CREATININE 3.1 MG/DL (0.55-1.30); POTASSIUM 4.2 MMOL/L (3.5-5.1); SODIUM 138 MMOL/L (136-145)
[2018-04-01 06:35] LABS: BASOPHILS % (AUTO) 0.5 % (0.0-2.0); EOSINOPHILS % (AUTO) 0.4 % (0.0-3.0); HEMATOCRIT 22.9 % (37.0-47.0); HEMOGLOBIN 8.8 G/DL (12.0-16.0); LYMPHOCYTES % (AUTO) 15.9 % (20.0-45.0); MEAN CORPUSCULAR VOLUME 91 FL (80-99); MONOCYTES % (AUTO) 8.9 % (1.0-10.0); NEUTROPHILS % (AUTO) 74.3 % (45.0-75.0); PLATELET COUNT 104 K/UL (150-450); RED BLOOD COUNT 2.53 M/UL (4.20-5.40); RED CELL DISTRIBUTION WIDTH 12.4 % (11.6-14.8); WHITE BLOOD COUNT 11.1 K/UL (4.8-10.8)
[2018-04-01] MEDS: LORazepam Inj 2mg/ml 1ml IV PRN ×2 (07:32→23:15)
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
--- NOTE | 2018-04-01 10:01 | Consultation ---
DATE OF CONSULTATION: 04/01/2018 ENDOCRINOLOGY CONSULTATION CONSULTING PHYSICIAN: Bertin Alejo M.D. REFERRING PHYSICIAN: Rick White M.D. REASON FOR CONSULTATION: Diabetic ketoacidosis. HISTORY OF PRESENT ILLNESS: The patient is a 42-year-old female with history of type 1 diabetes, well known to me due to her numerous previous admissions to [facility] with multiple episodes of diabetes ketoacidosis, hence noncompliance with insulin regimen. At this time, the patient presented to the hospital with glucose of over 1100. The patient was agitated. She was admitted to be hydrated and transferred to the intensive care unit, started on insulin drip, and I was called to manage diabetes. PAST MEDICAL HISTORY: 1. Type 1 diabetes. 2. Gastroparesis. PAST SURGICAL HISTORY: None. ALLERGIES TO MEDICATIONS: None. REVIEW OF SYSTEMS: Unobtainable. LABORATORY VALUES: Sodium 104, potassium 6.8, chloride 67, bicarb 19, anion gap of 18, BUN 81, creatinine 3.9, glucose of 1054. Lactic acid 5.9, WBC 9, hemoglobin 9.7, hematocrit 31, and platelet count of 114,000. MEDICATIONS: As an outpatient, reviewed and reconciled. PHYSICAL EXAMINATION: GENERAL: Agitated. VITAL SIGNS: Blood pressure is 134/85, pulse 104, respiratory rate of 24, temperature 99.3 degrees. HEENT: Pupils are equal and reactive to light. NECK: No JVD. HEART: Tachycardia. LUNGS: Clear. ABDOMEN: Positive bowel sounds. EXTREMITIES: Positive for edema. DIAGNOSES: 1. Severe diabetic ketoacidosis. 2. Noncompliance with medication. 3. Gastrointestinal bleed. PLAN: 1. Continue IV hydration. 2. Continue insulin drip. 3. Continue for electrolytes and replete accordingly. 4. The patient may consider GI evaluation. Thank you, Dr. White, for the courtesy of this consultation. Bertin Alejo M.D. DR: MESFIN JOB#: [id number] CC:
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
--- NOTE | 2018-04-01 10:47 | Pulmonolgy Critical Care Note ---
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 - Objective Last 24 Hour Vital Signs Date Time Temp Pulse Resp B/P (MAP) Pulse Ox O2 Delivery O2 Flow Rate FiO2 04/01/18 09:00 96 20 128/96 100 Room Air 04/01/18 08:00 98.3 99 19 139/85 99 Room Air 98.3 04/01/18 07:00 100 24 131/84 96 Room Air 04/01/18 06:00 104 24 134/85 98 Room Air 04/01/18 05:00 104 24 122/74 97 Room Air 04/01/18 04:00 99.3 103 24 141/80 97 Room Air 99.3 04/01/18 04:00 103 04/01/18 03:00 109 24 131/77 97 Room Air 04/01/18 02:00 108 24 132/91 97 Room Air 04/01/18 01:00 109 24 113/78 97 Room Air 04/01/18 00:00 99.3 111 25 113/78 98 Room Air 99.3 03/31/18 23:00 114 29 115/74 98 Room Air 03/31/18 22:00 97.9 115 25 93/64 98 Room Air 97.9 03/31/18 21:00 103 25 105/70 98 Room Air 03/31/18 20:00 93 21 105/72 100 Room Air 03/31/18 20:00 94 03/31/18 19:00 88 12 122/83 99 Room Air 03/31/18 18:00 83 15 115/82 100 Room Air 03/31/18 17:00 82 16 151/87 100 Room Air 03/31/18 16:00 93.5 85 17 123/98 100 Room Air 93.5 03/31/18 15:09 84 03/31/18 15:01 87 26 126/70 100 Room Air 03/31/18 15:00 84 12 111/74 100 Room Air 03/31/18 11:15 20 121/66 99 Room Air 03/31/18 11:09 84 20 121/66 99 Room Air Status: awake Condition: critical HEENT: atraumatic Neck: full ROM Lungs: rhonchi Heart: HR/BP stable, HR/BP unstable Abdomen: soft, active bowel sounds Extremities: no C/C/E, edema Micro: Microbiology Date/Time Source Procedure Growth Status 03/31/18 17:00 Indwelling Cath Urine Culture - Preliminary NO GROWTH Resulted Accucheck: 105 Critical Care - Subjective ICU Day: 2 Condition: critical Fluids: NS 125 I&O: Intake and Output 03/31/18 04/01/18 19:00 07:00 Intake Total 1137 ml 1445.7 ml Output Total 960 ml 490 ml Balance 177 ml 955.7 ml Intake Oral 0 ml 0 ml IV Total 1137 ml 1445.7 ml Output Urine Total 960 ml 490 ml # Bowel Movements 1 CXR: RLL infiltrate Labs: Laboratory Tests Test 03/31/18 11:50 03/31/18 13:33 03/31/18 13:55 03/31/18 17:00 Arterial Blood pH 7.184 (7.350-7.450) Arterial Blood Partial Pressure CO2 38.9 mmHg (35.0-45.0) Arterial Blood Partial Pressure O2 92.7 mmHg (75.0-100.0) Arterial Blood HCO3 14.3 mmol/L (22.0-26.0) L Arterial Blood Oxygen Saturation 95.4 % (92.0-98.0) Arterial Blood Base Excess -13.1 Michael Test Positive White Blood Count 9.8 K/UL (4.8-10.8) Red Blood Count 3.03 M/UL (4.20-5.40) L Hemoglobin 9.7 G/DL (12.0-16.0) L Hematocrit 31.3 % (37.0-47.0) L Mean Corpuscular Volume 103 FL (80-99) H Mean Corpuscular Hemoglobin 32.1 PG (27.0-31.0) H Mean Corpuscular Hemoglobin Concent 31.0 G/DL (32.0-36.0) L Red Cell Distribution Width 14.0 % (11.6-14.8) Platelet Count 114 K/UL (150-450) L Mean Platelet Volume 8.9 FL (6.5-10.1) Neutrophils (%) (Auto) % (45.0-75.0) Lymphocytes (%) (Auto) % (20.0-45.0) Monocytes (%) (Auto) % (1.0-10.0) Eosinophils (%) (Auto) % (0.0-3.0) Basophils (%) (Auto) % (0.0-2.0) Differential Total Cells Counted 100 Neutrophils % (Manual) 89 % (45-75) H Lymphocytes % (Manual) 8 % (20-45) L Monocytes % (Manual) 1 % (1-10) Eosinophils % (Manual) 0 % (0-3) Basophils % (Manual) 0 % (0-2) Band Neutrophils 2 % (0-8) Platelet Estimate Decreased L Platelet Morphology Normal Hypochromasia 1+ Macrocytosis 1+ Stomatocytes Occasional Sodium Level 113 MMOL/L (136-145) *L 124 MMOL/L (136-145) #L Potassium Level 5.0 MMOL/L (3.5-5.1) 4.0 MMOL/L (3.5-5.1) Chloride Level 75 MMOL/L (98-107) L 85 MMOL/L (98-107) L Carbon Dioxide Level 20 MMOL/L (21-32) L 26 MMOL/L (21-32) Anion Gap 16 mmol/L (5-15) H 13 mmol/L (5-15) Blood Urea Nitrogen 77 mg/dL (7-18) H 72 mg/dL (7-18) H Creatinine 3.8 MG/DL (0.55-1.30) H 3.7 MG/DL (0.55-1.30) H Estimat Glomerular Filtration Rate 15.9 mL/min (>60) 16.5 mL/min (>60) Glucose Level 1694 MG/DL (74-106) #*H 1008 MG/DL (74-106) #*H Calcium Level 8.7 MG/DL (8.5-10.1) 9.3 MG/DL (8.5-10.1) Hemoglobin A1c 11.8 % (4.3-6.0) H Lactic Acid Level 5.90 mmol/L (0.66-2.22) H Phosphorus Level 3.3 MG/DL (2.5-4.9) Magnesium Level 2.2 MG/DL (1.8-2.4) Urine Opiates Screen Negative (NEGATIVE) Urine Barbiturates Screen Negative (NEGATIVE) Phencyclidine (PCP) Screen Negative (NEGATIVE) Urine Amphetamines Screen Negative (NEGATIVE) Urine Benzodiazepines Screen Negative (NEGATIVE) Urine Cocaine Screen Negative (NEGATIVE) Urine Marijuana (THC) Screen Negative (NEGATIVE) Acetone, Qualitative Ps Acetone Level Positive-small (NEGATIVE) Test 03/31/18 23:30 04/01/18 04:00 04/01/18 04:40 Sodium Level 138 MMOL/L (136-145) # 138 MMOL/L (136-145) Potassium Level 4.4 MMOL/L (3.5-5.1) 4.2 MMOL/L (3.5-5.1) Chloride Level 99 MMOL/L (98-107) 104 MMOL/L (98-107) Carbon Dioxide Level 27 MMOL/L (21-32) 27 MMOL/L (21-32) Anion Gap 12 mmol/L (5-15) 8 mmol/L (5-15) Blood Urea Nitrogen 66 mg/dL (7-18) H 69 mg/dL (7-18) H Creatinine 3.2 MG/DL (0.55-1.30) H 3.1 MG/DL (0.55-1.30) H Estimat Glomerular Filtration Rate 19.4 mL/min (>60) 20.1 mL/min (>60) Glucose Level 98 MG/DL (74-106) # 105 MG/DL (74-106) Lactic Acid Level 4.30 mmol/L (0.66-2.22) H Calcium Level 10.3 MG/DL (8.5-10.1) H 8.7 MG/DL (8.5-10.1) White Blood Count 11.1 K/UL (4.8-10.8) H Red Blood Count 2.53 M/UL (4.20-5.40) L Hemoglobin 8.8 G/DL (12.0-16.0) L Hematocrit 22.9 % (37.0-47.0) L Mean Corpuscular Volume 91 FL (80-99) # Mean Corpuscular Hemoglobin 34.7 PG (27.0-31.0) H Mean Corpuscular Hemoglobin Concent 38.4 G/DL (32.0-36.0) H Red Cell Distribution Width 12.4 % (11.6-14.8) Platelet Count 104 K/UL (150-450) L Mean Platelet Volume 9.3 FL (6.5-10.1) Neutrophils (%) (Auto) 74.3 % (45.0-75.0) Lymphocytes (%) (Auto) 15.9 % (20.0-45.0) L Monocytes (%) (Auto) 8.9 % (1.0-10.0) Eosinophils (%) (Auto) 0.4 % (0.0-3.0) Basophils (%) (Auto) 0.5 % (0.0-2.0) Prothrombin Time 10.8 SEC (9.30-11.50) Prothromb Time International Ratio 1.0 (0.9-1.1) Activated Partial Thromboplast Time 28 SEC (23-33) Fred Paz MD April 01, 2018 10:47
--- NOTE | 2018-04-01 11:22 | GI Initial Consult Note ---
History of Present Illness General Date patient seen: April 01, 2018 Time patient seen: 11:07 Reason for Hospitalization: Abnormal Labs Referring physician: ANDRE SEBASTIAN Reason for Consultation: ANEMIA Present Illness HPI The patient is a 42-year-old female with a history of diabetes and multiple diabetic ketoacidosis episodes in the past with admissions. She then again presents once more in confused state along with severely elevated serum glucose of over 1600. The patient was agitated. She was aggressively hydrated and transferred to intensive care unit once again to start an insulin drip and maintain euglycemia and hydrate the patient. The patient is currently confused, disoriented, and as such history had to be obtained through bedside discussion with nurse and electronic chart review. GI consulted for anemia. NATHAN stark, poor historian. Patient had recent EGD performed here at [place] in January 2017 which showed esophagitis. She presents today with reports today with hyperglycemia, acute encephalopathy. Labs reviewed show mild leukocytosis and anemia. Home Meds Active Scripts Fluconazole (FLUCONAZOLE) 100 Mg Tablet, 200 MG ORAL DAILY, #3 TAB 0 Refills Prov:Cailin Carpenter NP (Vanchtein) 11/29/17 Ondansetron* (ZOFRAN*) 4 Mg Tablet, 4 MG ORAL Q6H PRN, #20 TAB Prov:Jayden LewisCailin hutton NP 11/29/17 Divalproex Sodium (DIVALPROEX SODIUM ER) 500 Mg Tab.er.24h, 1500 MG ORAL QHS, # 30 TAB Prov:Cailin Carpenter NP (Vanchtein) 11/29/17 Insulin Detemir (LEVEMIR FLEXPEN) 100 Unit/1 Ml Insuln.pen, 10 UNITS SUBQ Q12HR , #1 SYR Prov:Cailin Carpenter NP (Vanchtein) 11/29/17 Clonazepam (Clonazepam) 1 Mg Tablet, 1 MG ORAL DAILY, #15 TAB Prov:Cailin Carpenter NP (Vanchtein) 11/29/17 Aspirin* (ASPIRIN*) 81 Mg Tab.chew, 81 MG ORAL DAILY, #30 TAB Prov:Cailin Carpenter NP (Vanchtein) 11/29/17 Reported Medications Unable to Obtain Medications (UNABLE TO OBTAIN MEDS) 1 Ea Ea 02/22/18 Insulin Detemir (LEVEMIR FLEXPEN) 100 Unit/1 Ml Insuln.pen, 0 SUBQ, #300 UNITS 0 Refills 02/06/18 Insulin Aspart* (NOVOLOG*) 100 Unit/1 Ml Insuln.pen, 0 SUBQ, #1 EA 0 Refills 02/06/18 Clonidine Hcl* (CATAPRES*) 0.1 Mg Tablet, 0.1 MG ORAL EVERY 6 HOURS, TAB 02/06/18 Amlodipine Besylate (Norvasc) 5 Mg Tablet, 5 MG ORAL DAILY, TAB 02/06/18 Clonidine Hcl* (CATAPRES*) 0.1 Mg Tablet, 0.1 MG ORAL EVERY 6 HOURS, TAB 01/26/18 Hydroxyzine Pamoate (HYDROXYZINE PAMOATE) 25 Mg Capsule, 25 MG PO, CAP 01/26/18 Divalproex Sodium* (DEPAKOTE ER*) 250 Mg Tab.er.24h, 250 MG ORAL EVERY 12 HOURS , TAB 01/26/18 Unable to Obtain Medications (UNABLE TO OBTAIN MEDS) 1 Ea Ea 12/22/17 Amlodipine Besylate (Norvasc) 5 Mg Tablet, 5 MG ORAL Q12HR, TAB 04/18/17 Insulin Aspart* (NOVOLOG*) 100 Unit/1 Ml Insuln.pen, 0 SUBQ BEFORE MEALS AND HS , #1 EA 0 Refills 04/18/17 Calcium Carbonate (CALCIUM CARBONATE) 500 Mg Tablet, 500 MG PO DAILY, TAB 04/18/17 Ranitidine Hcl* (ZANTAC*) 150 Mg Tablet, 150 MG ORAL TWICE A DAY, TAB 02/13/17 Med list reviewed/reconciled: Yes Allergies: Coded Allergies: No Known Allergies (Verified , NONE, 12/12/17) Patient History History Provided By: Patient, Medical Record PMH Narrative Diabetes, hypertension, encephalopathy, CIERA, and acute renal failure. Hx Cocaine use Social History: Reports: drug use Review of Systems All Other Systems: negative except mentioned in HPI Physical Exam Vital Signs Date Time Temp Pulse Resp B/P (MAP) Pulse Ox O2 Delivery O2 Flow Rate FiO2 03/31/18 11:09 84 20 121/66 99 Room Air 03/31/18 16:00 93.5 93.5 Sp02 EP Interpretation: reviewed, normal Labs Laboratory Tests Test 03/31/18 11:50 03/31/18 13:33 03/31/18 13:55 03/31/18 17:00 Arterial Blood pH 7.184 (7.350-7.450) Arterial Blood Partial Pressure CO2 38.9 mmHg (35.0-45.0) Arterial Blood Partial Pressure O2 92.7 mmHg (75.0-100.0) Arterial Blood HCO3 14.3 mmol/L (22.0-26.0) L Arterial Blood Oxygen Saturation 95.4 % (92.0-98.0) Arterial Blood Base Excess -13.1 Michael Test Positive White Blood Count 9.8 K/UL (4.8-10.8) Red Blood Count 3.03 M/UL (4.20-5.40) L Hemoglobin 9.7 G/DL (12.0-16.0) L Hematocrit 31.3 % (37.0-47.0) L Mean Corpuscular Volume 103 FL (80-99) H Mean Corpuscular Hemoglobin 32.1 PG (27.0-31.0) H Mean Corpuscular Hemoglobin Concent 31.0 G/DL (32.0-36.0) L Red Cell Distribution Width 14.0 % (11.6-14.8) Platelet Count 114 K/UL (150-450) L Mean Platelet Volume 8.9 FL (6.5-10.1) Neutrophils (%) (Auto) % (45.0-75.0) Lymphocytes (%) (Auto) % (20.0-45.0) Monocytes (%) (Auto) % (1.0-10.0) Eosinophils (%) (Auto) % (0.0-3.0) Basophils (%) (Auto) % (0.0-2.0) Differential Total Cells Counted 100 Neutrophils % (Manual) 89 % (45-75) H Lymphocytes % (Manual) 8 % (20-45) L Monocytes % (Manual) 1 % (1-10) Eosinophils % (Manual) 0 % (0-3) Basophils % (Manual) 0 % (0-2) Band Neutrophils 2 % (0-8) Platelet Estimate Decreased L Platelet Morphology Normal Hypochromasia 1+ Macrocytosis 1+ Stomatocytes Occasional Sodium Level 113 MMOL/L (136-145) *L 124 MMOL/L (136-145) #L Potassium Level 5.0 MMOL/L (3.5-5.1) 4.0 MMOL/L (3.5-5.1) Chloride Level 75 MMOL/L (98-107) L 85 MMOL/L (98-107) L Carbon Dioxide Level 20 MMOL/L (21-32) L 26 MMOL/L (21-32) Anion Gap 16 mmol/L (5-15) H 13 mmol/L (5-15) Blood Urea Nitrogen 77 mg/dL (7-18) H 72 mg/dL (7-18) H Creatinine 3.8 MG/DL (0.55-1.30) H 3.7 MG/DL (0.55-1.30) H Estimat Glomerular Filtration Rate 15.9 mL/min (>60) 16.5 mL/min (>60) Glucose Level 1694 MG/DL (74-106) #*H 1008 MG/DL (74-106) #*H Calcium Level 8.7 MG/DL (8.5-10.1) 9.3 MG/DL (8.5-10.1) Hemoglobin A1c 11.8 % (4.3-6.0) H Lactic Acid Level 5.90 mmol/L (0.66-2.22) H Phosphorus Level 3.3 MG/DL (2.5-4.9) Magnesium Level 2.2 MG/DL (1.8-2.4) Urine Opiates Screen Negative (NEGATIVE) Urine Barbiturates Screen Negative (NEGATIVE) Phencyclidine (PCP) Screen Negative (NEGATIVE) Urine Amphetamines Screen Negative (NEGATIVE) Urine Benzodiazepines Screen Negative (NEGATIVE) Urine Cocaine Screen Negative (NEGATIVE) Urine Marijuana (THC) Screen Negative (NEGATIVE) Acetone, Qualitative Ps Acetone Level Positive-small (NEGATIVE) Test 03/31/18 23:30 04/01/18 04:00 04/01/18 04:40 Sodium Level 138 MMOL/L (136-145) # 138 MMOL/L (136-145) Potassium Level 4.4 MMOL/L (3.5-5.1) 4.2 MMOL/L (3.5-5.1) Chloride Level 99 MMOL/L (98-107) 104 MMOL/L (98-107) Carbon Dioxide Level 27 MMOL/L (21-32) 27 MMOL/L (21-32) Anion Gap 12 mmol/L (5-15) 8 mmol/L (5-15) Blood Urea Nitrogen 66 mg/dL (7-18) H 69 mg/dL (7-18) H Creatinine 3.2 MG/DL (0.55-1.30) H 3.1 MG/DL (0.55-1.30) H Estimat Glomerular Filtration Rate 19.4 mL/min (>60) 20.1 mL/min (>60) Glucose Level 98 MG/DL (74-106) # 105 MG/DL (74-106) Lactic Acid Level 4.30 mmol/L (0.66-2.22) H Calcium Level 10.3 MG/DL (8.5-10.1) H 8.7 MG/DL (8.5-10.1) White Blood Count 11.1 K/UL (4.8-10.8) H Red Blood Count 2.53 M/UL (4.20-5.40) L Hemoglobin 8.8 G/DL (12.0-16.0) L Hematocrit 22.9 % (37.0-47.0) L Mean Corpuscular Volume 91 FL (80-99) # Mean Corpuscular Hemoglobin 34.7 PG (27.0-31.0) H Mean Corpuscular Hemoglobin Concent 38.4 G/DL (32.0-36.0) H Red Cell Distribution Width 12.4 % (11.6-14.8) Platelet Count 104 K/UL (150-450) L Mean Platelet Volume 9.3 FL (6.5-10.1) Neutrophils (%) (Auto) 74.3 % (45.0-75.0) Lymphocytes (%) (Auto) 15.9 % (20.0-45.0) L Monocytes (%) (Auto) 8.9 % (1.0-10.0) Eosinophils (%) (Auto) 0.4 % (0.0-3.0) Basophils (%) (Auto) 0.5 % (0.0-2.0) Prothrombin Time 10.8 SEC (9.30-11.50) Prothromb Time International Ratio 1.0 (0.9-1.1) Activated Partial Thromboplast Time 28 SEC (23-33) General Appearance: well appearing, no apparent distress, alert Head: normocephalic EENT: PERRL/EOMI, normal ENT inspection Neck: supple Respiratory: normal breath sounds, no respiratory distress Cardiovascular: normal rate Gastrointestinal: normal inspection, non tender, soft, normal bowel sounds, non -distended Rectal: deferred Genitourinary: no CVA tenderness Musculoskeletal: normal inspection, back normal Neurologic: alert, responsive Skin: normal inspection, normal color, no rash, warm/dry, palpation normal, well hydrated Lymphatic: normal inspection, no adenopathy Current Medications Current Medications Medications (Trade) Dose Ordered Sig/Mateo Route PRN Reason Start Time Stop Time Status Last Admin Dose Admin Chlorhexidine Gluconate (Mara-Hex 2%) 1 applic DAILY@2000 TOPIC 04/01/18 20:00 05/01/18 19:59 Dextrose (Dextrose 50%) 25 ml PRN PRN IV HYPOGLYCEMIA 03/31/18 20:00 04/30/18 19:59 Dextrose (Dextrose 50%) 50 ml PRN PRN IV HYPOGLYCEMIA 03/31/18 20:00 04/30/18 19:59 04/01/18 00:00 Famotidine (Pepcid) 40 mg DAILY ORAL 04/01/18 09:00 05/01/18 08:59 Heparin Sodium (Porcine) (Heparin 5000 units/ml) 5,000 units EVERY 8 HOURS SUBQ 03/31/18 17:00 04/30/18 16:59 03/31/18 22:54 Insulin Human Regular (NovoLIN R) 5 units PRN PRN IV BS 200-299 03/31/18 16:45 04/30/18 16:44 03/31/18 22:04 Insulin Human Regular (NovoLIN R) 10 units PRN PRN IV BS=>300 03/31/18 16:45 04/30/18 16:44 03/31/18 21:27 Insulin Human Regular 100 units/ Sodium Chloride 100 ml @ 0 mls/hr Q24H IV 03/31/18 20:01 04/30/18 20:00 04/01/18 00:37 Lorazepam (Ativan 2mg/ml 1ml) 1 mg Q4H PRN IV For Anxiety 03/31/18 17:00 04/07/18 16:59 04/01/18 07:32 Miscellaneous Medication (Insulin Rate Change) 1 ea PRN PRN MISC Hyperglycemia 03/31/18 20:00 04/30/18 19:59 04/01/18 06:57 Piperacillin Sod/ Tazobactam Sod 3.375 gm/Sodium Chloride 110 ml @ 220 mls/hr EVERY 8 HOURS IVPB 04/01/18 14:00 04/08/18 13:59 UNV Sodium Chloride 1,000 ml @ 125 mls/hr Q8H IV 03/31/18 17:34 04/30/18 17:33 04/01/18 09:30 GI: Plan Problems: (1) Gastroparesis due to DM (2) Intractable nausea and vomiting (3) Abdominal pain (4) Anemia (5) Diabetes (6) Severe malnutrition Plan defer GI procedures anemia work up OB stool r/o GI bleed monitor H&H, prn transfusions zofran prn, reglan for persistent vomiting vs GI motility adv to ADA diet DM mgmt bowel regime ppi daily abx fu labs Discussed with Dr. Vickers. Thank you for this patient referral, we will follow. The patient was seen and examined at bedside and all new and available data was reviewed in the patients chart. I agree with the above findings, impression and plan. (Patient seen earlier today. Signature stamp does not reflect patient encounter time.). - MD Maryse Everett Anh Rigoberto Maldonado April 01, 2018 11:22
[2018-04-01] MEDS ORDERED: Insulin Rate Change 1 Each MISC PRN ×2 (12:15→21:15)
[2018-04-01] MEDS: Piperacillin/Tazobactam 3.375 GM in NS 110 ML IVPB SCH (12:55)
--- NOTE | 2018-04-01 14:22 | Infectious Diseases Prog Note ---
Assessment/Plan Problems: (1) Aspiration pneumonia Assessment & Plan: with productive cough , will send sputum culture and continue zosyn empiric coverage, monitor CXR (2) Leukocytosis Assessment & Plan: due to the above, rule out sepsis , await blood culture, continue zosyn empirically (3) DKA (diabetic ketoacidoses) Assessment & Plan: due to noncompliance , continue insulin drip , monitor blood glucose to keep between 80-120 (4) Altered level of consciousness Assessment & Plan: due to the above, continue neurocheck , avoid sedatives (5) Psychiatric disorder Assessment & Plan: psych meds on hold for now, follow up with psychiatrist (6) ARF (acute renal failure) Assessment & Plan: due to the above , continue IVF for hydration , avoid nephrotoxics , monitor UOP, nephrology is following Subjective Allergies: Coded Allergies: No Known Allergies (Verified , NONE, 12/12/17) Objective Vital Signs Last 24 Hour Vital Signs Date Time Temp Pulse Resp B/P (MAP) Pulse Ox O2 Delivery O2 Flow Rate FiO2 04/01/18 13:00 86 21 102/71 100 Room Air 04/01/18 12:00 93 04/01/18 12:00 98.9 95 22 136/88 100 Room Air 98.9 04/01/18 11:00 91 22 118/75 100 Room Air 04/01/18 09:00 96 20 128/96 100 Room Air 04/01/18 08:00 98.3 99 19 139/85 99 Room Air 98.3 04/01/18 07:41 97 04/01/18 07:00 100 24 131/84 96 Room Air 04/01/18 06:00 104 24 134/85 98 Room Air 04/01/18 05:00 104 24 122/74 97 Room Air 04/01/18 04:00 99.3 103 24 141/80 97 Room Air 99.3 04/01/18 04:00 103 04/01/18 03:00 109 24 131/77 97 Room Air 04/01/18 02:00 108 24 132/91 97 Room Air 04/01/18 01:00 109 24 113/78 97 Room Air 04/01/18 00:00 99.3 111 25 113/78 98 Room Air 99.3 03/31/18 23:00 114 29 115/74 98 Room Air 03/31/18 22:00 97.9 115 25 93/64 98 Room Air 97.9 03/31/18 21:00 103 25 105/70 98 Room Air 03/31/18 20:00 93 21 105/72 100 Room Air 03/31/18 20:00 94 03/31/18 19:00 88 12 122/83 99 Room Air 03/31/18 18:00 83 15 115/82 100 Room Air 03/31/18 17:00 82 16 151/87 100 Room Air 03/31/18 16:00 93.5 85 17 123/98 100 Room Air 93.5 03/31/18 15:09 84 03/31/18 15:01 87 26 126/70 100 Room Air 03/31/18 15:00 84 12 111/74 100 Room Air Height (Feet): 5 Height (Inches): 3.00 Weight (Pounds): 104 Microbiology Date/Time Source Procedure Growth Status 03/31/18 17:00 Indwelling Cath Urine Culture - Preliminary NO GROWTH Resulted Laboratory Tests Test 03/31/18 17:00 03/31/18 23:30 04/01/18 04:00 04/01/18 04:40 Sodium Level 124 MMOL/L (136-145) #L 138 MMOL/L (136-145) # 138 MMOL/L (136-145) Potassium Level 4.0 MMOL/L (3.5-5.1) 4.4 MMOL/L (3.5-5.1) 4.2 MMOL/L (3.5-5.1) Chloride Level 85 MMOL/L (98-107) L 99 MMOL/L (98-107) 104 MMOL/L (98-107) Carbon Dioxide Level 26 MMOL/L (21-32) 27 MMOL/L (21-32) 27 MMOL/L (21-32) Anion Gap 13 mmol/L (5-15) 12 mmol/L (5-15) 8 mmol/L (5-15) Blood Urea Nitrogen 72 mg/dL (7-18) H 66 mg/dL (7-18) H 69 mg/dL (7-18) H Creatinine 3.7 MG/DL (0.55-1.30) H 3.2 MG/DL (0.55-1.30) H 3.1 MG/DL (0.55-1.30) H Estimat Glomerular Filtration Rate 16.5 mL/min (>60) 19.4 mL/min (>60) 20.1 mL/min (>60) Glucose Level 1008 MG/DL (74-106) #*H 98 MG/DL (74-106) # 105 MG/DL (74-106) Hemoglobin A1c 11.8 % (4.3-6.0) H Lactic Acid Level 5.90 mmol/L (0.66-2.22) H 4.30 mmol/L (0.66-2.22) H Calcium Level 9.3 MG/DL (8.5-10.1) 10.3 MG/DL (8.5-10.1) H 8.7 MG/DL (8.5-10.1) Phosphorus Level 3.3 MG/DL (2.5-4.9) Magnesium Level 2.2 MG/DL (1.8-2.4) Urine Opiates Screen Negative (NEGATIVE) Urine Barbiturates Screen Negative (NEGATIVE) Phencyclidine (PCP) Screen Negative (NEGATIVE) Urine Amphetamines Screen Negative (NEGATIVE) Urine Benzodiazepines Screen Negative (NEGATIVE) Urine Cocaine Screen Negative (NEGATIVE) Urine Marijuana (THC) Screen Negative (NEGATIVE) Acetone, Qualitative Ps Acetone Level Positive-small (NEGATIVE) White Blood Count 11.1 K/UL (4.8-10.8) H Red Blood Count 2.53 M/UL (4.20-5.40) L Hemoglobin 8.8 G/DL (12.0-16.0) L Hematocrit 22.9 % (37.0-47.0) L Mean Corpuscular Volume 91 FL (80-99) # Mean Corpuscular Hemoglobin 34.7 PG (27.0-31.0) H Mean Corpuscular Hemoglobin Concent 38.4 G/DL (32.0-36.0) H Red Cell Distribution Width 12.4 % (11.6-14.8) Platelet Count 104 K/UL (150-450) L Mean Platelet Volume 9.3 FL (6.5-10.1) Neutrophils (%) (Auto) 74.3 % (45.0-75.0) Lymphocytes (%) (Auto) 15.9 % (20.0-45.0) L Monocytes (%) (Auto) 8.9 % (1.0-10.0) Eosinophils (%) (Auto) 0.4 % (0.0-3.0) Basophils (%) (Auto) 0.5 % (0.0-2.0) Prothrombin Time 10.8 SEC (9.30-11.50) Prothromb Time International Ratio 1.0 (0.9-1.1) Activated Partial Thromboplast Time 28 SEC (23-33) Current Medications Medications (Trade) Dose Ordered Sig/Mateo Route PRN Reason Start Time Stop Time Status Last Admin Dose Admin Chlorhexidine Gluconate (Mara-Hex 2%) 1 applic DAILY@2000 TOPIC 04/01/18 20:00 05/01/18 19:59 Dextrose (Dextrose 50%) 25 ml PRN PRN IV HYPOGLYCEMIA 04/01/18 12:15 05/01/18 12:14 Dextrose (Dextrose 50%) 50 ml PRN PRN IV HYPOGLYCEMIA 04/01/18 12:15 05/01/18 12:14 Famotidine (Pepcid) 40 mg DAILY ORAL 04/01/18 09:00 05/01/18 08:59 Heparin Sodium (Porcine) (Heparin 5000 units/ml) 5,000 units EVERY 8 HOURS SUBQ 03/31/18 17:00 04/30/18 16:59 03/31/18 22:54 Insulin Human Regular (NovoLIN R) 5 units PRN PRN IV BS 200-299 04/01/18 12:15 05/01/18 12:14 Insulin Human Regular (NovoLIN R) 10 units PRN PRN IV BS=>300 04/01/18 12:15 05/01/18 12:14 Insulin Human Regular 100 units/ Sodium Chloride 101 ml @ 0 mls/hr Q24H IV 04/01/18 12:15 05/01/18 12:14 04/01/18 12:55 Lorazepam (Ativan 2mg/ml 1ml) 1 mg Q4H PRN IV For Anxiety 03/31/18 17:00 04/07/18 16:59 04/01/18 07:32 Miscellaneous Medication (Insulin Rate Change) 1 ea PRN PRN MISC Hyperglycemia 04/01/18 12:15 05/01/18 12:14 Piperacillin Sod/ Tazobactam Sod 3.375 gm/Sodium Chloride 110 ml @ 27 mls/hr Q12H IVPB 04/01/18 13:00 04/08/18 12:59 04/01/18 12:55 Sodium Chloride 1,000 ml @ 125 mls/hr Q8H IV 03/31/18 17:34 04/30/18 17:33 04/01/18 09:30 Choco Lozada M.D. April 01, 2018 14:22
--- NOTE | 2018-04-01 16:14 | Diagnostic Imaging Report ---
Indication: Normal kidney function Technique: US Renal Comp Comparison: 11/25/2017 Findings: Right kidney measures 10.6 cm in length. Left kidney measures 10.9 cm in length. Both kidneys demonstrate normal density. No hydronephrosis or sonographically appreciable renal stones bilaterally. Normal color flow noted to bilateral kidneys. Love catheter decompresses the bladder, limiting its evaluation. Imaged portions of the liver and IVC unremarkable in appearance. IMPRESSION: No evidence of hydronephrosis or sonographically appreciable renal stone. Renal echogenicity within normal limits. Love catheter decompresses the bladder, limiting its evaluation.
--- NOTE | 2018-04-01 16:27 | Cardiology Report ---
APPROVED REPORT EKG Measurement Heart [id number] Normal sinus rhythm Possible Left atrial enlargement Right superior axis deviation Nonspecific ST abnormality Abnormal QRS-T angle, consider primary T wave abnormality Abnormal ECG
[2018-04-01] MEDS ORDERED: Haloperidol 5mg/ml Inj IM PRN (16:30)
--- NOTE | 2018-04-01 16:30 | Consultation ---
History of Present Illness General Date patient seen: April 01, 2018 Chief Complaint: Abnormal Labs Referring physician: ANDRE SEBASTIAN Reason for Consultation: ANEMIA Present Illness HPI 42-year-old female with a history of diabetes and multiple diabetic ketoacidosis episodes in the past with admissions. the pt is confused and gets agitated easily. the pt has hx of noncompliance Allergies: Coded Allergies: No Known Allergies (Verified , NONE, 12/12/17) Medication History Scheduled Amlodipine Besylate (Norvasc), 5 MG ORAL Q12HR, (Reported) Amlodipine Besylate (Norvasc), 5 MG ORAL DAILY, (Reported) Aspirin* (Aspirin*), 81 MG ORAL DAILY Calcium Carbonate (Calcium Carbonate), 500 MG PO DAILY, (Reported) Clonazepam (Clonazepam), 1 MG ORAL DAILY Clonidine Hcl* (Catapres*), 0.1 MG ORAL EVERY 6 HOURS, (Reported) Clonidine Hcl* (Catapres*), 0.1 MG ORAL EVERY 6 HOURS, (Reported) Divalproex Sodium (Divalproex Sodium Er), 1,500 MG ORAL QHS Divalproex Sodium* (Depakote Er*), 250 MG ORAL EVERY 12 HOURS, (Reported) Fluconazole (Fluconazole), 200 MG ORAL DAILY Insulin Aspart* (Novolog*), 0 SUBQ BEFORE MEALS AND HS, (Reported) Insulin Detemir (Levemir Flexpen), 10 UNITS SUBQ Q12HR Ranitidine Hcl* (Zantac*), 150 MG ORAL TWICE A DAY, (Reported) Scheduled PRN Ondansetron* (Zofran*), 4 MG ORAL Q6H PRN Miscellaneous Medications Hydroxyzine Pamoate (Hydroxyzine Pamoate), 25 MG PO, (Reported) Insulin Aspart* (Novolog*), 0 SUBQ, (Reported) Insulin Detemir (Levemir Flexpen), 0 SUBQ, (Reported) Unable to Obtain Medications (Unable To Obtain Meds), (Reported) Unable to Obtain Medications (Unable To Obtain Meds), (Reported) Patient History Limited by: medical condition History Provided By: Patient, Medical Record Healthcare decision maker Davida Gallardo/ Mother Resuscitation status Full Code Advanced Directive on File No Review of Systems Psychiatric: Reports: anxiety, depressed feelings, emotional problems Physical Exam General Appearance: no apparent distress, lethargic, confused, agitated Last 24 Hour Vital Signs Date Time Temp Pulse Resp B/P (MAP) Pulse Ox O2 Delivery O2 Flow Rate FiO2 04/01/18 16:00 94 04/01/18 13:00 86 21 102/71 100 Room Air 04/01/18 12:00 93 04/01/18 12:00 98.9 95 22 136/88 100 Room Air 98.9 04/01/18 11:00 91 22 118/75 100 Room Air 04/01/18 09:00 96 20 128/96 100 Room Air 04/01/18 08:00 98.3 99 19 139/85 99 Room Air 98.3 04/01/18 07:41 97 04/01/18 07:00 100 24 131/84 96 Room Air 04/01/18 06:00 104 24 134/85 98 Room Air 04/01/18 05:00 104 24 122/74 97 Room Air 04/01/18 04:00 99.3 103 24 141/80 97 Room Air 99.3 04/01/18 04:00 103 04/01/18 03:00 109 24 131/77 97 Room Air 04/01/18 02:00 108 24 132/91 97 Room Air 04/01/18 01:00 109 24 113/78 97 Room Air 04/01/18 00:00 99.3 111 25 113/78 98 Room Air 99.3 03/31/18 23:00 114 29 115/74 98 Room Air 03/31/18 22:00 97.9 115 25 93/64 98 Room Air 97.9 03/31/18 21:00 103 25 105/70 98 Room Air 03/31/18 20:00 93 21 105/72 100 Room Air 03/31/18 20:00 94 03/31/18 19:00 88 12 122/83 99 Room Air 03/31/18 18:00 83 15 115/82 100 Room Air 03/31/18 17:00 82 16 151/87 100 Room Air Intake and Output 03/31/18 04/01/18 19:00 07:00 Intake Total 1137 ml 1445.7 ml Output Total 960 ml 490 ml Balance 177 ml 955.7 ml Intake Oral 0 ml 0 ml IV Total 1137 ml 1445.7 ml Output Urine Total 960 ml 490 ml # Bowel Movements 1 Laboratory Tests Test 03/31/18 17:00 03/31/18 23:30 04/01/18 04:00 04/01/18 04:40 Sodium Level 124 MMOL/L (136-145) #L 138 MMOL/L (136-145) # 138 MMOL/L (136-145) Potassium Level 4.0 MMOL/L (3.5-5.1) 4.4 MMOL/L (3.5-5.1) 4.2 MMOL/L (3.5-5.1) Chloride Level 85 MMOL/L (98-107) L 99 MMOL/L (98-107) 104 MMOL/L (98-107) Carbon Dioxide Level 26 MMOL/L (21-32) 27 MMOL/L (21-32) 27 MMOL/L (21-32) Anion Gap 13 mmol/L (5-15) 12 mmol/L (5-15) 8 mmol/L (5-15) Blood Urea Nitrogen 72 mg/dL (7-18) H 66 mg/dL (7-18) H 69 mg/dL (7-18) H Creatinine 3.7 MG/DL (0.55-1.30) H 3.2 MG/DL (0.55-1.30) H 3.1 MG/DL (0.55-1.30) H Estimat Glomerular Filtration Rate 16.5 mL/min (>60) 19.4 mL/min (>60) 20.1 mL/min (>60) Glucose Level 1008 MG/DL (74-106) #*H 98 MG/DL (74-106) # 105 MG/DL (74-106) Hemoglobin A1c 11.8 % (4.3-6.0) H Lactic Acid Level 5.90 mmol/L (0.66-2.22) H 4.30 mmol/L (0.66-2.22) H Calcium Level 9.3 MG/DL (8.5-10.1) 10.3 MG/DL (8.5-10.1) H 8.7 MG/DL (8.5-10.1) Phosphorus Level 3.3 MG/DL (2.5-4.9) Magnesium Level 2.2 MG/DL (1.8-2.4) Urine Opiates Screen Negative (NEGATIVE) Urine Barbiturates Screen Negative (NEGATIVE) Phencyclidine (PCP) Screen Negative (NEGATIVE) Urine Amphetamines Screen Negative (NEGATIVE) Urine Benzodiazepines Screen Negative (NEGATIVE) Urine Cocaine Screen Negative (NEGATIVE) Urine Marijuana (THC) Screen Negative (NEGATIVE) Acetone, Qualitative Ps Acetone Level Positive-small (NEGATIVE) White Blood Count 11.1 K/UL (4.8-10.8) H Red Blood Count 2.53 M/UL (4.20-5.40) L Hemoglobin 8.8 G/DL (12.0-16.0) L Hematocrit 22.9 % (37.0-47.0) L Mean Corpuscular Volume 91 FL (80-99) # Mean Corpuscular Hemoglobin 34.7 PG (27.0-31.0) H Mean Corpuscular Hemoglobin Concent 38.4 G/DL (32.0-36.0) H Red Cell Distribution Width 12.4 % (11.6-14.8) Platelet Count 104 K/UL (150-450) L Mean Platelet Volume 9.3 FL (6.5-10.1) Neutrophils (%) (Auto) 74.3 % (45.0-75.0) Lymphocytes (%) (Auto) 15.9 % (20.0-45.0) L Monocytes (%) (Auto) 8.9 % (1.0-10.0) Eosinophils (%) (Auto) 0.4 % (0.0-3.0) Basophils (%) (Auto) 0.5 % (0.0-2.0) Prothrombin Time 10.8 SEC (9.30-11.50) Prothromb Time International Ratio 1.0 (0.9-1.1) Activated Partial Thromboplast Time 28 SEC (23-33) Microbiology Date/Time Source Procedure Growth Status 03/31/18 17:00 Indwelling Cath Urine Culture - Preliminary NO GROWTH Resulted Height (Feet): 5 Height (Inches): 3.00 Weight (Pounds): 104 Medications Current Medications Medications (Trade) Dose Ordered Sig/Mateo Route PRN Reason Start Time Stop Time Status Last Admin Dose Admin Chlorhexidine Gluconate (Mara-Hex 2%) 1 applic DAILY@1999 TOPIC 04/01/18 20:00 05/01/18 19:59 Dextrose (Dextrose 50%) 25 ml PRN PRN IV HYPOGLYCEMIA 04/01/18 12:15 05/01/18 12:14 Dextrose (Dextrose 50%) 50 ml PRN PRN IV HYPOGLYCEMIA 04/01/18 12:15 05/01/18 12:14 Famotidine (Pepcid) 40 mg DAILY ORAL 04/01/18 09:00 05/01/18 08:59 Heparin Sodium (Porcine) (Heparin 5000 units/ml) 5,000 units EVERY 8 HOURS SUBQ 03/31/18 17:00 04/30/18 16:59 03/31/18 22:54 Insulin Human Regular (NovoLIN R) 5 units PRN PRN IV BS 200-299 04/01/18 12:15 05/01/18 12:14 Insulin Human Regular (NovoLIN R) 10 units PRN PRN IV BS=>300 04/01/18 12:15 05/01/18 12:14 Insulin Human Regular 100 units/ Sodium Chloride 101 ml @ 0 mls/hr Q24H IV 04/01/18 12:15 05/01/18 12:14 04/01/18 12:55 Lorazepam (Ativan 2mg/ml 1ml) 1 mg Q4H PRN IV For Anxiety 03/31/18 17:00 04/07/18 16:59 04/01/18 07:32 Miscellaneous Medication (Insulin Rate Change) 1 ea PRN PRN MISC Hyperglycemia 04/01/18 12:15 05/01/18 12:14 Piperacillin Sod/ Tazobactam Sod 3.375 gm/Sodium Chloride 110 ml @ 27 mls/hr Q12H IVPB 04/01/18 13:00 04/08/18 12:59 04/01/18 12:55 Sodium Chloride 1,000 ml @ 125 mls/hr Q8H IV 03/31/18 17:34 04/30/18 17:33 04/01/18 09:30 Assessment/Plan Assessment/Plan encephalopathy Bipolar anxiety non compliance haldol prn Jing Rodgers M.D. April 01, 2018 16:30
[2018-04-01] MEDS ORDERED: Dyna-Hex 2% Top Sol 2oz TOPIC SCH (20:00)
--- NOTE | 2018-04-01 20:30 | Consultation ---
DATE OF CONSULTATION: 04/01/2018 INFECTIOUS DISEASE CONSULTATION CONSULTING PHYSICIAN: Choco Lozada M.D. REQUESTING PHYSICIAN: John Ansari M.D. REASON FOR CONSULTATION: Aspiration pneumonia with leukocytosis, rule out sepsis. Recommendation for antibiotics treatment. HISTORY OF PRESENT ILLNESS: The patient is a 42-year-old female, well known to our service from the past with history of poorly controlled diabetes complicated with diabetic ketoacidosis on multiple occasions, psych disorder, and noncompliance, presented to [facility] with altered mental status, confusion, and blood glucose over than 1000. The patient was agitated and coughing dark bloody color phlegm. Chest x-ray showed right lower lobe infiltration suspicious for aspiration pneumonia. So, she was admitted to the intensive care unit for insulin drip and started on intravenous Zosyn and Infectious Disease consultation was requested for further evaluation and management. As of note, the patient is altered and responsive after she received Ativan for agitation and unable to provide any history. History was mainly obtained from the medical record and nursing staff. PAST MEDICAL HISTORY: Significant for diabetes, poorly controlled with multiple diabetic ketoacidosis in the past requiring admission, psych disorder, and malnutrition. PAST SURGICAL HISTORY: Not on record. MEDICATIONS: The patient currently on the Zosyn. For the rest of her medications, please refer to MAR. ALLERGIES: No known drug allergy. FAMILY HISTORY: Unable to obtain. SOCIAL HISTORY: Unclear whether she lives at the assisted living or not, but no recent drugs, tobacco, or alcohol abuse. REVIEW OF SYSTEMS: Unable to obtain. The patient is unable to verbalize and she is altered. PHYSICAL EXAMINATION: VITAL SIGNS: Temperature 98.9, pulse 93, respirations 22, blood pressure 136/88, and saturation 100% on room air. GENERAL: A middle-aged female, lying in bed, altered, unresponsive, comfortable, and not in acute distress. HEENT: Normocephalic and atraumatic. Unable to assess pupillary reaction or oral mucosa. NECK: Supple. No lymphadenopathy. CARDIOVASCULAR: Regular rate and rhythm. No murmur or gallop. LUNGS: She had diminished breathing sounds and crackles on the right lower lobe. No wheezing or rhonchi. ABDOMEN: Soft and nondistended. No organomegaly. No ascites. EXTREMITIES: No edema or cyanosis. SKIN: No rash. No hives. LABORATORY DATA: Labs showed white count of 11.1, hemoglobin of 8.8, and platelet count of 104,000. BUN of 69, creatinine of 3.1, glucose of 1008, calcium of 10.3, and lactic acid of 4.30. Toxicology screening showed negative result for drugs and positive for acetones. MICROBIOLOGY: Urine culture is pending. Blood culture is pending. IMAGING: Chest x-ray showed patchy opacity in the right lower lung, may represent infectious infiltrate or aspiration. ASSESSMENT AND RECOMMENDATION: 1. Aspiration pneumonia with productive cough tinged with blood. We will send sputum culture. Continue Zosyn empiric treatment. Monitor chest x-ray. Drug Clerk is following. 2. Leukocytosis due to the above, rule out sepsis. Await blood culture, which was sent from the emergency room. Continue Zosyn empiric coverage. 3. Diabetic ketoacidosis due to noncompliance. Continue insulin drip. Monitor blood glucose to keep between 80 to 120. 4. Altered level of consciousness due to the above and possibly Ativan. Continue neuro check. Avoid sedatives and psychiatric medications for now until she is fully awake. 5. Acute renal failure due to the above. Continue intravenous fluid for hydration. Avoid nephrotoxics. Monitor urine output. Nephrology team is following. Thank you for the consult. Infectious Disease will continue to follow. Choco Lozada M.D. DR: JENNIFER JOB#: [id number] CC:
[2018-04-02] VITALS (14 sets, daily range): BP systolic 73–147; BP diastolic 48–106
[2018-04-02] MEDS: Piperacillin/Tazobactam 3.375 GM in NS 110 ML IVPB SCH ×2 (01:59→13:17)
[2018-04-02] MEDS: NS w/KCl 20mEq 1,000 ML IV SCH ×4 (01:59→20:38)
[2018-04-02] MEDS: LORazepam Inj 2mg/ml 1ml IV PRN (04:21)
[2018-04-02 04:30] LABS: HEMATOCRIT 22.7 % (37.0-47.0); HEMOGLOBIN 7.7 G/DL (12.0-16.0); MEAN CORPUSCULAR VOLUME 94 FL (80-99); PLATELET COUNT 81 K/UL (150-450); RED BLOOD COUNT 2.42 M/UL (4.20-5.40); RED CELL DISTRIBUTION WIDTH 13.5 % (11.6-14.8); WHITE BLOOD COUNT 8.8 K/UL (4.8-10.8)
[2018-04-02 04:45] LABS: ALANINE AMINOTRANSFERASE 44 U/L (12-78); ALBUMIN 2.5 G/DL (3.4-5.0); ALBUMIN/GLOBULIN RATIO 0.6 (1.0-2.7); ALKALINE PHOSPHATASE 202 U/L (46-116); ANION GAP 5 mmol/L (5-15); ASPARTATE AMINO TRANSFERASE 30 U/L (15-37); BILIRUBIN,TOTAL 0.3 MG/DL (0.2-1.0); BLOOD UREA NITROGEN 60 mg/dL (7-18); CALCIUM 8.6 MG/DL (8.5-10.1); CARBON DIOXIDE 26 MMOL/L (21-32); CHLORIDE 112 MMOL/L (98-107); CREATININE 2.5 MG/DL (0.55-1.30); POTASSIUM 4.8 MMOL/L (3.5-5.1); SODIUM 143 MMOL/L (136-145)
[2018-04-02 04:53] LABS: PHOSPHORUS 1.9 MG/DL (2.5-4.9)
[2018-04-02] MEDS: Heparin 5000 units/ml inj SUBQ SCH ×3 (06:00→22:00)
[2018-04-02] MEDS ORDERED: NovoLOG Insulin Flexpen SUBQ SCH ×2 (08:00→11:30)
--- NOTE | 2018-04-02 08:15 | Nephrology Progress Note ---
Assessment/Plan Assessment/Plan 1. CIERA- multifactorial ATN ( volume depletion/hypotension) - Renal US negative - Cr improving, continue IVF's for now 2. DKA- on insulin gtt, defer management to Endocrinology 3. Dehydration- from severe hyperglycemia 4. DVT prophylaxis- heparin subq 5. Leukocytosis- blood and urine cxs collected. Appreciate ID assistance 6. Anemia- GI consult appreciated. Note reviewed 7. E- Ab- being replaced Subjective Date patient seen: April 02, 2018 Time patient seen: 08:11 ROS Limited/Unobtainable: Yes Constitutional: Reports: other - patient somnolent Allergies: Coded Allergies: No Known Allergies (Verified , NONE, 12/12/17) All Systems: reviewed and negative except above Subjective Patient somnolent but arousable. Objective Last 24 Hour Vital Signs Date Time Temp Pulse Resp B/P (MAP) Pulse Ox O2 Delivery O2 Flow Rate FiO2 04/02/18 07:00 98.8 82 12 126/74 100 Room Air 98.8 04/02/18 06:00 79 17 107/57 100 Room Air 04/02/18 05:00 70 17 73/48 99 Room Air 04/02/18 04:00 75 15 98/70 100 Room Air 04/02/18 04:00 70 04/02/18 03:00 69 17 85/56 98 Room Air 04/02/18 02:00 78 14 123/69 100 Room Air 04/02/18 01:00 70 17 90/51 99 Room Air 04/02/18 00:00 75 04/02/18 00:00 98.0 72 18 86/49 99 Room Air 98.0 04/01/18 23:00 84 16 139/74 99 Room Air 04/01/18 22:00 82 16 111/78 100 Room Air 04/01/18 21:00 72 17 86/50 100 Room Air 04/01/18 20:00 97.4 83 17 165/113 97 Room Air 97.4 04/01/18 20:00 83 04/01/18 19:00 77 19 80/56 100 Room Air 04/01/18 18:00 88 17 125/79 100 Room Air 04/01/18 17:00 95 23 103/75 100 Room Air 04/01/18 16:00 94 04/01/18 16:00 97.8 92 16 151/85 100 Room Air 97.8 04/01/18 15:00 92 17 150/97 100 Room Air 04/01/18 14:00 92 21 101/73 100 Room Air 04/01/18 13:00 86 21 102/71 100 Room Air 04/01/18 12:00 93 04/01/18 12:00 98.9 95 22 136/88 100 Room Air 98.9 04/01/18 11:00 91 22 118/75 100 Room Air 04/01/18 09:00 96 20 128/96 100 Room Air Intake and Output 04/01/18 04/02/18 19:00 07:00 Intake Total 1436.2 ml 1954.6 ml Output Total 680 ml 515 ml Balance 756.2 ml 1439.6 ml Intake Oral 0 ml 464 ml IV Total 1436.2 ml 1490.6 ml Output Urine Total 680 ml 515 ml Laboratory Tests 04/02/18 03:55: White Blood Count 8.8, Red Blood Count 2.42L, Hemoglobin 7.7L, Hematocrit 22.7L , Mean Corpuscular Volume 94, Mean Corpuscular Hemoglobin 31.7H, Mean Corpuscular Hemoglobin Concent 33.8, Red Cell Distribution Width 13.5, Platelet Count 81L, Mean Platelet Volume 10.8H, Neutrophils (%) (Auto) , Lymphocytes (%) (Auto) , Monocytes (%) (Auto) , Eosinophils (%) (Auto) , Basophils (%) (Auto) , Differential Total Cells Counted 100, Neutrophils % (Manual) 51, Lymphocytes % ( Manual) 39, Monocytes % (Manual) 5, Eosinophils % (Manual) 0, Basophils % ( Manual) 0, Band Neutrophils 5, Platelet Estimate DecreasedL, Platelet Morphology Normal, Poikilocytosis 1+, Anisocytosis 1+, Sodium Level 143, Potassium Level 4.8, Chloride Level 112H, Carbon Dioxide Level 26, Anion Gap 5, Blood Urea Nitrogen 60H, Creatinine 2.5H, Estimat Glomerular Filtration Rate 25.8, Glucose Level 87, Calcium Level 8.6, Phosphorus Level 1.9L, Magnesium Level 1.7L, Total Bilirubin 0.3, Aspartate Amino Transf (AST/SGOT) 30, Alanine Aminotransferase (ALT/SGPT) 44, Alkaline Phosphatase 202H, Pro-B-Type Natriuretic Peptide 323H, Total Protein 6.5, Albumin 2.5L, Globulin 4.0, Albumin /Globulin Ratio 0.6L Height (Feet): 5 Height (Inches): 3.00 Weight (Pounds): 112 General Appearance: WD/WN, no apparent distress EENT: normal ENT inspection Neck: non-tender, normal alignment Cardiovascular: normal rate, regular rhythm Respiratory/Chest: chest wall non-tender, lungs clear Abdomen: normal bowel sounds, non tender Edema: no edema noted Arm (L), no edema noted Arm (R), no edema noted Leg (L), no edema noted Leg (R), no edema noted Pedal (L), no edema noted Pedal (R), no edema noted Generalized John Ansari M.D. April 02, 2018 08:15
[2018-04-02] MEDS ORDERED: Levemir Flexpen SUBQ SCH ×2 (09:00→22:00)
[2018-04-02] MEDS ORDERED: Sodium Phosphate 15 MM in NS 275 ML IVPB SCH (10:00)
--- NOTE | 2018-04-02 10:57 | GI Progress Note ---
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; K31.84 - Gastroparesis SNOMED: 67958860, 420859836 (2) Non compliance with medical treatment ICD Codes: Z91.19 - Patient's noncompliance with other medical treatment and regimen SNOMED: 3225068 (3) Diarrhea ICD Codes: R19.7 - Diarrhea, unspecified SNOMED: 21107224 (4) Hyperglycemia ICD Codes: R73.9 - Hyperglycemia, unspecified SNOMED: 07202766 (5) Intractable nausea and vomiting ICD Codes: R11.2 - Nausea with vomiting, unspecified SNOMED: 531553707, 847834825 (6) Abdominal pain ICD Codes: R10.9 - Unspecified abdominal pain SNOMED: 46943248 (7) Severe malnutrition ICD Codes: E43 - Unspecified severe protein-calorie malnutrition SNOMED: 39389154 Status: stable Status Narrative Discussed with Dr. Vickers. Assessment/Plan Hx of EGD 2016 >> esophagitis downtrending H&H defer GI procedures at this time OB stool r/o GI bleed monitor H&H, prn transfusions zofran prn, reglan for persistent vomiting vs GI motility adv to ADA diet DM mgmt bowel regime ppi daily abx fu labs The patient was seen and examined at bedside and all new and available data was reviewed in the patients chart. I agree with the above findings, impression and plan. (Patient seen earlier today. Signature stamp does not reflect patient encounter time.). - Jarek Vickers MD Subjective Gastrointestinal/Abdominal: Reports: abdominal pain Objective Last 24 Hour Vital Signs Date Time Temp Pulse Resp B/P (MAP) Pulse Ox O2 Delivery O2 Flow Rate FiO2 04/02/18 10:00 80 16 130/70 100 Room Air 04/02/18 09:00 81 16 136/73 100 Room Air 04/02/18 08:00 78 17 121/84 100 Room Air 04/02/18 08:00 80 04/02/18 07:00 98.8 82 12 126/74 100 Room Air 98.8 04/02/18 06:00 79 17 107/57 100 Room Air 04/02/18 05:00 70 17 73/48 99 Room Air 04/02/18 04:00 97.4 75 15 98/70 100 Room Air 97.4 04/02/18 04:00 70 04/02/18 03:00 69 17 85/56 98 Room Air 04/02/18 02:00 78 14 123/69 100 Room Air 04/02/18 01:00 70 17 90/51 99 Room Air 04/02/18 00:00 75 04/02/18 00:00 98.0 72 18 86/49 99 Room Air 98.0 04/01/18 23:00 84 16 139/74 99 Room Air 04/01/18 22:00 82 16 111/78 100 Room Air 04/01/18 21:00 72 17 86/50 100 Room Air 04/01/18 20:00 97.4 83 17 165/113 97 Room Air 97.4 04/01/18 20:00 83 04/01/18 19:00 77 19 80/56 100 Room Air 04/01/18 18:00 88 17 125/79 100 Room Air 04/01/18 17:00 95 23 103/75 100 Room Air 04/01/18 16:00 94 04/01/18 16:00 97.8 92 16 151/85 100 Room Air 97.8 04/01/18 15:00 92 17 150/97 100 Room Air 04/01/18 14:00 92 21 101/73 100 Room Air 04/01/18 13:00 86 21 102/71 100 Room Air 04/01/18 12:00 93 04/01/18 12:00 98.9 95 22 136/88 100 Room Air 98.9 04/01/18 11:00 91 22 118/75 100 Room Air Intake and Output 04/01/18 04/02/18 19:00 07:00 Intake Total 1436.2 ml 2080.4 ml Output Total 680 ml 515 ml Balance 756.2 ml 1565.4 ml Intake Oral 0 ml 464 ml IV Total 1436.2 ml 1616.4 ml Output Urine Total 680 ml 515 ml Laboratory Tests Test 04/02/18 03:55 White Blood Count 8.8 K/UL (4.8-10.8) Red Blood Count 2.42 M/UL (4.20-5.40) L Hemoglobin 7.7 G/DL (12.0-16.0) L Hematocrit 22.7 % (37.0-47.0) L Mean Corpuscular Volume 94 FL (80-99) Mean Corpuscular Hemoglobin 31.7 PG (27.0-31.0) H Mean Corpuscular Hemoglobin Concent 33.8 G/DL (32.0-36.0) Red Cell Distribution Width 13.5 % (11.6-14.8) Platelet Count 81 K/UL (150-450) L Mean Platelet Volume 10.8 FL (6.5-10.1) H Neutrophils (%) (Auto) % (45.0-75.0) Lymphocytes (%) (Auto) % (20.0-45.0) Monocytes (%) (Auto) % (1.0-10.0) Eosinophils (%) (Auto) % (0.0-3.0) Basophils (%) (Auto) % (0.0-2.0) Differential Total Cells Counted 100 Neutrophils % (Manual) 51 % (45-75) Lymphocytes % (Manual) 39 % (20-45) Monocytes % (Manual) 5 % (1-10) Eosinophils % (Manual) 0 % (0-3) Basophils % (Manual) 0 % (0-2) Band Neutrophils 5 % (0-8) Platelet Estimate Decreased L Platelet Morphology Normal Poikilocytosis 1+ Anisocytosis 1+ Sodium Level 143 MMOL/L (136-145) Potassium Level 4.8 MMOL/L (3.5-5.1) Chloride Level 112 MMOL/L (98-107) H Carbon Dioxide Level 26 MMOL/L (21-32) Anion Gap 5 mmol/L (5-15) Blood Urea Nitrogen 60 mg/dL (7-18) H Creatinine 2.5 MG/DL (0.55-1.30) H Estimat Glomerular Filtration Rate 25.8 mL/min (>60) Glucose Level 87 MG/DL (74-106) Calcium Level 8.6 MG/DL (8.5-10.1) Phosphorus Level 1.9 MG/DL (2.5-4.9) L Magnesium Level 1.7 MG/DL (1.8-2.4) L Total Bilirubin 0.3 MG/DL (0.2-1.0) Aspartate Amino Transf (AST/SGOT) 30 U/L (15-37) Alanine Aminotransferase (ALT/SGPT) 44 U/L (12-78) Alkaline Phosphatase 202 U/L (46-116) H Pro-B-Type Natriuretic Peptide 323 pg/mL (0-125) H Total Protein 6.5 G/DL (6.4-8.2) Albumin 2.5 G/DL (3.4-5.0) L Globulin 4.0 g/dL Albumin/Globulin Ratio 0.6 (1.0-2.7) L Height (Feet): 5 Height (Inches): 3.00 Weight (Pounds): 112 General Appearance: WD/WN, no apparent distress, alert Cardiovascular: normal rate Respiratory/Chest: normal breath sounds, no respiratory distress Abdominal Exam: normal bowel sounds, non tender, soft Extremities: normal range of motion, non-tender Bola Serra NP April 02, 2018 10:57
[2018-04-02] MEDS ORDERED: Sodium Phosphate 15 MM in NS 275 ML IVPB ONE (11:00)
--- NOTE | 2018-04-02 11:30 | Pulmonolgy Critical Care Note ---
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 - Objective Last 24 Hour Vital Signs Date Time Temp Pulse Resp B/P (MAP) Pulse Ox O2 Delivery O2 Flow Rate FiO2 04/02/18 10:00 80 16 130/70 100 Room Air 04/02/18 09:00 81 16 136/73 100 Room Air 04/02/18 08:00 78 17 121/84 100 Room Air 04/02/18 08:00 80 04/02/18 07:00 98.8 82 12 126/74 100 Room Air 98.8 04/02/18 06:00 79 17 107/57 100 Room Air 04/02/18 05:00 70 17 73/48 99 Room Air 04/02/18 04:00 97.4 75 15 98/70 100 Room Air 97.4 04/02/18 04:00 70 04/02/18 03:00 69 17 85/56 98 Room Air 04/02/18 02:00 78 14 123/69 100 Room Air 04/02/18 01:00 70 17 90/51 99 Room Air 04/02/18 00:00 75 04/02/18 00:00 98.0 72 18 86/49 99 Room Air 98.0 04/01/18 23:00 84 16 139/74 99 Room Air 04/01/18 22:00 82 16 111/78 100 Room Air 04/01/18 21:00 72 17 86/50 100 Room Air 04/01/18 20:00 97.4 83 17 165/113 97 Room Air 97.4 04/01/18 20:00 83 04/01/18 19:00 77 19 80/56 100 Room Air 04/01/18 18:00 88 17 125/79 100 Room Air 04/01/18 17:00 95 23 103/75 100 Room Air 04/01/18 16:00 94 04/01/18 16:00 97.8 92 16 151/85 100 Room Air 97.8 04/01/18 15:00 92 17 150/97 100 Room Air 04/01/18 14:00 92 21 101/73 100 Room Air 04/01/18 13:00 86 21 102/71 100 Room Air 04/01/18 12:00 93 04/01/18 12:00 98.9 95 22 136/88 100 Room Air 98.9 Status: awake Condition: critical HEENT: atraumatic Heart: HR/BP stable Abdomen: soft, non-tender Extremities: no C/C/E Decubiti: location Micro: Microbiology Date/Time Source Procedure Growth Status 03/31/18 17:00 Blood Blood Culture - Preliminary NO GROWTH AFTER 24 HOURS Resulted 03/31/18 17:00 Blood Blood Culture - Preliminary NO GROWTH AFTER 24 HOURS Resulted 03/31/18 13:30 Nasal Nares MRSA Culture - Final Staphylococcus Aureus - Mrsa Complete 03/31/18 17:00 Indwelling Cath Urine Culture - Final Mixed Gram Positive Organism Complete 03/31/18 13:30 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 Complete Accucheck: 146 Critical Care - Subjective ROS Limited/Unobtainable: No Condition: critical EKG Rhythm: Sinus Rhythm Fluids: NS Drips: Off insulin drip I&O: Intake and Output 04/01/18 04/02/18 19:00 07:00 Intake Total 1436.2 ml 2080.4 ml Output Total 680 ml 515 ml Balance 756.2 ml 1565.4 ml Intake Oral 0 ml 464 ml IV Total 1436.2 ml 1616.4 ml Output Urine Total 680 ml 515 ml CXR: MIGUEL Labs: Laboratory Tests Test 04/02/18 03:55 White Blood Count 8.8 K/UL (4.8-10.8) Red Blood Count 2.42 M/UL (4.20-5.40) L Hemoglobin 7.7 G/DL (12.0-16.0) L Hematocrit 22.7 % (37.0-47.0) L Mean Corpuscular Volume 94 FL (80-99) Mean Corpuscular Hemoglobin 31.7 PG (27.0-31.0) H Mean Corpuscular Hemoglobin Concent 33.8 G/DL (32.0-36.0) Red Cell Distribution Width 13.5 % (11.6-14.8) Platelet Count 81 K/UL (150-450) L Mean Platelet Volume 10.8 FL (6.5-10.1) H Neutrophils (%) (Auto) % (45.0-75.0) Lymphocytes (%) (Auto) % (20.0-45.0) Monocytes (%) (Auto) % (1.0-10.0) Eosinophils (%) (Auto) % (0.0-3.0) Basophils (%) (Auto) % (0.0-2.0) Differential Total Cells Counted 100 Neutrophils % (Manual) 51 % (45-75) Lymphocytes % (Manual) 39 % (20-45) Monocytes % (Manual) 5 % (1-10) Eosinophils % (Manual) 0 % (0-3) Basophils % (Manual) 0 % (0-2) Band Neutrophils 5 % (0-8) Platelet Estimate Decreased L Platelet Morphology Normal Poikilocytosis 1+ Anisocytosis 1+ Sodium Level 143 MMOL/L (136-145) Potassium Level 4.8 MMOL/L (3.5-5.1) Chloride Level 112 MMOL/L (98-107) H Carbon Dioxide Level 26 MMOL/L (21-32) Anion Gap 5 mmol/L (5-15) Blood Urea Nitrogen 60 mg/dL (7-18) H Creatinine 2.5 MG/DL (0.55-1.30) H Estimat Glomerular Filtration Rate 25.8 mL/min (>60) Glucose Level 87 MG/DL (74-106) Calcium Level 8.6 MG/DL (8.5-10.1) Phosphorus Level 1.9 MG/DL (2.5-4.9) L Magnesium Level 1.7 MG/DL (1.8-2.4) L Total Bilirubin 0.3 MG/DL (0.2-1.0) Aspartate Amino Transf (AST/SGOT) 30 U/L (15-37) Alanine Aminotransferase (ALT/SGPT) 44 U/L (12-78) Alkaline Phosphatase 202 U/L (46-116) H Pro-B-Type Natriuretic Peptide 323 pg/mL (0-125) H Total Protein 6.5 G/DL (6.4-8.2) Albumin 2.5 G/DL (3.4-5.0) L Globulin 4.0 g/dL Albumin/Globulin Ratio 0.6 (1.0-2.7) L Fred Paz MD April 02, 2018 11:30
--- NOTE | 2018-04-02 11:40 | General Progress Note ---
Assessment/Plan Status: stable Assessment/Plan encephalopathy Bipolar anxiety non compliance haldol prn depakote Subjective Date patient seen: April 02, 2018 Neurologic/Psychiatric: Reports: anxiety, depressed, emotional problems Allergies: Coded Allergies: No Known Allergies (Verified , NONE, 12/12/17) Subjective The pt was asleep. The pt is still restrains. Not acting up. Objective Last 24 Hour Vital Signs Date Time Temp Pulse Resp B/P (MAP) Pulse Ox O2 Delivery O2 Flow Rate FiO2 04/02/18 10:00 80 16 130/70 100 Room Air 04/02/18 09:00 81 16 136/73 100 Room Air 04/02/18 08:00 78 17 121/84 100 Room Air 04/02/18 08:00 80 04/02/18 07:00 98.8 82 12 126/74 100 Room Air 98.8 04/02/18 06:00 79 17 107/57 100 Room Air 04/02/18 05:00 70 17 73/48 99 Room Air 04/02/18 04:00 97.4 75 15 98/70 100 Room Air 97.4 04/02/18 04:00 70 04/02/18 03:00 69 17 85/56 98 Room Air 04/02/18 02:00 78 14 123/69 100 Room Air 04/02/18 01:00 70 17 90/51 99 Room Air 04/02/18 00:00 75 04/02/18 00:00 98.0 72 18 86/49 99 Room Air 98.0 04/01/18 23:00 84 16 139/74 99 Room Air 04/01/18 22:00 82 16 111/78 100 Room Air 04/01/18 21:00 72 17 86/50 100 Room Air 04/01/18 20:00 97.4 83 17 165/113 97 Room Air 97.4 04/01/18 20:00 83 04/01/18 19:00 77 19 80/56 100 Room Air 04/01/18 18:00 88 17 125/79 100 Room Air 04/01/18 17:00 95 23 103/75 100 Room Air 04/01/18 16:00 94 04/01/18 16:00 97.8 92 16 151/85 100 Room Air 97.8 04/01/18 15:00 92 17 150/97 100 Room Air 04/01/18 14:00 92 21 101/73 100 Room Air 04/01/18 13:00 86 21 102/71 100 Room Air 04/01/18 12:00 93 04/01/18 12:00 98.9 95 22 136/88 100 Room Air 98.9 Intake and Output 04/01/18 04/02/18 19:00 07:00 Intake Total 1436.2 ml 2080.4 ml Output Total 680 ml 515 ml Balance 756.2 ml 1565.4 ml Intake Oral 0 ml 464 ml IV Total 1436.2 ml 1616.4 ml Output Urine Total 680 ml 515 ml Laboratory Tests 04/02/18 03:55: White Blood Count 8.8, Red Blood Count 2.42L, Hemoglobin 7.7L, Hematocrit 22.7L , Mean Corpuscular Volume 94, Mean Corpuscular Hemoglobin 31.7H, Mean Corpuscular Hemoglobin Concent 33.8, Red Cell Distribution Width 13.5, Platelet Count 81L, Mean Platelet Volume 10.8H, Neutrophils (%) (Auto) , Lymphocytes (%) (Auto) , Monocytes (%) (Auto) , Eosinophils (%) (Auto) , Basophils (%) (Auto) , Differential Total Cells Counted 100, Neutrophils % (Manual) 51, Lymphocytes % ( Manual) 39, Monocytes % (Manual) 5, Eosinophils % (Manual) 0, Basophils % ( Manual) 0, Band Neutrophils 5, Platelet Estimate DecreasedL, Platelet Morphology Normal, Poikilocytosis 1+, Anisocytosis 1+, Sodium Level 143, Potassium Level 4.8, Chloride Level 112H, Carbon Dioxide Level 26, Anion Gap 5, Blood Urea Nitrogen 60H, Creatinine 2.5H, Estimat Glomerular Filtration Rate 25.8, Glucose Level 87, Calcium Level 8.6, Phosphorus Level 1.9L, Magnesium Level 1.7L, Total Bilirubin 0.3, Aspartate Amino Transf (AST/SGOT) 30, Alanine Aminotransferase (ALT/SGPT) 44, Alkaline Phosphatase 202H, Pro-B-Type Natriuretic Peptide 323H, Total Protein 6.5, Albumin 2.5L, Globulin 4.0, Albumin /Globulin Ratio 0.6L Height (Feet): 5 Height (Inches): 3.00 Weight (Pounds): 112 General Appearance: WD/WN, no apparent distress, lethargic Farhadi,Pantea M.D. April 02, 2018 11:40
--- NOTE | 2018-04-02 11:48 | Diagnostic Imaging Report ---
Indication: Dyspnea Comparison: 04/01/2018 A single view chest radiograph was obtained. Findings: Progression infiltrate left lung base noted. Pneumonia may be present. Correlate clinically. Heart size is normal. IMPRESSION: Worsening left basilar infiltrate. Suspect pneumonia.
[2018-04-02] MEDS ORDERED: Haloperidol 5mg/ml Inj IM PRN (12:00)
[2018-04-02] MEDS: NovoLOG Insulin Flexpen SUBQ SCH ×5 (13:20→21:00)
--- NOTE | 2018-04-02 13:54 | Infectious Diseases Prog Note ---
Assessment/Plan Problems: (1) Aspiration pneumonia Assessment & Plan: with productive cough , await sputum culture and continue zosyn empiric coverage, monitor CXR (2) Leukocytosis Assessment & Plan: due to the above, rule out sepsis , await blood culture, continue zosyn empirically (3) DKA (diabetic ketoacidoses) Assessment & Plan: due to noncompliance , continue insulin drip , monitor blood glucose to keep between 80-120 (4) Altered level of consciousness Assessment & Plan: due to the above, continue neurocheck , avoid sedatives (5) Psychiatric disorder Assessment & Plan: psych meds on hold for now, follow up with psychiatrist (6) ARF (acute renal failure) Assessment & Plan: due to the above , continue IVF for hydration , avoid nephrotoxics , monitor UOP, nephrology is following Subjective Constitutional: Reports: no symptoms HEENT: Reports: no symptoms Respiratory: Reports: productive cough Breasts: Reports: no symptoms Cardiovascular: Reports: no symptoms Gastrointestinal/Abdominal: Reports: no symptoms Genitourinary: Reports: no symptoms Neurologic: Reports: weakness Psychiatric: Reports: depression Skin: Reports: no symptoms Endocrine: Reports: no symptoms Hematologic: Reports: no symptoms Allergies: Coded Allergies: No Known Allergies (Verified , NONE, 12/12/17) Subjective she was more awake and responsive today , follows commands, tolerated diet. Objective Vital Signs Last 24 Hour Vital Signs Date Time Temp Pulse Resp B/P (MAP) Pulse Ox O2 Delivery O2 Flow Rate FiO2 04/02/18 10:00 80 16 130/70 100 Room Air 04/02/18 09:00 81 16 136/73 100 Room Air 04/02/18 08:00 78 17 121/84 100 Room Air 04/02/18 08:00 80 04/02/18 07:00 98.8 82 12 126/74 100 Room Air 98.8 04/02/18 06:00 79 17 107/57 100 Room Air 04/02/18 05:00 70 17 73/48 99 Room Air 04/02/18 04:00 97.4 75 15 98/70 100 Room Air 97.4 04/02/18 04:00 70 04/02/18 03:00 69 17 85/56 98 Room Air 04/02/18 02:00 78 14 123/69 100 Room Air 04/02/18 01:00 70 17 90/51 99 Room Air 04/02/18 00:00 75 04/02/18 00:00 98.0 72 18 86/49 99 Room Air 98.0 04/01/18 23:00 84 16 139/74 99 Room Air 04/01/18 22:00 82 16 111/78 100 Room Air 04/01/18 21:00 72 17 86/50 100 Room Air 04/01/18 20:00 97.4 83 17 165/113 97 Room Air 97.4 04/01/18 20:00 83 04/01/18 19:00 77 19 80/56 100 Room Air 04/01/18 18:00 88 17 125/79 100 Room Air 04/01/18 17:00 95 23 103/75 100 Room Air 04/01/18 16:00 94 04/01/18 16:00 97.8 92 16 151/85 100 Room Air 97.8 04/01/18 15:00 92 17 150/97 100 Room Air 04/01/18 14:00 92 21 101/73 100 Room Air Height (Feet): 5 Height (Inches): 3.00 Weight (Pounds): 112 General Appearance: WD/WN, no acute distress, cachetic HEENT: normocephalic, atraumatic, anicteric, mucous membranes moist, PERRL Respiratory/Chest: chest wall non-tender, normal breath sounds, no respiratory distress, no accessory muscle use, decreased breath sounds Cardiovascular: normal peripheral pulses, normal rate, regular rhythm, no gallop/murmur, no JVD Abdomen: normal bowel sounds, soft, non tender, no organomegaly, non distended , no mass, no scars Extremities: no cyanosis, no clubbing Skin: no rash, no lesions Neurologic/Psychiatric: alert, oriented x 3 Lymphatic: no neck adenopathy Microbiology Date/Time Source Procedure Growth Status 03/31/18 17:00 Blood Blood Culture - Preliminary NO GROWTH AFTER 24 HOURS Resulted 03/31/18 17:00 Blood Blood Culture - Preliminary NO GROWTH AFTER 24 HOURS Resulted 03/31/18 13:30 Nasal Nares MRSA Culture - Final Staphylococcus Aureus - Mrsa Complete 03/31/18 17:00 Indwelling Cath Urine Culture - Final Mixed Gram Positive Organism Complete 03/31/18 13:30 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 Complete Laboratory Tests Test 04/02/18 03:55 White Blood Count 8.8 K/UL (4.8-10.8) Red Blood Count 2.42 M/UL (4.20-5.40) L Hemoglobin 7.7 G/DL (12.0-16.0) L Hematocrit 22.7 % (37.0-47.0) L Mean Corpuscular Volume 94 FL (80-99) Mean Corpuscular Hemoglobin 31.7 PG (27.0-31.0) H Mean Corpuscular Hemoglobin Concent 33.8 G/DL (32.0-36.0) Red Cell Distribution Width 13.5 % (11.6-14.8) Platelet Count 81 K/UL (150-450) L Mean Platelet Volume 10.8 FL (6.5-10.1) H Neutrophils (%) (Auto) % (45.0-75.0) Lymphocytes (%) (Auto) % (20.0-45.0) Monocytes (%) (Auto) % (1.0-10.0) Eosinophils (%) (Auto) % (0.0-3.0) Basophils (%) (Auto) % (0.0-2.0) Differential Total Cells Counted 100 Neutrophils % (Manual) 51 % (45-75) Lymphocytes % (Manual) 39 % (20-45) Monocytes % (Manual) 5 % (1-10) Eosinophils % (Manual) 0 % (0-3) Basophils % (Manual) 0 % (0-2) Band Neutrophils 5 % (0-8) Platelet Estimate Decreased L Platelet Morphology Normal Poikilocytosis 1+ Anisocytosis 1+ Sodium Level 143 MMOL/L (136-145) Potassium Level 4.8 MMOL/L (3.5-5.1) Chloride Level 112 MMOL/L (98-107) H Carbon Dioxide Level 26 MMOL/L (21-32) Anion Gap 5 mmol/L (5-15) Blood Urea Nitrogen 60 mg/dL (7-18) H Creatinine 2.5 MG/DL (0.55-1.30) H Estimat Glomerular Filtration Rate 25.8 mL/min (>60) Glucose Level 87 MG/DL (74-106) Calcium Level 8.6 MG/DL (8.5-10.1) Phosphorus Level 1.9 MG/DL (2.5-4.9) L Magnesium Level 1.7 MG/DL (1.8-2.4) L Total Bilirubin 0.3 MG/DL (0.2-1.0) Aspartate Amino Transf (AST/SGOT) 30 U/L (15-37) Alanine Aminotransferase (ALT/SGPT) 44 U/L (12-78) Alkaline Phosphatase 202 U/L (46-116) H Pro-B-Type Natriuretic Peptide 323 pg/mL (0-125) H Total Protein 6.5 G/DL (6.4-8.2) Albumin 2.5 G/DL (3.4-5.0) L Globulin 4.0 g/dL Albumin/Globulin Ratio 0.6 (1.0-2.7) L Current Medications Medications (Trade) Dose Ordered Sig/Mateo Route PRN Reason Start Time Stop Time Status Last Admin Dose Admin Chlorhexidine Gluconate (Mara-Hex 2%) 1 applic DAILY@2000 TOPIC 04/02/18 20:00 05/01/18 19:59 Dextrose (Dextrose 50%) 25 ml STAT PRN IV Hypoglycemia 04/02/18 12:00 05/02/18 11:59 Dextrose (Dextrose 50%) 50 ml STAT PRN IV Hypoglycemia 04/02/18 12:00 05/02/18 11:59 Famotidine (Pepcid) 40 mg DAILY ORAL 04/03/18 09:00 05/01/18 08:59 Haloperidol Lactate (Haldol) 5 mg Q6H PRN IM Agitation 04/02/18 12:00 05/01/18 11:59 Heparin Sodium (Porcine) (Heparin 5000 units/ml) 5,000 units EVERY 8 HOURS SUBQ 04/02/18 14:00 04/30/18 16:59 Insulin Aspart (NovoLOG) BEFORE MEALS AND HS SUBQ 04/02/18 12:30 05/02/18 12:29 04/02/18 13:21 Insulin Aspart (NovoLOG) 5 units NOVOTIAC SUBQ 04/02/18 11:50 05/02/18 07:59 04/02/18 13:20 Insulin Detemir (Levemir) 10 units Q12HR SUBQ 04/02/18 21:00 05/02/18 20:59 Piperacillin Sod/ Tazobactam Sod 3.375 gm/Sodium Chloride 110 ml @ 27 mls/hr Q12H IVPB 04/02/18 13:00 04/08/18 12:59 04/02/18 13:17 Sodium Chloride 1,000 ml @ 125 mls/hr Q8H IV 04/02/18 12:00 05/02/18 11:59 04/02/18 13:18 Choco Lozada M.D. April 02, 2018 13:54
--- NOTE | 2018-04-02 19:36 | General Progress Note ---
Assessment/Plan Problem List: (1) Type 1 diabetes mellitus ICD Codes: E10.9 - Type 1 diabetes mellitus without complications SNOMED: 57489301 (2) Psychiatric disorder ICD Codes: F99 - Mental disorder, not otherwise specified SNOMED: 85941293, 536666755 (3) DKA (diabetic ketoacidoses) ICD Codes: E13.10 - Other specified diabetes mellitus with ketoacidosis without coma SNOMED: 80082907, [id number] Assessment/Plan DKA resolved Novolog 5 units before dinner was held since she did not eat continue Levemir 10 units bid - do NOT hold - d/w RN continue Novolog 5 units ac tid continue NISS Subjective Allergies: Coded Allergies: No Known Allergies (Verified , NONE, 12/12/17) All Systems: reviewed and negative except above Subjective events noted - interval notes reviewed receiving blood transfusion "I wanna go home" Objective Last 24 Hour Vital Signs Date Time Temp Pulse Resp B/P (MAP) Pulse Ox O2 Delivery O2 Flow Rate FiO2 04/02/18 16:00 97.9 84 16 124/79 95 Room Air 97.9 04/02/18 12:00 97.0 81 17 143/106 100 Room Air 97.0 04/02/18 10:00 80 16 130/70 100 Room Air 04/02/18 09:00 81 16 136/73 100 Room Air 04/02/18 08:00 78 17 121/84 100 Room Air 04/02/18 08:00 80 04/02/18 07:00 98.8 82 12 126/74 100 Room Air 98.8 04/02/18 06:00 79 17 107/57 100 Room Air 04/02/18 05:00 70 17 73/48 99 Room Air 04/02/18 04:00 97.4 75 15 98/70 100 Room Air 97.4 04/02/18 04:00 70 04/02/18 03:00 69 17 85/56 98 Room Air 04/02/18 02:00 78 14 123/69 100 Room Air 04/02/18 01:00 70 17 90/51 99 Room Air 04/02/18 00:00 75 04/02/18 00:00 98.0 72 18 86/49 99 Room Air 98.0 04/01/18 23:00 84 16 139/74 99 Room Air 04/01/18 22:00 82 16 111/78 100 Room Air 04/01/18 21:00 72 17 86/50 100 Room Air 04/01/18 20:00 97.4 83 17 165/113 97 Room Air 97.4 04/01/18 20:00 83 Intake and Output 04/01/18 04/02/18 19:00 07:00 Intake Total 1436.2 ml 2080.4 ml Output Total 680 ml 515 ml Balance 756.2 ml 1565.4 ml Intake Oral 0 ml 464 ml IV Total 1436.2 ml 1616.4 ml Output Urine Total 680 ml 515 ml Laboratory Tests 04/02/18 03:55: White Blood Count 8.8, Red Blood Count 2.42L, Hemoglobin 7.7L, Hematocrit 22.7L , Mean Corpuscular Volume 94, Mean Corpuscular Hemoglobin 31.7H, Mean Corpuscular Hemoglobin Concent 33.8, Red Cell Distribution Width 13.5, Platelet Count 81L, Mean Platelet Volume 10.8H, Neutrophils (%) (Auto) , Lymphocytes (%) (Auto) , Monocytes (%) (Auto) , Eosinophils (%) (Auto) , Basophils (%) (Auto) , Differential Total Cells Counted 100, Neutrophils % (Manual) 51, Lymphocytes % ( Manual) 39, Monocytes % (Manual) 5, Eosinophils % (Manual) 0, Basophils % ( Manual) 0, Band Neutrophils 5, Platelet Estimate DecreasedL, Platelet Morphology Normal, Poikilocytosis 1+, Anisocytosis 1+, Sodium Level 143, Potassium Level 4.8, Chloride Level 112H, Carbon Dioxide Level 26, Anion Gap 5, Blood Urea Nitrogen 60H, Creatinine 2.5H, Estimat Glomerular Filtration Rate 25.8, Glucose Level 87, Calcium Level 8.6, Phosphorus Level 1.9L, Magnesium Level 1.7L, Total Bilirubin 0.3, Aspartate Amino Transf (AST/SGOT) 30, Alanine Aminotransferase (ALT/SGPT) 44, Alkaline Phosphatase 202H, Pro-B-Type Natriuretic Peptide 323H, Total Protein 6.5, Albumin 2.5L, Globulin 4.0, Albumin /Globulin Ratio 0.6L Height (Feet): 5 Height (Inches): 3.00 Weight (Pounds): 112 General Appearance: no apparent distress Neck: normal alignment Cardiovascular: normal rate, regular rhythm Respiratory/Chest: decreased breath sounds Abdomen: normal bowel sounds Pelvis: normal external exam Edema: no edema noted Arm (L), no edema noted Arm (R), no edema noted Leg (L), no edema noted Leg (R), no edema noted Pedal (L), no edema noted Pedal (R), no edema noted Generalized Objective Current Medications Medications (Trade) Dose Ordered Sig/Mateo Route PRN Reason Start Time Stop Time Status Last Admin Dose Admin Chlorhexidine Gluconate (Mara-Hex 2%) 1 applic DAILY@2000 TOPIC 04/02/18 20:00 05/01/18 19:59 Dextrose (Dextrose 50%) 25 ml STAT PRN IV Hypoglycemia 04/02/18 12:00 05/02/18 11:59 Dextrose (Dextrose 50%) 50 ml STAT PRN IV Hypoglycemia 04/02/18 12:00 05/02/18 11:59 Famotidine (Pepcid) 40 mg DAILY ORAL 04/03/18 09:00 05/01/18 08:59 Haloperidol Lactate (Haldol) 5 mg Q6H PRN IM Agitation 04/02/18 12:00 05/01/18 11:59 Heparin Sodium (Porcine) (Heparin 5000 units/ml) 5,000 units EVERY 8 HOURS SUBQ 04/02/18 14:00 04/30/18 16:59 Insulin Aspart (NovoLOG) BEFORE MEALS AND HS SUBQ 04/02/18 12:30 05/02/18 12:29 04/02/18 17:47 Insulin Aspart (NovoLOG) 5 units NOVOTIAC SUBQ 04/02/18 11:50 05/02/18 07:59 04/02/18 13:20 Insulin Detemir (Levemir) 10 units Q12HR SUBQ 04/02/18 21:00 05/02/18 20:59 Piperacillin Sod/ Tazobactam Sod 3.375 gm/Sodium Chloride 110 ml @ 27 mls/hr Q12H IVPB 04/02/18 13:00 04/08/18 12:59 04/02/18 13:17 Sodium Chloride 1,000 ml @ 125 mls/hr Q8H IV 04/02/18 12:00 05/02/18 11:59 04/02/18 13:18 Item Value Date Time Bedside Blood Glucose 264 mg/dl H 04/02/18 1747 Bedside Blood Glucose 277 mg/dl H 04/02/18 1321 Bedside Blood Glucose 146 mg/dl H 04/02/18 0938 Glucose Level 87 MG/DL 04/02/18 0355 Bedside Blood Glucose 133 mg/dl H 04/02/18 0600 Bedside Blood Glucose 148 mg/dl H 04/02/18 0200 Bedside Blood Glucose 104 mg/dl 04/01/18 2200 FRANCES BRADLEY April 02, 2018 19:36
[2018-04-02] MEDS: Dyna-Hex 2% Top Sol 2oz TOPIC SCH (20:43)
[2018-04-02] MEDS: Levemir Flexpen SUBQ SCH (21:00)
[2018-04-03] MEDS: Piperacillin/Tazobactam 3.375 GM in NS 110 ML IVPB SCH ×3 (00:41→21:28)
[2018-04-03] MEDS: NS w/KCl 20mEq 1,000 ML IV SCH (03:49)
[2018-04-03 04:00] VITALS: BP 174/96
[2018-04-03] MEDS: Heparin 5000 units/ml inj SUBQ SCH ×3 (06:00→21:28)
[2018-04-03] MEDS: NovoLOG Insulin Flexpen SUBQ SCH ×7 (06:44→21:00)
[2018-04-03 07:30] LABS: HEMATOCRIT 25.5 % (37.0-47.0); HEMOGLOBIN 8.8 G/DL (12.0-16.0); MEAN CORPUSCULAR VOLUME 91 FL (80-99); PLATELET COUNT 84 K/UL (150-450); RED CELL DISTRIBUTION WIDTH 14.1 % (11.6-14.8); WHITE BLOOD COUNT 7.2 K/UL (4.8-10.8)
[2018-04-03 07:50] LABS: ANION GAP 8 mmol/L (5-15); BLOOD UREA NITROGEN 39 mg/dL (7-18); CALCIUM 8.1 MG/DL (8.5-10.1); CARBON DIOXIDE 25 MMOL/L (21-32); CHLORIDE 102 MMOL/L (98-107); FERRITIN 204 NG/ML (8-388); POTASSIUM 5.2 MMOL/L (3.5-5.1); SODIUM 135 MMOL/L (136-145)
[2018-04-03 08:00] VITALS: BP 160/90
[2018-04-03 08:12] LABS: % IRON SATURATION 94 % (15-50); IRON 166 ug/dL (50-175); TOTAL IRON BINDING CAPACITY 176 ug/dL (250-450)
--- NOTE | 2018-04-03 08:49 | Nephrology Progress Note ---
Assessment/Plan Assessment/Plan 1. CIERA- multifactorial ATN ( volume depletion/hypotension) - Renal US negative - Cr improving down to 2. DC IVF's 2. DKA- mgmt per Endocrinology 3. Dehydration- from severe hyperglycemia. Resolved 4. DVT prophylaxis- heparin subq 5. Leukocytosis- per ID management 6. Anemia- GI consult appreciated 7. E- Ab- being replaced prn Subjective Date patient seen: April 03, 2018 Time patient seen: 08:46 ROS Limited/Unobtainable: No Constitutional: Reports: weakness Allergies: Coded Allergies: No Known Allergies (Verified , NONE, 12/12/17) All Systems: reviewed and negative except above Subjective Patient more improved. Feeling better Objective Last 24 Hour Vital Signs Date Time Temp Pulse Resp B/P (MAP) Pulse Ox O2 Delivery O2 Flow Rate FiO2 04/03/18 04:00 98.1 80 20 174/96 100 98.1 04/02/18 20:00 98.1 80 20 147/84 99 98.1 04/02/18 16:00 97.9 84 16 124/79 95 Room Air 97.9 04/02/18 12:00 97.0 81 17 143/106 100 Room Air 97.0 04/02/18 10:00 80 16 130/70 100 Room Air 04/02/18 09:00 81 16 136/73 100 Room Air Intake and Output 04/02/18 04/03/18 19:00 07:00 Intake Total 385 ml 1125 ml Output Total 1650 ml 1650 ml Balance -1265 ml -525 ml Intake Oral 385 ml IV Total 1125 ml Output Urine Total 1650 ml 1650 ml # Bowel Movements 1 Laboratory Tests 04/03/18 06:10: White Blood Count 7.2, Red Blood Count 2.80L, Hemoglobin 8.8L, Hematocrit 25.5L , Mean Corpuscular Volume 91, Mean Corpuscular Hemoglobin 31.6H, Mean Corpuscular Hemoglobin Concent 34.6, Red Cell Distribution Width 14.1, Platelet Count 84L, Mean Platelet Volume 9.9, Neutrophils (%) (Auto) , Lymphocytes (%) ( Auto) , Monocytes (%) (Auto) , Eosinophils (%) (Auto) , Basophils (%) (Auto) , Differential Total Cells Counted 100, Neutrophils % (Manual) 69, Lymphocytes % ( Manual) 23, Monocytes % (Manual) 6, Eosinophils % (Manual) 2, Basophils % ( Manual) 0, Band Neutrophils 0, Platelet Estimate DecreasedL, Platelet Morphology Normal, Hypochromasia 1+, Anisocytosis 1+, Reticulocyte Count [ Pending], Prothrombin Time 10.0, Prothromb Time International Ratio 1.0, Activated Partial Thromboplast Time 27, Sodium Level 135L, Potassium Level 5.2H , Chloride Level 102, Carbon Dioxide Level 25, Anion Gap 8, Blood Urea Nitrogen 39H, Creatinine 2.0H, Estimat Glomerular Filtration Rate 33.5, Glucose Level 245 #H, Calcium Level 8.1L, Iron Level 166, Total Iron Binding Capacity 176L, Percent Iron Saturation 94H, Unsaturated Iron Binding 10L, Ferritin 204, Carcinoembryonic Antigen [Pending], Vitamin B12 Level 1746H, Folate 19.0, Thyroid Stimulating Hormone (TSH) 2.290, Free Thyroxine 1.00 Height (Feet): 5 Height (Inches): 3.00 Weight (Pounds): 112 General Appearance: WD/WN, no apparent distress, alert EENT: PERRL/EOMI, normal ENT inspection Neck: non-tender, normal alignment Cardiovascular: normal rate, regular rhythm Respiratory/Chest: chest wall non-tender, lungs clear Abdomen: normal bowel sounds, non tender, soft Edema: no edema noted Arm (L), no edema noted Arm (R), no edema noted Leg (L), no edema noted Leg (R), no edema noted Pedal (L), no edema noted Pedal (R), no edema noted Generalized John Ansari M.D. April 03, 2018 08:49
[2018-04-03] MEDS: Levemir Flexpen SUBQ SCH ×2 (09:00→21:52)
--- NOTE | 2018-04-03 10:37 | GI Progress Note ---
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; K31.84 - Gastroparesis SNOMED: 61004075, 021202375 (2) Non compliance with medical treatment ICD Codes: Z91.19 - Patient's noncompliance with other medical treatment and regimen SNOMED: 4534790 (3) Diarrhea ICD Codes: R19.7 - Diarrhea, unspecified SNOMED: 56957336 (4) Hyperglycemia ICD Codes: R73.9 - Hyperglycemia, unspecified SNOMED: 69226441 (5) Intractable nausea and vomiting ICD Codes: R11.2 - Nausea with vomiting, unspecified SNOMED: 050336134, 796014702 (6) Abdominal pain ICD Codes: R10.9 - Unspecified abdominal pain SNOMED: 67104245 (7) Severe malnutrition ICD Codes: E43 - Unspecified severe protein-calorie malnutrition SNOMED: 28762387 Status: unchanged Status Narrative Discussed with Dr. Vickers. Assessment/Plan Hx of EGD 2016 >> esophagitis downtrending H&H defer GI procedures at this time OB stool r/o GI bleed monitor H&H, prn transfusions zofran prn, reglan for persistent vomiting vs GI motility adv to ADA diet DM mgmt bowel regime ppi daily abx fu labs The patient was seen and examined at bedside and all new and available data was reviewed in the patients chart. I agree with the above findings, impression and plan. (Patient seen earlier today. Signature stamp does not reflect patient encounter time.). - Jarek Vickers MD Subjective Gastrointestinal/Abdominal: Reports: abdominal pain Objective Last 24 Hour Vital Signs Date Time Temp Pulse Resp B/P (MAP) Pulse Ox O2 Delivery O2 Flow Rate FiO2 04/03/18 08:00 98.0 80 14 160/90 100 Room Air 98.0 04/03/18 04:00 98.1 80 20 174/96 100 98.1 04/02/18 20:00 98.1 80 20 147/84 99 98.1 04/02/18 16:00 97.9 84 16 124/79 95 Room Air 97.9 04/02/18 12:00 97.0 81 17 143/106 100 Room Air 97.0 Intake and Output 04/02/18 04/03/18 19:00 07:00 Intake Total 385 ml 1125 ml Output Total 1650 ml 1650 ml Balance -1265 ml -525 ml Intake Oral 385 ml IV Total 1125 ml Output Urine Total 1650 ml 1650 ml # Bowel Movements 1 Laboratory Tests Test 04/03/18 06:10 White Blood Count 7.2 K/UL (4.8-10.8) Red Blood Count 2.80 M/UL (4.20-5.40) L Hemoglobin 8.8 G/DL (12.0-16.0) L Hematocrit 25.5 % (37.0-47.0) L Mean Corpuscular Volume 91 FL (80-99) Mean Corpuscular Hemoglobin 31.6 PG (27.0-31.0) H Mean Corpuscular Hemoglobin Concent 34.6 G/DL (32.0-36.0) Red Cell Distribution Width 14.1 % (11.6-14.8) Platelet Count 84 K/UL (150-450) L Mean Platelet Volume 9.9 FL (6.5-10.1) Neutrophils (%) (Auto) % (45.0-75.0) Lymphocytes (%) (Auto) % (20.0-45.0) Monocytes (%) (Auto) % (1.0-10.0) Eosinophils (%) (Auto) % (0.0-3.0) Basophils (%) (Auto) % (0.0-2.0) Differential Total Cells Counted 100 Neutrophils % (Manual) 69 % (45-75) Lymphocytes % (Manual) 23 % (20-45) Monocytes % (Manual) 6 % (1-10) Eosinophils % (Manual) 2 % (0-3) Basophils % (Manual) 0 % (0-2) Band Neutrophils 0 % (0-8) Platelet Estimate Decreased L Platelet Morphology Normal Hypochromasia 1+ Anisocytosis 1+ Reticulocyte Count 0.5 % (0.0-2.0) Prothrombin Time 10.0 SEC (9.30-11.50) Prothromb Time International Ratio 1.0 (0.9-1.1) Activated Partial Thromboplast Time 27 SEC (23-33) Sodium Level 135 MMOL/L (136-145) L Potassium Level 5.2 MMOL/L (3.5-5.1) H Chloride Level 102 MMOL/L (98-107) Carbon Dioxide Level 25 MMOL/L (21-32) Anion Gap 8 mmol/L (5-15) Blood Urea Nitrogen 39 mg/dL (7-18) H Creatinine 2.0 MG/DL (0.55-1.30) H Estimat Glomerular Filtration Rate 33.5 mL/min (>60) Glucose Level 245 MG/DL (74-106) #H Calcium Level 8.1 MG/DL (8.5-10.1) L Iron Level 166 ug/dL (50-175) Total Iron Binding Capacity 176 ug/dL (250-450) L Percent Iron Saturation 94 % (15-50) H Unsaturated Iron Binding 10 ug/dL (112-346) L Ferritin 204 NG/ML (8-388) Carcinoembryonic Antigen Pending Vitamin B12 Level 1746 PG/ML (193-986) H Folate 19.0 NG/ML (8.6-58.9) Thyroid Stimulating Hormone (TSH) 2.290 uiU/mL (0.358-3.740) Free Thyroxine 1.00 NG/DL (0.76-1.46) Height (Feet): 5 Height (Inches): 3.00 Weight (Pounds): 112 General Appearance: WD/WN, no apparent distress, alert Cardiovascular: normal rate Respiratory/Chest: normal breath sounds, no respiratory distress Abdominal Exam: normal bowel sounds, non tender, soft Extremities: normal range of motion, non-tender Bola Serra NP April 03, 2018 10:37
[2018-04-03 12:00] VITALS: BP 158/95
--- NOTE | 2018-04-03 12:56 | Pulmonology Progress Note ---
Assessment/Plan Problems: (1) DKA (diabetic ketoacidoses) (2) CIERA (acute kidney injury) (3) Cocaine abuse (4) HTN (hypertension) Assessment/Plan bun/creatinine decreasing iv fluids was hypoglycemic last night f/u electrolytes in am sliding scale Subjective ROS Limited/Unobtainable: No Constitutional: Reports: no symptoms HEENT: Repors: no symptoms Respiratory: Reports: no symptoms Allergies: Coded Allergies: No Known Allergies (Verified , NONE, 12/12/17) Objective Last 24 Hour Vital Signs Date Time Temp Pulse Resp B/P (MAP) Pulse Ox O2 Delivery O2 Flow Rate FiO2 04/03/18 12:00 97.9 79 16 158/95 98 Room Air 97.9 04/03/18 08:00 98.0 80 14 160/90 100 Room Air 98.0 04/03/18 04:00 98.1 80 20 174/96 100 98.1 04/02/18 20:00 98.1 80 20 147/84 99 98.1 04/02/18 16:00 97.9 84 16 124/79 95 Room Air 97.9 Intake and Output 04/02/18 04/03/18 19:00 07:00 Intake Total 385 ml 1125 ml Output Total 1650 ml 1650 ml Balance -1265 ml -525 ml Intake Oral 385 ml IV Total 1125 ml Output Urine Total 1650 ml 1650 ml # Bowel Movements 1 Objective General Appearance: cachetic Lines, tubes and drains: peripheral HEENT: normocephalic, atraumatic Neck: non-tender, normal alignment Respiratory/Chest: chest wall non-tender, lungs clear Breasts: no masses Cardiovascular/Chest: normal peripheral pulses Abdomen: normal bowel sounds, soft Genitourinary/Rectal: normal genital exam Skin Exam: normal pigmentation 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 Complete Laboratory Tests 04/03/18 06:10: White Blood Count 7.2, Red Blood Count 2.80L, Hemoglobin 8.8L, Hematocrit 25.5L , Mean Corpuscular Volume 91, Mean Corpuscular Hemoglobin 31.6H, Mean Corpuscular Hemoglobin Concent 34.6, Red Cell Distribution Width 14.1, Platelet Count 84L, Mean Platelet Volume 9.9, Neutrophils (%) (Auto) , Lymphocytes (%) ( Auto) , Monocytes (%) (Auto) , Eosinophils (%) (Auto) , Basophils (%) (Auto) , Differential Total Cells Counted 100, Neutrophils % (Manual) 69, Lymphocytes % ( Manual) 23, Monocytes % (Manual) 6, Eosinophils % (Manual) 2, Basophils % ( Manual) 0, Band Neutrophils 0, Platelet Estimate DecreasedL, Platelet Morphology Normal, Hypochromasia 1+, Anisocytosis 1+, Reticulocyte Count 0.5, Prothrombin Time 10.0, Prothromb Time International Ratio 1.0, Activated Partial Thromboplast Time 27, Sodium Level 135L, Potassium Level 5.2H, Chloride Level 102, Carbon Dioxide Level 25, Anion Gap 8, Blood Urea Nitrogen 39H, Creatinine 2.0H, Estimat Glomerular Filtration Rate 33.5, Glucose Level 245#H, Calcium Level 8.1L, Iron Level 166, Total Iron Binding Capacity 176L, Percent Iron Saturation 94H, Unsaturated Iron Binding 10L, Ferritin 204, Carcinoembryonic Antigen [Pending], Vitamin B12 Level 1746H, Folate 19.0, Thyroid Stimulating Hormone (TSH) 2.290, Free Thyroxine 1.00 Current Medications Medications (Trade) Dose Ordered Sig/Mateo Route PRN Reason Start Time Stop Time Status Last Admin Dose Admin Chlorhexidine Gluconate (Mara-Hex 2%) 1 applic DAILY@1999 TOPIC 04/02/18 20:00 05/01/18 19:59 04/02/18 20:43 Dextrose (Dextrose 50%) 25 ml STAT PRN IV Hypoglycemia 04/02/18 12:00 05/02/18 11:59 Dextrose (Dextrose 50%) 50 ml STAT PRN IV Hypoglycemia 04/02/18 12:00 05/02/18 11:59 04/02/18 21:24 Famotidine (Pepcid) 40 mg DAILY ORAL 04/03/18 09:00 05/01/18 08:59 04/03/18 08:58 Haloperidol Lactate (Haldol) 5 mg Q6H PRN IM Agitation 04/02/18 12:00 05/01/18 11:59 Heparin Sodium (Porcine) (Heparin 5000 units/ml) 5,000 units EVERY 8 HOURS SUBQ 04/02/18 14:00 04/30/18 16:59 Insulin Aspart (NovoLOG) BEFORE MEALS AND HS SUBQ 04/02/18 12:30 05/02/18 12:29 04/03/18 12:32 Insulin Aspart (NovoLOG) 5 units NOVOTIAC SUBQ 04/02/18 11:50 05/02/18 07:59 04/03/18 06:46 Insulin Detemir (Levemir) 10 units Q12HR SUBQ 04/02/18 21:00 05/02/18 20:59 04/03/18 09:00 Piperacillin Sod/ Tazobactam Sod 3.375 gm/Sodium Chloride 110 ml @ 27 mls/hr Q12H IVPB 04/02/18 13:00 04/08/18 12:59 04/03/18 12:33 Fred Paz MD April 03, 2018 12:56
--- NOTE | 2018-04-03 13:03 | General Progress Note ---
Assessment/Plan Status: stable Assessment/Plan encephalopathy Bipolar anxiety non compliance haldol prn depakote Subjective Date patient seen: April 03, 2018 Neurologic/Psychiatric: Reports: anxiety, depressed, emotional problems Allergies: Coded Allergies: No Known Allergies (Verified , NONE, 12/12/17) Subjective The pt is agitated and wants to be discharged Objective Last 24 Hour Vital Signs Date Time Temp Pulse Resp B/P (MAP) Pulse Ox O2 Delivery O2 Flow Rate FiO2 04/03/18 12:00 97.9 79 16 158/95 98 Room Air 97.9 04/03/18 08:00 98.0 80 14 160/90 100 Room Air 98.0 04/03/18 04:00 98.1 80 20 174/96 100 98.1 04/02/18 20:00 98.1 80 20 147/84 99 98.1 04/02/18 16:00 97.9 84 16 124/79 95 Room Air 97.9 Intake and Output 04/02/18 04/03/18 19:00 07:00 Intake Total 385 ml 1125 ml Output Total 1650 ml 1650 ml Balance -1265 ml -525 ml Intake Oral 385 ml IV Total 1125 ml Output Urine Total 1650 ml 1650 ml # Bowel Movements 1 Laboratory Tests 04/03/18 06:10: White Blood Count 7.2, Red Blood Count 2.80L, Hemoglobin 8.8L, Hematocrit 25.5L , Mean Corpuscular Volume 91, Mean Corpuscular Hemoglobin 31.6H, Mean Corpuscular Hemoglobin Concent 34.6, Red Cell Distribution Width 14.1, Platelet Count 84L, Mean Platelet Volume 9.9, Neutrophils (%) (Auto) , Lymphocytes (%) ( Auto) , Monocytes (%) (Auto) , Eosinophils (%) (Auto) , Basophils (%) (Auto) , Differential Total Cells Counted 100, Neutrophils % (Manual) 69, Lymphocytes % ( Manual) 23, Monocytes % (Manual) 6, Eosinophils % (Manual) 2, Basophils % ( Manual) 0, Band Neutrophils 0, Platelet Estimate DecreasedL, Platelet Morphology Normal, Hypochromasia 1+, Anisocytosis 1+, Reticulocyte Count 0.5, Prothrombin Time 10.0, Prothromb Time International Ratio 1.0, Activated Partial Thromboplast Time 27, Sodium Level 135L, Potassium Level 5.2H, Chloride Level 102, Carbon Dioxide Level 25, Anion Gap 8, Blood Urea Nitrogen 39H, Creatinine 2.0H, Estimat Glomerular Filtration Rate 33.5, Glucose Level 245#H, Calcium Level 8.1L, Iron Level 166, Total Iron Binding Capacity 176L, Percent Iron Saturation 94H, Unsaturated Iron Binding 10L, Ferritin 204, Carcinoembryonic Antigen [Pending], Vitamin B12 Level 1746H, Folate 19.0, Thyroid Stimulating Hormone (TSH) 2.290, Free Thyroxine 1.00 Height (Feet): 5 Height (Inches): 3.00 Weight (Pounds): 112 General Appearance: WD/WN, no apparent distress, alert, agitated Jing Jaime M.D. April 03, 2018 13:03
--- NOTE | 2018-04-03 14:03 | Infectious Diseases Prog Note ---
Assessment/Plan Problems: (1) Aspiration pneumonia Assessment & Plan: with productive cough , sputum culture was not done , continue zosyn empiric coverage, monitor CXR (2) Leukocytosis Assessment & Plan: due to the above, rule out sepsis , blood culture x2 so far negative , continue zosyn empirically (3) DKA (diabetic ketoacidoses) Assessment & Plan: due to noncompliance , continue insulin drip , monitor blood glucose to keep between 80-120 (4) Altered level of consciousness Assessment & Plan: due to the above, continue neurocheck , avoid sedatives (5) Psychiatric disorder Assessment & Plan: psych meds on hold for now, follow up with psychiatrist (6) ARF (acute renal failure) Assessment & Plan: due to the above , continue IVF for hydration , avoid nephrotoxics , monitor UOP, nephrology is following Subjective Constitutional: Reports: no symptoms HEENT: Reports: no symptoms Respiratory: Reports: dry cough Breasts: Reports: no symptoms Cardiovascular: Reports: no symptoms Gastrointestinal/Abdominal: Reports: no symptoms Genitourinary: Reports: no symptoms Neurologic: Reports: no symptoms Psychiatric: Reports: no symptoms Skin: Reports: no symptoms Endocrine: Reports: no symptoms Hematologic: Reports: no symptoms Musculoskeletal: Reports: no symptoms Allergies: Coded Allergies: No Known Allergies (Verified , NONE, 12/12/17) Subjective she was more awake and responsive today , follows commands, tolerated diet. Objective Vital Signs Last 24 Hour Vital Signs Date Time Temp Pulse Resp B/P (MAP) Pulse Ox O2 Delivery O2 Flow Rate FiO2 04/03/18 12:00 97.9 79 16 158/95 98 Room Air 97.9 04/03/18 08:00 98.0 80 14 160/90 100 Room Air 98.0 04/03/18 04:00 98.1 80 20 174/96 100 98.1 04/02/18 20:00 98.1 80 20 147/84 99 98.1 04/02/18 16:00 97.9 84 16 124/79 95 Room Air 97.9 Height (Feet): 5 Height (Inches): 3.00 Weight (Pounds): 112 General Appearance: WD/WN, no acute distress HEENT: normocephalic, atraumatic, anicteric, mucous membranes moist, PERRL Respiratory/Chest: chest wall non-tender, no respiratory distress, no accessory muscle use, decreased breath sounds, crackles/rales Cardiovascular: normal peripheral pulses, normal rate, regular rhythm, no gallop/murmur, no JVD Abdomen: normal bowel sounds, soft, non tender, no organomegaly, non distended , no mass, no scars Genitourinary: normal external genitalia Extremities: no cyanosis, no clubbing Skin: no rash, no lesions, no ulcers Neurologic/Psychiatric: alert, responsive Lymphatic: no neck adenopathy, no groin adenopathy Microbiology Date/Time Source Procedure Growth Status 03/31/18 17:00 Blood Blood Culture - Preliminary NO GROWTH AFTER 48 HOURS Resulted 03/31/18 17:00 Blood Blood Culture - Preliminary NO GROWTH AFTER 48 HOURS Resulted 03/31/18 17:00 Indwelling Cath Urine Culture - Final Mixed Gram Positive Organism Complete Laboratory Tests Test 04/03/18 06:10 White Blood Count 7.2 K/UL (4.8-10.8) Red Blood Count 2.80 M/UL (4.20-5.40) L Hemoglobin 8.8 G/DL (12.0-16.0) L Hematocrit 25.5 % (37.0-47.0) L Mean Corpuscular Volume 91 FL (80-99) Mean Corpuscular Hemoglobin 31.6 PG (27.0-31.0) H Mean Corpuscular Hemoglobin Concent 34.6 G/DL (32.0-36.0) Red Cell Distribution Width 14.1 % (11.6-14.8) Platelet Count 84 K/UL (150-450) L Mean Platelet Volume 9.9 FL (6.5-10.1) Neutrophils (%) (Auto) % (45.0-75.0) Lymphocytes (%) (Auto) % (20.0-45.0) Monocytes (%) (Auto) % (1.0-10.0) Eosinophils (%) (Auto) % (0.0-3.0) Basophils (%) (Auto) % (0.0-2.0) Differential Total Cells Counted 100 Neutrophils % (Manual) 69 % (45-75) Lymphocytes % (Manual) 23 % (20-45) Monocytes % (Manual) 6 % (1-10) Eosinophils % (Manual) 2 % (0-3) Basophils % (Manual) 0 % (0-2) Band Neutrophils 0 % (0-8) Platelet Estimate Decreased L Platelet Morphology Normal Hypochromasia 1+ Anisocytosis 1+ Reticulocyte Count 0.5 % (0.0-2.0) Prothrombin Time 10.0 SEC (9.30-11.50) Prothromb Time International Ratio 1.0 (0.9-1.1) Activated Partial Thromboplast Time 27 SEC (23-33) Sodium Level 135 MMOL/L (136-145) L Potassium Level 5.2 MMOL/L (3.5-5.1) H Chloride Level 102 MMOL/L (98-107) Carbon Dioxide Level 25 MMOL/L (21-32) Anion Gap 8 mmol/L (5-15) Blood Urea Nitrogen 39 mg/dL (7-18) H Creatinine 2.0 MG/DL (0.55-1.30) H Estimat Glomerular Filtration Rate 33.5 mL/min (>60) Glucose Level 245 MG/DL (74-106) #H Calcium Level 8.1 MG/DL (8.5-10.1) L Iron Level 166 ug/dL (50-175) Total Iron Binding Capacity 176 ug/dL (250-450) L Percent Iron Saturation 94 % (15-50) H Unsaturated Iron Binding 10 ug/dL (112-346) L Ferritin 204 NG/ML (8-388) Carcinoembryonic Antigen Pending Vitamin B12 Level 1746 PG/ML (193-986) H Folate 19.0 NG/ML (8.6-58.9) Thyroid Stimulating Hormone (TSH) 2.290 uiU/mL (0.358-3.740) Free Thyroxine 1.00 NG/DL (0.76-1.46) Current Medications Medications (Trade) Dose Ordered Sig/Mateo Route PRN Reason Start Time Stop Time Status Last Admin Dose Admin Chlorhexidine Gluconate (Mara-Hex 2%) 1 applic DAILY@1999 TOPIC 04/02/18 20:00 05/01/18 19:59 04/02/18 20:43 Dextrose (Dextrose 50%) 25 ml STAT PRN IV Hypoglycemia 04/02/18 12:00 05/02/18 11:59 Dextrose (Dextrose 50%) 50 ml STAT PRN IV Hypoglycemia 04/02/18 12:00 05/02/18 11:59 04/02/18 21:24 Famotidine (Pepcid) 40 mg DAILY ORAL 04/03/18 09:00 05/01/18 08:59 04/03/18 08:58 Haloperidol Lactate (Haldol) 5 mg Q6H PRN IM Agitation 04/02/18 12:00 05/01/18 11:59 Heparin Sodium (Porcine) (Heparin 5000 units/ml) 5,000 units EVERY 8 HOURS SUBQ 04/02/18 14:00 04/30/18 16:59 Insulin Aspart (NovoLOG) BEFORE MEALS AND HS SUBQ 04/02/18 12:30 05/02/18 12:29 04/03/18 12:32 Insulin Aspart (NovoLOG) 5 units NOVOTIAC SUBQ 04/02/18 11:50 05/02/18 07:59 04/03/18 06:46 Insulin Detemir (Levemir) 10 units Q12HR SUBQ 04/02/18 21:00 05/02/18 20:59 04/03/18 09:00 Piperacillin Sod/ Tazobactam Sod 3.375 gm/Sodium Chloride 110 ml @ 27 mls/hr Q12H IVPB 04/02/18 13:00 04/08/18 12:59 04/03/18 12:33 Choco Lozada M.D. April 03, 2018 14:03
[2018-04-03] MEDS ORDERED: Tubing IV Secondary IV ONE (14:05)
--- NOTE | 2018-04-03 15:20 | General Progress Note ---
Assessment/Plan Problem List: (1) Type 1 diabetes mellitus ICD Codes: E10.9 - Type 1 diabetes mellitus without complications SNOMED: 57747562 (2) Psychiatric disorder ICD Codes: F99 - Mental disorder, not otherwise specified SNOMED: 42131347, 049908038 (3) DKA (diabetic ketoacidoses) ICD Codes: E13.10 - Other specified diabetes mellitus with ketoacidosis without coma SNOMED: 95049822, 614576862 Assessment/Plan continue Levemir 10 units bid - do NOT hold - d/w RN continue Novolog 5 units ac tid continue NISS stable for DC home from endocrine stand point Subjective Allergies: Coded Allergies: No Known Allergies (Verified , NONE, 12/12/17) All Systems: reviewed and negative except above Subjective events noted - interval notes reviewed she is asking to be discharged Objective Last 24 Hour Vital Signs Date Time Temp Pulse Resp B/P (MAP) Pulse Ox O2 Delivery O2 Flow Rate FiO2 04/03/18 12:00 97.9 79 16 158/95 98 Room Air 97.9 04/03/18 08:00 98.0 80 14 160/90 100 Room Air 98.0 04/03/18 04:00 98.1 80 20 174/96 100 98.1 04/02/18 20:00 98.1 80 20 147/84 99 98.1 04/02/18 16:00 97.9 84 16 124/79 95 Room Air 97.9 Intake and Output 04/02/18 04/03/18 19:00 07:00 Intake Total 385 ml 1125 ml Output Total 1650 ml 1650 ml Balance -1265 ml -525 ml Intake Oral 385 ml IV Total 1125 ml Output Urine Total 1650 ml 1650 ml # Bowel Movements 1 Laboratory Tests 04/03/18 06:10: White Blood Count 7.2, Red Blood Count 2.80L, Hemoglobin 8.8L, Hematocrit 25.5L , Mean Corpuscular Volume 91, Mean Corpuscular Hemoglobin 31.6H, Mean Corpuscular Hemoglobin Concent 34.6, Red Cell Distribution Width 14.1, Platelet Count 84L, Mean Platelet Volume 9.9, Neutrophils (%) (Auto) , Lymphocytes (%) ( Auto) , Monocytes (%) (Auto) , Eosinophils (%) (Auto) , Basophils (%) (Auto) , Differential Total Cells Counted 100, Neutrophils % (Manual) 69, Lymphocytes % ( Manual) 23, Monocytes % (Manual) 6, Eosinophils % (Manual) 2, Basophils % ( Manual) 0, Band Neutrophils 0, Platelet Estimate DecreasedL, Platelet Morphology Normal, Hypochromasia 1+, Anisocytosis 1+, Reticulocyte Count 0.5, Prothrombin Time 10.0, Prothromb Time International Ratio 1.0, Activated Partial Thromboplast Time 27, Sodium Level 135L, Potassium Level 5.2H, Chloride Level 102, Carbon Dioxide Level 25, Anion Gap 8, Blood Urea Nitrogen 39H, Creatinine 2.0H, Estimat Glomerular Filtration Rate 33.5, Glucose Level 245#H, Calcium Level 8.1L, Iron Level 166, Total Iron Binding Capacity 176L, Percent Iron Saturation 94H, Unsaturated Iron Binding 10L, Ferritin 204, Carcinoembryonic Antigen [Pending], Vitamin B12 Level 1746H, Folate 19.0, Thyroid Stimulating Hormone (TSH) 2.290, Free Thyroxine 1.00 Height (Feet): 5 Height (Inches): 3.00 Weight (Pounds): 112 General Appearance: no apparent distress Neck: normal alignment Cardiovascular: normal rate Respiratory/Chest: lungs clear Abdomen: normal bowel sounds Objective Item Value Date Time Bedside Blood Glucose 232 mg/dl H 04/03/18 1232 Bedside Blood Glucose 270 mg/dl H 04/03/18 0900 Bedside Blood Glucose 126 mg/dl H 04/03/18 0646 FRANCES BRADLEY April 03, 2018 15:20
[2018-04-03 16:00] VITALS: BP 135/83
[2018-04-03 19:55] VITALS: BP 112/71
[2018-04-03] MEDS: Dyna-Hex 2% Top Sol 2oz TOPIC SCH (21:28)
[2018-04-04] VITALS: BP 116/69
[2018-04-04] MEDS: Heparin 5000 units/ml inj SUBQ SCH (05:08)
[2018-04-04] MEDS: NovoLOG Insulin Flexpen SUBQ SCH ×4 (06:10→12:38)
--- NOTE | 2018-04-04 07:37 | General Progress Note ---
Assessment/Plan Problem List: (1) Type 1 diabetes mellitus ICD Codes: E10.9 - Type 1 diabetes mellitus without complications SNOMED: 40132339 (2) Psychiatric disorder ICD Codes: F99 - Mental disorder, not otherwise specified SNOMED: 15183458, 845287025 (3) DKA (diabetic ketoacidoses) ICD Codes: E13.10 - Other specified diabetes mellitus with ketoacidosis without coma SNOMED: 27290164, 380025061 Assessment/Plan continue Levemir 10 units bid - do NOT hold - d/w RN continue Novolog 5 units ac tid continue NISS stable for DC home from endocrine stand point I verified with patient and she does have insulin supplies at home - no need for Rx Subjective Allergies: Coded Allergies: No Known Allergies (Verified , NONE, 12/12/17) All Systems: reviewed and negative except above Subjective events noted - interval notes reviewed reduced dose of Levemir was given last night elevated glucose this morning received blood transfusion Objective Last 24 Hour Vital Signs Date Time Temp Pulse Resp B/P (MAP) Pulse Ox O2 Delivery O2 Flow Rate FiO2 04/04/18 00:00 97.9 96 18 116/69 100 97.9 04/03/18 19:55 97.5 71 18 112/71 98 97.5 04/03/18 16:00 97.6 78 16 135/83 100 Room Air 97.6 04/03/18 12:00 97.9 79 16 158/95 98 Room Air 97.9 04/03/18 08:00 98.0 80 14 160/90 100 Room Air 98.0 Intake and Output 04/03/18 04/04/18 19:00 07:00 Intake Total 760 ml Output Total 920 ml Balance -160 ml IV Total 110 ml Other 650 ml Output Urine Total 920 ml Height (Feet): 5 Height (Inches): 3.00 Weight (Pounds): 112 General Appearance: no apparent distress Neck: normal alignment Cardiovascular: normal peripheral pulses Respiratory/Chest: chest wall non-tender Abdomen: normal bowel sounds Edema: no edema noted Arm (L), no edema noted Arm (R), no edema noted Leg (L), no edema noted Leg (R), no edema noted Pedal (L), no edema noted Pedal (R), no edema noted Generalized Objective Current Medications Medications (Trade) Dose Ordered Sig/Mateo Route PRN Reason Start Time Stop Time Status Last Admin Dose Admin Chlorhexidine Gluconate (Mara-Hex 2%) 1 applic DAILY@2000 TOPIC 04/02/18 20:00 05/01/18 19:59 04/03/18 21:28 Dextrose (Dextrose 50%) 25 ml STAT PRN IV Hypoglycemia 04/02/18 12:00 05/02/18 11:59 Dextrose (Dextrose 50%) 50 ml STAT PRN IV Hypoglycemia 04/02/18 12:00 05/02/18 11:59 04/02/18 21:24 Famotidine (Pepcid) 40 mg DAILY ORAL 04/03/18 09:00 05/01/18 08:59 04/03/18 08:58 Haloperidol Lactate (Haldol) 5 mg Q6H PRN IM Agitation 04/02/18 12:00 05/01/18 11:59 04/03/18 21:27 Heparin Sodium (Porcine) (Heparin 5000 units/ml) 5,000 units EVERY 8 HOURS SUBQ 04/02/18 14:00 04/30/18 16:59 Insulin Aspart (NovoLOG) BEFORE MEALS AND HS SUBQ 04/02/18 12:30 05/02/18 12:29 04/04/18 06:11 Insulin Aspart (NovoLOG) 5 units NOVOTIAC SUBQ 04/02/18 11:50 05/02/18 07:59 04/04/18 06:10 Insulin Detemir (Levemir) 10 units Q12HR SUBQ 04/02/18 21:00 05/02/18 20:59 04/03/18 21:52 Piperacillin Sod/ Tazobactam Sod 3.375 gm/Sodium Chloride 110 ml @ 27 mls/hr Q12H IVPB 04/02/18 13:00 04/08/18 12:59 04/03/18 21:28 Item Value Date Time Bedside Blood Glucose 291 mg/dl H 04/04/18 0630 Bedside Blood Glucose 68 mg/dl L 04/03/18 2152 Bedside Blood Glucose 180 mg/dl H 04/03/18 1812 Bedside Blood Glucose 232 mg/dl H 04/03/18 1232 Bedside Blood Glucose 270 mg/dl H 04/03/18 0900 FRANCES BRADLEY April 04, 2018 07:37
[2018-04-04 08:00] VITALS: BP 147/105
[2018-04-04] MEDS: Levemir Flexpen SUBQ SCH (08:38)
--- NOTE | 2018-04-04 08:57 | Nephrology Progress Note ---
Assessment/Plan Assessment/Plan 1. CIERA- multifactorial ATN ( volume depletion/hypotension) - Renal US negative - Cr improving. AM labs still pending 2. DKA- mgmt per Endocrinology. Much improved 3. Dehydration- from severe hyperglycemia. Resolved. DC IVF's 4. DVT prophylaxis- heparin subq 5. Leukocytosis- per ID management 6. Anemia- GI managing. Hgb stable 7. E- Ab- being replaced prn. AM labs pending Disposition. Once CIERA resolved, will start discharge palnning. Patient will need Home Health. manager core to arrange Subjective Date patient seen: April 04, 2018 Time patient seen: 08:55 ROS Limited/Unobtainable: No Allergies: Coded Allergies: No Known Allergies (Verified , NONE, 12/12/17) All Systems: reviewed and negative except above Subjective Patient up and around in room. Requesting to go home Objective Last 24 Hour Vital Signs Date Time Temp Pulse Resp B/P (MAP) Pulse Ox O2 Delivery O2 Flow Rate FiO2 04/04/18 00:00 97.9 96 18 116/69 100 97.9 04/03/18 19:55 97.5 71 18 112/71 98 97.5 04/03/18 16:00 97.6 78 16 135/83 100 Room Air 97.6 04/03/18 12:00 97.9 79 16 158/95 98 Room Air 97.9 Intake and Output 04/03/18 04/04/18 19:00 07:00 Intake Total 760 ml Output Total 920 ml Balance -160 ml IV Total 110 ml Other 650 ml Output Urine Total 920 ml Height (Feet): 5 Height (Inches): 3.00 Weight (Pounds): 112 General Appearance: WD/WN, no apparent distress EENT: PERRL/EOMI, normal ENT inspection Neck: non-tender, normal alignment Cardiovascular: normal peripheral pulses, normal rate Respiratory/Chest: chest wall non-tender, lungs clear, normal breath sounds Abdomen: normal bowel sounds, non tender, soft Edema: no edema noted Arm (L), no edema noted Arm (R), no edema noted Leg (L), no edema noted Leg (R), no edema noted Pedal (L), no edema noted Pedal (R), no edema noted Generalized John Ansari M.D. April 04, 2018 08:57
[2018-04-04 09:35] LABS: BASOPHILS % (AUTO) 0.6 % (0.0-2.0); EOSINOPHILS % (AUTO) 3.5 % (0.0-3.0); HEMATOCRIT 27.1 % (37.0-47.0); HEMOGLOBIN 9.1 G/DL (12.0-16.0); MEAN CORPUSCULAR VOLUME 93 FL (80-99); MONOCYTES % (AUTO) 6.7 % (1.0-10.0); NEUTROPHILS % (AUTO) 61.2 % (45.0-75.0); PLATELET COUNT 128 K/UL (150-450); RED BLOOD COUNT 2.93 M/UL (4.20-5.40); WHITE BLOOD COUNT 7.5 K/UL (4.8-10.8)
[2018-04-04 12:00] VITALS: BP 121/90
[2018-04-04] MEDS: Piperacillin/Tazobactam 3.375 GM in NS 110 ML IVPB SCH (12:36)
[2018-04-04] MEDS ORDERED: Heparin 5000 units/ml inj SUBQ SCH (14:00)
[2018-04-04] MEDS ORDERED: Dyna-Hex 2% Top Sol 2oz TOPIC SCH (20:00)
--- NOTE | 2018-04-04 22:16 | Pulmonology Progress Note ---
Assessment/Plan Problems: (1) DKA (diabetic ketoacidoses) (2) CIERA (acute kidney injury) (3) Cocaine abuse (4) HTN (hypertension) Assessment/Plan bun/creatinine decreasing iv fluids was hypoglycemic last night f/u electrolytes in am sliding scale Subjective Allergies: Coded Allergies: No Known Allergies (Verified , NONE, 12/12/17) Objective Last 24 Hour Vital Signs Date Time Temp Pulse Resp B/P (MAP) Pulse Ox O2 Delivery O2 Flow Rate FiO2 04/04/18 12:00 97.3 86 20 121/90 99 Room Air 97.3 04/04/18 08:00 97.4 85 16 147/105 96 Room Air 97.4 04/04/18 00:00 97.9 96 18 116/69 100 97.9 Intake and Output 04/03/18 04/04/18 19:00 07:00 Intake Total 760 ml Output Total 920 ml Balance -160 ml IV Total 110 ml Other 650 ml Output Urine Total 920 ml Objective General Appearance: cachetic Lines, tubes and drains: peripheral HEENT: normocephalic, atraumatic Neck: non-tender, normal alignment Respiratory/Chest: chest wall non-tender, lungs clear Breasts: no masses Cardiovascular/Chest: normal peripheral pulses Abdomen: normal bowel sounds, soft Genitourinary/Rectal: normal genital exam Skin Exam: normal pigmentation Neurologic: prospecting observer II-XII grossly normal Laboratory Tests 04/04/18 06:00: White Blood Count 7.5, Red Blood Count 2.93L, Hemoglobin 9.1L, Hematocrit 27.1L , Mean Corpuscular Volume 93, Mean Corpuscular Hemoglobin 31.0, Mean Corpuscular Hemoglobin Concent 33.5, Red Cell Distribution Width 14.0, Platelet Count 128#L, Mean Platelet Volume 9.8, Neutrophils (%) (Auto) 61.2, Lymphocytes (%) (Auto) 28.0, Monocytes (%) (Auto) 6.7, Eosinophils (%) (Auto) 3.5H, Basophils (%) (Auto) 0.6 Fred Paz MD April 04, 2018 22:16
--- NOTE | 2018-04-06 14:57 | General Progress Note ---
Assessment/Plan Assessment/Plan encephalopathy Bipolar anxiety non compliance haldol prn depakote Subjective Date patient seen: April 04, 2018 Neurologic/Psychiatric: Reports: anxiety, depressed Allergies: Coded Allergies: No Known Allergies (Verified , NONE, 12/12/17) Subjective The pt is agitated and wants to be discharged. the pt is not suicidal Objective Height (Feet): 5 Height (Inches): 3.00 Weight (Pounds): 112 General Appearance: WD/WN, no apparent distress, alert Jing Jaime M.D. April 06, 2018 14:57
--- NOTE | 2018-04-07 09:44 | Discharge Summary ---
Discharge Summary Discharge Summary Discharge Summary DATE OF ADMISSION: 03/31/2018 DATE OF DISCHARGE: 04/04/2018 REASON FOR ADMISSION: 42 years old female with past medical history significant for diabetes mellitus type 1, noncompliance with regimen, recurrent episodes of diabetes ketoacidosis , hypertension, history of CVA, renal insufficiency, bipolar disorder, anemia , presented to emergency department with evidence of severe hyperglycemia. Patient was confused and unable to provide much of history. Glucose 1054, anion gap 18, bicarbonate 19, ABG with acidosis, BUN 81, creatinine 3.9, sodium 104, potassium 6.8. No leukocytosis, hemoglobin 9.7, hematocrit 31.3. Urine toxicology screen was negative. Lactic acid 5.9. Renal ultrasound revealed no hydronephrosis, normal bilateral echogenicity. Patient admitted with diagnosis of diabetic ketoacidosis, acute kidney injury, hyponatremia, acute encephalopathy. CONSULTANTS: pulmonary /diabetes solutions specialist Dr. Paz ID specialist Dr. Lozada GI specialist dr Vickers psychiatrist microwave supervisor [place] [employer]RSE: Patient admitted to ICU and started on aggressive fluid resuscitation and insulin drip as per protocol. Endocrinology consult was requested. ID consult was requested to rule out any source of infection. Patient was started on empiric antibiotics. Renal parameters and electrolytes were closely monitored, nephrotoxins were avoided. Hyponatremia was pseudol in nature as the patient was severely hyperglycemic. When anion got was closed, insulin drip was discontinued. Blood sugar was managed as per microwave supervisor directions with long acting Levemir twice a day, pre-meal short acting insulin and sliding scale of insulin as needed. Hemoglobin A1c -11.8 ,clearly not at goal. Stemhole Borer closely followed with adjustment of insulin dosages. Stressed importance of compliance with anti-glycemic regimen at home. Patient had insulin and syringes at home, no prescription was necessary. Blood sugar eventually stabilized. With IV hydration, renal parameters eventually stabilized to baseline. BUN from initial 81 down to 39 and creatinine from 3.9 down to 2.0. Sodium 135. Chest x-ray revealed possible left lower lobe infiltrate, likely aspiration pneumonia. Patient was on broad-spectrum antibiotics as per ID specialist recommendations, status post treatment. No further pulmonary complaint: no cough no wheezing. Mild leukocytosis present for one day, resolved; afebrile. Urine culture revealed mixed gram-positive organisms. Blood culture were negative. Psychiatrist closely followed, diagnosed patient with encephalopathy, noncompliance and anxiety. Psychiatrist optimized psychiatric medication regimen. Acute toxic encephalopathy was likely due to diabetes ketoacidosis and resolved when blood sugar normalized. Patient had intractable nausea and vomiting with diarrhea. GI specialist closely followed. Patient has gastroparesis secondary to diabetes mellitus. Patient had EGD done in 2017, which revealed esophagitis. At this time GI procedure deferred. Hemoglobin and hematocrit were closely monitored. Patient received 1 unit of packed red blood cells. Prior to discharge, hemoglobin 9.1 hematocrit 27.1. Anemia workup revealed evidence of anemia of chronic disease. Check stool OB as outpatient. For gastroparesis, Zofran o provided on as needed basis and Reglan provided for persistent vomiting. Diet was advanced as tolerated. Patient was able to tolerate diet. Dietary supplements provided as per Inside Sales Person recommendation. DVT and GI prophylaxis provided. Patient was stable for discharge home with outpatient follow-up next week with a primary care provider. Reinforced compliance with medication regimen. FINAL DIAGNOSES: Diabetes ketoacidosis, resolved Acute renal failure/acute kidney injury secondary to volume depletion and hypotension Dehydration secondary to severe hyperglycemia, resolved Aspiration pneumonia Acute toxic encephalopathy secondary to diabetes ketoacidosis on chronic bipolar disorder, resolved Type 1 diabetes mellitus Noncompliance Severe protein calorie malnutrition Gastroparesis secondary to diabetes mellitus Intractable nausea, vomiting with diarrhea due to gastroparesis Anemia of chronic disease DISCHARGE MEDICATIONS: See Medication Reconciliation list. DISCHARGE INSTRUCTIONS: Patient was discharged home. Patient to follow-up with a primary care provider next week. Reinforced compliance with medication regimen at home. I have been assigned to dictate discharge summary for this account. I was not involved in the patient's management. Cailin Carpenter NP April 07, 2018 09:44
== END 2018-04-04 14:19 | disposition home or self-care (01) | DRG 420 ==
LOC: EDBD 11:13 → EMR 11:57 → ICU 12:04 → EDBEDREQSVC 13:13 → EDBEDREQ 13:13 → 4E 04-02 10:53
PROC: 06HN33Z Insertion of Infusion Device into Left Femoral Vein, Percutaneous Approach (ICD-10-PCS; principal; 2018-03-31)
PROC: 06HM33Z Insertion of Infusion Device into Right Femoral Vein, Percutaneous Approach (ICD-10-PCS; 2018-03-31)
DX: E10.10 Type 1 diabetes mellitus with ketoacidosis without coma (principal); N17.0 Acute kidney failure with tubular necrosis; J69.0 Pneumonitis due to inhalation of food and vomit; G92 Toxic encephalopathy; E43 Unspecified severe protein-calorie malnutrition; K31.84 Gastroparesis; E10.43 Type 1 diabetes mellitus with diabetic autonomic (poly)neuropathy; E86.0 Dehydration; Z79.4 Long term (current) use of insulin; E10.65 Type 1 diabetes mellitus with hyperglycemia; Z91.14 Patient's other noncompliance with medication regimen; Z68.1 Body mass index [BMI] 19.9 or less, adult; F31.9 Bipolar disorder, unspecified; F41.9 Anxiety disorder, unspecified; E87.1 Hypo-osmolality and hyponatremia; D64.9 Anemia, unspecified; I10 Essential (primary) hypertension; F14.10 Cocaine abuse, uncomplicated
CPT/HCPCS: 36415; 36600; 71045; 76770; 80048; 80053; 80307; 82009; 82378; 82607; 82728; 82746; 82803; 82962; 83036; 83540; 83550; 83605; 83735; 83880; 84100; 84439; 84443; 85007; 85025; 85044; 85610; 85730; 86850; 86900; 86901; 86920; 87040; 87081; 87086; 93005; 99291; J1815; S5561

== ENCOUNTER 2018-04-08 03:35 | Emergency (ER) | payer OTHER ==
[~2018-04-08] VITALS: Ht 167.6 cm; Wt 54.4 kg
--- NOTE | 2018-04-08 04:00 | Emergency Room Report ---
History of Present Illness General Chief Complaint: Chest Pain Source: Patient, Medical Record, EMS Present Illness HPI Is a 42-year-old female who has history insulin-dependent diabetes. She is a very poor historian and also noncompliant with her medication. She presents with chief complaint of chest pain and high blood sugar. She was just discharged from this hospital a few days ago. She has prolonged stay for DKA. She's been here numerous times. Patient complained of generalized weakness and chest pain. Onset for last couple days but no nausea no vomiting but no fever chills. Decreased appetite. Similar symptoms in the past. Allergies: Coded Allergies: No Known Allergies (Verified , NONE, 12/12/17) Patient History Past Medical History: see triage record, old chart reviewed, DM Past Surgical History: other Pertinent Family History: none Social History: Denies: smoking Now: No Immunizations: other Reviewed Nursing Documentation: PMH: Agreed; PSxH: Agreed Nursing Documentation-PMH Hx Cardiac Problems: No Hx Hypertension: Yes Hx Pacemaker: No Hx Asthma: No Hx COPD: No Hx Diabetes: Yes Hx Cancer: No Hx Gastrointestinal Problems: Yes - pancreatitis Hx Neurological Problems: Yes Hx Cerebrovascular Accident: Yes Hx Seizures: Yes Hx Vertigo: Yes Hx Dizziness: Yes Hx Headaches: Yes Hx Weakness: Yes Hx Fatigue: Yes Hx Neurologic Surgery: No Review of Systems Constitutional: Reports: weakness Eye: Denies: eye pain, blurred vision ENT: Denies: ear pain, nose congestion, throat swelling Respiratory: Denies: cough, shortness of breath Cardiovascular: Reports: chest pain; Denies: palpitations Gastrointestinal: Denies: abdominal pain, diarrhea, nausea, vomiting Musculoskeletal: Denies: back pain, joint pain Skin: Denies: rash Neurological: Denies: headache, numbness Endocrine: Denies: increased thirst, increased urine Hematologic/Lymphatic: Denies: easy bruising All Other Systems: negative except mentioned in HPI Physical Exam Vital Signs Date Time Temp Pulse Resp B/P (MAP) Pulse Ox O2 Delivery O2 Flow Rate FiO2 04/08/18 03:35 98.5 98 20 135/91 98 Room Air 98.4 vitals normal Sp02 EP Interpretation: reviewed, normal General Appearance: mild distress, cachetic, lethargic, thin, Chronically Ill Head: normocephalic, atraumatic Eyes: bilateral eye PERRL, bilateral eye EOMI ENT: hearing grossly normal, dry mucus membranes Neck: full range of motion, supple, no meningismus Respiratory: chest non-tender, lungs clear, normal breath sounds Cardiovascular #1: regular rate, rhythm, no murmur Gastrointestinal: normal bowel sounds, non tender, no mass, no organomegaly, no bruit, non-distended Musculoskeletal: back normal, normal range of motion Neurologic: grossly normal Psychiatric: mood/affect normal Skin: warm/dry Procedures Critical Care Time Critical Care Time Critical care is mandated in this patient who presented with critical hyperglycemia. Patient require my urgent intervention to attenuate the risks of metabolic collapse which may lead to cardiovascular collapse and . Critical care time is 35 minutes excluding any reportable procedure. Critical care time included evaluation, multiple reevaluation, looking at old charts, interpreting laboratory and diagnostic data, discussing case with patient and family and consultants, and charting. Medical Decision Making Diagnostic Impression: Primary Impression: Hyperglycemia due to type 1 diabetes mellitus Additional Impressions: Cocaine abuse Dehydration CIERA (acute kidney injury) ER Course Patient presents with severe hyperglycemia secondary to noncompliance and cocaine abuse. She is not in DKA. She's been hydrated here. No vomiting here. Once glucose less than 300, she can be discharged home. No evidence of infection. Lab Results Impression labs with hyperglycemia EKG Diagnostic Results Rate: normal Rhythm: NSR ST Segments: no acute changes Rhythm Strip Diag. Results Rhythm Strip Time: 04:00 EP Interpretation: yes Rate: 90 Rhythm: NSR, no PVC's, no ectopy Last Vital Signs Date Time Temp Pulse Resp B/P (MAP) Pulse Ox O2 Delivery O2 Flow Rate FiO2 18 03:35 98.5 98 20 135/91 98 Room Air 98.4 Status: improved Disposition: HOME, SELF-CARE Condition: Stable Referrals: [facility],REFERRING (PCP) Additional Instructions: Stop using drugs. Take your insulin. Follow-up with your doctor in 2-3 days. Return of worse. LETICIA MORENO M.D. April 08, 2018 04:00
[2018-04-08 04:05] LABS: BASOPHILS % (AUTO) 1.4 % (0.0-2.0); EOSINOPHILS % (AUTO) 1.2 % (0.0-3.0); HEMATOCRIT 30.7 % (37.0-47.0); HEMOGLOBIN 9.5 G/DL (12.0-16.0); LYMPHOCYTES % (AUTO) 19.6 % (20.0-45.0); MEAN CORPUSCULAR VOLUME 98 FL (80-99); MONOCYTES % (AUTO) 11.9 % (1.0-10.0); NEUTROPHILS % (AUTO) 65.9 % (45.0-75.0); PLATELET COUNT 582 K/UL (150-450); RED BLOOD COUNT 3.14 M/UL (4.20-5.40); RED CELL DISTRIBUTION WIDTH 13.8 % (11.6-14.8); WHITE BLOOD COUNT 10.4 K/UL (4.8-10.8)
[2018-04-08 04:14] VITALS: BP 157/93
[2018-04-08 04:22] LABS: ANION GAP 17 mmol/L (5-15); BLOOD UREA NITROGEN 26 mg/dL (7-18); CALCIUM 8.9 MG/DL (8.5-10.1); CARBON DIOXIDE 24 MMOL/L (21-32); CHLORIDE 87 MMOL/L (98-107); CREATININE 2.7 MG/DL (0.55-1.30); SODIUM 128 MMOL/L (136-145)
[2018-04-08 04:25] LABS: ALANINE AMINOTRANSFERASE 46 U/L (12-78); ALBUMIN 3.1 G/DL (3.4-5.0); ALBUMIN/GLOBULIN RATIO 0.6 (1.0-2.7); ALKALINE PHOSPHATASE 298 U/L (46-116); ASPARTATE AMINO TRANSFERASE 41 U/L (15-37); BILIRUBIN,TOTAL 0.4 MG/DL (0.2-1.0)
[2018-04-08 04:52] LABS: APPEARANCE,URINE CLEAR; BILIRUBIN, URINE NEGATIVE (NEGATIVE); COLOR,URINE PALE YELLOW; GLUCOSE, URINE (UA) 4+ (NEGATIVE); KETONES,URINE 2+ (NEGATIVE); LEUKOCYTE ESTERASE ,URINE NEGATIVE (NEGATIVE); NITRITE,URINE NEGATIVE (NEGATIVE); PH,URINE 6 (4.5-8.0); UROBILINOGEN,URINE NORMAL MG/DL (0.0-1.0)
[2018-04-08 05:02] LABS: PROTEIN,URINE NEGATIVE (NEGATIVE)
[2018-04-08 07:02] VITALS: BP 134/76
[2018-04-08 08:51] VITALS: BP 122/81
[2018-04-08 10:15] VITALS: BP 122/81
--- NOTE | 2018-04-08 16:32 | Cardiology Report ---
APPROVED REPORT EKG Measurement Heart [id number] MD [id number] Normal sinus rhythm Possible Left atrial enlargement Right superior axis deviation Pulmonary disease pattern Abnormal ECG
== END 2018-04-08 10:15 | disposition home or self-care (01) ==
LOC: EDBD 03:35 → EMR 03:48
DX: E10.65 Type 1 diabetes mellitus with hyperglycemia (principal); F14.10 Cocaine abuse, uncomplicated; E86.0 Dehydration; N17.9 Acute kidney failure, unspecified; Z91.14 Patient's other noncompliance with medication regimen; I10 Essential (primary) hypertension; Z86.73 Personal history of transient ischemic attack (TIA), and cerebral infarction without residual deficits
CPT/HCPCS: 36415; 80053; 80307; 81003; 81025; 82009; 82962; 83735; 85025; 93005; 96361; 96374; 96375; 99291; J1815

== ENCOUNTER 2018-04-15 23:21 | Inpatient (IN) | payer OTHER ==
[~2018-04-15] VITALS: Ht 162.6 cm; Wt 49.2 kg
--- NOTE | 2018-04-15 23:36 | Emergency Room Report ---
History of Present Illness General Chief Complaint: Abnormal Labs Source: Patient, EMS Present Illness HPI Patient is a 43-year-old female brought in by EMS after increased blood sugar. Patient was noted to have prior history of type 1 diabetes. Patient poorly compliant with medications. Patient was noted to have the markedly elevation of her blood sugar greater than 500 by EMS.The patient noted be admitted to the hospital multiple times after the being poorly compliant with her insulin regimen. Allergies: Coded Allergies: No Known Allergies (Verified , NONE, 04/15/18) Patient History Past Medical History: see triage record Last Menstrual Period: UNK Now: No Reviewed Nursing Documentation: PMH: Agreed; PSxH: Agreed Nursing Documentation-PMH Hx Cardiac Problems: No Hx Hypertension: Yes Hx Pacemaker: No Hx Asthma: No Hx COPD: No Hx Diabetes: Yes Hx Cancer: No Hx Gastrointestinal Problems: Yes - pancreatitis Hx Neurological Problems: Yes Hx Cerebrovascular Accident: Yes Hx Seizures: Yes Hx Vertigo: Yes Hx Dizziness: Yes Hx Headaches: Yes Hx Weakness: Yes Hx Fatigue: Yes Hx Neurologic Surgery: No Review of Systems All Other Systems: negative except mentioned in HPI Physical Exam Vital Signs Date Time Temp Pulse Resp B/P (MAP) Pulse Ox O2 Delivery O2 Flow Rate FiO2 04/15/18 23:17 98.2 92 16 125/91 94 Room Air 98.2 Sp02 EP Interpretation: reviewed, normal General Appearance: normal inspection, well appearing, no apparent distress, alert, GCS 15, non-toxic, thin, Chronically Ill Head: atraumatic ENT: normal ENT inspection, hearing grossly normal, normal voice Neck: normal inspection, full range of motion, supple, no bony tend Respiratory: normal inspection, lungs clear, normal breath sounds, no respiratory distress, no retraction, no wheezing Cardiovascular #1: regular rate, rhythm, no edema Gastrointestinal: normal inspection, normal bowel sounds, non tender, soft, no guarding, no hernia Genitourinary: no CVA tenderness Musculoskeletal: normal inspection, back normal, normal range of motion Neurologic: normal inspection, alert, oriented x3, responsive, hot end operator III-XII nml as tested, speech normal Psychiatric: normal inspection, judgement/insight normal, mood/affect normal Skin: normal inspection, normal color, no rash Procedures Critical Care Time Critical Care Time Patient had a critical medical condition which untreated could potentially result in life or limb threatening injury. Total critical care time excluding procedures approximately 45 minutes. Medical Decision Making Diagnostic Impression: Primary Impression: Type 1 diabetes mellitus Additional Impression: Uncontrolled diabetes mellitus ER Course The patient presented for uncontrolled blood sugar. Differential diagnosis included was not limited to diabetic ketoacidosis, nonketotic hyperosmolar coma , hypokalemia, and compliance among others.Because of complexity of patient's case laboratory testing and imaging studies were ordered. The initial laboratory testing showed a markedly elevated blood sugar without evidence of acidosis. The patient started on IV fluids as well as IV insulin the initial potassium was noted to be adequate.The patient was started on insulin drip Dr. Ricardo was contacted for inpatient management due to need for inpatient monitoring and treatment. Labs Test 04/16/18 00:01 04/16/18 01:10 04/16/18 01:48 White Blood Count 8.9 K/UL (4.8-10.8) Red Blood Count 3.51 M/UL (4.20-5.40) Hemoglobin 11.0 G/DL (12.0-16.0) Hematocrit 35.3 % (37.0-47.0) Mean Corpuscular Volume 100 FL (80-99) Mean Corpuscular Hemoglobin 31.4 PG (27.0-31.0) Mean Corpuscular Hemoglobin Concent 31.2 G/DL (32.0-36.0) Red Cell Distribution Width 15.4 % (11.6-14.8) Platelet Count 278 K/UL (150-450) Mean Platelet Volume 8.4 FL (6.5-10.1) Neutrophils (%) (Auto) 77.3 % (45.0-75.0) Lymphocytes (%) (Auto) 19.2 % (20.0-45.0) Monocytes (%) (Auto) 2.2 % (1.0-10.0) Eosinophils (%) (Auto) 0.7 % (0.0-3.0) Basophils (%) (Auto) 0.5 % (0.0-2.0) Sodium Level 123 MMOL/L (136-145) Potassium Level 4.2 MMOL/L (3.5-5.1) Chloride Level 85 MMOL/L (98-107) Carbon Dioxide Level 30 MMOL/L (21-32) Anion Gap 9 mmol/L (5-15) Blood Urea Nitrogen 15 mg/dL (7-18) Creatinine 2.5 MG/DL (0.55-1.30) Estimat Glomerular Filtration Rate 25.7 mL/min (>60) Glucose Level 1178 MG/DL (74-106) Calcium Level 9.2 MG/DL (8.5-10.1) Magnesium Level 1.6 MG/DL (1.8-2.4) Total Bilirubin 0.2 MG/DL (0.2-1.0) Aspartate Amino Transf (AST/SGOT) 21 U/L (15-37) Alanine Aminotransferase (ALT/SGPT) 30 U/L (12-78) Alkaline Phosphatase 273 U/L (46-116) Total Protein 8.8 G/DL (6.4-8.2) Albumin 3.6 G/DL (3.4-5.0) Globulin 5.2 g/dL Albumin/Globulin Ratio 0.7 (1.0-2.7) Acetone Level Positive-small (NEGATIVE) Urine Color Pale yellow Urine Appearance Clear Urine pH 7 (4.5-8.0) Urine Specific [place] 1.005 (1.005-1.035) Urine Protein Negative (NEGATIVE) Urine Glucose (UA) 4+ (NEGATIVE) Urine Ketones Negative (NEGATIVE) Urine Occult Blood Negative (NEGATIVE) Urine Nitrite Negative (NEGATIVE) Urine Bilirubin Negative (NEGATIVE) Urine Urobilinogen Normal MG/DL (0.0-1.0) Urine Leukocyte Esterase Negative (NEGATIVE) Arterial Blood pH 7.399 (7.350-7.450) Arterial Blood Partial Pressure CO2 43.0 mmHg (35.0-45.0) Arterial Blood Partial Pressure O2 86.7 mmHg (75.0-100.0) Arterial Blood HCO3 26.0 mmol/L (22.0-26.0) Arterial Blood Oxygen Saturation 95.8 % (92.0-98.0) Arterial Blood Base Excess 1.0 Michael Test Positive Last Vital Signs Date Time Temp Pulse Resp B/P (MAP) Pulse Ox O2 Delivery O2 Flow Rate FiO2 04/15/18 23:17 98.2 92 16 125/91 94 Room Air 98.2 Status: unchanged Disposition: ADMITTED INPATIENT Condition: Serious Dhaval King MD April 15, 2018 23:36
[2018-04-15 23:40] VITALS: BP 105/59
[2018-04-16] VITALS (9 sets, daily range): BP systolic 90–150; BP diastolic 59–84
[2018-04-16 00:16] LABS: BASOPHILS % (AUTO) 0.5 % (0.0-2.0); EOSINOPHILS % (AUTO) 0.7 % (0.0-3.0); HEMATOCRIT 35.3 % (37.0-47.0); LYMPHOCYTES % (AUTO) 19.2 % (20.0-45.0); MEAN CORPUSCULAR VOLUME 100 FL (80-99); MONOCYTES % (AUTO) 2.2 % (1.0-10.0); NEUTROPHILS % (AUTO) 77.3 % (45.0-75.0); PLATELET COUNT 278 K/UL (150-450); RED BLOOD COUNT 3.51 M/UL (4.20-5.40); RED CELL DISTRIBUTION WIDTH 15.4 % (11.6-14.8); WHITE BLOOD COUNT 8.9 K/UL (4.8-10.8)
[2018-04-16 00:24] LABS: ANION GAP 9 mmol/L (5-15); BLOOD UREA NITROGEN 15 mg/dL (7-18); CALCIUM 9.2 MG/DL (8.5-10.1); CARBON DIOXIDE 30 MMOL/L (21-32); CHLORIDE 85 MMOL/L (98-107); CREATININE 2.5 MG/DL (0.55-1.30); POTASSIUM 4.2 MMOL/L (3.5-5.1); SODIUM 123 MMOL/L (136-145)
[2018-04-16 00:25] LABS: ALANINE AMINOTRANSFERASE 30 U/L (12-78); ALBUMIN 3.6 G/DL (3.4-5.0); ALBUMIN/GLOBULIN RATIO 0.7 (1.0-2.7); ALKALINE PHOSPHATASE 273 U/L (46-116); ASPARTATE AMINO TRANSFERASE 21 U/L (15-37); BILIRUBIN,TOTAL 0.2 MG/DL (0.2-1.0)
[2018-04-16 01:26] LABS: APPEARANCE,URINE CLEAR; BILIRUBIN, URINE NEGATIVE (NEGATIVE); COLOR,URINE PALE YELLOW; GLUCOSE, URINE (UA) 4+ (NEGATIVE); KETONES,URINE NEGATIVE (NEGATIVE); LEUKOCYTE ESTERASE ,URINE NEGATIVE (NEGATIVE); NITRITE,URINE NEGATIVE (NEGATIVE); PH,URINE 7 (4.5-8.0); PROTEIN,URINE NEGATIVE (NEGATIVE); UROBILINOGEN,URINE NORMAL MG/DL (0.0-1.0)
[2018-04-16] MEDS ORDERED: Morphine Sulfate 4mg/ml Inj IVP PRN (04:45)
[2018-04-16] MEDS ORDERED: Insulin Rate Change 1 Each MISC PRN (05:00)
[2018-04-16 06:10] LABS: BASOPHILS % (AUTO) 1.1 % (0.0-2.0); EOSINOPHILS % (AUTO) 0.9 % (0.0-3.0); HEMATOCRIT 28.8 % (37.0-47.0); HEMOGLOBIN 9.6 G/DL (12.0-16.0); LYMPHOCYTES % (AUTO) 36.5 % (20.0-45.0); MEAN CORPUSCULAR VOLUME 97 FL (80-99); MONOCYTES % (AUTO) 3.1 % (1.0-10.0); NEUTROPHILS % (AUTO) 58.5 % (45.0-75.0); PLATELET COUNT 308 K/UL (150-450); RED BLOOD COUNT 2.98 M/UL (4.20-5.40); RED CELL DISTRIBUTION WIDTH 14.3 % (11.6-14.8); WHITE BLOOD COUNT 6.3 K/UL (4.8-10.8)
[2018-04-16 06:47] LABS: ALANINE AMINOTRANSFERASE 25 U/L (12-78); ALBUMIN 3.1 G/DL (3.4-5.0); ALBUMIN/GLOBULIN RATIO 0.7 (1.0-2.7); ALKALINE PHOSPHATASE 227 U/L (46-116); ANION GAP 10 mmol/L (5-15); ASPARTATE AMINO TRANSFERASE 12 U/L (15-37); BILIRUBIN,TOTAL 0.2 MG/DL (0.2-1.0); BLOOD UREA NITROGEN 13 mg/dL (7-18); CALCIUM 8.7 MG/DL (8.5-10.1); CARBON DIOXIDE 28 MMOL/L (21-32); CHLORIDE 93 MMOL/L (98-107); CHOLESTEROL 166 MG/DL (< 200); CREATININE 2.3 MG/DL (0.55-1.30); HDL CHOLESTEROL 31 MG/DL (40-60); POTASSIUM 3.5 MMOL/L (3.5-5.1); SODIUM 131 MMOL/L (136-145); TRIGLYCERIDES 166 MG/DL (30-150)
[2018-04-16] MEDS: Pantoprazole Inj IVP SCH (08:19)
[2018-04-16] MEDS: Heparin 5000 units/ml inj SUBQ SCH ×2 (08:20→21:10)
--- NOTE | 2018-04-16 08:56 | History & Physical ---
History and Physical History & Physicial Source of info: patient and EMR HISTORY OF PRESENT ILLNESS: The patient is a 42-year-old female with a history of diabetes and multiple diabetic ketoacidosis episodes in the past with admissions. She then again presents once more in confused state along with severely elevated serum glucose of over 1000. The patient was agitated. She was aggressively hydrated and transferred to intensive care unit once again to start an insulin drip and maintain euglycemia and hydrate the patient. The patient is currently confused, disoriented, and as such history had to be obtained through bedside discussion with nurse and electronic chart review. PAST MEDICAL HISTORY: Multiple DKA's, uncontrolled DM, Non compliance with mediation . The patient is answering only to some questions. PAST SURGICAL HISTORY: Denies. ALLERGIES: No known drug allergies. REVIEW OF SYSTEMS: limited evaluation. denies chest pain, sob, diharrea, abd pain . PHYSICAL EXAMINATION: VITAL SIGNS: Blood pressure 156/70, respiratory rate 26, 100% oxygen saturation on room air, and pulse of 87. GENERAL: The patient is awake, confused, and agitated. HEENT: Extraocular muscles intact. No lymphadenopathy noted. CARDIOVASCULAR: S1 and S2. No rubs or gallops. PULMONARY: Clear to auscultation bilaterally with mild upper rhonchi. ABDOMEN: Nondistended and nontender. EXTREMITIES: No edema noted with fair pedal pulses. LABORATORY DATA: Laboratories dated 04/15/18, reveiwed ASSESSMENT AND PLAN: 1. Hyponatremia, at this time pseudo in nature as the patient is severely hyperglycemic. We will continue to hydrate the patient and with pseudohyponatremia, the correction will take place over time. 2. Acute kidney injury. At this time, secondary to severe volume depletion from severe hyperglycemia, the patient is being aggressively hydrated. Renal ultrasound has been ordered along with urine cultures. 3. Severe hyperglycemia/diabetic ketoacidosis. At this time, Algorithm insulin drip #1 has been initiated. We will also look for any source of infection with urine and blood cultures along with a urine drug screen. 4. Acute encephalopathy most likely secondary to component of severe hyperglycemia. We will continue to hydrate the patient. At this time, we will try to decrease serum glucose in a slow careful manner due to the severe nature of the level at almost 1700. 5. At this time, Endocrinology has been consulted, Dr. Alejo, to help and assist with the management of her severe hyperglycemia and diabetic ketoacidosis as well Dr. Paz will be consulted for intensive care unit management. and Dr Aguilar Nephrology, 6. DVT prophylaxsis- with heparin subq Emigdio Ricardo MD April 16, 2018 08:56
[2018-04-16] MEDS ORDERED: Sodium Chloride 500ML 500 ML IV ONE (10:00)
--- NOTE | 2018-04-16 10:25 | Pulmonolgy Critical Care Note ---
Critical Care - Asmt/Plan Problems: (1) DKA (diabetic ketoacidoses) (2) Non compliance with medical treatment (3) CIERA (acute kidney injury) (4) Intractable nausea and vomiting Respiratory: monitor respiratory rate, adjust FIO2, CXR Cardiac: continue to monitor HR/BP Renal: F/U I&O, keep IV fluid, check electrolytes Gastrointestinal: continue feedings/current rate Endocrine: check TSH, start insulin drip Neurologic: PRN Ativan, PRN Morphine Prophylaxis: Protonix Notes Reviewed: security monitor, cardio, renal Critical Care - Objective Last 24 Hour Vital Signs Date Time Temp Pulse Resp B/P (MAP) Pulse Ox O2 Delivery O2 Flow Rate FiO2 04/16/18 05:00 85 04/16/18 04:35 98.2 74 21 122/72 100 Room Air 98.2 04/16/18 04:10 98.2 74 21 122/72 100 Room Air 98.2 04/16/18 03:40 72 22 117/74 100 Room Air 04/16/18 02:00 88 15 133/71 100 Room Air 04/16/18 01:05 88 23 127/70 98 Room Air 04/15/18 23:40 98.1 94 17 105/59 96 Room Air 98.1 04/15/18 23:17 98.2 92 16 125/91 94 Room Air 98.2 Status: awake Condition: grave HEENT: atraumatic Neck: full ROM Lungs: clear Heart: HR/BP stable, HR/BP unstable Abdomen: soft, active bowel sounds Extremities: no C/C/E, edema Accucheck: 59 Critical Care - Subjective ROS Limited/Unobtainable: No ICU Day: 1 Condition: critical EKG Rhythm: Sinus Rhythm Fluids: NS 100 cc/hour I&O: Intake and Output 04/15/18 04/16/18 19:00 07:00 Intake Total 1470 ml Output Total 300 ml Balance 1170 ml Intake IV Total 1470 ml Output Urine Total 300 ml # Voids 2 Labs: Laboratory Tests Test 04/16/18 00:01 04/16/18 01:10 04/16/18 01:48 04/16/18 05:15 White Blood Count 8.9 K/UL (4.8-10.8) 6.3 K/UL (4.8-10.8) Red Blood Count 3.51 M/UL (4.20-5.40) L 2.98 M/UL (4.20-5.40) L Hemoglobin 11.0 G/DL (12.0-16.0) L 9.6 G/DL (12.0-16.0) L Hematocrit 35.3 % (37.0-47.0) L 28.8 % (37.0-47.0) L Mean Corpuscular Volume 100 FL (80-99) H 97 FL (80-99) Mean Corpuscular Hemoglobin 31.4 PG (27.0-31.0) H 32.2 PG (27.0-31.0) H Mean Corpuscular Hemoglobin Concent 31.2 G/DL (32.0-36.0) L 33.4 G/DL (32.0-36.0) Red Cell Distribution Width 15.4 % (11.6-14.8) H 14.3 % (11.6-14.8) Platelet Count 278 K/UL (150-450) 308 K/UL (150-450) Mean Platelet Volume 8.4 FL (6.5-10.1) 7.7 FL (6.5-10.1) Neutrophils (%) (Auto) 77.3 % (45.0-75.0) H 58.5 % (45.0-75.0) Lymphocytes (%) (Auto) 19.2 % (20.0-45.0) L 36.5 % (20.0-45.0) Monocytes (%) (Auto) 2.2 % (1.0-10.0) 3.1 % (1.0-10.0) Eosinophils (%) (Auto) 0.7 % (0.0-3.0) 0.9 % (0.0-3.0) Basophils (%) (Auto) 0.5 % (0.0-2.0) 1.1 % (0.0-2.0) Sodium Level 123 MMOL/L (136-145) L 131 MMOL/L (136-145) L Potassium Level 4.2 MMOL/L (3.5-5.1) 3.5 MMOL/L (3.5-5.1) Chloride Level 85 MMOL/L (98-107) L 93 MMOL/L (98-107) L Carbon Dioxide Level 30 MMOL/L (21-32) 28 MMOL/L (21-32) Anion Gap 9 mmol/L (5-15) 10 mmol/L (5-15) Blood Urea Nitrogen 15 mg/dL (7-18) 13 mg/dL (7-18) Creatinine 2.5 MG/DL (0.55-1.30) H 2.3 MG/DL (0.55-1.30) H Estimat Glomerular Filtration Rate 25.7 mL/min (>60) 28.4 mL/min (>60) Glucose Level 1178 MG/DL (74-106) *H 724 MG/DL (74-106) #*H Calcium Level 9.2 MG/DL (8.5-10.1) 8.7 MG/DL (8.5-10.1) Magnesium Level 1.6 MG/DL (1.8-2.4) L Total Bilirubin 0.2 MG/DL (0.2-1.0) 0.2 MG/DL (0.2-1.0) Aspartate Amino Transf (AST/SGOT) 21 U/L (15-37) 12 U/L (15-37) L Alanine Aminotransferase (ALT/SGPT) 30 U/L (12-78) 25 U/L (12-78) Alkaline Phosphatase 273 U/L (46-116) H 227 U/L (46-116) H Total Protein 8.8 G/DL (6.4-8.2) H 7.8 G/DL (6.4-8.2) Albumin 3.6 G/DL (3.4-5.0) 3.1 G/DL (3.4-5.0) L Globulin 5.2 g/dL 4.7 g/dL Albumin/Globulin Ratio 0.7 (1.0-2.7) L 0.7 (1.0-2.7) L Acetone Level Positive-small (NEGATIVE) Urine Color Pale yellow Urine Appearance Clear Urine pH 7 (4.5-8.0) Urine Specific Ruby 1.005 (1.005-1.035) Urine Protein Negative (NEGATIVE) Urine Glucose (UA) 4+ (NEGATIVE) H Urine Ketones Negative (NEGATIVE) Urine Occult Blood Negative (NEGATIVE) Urine Nitrite Negative (NEGATIVE) Urine Bilirubin Negative (NEGATIVE) Urine Urobilinogen Normal MG/DL (0.0-1.0) Urine Leukocyte Esterase Negative (NEGATIVE) Arterial Blood pH 7.399 (7.350-7.450) Arterial Blood Partial Pressure CO2 43.0 mmHg (35.0-45.0) Arterial Blood Partial Pressure O2 86.7 mmHg (75.0-100.0) Arterial Blood HCO3 26.0 mmol/L (22.0-26.0) Arterial Blood Oxygen Saturation 95.8 % (92.0-98.0) Arterial Blood Base Excess 1.0 Michael Test Positive Hemoglobin A1c 11.3 % (4.3-6.0) H Troponin I Pending Triglycerides Level 166 MG/DL (30-150) H Cholesterol Level 166 MG/DL (< 200) LDL Cholesterol 99 mg/dL (<100) HDL Cholesterol 31 MG/DL (40-60) L Cholesterol/HDL Ratio 5.4 (3.3-4.4) H Fred Paz MD April 16, 2018 10:25
[2018-04-16] MEDS ORDERED: Lidocaine 1% Plain 30 ml INJ PRN (10:30)
[2018-04-16] MEDS ORDERED: Heparin 2000 units/Ns 1000ml INJ PRN (10:30)
[2018-04-16] MEDS ORDERED: D5 1/2NS 1,000 ML IV SCH (11:00)
--- NOTE | 2018-04-16 13:23 | Consultation ---
Consult Note Consult Note asked to eval for renal failure Patient is a 43-year-old female brought in by EMS after increased blood sugar. Patient was noted to have prior history of type 1 diabetes. Patient poorly compliant with medications. Patient was noted to have the markedly elevation of her blood sugar greater than 500 by EMS.The patient noted be admitted to the hospital multiple times after the being poorly compliant with her insulin regimen. Hx Hypertension: Yes Hx Diabetes: Yes Hx Gastrointestinal Problems: Yes - pancreatitis Hx Neurological Problems: Yes Hx Cerebrovascular Accident: Yes Hx Seizures: Yes Hx Vertigo: Yes Hx Dizziness: Yes Hx Headaches: Yes Hx Weakness: Yes Hx Fatigue: Yes interviewed examined data reviewed Assessment/Plan renal failure ? acute , dehydration, ? 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
[2018-04-16] MEDS ORDERED: Zolpidem 5mg tab ORAL PRN (19:45)
[2018-04-16] MEDS ORDERED: Dyna-Hex 2% Top Sol 2oz TOPIC SCH (20:00)
[2018-04-16] MEDS: NovoLOG Insulin Flexpen SUBQ SCH (21:12)
[2018-04-16] MEDS: Levemir Flexpen SUBQ SCH (21:12)
--- NOTE | 2018-04-16 22:45 | Consultation ---
DATE OF CONSULTATION: 04/16/2018 NEPHROLOGY CONSULTATION CONSULTING PHYSICIAN: Bertin Alejo M.D. REFERRING PHYSICIAN: Emigdio Ricardo M.D. REASON FOR CONSULTATION: Diabetic ketoacidosis. HISTORY OF PRESENT ILLNESS: This is one of numerous admissions of the patient to the hospital with DKA. She was recently admitted and discharged in stable condition and then came back to the hospital with diabetic ketoacidosis with glucose of 1178 and creatinine of 2.5. Anion gap was surprisingly 9. The patient was admitted to the floor and transferred onto the ICU for observation and treatment. I was called to manage diabetes. PAST MEDICAL HISTORY: 1. Type 1 diabetes. 2. Gastroparesis. 3. Hypertension. 4. Chronic kidney disease. FAMILY HISTORY: Noncontributory. SOCIAL HISTORY: No smoking, alcohol, or drug use. REVIEW OF SYSTEMS: As per HPI. PHYSICAL EXAMINATION: GENERAL: She is awake. VITAL SIGNS: Blood pressure is 140/80, pulse 70, temperature 98.6, and respiratory rate of 18. HEENT: Pupils are equal and reactive to light and accommodation. Sclerae anicteric. NECK: No JVD. No thyromegaly. LUNGS: Clear. HEART: Regular rate and rhythm. ABDOMEN: Positive bowel sounds. EXTREMITIES: No clubbing or cyanosis. Positive for edema. LABORATORY VALUES: Sodium 131, potassium 3.5, chloride 92, bicarbonate 22, BUN 32, creatinine 2.3, and glucose of 725. A1c of 11.2. DIAGNOSES: 1. Type 1 diabetes, out of control. 2. Extreme hyperglycemia. 3. Renal failure. PLAN: 1. Discontinue the insulin drip and start the patient on Levemir 10 units b.i.d. and NovoLog sliding scale and NovoLog 5 units before each meal. 2. Further adjustment according to blood glucose values. Bertin Alejo M.D. DR: ANTONI JOB#: [id number] CC:
[2018-04-17] VITALS (18 sets, daily range): BP systolic 92–176; BP diastolic 60–103
[2018-04-17 06:01] LABS: BASOPHILS % (AUTO) 1.2 % (0.0-2.0); EOSINOPHILS % (AUTO) 1.1 % (0.0-3.0); HEMATOCRIT 25.6 % (37.0-47.0); HEMOGLOBIN 8.9 G/DL (12.0-16.0); LYMPHOCYTES % (AUTO) 48.8 % (20.0-45.0); MEAN CORPUSCULAR VOLUME 93 FL (80-99); MONOCYTES % (AUTO) 4.4 % (1.0-10.0); NEUTROPHILS % (AUTO) 44.6 % (45.0-75.0); PLATELET COUNT 252 K/UL (150-450); RED BLOOD COUNT 2.75 M/UL (4.20-5.40); RED CELL DISTRIBUTION WIDTH 14.1 % (11.6-14.8); WHITE BLOOD COUNT 6.4 K/UL (4.8-10.8)
[2018-04-17 06:29] LABS: ALANINE AMINOTRANSFERASE 21 U/L (12-78); ALBUMIN 2.4 G/DL (3.4-5.0); ALBUMIN/GLOBULIN RATIO 0.6 (1.0-2.7); ALKALINE PHOSPHATASE 163 U/L (46-116); ANION GAP 7 mmol/L (5-15); ASPARTATE AMINO TRANSFERASE 17 U/L (15-37); BILIRUBIN,TOTAL 0.2 MG/DL (0.2-1.0); BLOOD UREA NITROGEN 9 mg/dL (7-18); CALCIUM 7.9 MG/DL (8.5-10.1); CARBON DIOXIDE 28 MMOL/L (21-32); CHLORIDE 105 MMOL/L (98-107); CREATININE 1.5 MG/DL (0.55-1.30); FERRITIN 129 NG/ML (8-388); PHOSPHORUS 2.9 MG/DL (2.5-4.9); POTASSIUM 3.1 MMOL/L (3.5-5.1); SODIUM 140 MMOL/L (136-145)
[2018-04-17] MEDS: NovoLOG Insulin Flexpen SUBQ SCH ×7 (06:30→20:32)
[2018-04-17 06:32] LABS: % IRON SATURATION 31 % (15-50); IRON 48 ug/dL (50-175); TOTAL IRON BINDING CAPACITY 154 ug/dL (250-450)
[2018-04-17 06:36] LABS: CREATINE KINASE 26 U/L (26-308); GAMMA GLUTAMYL TRANSPEPTIDASE 192 U/L (5-85)
--- NOTE | 2018-04-17 06:46 | General Progress Note ---
Assessment/Plan Problem List: (1) Type 1 diabetes mellitus ICD Codes: E10.9 - Type 1 diabetes mellitus without complications SNOMED: 85556119 (2) DKA (diabetic ketoacidoses) ICD Codes: E13.10 - Other specified diabetes mellitus with ketoacidosis without coma SNOMED: 61709326, 522584439 (3) HTN (hypertension) ICD Codes: I10 - Essential (primary) hypertension SNOMED: 53026115 Assessment/Plan continue Levemir 10 units bid continue Novolog 5 units ac tid + NISS Subjective ROS Limited/Unobtainable: Yes Allergies: Coded Allergies: No Known Allergies (Verified , NONE, 04/15/18) Subjective events noted Objective Last 24 Hour Vital Signs Date Time Temp Pulse Resp B/P (MAP) Pulse Ox O2 Delivery O2 Flow Rate FiO2 04/17/18 05:00 64 14 120/80 100 Room Air 04/17/18 04:00 65 04/17/18 04:00 97.8 64 14 109/78 100 Room Air 97.8 04/17/18 03:00 64 14 140/91 100 Room Air 04/17/18 02:00 63 14 97/74 100 Room Air 04/17/18 01:00 69 14 128/88 100 Room Air 04/17/18 00:00 77 04/17/18 00:00 98.0 68 14 92/60 96 Room Air 98.0 04/16/18 23:00 80 14 90/59 100 Room Air 04/16/18 22:00 86 15 138/79 100 Room Air 04/16/18 21:00 80 14 150/84 100 Room Air 04/16/18 20:00 80 14 128/82 100 Room Air 04/16/18 20:00 73 04/16/18 19:00 97.8 80 13 140/79 99 Room Air 97.8 04/16/18 16:00 65 04/16/18 12:00 63 Intake and Output 04/16/18 04/17/18 19:00 07:00 Intake Total 2036.8 ml 1400 ml Output Total 200 ml 250 ml Balance 1836.8 ml 1150 ml Intake Oral 200 ml 300 ml IV Total 1836.8 ml 1100 ml Output Urine Total 200 ml 250 ml # Voids 4 2 # Bowel Movements 1 Laboratory Tests 04/17/18 04:30: White Blood Count 6.4, Red Blood Count 2.75L, Hemoglobin 8.9L, Hematocrit 25.6L , Mean Corpuscular Volume 93, Mean Corpuscular Hemoglobin 32.3H, Mean Corpuscular Hemoglobin Concent 34.7, Red Cell Distribution Width 14.1, Platelet Count 252, Mean Platelet Volume 7.7, Neutrophils (%) (Auto) 44.6L, Lymphocytes ( %) (Auto) 48.8H, Monocytes (%) (Auto) 4.4, Eosinophils (%) (Auto) 1.1, Basophils (%) (Auto) 1.2, Sodium Level 140, Potassium Level 3.1L, Chloride Level 105, Carbon Dioxide Level 28, Anion Gap 7, Blood Urea Nitrogen 9, Creatinine 1.5H, Estimat Glomerular Filtration Rate 46.4, Glucose Level 141#H, Uric Acid 5.1, Calcium Level 7.9L, Phosphorus Level 2.9, Magnesium Level 1.2L, Iron Level 48L, Total Iron Binding Capacity 154L, Percent Iron Saturation 31, Unsaturated Iron Binding 106L, Ferritin 129, Total Bilirubin 0.2, Gamma Glutamyl Transpeptidase 192H, Aspartate Amino Transf (AST/SGOT) 17, Alanine Aminotransferase (ALT/SGPT) 21, Alkaline Phosphatase 163H, Total Creatine Kinase 26, Pro-B-Type Natriuretic Peptide 125, Total Protein 6.3L, Albumin 2.4L , Globulin 3.9, Albumin/Globulin Ratio 0.6L, Lipase 28L, Vitamin B12 Level [ Pending], Folate [Pending], Thyroid Stimulating Hormone (TSH) 1.216 Height (Feet): 5 Height (Inches): 4.00 Weight (Pounds): 102 General Appearance: no apparent distress Neck: normal alignment Cardiovascular: normal rate Abdomen: normal bowel sounds Pelvis: normal external exam Edema: no edema noted Arm (L), no edema noted Arm (R), no edema noted Leg (L), no edema noted Leg (R), no edema noted Pedal (L), no edema noted Pedal (R), no edema noted Generalized Objective Current Medications Medications (Trade) Dose Ordered Sig/Mateo Route PRN Reason Start Time Stop Time Status Last Admin Dose Admin Chlorhexidine Gluconate (Mara-Hex 2%) 1 applic DAILY@1999 TOPIC 04/16/18 20:00 05/16/18 19:59 04/16/18 19:43 Dextrose (Dextrose 50%) 25 ml STAT PRN IV Hypoglycemia 04/16/18 18:45 05/16/18 18:44 Dextrose (Dextrose 50%) 50 ml STAT PRN IV Hypoglycemia 04/16/18 18:45 05/16/18 18:44 Heparin Sodium (Porcine) (Heparin 5000 units/ml) 5,000 units EVERY 12 HOURS SUBQ 04/16/18 09:00 05/16/18 08:59 04/16/18 21:10 Insulin Aspart (NovoLOG) BEFORE MEALS AND HS SUBQ 04/16/18 21:00 05/16/18 20:59 04/16/18 21:12 Insulin Aspart (NovoLOG) 5 units NOVOTIAC SUBQ 04/17/18 06:30 05/17/18 06:29 Insulin Detemir (Levemir) 10 units Q12HR SUBQ 04/16/18 21:00 05/16/18 20:59 04/16/18 21:12 Metoclopramide HCl (Reglan) 5 mg THREE TIMES A DAY ORAL 04/16/18 18:00 05/16/18 17:59 04/16/18 17:53 Morphine Sulfate (Morphine Sulfate) 2 mg Q8H PRN IVP For Pain 04/16/18 04:45 04/23/18 04:44 Pantoprazole (Protonix) 40 mg DAILY IVP 04/16/18 09:00 05/16/18 08:59 04/16/18 08:19 Sodium Chloride 1,000 ml @ 100 mls/hr Q10H IV 04/16/18 18:45 05/16/18 18:44 04/17/18 04:57 Zolpidem Tartrate (Ambien) 5 mg HSPRN PRN ORAL Insomnia 04/16/18 19:45 04/23/18 19:44 04/16/18 20:07 Item Value Date Time Bedside Blood Glucose 106 mg/dl 04/17/18 0630 Bedside Blood Glucose 330 mg/dl H 04/16/18 2112 Bedside Blood Glucose 70 mg/dl 04/16/18 1319 Bedside Blood Glucose 50 mg/dl L 04/16/18 1046 Bedside Blood Glucose 464 mg/dl H 04/16/18 0635 FRANCES BRADLEY April 17, 2018 06:46
--- NOTE | 2018-04-17 09:56 | Diagnostic Imaging Report ---
Indications: Needs long-term IV access Technique: Procedure performed at bedside by Dr. Barnett. Procedural timeout performed. Ultrasound confirms patent compressible left brachial or basilic vein. Total sterile technique, including sterile probe cover and sterile gel, sterile gloves, hand hygiene, hat, mask,, sterile gown, large sterile drape, and preparation with 2% chlorhexidine utilized. Local anesthesia with 1% lidocaine. Under real-time ultrasound guidance, puncture brachial or basilic vein using 21-gauge needle, passage 0.018 guidewire, exchange for 5 Slovak peel-away sheath. 5 Slovak Bard dual-lumen power PICC was inserted through the peel-away sheath. Peel-away sheath and guidewire removed. Catheter fixed to the skin. Both catheter ports aspirated and flushed. Patient tolerated procedure well, without immediate complication. Followup chest x-ray obtained, documents catheter tip position at the high right atrium Impression: Successful bedside placement of right arm PICC under sonographic guidance, as described above.
[2018-04-17] MEDS: Pantoprazole Inj IVP SCH (10:03)
[2018-04-17] MEDS: Heparin 5000 units/ml inj SUBQ SCH ×2 (10:05→20:30)
[2018-04-17] MEDS: Levemir Flexpen SUBQ SCH ×2 (10:06→20:33)
--- NOTE | 2018-04-17 11:13 | General Progress Note ---
Assessment/Plan Status: stable Assessment/Plan S: I am ok O: appears comfortable, in ICU, denies pain PHYSICAL EXAMINATION: GENERAL: The patient is awake, confused, and agitated. HEENT: Extraocular muscles intact. No lymphadenopathy noted. CARDIOVASCULAR: S1 and S2. No rubs or gallops. PULMONARY: Clear to auscultation bilaterally with mild upper rhonchi. ABDOMEN: Nondistended and nontender. EXTREMITIES: No edema noted with fair pedal pulses. Meds: reviewed and reconciled in the chart ASSESSMENT AND PLAN: 1 . Acute kidney injury. 3. Severe hyperglycemia/diabetic ketoacidosis. At this time, Algorithm insulin drip #1 has been initiated. We will also look for any source of infection with urine and blood cultures along with a urine drug screen. 4. Acute encephalopathy : resolved 5. Hypokalemia 6. DVT prophylaxsis- with heparin subq Plan: supply electrolytes transfer out from ICU will monitor Subjective Allergies: Coded Allergies: No Known Allergies (Verified , NONE, 04/15/18) Objective Last 24 Hour Vital Signs Date Time Temp Pulse Resp B/P (MAP) Pulse Ox O2 Delivery O2 Flow Rate FiO2 04/17/18 08:00 74 04/17/18 08:00 97.7 77 19 147/83 98 Room Air 97.7 04/17/18 07:00 68 14 139/88 100 Room Air 04/17/18 06:00 64 14 148/97 100 Room Air 04/17/18 05:00 64 14 120/80 100 Room Air 04/17/18 04:00 65 04/17/18 04:00 97.8 64 14 109/78 100 Room Air 97.8 04/17/18 03:00 64 14 140/91 100 Room Air 04/17/18 02:00 63 14 97/74 100 Room Air 04/17/18 01:00 69 14 128/88 100 Room Air 04/17/18 00:00 77 04/17/18 00:00 98.0 68 14 92/60 96 Room Air 98.0 04/16/18 23:00 80 14 90/59 100 Room Air 04/16/18 22:00 86 15 138/79 100 Room Air 04/16/18 21:00 80 14 150/84 100 Room Air 04/16/18 20:00 80 14 128/82 100 Room Air 04/16/18 20:00 73 04/16/18 19:00 97.8 80 13 140/79 99 Room Air 97.8 04/16/18 16:00 65 04/16/18 12:00 63 Intake and Output 04/16/18 04/17/18 19:00 07:00 Intake Total 2036.8 ml 1400 ml Output Total 200 ml 250 ml Balance 1836.8 ml 1150 ml Intake Oral 200 ml 300 ml IV Total 1836.8 ml 1100 ml Output Urine Total 200 ml 250 ml # Voids 4 2 # Bowel Movements 1 Laboratory Tests 04/17/18 04:30: White Blood Count 6.4, Red Blood Count 2.75L, Hemoglobin 8.9L, Hematocrit 25.6L , Mean Corpuscular Volume 93, Mean Corpuscular Hemoglobin 32.3H, Mean Corpuscular Hemoglobin Concent 34.7, Red Cell Distribution Width 14.1, Platelet Count 252, Mean Platelet Volume 7.7, Neutrophils (%) (Auto) 44.6L, Lymphocytes ( %) (Auto) 48.8H, Monocytes (%) (Auto) 4.4, Eosinophils (%) (Auto) 1.1, Basophils (%) (Auto) 1.2, Sodium Level 140, Potassium Level 3.1L, Chloride Level 105, Carbon Dioxide Level 28, Anion Gap 7, Blood Urea Nitrogen 9, Creatinine 1.5H, Estimat Glomerular Filtration Rate 46.4, Glucose Level 141#H, Uric Acid 5.1, Calcium Level 7.9L, Phosphorus Level 2.9, Magnesium Level 1.2L, Iron Level 48L, Total Iron Binding Capacity 154L, Percent Iron Saturation 31, Unsaturated Iron Binding 106L, Ferritin 129, Total Bilirubin 0.2, Gamma Glutamyl Transpeptidase 192H, Aspartate Amino Transf (AST/SGOT) 17, Alanine Aminotransferase (ALT/SGPT) 21, Alkaline Phosphatase 163H, Total Creatine Kinase 26, Pro-B-Type Natriuretic Peptide 125, Total Protein 6.3L, Albumin 2.4L , Globulin 3.9, Albumin/Globulin Ratio 0.6L, Lipase 28L, Vitamin B12 Level 1378H , Folate 16.4, Thyroid Stimulating Hormone (TSH) 1.216 Height (Feet): 5 Height (Inches): 4.00 Weight (Pounds): 102 Emigdio Ricardo MD April 17, 2018 11:13
--- NOTE | 2018-04-17 11:30 | Pulmonolgy Critical Care Note ---
Critical Care - Asmt/Plan Problems: (1) DKA (diabetic ketoacidoses) (2) Non compliance with medical treatment (3) CIERA (acute kidney injury) (4) Intractable nausea and vomiting Respiratory: monitor respiratory rate, adjust FIO2 Cardiac: continue to monitor HR/BP Renal: F/U I&O Infectious Disease: check cultures Gastrointestinal: continue feedings/current rate Endocrine: continue sliding scale insulin Hematologic: monitor H/H Neurologic: PRN Ativan, PRN Morphine Prophylaxis: Protonix Disposition: transfer to - med/surg Notes Reviewed: cardio, renal Discussed with: nurses, consultants, cyanide case hardenercommunity marketing manager - Objective Last 24 Hour Vital Signs Date Time Temp Pulse Resp B/P (MAP) Pulse Ox O2 Delivery O2 Flow Rate FiO2 04/17/18 08:00 74 04/17/18 08:00 97.7 77 19 147/83 98 Room Air 97.7 04/17/18 07:00 68 14 139/88 100 Room Air 04/17/18 06:00 64 14 148/97 100 Room Air 04/17/18 05:00 64 14 120/80 100 Room Air 04/17/18 04:00 65 04/17/18 04:00 97.8 64 14 109/78 100 Room Air 97.8 04/17/18 03:00 64 14 140/91 100 Room Air 04/17/18 02:00 63 14 97/74 100 Room Air 04/17/18 01:00 69 14 128/88 100 Room Air 04/17/18 00:00 77 04/17/18 00:00 98.0 68 14 92/60 96 Room Air 98.0 04/16/18 23:00 80 14 90/59 100 Room Air 04/16/18 22:00 86 15 138/79 100 Room Air 04/16/18 21:00 80 14 150/84 100 Room Air 04/16/18 20:00 80 14 128/82 100 Room Air 04/16/18 20:00 73 04/16/18 19:00 97.8 80 13 140/79 99 Room Air 97.8 04/16/18 16:00 65 04/16/18 12:00 63 Status: awake Condition: critical Neck: full ROM Lungs: clear Heart: regular Abdomen: non-tender Extremities: no C/C/E Accucheck: 158 Critical Care - Subjective ROS Limited/Unobtainable: No ICU Day: 2 Condition: critical EKG Rhythm: Sinus Rhythm Fluids: NS 150 I&O: Intake and Output 04/16/18 04/17/18 19:00 07:00 Intake Total 2036.8 ml 1400 ml Output Total 200 ml 250 ml Balance 1836.8 ml 1150 ml Intake Oral 200 ml 300 ml IV Total 1836.8 ml 1100 ml Output Urine Total 200 ml 250 ml # Voids 4 2 # Bowel Movements 1 Labs: Laboratory Tests Test 04/17/18 04:30 White Blood Count 6.4 K/UL (4.8-10.8) Red Blood Count 2.75 M/UL (4.20-5.40) L Hemoglobin 8.9 G/DL (12.0-16.0) L Hematocrit 25.6 % (37.0-47.0) L Mean Corpuscular Volume 93 FL (80-99) Mean Corpuscular Hemoglobin 32.3 PG (27.0-31.0) H Mean Corpuscular Hemoglobin Concent 34.7 G/DL (32.0-36.0) Red Cell Distribution Width 14.1 % (11.6-14.8) Platelet Count 252 K/UL (150-450) Mean Platelet Volume 7.7 FL (6.5-10.1) Neutrophils (%) (Auto) 44.6 % (45.0-75.0) L Lymphocytes (%) (Auto) 48.8 % (20.0-45.0) H Monocytes (%) (Auto) 4.4 % (1.0-10.0) Eosinophils (%) (Auto) 1.1 % (0.0-3.0) Basophils (%) (Auto) 1.2 % (0.0-2.0) Sodium Level 140 MMOL/L (136-145) Potassium Level 3.1 MMOL/L (3.5-5.1) L Chloride Level 105 MMOL/L (98-107) Carbon Dioxide Level 28 MMOL/L (21-32) Anion Gap 7 mmol/L (5-15) Blood Urea Nitrogen 9 mg/dL (7-18) Creatinine 1.5 MG/DL (0.55-1.30) H Estimat Glomerular Filtration Rate 46.4 mL/min (>60) Glucose Level 141 MG/DL (74-106) #H Uric Acid 5.1 MG/DL (2.6-7.2) Calcium Level 7.9 MG/DL (8.5-10.1) L Phosphorus Level 2.9 MG/DL (2.5-4.9) Magnesium Level 1.2 MG/DL (1.8-2.4) L Iron Level 48 ug/dL (50-175) L Total Iron Binding Capacity 154 ug/dL (250-450) L Percent Iron Saturation 31 % (15-50) Unsaturated Iron Binding 106 ug/dL (112-346) L Ferritin 129 NG/ML (8-388) Total Bilirubin 0.2 MG/DL (0.2-1.0) Gamma Glutamyl Transpeptidase 192 U/L (5-85) H Aspartate Amino Transf (AST/SGOT) 17 U/L (15-37) Alanine Aminotransferase (ALT/SGPT) 21 U/L (12-78) Alkaline Phosphatase 163 U/L (46-116) H Total Creatine Kinase 26 U/L (26-308) Pro-B-Type Natriuretic Peptide 125 pg/mL (0-125) Total Protein 6.3 G/DL (6.4-8.2) L Albumin 2.4 G/DL (3.4-5.0) L Globulin 3.9 g/dL Albumin/Globulin Ratio 0.6 (1.0-2.7) L Lipase 28 U/L (73-393) L Vitamin B12 Level 1378 PG/ML (193-986) H Folate 16.4 NG/ML (8.6-58.9) Thyroid Stimulating Hormone (TSH) 1.216 uiU/mL (0.358-3.740) Fred Paz MD April 17, 2018 11:30
--- NOTE | 2018-04-17 13:16 | Nephrology Progress Note ---
Assessment/Plan Problem List: (1) ARF (acute renal failure) (2) Seizure disorder (3) Psychiatric disorder (4) Uncontrolled diabetes mellitus (5) Gastroparesis due to DM Assessment renal failure ? acute , dehydration, ? Underlying CKD due to DM Cr lower Dm , Hyperglycemia HTN SZ disorders IDDM Plan Plan; Hydrate Urine studies monitor renal parameters avoid nephrotoxics check BP and BS Subjective ROS Limited/Unobtainable: No Constitutional: Reports: malaise Objective Objective Last 24 Hour Vital Signs Date Time Temp Pulse Resp B/P (MAP) Pulse Ox O2 Delivery O2 Flow Rate FiO2 04/17/18 08:00 74 04/17/18 08:00 97.7 77 19 147/83 98 Room Air 97.7 04/17/18 07:00 68 14 139/88 100 Room Air 04/17/18 06:00 64 14 148/97 100 Room Air 04/17/18 05:00 64 14 120/80 100 Room Air 04/17/18 04:00 65 04/17/18 04:00 97.8 64 14 109/78 100 Room Air 97.8 04/17/18 03:00 64 14 140/91 100 Room Air 04/17/18 02:00 63 14 97/74 100 Room Air 04/17/18 01:00 69 14 128/88 100 Room Air 04/17/18 00:00 77 04/17/18 00:00 98.0 68 14 92/60 96 Room Air 98.0 04/16/18 23:00 80 14 90/59 100 Room Air 04/16/18 22:00 86 15 138/79 100 Room Air 04/16/18 21:00 80 14 150/84 100 Room Air 04/16/18 20:00 80 14 128/82 100 Room Air 04/16/18 20:00 73 04/16/18 19:00 97.8 80 13 140/79 99 Room Air 97.8 04/16/18 16:00 65 Intake and Output 04/16/18 04/17/18 19:00 07:00 Intake Total 2036.8 ml 1400 ml Output Total 200 ml 250 ml Balance 1836.8 ml 1150 ml Intake Oral 200 ml 300 ml IV Total 1836.8 ml 1100 ml Output Urine Total 200 ml 250 ml # Voids 4 2 # Bowel Movements 1 Laboratory Tests 04/17/18 04:30: White Blood Count 6.4, Red Blood Count 2.75L, Hemoglobin 8.9L, Hematocrit 25.6L , Mean Corpuscular Volume 93, Mean Corpuscular Hemoglobin 32.3H, Mean Corpuscular Hemoglobin Concent 34.7, Red Cell Distribution Width 14.1, Platelet Count 252, Mean Platelet Volume 7.7, Neutrophils (%) (Auto) 44.6L, Lymphocytes ( %) (Auto) 48.8H, Monocytes (%) (Auto) 4.4, Eosinophils (%) (Auto) 1.1, Basophils (%) (Auto) 1.2, Sodium Level 140, Potassium Level 3.1L, Chloride Level 105, Carbon Dioxide Level 28, Anion Gap 7, Blood Urea Nitrogen 9, Creatinine 1.5H, Estimat Glomerular Filtration Rate 46.4, Glucose Level 141#H, Uric Acid 5.1, Calcium Level 7.9L, Phosphorus Level 2.9, Magnesium Level 1.2L, Iron Level 48L, Total Iron Binding Capacity 154L, Percent Iron Saturation 31, Unsaturated Iron Binding 106L, Ferritin 129, Total Bilirubin 0.2, Gamma Glutamyl Transpeptidase 192H, Aspartate Amino Transf (AST/SGOT) 17, Alanine Aminotransferase (ALT/SGPT) 21, Alkaline Phosphatase 163H, Total Creatine Kinase 26, Pro-B-Type Natriuretic Peptide 125, Total Protein 6.3L, Albumin 2.4L , Globulin 3.9, Albumin/Globulin Ratio 0.6L, Lipase 28L, Vitamin B12 Level 1378H , Folate 16.4, Thyroid Stimulating Hormone (TSH) 1.216 Height (Feet): 5 Height (Inches): 4.00 Weight (Pounds): 102 General Appearance: no apparent distress Objective no change JACKELIN KOEHLER April 17, 2018 13:16
[2018-04-17] MEDS ORDERED: Morphine Sulfate 4mg/ml Inj IVP PRN (17:00)
[2018-04-17] MEDS ORDERED: Dyna-Hex 2% Top Sol 2oz TOPIC SCH (20:00)
[2018-04-17] MEDS ORDERED: Zolpidem 5mg tab ORAL PRN (21:00)
--- NOTE | 2018-04-17 22:00 | Progress Note ---
DATE: 04/17/2018 SUBJECTIVE: The patient's mental condition is unchanged. She still gets agitated. She has waxing and waning consciousness, confused, and not engaged during the evaluation. She has poor cognition. ASSESSMENT: 1. Encephalopathy. 2. Agitation. PLAN: I will continue the patient on Seroquel p.r.n. Jing Jaime M.D. DR: BREANNA JOB#: [id number] CC:
--- NOTE | 2018-04-17 22:45 | Cardiology Report ---
APPROVED REPORT EKG Measurement Heart [id number] Normal sinus rhythm Possible Left atrial enlargement Right superior axis deviation Pulmonary disease pattern Nonspecific T wave abnormality Abnormal ECG
--- NOTE | 2018-04-17 23:45 | Consultation ---
DATE OF CONSULTATION: 04/16/2018 HISTORY OF PRESENT ILLNESS: The patient was seen yesterday, . The patient has been agitated, moaning, not able to be engaged during the evaluation and provide any history. PAST PSYCHIATRIC HISTORY: History of psychotic disorder, anxiety, pain medication dependence . PAST MEDICAL HISTORY: Diabetes mellitus and noncompliance. SUBSTANCE ABUSE HISTORY: She has dependence on pain medication and other illicit drugs. MENTAL STATUS EXAMINATION: The patient is alert and oriented times self. Mood is irritable and angry. Affect is constricted, congruent with mood. Thought process is concrete. Thought content, no suicidal or homicidal ideation. ASSESSMENT: 1. Encephalopathy. 2. Psychotic disorder. 3. Pain medication dependence. PLAN: 1. The patient will be started on Seroquel as needed. 2. Provide the patient with supportive therapy and reality orientation. Jing Jaime M.D. DR: SIMA JOB#: [id number] CC:
[2018-04-18 06:04] LABS: BASOPHILS % (AUTO) 1.3 % (0.0-2.0); EOSINOPHILS % (AUTO) 1.5 % (0.0-3.0); HEMATOCRIT 26.3 % (37.0-47.0); HEMOGLOBIN 8.6 G/DL (12.0-16.0); LYMPHOCYTES % (AUTO) 49.3 % (20.0-45.0); MEAN CORPUSCULAR VOLUME 95 FL (80-99); MONOCYTES % (AUTO) 5.2 % (1.0-10.0); NEUTROPHILS % (AUTO) 42.7 % (45.0-75.0); PLATELET COUNT 211 K/UL (150-450); RED BLOOD COUNT 2.78 M/UL (4.20-5.40); RED CELL DISTRIBUTION WIDTH 14.3 % (11.6-14.8); WHITE BLOOD COUNT 4.9 K/UL (4.8-10.8)
[2018-04-18] MEDS: NovoLOG Insulin Flexpen SUBQ SCH ×4 (06:07→12:47)
[2018-04-18 06:13] LABS: ALANINE AMINOTRANSFERASE 25 U/L (12-78); ALBUMIN 2.7 G/DL (3.4-5.0); ALBUMIN/GLOBULIN RATIO 0.7 (1.0-2.7); ALKALINE PHOSPHATASE 175 U/L (46-116); ANION GAP 7 mmol/L (5-15); ASPARTATE AMINO TRANSFERASE 25 U/L (15-37); BILIRUBIN,TOTAL < 0.1 MG/DL (0.2-1.0); BLOOD UREA NITROGEN 9 mg/dL (7-18); CALCIUM 7.9 MG/DL (8.5-10.1); CARBON DIOXIDE 27 MMOL/L (21-32); CHLORIDE 99 MMOL/L (98-107); CREATININE 1.5 MG/DL (0.55-1.30); POTASSIUM 3.9 MMOL/L (3.5-5.1); SODIUM 133 MMOL/L (136-145)
[2018-04-18 08:00] VITALS: BP 170/68
[2018-04-18] MEDS: Heparin 5000 units/ml inj SUBQ SCH (09:00)
[2018-04-18] MEDS ORDERED: Pantoprazole Inj IVP SCH (09:00)
[2018-04-18] MEDS: Levemir Flexpen SUBQ SCH (09:00)
--- NOTE | 2018-04-18 09:20 | General Progress Note ---
Assessment/Plan Assessment/Plan S: I am ok O: appears comfortable, in Med Surge, denies pain , She wants to go home PHYSICAL EXAMINATION: GENERAL: The patient is awake, confused, and agitated. HEENT: Extraocular muscles intact. No lymphadenopathy noted. CARDIOVASCULAR: S1 and S2. No rubs or gallops. PULMONARY: Clear to auscultation bilaterally with mild upper rhonchi. ABDOMEN: Nondistended and nontender. EXTREMITIES: No edema noted with fair pedal pulses., NEuro: AO X 3 Meds: reviewed and reconciled in the chart ASSESSMENT AND PLAN: 1 . Acute kidney injury. Improving 3. Severe hyperglycemia/diabetic ketoacidosis. At this time, Algorithm insulin drip #1 has been initiated. We will also look for any source of infection with urine and blood cultures along with a urine drug screen. 4. Acute encephalopathy : resolved 5. Hypokalemia 6. DVT prophylaxsis- with heparin subq 7. HTN 8. Non compliance with medical advise Plan: supply electrolytes will monitor start Amlodipine Subjective Allergies: Coded Allergies: No Known Allergies (Verified , NONE, 04/15/18) Objective Last 24 Hour Vital Signs Date Time Temp Pulse Resp B/P (MAP) Pulse Ox O2 Delivery O2 Flow Rate FiO2 04/18/18 08:00 98.0 77 18 170/68 100 Room Air 98.0 04/17/18 20:00 97.3 74 18 128/76 95 Room Air 97.3 04/17/18 15:42 97.4 70 15 144/103 100 Room Air 97.4 04/17/18 15:00 70 13 136/86 100 Room Air 04/17/18 14:00 70 18 176/84 100 Room Air 04/17/18 13:00 77 25 160/101 91 Room Air 04/17/18 12:00 71 04/17/18 12:00 97.7 68 15 115/68 100 Room Air 97.7 04/17/18 11:00 70 15 141/84 99 Room Air 04/17/18 10:00 72 17 118/90 98 Room Air Intake and Output 04/17/18 04/18/18 19:00 07:00 Intake Total 2760 ml 1760 ml Output Total 0 ml Balance 2760 ml 1760 ml Intake Oral 1840 ml 1160 ml IV Total 900 ml 600 ml Other 20 ml Output Urine Total 0 ml # Voids 2 3 Laboratory Tests 04/18/18 05:26: White Blood Count 4.9, Red Blood Count 2.78L, Hemoglobin 8.6L, Hematocrit 26.3L , Mean Corpuscular Volume 95, Mean Corpuscular Hemoglobin 30.8, Mean Corpuscular Hemoglobin Concent 32.5, Red Cell Distribution Width 14.3, Platelet Count 211, Mean Platelet Volume 8.2, Neutrophils (%) (Auto) 42.7L, Lymphocytes ( %) (Auto) 49.3H, Monocytes (%) (Auto) 5.2, Eosinophils (%) (Auto) 1.5, Basophils (%) (Auto) 1.3, Sodium Level 133L, Potassium Level 3.9, Chloride Level 99, Carbon Dioxide Level 27, Anion Gap 7, Blood Urea Nitrogen 9, Creatinine 1.5H, Estimat Glomerular Filtration Rate 46.4, Glucose Level 285#H, Calcium Level 7.9L, Phosphorus Level 3.0, Magnesium Level 1.7L, Total Bilirubin < 0.1L, Aspartate Amino Transf (AST/SGOT) 25, Alanine Aminotransferase (ALT/SGPT ) 25, Alkaline Phosphatase 175H, Total Protein 6.5, Albumin 2.7L, Globulin 3.8, Albumin/Globulin Ratio 0.7L Height (Feet): 5 Height (Inches): 4.00 Weight (Pounds): 108 Emigdio Ricardo MD April 18, 2018 09:20
--- NOTE | 2018-04-18 11:01 | Nephrology Progress Note ---
Assessment/Plan Problem List: (1) ARF (acute renal failure) (2) Seizure disorder (3) Psychiatric disorder (4) Uncontrolled diabetes mellitus (5) Gastroparesis due to DM Assessment renal failure ? acute , dehydration, ? Underlying CKD due to DM Cr lower Dm , Hyperglycemia HTN SZ disorders IDDM Plan Plan; Hydrate Urine studies monitor renal parameters avoid nephrotoxics check BP and BS Subjective ROS Limited/Unobtainable: No Constitutional: Reports: malaise Objective Objective Last 24 Hour Vital Signs Date Time Temp Pulse Resp B/P (MAP) Pulse Ox O2 Delivery O2 Flow Rate FiO2 04/18/18 08:00 98.0 77 18 170/68 100 Room Air 98.0 04/17/18 20:00 97.3 74 18 128/76 95 Room Air 97.3 04/17/18 15:42 97.4 70 15 144/103 100 Room Air 97.4 04/17/18 15:00 70 13 136/86 100 Room Air 04/17/18 14:00 70 18 176/84 100 Room Air 04/17/18 13:00 77 25 160/101 91 Room Air 04/17/18 12:00 71 04/17/18 12:00 97.7 68 15 115/68 100 Room Air 97.7 Intake and Output 04/17/18 04/18/18 19:00 07:00 Intake Total 2760 ml 1760 ml Output Total 0 ml Balance 2760 ml 1760 ml Intake Oral 1840 ml 1160 ml IV Total 900 ml 600 ml Other 20 ml Output Urine Total 0 ml # Voids 2 3 Laboratory Tests 04/18/18 05:26: White Blood Count 4.9, Red Blood Count 2.78L, Hemoglobin 8.6L, Hematocrit 26.3L , Mean Corpuscular Volume 95, Mean Corpuscular Hemoglobin 30.8, Mean Corpuscular Hemoglobin Concent 32.5, Red Cell Distribution Width 14.3, Platelet Count 211, Mean Platelet Volume 8.2, Neutrophils (%) (Auto) 42.7L, Lymphocytes ( %) (Auto) 49.3H, Monocytes (%) (Auto) 5.2, Eosinophils (%) (Auto) 1.5, Basophils (%) (Auto) 1.3, Sodium Level 133L, Potassium Level 3.9, Chloride Level 99, Carbon Dioxide Level 27, Anion Gap 7, Blood Urea Nitrogen 9, Creatinine 1.5H, Estimat Glomerular Filtration Rate 46.4, Glucose Level 285#H, Calcium Level 7.9L, Phosphorus Level 3.0, Magnesium Level 1.7L, Total Bilirubin < 0.1L, Aspartate Amino Transf (AST/SGOT) 25, Alanine Aminotransferase (ALT/SGPT ) 25, Alkaline Phosphatase 175H, Total Protein 6.5, Albumin 2.7L, Globulin 3.8, Albumin/Globulin Ratio 0.7L Height (Feet): 5 Height (Inches): 4.00 Weight (Pounds): 108 General Appearance: no apparent distress Objective no change JACKELIN KOEHLER April 18, 2018 11:01
[2018-04-18 13:00] VITALS: BP 175/111
--- NOTE | 2018-04-18 13:02 | Pulmonology Progress Note ---
Assessment/Plan Problems: (1) Gastroparesis due to DM (2) Intractable nausea and vomiting (3) DKA (diabetic ketoacidoses) Assessment/Plan improving cleared by Endo to go home Subjective ROS Limited/Unobtainable: No Constitutional: Reports: no symptoms HEENT: Repors: no symptoms Allergies: Coded Allergies: No Known Allergies (Verified , NONE, 04/15/18) Objective Last 24 Hour Vital Signs Date Time Temp Pulse Resp B/P (MAP) Pulse Ox O2 Delivery O2 Flow Rate FiO2 04/18/18 08:00 98.0 77 18 170/68 100 Room Air 98.0 04/17/18 20:00 97.3 74 18 128/76 95 Room Air 97.3 04/17/18 15:42 97.4 70 15 144/103 100 Room Air 97.4 04/17/18 15:00 70 13 136/86 100 Room Air 04/17/18 14:00 70 18 176/84 100 Room Air Intake and Output 04/17/18 04/18/18 19:00 07:00 Intake Total 2760 ml 1760 ml Output Total 0 ml Balance 2760 ml 1760 ml Intake Oral 1840 ml 1160 ml IV Total 900 ml 600 ml Other 20 ml Output Urine Total 0 ml # Voids 2 3 General Appearance: WD/WN HEENT: atraumatic Respiratory/Chest: chest wall non-tender, lungs clear Cardiovascular: normal peripheral pulses, normal rate Abdomen: normal bowel sounds, soft, non tender Genitourinary: normal external genitalia Neurologic/Psychiatric: associate professor of automation II-XII grossly normal Laboratory Tests 04/18/18 05:26: White Blood Count 4.9, Red Blood Count 2.78L, Hemoglobin 8.6L, Hematocrit 26.3L , Mean Corpuscular Volume 95, Mean Corpuscular Hemoglobin 30.8, Mean Corpuscular Hemoglobin Concent 32.5, Red Cell Distribution Width 14.3, Platelet Count 211, Mean Platelet Volume 8.2, Neutrophils (%) (Auto) 42.7L, Lymphocytes ( %) (Auto) 49.3H, Monocytes (%) (Auto) 5.2, Eosinophils (%) (Auto) 1.5, Basophils (%) (Auto) 1.3, Sodium Level 133L, Potassium Level 3.9, Chloride Level 99, Carbon Dioxide Level 27, Anion Gap 7, Blood Urea Nitrogen 9, Creatinine 1.5H, Estimat Glomerular Filtration Rate 46.4, Glucose Level 285#H, Calcium Level 7.9L, Phosphorus Level 3.0, Magnesium Level 1.7L, Total Bilirubin < 0.1L, Aspartate Amino Transf (AST/SGOT) 25, Alanine Aminotransferase (ALT/SGPT ) 25, Alkaline Phosphatase 175H, Total Protein 6.5, Albumin 2.7L, Globulin 3.8, Albumin/Globulin Ratio 0.7L Current Medications Medications (Trade) Dose Ordered Sig/Mateo Route PRN Reason Start Time Stop Time Status Last Admin Dose Admin Amlodipine Besylate (Norvasc) 5 mg DAILY ORAL 04/18/18 10:00 05/18/18 09:59 Chlorhexidine Gluconate (Mara-Hex 2%) 1 applic DAILY@2000 TOPIC 04/17/18 20:00 05/16/18 19:59 04/17/18 20:29 Clonidine HCl (Catapres Tab) 0.1 mg Q6H PRN ORAL SBP>175 04/18/18 10:00 05/18/18 09:59 Dextrose (Dextrose 50%) 25 ml STAT PRN IV Hypoglycemia 04/17/18 17:00 05/16/18 16:59 Dextrose (Dextrose 50%) 50 ml STAT PRN IV Hypoglycemia 04/17/18 17:00 05/16/18 16:59 Diphenhydramine HCl (Benadryl) 25 mg Q6H PRN ORAL Itching 04/18/18 10:00 05/18/18 09:59 Heparin Sodium (Porcine) (Heparin 5000 units/ml) 5,000 units EVERY 12 HOURS SUBQ 04/17/18 21:00 05/16/18 08:59 04/17/18 20:30 Insulin Aspart (NovoLOG) BEFORE MEALS AND HS SUBQ 04/17/18 17:30 05/16/18 17:29 04/18/18 12:47 Insulin Aspart (NovoLOG) 5 units NOVOTIAC SUBQ 04/17/18 17:50 05/17/18 17:49 04/18/18 12:47 Insulin Detemir (Levemir) 10 units Q12HR SUBQ 04/17/18 21:00 05/16/18 20:59 04/17/18 20:33 Metoclopramide HCl (Reglan) 5 mg THREE TIMES A DAY ORAL 04/17/18 18:00 05/16/18 17:59 04/17/18 17:36 Morphine Sulfate (Morphine Sulfate) 2 mg Q8H PRN IVP For Pain 04/17/18 17:00 04/23/18 16:59 Pantoprazole (Protonix) 40 mg DAILY IVP 04/18/18 09:00 05/16/18 08:59 Quetiapine Fumarate (SEROquel) 25 mg Q6H PRN ORAL For Anxiety 04/17/18 17:00 05/17/18 16:59 Sodium Chloride 1,000 ml @ 50 mls/hr Q20H IV 04/17/18 18:45 05/16/18 18:44 04/17/18 17:36 Zolpidem Tartrate (Ambien) 5 mg HSPRN PRN ORAL Insomnia 04/17/18 21:00 04/23/18 20:59 04/17/18 20:29 Fred Paz MD April 18, 2018 13:02
[2018-04-18 13:12] VITALS: BP 175/111
[2018-04-18] MEDS ORDERED: Levemir Flexpen SUBQ ONE (14:00)
[2018-04-18] MEDS ORDERED: D5NS 1000ml IV ONE (15:18)
[2018-04-18] MEDS ORDERED: D5 1/2NS 1000ml IV ONE (15:18)
[2018-04-18] MEDS ORDERED: Tubing IV Secondary IV ONE (15:18)
[2018-04-18] MEDS ORDERED: NS 275ml ONE (15:18)
--- NOTE | 2018-04-19 08:52 | Consultation ---
History of Present Illness General Chief Complaint: Abnormal Labs Present Illness Allergies: Coded Allergies: No Known Allergies (Verified , NONE, 04/15/18) Medication History Scheduled Amlodipine Besylate (Norvasc), 5 MG ORAL Q12HR, (Reported) Amlodipine Besylate (Norvasc), 5 MG ORAL DAILY, (Reported) Aspirin* (Aspirin*), 81 MG ORAL DAILY Calcium Carbonate (Calcium Carbonate), 500 MG PO DAILY, (Reported) Clonazepam (Clonazepam), 1 MG ORAL DAILY Clonidine Hcl* (Catapres*), 0.1 MG ORAL EVERY 6 HOURS, (Reported) Clonidine Hcl* (Catapres*), 0.1 MG ORAL EVERY 6 HOURS, (Reported) Divalproex Sodium (Divalproex Sodium Er), 1,500 MG ORAL QHS Divalproex Sodium* (Depakote Er*), 250 MG ORAL EVERY 12 HOURS, (Reported) Fluconazole (Fluconazole), 200 MG ORAL DAILY Insulin Aspart* (Novolog*), 0 SUBQ BEFORE MEALS AND HS, (Reported) Insulin Detemir (Levemir Flexpen), 10 UNITS SUBQ Q12HR Ranitidine Hcl* (Zantac*), 150 MG ORAL TWICE A DAY, (Reported) Scheduled PRN Ondansetron* (Zofran*), 4 MG ORAL Q6H PRN Miscellaneous Medications Hydroxyzine Pamoate (Hydroxyzine Pamoate), 25 MG PO, (Reported) Insulin Aspart* (Novolog*), 0 SUBQ, (Reported) Insulin Detemir (Levemir Flexpen), 0 SUBQ, (Reported) Unable to Obtain Medications (Unable To Obtain Meds), (Reported) Unable to Obtain Medications (Unable To Obtain Meds), (Reported) Patient History Healthcare decision maker Resuscitation status Full Code Advanced Directive on File No Physical Exam Last 24 Hour Vital Signs Date Time Temp Pulse Resp B/P (MAP) Pulse Ox O2 Delivery O2 Flow Rate FiO2 04/18/18 13:12 84 175/111 04/18/18 13:00 98.1 84 18 175/111 100 Room Air 98.1 Intake and Output 04/18/18 04/19/18 19:00 07:00 Intake Total 50 ml Balance 50 ml IV Total 50 ml Height (Feet): 5 Height (Inches): 4.00 Weight (Pounds): 108 Carpenter ,Cailin DIRECTOR OF FIELD SERVICE April 19, 2018 08:52
--- NOTE | 2018-04-19 08:58 | Discharge Summary ---
Discharge Summary Hospital Course Date of Admission April 16, 2018 at 02:36 Date of Discharge April 18, 2018 at 15:19 Admitting Diagnosis HYPERGLYCEMIA,UNCONTROLLED DIABETES HPI Amaay Wallis is a 43 year old female who was admitted on April 16, 2018 at 02: 36 for Hyperglycemia,Uncontrolled Diabtes Hospital Course dc summary #[id number] Discharge Medications Continued Medications: Amlodipine Besylate (Norvasc) 5 Mg Tablet 5 MG ORAL Q12HR, TAB (This prescription has been renewed) Aspirin* (Aspirin*) 81 Mg Tab.chew 81 MG ORAL DAILY, #30 TAB Clonazepam (Clonazepam) 1 Mg Tablet 1 MG ORAL DAILY, #15 TAB Divalproex Sodium (Divalproex Sodium Er) 500 Mg Tab.er.24h 1500 MG ORAL QHS, #30 TAB Fluconazole (Fluconazole) 100 Mg Tablet 200 MG ORAL DAILY, #3 TAB 0 Refills Insulin Detemir (Levemir Flexpen) 100 Unit/1 Ml Insuln.pen 10 UNITS SUBQ Q12HR, #1 SYR Ondansetron* (Zofran*) 4 Mg Tablet 4 MG ORAL Q6H PRN, #20 TAB Discharge Condition Upon Discharge: stable Discharge Disposition Patient was discharged to Home () Discharge Instructions Discharge Instructions Special Instructions I have been assigned to complete a D/C Summary on this account. I was not involved in the patient management Cailni Carpenter NP April 19, 2018 08:58
--- NOTE | 2018-04-20 04:00 | Discharge Summary 2 SIG ---
DATE OF ADMISSION: 04/16/2018 DATE OF DISCHARGE: 04/18/2018 REASON FOR ADMISSION: 43-year-old female with a past medical history significant for diabetes mellitus type 1, poorly controlled with recurrent DKA, hypertension, seizure disorder, chronic kidney disease, gastroparesis, seizure disorder, history of CVA, presented to the emergency room by paramedics. The patient was found to have elevated blood sugar and was brought for evaluation. Upon evaluation, vital signs were stable. Sodium 123. Potassium 4.2. Blood glucose 1178. Anion gap 9. CO2 30, BUN 15, creatinine 2.5. Urinalysis revealed no evidence of UTI. No evidence of ketones, +4 glucose, hemoglobin 11.0, and hematocrit 25.3. No leukocytosis. The patient was admitted with diagnoses of severe hyperglycemia, diabetes mellitus type 1 out of control, acute kidney injury, hyponatremia, acute encephalopathy. CONSULTANTS: 1. Endocrinology, Bertin Alejo M.D. 2. Account Management Assistant, Joel Aguilar M.D. 3. Metal Spinner, Fred Paz M.D. 4. Psychiatrist, Jing Jaime M.D. HOSPITAL COURSE: Initially, in the emergency department, the patient was started on the IV fluids and IV insulin. Phone Specialist was consulted. Per director of market analysis, insulin drip was discontinued. The patient had no evidence of acidosis. Potassium was stable. The patient started on long-acting Levemir, premeal insulin and sliding scale of insulin as needed. Hemoglobin A1c 11.3, clearly not at goal. The patient was not compliant with medication regimen at home. With current treatment blood sugar stabilized. The patient was strongly encouraged and counseled on compliance with anti-glycemic medication regimen. The patient was on aggressive IV hydration. Account Management Assistant closely followed. Renal parameters and electrolytes were closely monitored. Electrolytes were corrected as needed. Nephrotoxins were avoided. Creatinine from 2.5 down to 1.5. The patient with chronic renal insufficiency due to poorly controlled diabetes. Acute kidney injury resolved. Sodium from 123 up to 133. Hyponatremia was at least partially pseudohyponatremia due to severely elevated blood sugar. Sodium improved. Acute encephalopathy was likely secondary to severe hyperglycemia and resolved. Psychiatrist closely followed the patient and diagnosed the patient with agitation. Reality orientation and supportive therapy provided. The patient was on Seroquel on an as-needed basis. Seizure precautions were maintained. No seizure activity while in the hospital. Depakote was continued. Blood pressure was managed with calcium-channel penelope and clonidine on an as-needed basis. Blood pressure was stable. Reglan was provided around the clock, and Zofran was on the board as needed. The patient was able to tolerate diet. The patient's condition stabilized. The patient was stable for discharge home. The patient was strongly encouraged on compliance with medication regimen. DISCHARGE DIAGNOSES: 1. Acute renal failure on chronic renal insufficiency due to diabetes mellitus. 2. Dehydration. 3. Severe hyperglycemia. 4. Diabetes mellitus, type 1, out of control. 5. Acute encephalopathy, likely secondary to severe hyperglycemia, resolved. 6. Gastroparesis secondary to diabetes mellitus. 7. Agitation. 8. Hyponatremia. 9. Seizure disorder. 10. Hypertension. DISCHARGE MEDICATIONS: See medication reconciliation list. DISCHARGE INSTRUCTIONS: The patient was discharged home. The patient to follow up with the primary care provider in one week. The patient was strongly encouraged and counseled on compliance with medication regimen. Emigdio Ricardo M.D. I have been assigned to dictate discharge summary on this account and I was not involved in the patient's management. Cailin UribeKings Park Psychiatric CenterJulian N.PHafsa DR: SOFYA JOB#: [id number] CC: ALICIA
--- NOTE | 2018-04-20 10:15 | Geriatric Medicine Prog Note ---
DATE: 04/18/2018 SUBJECTIVE: The patient was ready discharge at this morning OBJECTIVE: VITAL SIGNS: Stable. RESPIRATORY: Clear. CVS: Regular. LABORATORY DATA: Glucose 364. PLAN: compliance with medications, stable for discharge after 10 units of Levemir was given. She will be followed by primary physician as an outpatient. Pablo Early M.D. DR: HOMER JOB#: [id number] CC:
== END 2018-04-18 15:19 | disposition home or self-care (01) | DRG 420 ==
LOC: EDBD 23:21 → EMR 23:49 → EDBEDREQ 04-16 02:14 → EDBEDREQSVC 04-16 02:14 → ICU 04-16 02:36 → EDBEDREQ 04-16 02:58 → 4E 04-17 16:00
DX: E10.10 Type 1 diabetes mellitus with ketoacidosis without coma (principal); G93.40 Encephalopathy, unspecified; N17.9 Acute kidney failure, unspecified; E10.22 Type 1 diabetes mellitus with diabetic chronic kidney disease; K31.84 Gastroparesis; E86.0 Dehydration; I12.9 Hypertensive chronic kidney disease with stage 1 through stage 4 chronic kidney disease, or unspecified chronic kidney disease; N18.9 Chronic kidney disease, unspecified; G40.909 Epilepsy, unspecified, not intractable, without status epilepticus; E87.6 Hypokalemia; E87.1 Hypo-osmolality and hyponatremia; E10.43 Type 1 diabetes mellitus with diabetic autonomic (poly)neuropathy; Z79.4 Long term (current) use of insulin; Z91.14 Patient's other noncompliance with medication regimen
CPT/HCPCS: 36415; 36569; 36600; 76937; 80053; 80061; 81003; 82009; 82550; 82607; 82728; 82746; 82803; 82962; 82977; 83036; 83540; 83550; 83690; 83735; 83880; 84100; 84443; 84484; 84550; 85025; 86140; 93005; 99291; J1815; S5561

== ENCOUNTER 2018-04-29 16:38 | Emergency (ER) | payer OTHER ==
[~2018-04-29] VITALS: Ht 162.6 cm; Wt 45.4 kg
[2018-04-29 16:40] VITALS: BP 112/62
--- NOTE | 2018-04-29 17:43 | Emergency Room Report ---
History of Present Illness General Chief Complaint: Abnormal Labs Source: Patient, Medical Record Present Illness HPI Patient has a history of insulin-dependent dependent diabetes. Patient was recently admitted to the hospital for hyperglycemia. Patient was discharged. Apparently patient was found altered by her mother and 911 was called. Patient was noted to have low blood sugar. On arrival patient symptoms appear improved. Patient received one dose of glucagon prior to arrival. Patient was given food. Patient was not very friendly nor was she able to or willing to provide much history. Therefore patient history was limited much of this history was obtained from medical records. Symptoms noted to be severe.No other modifying factors. No other associated signs and symptoms. No other complaints were noted. Allergies: Coded Allergies: No Known Allergies (Verified , NONE, 04/15/18) Patient History Past Medical History: DM, HTN, CAD Past Surgical History: none Pertinent Family History: none Social History: Denies: smoking, alcohol use, drug use Reviewed Nursing Documentation: PMH: Agreed; PSxH: Agreed Nursing Documentation-PMH Past Medical History: No History, Except For Hx Cardiac Problems: Yes Hx Hypertension: Yes Hx Pacemaker: No Hx Asthma: No Hx COPD: No Hx Diabetes: Yes Hx Cancer: No Hx Gastrointestinal Problems: Yes Hx Neurological Problems: Yes Hx Cerebrovascular Accident: Yes Hx Seizures: Yes Hx Vertigo: Yes Hx Dizziness: Yes Hx Headaches: Yes Hx Weakness: Yes Hx Fatigue: Yes Hx Neurologic Surgery: No Review of Systems All Other Systems: negative except mentioned in HPI Physical Exam Vital Signs Date Time Temp Pulse Resp B/P (MAP) Pulse Ox O2 Delivery O2 Flow Rate FiO2 04/29/18 16:35 98.8 64 12 91/64 98 Room Air 98.8 Sp02 EP Interpretation: reviewed, normal General Appearance: alert, mild distress Head: atraumatic Eyes: bilateral eye normal inspection ENT: normal ENT inspection, hearing grossly normal, normal voice Neck: normal inspection, full range of motion, supple, no bony tend Respiratory: normal inspection, lungs clear, normal breath sounds, no respiratory distress, no retraction, no wheezing Cardiovascular #1: regular rate, rhythm, no edema Gastrointestinal: normal inspection, normal bowel sounds, non tender, soft, no guarding, no hernia Genitourinary: no CVA tenderness Musculoskeletal: normal inspection, back normal, normal range of motion Neurologic: normal inspection, alert, responsive, speech normal Psychiatric: normal inspection, judgement/insight normal, mood/affect normal Skin: normal inspection, normal color, no rash Procedures Additional Procedure Procedure Narrative Left external jugular peripheral IV was placed by myself. This was performed sterilely. Patient agreed to the procedure and consented verbally. 20-gauge catheter was placed in patient's left external jugular. Patient tolerated procedure well difficulty. Initial attempt at the procedure on the right external jugular was unfortunately unsuccessful as the IV infiltrated. I was called to bedside again. Unfortunately patient had dislodge her left external jugular peripheral IV. Patient gave consent to place a right peripheral IV in the right external jugular. Right external jugular area was prepped in a sterile manner. Using a 20-gauge needle I was able to puncture the right external jugular vein. The peripheral IV was placed without difficulty. Patient tolerate procedure without difficulty. Medical Decision Making Diagnostic Impression: Primary Impression: Altered level of consciousness Additional Impressions: Hypoglycemia CIERA (acute kidney injury) ER Course Patient presents emergency department today with acute altered mental status. Differential diagnoses include hypoglycemia, hyperglycemia, dehydration just to name a few.Given the severity of the patient's presentation I felt this is a highly complex patient. This patient required extensive workup. Patient's laboratory workup shows evidence of acute renal injury patient appeared dehydrated. Patient's glucose was appropriate. Patient was given food. Patient was given fluid bolus. Given patient's presentation difficulty with controlling sugar I felt the patient is very tenuous and will require admission. Case was discussed with Dr. Mazariegos at [facility]. Patient will be transferred there for further treatment. Labs Test 04/29/18 17:50 White Blood Count 12.8 K/UL (4.8-10.8) Red Blood Count 3.06 M/UL (4.20-5.40) Hemoglobin 10.1 G/DL (12.0-16.0) Hematocrit 28.7 % (37.0-47.0) Mean Corpuscular Volume 94 FL (80-99) Mean Corpuscular Hemoglobin 33.0 PG (27.0-31.0) Mean Corpuscular Hemoglobin Concent 35.2 G/DL (32.0-36.0) Red Cell Distribution Width 13.8 % (11.6-14.8) Platelet Count 201 K/UL (150-450) Mean Platelet Volume 9.1 FL (6.5-10.1) Neutrophils (%) (Auto) 69.5 % (45.0-75.0) Lymphocytes (%) (Auto) 25.8 % (20.0-45.0) Monocytes (%) (Auto) 4.0 % (1.0-10.0) Eosinophils (%) (Auto) 0.3 % (0.0-3.0) Basophils (%) (Auto) 0.5 % (0.0-2.0) Sodium Level 137 MMOL/L (136-145) Potassium Level 3.7 MMOL/L (3.5-5.1) Chloride Level 98 MMOL/L (98-107) Carbon Dioxide Level 32 MMOL/L (21-32) Anion Gap 7 mmol/L (5-15) Blood Urea Nitrogen 17 mg/dL (7-18) Creatinine 2.3 MG/DL (0.55-1.30) Estimat Glomerular Filtration Rate 28.4 mL/min (>60) Glucose Level 226 MG/DL (74-106) Calcium Level 9.0 MG/DL (8.5-10.1) Total Bilirubin 0.2 MG/DL (0.2-1.0) Aspartate Amino Transf (AST/SGOT) 15 U/L (15-37) Alanine Aminotransferase (ALT/SGPT) 24 U/L (12-78) Alkaline Phosphatase 208 U/L (46-116) Total Protein 7.2 G/DL (6.4-8.2) Albumin 2.9 G/DL (3.4-5.0) Globulin 4.3 g/dL Albumin/Globulin Ratio 0.7 (1.0-2.7) Lipase 25 U/L (73-393) Last Vital Signs Date Time Temp Pulse Resp B/P (MAP) Pulse Ox O2 Delivery O2 Flow Rate FiO2 04/29/18 16:35 98.8 64 12 91/64 98 Room Air 98.8 Status: improved Disposition: XFER SHT-TRM HOSP Condition: Serious Referrals: [facility],REFERRING (PCP) Imer Bertrand MD Apr 29, 2018 17:43
[2018-04-29 18:09] LABS: BASOPHILS % (AUTO) 0.5 % (0.0-2.0); EOSINOPHILS % (AUTO) 0.3 % (0.0-3.0); HEMATOCRIT 28.7 % (37.0-47.0); HEMOGLOBIN 10.1 G/DL (12.0-16.0); LYMPHOCYTES % (AUTO) 25.8 % (20.0-45.0); MEAN CORPUSCULAR VOLUME 94 FL (80-99); NEUTROPHILS % (AUTO) 69.5 % (45.0-75.0); PLATELET COUNT 201 K/UL (150-450); RED BLOOD COUNT 3.06 M/UL (4.20-5.40); RED CELL DISTRIBUTION WIDTH 13.8 % (11.6-14.8); WHITE BLOOD COUNT 12.8 K/UL (4.8-10.8)
[2018-04-29 18:22] LABS: ANION GAP 7 mmol/L (5-15); BLOOD UREA NITROGEN 17 mg/dL (7-18); CARBON DIOXIDE 32 MMOL/L (21-32); CHLORIDE 98 MMOL/L (98-107); CREATININE 2.3 MG/DL (0.55-1.30); POTASSIUM 3.7 MMOL/L (3.5-5.1); SODIUM 137 MMOL/L (136-145)
[2018-04-29 18:26] LABS: ALANINE AMINOTRANSFERASE 24 U/L (12-78); ALBUMIN 2.9 G/DL (3.4-5.0); ALBUMIN/GLOBULIN RATIO 0.7 (1.0-2.7); ALKALINE PHOSPHATASE 208 U/L (46-116); ASPARTATE AMINO TRANSFERASE 15 U/L (15-37); BILIRUBIN,TOTAL 0.2 MG/DL (0.2-1.0)
[2018-04-29 18:40] VITALS: BP 115/62
[2018-04-29] MEDS ORDERED: Potassium Chloride 10 MEQ in D5 1/2NS 1,000 ML IV SCH (20:00)
[2018-04-29 20:08] VITALS: BP 99/64
== END 2018-04-29 20:10 | disposition short-term general hospital (02) ==
LOC: EDBD 16:38 → EMR 16:51 → EDBEDREQ 18:24 → EMR 20:10
DX: Z79.4 Long term (current) use of insulin (principal); R41.82 Altered mental status, unspecified; E11.649 Type 2 diabetes mellitus with hypoglycemia without coma; N17.9 Acute kidney failure, unspecified; I10 Essential (primary) hypertension; I25.10 Atherosclerotic heart disease of native coronary artery without angina pectoris; Z86.73 Personal history of transient ischemic attack (TIA), and cerebral infarction without residual deficits
CPT/HCPCS: 36415; 80053; 82962; 83690; 85025; 87081; 99285; J3480